=== PATIENT | female | born 1945 | race Caucasian/White ===

== ENCOUNTER 2020-01-05 20:38 | Inpatient (IN) | payer MEDICARE ==
[2020-01-05] MEDS ORDERED: NALOXONE 0.4 MG/ML 1 ML VIAL IV PRN (21:34)
--- NOTE | 2020-01-05 21:34 | ED ---
General Adult HPI - General Chief complaint: Shortness of Breath Stated complaint: SOB Time Seen by Provider: 01/05/20 20:51 Source: patient, RN notes reviewed, old records reviewed (Reviewed report from [facility]) Mode of arrival: ambulatory Limitations: no limitations - History of Present Illness Initial comments: Patient is a pleasant 74-year-old female presenting to the emergency Department as a transfer from [facility] for shortness of breath. Patient was diagnosed with [place]. Patient reportedly had a normal chest x-ray and hypoxia. Patient is a poor historian and provides very little information. Patient states she is breathing fine at this time and denies complaints. - Related Data Allergies Allergy/AdvReac Type Severity Reaction Status Date / Time No Known Allergies Allergy Verified 01/05/20 20:46 Review of Systems ROS Statement: Those systems with pertinent positive or pertinent negative responses have been documented in the HPI. ROS Other: All systems not noted in ROS Statement are negative. Constitutional: Denies: fever Eyes: Denies: eye pain ENT: Denies: ear pain Respiratory: Reports: as per HPI Cardiovascular: Denies: chest pain Endocrine: Reports: fatigue Gastrointestinal: Denies: abdominal pain Genitourinary: Denies: dysuria Musculoskeletal: Denies: back pain Skin: Denies: rash Neurological: Denies: weakness Past Medical History Past Medical History: Hyperlipidemia, Hypertension History of Any Multi-Drug Resistant Organisms: None Reported Past Surgical History: No Surgical Hx Reported Past Psychological History: No Psychological Hx Reported Smoking Status: Never smoker Past Alcohol Use History: None Reported Past Drug Use History: None Reported General Exam Limitations: no limitations General appearance: alert, in no apparent distress Head exam: Present: normocephalic Eye exam: Present: normal appearance Neck exam: Present: normal inspection Respiratory exam: Present: normal lung sounds bilaterally Cardiovascular Exam: Present: regular rate, normal rhythm GI/Abdominal exam: Present: soft. Absent: tenderness Extremities exam: Present: normal inspection. Absent: pedal edema, calf tenderness Neurological exam: Present: alert Expanded Patient oriented to: Present: person. Absent: place Psychiatric exam: Present: flat affect Skin exam: Present: normal color Course Vital Signs 01/05/20 01/05/20 20:46 20:53 Temperature 98 F Pulse Rate 68 Respiratory 16 18 Rate Blood Pressure 149/71 O2 Sat by Pulse 98 Oximetry Medical Decision Making - Medical Decision Making Patient updated. Practitioner Cally was notified for admission, who will admit covering for Dr. Paez, covering for hospital call. Disposition Clinical Impression: COVID-19 Disposition: ADMITTED IP TO THIS HOSP Condition: Serious Is patient prescribed a controlled substance at d/c from ED?: No Referrals: None,Stated [Primary Care Provider] - 1-2 days Decision Time: 21:34
[2020-01-05] MEDS ORDERED: ASPIRIN 81 MG PO STA (21:42)
[2020-01-05] MEDS: ASCORBIC ACID 500 MG TAB PO SCH (22:15)
[2020-01-05] MEDS: CHOLECALCIFEROL 1,000 UNIT TAB PO SCH (22:15)
[2020-01-05] MEDS: ZINC SULFATE 220 MG CAP PO SCH (22:15)
[2020-01-05] MEDS: SODIUM CHLORIDE 0.9% 1,000 ML IV SCH (22:15)
--- NOTE | 2020-01-05 22:30 | XR ---
EXAMINATION TYPE: XR chest 1V portable DATE OF EXAM: 01/05/2020 COMPARISON: 01/05/2020 HISTORY: Pneumonia TECHNIQUE: FINDINGS: There is some patchy peripheral bilateral pulmonary interstitial infiltrates. Heart is top normal in size. There is no definite heart failure. There are chest leads. There is significant arthr itic change in the shoulder joints. Thoracic aorta is atheromatous. IMPRESSION: Peripheral patchy interstitial and airspace pulmonary infiltrates unchanged or slightly w orse than exam earlier today.
[2020-01-05 23:08] LABS: C Reactive Protein 301.3 mg/L (<10.0)
[2020-01-06] MEDS ORDERED: ALBUTEROL HFA INHALER INHALATION SCH (02:00)
[2020-01-06] MEDS: NITROGLYCERIN OINT 1 INCH/GM PACKET TOPICAL SCH ×2 (02:10→09:14)
[2020-01-06] MEDS ORDERED: ENOXAPARIN 30 MG/0.3 ML SYRINGE SQ SCH (09:00)
[2020-01-06] MEDS ORDERED: ASPIRIN 325 MG TAB PO SCH (09:00)
[2020-01-06] MEDS: ASCORBIC ACID 500 MG TAB PO SCH ×2 (09:14→20:47)
[2020-01-06] MEDS: CHOLECALCIFEROL 1,000 UNIT TAB PO SCH (09:14)
[2020-01-06] MEDS: dexAMETHasone 2 MG TAB PO SCH (09:15)
[2020-01-06] MEDS: ZINC SULFATE 220 MG CAP PO SCH (09:15)
[2020-01-06 09:24] LABS: Calcium 8.7 mg/dL (8.4-10.2); Potassium 4.4 mmol/L (3.5-5.1); Total Protein 5.5 g/dL (6.3-8.2)
[2020-01-06 09:44] LABS: Appearance,Urine Cloudy (Clear); Bacteria,Urine Few /hpf; Bilirubin,Urine Negative (Negative); Blood,Urine Negative (Negative); Color,Urine Yellow; Glucose,Urine (UA) Negative (Negative); Ketones,Urine Negative (Negative); Leukocyte Esterase,Urine Moderate (Negative); Mucus,Urine Rare /hpf; Nitrite,Urine Negative (Negative); PH, Urine 5.5 (5.0-8.0); Protein,Urine 2+ (Negative); RBC,Urine 7 /hpf (0-5); Specific Gravity,Urine 1.019 (1.001-1.035); Squamous Epithelial Cell,Urine <1 /hpf (0-4); Urobilinogen,Urine <2.0 mg/dL (<2.0); WBC,Urine 21 /hpf (0-5)
[2020-01-06 10:02] LABS: HCT 34.5 % (34.0-46.0); HGB 11.4 gm/dL (11.4-16.0); MCH 30.9 pg (25.0-35.0); MCHC 32.9 g/dL (31.0-37.0); Mean Platelet Volume 8.2; Platelet Count 192 k/uL (150-450); RBC 3.67 m/uL (3.80-5.40); RDW 13.5 % (11.5-15.5); WBC 10.6 k/uL (3.8-10.6)
[2020-01-06 10:26] LABS: Band Neutrophils % 3 %; Lymphocytes # (M) 0.53 k/uL (1.0-4.8); Monocytes # (M) 0.42 k/uL (0-1.0); Neutrophils % (M) 88 %; Nucleated Red Blood Cells 0 /100 WBC (0-0); Total Cells Counted 100
[2020-01-06] MEDS ORDERED: cloNIDine HCL 0.2 MG TAB PO SCH (11:00)
--- NOTE | 2020-01-06 11:26 | P.CRDCN ---
History of Present Illness Consult date: 01/06/20 History of present illness: CHIEF COMPLAINT: elevated troponins HISTORY OF PRESENT ILLNESS: This is a 74-year old female with a past medical history significant for hypertension and hyperlipidemia. Patient lives in [place], [place]. She states she does not follow with a md physician dermatologist outpatient. We have been asked to see the patient in consultation for abnormal troponins. Patient examined this morning at the bedside. Patient appears very confused this morning and is unable to provide much history. She is having a difficult time answer any questions when asked at the examination. apparently the patient went to [facility] in [facility] with a chief complaint of chest pain. Patient was tested for Covid and found to be positive. She was also found to have an abnormal troponin of 0.223. She was transferred to [facility] for further evaluation. Patient currently denies chest pain or pressure. She denies shortness of breath. Patient is coughing frequently during examination. DIAGNOSTICS: EKG reveals sinus rhythm with signs of acute ischemia. Chest xray peripheral patchy interstitial and airspace pulmonary infiltrates unchanged or slightly worse from exam earlier today. Laboratory data: W BC 10.6. Hemoglobin 11.4. Platelet count 192. Sodium 136. Potassium 4.4. BUN 77. Creatinine 2.18. AST 115. ALT 51. Current home cardiac medications include Zocor 20 mg daily and Catapres 0.2 mg every 8 hours REVIEW OF SYSTEMS: At the time of my exam: CONSTITUTIONAL: Denies fever or chills. HEENT: Denies blurred vision, vision changes, or eye pain. Denies hemoptysis CARDIOVASCULAR: Denies chest pain, orthopnea, PND or palpitations RESPIRATORY: No shortness of breath. GASTROINTESTINAL: Denies abdominal pain. Denies nausea or vomiting. HEMATOLOGIC: Denies bleeding disorders. GENITOURINARY: Denies any blood in urine. SKIN: Denies pruitis. Denies rash. PHYSICAL EXAM: VITAL SIGNS: Reviewed. GENERAL: Well-developed in no acute distress. HEENT: Head is normocephalic. Pupils are equal, round. Sclerae anicteric. Mucous membranes of the mouth are moist. Neck supple. No JVD or thyromegaly LUNGS: Respirations even and unlabored. Lungs diminished. Frequent coughing noted during examination. HEART: Regular rate and rhythm. S1 and S2 heard. ABDOMEN: Soft. Nondistended. Nontender. EXTREMITIES: Normal range of motion. No clubbing or cyanosis. Peripheral pulses intact. No lower extremity edema NEUROLOGIC: Awake and alert. Oriented x 2. Patient having a very hard time completing sentences and answering questions during examination. ASSESSMENT: Acute Covid 19 pneumonia Abnormal troponins, suspect secondary to infectious process due to Covid, doubt acute coronary event Acute kidney injury, baseline creatinine unknown Elevated LFTs Hypertension Hyperlipidemia PLAN: Hold statin secondary to LFTs Obtain 2D echo to assess cardiac structure and function Decrease aspirin to 81 mg daily Discontinue Nitropaste Decrease Catapres to 0.1 mg every 8 hours Add Norvasc 5 mg daily Further recommendations pending patient course Nurse practitioner note has been reviewed by physician. Signing provider agrees with the documented findings, assessment, and plan of care. Past Medical History Past Medical History: Hyperlipidemia, Hypertension History of Any Multi-Drug Resistant Organisms: None Reported Past Surgical History: No Surgical Hx Reported Past Psychological History: No Psychological Hx Reported Smoking Status: Never smoker Past Alcohol Use History: None Reported Past Drug Use History: None Reported Medications and Allergies Home Medications Medication Instructions Recorded Confirmed Type Albuterol Sulfate [Proventil Hfa] 1 puff INHALATION Q4-6H PRN 01/05/20 01/05/20 History Simvastatin [Zocor] 20 mg PO HS 01/05/20 01/05/20 History allopurinoL [Zyloprim] 100 mg PO DAILY 01/05/20 01/05/20 History cloNIDine HCL [Catapres] 0.2 mg PO Q8H 01/05/20 01/05/20 History traMADol HCL 50 mg PO BID PRN 01/05/20 01/05/20 History Allergies Allergy/AdvReac Type Severity Reaction Status Date / Time No Known Allergies Allergy Verified 01/05/20 23:47 Physical Exam Vitals: Vital Signs Temp Pulse Resp BP Pulse Ox 01/06/20 04:18 69 16 148/65 93 L 01/06/20 00:40 70 20 154/86 94 L 01/06/20 00:02 57 L 20 127/62 94 L 01/05/20 23:27 92 L 01/05/20 23:10 61 18 127/67 87 L 01/05/20 22:10 88 20 123/72 91 L 01/05/20 20:53 18 01/05/20 20:46 98 F 68 16 149/71 98 Intake and Output 01/05/20 01/06/20 01/06/20 22:59 06:59 14:59 Other: Weight 95.254 kg Results 01/06/20 07:45 01/06/20 08:55 Cardiac Enzymes 01/05/20 01/05/20 01/05/20 Range/Units 22:00 22:00 22:53 AST (14-36) U/L Lactate Dehydrogenase 1213 H (313-618) U/L Troponin I 0.208 H* 0.192 H* (0.000-0.034) ng/mL 01/06/20 01/06/20 Range/Units 01:52 08:55 AST 115 H (14-36) U/L Lactate Dehydrogenase (313-618) U/L Troponin I 0.173 H* (0.000-0.034) ng/mL Lipids 01/06/20 Range/Units 08:55 Triglycerides 129 (<150) mg/dL Cholesterol 101 (<200) mg/dL HDL Cholesterol 28 L (40-60) mg/dL CBC 01/06/20 Range/Units 07:45 WBC 10.6 (3.8-10.6) k/uL RBC 3.67 L (3.80-5.40) m/uL Hgb 11.4 (11.4-16.0) gm/dL Hct 34.5 (34.0-46.0) % Plt Count 192 (150-450) k/uL Comprehensive Metabolic Panel 01/06/20 Range/Units 08:55 Sodium 136 L (137-145) mmol/L Potassium 4.4 (3.5-5.1) mmol/L Chloride 105 (98-107) mmol/L Carbon Dioxide 17 L (22-30) mmol/L BUN 77 H (7-17) mg/dL Creatinine 2.18 H (0.52-1.04) mg/dL Glucose 138 H (74-99) mg/dL Calcium 8.7 (8.4-10.2) mg/dL AST 115 H (14-36) U/L ALT 51 H (4-34) U/L Alkaline Phosphatase 68 (38-126) U/L Total Protein 5.5 L (6.3-8.2) g/dL Albumin 3.0 L (3.5-5.0) g/dL Current Medications Generic Name Dose Route Start Last Admin Trade Name Freq PRN Reason Stop Dose Admin Acetaminophen 650 mg 01/05/20 21:34 Acetaminophen Tab 325 Mg Tab PO Q6HR PRN Mild Pain or Fever > 100.5 Albuterol Sulfate 2 puff 01/05/20 21:35 Albuterol Hfa Inhaler INHALATION RT-Q6H PRN Shortness Of Breath Or Wheezing Ascorbic Acid 500 mg 01/05/20 21:45 01/06/20 09:14 Ascorbic Acid 500 Mg Tab PO 500 mg BID ANDREA Administration Aspirin 325 mg 01/06/20 09:00 01/06/20 09:14 Aspirin 325 Mg Tab PO 325 mg DAILY ANDREA Administration Cholecalciferol 5,000 unit 01/05/20 21:45 01/06/20 09:14 Cholecalciferol 1,000 Unit Tab PO 5,000 unit DAILY ANDREA Administration Dexamethasone 6 mg 01/06/20 09:00 01/06/20 09:15 Dexamethasone 2 Mg Tab PO 01/16/20 09:01 6 mg DAILY ANDREA Administration Enoxaparin Sodium 30 mg 01/06/20 09:00 01/06/20 09:14 Enoxaparin 30 Mg/0.3 Ml Syringe SQ 30 mg Q24HR ANDREA Administration Sodium Chloride 1,000 mls @ 125 mls/hr 01/05/20 21:45 01/05/20 22:15 Saline 0.9% IV 125 mls/hr .Q8H ANDREA Administration Naloxone HCl 0.2 mg 01/05/20 21:34 Naloxone 0.4 Mg/Ml 1 Ml Vial IV Q2M PRN Opioid Reversal Nitroglycerin 1 inch 01/06/20 00:00 01/06/20 09:14 Nitroglycerin Oint 1 Inch/Gm Packet TOPICAL 1 inch Q6HR ANDREA Administration Zinc Sulfate 220 mg 01/05/20 21:45 01/06/20 09:15 Zinc Sulfate 220 Mg Cap PO 220 mg DAILY ANDREA Administration Intake and Output 01/05/20 01/06/20 01/06/20 22:59 06:59 14:59 Other: Weight 95.254 kg 01/06/20 07:45 01/06/20 08:55
--- NOTE | 2020-01-06 11:41 | ECHOF ---
Referral Reason:LV function, elevated troponins MEASUREMENTS -------- HEIGHT: 170.2 cm WEIGHT: 95.3 kg BP: IVSd: 1.2 cm (0.6 - 1.1) LVIDd: 3.9 cm (3.9 - 5.3) LVPWd: 1.3 cm (0.6 - 1.1) IVSs: 1.5 cm LVIDs: 1.8 cm LVPWs: 1.4 cm LAESV Index (A-L): 17.26 ml/m Ao Diam: 3.0 cm (2.0 - 3.7) AV Cusp: 1.7 cm (1.5 - 2.6) LA Diam: 2.8 cm (2.7 - 3.8) MV E Galo: 0.77 m/s MV DecT: 326 ms MV A Galo: 1.03 m/s MV E/A Ratio: 0.75 AV maxP.65 mmHg AV meanP.27 mmHg AR PHT: 370 ms RAP: 5.00 mmHg RVSP: 14.18 mmHg FINDINGS -------- This was a technically difficult study with suboptimal views. The left ventricular size is normal. There is mild concentric left ventricular hypertrophy. Overa ll left ventricular systolic function is normal with, an EF between 55 - 60 %. Normal LAP Grade 1 D iastolic Dysfunction. The right ventricle is normal in size. The left atrial size is normal. Normal LA size by volume 22+/-6 ml/m2. The right atrial size is normal. Aortic valve is trileaflet and is mildly thickened. There is mild aortic valve sclerosis. Trace a mount of aortic regurgitation. Peak/mean gradient across the Aortic Valve is 14.65mmHg / 9.27mmHg. The mitral valve is normal. The mitral valve leaflets are mildly thickened. There is trace mitral regurgitation. The tricuspid valve appears structurally normal. Trace tricuspid regurgitation present. Right janneth tricular systolic pressure is normal at < 35 mmHg. There is no pulmonic regurgitation present. The aortic root size is normal. IVC Not well visulized. There is no pericardial effusion. CONCLUSIONS -------- 1. The left ventricular size is normal. 2. There is mild concentric left ventricular hypertrophy. 3. Overall left ventricular systolic function is normal with, an EF between 55 - 60 %. 4. Normal LAP Grade 1 Diastolic Dysfunction. 5. Aortic valve is trileaflet and is mildly thickened. 6. There is mild aortic valve sclerosis. 7. Trace amount of aortic regurgitation. 8. Peak/mean gradient across the Aortic Valve is 14.65mmHg / 9.27mmHg. 9. The mitral valve leaflets are mildly thickened. 10. There is trace mitral regurgitation. 11. Trace tricuspid regurgitation present. 12. There is no pericardial effusion. BATTERY PLATE REMOVER: Gabriella Rico RDCS
[2020-01-06] MEDS ORDERED: REMDESIVIR 200 MG in SODIUM CHLORIDE 0.9% 250 ML IVPB ONE (12:00)
[2020-01-06] MEDS ORDERED: VANCOMYCIN IV PER PHARMACY 1 EACH MISC MISCELLANE PRN (12:32)
--- NOTE | 2020-01-06 13:14 | P.HPIM ---
History of Present Illness 74-year-old female is admitted for hypoxia elevated troponins found to have positive Covid. Patient was transferred from outside hospital. Patient at baseline apparently is awake and alert. Patient is oriented 1 at this time. P atient did have fever and shortness of breath because of which patient was sent in here. Patient has elevated urine creatinine of 2.5 baseline is not available but patient apparently has chronic kidney disease. Does follow with a director weights and measures as an outpatient. Patient is found to have mildly elevated troponins of 0.2-3. Patient denied any chest pain although patient is extremely poor historian because of her confusion and hearing problems. His blood cultures from the other hospital came back positive for gram-positive cocci unsure whether it's clusters sore repairs. Patient will be started on vancomycin infectious disease will be consulted may need tube be switched to daptomycin, considering her kidney function Review of Systems Unable to obtain Past Medical History Past Medical History: Hyperlipidemia, Hypertension History of Any Multi-Drug Resistant Organisms: None Reported Past Surgical History: No Surgical Hx Reported Past Psychological History: No Psychological Hx Reported Smoking Status: Never smoker Past Alcohol Use History: None Reported Past Drug Use History: None Reported Medications and Allergies Home Medications Medication Instructions Recorded Confirmed Type Albuterol Sulfate [Proventil Hfa] 1 puff INHALATION Q4-6H PRN 01/05/20 01/05/20 History Simvastatin [Zocor] 20 mg PO HS 01/05/20 01/05/20 History allopurinoL [Zyloprim] 100 mg PO DAILY 01/05/20 01/05/20 History cloNIDine HCL [Catapres] 0.2 mg PO Q8H 01/05/20 01/05/20 History traMADol HCL 50 mg PO BID PRN 01/05/20 01/05/20 History Allergies Allergy/AdvReac Type Severity Reaction Status Date / Time No Known Allergies Allergy Verified 01/05/20 23:47 Physical Exam Vitals: Vital Signs Temp Pulse Resp BP Pulse Ox 01/06/20 04:18 69 16 148/65 93 L 01/06/20 00:40 70 20 154/86 94 L 01/06/20 00:02 57 L 20 127/62 94 L 01/05/20 23:27 92 L 01/05/20 23:10 61 18 127/67 87 L 01/05/20 22:10 88 20 123/72 91 L 01/05/20 20:53 18 01/05/20 20:46 98 F 68 16 149/71 98 Intake and Output 01/05/20 01/06/20 01/06/20 22:59 06:59 14:59 Output Total 300 Balance -300 Output: Urine 300 Other: # Voids 0 # Bowel Movements 0 Weight 95.254 kg PHYSICAL EXAMINATION: GENERAL: The patient is alert and oriented x1, not in any acute distress. Well developed, well nourished. HEENT: Pupils are round and equally reacting to light. EOMI. No scleral icterus. No conjunctival pallor. Normocephalic, atraumatic. No pharyngeal erythema. No thyromegaly. CARDIOVASCULAR: S1 and S2 present. No murmurs, rubs, or gallops. PULMONARY: Chest is clear to auscultation, no wheezing or crackles. ABDOMEN: Soft, nontender, nondistended, normoactive bowel sounds. No palpable organomegaly. MUSCULOSKELETAL: No joint swelling or deformity. EXTREMITIES: No cyanosis, clubbing, or pedal edema. NEUROLOGICAL: Gross neurological examination did not reveal any focal deficits. SKIN: No rashes. Note: Because of [place] [id number] isolation, some of the history and physical exam findings are indirect and obtained from nursing staff, and other physician examinations to avoid unnecessary contact with the patient. Results CBC & Chem 7: 01/06/20 07:45 01/06/20 08:55 Labs: Abnormal Lab Results - Last 24 Hours (Table) 01/05/20 01/05/20 01/05/20 Range/Units 22:00 22:00 22:53 RBC (3.80-5.40) m/uL Neutrophils # (Manual) (1.3-7.7) k/uL Lymphocytes # (Manual) (1.0-4.8) k/uL Sodium (137-145) mmol/L Carbon Dioxide (22-30) mmol/L BUN (7-17) mg/dL Creatinine (0.52-1.04) mg/dL Glucose (74-99) mg/dL AST (14-36) U/L ALT (4-34) U/L Lactate Dehydrogenase 1213 H (313-618) U/L Troponin I 0.208 H* 0.192 H* (0.000-0.034) ng/mL C-Reactive Protein 301.3 H (<10.0) mg/L Total Protein (6.3-8.2) g/dL Albumin (3.5-5.0) g/dL HDL Cholesterol (40-60) mg/dL Urine Appearance (Clear) Urine Protein (Negative) Ur Leukocyte Esterase (Negative) Urine RBC (0-5) /hpf Urine WBC (0-5) /hpf Urine Bacteria (None) /hpf Urine Mucus (None) /hpf 01/06/20 01/06/20 01/06/20 Range/Units 01:52 07:45 08:00 RBC 3.67 L (3.80-5.40) m/uL Neutrophils # (Manual) 9.60 H (1.3-7.7) k/uL Lymphocytes # (Manual) 0.53 L (1.0-4.8) k/uL Sodium (137-145) mmol/L Carbon Dioxide (22-30) mmol/L BUN (7-17) mg/dL Creatinine (0.52-1.04) mg/dL Glucose (74-99) mg/dL AST (14-36) U/L ALT (4-34) U/L Lactate Dehydrogenase (313-618) U/L Troponin I 0.173 H* (0.000-0.034) ng/mL C-Reactive Protein (<10.0) mg/L Total Protein (6.3-8.2) g/dL Albumin (3.5-5.0) g/dL HDL Cholesterol (40-60) mg/dL Urine Appearance Cloudy H (Clear) Urine Protein 2+ H (Negative) Ur Leukocyte Esterase Moderate H (Negative) Urine RBC 7 H (0-5) /hpf Urine WBC 21 H (0-5) /hpf Urine Bacteria Few H (None) /hpf Urine Mucus Rare H (None) /hpf 01/06/20 Range/Units 08:55 RBC (3.80-5.40) m/uL Neutrophils # (Manual) (1.3-7.7) k/uL Lymphocytes # (Manual) (1.0-4.8) k/uL Sodium 136 L (137-145) mmol/L Carbon Dioxide 17 L (22-30) mmol/L BUN 77 H (7-17) mg/dL Creatinine 2.18 H (0.52-1.04) mg/dL Glucose 138 H (74-99) mg/dL AST 115 H (14-36) U/L ALT 51 H (4-34) U/L Lactate Dehydrogenase (313-618) U/L Troponin I (0.000-0.034) ng/mL C-Reactive Protein (<10.0) mg/L Total Protein 5.5 L (6.3-8.2) g/dL Albumin 3.0 L (3.5-5.0) g/dL HDL Cholesterol 28 L (40-60) mg/dL Urine Appearance (Clear) Urine Protein (Negative) Ur Leukocyte Esterase (Negative) Urine RBC (0-5) /hpf Urine WBC (0-5) /hpf Urine Bacteria (None) /hpf Urine Mucus (None) /hpf Assessment and Plan Plan: -Shortness of breath: Probably secondary to covid 19 pneumonia. Patient was started on Decadron and Remdesivir -Sepsis and bacteremia: Patient has gram-positive bacteremia patient will be started on vancomycin infectious disease will be consulted. Cultures today and tomorrow. Patient may have seconded bacterial pneumonia from a Covid 19 -Toxic encephalopathy, altered mental status: Secondary to infection -Elevated troponin secondary to infection and renal failure -Possible difficulty renal failure patient does have chronic kidney disease unable to stage chronic kidney disease is at baseline is not known. Patient will continued on IV fluids -Up attention -Hyperlipidemia -DVT prophylaxis with heparin as patient has renal failure Lovenox is probably not appropriate
[2020-01-06] MEDS ORDERED: VANCOMYCIN 1,500 MG in SODIUM CHLORIDE 0.9% 250 ML IVPB ONE (14:00)
[2020-01-06] MEDS: SODIUM CHLORIDE 0.9% 1,000 ML IV SCH ×3 (15:03→22:46)
[2020-01-06] MEDS: amLODIPine 5 MG TAB PO SCH (15:08)
[2020-01-06] MEDS: cloNIDine HCL 0.1 MG TAB PO SCH ×3 (15:08→22:41)
[2020-01-06 20:18] LABS: Glucose,Whole Blood 211 mg/dL (75-99)
[2020-01-06] MEDS: HEPARIN SODIUM,PORCINE 5,000 UNIT/ML 1 ML VIAL SQ SCH (20:47)
[2020-01-06] MEDS: INSULIN ASPART (NovoLOG) 100 UNIT/ML VIAL SQ SCH (20:47)
[2020-01-06] MEDS: ACETAMINOPHEN TAB 325 MG TAB PO PRN (20:54)
--- NOTE | 2020-01-07 02:21 | CONS ---
CONSULTATION DATE OF SERVICE: 01/06/2020 REASON FOR CONSULTATION: Bacteremia. HISTORY OF PRESENT ILLNESS: The patient is a 74-year-old female who presented to [facility] apparently for fever and increasing shortness of breath. The patient did have a rapid COVID test which was positive at that facility. The patient apparently had a chest x-ray with multifocal infiltrate with concern for COVID-19 pneumonia. The patient was transferred to [facility] last evening. On arrival to this facility, the patient was afebrile. The patient was hypoxic with O2 saturation down to 87% on room air. The patient did have supplemental oxygen placed. Patient did have a normal white count with lymphopenia. She also had elevated creatinine 2.18. Elevated liver exams. Procalcitonin elevated 1.54 and CRP of 301.3. The patient did have a chest x- ray which did show peripheral patchy interstitial airspace pulmonary infiltrate. The patient has been started on remdesivir, dexamethasone, zinc. The patient's blood cultures were drawn at the outside facility, came back positive with gram-positive cocci. The patient was started on vancomycin. Because of her kidney function, Infectious Disease was consulted for further management of her antibiotic therapy. The patient has been Unable to provide history, most information has been obtained from review of chart and talking to the nursing staff. However, the patient currently denies having any chest pain. She did have some cough, but not bringing any sputum. Patient denies any nausea, no vomiting. No abdominal pain or diarrhea. The patient is currently not having skin rashes or any joint swelling. REVIEW OF SYSTEMS: Positive points have been mentioned in HPI. Rest of systems negative, PAST MEDICAL HISTORY: Hypertension, hyperlipidemia. PAST SURGICAL HISTORY: No surgeries. SOCIAL HISTORY: No history of smoking, drinking or drug use. FAMILY HISTORY: No pertinent findings noticed. ALLERGIES: No known drug allergies. MEDICATIONS: Medications include the patient is currently on Tylenol, Ventolin, Norvasc, Catapres, dexamethasone, heparin subcu, NovoLog, vancomycin pharmacy to dose, remdesivir, zinc sulfate. PHYSICAL EXAMINATION: Blood pressure 155/92 with a pulse of 90, temperature 98. She is 91% on 8 L high-flow nasal oxygen. General description is an elderly female lying in bed in no distress. No tachypnea or accessory muscle of respiration use. HEENT: Examination shows slight pallor. No scleral icterus. Oral mucous membranes dry. No pharyngeal erythema or thrush. NECK: Trachea central. No thyromegaly. LUNGS: Unlabored breathing, decreased breath sounds at the bases. No wheeze. HEART: S1, S2. Regular rate and rhythm. ABDOMEN: Soft, no tenderness. No guarding or rigidity. EXTREMITIES: No edema of feet. SKIN EXAMINATION: No rash or mass palpable. NEUROLOGICAL: The patient is awake, alert, oriented x3. Mood and affect normal. LABS: Hemoglobin 11.4, white count 10.6, BUN of 77, creatinine 2.18. Liver enzymes are elevated. Procalcitonin was also elevated. Urine is positive. Culture pending. Outside culture positive for gram-positive cocci. DIAGNOSTIC IMPRESSION: 1. Patient with a positive blood culture with gram-positive in this patient admitted to the hospital with increasing shortness of breath with evidence of pneumonia likely related to COVID-19. However, the patient did have elevated procalcitonin underlying component secondary bacterial pneumonia and possibly related to aspiration not entirely excluded. 2. Patient with borderline kidney function high risk of nephrotoxicity from vancomycin. PLAN: 1. Blood cultures will be repeated to document clearance of bacteremia. 2. We will try to obtain final on the blood cultures from the outside facility in the morning. 3. With daptomycin no effect on the pneumonia, we will keep the patient on vancomycin, however, monitor her kidney function very closely. 4. Continue with the remdesivir, dexamethasone, heparin and zinc sulfate for underlying COVID-19 pneumonia. 5. We will follow on clinical condition to further adjust medication if needed. Thank you for this consultation. Will follow this patient along with you. MMODL / IJN: [id number] / BIN
[2020-01-07 06:32] LABS: Glucose,Whole Blood 177 mg/dL (75-99)
[2020-01-07] MEDS: INSULIN ASPART (NovoLOG) 100 UNIT/ML VIAL SQ SCH ×4 (06:51→20:45)
--- NOTE | 2020-01-07 07:19 | XR ---
EXAMINATION TYPE: XR chest 1V portable DATE OF EXAM: 01/07/2020 HISTORY: Shortness of breath. COMPARISON: 01/05/2020 TECHNIQUE: Single view of the chest is submitted. FINDINGS: Demonstrated are scattered senescent parenchymal change. Interstitial pneumonia is noted within the left perihilar left upper lobe regions as well as the henry phery of the right lung essentially unchanged from prior study. The heart is stable. Hilar and mediastinal structures are within normal limits. Degenerative changes are seen of the dorsal spine. IMPRESSION: 1. Interstitial pneumonia is noted within the left perihilar left upper lobe regions as well as the periphery of the right lung essentially unchanged from prior study.
[2020-01-07] MEDS: SODIUM CHLORIDE 0.9% 1,000 ML IV SCH ×2 (08:30→11:19)
[2020-01-07] MEDS: CHOLECALCIFEROL 1,000 UNIT TAB PO SCH (08:31)
[2020-01-07] MEDS: amLODIPine 5 MG TAB PO SCH (08:31)
[2020-01-07] MEDS: cloNIDine HCL 0.1 MG TAB PO SCH ×2 (08:31→20:45)
[2020-01-07] MEDS: ASPIRIN 81 MG PO SCH (08:31)
[2020-01-07] MEDS: HEPARIN SODIUM,PORCINE 5,000 UNIT/ML 1 ML VIAL SQ SCH ×2 (08:31→20:45)
[2020-01-07] MEDS: dexAMETHasone 2 MG TAB PO SCH (08:31)
[2020-01-07] MEDS: ASCORBIC ACID 500 MG TAB PO SCH ×2 (08:31→20:45)
[2020-01-07] MEDS: ZINC SULFATE 220 MG CAP PO SCH (08:32)
[2020-01-07 08:48] LABS: Albumin 3.3 g/dL (3.5-5.0); Calcium 8.8 mg/dL (8.4-10.2); Potassium 4.2 mmol/L (3.5-5.1); Total Bilirubin 0.9 mg/dL (0.2-1.3)
[2020-01-07 08:59] LABS: HCT 37.8 % (34.0-46.0); HGB 12.2 gm/dL (11.4-16.0); MCH 29.9 pg (25.0-35.0); MCHC 32.2 g/dL (31.0-37.0); MCV 92.9 fL (80.0-100.0); Mean Platelet Volume 8.2; Platelet Count 375 k/uL (150-450); RBC 4.07 m/uL (3.80-5.40); RDW 13.7 % (11.5-15.5); WBC 27.1 k/uL (3.8-10.6)
[2020-01-07] MEDS ORDERED: VANCOMYCIN 1,500 MG in SODIUM CHLORIDE 0.9% 250 ML IVPB ONE (09:00)
[2020-01-07 10:23] LABS: C Reactive Protein 192.3 mg/L (<10.0)
[2020-01-07 11:14] LABS: Glucose,Whole Blood 182 mg/dL (75-99)
[2020-01-07 12:02] LABS: Band Neutrophils % 1 %; Lymphocytes # (M) 0.81 k/uL (1.0-4.8); Monocytes # (M) 1.36 k/uL (0-1.0); Myelocytes # (M) 0.54 k/uL (0); Myelocytes % 2 %; Neutrophils % (M) 91 %; Nucleated Red Blood Cells 0 /100 WBC (0-0); Total Cells Counted 200
[2020-01-07 12:04] LABS: Anisocytosis (M) Present; Poikilocytosis (M) Present; Toxic Granulation Present
[2020-01-07] MEDS: REMDESIVIR 100 MG in SODIUM CHLORIDE 0.9% 250 ML IVPB SCH (12:14)
--- NOTE | 2020-01-07 13:36 | P.PN ---
Subjective Progress Note Date: 01/07/20 CHIEF COMPLAINT: elevated troponins HISTORY OF PRESENT ILLNESS: Patient examined this morning. She is sitting up in the chair. She remains confused. She denies chest pain or pressure. She reports mild shortness of breath. Echocardiogram completed reveals EF 55-60%, and trace tricuspid regurgitation. Chest x-ray this morning revealed interstitial pneumonia within the left perihilar left upper lobe regions as well as the periphery of the right lung essentially unchanged from prior study. Patients blood pressure 139/67. Heart rate in the 80s. PHYSICAL EXAM: VITAL SIGNS: Reviewed. GENERAL: Well-developed in no acute distress. HEENT: Head is normocephalic. Pupils are equal, round. Sclerae anicteric. Mucous membranes of the mouth are moist. Neck supple. No JVD or thyromegaly LUNGS: Respirations even and unlabored. Lungs diminished. Frequent coughing noted during examination. HEART: Regular rate and rhythm. S1 and S2 heard. ABDOMEN: Soft. Nondistended. Nontender. EXTREMITIES: Normal range of motion. No clubbing or cyanosis. Peripheral pulses intact. No lower extremity edema NEUROLOGIC: Awake and alert. Oriented x 2. Patient having a very hard time completing sentences and answering questions during examination. ASSESSMENT: Acute Covid 19 pneumonia Abnormal troponins, suspect secondary to infectious process due to Covid, doubt acute coronary event Acute kidney injury, baseline creatinine unknown Elevated LFTs Hypertension Hyperlipidemia Positive blood cultures PLAN: Hold statin secondary to LFTs Decrease Catapres 0.1 mg to BID Continue Norvasc Further recommendations pending patient course Nurse practitioner note has been reviewed by physician. Signing provider agrees with the documented findings, assessment, and plan of care. Objective - Vital Signs Vital signs: Vital Signs Temp 98.3 F 01/07/20 11:49 Pulse 82 01/07/20 11:49 Resp 19 01/07/20 11:49 BP 139/67 01/07/20 11:49 Pulse Ox 93 L 01/07/20 11:49 Intake & Output 01/06/20 01/07/20 01/07/20 18:59 06:59 18:59 Intake Total 120 625 Output Total 700 Balance -580 625 Weight 78.5 kg Intake: Intake, IV Titration 625 Amount Sodium Chloride 0.9% 1, 375 000 ml @ 125 mls/hr IV . Q8H [facility] Rx#:[id number] Vancomycin 1,500 mg In 250 Sodium Chloride 0.9% 250 ml @ 125 mls/hr IVPB ONCE ONE Rx#:[id number] Oral 120 Output: Urine 700 Other: Voiding Method Toilet Bedside Commode Bedside Commode Bedside Commode Diaper Diaper Incontinent Incontinent Incontinent # Voids 0 1 # Bowel Movements 0 0 - Labs CBC & Chem 7: 01/07/20 07:30 01/07/20 07:30 Labs: Abnormal Lab Results - Last 24 Hours (Table) 01/05/20 01/06/20 01/07/20 Range/Units 22:00 20:16 06:30 WBC (3.8-10.6) k/uL Neutrophils # (Manual) (1.3-7.7) k/uL Lymphocytes # (Manual) (1.0-4.8) k/uL Monocytes # (Manual) (0-1.0) k/uL Myelocytes # (Manual) (0) k/uL Chloride (98-107) mmol/L Carbon Dioxide (22-30) mmol/L BUN (7-17) mg/dL Creatinine (0.52-1.04) mg/dL Glucose (74-99) mg/dL POC Glucose (mg/dL) 211 H 177 H (75-99) mg/dL AST (14-36) U/L ALT (4-34) U/L Troponin I (0.000-0.034) ng/mL C-Reactive Protein (<10.0) mg/L Total Protein (6.3-8.2) g/dL Albumin (3.5-5.0) g/dL Procalcitonin 1.54 H (0.02-0.09) ng/mL 01/07/20 01/07/20 01/07/20 Range/Units 07:30 07:30 07:30 WBC 27.1 H (3.8-10.6) k/uL Neutrophils # (Manual) 24.90 H (1.3-7.7) k/uL Lymphocytes # (Manual) 0.81 L (1.0-4.8) k/uL Monocytes # (Manual) 1.36 H (0-1.0) k/uL Myelocytes # (Manual) 0.54 H (0) k/uL Chloride 108 H (98-107) mmol/L Carbon Dioxide 14 L (22-30) mmol/L BUN 87 H (7-17) mg/dL Creatinine 2.06 H (0.52-1.04) mg/dL Glucose 157 H (74-99) mg/dL POC Glucose (mg/dL) (75-99) mg/dL AST 102 H (14-36) U/L ALT 47 H (4-34) U/L Troponin I 0.266 H* (0.000-0.034) ng/mL C-Reactive Protein 192.3 H (<10.0) mg/L Total Protein 6.0 L (6.3-8.2) g/dL Albumin 3.3 L (3.5-5.0) g/dL Procalcitonin (0.02-0.09) ng/mL 01/07/20 Range/Units 10:59 WBC (3.8-10.6) k/uL Neutrophils # (Manual) (1.3-7.7) k/uL Lymphocytes # (Manual) (1.0-4.8) k/uL Monocytes # (Manual) (0-1.0) k/uL Myelocytes # (Manual) (0) k/uL Chloride (98-107) mmol/L Carbon Dioxide (22-30) mmol/L BUN (7-17) mg/dL Creatinine (0.52-1.04) mg/dL Glucose (74-99) mg/dL POC Glucose (mg/dL) 182 H (75-99) mg/dL AST (14-36) U/L ALT (4-34) U/L Troponin I (0.000-0.034) ng/mL C-Reactive Protein (<10.0) mg/L Total Protein (6.3-8.2) g/dL Albumin (3.5-5.0) g/dL Procalcitonin (0.02-0.09) ng/mL Microbiology - Last 24 Hours (Table) 01/06/20 08:00 Urine Culture - Preliminary Urine,Voided
[2020-01-07] MEDS: ALBUTEROL HFA INHALER INHALATION PRN ×2 (16:09→19:40)
[2020-01-07 16:47] LABS: Glucose,Whole Blood 201 mg/dL (75-99)
[2020-01-07] MEDS ORDERED: SODIUM BICARB 8.4% 50 ML SYR (1 MEQ/ML) IV STA (17:08)
--- NOTE | 2020-01-07 17:10 | P.CNPUL ---
History of Present Illness Consult date: 01/07/20 Reason for consult: pneumonia History of present illness: A 74-year-old female patient, very poor historian with what seems to be advanced dementia in addition to history of hypertension and hyperlipidemia was coming in for shortness of breath and hypoxemia and this has been confirmed to be related to COVID 19 infection/pneumonia. The patient was transferred from an outside hospital. The patient is unable to give any further history. Review of her chest x-ray shows that the patient is a peripheral patchy pulmonary interstitial airspace disease infiltrates bilaterally and the patient is currently on 8 L of oxygen by nasal cannula to maintain a saturation above 90%. Her current pulse ox is around 93%. The white cell count is at 10.6. The patient also has a renal failure and the chronicity of the renal failure is not established. Her previous creatinine is unknown to me at this point in time. She also has a mild component of anion gap metabolic acidosis with a anion gap of 14 and a serum bicarb level of 17. LDH is 1213 and the patient is a CRP of 301. Also, the patient had a troponin leak with troponin levels being at 0.1 0.1 and 0.2 respectively. Pro calcitonin level was elevated at 1.54. She is afebrile. The blood cultures from the outside hospital showing gram-positive cocci and is not sure if it was in clusters overnight. The patient was started on vancomycin as an empiric antibiotic coverage. In terms of Covid 19 infection, the patient was started on a combination of Decadron and Remdesivir Review of Systems poor historian ROS unobtainable: due to mental status Constitutional: Reports fatigue, Reports lethargy, Reports weakness Eyes: denies as per HPI, denies blurred vision, denies bulging eye, denies decreased vision, denies diplopia, denies discharge, denies dry eye, denies irritation, denies itching, denies pain, denies photophobia, denies loss of peripheral vision, denies loss of vision, denies tunnel vision/blind spots Ears: deny: decreased hearing, ear discharge, earache, tinnitus Ears, nose, mouth and throat: Reports as per HPI Breasts: absent: as per HPI, change in shape, gynecomastia, masses, nipple di scharge, pain, skin changes, swelling Cardiovascular: Reports as per HPI Respiratory: Reports cough, Reports dyspnea Gastrointestinal: Reports as per HPI Genitourinary: Reports as per HPI Menstruation: Reports as per HPI Musculoskeletal: Reports as per HPI Musculoskeletal: absent: ankle pain, ankle stiffness, ankle swelling Integumentary: Reports as per HPI Neurological: Reports as per HPI, Reports memory loss, Reports weakness Psychiatric: Reports as per HPI Endocrine: Reports as per HPI Hematologic/Lymphatic: Reports as per HPI Allergic/Immunologic: Reports as per HPI Past Medical History Past Medical History: Hyperlipidemia, Hypertension History of Any Multi-Drug Resistant Organisms: None Reported Past Surgical History: No Surgical Hx Reported Past Psychological History: No Psychological Hx Reported Smoking Status: Never smoker Past Alcohol Use History: None Reported Past Drug Use History: None Reported - Past Family History Father Family Medical History: Pulmonary Embolus Additional Family Medical History / Comment(s): Mother History Unknown: Yes Additional Family Medical History / Comment(s): " from old age" age 93 Daughter(s) Family Medical History: Hypertension Medications and Allergies Home Medications Medication Instructions Recorded Confirmed Type Albuterol Sulfate [Proventil Hfa] 1 puff INHALATION Q4-6H PRN 01/05/20 01/05/20 History Simvastatin [Zocor] 20 mg PO HS 01/05/20 01/05/20 History allopurinoL [Zyloprim] 100 mg PO DAILY 01/05/20 01/05/20 History cloNIDine HCL [Catapres] 0.2 mg PO Q8H 01/05/20 01/05/20 History traMADol HCL 50 mg PO BID PRN 01/05/20 01/05/20 History Allergies Allergy/AdvReac Type Severity Reaction Status Date / Time No Known Allergies Allergy Verified 01/05/20 23:47 Physical Exam Vitals: Vital Signs Temp Pulse Resp BP Pulse Ox 01/06/20 04:18 69 16 148/65 93 L 01/06/20 00:40 70 20 154/86 94 L 01/06/20 00:02 57 L 20 127/62 94 L 01/05/20 23:27 92 L 01/05/20 23:10 61 18 127/67 87 L 01/05/20 22:10 88 20 123/72 91 L 01/05/20 20:53 18 01/05/20 20:46 98 F 68 16 149/71 98 Intake and Output 01/05/20 01/06/20 01/06/20 22:59 06:59 14:59 Other: Weight 95.254 kg Results - Laboratory Findings CBC and BMP: 01/07/20 07:30 01/07/20 07:30 Abnormal lab findings: Abnormal Labs 01/05/20 01/05/20 01/05/20 22:00 22:00 22:53 RBC Neutrophils # (Manual) Lymphocytes # (Manual) Sodium Carbon Dioxide BUN Creatinine Glucose AST ALT Lactate Dehydrogenase 1213 H Troponin I 0.208 H* 0.192 H* C-Reactive Protein 301.3 H Total Protein Albumin HDL Cholesterol Urine Appearance Urine Protein Ur Leukocyte Esterase Urine RBC Urine WBC Urine Bacteria Urine Mucus 01/06/20 01/06/20 01/06/20 01:52 07:45 08:00 RBC 3.67 L Neutrophils # (Manual) 9.60 H Lymphocytes # (Manual) 0.53 L Sodium Carbon Dioxide BUN Creatinine Glucose AST ALT Lactate Dehydrogenase Troponin I 0.173 H* C-Reactive Protein Total Protein Albumin HDL Cholesterol Urine Appearance Cloudy H Urine Protein 2+ H Ur Leukocyte Esterase Moderate H Urine RBC 7 H Urine WBC 21 H Urine Bacteria Few H Urine Mucus Rare H 01/06/20 08:55 RBC Neutrophils # (Manual) Lymphocytes # (Manual) Sodium 136 L Carbon Dioxide 17 L BUN 77 H Creatinine 2.18 H Glucose 138 H AST 115 H ALT 51 H Lactate Dehydrogenase Troponin I C-Reactive Protein Total Protein 5.5 L Albumin 3.0 L HDL Cholesterol 28 L Urine Appearance Urine Protein Ur Leukocyte Esterase Urine RBC Urine WBC Urine Bacteria Urine Mucus - Diagnostic Findings Chest x-ray: image reviewed Assessment and Plan Plan: 1 Acute bilateral COVID 19 pneumonia 2 Acute hypoxic respiratory failure, currently on a daily Zaroxolyn nasal cannula 3 SELENE versus chronic kidney failure 4 Non anion gap meabolic acidosis, with anion gap of 14 and his serum bicarbonate was 17 5 altered mental status acute versus chronic as she may have an underlying cognitive impairment dementia 6 hypertension 7 troponin leak 8, hyperlipidemia 9 elevated folic acid level. Consider possibility of a superinfection with marcos teria. The patient had a positive blood culture gram-positive cocci and the patient was given a dose of vancomycin Plan Keep the patient adequately oxygenated with oxygen 8 L per minute nasal cannula Continue the combination of Decadron and Remdesivir regarding the Covid 19 related pneumonia Repeat blood cultures Cardiology consultation regarding the abnormal troponins Monitor renal function We'll continue to follow. Prognosis poor baseline above-mentioned comorbidities. Monitor respiratory status very closely. Consult ID. consult cardiology regarding troponin leak. Echocardiogram is in progress.
--- NOTE | 2020-01-07 17:28 | P.PN ---
Subjective Progress Note Date: 01/07/20 Principal diagnosis: Acute bilateral CoVID 19 pneumonia A 74-year-old female patient, very poor historian with what seems to be advanced dementia in addition to history of hypertension and hyperlipidemia was coming in for shortness of breath and hypoxemia and this has been confirmed to be related to COVID 19 infection/pneumonia. The patient was transferred from an outside hospital. The patient is unable to give any further history. Review of her chest x-ray shows that the patient is a peripheral patchy pulmonary interstitial airspace disease infiltrates bilaterally and the patient is currently on 8 L of oxygen by nasal cannula to maintain a saturation above 90%. Her current pulse ox is around 93%. The white cell count is at 10.6. The patient also has a renal failure and the chronicity of the renal failure is not established. Her previous creatinine is unknown to me at this point in time. She also has a mild component of anion gap metabolic acidosis with a anion gap of 14 and a serum bicarb level of 17. LDH is 1213 and the patient is a CRP of 301. Also, the patient had a troponin leak with troponin levels being at 0.1 0.1 and 0.2 respectively. Pro calcitonin level was elevated at 1.54. She is afebrile. The blood cultures from the outside hospital showing gram-positive cocci and is not sure if it was in clusters overnight. The patient was started on vancomycin as an empiric antibiotic coverage. In terms of Covid 19 infection, the patient was started on a combination of Decadron and Remdesivir The patient is seen today 01/07/2020 in follow-up on selective care unit. She does have advanced dementia and is a poor historian. She is currently resting fairly comfortably in bed. She is on 8 L high flow nasal cannula to maintain O2 saturations in the 90s. She's afebrile. Hemodynamically stable. White count 27.1. Hemoglobin 12.2. Lymphocytes 0.81. Sodium 139. Potassium 4.2. Bicarb 14. Creatinine 2.06. AST 102. ALT 47. Troponin 0.266. C-reactive protein 192. Pro calcitonin 1.45. She remains on Decadron, vitamin C, vitamin D, zinc. She is receiving day #2 of Remdesivir. Objective - Vital Signs Vital signs: Vital Signs Temp 98.3 F 11/18/20 11:49 Pulse 82 01/07/20 11:49 Resp 19 01/07/20 16:00 BP 139/67 01/07/20 11:49 Pulse Ox 93 L 01/07/20 11:49 Intake & Output 01/06/20 01/07/20 01/07/20 18:59 06:59 18:59 Intake Total 120 625 Output Total 700 Balance -580 625 Weight 78.5 kg Intake: Intake, IV Titration 625 Amount Sodium Chloride 0.9% 1, 375 000 ml @ 125 mls/hr IV . Q8H [facility] Rx#:[id number] Vancomycin 1,500 mg In 250 Sodium Chloride 0.9% 250 ml @ 125 mls/hr IVPB ONCE ONE Rx#:[id number] Oral 120 Output: Urine 700 Other: Voiding Method Toilet Bedside Commode Bedside Commode Bedside Commode Diaper Diaper Incontinent Incontinent Incontinent # Voids 0 1 1 # Bowel Movements 0 0 - Exam GENERAL: This is a 74-year-old female patient is alert and oriented x1, not in any acute distress. Well developed, well nourished. Currently on 8 L high flow nasal cannula. HEENT: Pupils are round and equally reacting to light. EOMI. No scleral icterus. No conjunctival pallor. Normocephalic, atraumatic. No pharyngeal erythema. No thyromegaly. CARDIOVASCULAR: S1 and S2 present. No murmurs, rubs, or gallops. PULMONARY: Lungs with bilateral scattered rhonchi ABDOMEN: Soft, nontender, nondistended, normoactive bowel sounds. No palpable organomegaly. MUSCULOSKELETAL: No joint swelling or deformity. EXTREMITIES: No cyanosis, clubbing, or pedal edema. NEUROLOGICAL: Gross neurological examination did not reveal any focal deficits. SKIN: No rashes. - Labs CBC & Chem 7: 01/07/20 07:30 01/07/20 07:30 Labs: Abnormal Lab Results - Last 24 Hours (Table) 01/06/20 01/07/20 01/07/20 Range/Units 20:16 06:30 07:30 WBC (3.8-10.6) k/uL Neutrophils # (Manual) (1.3-7.7) k/uL Lymphocytes # (Manual) (1.0-4.8) k/uL Monocytes # (Manual) (0-1.0) k/uL Myelocytes # (Manual) (0) k/uL Chloride (98-107) mmol/L Carbon Dioxide (22-30) mmol/L BUN (7-17) mg/dL Creatinine (0.52-1.04) mg/dL Glucose (74-99) mg/dL POC Glucose (mg/dL) 211 H 177 H (75-99) mg/dL AST (14-36) U/L ALT (4-34) U/L Troponin I 0.266 H* (0.000-0.034) ng/mL C-Reactive Protein (<10.0) mg/L Total Protein (6.3-8.2) g/dL Albumin (3.5-5.0) g/dL Procalcitonin (0.02-0.09) ng/mL 01/07/20 01/07/20 01/07/20 Range/Units 07:30 07:30 07:30 WBC 27.1 H (3.8-10.6) k/uL Neutrophils # (Manual) 24.90 H (1.3-7.7) k/uL Lymphocytes # (Manual) 0.81 L (1.0-4.8) k/uL Monocytes # (Manual) 1.36 H (0-1.0) k/uL Myelocytes # (Manual) 0.54 H (0) k/uL Chloride 108 H (98-107) mmol/L Carbon Dioxide 14 L (22-30) mmol/L BUN 87 H (7-17) mg/dL Creatinine 2.06 H (0.52-1.04) mg/dL Glucose 157 H (74-99) mg/dL POC Glucose (mg/dL) (75-99) mg/dL AST 102 H (14-36) U/L ALT 47 H (4-34) U/L Troponin I (0.000-0.034) ng/mL C-Reactive Protein 192.3 H (<10.0) mg/L Total Protein 6.0 L (6.3-8.2) g/dL Albumin 3.3 L (3.5-5.0) g/dL Procalcitonin 1.45 H (0.02-0.09) ng/mL 01/07/20 01/07/20 Range/Units 10:59 16:25 WBC (3.8-10.6) k/uL Neutrophils # (Manual) (1.3-7.7) k/uL Lymphocytes # (Manual) (1.0-4.8) k/uL Monocytes # (Manual) (0-1.0) k/uL Myelocytes # (Manual) (0) k/uL Chloride (98-107) mmol/L Carbon Dioxide (22-30) mmol/L BUN (7-17) mg/dL Creatinine (0.52-1.04) mg/dL Glucose (74-99) mg/dL POC Glucose (mg/dL) 182 H 201 H (75-99) mg/dL AST (14-36) U/L ALT (4-34) U/L Troponin I (0.000-0.034) ng/mL C-Reactive Protein (<10.0) mg/L Total Protein (6.3-8.2) g/dL Albumin (3.5-5.0) g/dL Procalcitonin (0.02-0.09) ng/mL Microbiology - Last 24 Hours (Table) 01/06/20 08:00 Urine Culture - Final Urine,Voided Assessment and Plan Assessment: 1 Acute bilateral COVID 19 pneumonia 2 Acute hypoxic respiratory failure, currently on a daily Zaroxolyn nasal cannula 3 SELENE versus chronic kidney failure 4 Non anion gap meabolic acidosis, with anion gap of 17 and his serum bicarbonate was 14 5 Altered mental status acute versus chronic as she may have an underlying cognitive impairment dementia 6 Hypertension 7 Troponin leak 8 Hyperlipidemia 9 Elevated folic acid level. Consider possibility of a superinfection with bacteria. The patient had a positive blood culture gram-positive cocci and the patient was given a dose of vancomycin Plan The patient was seen and evaluated by Dr. Chavis Chest x-ray and labs reviewed Vancomycin given today We will give her 2 A of bicarb and initiate a bicarb drip Patient is still on 8 L high flow nasal cannula Titrate down as tolerated Continue the current treatment plan including Remdesivir and Decadron Poor prognosis based on the above-mentioned multiple comorbidities We'll continue to follow and make further recommendations based on her clinical status. I, the cosigning physician, performed a history & physical examination of the patient. Lungs sounds with bilateral scattered rhonchi. Maintaining good O2 saturations in the 90s on 8 L/m per nasal cannula. I discussed the assessment and plan of care with my nurse practitioner, Candi Horton. I attest to the above note as dictated by her.
--- NOTE | 2020-01-07 17:33 | P.PN ---
Subjective 74-year-old female is admitted for hypoxia elevated troponins found to have positive Covid. Patient was transferred from outside hospital. Patient at baseline apparently is awake and alert. Patient is oriented 1 at this time. Patient did have fever and shortness of breath because of which patient was sent in here. Patient has elevated urine creatinine of 2.5 baseline is not available but patient apparently has chronic kidney disease. Does follow with a jig grinder as an outpatient. Patient is found to have mildly elevated troponins of 0.2-3. Patient denied any chest pain although patient is extremely poor historian because of her confusion and hearing problems. His blood cultures from the other hospital came back positive for gram-positive cocci unsure whether it's clusters sore repairs. Patient will be started on vancomyci n infectious disease will be consulted may need tube be switched to daptomycin, considering her kidney function. 01/07/2020 Patient is presently on the eighth liters of oxygen although patient is not in respiratory distress whenever she doesn't wear this oxygen his sister AND saturation dropped down to 80%. Patient blood cultures are positive for coag is negative staph which is a contamination and medics will be discontinued. Repeat cultures are pending Review of systems: Unable to obtain due to her clinical condition All inpatient medications were reviewed and appropriate changes in these medications as dictated in the interval history and assessment and plan. Objective - Vital Signs Vital signs: Vital Signs Temp 98.3 F 01/07/20 11:49 Pulse 82 01/07/20 11:49 Resp 19 01/07/20 16:00 BP 139/67 01/07/20 11:49 Pulse Ox 93 L 01/07/20 11:49 Intake & Output 01/06/20 01/07/20 01/07/20 18:59 06:59 18:59 Intake Total 120 625 Output Total 700 Balance -580 625 Weight 78.5 kg Intake: Intake, IV Titration 625 Amount Sodium Chloride 0.9% 1, 375 000 ml @ 125 mls/hr IV . Q8H [facility] Rx#:[id number] Vancomycin 1,500 mg In 250 Sodium Chloride 0.9% 250 ml @ 125 mls/hr IVPB ONCE ONE Rx#:[id number] Oral 120 Output: Urine 700 Other: Voiding Method Toilet Bedside Commode Bedside Commode Bedside Commode Diaper Diaper Incontinent Incontinent Incontinent # Voids 0 1 1 # Bowel Movements 0 0 - Exam PHYSICAL EXAMINATION: GENERAL: The patient is alert and oriented x1, not in any acute distress. Well developed, well nourished. HEENT: Pupils are round and equally reacting to light. EOMI. No scleral icterus. No conjunctival pallor. Normocephalic, atraumatic. No pharyngeal erythema. No thyromegaly. CARDIOVASCULAR: S1 and S2 present. No murmurs, rubs, or gallops. PULMONARY: Chest is clear to auscultation, no wheezing or crackles. ABDOMEN: Soft, nontender, nondistended, normoactive bowel sounds. No palpable organomegaly. MUSCULOSKELETAL: No joint swelling or deformity. EXTREMITIES: No cyanosis, clubbing, or pedal edema. NEUROLOGICAL: Gross neurological examination did not reveal any focal deficits. SKIN: No rashes. Note: Because of [place] [id number] isolation, some of the history and physical exam findings are indirect and obtained from nursing staff, and other physician examinations to avoid unnecessary contact with the patient. - Labs CBC & Chem 7: 01/07/20 07:30 01/07/20 07:30 Labs: Abnormal Lab Results - Last 24 Hours (Table) 01/06/20 01/07/20 01/07/20 Range/Units 20:16 06:30 07:30 WBC (3.8-10.6) k/uL Neutrophils # (Manual) (1.3-7.7) k/uL Lymphocytes # (Manual) (1.0-4.8) k/uL Monocytes # (Manual) (0-1.0) k/uL Myelocytes # (Manual) (0) k/uL Chloride (98-107) mmol/L Carbon Dioxide (22-30) mmol/L BUN (7-17) mg/dL Creatinine (0.52-1.04) mg/dL Glucose (74-99) mg/dL POC Glucose (mg/dL) 211 H 177 H (75-99) mg/dL AST (14-36) U/L ALT (4-34) U/L Troponin I 0.266 H* (0.000-0.034) ng/mL C-Reactive Protein (<10.0) mg/L Total Protein (6.3-8.2) g/dL Albumin (3.5-5.0) g/dL Procalcitonin (0.02-0.09) ng/mL 01/07/20 01/07/20 01/07/20 Range/Units 07:30 07:30 07:30 WBC 27.1 H (3.8-10.6) k/uL Neutrophils # (Manual) 24.90 H (1.3-7.7) k/uL Lymphocytes # (Manual) 0.81 L (1.0-4.8) k/uL Monocytes # (Manual) 1.36 H (0-1.0) k/uL Myelocytes # (Manual) 0.54 H (0) k/uL Chloride 108 H (98-107) mmol/L Carbon Dioxide 14 L (22-30) mmol/L BUN 87 H (7-17) mg/dL Creatinine 2.06 H (0.52-1.04) mg/dL Glucose 157 H (74-99) mg/dL POC Glucose (mg/dL) (75-99) mg/dL AST 102 H (14-36) U/L ALT 47 H (4-34) U/L Troponin I (0.000-0.034) ng/mL C-Reactive Protein 192.3 H (<10.0) mg/L Total Protein 6.0 L (6.3-8.2) g/dL Albumin 3.3 L (3.5-5.0) g/dL Procalcitonin 1.45 H (0.02-0.09) ng/mL 01/07/20 01/07/20 Range/Units 10:59 16:25 WBC (3.8-10.6) k/uL Neutrophils # (Manual) (1.3-7.7) k/uL Lymphocytes # (Manual) (1.0-4.8) k/uL Monocytes # (Manual) (0-1.0) k/uL Myelocytes # (Manual) (0) k/uL Chloride (98-107) mmol/L Carbon Dioxide (22-30) mmol/L BUN (7-17) mg/dL Creatinine (0.52-1.04) mg/dL Glucose (74-99) mg/dL POC Glucose (mg/dL) 182 H 201 H (75-99) mg/dL AST (14-36) U/L ALT (4-34) U/L Troponin I (0.000-0.034) ng/mL C-Reactive Protein (<10.0) mg/L Total Protein (6.3-8.2) g/dL Albumin (3.5-5.0) g/dL Procalcitonin (0.02-0.09) ng/mL Microbiology - Last 24 Hours (Table) 01/06/20 08:00 Urine Culture - Final Urine,Voided Assessment and Plan Plan: -Acute hypoxic respiratory failure: Probably secondary to covid 19 pneumonia. Patient was started on Decadron and Remdesivir patient is presently on a daily dose of oxygen - bacteremia: Patient has coagulase-negative staph which is a contamination IV antibiotics that is vancomycin will be discontinued -Toxic encephalopathy, altered mental status: Secondary to infection -Elevated troponin secondary to infection and renal failure -Possible difficulty renal failure patient does have chronic kidney disease unable to stage chronic kidney disease is at baseline is not known. Patient will continued on IV fluids -Hypertension -Hyperlipidemia -DVT prophylaxis with heparin
[2020-01-07] MEDS ORDERED: METOPROLOL TARTRATE 50 MG TAB PO STA (19:17)
[2020-01-07 20:29] LABS: Glucose,Whole Blood 129 mg/dL (75-99)
[2020-01-07] MEDS: SENNOSIDES 8.6 MG TAB PO SCH (20:45)
[2020-01-07] MEDS: DEXTROSE 5% IN WATER 1,000 ML with SODIUM BICARB (1 MEQ/ML) 150 ML IV SCH (20:46)
[2020-01-07] MEDS ORDERED: METOPROLOL TARTRATE 25 MG TAB PO SCH (21:00)
[2020-01-07] MEDS ORDERED: AZITHROMYCIN 500 MG TAB PO STA (21:02)
--- NOTE | 2020-01-07 21:49 | XR ---
EXAMINATION TYPE: XR chest 1V portable DATE OF EXAM: 01/07/2020 COMPARISON: Earlier same day. HISTORY: Respiratory distress. TECHNIQUE: Single frontal view of the chest is obtained. FINDINGS: There is persistent moderate peripheral based patchy opacity in the left mid to lower lung and mild of the right lung. No significant pleural effusion or pneumothorax. The cardiac silhouette size is within normal limits. The osseous structures are intact. IMPRESSION: Ongoing bilateral airspace opacities.
[2020-01-07 22:03] LABS: Allen Test Performed? Yes
[2020-01-07 22:04] LABS: ABG Base Excess -8.5 mmol/L; ABG HCO3 15 mmol/L (21-25); ABG PCO2 21 mmHg (35-45); ABG PH 7.46 (7.35-7.45); ABG PO2 57 mmHg (83-108); ABG TCO2 16 mmol/L (19-24)
[2020-01-07] MEDS ORDERED: LORazepam 2 MG/ML INJ ONE (22:32)
[2020-01-07] MEDS: LORazepam 2 MG/ML INJ IV PRN (22:37)
[2020-01-07] MEDS: ACETAMINOPHEN TAB 325 MG TAB PO PRN (22:43)
--- NOTE | 2020-01-07 22:59 | PN ---
PROGRESS NOTE DATE OF SERVICE: 01/07/2020 REASON FOR FOLLOWUP: 1. Positive blood culture. 2. Covid-19 infection. INTERVAL HISTORY: Patient is currently afebrile, complaining of shortness of breath. Apparently has not been applying her oxygen as instructed. Denies having any chest pain, cough. Not bringing up any sputum. No abdominal pain. No diarrhea or vomiting has been reported. PHYSICAL EXAMINATION: Blood pressure 145/74 with a pulse of 89, temperature 98.6. She is 90% on 10 L high- flow oxygen. General description is an elderly female up in the chair in no distress. Respiratory system: Unlabored breathing, decrease in the breath sounds. No wheeze. Heart S1, S2. Regular rate and rhythm. Abdomen soft, no tenderness. LABS: Hemoglobin is 12.1, white count 27.1. BUN of 57, creatinine 2.06, liver enzymes mildly elevated, procalcitonin also elevated. DIAGNOSTIC IMPRESSION AND PLAN: 1. Patient with a positive blood culture has been identified as coagulase negative Staph. Possible skin contaminant. Blood culture repeat is so far negative. Vancomycin discontinued. 2. Patient with acute respiratory failure and pneumonia concerning for Covid-19. However, the patient did have elevated procalcitonin with concern for possible component of bacterial pneumonia. 3. We will add Rocephin and Zithromax to the antibiotic regime. Try to obtain a sputum and monitor clinical course closely. MMODL / IJN: [id number] /
[2020-01-08 00:10] LABS: ABG Base Excess -7.1 mmol/L; ABG HCO3 16 mmol/L (21-25); ABG PCO2 22 mmHg (35-45); ABG PH 7.48 (7.35-7.45); ABG PO2 149 mmHg (83-108); ABG TCO2 17 mmol/L (19-24); Allen Test Performed? Yes
[2020-01-08] MEDS ORDERED: AZITHROMYCIN 500 MG in SODIUM CHLORIDE 0.9% 250 ML IVPB STA (00:33)
[2020-01-08] MEDS ORDERED: HALOPERIDOL LACTATE 5 MG/ML 1 ML VIAL IM ONE (00:36)
[2020-01-08 04:45] LABS: Glucose,Whole Blood 240 mg/dL (75-99)
[2020-01-08] MEDS: LORazepam 2 MG/ML INJ IV PRN (05:27)
[2020-01-08 05:42] LABS: Calcium 8.4 mg/dL (8.4-10.2)
[2020-01-08 05:47] LABS: Vancomycin,Random 19.9 ug/mL
[2020-01-08] MEDS: LIDOCAINE 5% PATCH TOPICAL SCH ×2 (08:34→09:49)
[2020-01-08] MEDS: ASCORBIC ACID 500 MG TAB PO SCH ×2 (08:34→20:04)
[2020-01-08] MEDS: amLODIPine 5 MG TAB PO SCH (08:34)
[2020-01-08] MEDS: ASPIRIN 81 MG PO SCH (08:34)
[2020-01-08] MEDS: SENNOSIDES 8.6 MG TAB PO SCH ×2 (08:35→20:04)
[2020-01-08] MEDS: METOPROLOL TARTRATE 25 MG TAB PO SCH ×2 (08:35→20:04)
[2020-01-08] MEDS: cloNIDine HCL 0.1 MG TAB PO SCH (08:35)
[2020-01-08] MEDS: CHOLECALCIFEROL 1,000 UNIT TAB PO SCH (08:35)
[2020-01-08] MEDS: ZINC SULFATE 220 MG CAP PO SCH (08:35)
[2020-01-08] MEDS: dexAMETHasone 2 MG TAB PO SCH (08:35)
[2020-01-08] MEDS ORDERED: AZITHROMYCIN 250 MG TAB PO SCH (09:00)
--- NOTE | 2020-01-08 09:24 | PN ---
PROGRESS NOTE Mrs. Fuller is a 74-year-old female who presented with evidence of progressive dyspnea and was found to have evidence of COVID-19 pneumonia. She was transferred to the ICU yesterday because of progressive dyspnea. She has some tachycardia. She is back in sinus mechanism. She has a history of hypertension and hyperlipidemia. Her chest x-ray performed today revealed bilateral infiltrates consistent with her diagnosis. Her blood pressure has been stable. She continues to be on Norvasc 5 mg daily, aspirin once a day, clonidine 0.1 mg twice a day and metoprolol tartrate 25 mg twice a day. PHYSICAL EXAMINATION: Blood pressure running 143/80 with a heart rate in the 70s. LAB DATA: Revealed BUN and creatinine 91 and 1.93, which is slightly better than yesterday. Potassium 4.0. Her pH 7.48 with a pCO2 of 22 and PO2 of 149. Her troponin is 0.237. IMPRESSION: 1. COVID-19 pneumonia. 2. Troponin elevation related to COVID-19 infection. 3. History of hypertension. 4. Hyperlipidemia. 5. Renal failure. RECOMMENDATION: From the cardiac standpoint, will continue present therapy. If her pressure remains stable, I will cut down the dose of her clonidine and increase the dose of her beta romie. The troponin elevation did not reflect an acute ischemic event. Depending on her progress, further recommendation will be made. MMODL / IJN: [id number] /
--- NOTE | 2020-01-08 09:49 | XR ---
EXAMINATION TYPE: XR chest 1V portable DATE OF EXAM: 01/08/2020 COMPARISON: Prior chest x-ray 01/07/2020 HISTORY: Respiratory distress TECHNIQUE: Single frontal view of the chest is obtained. FINDINGS: Bilateral airspace disease is again noted. Cardiac mediastinal silhouette is stable. Aorta is dense. No evident pneumothorax or pleural effusion. Marked arthropathy noted shoulders. IMPRESSION: Correlate for bilateral pneumonia.
[2020-01-08] MEDS: HEPARIN SODIUM,PORCINE 5,000 UNIT/ML 1 ML VIAL SQ SCH ×2 (09:50→20:26)
[2020-01-08] MEDS: DEXTROSE 5% IN WATER 1,000 ML with SODIUM BICARB (1 MEQ/ML) 150 ML IV SCH ×3 (09:50→21:03)
[2020-01-08] MEDS: hydrALAZINE HCL 20 MG/ML 1 ML VIAL IVP PRN ×2 (09:56→15:44)
[2020-01-08] MEDS: HALOPERIDOL LACTATE 5 MG/ML 1 ML VIAL IVP PRN ×3 (10:47→19:56)
--- NOTE | 2020-01-08 11:11 | XR ---
EXAMINATION TYPE: XR chest 1V confirm [facility] DATE OF EXAM: 01/08/2020 COMPARISON: Prior chest x-ray 01/08/2020 and earlier time HISTORY: Status post subclavian line placement TECHNIQUE: Single frontal view of the chest is obtained. FINDINGS: Left subclavian central venous catheter is been placed in the interval, distal tip is over lying superior vena cava. No evident pneumothorax or pleural effusion. Aorta is dense. There has been progression in patient's airspace disease on the left. IMPRESSION: No evident complication status post central venous catheter placement.
[2020-01-08 11:21] LABS: Glucose,Whole Blood 212 mg/dL (75-99)
[2020-01-08] MEDS: INSULIN ASPART (NovoLOG) 100 UNIT/ML VIAL SQ SCH ×2 (11:21→17:44)
[2020-01-08] MEDS ORDERED: QUEtiapine 25 MG TAB PO PRN (12:30)
[2020-01-08] MEDS: REMDESIVIR 100 MG in SODIUM CHLORIDE 0.9% 250 ML IVPB SCH (12:54)
[2020-01-08] MEDS: DEXAMETHASONE SOD PHOSPHATE 10 MG/ML 1 ML VIAL IV SCH (13:28)
[2020-01-08] MEDS ORDERED: cloNIDine 0.2 MG/24HR PATCH TRANSDERM SCH (14:00)
--- NOTE | 2020-01-08 15:39 | P.PN ---
Subjective Progress Note Date: 01/08/20 A 74-year-old female patient, very poor historian with what seems to be advanced dementia in addition to history of hypertension and hyperlipidemia was coming in for shortness of breath and hypoxemia and this has been confirmed to be related to COVID 19 infection/pneumonia. The patient was transferred from an outside hospital. The patient is unable to give any further history. Review of her chest x-ray shows that the patient is a peripheral patchy pulmonary interstitial airspace disease infiltrates bilaterally and the patient is currently on 8 L of oxygen by nasal cannula to maintain a saturation above 90%. Her current pulse ox is around 93%. The white cell count is at 10.6. The patient also has a renal failure and the chronicity of the renal failure is not established. Her previous creatinine is unknown to me at this point in time. She also has a mild component of anion gap metabolic acidosis with a anion gap of 14 and a serum bicarb level of 17. LDH is 1213 and the patient is a CRP of 301. Also, the patient had a troponin leak with troponin levels being at 0.1 0.1 and 0.2 resp ectively. Pro calcitonin level was elevated at 1.54. She is afebrile. The blood cultures from the outside hospital showing gram-positive cocci and is not sure if it was in clusters overnight. The patient was started on vancomycin as an empiric antibiotic coverage. In terms of Covid 19 infection, the patient was started on a combination of Decadron and Remdesivir The patient is seen today 01/07/2020 in follow-up on selective care unit. She does have advanced dementia and is a poor historian. She is currently resting fairly comfortably in bed. She is on 8 L high flow nasal cannula to maintain O2 saturations in the 90s. She's afebrile. Hemodynamically stable. White count 27.1. Hemoglobin 12.2. Lymphocytes 0.81. Sodium 139. Potassium 4.2. Bicarb 14. Creatinine 2.06. AST 102. ALT 47. Troponin 0.266. C-reactive protein 192. Pro calcitonin 1.45. She remains on Decadron, vitamin C, vitamin D, zinc. She is receiving day #2 of Remdesivir. On 01/08/2020, the patient has been transferred to the intensive care unit. The patient developed progressive dyspnea tachypnea and hypoxemia overnight and the patient had to be transferred to the intensive care unit. At this point in time, the patient is confused, lethargic, at times agitated, unable to follow any commands and unable to hold a conversation. She gets quite restless when stimulated. She is sensing critical condition on 4 extremities. No neck stiffness. She is moving all 4 extremities and the patient has no focal neurological deficits. No neck stiffness. The patient was noted to have a possible culture an outside hospital and the patient was given vancomycin in addition to Zithromax and Rocephin per IDs recommendation. Nevertheless, based on our cultures, the results are still negative for now and there is no clear evidence of any bacterial infection at this point in time. Noted the Pro calci tonin level was elevated. At the same time, the patient has acute Covid 19 related to pneumonia bilateral. The patient is on high flow oxygen at 15 L with an FiO2 of 73% to maintain a saturation above 90%. A triple lumen catheter was established in the left subclavian. The chest x-ray post line insertion showed no evidence of any pneumothorax. Nevertheless, there was dense bilateral pulmonary infiltrates consistent with coronavirus Covid 19 related pneumonia. The patient is obviously tachypneic. She is having respiratory distress even on high flow oxygen. No use of accessory muscles of breathing. The blood work from today shows a troponin of 0.23. Vancomycin level is at 19.9. The patient a component of non-anion gap metabolic acidosis from yesterday. The patient is a bicarb drip which is running at 100 mL an hour. Serum bicarb is up to 18. Creatinine is down to 1.9, somewhat improved compared to yesterday. At the same time, the patient is being treated with a combination of Decadron, vitamin C, vitamin D, zinc. She is receiving day #3 of Remdesivir. Objective - Vital Signs Vital signs: Vital Signs Temp 98.9 F 01/08/20 08:00 Pulse 91 01/08/20 13:00 Resp 34 H 01/08/20 13:30 BP 157/116 01/08/20 13:30 Pulse Ox 91 L 01/08/20 13:30 Intake & Output 01/07/20 01/08/20 01/08/20 18:59 06:59 18:59 Intake Total 200 950 Output Total 130 475 Balance 70 475 Weight 85 kg Intake: IV 200 950 Dextrose 5% in Water 1, 200 700 000 ml @ 100 mls/hr IV . [id number] [facility] with Sodium Bicarb (1 Meq/ml) 150 ml Rx#:[id number] Remdesivir (Eua) 100 mg 250 In Sodium Chloride 0.9% 250 ml @ 250 mls/hr IVPB DAILY@1200 [facility] Rx#: [id number] Output: Urine 130 475 Other: Voiding Method Bedside Commode Bedside Commode Diaper Diaper Incontinent Incontinent # Voids 1 0 - Exam GENERAL: This is a 74-year-old female patient is alert and oriented x1, not in any acute distress. Well developed, well nourished. Currently on high flow oxygen at 15 L with an FiO2 of 73%. The patient's mental status is further deteriorated. At this point in time she is OA0-1. HEENT: Pupils are round and equally reacting to light. EOMI. No scleral icterus. No conjunctival pallor. Normocephalic, atraumatic. No pharyngeal erythema. No thyromegaly. The patient subclavian triple lumen catheter inserted in left subclavian vein. CARDIOVASCULAR: S1 and S2 present. No murmurs, rubs, or gallops. PULMONARY: Lungs with bilateral scattered rhonchi , the patient has crackles in the mid and lower lung kaiser bilaterally. ABDOMEN: Soft, nontender, nondistended, normoactive bowel sounds. No palpable organomegaly. MUSCULOSKELETAL: No joint swelling or deformity. EXTREMITIES: No cyanosis, clubbing, or pedal edema. NEUROLOGICAL: Gross neurological examination did not reveal any focal deficits. SHE IS CONFUSED. SHE IS AT TIMES AGITATED. UNABLE TO maintain a conversation. Unable to answer any questions. Pupils are round 3 mm in size and they're reactive to light. No nystagmus. No neck stiffness. No clonus. Reflexes are symmetrical. No muscle rigidity. SKIN: No rashes. - Labs CBC & Chem 7: 01/07/20 07:30 01/08/20 05:03 Labs: Abnormal Lab Results - Last 24 Hours (Table) 01/07/20 01/07/20 01/07/20 Range/Units 07:30 16:25 20:26 ABG pH (7.35-7.45) ABG pCO2 (35-45) mmHg ABG pO2 (83-108) mmHg ABG HCO3 (21-25) mmol/L ABG Total CO2 (19-24) mmol/L ABG O2 Saturation (94-97) % Chloride (98-107) mmol/L Carbon Dioxide (22-30) mmol/L BUN (7-17) mg/dL Creatinine (0.52-1.04) mg/dL Glucose (74-99) mg/dL POC Glucose (mg/dL) 201 H 129 H (75-99) mg/dL Troponin I (0.000-0.034) ng/mL Procalcitonin 1.45 H (0.02-0.09) ng/mL 01/07/20 01/07/20 01/08/20 Range/Units 21:27 23:46 04:43 ABG pH 7.46 H 7.48 H (7.35-7.45) ABG pCO2 21 L 22 L (35-45) mmHg ABG pO2 57 L* 149 H (83-108) mmHg ABG HCO3 15 L 16 L (21-25) mmol/L ABG Total CO2 16 L 17 L (19-24) mmol/L ABG O2 Saturation 91.0 L 99.0 H (94-97) % Chloride (98-107) mmol/L Carbon Dioxide (22-30) mmol/L BUN (7-17) mg/dL Creatinine (0.52-1.04) mg/dL Glucose (74-99) mg/dL POC Glucose (mg/dL) 240 H (75-99) mg/dL Troponin I (0.000-0.034) ng/mL Procalcitonin (0.02-0.09) ng/mL 01/08/20 01/08/20 01/08/20 Range/Units 05:03 05:03 11:10 ABG pH (7.35-7.45) ABG pCO2 (35-45) mmHg ABG pO2 (83-108) mmHg ABG HCO3 (21-25) mmol/L ABG Total CO2 (19-24) mmol/L ABG O2 Saturation (94-97) % Chloride 109 H (98-107) mmol/L Carbon Dioxide 18 L (22-30) mmol/L BUN 91 H (7-17) mg/dL Creatinine 1.93 H (0.52-1.04) mg/dL Glucose 208 H (74-99) mg/dL POC Glucose (mg/dL) 212 H (75-99) mg/dL Troponin I 0.237 H* (0.000-0.034) ng/mL Procalcitonin (0.02-0.09) ng/mL Microbiology - Last 24 Hours (Table) 01/07/20 07:30 Blood Culture - Preliminary Blood No Growth after 24 hours 01/06/20 15:18 Blood Culture - Preliminary Blood No Growth after 24 hours 01/06/20 08:00 Urine Culture - Final Urine,Voided Assessment and Plan Plan: 1 Acute bilateral COVID 19 pneumonia, with secondary respiratory failure. The patient is currently on high flow oxygen at 15 L and the patient's chest x-ray showing dense but the pulmonary infiltrates. There has been interval decompensation in the patient's pulmonary status with worsening oxygenation and worsening in shortness of breath and for that reason the patient got transferred to the ICU for further care. She is currently being treated for Covid 19 infection/pneumonia. 2 Acute hypoxic respiratory failure, currently on high flow oxygen by nasal cannula. 3 SELENE versus chronic kidney failure, creatinine stable at 1.9 and the patient has a component of non-anion gap metabolic acidosis 4 Non anion gap meabolic acidosis, improving and the patient is currently on a bicarb infusion 5 altered mental status acute versus chronic as she may have an underlying cognitive impairment dementia, also considered the possibility of encephalitis or metabolic encephalopathy induced bilateral pneumonia. 6 hypertension 7 troponin leak 8, hyperlipidemia 9 elevated pro-CALCITONIN level. Consider possibility of a superinfection with bacteria. The patient had a positive blood culture gram-positive cocci and the patient was given a dose of vancomycin, currently the patient's blood culture is negative and the patient remains on broad-spectrum antibiotics. The pro- calcitonin level is improving is currently down to 1.45. Plan Keep the patient adequately oxygenated with high flow oxygen at 15 L per minute nasal cannula Continue the combination of Decadron and Remdesivir regarding the Covid 19 related pneumonia Repeat blood cultures are negative thus far and the patient remains on examination of Rocephin and Zithromax and vancomycin Continue the bicarbonate infusion Obtain a neurology consultation Establish triple-lumen catheter Monitor renal function Order a unit of convalescent plasma We'll continue to follow. Prognosis poor baseline above-mentioned comorbidities. Monitor respiratory status very closely.
--- NOTE | 2020-01-08 15:41 | P.PCN ---
Date of Procedure: 01/08/20 Preoperative Diagnosis: acute hypoxic respiratory failure/pneumonia Postoperative Diagnosis: Same Procedure(s) Performed: Insertion of a central line Anesthesia: local Surgeon: Domenica Chavis Pathology: none sent Condition: critical Disposition: ICU Operative Findings: Indication: Hemodynamic monitoring/Intravenous access. A time-out was completed verifying correct patient, procedure, site, positioning, and implant(s) or special equipment if applicable. The patient was placed in a dependent position appropriate for central line placement based on the vein to be cannulated. The patients left subclavian area was prepped and draped in sterile fashion. 1% Lidocaine was used to anesthetize the surrounding skin area. A triple lumen 9F Cordis catheter was introduced into the left subclavian vein using Seldinger technique. The catheter was threaded smoothly over the guide wire and appropriate blood return was obtained. Each lumen of the catheter was evacuated of air and flushed with sterile saline. The catheter was then sutured in place to the skin and a sterile dressing applied. Perfusion to the extremity distal to the point of catheter insertion was checked and found to be adequate. The patient tolerated the procedure well and there were no complications.
--- NOTE | 2020-01-08 15:57 | P.PN ---
Subjective 74-year-old female is admitted for hypoxia elevated troponins found to have positive Covid. Patient was transferred from outside hospital. Patient at baseline apparently is awake and alert. Patient is oriented 1 at this time. Patient did have fever and shortness of breath because of which patient was sent in here. Patient has elevated urine creatinine of 2.5 baseline is not available but patient apparently has chronic kidney disease. Does follow with a beauty parlor cleaner as an outpatient. Patient is found to have mildly elevated troponins of 0.2-3. Patient denied any chest pain although patient is extremely poor historian because of her confusion and hearing problems. His blood cultures from the other hospital came back positive for gram-positive cocci unsure whether it's clusters sore repairs. Patient will be started on vancomyci n infectious disease will be consulted may need tube be switched to daptomycin, considering her kidney function. 01/07/2020 Patient is presently on the eighth liters of oxygen although patient is not in respiratory distress whenever she doesn't wear this oxygen his sister AND saturation dropped down to 80%. Patient blood cultures are positive for coag is negative staph which is a contamination and medics will be discontinued. Repeat cultures are pending 01/08/2020 Patient progressively became dyspneic was transferred to intensive care unit patient was started on Rocephin and azithromycin for secondary bacterial pneumonia, IV recommended vancomycin as well. Patient had a central line don fariba.. Creatinine improved to 1.9. Patient is presently on Remdesivir date 3 along with Decadron, vitamin C, vitamin D and zinc Review of systems: Unable to obtain due to her clinical condition All inpatient medications were reviewed and appropriate changes in these medications as dictated in the interval history and assessment and plan. Objective - Vital Signs Vital signs: Vital Signs Temp 98.9 F 01/08/20 08:00 Pulse 91 01/08/20 13:00 Resp 34 H 01/08/20 13:30 BP 157/116 01/08/20 13:30 Pulse Ox 91 L 01/08/20 13:30 Intake & Output 01/07/20 01/08/20 01/08/20 18:59 06:59 18:59 Intake Total 200 950 Output Total 130 475 Balance 70 475 Weight 85 kg Intake: IV 200 950 Dextrose 5% in Water 1, 200 700 000 ml @ 100 mls/hr IV . [id number] ANDREA with Sodium Bicarb (1 Meq/ml) 150 ml Rx#:[id number] Remdesivir (Eua) 100 mg 250 In Sodium Chloride 0.9% 250 ml @ 250 mls/hr IVPB DAILY@1200 ANDREA Rx#: [id number] Output: Urine 130 475 Other: Voiding Method Bedside Commode Bedside Commode Diaper Diaper Incontinent Incontinent # Voids 1 0 - Exam PHYSICAL EXAMINATION: GENERAL: The patient is alert and oriented x1, not in any acute distress. Well developed, well nourished. Patient has nonessential tremor, possibility of myoclonus HEENT: Pupils are round and equally reacting to light. EOMI. No scleral icterus. No conjunctival pallor. Normocephalic, atraumatic. No pharyngeal erythema. No thyromegaly. CARDIOVASCULAR: S1 and S2 present. No murmurs, rubs, or gallops. PULMONARY: Bilateral crackles and rhonchi diffusely ABDOMEN: Soft, nontender, nondistended, normoactive bowel sounds. No palpable organomegaly. MUSCULOSKELETAL: No joint swelling or deformity. EXTREMITIES: No cyanosis, clubbing, or pedal edema. NEUROLOGICAL: Gross neurological examination did not reveal any focal deficits. SKIN: No rashes. Note: Because of COVID 19 isolation, some of the history and physical exam findings are indirect and obtained from nursing staff, and other physician examinations to avoid unnecessary contact with the patient. - Labs CBC & Chem 7: 01/07/20 07:30 01/08/20 05:03 Labs: Abnormal Lab Results - Last 24 Hours (Table) 01/07/20 01/07/20 01/07/20 Range/Units 07:30 16:25 20:26 ABG pH (7.35-7.45) ABG pCO2 (35-45) mmHg ABG pO2 (83-108) mmHg ABG HCO3 (21-25) mmol/L ABG Total CO2 (19-24) mmol/L ABG O2 Saturation (94-97) % Chloride (98-107) mmol/L Carbon Dioxide (22-30) mmol/L BUN (7-17) mg/dL Creatinine (0.52-1.04) mg/dL Glucose (74-99) mg/dL POC Glucose (mg/dL) 201 H 129 H (75-99) mg/dL Troponin I (0.000-0.034) ng/mL Procalcitonin 1.45 H (0.02-0.09) ng/mL 01/07/20 01/07/20 01/08/20 Range/Units 21:27 23:46 04:43 ABG pH 7.46 H 7.48 H (7.35-7.45) ABG pCO2 21 L 22 L (35-45) mmHg ABG pO2 57 L* 149 H (83-108) mmHg ABG HCO3 15 L 16 L (21-25) mmol/L ABG Total CO2 16 L 17 L (19-24) mmol/L ABG O2 Saturation 91.0 L 99.0 H (94-97) % Chloride (98-107) mmol/L Carbon Dioxide (22-30) mmol/L BUN (7-17) mg/dL Creatinine (0.52-1.04) mg/dL Glucose (74-99) mg/dL POC Glucose (mg/dL) 240 H (75-99) mg/dL Troponin I (0.000-0.034) ng/mL Procalcitonin (0.02-0.09) ng/mL 01/08/20 01/08/20 01/08/20 Range/Units 05:03 05:03 11:10 ABG pH (7.35-7.45) ABG pCO2 (35-45) mmHg ABG pO2 (83-108) mmHg ABG HCO3 (21-25) mmol/L ABG Total CO2 (19-24) mmol/L ABG O2 Saturation (94-97) % Chloride 109 H (98-107) mmol/L Carbon Dioxide 18 L (22-30) mmol/L BUN 91 H (7-17) mg/dL Creatinine 1.93 H (0.52-1.04) mg/dL Glucose 208 H (74-99) mg/dL POC Glucose (mg/dL) 212 H (75-99) mg/dL Troponin I 0.237 H* (0.000-0.034) ng/mL Procalcitonin (0.02-0.09) ng/mL Microbiology - Last 24 Hours (Table) 01/07/20 07:30 Blood Culture - Preliminary Blood No Growth after 24 hours 01/06/20 15:18 Blood Culture - Preliminary Blood No Growth after 24 hours 01/06/20 08:00 Urine Culture - Final Urine,Voided Assessment and Plan Plan: -Acute hypoxic respiratory failure: Probably secondary to covid 19 pneumonia. Patient was started on Decadron and Remdesivir patient is presently on a 15 L high flow nasal cannula oxygen -Possibly of secondary bacterial pneumonia and patient is an above-mentioned antibiotics - bacteremia: Patient has coagulase-negative staph which is a contamination IV antibiotics that is vancomycin will be discontinued -Toxic encephalopathy, altered mental status: Secondary to infection -Elevated troponin secondary to infection and renal failure -Possible difficulty renal failure patient does have chronic kidney disease unable to stage chronic kidney disease is at baseline is not known. Patient will continued on IV fluids -Hypertension -Hyperlipidemia Possible myoclonus: Secondary to encephalopathy, neurology was consulted -DVT prophylaxis with heparin
--- NOTE | 2020-01-08 16:20 | P.CNNES ---
History of Present Illness Consult date: 01/08/20 Requesting physician: Domenica Chavis Reason for Consult: Altered mental status, COVID History of Present Illness: Patient is a 74-year-old female came to the hospital on 01/05/2020 by ambulance came to the hospital for shortness of breath and hypoxemia, and has been confirmed to be related to COVID-19 related pneumonia. It is also reported that patient has advanced dementia in the chart, but patient's daughter completely declines it. She also has hypertension and hyperlipidemia. Patient has been started on Decadron and Remdesvir. Neurology has been consulted for altered mental status. According to the nurse report, patient has been lethargic, and also having episodes of extreme tremors, agitation, unable to follow any commands and unable to hold a conversation. Other times she is more calm. Patient is restless and stability. Patient had undergone 2-D echo from 01/06/2020 showed normal left-ventricular size, mild concentric LVH, EF is 55-60%. Aortic valve is trileaflet. Mild aortic valve sclerosis. Trace AR. Chest x-ray from today showed bilateral pneumonia. Patient's blood test shows W BC 27.1, hemoglobin 12.2 and platelets are 375. Sodium and potassium normal, BUN 91, creatinine 1.93. Apparently patient's BUN is getting worse although creatinine is improving. AST is 102, ALT 47 both elevated. Troponin is elevated 0.237 CRP elevated 192. Total cholesterol is 101, LDL 47, HDL 28 and triglycerides 129. Patient is currently on dexamethasone 6 mg daily. Also on Rocephin, azithromycin aspirin I spoke to patient's daughter on the phone. She states that patient is cognitively fairly intact. Sometimes she would search for words, and has some moments that she has to think what she wanted to say. Otherwise she is very well oriented, lives by herself, and has a cat. Patient is fully oriented at baseline. Her daughter checks on her periodically. Patient's daughter also me ntions that she spoke to her mom last night on the phone and she was conversing fairly normally. She knew that her birthday was coming on and expressed to her daughter that she loves her. Review of Systems ROS unobtainable: due to mental status Past Medical History Past Medical History: Hyperlipidemia, Hypertension History of Any Multi-Drug Resistant Organisms: None Reported Past Surgical History: No Surgical Hx Reported Past Psychological History: No Psychological Hx Reported Smoking Status: Never smoker Past Alcohol Use History: None Reported Past Drug Use History: None Reported - Past Family History Father Family Medical History: Pulmonary Embolus Additional Family Medical History / Comment(s): Mother History Unknown: Yes Additional Family Medical History / Comment(s): " from old age" age 93 Daughter(s) Family Medical History: Hypertension Medications and Allergies Home Medications Medication Instructions Recorded Confirmed Type Albuterol Sulfate [Proventil Hfa] 1 puff INHALATION Q4-6H PRN 01/05/20 01/05/20 History Simvastatin [Zocor] 20 mg PO HS 01/05/20 01/05/20 History allopurinoL [Zyloprim] 100 mg PO DAILY 01/05/20 01/05/20 History cloNIDine HCL [Catapres] 0.2 mg PO Q8H 01/05/20 01/05/20 History traMADol HCL 50 mg PO BID PRN 01/05/20 01/05/20 History Allergies Allergy/AdvReac Type Severity Reaction Status Date / Time No Known Allergies Allergy Verified 01/05/20 23:47 Physical Examination - Vital Signs Vital Signs: Vital Signs Temp Pulse Pulse Resp BP BP Pulse Ox 01/08/20 08:24 90 L 01/08/20 06:40 71 100 H 143/86 96 01/08/20 06:20 66 25 H 152/82 97 01/08/20 06:00 62 24 166/89 95 01/08/20 05:40 66 25 H 170/119 96 01/08/20 05:20 82 31 H 208/106 96 01/08/20 05:00 78 30 H 151/103 91 L 01/08/20 04:42 98.5 F 74 21 194/94 95 01/08/20 00:35 100 01/08/20 00:00 98.1 F 77 24 168/76 97 01/07/20 20:00 97.6 F 103 H 24 131/87 87 L 01/07/20 16:00 98.6 F 89 22 145/74 90 L 01/07/20 11:49 98.3 F 82 19 139/67 93 L 01/07/20 11:10 24 Intake and Output 01/07/20 01/08/20 01/08/20 22:59 06:59 14:59 Intake Total 200 Output Total 130 Balance 70 Intake: IV 200 Dextrose 5% in Water 1, 200 000 ml @ 100 mls/hr IV . [id number] ANDREA with Sodium Bicarb (1 Meq/ml) 150 ml Rx#:[id number] Output: Urine 130 Other: Voiding Method Bedside Commode Bedside Commode Diaper Diaper Incontinent Incontinent # Voids 0 Weight 85 kg On examination patient is an elderly female, laying in the bed, appears obviously encephalopathic. Patient is coughing, appears to be in respiratory distress, using high flow oxygen through [employer]. Patient did not answer to questions, mumbles. Patient keeps her eyes closed. Her face appears symmetric. Tone is equal, mild to moderately increased bilaterally. Some tremulousness/cogwheeling was noted. Bulk of muscles appears normal reflexes symmetric, diminished and plantars are equivocal. Results - Laboratory Findings CBC and BMP: 01/07/20 07:30 01/08/20 05:03 Abnormal Lab Findings: Abnormal Labs 01/05/20 01/05/20 01/05/20 22:00 22:00 22:00 WBC RBC Neutrophils # (Manual) Lymphocytes # (Manual) Monocytes # (Manual) Myelocytes # (Manual) ABG pH ABG pCO2 ABG pO2 ABG HCO3 ABG Total CO2 ABG O2 Saturation Sodium Chloride Carbon Dioxide BUN Creatinine Glucose POC Glucose (mg/dL) AST ALT Lactate Dehydrogenase 1213 H Troponin I 0.208 H* C-Reactive Protein 301.3 H Total Protein Albumin HDL Cholesterol Procalcitonin 1.54 H Urine Appearance Urine Protein Ur Leukocyte Esterase Urine RBC Urine WBC Urine Bacteria Urine Mucus 01/05/20 01/06/20 01/06/20 22:53 01:52 07:45 WBC RBC 3.67 L Neutrophils # (Manual) 9.60 H Lymphocytes # (Manual) 0.53 L Monocytes # (Manual) Myelocytes # (Manual) ABG pH ABG pCO2 ABG pO2 ABG HCO3 ABG Total CO2 ABG O2 Saturation Sodium Chloride Carbon Dioxide BUN Creatinine Glucose POC Glucose (mg/dL) AST ALT Lactate Dehydrogenase Troponin I 0.192 H* 0.173 H* C-Reactive Protein Total Protein Albumin HDL Cholesterol Procalcitonin Urine Appearance Urine Protein Ur Leukocyte Esterase Urine RBC Urine WBC Urine Bacteria Urine Mucus 01/06/20 01/06/20 01/06/20 08:00 08:55 20:16 WBC RBC Neutrophils # (Manual) Lymphocytes # (Manual) Monocytes # (Manual) Myelocytes # (Manual) ABG pH ABG pCO2 ABG pO2 ABG HCO3 ABG Total CO2 ABG O2 Saturation Sodium 136 L Chloride Carbon Dioxide 17 L BUN 77 H Creatinine 2.18 H Glucose 138 H POC Glucose (mg/dL) 211 H AST 115 H ALT 51 H Lactate Dehydrogenase Troponin I C-Reactive Protein Total Protein 5.5 L Albumin 3.0 L HDL Cholesterol 28 L Procalcitonin Urine Appearance Cloudy H Urine Protein 2+ H Ur Leukocyte Esterase Moderate H Urine RBC 7 H Urine WBC 21 H Urine Bacteria Few H Urine Mucus Rare H 01/07/20 01/07/20 01/07/20 06:30 07:30 07:30 WBC RBC Neutrophils # (Manual) Lymphocytes # (Manual) Monocytes # (Manual) Myelocytes # (Manual) ABG pH ABG pCO2 ABG pO2 ABG HCO3 ABG Total CO2 ABG O2 Saturation Sodium Chloride 108 H Carbon Dioxide 14 L BUN 87 H Creatinine 2.06 H Glucose 157 H POC Glucose (mg/dL) 177 H AST 102 H ALT 47 H Lactate Dehydrogenase Troponin I 0.266 H* C-Reactive Protein 192.3 H Total Protein 6.0 L Albumin 3.3 L HDL Cholesterol Procalcitonin Urine Appearance Urine Protein Ur Leukocyte Esterase Urine RBC Urine WBC Urine Bacteria Urine Mucus 01/07/20 01/07/20 01/07/20 07:30 07:30 10:59 WBC 27.1 H RBC Neutrophils # (Manual) 24.90 H Lymphocytes # (Manual) 0.81 L Monocytes # (Manual) 1.36 H Myelocytes # (Manual) 0.54 H ABG pH ABG pCO2 ABG pO2 ABG HCO3 ABG Total CO2 ABG O2 Saturation Sodium Chloride Carbon Dioxide BUN Creatinine Glucose POC Glucose (mg/dL) 182 H AST ALT Lactate Dehydrogenase Troponin I C-Reactive Protein Total Protein Albumin HDL Cholesterol Procalcitonin 1.45 H Urine Appearance Urine Protein Ur Leukocyte Esterase Urine RBC Urine WBC Urine Bacteria Urine Mucus 01/07/20 01/07/20 01/07/20 16:25 20:26 21:27 WBC RBC Neutrophils # (Manual) Lymphocytes # (Manual) Monocytes # (Manual) Myelocytes # (Manual) ABG pH 7.46 H ABG pCO2 21 L ABG pO2 57 L* ABG HCO3 15 L ABG Total CO2 16 L ABG O2 Saturation 91.0 L Sodium Chloride Carbon Dioxide BUN Creatinine Glucose POC Glucose (mg/dL) 201 H 129 H AST ALT Lactate Dehydrogenase Troponin I C-Reactive Protein Total Protein Albumin HDL Cholesterol Procalcitonin Urine Appearance Urine Protein Ur Leukocyte Esterase Urine RBC Urine WBC Urine Bacteria Urine Mucus 01/07/20 01/08/20 01/08/20 23:46 04:43 05:03 WBC RBC Neutrophils # (Manual) Lymphocytes # (Manual) Monocytes # (Manual) Myelocytes # (Manual) ABG pH 7.48 H ABG pCO2 22 L ABG pO2 149 H ABG HCO3 16 L ABG Total CO2 17 L ABG O2 Saturation 99.0 H Sodium Chloride Carbon Dioxide BUN Creatinine Glucose POC Glucose (mg/dL) 240 H AST ALT Lactate Dehydrogenase Troponin I 0.237 H* C-Reactive Protein Total Protein Albumin HDL Cholesterol Procalcitonin Urine Appearance Urine Protein Ur Leukocyte Esterase Urine RBC Urine WBC Urine Bacteria Urine Mucus 01/08/20 05:03 WBC RBC Neutrophils # (Manual) Lymphocytes # (Manual) Monocytes # (Manual) Myelocytes # (Manual) ABG pH ABG pCO2 ABG pO2 ABG HCO3 ABG Total CO2 ABG O2 Saturation Sodium Chloride 109 H Carbon Dioxide 18 L BUN 91 H Creatinine 1.93 H Glucose 208 H POC Glucose (mg/dL) AST ALT Lactate Dehydrogenase Troponin I C-Reactive Protein Total Protein Albumin HDL Cholesterol Procalcitonin Urine Appearance Urine Protein Ur Leukocyte Esterase Urine RBC Urine WBC Urine Bacteria Urine Mucus Assessment and Plan Assessment: * Altered mental status, likely due to toxic metabolic encephalopathy. Patient has acute renal insufficiency, abnormal liver functions on top of severe bilateral pneumonia with oxygen/carbon dioxide mismatch resulting in TME. * Acute bilateral Covid pneumonia. * Acute renal insufficiency Plan: * Appears patient has toxic metabolic encephalopathy. * Her tremors is likely related to above. * Treatment of various metabolic conditions/medical conditions as per IM and critical care. * As patient was conversing fairly normally yesterday with her daughter, doubt any central nervous system infection. * Supportive care. * We will follow.
[2020-01-08 17:20] LABS: Glucose,Whole Blood 143 mg/dL (75-99)
[2020-01-08] MEDS: DEXMEDETOMIDINE/0.9% NACL(PMX) 400 MCG in EMPTY BAG 1 BAG IV SCH (20:31)
--- NOTE | 2020-01-08 22:26 | PN ---
PROGRESS NOTE DATE OF SERVICE: 01/08/2020 REASON FOR FOLLOWUP: 1. Acute COVID-19 pneumonia. 2. Concern for possible bacterial pneumonia. 3. Positive blood culture. INTERVAL HISTORY: The patient has been transferred down to ICU because of hypoxemia and some mental status changes. The patient remains pleasantly confused, unable to provide any history. Patient is hemodynamically stable, not requiring pressor support. No vomiting or any diarrhea has been reported. PHYSICAL EXAMINATION: Blood pressure 156/100 with a pulse of 90, temperature 98.2. She is 97% on 60% FiO2. General description is a middle-aged female lying in bed in no distress. RESPIRATORY SYSTEM: Unlabored breathing with decreased breath sounds at the base. No wheeze. HEART: S1, S2. Regular rate and rhythm. ABDOMEN: Soft. No tenderness. LABS: BUN of 91, creatinine 1.93. Vancomycin level was 19.9. Blood culture drawn here on 01/06 did show one positive with a Gram-positive. DIAGNOSTIC IMPRESSION AND PLAN: 1. Patient with a blood culture on admission to facility that was positive for coagulase-negative Staph. The patient's vancomycin was discontinued; however, level is still therapeutic. With the blood culture coming back positive here, we will wait for the ID of this pathogen before providing any further antibiotic therapy. Blood culture has been repeated. 2. Patient with COVID-19 pneumonia. This patient is currently covered with remdesivir, dexamethasone and zinc; to continue. 3. Patient with elevated procalcitonin, possible component of bacterial pneumonia, covered with Rocephin and Zithromax. Try to obtain a sputum sample and monitor her clinical course closely. MMODL / IJN: [id number] /
[2020-01-08] MEDS ORDERED: AZITHROMYCIN 250 MG in SODIUM CHLORIDE 0.9% 250 ML IVPB SCH (23:00)
[2020-01-09 00:32] LABS: Glucose,Whole Blood 242 mg/dL (75-99)
[2020-01-09] MEDS: INSULIN ASPART (NovoLOG) 100 UNIT/ML VIAL SQ SCH ×4 (00:32→17:01)
[2020-01-09] MEDS: DEXMEDETOMIDINE/0.9% NACL(PMX) 400 MCG in EMPTY BAG 1 BAG IV SCH ×3 (01:48→21:42)
[2020-01-09 03:28] LABS: HCT 25.2 % (34.0-46.0); MCH 30.5 pg (25.0-35.0); MCHC 33.8 g/dL (31.0-37.0); MCV 90.1 fL (80.0-100.0); RDW 13.8 % (11.5-15.5); WBC 9.3 k/uL (3.8-10.6)
[2020-01-09 03:44] LABS: HGB 8.5 gm/dL (11.4-16.0)
[2020-01-09 03:45] LABS: Platelet Count 185 k/uL (150-450)
[2020-01-09 03:50] LABS: Albumin 2.3 g/dL (3.5-5.0); Calcium 7.8 mg/dL (8.4-10.2); Potassium 3.1 mmol/L (3.5-5.1); Total Bilirubin 0.5 mg/dL (0.2-1.3); Total Protein 4.5 g/dL (6.3-8.2)
[2020-01-09] MEDS: HALOPERIDOL LACTATE 5 MG/ML 1 ML VIAL IVP PRN (03:58)
[2020-01-09 04:02] LABS: C Reactive Protein 122.4 mg/L (<10.0)
[2020-01-09] MEDS ORDERED: Potassium Replacement Protocol 1 EACH MISC MISCELLANE PRN (04:04)
[2020-01-09] MEDS: POTASSIUM CHLORIDE 20 MEQ in WATER FOR INJECTION 1 100ML.BAG IVPB SCH ×2 (04:22→05:38)
[2020-01-09 04:26] LABS: Band Neutrophils % 1 %; Lymphocytes # (M) 0.47 k/uL (1.0-4.8); Monocytes # (M) 0.28 k/uL (0-1.0); Neutrophils % (M) 91 %; Nucleated Red Blood Cells 0 /100 WBC (0-0); Total Cells Counted 100
[2020-01-09 06:05] LABS: Glucose,Whole Blood 189 mg/dL (75-99)
--- NOTE | 2020-01-09 07:28 | XR ---
EXAMINATION TYPE: XR chest 1V portable DATE OF EXAM: 01/09/2020 COMPARISON: 01/08/2020 INDICATION: Pneumonia TECHNIQUE: Single frontal view of the chest is obtained. FINDINGS: The heart size is normal. The pulmonary vasculature is normal. There are peripheral infiltrates to the right and left lung. This is larger on the right midlung. Thi s is somewhat improved over the interval. Left central venous catheter is present with the tip in the superior vena cava region. IMPRESSION: 1. Improving bilateral lung infiltrates.
[2020-01-09] MEDS: DEXTROSE 5% IN WATER 1,000 ML with SODIUM BICARB (1 MEQ/ML) 150 ML IV SCH (07:46)
--- NOTE | 2020-01-09 07:46 | PN ---
PROGRESS NOTE Mrs. Fuller is a 74-year-old female who presented with COVID-19 pneumonia was transferred to the ICU because of progressive dyspnea. She had had episode of anxiety during the night requiring treatment. She continued to be in sinus mechanism. She had some episodes of sinus bradycardia, but no atrial fibrillation. Hemodynamically, her blood pressure has been relatively stable. There is no evidence of ventricular tachyarrhythmia. She continues to be at this time on amlodipine 5 mg daily, aspirin once a day, clonidine patch 0.2 mg daily, metoprolol tartrate 25 mg twice a day. PHYSICAL EXAMINATION: Blood pressure 132/60 with the heart rate in the 60s. LAB DATA: Lab data revealed BUN and creatinine of 80 and 1.73. Her hemoglobin is 8.5. Her LDH is 1147, was slightly better than yesterday. The chest x-ray shows evidence of bilateral infiltrate, more noted on the left side. IMPRESSION: 1. COVID-19 pneumonia with associated dyspnea requiring high-flow oxygen. 2. Acute renal injury stabilizing. 3. Change in mental status. 4. Troponin related to the infectious process. 5. Hyperlipidemia. 6. Hypertension. RECOMMENDATION: From the cardiac standpoint, will continue present therapy. I see no evidence of active cardiac issue at this time. We will see her on an as-needed basis. Please feel free to call us for any question. MMODL / IJN: [id number] /
[2020-01-09] MEDS: ASCORBIC ACID 500 MG TAB PO SCH ×2 (08:10→19:38)
[2020-01-09] MEDS: amLODIPine 5 MG TAB PO SCH (08:10)
[2020-01-09] MEDS: ASPIRIN 81 MG PO SCH (08:10)
[2020-01-09] MEDS: METOPROLOL TARTRATE 25 MG TAB PO SCH ×2 (08:11→19:38)
[2020-01-09] MEDS: LIDOCAINE 5% PATCH TOPICAL SCH (08:11)
[2020-01-09] MEDS: SENNOSIDES 8.6 MG TAB PO SCH ×2 (08:11→19:38)
[2020-01-09] MEDS: CHOLECALCIFEROL 1,000 UNIT TAB PO SCH (08:11)
[2020-01-09] MEDS: ZINC SULFATE 220 MG CAP PO SCH (08:12)
[2020-01-09] MEDS ORDERED: ENOXAPARIN 40 MG/0.4 ML SYRINGE SQ SCH (09:00)
[2020-01-09] MEDS: DEXAMETHASONE SOD PHOSPHATE 10 MG/ML 1 ML VIAL IV SCH (09:21)
[2020-01-09 10:28] LABS: Ferritin 3188.9 ng/mL (10.0-291.0)
[2020-01-09] MEDS: hydrALAZINE HCL 20 MG/ML 1 ML VIAL IVP PRN ×2 (12:02→21:29)
[2020-01-09] MEDS: REMDESIVIR 100 MG in SODIUM CHLORIDE 0.9% 250 ML IVPB SCH (12:02)
[2020-01-09 12:16] LABS: Glucose,Whole Blood 160 mg/dL (75-99)
--- NOTE | 2020-01-09 13:10 | P.PN ---
Subjective Progress Note Date: 01/09/20 Patient was seen for a follow-up. Patient continues to be very encephalopathic, keeps her eyes closed. Appears to be in significant respiratory distress. Coughing very significantly. Patient has oxygen going through [employer]. Patient appears tremulous, mild to moderate rigidity. No seizures. Patient was very restless yesterday. However she has been started on Precedex, now running at 0.35 mg/kg/m. Her chest x-ray showed improving bilateral lung infiltrates. Objective - Vital Signs Vital signs: Vital Signs Temp 97.9 F 01/09/20 08:00 Pulse 85 01/09/20 11:00 Resp 20 01/09/20 11:00 BP 167/124 01/09/20 11:00 Pulse Ox 93 L 01/09/20 11:00 Intake & Output 01/08/20 01/09/20 01/09/20 18:59 06:59 18:59 Intake Total 1450 1441.364 516.504 Output Total 655 615 390 Balance 795 826.364 126.504 Weight 85.2 kg Intake: IV 1450 1200 500 Dextrose 5% in Water 1, 1200 1200 500 000 ml @ 100 mls/hr IV . [id number] ANDREA with Sodium Bicarb (1 Meq/ml) 150 ml Rx#:[id number] Remdesivir (Eua) 100 mg 250 In Sodium Chloride 0.9% 250 ml @ 250 mls/hr IVPB DAILY@1200 ANDREA Rx#: [id number] Intake, IV Titration 35.364 16.504 Amount Dexmedetomidine/0.9% NaCl 35.364 16.504 (Pmx) 400 mcg In Empty Bag 1 bag @ Titrate IV . [facility] Rx#:[id number] Blood Product 206 Ffp Pher Conval Covid19 206 Acda 2 Unit [id number] Output: Urine 655 615 390 Other: Voiding Method Indwelling Catheter Indwelling Catheter Indwelling Catheter # Bowel Movements 0 0 - Exam As above. Her pupils are round and reacting. Gaze is midline. Oculocephalics are present. Patient does mumble. Patient did not answer to any questions, appears to be in significant respiratory distress. Tremulous. Mildly increased tone. Patient is a 2 point restraint. - Labs CBC & Chem 7: 01/09/20 03:15 01/09/20 03:15 Labs: Abnormal Lab Results - Last 24 Hours (Table) 01/08/20 01/09/20 01/09/20 Range/Units 17:19 00:30 03:15 RBC 2.80 L (3.80-5.40) m/uL Hgb 8.5 L D (11.4-16.0) gm/dL Hct 25.2 L (34.0-46.0) % Neutrophils # (Manual) 8.50 H (1.3-7.7) k/uL Lymphocytes # (Manual) 0.47 L (1.0-4.8) k/uL D-Dimer (<0.60) mg/L FEU Potassium (3.5-5.1) mmol/L Chloride (98-107) mmol/L BUN (7-17) mg/dL Creatinine (0.52-1.04) mg/dL Glucose (74-99) mg/dL POC Glucose (mg/dL) 143 H 242 H (75-99) mg/dL Calcium (8.4-10.2) mg/dL Ferritin (10.0-291.0) ng/mL AST (14-36) U/L Lactate Dehydrogenase (313-618) U/L CK-MB (CK-2) (0.0-2.4) ng/mL C-Reactive Protein (<10.0) mg/L Total Protein (6.3-8.2) g/dL Albumin (3.5-5.0) g/dL 01/09/20 01/09/20 01/09/20 Range/Units 03:15 03:15 03:15 RBC (3.80-5.40) m/uL Hgb (11.4-16.0) gm/dL Hct (34.0-46.0) % Neutrophils # (Manual) (1.3-7.7) k/uL Lymphocytes # (Manual) (1.0-4.8) k/uL D-Dimer 2.26 H (<0.60) mg/L FEU Potassium 3.1 L (3.5-5.1) mmol/L Chloride 108 H (98-107) mmol/L BUN 80 H (7-17) mg/dL Creatinine 1.73 H (0.52-1.04) mg/dL Glucose 229 H (74-99) mg/dL POC Glucose (mg/dL) (75-99) mg/dL Calcium 7.8 L (8.4-10.2) mg/dL Ferritin 3188.9 H (10.0-291.0) ng/mL AST 54 H (14-36) U/L Lactate Dehydrogenase 1147 H (313-618) U/L CK-MB (CK-2) 9.0 H (0.0-2.4) ng/mL C-Reactive Protein 122.4 H (<10.0) mg/L Total Protein 4.5 L (6.3-8.2) g/dL Albumin 2.3 L (3.5-5.0) g/dL 01/09/20 01/09/20 Range/Units 06:04 12:15 RBC (3.80-5.40) m/uL Hgb (11.4-16.0) gm/dL Hct (34.0-46.0) % Neutrophils # (Manual) (1.3-7.7) k/uL Lymphocytes # (Manual) (1.0-4.8) k/uL D-Dimer (<0.60) mg/L FEU Potassium (3.5-5.1) mmol/L Chloride (98-107) mmol/L BUN (7-17) mg/dL Creatinine (0.52-1.04) mg/dL Glucose (74-99) mg/dL POC Glucose (mg/dL) 189 H 160 H (75-99) mg/dL Calcium (8.4-10.2) mg/dL Ferritin (10.0-291.0) ng/mL AST (14-36) U/L Lactate Dehydrogenase (313-618) U/L CK-MB (CK-2) (0.0-2.4) ng/mL C-Reactive Protein (<10.0) mg/L Total Protein (6.3-8.2) g/dL Albumin (3.5-5.0) g/dL Microbiology - Last 24 Hours (Table) 01/08/20 20:12 Gram Stain - Preliminary Sputum Sputum Culture - Preliminary 01/07/20 07:30 Blood Culture Gram Stain - Preliminary Blood Blood Culture - Preliminary Haemophilus influenzae 01/07/20 07:30 Blood Culture - Final Blood 11/17/20 15:18 Blood Culture - Preliminary Blood No Growth after 48 hours Assessment and Plan Assessment: * Altered mental status, likely due to toxic metabolic encephalopathy. Patient has acute renal insufficiency, abnormal liver functions on top of severe bilateral pneumonia with oxygen/carbon dioxide mismatch resulting in TME. * Acute bilateral Covid pneumonia. Chest x-ray showed improving bilateral infiltrates. Patient has received Remdesvir on Decadron, vitamin C, vitamin D and zinc. * Bacteremia with Haemophilus influenza, on Rocephin 1 g 24 hours. * Acute renal insufficiency, improving * Anemia, worsening Plan: * Appears patient has toxic metabolic encephalopathy. Patient continues to be very tremulous due to multiple metabolic dysfunction. * Treatment of various metabolic conditions/medical conditions as per IM and critical care. * Infectious disease on the case. Patient has enough medical conditions to produce toxic metabolic encephalopathy. Lumbar puncture, only if recommended by ID. Discussed with Dr. Zavala. * May consider EEG if mentation continues to be off despite improvement in underlying medical conditions. * Neurology coverage not available on the weekend. Dr. Leon will resume neurology coverage on Sunday.
--- NOTE | 2020-01-09 13:48 | P.PN ---
Subjective 74-year-old female is admitted for hypoxia elevated troponins found to have positive Covid. Patient was transferred from outside hospital. Patient at baseline apparently is awake and alert. Patient is oriented 1 at this time. Patient did have fever and shortness of breath because of which patient was sent in here. Patient has elevated urine creatinine of 2.5 baseline is not available but patient apparently has chronic kidney disease. Does follow with a [facility] man as an outpatient. Patient is found to have mildly elevated troponins of 0.2-3. Patient denied any chest pain although patient is extremely poor historian because of her confusion and hearing problems. His blood cultures from the other hospital came back positive for gram-positive cocci unsure whether it's clusters sore repairs. Patient will be started on vancomyci n infectious disease will be consulted may need tube be switched to daptomycin, considering her kidney function. 01/07/2020 Patient is presently on the eighth liters of oxygen although patient is not in respiratory distress whenever she doesn't wear this oxygen his sister AND saturation dropped down to 80%. Patient blood cultures are positive for coag is negative staph which is a contamination and medics will be discontinued. Repeat cultures are pending 01/08/2020 Patient progressively became dyspneic was transferred to intensive care unit patient was started on Rocephin and azithromycin for secondary bacterial pneumonia, IV recommended vancomycin as well. Patient had a central line don fariba.. Creatinine improved to 1.9. Patient is presently on Remdesivir date 3 along with Decadron, vitamin C, vitamin D and zinc 01/09/2020 Patient is bacteremic with Haemophilus influenza repeat blood cultures will be obtained and patient is on Rocephin patient is presently on 55 L of oxygen. Tawana roman has severe toxic encephalopathy with tremors. Neurology evaluated the patient. Review of systems: Unable to obtain due to her clinical condition All inpatient medications were reviewed and appropriate changes in these medications as dictated in the interval history and assessment and plan. Objective - Vital Signs Vital signs: Vital Signs Temp 98.1 F 01/09/20 12:00 Pulse 109 H 01/09/20 13:00 Resp 24 01/09/20 13:00 BP 107/79 01/09/20 13:00 Pulse Ox 92 L 01/09/20 13:00 Intake & Output 01/08/20 01/09/20 01/09/20 18:59 06:59 18:59 Intake Total 1450 1441.364 537.520 Output Total 655 615 390 Balance 795 826.364 147.520 Weight 85.2 kg Intake: IV 1450 1200 500 Dextrose 5% in Water 1, 1200 1200 500 000 ml @ 100 mls/hr IV . [id number] [facility] with Sodium Bicarb (1 Meq/ml) 150 ml Rx#:[id number] Remdesivir (Eua) 100 mg 250 In Sodium Chloride 0.9% 250 ml @ 250 mls/hr IVPB DAILY@1200 [facility] Rx#: [id number] Intake, IV Titration 35.364 37.520 Amount Dexmedetomidine/0.9% NaCl 35.364 37.520 (Pmx) 400 mcg In Empty Bag 1 bag @ Titrate IV . Q0M [facility] Rx#:[id number] Blood Product 206 Ffp Pher Conval Covid19 206 Acda 2 Unit [id number] Output: Urine 655 615 390 Other: Voiding Method Indwelling Catheter Indwelling Catheter Indwelling Catheter # Bowel Movements 0 0 - Exam PHYSICAL EXAMINATION: GENERAL: The patient is alert and oriented x1, not in any acute distress. Well developed, well nourished. Patient has nonessential tremor, possibility of myoclonus HEENT: Pupils are round and equally reacting to light. EOMI. No scleral icterus. No conjunctival pallor. Normocephalic, atraumatic. No pharyngeal erythema. No thyromegaly. CARDIOVASCULAR: S1 and S2 present. No murmurs, rubs, or gallops. PULMONARY: Bilateral crackles and rhonchi diffusely ABDOMEN: Soft, nontender, nondistended, normoactive bowel sounds. No palpable organomegaly. MUSCULOSKELETAL: No joint swelling or deformity. EXTREMITIES: No cyanosis, clubbing, or pedal edema. NEUROLOGICAL: Gross neurological examination did not reveal any focal deficits. SKIN: No rashes. Note: Because of COVID 19 isolation, some of the history and physical exam findings are indirect and obtained from nursing staff, and other physician examinations to avoid unnecessary contact with the patient. - Labs CBC & Chem 7: 01/09/20 03:15 01/09/20 03:15 Labs: Abnormal Lab Results - Last 24 Hours (Table) 01/08/20 01/09/20 01/09/20 Range/Units 17:19 00:30 03:15 RBC 2.80 L (3.80-5.40) m/uL Hgb 8.5 L D (11.4-16.0) gm/dL Hct 25.2 L (34.0-46.0) % Neutrophils # (Manual) 8.50 H (1.3-7.7) k/uL Lymphocytes # (Manual) 0.47 L (1.0-4.8) k/uL D-Dimer (<0.60) mg/L FEU Potassium (3.5-5.1) mmol/L Chloride (98-107) mmol/L BUN (7-17) mg/dL Creatinine (0.52-1.04) mg/dL Glucose (74-99) mg/dL POC Glucose (mg/dL) 143 H 242 H (75-99) mg/dL Calcium (8.4-10.2) mg/dL Ferritin (10.0-291.0) ng/mL AST (14-36) U/L Lactate Dehydrogenase (313-618) U/L CK-MB (CK-2) (0.0-2.4) ng/mL C-Reactive Protein (<10.0) mg/L Total Protein (6.3-8.2) g/dL Albumin (3.5-5.0) g/dL 01/09/20 01/09/20 01/09/20 Range/Units 03:15 03:15 03:15 RBC (3.80-5.40) m/uL Hgb (11.4-16.0) gm/dL Hct (34.0-46.0) % Neutrophils # (Manual) (1.3-7.7) k/uL Lymphocytes # (Manual) (1.0-4.8) k/uL D-Dimer 2.26 H (<0.60) mg/L FEU Potassium 3.1 L (3.5-5.1) mmol/L Chloride 108 H (98-107) mmol/L BUN 80 H (7-17) mg/dL Creatinine 1.73 H (0.52-1.04) mg/dL Glucose 229 H (74-99) mg/dL POC Glucose (mg/dL) (75-99) mg/dL Calcium 7.8 L (8.4-10.2) mg/dL Ferritin 3188.9 H (10.0-291.0) ng/mL AST 54 H (14-36) U/L Lactate Dehydrogenase 1147 H (313-618) U/L CK-MB (CK-2) 9.0 H (0.0-2.4) ng/mL C-Reactive Protein 122.4 H (<10.0) mg/L Total Protein 4.5 L (6.3-8.2) g/dL Albumin 2.3 L (3.5-5.0) g/dL 01/09/20 01/09/20 Range/Units 06:04 12:15 RBC (3.80-5.40) m/uL Hgb (11.4-16.0) gm/dL Hct (34.0-46.0) % Neutrophils # (Manual) (1.3-7.7) k/uL Lymphocytes # (Manual) (1.0-4.8) k/uL D-Dimer (<0.60) mg/L FEU Potassium (3.5-5.1) mmol/L Chloride (98-107) mmol/L BUN (7-17) mg/dL Creatinine (0.52-1.04) mg/dL Glucose (74-99) mg/dL POC Glucose (mg/dL) 189 H 160 H (75-99) mg/dL Calcium (8.4-10.2) mg/dL Ferritin (10.0-291.0) ng/mL AST (14-36) U/L Lactate Dehydrogenase (313-618) U/L CK-MB (CK-2) (0.0-2.4) ng/mL C-Reactive Protein (<10.0) mg/L Total Protein (6.3-8.2) g/dL Albumin (3.5-5.0) g/dL Microbiology - Last 24 Hours (Table) 01/07/20 07:30 Blood Culture Gram Stain - Preliminary Blood Blood Culture - Final Haemophilus influenzae 01/08/20 20:12 Gram Stain - Preliminary Sputum Sputum Culture - Preliminary 01/07/20 07:30 Blood Culture - Final Blood 01/06/20 15:18 Blood Culture - Preliminary Blood No Growth after 48 hours Assessment and Plan Plan: -Acute hypoxic respiratory failure: Probably secondary to covid 19 pneumonia. Patient was started on Decadron and Remdesivir patient is presently on a 55 L of oxygen - secondary bacterial pneumonia , patient has bacteremia with Haemophilus influenza, patient is on Rocephin presently. - bacteremia: -Toxic encephalopathy, altered mental status: Secondary to infection -Elevated troponin secondary to infection and renal failure -Possible difficulty renal failure patient does have chronic kidney disease unable to stage chronic kidney disease is at baseline is not known. Patient will continued on IV fluids -Hypertension -Hyperlipidemia Possible myoclonus: Secondary to encephalopathy, neurology evaluated the patient. -DVT prophylaxis with heparin
--- NOTE | 2020-01-09 15:53 | P.PN ---
Subjective Progress Note Date: 01/09/20 A 74-year-old female patient, very poor historian with what seems to be advanced dementia in addition to history of hypertension and hyperlipidemia was coming in for shortness of breath and hypoxemia and this has been confirmed to be related to COVID 19 infection/pneumonia. The patient was transferred from an outside hospital. The patient is unable to give any further history. Review of her chest x-ray shows that the patient is a peripheral patchy pulmonary interstitial airspace disease infiltrates bilaterally and the patient is currently on 8 L of oxygen by nasal cannula to maintain a saturation above 90%. Her current pulse ox is around 93%. The white cell count is at 10.6. The patient also has a renal failure and the chronicity of the renal failure is not established. Her previous creatinine is unknown to me at this point in time. She also has a mild component of anion gap metabolic acidosis with a anion gap of 14 and a serum bicarb level of 17. LDH is 1213 and the patient is a CRP of 301. Also, the patient had a troponin leak with troponin levels being at 0.1 0.1 and 0.2 resp ectively. Pro calcitonin level was elevated at 1.54. She is afebrile. The blood cultures from the outside hospital showing gram-positive cocci and is not sure if it was in clusters overnight. The patient was started on vancomycin as an empiric antibiotic coverage. In terms of Covid 19 infection, the patient was started on a combination of Decadron and Remdesivir The patient is seen today 01/07/2020 in follow-up on selective care unit. She does have advanced dementia and is a poor historian. She is currently resting fairly comfortably in bed. She is on 8 L high flow nasal cannula to maintain O2 saturations in the 90s. She's afebrile. Hemodynamically stable. White count 27.1. Hemoglobin 12.2. Lymphocytes 0.81. Sodium 139. Potassium 4.2. Bicarb 14. Creatinine 2.06. AST 102. ALT 47. Troponin 0.266. C-reactive protein 192. Pro calcitonin 1.45. She remains on Decadron, vitamin C, vitamin D, zinc. She is receiving day #2 of Remdesivir. On 01/08/2020, the patient has been transferred to the intensive care unit. The patient developed progressive dyspnea tachypnea and hypoxemia overnight and the patient had to be transferred to the intensive care unit. At this point in time, the patient is confused, lethargic, at times agitated, unable to follow any commands and unable to hold a conversation. She gets quite restless when stimulated. She is sensing critical condition on 4 extremities. No neck stiffness. She is moving all 4 extremities and the patient has no focal neurological deficits. No neck stiffness. The patient was noted to have a possible culture an outside hospital and the patient was given vancomycin in addition to Zithromax and Rocephin per IDs recommendation. Nevertheless, based on our cultures, the results are still negative for now and there is no clear evidence of any bacterial infection at this point in time. Noted the Pro calci tonin level was elevated. At the same time, the patient has acute Covid 19 related to pneumonia bilateral. The patient is on high flow oxygen at 15 L with an FiO2 of 73% to maintain a saturation above 90%. A triple lumen catheter was established in the left subclavian. The chest x-ray post line insertion showed no evidence of any pneumothorax. Nevertheless, there was dense bilateral pulmonary infiltrates consistent with coronavirus Covid 19 related pneumonia. The patient is obviously tachypneic. She is having respiratory distress even on high flow oxygen. No use of accessory muscles of breathing. The blood work from today shows a troponin of 0.23. Vancomycin level is at 19.9. The patient a component of non-anion gap metabolic acidosis from yesterday. The patient is a bicarb drip which is running at 100 mL an hour. Serum bicarb is up to 18. Creatinine is down to 1.9, somewhat improved compared to yesterday. At the same time, the patient is being treated with a combination of Decadron, vitamin C, vitamin D, zinc. She is receiving day #3 of Remdesivir. On 01/09/2020, the patient seems to be less agitated as the patient was started on Precedex which is currently running at 0.25 mg per KG per minute. The patient seems to much more comfortable at this point in time. She remains on high flow oxygen 55 L with an FiO2 of 85% with a pulse ox of 96%. The patient's chest x-ray still showing diffuse breath and pulmonary infiltrates. Note that the patient was infected with Covid 19 and she had a Covid 19 related pneumonia in addition to septic shock secondary to Haemophilus influenza bacteremia. Noted the patient's blood culture came back positive for Haemophilus influenza. The patient is currently on IV Rocephin 2 g every 24 hours in regards to this septicemia. The patient is also being treated for coronavirus Covid 19 pneumonia with a combination of Decadron and Remdesivir and the patient also received a unit of, convalescent plasma. The patient has a ferritin level of 3188. The patient has a LDH of 1147 and the CRP is down to 122. The patient is afebrile. Renal function and for the creatinine is down to 1.7. Serum bicarbs of 28 and the patient was being given D5 with 3 A of bicarb at the rate of 100 mL an hour. She is afebrile. She is still moans and at times becomes restless and tremulous. Nevertheless, there is no seizure activity noted and the patient is not able to follow single commands. Which are diffuse. There is peripheral infiltrate in the right and the left. There is somewhat improvement in pulmonary infiltration. Is a left sided subclavian triple-lumen catheter in place. The Pro calcitonin level is down to 1.45. Objective - Vital Signs Vital signs: Vital Signs Temp 98.1 F 01/09/20 12:00 Pulse 105 H 01/09/20 14:00 Resp 31 H 01/09/20 14:00 BP 142/110 01/09/20 14:00 Pulse Ox 94 L 01/09/20 14:00 Intake & Output 01/08/20 01/09/20 01/09/20 18:59 06:59 18:59 Intake Total 1450 1441.364 837.520 Output Total 655 615 540 Balance 795 826.364 297.520 Weight 85.2 kg Intake: IV 1450 1200 800 Dextrose 5% in Water 1, 1200 1200 800 000 ml @ 100 mls/hr IV . [id number] [facility] with Sodium Bicarb (1 Meq/ml) 150 ml Rx#:[id number] Remdesivir (Eua) 100 mg 250 In Sodium Chloride 0.9% 250 ml @ 250 mls/hr IVPB DAILY@1200 ANDREA Rx#: [id number] Intake, IV Titration 35.364 37.520 Amount Dexmedetomidine/0.9% NaCl 35.364 37.520 (Pmx) 400 mcg In Empty Bag 1 bag @ Titrate IV . Q0M [facility] Rx#:[id number] Blood Product 206 Ffp Pher Conval Covid19 206 Acda 2 Unit [id number] Output: Urine 655 615 540 Other: Voiding Method Indwelling Catheter Indwelling Catheter Indwelling Catheter # Bowel Movements 0 0 - Exam GENERAL: This is a 74-year-old female patient is arousable. Sedated and agitation is well controlled while being on Precedex drip. The dose being titrated to control the agitation. No seizure activity. No neck stiffness. Unable to hold a combination of this point in time. She is resting and sleeping comfortably. Head exam was generally normal. There was no scleral icterus or corneal arcus. Mucous membranes were moist. HEENT: Pupils are round and equally reacting to light. EOMI. No scleral icterus. No conjunctival pallor. Normocephalic, atraumatic. No pharyngeal erythema. No thyromegaly. The patient subclavian triple lumen catheter inserted in left subclavian vein. CARDIOVASCULAR: S1 and S2 present. No murmurs, rubs, or gallops. PULMONARY: Lungs with bilateral scattered rhonchi , the patient has crackles in the mid and lower lung kaiser bilaterally. ABDOMEN: Soft, nontender, nondistended, normoactive bowel sounds. No palpable organomegaly. MUSCULOSKELETAL: No joint swelling or deformity. EXTREMITIES: No cyanosis, clubbing, or pedal edema. NEUROLOGICAL: Gross neurological examination did not reveal any focal deficits. SHE IS CONFUSED. SHE IS AT TIMES AGITATED. UNABLE TO maintain a conversation. Unable to answer any questions. Pupils are round 3 mm in size and they're reactive to light. No nystagmus. No neck stiffness. No clonus. Reflexes are symmetrical. No muscle rigidity. SKIN: No rashes. - Labs CBC & Chem 7: 01/09/20 03:15 01/09/20 03:15 Labs: Abnormal Lab Results - Last 24 Hours (Table) 01/08/20 01/09/20 01/09/20 Range/Units 17:19 00:30 03:15 RBC 2.80 L (3.80-5.40) m/uL Hgb 8.5 L D (11.4-16.0) gm/dL Hct 25.2 L (34.0-46.0) % Neutrophils # (Manual) 8.50 H (1.3-7.7) k/uL Lymphocytes # (Manual) 0.47 L (1.0-4.8) k/uL D-Dimer (<0.60) mg/L FEU Potassium (3.5-5.1) mmol/L Chloride (98-107) mmol/L BUN (7-17) mg/dL Creatinine (0.52-1.04) mg/dL Glucose (74-99) mg/dL POC Glucose (mg/dL) 143 H 242 H (75-99) mg/dL Calcium (8.4-10.2) mg/dL Ferritin (10.0-291.0) ng/mL AST (14-36) U/L Lactate Dehydrogenase (313-618) U/L CK-MB (CK-2) (0.0-2.4) ng/mL C-Reactive Protein (<10.0) mg/L Total Protein (6.3-8.2) g/dL Albumin (3.5-5.0) g/dL 01/09/20 01/09/20 01/09/20 Range/Units 03:15 03:15 03:15 RBC (3.80-5.40) m/uL Hgb (11.4-16.0) gm/dL Hct (34.0-46.0) % Neutrophils # (Manual) (1.3-7.7) k/uL Lymphocytes # (Manual) (1.0-4.8) k/uL D-Dimer 2.26 H (<0.60) mg/L FEU Potassium 3.1 L (3.5-5.1) mmol/L Chloride 108 H (98-107) mmol/L BUN 80 H (7-17) mg/dL Creatinine 1.73 H (0.52-1.04) mg/dL Glucose 229 H (74-99) mg/dL POC Glucose (mg/dL) (75-99) mg/dL Calcium 7.8 L (8.4-10.2) mg/dL Ferritin 3188.9 H (10.0-291.0) ng/mL AST 54 H (14-36) U/L Lactate Dehydrogenase 1147 H (313-618) U/L CK-MB (CK-2) 9.0 H (0.0-2.4) ng/mL C-Reactive Protein 122.4 H (<10.0) mg/L Total Protein 4.5 L (6.3-8.2) g/dL Albumin 2.3 L (3.5-5.0) g/dL 01/09/20 01/09/20 Range/Units 06:04 12:15 RBC (3.80-5.40) m/uL Hgb (11.4-16.0) gm/dL Hct (34.0-46.0) % Neutrophils # (Manual) (1.3-7.7) k/uL Lymphocytes # (Manual) (1.0-4.8) k/uL D-Dimer (<0.60) mg/L FEU Potassium (3.5-5.1) mmol/L Chloride (98-107) mmol/L BUN (7-17) mg/dL Creatinine (0.52-1.04) mg/dL Glucose (74-99) mg/dL POC Glucose (mg/dL) 189 H 160 H (75-99) mg/dL Calcium (8.4-10.2) mg/dL Ferritin (10.0-291.0) ng/mL AST (14-36) U/L Lactate Dehydrogenase (313-618) U/L CK-MB (CK-2) (0.0-2.4) ng/mL C-Reactive Protein (<10.0) mg/L Total Protein (6.3-8.2) g/dL Albumin (3.5-5.0) g/dL Microbiology - Last 24 Hours (Table) 01/07/20 07:30 Blood Culture Gram Stain - Preliminary Blood Blood Culture - Final Haemophilus influenzae 01/08/20 20:12 Gram Stain - Preliminary Sputum Sputum Culture - Preliminary 01/07/20 07:30 Blood Culture - Final Blood 01/06/20 15:18 Blood Culture - Preliminary Blood No Growth after 48 hours Assessment and Plan Plan: 1 Acute bilateral COVID 19 pneumonia, with secondary respiratory failure. The patient is currently on high flow oxygen at . She is currently being treated for Covid 19 infection/pneumonia. 2 Acute hypoxic respiratory failure, currently on high flow oxygen by nasal cannula. 3 bacteremia sepsis secondary to Haemophilus influenza, likely of a pulmonary source and the patient is currently on Rocephin 2 g every 24 hours 4 SELENE versus chronic kidney failure, creatinine continues to improve and the pat ient shows improvement with the metabolic acidosis with a bicarb infusion 5 Non anion gap meabolic acidosis, recovered 5 altered mental status /encephalopathy, likely metabolic in nature as the butch ent has Covid 19 related pneumonia in addition to septicemia secondary to Haemophilus influenza and the patient is currently on Precedex to control the agitation. No significant respiratory suppression while being on Precedex and the patient is able to tolerate the infusion without any major difficulties. Nevertheless, she remains on high flow oxygen as the patient is profoundly hypoxic secondary to underlying pneumonia. 6 hypertension 7 hyperlipidemia 8 troponin leak with a preserved LV function. Plan Keep the patient adequately oxygenated with high flow oxygen at 55 L with an FiO2 of 85% Continue the combination of Decadron and Remdesivir regarding the Covid 19 related pneumonia and the patient also received a unit of convalescent plasma Continue IV Rocephin regarding Haemophilus influenza sepsis Stop the the bicarbonate infusion and replace it with a normal state rate of 75 mL an hour Monitor renal function Anticoagulation with Lovenox 40 mg subcu every 24 hours, d-dimer is at 2.26 We'll continue to follow. Prognosis poor baseline above-mentioned comorbidities. Monitor respiratory status very closely. condition is critical. High likely that the patient may require intubation mechanical ventilation. Contacted the daughter and updated on the condition. There is a critically care evaluation that was done and more than 30 minutes. Time with Patient: Greater than 30
[2020-01-09 16:50] LABS: Glucose,Whole Blood 192 mg/dL (75-99)
[2020-01-09] MEDS: SODIUM CHLORIDE 0.9% 1,000 ML IV SCH (17:01)
[2020-01-09] MEDS: ALBUTEROL HFA INHALER INHALATION PRN ×2 (17:06→21:06)
--- NOTE | 2020-01-09 23:02 | PN ---
PROGRESS NOTE DATE OF SERVICE: 01/09/2020 REASON FOR FOLLOWUP: Haemophilus influenzae bacteremia; source pneumonia. INTERVAL HISTORY: The patient is currently afebrile. The patient is hemodynamically stable, not on any pressor support. The patient remains pleasantly confused, unable to provide any history. No vomiting or any diarrhea has been reported by the nursing staff. The patient was unable to provide any history. PHYSICAL EXAMINATION: Blood pressure 110/60 with a pulse of 98, temperature 99.4. She is 96% on high- flow oxygen. General description is an elderly female lying in bed in no distress. RESPIRATORY SYSTEM: Unlabored breathing with decreased breath sounds at the base. No wheeze. HEART: S1, S2. Regular rate and rhythm. ABDOMEN: Soft. No tenderness. EXTREMITIES: No edema of the feet. NEUROLOGICAL: The patient remains pleasantly confused. No neck rigidity. LABS: Hemoglobin 8.5, white count 9.3, creatinine 1.73. Inflammatory markers remain elevated. Procalcitonin is 0.72. Blood culture with Haemophilus influenzae. Sputum culture pending. DIAGNOSTIC IMPRESSION AND PLAN: Patient with Haemophilus influenzae bacteremia. Source is likely pneumonia. Clinically not behaving as meningitis as she does not have any neck rigidity. Antibiotic has been adjusted to Rocephin 2 grams daily; to continue while monitoring her clinical course closely. Continue with supportive care. MMODL / IJN: [id number] / MTDD
[2020-01-09 23:48] LABS: Glucose,Whole Blood 142 mg/dL (75-99)
[2020-01-10] MEDS: INSULIN ASPART (NovoLOG) 100 UNIT/ML VIAL SQ SCH ×4 (00:11→17:14)
[2020-01-10 03:51] LABS: HCT 29.6 % (34.0-46.0); HGB 9.9 gm/dL (11.4-16.0); MCH 30.3 pg (25.0-35.0); MCHC 33.4 g/dL (31.0-37.0); MCV 90.6 fL (80.0-100.0); Mean Platelet Volume 7.8; Platelet Count 250 k/uL (150-450); RBC 3.27 m/uL (3.80-5.40); RDW 13.8 % (11.5-15.5); WBC 16.7 k/uL (3.8-10.6)
[2020-01-10 04:04] LABS: Albumin 2.5 g/dL (3.5-5.0); C Reactive Protein 73.2 mg/L (<10.0); Calcium 8.1 mg/dL (8.4-10.2); Potassium 3.8 mmol/L (3.5-5.1); Total Bilirubin 0.8 mg/dL (0.2-1.3); Total Protein 5.1 g/dL (6.3-8.2)
[2020-01-10] MEDS: hydrALAZINE HCL 20 MG/ML 1 ML VIAL IVP PRN ×2 (04:04→14:12)
[2020-01-10 04:35] LABS: Band Neutrophils % 2 %; Metamyelocytes # (M) 0.17 k/uL (0); Metamyelocytes % 1 %; Monocytes # (M) 0.33 k/uL (0-1.0); Neutrophils % (M) 95 %; Nucleated Red Blood Cells 0 /100 WBC (0-0); Total Cells Counted 200
[2020-01-10] MEDS ORDERED: POTASSIUM CHLORIDE 20 MEQ in WATER FOR INJECTION 1 100ML.BAG IVPB STA (04:41)
[2020-01-10 05:35] LABS: Glucose,Whole Blood 129 mg/dL (75-99)
[2020-01-10] MEDS: SODIUM CHLORIDE 0.9% 1,000 ML IV SCH (05:48)
--- NOTE | 2020-01-10 07:32 | XR ---
EXAMINATION TYPE: XR chest 1V portable DATE OF EXAM: 01/10/2020 HISTORY: Shortness of breath. COMPARISON: 01/09/2020 TECHNIQUE: Single view of the chest is submitted. FINDINGS: Demonstrated are scattered senescent parenchymal change. Persistent airspace infiltrates throughout the left lung remain essentially unchanged. Scattered infi ltrates within the periphery of the right lung may have improved slightly. The heart is stable. Hilar and mediastinal structures are within normal limits. Degenerative changes are seen of the dorsal spine. IMPRESSION: 1. Persistent airspace infiltrates throughout the left lung remain essentially unchanged. Scattered infiltrates within the periphery of the right lung may have improved slightly.
[2020-01-10] MEDS: ALBUTEROL HFA INHALER INHALATION PRN (08:27)
[2020-01-10] MEDS: ASCORBIC ACID 500 MG TAB PO SCH ×2 (10:43→19:48)
[2020-01-10] MEDS: ASPIRIN 81 MG PO SCH (10:43)
[2020-01-10] MEDS: CHOLECALCIFEROL 1,000 UNIT TAB PO SCH (10:43)
[2020-01-10] MEDS: LIDOCAINE 5% PATCH TOPICAL SCH (10:44)
[2020-01-10] MEDS: ZINC SULFATE 220 MG CAP PO SCH (10:44)
[2020-01-10] MEDS: SENNOSIDES 8.6 MG TAB PO SCH ×2 (10:44→19:49)
[2020-01-10] MEDS: METOPROLOL TARTRATE 25 MG TAB PO SCH ×2 (10:44→19:49)
[2020-01-10 12:22] LABS: Glucose,Whole Blood 155 mg/dL (75-99)
--- NOTE | 2020-01-10 12:25 | P.PN ---
Subjective 74-year-old female is admitted for hypoxia elevated troponins found to have positive Covid. Patient was transferred from outside hospital. Patient at baseline apparently is awake and alert. Patient is oriented 1 at this time. Patient did have fever and shortness of breath because of which patient was sent in here. Patient has elevated urine creatinine of 2.5 baseline is not available but patient apparently has chronic kidney disease. Does follow with a gis analyst as an outpatient. Patient is found to have mildly elevated troponins of 0.2-3. Patient denied any chest pain although patient is extremely poor historian because of her confusion and hearing problems. His blood cultures from the other hospital came back positive for gram-positive cocci unsure whether it's clusters sore repairs. Patient will be started on vancomyci n infectious disease will be consulted may need tube be switched to daptomycin, considering her kidney function. 01/07/2020 Patient is presently on the eighth liters of oxygen although patient is not in respiratory distress whenever she doesn't wear this oxygen his sister AND saturation dropped down to 80%. Patient blood cultures are positive for coag is negative staph which is a contamination and medics will be discontinued. Repeat cultures are pending 01/08/2020 Patient progressively became dyspneic was transferred to intensive care unit patient was started on Rocephin and azithromycin for secondary bacterial pneumonia, IV recommended vancomycin as well. Patient had a central line don fariba.. Creatinine improved to 1.9. Patient is presently on Remdesivir date 3 along with Decadron, vitamin C, vitamin D and zinc 01/09/2020 Patient is bacteremic with Haemophilus influenza repeat blood cultures will be obtained and patient is on Rocephin patient is presently on 55 L of oxygen. Tawana roman has severe toxic encephalopathy with tremors. Neurology evaluated the patient. 01/10/2020 Patient's tremors and shaking he is better patient continues to be on Pracedex. Bicarbonate drip was discontinued patient has hyperchloremia and hyper next anemia because of which patient will be switched to half-normal saline. Review of systems: Unable to obtain due to her clinical condition All inpatient medications were reviewed and appropriate changes in these medications as dictated in the interval history and assessment and plan. Objective - Vital Signs Vital signs: Vital Signs Temp 100.1 F H 01/10/20 04:00 Pulse 106 H 01/10/20 07:00 Resp 19 01/10/20 07:00 BP 160/87 01/10/20 07:00 Pulse Ox 96 01/10/20 07:24 Intake & Output 01/09/20 01/10/20 01/10/20 18:59 06:59 18:59 Intake Total 1388.232 918.762 75 Output Total 865 1020 120 Balance 523.232 -101.238 -45 Weight 82.9 kg Intake: IV 1300 900 75 Dextrose 5% in Water 1, 900 000 ml @ 100 mls/hr IV . [id number] ANDREA with Sodium Bicarb (1 Meq/ml) 150 ml Rx#:[id number] Sodium Chloride 0.9% 1, 300 900 75 000 ml @ 75 mls/hr IV . [id number] [facility]REA Rx#:[id number] cefTRIAXone 2 gm In 100 Sodium Chloride 0.9% 50 ml @ 100 mls/hr IVPB Q24H [facility]A Rx#:[id number] Intake, IV Titration 88.232 18.762 Amount Dexmedetomidine/0.9% NaCl 88.232 18.762 (Pmx) 400 mcg In Empty Bag 1 bag @ Titrate IV . Q0M ANDREA Rx#:[id number] Output: Urine 865 1020 120 Other: Voiding Method Indwelling Catheter Indwelling Catheter # Bowel Movements 0 - Exam PHYSICAL EXAMINATION: GENERAL: The patient is alert and oriented x1, not in any acute distress. Well developed, well nourished. Patient has nonessential tremor, possibility of myoclonus HEENT: Pupils are round and equally reacting to light. EOMI. No scleral icterus. No conjunctival pallor. Normocephalic, atraumatic. No pharyngeal erythema. No thyromegaly. CARDIOVASCULAR: S1 and S2 present. No murmurs, rubs, or gallops. PULMONARY: Bilateral crackles and rhonchi diffusely ABDOMEN: Soft, nontender, nondistended, normoactive bowel sounds. No palpable organomegaly. MUSCULOSKELETAL: No joint swelling or deformity. EXTREMITIES: No cyanosis, clubbing, or pedal edema. NEUROLOGICAL: Gross neurological examination did not reveal any focal deficits. SKIN: No rashes. Note: Because of COVID 19 isolation, some of the history and physical exam findings are indirect and obtained from nursing staff, and other physician examinations to avoid unnecessary contact with the patient. - Labs CBC & Chem 7: 01/10/20 03:30 01/10/20 03:30 Labs: Abnormal Lab Results - Last 24 Hours (Table) 01/09/20 01/09/20 01/09/20 Range/Units 03:15 16:48 23:47 WBC (3.8-10.6) k/uL RBC (3.80-5.40) m/uL Hgb (11.4-16.0) gm/dL Hct (34.0-46.0) % Neutrophils # (Manual) (1.3-7.7) k/uL Metamyelocytes # (Man) (0) k/uL D-Dimer (<0.60) mg/L FEU Sodium (137-145) mmol/L Chloride (98-107) mmol/L Carbon Dioxide (22-30) mmol/L BUN (7-17) mg/dL Creatinine (0.52-1.04) mg/dL Glucose (74-99) mg/dL POC Glucose (mg/dL) 192 H 142 H (75-99) mg/dL Calcium (8.4-10.2) mg/dL AST (14-36) U/L Lactate Dehydrogenase (313-618) U/L C-Reactive Protein (<10.0) mg/L Total Protein (6.3-8.2) g/dL Albumin (3.5-5.0) g/dL Procalcitonin 0.72 H (0.02-0.09) ng/mL 01/10/20 01/10/20 01/10/20 Range/Units 03:30 03:30 03:30 WBC 16.7 H (3.8-10.6) k/uL RBC 3.27 L (3.80-5.40) m/uL Hgb 9.9 L (11.4-16.0) gm/dL Hct 29.6 L (34.0-46.0) % Neutrophils # (Manual) 16.10 H (1.3-7.7) k/uL Metamyelocytes # (Man) 0.17 H (0) k/uL D-Dimer 3.79 H (<0.60) mg/L FEU Sodium (137-145) mmol/L Chloride (98-107) mmol/L Carbon Dioxide (22-30) mmol/L BUN (7-17) mg/dL Creatinine (0.52-1.04) mg/dL Glucose (74-99) mg/dL POC Glucose (mg/dL) (75-99) mg/dL Calcium (8.4-10.2) mg/dL AST (14-36) U/L Lactate Dehydrogenase (313-618) U/L C-Reactive Protein (<10.0) mg/L Total Protein (6.3-8.2) g/dL Albumin (3.5-5.0) g/dL Procalcitonin 0.42 H (0.02-0.09) ng/mL 01/10/20 01/10/20 Range/Units 03:30 05:34 WBC (3.8-10.6) k/uL RBC (3.80-5.40) m/uL Hgb (11.4-16.0) gm/dL Hct (34.0-46.0) % Neutrophils # (Manual) (1.3-7.7) k/uL Metamyelocytes # (Man) (0) k/uL D-Dimer (<0.60) mg/L FEU Sodium 147 H (137-145) mmol/L Chloride 110 H (98-107) mmol/L Carbon Dioxide 33 H (22-30) mmol/L BUN 65 H (7-17) mg/dL Creatinine 1.52 H (0.52-1.04) mg/dL Glucose 116 H (74-99) mg/dL POC Glucose (mg/dL) 129 H (75-99) mg/dL Calcium 8.1 L (8.4-10.2) mg/dL AST 62 H (14-36) U/L Lactate Dehydrogenase 1789 H (313-618) U/L C-Reactive Protein 73.2 H (<10.0) mg/L Total Protein 5.1 L (6.3-8.2) g/dL Albumin 2.5 L (3.5-5.0) g/dL Procalcitonin (0.02-0.09) ng/mL Microbiology - Last 24 Hours (Table) 01/08/20 20:46 Blood Culture - Preliminary Blood No Growth after 24 hours 01/06/20 15:18 Blood Culture - Preliminary Blood No Growth after 72 hours 01/07/20 07:30 Blood Culture Gram Stain - Preliminary Blood Blood Culture - Final Haemophilus influenzae 01/08/20 20:12 Gram Stain - Preliminary Sputum Sputum Culture - Preliminary Assessment and Plan Plan: -Acute hypoxic respiratory failure: Probably secondary to covid 19 pneumonia. Patient was started on Decadron and Remdesivir patient is presently on a 55 L of oxygen - secondary bacterial pneumonia , patient has bacteremia with Haemophilus influenza, patient is on Rocephin presently. - bacteremia: -Toxic encephalopathy, altered mental status: Secondary to infection -Elevated troponin secondary to infection and renal failure -Possible difficulty renal failure patient does have chronic kidney disease unable to stage chronic kidney disease is at baseline is not known. Patient will continued on IV fluids -Hypertension -Hyperlipidemia Possible myoclonus: Secondary to encephalopathy, neurology evaluated the patient. -DVT prophylaxis with heparin
[2020-01-10] MEDS: ENOXAPARIN 40 MG/0.4 ML SYRINGE SQ SCH ×2 (12:32→19:52)
[2020-01-10] MEDS: DEXAMETHASONE SOD PHOSPHATE 10 MG/ML 1 ML VIAL IV SCH (12:36)
[2020-01-10] MEDS: SODIUM CHLORIDE 0.45% 1,000 ML IV SCH (12:36)
[2020-01-10] MEDS: REMDESIVIR 100 MG in SODIUM CHLORIDE 0.9% 250 ML IVPB SCH (12:36)
[2020-01-10] MEDS: cloNIDine 0.3 MG/24HR PATCH TRANSDERM SCH (12:40)
[2020-01-10 13:50] LABS: Hemoglobin A1C 6.9 % (4.0-6.0)
[2020-01-10] MEDS: DEXMEDETOMIDINE/0.9% NACL(PMX) 400 MCG in EMPTY BAG 1 BAG IV SCH (14:11)
--- NOTE | 2020-01-10 16:31 | P.PN ---
Subjective Progress Note Date: 01/10/20 A 74-year-old female patient, very poor historian with what seems to be advanced dementia in addition to history of hypertension and hyperlipidemia was coming in for shortness of breath and hypoxemia and this has been confirmed to be related to COVID 19 infection/pneumonia. The patient was transferred from an outside hospital. The patient is unable to give any further history. Review of her chest x-ray shows that the patient is a peripheral patchy pulmonary interstitial airspace disease infiltrates bilaterally and the patient is currently on 8 L of oxygen by nasal cannula to maintain a saturation above 90%. Her current pulse ox is around 93%. The white cell count is at 10.6. The patient also has a renal failure and the chronicity of the renal failure is not established. Her previous creatinine is unknown to me at this point in time. She also has a mild component of anion gap metabolic acidosis with a anion gap of 14 and a serum bicarb level of 17. LDH is 1213 and the patient is a CRP of 301. Also, the patient had a troponin leak with troponin levels being at 0.1 0.1 and 0.2 resp ectively. Pro calcitonin level was elevated at 1.54. She is afebrile. The blood cultures from the outside hospital showing gram-positive cocci and is not sure if it was in clusters overnight. The patient was started on vancomycin as an empiric antibiotic coverage. In terms of Covid 19 infection, the patient was started on a combination of Decadron and Remdesivir The patient is seen today 01/07/2020 in follow-up on selective care unit. She does have advanced dementia and is a poor historian. She is currently resting fairly comfortably in bed. She is on 8 L high flow nasal cannula to maintain O2 saturations in the 90s. She's afebrile. Hemodynamically stable. White count 27.1. Hemoglobin 12.2. Lymphocytes 0.81. Sodium 139. Potassium 4.2. Bicarb 14. Creatinine 2.06. AST 102. ALT 47. Troponin 0.266. C-reactive protein 192. Pro calcitonin 1.45. She remains on Decadron, vitamin C, vitamin D, zinc. She is receiving day #2 of Remdesivir. On 01/08/2020, the patient has been transferred to the intensive care unit. The patient developed progressive dyspnea tachypnea and hypoxemia overnight and the patient had to be transferred to the intensive care unit. At this point in time, the patient is confused, lethargic, at times agitated, unable to follow any commands and unable to hold a conversation. She gets quite restless when stimulated. She is sensing critical condition on 4 extremities. No neck stiffness. She is moving all 4 extremities and the patient has no focal neurological deficits. No neck stiffness. The patient was noted to have a possible culture an outside hospital and the patient was given vancomycin in addition to Zithromax and Rocephin per IDs recommendation. Nevertheless, based on our cultures, the results are still negative for now and there is no clear evidence of any bacterial infection at this point in time. Noted the Pro calci tonin level was elevated. At the same time, the patient has acute Covid 19 related to pneumonia bilateral. The patient is on high flow oxygen at 15 L with an FiO2 of 73% to maintain a saturation above 90%. A triple lumen catheter was established in the left subclavian. The chest x-ray post line insertion showed no evidence of any pneumothorax. Nevertheless, there was dense bilateral pulmonary infiltrates consistent with coronavirus Covid 19 related pneumonia. The patient is obviously tachypneic. She is having respiratory distress even on high flow oxygen. No use of accessory muscles of breathing. The blood work from today shows a troponin of 0.23. Vancomycin level is at 19.9. The patient a component of non-anion gap metabolic acidosis from yesterday. The patient is a bicarb drip which is running at 100 mL an hour. Serum bicarb is up to 18. Creatinine is down to 1.9, somewhat improved compared to yesterday. At the same time, the patient is being treated with a combination of Decadron, vitamin C, vitamin D, zinc. She is receiving day #3 of Remdesivir. On 01/09/2020, the patient seems to be less agitated as the patient was started on Precedex which is currently running at 0.25 mg per KG per minute. The patient seems to much more comfortable at this point in time. She remains on high flow oxygen 55 L with an FiO2 of 85% with a pulse ox of 96%. The patient's chest x-ray still showing diffuse breath and pulmonary infiltrates. Note that the patient was infected with Covid 19 and she had a Covid 19 related pneumonia in addition to septic shock secondary to Haemophilus influenza bacteremia. Noted the patient's blood culture came back positive for Haemophilus influenza. The patient is currently on IV Rocephin 2 g every 24 hours in regards to this septicemia. The patient is also being treated for coronavirus Covid 19 pneumonia with a combination of Decadron and Remdesivir and the patient also received a unit of, convalescent plasma. The patient has a ferritin level of 3188. The patient has a LDH of 1147 and the CRP is down to 122. The patient is afebrile. Renal function and for the creatinine is down to 1.7. Serum bicarbs of 28 and the patient was being given D5 with 3 A of bicarb at the rate of 100 mL an hour. She is afebrile. She is still moans and at times becomes restless and tremulous. Nevertheless, there is no seizure activity noted and the patient is not able to follow single commands. Which are diffuse. There is peripheral infiltrate in the right and the left. There is somewhat improvement in pulmonary infiltration. Is a left sided subclavian triple-lumen catheter in place. The Pro calcitonin level is down to 1.45. 01/10/2020, the patient remains on Precedex and seems to be quite comfortable at a dose of 0.35 mcg per KG per hour. The patient is also on high flow oxygen at 55 L with an FiO2 of 80%. She is able to maintain a saturation above 90%. The chest x-ray is showing persistent airspace disease throughout the left lung which remains unchanged compared to yesterday. There is also scattered infiltration within the periphery of the right lung which probably have improved on today's evaluation. Note that the patient also had a positive blood culture with Haemophilus influenza. Accordingly, the patient was treated with IV Rocephin 2 g every 24 hours. The Pro calcitonin level is on the decline is c urrently down to 0.42. Hemodynamically stable and the patient is not requiring any pressors and she is receiving normal saline today to 75 mL an hour. The patient blood work showed a sodium of 147, BUN of 65 with a creatinine of 1.5, and the patient has an LDH of 1789, CRP of 73, and a d-dimer today's at 3.79. Objective - Vital Signs Vital signs: Vital Signs Temp 98.4 F 01/10/20 12:00 Pulse 93 01/10/20 14:00 Resp 36 H 01/10/20 14:00 BP 173/94 01/10/20 14:00 Pulse Ox 94 L 01/10/20 14:00 Intake & Output 01/09/20 01/10/20 01/10/20 18:59 06:59 18:59 Intake Total 1388.232 065.307 9289 Output Total 865 1020 620 Balance 523.232 -101.238 430 Weight 82.9 kg Intake: IV 1300 900 950 Dextrose 5% in Water 1, 900 000 ml @ 100 mls/hr IV . [id number] ANDREA with Sodium Bicarb (1 Meq/ml) 150 ml Rx#:[id number] Remdesivir (Eua) 100 mg 250 In Sodium Chloride 0.9% 250 ml @ 250 mls/hr IVPB DAILY@1200 [facility] Rx#: [id number] Sodium Chloride 0.9% 1, 300 900 600 000 ml @ 75 mls/hr IV . [id number] [facility] Rx#:[id number] cefTRIAXone 2 gm In 100 100 Sodium Chloride 0.9% 50 ml @ 100 mls/hr IVPB Q24H [facility] Rx#:[id number] Intake, IV Titration 88.232 18.762 100 Amount Dexmedetomidine/0.9% NaCl 88.232 18.762 (Pmx) 400 mcg In Empty Bag 1 bag @ Titrate IV . Q0M [facility] Rx#:[id number] Dexmedetomidine/0.9% NaCl 100 (Pmx) 400 mcg In Empty Bag 1 bag @ Titrate IV . Q0M [facility] Rx#:[id number] Output: Urine 865 1020 620 Other: Voiding Method Indwelling Catheter Indwelling Catheter # Bowel Movements 0 - Exam GENERAL: This is a 74-year-old female patient is arousable. Sedated and agitation is well controlled while being on Precedex drip. The dose being titrated to control the agitation. No seizure activity. No neck stiffness. Unable to hold a combination of this point in time. She is resting and sleeping comfortably. Head exam was generally normal. There was no scleral icterus or corneal arcus. Mucous membranes were moist. HEENT: Pupils are round and equally reacting to light. EOMI. No scleral icterus. No conjunctival pallor. Normocephalic, atraumatic. No pharyngeal erythema. No thyromegaly. The patient subclavian triple lumen catheter inserted in left subclavian vein. CARDIOVASCULAR: S1 and S2 present. No murmurs, rubs, or gallops. PULMONARY: Lungs with bilateral scattered rhonchi , the patient has crackles in the mid and lower lung kaiser bilaterally. ABDOMEN: Soft, nontender, nondistended, normoactive bowel sounds. No palpable organomegaly. MUSCULOSKELETAL: No joint swelling or deformity. EXTREMITIES: No cyanosis, clubbing, or pedal edema. NEUROLOGICAL: Gross neurological examination did not reveal any focal deficits. SHE IS CONFUSED. SHE IS AT TIMES AGITATED. UNABLE TO maintain a conversation. Unable to answer any questions. Pupils are round 3 mm in size and they're reactive to light. No nystagmus. No neck stiffness. No clonus. Reflexes are symmetrical. No muscle rigidity. SKIN: No rashes. - Labs CBC & Chem 7: 01/10/20 03:30 01/10/20 03:30 Labs: Abnormal Lab Results - Last 24 Hours (Table) 01/09/20 01/09/20 01/09/20 Range/Units 03:15 16:48 23:47 WBC (3.8-10.6) k/uL RBC (3.80-5.40) m/uL Hgb (11.4-16.0) gm/dL Hct (34.0-46.0) % Neutrophils # (Manual) (1.3-7.7) k/uL Metamyelocytes # (Man) (0) k/uL D-Dimer (<0.60) mg/L FEU Sodium (137-145) mmol/L Chloride (98-107) mmol/L Carbon Dioxide (22-30) mmol/L BUN (7-17) mg/dL Creatinine (0.52-1.04) mg/dL Glucose (74-99) mg/dL POC Glucose (mg/dL) 192 H 142 H (75-99) mg/dL Hemoglobin A1c (4.0-6.0) % Calcium (8.4-10.2) mg/dL AST (14-36) U/L Lactate Dehydrogenase (313-618) U/L C-Reactive Protein (<10.0) mg/L Total Protein (6.3-8.2) g/dL Albumin (3.5-5.0) g/dL Procalcitonin 0.72 H (0.02-0.09) ng/mL 01/10/20 01/10/20 01/10/20 Range/Units 03:30 03:30 03:30 WBC 16.7 H (3.8-10.6) k/uL RBC 3.27 L (3.80-5.40) m/uL Hgb 9.9 L (11.4-16.0) gm/dL Hct 29.6 L (34.0-46.0) % Neutrophils # (Manual) 16.10 H (1.3-7.7) k/uL Metamyelocytes # (Man) 0.17 H (0) k/uL D-Dimer 3.79 H (<0.60) mg/L FEU Sodium (137-145) mmol/L Chloride (98-107) mmol/L Carbon Dioxide (22-30) mmol/L BUN (7-17) mg/dL Creatinine (0.52-1.04) mg/dL Glucose (74-99) mg/dL POC Glucose (mg/dL) (75-99) mg/dL Hemoglobin A1c (4.0-6.0) % Calcium (8.4-10.2) mg/dL AST (14-36) U/L Lactate Dehydrogenase (313-618) U/L C-Reactive Protein (<10.0) mg/L Total Protein (6.3-8.2) g/dL Albumin (3.5-5.0) g/dL Procalcitonin 0.42 H (0.02-0.09) ng/mL 01/10/20 01/10/20 01/10/20 Range/Units 03:30 03:30 05:34 WBC (3.8-10.6) k/uL RBC (3.80-5.40) m/uL Hgb (11.4-16.0) gm/dL Hct (34.0-46.0) % Neutrophils # (Manual) (1.3-7.7) k/uL Metamyelocytes # (Man) (0) k/uL D-Dimer (<0.60) mg/L FEU Sodium 147 H (137-145) mmol/L Chloride 110 H (98-107) mmol/L Carbon Dioxide 33 H (22-30) mmol/L BUN 65 H (7-17) mg/dL Creatinine 1.52 H (0.52-1.04) mg/dL Glucose 116 H (74-99) mg/dL POC Glucose (mg/dL) 129 H (75-99) mg/dL Hemoglobin A1c 6.9 H (4.0-6.0) % Calcium 8.1 L (8.4-10.2) mg/dL AST 62 H (14-36) U/L Lactate Dehydrogenase 1789 H (313-618) U/L C-Reactive Protein 73.2 H (<10.0) mg/L Total Protein 5.1 L (6.3-8.2) g/dL Albumin 2.5 L (3.5-5.0) g/dL Procalcitonin (0.02-0.09) ng/mL 01/10/20 Range/Units 12:21 WBC (3.8-10.6) k/uL RBC (3.80-5.40) m/uL Hgb (11.4-16.0) gm/dL Hct (34.0-46.0) % Neutrophils # (Manual) (1.3-7.7) k/uL Metamyelocytes # (Man) (0) k/uL D-Dimer (<0.60) mg/L FEU Sodium (137-145) mmol/L Chloride (98-107) mmol/L Carbon Dioxide (22-30) mmol/L BUN (7-17) mg/dL Creatinine (0.52-1.04) mg/dL Glucose (74-99) mg/dL POC Glucose (mg/dL) 155 H (75-99) mg/dL Hemoglobin A1c (4.0-6.0) % Calcium (8.4-10.2) mg/dL AST (14-36) U/L Lactate Dehydrogenase (313-618) U/L C-Reactive Protein (<10.0) mg/L Total Protein (6.3-8.2) g/dL Albumin (3.5-5.0) g/dL Procalcitonin (0.02-0.09) ng/mL Microbiology - Last 24 Hours (Table) 01/08/20 20:46 Blood Culture - Preliminary Blood No Growth after 24 hours 01/06/20 15:18 Blood Culture - Preliminary Blood No Growth after 72 hours 01/07/20 07:30 Blood Culture Gram Stain - Preliminary Blood Blood Culture - Final Haemophilus influenzae Assessment and Plan Plan: 1 Acute bilateral COVID 19 pneumonia, with secondary respiratory failure. The patient is currently on high flow oxygen at 55 L and the patient is maintaining saturation above 90%. Chest x-ray showing stable bilateral pulmonary infiltrates with probably some improvement on the right. Nevertheless, the patient's overall pulmonary status and mental status is essentially the same probably unchanged compared to yesterday. 2 Acute hypoxic respiratory failure, currently on high flow oxygen by nasal cannula. 3 bacteremia sepsis secondary to Haemophilus influenza, likely of a pulmonary source and the patient is currently on Rocephin 2 g every 24 hours. The patient is hemodynamically stable. The patient's pro-calcitonin level is improving. 4 SELENE improving and the renal function is improving and the creatinine is down to 1.52 5 Non anion gap meabolic acidosis, recovered 5 altered mental status /encephalopathy, likely metabolic in nature as the patient has Covid 19 related pneumonia in addition to septicemia secondary to Haemophilus influenza and the patient is currently on Precedex to control the agitation. No significant respiratory suppression while being on Precedex and the patient is able to tolerate the infusion without any major difficulties. Nevertheless, she remains on high flow oxygen as the patient is profoundly hypoxic secondary to underlying pneumonia. 6 hypertension 7 hyperlipidemia 8 troponin leak with a preserved LV function. Plan Keep the patient adequately oxygenated with high flow oxygen at 55 L with an FiO2 of 85% Continue the combination of Decadron and Remdesivir and the patient completed the course regarding the Covid 19 related pneumonia and the patient also received a unit of convalescent plasma Continue IV Rocephin regarding Haemophilus influenza sepsis, and the patient's pro-calcitonin level is on the decline normal state rate of 75 mL an hour Monitor renal function, creatinine continues to improve Anticoagulation with Lovenox 40 mg subcu every 24 hours, d-dimer is at 3.79 We'll continue to follow. Prognosis poor baseline above-mentioned comorbidities. Monitor respiratory status very closely. condition is critical. High likely that the patient may require intubation mechanical ventilation. Contacted the daughter and updated on the condition. There is a critically care evaluation that was done and more than 30 minutes. Time with Patient: Greater than 30
[2020-01-10 17:14] LABS: Glucose,Whole Blood 141 mg/dL (75-99)
[2020-01-10] MEDS ORDERED: DEXMEDETOMIDINE/0.9% NACL(PMX) 400 MCG in EMPTY BAG 1 BAG IV SCH (22:00)
--- NOTE | 2020-01-10 23:12 | PN ---
PROGRESS NOTE DATE OF SERVICE: 01/10/2020 REASON FOR FOLLOW UP: Haemophilus influenzae bacteremia and pneumonia. INTERVAL HISTORY: Patient is currently afebrile. The patient is hemodynamically stable, not on pressor support. The patient remains to be lethargic and pleasantly confused, unable to provide any history. No vomiting or diarrhea has been reported. PHYSICAL EXAMINATION: Blood pressure 154/84 with a pulse of 83, temperature 98.2. She is 98% on high-flow oxygen. General description is an elderly female lying in bed in no distress. Respiratory system: Unlabored breathing, decreased intensity of breath sounds. No wheeze. Heart S1, S2. Regular rate and rhythm. Abdomen soft, no tenderness. LABS: Hemoglobin 9.8, white count 16.7, BUN of 65, creatinine 1.52, and EHA is 1789. Procalcitonin 0.42. IMPRESSION/PLAN: Patient with Haemophilus influenzae bacteremia, source is likely pneumonia. The patient also a concern for Covid 19. Chest x-ray, mild improvement. Patient to continue with Rocephin 2 grams daily along with dexamethasone, Lovenox and zinc and monitor clinical course closely. MMODL / IJN: [id number] /
[2020-01-10 23:34] LABS: Glucose,Whole Blood 159 mg/dL (75-99)
[2020-01-11] MEDS: INSULIN ASPART (NovoLOG) 100 UNIT/ML VIAL SQ SCH ×4 (00:22→19:20)
[2020-01-11] MEDS: SODIUM CHLORIDE 0.45% 1,000 ML IV SCH ×2 (00:24→12:06)
[2020-01-11 03:58] LABS: HCT 28.4 % (34.0-46.0); HGB 9.3 gm/dL (11.4-16.0); MCH 30.5 pg (25.0-35.0); MCHC 32.8 g/dL (31.0-37.0); Mean Platelet Volume 8.4; Platelet Count 187 k/uL (150-450); RBC 3.05 m/uL (3.80-5.40); RDW 13.9 % (11.5-15.5); WBC 12.5 k/uL (3.8-10.6)
[2020-01-11 04:15] LABS: Albumin 2.4 g/dL (3.5-5.0); C Reactive Protein 60.7 mg/L (<10.0); Potassium 3.8 mmol/L (3.5-5.1); Total Bilirubin 0.7 mg/dL (0.2-1.3); Total Protein 4.8 g/dL (6.3-8.2)
[2020-01-11] MEDS: ALBUTEROL HFA INHALER INHALATION PRN ×2 (04:18→15:50)
[2020-01-11] MEDS ORDERED: POTASSIUM CHLORIDE 20 MEQ in WATER FOR INJECTION 1 100ML.BAG IVPB STA (04:42)
[2020-01-11 05:04] LABS: Band Neutrophils % 2 %; Lymphocytes # (M) 0.13 k/uL (1.0-4.8); Monocytes # (M) 0.38 k/uL (0-1.0); Neutrophils % (M) 94 %; Nucleated Red Blood Cells 0 /100 WBC (0-0); Total Cells Counted 100
[2020-01-11 05:06] LABS: Ovalocytes Present
[2020-01-11 05:27] LABS: Glucose,Whole Blood 128 mg/dL (75-99)
--- NOTE | 2020-01-11 07:32 | XR ---
EXAMINATION TYPE: XR chest 1V portable DATE OF EXAM: 01/11/2020 COMPARISON: 01/10/2020 HISTORY: Shortness of breath TECHNIQUE: Single frontal view of the chest is obtained. FINDINGS: Bilateral patchy infiltrate and small effusion. Patient rotated. Limits exam. Atherosclero tic change aorta and central line stable. Soft tissue fullness seen overlying the right apex with no definite sizable pneumothorax. IMPRESSION: Bilateral patchy infiltrates are stable. Small bilateral pleural effusions correlate for known multifocal pneumonia. Otherwise consider CHF.
[2020-01-11] MEDS: ENOXAPARIN 40 MG/0.4 ML SYRINGE SQ SCH ×2 (08:02→19:36)
[2020-01-11] MEDS: LIDOCAINE 5% PATCH TOPICAL SCH (08:19)
[2020-01-11] MEDS: DEXAMETHASONE SOD PHOSPHATE 10 MG/ML 1 ML VIAL IV SCH (08:19)
[2020-01-11] MEDS: ASCORBIC ACID 500 MG TAB PO SCH ×2 (08:22→19:34)
[2020-01-11] MEDS: ASPIRIN 81 MG PO SCH (08:22)
[2020-01-11] MEDS: CHOLECALCIFEROL 1,000 UNIT TAB PO SCH (08:23)
[2020-01-11] MEDS: ZINC SULFATE 220 MG CAP PO SCH (08:23)
[2020-01-11] MEDS: SENNOSIDES 8.6 MG TAB PO SCH ×2 (08:23→19:34)
[2020-01-11] MEDS: METOPROLOL TARTRATE 5 MG/5 ML VIAL IVP SCH ×2 (11:04→17:54)
[2020-01-11 11:15] LABS: Glucose,Whole Blood 161 mg/dL (75-99)
--- NOTE | 2020-01-11 14:00 | P.PN ---
Subjective 74-year-old female is admitted for hypoxia elevated troponins found to have positive Covid. Patient was transferred from outside hospital. Patient at baseline apparently is awake and alert. Patient is oriented 1 at this time. Patient did have fever and shortness of breath because of which patient was sent in here. Patient has elevated urine creatinine of 2.5 baseline is not available but patient apparently has chronic kidney disease. Does follow with a snow maker as an outpatient. Patient is found to have mildly elevated troponins of 0.2-3. Patient denied any chest pain although patient is extremely poor historian because of her confusion and hearing problems. His blood cultures from the other hospital came back positive for gram-positive cocci unsure whether it's clusters sore repairs. Patient will be started on vancomyci n infectious disease will be consulted may need tube be switched to daptomycin, considering her kidney function. 01/07/2020 Patient is presently on the eighth liters of oxygen although patient is not in respiratory distress whenever she doesn't wear this oxygen his sister AND saturation dropped down to 80%. Patient blood cultures are positive for coag is negative staph which is a contamination and medics will be discontinued. Repeat cultures are pending 01/08/2020 Patient progressively became dyspneic was transferred to intensive care unit patient was started on Rocephin and azithromycin for secondary bacterial pneumonia, IV recommended vancomycin as well. Patient had a central line don fariba.. Creatinine improved to 1.9. Patient is presently on Remdesivir date 3 along with Decadron, vitamin C, vitamin D and zinc 01/09/2020 Patient is bacteremic with Haemophilus influenza repeat blood cultures will be obtained and patient is on Rocephin patient is presently on 55 L of oxygen. Tawana roman has severe toxic encephalopathy with tremors. Neurology evaluated the patient. 01/10/2020 Patient's tremors and shaking he is better patient continues to be on Pracedex. Bicarbonate drip was discontinued patient has hyperchloremia and hyper next anemia because of which patient will be switched to half-normal saline. 01/11/2020 Patient is also receiving metoprolol apart from a clonidine because of her tachycardia and hypertension patient presently doesn't have an NG tube patient is presently nothing by mouth. Patient is presently on 60 L of oxygen via able. Review of systems: Unable to obtain due to her clinical condition All inpatient medications were reviewed and appropriate changes in these medications as dictated in the interval history and assessment and plan. Objective - Vital Signs Vital signs: Vital Signs Temp 98.1 F 01/11/20 12:00 Pulse 82 01/11/20 12:00 Resp 35 H 01/11/20 12:00 BP 165/97 01/11/20 12:00 Pulse Ox 93 L 01/11/20 12:00 Intake & Output 01/10/20 01/11/20 01/11/20 18:59 06:59 18:59 Intake Total 1425 867.369 425 Output Total 905 980 415 Balance 520 -112.631 10 Weight 85.5 kg Intake: IV 1325 825 425 Remdesivir (Eua) 100 mg 250 In Sodium Chloride 0.9% 250 ml @ 250 mls/hr IVPB DAILY@1200 [facility] Rx#: [id number] Sodium Chloride 0.45% 1, 300 000 ml @ 75 mls/hr IV . [id number] [facility] Rx#:[id number] Sodium Chloride 0.9% 1, 975 825 75 000 ml @ 75 mls/hr IV . [id number] [facility] Rx#:[id number] cefTRIAXone 2 gm In 100 50 Sodium Chloride 0.9% 50 ml @ 100 mls/hr IVPB Q24H [facility] Rx#:[id number] Intake, IV Titration 100 42.369 Amount Dexmedetomidine/0.9% NaCl 100 42.369 (Pmx) 400 mcg In Empty Bag 1 bag @ Titrate IV . Q0M [facility] Rx#:[id number] Output: Urine 905 980 415 Other: Voiding Method Indwelling Catheter Indwelling Catheter - Exam PHYSICAL EXAMINATION: GENERAL: The patient is an sleeping, not in any acute distress. Well developed, well nourished. Patient has nonessential tremor, possibility of myoclonus HEENT: Pupils are round and equally reacting to light. EOMI. No scleral icterus. No conjunctival pallor. Normocephalic, atraumatic. No pharyngeal erythema. No thyromegaly. CARDIOVASCULAR: S1 and S2 present. No murmurs, rubs, or gallops. PULMONARY: Bilateral crackles and rhonchi diffusely ABDOMEN: Soft, nontender, nondistended, normoactive bowel sounds. No palpable organomegaly. MUSCULOSKELETAL: No joint swelling or deformity. EXTREMITIES: No cyanosis, clubbing, or pedal edema. NEUROLOGICAL: Gross neurological examination did not reveal any focal deficits. SKIN: No rashes. Note: Because of COVID 19 isolation, some of the history and physical exam findings are indirect and obtained from nursing staff, and other physician examinations to avoid unnecessary contact with the patient. - Labs CBC & Chem 7: 01/11/20 03:50 01/11/20 03:50 Labs: Abnormal Lab Results - Last 24 Hours (Table) 01/10/20 01/10/20 01/11/20 Range/Units 17:11 23:32 03:50 WBC (3.8-10.6) k/uL RBC (3.80-5.40) m/uL Hgb (11.4-16.0) gm/dL Hct (34.0-46.0) % Neutrophils # (Manual) (1.3-7.7) k/uL Lymphocytes # (Manual) (1.0-4.8) k/uL D-Dimer (<0.60) mg/L FEU Sodium (137-145) mmol/L Chloride (98-107) mmol/L BUN (7-17) mg/dL Creatinine (0.52-1.04) mg/dL Glucose (74-99) mg/dL POC Glucose (mg/dL) 141 H 159 H (75-99) mg/dL Calcium (8.4-10.2) mg/dL AST (14-36) U/L Lactate Dehydrogenase (313-618) U/L C-Reactive Protein (<10.0) mg/L Total Protein (6.3-8.2) g/dL Albumin (3.5-5.0) g/dL Procalcitonin 0.28 H (0.02-0.09) ng/mL 01/11/20 01/11/20 01/11/20 Range/Units 03:50 03:50 03:50 WBC 12.5 H (3.8-10.6) k/uL RBC 3.05 L (3.80-5.40) m/uL Hgb 9.3 L (11.4-16.0) gm/dL Hct 28.4 L (34.0-46.0) % Neutrophils # (Manual) 12.00 H (1.3-7.7) k/uL Lymphocytes # (Manual) 0.13 L (1.0-4.8) k/uL D-Dimer 3.95 H (<0.60) mg/L FEU Sodium 147 H (137-145) mmol/L Chloride 113 H (98-107) mmol/L BUN 61 H (7-17) mg/dL Creatinine 1.45 H (0.52-1.04) mg/dL Glucose 128 H (74-99) mg/dL POC Glucose (mg/dL) (75-99) mg/dL Calcium 8.0 L (8.4-10.2) mg/dL AST 48 H (14-36) U/L Lactate Dehydrogenase 1614 H (313-618) U/L C-Reactive Protein 60.7 H (<10.0) mg/L Total Protein 4.8 L (6.3-8.2) g/dL Albumin 2.4 L (3.5-5.0) g/dL Procalcitonin (0.02-0.09) ng/mL 01/11/20 01/11/20 Range/Units 05:26 11:13 WBC (3.8-10.6) k/uL RBC (3.80-5.40) m/uL Hgb (11.4-16.0) gm/dL Hct (34.0-46.0) % Neutrophils # (Manual) (1.3-7.7) k/uL Lymphocytes # (Manual) (1.0-4.8) k/uL D-Dimer (<0.60) mg/L FEU Sodium (137-145) mmol/L Chloride (98-107) mmol/L BUN (7-17) mg/dL Creatinine (0.52-1.04) mg/dL Glucose (74-99) mg/dL POC Glucose (mg/dL) 128 H 161 H (75-99) mg/dL Calcium (8.4-10.2) mg/dL AST (14-36) U/L Lactate Dehydrogenase (313-618) U/L C-Reactive Protein (<10.0) mg/L Total Protein (6.3-8.2) g/dL Albumin (3.5-5.0) g/dL Procalcitonin (0.02-0.09) ng/mL Microbiology - Last 24 Hours (Table) 01/07/20 07:30 Blood Culture Gram Stain - Final Blood Blood Culture - Final Haemophilus influenzae 01/08/20 20:12 Gram Stain - Final Sputum Sputum Culture - Final 01/08/20 20:46 Blood Culture - Preliminary Blood No Growth after 48 hours 01/06/20 15:18 Blood Culture - Preliminary Blood No Growth after 96 hours Assessment and Plan Plan: -Acute hypoxic respiratory failure: secondary to covid 19 pneumonia. Patient was started on Decadron and completed Remdesivir patient is presently on a 60L of oxygen and is presently nothing by mouth doesn't have an NG tube. - secondary bacterial pneumonia , patient has bacteremia with Haemophilus influenza, patient is on Rocephin presently. - bacteremia: -Toxic encephalopathy, altered mental status: Secondary to infection -Elevated troponin secondary to infection and renal failure -Possible difficulty renal failure patient does have chronic kidney disease unable to stage chronic kidney disease is at baseline is not known. Patient will continued on IV fluids -Hypertension: Patient is presently on clonidine patch. -Hyperlipidemia Possible myoclonus: Secondary to encephalopathy, neurology evaluated the patient. -DVT prophylaxis with heparin
[2020-01-11] MEDS: hydrALAZINE HCL 20 MG/ML 1 ML VIAL IVP PRN (14:32)
--- NOTE | 2020-01-11 15:17 | P.PN ---
Subjective Progress Note Date: 01/11/20 A 74-year-old female patient, very poor historian with what seems to be advanced dementia in addition to history of hypertension and hyperlipidemia was coming in for shortness of breath and hypoxemia and this has been confirmed to be related to COVID 19 infection/pneumonia. The patient was transferred from an outside hospital. The patient is unable to give any further history. Review of her chest x-ray shows that the patient is a peripheral patchy pulmonary interstitial airspace disease infiltrates bilaterally and the patient is currently on 8 L of oxygen by nasal cannula to maintain a saturation above 90%. Her current pulse ox is around 93%. The white cell count is at 10.6. The patient also has a renal failure and the chronicity of the renal failure is not established. Her previous creatinine is unknown to me at this point in time. She also has a mild component of anion gap metabolic acidosis with a anion gap of 14 and a serum bicarb level of 17. LDH is 1213 and the patient is a CRP of 301. Also, the patient had a troponin leak with troponin levels being at 0.1 0.1 and 0.2 resp ectively. Pro calcitonin level was elevated at 1.54. She is afebrile. The blood cultures from the outside hospital showing gram-positive cocci and is not sure if it was in clusters overnight. The patient was started on vancomycin as an empiric antibiotic coverage. In terms of Covid 19 infection, the patient was started on a combination of Decadron and Remdesivir The patient is seen today 01/07/2020 in follow-up on selective care unit. She does have advanced dementia and is a poor historian. She is currently resting fairly comfortably in bed. She is on 8 L high flow nasal cannula to maintain O2 saturations in the 90s. She's afebrile. Hemodynamically stable. White count 27.1. Hemoglobin 12.2. Lymphocytes 0.81. Sodium 139. Potassium 4.2. Bicarb 14. Creatinine 2.06. AST 102. ALT 47. Troponin 0.266. C-reactive protein 192. Pro calcitonin 1.45. She remains on Decadron, vitamin C, vitamin D, zinc. She is receiving day #2 of Remdesivir. On 01/08/2020, the patient has been transferred to the intensive care unit. The patient developed progressive dyspnea tachypnea and hypoxemia overnight and the patient had to be transferred to the intensive care unit. At this point in time, the patient is confused, lethargic, at times agitated, unable to follow any commands and unable to hold a conversation. She gets quite restless when stimulated. She is sensing critical condition on 4 extremities. No neck stiffness. She is moving all 4 extremities and the patient has no focal neurological deficits. No neck stiffness. The patient was noted to have a possible culture an outside hospital and the patient was given vancomycin in addition to Zithromax and Rocephin per IDs recommendation. Nevertheless, based on our cultures, the results are still negative for now and there is no clear evidence of any bacterial infection at this point in time. Noted the Pro calci tonin level was elevated. At the same time, the patient has acute Covid 19 related to pneumonia bilateral. The patient is on high flow oxygen at 15 L with an FiO2 of 73% to maintain a saturation above 90%. A triple lumen catheter was established in the left subclavian. The chest x-ray post line insertion showed no evidence of any pneumothorax. Nevertheless, there was dense bilateral pulmonary infiltrates consistent with coronavirus Covid 19 related pneumonia. The patient is obviously tachypneic. She is having respiratory distress even on high flow oxygen. No use of accessory muscles of breathing. The blood work from today shows a troponin of 0.23. Vancomycin level is at 19.9. The patient a component of non-anion gap metabolic acidosis from yesterday. The patient is a bicarb drip which is running at 100 mL an hour. Serum bicarb is up to 18. Creatinine is down to 1.9, somewhat improved compared to yesterday. At the same time, the patient is being treated with a combination of Decadron, vitamin C, vitamin D, zinc. She is receiving day #3 of Remdesivir. On 01/09/2020, the patient seems to be less agitated as the patient was started on Precedex which is currently running at 0.25 mg per KG per minute. The patient seems to much more comfortable at this point in time. She remains on high flow oxygen 55 L with an FiO2 of 85% with a pulse ox of 96%. The patient's chest x-ray still showing diffuse breath and pulmonary infiltrates. Note that the patient was infected with Covid 19 and she had a Covid 19 related pneumonia in addition to septic shock secondary to Haemophilus influenza bacteremia. Noted the patient's blood culture came back positive for Haemophilus influenza. The patient is currently on IV Rocephin 2 g every 24 hours in regards to this septicemia. The patient is also being treated for coronavirus Covid 19 pneumonia with a combination of Decadron and Remdesivir and the patient also received a unit of, convalescent plasma. The patient has a ferritin level of 3188. The patient has a LDH of 1147 and the CRP is down to 122. The patient is afebrile. Renal function and for the creatinine is down to 1.7. Serum bicarbs of 28 and the patient was being given D5 with 3 A of bicarb at the rate of 100 mL an hour. She is afebrile. She is still moans and at times becomes restless and tremulous. Nevertheless, there is no seizure activity noted and the patient is not able to follow single commands. Which are diffuse. There is peripheral infiltrate in the right and the left. There is somewhat improvement in pulmonary infiltration. Is a left sided subclavian triple-lumen catheter in place. The Pro calcitonin level is down to 1.45. 01/10/2020, the patient remains on Precedex and seems to be quite comfortable at a dose of 0.35 mcg per KG per hour. The patient is also on high flow oxygen at 55 L with an FiO2 of 80%. She is able to maintain a saturation above 90%. The chest x-ray is showing persistent airspace disease throughout the left lung which remains unchanged compared to yesterday. There is also scattered infiltration within the periphery of the right lung which probably have improved on today's evaluation. Note that the patient also had a positive blood culture with Haemophilus influenza. Accordingly, the patient was treated with IV Rocephin 2 g every 24 hours. The Pro calcitonin level is on the decline is c urrently down to 0.42. Hemodynamically stable and the patient is not requiring any pressors and she is receiving normal saline today to 75 mL an hour. The patient blood work showed a sodium of 147, BUN of 65 with a creatinine of 1.5, and the patient has an LDH of 1789, CRP of 73, and a d-dimer today's at 3.79. 01/11/2020, I'm seeing the patient for a follow-up. Her condition essentially unchanged compared to yesterday. The patient is still requiring Precedex to control her agitation and restlessness pH she remains on Precedex at a dose of 0.4 g per KG per minute. This is able to control her condition quite well. Meanwhile, the patient continues to remain hypoxic respiratory failure. She has required high flow oxygen at 55 L and FiO2 of 60%. The patient is on half- normal saline at the rate of 75 mL an hour. Urine output in the order of 70 mL an hour. Input output balance is positive for 21 mL over the past 24 hours. The patient's renal function with a creatinine of 1.47 which is improved compared to yesterday. Sodium level remains unchanged at 147. Chest x-ray findings are essentially stable with diffuse breath and pulmonary infiltrates consistent with Covid 19 related pneumonia. The patient remains on IV Decadron. The patient remains on IV Rocephin regarding her Haemophilus influenza septicemia. Hemodynamically stable. Maintaining her on blood pressure. She remains on Lovenox 40 mg subcu every 12 hours. Objective - Vital Signs Vital signs: Vital Signs Temp 98.1 F 01/11/20 12:00 Pulse 84 01/11/20 15:00 Resp 30 H 01/11/20 15:00 BP 161/90 01/11/20 15:00 Pulse Ox 91 L 01/11/20 15:00 Intake & Output 01/10/20 01/11/20 01/11/20 18:59 06:59 18:59 Intake Total 1425 867.369 650 Output Total 905 980 625 Balance 520 -112.631 25 Weight 85.5 kg Intake: IV 1325 825 650 Remdesivir (Eua) 100 mg 250 In Sodium Chloride 0.9% 250 ml @ 250 mls/hr IVPB DAILY@1200 [facility] Rx#: [id number] Sodium Chloride 0.45% 1, 525 000 ml @ 75 mls/hr IV . [id number] [facility] Rx#:[id number] Sodium Chloride 0.9% 1, 975 825 75 000 ml @ 75 mls/hr IV . [id number] [facility] Rx#:[id number] cefTRIAXone 2 gm In 100 50 Sodium Chloride 0.9% 50 ml @ 100 mls/hr IVPB Q24H [facility] Rx#:[id number] Intake, IV Titration 100 42.369 Amount Dexmedetomidine/0.9% NaCl 100 42.369 (Pmx) 400 mcg In Empty Bag 1 bag @ Titrate IV . Q0M [facility] Rx#:[id number] Output: Urine 905 980 625 Other: Voiding Method Indwelling Catheter Indwelling Catheter Indwelling Catheter - Exam GENERAL: This is a 74-year-old female patient is arousable. Sedated and agitation is well controlled while being on Precedex drip. The dose being titrated to control the agitation. No seizure activity. No neck stiffness. Unable to hold a combination of this point in time. She is resting and sleeping comfortably. Head exam was generally normal. There was no scleral icterus or corneal arcus. Mucous membranes were moist. HEENT: Pupils are round and equally reacting to light. EOMI. No scleral icterus. No conjunctival pallor. Normocephalic, atraumatic. No pharyngeal erythema. No thyromegaly. The patient subclavian triple lumen catheter inserted in left subclavian vein. CARDIOVASCULAR: S1 and S2 present. No murmurs, rubs, or gallops. PULMONARY: Lungs with bilateral scattered rhonchi , the patient has crackles in the mid and lower lung kaiser bilaterally. ABDOMEN: Soft, nontender, nondistended, normoactive bowel sounds. No palpable organomegaly. MUSCULOSKELETAL: No joint swelling or deformity. EXTREMITIES: No cyanosis, clubbing, or pedal edema. NEUROLOGICAL: Gross neurological examination did not reveal any focal deficits. SHE IS CONFUSED. SHE IS AT TIMES AGITATED. UNABLE TO maintain a conversation. Unable to answer any questions. Pupils are round 3 mm in size and they're reactive to light. No nystagmus. No neck stiffness. No clonus. Reflexes are symmetrical. No muscle rigidity. SKIN: No rashes. - Labs CBC & Chem 7: 01/11/20 03:50 01/11/20 03:50 Labs: Abnormal Lab Results - Last 24 Hours (Table) 01/10/20 01/10/20 01/11/20 Range/Units 17:11 23:32 03:50 WBC (3.8-10.6) k/uL RBC (3.80-5.40) m/uL Hgb (11.4-16.0) gm/dL Hct (34.0-46.0) % Neutrophils # (Manual) (1.3-7.7) k/uL Lymphocytes # (Manual) (1.0-4.8) k/uL D-Dimer (<0.60) mg/L FEU Sodium (137-145) mmol/L Chloride (98-107) mmol/L BUN (7-17) mg/dL Creatinine (0.52-1.04) mg/dL Glucose (74-99) mg/dL POC Glucose (mg/dL) 141 H 159 H (75-99) mg/dL Calcium (8.4-10.2) mg/dL AST (14-36) U/L Lactate Dehydrogenase (313-618) U/L C-Reactive Protein (<10.0) mg/L Total Protein (6.3-8.2) g/dL Albumin (3.5-5.0) g/dL Procalcitonin 0.28 H (0.02-0.09) ng/mL 01/11/20 01/11/20 01/11/20 Range/Units 03:50 03:50 03:50 WBC 12.5 H (3.8-10.6) k/uL RBC 3.05 L (3.80-5.40) m/uL Hgb 9.3 L (11.4-16.0) gm/dL Hct 28.4 L (34.0-46.0) % Neutrophils # (Manual) 12.00 H (1.3-7.7) k/uL Lymphocytes # (Manual) 0.13 L (1.0-4.8) k/uL D-Dimer 3.95 H (<0.60) mg/L FEU Sodium 147 H (137-145) mmol/L Chloride 113 H (98-107) mmol/L BUN 61 H (7-17) mg/dL Creatinine 1.45 H (0.52-1.04) mg/dL Glucose 128 H (74-99) mg/dL POC Glucose (mg/dL) (75-99) mg/dL Calcium 8.0 L (8.4-10.2) mg/dL AST 48 H (14-36) U/L Lactate Dehydrogenase 1614 H (313-618) U/L C-Reactive Protein 60.7 H (<10.0) mg/L Total Protein 4.8 L (6.3-8.2) g/dL Albumin 2.4 L (3.5-5.0) g/dL Procalcitonin (0.02-0.09) ng/mL 01/11/20 01/11/20 Range/Units 05:26 11:13 WBC (3.8-10.6) k/uL RBC (3.80-5.40) m/uL Hgb (11.4-16.0) gm/dL Hct (34.0-46.0) % Neutrophils # (Manual) (1.3-7.7) k/uL Lymphocytes # (Manual) (1.0-4.8) k/uL D-Dimer (<0.60) mg/L FEU Sodium (137-145) mmol/L Chloride (98-107) mmol/L BUN (7-17) mg/dL Creatinine (0.52-1.04) mg/dL Glucose (74-99) mg/dL POC Glucose (mg/dL) 128 H 161 H (75-99) mg/dL Calcium (8.4-10.2) mg/dL AST (14-36) U/L Lactate Dehydrogenase (313-618) U/L C-Reactive Protein (<10.0) mg/L Total Protein (6.3-8.2) g/dL Albumin (3.5-5.0) g/dL Procalcitonin (0.02-0.09) ng/mL Microbiology - Last 24 Hours (Table) 01/07/20 07:30 Blood Culture Gram Stain - Final Blood Blood Culture - Final Haemophilus influenzae 01/08/20 20:12 Gram Stain - Final Sputum Sputum Culture - Final 01/08/20 20:46 Blood Culture - Preliminary Blood No Growth after 48 hours 01/06/20 15:18 Blood Culture - Preliminary Blood No Growth after 96 hours Assessment and Plan Plan: 1 Acute bilateral COVID 19 pneumonia, with secondary respiratory failure. The patient is currently on high flow oxygen at 55 L and the patient is maintaining saturation above 90%. Chest x-ray showing stable bilateral pulmonary infiltrates which are essentially diffuse and stable.. Pulmonary status in general is unchanged compared to yesterday. Nevertheless, the patient continues to be in poor clinical condition. Mentation continues to be altered and the patient is still encephalopathic requiring Precedex to control her restlessness and agitation. The patient is unable to take any form of oral intake based on her condition. She is still requiring high flow oxygen. She on a combination of Decadron patient completed the course of Remdesivir a 2 Acute hypoxic respiratory failure, currently on high flow oxygen at 55 L an FiO2 of 60% 3 bacteremia sepsis secondary to Haemophilus influenza, likely of a pulmonary source and the patient is currently on Rocephin 2 g every 24 hours. The patient is hemodynamically stable. The patient's pro-calcitonin level is improving. 4 SELENE improving and the renal function is improving and the creatinine is down to 1. 45 5 Non anion gap meabolic acidosis, recovered 5 altered mental status /encephalopathy, likely metabolic in nature as the patient has Covid 19 related pneumonia in addition to septicemia secondary to Haemophilus influenza and the patient is currently on Precedex to control the agitation. No significant respiratory suppression while being on Precedex and the patient is able to tolerate the infusion without any major difficulties. Nevertheless, she remains on high flow oxygen as the patient is profoundly hypoxic secondary to underlying pneumonia. No change in mentation. The patient's history bit more comfortable compared to yesterday. We'll make an attempt to wean off the Precedex if possible. 6 hypertension 7 hyperlipidemia 8 troponin leak with a preserved LV function. 9 hyperlipidemia with a sodium level of 147 Plan Keep the patient adequately oxygenated with high flow oxygen at 55 L with an FiO2 of 85% Monitor inflammatory markers Repeat chest x-ray in the morning Continue the combination of Decadron and Remdesivir and the patient completed the course regarding the Covid 19 related pneumonia and the patient also received a unit of convalescent plasma Continue IV Rocephin regarding Haemophilus influenza sepsis, and the patient's p ro-calcitonin level is on the decline Continue the half-normal saline at rate of 75 mL an hour Monitor renal function, creatinine continues to improve Anticoagulation with Lovenox 40 mg subcu every 24 hours, d-dimer is at 3.79 We'll continue to follow. Prognosis poor baseline above-mentioned com orbidities. Monitor respiratory status very closely. condition is critical. High likely that the patient may require intubation mechanical ventilation. C . There is a critically care evaluation that was done and more than 30 minutes.
[2020-01-11 19:18] LABS: Glucose,Whole Blood 195 mg/dL (75-99)
[2020-01-11 23:41] LABS: Glucose,Whole Blood 140 mg/dL (75-99)
--- NOTE | 2020-01-12 00:14 | PN ---
PROGRESS NOTE DATE OF SERVICE: 01/11/2020 REASON FOR FOLLOWUP: Haemophilus influenzae bacteremia source pneumonia. INTERVAL HISTORY: The patient remains to be afebrile. The patient is hemodynamically stable. Mentation remains to be an issue. No nausea, respiratory distress, vomiting or diarrhea or any other changes reported by nursing staff. Patient herself was unable to provide any history. PHYSICAL EXAMINATION: Blood pressure 173/84 with the pulse of 84, temperature 99.2. She is 93% on 60% FiO2. General description is an elderly female lying in bed in no distress. RESPIRATORY SYSTEM: Unlabored breathing, decreased breath sounds at the bases. No wheeze. HEART: S1, S2. Regular rate and rhythm. ABDOMEN: Soft, no tenderness. LABS: Hemoglobin 9.3, white count 12.5, BUN of 61, creatinine 1.45. DIAGNOSTIC IMPRESSION AND PLAN: Patient with Haemophilus influenzae bacteremia source likely pneumonia in this patient currently covered with Rocephin 2 grams daily to continue along with respiratory support and monitor clinical course closely. MMODL / IJN: [id number] /
[2020-01-12] MEDS: METOPROLOL TARTRATE 5 MG/5 ML VIAL IVP SCH ×4 (00:21→18:40)
[2020-01-12] MEDS: INSULIN ASPART (NovoLOG) 100 UNIT/ML VIAL SQ SCH ×4 (00:21→18:42)
[2020-01-12] MEDS: SODIUM CHLORIDE 0.45% 1,000 ML IV SCH ×2 (03:08→18:40)
[2020-01-12] MEDS: hydrALAZINE HCL 20 MG/ML 1 ML VIAL IVP PRN ×2 (03:58→21:15)
[2020-01-12 04:17] LABS: HCT 30.6 % (34.0-46.0); HGB 10.1 gm/dL (11.4-16.0); MCH 30.8 pg (25.0-35.0); MCHC 33.1 g/dL (31.0-37.0); MCV 93.3 fL (80.0-100.0); Mean Platelet Volume 8.5; Platelet Count 196 k/uL (150-450); RBC 3.28 m/uL (3.80-5.40); RDW 13.9 % (11.5-15.5); WBC 17.9 k/uL (3.8-10.6)
[2020-01-12 04:30] LABS: Albumin 2.4 g/dL (3.5-5.0); C Reactive Protein 44.9 mg/L (<10.0); Calcium 8.1 mg/dL (8.4-10.2); Potassium 3.9 mmol/L (3.5-5.1); Total Bilirubin 0.7 mg/dL (0.2-1.3); Total Protein 4.9 g/dL (6.3-8.2)
[2020-01-12] MEDS ORDERED: POTASSIUM CHLORIDE 20 MEQ in WATER FOR INJECTION 1 100ML.BAG IVPB STA (04:43)
[2020-01-12 04:53] LABS: Band Neutrophils % 3 %; Lymphocytes # (M) 1.25 k/uL (1.0-4.8); Neutrophils % (M) 90 %; Nucleated Red Blood Cells 0 /100 WBC (0-0); Total Cells Counted 100
[2020-01-12 06:10] LABS: Glucose,Whole Blood 132 mg/dL (75-99)
--- NOTE | 2020-01-12 08:31 | XR ---
EXAMINATION TYPE: XR chest 1V portable DATE OF EXAM: 01/12/2020 COMPARISON: 01/11/2020 INDICATION: Covid TECHNIQUE: Single frontal view of the chest is obtained. FINDINGS: The heart size is probably prominent. The pulmonary vasculature is prominent. Mild patchy infiltrates in the right midlung. A more moderate patchy infiltrates in the left peripher al lung. Small left pleural effusion is present. IMPRESSION: 1. Patchy bilateral lung infiltrates. Correlate for atypical pneumonia. 2. Small left pleural effusion. 3. Prominence of pulmonary vascular markings. Some pulmonary edema and congestive heart failure could be considered within the differential.
[2020-01-12] MEDS: ENOXAPARIN 40 MG/0.4 ML SYRINGE SQ SCH ×2 (09:28→21:14)
[2020-01-12] MEDS: DEXAMETHASONE SOD PHOSPHATE 10 MG/ML 1 ML VIAL IV SCH (09:29)
[2020-01-12] MEDS: LIDOCAINE 5% PATCH TOPICAL SCH (09:29)
[2020-01-12] MEDS: CHOLECALCIFEROL 1,000 UNIT TAB PO SCH (10:02)
[2020-01-12] MEDS: ASCORBIC ACID 500 MG TAB PO SCH ×2 (10:02→21:14)
[2020-01-12] MEDS: ASPIRIN 81 MG PO SCH (10:02)
[2020-01-12] MEDS: ZINC SULFATE 220 MG CAP PO SCH (10:02)
[2020-01-12] MEDS: SENNOSIDES 8.6 MG TAB PO SCH ×2 (10:02→21:14)
[2020-01-12 11:49] LABS: Glucose,Whole Blood 129 mg/dL (75-99)
--- NOTE | 2020-01-12 11:58 | P.PN ---
Subjective Progress Note Date: 01/12/20 Patient was seen at beside and per nurse she feel minimal improvement, as in opening eyes and saying "No" and "Who". Otherwise not responsive or following commands. She to have increased tone of all extremities. Upon seeing the patient she was not following commands or verbalizing. Patient's white blood cells are trending up. The most current white blood cell which is today is 17.9 and a prior was 12.5. Patient white blood cell last is 99.8F on 01/12/2020 around 8:00 in the morning. Over the weekend the Tmax was as high as 100.1 on 01/10/20. Ideas on board and a feeling the patient has Haemophilus influenza bacteremia and is on the Rocephin. Creatinine is trending down on presentation was 2.18 and the last current one which today is 1.42. CT head is ordered by ICU team. Objective - Vital Signs Vital signs: Vital Signs Temp 99.8 F H 01/12/20 08:00 Pulse 84 01/12/20 10:00 Resp 28 H 01/12/20 10:00 BP 175/91 01/12/20 10:00 Pulse Ox 95 01/12/20 10:00 Intake & Output 01/11/20 01/12/20 01/12/20 18:59 06:59 18:59 Intake Total 875 900 250 Output Total 885 900 125 Balance -10 0 125 Weight 85.5 kg 84.3 kg Intake: IV 875 900 250 Potassium Chloride 20 meq 100 In Water For Injection 1 100ml.bag @ 50 mls/hr IVPB ONCE [facility] Rx#: [id number] Sodium Chloride 0.45% 1, 750 900 150 000 ml @ 75 mls/hr IV . [id number] [facility] Rx#:[id number] Sodium Chloride 0.9% 1, 75 000 ml @ 75 mls/hr IV . [id number] [facility] Rx#:[id number] cefTRIAXone 2 gm In 50 Sodium Chloride 0.9% 50 ml @ 100 mls/hr IVPB Q24H [facility] Rx#:[id number] Output: Urine 885 900 125 Other: Voiding Method Indwelling Catheter Indwelling Catheter Indwelling Catheter - Exam Appears to be in significant respiratory distress. She is coughing and lungs seems congested. Patient is awake, alert. She was attempting is mumbling and did not understand what she was saying. She is not following commands. She seem she is Tremulous. Pupils are 3-4 mm bilaterally and reactive to light. She is tracking me throughout the room. No facial weakness noted bilaterally. Motor: Could not assess because of condition. She was able to lift left upper extremity and was scrathing her nose. She is has increased tone of all extremities. Sensation: Grimaces faces with painful stimuli. - Labs CBC & Chem 7: 01/12/20 04:00 01/12/20 04:05 Labs: Abnormal Lab Results - Last 24 Hours (Table) 01/11/20 01/11/20 01/11/20 Range/Units 03:50 11:13 19:17 WBC (3.8-10.6) k/uL RBC (3.80-5.40) m/uL Hgb (11.4-16.0) gm/dL Hct (34.0-46.0) % Neutrophils # (Manual) (1.3-7.7) k/uL D-Dimer (<0.60) mg/L FEU Chloride (98-107) mmol/L BUN (7-17) mg/dL Creatinine (0.52-1.04) mg/dL Glucose (74-99) mg/dL POC Glucose (mg/dL) 161 H 195 H (75-99) mg/dL Calcium (8.4-10.2) mg/dL AST (14-36) U/L Lactate Dehydrogenase (313-618) U/L C-Reactive Protein (<10.0) mg/L Total Protein (6.3-8.2) g/dL Albumin (3.5-5.0) g/dL Procalcitonin 0.28 H (0.02-0.09) ng/mL 01/11/20 01/12/20 01/12/20 Range/Units 23:39 04:00 04:00 WBC 17.9 H (3.8-10.6) k/uL RBC 3.28 L (3.80-5.40) m/uL Hgb 10.1 L (11.4-16.0) gm/dL Hct 30.6 L (34.0-46.0) % Neutrophils # (Manual) 16.60 H (1.3-7.7) k/uL D-Dimer 2.89 H (<0.60) mg/L FEU Chloride (98-107) mmol/L BUN (7-17) mg/dL Creatinine (0.52-1.04) mg/dL Glucose (74-99) mg/dL POC Glucose (mg/dL) 140 H (75-99) mg/dL Calcium (8.4-10.2) mg/dL AST (14-36) U/L Lactate Dehydrogenase (313-618) U/L C-Reactive Protein (<10.0) mg/L Total Protein (6.3-8.2) g/dL Albumin (3.5-5.0) g/dL Procalcitonin (0.02-0.09) ng/mL 01/12/20 01/12/20 Range/Units 04:05 06:09 WBC (3.8-10.6) k/uL RBC (3.80-5.40) m/uL Hgb (11.4-16.0) gm/dL Hct (34.0-46.0) % Neutrophils # (Manual) (1.3-7.7) k/uL D-Dimer (<0.60) mg/L FEU Chloride 112 H (98-107) mmol/L BUN 64 H (7-17) mg/dL Creatinine 1.42 H (0.52-1.04) mg/dL Glucose 131 H (74-99) mg/dL POC Glucose (mg/dL) 132 H (75-99) mg/dL Calcium 8.1 L (8.4-10.2) mg/dL AST 37 H (14-36) U/L Lactate Dehydrogenase 1587 H (313-618) U/L C-Reactive Protein 44.9 H (<10.0) mg/L Total Protein 4.9 L (6.3-8.2) g/dL Albumin 2.4 L (3.5-5.0) g/dL Procalcitonin (0.02-0.09) ng/mL Microbiology - Last 24 Hours (Table) 01/08/20 20:46 Blood Culture - Preliminary Blood No Growth after 72 hours 01/06/20 15:18 Blood Culture - Preliminary Blood No Growth after 120 hours 01/07/20 07:30 Blood Culture Gram Stain - Final Blood Blood Culture - Final Haemophilus influenzae 01/08/20 20:12 Gram Stain - Final Sputum Sputum Culture - Final Assessment and Plan Assessment: * Altered mental status, likely due to toxic metabolic encephalopathy (TME). Patient has acute renal insufficiency, abnormal liver functions on top of severe bilateral pneumonia with oxygen/carbon dioxide mismatch resulting in TME. * Acute bilateral Covid pneumonia. Chest x-ray showed improving bilateral infiltrates. Patient has received Remdesvir on Decadron, vitamin C, vitamin D and zinc. * Bacteremia with Haemophilus influenza, on Ceftriaxone. * Acute renal insufficiency, improving--improving * Anemia--improving Plan: * Appears patient has toxic metabolic encephalopathy. Patient continues to be very tremulous due to multiple metabolic dysfunction. * Treatment of various metabolic conditions/medical conditions as per IM and critical care. * Infectious disease on the case. Patient has enough medical conditions to produce toxic metabolic encephalopathy. Lumbar puncture, only if recommended by ID. * CT head is ordered by ICU and is pending. * Will order CPK. * I might consider EEG tomorrow if mentation continues to be altered. * The plan was discussed with Primary team and ICU team. Will continue to follow. Alfred Leon MD Neuro-hospitalist Time with Patient: Less than 30
--- NOTE | 2020-01-12 15:03 | P.PN ---
Subjective 74-year-old female is admitted for hypoxia elevated troponins found to have positive Covid. Patient was transferred from outside hospital. Patient at baseline apparently is awake and alert. Patient is oriented 1 at this time. Patient did have fever and shortness of breath because of which patient was sent in here. Patient has elevated urine creatinine of 2.5 baseline is not available but patient apparently has chronic kidney disease. Does follow with a sr. media manager as an outpatient. Patient is found to have mildly elevated troponins of 0.2-3. Patient denied any chest pain although patient is extremely poor historian because of her confusion and hearing problems. His blood cultures from the other hospital came back positive for gram-positive cocci unsure whether it's clusters sore repairs. Patient will be started on vancomyci n infectious disease will be consulted may need tube be switched to daptomycin, considering her kidney function. 01/07/2020 Patient is presently on the eighth liters of oxygen although patient is not in respiratory distress whenever she doesn't wear this oxygen his sister AND saturation dropped down to 80%. Patient blood cultures are positive for coag is negative staph which is a contamination and medics will be discontinued. Repeat cultures are pending 01/08/2020 Patient progressively became dyspneic was transferred to intensive care unit patient was started on Rocephin and azithromycin for secondary bacterial pneumonia, IV recommended vancomycin as well. Patient had a central line don fariba.. Creatinine improved to 1.9. Patient is presently on Remdesivir date 3 along with Decadron, vitamin C, vitamin D and zinc 01/09/2020 Patient is bacteremic with Haemophilus influenza repeat blood cultures will be obtained and patient is on Rocephin patient is presently on 55 L of oxygen. Tawana roman has severe toxic encephalopathy with tremors. Neurology evaluated the patient. 01/10/2020 Patient's tremors and shaking he is better patient continues to be on Pracedex. Bicarbonate drip was discontinued patient has hyperchloremia and hyper next anemia because of which patient will be switched to half-normal saline. 01/11/2020 Patient is also receiving metoprolol apart from a clonidine because of her tachycardia and hypertension patient presently doesn't have an NG tube patient is presently nothing by mouth. Patient is presently on 60 L of oxygen via able. 01/12/2020 Patient still remains on high oxygen about the 55 L. Patient repeat cultures for last 3 days with negative had Haemophilus influenza. Remains on Decadron. Patient has toxic metabolic encephalopathy. Review of systems: Unable to obtain due to her clinical condition All inpatient medications were reviewed and appropriate changes in these medications as dictated in the interval history and assessment and plan. Objective - Vital Signs Vital signs: Vital Signs Temp 99.8 F H 01/12/20 08:00 Pulse 84 01/12/20 10:00 Resp 28 H 01/12/20 10:00 BP 175/91 01/12/20 10:00 Pulse Ox 95 01/12/20 10:00 Intake & Output 01/11/20 01/12/20 01/12/20 18:59 06:59 18:59 Intake Total 875 900 750 Output Total 885 900 710 Balance -10 0 40 Weight 85.5 kg 84.3 kg 84.3 kg Intake: IV 875 900 750 Potassium Chloride 20 meq 100 In Water For Injection 1 100ml.bag @ 50 mls/hr IVPB ONCE [email or web address] Rx#: [id number] Sodium Chloride 0.45% 1, 750 900 600 000 ml @ 75 mls/hr IV . [id number] [facility] Rx#:[id number] Sodium Chloride 0.9% 1, 75 000 ml @ 75 mls/hr IV . [id number] [facility] Rx#:[id number] cefTRIAXone 2 gm In 50 50 Sodium Chloride 0.9% 50 ml @ 100 mls/hr IVPB Q24H [facility] Rx#:[id number] Output: Urine 885 900 710 Other: Voiding Method Indwelling Catheter Indwelling Catheter Indwelling Catheter - Exam PHYSICAL EXAMINATION: GENERAL: Drowsy arousable, not in any acute distress. Well developed, well nourished. Patient has nonessential tremor, possibility of myoclonus, much better. HEENT: Pupils are round and equally reacting to light. EOMI. No scleral icterus. No conjunctival pallor. Normocephalic, atraumatic. No pharyngeal erythema. No thyromegaly. CARDIOVASCULAR: S1 and S2 present. No murmurs, rubs, or gallops. PULMONARY: Bilateral crackles and rhonchi diffusely ABDOMEN: Soft, nontender, nondistended, normoactive bowel sounds. No palpable organomegaly. MUSCULOSKELETAL: No joint swelling or deformity. EXTREMITIES: No cyanosis, clubbing, or pedal edema. NEUROLOGICAL: Gross neurological examination did not reveal any focal deficits. SKIN: No rashes. Note: Because of COVID 19 isolation, some of the history and physical exam findings are indirect and obtained from nursing staff, and other physician examinations to avoid unnecessary contact with the patient. - Labs CBC & Chem 7: 01/12/20 04:00 01/12/20 04:05 Labs: Abnormal Lab Results - Last 24 Hours (Table) 01/11/20 01/11/20 01/12/20 Range/Units 19:17 23:39 04:00 WBC 17.9 H (3.8-10.6) k/uL RBC 3.28 L (3.80-5.40) m/uL Hgb 10.1 L (11.4-16.0) gm/dL Hct 30.6 L (34.0-46.0) % Neutrophils # (Manual) 16.60 H (1.3-7.7) k/uL D-Dimer (<0.60) mg/L FEU Chloride (98-107) mmol/L BUN (7-17) mg/dL Creatinine (0.52-1.04) mg/dL Glucose (74-99) mg/dL POC Glucose (mg/dL) 195 H 140 H (75-99) mg/dL Calcium (8.4-10.2) mg/dL AST (14-36) U/L Lactate Dehydrogenase (313-618) U/L C-Reactive Protein (<10.0) mg/L Total Protein (6.3-8.2) g/dL Albumin (3.5-5.0) g/dL 01/12/20 01/12/20 01/12/20 Range/Units 04:00 04:05 06:09 WBC (3.8-10.6) k/uL RBC (3.80-5.40) m/uL Hgb (11.4-16.0) gm/dL Hct (34.0-46.0) % Neutrophils # (Manual) (1.3-7.7) k/uL D-Dimer 2.89 H (<0.60) mg/L FEU Chloride 112 H (98-107) mmol/L BUN 64 H (7-17) mg/dL Creatinine 1.42 H (0.52-1.04) mg/dL Glucose 131 H (74-99) mg/dL POC Glucose (mg/dL) 132 H (75-99) mg/dL Calcium 8.1 L (8.4-10.2) mg/dL AST 37 H (14-36) U/L Lactate Dehydrogenase 1587 H (313-618) U/L C-Reactive Protein 44.9 H (<10.0) mg/L Total Protein 4.9 L (6.3-8.2) g/dL Albumin 2.4 L (3.5-5.0) g/dL 01/12/20 Range/Units 11:47 WBC (3.8-10.6) k/uL RBC (3.80-5.40) m/uL Hgb (11.4-16.0) gm/dL Hct (34.0-46.0) % Neutrophils # (Manual) (1.3-7.7) k/uL D-Dimer (<0.60) mg/L FEU Chloride (98-107) mmol/L BUN (7-17) mg/dL Creatinine (0.52-1.04) mg/dL Glucose (74-99) mg/dL POC Glucose (mg/dL) 129 H (75-99) mg/dL Calcium (8.4-10.2) mg/dL AST (14-36) U/L Lactate Dehydrogenase (313-618) U/L C-Reactive Protein (<10.0) mg/L Total Protein (6.3-8.2) g/dL Albumin (3.5-5.0) g/dL Microbiology - Last 24 Hours (Table) 01/08/20 20:46 Blood Culture - Preliminary Blood No Growth after 72 hours 01/06/20 15:18 Blood Culture - Preliminary Blood No Growth after 120 hours 01/07/20 07:30 Blood Culture Gram Stain - Final Blood Blood Culture - Final Haemophilus influenzae Assessment and Plan Plan: -Acute hypoxic respiratory failure: secondary to covid 19 pneumonia. Patient was started on Decadron and completed Remdesivir patient is presently on a 55L of oxygen and patient will have an NG tube today. - secondary bacterial pneumonia , patient has bacteremia with Haemophilus influenza, patient is on Rocephin presently. Repeat blood cultures are negative - bacteremia: -Toxic encephalopathy, altered mental status: Secondary to infection -Elevated troponin secondary to infection and renal failure -Possible difficulty renal failure patient does have chronic kidney disease unable to stage chronic kidney disease is at baseline is not known. Patient wi ll continued on IV fluids once serum creatinine can you to improve -Hypertension: Patient is presently on clonidine patch. -Hyperlipidemia Possible myoclonus: Secondary to encephalopathy, neurology evaluated the patient. -DVT prophylaxis with heparin
--- NOTE | 2020-01-12 16:25 | CT ---
EXAMINATION TYPE: CT brain wo con DATE OF EXAM: 01/12/2020 COMPARISON: None HISTORY: 75 year-old female confusion, altered mental status TECHNIQUE: Examination was done in axial plane without intravenous contrast. Coronal and sagittal r econstructions performed. CT DLP: 2176.4 mGycm Automated exposure control for dose reduction was used. FINDINGS: There is no evidence of acute intracranial hemorrhage, acute ischemic changes, mass, mass-effect, or extra-axial fluid collection. There is no effacement of cerebral sulci or basal subarachnoid cister ns. There is no hydrocephalus. There is no midline shift. Griffin-white matter distinction is preserv ed. Mild generalized supratentorial volume loss. Air-fluid level right sphenoid sinus. Mastoid air cells are well pneumatized. Visualized orbits and g lobes are intact. IMPRESSION: 1. Mild generalized atrophy. No acute intracranial abnormality seen. 2. Air fluid level right sphenoid sinus. Correlate for acute sinusitis.
--- NOTE | 2020-01-12 16:28 | XR ---
EXAMINATION TYPE: XR chest 1V portable DATE OF EXAM: 01/12/2020 Comparison: 01/12/2020 Clinical History: 75-year-old female confirm NG tube placement Findings: NG tube courses below the diaphragm. Left subclavian CVC tip at the lower SVC. Heart upper limits of normal in size. Patchy and confluent peripheral and mid lung opacities are similar. Impression: Satisfactory NG tube. Otherwise, stable peripheral and mid lung bilateral infiltrates.
--- NOTE | 2020-01-12 16:32 | P.PN ---
Subjective Progress Note Date: 01/12/20 Principal diagnosis: Acute hypoxic respiratory failure secondary to covid 19 pneumonitis. A 74-year-old female patient, very poor historian with what seems to be advanced dementia in addition to history of hypertension and hyperlipidemia was coming in for shortness of breath and hypoxemia and this has been confirmed to be related to COVID 19 infection/pneumonia. The patient was transferred from an outside hospital. The patient is unable to give any further history. Review of her chest x-ray shows that the patient is a peripheral patchy pulmonary interstitial airspace disease infiltrates bilaterally and the patient is currently on 8 L of oxygen by nasal cannula to maintain a saturation above 90%. Her current pulse ox is around 93%. The white cell count is at 10.6. The patient also has a renal failure and the chronicity of the renal failure is not established. Her previous creatinine is unknown to me at this point in time. She also has a mild component of anion gap metabolic acidosis with a anion gap of 14 and a serum bicarb level of 17. LDH is 1213 and the patient is a CRP of 301. Also, the patient had a troponin leak with troponin levels being at 0.1 0.1 and 0.2 respectively. Pro calcitonin level was elevated at 1.54. She is afebrile. The blood cultures from the outside hospital showing gram-positive cocci and is not sure if it was in clusters overnight. The patient was started on vancomycin as an empiric antibiotic coverage. In terms of Covid 19 infection, the patient was started on a combination of Decadron and Remdesivir The patient is seen today 01/07/2020 in follow-up on selective care unit. She does have advanced dementia and is a poor historian. She is currently resting fairly comfortably in bed. She is on 8 L high flow nasal cannula to maintain O2 saturations in the 90s. She's afebrile. Hemodynamically stable. White count 27.1. Hemoglobin 12.2. Lymphocytes 0.81. Sodium 139. Potassium 4.2. Bicarb 14. Creatinine 2.06. AST 102. ALT 47. Troponin 0.266. C-reactive protein 192. Pro calcitonin 1.45. She remains on Decadron, vitamin C, vitamin D, zinc. She is receiving day #2 of Remdesivir. On 01/08/2020, the patient has been transferred to the intensive care unit. The patient developed progressive dyspnea tachypnea and hypoxemia overnight and the patient had to be transferred to the intensive care unit. At this point in time, the patient is confused, lethargic, at times agitated, unable to follow any commands and unable to hold a conversation. She gets quite restless when stimulated. She is sensing critical condition on 4 extremities. No neck stiffness. She is moving all 4 extremities and the patient has no focal neurological deficits. No neck stiffness. The patient was noted to have a possible culture an outside hospital and the patient was given vancomycin in addition to Zithromax and Rocephin per IDs recommendation. Nevertheless, based on our cultures, the results are still negative for now and there is no clear evidence of any bacterial infection at this point in time. Noted the Pro calcitonin level was elevated. At the same time, the patient has acute Covid 19 related to pneumonia bilateral. The patient is on high flow oxygen at 15 L with an FiO2 of 73% to maintain a saturation above 90%. A triple lumen catheter was established in the left subclavian. The chest x-ray post line insertion showed no evidence of any pneumothorax. Nevertheless, there was dense bilateral pulmonary infiltrates consistent with coronavirus Covid 19 related pneumonia. The patient is obviously tachypneic. She is having respiratory distress even on high flow oxygen. No use of accessory muscles of breathing. The blood work from today shows a troponin of 0.23. Vancomycin level is at 19.9. The patient a component of non-anion gap metabolic acidosis from yesterday. The patient is a bicarb drip which is running at 100 mL an hour. Serum bicarb is up to 18. Creatinine is down to 1.9, somewhat improved compared to yesterday. At the same time, the patient is being treated with a combination of Decadron, vitamin C, vitamin D, zinc. She is receiving day #3 of Remdesivir. On 01/09/2020, the patient seems to be less agitated as the patient was started on Precedex which is currently running at 0.25 mg per KG per minute. The patient seems to much more comfortable at this point in time. She remains on high flow oxygen 55 L with an FiO2 of 85% with a pulse ox of 96%. The patient's chest x-ray still showing diffuse breath and pulmonary infiltrates. Note that the patient was infected with Covid 19 and she had a Covid 19 related pneumonia in addition to septic shock secondary to Haemophilus influenza bacteremia. Noted the patient's blood culture came back positive for Haemophilus influenza. The patient is currently on IV Rocephin 2 g every 24 hours in regards to this septicemia. The patient is also being treated for coronavirus Covid 19 pneumonia with a combination of Decadron and Remdesivir and the patient also received a unit of, convalescent plasma. The patient has a ferritin level of 3188. The patient has a LDH of 1147 and the CRP is down to 122. The patient is afebrile. Renal function and for the creatinine is down to 1.7. Serum bicarbs of 28 and the patient was being given D5 with 3 A of bicarb at the rate of 100 mL an hour. She is afebrile. She is still moans and at times becomes restless and tremulous. Nevertheless, there is no seizure activity noted and the patient is not able to follow single commands. Which are diffuse. There is peripheral infiltrate in the right and the left. There is somewhat improvement in pulmonary infiltration. Is a left sided subclavian triple-lumen catheter in place. The Pro calcitonin level is down to 1.45. 01/10/2020, the patient remains on Precedex and seems to be quite comfortable at a dose of 0.35 mcg per KG per hour. The patient is also on high flow oxygen at 55 L with an FiO2 of 80%. She is able to maintain a saturation above 90%. The chest x-ray is showing persistent airspace disease throughout the left lung which remains unchanged compared to yesterday. There is also scattered infiltration within the periphery of the right lung which probably have improved on today's evaluation. Note that the patient also had a positive blood culture with Haemophilus influenza. Accordingly, the patient was treated with IV Rocephin 2 g every 24 hours. The Pro calcitonin level is on the decline is currently down to 0.42. Hemodynamically stable and the patient is not requiring any pressors and she is receiving normal saline today to 75 mL an hour. The patient blood work showed a sodium of 147, BUN of 65 with a creatinine of 1.5, and the patient has an LDH of 1789, CRP of 73, and a d-dimer today's at 3.79. 01/11/2020, I'm seeing the patient for a follow-up. Her condition essentially unchanged compared to yesterday. The patient is still requiring Precedex to control her agitation and restlessness pH she remains on Precedex at a dose of 0.4 g per KG per minute. This is able to control her condition quite well. Meanwhile, the patient continues to remain hypoxic respiratory failure. She has required high flow oxygen at 55 L and FiO2 of 60%. The patient is on half- normal saline at the rate of 75 mL an hour. Urine output in the order of 70 mL an hour. Input output balance is positive for 21 mL over the past 24 hours. The patient's renal function with a creatinine of 1.47 which is improved compared to yesterday. Sodium level remains unchanged at 147. Chest x-ray findings are essentially stable with diffuse breath and pulmonary infiltrates consistent with Covid 19 related pneumonia. The patient remains on IV Decadron. The patient remains on IV Rocephin regarding her Haemophilus influenza septicemia. Hemodynamically stable. Maintaining her on blood pressure. She remains on Lovenox 40 mg subcu every 12 hours. Reevaluated today on 01/12/20, remains in the ICU, remains on airvo at 60 L/m flow, and 58% FiO2. O2 sats is 96%. Patient was admitted on 01/04, transferred to the ICU on 01/06. Receiving small dose of Precedex because of extreme a gitation on presentation, patient is on Lovenox Q at 40 mg subcu twice a day, patient is also being treated with Rocephin for presumptive Haemophilus influenza pneumonia. Patient has not been eating, hence I will recommend a nasogastric tube placement and enteral feeding. She will be seen by neurology on consultation as the patient seems to be quite confused. And extremely stiff and rigid. Her CT of the brain showed mild generalized atrophy and air fluid levels in the right sphenoid sinus. Likely secondary to acute sinusitis. Chest x-ray shows bilateral peripheral extensive infiltrates consistent with Covid 19 pneumonitis. Objective - Vital Signs Vital signs: Vital Signs Temp 98.1 F 01/12/20 12:00 Pulse 84 01/12/20 14:00 Resp 27 H 01/12/20 14:00 BP 181/100 01/12/20 14:00 Pulse Ox 97 01/12/20 15:32 Intake & Output 01/11/20 01/12/20 01/12/20 18:59 06:59 18:59 Intake Total 875 900 750 Output Total 885 900 710 Balance -10 0 40 Weight 85.5 kg 84.3 kg 84.3 kg Intake: IV 875 900 750 Potassium Chloride 20 meq 100 In Water For Injection 1 100ml.bag @ 50 mls/hr IVPB ONCE [facility] Rx#: [id number] Sodium Chloride 0.45% 1, 750 900 600 000 ml @ 75 mls/hr IV . [id number] [facility] Rx#:[id number] Sodium Chloride 0.9% 1, 75 000 ml @ 75 mls/hr IV . [id number] [facility] Rx#:[id number] cefTRIAXone 2 gm In 50 50 Sodium Chloride 0.9% 50 ml @ 100 mls/hr IVPB Q24H [facility] Rx#:[id number] Output: Urine 885 900 710 Other: Voiding Method Indwelling Catheter Indwelling Catheter Indwelling Catheter - Exam GENERAL: This is a 74-year-old female patient on high flow oxygen, confused, does not follow any instructions, nonverbal, and seems to be stiff and rigid. Head exam was generally normal. There was no scleral icterus or corneal arcus. Mucous membranes were moist. HEENT: Pupils are round and equally reacting to light. EOMI. No scleral icterus. No conjunctival pallor. Normocephalic, atraumatic. No pharyngeal erythema. No thyromegaly. The patient subclavian triple lumen catheter inserted in left subclavian vein. CARDIOVASCULAR: S1 and S2 present. No murmurs, rubs, or gallops. PULMONARY: Symmetrical chest expansion, rhonchi noted bilaterally. ABDOMEN: Soft, nontender, nondistended, normoactive bowel sounds. No palpable organomegaly. MUSCULOSKELETAL: No joint swelling or deformity. EXTREMITIES: No cyanosis, clubbing, or pedal edema. NEUROLOGICAL: Confused, stiff and rigid, does not follow any instructions. But awake. SKIN: No rashes. - Labs CBC & Chem 7: 01/12/20 04:00 01/12/20 04:05 Labs: Abnormal Lab Results - Last 24 Hours (Table) 01/11/20 01/11/20 01/12/20 Range/Units 19:17 23:39 04:00 WBC 17.9 H (3.8-10.6) k/uL RBC 3.28 L (3.80-5.40) m/uL Hgb 10.1 L (11.4-16.0) gm/dL Hct 30.6 L (34.0-46.0) % Neutrophils # (Manual) 16.60 H (1.3-7.7) k/uL D-Dimer (<0.60) mg/L FEU Chloride (98-107) mmol/L BUN (7-17) mg/dL Creatinine (0.52-1.04) mg/dL Glucose (74-99) mg/dL POC Glucose (mg/dL) 195 H 140 H (75-99) mg/dL Calcium (8.4-10.2) mg/dL AST (14-36) U/L Lactate Dehydrogenase (313-618) U/L C-Reactive Protein (<10.0) mg/L Total Protein (6.3-8.2) g/dL Albumin (3.5-5.0) g/dL 01/12/20 01/12/20 01/12/20 Range/Units 04:00 04:05 06:09 WBC (3.8-10.6) k/uL RBC (3.80-5.40) m/uL Hgb (11.4-16.0) gm/dL Hct (34.0-46.0) % Neutrophils # (Manual) (1.3-7.7) k/uL D-Dimer 2.89 H (<0.60) mg/L FEU Chloride 112 H (98-107) mmol/L BUN 64 H (7-17) mg/dL Creatinine 1.42 H (0.52-1.04) mg/dL Glucose 131 H (74-99) mg/dL POC Glucose (mg/dL) 132 H (75-99) mg/dL Calcium 8.1 L (8.4-10.2) mg/dL AST 37 H (14-36) U/L Lactate Dehydrogenase 1587 H (313-618) U/L C-Reactive Protein 44.9 H (<10.0) mg/L Total Protein 4.9 L (6.3-8.2) g/dL Albumin 2.4 L (3.5-5.0) g/dL 01/12/20 Range/Units 11:47 WBC (3.8-10.6) k/uL RBC (3.80-5.40) m/uL Hgb (11.4-16.0) gm/dL Hct (34.0-46.0) % Neutrophils # (Manual) (1.3-7.7) k/uL D-Dimer (<0.60) mg/L FEU Chloride (98-107) mmol/L BUN (7-17) mg/dL Creatinine (0.52-1.04) mg/dL Glucose (74-99) mg/dL POC Glucose (mg/dL) 129 H (75-99) mg/dL Calcium (8.4-10.2) mg/dL AST (14-36) U/L Lactate Dehydrogenase (313-618) U/L C-Reactive Protein (<10.0) mg/L Total Protein (6.3-8.2) g/dL Albumin (3.5-5.0) g/dL Microbiology - Last 24 Hours (Table) 01/08/20 20:46 Blood Culture - Preliminary Blood No Growth after 72 hours 01/06/20 15:18 Blood Culture - Preliminary Blood No Growth after 120 hours Assessment and Plan Assessment: Impression: Acute hypoxic respiratory failure Acute covid 19 pneumonitis Acute bacteremia secondary to Haemophilus influenza Underlying Haemophilus influenza pneumonia is not entirely ruled out. Acute kidney injury Acute toxic metabolic encephalopathy secondary to above. Hypertension. Dyslipidemia. Altered mental status/encephalopathy as noted above felt to be toxic metabolic encephalopathy however I did recommend a neurological evaluation. Recommendation: Continue high flow oxygen and high FiO2. Titrate accordingly. Continue to monitor inflammatory markers. Continue Decadron. Continue remdesivir Continue antibiotics presently on Rocephin for Haemophilus influenza sepsis and elevated pro calcitonin. Continue Lovenox 40 mg twice a day. Continue GI and DVT prophylaxis. Neurological consultation to assess altered mental status. Prognosis remains guarded, patient may require intubation mechanical ventilation if her condition gets any worse. We'll continue to follow. Time with Patient: Less than 30
[2020-01-12 18:02] LABS: Glucose,Whole Blood 208 mg/dL (75-99)
--- NOTE | 2020-01-12 23:02 | PN ---
PROGRESS NOTE DATE OF SERVICE: 01/12/2020 REASON FOR FOLLOWUP: Haemophilus influenzae pneumonia. INTERVAL HISTORY: The patient is currently afebrile. The patient is slightly more awake and alert, still requiring high-flow nasal oxygen, but hemodynamically stable, not requiring any pressor support. No vomiting or any diarrhea has been reported. PHYSICAL EXAMINATION: Blood pressure 177/100 with a pulse of 73, temperature 98.2. She is 94% on high-flow oxygen. General description is an elderly female lying in bed in no distress. RESPIRATORY SYSTEM: Unlabored breathing with decreased breath sounds at the base. No wheeze. HEART: S1, S2. Regular rate and rhythm. ABDOMEN: Soft. No tenderness. LABS: Hemoglobin is 10.8, white count 17.9, BUN of 64, creatinine 1.42. DIAGNOSTIC IMPRESSION AND PLAN: Patient with Haemophilus influenzae bacteremia; source is likely pneumonia in this patient covered with Rocephin 2 grams daily; to continue while monitoring clinical course closely. Continue with supportive care. MMODL / IJN: [id number] /
[2020-01-13 01:05] LABS: Glucose,Whole Blood 180 mg/dL (75-99)
[2020-01-13] MEDS: INSULIN ASPART (NovoLOG) 100 UNIT/ML VIAL SQ SCH ×4 (01:18→18:09)
[2020-01-13] MEDS: METOPROLOL TARTRATE 5 MG/5 ML VIAL IVP SCH ×5 (01:18→23:56)
[2020-01-13 04:35] LABS: HCT 34.4 % (34.0-46.0); HGB 11.1 gm/dL (11.4-16.0); MCH 30.4 pg (25.0-35.0); MCHC 32.4 g/dL (31.0-37.0); MCV 93.7 fL (80.0-100.0); Mean Platelet Volume 8.4; Platelet Count 251 k/uL (150-450); RBC 3.67 m/uL (3.80-5.40); RDW 13.8 % (11.5-15.5); WBC 26.2 k/uL (3.8-10.6)
[2020-01-13 04:47] LABS: C Reactive Protein 32.4 mg/L (<10.0); Calcium 8.3 mg/dL (8.4-10.2); Potassium 4.1 mmol/L (3.5-5.1)
[2020-01-13 05:15] LABS: Lymphocytes # (M) 1.05 k/uL (1.0-4.8); Monocytes # (M) 1.05 k/uL (0-1.0); Neutrophils % (M) 92 %; Nucleated Red Blood Cells 0 /100 WBC (0-0); Total Cells Counted 100
[2020-01-13 05:57] LABS: Glucose,Whole Blood 143 mg/dL (75-99)
[2020-01-13 06:49] LABS: Glucose,Whole Blood 140 mg/dL (75-99)
[2020-01-13] MEDS ORDERED: ACETAMINOPHEN IV (For NPO) 1,000 MG in EMPTY BAG 1 BAG IVPB STA (07:16)
--- NOTE | 2020-01-13 08:52 | XR ---
EXAMINATION TYPE: XR chest 1V portable DATE OF EXAM: 01/13/2020 Comparison: 01/12/2020 Clinical History: 75 year-old female shortness of breath Findings: Patient is rotated toward the left and oblique towards the left. Patient's chin also obscures the lef t apex. NG tube courses below the diaphragm but though the distal aspect is out of the field of view. Focal retrocardiac left basilar opacity. Additional patchy and confluent opacities in the periphery of the lungs persists. Left subclavian CVC tip at the lower SVC level. Advanced degenerative change a t both shoulders. Impression: 1. Exam limited by patient positioning. Patchy and confluent peripheral infiltrates persist. 2. Worsening airspace disease at the left base.
[2020-01-13] MEDS: CHOLECALCIFEROL 1,000 UNIT TAB PO SCH (09:25)
[2020-01-13] MEDS: SENNOSIDES 8.6 MG TAB PO SCH ×2 (09:25→21:07)
[2020-01-13] MEDS: ASCORBIC ACID 500 MG TAB PO SCH ×2 (09:25→21:07)
[2020-01-13] MEDS: ASPIRIN 81 MG PO SCH (09:25)
[2020-01-13] MEDS: ZINC SULFATE 220 MG CAP PO SCH (09:25)
[2020-01-13] MEDS: ENOXAPARIN 40 MG/0.4 ML SYRINGE SQ SCH ×2 (09:25→21:07)
[2020-01-13] MEDS: DEXAMETHASONE SOD PHOSPHATE 10 MG/ML 1 ML VIAL IV SCH (09:26)
[2020-01-13] MEDS: LIDOCAINE 5% PATCH TOPICAL SCH (09:28)
--- NOTE | 2020-01-13 09:29 | CDI ---
Documentation Clarification Form Date: 01/13/2020 09:08:26 AM From: Stefanie Brito RN, CCDS Admit Date: 01/05/2020 09:34:00 PM Patient Name: Meeta Fuller Visit Number: [id number] ATTENTION: The Clinical Documentation Specialists (CDI) and [facility] Coding Staff appreciate your assistance in clarifying documentation. Please respond to the clarification below the line at the bottom and electronically sign. The CDI & [facility] Coding staff will review the response and follow-up if needed. Please note: Queries are made part of the Legal Health Record. If you have any questions, please contact the author of this message via ITS. Dr. Sharita Abreu Anemia is documented in the progress notes with declining Hgb and Hct in a critically ill patient and requires further specificity. History/Risk Factors: Covid 19 pneumonia with acute hypoxic respiratory failure, CKD, Sepsis Clinical indicators: 01/08 & 01/11 Neurology progress Note: " Acute renal insufficiency, improving * Anemia, worsening 01/09-01/11 Attending Progress Note: "Bicarbonate drip was discontinued patient has hypochloremia and hyper next anemia because of which patient will be switched to half-normal saline." 01/05-01/12 Hemoglobin: 11.4/12.2/8.5/9.9/9.3/10.1/11.1 01/05-01/12 Hematocrit: 34.5/37.8/25.2/29.6/28.4/30.6/34.4 Treatment: Lab monitoring AM daily In order to capture the severity of condition, please clarify the type of anemia and etiology if known: Acute blood loss anemia Acute on chronic blood loss anemia Chronic blood loss anemia Iron deficiency anemia Drug induced anemia Nutritional anemia Anemia of chronic kidney disease Unable to determine Other, please specify (Last Form Revision: April 2019) Anemia was not dictated in my note perhaps should as a physician who dictated that assessment MTDD
[2020-01-13] MEDS: hydrALAZINE HCL 20 MG/ML 1 ML VIAL IVP PRN ×2 (10:28→17:10)
[2020-01-13 11:00] LABS: Ferritin 3122.3 ng/mL (10.0-291.0)
[2020-01-13] MEDS: ALBUTEROL HFA INHALER INHALATION PRN (11:20)
[2020-01-13 12:03] LABS: Glucose,Whole Blood 185 mg/dL (75-99)
--- NOTE | 2020-01-13 12:14 | P.PN ---
Subjective Progress Note Date: 01/13/20 Principal diagnosis: COVID 19 pneumonia A 74-year-old female patient, very poor historian with what seems to be advanced dementia in addition to history of hypertension and hyperlipidemia was coming in for shortness of breath and hypoxemia and this has been confirmed to be related to COVID 19 infection/pneumonia. The patient was transferred from an outside hospital. The patient is unable to give any further history. Review of her chest x-ray shows that the patient is a peripheral patchy pulmonary interstitial airspace disease infiltrates bilaterally and the patient is currently on 8 L of oxygen by nasal cannula to maintain a saturation above 90%. Her current pulse ox is around 93%. The white cell count is at 10.6. The patient also has a renal failure and the chronicity of the renal failure is not established. Her previous creatinine is unknown to me at this point in time. She also has a mild component of anion gap metabolic acidosis with a anion gap of 14 and a serum bicarb level of 17. LDH is 1213 and the patient is a CRP of 301. Also, the patient had a troponin leak with troponin levels being at 0.1 0.1 and 0.2 respectively. Pro calcitonin level was elevated at 1.54. She is afebrile. The blood cultures from the outside hospital showing gram-positive cocci and is not sure if it was in clusters overnight. The patient was started on vancomycin as an empiric antibiotic coverage. In terms of Covid 19 infection, the patient was started on a combination of Decadron and Remdesivir The patient is seen today 01/07/2020 in follow-up on selective care unit. She does have advanced dementia and is a poor historian. She is currently resting fairly comfortably in bed. She is on 8 L high flow nasal cannula to maintain O2 saturations in the 90s. She's afebrile. Hemodynamically stable. White count 27.1. Hemoglobin 12.2. Lymphocytes 0.81. Sodium 139. Potassium 4.2. Bicarb 14. Creatinine 2.06. AST 102. ALT 47. Troponin 0.266. C-reactive protein 192. Pro calcitonin 1.45. She remains on Decadron, vitamin C, vitamin D, zinc. She is receiving day #2 of Remdesivir. On 01/08/2020, the patient has been transferred to the intensive care unit. The patient developed progressive dyspnea tachypnea and hypoxemia overnight and the patient had to be transferred to the intensive care unit. At this point in time, the patient is confused, lethargic, at times agitated, unable to follow any commands and unable to hold a conversation. She gets quite restless when stimulated. She is sensing critical condition on 4 extremities. No neck stiffness. She is moving all 4 extremities and the patient has no focal neurological deficits. No neck stiffness. The patient was noted to have a possible culture an outside hospital and the patient was given vancomycin in addition to Zithromax and Rocephin per IDs recommendation. Nevertheless, based on our cultures, the results are still negative for now and there is no clear evidence of any bacterial infection at this point in time. Noted the Pro calcitonin level was elevated. At the same time, the patient has acute Covid 19 related to pneumonia bilateral. The patient is on high flow oxygen at 15 L with an FiO2 of 73% to maintain a saturation above 90%. A triple lumen catheter was established in the left subclavian. The chest x-ray post line insertion showed no evidence of any pneumothorax. Nevertheless, there was dense bilateral pulmonary infiltrates consistent with coronavirus Covid 19 related pneumonia. The patient is obviously tachypneic. She is having respiratory distress even on high flow oxygen. No use of accessory muscles of breathing. The blood work from today shows a troponin of 0.23. Vancomycin level is at 19.9. The patient a component of non-anion gap metabolic acidosis from yesterday. The patient is a bicarb drip which is running at 100 mL an hour. Serum bicarb is up to 18. Creatinine is down to 1.9, somewhat improved compared to yesterday. At the same time, the patient is being treated with a combination of Decadron, vitamin C, vitamin D, zinc. She is receiving day #3 of Remdesivir. On 01/09/2020, the patient seems to be less agitated as the patient was started on Precedex which is currently running at 0.25 mg per KG per minute. The patient seems to much more comfortable at this point in time. She remains on high flow oxygen 55 L with an FiO2 of 85% with a pulse ox of 96%. The patient's chest x-ray still showing diffuse breath and pulmonary infiltrates. Note that the patient was infected with Covid 19 and she had a Covid 19 related pneumonia in addition to septic shock secondary to Haemophilus influenza bacteremia. No elbert the patient's blood culture came back positive for Haemophilus influenza. The patient is currently on IV Rocephin 2 g every 24 hours in regards to this septicemia. The patient is also being treated for coronavirus Covid 19 pneumonia with a combination of Decadron and Remdesivir and the patient also received a unit of, convalescent plasma. The patient has a ferritin level of 3188. The patient has a LDH of 1147 and the CRP is down to 122. The patient is afebrile. Renal function and for the creatinine is down to 1.7. Serum bicarbs of 28 and the patient was being given D5 with 3 A of bicarb at the rate of 100 mL an hour. She is afebrile. She is still moans and at times becomes restless and tremulous. Nevertheless, there is no seizure activity noted and the patient is not able to follow single commands. Which are diffuse. There is peripheral infiltrate in the right and the left. There is somewhat improvement in pulmonary infiltration. Is a left sided subclavian triple-lumen catheter in place. The Pro calcitonin level is down to 1.45. 01/10/2020, the patient remains on Precedex and seems to be quite comfortable at a dose of 0.35 mcg per KG per hour. The patient is also on high flow oxygen at 55 L with an FiO2 of 80%. She is able to maintain a saturation above 90%. The chest x-ray is showing persistent airspace disease throughout the left lung which remains unchanged compared to yesterday. There is also scattered infiltration within the periphery of the right lung which probably have improved on today's evaluation. Note that the patient also had a positive blood culture with Haemophilus influenza. Accordingly, the patient was treated with IV Rocephin 2 g every 24 hours. The Pro calcitonin level is on the decline is currently down to 0.42. Hemodynamically stable and the patient is not requiring any pressors and she is receiving normal saline today to 75 mL an hour. The patient blood work showed a sodium of 147, BUN of 65 with a creatinine of 1.5, and the patient has an LDH of 1789, CRP of 73, and a d-dimer today's at 3.79. 01/11/2020, I'm seeing the patient for a follow-up. Her condition essentially unchanged compared to yesterday. The patient is still requiring Precedex to control her agitation and restlessness pH she remains on Precedex at a dose of 0.4 g per KG per minute. This is able to control her condition quite well. Meanwhile, the patient continues to remain hypoxic respiratory failure. She has required high flow oxygen at 55 L and FiO2 of 60%. The patient is on half- normal saline at the rate of 75 mL an hour. Urine output in the order of 70 mL an hour. Input output balance is positive for 21 mL over the past 24 hours. The patient's renal function with a creatinine of 1.47 which is improved compared to yesterday. Sodium level remains unchanged at 147. Chest x-ray findings are essentially stable with diffuse breath and pulmonary infiltrates consistent with Covid 19 related pneumonia. The patient remains on IV Decadron. The patient remains on IV Rocephin regarding her Haemophilus influenza septicemia. Hemodynamically stable. Maintaining her on blood pressure. She remains on Lovenox 40 mg subcu every 12 hours. Reevaluated today on 01/12/20, remains in the ICU, remains on airvo at 60 L/m flow, and 58% FiO2. O2 sats is 96%. Patient was admitted on 01/04, transferred to the ICU on 01/06. Receiving small dose of Precedex because of extreme agitation on presentation, patient is on Lovenox Q at 40 mg subcu twice a day, patient is also being treated with Rocephin for presumptive Haemophilus influenza pneumonia. Patient has not been eating, hence I will recommend a nasogastric tube placement and enteral feeding. She will be seen by neurology on consultation as the patient seems to be quite confused. And extremely stiff and rigid. Her CT of the brain showed mild generalized atrophy and air fluid levels in the right sphenoid sinus. Likely secondary to acute sinusitis. Chest x-ray shows bilateral peripheral extensive infiltrates consistent with Covid 19 pneumonitis. On 01/13/2020 patient seen in follow-up in the intensive care unit, she is resting quietly in bed, appears to be in no acute distress, remains on high flow oxygen per Airvo at 45 L/m, with FiO2 of 45%. Her pulse ox currently is 96-98%. Breathing appears to be comfortable, no respiratory distress, she did have a fever spike this morning with a temp of 101.1F, dynamically stable, she receiving 0.45 at 75 ML per hour, NG tube was inserted yesterday for nutritional support and she has Glucerna tube feedings infusing at 20 ML per hour, with a goal of 40. Did water flushes, patient remains confused, however she is not agitated. Denies any significant distress, today's chest x-ray has been reviewed showing patchy and confluent peripheral infiltrates. And worsening airspace disease at the left base. Patient completed her Remdesivir course on 01/10/2020. She received 1 unit of convalescent plasma, is receiving IV Decadron, 6 mg daily, she is on Lovenox at 40 mg twice daily, and her last d- dimer on 01/12/2020 was downtrending and down to 2.89. Her labs have been reviewed today, her white blood cell count is 26.2, hemoglobin is 11.1, sodium is 143, potassium is 4.1, chloride is 112, CO2 is 25, BUN is 67, creatinine is 1.35, renal profile is actually improving, ferritin is 3122, LDH has trended some, and is up to 1778, however her CRP is trending down, and is down to 32.4. Her last Pro calcitonin was downtrending, and was at 0.282 days ago. She is on any medical coverage in the form of Rocephin, ID service is following Objective - Vital Signs Vital signs: Vital Signs Temp 98.7 F 01/13/20 08:00 Pulse 89 01/13/20 11:00 Resp 24 01/13/20 11:00 BP 186/99 01/13/20 11:00 Pulse Ox 96 01/13/20 11:00 Intake & Output 01/12/20 01/13/20 01/13/20 18:59 06:59 18:59 Intake Total 1050 1140 985 Output Total 950 645 200 Balance 100 495 785 Weight 84.3 kg 83.4 kg Intake: IV 1050 900 375 Potassium Chloride 20 meq 100 In Water For Injection 1 100ml.bag @ 50 mls/hr IVPB ONCE STA Rx#: [id number] Sodium Chloride 0.45% 1, 900 900 375 000 ml @ 75 mls/hr IV . [id number] [facility] Rx#:[id number] cefTRIAXone 2 gm In 50 Sodium Chloride 0.9% 50 ml @ 100 mls/hr IVPB Q24H [facility] Rx#:[id number] Intake, IV Titration 450 Amount ACETAMINOPHEN IV (For NPO 400 ) 1,000 mg In Empty Bag 1 bag @ 400 mls/hr IVPB ONCE STA Rx#:[id number] cefTRIAXone 2 gm In 50 Sodium Chloride 0.9% 50 ml @ 100 mls/hr IVPB Q24HR [facility] Rx#:[id number] Tube Feeding 150 100 Other 90 60 Output: Urine 950 645 200 Other: Voiding Method Indwelling Catheter Indwelling Catheter - Exam GENERAL EXAM: Alert, confused, but not agitated, 75-year-old white female, on high flow oxygen per Airvo group at 45 L/m, and FiO2 of 45% with a pulse ox of 96% comfortable in no apparent distress. HEAD: Normocephalic/atraumatic. EYES: Normal reaction of pupils, equal size. Conjunctiva pink, sclera white. NOSE: Clear with pink turbinates. THROAT: No erythema or exudates. NECK: No masses, no JVD, no thyroid enlargement, no adenopathy. CHEST: No chest wall deformity. Symmetrical expansion. LUNGS: Equal air entry with no crackles, wheeze, rhonchi or dullness. CVS: Regular rate and rhythm, normal S1 and S2, no gallops, no murmurs, no rubs ABDOMEN: Soft, nontender. No hepatosplenomegaly, normal bowel sounds, no guar ding or rigidity. EXTREMITIES: No clubbing, no edema, no cyanosis, 2+ pulses and upper and lower extremities. MUSCULOSKELETAL: Muscle strength and tone normal. SPINE: No scoliosis or deformity SKIN: No rashes CENTRAL NERVOUS SYSTEM: Confused, but not agitated No focal deficits, tone is normal in all 4 extremities. - Labs CBC & Chem 7: 01/13/20 04:15 01/13/20 04:15 Labs: Abnormal Lab Results - Last 24 Hours (Table) 01/12/20 01/13/20 01/13/20 Range/Units 18:01 01:04 04:15 WBC 26.2 H (3.8-10.6) k/uL RBC 3.67 L (3.80-5.40) m/uL Hgb 11.1 L (11.4-16.0) gm/dL Neutrophils # (Manual) 24.10 H (1.3-7.7) k/uL Monocytes # (Manual) 1.05 H (0-1.0) k/uL Chloride (98-107) mmol/L BUN (7-17) mg/dL Creatinine (0.52-1.04) mg/dL Glucose (74-99) mg/dL POC Glucose (mg/dL) 208 H 180 H (75-99) mg/dL Calcium (8.4-10.2) mg/dL Ferritin (10.0-291.0) ng/mL Lactate Dehydrogenase (313-618) U/L C-Reactive Protein (<10.0) mg/L 01/13/20 01/13/20 01/13/20 Range/Units 04:15 05:55 06:48 WBC (3.8-10.6) k/uL RBC (3.80-5.40) m/uL Hgb (11.4-16.0) gm/dL Neutrophils # (Manual) (1.3-7.7) k/uL Monocytes # (Manual) (0-1.0) k/uL Chloride 112 H (98-107) mmol/L BUN 67 H (7-17) mg/dL Creatinine 1.35 H (0.52-1.04) mg/dL Glucose 162 H (74-99) mg/dL POC Glucose (mg/dL) 143 H 140 H (75-99) mg/dL Calcium 8.3 L (8.4-10.2) mg/dL Ferritin 3122.3 H (10.0-291.0) ng/mL Lactate Dehydrogenase 1778 H (313-618) U/L C-Reactive Protein 32.4 H (<10.0) mg/L 01/13/20 Range/Units 12:02 WBC (3.8-10.6) k/uL RBC (3.80-5.40) m/uL Hgb (11.4-16.0) gm/dL Neutrophils # (Manual) (1.3-7.7) k/uL Monocytes # (Manual) (0-1.0) k/uL Chloride (98-107) mmol/L BUN (7-17) mg/dL Creatinine (0.52-1.04) mg/dL Glucose (74-99) mg/dL POC Glucose (mg/dL) 185 H (75-99) mg/dL Calcium (8.4-10.2) mg/dL Ferritin (10.0-291.0) ng/mL Lactate Dehydrogenase (313-618) U/L C-Reactive Protein (<10.0) mg/L Microbiology - Last 24 Hours (Table) 01/08/20 20:46 Blood Culture - Preliminary Blood No Growth after 96 hours 01/06/20 15:18 Blood Culture - Final Blood No Growth after 144 hours Assessment and Plan Plan: Assessment: Acute hypoxic respiratory failure Acute covid 19 pneumonitis Acute bacteremia secondary to Haemophilus influenza Underlying Haemophilus influenza pneumonia is not entirely ruled out. Acute kidney injury, improving Acute toxic metabolic encephalopathy secondary to above. Hypertension. Dyslipidemia. Altered mental status/encephalopathy as noted above felt to be toxic metabolic encephalopathy however I did recommend a neurological evaluation. Plan: Continue weaning FiO2, oxygenation seems to be improving, and we were able to wean down the FiO2, days at sister has been reviewed, we'll continue with IV dexamethasone, continue Rocephin for evidence of Haemophilus influenza bacteremia, although blood cultures have shown no growth, sputum culture has shown no growth, hemodynamically she remains stable, renal profile is improving, we'll obtain follow-up pro-calcitonin, we'll obtain follow-up inflammatory markers, follow-up chest x-ray in the morning, she is tolerating tube feedings, continue with nutritional support. Continue with therapeutic doses of Lovenox. Patient will remain in the intensive care unit I performed a history & physical examination of the patient and discussed their management with my nurse practitioner, Anna Brown. I reviewed the nurse practitioner's note and agree with the documented findings and plan of care. Lung sounds are positive for diminished breath sounds The findings and the impression was discussed with the patient. I attest to the documentation by the nurse practitioner. Time with Patient: Greater than 30
[2020-01-13] MEDS: SODIUM CHLORIDE 0.45% 1,000 ML IV SCH ×2 (12:15→21:09)
--- NOTE | 2020-01-13 15:08 | P.PN ---
Subjective 74-year-old female is admitted for hypoxia elevated troponins found to have positive Covid. Patient was transferred from outside hospital. Patient at baseline apparently is awake and alert. Patient is oriented 1 at this time. Patient did have fever and shortness of breath because of which patient was sent in here. Patient has elevated urine creatinine of 2.5 baseline is not available but patient apparently has chronic kidney disease. Does follow with a edge trimmer as an outpatient. Patient is found to have mildly elevated troponins of 0.2-3. Patient denied any chest pain although patient is extremely poor historian because of her confusion and hearing problems. His blood cultures from the other hospital came back positive for gram-positive cocci unsure whether it's clusters sore repairs. Patient will be started on vancomyci n infectious disease will be consulted may need tube be switched to daptomycin, considering her kidney function. 01/07/2020 Patient is presently on the eighth liters of oxygen although patient is not in respiratory distress whenever she doesn't wear this oxygen his sister AND saturation dropped down to 80%. Patient blood cultures are positive for coag is negative staph which is a contamination and medics will be discontinued. Repeat cultures are pending 01/08/2020 Patient progressively became dyspneic was transferred to intensive care unit patient was started on Rocephin and azithromycin for secondary bacterial pneumonia, IV recommended vancomycin as well. Patient had a central line don fariba.. Creatinine improved to 1.9. Patient is presently on Remdesivir date 3 along with Decadron, vitamin C, vitamin D and zinc 01/09/2020 Patient is bacteremic with Haemophilus influenza repeat blood cultures will be obtained and patient is on Rocephin patient is presently on 55 L of oxygen. Tawana roman has severe toxic encephalopathy with tremors. Neurology evaluated the patient. 01/10/2020 Patient's tremors and shaking he is better patient continues to be on Pracedex. Bicarbonate drip was discontinued patient has hyperchloremia and hyper next anemia because of which patient will be switched to half-normal saline. 01/11/2020 Patient is also receiving metoprolol apart from a clonidine because of her tachycardia and hypertension patient presently doesn't have an NG tube patient is presently nothing by mouth. Patient is presently on 60 L of oxygen via able. 01/12/2020 Patient still remains on high oxygen about the 55 L. Patient repeat cultures for last 3 days with negative had Haemophilus influenza. Remains on Decadron. Patient has toxic metabolic encephalopathy. #20 06/09/2019 Patient remains on 45 L of oxygen still having fever highly elevated the inflammatory markers. Patient had an NG tube now and is receiving Glucerna. Chest x-ray from today showing peripheral infiltrates there is a downward trend and d-dimer. Review of systems: Unable to obtain due to her clinical condition All inpatient medications were reviewed and appropriate changes in these medications as dictated in the interval history and assessment and plan. Objective - Vital Signs Vital signs: Vital Signs Temp 98.6 F 01/13/20 12:00 Pulse 86 01/13/20 13:00 Resp 26 H 01/13/20 13:00 BP 182/109 01/13/20 13:00 Pulse Ox 96 01/13/20 13:00 Intake & Output 01/12/20 01/13/20 01/13/20 18:59 06:59 18:59 Intake Total 1050 1140 1225 Output Total 950 645 290 Balance 100 495 935 Weight 84.3 kg 83.4 kg Intake: IV 1050 900 525 Potassium Chloride 20 meq 100 In Water For Injection 1 100ml.bag @ 50 mls/hr IVPB ONCE STA Rx#: [id number] Sodium Chloride 0.45% 1, 900 900 525 000 ml @ 75 mls/hr IV . [id number] [facility] Rx#:[id number] cefTRIAXone 2 gm In 50 Sodium Chloride 0.9% 50 ml @ 100 mls/hr IVPB Q24H [facility] Rx#:[id number] Intake, IV Titration 450 Amount ACETAMINOPHEN IV (For NPO 400 ) 1,000 mg In Empty Bag 1 bag @ 400 mls/hr IVPB ONCE STA Rx#:[id number] cefTRIAXone 2 gm In 50 Sodium Chloride 0.9% 50 ml @ 100 mls/hr IVPB Q24HR [facility] Rx#:[id number] Tube Feeding 150 160 Other 90 90 Output: Urine 950 645 290 Other: Voiding Method Indwelling Catheter Indwelling Catheter Indwelling Catheter - Exam PHYSICAL EXAMINATION: GENERAL: Drowsy arousable, not in any acute distress. Well developed, well nourished. Patient has nonessential tremor, possibility of myoclonus, much better. HEENT: Pupils are round and equally reacting to light. EOMI. No scleral icterus. No conjunctival pallor. Normocephalic, atraumatic. No pharyngeal erythema. No thyromegaly. CARDIOVASCULAR: S1 and S2 present. No murmurs, rubs, or gallops. PULMONARY: Bilateral crackles and rhonchi diffusely ABDOMEN: Soft, nontender, nondistended, normoactive bowel sounds. No palpable organomegaly. MUSCULOSKELETAL: No joint swelling or deformity. EXTREMITIES: No cyanosis, clubbing, or pedal edema. NEUROLOGICAL: Gross neurological examination did not reveal any focal deficits. SKIN: No rashes. Note: Because of [place] 19 isolation, some of the history and physical exam findings are indirect and obtained from nursing staff, and other physician examinations to avoid unnecessary contact with the patient. - Labs CBC & Chem 7: 01/13/20 04:15 01/13/20 04:15 Labs: Abnormal Lab Results - Last 24 Hours (Table) 01/12/20 01/13/20 01/13/20 Range/Units 18:01 01:04 04:15 WBC 26.2 H (3.8-10.6) k/uL RBC 3.67 L (3.80-5.40) m/uL Hgb 11.1 L (11.4-16.0) gm/dL Neutrophils # (Manual) 24.10 H (1.3-7.7) k/uL Monocytes # (Manual) 1.05 H (0-1.0) k/uL Chloride (98-107) mmol/L BUN (7-17) mg/dL Creatinine (0.52-1.04) mg/dL Glucose (74-99) mg/dL POC Glucose (mg/dL) 208 H 180 H (75-99) mg/dL Calcium (8.4-10.2) mg/dL Ferritin (10.0-291.0) ng/mL Lactate Dehydrogenase (313-618) U/L C-Reactive Protein (<10.0) mg/L Procalcitonin (0.02-0.09) ng/mL 01/13/20 01/13/20 01/13/20 Range/Units 04:15 04:15 05:55 WBC (3.8-10.6) k/uL RBC (3.80-5.40) m/uL Hgb (11.4-16.0) gm/dL Neutrophils # (Manual) (1.3-7.7) k/uL Monocytes # (Manual) (0-1.0) k/uL Chloride 112 H (98-107) mmol/L BUN 67 H (7-17) mg/dL Creatinine 1.35 H (0.52-1.04) mg/dL Glucose 162 H (74-99) mg/dL POC Glucose (mg/dL) 143 H (75-99) mg/dL Calcium 8.3 L (8.4-10.2) mg/dL Ferritin 3122.3 H (10.0-291.0) ng/mL Lactate Dehydrogenase 1778 H (313-618) U/L C-Reactive Protein 32.4 H (<10.0) mg/L Procalcitonin 0.17 H (0.02-0.09) ng/mL 01/13/20 01/13/20 Range/Units 06:48 12:02 WBC (3.8-10.6) k/uL RBC (3.80-5.40) m/uL Hgb (11.4-16.0) gm/dL Neutrophils # (Manual) (1.3-7.7) k/uL Monocytes # (Manual) (0-1.0) k/uL Chloride (98-107) mmol/L BUN (7-17) mg/dL Creatinine (0.52-1.04) mg/dL Glucose (74-99) mg/dL POC Glucose (mg/dL) 140 H 185 H (75-99) mg/dL Calcium (8.4-10.2) mg/dL Ferritin (10.0-291.0) ng/mL Lactate Dehydrogenase (313-618) U/L C-Reactive Protein (<10.0) mg/L Procalcitonin (0.02-0.09) ng/mL Microbiology - Last 24 Hours (Table) 01/08/20 20:46 Blood Culture - Preliminary Blood No Growth after 96 hours 01/06/20 15:18 Blood Culture - Final Blood No Growth after 144 hours Assessment and Plan Plan: -Acute hypoxic respiratory failure: secondary to covid 19 pneumonia. Patient was started on Decadron and completed Remdesivir patient is presently on a 55L of oxygen and, continue with NG tube feedings with Glucerna - secondary bacterial pneumonia , patient has bacteremia with Haemophilus influenza, patient is on Rocephin presently. Repeat blood cultures are negative - bacteremia: -Toxic encephalopathy, altered mental status: Secondary to infection, patient is undergoing EEG today -Elevated troponin secondary to infection and renal failure -Possible difficulty renal failure patient does have chronic kidney disease unable to stage chronic kidney disease is at baseline is not known. Patient will continued on IV fluids once serum creatinine can you to improve -Hypertension: Patient is presently on clonidine patch. -Hyperlipidemia Possible myoclonus: Secondary to encephalopathy, neurology evaluated the patient. -DVT prophylaxis with heparin
--- NOTE | 2020-01-13 16:44 | EEG ---
ELECTROENCEPHALOGRAM REPORT DATE OF SERVICE: 01/13/2020. CLINICAL HISTORY: This is a 75-year-old woman with a history of positive COVID-19 who has altered mental status. The video EEG was obtained to evaluate for seizure and epileptiform activity. RELEVANT MEDICATION: The patient is not on any antiepileptic drug. EEG TYPE: A modified 10-20 EEG per ACNS guidelines for positive COVID-19 patients was performed. DESCRIPTION: Wakefulness is only obtained. During wakefulness, the background consists of moderate voltage non-rhythmic 3 to 4 hertz delta activity over bilateral hemispheres intermixed with theta activity. There was no physiological stage II sleep seen. INTERICTAL AND ICTAL: None. ACTIVATION PROCEDURE: Photic stimulation and hyperventilation were not performed because of the patient's condition. CLINICAL INTERPRETATION: This is an abnormal routine EEG. The background slowing is suggestive of moderate to severe encephalopathy of unspecified etiology. There was no focal slowing, epileptiform discharges or seizures seen during this study. Clinical correlation is recommended. MICHELE / JACKSONN: [id number] / MTDD
--- NOTE | 2020-01-13 17:08 | P.PN ---
Subjective Progress Note Date: 01/13/20 Patient was seen at bedside and the per the patient nurse since the Precedex has been off patient has been having no tremors that she noticed. Otherwise she is intermittently awake. Objective - Vital Signs Vital signs: Vital Signs Temp 98.3 F 01/13/20 16:00 Pulse 84 01/13/20 17:00 Resp 24 01/13/20 17:00 BP 165/93 01/13/20 17:00 Pulse Ox 94 L 01/13/20 17:00 Intake & Output 01/12/20 01/13/20 01/13/20 18:59 06:59 18:59 Intake Total 1050 1140 1675 Output Total 950 645 450 Balance 686 623 7912 Weight 84.3 kg 83.4 kg Intake: IV 1050 900 825 Potassium Chloride 20 meq 100 In Water For Injection 1 100ml.bag @ 50 mls/hr IVPB ONCE [facility] Rx#: [id number] Sodium Chloride 0.45% 1, 900 900 825 000 ml @ 75 mls/hr IV . [id number] [facility] Rx#:[id number] cefTRIAXone 2 gm In 50 Sodium Chloride 0.9% 50 ml @ 100 mls/hr IVPB Q24H [facility] Rx#:[id number] Intake, IV Titration 450 Amount ACETAMINOPHEN IV (For NPO 400 ) 1,000 mg In Empty Bag 1 bag @ 400 mls/hr IVPB ONCE [facility] Rx#:[id number] cefTRIAXone 2 gm In 50 Sodium Chloride 0.9% 50 ml @ 100 mls/hr IVPB Q24HR [facility] Rx#:[id number] Tube Feeding 150 280 Other 90 120 Output: Urine 950 645 450 Other: Voiding Method Indwelling Catheter Indwelling Catheter Indwelling Catheter - Exam Appears to be in significant respiratory distress. She is coughing and lungs seems congested. Patient is awake, alert. She was attempting is mumbling and did not understand what she was saying. She is not following commands. Pupils are 3-4 mm bilaterally and reactive to light. She is tracking me throughout the room. No facial weakness noted bilaterally. Motor: Could not assess because of condition. She was able to lift left upper extremities She is has moderate increased tone of all extremities. No spontaneous movement or tremors seen which is improved compared to yesterday. Sensation: Grimaces faces with painful stimuli. - Labs CBC & Chem 7: 01/13/20 04:15 01/13/20 04:15 Labs: Abnormal Lab Results - Last 24 Hours (Table) 01/12/20 01/13/20 01/13/20 Range/Units 18:01 01:04 04:15 WBC 26.2 H (3.8-10.6) k/uL RBC 3.67 L (3.80-5.40) m/uL Hgb 11.1 L (11.4-16.0) gm/dL Neutrophils # (Manual) 24.10 H (1.3-7.7) k/uL Monocytes # (Manual) 1.05 H (0-1.0) k/uL Chloride (98-107) mmol/L BUN (7-17) mg/dL Creatinine (0.52-1.04) mg/dL Glucose (74-99) mg/dL POC Glucose (mg/dL) 208 H 180 H (75-99) mg/dL Calcium (8.4-10.2) mg/dL Ferritin (10.0-291.0) ng/mL Lactate Dehydrogenase (313-618) U/L C-Reactive Protein (<10.0) mg/L Procalcitonin (0.02-0.09) ng/mL 01/13/20 01/13/20 01/13/20 Range/Units 04:15 04:15 05:55 WBC (3.8-10.6) k/uL RBC (3.80-5.40) m/uL Hgb (11.4-16.0) gm/dL Neutrophils # (Manual) (1.3-7.7) k/uL Monocytes # (Manual) (0-1.0) k/uL Chloride 112 H (98-107) mmol/L BUN 67 H (7-17) mg/dL Creatinine 1.35 H (0.52-1.04) mg/dL Glucose 162 H (74-99) mg/dL POC Glucose (mg/dL) 143 H (75-99) mg/dL Calcium 8.3 L (8.4-10.2) mg/dL Ferritin 3122.3 H (10.0-291.0) ng/mL Lactate Dehydrogenase 1778 H (313-618) U/L C-Reactive Protein 32.4 H (<10.0) mg/L Procalcitonin 0.17 H (0.02-0.09) ng/mL 01/13/20 01/13/20 Range/Units 06:48 12:02 WBC (3.8-10.6) k/uL RBC (3.80-5.40) m/uL Hgb (11.4-16.0) gm/dL Neutrophils # (Manual) (1.3-7.7) k/uL Monocytes # (Manual) (0-1.0) k/uL Chloride (98-107) mmol/L BUN (7-17) mg/dL Creatinine (0.52-1.04) mg/dL Glucose (74-99) mg/dL POC Glucose (mg/dL) 140 H 185 H (75-99) mg/dL Calcium (8.4-10.2) mg/dL Ferritin (10.0-291.0) ng/mL Lactate Dehydrogenase (313-618) U/L C-Reactive Protein (<10.0) mg/L Procalcitonin (0.02-0.09) ng/mL Microbiology - Last 24 Hours (Table) 01/08/20 20:46 Blood Culture - Preliminary Blood No Growth after 96 hours 01/06/20 15:18 Blood Culture - Final Blood No Growth after 144 hours Assessment and Plan Assessment: * Altered mental status, likely due to toxic metabolic encephalopathy (TME). Patient has acute renal insufficiency, abnormal liver functions on top of severe bilateral pneumonia with oxygen/carbon dioxide mismatch resulting in TME. * Acute bilateral Covid pneumonia. Chest x-ray showed improving bilateral infiltrates. Patient has received Remdesvir on Decadron, vitamin C, vitamin D and zinc. * Bacteremia with Haemophilus influenza, on Ceftriaxone. * Acute renal insufficiency, improving--improving * Anemia--improving Plan: * Appears patient has toxic metabolic encephalopathy. Patient continues to be very tremulous due to multiple metabolic dysfunction. * Treatment of various metabolic conditions/medical conditions as per IM and critical care. * Infectious disease on the case. Patient has enough medical conditions to produce toxic metabolic encephalopathy. Lumbar puncture, only if recommended by ID. * CT head: Was reported as mild generalized atrophy. No acute intracranial abnormality seen. And fluid levels right sphenoid sinus at. Correlate for acute sinusitis. * Repeat CPK: 35 which is within normal limits. CRP is 32.4. * I ordered the EEG because of her altered mental status. I will not start the patient on antiepileptic drug unless there is at the form discharges or seizure seen during the EEG. * The plan was discussed with Primary team and ICU team. Will continue to follow. Alfred Leon MD Neuro-hospitalist Time with Patient: Less than 30
[2020-01-13 17:59] LABS: Glucose,Whole Blood 243 mg/dL (75-99)
[2020-01-13] MEDS ORDERED: ANIDULAFUNGIN 200 MG in SODIUM CHLORIDE 0.9% 200 ML IVPB ONE (21:30)
--- NOTE | 2020-01-13 22:30 | PN ---
PROGRESS NOTE DATE OF SERVICE: 01/13/2020 REASON FOR FOLLOWUP: Haemophilus influenzae bacteremia pneumonia. INTERVAL HISTORY: The patient is currently afebrile. The patient is hemodynamically stable, slightly more awake and alert. However, she was unable to provide any history. No vomiting or any diarrhea has been reported by the nursing staff. PHYSICAL EXAMINATION: Blood pressure is 146/94, pulse of 96, temperature of 98.3. She is 93% on 45% FiO2. General description is an elderly female intubated on the vent. RESPIRATORY SYSTEM: Unlabored breathing with decreased breath sounds at the base. No wheeze. HEART: S1, S2. Regular rate and rhythm. ABDOMEN: Soft. No tenderness. LABS: Hemoglobin is 11.9, white count of 26.2, BUN of 67, creatinine 1.37. DIAGNOSTIC IMPRESSION AND PLAN: Patient with Haemophilus influenzae pneumonia bacteremia. Source is likely pneumonia. The patient is covered with Rocephin 2 grams daily, noticed to have slight worsening of white count; could be steroid effect. Continue to monitor closely and watch for oropharyngeal candidiasis and see response. Continue with supportive care. MMODL / IJN: [id number] / BIN
[2020-01-14 00:08] LABS: Glucose,Whole Blood 220 mg/dL (75-99)
[2020-01-14] MEDS: INSULIN ASPART (NovoLOG) 100 UNIT/ML VIAL SQ SCH ×5 (00:22→23:54)
[2020-01-14 05:14] LABS: Albumin 2.5 g/dL (3.5-5.0); C Reactive Protein 25.5 mg/L (<10.0); Calcium 8.3 mg/dL (8.4-10.2); Potassium 4.1 mmol/L (3.5-5.1); Total Bilirubin 0.6 mg/dL (0.2-1.3)
[2020-01-14 05:17] LABS: D-Dimer 1.79 mg/L FEU (<0.60); HCT 36.2 % (34.0-46.0); HGB 11.3 gm/dL (11.4-16.0); MCH 29.6 pg (25.0-35.0); MCHC 31.3 g/dL (31.0-37.0); MCV 94.6 fL (80.0-100.0); Platelet Count 237 k/uL (150-450); RBC 3.83 m/uL (3.80-5.40); RDW 14.3 % (11.5-15.5); WBC 26.5 k/uL (3.8-10.6)
[2020-01-14 06:00] LABS: Glucose,Whole Blood 200 mg/dL (75-99)
[2020-01-14] MEDS: METOPROLOL TARTRATE 5 MG/5 ML VIAL IVP SCH ×4 (06:14→23:40)
[2020-01-14 06:41] LABS: Band Neutrophils % 1 %; Neutrophils % (M) 93 %; Nucleated Red Blood Cells 0 /100 WBC (0-0); Total Cells Counted 100
--- NOTE | 2020-01-14 07:05 | XR ---
EXAMINATION TYPE: XR chest 1V portable DATE OF EXAM: 01/14/2020 COMPARISON: 01/13/2020 HISTORY: SOB, Follow Up FINDINGS: Indwelling tubes and catheters are unchanged. Scattered airspace infiltrates remain unchanged. Stable appearance of the cardio-mediastinal structures at this time. Pleural effusion unchanged. IMPRESSION: 1. Stable portable chest. Clinical correlation and follow up until resolution is recommended.
[2020-01-14] MEDS: ALBUTEROL HFA INHALER INHALATION PRN ×4 (07:20→19:04)
[2020-01-14] MEDS: LIDOCAINE 5% PATCH TOPICAL SCH (08:14)
[2020-01-14] MEDS: CHOLECALCIFEROL 1,000 UNIT TAB PO SCH (08:32)
[2020-01-14] MEDS: ASPIRIN 81 MG PO SCH (08:32)
[2020-01-14] MEDS: ZINC SULFATE 220 MG CAP PO SCH (08:32)
[2020-01-14] MEDS: SENNOSIDES 8.6 MG TAB PO SCH ×2 (08:32→20:45)
[2020-01-14] MEDS: ENOXAPARIN 40 MG/0.4 ML SYRINGE SQ SCH ×2 (08:32→20:45)
[2020-01-14] MEDS: ASCORBIC ACID 500 MG TAB PO SCH ×2 (08:32→20:45)
[2020-01-14] MEDS: DEXAMETHASONE SOD PHOSPHATE 10 MG/ML 1 ML VIAL IV SCH (08:33)
[2020-01-14] MEDS: hydrALAZINE HCL 20 MG/ML 1 ML VIAL IVP PRN (09:58)
[2020-01-14] MEDS: SODIUM CHLORIDE 0.45% 1,000 ML IV SCH ×2 (10:15→11:46)
[2020-01-14 11:29] LABS: Glucose,Whole Blood 164 mg/dL (75-99)
[2020-01-14 11:32] LABS: Ferritin 2926.4 ng/mL (10.0-291.0)
--- NOTE | 2020-01-14 11:58 | P.PN ---
Subjective 74-year-old female is admitted for hypoxia elevated troponins found to have positive Covid. Patient was transferred from outside hospital. Patient at baseline apparently is awake and alert. Patient is oriented 1 at this time. Patient did have fever and shortness of breath because of which patient was sent in here. Patient has elevated urine creatinine of 2.5 baseline is not available but patient apparently has chronic kidney disease. Does follow with a wood polisher as an outpatient. Patient is found to have mildly elevated troponins of 0.2-3. Patient denied any chest pain although patient is extremely poor historian because of her confusion and hearing problems. His blood cultures from the other hospital came back positive for gram-positive cocci unsure whether it's clusters sore repairs. Patient will be started on vancomyci n infectious disease will be consulted may need tube be switched to daptomycin, considering her kidney function. 01/07/2020 Patient is presently on the eighth liters of oxygen although patient is not in respiratory distress whenever she doesn't wear this oxygen his sister AND saturation dropped down to 80%. Patient blood cultures are positive for coag is negative staph which is a contamination and medics will be discontinued. Repeat cultures are pending 01/08/2020 Patient progressively became dyspneic was transferred to intensive care unit patient was started on Rocephin and azithromycin for secondary bacterial pneumonia, IV recommended vancomycin as well. Patient had a central line don fariba.. Creatinine improved to 1.9. Patient is presently on Remdesivir date 3 along with Decadron, vitamin C, vitamin D and zinc 01/09/2020 Patient is bacteremic with Haemophilus influenza repeat blood cultures will be obtained and patient is on Rocephin patient is presently on 55 L of oxygen. Tawana roman has severe toxic encephalopathy with tremors. Neurology evaluated the patient. 01/10/2020 Patient's tremors and shaking he is better patient continues to be on Pracedex. Bicarbonate drip was discontinued patient has hyperchloremia and hyper next anemia because of which patient will be switched to half-normal saline. 01/11/2020 Patient is also receiving metoprolol apart from a clonidine because of her tachycardia and hypertension patient presently doesn't have an NG tube patient is presently nothing by mouth. Patient is presently on 60 L of oxygen via able. 01/12/2020 Patient still remains on high oxygen about the 55 L. Patient repeat cultures for last 3 days with negative had Haemophilus influenza. Remains on Decadron. Patient has toxic metabolic encephalopathy. 01/13/2020 Patient remains on 45 L of oxygen still having fever highly elevated the inflammatory markers. Patient had an NG tube now and is receiving Glucerna. Chest x-ray from today showing peripheral infiltrates there is a downward trend and d-dimer. 01/14/2020 No significant change in her respiratory status. Patient is afebrile since yesterday morning. Inflammatory markers trended down. Patient remains on 45 L of oxygen Review of systems: Unable to obtain due to her clinical condition All inpatient medications were reviewed and appropriate changes in these medications as dictated in the interval history and assessment and plan. Objective - Vital Signs Vital signs: Vital Signs Temp 98.2 F 01/14/20 08:00 Pulse 88 01/14/20 11:00 Resp 16 01/14/20 11:00 BP 161/128 01/14/20 11:00 Pulse Ox 94 L 01/14/20 11:00 Intake & Output 01/13/20 01/14/20 01/14/20 18:59 06:59 18:59 Intake Total 1780 1680 735 Output Total 520 530 160 Balance 1260 1150 575 Weight 84.1 kg Intake: IV 900 1100 375 Anidulafungin 200 mg In 200 Sodium Chloride 0.9% 200 ml @ 84 mls/hr IVPB ONCE ONE Rx#:[id number] Sodium Chloride 0.45% 1, 900 900 375 000 ml @ 75 mls/hr IV . [id number] [facility] Rx#:[id number] Intake, IV Titration 450 100 Amount ACETAMINOPHEN IV (For NPO 400 ) 1,000 mg In Empty Bag 1 bag @ 400 mls/hr IVPB ONCE STA Rx#:[id number] cefTRIAXone 2 gm In 50 100 Sodium Chloride 0.9% 50 ml @ 100 mls/hr IVPB Q24HR [facility] Rx#:[id number] Tube Feeding 310 460 200 Other 120 120 60 Output: Urine 520 530 160 Other: Voiding Method Indwelling Catheter Indwelling Catheter Indwelling Catheter # Bowel Movements 0 - Exam PHYSICAL EXAMINATION: GENERAL: Drowsy arousable, not in any acute distress. Well developed, well nourished. Patient has nonessential tremor, possibility of myoclonus, much better. HEENT: Pupils are round and equally reacting to light. EOMI. No scleral icterus. No conjunctival pallor. Normocephalic, atraumatic. No pharyngeal erythema. No thyromegaly. CARDIOVASCULAR: S1 and S2 present. No murmurs, rubs, or gallops. PULMONARY: Bilateral crackles and rhonchi diffusely ABDOMEN: Soft, nontender, nondistended, normoactive bowel sounds. No palpable organomegaly. MUSCULOSKELETAL: No joint swelling or deformity. EXTREMITIES: No cyanosis, clubbing, or pedal edema. NEUROLOGICAL: Gross neurological examination did not reveal any focal deficits. SKIN: No rashes. Note: Because of [facility] [place], some of the history and physical exam findings are indirect and obtained from nursing staff, and other physician examinations to avoid unnecessary contact with the patient. - Labs CBC & Chem 7: 01/14/20 04:06 01/14/20 04:06 Labs: Abnormal Lab Results - Last 24 Hours (Table) 01/13/20 01/13/20 01/13/20 Range/Units 04:15 12:02 17:58 WBC (3.8-10.6) k/uL Hgb (11.4-16.0) gm/dL Neutrophils # (Manual) (1.3-7.7) k/uL Lymphocytes # (Manual) (1.0-4.8) k/uL D-Dimer (<0.60) mg/L FEU Chloride (98-107) mmol/L BUN (7-17) mg/dL Creatinine (0.52-1.04) mg/dL Glucose (74-99) mg/dL POC Glucose (mg/dL) 185 H 243 H (75-99) mg/dL Calcium (8.4-10.2) mg/dL Ferritin (10.0-291.0) ng/mL Lactate Dehydrogenase (313-618) U/L C-Reactive Protein (<10.0) mg/L Total Protein (6.3-8.2) g/dL Albumin (3.5-5.0) g/dL Procalcitonin 0.17 H (0.02-0.09) ng/mL 01/14/20 01/14/20 01/14/20 Range/Units 00:06 04:06 04:06 WBC 26.5 H (3.8-10.6) k/uL Hgb 11.3 L (11.4-16.0) gm/dL Neutrophils # (Manual) 24.90 H (1.3-7.7) k/uL Lymphocytes # (Manual) 0.80 L (1.0-4.8) k/uL D-Dimer 1.79 H (<0.60) mg/L FEU Chloride (98-107) mmol/L BUN (7-17) mg/dL Creatinine (0.52-1.04) mg/dL Glucose (74-99) mg/dL POC Glucose (mg/dL) 220 H (75-99) mg/dL Calcium (8.4-10.2) mg/dL Ferritin (10.0-291.0) ng/mL Lactate Dehydrogenase (313-618) U/L C-Reactive Protein (<10.0) mg/L Total Protein (6.3-8.2) g/dL Albumin (3.5-5.0) g/dL Procalcitonin (0.02-0.09) ng/mL 01/14/20 01/14/20 01/14/20 Range/Units 04:06 05:59 11:28 WBC (3.8-10.6) k/uL Hgb (11.4-16.0) gm/dL Neutrophils # (Manual) (1.3-7.7) k/uL Lymphocytes # (Manual) (1.0-4.8) k/uL D-Dimer (<0.60) mg/L FEU Chloride 110 H (98-107) mmol/L BUN 68 H (7-17) mg/dL Creatinine 1.41 H (0.52-1.04) mg/dL Glucose 173 H (74-99) mg/dL POC Glucose (mg/dL) 200 H 164 H (75-99) mg/dL Calcium 8.3 L (8.4-10.2) mg/dL Ferritin 2926.4 H (10.0-291.0) ng/mL Lactate Dehydrogenase 1533 H (313-618) U/L C-Reactive Protein 25.5 H (<10.0) mg/L Total Protein 5.0 L (6.3-8.2) g/dL Albumin 2.5 L (3.5-5.0) g/dL Procalcitonin (0.02-0.09) ng/mL Microbiology - Last 24 Hours (Table) 01/08/20 20:46 Blood Culture - Preliminary Blood No Growth after 120 hours Assessment and Plan Plan: -Acute hypoxic respiratory failure: secondary to covid 19 pneumonia. Patient was started on Decadron and completed Remdesivir patient is presently on a 55L of oxygen and, continue with NG tube feedings with Glucerna. Patient was started on antifungals cussing that she has fever on antibiotics. Patient has worsening leukocytosis as well and patient is being followed by infectious disease - secondary bacterial pneumonia , patient has bacteremia with Haemophilus influenza, patient is on Rocephin presently. Repeat blood cultures are negative - bacteremia: -Toxic encephalopathy, altered mental status: Secondary to infection, EKG did not show any seizure activity patient still has some tremors -Elevated troponin secondary to infection and renal failure -Possible difficulty renal failure patient does have chronic kidney disease unable to stage chronic kidney disease is at baseline is not known. Patient will continued on IV fluids once serum creatinine can you to improve -Hypertension: Patient is presently on clonidine patch. -Hyperlipidemia Possible myoclonus: Secondary to encephalopathy, neurology evaluated the patient. -DVT prophylaxis with heparin
--- NOTE | 2020-01-14 15:08 | P.PN ---
Subjective Progress Note Date: 01/14/20 Patient was seen and she was sitting on on the chair. Per the patient nurse and she stated the patient's condition is improving. She is a bit more responsive today compared to yesterday. Patient the upon seeing her she was interactive tell me her name. Objective - Vital Signs Vital signs: Vital Signs Temp 98.8 F 01/14/20 12:00 Pulse 99 01/14/20 14:00 Resp 29 H 01/14/20 14:00 BP 156/93 01/14/20 14:00 Pulse Ox 93 L 01/14/20 14:00 Intake & Output 01/13/20 01/14/20 01/14/20 18:59 06:59 18:59 Intake Total 1780 1680 1110 Output Total 520 530 260 Balance 1260 1150 850 Weight 84.1 kg 84.1 kg Intake: IV 900 1100 600 Anidulafungin 200 mg In 200 Sodium Chloride 0.9% 200 ml @ 84 mls/hr IVPB ONCE ONE Rx#:[id number] Sodium Chloride 0.45% 1, 900 900 600 000 ml @ 75 mls/hr IV . [id number] [facility] Rx#:[id number] Intake, IV Titration 450 100 Amount ACETAMINOPHEN IV (For NPO 400 ) 1,000 mg In Empty Bag 1 bag @ 400 mls/hr IVPB ONCE [facility] Rx#:[id number] cefTRIAXone 2 gm In 50 100 Sodium Chloride 0.9% 50 ml @ 100 mls/hr IVPB Q24HR [facility] Rx#:[id number] Tube Feeding 310 460 320 Other 120 120 90 Output: Urine 520 530 260 Other: Voiding Method Indwelling Catheter Indwelling Catheter Indwelling Catheter # Bowel Movements 0 - Exam Appears to be in significant respiratory distress. She is coughing and lungs seems congested. Patient is awake, alert, oriented to self. She was able to follow few simple commands such as showing a thumbs up on both hands. She was able to left bilateral upper extremity above gravity briefly on command. Pupils are 3-4 mm bilaterally and reactive to light. She is tracking me throu ghout the room. No facial weakness noted bilaterally. Motor: Could not assess because of condition. She was able to lift left upper extremities above gravity. She is has mild increased tone of all extremities. No spontaneous movement or tremors seen. Sensation: Grimaces faces with painful stimuli. Reflexes are 1 throughout. Edema of all extremities predominately uppers - Labs CBC & Chem 7: 01/14/20 04:06 01/14/20 04:06 Labs: Abnormal Lab Results - Last 24 Hours (Table) 01/13/20 01/14/20 01/14/20 Range/Units 17:58 00:06 04:06 WBC 26.5 H (3.8-10.6) k/uL Hgb 11.3 L (11.4-16.0) gm/dL Neutrophils # (Manual) 24.90 H (1.3-7.7) k/uL Lymphocytes # (Manual) 0.80 L (1.0-4.8) k/uL D-Dimer (<0.60) mg/L FEU Chloride (98-107) mmol/L BUN (7-17) mg/dL Creatinine (0.52-1.04) mg/dL Glucose (74-99) mg/dL POC Glucose (mg/dL) 243 H 220 H (75-99) mg/dL Calcium (8.4-10.2) mg/dL Ferritin (10.0-291.0) ng/mL Lactate Dehydrogenase (313-618) U/L C-Reactive Protein (<10.0) mg/L Total Protein (6.3-8.2) g/dL Albumin (3.5-5.0) g/dL 01/14/20 01/14/20 01/14/20 Range/Units 04:06 04:06 05:59 WBC (3.8-10.6) k/uL Hgb (11.4-16.0) gm/dL Neutrophils # (Manual) (1.3-7.7) k/uL Lymphocytes # (Manual) (1.0-4.8) k/uL D-Dimer 1.79 H (<0.60) mg/L FEU Chloride 110 H (98-107) mmol/L BUN 68 H (7-17) mg/dL Creatinine 1.41 H (0.52-1.04) mg/dL Glucose 173 H (74-99) mg/dL POC Glucose (mg/dL) 200 H (75-99) mg/dL Calcium 8.3 L (8.4-10.2) mg/dL Ferritin 2926.4 H (10.0-291.0) ng/mL Lactate Dehydrogenase 1533 H (313-618) U/L C-Reactive Protein 25.5 H (<10.0) mg/L Total Protein 5.0 L (6.3-8.2) g/dL Albumin 2.5 L (3.5-5.0) g/dL 01/14/20 Range/Units 11:28 WBC (3.8-10.6) k/uL Hgb (11.4-16.0) gm/dL Neutrophils # (Manual) (1.3-7.7) k/uL Lymphocytes # (Manual) (1.0-4.8) k/uL D-Dimer (<0.60) mg/L FEU Chloride (98-107) mmol/L BUN (7-17) mg/dL Creatinine (0.52-1.04) mg/dL Glucose (74-99) mg/dL POC Glucose (mg/dL) 164 H (75-99) mg/dL Calcium (8.4-10.2) mg/dL Ferritin (10.0-291.0) ng/mL Lactate Dehydrogenase (313-618) U/L C-Reactive Protein (<10.0) mg/L Total Protein (6.3-8.2) g/dL Albumin (3.5-5.0) g/dL Microbiology - Last 24 Hours (Table) 01/08/20 20:46 Blood Culture - Preliminary Blood No Growth after 120 hours Assessment and Plan Assessment: * Altered mental status, likely due to toxic metabolic encephalopathy (TME). Patient has acute renal insufficiency, abnormal liver functions on top of severe bilateral pneumonia with oxygen/carbon dioxide mismatch resulting in TME--improving. * Acute bilateral Covid pneumonia. Chest x-ray showed improving bilateral infiltrates. Patient has received Remdesvir on Decadron, vitamin C, vitamin D and zinc. * Bacteremia with Haemophilus influenza, on Ceftriaxone. * Acute renal insufficiency, improving--improving * Anemia--improving Plan: * EEG on 01/13/2020 (modified according ACNS guideline for COVID-19 postive): Moderate to severe encephalopathy of nonspecific etiology. The there is no focal slowing, apical pump discharges or seizure during the study. * Appears patient has toxic metabolic encephalopathy. * Treatment of various metabolic conditions/medical conditions as per IM and critical care. * Infectious disease on the case. Patient has enough medical conditions to produce toxic metabolic encephalopathy. Lumbar puncture, only if recommended by ID. * CT head: Was reported as mild generalized atrophy. No acute intracranial abnormality seen. And fluid levels right sphenoid sinus at. Correlate for acute sinusitis. * Repeat CPK: 35 which is within normal limits. CRP is 32.4. * The plan was discussed with Primary team and ICU team. Will continue to follow. Alfred Leon MD Neuro-hospitalist Time with Patient: Less than 30
--- NOTE | 2020-01-14 15:59 | P.PN ---
Subjective Progress Note Date: 01/14/20 Principal diagnosis: Acute hypoxic respiratory failure secondary to covid 19 pneumonitis. A 74-year-old female patient, very poor historian with what seems to be advanced dementia in addition to history of hypertension and hyperlipidemia was coming in for shortness of breath and hypoxemia and this has been confirmed to be related to COVID 19 infection/pneumonia. The patient was transferred from an outside hospital. The patient is unable to give any further history. Review of her chest x-ray shows that the patient is a peripheral patchy pulmonary interstitial airspace disease infiltrates bilaterally and the patient is currently on 8 L of oxygen by nasal cannula to maintain a saturation above 90%. Her current pulse ox is around 93%. The white cell count is at 10.6. The patient also has a renal failure and the chronicity of the renal failure is not established. Her previous creatinine is unknown to me at this point in time. She also has a mild component of anion gap metabolic acidosis with a anion gap of 14 and a serum bicarb level of 17. LDH is 1213 and the patient is a CRP of 301. Also, the patient had a troponin leak with troponin levels being at 0.1 0.1 and 0.2 respectively. Pro calcitonin level was elevated at 1.54. She is afebrile. The blood cultures from the outside hospital showing gram-positive cocci and is not sure if it was in clusters overnight. The patient was started on vancomycin as an empiric antibiotic coverage. In terms of Covid 19 infection, the patient was started on a combination of Decadron and Remdesivir The patient is seen today 01/07/2020 in follow-up on selective care unit. She does have advanced dementia and is a poor historian. She is currently resting fairly comfortably in bed. She is on 8 L high flow nasal cannula to maintain O2 saturations in the 90s. She's afebrile. Hemodynamically stable. White count 27.1. Hemoglobin 12.2. Lymphocytes 0.81. Sodium 139. Potassium 4.2. Bicarb 14. Creatinine 2.06. AST 102. ALT 47. Troponin 0.266. C-reactive protein 192. Pro calcitonin 1.45. She remains on Decadron, vitamin C, vitamin D, zinc. She is receiving day #2 of Remdesivir. On 01/08/2020, the patient has been transferred to the intensive care unit. The patient developed progressive dyspnea tachypnea and hypoxemia overnight and the patient had to be transferred to the intensive care unit. At this point in time, the patient is confused, lethargic, at times agitated, unable to follow any commands and unable to hold a conversation. She gets quite restless when stimulated. She is sensing critical condition on 4 extremities. No neck stiffness. She is moving all 4 extremities and the patient has no focal neurological deficits. No neck stiffness. The patient was noted to have a possible culture an outside hospital and the patient was given vancomycin in addition to Zithromax and Rocephin per IDs recommendation. Nevertheless, based on our cultures, the results are still negative for now and there is no clear evidence of any bacterial infection at this point in time. Noted the Pro calcitonin level was elevated. At the same time, the patient has acute Covid 19 related to pneumonia bilateral. The patient is on high flow oxygen at 15 L with an FiO2 of 73% to maintain a saturation above 90%. A triple lumen catheter was established in the left subclavian. The chest x-ray post line insertion showed no evidence of any pneumothorax. Nevertheless, there was dense bilateral pulmonary infiltrates consistent with coronavirus Covid 19 related pneumonia. The patient is obviously tachypneic. She is having respiratory distress even on high flow oxygen. No use of accessory muscles of breathing. The blood work from today shows a troponin of 0.23. Vancomycin level is at 19.9. The patient a component of non-anion gap metabolic acidosis from yesterday. The patient is a bicarb drip which is running at 100 mL an hour. Serum bicarb is up to 18. Creatinine is down to 1.9, somewhat improved compared to yesterday. At the same time, the patient is being treated with a combination of Decadron, vitamin C, vitamin D, zinc. She is receiving day #3 of Remdesivir. On 01/09/2020, the patient seems to be less agitated as the patient was started on Precedex which is currently running at 0.25 mg per KG per minute. The patient seems to much more comfortable at this point in time. She remains on high flow oxygen 55 L with an FiO2 of 85% with a pulse ox of 96%. The patient's chest x-ray still showing diffuse breath and pulmonary infiltrates. Note that the patient was infected with Covid 19 and she had a Covid 19 related pneumonia in addition to septic shock secondary to Haemophilus influenza bacteremia. Noted the patient's blood culture came back positive for Haemophilus influenza. The patient is currently on IV Rocephin 2 g every 24 hours in regards to this septicemia. The patient is also being treated for coronavirus Covid 19 pneumonia with a combination of Decadron and Remdesivir and the patient also received a unit of, convalescent plasma. The patient has a ferritin level of 3188. The patient has a LDH of 1147 and the CRP is down to 122. The patient is afebrile. Renal function and for the creatinine is down to 1.7. Serum bicarbs of 28 and the patient was being given D5 with 3 A of bicarb at the rate of 100 mL an hour. She is afebrile. She is still moans and at times becomes restless and tremulous. Nevertheless, there is no seizure activity noted and the patient is not able to follow single commands. Which are diffuse. There is peripheral infiltrate in the right and the left. There is somewhat improvement in pulmonary infiltration. Is a left sided subclavian triple-lumen catheter in place. The Pro calcitonin level is down to 1.45. 01/10/2020, the patient remains on Precedex and seems to be quite comfortable at a dose of 0.35 mcg per KG per hour. The patient is also on high flow oxygen at 55 L with an FiO2 of 80%. She is able to maintain a saturation above 90%. The chest x-ray is showing persistent airspace disease throughout the left lung which remains unchanged compared to yesterday. There is also scattered infiltration within the periphery of the right lung which probably have improved on today's evaluation. Note that the patient also had a positive blood culture with Haemophilus influenza. Accordingly, the patient was treated with IV Rocephin 2 g every 24 hours. The Pro calcitonin level is on the decline is currently down to 0.42. Hemodynamically stable and the patient is not requiring any pressors and she is receiving normal saline today to 75 mL an hour. The patient blood work showed a sodium of 147, BUN of 65 with a creatinine of 1.5, and the patient has an LDH of 1789, CRP of 73, and a d-dimer today's at 3.79. 01/11/2020, I'm seeing the patient for a follow-up. Her condition essentially unchanged compared to yesterday. The patient is still requiring Precedex to control her agitation and restlessness pH she remains on Precedex at a dose of 0.4 g per KG per minute. This is able to control her condition quite well. Meanwhile, the patient continues to remain hypoxic respiratory failure. She has required high flow oxygen at 55 L and FiO2 of 60%. The patient is on half- normal saline at the rate of 75 mL an hour. Urine output in the order of 70 mL an hour. Input output balance is positive for 21 mL over the past 24 hours. The patient's renal function with a creatinine of 1.47 which is improved compared to yesterday. Sodium level remains unchanged at 147. Chest x-ray findings are essentially stable with diffuse breath and pulmonary infiltrates consistent with Covid 19 related pneumonia. The patient remains on IV Decadron. The patient remains on IV Rocephin regarding her Haemophilus influenza septicemia. Hemodynamically stable. Maintaining her on blood pressure. She remains on Lovenox 40 mg subcu every 12 hours. Reevaluated today on 01/12/20, remains in the ICU, remains on airvo at 60 L/m flow, and 58% FiO2. O2 sats is 96%. Patient was admitted on 01/04, transferred to the ICU on 01/06. Receiving small dose of Precedex because of extreme a gitation on presentation, patient is on Lovenox Q at 40 mg subcu twice a day, patient is also being treated with Rocephin for presumptive Haemophilus influenza pneumonia. Patient has not been eating, hence I will recommend a nasogastric tube placement and enteral feeding. She will be seen by neurology on consultation as the patient seems to be quite confused. And extremely stiff and rigid. Her CT of the brain showed mild generalized atrophy and air fluid levels in the right sphenoid sinus. Likely secondary to acute sinusitis. Chest x-ray shows bilateral peripheral extensive infiltrates consistent with Covid 19 pneumonitis. On 01/13/2020 patient seen in follow-up in the intensive care unit, she is resting quietly in bed, appears to be in no acute distress, remains on high flow oxygen per Airvo at 45 L/m, with FiO2 of 45%. Her pulse ox currently is 96-98%. Breathing appears to be comfortable, no respiratory distress, she did have a fever spike this morning with a temp of 101.1F, dynamically stable, she receiving 0.45 at 75 ML per hour, NG tube was inserted yesterday for nutritional support and she has Glucerna tube feedings infusing at 20 ML per hour, with a goal of 40. Did water flushes, patient remains confused, however she is not agitated. Denies any significant distress, today's chest x-ray has been reviewed showing patchy and confluent peripheral infiltrates. And worsening airspace disease at the left base. Patient completed her Remdesivir course on 01/10/2020. She received 1 unit of convalescent plasma, is receiving IV Decadron, 6 mg daily, she is on Lovenox at 40 mg twice daily, and her last d- dimer on 01/12/2020 was downtrending and down to 2.89. Her labs have been reviewed today, her white blood cell count is 26.2, hemoglobin is 11.1, sodium is 143, potassium is 4.1, chloride is 112, CO2 is 25, BUN is 67, creatinine is 1.35, renal profile is actually improving, ferritin is 3122, LDH has trended some, and is up to 1778, however her CRP is trending down, and is down to 32.4. Her last Pro calcitonin was downtrending, and was at 0.282 days ago. She is on any medical coverage in the form of Rocephin, ID service is following Patient was reevaluated today on 01/14/20, remains in the intensive care unit, patient is on airvo, requiring FiO2 of 45%, and 40 L flow. Patient feels weak and congested, she has some cough, however unable to clear any secretions. Patient finished her course of remdisivir, she received 1 unit of convalescent plasma, she is presently on Rocephin and Eraxis. Chest x-ray continues to show bilateral infiltrates. White count today is 26.5 hemoglobin is 11.3, d-dimer is 1.79. Renal profile showed a BUN of 68 creatinine 1.41, relatively unchanged over the last few days Objective - Vital Signs Vital signs: Vital Signs Temp 98.8 F 01/14/20 12:00 Pulse 99 01/14/20 14:00 Resp 29 H 01/14/20 14:00 BP 156/93 01/14/20 14:00 Pulse Ox 94 L 01/14/20 15:36 Intake & Output 01/13/20 01/14/20 01/14/20 18:59 06:59 18:59 Intake Total 1780 1680 1110 Output Total 520 530 260 Balance 1260 1150 850 Weight 84.1 kg 84.1 kg Intake: IV 900 1100 600 Anidulafungin 200 mg In 200 Sodium Chloride 0.9% 200 ml @ 84 mls/hr IVPB ONCE ONE Rx#:[id number] Sodium Chloride 0.45% 1, 900 900 600 000 ml @ 75 mls/hr IV . [id number] [facility] Rx#:[id number] Intake, IV Titration 450 100 Amount ACETAMINOPHEN IV (For NPO 400 ) 1,000 mg In Empty Bag 1 bag @ 400 mls/hr IVPB ONCE STA Rx#:[id number] cefTRIAXone 2 gm In 50 100 Sodium Chloride 0.9% 50 ml @ 100 mls/hr IVPB Q24HR [facility] Rx#:[id number] Tube Feeding 310 460 320 Other 120 120 90 Output: Urine 520 530 260 Other: Voiding Method Indwelling Catheter Indwelling Catheter Indwelling Catheter # Bowel Movements 0 - Exam GENERAL: This is a 74-year-old female patient on high flow oxygen, confused, does not follow any instructions, nonverbal. Head exam was generally normal. There was no scleral icterus or corneal arcus. Mucous membranes were moist. HEENT: Pupils are round and equally reacting to light. EOMI. No scleral icterus. No conjunctival pallor. Normocephalic, atraumatic. No pharyngeal erythema. No thyromegaly. The patient subclavian triple lumen catheter inserted in left subclavian vein. CARDIOVASCULAR: S1 and S2 present. No murmurs, rubs, or gallops. PULMONARY: Symmetrical chest expansion, rhonchi noted bilaterally. ABDOMEN: Soft, nontender, nondistended, normoactive bowel sounds. No palpable organomegaly. MUSCULOSKELETAL: No joint swelling or deformity. EXTREMITIES: No cyanosis, clubbing, or pedal edema. NEUROLOGICAL: Confused, does not follow any instructions. But awake. SKIN: No rashes. - Labs CBC & Chem 7: 01/14/20 04:06 01/14/20 04:06 Labs: Abnormal Lab Results - Last 24 Hours (Table) 01/13/20 01/14/20 01/14/20 Range/Units 17:58 00:06 04:06 WBC 26.5 H (3.8-10.6) k/uL Hgb 11.3 L (11.4-16.0) gm/dL Neutrophils # (Manual) 24.90 H (1.3-7.7) k/uL Lymphocytes # (Manual) 0.80 L (1.0-4.8) k/uL D-Dimer (<0.60) mg/L FEU Chloride (98-107) mmol/L BUN (7-17) mg/dL Creatinine (0.52-1.04) mg/dL Glucose (74-99) mg/dL POC Glucose (mg/dL) 243 H 220 H (75-99) mg/dL Calcium (8.4-10.2) mg/dL Ferritin (10.0-291.0) ng/mL Lactate Dehydrogenase (313-618) U/L C-Reactive Protein (<10.0) mg/L Total Protein (6.3-8.2) g/dL Albumin (3.5-5.0) g/dL 01/14/20 01/14/20 01/14/20 Range/Units 04:06 04:06 05:59 WBC (3.8-10.6) k/uL Hgb (11.4-16.0) gm/dL Neutrophils # (Manual) (1.3-7.7) k/uL Lymphocytes # (Manual) (1.0-4.8) k/uL D-Dimer 1.79 H (<0.60) mg/L FEU Chloride 110 H (98-107) mmol/L BUN 68 H (7-17) mg/dL Creatinine 1.41 H (0.52-1.04) mg/dL Glucose 173 H (74-99) mg/dL POC Glucose (mg/dL) 200 H (75-99) mg/dL Calcium 8.3 L (8.4-10.2) mg/dL Ferritin 2926.4 H (10.0-291.0) ng/mL Lactate Dehydrogenase 1533 H (313-618) U/L C-Reactive Protein 25.5 H (<10.0) mg/L Total Protein 5.0 L (6.3-8.2) g/dL Albumin 2.5 L (3.5-5.0) g/dL 01/14/20 Range/Units 11:28 WBC (3.8-10.6) k/uL Hgb (11.4-16.0) gm/dL Neutrophils # (Manual) (1.3-7.7) k/uL Lymphocytes # (Manual) (1.0-4.8) k/uL D-Dimer (<0.60) mg/L FEU Chloride (98-107) mmol/L BUN (7-17) mg/dL Creatinine (0.52-1.04) mg/dL Glucose (74-99) mg/dL POC Glucose (mg/dL) 164 H (75-99) mg/dL Calcium (8.4-10.2) mg/dL Ferritin (10.0-291.0) ng/mL Lactate Dehydrogenase (313-618) U/L C-Reactive Protein (<10.0) mg/L Total Protein (6.3-8.2) g/dL Albumin (3.5-5.0) g/dL Microbiology - Last 24 Hours (Table) 01/08/20 20:46 Blood Culture - Preliminary Blood No Growth after 120 hours Assessment and Plan Assessment: Impression: Acute hypoxic respiratory failure Acute covid 19 pneumonitis Acute bacteremia secondary to Haemophilus influenza Underlying Haemophilus influenza pneumonia is not entirely ruled out. Acute kidney injury Acute toxic metabolic encephalopathy secondary to above. Hypertension. Dyslipidemia. Altered mental status/encephalopathy as noted above felt to be toxic metabolic encephalopathy however I did recommend a neurological evaluation. Recommendation: Continue high flow oxygen and high FiO2. Titrate accordingly. Continue Decadron. Continue remdesivir Continue antibiotics presently on Rocephin for Haemophilus influenza sepsis and elevated pro calcitonin. Continue Lovenox 40 mg twice a day. Continue GI and DVT prophylaxis. Neurological consultation to assess altered mental status. Prognosis remains guarded, Patient will be transferred today out of the ICU to a medical floor, however these to be closely monitored. If condition deteriorates, will bring back to ICU. Time with Patient: Less than 30
[2020-01-14 17:41] LABS: Glucose,Whole Blood 232 mg/dL (75-99)
[2020-01-14] MEDS: ANIDULAFUNGIN 100 MG in SODIUM CHLORIDE 0.9% 100 ML IVPB SCH (21:54)
[2020-01-14 23:56] LABS: Glucose,Whole Blood 184 mg/dL (75-99)
--- NOTE | 2020-01-14 23:57 | PN ---
PROGRESS NOTE DATE OF SERVICE: 01/14/2020 REASON FOR FOLLOWUP: Haemophilus influenzae bacteremia pneumonia. INTERVAL HISTORY: Patient is currently afebrile. The patient is hemodynamically stable. The patient remains to be lethargic. . The patient has been tolerating her tube feeds and no diarrhea or any change reported by nursing staff. The patient herself is not able to provide any history. PHYSICAL EXAMINATION: Blood pressure is 149/100 with a pulse of 90, temperature 98.2. She is 93% on 40% FiO2. General description is an elderly female lying in bed in no distress. Respiratory system: Unlabored breathing with decreased breath sounds at bases. Heart S1, S2. Regular rate and rhythm. Extremities: No edema of the feet. LABS: Hemoglobin 11.8, white count 6.5. BUN of 68 creatinine 1.41. DIAGNOSTIC IMPRESSION AND PLAN: 1. Patient with Haemophilus influenzae bacteremia source likely pneumonia. Repeat blood culture has been negative. Patient is covered with Rocephin to continue. 2. Patient with elevated white count. Concern of possible oropharyngeal candidiasis. Patient is covered with Eraxis to continue and we will monitor clinical course closely. MMODL / IJN: [id number] / BIN
[2020-01-15] MEDS: SODIUM CHLORIDE 0.45% 1,000 ML IV SCH (02:58)
[2020-01-15 04:57] LABS: HCT 33.7 % (34.0-46.0); HGB 10.8 gm/dL (11.4-16.0); MCHC 31.9 g/dL (31.0-37.0); Mean Platelet Volume 9.5; Platelet Count 157 k/uL (150-450); RBC 3.59 m/uL (3.80-5.40); RDW 14.3 % (11.5-15.5); WBC 22.1 k/uL (3.8-10.6)
[2020-01-15 05:07] LABS: D-Dimer 1.6 mg/L FEU (<0.60)
[2020-01-15 05:41] LABS: Albumin 2.4 g/dL (3.5-5.0); C Reactive Protein 17.8 mg/L (<10.0); Potassium 4.3 mmol/L (3.5-5.1); Total Bilirubin 0.5 mg/dL (0.2-1.3); Total Protein 4.8 g/dL (6.3-8.2)
[2020-01-15] MEDS: METOPROLOL TARTRATE 5 MG/5 ML VIAL IVP SCH ×3 (05:44→18:08)
[2020-01-15 05:53] LABS: Glucose,Whole Blood 145 mg/dL (75-99)
[2020-01-15 06:02] LABS: Band Neutrophils % 1 %; Hypersegmented Neutrophils Present; Lymphocytes # (M) 0.66 k/uL (1.0-4.8); Monocytes # (M) 0.88 k/uL (0-1.0); Neutrophils % (M) 92 %; Nucleated Red Blood Cells 0 /100 WBC (0-0); Total Cells Counted 100
[2020-01-15] MEDS: INSULIN ASPART (NovoLOG) 100 UNIT/ML VIAL SQ SCH ×3 (06:08→18:08)
--- NOTE | 2020-01-15 07:17 | XR ---
EXAMINATION TYPE: XR chest 1V portable DATE OF EXAM: 01/15/2020 HISTORY: Shortness of breath. COMPARISON: 01/14/2020 TECHNIQUE: Single view of the chest is submitted. FINDINGS: NG tube and central venous line are unchanged in position. Persistent perihilar and upper lobe infiltrates essentially unchanged from prior study. Small left-si ded pleural effusion noted. The heart is stable. Hilar and mediastinal structures are within normal limits. Degenerative changes are seen of the dorsal spine. IMPRESSION: 1. Stable chest with bilateral infiltrates and small left-sided pleural effusion.
[2020-01-15] MEDS: ALBUTEROL HFA INHALER INHALATION PRN ×2 (08:29→15:46)
[2020-01-15] MEDS: ASCORBIC ACID 500 MG TAB PO SCH ×2 (08:49→19:59)
[2020-01-15] MEDS: ENOXAPARIN 40 MG/0.4 ML SYRINGE SQ SCH ×2 (08:49→19:59)
[2020-01-15] MEDS: DEXAMETHASONE SOD PHOSPHATE 10 MG/ML 1 ML VIAL IV SCH (08:50)
[2020-01-15] MEDS: CHOLECALCIFEROL 1,000 UNIT TAB PO SCH (08:50)
[2020-01-15] MEDS: ASPIRIN 81 MG PO SCH (08:50)
[2020-01-15] MEDS: LIDOCAINE 5% PATCH TOPICAL SCH (08:51)
[2020-01-15] MEDS: SENNOSIDES 8.6 MG TAB PO SCH ×2 (08:51→19:59)
[2020-01-15] MEDS: ZINC SULFATE 220 MG CAP PO SCH (08:51)
[2020-01-15 10:17] LABS: Ferritin 3230.1 ng/mL (10.0-291.0)
[2020-01-15] MEDS: hydrALAZINE HCL 20 MG/ML 1 ML VIAL IVP PRN (10:33)
[2020-01-15 12:12] LABS: Glucose,Whole Blood 182 mg/dL (75-99)
--- NOTE | 2020-01-15 15:44 | P.PN ---
Subjective Progress Note Date: 01/15/20 Principal diagnosis: Acute hypoxic respiratory failure secondary to covid 19 pneumonitis. A 74-year-old female patient, very poor historian with what seems to be advanced dementia in addition to history of hypertension and hyperlipidemia was coming in for shortness of breath and hypoxemia and this has been confirmed to be related to COVID 19 infection/pneumonia. The patient was transferred from an outside hospital. The patient is unable to give any further history. Review of her chest x-ray shows that the patient is a peripheral patchy pulmonary interstitial airspace disease infiltrates bilaterally and the patient is currently on 8 L of oxygen by nasal cannula to maintain a saturation above 90%. Her current pulse ox is around 93%. The white cell count is at 10.6. The patient also has a renal failure and the chronicity of the renal failure is not established. Her previous creatinine is unknown to me at this point in time. She also has a mild component of anion gap metabolic acidosis with a anion gap of 14 and a serum bicarb level of 17. LDH is 1213 and the patient is a CRP of 301. Also, the patient had a troponin leak with troponin levels being at 0.1 0.1 and 0.2 respectively. Pro calcitonin level was elevated at 1.54. She is afebrile. The blood cultures from the outside hospital showing gram-positive cocci and is not sure if it was in clusters overnight. The patient was started on vancomycin as an empiric antibiotic coverage. In terms of Covid 19 infection, the patient was started on a combination of Decadron and Remdesivir The patient is seen today 01/07/2020 in follow-up on selective care unit. She does have advanced dementia and is a poor historian. She is currently resting fairly comfortably in bed. She is on 8 L high flow nasal cannula to maintain O2 saturations in the 90s. She's afebrile. Hemodynamically stable. White count 27.1. Hemoglobin 12.2. Lymphocytes 0.81. Sodium 139. Potassium 4.2. Bicarb 14. Creatinine 2.06. AST 102. ALT 47. Troponin 0.266. C-reactive protein 192. Pro calcitonin 1.45. She remains on Decadron, vitamin C, vitamin D, zinc. She is receiving day #2 of Remdesivir. On 01/08/2020, the patient has been transferred to the intensive care unit. The patient developed progressive dyspnea tachypnea and hypoxemia overnight and the patient had to be transferred to the intensive care unit. At this point in time, the patient is confused, lethargic, at times agitated, unable to follow any commands and unable to hold a conversation. She gets quite restless when stimulated. She is sensing critical condition on 4 extremities. No neck stiffness. She is moving all 4 extremities and the patient has no focal neurological deficits. No neck stiffness. The patient was noted to have a possible culture an outside hospital and the patient was given vancomycin in addition to Zithromax and Rocephin per IDs recommendation. Nevertheless, based on our cultures, the results are still negative for now and there is no clear evidence of any bacterial infection at this point in time. Noted the Pro calcitonin level was elevated. At the same time, the patient has acute Covid 19 related to pneumonia bilateral. The patient is on high flow oxygen at 15 L with an FiO2 of 73% to maintain a saturation above 90%. A triple lumen catheter was established in the left subclavian. The chest x-ray post line insertion showed no evidence of any pneumothorax. Nevertheless, there was dense bilateral pulmonary infiltrates consistent with coronavirus Covid 19 related pneumonia. The patient is obviously tachypneic. She is having respiratory distress even on high flow oxygen. No use of accessory muscles of breathing. The blood work from today shows a troponin of 0.23. Vancomycin level is at 19.9. The patient a component of non-anion gap metabolic acidosis from yesterday. The patient is a bicarb drip which is running at 100 mL an hour. Serum bicarb is up to 18. Creatinine is down to 1.9, somewhat improved compared to yesterday. At the same time, the patient is being treated with a combination of Decadron, vitamin C, vitamin D, zinc. She is receiving day #3 of Remdesivir. On 01/09/2020, the patient seems to be less agitated as the patient was started on Precedex which is currently running at 0.25 mg per KG per minute. The patient seems to much more comfortable at this point in time. She remains on high flow oxygen 55 L with an FiO2 of 85% with a pulse ox of 96%. The patient's chest x-ray still showing diffuse breath and pulmonary infiltrates. Note that the patient was infected with Covid 19 and she had a Covid 19 related pneumonia in addition to septic shock secondary to Haemophilus influenza bacteremia. Noted the patient's blood culture came back positive for Haemophilus influenza. The patient is currently on IV Rocephin 2 g every 24 hours in regards to this septicemia. The patient is also being treated for coronavirus Covid 19 pneumonia with a combination of Decadron and Remdesivir and the patient also received a unit of, convalescent plasma. The patient has a ferritin level of 3188. The patient has a LDH of 1147 and the CRP is down to 122. The patient is afebrile. Renal function and for the creatinine is down to 1.7. Serum bicarbs of 28 and the patient was being given D5 with 3 A of bicarb at the rate of 100 mL an hour. She is afebrile. She is still moans and at times becomes restless and tremulous. Nevertheless, there is no seizure activity noted and the patient is not able to follow single commands. Which are diffuse. There is peripheral infiltrate in the right and the left. There is somewhat improvement in pulmonary infiltration. Is a left sided subclavian triple-lumen catheter in place. The Pro calcitonin level is down to 1.45. 01/10/2020, the patient remains on Precedex and seems to be quite comfortable at a dose of 0.35 mcg per KG per hour. The patient is also on high flow oxygen at 55 L with an FiO2 of 80%. She is able to maintain a saturation above 90%. The chest x-ray is showing persistent airspace disease throughout the left lung which remains unchanged compared to yesterday. There is also scattered infiltration within the periphery of the right lung which probably have improved on today's evaluation. Note that the patient also had a positive blood culture with Haemophilus influenza. Accordingly, the patient was treated with IV Rocephin 2 g every 24 hours. The Pro calcitonin level is on the decline is currently down to 0.42. Hemodynamically stable and the patient is not requiring any pressors and she is receiving normal saline today to 75 mL an hour. The patient blood work showed a sodium of 147, BUN of 65 with a creatinine of 1.5, and the patient has an LDH of 1789, CRP of 73, and a d-dimer today's at 3.79. 01/11/2020, I'm seeing the patient for a follow-up. Her condition essentially unchanged compared to yesterday. The patient is still requiring Precedex to control her agitation and restlessness pH she remains on Precedex at a dose of 0.4 g per KG per minute. This is able to control her condition quite well. Meanwhile, the patient continues to remain hypoxic respiratory failure. She has required high flow oxygen at 55 L and FiO2 of 60%. The patient is on half- normal saline at the rate of 75 mL an hour. Urine output in the order of 70 mL an hour. Input output balance is positive for 21 mL over the past 24 hours. The patient's renal function with a creatinine of 1.47 which is improved compared to yesterday. Sodium level remains unchanged at 147. Chest x-ray findings are essentially stable with diffuse breath and pulmonary infiltrates consistent with Covid 19 related pneumonia. The patient remains on IV Decadron. The patient remains on IV Rocephin regarding her Haemophilus influenza septicemia. Hemodynamically stable. Maintaining her on blood pressure. She remains on Lovenox 40 mg subcu every 12 hours. Reevaluated today on 01/12/20, remains in the ICU, remains on airvo at 60 L/m flow, and 58% FiO2. O2 sats is 96%. Patient was admitted on 01/04, transferred to the ICU on 01/06. Receiving small dose of Precedex because of extreme a gitation on presentation, patient is on Lovenox Q at 40 mg subcu twice a day, patient is also being treated with Rocephin for presumptive Haemophilus influenza pneumonia. Patient has not been eating, hence I will recommend a nasogastric tube placement and enteral feeding. She will be seen by neurology on consultation as the patient seems to be quite confused. And extremely stiff and rigid. Her CT of the brain showed mild generalized atrophy and air fluid levels in the right sphenoid sinus. Likely secondary to acute sinusitis. Chest x-ray shows bilateral peripheral extensive infiltrates consistent with Covid 19 pneumonitis. On 01/13/2020 patient seen in follow-up in the intensive care unit, she is resting quietly in bed, appears to be in no acute distress, remains on high flow oxygen per Airvo at 45 L/m, with FiO2 of 45%. Her pulse ox currently is 96-98%. Breathing appears to be comfortable, no respiratory distress, she did have a fever spike this morning with a temp of 101.1F, dynamically stable, she receiving 0.45 at 75 ML per hour, NG tube was inserted yesterday for nutritional support and she has Glucerna tube feedings infusing at 20 ML per hour, with a goal of 40. Did water flushes, patient remains confused, however she is not agitated. Denies any significant distress, today's chest x-ray has been reviewed showing patchy and confluent peripheral infiltrates. And worsening airspace disease at the left base. Patient completed her Remdesivir course on 01/10/2020. She received 1 unit of convalescent plasma, is receiving IV Decadron, 6 mg daily, she is on Lovenox at 40 mg twice daily, and her last d- dimer on 01/12/2020 was downtrending and down to 2.89. Her labs have been reviewed today, her white blood cell count is 26.2, hemoglobin is 11.1, sodium is 143, potassium is 4.1, chloride is 112, CO2 is 25, BUN is 67, creatinine is 1.35, renal profile is actually improving, ferritin is 3122, LDH has trended some, and is up to 1778, however her CRP is trending down, and is down to 32.4. Her last Pro calcitonin was downtrending, and was at 0.282 days ago. She is on any medical coverage in the form of Rocephin, ID service is following Patient was reevaluated today on 01/14/20, remains in the intensive care unit, patient is on airvo, requiring FiO2 of 45%, and 40 L flow. Patient feels weak and congested, she has some cough, however unable to clear any secretions. Patient finished her course of remdisivir, she received 1 unit of convalescent plasma, she is presently on Rocephin and Eraxis. Chest x-ray continues to show bilateral infiltrates. White count today is 26.5 hemoglobin is 11.3, d-dimer is 1.79. Renal profile showed a BUN of 68 creatinine 1.41, relatively unchanged over the last few days Reevaluated today on 01/15/20, patient remains in the intensive care unit, she is still on high flow oxygen, basically she is on airvo flow is 40 L/m, and FiO2 is 53%, O2 saturation is only 93%. Patient continues to feel weak, short of lorna ath, she has intermittent cough, but unable to clear secretions. Continues to have leukocytosis with WBC count of 22.1 hemoglobin is 10.8. D-dimer is 1.60. Electrodes are normal BUN is 72 creatinine is 1.45. LDH is 1718 C-reactive protein is 17.8. Ferritin remains elevated at 3230. Chest x-ray continues to show bilateral infiltrates and small left-sided pleural effusion. Not much of a change is noted on her chest x-ray. Patient remains on the Covid 19 cocktail, she is also on Rocephin and on Eraxis. Objective - Vital Signs Vital signs: Vital Signs Temp 99.1 F 01/15/20 08:00 Pulse 79 01/15/20 08:00 Resp 24 01/15/20 08:00 BP 148/84 01/15/20 08:00 Pulse Ox 93 L 01/15/20 11:39 Intake & Output 01/14/20 01/15/20 01/15/20 18:59 06:59 18:59 Intake Total 1480 1630 Output Total 385 380 Balance 1095 1250 Weight 84.1 kg Intake: IV 900 1000 Anidulafungin 100 mg In 100 Sodium Chloride 0.9% 100 ml @ 84 mls/hr IVPB HS ANDREA Rx#:[id number] Sodium Chloride 0.45% 1, 900 900 000 ml @ 75 mls/hr IV . [id number] ANDREA Rx#:[id number] Intake, IV Titration 100 Amount cefTRIAXone 2 gm In 100 Sodium Chloride 0.9% 50 ml @ 100 mls/hr IVPB Q24HR ANDREA Rx#:[id number] Tube Feeding 360 480 Other 120 150 Output: Urine 385 380 Other: Voiding Method Indwelling Catheter Indwelling Catheter Indwelling Catheter # Bowel Movements 0 0 - Exam GENERAL: This is a 74-year-old female patient on high flow oxygen, confused, does not follow any instructions, nonverbal. Head exam was generally normal. There was no scleral icterus or corneal arcus. Mucous membranes were moist. HEENT: Pupils are round and equally reacting to light. EOMI. No scleral icterus. No conjunctival pallor. Normocephalic, atraumatic. No pharyngeal erythema. No th yromegaly. The patient subclavian triple lumen catheter inserted in left subclavian vein. CARDIOVASCULAR: S1 and S2 present. No murmurs, rubs, or gallops. PULMONARY: Symmetrical chest expansion, rhonchi noted bilaterally. ABDOMEN: Soft, nontender, nondistended, normoactive bowel sounds. No palpable organomegaly. MUSCULOSKELETAL: No joint swelling or deformity. EXTREMITIES: No cyanosis, clubbing, or pedal edema. NEUROLOGICAL: Confused, does not follow any instructions. But awake. SKIN: No rashes. - Labs CBC & Chem 7: 01/15/20 03:57 01/15/20 03:57 Labs: Abnormal Lab Results - Last 24 Hours (Table) 01/14/20 01/14/20 01/15/20 Range/Units 17:40 23:44 03:57 WBC 22.1 H (3.8-10.6) k/uL RBC 3.59 L (3.80-5.40) m/uL Hgb 10.8 L (11.4-16.0) gm/dL Hct 33.7 L (34.0-46.0) % Neutrophils # (Manual) 20.50 H (1.3-7.7) k/uL Lymphocytes # (Manual) 0.66 L (1.0-4.8) k/uL D-Dimer (<0.60) mg/L FEU Chloride (98-107) mmol/L BUN (7-17) mg/dL Creatinine (0.52-1.04) mg/dL Glucose (74-99) mg/dL POC Glucose (mg/dL) 232 H 184 H (75-99) mg/dL Calcium (8.4-10.2) mg/dL Ferritin (10.0-291.0) ng/mL AST (14-36) U/L Lactate Dehydrogenase (313-618) U/L C-Reactive Protein (<10.0) mg/L Total Protein (6.3-8.2) g/dL Albumin (3.5-5.0) g/dL 01/15/20 01/15/20 01/15/20 Range/Units 03:57 03:57 05:52 WBC (3.8-10.6) k/uL RBC (3.80-5.40) m/uL Hgb (11.4-16.0) gm/dL Hct (34.0-46.0) % Neutrophils # (Manual) (1.3-7.7) k/uL Lymphocytes # (Manual) (1.0-4.8) k/uL D-Dimer 1.60 H (<0.60) mg/L FEU Chloride 110 H (98-107) mmol/L BUN 72 H (7-17) mg/dL Creatinine 1.45 H (0.52-1.04) mg/dL Glucose 123 H (74-99) mg/dL POC Glucose (mg/dL) 145 H (75-99) mg/dL Calcium 8.0 L (8.4-10.2) mg/dL Ferritin 3230.1 H (10.0-291.0) ng/mL AST 42 H (14-36) U/L Lactate Dehydrogenase 1718 H (313-618) U/L C-Reactive Protein 17.8 H (<10.0) mg/L Total Protein 4.8 L (6.3-8.2) g/dL Albumin 2.4 L (3.5-5.0) g/dL 01/15/20 Range/Units 12:10 WBC (3.8-10.6) k/uL RBC (3.80-5.40) m/uL Hgb (11.4-16.0) gm/dL Hct (34.0-46.0) % Neutrophils # (Manual) (1.3-7.7) k/uL Lymphocytes # (Manual) (1.0-4.8) k/uL D-Dimer (<0.60) mg/L FEU Chloride (98-107) mmol/L BUN (7-17) mg/dL Creatinine (0.52-1.04) mg/dL Glucose (74-99) mg/dL POC Glucose (mg/dL) 182 H (75-99) mg/dL Calcium (8.4-10.2) mg/dL Ferritin (10.0-291.0) ng/mL AST (14-36) U/L Lactate Dehydrogenase (313-618) U/L C-Reactive Protein (<10.0) mg/L Total Protein (6.3-8.2) g/dL Albumin (3.5-5.0) g/dL Microbiology - Last 24 Hours (Table) 01/08/20 20:46 Blood Culture - Final Blood No Growth after 144 hours Assessment and Plan Assessment: Impression: Acute hypoxic respiratory failure Acute covid 19 pneumonitis Acute bacteremia secondary to Haemophilus influenza Underlying Haemophilus influenza pneumonia is not entirely ruled out. Acute kidney injury Acute toxic metabolic encephalopathy secondary to above. Hypertension. Dyslipidemia. Altered mental status/encephalopathy as noted above felt to be toxic metabolic encephalopathy however I did recommend a neurological evaluation. Recommendation: Continue high flow oxygen and high FiO2. Titrate accordingly maintain O2 saturation above 90%. Continue Decadron. Finished her course of remdesivir Continue antibiotics presently on Rocephin for Haemophilus influenza sepsis and elevated pro calcitonin. Continue Lovenox 40 mg twice a day. Continue GI and DVT prophylaxis. Prognosis remains guarded, We'll continue to follow in the ICU, if condition worsens, may have to be intubated and placed on mechanical ventilation. Time with Patient: Less than 30
[2020-01-15 17:40] LABS: Glucose,Whole Blood 224 mg/dL (75-99)
[2020-01-15] MEDS: INSULIN DETEMIR (LEVEMIR) 100 UNIT/ML SYR SQ SCH (19:59)
[2020-01-15] MEDS: ANIDULAFUNGIN 100 MG in SODIUM CHLORIDE 0.9% 100 ML IVPB SCH (19:59)
--- NOTE | 2020-01-15 23:04 | P.PN ---
Subjective Progress Note Date: 01/15/20 Principal diagnosis: Acute hypoxic respiratory failure: secondary to covid 19 pneumonia 74-year-old female is admitted for hypoxia elevated troponins found to have positive Covid. Patient was transferred from outside hospital. Patient at baseline apparently is awake and alert. Patient is oriented 1 at this time. Patient did have fever and shortness of breath because of which patient was sent in here. Patient has elevated urine creatinine of 2.5 baseline is not available but patient apparently has chronic kidney disease. Does follow with a deputy bailiff as an outpatient. Patient is found to have mildly elevated troponins of 0.2-3. Patient denied any chest pain although patient is extremely poor historian because of her confusion and hearing problems. His blood cultures from the other hospital came back positive for gram-positive cocci unsure whether it's clusters sore repairs. Patient will be started on vancomycin infectious disease will be consulted may need tube be switched to daptomycin, considering her kidney function. 01/07/2020 Patient is presently on the eighth liters of oxygen although patient is not in respiratory distress whenever she doesn't wear this oxygen his sister AND saturation dropped down to 80%. Patient blood cultures are positive for coag is negative staph which is a contamination and medics will be discontinued. Repeat cultures are pending 01/08/2020 Patient progressively became dyspneic was transferred to intensive care unit patient was started on Rocephin and azithromycin for secondary bacterial pneumonia, IV recommended vancomycin as well. Patient had a central line placed.. Creatinine improved to 1.9. Patient is presently on Remdesivir date 3 along with Decadron, vitamin C, vitamin D and zinc 01/09/2020 Patient is bacteremic with Haemophilus influenza repeat blood cultures will be obtained and patient is on Rocephin patient is presently on 55 L of oxygen. Patient has severe toxic encephalopathy with tremors. Neurology evaluated the patient. 01/10/2020 Patient's tremors and shaking he is better patient continues to be on Pracedex. Bicarbonate drip was discontinued patient has hyperchloremia and hyper next anemia because of which patient will be switched to half-normal saline. 01/11/2020 Patient is also receiving metoprolol apart from a clonidine because of her tachycardia and hypertension patient presently doesn't have an NG tube patient is presently nothing by mouth. Patient is presently on 60 L of oxygen via able. 01/12/2020 Patient still remains on high oxygen about the 55 L. Patient repeat cultures for last 3 days with negative had Haemophilus influenza. Remains on Decadron. Patient has toxic metabolic encephalopathy. 01/13/2020 Patient remains on 45 L of oxygen still having fever highly elevated the inflammatory markers. Patient had an NG tube now and is receiving Glucerna. Chest x-ray from today showing peripheral infiltrates there is a downward trend and d-dimer. 01/14/2020 No significant change in her respiratory status. Patient is afebrile since yesterday morning. Inflammatory markers trended down. Patient remains on 45 L of oxygen 01/15/2020 Patient is awake alert. Currently on high flow oxygen on airvo. Complaints of generalized weakness and shortness of breath and cough. Chest x-ray showed stable chest with bilateral infiltrates and small left-sided pleural effusion. Patient is being continued on antibiotics in the form of ceftriaxone and ant ifungal Eraxis. Blood cultures grew haemophilus influenza and repeat cultures have been negative so far. Laboratory data showed WBC 22.1, hemoglobin 10.8 and platelets 157 absolute lymphocyte count 0.66 BUN 72 and creatinine 1.45 Elevated inflammatory markers. Review of systems: Unable to obtain due to her clinical condition All inpatient medications were reviewed and appropriate changes in these medications as dictated in the interval history and assessment and plan. Objective - Vital Signs Vital signs: Vital Signs Temp 99.1 F 01/15/20 08:00 Pulse 79 01/15/20 08:00 Resp 24 01/15/20 08:00 BP 148/84 01/15/20 08:00 Pulse Ox 93 L 01/15/20 11:39 Intake & Output 01/14/20 01/15/20 01/15/20 18:59 06:59 18:59 Intake Total 1480 1630 Output Total 385 380 Balance 1095 1250 Weight 84.1 kg Intake: IV 900 1000 Anidulafungin 100 mg In 100 Sodium Chloride 0.9% 100 ml @ 84 mls/hr IVPB HS [facility] Rx#:[id number] Sodium Chloride 0.45% 1, 900 900 000 ml @ 75 mls/hr IV . [id number] [facility] Rx#:[id number] Intake, IV Titration 100 Amount cefTRIAXone 2 gm In 100 Sodium Chloride 0.9% 50 ml @ 100 mls/hr IVPB Q24HR [facility] Rx#:[id number] Tube Feeding 360 480 Other 120 150 Output: Urine 385 380 Other: Voiding Method Indwelling Catheter Indwelling Catheter Indwelling Catheter # Bowel Movements 0 0 - Exam PHYSICAL EXAMINATION: GENERAL: Drowsy arousable, not in any acute distress. Well developed, well nourished. Patient has nonessential tremor, possibility of myoclonus, much better. HEENT: Pupils are round and equally reacting to light. EOMI. No scleral icterus. No conjunctival pallor. Normocephalic, atraumatic. No pharyngeal erythema. No thyromegaly. CARDIOVASCULAR: S1 and S2 present. No murmurs, rubs, or gallops. PULMONARY: Bilateral crackles and rhonchi diffusely ABDOMEN: Soft, nontender, nondistended, normoactive bowel sounds. No palpable organomegaly. MUSCULOSKELETAL: No joint swelling or deformity. EXTREMITIES: No cyanosis, clubbing, or pedal edema. NEUROLOGICAL: Gross neurological examination did not reveal any focal deficits. SKIN: No rashes. Note: Because of [place] [id number] isolation, some of the history and physical exam findings are indirect and obtained from nursing staff, and other physician examinations to avoid unnecessary contact with the patient. - Labs CBC & Chem 7: 01/15/20 03:57 01/15/20 03:57 Labs: Abnormal Lab Results - Last 24 Hours (Table) 01/14/20 01/14/20 01/15/20 Range/Units 17:40 23:44 03:57 WBC 22.1 H (3.8-10.6) k/uL RBC 3.59 L (3.80-5.40) m/uL Hgb 10.8 L (11.4-16.0) gm/dL Hct 33.7 L (34.0-46.0) % Neutrophils # (Manual) 20.50 H (1.3-7.7) k/uL Lymphocytes # (Manual) 0.66 L (1.0-4.8) k/uL D-Dimer (<0.60) mg/L FEU Chloride (98-107) mmol/L BUN (7-17) mg/dL Creatinine (0.52-1.04) mg/dL Glucose (74-99) mg/dL POC Glucose (mg/dL) 232 H 184 H (75-99) mg/dL Calcium (8.4-10.2) mg/dL Ferritin (10.0-291.0) ng/mL AST (14-36) U/L Lactate Dehydrogenase (313-618) U/L C-Reactive Protein (<10.0) mg/L Total Protein (6.3-8.2) g/dL Albumin (3.5-5.0) g/dL 01/15/20 01/15/20 01/15/20 Range/Units 03:57 03:57 05:52 WBC (3.8-10.6) k/uL RBC (3.80-5.40) m/uL Hgb (11.4-16.0) gm/dL Hct (34.0-46.0) % Neutrophils # (Manual) (1.3-7.7) k/uL Lymphocytes # (Manual) (1.0-4.8) k/uL D-Dimer 1.60 H (<0.60) mg/L FEU Chloride 110 H (98-107) mmol/L BUN 72 H (7-17) mg/dL Creatinine 1.45 H (0.52-1.04) mg/dL Glucose 123 H (74-99) mg/dL POC Glucose (mg/dL) 145 H (75-99) mg/dL Calcium 8.0 L (8.4-10.2) mg/dL Ferritin 3230.1 H (10.0-291.0) ng/mL AST 42 H (14-36) U/L Lactate Dehydrogenase 1718 H (313-618) U/L C-Reactive Protein 17.8 H (<10.0) mg/L Total Protein 4.8 L (6.3-8.2) g/dL Albumin 2.4 L (3.5-5.0) g/dL 01/15/20 Range/Units 12:10 WBC (3.8-10.6) k/uL RBC (3.80-5.40) m/uL Hgb (11.4-16.0) gm/dL Hct (34.0-46.0) % Neutrophils # (Manual) (1.3-7.7) k/uL Lymphocytes # (Manual) (1.0-4.8) k/uL D-Dimer (<0.60) mg/L FEU Chloride (98-107) mmol/L BUN (7-17) mg/dL Creatinine (0.52-1.04) mg/dL Glucose (74-99) mg/dL POC Glucose (mg/dL) 182 H (75-99) mg/dL Calcium (8.4-10.2) mg/dL Ferritin (10.0-291.0) ng/mL AST (14-36) U/L Lactate Dehydrogenase (313-618) U/L C-Reactive Protein (<10.0) mg/L Total Protein (6.3-8.2) g/dL Albumin (3.5-5.0) g/dL Microbiology - Last 24 Hours (Table) 01/08/20 20:46 Blood Culture - Final Blood No Growth after 144 hours Assessment and Plan Assessment: -Acute hypoxic respiratory failure: secondary to covid 19 pneumonia. Patient was started on Decadron and completed Remdesivir patient is presently on a 45L of oxygen via Airvo. continue with NG tube feedings with Glucerna. Patient was started on antifungals cussing that she has fever on antibiotics. Patient has worsening leukocytosis as well and patient is being followed by infectious disease - secondary bacterial pneumonia , patient has bacteremia with Haemophilus influenza, patient is on Rocephin presently. Repeat blood cultures are negative - bacteremia: -Toxic encephalopathy, altered mental status: Secondary to infection, EKG did not show any seizure activity patient still has some tremors -Elevated troponin secondary to infection and renal failure -Possible Acute renal failure patient does have chronic kidney disease unable to stage chronic kidney disease is at baseline is not known. Patient will continued on IV fluids once serum creatinine can you to improve -Hypertension: Patient is presently on clonidine patch. -Hyperlipidemia Possible myoclonus: Secondary to encephalopathy, neurology evaluated the patient. -DVT prophylaxis with heparin Time with Patient: Greater than 30
[2020-01-15 23:56] LABS: Glucose,Whole Blood 149 mg/dL (75-99)
[2020-01-16] MEDS: METOPROLOL TARTRATE 5 MG/5 ML VIAL IVP SCH ×6 (00:17→23:38)
[2020-01-16] MEDS: INSULIN ASPART (NovoLOG) 100 UNIT/ML VIAL SQ SCH ×5 (00:17→23:41)
[2020-01-16] MEDS: SODIUM CHLORIDE 0.45% 1,000 ML IV SCH ×2 (02:25→15:26)
--- NOTE | 2020-01-16 05:42 | PN ---
PROGRESS NOTE DATE OF SERVICE: 01/15/2020 REASON FOR FOLLOWUP: Haemophilus influenzae bacteremia and pneumonia. INTERVAL HISTORY: The patient is currently afebrile. The patient has been breathing comfortably. She is hemodynamically stable. Mentation remains to be an issue. No vomiting or any diarrhea reported by the nursing staff. The patient was unable to provide any history. PHYSICAL EXAMINATION: Blood pressure 156/79 with a pulse of 78, temperature 98.2. She is 95% on 40% FiO2. General description is an elderly female lying in bed in no distress. RESPIRATORY SYSTEM: Unlabored breathing, decreased breath sounds in the bases. No wheeze. HEART: S1, S2. Regular rate and rhythm. ABDOMEN: Soft. No tenderness. LABS: Hemoglobin is 10.8, white count 22.1, BUN of 72, creatinine is 1.45. DIAGNOSTIC IMPRESSION AND PLAN: Patient with Haemophilus influenzae bacteremia source likely pneumonia. Currently covered with Rocephin to continue. With the patient with elevated white count, possible oropharyngeal candidiasis responding to the Eraxis as white count showing a downward trend. To continue to monitor clinical course closely. MMODL / IJN: [id number] /
[2020-01-16 06:12] LABS: Glucose,Whole Blood 121 mg/dL (75-99)
[2020-01-16 07:04] LABS: Albumin 2.1 g/dL (3.5-5.0); C Reactive Protein 10.4 mg/L (<10.0); Calcium 7.7 mg/dL (8.4-10.2); Potassium 4.5 mmol/L (3.5-5.1); Total Bilirubin 0.4 mg/dL (0.2-1.3); Total Protein 4.4 g/dL (6.3-8.2)
[2020-01-16 07:08] LABS: D-Dimer 1.67 mg/L FEU (<0.60)
[2020-01-16 08:03] LABS: HCT 29.7 % (34.0-46.0); MCHC 31.2 g/dL (31.0-37.0); MCV 96.1 fL (80.0-100.0); Mean Platelet Volume 10.5; Platelet Count 107 k/uL (150-450); RBC 3.09 m/uL (3.80-5.40); RDW 14.4 % (11.5-15.5); WBC 16.8 k/uL (3.8-10.6)
[2020-01-16 08:04] LABS: HGB 9.3 gm/dL (11.4-16.0)
[2020-01-16] MEDS: LIDOCAINE 5% PATCH TOPICAL SCH (08:43)
--- NOTE | 2020-01-16 08:49 | XR ---
EXAMINATION TYPE: XR chest 1V portable DATE OF EXAM: 01/16/2020 COMPARISON: 01/15/2020 INDICATION: ICU management, previous abnormal chest TECHNIQUE: Single frontal view of the chest is obtained. FINDINGS: The heart size is normal. The pulmonary vasculature is normal. Infiltrate is scattered through the left midlung. Findings appear stable. Nasogastric tube transverses the thorax. Left central venous catheter tip is in the superior vena cav a region. There may be some improvement of a right lung infiltrate. IMPRESSION: 1. Scattered bilateral lung infiltrates greater on the left. Findings appear stable over the interval . 2. Lines and catheters discussed above.
[2020-01-16] MEDS: SENNOSIDES 8.6 MG TAB PO SCH ×2 (09:20→20:48)
[2020-01-16] MEDS: ASPIRIN 81 MG PO SCH (09:21)
[2020-01-16] MEDS: ENOXAPARIN 40 MG/0.4 ML SYRINGE SQ SCH ×2 (09:21→20:45)
[2020-01-16] MEDS: methylPREDNISolone SOD SUCCI 125 MG/2 ML VIAL IV SCH ×4 (09:21→23:38)
[2020-01-16] MEDS: ASCORBIC ACID 500 MG TAB PO SCH ×2 (09:21→20:45)
[2020-01-16] MEDS: ZINC SULFATE 220 MG CAP PO SCH (09:21)
[2020-01-16] MEDS: CHOLECALCIFEROL 1,000 UNIT TAB PO SCH (09:21)
[2020-01-16 09:24] LABS: Lymphocytes # (M) 0.84 k/uL (1.0-4.8); Metamyelocytes # (M) 0.17 k/uL (0); Metamyelocytes % 1 %; Monocytes # (M) 0.84 k/uL (0-1.0); Neutrophils # (M) 14.95 k/uL (1.3-7.7); Neutrophils % (M) 89 %; Nucleated Red Blood Cells 0 /100 WBC (0-0); Total Cells Counted 100
[2020-01-16 09:25] LABS: Poikilocytosis (M) Present
--- NOTE | 2020-01-16 09:47 | P.PN ---
Subjective Progress Note Date: 01/16/20 Patient was seen at side of bed and she continues to be edematous and continues to cough. Upon seeing her, she continues to be awake and responsive. No seizure-like activity overnight. Objective - Vital Signs Vital signs: Vital Signs Temp 98.2 F 01/16/20 04:00 Pulse 57 L 01/16/20 04:00 Resp 24 01/16/20 04:00 BP 155/77 01/16/20 04:00 Pulse Ox 97 01/16/20 06:23 Intake & Output 01/15/20 01/16/20 01/16/20 18:59 06:59 18:59 Intake Total 1120 1990 Output Total 750 710 Balance 370 1280 Weight 86.1 kg Intake: IV 600 1200 Sodium Chloride 0.45% 1, 600 1200 000 ml @ 75 mls/hr IV . [id number] [facility] Rx#:[id number] Intake, IV Titration 100 Amount cefTRIAXone 2 gm In 100 Sodium Chloride 0.9% 50 ml @ 100 mls/hr IVPB Q24HR [facility] Rx#:[id number] Tube Feeding 320 640 Other 100 150 Output: Urine 750 710 Other: Voiding Method Indwelling Catheter Indwelling Catheter # Bowel Movements 0 - Exam General: Appers to be in mild distress. Lung: She sounds congested throughout. She is having frequent episodes of coughing. Not in labored breathing Neurological: Patient is awake, alert, oriented to self. She was able to follow few simple commands such as showing a thumbs up on both hands and closing and opening eyes to voice. Pupils are 3-4 mm bilaterally and reactive to light. She is tracking me throughout the room and no nystagmus noted throughout. No facial weakness noted bilaterally. Motor: Could not assess because of condition. She was able to lift bilateral upper extremities above gravity. She was able to plantarflex and extend her ankles antigravity bilaterally. She is has mild increased tone of all extremities. No spontaneous movement or tremors seen. Sensation: Grimaces faces with painful stimuli. Reflexes are 1 throughout. Edema of all extremities. - Labs CBC & Chem 7: 01/16/20 06:35 01/16/20 06:35 Labs: Abnormal Lab Results - Last 24 Hours (Table) 01/15/20 01/15/20 01/15/20 Range/Units 03:57 12:10 17:39 D-Dimer (<0.60) mg/L FEU Chloride (98-107) mmol/L BUN (7-17) mg/dL Creatinine (0.52-1.04) mg/dL Glucose (74-99) mg/dL POC Glucose (mg/dL) 182 H 224 H (75-99) mg/dL Calcium (8.4-10.2) mg/dL Ferritin 3230.1 H (10.0-291.0) ng/mL AST (14-36) U/L Lactate Dehydrogenase (313-618) U/L C-Reactive Protein (<10.0) mg/L Total Protein (6.3-8.2) g/dL Albumin (3.5-5.0) g/dL 01/15/20 01/16/20 01/16/20 Range/Units 23:54 06:10 06:35 D-Dimer 1.67 H (<0.60) mg/L FEU Chloride (98-107) mmol/L BUN (7-17) mg/dL Creatinine (0.52-1.04) mg/dL Glucose (74-99) mg/dL POC Glucose (mg/dL) 149 H 121 H (75-99) mg/dL Calcium (8.4-10.2) mg/dL Ferritin (10.0-291.0) ng/mL AST (14-36) U/L Lactate Dehydrogenase (313-618) U/L C-Reactive Protein (<10.0) mg/L Total Protein (6.3-8.2) g/dL Albumin (3.5-5.0) g/dL 01/16/20 Range/Units 06:35 D-Dimer (<0.60) mg/L FEU Chloride 110 H (98-107) mmol/L BUN 76 H (7-17) mg/dL Creatinine 1.33 H (0.52-1.04) mg/dL Glucose 107 H (74-99) mg/dL POC Glucose (mg/dL) (75-99) mg/dL Calcium 7.7 L (8.4-10.2) mg/dL Ferritin (10.0-291.0) ng/mL AST 53 H (14-36) U/L Lactate Dehydrogenase 1211 H (313-618) U/L C-Reactive Protein 10.4 H (<10.0) mg/L Total Protein 4.4 L (6.3-8.2) g/dL Albumin 2.1 L (3.5-5.0) g/dL Assessment and Plan Assessment: * Altered mental status, likely due to toxic metabolic encephalopathy (TME). Patient has acute renal insufficiency, abnormal liver functions on top of severe bilateral pneumonia with oxygen/carbon dioxide mismatch resulting in TME--improving. * Acute bilateral Covid-19 pneumonia. Chest x-ray showed improving bilateral infiltrates. Patient has received Remdesvir on Decadron, vitamin C, vitamin D and zinc. * Bacteremia with Haemophilus influenza, on Ceftriaxone. * Acute renal insufficiency, improving--improving * Anemia--improving Plan: * EEG on 01/13/2020 (modified according ACNS guideline for COVID-19 postive): Moderate to severe encephalopathy of nonspecific etiology. The there is no focal slowing, apical pump discharges or seizure during the study. * Appears patient has toxic metabolic encephalopathy and she is improving. * Treatment of various metabolic conditions/medical conditions as per IM and critical care. * Infectious disease on the case. Patient has enough medical conditions to produce toxic metabolic encephalopathy. Lumbar puncture, only if recommended by ID. * CT head 01/12/20: Was reported as mild generalized atrophy. No acute intrac ranial abnormality seen. And fluid levels right sphenoid sinus at. Correlate for acute sinusitis. * Repeat CPK: 35 which is within normal limits. CRP is 32.4. * The plan was discussed with Primary team and ICU team. The plan was discussed with the patient's ICU team. There is no neurology service over the weekend. Please Perfect serve me if needed. Alfred Leon MD Neuro-hospitalist Time with Patient: Less than 30
[2020-01-16 11:43] LABS: Ferritin 2561.3 ng/mL (10.0-291.0)
[2020-01-16 12:02] LABS: Glucose,Whole Blood 139 mg/dL (75-99)
[2020-01-16] MEDS: hydrALAZINE HCL 20 MG/ML 1 ML VIAL IVP PRN (12:53)
--- NOTE | 2020-01-16 16:35 | P.PN ---
Subjective Progress Note Date: 01/16/20 Principal diagnosis: Acute bilateral CoVID 19 pneumonia A 74-year-old female patient, very poor historian with what seems to be advanced dementia in addition to history of hypertension and hyperlipidemia was coming in for shortness of breath and hypoxemia and this has been confirmed to be related to COVID 19 infection/pneumonia. The patient was transferred from an outside hospital. The patient is unable to give any further history. Review of her chest x-ray shows that the patient is a peripheral patchy pulmonary interstitial airspace disease infiltrates bilaterally and the patient is currently on 8 L of oxygen by nasal cannula to maintain a saturation above 90%. Her current pulse ox is around 93%. The white cell count is at 10.6. The patient also has a renal failure and the chronicity of the renal failure is not established. Her previous creatinine is unknown to me at this point in time. She also has a mild component of anion gap metabolic acidosis with a anion gap of 14 and a serum bicarb level of 17. LDH is 1213 and the patient is a CRP of 301. Also, the patient had a troponin leak with troponin levels being at 0.1 0.1 and 0.2 respectively. Pro calcitonin level was elevated at 1.54. She is afebrile. The blood cultures from the outside hospital showing gram-positive cocci and is not sure if it was in clusters overnight. The patient was started on vancomycin as an empiric antibiotic coverage. In terms of Covid 19 infection, the patient was started on a combination of Decadron and Remdesivir The patient is seen today 01/07/2020 in follow-up on selective care unit. She does have advanced dementia and is a poor historian. She is currently resting fairly comfortably in bed. She is on 8 L high flow nasal cannula to maintain O2 saturations in the 90s. She's afebrile. Hemodynamically stable. White count 27.1. Hemoglobin 12.2. Lymphocytes 0.81. Sodium 139. Potassium 4.2. Bicarb 14. Creatinine 2.06. AST 102. ALT 47. Troponin 0.266. C-reactive protein 192. Pro calcitonin 1.45. She remains on Decadron, vitamin C, vitamin D, zinc. She is receiving day #2 of Remdesivir. On 01/08/2020, the patient has been transferred to the intensive care unit. The patient developed progressive dyspnea tachypnea and hypoxemia overnight and the patient had to be transferred to the intensive care unit. At this point in time, the patient is confused, lethargic, at times agitated, unable to follow any commands and unable to hold a conversation. She gets quite restless when stimulated. She is sensing critical condition on 4 extremities. No neck stiffness. She is moving all 4 extremities and the patient has no focal neurological deficits. No neck stiffness. The patient was noted to have a possible culture an outside hospital and the patient was given vancomycin in addition to Zithromax and Rocephin per IDs recommendation. Nevertheless, based on our cultures, the results are still negative for now and there is no clear evidence of any bacterial infection at this point in time. Noted the Pro calcitonin level was elevated. At the same time, the patient has acute Covid 19 related to pneumonia bilateral. The patient is on high flow oxygen at 15 L with an FiO2 of 73% to maintain a saturation above 90%. A triple lumen catheter was established in the left subclavian. The chest x-ray post line insertion showed no evidence of any pneumothorax. Nevertheless, there was dense bilateral pulmonary infiltrates consistent with coronavirus Covid 19 related pneumonia. The patient is obviously tachypneic. She is having respiratory distress even on high flow oxygen. No use of accessory muscles of breathing. The blood work from today shows a troponin of 0.23. Vancomycin level is at 19.9. The patient a component of non-anion gap metabolic acidosis from yesterday. The patient is a bicarb drip which is running at 100 mL an hour. Serum bicarb is up to 18. Creatinine is down to 1.9, somewhat improved compared to yesterday. At the same time, the patient is being treated with a combination of Decadron, vitamin C, vitamin D, zinc. She is receiving day #3 of Remdesivir. On 01/09/2020, the patient seems to be less agitated as the patient was started on Precedex which is currently running at 0.25 mg per KG per minute. The patient seems to much more comfortable at this point in time. She remains on high flow oxygen 55 L with an FiO2 of 85% with a pulse ox of 96%. The patient's chest x-ray still showing diffuse breath and pulmonary infiltrates. Note that the patient was infected with Covid 19 and she had a Covid 19 related pneumonia in addition to septic shock secondary to Haemophilus influenza bacteremia. Noted the patient's blood culture came back positive for Haemophilus influenza. The patient is currently on IV Rocephin 2 g every 24 hours in regards to this septicemia. The patient is also being treated for coronavirus Covid 19 pneumonia with a combination of Decadron and Remdesivir and the patient also received a unit of, convalescent plasma. The patient has a ferritin level of 31 88. The patient has a LDH of 1147 and the CRP is down to 122. The patient is afebrile. Renal function and for the creatinine is down to 1.7. Serum bicarbs of 28 and the patient was being given D5 with 3 A of bicarb at the rate of 100 mL an hour. She is afebrile. She is still moans and at times becomes restless and tremulous. Nevertheless, there is no seizure activity noted and the patient is not able to follow single commands. Which are diffuse. There is peripheral infiltrate in the right and the left. There is somewhat improvement in pulmonary infiltration. Is a left sided subclavian triple-lumen catheter in place. The Pro calcitonin level is down to 1.45. 01/10/2020, the patient remains on Precedex and seems to be quite comfortable at a dose of 0.35 mcg per KG per hour. The patient is also on high flow oxygen at 55 L with an FiO2 of 80%. She is able to maintain a saturation above 90%. The chest x-ray is showing persistent airspace disease throughout the left lung whic h remains unchanged compared to yesterday. There is also scattered infiltration within the periphery of the right lung which probably have improved on today's evaluation. Note that the patient also had a positive blood culture with Haemophilus influenza. Accordingly, the patient was treated with IV Rocephin 2 g every 24 hours. The Pro calcitonin level is on the decline is currently down to 0.42. Hemodynamically stable and the patient is not requiring any pressors and she is receiving normal saline today to 75 mL an hour. The patient blood work showed a sodium of 147, BUN of 65 with a creatinine of 1.5, and the patient has an LDH of 1789, CRP of 73, and a d-dimer today's at 3.79. 01/11/2020, I'm seeing the patient for a follow-up. Her condition essentially unchanged compared to yesterday. The patient is still requiring Precedex to control her agitation and restlessness pH she remains on Precedex at a dose of 0.4 g per KG per minute. This is able to control her condition quite well. Meanwhile, the patient continues to remain hypoxic respiratory failure. She has required high flow oxygen at 55 L and FiO2 of 60%. The patient is on half- normal saline at the rate of 75 mL an hour. Urine output in the order of 70 mL an hour. Input output balance is positive for 21 mL over the past 24 hours. The patient's renal function with a creatinine of 1.47 which is improved comp ared to yesterday. Sodium level remains unchanged at 147. Chest x-ray findings are essentially stable with diffuse breath and pulmonary infiltrates consistent with Covid 19 related pneumonia. The patient remains on IV Decadron. The patient remains on IV Rocephin regarding her Haemophilus influenza septicemia. Hemodynamically stable. Maintaining her on blood pressure. She remains on Lovenox 40 mg subcu every 12 hours. Reevaluated today on 01/12/20, remains in the ICU, remains on airvo at 60 L/m flow, and 58% FiO2. O2 sats is 96%. Patient was admitted on 01/04, transferred to the ICU on 01/06. Receiving small dose of Precedex because of extreme agitation on presentation, patient is on Lovenox Q at 40 mg subcu twice a day, patient is also being treated with Rocephin for presumptive Haemophilus influenza pneumonia. Patient has not been eating, hence I will recommend a nasogastric tube placement and enteral feeding. She will be seen by neurology on consultation as the patient seems to be quite confused. And extremely stiff and rigid. Her CT of the brain showed mild generalized atrophy and air fluid levels in the right sphenoid sinus. Likely secondary to acute sinusitis. Chest x-ray shows bilateral peripheral extensive infiltrates consistent with Covid 19 pneumonitis. On 01/13/2020 patient seen in follow-up in the intensive care unit, she is resting quietly in bed, appears to be in no acute distress, remains on high flow oxygen per Airvo at 45 L/m, with FiO2 of 45%. Her pulse ox currently is 96-98%. Breathing appears to be comfortable, no respiratory distress, she did have a fever spike this morning with a temp of 101.1F, dynamically stable, she receiving 0.45 at 75 ML per hour, NG tube was inserted yesterday for nutritional support and she has Glucerna tube feedings infusing at 20 ML per hour, with a goal of 40. Did water flushes, patient remains confused, however she is not agitated. Denies any significant distress, today's chest x-ray has been reviewed showing patchy and confluent peripheral infiltrates. And worsening airspace disease at the left base. Patient completed her Remdesivir course on 01/10/2020. She received 1 unit of convalescent plasma, is receiving IV Decadron, 6 mg daily, she is on Lovenox at 40 mg twice daily, and her last d- dimer on 01/12/2020 was downtrending and down to 2.89. Her labs have been reviewed today, her white blood cell count is 26.2, hemoglobin is 11.1, sodium is 143, potassium is 4.1, chloride is 112, CO2 is 25, BUN is 67, creatinine is 1.35, renal profile is actually improving, ferritin is 3122, LDH has trended some, and is up to 1778, however her CRP is trending down, and is down to 32.4. Her last Pro calcitonin was downtrending, and was at 0.282 days ago. She is on any medical coverage in the form of Rocephin, ID service is following Patient was reevaluated today on 01/14/20, remains in the intensive care unit, patient is on airvo, requiring FiO2 of 45%, and 40 L flow. Patient feels weak and congested, she has some cough, however unable to clear any secretions. Patient finished her course of remdisivir, she received 1 unit of convalescent plasma, she is presently on Rocephin and Eraxis. Chest x-ray continues to show bilateral infiltrates. White count today is 26.5 hemoglobin is 11.3, d-dimer is 1.79. Renal profile showed a BUN of 68 creatinine 1.41, relatively unchanged over the last few days Reevaluated today on 01/15/20, patient remains in the intensive care unit, she is still on high flow oxygen, basically she is on airvo flow is 40 L/m, and FiO2 is 53%, O2 saturation is only 93%. Patient continues to feel weak, short of breath, she has intermittent cough, but unable to clear secretions. Continues to have leukocytosis with WBC count of 22.1 hemoglobin is 10.8. D-dimer is 1.60. Electrodes are normal BUN is 72 creatinine is 1.45. LDH is 1718 C- reactive protein is 17.8. Ferritin remains elevated at 3230. Chest x-ray continues to show bilateral infiltrates and small left-sided pleural effusion. Not much of a change is noted on her chest x-ray. Patient remains on the Covid 19 cocktail, she is also on Rocephin and on Eraxis. The patient is seen today 01/16/2020 in follow-up in the intensive care unit. She remains on the AirVo high flow oxygen device currently at 40 L and 35% FiO2. Chest x-ray continues as shows scattered bilateral infiltrates left greater than right. Stable compared to previous. She is arousable. Awake and alert. She continues with a loose nonproductive cough. She has a weak cough. She has been slow to progress. Previous blood cultures positive for Haemophilus influenza. Repeat blood cultures are revealing no growth. Sputum culture reveals no growth. White count 16.8. Hemoglobin 9.3. Platelets 107. D-dimer 1.67. Sodium 139. Potassium 4.5. Creatinine 1.33. Ferritin 2561. LDH 1211. C-reactive protein 10.4. She remains on Eraxis, ceftriaxone and IV Solu-Medrol. Lovenox for DVT prophylaxis. Objective - Vital Signs Vital signs: Vital Signs Temp 98.2 F 01/16/20 04:00 Pulse 80 01/16/20 12:00 Resp 17 01/16/20 12:00 BP 172/83 01/16/20 12:00 Pulse Ox 96 01/16/20 16:00 Intake & Output 01/15/20 01/16/20 01/16/20 18:59 06:59 18:59 Intake Total 1120 1990 980 Output Total 750 710 400 Balance 370 1280 580 Weight 86.1 kg Intake: IV 600 1200 600 Sodium Chloride 0.45% 1, 600 1200 600 000 ml @ 75 mls/hr IV . [id number] ANDREA Rx#:[id number] Intake, IV Titration 100 Amount cefTRIAXone 2 gm In 100 Sodium Chloride 0.9% 50 ml @ 100 mls/hr IVPB Q24HR ANDREA Rx#:[id number] Tube Feeding 320 640 320 Other 100 150 60 Output: Urine 750 710 400 Other: Voiding Method Indwelling Catheter Indwelling Catheter Indwelling Catheter # Bowel Movements 0 - Exam GENERAL: This is a 74-year-old female patient arousable, oriented x1. Well developed, well nourished. Currently on the AirVo high flow oxygen at 40 L and 55% FiO2. HEENT: Pupils are round and equally reacting to light. EOMI. No scleral icterus. No conjunctival pallor. Normocephalic, atraumatic. No pharyngeal erythema. No thyromegaly. CARDIOVASCULAR: S1 and S2 present. No murmurs, rubs, or gallops. PULMONARY: Lungs with bilateral scattered rhonchi ABDOMEN: Soft, nontender, nondistended, normoactive bowel sounds. No palpable organomegaly. MUSCULOSKELETAL: No joint swelling or deformity. EXTREMITIES: No cyanosis, clubbing, or pedal edema. NEUROLOGICAL: Gross neurological examination did not reveal any focal deficits. SKIN: No rashes. - Labs CBC & Chem 7: 01/16/20 06:35 01/16/20 06:35 Labs: Abnormal Lab Results - Last 24 Hours (Table) 01/15/20 01/15/20 01/16/20 Range/Units 17:39 23:54 06:10 WBC (3.8-10.6) k/uL RBC (3.80-5.40) m/uL Hgb (11.4-16.0) gm/dL Hct (34.0-46.0) % Plt Count (150-450) k/uL Neutrophils # (Manual) (1.3-7.7) k/uL Lymphocytes # (Manual) (1.0-4.8) k/uL Metamyelocytes # (Man) (0) k/uL D-Dimer (<0.60) mg/L FEU Chloride (98-107) mmol/L BUN (7-17) mg/dL Creatinine (0.52-1.04) mg/dL Glucose (74-99) mg/dL POC Glucose (mg/dL) 224 H 149 H 121 H (75-99) mg/dL Calcium (8.4-10.2) mg/dL Ferritin (10.0-291.0) ng/mL AST (14-36) U/L Lactate Dehydrogenase (313-618) U/L C-Reactive Protein (<10.0) mg/L Total Protein (6.3-8.2) g/dL Albumin (3.5-5.0) g/dL 01/16/20 01/16/20 01/16/20 Range/Units 06:35 06:35 06:35 WBC 16.8 H (3.8-10.6) k/uL RBC 3.09 L (3.80-5.40) m/uL Hgb 9.3 L D (11.4-16.0) gm/dL Hct 29.7 L (34.0-46.0) % Plt Count 107 L (150-450) k/uL Neutrophils # (Manual) 14.95 H (1.3-7.7) k/uL Lymphocytes # (Manual) 0.84 L (1.0-4.8) k/uL Metamyelocytes # (Man) 0.17 H (0) k/uL D-Dimer 1.67 H (<0.60) mg/L FEU Chloride 110 H (98-107) mmol/L BUN 76 H (7-17) mg/dL Creatinine 1.33 H (0.52-1.04) mg/dL Glucose 107 H (74-99) mg/dL POC Glucose (mg/dL) (75-99) mg/dL Calcium 7.7 L (8.4-10.2) mg/dL Ferritin 2561.3 H (10.0-291.0) ng/mL AST 53 H (14-36) U/L Lactate Dehydrogenase 1211 H (313-618) U/L C-Reactive Protein 10.4 H (<10.0) mg/L Total Protein 4.4 L (6.3-8.2) g/dL Albumin 2.1 L (3.5-5.0) g/dL 01/16/20 Range/Units 12:01 WBC (3.8-10.6) k/uL RBC (3.80-5.40) m/uL Hgb (11.4-16.0) gm/dL Hct (34.0-46.0) % Plt Count (150-450) k/uL Neutrophils # (Manual) (1.3-7.7) k/uL Lymphocytes # (Manual) (1.0-4.8) k/uL Metamyelocytes # (Man) (0) k/uL D-Dimer (<0.60) mg/L FEU Chloride (98-107) mmol/L BUN (7-17) mg/dL Creatinine (0.52-1.04) mg/dL Glucose (74-99) mg/dL POC Glucose (mg/dL) 139 H (75-99) mg/dL Calcium (8.4-10.2) mg/dL Ferritin (10.0-291.0) ng/mL AST (14-36) U/L Lactate Dehydrogenase (313-618) U/L C-Reactive Protein (<10.0) mg/L Total Protein (6.3-8.2) g/dL Albumin (3.5-5.0) g/dL Assessment and Plan Assessment: 1 Acute bilateral COVID 19 pneumonia, she's been quite slow to progress 2 Acute hypoxic respiratory failure, currently on AirVo high flow oxygen at 40 L and 55% FiO2 3 SELENE versus chronic kidney failure 4 Non anion gap meabolic acidosis, with anion gap of 17 and his serum bicarbonate was 14 5 Altered mental status acute versus chronic as she may have an underlying cognitive impairment dementia 6 Hypertension 7 Troponin leak 8 Hyperlipidemia Plan The patient was seen and evaluated by Dr. Arguelles Chest x-ray and labs reviewed Patient is still on AirVo high flow at 40 L and 55% FiO2 Titrate down as tolerated Continue the current treatment plan She has been slow to progress Poor prognosis based on the above-mentioned multiple comorbidities We'll continue to follow and make further recommendations based on her clinical status. I, the cosigning physician, performed a history & physical examination of the patient. Lungs sounds with bilateral scattered rhonchi. Maintaining good O2 saturations in the 90s on 55% Fio2 via the AirVo high flow oxygen device.. I discussed the assessment and plan of care with my nurse practitioner, Candi Horton. I attest to the above note as dictated by her.
[2020-01-16 17:49] LABS: Glucose,Whole Blood 241 mg/dL (75-99)
[2020-01-16] MEDS: ANIDULAFUNGIN 100 MG in SODIUM CHLORIDE 0.9% 100 ML IVPB SCH (20:44)
[2020-01-16] MEDS: INSULIN DETEMIR (LEVEMIR) 100 UNIT/ML SYR SQ SCH (20:45)
--- NOTE | 2020-01-16 21:58 | PN ---
PROGRESS NOTE DATE OF SERVICE: 01/16/2020 REASON FOR FOLLOW UP: 1. Haemophilus influenzae pneumonia and bacteremia. 2. Elevated white count and concern for oropharyngeal candidiasis. INTERVAL HISTORY: The patient is currently afebrile. She was slightly more awake and alert today. Did answer some simple questions by nodding her head. No vomiting. No diarrhea or any changes reported by the nursing staff. PHYSICAL EXAMINATION: Blood pressure 124/84 with a pulse of 98, temperature 98.2. She is 97% on 40% FiO2. General description is an elderly female lying in bed in no distress. Respiratory system: Unlabored breathing, decreased breath sounds in the bases. No wheezes. Heart S1, S2. Regular rate and rhythm. ABDOMEN: Soft, no tenderness. LABS: Hemoglobin 9.8, white count 16.8. BUN of 76 and 1.33. DIAGNOSTIC IMPRESSION AND PLAN: 1. Patient with Haemophilus influenzae bacteremia source is likely pneumonia. The patient is currently covered with Rocephin 2 grams daily. Chest x-ray with no worsening. 2. Patient with elevated white count more likely oropharyngeal candidiasis and responded to Eraxis with white count showing a downward trend. MMODL / IJN: [id number] /
[2020-01-16 23:39] LABS: Glucose,Whole Blood 206 mg/dL (75-99)
[2020-01-17] MEDS: hydrALAZINE HCL 20 MG/ML 1 ML VIAL IVP PRN ×3 (01:22→20:40)
[2020-01-17] MEDS: SODIUM CHLORIDE 0.45% 1,000 ML IV SCH ×2 (02:05→12:18)
[2020-01-17 06:04] LABS: Glucose,Whole Blood 185 mg/dL (75-99)
[2020-01-17] MEDS: METOPROLOL TARTRATE 5 MG/5 ML VIAL IVP SCH ×3 (06:13→18:18)
[2020-01-17] MEDS: methylPREDNISolone SOD SUCCI 125 MG/2 ML VIAL IV SCH ×3 (06:13→18:18)
[2020-01-17] MEDS: INSULIN ASPART (NovoLOG) 100 UNIT/ML VIAL SQ SCH ×3 (06:14→18:42)
[2020-01-17 06:48] LABS: HCT 31.9 % (34.0-46.0); HGB 10.5 gm/dL (11.4-16.0); MCH 30.8 pg (25.0-35.0); MCHC 32.9 g/dL (31.0-37.0); MCV 93.5 fL (80.0-100.0); Mean Platelet Volume 10.6; RBC 3.41 m/uL (3.80-5.40); RDW 13.8 % (11.5-15.5)
[2020-01-17 07:01] LABS: Albumin 2.4 g/dL (3.5-5.0); C Reactive Protein 13.3 mg/L (<10.0); Calcium 8.1 mg/dL (8.4-10.2); D-Dimer 1.42 mg/L FEU (<0.60); Potassium 4.6 mmol/L (3.5-5.1); Total Bilirubin 0.4 mg/dL (0.2-1.3); Total Protein 4.8 g/dL (6.3-8.2)
--- NOTE | 2020-01-17 07:09 | XR ---
EXAMINATION TYPE: XR chest 1V portable DATE OF EXAM: 01/17/2020 CLINICAL HISTORY: Difficulty breathing progress study. TECHNIQUE: Single AP portable semiupright view of the chest is obtained. COMPARISON: Chest x-ray from one day earlier and older studies. FINDINGS: Cardiac silhouette size is stable and mildly enlarged with atherosclerotic aorta. Backgrou nd chronic parenchymal change with diffuse left lung opacity silhouetting left hemidiaphragm. There i s less prominent peripheral right lung opacities. Osseous structures are intact. IMPRESSION: Chronic parenchymal changes and cardiomegaly with multifocal more prominent peripheral le ft greater than right acute infiltrates. No significant change from most recent x-ray.
[2020-01-17] MEDS: ALBUTEROL HFA INHALER INHALATION PRN ×2 (08:41→15:42)
[2020-01-17] MEDS: LIDOCAINE 5% PATCH TOPICAL SCH (09:16)
[2020-01-17] MEDS: ENOXAPARIN 40 MG/0.4 ML SYRINGE SQ SCH ×2 (09:25→20:40)
[2020-01-17] MEDS: ZINC SULFATE 220 MG CAP PO SCH (09:26)
[2020-01-17] MEDS: ASCORBIC ACID 500 MG TAB PO SCH ×2 (09:26→20:40)
[2020-01-17] MEDS: ASPIRIN 81 MG PO SCH (09:26)
[2020-01-17] MEDS: SENNOSIDES 8.6 MG TAB PO SCH ×2 (09:26→20:43)
[2020-01-17] MEDS: CHOLECALCIFEROL 1,000 UNIT TAB PO SCH (09:26)
[2020-01-17 11:34] LABS: Glucose,Whole Blood 188 mg/dL (75-99)
[2020-01-17] MEDS: cloNIDine 0.3 MG/24HR PATCH TRANSDERM SCH (12:06)
[2020-01-17 12:52] LABS: Lymphocytes # (M) 0.17 k/uL (1.0-4.8); Monocytes # (M) 0.34 k/uL (0-1.0); Neutrophils # (M) 16.49 k/uL (1.3-7.7); Neutrophils % (M) 97 %; Nucleated Red Blood Cells 0 /100 WBC (0-0); Total Cells Counted 100
[2020-01-17 12:54] LABS: Platelet Count 90 k/uL (150-450)
[2020-01-17 14:28] LABS: Ferritin 2728.7 ng/mL (10.0-291.0)
--- NOTE | 2020-01-17 16:24 | P.PN ---
Subjective Progress Note Date: 01/17/20 Principal diagnosis: Acute hypoxic respiratory failure secondary to covid 19 pneumonitis. A 74-year-old female patient, very poor historian with what seems to be advanced dementia in addition to history of hypertension and hyperlipidemia was coming in for shortness of breath and hypoxemia and this has been confirmed to be related to COVID 19 infection/pneumonia. The patient was transferred from an outside hospital. The patient is unable to give any further history. Review of her chest x-ray shows that the patient is a peripheral patchy pulmonary interstitial airspace disease infiltrates bilaterally and the patient is currently on 8 L of oxygen by nasal cannula to maintain a saturation above 90%. Her current pulse ox is around 93%. The white cell count is at 10.6. The patient also has a renal failure and the chronicity of the renal failure is not established. Her previous creatinine is unknown to me at this point in time. She also has a mild component of anion gap metabolic acidosis with a anion gap of 14 and a serum bicarb level of 17. LDH is 1213 and the patient is a CRP of 301. Also, the patient had a troponin leak with troponin levels being at 0.1 0.1 and 0.2 respectively. Pro calcitonin level was elevated at 1.54. She is afebrile. The blood cultures from the outside hospital showing gram-positive cocci and is not sure if it was in clusters overnight. The patient was started on vancomycin as an empiric antibiotic coverage. In terms of Covid 19 infection, the patient was started on a combination of Decadron and Remdesivir The patient is seen today 01/07/2020 in follow-up on selective care unit. She does have advanced dementia and is a poor historian. She is currently resting fairly comfortably in bed. She is on 8 L high flow nasal cannula to maintain O2 saturations in the 90s. She's afebrile. Hemodynamically stable. White count 27.1. Hemoglobin 12.2. Lymphocytes 0.81. Sodium 139. Potassium 4.2. Bicarb 14. Creatinine 2.06. AST 102. ALT 47. Troponin 0.266. C-reactive protein 192. Pro calcitonin 1.45. She remains on Decadron, vitamin C, vitamin D, zinc. She is receiving day #2 of Remdesivir. On 01/08/2020, the patient has been transferred to the intensive care unit. The patient developed progressive dyspnea tachypnea and hypoxemia overnight and the patient had to be transferred to the intensive care unit. At this point in time, the patient is confused, lethargic, at times agitated, unable to follow any commands and unable to hold a conversation. She gets quite restless when stimulated. She is sensing critical condition on 4 extremities. No neck stiffness. She is moving all 4 extremities and the patient has no focal neurological deficits. No neck stiffness. The patient was noted to have a possible culture an outside hospital and the patient was given vancomycin in addition to Zithromax and Rocephin per IDs recommendation. Nevertheless, based on our cultures, the results are still negative for now and there is no clear evidence of any bacterial infection at this point in time. Noted the Pro calcitonin level was elevated. At the same time, the patient has acute Covid 19 related to pneumonia bilateral. The patient is on high flow oxygen at 15 L with an FiO2 of 73% to maintain a saturation above 90%. A triple lumen catheter was established in the left subclavian. The chest x-ray post line insertion showed no evidence of any pneumothorax. Nevertheless, there was dense bilateral pulmonary infiltrates consistent with coronavirus Covid 19 related pneumonia. The patient is obviously tachypneic. She is having respiratory distress even on high flow oxygen. No use of accessory muscles of breathing. The blood work from today shows a troponin of 0.23. Vancomycin level is at 19.9. The patient a component of non-anion gap metabolic acidosis from yesterday. The patient is a bicarb drip which is running at 100 mL an hour. Serum bicarb is up to 18. Creatinine is down to 1.9, somewhat improved compared to yesterday. At the same time, the patient is being treated with a combination of Decadron, vitamin C, vitamin D, zinc. She is receiving day #3 of Remdesivir. On 01/09/2020, the patient seems to be less agitated as the patient was started on Precedex which is currently running at 0.25 mg per KG per minute. The patient seems to much more comfortable at this point in time. She remains on high flow oxygen 55 L with an FiO2 of 85% with a pulse ox of 96%. The patient's chest x-ray still showing diffuse breath and pulmonary infiltrates. Note that the patient was infected with Covid 19 and she had a Covid 19 related pneumonia in addition to septic shock secondary to Haemophilus influenza bacteremia. Noted the patient's blood culture came back positive for Haemophilus influenza. The patient is currently on IV Rocephin 2 g every 24 hours in regards to this septicemia. The patient is also being treated for coronavirus Covid 19 pneumonia with a combination of Decadron and Remdesivir and the patient also received a unit of, convalescent plasma. The patient has a ferritin level of 3188. The patient has a LDH of 1147 and the CRP is down to 122. The patient is afebrile. Renal function and for the creatinine is down to 1.7. Serum bicarbs of 28 and the patient was being given D5 with 3 A of bicarb at the rate of 100 mL an hour. She is afebrile. She is still moans and at times becomes restless and tremulous. Nevertheless, there is no seizure activity noted and the patient is not able to follow single commands. Which are diffuse. There is peripheral infiltrate in the right and the left. There is somewhat improvement in pulmonary infiltration. Is a left sided subclavian triple-lumen catheter in place. The Pro calcitonin level is down to 1.45. 01/10/2020, the patient remains on Precedex and seems to be quite comfortable at a dose of 0.35 mcg per KG per hour. The patient is also on high flow oxygen at 55 L with an FiO2 of 80%. She is able to maintain a saturation above 90%. The chest x-ray is showing persistent airspace disease throughout the left lung which remains unchanged compared to yesterday. There is also scattered infiltration within the periphery of the right lung which probably have improved on today's evaluation. Note that the patient also had a positive blood culture with Haemophilus influenza. Accordingly, the patient was treated with IV Rocephin 2 g every 24 hours. The Pro calcitonin level is on the decline is currently down to 0.42. Hemodynamically stable and the patient is not requiring any pressors and she is receiving normal saline today to 75 mL an hour. The patient blood work showed a sodium of 147, BUN of 65 with a creatinine of 1.5, and the patient has an LDH of 1789, CRP of 73, and a d-dimer today's at 3.79. 01/11/2020, I'm seeing the patient for a follow-up. Her condition essentially unchanged compared to yesterday. The patient is still requiring Precedex to control her agitation and restlessness pH she remains on Precedex at a dose of 0.4 g per KG per minute. This is able to control her condition quite well. Meanwhile, the patient continues to remain hypoxic respiratory failure. She has required high flow oxygen at 55 L and FiO2 of 60%. The patient is on half- normal saline at the rate of 75 mL an hour. Urine output in the order of 70 mL an hour. Input output balance is positive for 21 mL over the past 24 hours. The patient's renal function with a creatinine of 1.47 which is improved compared to yesterday. Sodium level remains unchanged at 147. Chest x-ray findings are essentially stable with diffuse breath and pulmonary infiltrates consistent with Covid 19 related pneumonia. The patient remains on IV Decadron. The patient remains on IV Rocephin regarding her Haemophilus influenza septicemia. Hemodynamically stable. Maintaining her on blood pressure. She remains on Lovenox 40 mg subcu every 12 hours. Reevaluated today on 01/12/20, remains in the ICU, remains on airvo at 60 L/m flow, and 58% FiO2. O2 sats is 96%. Patient was admitted on 01/04, transferred to the ICU on 01/06. Receiving small dose of Precedex because of extreme a gitation on presentation, patient is on Lovenox Q at 40 mg subcu twice a day, patient is also being treated with Rocephin for presumptive Haemophilus influenza pneumonia. Patient has not been eating, hence I will recommend a nasogastric tube placement and enteral feeding. She will be seen by neurology on consultation as the patient seems to be quite confused. And extremely stiff and rigid. Her CT of the brain showed mild generalized atrophy and air fluid levels in the right sphenoid sinus. Likely secondary to acute sinusitis. Chest x-ray shows bilateral peripheral extensive infiltrates consistent with Covid 19 pneumonitis. On 01/13/2020 patient seen in follow-up in the intensive care unit, she is resting quietly in bed, appears to be in no acute distress, remains on high flow oxygen per Airvo at 45 L/m, with FiO2 of 45%. Her pulse ox currently is 96-98%. Breathing appears to be comfortable, no respiratory distress, she did have a fever spike this morning with a temp of 101.1F, dynamically stable, she receiving 0.45 at 75 ML per hour, NG tube was inserted yesterday for nutritional support and she has Glucerna tube feedings infusing at 20 ML per hour, with a goal of 40. Did water flushes, patient remains confused, however she is not agitated. Denies any significant distress, today's chest x-ray has been reviewed showing patchy and confluent peripheral infiltrates. And worsening airspace disease at the left base. Patient completed her Remdesivir course on 01/10/2020. She received 1 unit of convalescent plasma, is receiving IV Decadron, 6 mg daily, she is on Lovenox at 40 mg twice daily, and her last d- dimer on 01/12/2020 was downtrending and down to 2.89. Her labs have been reviewed today, her white blood cell count is 26.2, hemoglobin is 11.1, sodium is 143, potassium is 4.1, chloride is 112, CO2 is 25, BUN is 67, creatinine is 1.35, renal profile is actually improving, ferritin is 3122, LDH has trended some, and is up to 1778, however her CRP is trending down, and is down to 32.4. Her last Pro calcitonin was downtrending, and was at 0.282 days ago. She is on any medical coverage in the form of Rocephin, ID service is following Patient was reevaluated today on 01/14/20, remains in the intensive care unit, patient is on airvo, requiring FiO2 of 45%, and 40 L flow. Patient feels weak and congested, she has some cough, however unable to clear any secretions. Patient finished her course of remdisivir, she received 1 unit of convalescent plasma, she is presently on Rocephin and Eraxis. Chest x-ray continues to show bilateral infiltrates. White count today is 26.5 hemoglobin is 11.3, d-dimer is 1.79. Renal profile showed a BUN of 68 creatinine 1.41, relatively unchanged over the last few days Reevaluated today on 01/15/20, patient remains in the intensive care unit, she is still on high flow oxygen, basically she is on airvo flow is 40 L/m, and FiO2 is 53%, O2 saturation is only 93%. Patient continues to feel weak, short of lorna ath, she has intermittent cough, but unable to clear secretions. Continues to have leukocytosis with WBC count of 22.1 hemoglobin is 10.8. D-dimer is 1.60. Electrodes are normal BUN is 72 creatinine is 1.45. LDH is 1718 C-reactive protein is 17.8. Ferritin remains elevated at 3230. Chest x-ray continues to show bilateral infiltrates and small left-sided pleural effusion. Not much of a change is noted on her chest x-ray. Patient remains on the Covid 19 cocktail, she is also on Rocephin and on Eraxis. Patient was evaluated today on 01/17/20, remains in the ICU, overall pulmonary status is marginal, continues to have worsening infiltrates in the left lung, remains on 40% FiO2 and 40 L flow via airvo. Patient is also receiving enteral feeding via a nasogastric tube. Surprisingly the patient is holding, she is not getting any better and she is not getting any worse. Chest x-ray again shows significant infiltrate involving the left lung. WBC count today is 17 hemoglobin is 10.5, d-dimer is 1.42. Electrodes are normal renal profile showed a BUN of 72 creatinine of 1.30. Improving over the last few days. Neurologically, the patient is about the same Objective - Vital Signs Vital signs: Vital Signs Temp 97.8 F 01/17/20 12:00 Pulse 77 01/17/20 12:00 Resp 22 01/17/20 12:00 BP 170/87 01/17/20 12:00 Pulse Ox 99 01/17/20 15:42 Intake & Output 01/16/20 01/17/20 01/17/20 18:59 06:59 18:59 Intake Total 980 1990 420 Output Total 400 805 150 Balance 580 1185 270 Weight 87.4 kg Intake: IV 600 1200 300 Sodium Chloride 0.45% 1, 600 1200 300 000 ml @ 75 mls/hr IV . [id number] [facility] Rx#:[id number] Tube Feeding 320 640 120 Other 60 150 Output: Urine 400 805 150 Other: Voiding Method Indwelling Catheter Indwelling Catheter Indwelling Catheter # Bowel Movements 0 - Exam GENERAL: This is a 74-year-old female patient on high flow oxygen, in no distress. Head exam was generally normal. There was no scleral icterus or corneal arcus. Mucous membranes were moist. HEENT: Pupils are round and equally reacting to light. EOMI. No scleral icterus. No conjunctival pallor. Normocephalic, atraumatic. No pharyngeal erythema. No thyromegaly. The patient subclavian triple lumen catheter inserted in left subclavian vein. CARDIOVASCULAR: S1 and S2 present. No murmurs, rubs, or gallops. PULMONARY: Symmetrical chest expansion, rhonchi noted bilaterally. ABDOMEN: Soft, nontender, nondistended, normoactive bowel sounds. No palpable organomegaly. MUSCULOSKELETAL: No joint swelling or deformity. EXTREMITIES: No cyanosis, clubbing, 1+ bipedal edema. NEUROLOGICAL: Opens eyes, follows simple instructions, seems to be generally weak and frail. SKIN: No rashes. - Labs CBC & Chem 7: 01/17/20 06:10 01/17/20 06:10 Labs: Abnormal Lab Results - Last 24 Hours (Table) 01/16/20 01/16/20 01/17/20 Range/Units 17:48 23:37 06:02 WBC (3.8-10.6) k/uL RBC (3.80-5.40) m/uL Hgb (11.4-16.0) gm/dL Hct (34.0-46.0) % Plt Count (150-450) k/uL Neutrophils # (Manual) (1.3-7.7) k/uL Lymphocytes # (Manual) (1.0-4.8) k/uL D-Dimer (<0.60) mg/L FEU Chloride (98-107) mmol/L BUN (7-17) mg/dL Creatinine (0.52-1.04) mg/dL Glucose (74-99) mg/dL POC Glucose (mg/dL) 241 H 206 H 185 H (75-99) mg/dL Calcium (8.4-10.2) mg/dL Ferritin (10.0-291.0) ng/mL AST (14-36) U/L ALT (4-34) U/L Lactate Dehydrogenase (313-618) U/L C-Reactive Protein (<10.0) mg/L Total Protein (6.3-8.2) g/dL Albumin (3.5-5.0) g/dL 01/17/20 01/17/20 01/17/20 Range/Units 06:10 06:10 06:10 WBC 17.0 H (3.8-10.6) k/uL RBC 3.41 L (3.80-5.40) m/uL Hgb 10.5 L (11.4-16.0) gm/dL Hct 31.9 L (34.0-46.0) % Plt Count 90 L (150-450) k/uL Neutrophils # (Manual) 16.49 H (1.3-7.7) k/uL Lymphocytes # (Manual) 0.17 L (1.0-4.8) k/uL D-Dimer 1.42 H (<0.60) mg/L FEU Chloride 109 H (98-107) mmol/L BUN 72 H (7-17) mg/dL Creatinine 1.30 H (0.52-1.04) mg/dL Glucose 181 H (74-99) mg/dL POC Glucose (mg/dL) (75-99) mg/dL Calcium 8.1 L (8.4-10.2) mg/dL Ferritin 2728.7 H (10.0-291.0) ng/mL AST 48 H (14-36) U/L ALT 40 H (4-34) U/L Lactate Dehydrogenase 1407 H (313-618) U/L C-Reactive Protein 13.3 H (<10.0) mg/L Total Protein 4.8 L (6.3-8.2) g/dL Albumin 2.4 L (3.5-5.0) g/dL 01/17/20 Range/Units 11:33 WBC (3.8-10.6) k/uL RBC (3.80-5.40) m/uL Hgb (11.4-16.0) gm/dL Hct (34.0-46.0) % Plt Count (150-450) k/uL Neutrophils # (Manual) (1.3-7.7) k/uL Lymphocytes # (Manual) (1.0-4.8) k/uL D-Dimer (<0.60) mg/L FEU Chloride (98-107) mmol/L BUN (7-17) mg/dL Creatinine (0.52-1.04) mg/dL Glucose (74-99) mg/dL POC Glucose (mg/dL) 188 H (75-99) mg/dL Calcium (8.4-10.2) mg/dL Ferritin (10.0-291.0) ng/mL AST (14-36) U/L ALT (4-34) U/L Lactate Dehydrogenase (313-618) U/L C-Reactive Protein (<10.0) mg/L Total Protein (6.3-8.2) g/dL Albumin (3.5-5.0) g/dL Assessment and Plan Assessment: Impression: Acute hypoxic respiratory failure Acute covid 19 pneumonitis Acute bacteremia secondary to Haemophilus influenza Underlying Haemophilus influenza pneumonia is not entirely ruled out. Acute kidney injury Acute toxic metabolic encephalopathy secondary to above. Hypertension. Dyslipidemia. Altered mental status/encephalopathy as noted above felt to be toxic metabolic encephalopathy secondary to Covid 19 pneumonitis Recommendation: Continue high flow oxygen and high FiO2. Titrate accordingly maintain O2 saturation above 90%. Continue Decadron. Continue antibiotics presently on Rocephin for Haemophilus influenza sepsis and elevated pro calcitonin. Continue Lovenox 40 mg twice a day. Continue GI and DVT prophylaxis. We'll continue to monitor in the ICU for the next 24 hours Time with Patient: Less than 30
[2020-01-17 18:28] LABS: Glucose,Whole Blood 195 mg/dL (75-99)
--- NOTE | 2020-01-17 19:16 | P.PN ---
Subjective Progress Note Date: 01/16/20 Principal diagnosis: Acute hypoxic respiratory failure: secondary to covid 19 pneumonia Secondary bacterial pneumonia Bacteremia with Haemophilus influenza Acute renal failure/chronic kidney disease Elevated troponin secondary to infection and renal failure 74-year-old female is admitted for hypoxia elevated troponins found to have positive Covid. Patient was transferred from outside hospital. Patient at baseline apparently is awake and alert. Patient is oriented 1 at this time. Patient did have fever and shortness of breath because of which patient was sent in here. Patient has elevated urine creatinine of 2.5 baseline is not available but patient apparently has chronic kidney disease. Does follow with a shoe shiner as an outpatient. Patient is found to have mildly elevated troponins of 0.2-3. Patient denied any chest pain although patient is extremely poor historian because of her confusion and hearing problems. His blood cult ures from the other hospital came back positive for gram-positive cocci unsure whether it's clusters sore repairs. Patient will be started on vancomycin infectious disease will be consulted may need tube be switched to daptomycin, considering her kidney function. Objective - Vital Signs Vital signs: Vital Signs Temp 98.4 F 01/16/20 00:00 Pulse 80 01/16/20 00:00 Resp 27 H 01/16/20 00:00 BP 148/87 01/16/20 00:00 Pulse Ox 98 01/16/20 01:46 Intake & Output 01/15/20 01/15/20 01/16/20 06:59 18:59 06:59 Intake Total 1630 1120 1010 Output Total 380 750 225 Balance 1250 370 785 Intake: IV 1000 600 600 Anidulafungin 100 mg In 100 Sodium Chloride 0.9% 100 ml @ 84 mls/hr IVPB HS [facility] Rx#:[id number] Sodium Chloride 0.45% 1, 900 600 600 000 ml @ 75 mls/hr IV . [id number] [facility] Rx#:[id number] Intake, IV Titration 100 Amount cefTRIAXone 2 gm In 100 Sodium Chloride 0.9% 50 ml @ 100 mls/hr IVPB Q24HR [facility] Rx#:[id number] Tube Feeding 480 320 320 Other 150 100 90 Output: Urine 380 750 225 Other: Voiding Method Indwelling Catheter Indwelling Catheter Indwelling Catheter # Bowel Movements 0 - Exam GENERAL: Drowsy arousable, not in any acute distress. Well developed, well nourished. Patient has nonessential tremor, possibility of myoclonus, much better. HEENT: Pupils are round and equally reacting to light. EOMI. No scleral icterus. No conjunctival pallor. Normocephalic, atraumatic. No pharyngeal erythema. No thyromegaly. CARDIOVASCULAR: S1 and S2 present. No murmurs, rubs, or gallops. PULMONARY: Bilateral crackles and rhonchi diffusely ABDOMEN: Soft, nontender, nondistended, normoactive bowel sounds. No palpable organomegaly. MUSCULOSKELETAL: No joint swelling or deformity. EXTREMITIES: No cyanosis, clubbing, or pedal edema. NEUROLOGICAL: Gross neurological examination did not reveal any focal deficits. - Labs CBC & Chem 7: 01/16/20 06:35 01/16/20 06:35 Labs: Abnormal Lab Results - Last 24 Hours (Table) 01/15/20 01/15/20 01/15/20 Range/Units 03:57 03:57 03:57 WBC 22.1 H (3.8-10.6) k/uL RBC 3.59 L (3.80-5.40) m/uL Hgb 10.8 L (11.4-16.0) gm/dL Hct 33.7 L (34.0-46.0) % Neutrophils # (Manual) 20.50 H (1.3-7.7) k/uL Lymphocytes # (Manual) 0.66 L (1.0-4.8) k/uL D-Dimer 1.60 H (<0.60) mg/L FEU Chloride 110 H (98-107) mmol/L BUN 72 H (7-17) mg/dL Creatinine 1.45 H (0.52-1.04) mg/dL Glucose 123 H (74-99) mg/dL POC Glucose (mg/dL) (75-99) mg/dL Calcium 8.0 L (8.4-10.2) mg/dL Ferritin 3230.1 H (10.0-291.0) ng/mL AST 42 H (14-36) U/L Lactate Dehydrogenase 1718 H (313-618) U/L C-Reactive Protein 17.8 H (<10.0) mg/L Total Protein 4.8 L (6.3-8.2) g/dL Albumin 2.4 L (3.5-5.0) g/dL 01/15/20 01/15/20 01/15/20 Range/Units 05:52 12:10 17:39 WBC (3.8-10.6) k/uL RBC (3.80-5.40) m/uL Hgb (11.4-16.0) gm/dL Hct (34.0-46.0) % Neutrophils # (Manual) (1.3-7.7) k/uL Lymphocytes # (Manual) (1.0-4.8) k/uL D-Dimer (<0.60) mg/L FEU Chloride (98-107) mmol/L BUN (7-17) mg/dL Creatinine (0.52-1.04) mg/dL Glucose (74-99) mg/dL POC Glucose (mg/dL) 145 H 182 H 224 H (75-99) mg/dL Calcium (8.4-10.2) mg/dL Ferritin (10.0-291.0) ng/mL AST (14-36) U/L Lactate Dehydrogenase (313-618) U/L C-Reactive Protein (<10.0) mg/L Total Protein (6.3-8.2) g/dL Albumin (3.5-5.0) g/dL 01/15/20 Range/Units 23:54 WBC (3.8-10.6) k/uL RBC (3.80-5.40) m/uL Hgb (11.4-16.0) gm/dL Hct (34.0-46.0) % Neutrophils # (Manual) (1.3-7.7) k/uL Lymphocytes # (Manual) (1.0-4.8) k/uL D-Dimer (<0.60) mg/L FEU Chloride (98-107) mmol/L BUN (7-17) mg/dL Creatinine (0.52-1.04) mg/dL Glucose (74-99) mg/dL POC Glucose (mg/dL) 149 H (75-99) mg/dL Calcium (8.4-10.2) mg/dL Ferritin (10.0-291.0) ng/mL AST (14-36) U/L Lactate Dehydrogenase (313-618) U/L C-Reactive Protein (<10.0) mg/L Total Protein (6.3-8.2) g/dL Albumin (3.5-5.0) g/dL Microbiology - Last 24 Hours (Table) 01/08/20 20:46 Blood Culture - Final Blood No Growth after 144 hours Assessment and Plan Assessment: -Acute hypoxic respiratory failure: secondary to covid 19 pneumonia. Patient was started on Decadron and completed Remdesivir patient is presently on a 45L of oxygen via Airvo. continue with NG tube feedings with Glucerna. Patient was started on antifungals cussing that she has fever on antibiotics. Patient has worsening leukocytosis as well and patient is being followed by infectious disease - secondary bacterial pneumonia , patient has bacteremia with Haemophilus influenza, patient is on Rocephin presently. Repeat blood cultures are negative - bacteremia: -Toxic encephalopathy, altered mental status: Secondary to infection, EKG did not show any seizure activity patient still has some tremors -Elevated troponin secondary to infection and renal failure -Possible Acute renal failure patient does have chronic kidney disease unable to stage chronic kidney disease is at baseline is not known. Patient will continued on IV fluids once serum creatinine can you to improve -Hypertension: Patient is presently on clonidine patch. -Hyperlipidemia Possible myoclonus: Secondary to encephalopathy, neurology evaluated the patient. -DVT prophylaxis with heparin
--- NOTE | 2020-01-17 19:33 | P.PN ---
Subjective Progress Note Date: 01/17/20 Principal diagnosis: Acute hypoxic respiratory failure: secondary to covid 19 pneumonia Secondary bacterial pneumonia Bacteremia with Haemophilus influenza Acute renal failure/chronic kidney disease Elevated troponin secondary to infection and renal failure 74-year-old female is admitted for hypoxia elevated troponins found to have positive Covid. Patient was transferred from outside hospital. Patient at baseline apparently is awake and alert. Patient is oriented 1 at this time. Patient did have fever and shortness of breath because of which patient was sent in here. Patient has elevated urine creatinine of 2.5 baseline is not available but patient apparently has chronic kidney disease. 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 Patient is found to have mildly elevated troponins of 0.2-3. Patient denied any chest pain although patient is extremely poor historian because of her confusion and hearing problems. His blood cult ures from the other hospital came back positive for gram-positive cocci unsure whether it's clusters sore repairs. Patient will be started on vancomycin infectious disease will be consulted may need tube be switched to daptomycin, considering her kidney function. 01/17/2020, Patient remains in the ICU, overall pulmonary status is marginal, continues to have worsening infiltrates in the left lung, remains on 40% FiO2 and 40 L flow via airvo. Patient is also receiving enteral feeding via a nasogastric tube. Surprisingly the patient is holding, she is not getting any better and she is not getting any worse. Chest x-ray again shows significant infiltrate involving the left lung. WBC count today is 17 hemoglobin is 10.5, d-dimer is 1.42. Electrodes are normal renal profile showed a BUN of 72 creatinine of 1.30. Improving over the last few days. Neurologically, the patient is about the same Objective - Vital Signs Vital signs: Vital Signs Temp 98.1 F 01/17/20 16:00 Pulse 82 01/17/20 16:00 Resp 16 01/17/20 16:00 BP 178/81 01/17/20 16:00 Pulse Ox 99 01/17/20 16:00 Intake & Output 01/17/20 01/17/20 01/18/20 06:59 18:59 06:59 Intake Total 1990 1220 Output Total 805 520 Balance 1185 700 Weight 87.4 kg Intake: IV 1200 1100 Sodium Chloride 0.45% 1, 1200 1100 000 ml @ 75 mls/hr IV . [id number] [facility] Rx#:[id number] Tube Feeding 640 120 Other 150 Output: Urine 805 520 Other: Voiding Method Indwelling Catheter Indwelling Catheter # Bowel Movements 0 - Exam GENERAL: Drowsy arousable, not in any acute distress. Well developed, well nourished. Patient has nonessential tremor, possibility of myoclonus, much better. HEENT: Pupils are round and equally reacting to light. EOMI. No scleral icterus. No conjunctival pallor. Normocephalic, atraumatic. No pharyngeal erythema. No thyromegaly. CARDIOVASCULAR: S1 and S2 present. No murmurs, rubs, or gallops. PULMONARY: Bilateral crackles and rhonchi diffusely ABDOMEN: Soft, nontender, nondistended, normoactive bowel sounds. No palpable organomegaly. MUSCULOSKELETAL: No joint swelling or deformity. EXTREMITIES: No cyanosis, clubbing, or pedal edema. NEUROLOGICAL: Gross neurological examination did not reveal any focal deficits. - Labs CBC & Chem 7: 01/17/20 06:10 01/17/20 06:10 Labs: Abnormal Lab Results - Last 24 Hours (Table) 01/16/20 01/17/20 01/17/20 Range/Units 23:37 06:02 06:10 WBC 17.0 H (3.8-10.6) k/uL RBC 3.41 L (3.80-5.40) m/uL Hgb 10.5 L (11.4-16.0) gm/dL Hct 31.9 L (34.0-46.0) % Plt Count 90 L (150-450) k/uL Neutrophils # (Manual) 16.49 H (1.3-7.7) k/uL Lymphocytes # (Manual) 0.17 L (1.0-4.8) k/uL D-Dimer (<0.60) mg/L FEU Chloride (98-107) mmol/L BUN (7-17) mg/dL Creatinine (0.52-1.04) mg/dL Glucose (74-99) mg/dL POC Glucose (mg/dL) 206 H 185 H (75-99) mg/dL Calcium (8.4-10.2) mg/dL Ferritin (10.0-291.0) ng/mL AST (14-36) U/L ALT (4-34) U/L Lactate Dehydrogenase (313-618) U/L C-Reactive Protein (<10.0) mg/L Total Protein (6.3-8.2) g/dL Albumin (3.5-5.0) g/dL 01/17/20 01/17/20 01/17/20 Range/Units 06:10 06:10 11:33 WBC (3.8-10.6) k/uL RBC (3.80-5.40) m/uL Hgb (11.4-16.0) gm/dL Hct (34.0-46.0) % Plt Count (150-450) k/uL Neutrophils # (Manual) (1.3-7.7) k/uL Lymphocytes # (Manual) (1.0-4.8) k/uL D-Dimer 1.42 H (<0.60) mg/L FEU Chloride 109 H (98-107) mmol/L BUN 72 H (7-17) mg/dL Creatinine 1.30 H (0.52-1.04) mg/dL Glucose 181 H (74-99) mg/dL POC Glucose (mg/dL) 188 H (75-99) mg/dL Calcium 8.1 L (8.4-10.2) mg/dL Ferritin 2728.7 H (10.0-291.0) ng/mL AST 48 H (14-36) U/L ALT 40 H (4-34) U/L Lactate Dehydrogenase 1407 H (313-618) U/L C-Reactive Protein 13.3 H (<10.0) mg/L Total Protein 4.8 L (6.3-8.2) g/dL Albumin 2.4 L (3.5-5.0) g/dL 01/17/20 Range/Units 18:26 WBC (3.8-10.6) k/uL RBC (3.80-5.40) m/uL Hgb (11.4-16.0) gm/dL Hct (34.0-46.0) % Plt Count (150-450) k/uL Neutrophils # (Manual) (1.3-7.7) k/uL Lymphocytes # (Manual) (1.0-4.8) k/uL D-Dimer (<0.60) mg/L FEU Chloride (98-107) mmol/L BUN (7-17) mg/dL Creatinine (0.52-1.04) mg/dL Glucose (74-99) mg/dL POC Glucose (mg/dL) 195 H (75-99) mg/dL Calcium (8.4-10.2) mg/dL Ferritin (10.0-291.0) ng/mL AST (14-36) U/L ALT (4-34) U/L Lactate Dehydrogenase (313-618) U/L C-Reactive Protein (<10.0) mg/L Total Protein (6.3-8.2) g/dL Albumin (3.5-5.0) g/dL Assessment and Plan Assessment: -Acute hypoxic respiratory failure: secondary to covid 19 pneumonia. Patient w as started on Decadron and completed Remdesivir patient is presently on a 45L of oxygen via Airvo. continue with NG tube feedings with Glucerna. Patient was started on antifungals cussing that she has fever on antibiotics. Patient has worsening leukocytosis as well and patient is being followed by infectious disease - secondary bacterial pneumonia , patient has bacteremia with Haemophilus influe nza, patient is on Rocephin presently. Repeat blood cultures are negative - bacteremia: -Toxic encephalopathy, altered mental status: Secondary to infection, EKG did not show any seizure activity patient still has some tremors -Elevated troponin secondary to infection and renal failure -Possible Acute renal failure patient does have chronic kidney disease unable to stage chronic kidney disease is at baseline is not known. Patient will continued on IV fluids once serum creatinine can you to improve -Hypertension: Patient is presently on clonidine patch. -Hyperlipidemia Possible myoclonus: Secondary to encephalopathy, neurology evaluated the patient. -DVT prophylaxis with heparin
[2020-01-17 20:28] LABS: Glucose,Whole Blood 186 mg/dL (75-99)
[2020-01-17] MEDS: INSULIN DETEMIR (LEVEMIR) 100 UNIT/ML SYR SQ SCH (20:40)
[2020-01-17] MEDS: ANIDULAFUNGIN 100 MG in SODIUM CHLORIDE 0.9% 100 ML IVPB SCH (20:43)
--- NOTE | 2020-01-17 23:34 | PN ---
PROGRESS NOTE DATE OF SERVICE: 01/17/2020 REASON FOR FOLLOW UP: Haemophilus influenzae bacteremia pneumonia. INTERVAL HISTORY: The patient is currently afebrile. Patient was more awake, alert and did answer some simple questions. Still requiring high-flow oxygen. No vomiting or diarrhea has been reported by the nursing staff. PHYSICAL EXAMINATION: Blood pressure 180/90 with a pulse of 82, temperature 98.5. She is 94% on high-flow oxygen. General description is a middle-aged female lying in bed in no distress. Respiratory system: Unlabored breathing, decreased breath sounds in the base, with no wheeze. Heart S1, S2. Regular rate and rhythm. Abdomen soft, no tenderness. LABS: BUN of 72, creatinine 1.2. Hemoglobin is 10.5, white count 17. DIAGNOSTIC IMPRESSION AND PLAN: 1. Patient with Haemophilus influenzae bacteremia, source likely pneumonia. This patient is currently covered with Rocephin to continue. 2. Oropharyngeal candidiasis with elevated white count could be related to steroids. The patient is currently on Eraxis to continue and monitor clinical course closely. MMODL / IJN: [id number] /
[2020-01-18 00:06] LABS: Glucose,Whole Blood 196 mg/dL (75-99)
[2020-01-18] MEDS: methylPREDNISolone SOD SUCCI 125 MG/2 ML VIAL IV SCH ×4 (00:14→17:24)
[2020-01-18] MEDS: METOPROLOL TARTRATE 5 MG/5 ML VIAL IVP SCH ×4 (00:14→17:24)
[2020-01-18] MEDS: INSULIN ASPART (NovoLOG) 100 UNIT/ML VIAL SQ SCH ×5 (00:15→21:14)
[2020-01-18] MEDS: SODIUM CHLORIDE 0.45% 1,000 ML IV SCH ×2 (00:16→09:16)
[2020-01-18 04:22] LABS: Calcium 8.2 mg/dL (8.4-10.2); Potassium 4.6 mmol/L (3.5-5.1)
[2020-01-18 04:28] LABS: HCT 33.5 % (34.0-46.0); HGB 10.6 gm/dL (11.4-16.0); MCH 29.7 pg (25.0-35.0); MCHC 31.5 g/dL (31.0-37.0); MCV 94.3 fL (80.0-100.0); Mean Platelet Volume 10.6; RBC 3.56 m/uL (3.80-5.40); RDW 14.4 % (11.5-15.5); WBC 28.6 k/uL (3.8-10.6)
[2020-01-18 04:29] LABS: Platelet Count 143 k/uL (150-450)
[2020-01-18 05:00] LABS: Glucose,Whole Blood 184 mg/dL (75-99)
[2020-01-18] MEDS: hydrALAZINE HCL 20 MG/ML 1 ML VIAL IVP PRN ×2 (05:09→12:24)
--- NOTE | 2020-01-18 06:55 | XR ---
EXAMINATION TYPE: XR chest 1V portable DATE OF EXAM: 01/18/2020 CLINICAL HISTORY: Difficulty breathing progress study. TECHNIQUE: Single AP portable semiupright view of the chest is obtained. COMPARISON: Chest x-ray from one day earlier and older studies. FINDINGS: Left subclavian central venous catheter redemonstrated. Stable nasogastric tube. Cardiac silhouette size is stable and mildly enlarged with atherosclerotic aorta. Background chronic parenchymal change with diffuse left lung opacity silhouetting left hemidiaphragm. There is less prom inent peripheral right lung opacities redemonstrated. Advanced degenerative change bilateral glenohum eral joints. IMPRESSION: Chronic parenchymal changes and cardiomegaly with multifocal more prominent peripheral le ft greater than right acute infiltrates and probable small left pleural effusion. No significant [place] from most recent x-ray.
[2020-01-18] MEDS: ALBUTEROL HFA INHALER INHALATION PRN ×2 (07:38→11:23)
[2020-01-18] MEDS: ENOXAPARIN 40 MG/0.4 ML SYRINGE SQ SCH ×2 (08:38→21:01)
[2020-01-18 09:09] LABS: Lymphocytes # (M) 0.57 k/uL (1.0-4.8); Neutrophils # (M) 28.03 k/uL (1.3-7.7); Neutrophils % (M) 98 %; Nucleated Red Blood Cells 0 /100 WBC (0-0); Total Cells Counted 100
[2020-01-18] MEDS: ZINC SULFATE 220 MG CAP PO SCH (09:10)
[2020-01-18] MEDS: CHOLECALCIFEROL 1,000 UNIT TAB PO SCH (09:10)
[2020-01-18] MEDS: LIDOCAINE 5% PATCH TOPICAL SCH (09:10)
[2020-01-18] MEDS: ASCORBIC ACID 500 MG TAB PO SCH ×2 (09:10→21:01)
[2020-01-18] MEDS: ASPIRIN 81 MG PO SCH (09:10)
[2020-01-18] MEDS: SENNOSIDES 8.6 MG TAB PO SCH ×2 (09:15→21:02)
[2020-01-18 12:14] LABS: Glucose,Whole Blood 155 mg/dL (75-99)
--- NOTE | 2020-01-18 15:05 | P.PN ---
Subjective Progress Note Date: 01/18/20 Principal diagnosis: Acute hypoxic respiratory failure secondary to covid 19 pneumonitis. A 74-year-old female patient, very poor historian with what seems to be advanced dementia in addition to history of hypertension and hyperlipidemia was coming in for shortness of breath and hypoxemia and this has been confirmed to be related to COVID 19 infection/pneumonia. The patient was transferred from an outside hospital. The patient is unable to give any further history. Review of her chest x-ray shows that the patient is a peripheral patchy pulmonary interstitial airspace disease infiltrates bilaterally and the patient is currently on 8 L of oxygen by nasal cannula to maintain a saturation above 90%. Her current pulse ox is around 93%. The white cell count is at 10.6. The patient also has a renal failure and the chronicity of the renal failure is not established. Her previous creatinine is unknown to me at this point in time. She also has a mild component of anion gap metabolic acidosis with a anion gap of 14 and a serum bicarb level of 17. LDH is 1213 and the patient is a CRP of 301. Also, the patient had a troponin leak with troponin levels being at 0.1 0.1 and 0.2 respectively. Pro calcitonin level was elevated at 1.54. She is afebrile. The blood cultures from the outside hospital showing gram-positive cocci and is not sure if it was in clusters overnight. The patient was started on vancomycin as an empiric antibiotic coverage. In terms of Covid 19 infection, the patient was started on a combination of Decadron and Remdesivir The patient is seen today 01/07/2020 in follow-up on selective care unit. She does have advanced dementia and is a poor historian. She is currently resting fairly comfortably in bed. She is on 8 L high flow nasal cannula to maintain O2 saturations in the 90s. She's afebrile. Hemodynamically stable. White count 27.1. Hemoglobin 12.2. Lymphocytes 0.81. Sodium 139. Potassium 4.2. Bicarb 14. Creatinine 2.06. AST 102. ALT 47. Troponin 0.266. C-reactive protein 192. Pro calcitonin 1.45. She remains on Decadron, vitamin C, vitamin D, zinc. She is receiving day #2 of Remdesivir. On 01/08/2020, the patient has been transferred to the intensive care unit. The patient developed progressive dyspnea tachypnea and hypoxemia overnight and the patient had to be transferred to the intensive care unit. At this point in time, the patient is confused, lethargic, at times agitated, unable to follow any commands and unable to hold a conversation. She gets quite restless when stimulated. She is sensing critical condition on 4 extremities. No neck stiffness. She is moving all 4 extremities and the patient has no focal neurological deficits. No neck stiffness. The patient was noted to have a possible culture an outside hospital and the patient was given vancomycin in addition to Zithromax and Rocephin per IDs recommendation. Nevertheless, based on our cultures, the results are still negative for now and there is no clear evidence of any bacterial infection at this point in time. Noted the Pro calcitonin level was elevated. At the same time, the patient has acute Covid 19 related to pneumonia bilateral. The patient is on high flow oxygen at 15 L with an FiO2 of 73% to maintain a saturation above 90%. A triple lumen catheter was established in the left subclavian. The chest x-ray post line insertion showed no evidence of any pneumothorax. Nevertheless, there was dense bilateral pulmonary infiltrates consistent with coronavirus Covid 19 related pneumonia. The patient is obviously tachypneic. She is having respiratory distress even on high flow oxygen. No use of accessory muscles of breathing. The blood work from today shows a troponin of 0.23. Vancomycin level is at 19.9. The patient a component of non-anion gap metabolic acidosis from yesterday. The patient is a bicarb drip which is running at 100 mL an hour. Serum bicarb is up to 18. Creatinine is down to 1.9, somewhat improved compared to yesterday. At the same time, the patient is being treated with a combination of Decadron, vitamin C, vitamin D, zinc. She is receiving day #3 of Remdesivir. On 01/09/2020, the patient seems to be less agitated as the patient was started on Precedex which is currently running at 0.25 mg per KG per minute. The patient seems to much more comfortable at this point in time. She remains on high flow oxygen 55 L with an FiO2 of 85% with a pulse ox of 96%. The patient's chest x-ray still showing diffuse breath and pulmonary infiltrates. Note that the patient was infected with Covid 19 and she had a Covid 19 related pneumonia in addition to septic shock secondary to Haemophilus influenza bacteremia. Noted the patient's blood culture came back positive for Haemophilus influenza. The patient is currently on IV Rocephin 2 g every 24 hours in regards to this septicemia. The patient is also being treated for coronavirus Covid 19 pneumonia with a combination of Decadron and Remdesivir and the patient also received a unit of, convalescent plasma. The patient has a ferritin level of 3188. The patient has a LDH of 1147 and the CRP is down to 122. The patient is afebrile. Renal function and for the creatinine is down to 1.7. Serum bicarbs of 28 and the patient was being given D5 with 3 A of bicarb at the rate of 100 mL an hour. She is afebrile. She is still moans and at times becomes restless and tremulous. Nevertheless, there is no seizure activity noted and the patient is not able to follow single commands. Which are diffuse. There is peripheral infiltrate in the right and the left. There is somewhat improvement in pulmonary infiltration. Is a left sided subclavian triple-lumen catheter in place. The Pro calcitonin level is down to 1.45. 01/10/2020, the patient remains on Precedex and seems to be quite comfortable at a dose of 0.35 mcg per KG per hour. The patient is also on high flow oxygen at 55 L with an FiO2 of 80%. She is able to maintain a saturation above 90%. The chest x-ray is showing persistent airspace disease throughout the left lung which remains unchanged compared to yesterday. There is also scattered infiltration within the periphery of the right lung which probably have improved on today's evaluation. Note that the patient also had a positive blood culture with Haemophilus influenza. Accordingly, the patient was treated with IV Rocephin 2 g every 24 hours. The Pro calcitonin level is on the decline is currently down to 0.42. Hemodynamically stable and the patient is not requiring any pressors and she is receiving normal saline today to 75 mL an hour. The patient blood work showed a sodium of 147, BUN of 65 with a creatinine of 1.5, and the patient has an LDH of 1789, CRP of 73, and a d-dimer today's at 3.79. 01/11/2020, I'm seeing the patient for a follow-up. Her condition essentially unchanged compared to yesterday. The patient is still requiring Precedex to control her agitation and restlessness pH she remains on Precedex at a dose of 0.4 g per KG per minute. This is able to control her condition quite well. Meanwhile, the patient continues to remain hypoxic respiratory failure. She has required high flow oxygen at 55 L and FiO2 of 60%. The patient is on half- normal saline at the rate of 75 mL an hour. Urine output in the order of 70 mL an hour. Input output balance is positive for 21 mL over the past 24 hours. The patient's renal function with a creatinine of 1.47 which is improved compared to yesterday. Sodium level remains unchanged at 147. Chest x-ray findings are essentially stable with diffuse breath and pulmonary infiltrates consistent with Covid 19 related pneumonia. The patient remains on IV Decadron. The patient remains on IV Rocephin regarding her Haemophilus influenza septicemia. Hemodynamically stable. Maintaining her on blood pressure. She remains on Lovenox 40 mg subcu every 12 hours. Reevaluated today on 01/12/20, remains in the ICU, remains on airvo at 60 L/m flow, and 58% FiO2. O2 sats is 96%. Patient was admitted on 01/04, transferred to the ICU on 01/06. Receiving small dose of Precedex because of extreme a gitation on presentation, patient is on Lovenox Q at 40 mg subcu twice a day, patient is also being treated with Rocephin for presumptive Haemophilus influenza pneumonia. Patient has not been eating, hence I will recommend a nasogastric tube placement and enteral feeding. She will be seen by neurology on consultation as the patient seems to be quite confused. And extremely stiff and rigid. Her CT of the brain showed mild generalized atrophy and air fluid levels in the right sphenoid sinus. Likely secondary to acute sinusitis. Chest x-ray shows bilateral peripheral extensive infiltrates consistent with Covid 19 pneumonitis. On 01/13/2020 patient seen in follow-up in the intensive care unit, she is resting quietly in bed, appears to be in no acute distress, remains on high flow oxygen per Airvo at 45 L/m, with FiO2 of 45%. Her pulse ox currently is 96-98%. Breathing appears to be comfortable, no respiratory distress, she did have a fever spike this morning with a temp of 101.1F, dynamically stable, she receiving 0.45 at 75 ML per hour, NG tube was inserted yesterday for nutritional support and she has Glucerna tube feedings infusing at 20 ML per hour, with a goal of 40. Did water flushes, patient remains confused, however she is not agitated. Denies any significant distress, today's chest x-ray has been reviewed showing patchy and confluent peripheral infiltrates. And worsening airspace disease at the left base. Patient completed her Remdesivir course on 01/10/2020. She received 1 unit of convalescent plasma, is receiving IV Decadron, 6 mg daily, she is on Lovenox at 40 mg twice daily, and her last d- dimer on 01/12/2020 was downtrending and down to 2.89. Her labs have been reviewed today, her white blood cell count is 26.2, hemoglobin is 11.1, sodium is 143, potassium is 4.1, chloride is 112, CO2 is 25, BUN is 67, creatinine is 1.35, renal profile is actually improving, ferritin is 3122, LDH has trended some, and is up to 1778, however her CRP is trending down, and is down to 32.4. Her last Pro calcitonin was downtrending, and was at 0.282 days ago. She is on any medical coverage in the form of Rocephin, ID service is following Patient was reevaluated today on 01/14/20, remains in the intensive care unit, patient is on airvo, requiring FiO2 of 45%, and 40 L flow. Patient feels weak and congested, she has some cough, however unable to clear any secretions. Patient finished her course of remdisivir, she received 1 unit of convalescent plasma, she is presently on Rocephin and Eraxis. Chest x-ray continues to show bilateral infiltrates. White count today is 26.5 hemoglobin is 11.3, d-dimer is 1.79. Renal profile showed a BUN of 68 creatinine 1.41, relatively unchanged over the last few days Reevaluated today on 01/15/20, patient remains in the intensive care unit, she is still on high flow oxygen, basically she is on airvo flow is 40 L/m, and FiO2 is 53%, O2 saturation is only 93%. Patient continues to feel weak, short of lorna ath, she has intermittent cough, but unable to clear secretions. Continues to have leukocytosis with WBC count of 22.1 hemoglobin is 10.8. D-dimer is 1.60. Electrodes are normal BUN is 72 creatinine is 1.45. LDH is 1718 C-reactive protein is 17.8. Ferritin remains elevated at 3230. Chest x-ray continues to show bilateral infiltrates and small left-sided pleural effusion. Not much of a change is noted on her chest x-ray. Patient remains on the Covid 19 cocktail, she is also on Rocephin and on Eraxis. Patient was evaluated today on 01/17/20, remains in the ICU, overall pulmonary status is marginal, continues to have worsening infiltrates in the left lung, remains on 40% FiO2 and 40 L flow via airvo. Patient is also receiving enteral feeding via a nasogastric tube. Surprisingly the patient is holding, she is not getting any better and she is not getting any worse. Chest x-ray again shows significant infiltrate involving the left lung. WBC count today is 17 hemoglobin is 10.5, d-dimer is 1.42. Electrodes are normal renal profile showed a BUN of 72 creatinine of 1.30. Improving over the last few days. Neurologically, the patient is about the same Patient was reevaluated today on 01/17 0, remains in the ICU, remains on high flow airvo FiO2 of 40% and 35 L/m flow. She is saturating at 97%, seems to be a bit more awake today, however she seems to be generally weak and frail, she has extreme difficulty coughing and clearing her secretions. Remains on antibiotics/Rocephin. In addition to her Covid 19 pneumonitis, patient had blood cultures positive for Haemophilus influenzae. Overall the patient is improving, but her improvement seems to be relatively slow. She is generally weak. And I'm a bit concerned about sending the patient out of the ICU yet. Although she has been relatively stable over the last couple of days and her oxygen requirement is getting less nonetheless she still requiring relatively high flow. Basic metabolic profile is normal BUN is 77 creatinine is 1.27, steady improvement considering her creatinine 10 days ago was 2.18 and has been steadily getting better today is the best. Continues to have leukocytosis with WBC count of 28.6 hemoglobin is 10.6. Chest x-ray continues to show significant infiltrate in the left lung, however it is improved compared to previous x-rays. It is steadily showing improvement Objective - Vital Signs Vital signs: Vital Signs Temp 97.3 F L 01/18/20 12:00 Pulse 82 01/18/20 13:11 Resp 26 H 01/18/20 13:11 BP 185/114 01/18/20 13:11 Pulse Ox 98 01/18/20 13:11 Intake & Output 01/17/20 01/18/20 01/18/20 18:59 06:59 18:59 Intake Total 1220 1355 695 Output Total 520 810 334 Balance 700 545 361 Weight 90.2 kg Intake: IV 1100 825 525 Sodium Chloride 0.45% 1, 1100 825 525 000 ml @ 75 mls/hr IV . [id number] ANDREA Rx#:[id number] Intake, IV Titration 50 Amount cefTRIAXone 2 gm In 50 Sodium Chloride 0.9% 50 ml @ 100 mls/hr IVPB Q24HR ANDREA Rx#:[id number] Tube Feeding 120 440 120 Other 90 Output: Urine 520 810 334 Other: Voiding Method Indwelling Catheter Indwelling Catheter Indwelling Catheter - Exam GENERAL: This is a 74-year-old female patient on high flow oxygen, in no distress. Head exam was generally normal. There was no scleral icterus or corneal arcus. Mucous membranes were moist. HEENT: Pupils are round and equally reacting to light. EOMI. No scleral icterus. No conjunctival pallor. Normocephalic, atraumatic. No pharyngeal erythema. No thyromegaly. The patient subclavian triple lumen catheter inserted in left subclavian vein. CARDIOVASCULAR: S1 and S2 present. No murmurs, rubs, or gallops. PULMONARY: Symmetrical chest expansion, rhonchi noted bilaterally. Patient seems to have a very weak cough ABDOMEN: Soft, nontender, nondistended, normoactive bowel sounds. No palpable organomegaly. MUSCULOSKELETAL: No joint swelling or deformity. EXTREMITIES: No cyanosis, clubbing, 1+ bipedal edema. NEUROLOGICAL: Opens eyes, follows simple instructions, seems to be generally weak and frail. SKIN: No rashes. - Labs CBC & Chem 7: 01/18/20 03:55 01/18/20 03:55 Labs: Abnormal Lab Results - Last 24 Hours (Table) 11/01/17/20 01/18/20 Range/Units 18:26 20:26 00:05 WBC (3.8-10.6) k/uL RBC (3.80-5.40) m/uL Hgb (11.4-16.0) gm/dL Hct (34.0-46.0) % Plt Count (150-450) k/uL Neutrophils # (Manual) (1.3-7.7) k/uL Lymphocytes # (Manual) (1.0-4.8) k/uL Sodium (137-145) mmol/L Chloride (98-107) mmol/L BUN (7-17) mg/dL Creatinine (0.52-1.04) mg/dL Glucose (74-99) mg/dL POC Glucose (mg/dL) 195 H 186 H 196 H (75-99) mg/dL Calcium (8.4-10.2) mg/dL 01/18/20 01/18/20 01/18/20 Range/Units 03:55 03:55 04:58 WBC 28.6 H (3.8-10.6) k/uL RBC 3.56 L (3.80-5.40) m/uL Hgb 10.6 L (11.4-16.0) gm/dL Hct 33.5 L (34.0-46.0) % Plt Count 143 L D (150-450) k/uL Neutrophils # (Manual) 28.03 H (1.3-7.7) k/uL Lymphocytes # (Manual) 0.57 L (1.0-4.8) k/uL Sodium 136 L (137-145) mmol/L Chloride 108 H (98-107) mmol/L BUN 77 H (7-17) mg/dL Creatinine 1.27 H (0.52-1.04) mg/dL Glucose 167 H (74-99) mg/dL POC Glucose (mg/dL) 184 H (75-99) mg/dL Calcium 8.2 L (8.4-10.2) mg/dL 01/18/20 Range/Units 12:12 WBC (3.8-10.6) k/uL RBC (3.80-5.40) m/uL Hgb (11.4-16.0) gm/dL Hct (34.0-46.0) % Plt Count (150-450) k/uL Neutrophils # (Manual) (1.3-7.7) k/uL Lymphocytes # (Manual) (1.0-4.8) k/uL Sodium (137-145) mmol/L Chloride (98-107) mmol/L BUN (7-17) mg/dL Creatinine (0.52-1.04) mg/dL Glucose (74-99) mg/dL POC Glucose (mg/dL) 155 H (75-99) mg/dL Calcium (8.4-10.2) mg/dL Assessment and Plan Assessment: Impression: Acute hypoxic respiratory failure Acute covid 19 pneumonitis Acute bacteremia secondary to Haemophilus influenza Underlying Haemophilus influenza pneumonia is not entirely ruled out. Acute kidney injury Acute toxic metabolic encephalopathy secondary to above. Hypertension. Dyslipidemia. Altered mental status/encephalopathy as noted above felt to be toxic metabolic encephalopathy secondary to Covid 19 pneumonitis, improving over the last few days Recommendation: Continue high flow oxygen and high FiO2. Titrate accordingly maintain O2 sat uration above 90%. Continue Decadron. Continue antibiotics presently on Rocephin for Haemophilus influenza sepsis and elevated pro calcitonin. Continue Lovenox 40 mg twice a day. Continue GI and DVT prophylaxis. We'll continue to monitor in the ICU possible transfer to a regular medical floor tomorrow. Time with Patient: Less than 30
--- NOTE | 2020-01-18 17:12 | P.PN ---
Subjective Progress Note Date: 01/18/20 Principal diagnosis: Acute hypoxic respiratory failure: secondary to covid 19 pneumonia Secondary bacterial pneumonia Bacteremia with Haemophilus influenza Acute renal failure/chronic kidney disease Elevated troponin secondary to infection and renal failure 74-year-old female is admitted for hypoxia elevated troponins found to have positive Covid. Patient was transferred from outside hospital. Patient at baseline apparently is awake and alert. Patient is oriented 1 at this time. Patient did have fever and shortness of breath because of which patient was sent in here. Patient has elevated urine creatinine of 2.5 baseline is not available but patient apparently has chronic kidney disease. Does follow with a associate financial representative as an outpatient. Patient is found to have mildly elevated troponins of 0.2-3. Patient denied any chest pain although patient is extremely poor historian because of her confusion and hearing problems. His blood cult ures from the other hospital came back positive for gram-positive cocci unsure whether it's clusters sore repairs. Patient will be started on vancomycin infectious disease will be consulted may need tube be switched to daptomycin, considering her kidney function. 01/17/2020, Patient remains in the ICU, overall pulmonary status is marginal, continues to have worsening infiltrates in the left lung, remains on 40% FiO2 and 40 L flow via airvo. Patient is also receiving enteral feeding via a nasogastric tube. Surprisingly the patient is holding, she is not getting any better and she is not getting any worse. Chest x-ray again shows significant infiltrate involving the left lung. WBC count today is 17 hemoglobin is 10.5, d-dimer is 1.42. Electrodes are normal renal profile showed a BUN of 72 creatinine of 1.30. Improving over the last few days. Neurologically, the patient is about the same 01/18/2020, Patient remains in the ICU, on high flow airvo FiO2 of 40% and 35 L/m flow, saturating at 97%, seems to be a bit more awake today, however she seems to be generally weak. Remains on antibiotics/Rocephin. In addition to her Covid 19 pneumonitis, patient had blood cultures positive for Haemophilus influenzae. Overall the pa tient is improving, but her improvement seems to be relatively slow. Basic metabolic profile is normal BUN is 77 creatinine is 1.27, steady improvement. Continues to have leukocytosis with WBC count of 28.6 hemoglobin is 10.6. Chest x-ray continues to show significant infiltrate in the left lung, however it is improved compared to previous x-rays. Objective - Vital Signs Vital signs: Vital Signs Temp 97.3 F L 01/18/20 16:00 Pulse 85 01/18/20 16:00 Resp 24 01/18/20 16:00 BP 164/81 01/18/20 16:00 Pulse Ox 97 01/18/20 16:00 Intake & Output 01/17/20 01/18/20 01/18/20 18:59 06:59 18:59 Intake Total 1220 1355 960 Output Total 520 810 472 Balance 700 545 488 Weight 90.2 kg Intake: IV 1100 825 750 Sodium Chloride 0.45% 1, 1100 825 750 000 ml @ 75 mls/hr IV . [id number] ANDREA Rx#:[id number] Intake, IV Titration 50 Amount cefTRIAXone 2 gm In 50 Sodium Chloride 0.9% 50 ml @ 100 mls/hr IVPB Q24HR ANDREA Rx#:[id number] Tube Feeding 120 440 160 Other 90 Output: Urine 520 810 472 Other: Voiding Method Indwelling Catheter Indwelling Catheter Indwelling Catheter - Exam GENERAL: Drowsy arousable, not in any acute distress. Well developed, well nourished. Patient has nonessential tremor, possibility of myoclonus, much better. HEENT: Pupils are round and equally reacting to light. EOMI. No scleral icterus. No conjunctival pallor. Normocephalic, atraumatic. No pharyngeal erythema. No thyromegaly. CARDIOVASCULAR: S1 and S2 present. No murmurs, rubs, or gallops. PULMONARY: Bilateral crackles and rhonchi diffusely ABDOMEN: Soft, nontender, nondistended, normoactive bowel sounds. No palpable organomegaly. MUSCULOSKELETAL: No joint swelling or deformity. EXTREMITIES: No cyanosis, clubbing, or pedal edema. NEUROLOGICAL: Gross neurological examination did not reveal any focal deficits. - Labs CBC & Chem 7: 01/18/20 03:55 01/18/20 03:55 Labs: Abnormal Lab Results - Last 24 Hours (Table) 01/17/20 01/17/20 01/18/20 Range/Units 18:26 20:26 00:05 WBC (3.8-10.6) k/uL RBC (3.80-5.40) m/uL Hgb (11.4-16.0) gm/dL Hct (34.0-46.0) % Plt Count (150-450) k/uL Neutrophils # (Manual) (1.3-7.7) k/uL Lymphocytes # (Manual) (1.0-4.8) k/uL Sodium (137-145) mmol/L Chloride (98-107) mmol/L BUN (7-17) mg/dL Creatinine (0.52-1.04) mg/dL Glucose (74-99) mg/dL POC Glucose (mg/dL) 195 H 186 H 196 H (75-99) mg/dL Calcium (8.4-10.2) mg/dL 01/18/20 01/18/20 01/18/20 Range/Units 03:55 03:55 04:58 WBC 28.6 H (3.8-10.6) k/uL RBC 3.56 L (3.80-5.40) m/uL Hgb 10.6 L (11.4-16.0) gm/dL Hct 33.5 L (34.0-46.0) % Plt Count 143 L D (150-450) k/uL Neutrophils # (Manual) 28.03 H (1.3-7.7) k/uL Lymphocytes # (Manual) 0.57 L (1.0-4.8) k/uL Sodium 136 L (137-145) mmol/L Chloride 108 H (98-107) mmol/L BUN 77 H (7-17) mg/dL Creatinine 1.27 H (0.52-1.04) mg/dL Glucose 167 H (74-99) mg/dL POC Glucose (mg/dL) 184 H (75-99) mg/dL Calcium 8.2 L (8.4-10.2) mg/dL 01/18/20 Range/Units 12:12 WBC (3.8-10.6) k/uL RBC (3.80-5.40) m/uL Hgb (11.4-16.0) gm/dL Hct (34.0-46.0) % Plt Count (150-450) k/uL Neutrophils # (Manual) (1.3-7.7) k/uL Lymphocytes # (Manual) (1.0-4.8) k/uL Sodium (137-145) mmol/L Chloride (98-107) mmol/L BUN (7-17) mg/dL Creatinine (0.52-1.04) mg/dL Glucose (74-99) mg/dL POC Glucose (mg/dL) 155 H (75-99) mg/dL Calcium (8.4-10.2) mg/dL Assessment and Plan Assessment: -Acute hypoxic respiratory failure: secondary to covid 19 pneumonia. Patient was started on Decadron and completed Remdesivir patient is presently on a 45L of oxygen via Airvo. continue with NG tube feedings with Glucerna. Patient was started on antifungals cussing that she has fever on antibiotics. Patient has worsening leukocytosis as well and patient is being followed by infectious disease - secondary bacterial pneumonia , patient has bacteremia with Haemophilus influenza, patient is on Rocephin presently. Repeat blood cultures are negative - bacteremia: -Toxic encephalopathy, altered mental status: Secondary to infection, EKG did not show any seizure activity patient still has some tremors -Elevated troponin secondary to infection and renal failure -Possible Acute renal failure patient does have chronic kidney disease unable to stage chronic kidney disease is at baseline is not known. Patient will continued on IV fluids once serum creatinine can you to improve -Hypertension: Patient is presently on clonidine patch. -Hyperlipidemia Possible myoclonus: Secondary to encephalopathy, neurology evaluated the patient. -DVT prophylaxis with heparin
[2020-01-18 17:19] LABS: Glucose,Whole Blood 153 mg/dL (75-99)
[2020-01-18] MEDS: ANIDULAFUNGIN 100 MG in SODIUM CHLORIDE 0.9% 100 ML IVPB SCH (21:01)
[2020-01-18 21:08] LABS: Glucose,Whole Blood 189 mg/dL (75-99)
[2020-01-18] MEDS: INSULIN DETEMIR (LEVEMIR) 100 UNIT/ML SYR SQ SCH (21:10)
[2020-01-19 00:29] LABS: Glucose,Whole Blood 167 mg/dL (75-99)
[2020-01-19 01:46] LABS: Glucose,Whole Blood 152 mg/dL (75-99)
[2020-01-19] MEDS: methylPREDNISolone SOD SUCCI 125 MG/2 ML VIAL IV SCH ×3 (01:52→20:21)
[2020-01-19] MEDS: METOPROLOL TARTRATE 5 MG/5 ML VIAL IVP SCH ×4 (01:53→18:28)
[2020-01-19] MEDS: INSULIN ASPART (NovoLOG) 100 UNIT/ML VIAL SQ SCH ×4 (01:54→18:28)
--- NOTE | 2020-01-19 04:28 | PN ---
PROGRESS NOTE DATE OF SERVICE: 01/18/2020 REASON FOR FOLLOW UP: 1. Haemophilus bacteremia pneumonia. 2. Oropharyngeal candidiasis. INTERVAL HISTORY: The patient is currently afebrile. The patient is hemodynamically stable. She is slightly more awake, alert, breathing comfortably. Has been tolerating her tube feeds and no diarrhea reported. The patient is unable to provide any history. PHYSICAL EXAMINATION: Blood pressure 137/54 with a pulse of 80, temperature 97.4. She is 96% on 40% FiO2. General description is an elderly female lying in bed in no distress. Respiratory system: Unlabored breathing, decreased breath sounds in the bases, no wheeze. Heart S1, S2. Regular rate and rhythm. Abdomen soft, no tenderness. LABS: Hemoglobin is 10.2, hematocrit 28.6 with a BUN of 7, creatinine 1.07. Blood culture repeat has been negative so far. Chest x-ray focal peripheral infiltrate . DIAGNOSTIC IMPRESSION AND PLAN: 1. Patient with acute respiratory failure which is multifactorial. This patient did have a component of Haemophilus bacteremia, likely pneumonia. Repeat blood culture has been negative. Patient is currently on Rocephin for two week course of therapy. 2. Elevated white count, multifactorial, possible steroid effect and a question of oropharyngeal candidiasis , covered with Eraxis and will monitor closely. MMODL / IJN: [id number] / BIN
[2020-01-19 04:53] LABS: HCT 31.2 % (34.0-46.0); MCH 29.9 pg (25.0-35.0); MCHC 32.1 g/dL (31.0-37.0); MCV 93.3 fL (80.0-100.0); Mean Platelet Volume 10.7; Platelet Count 113 k/uL (150-450); RBC 3.34 m/uL (3.80-5.40); RDW 14.6 % (11.5-15.5); WBC 24.1 k/uL (3.8-10.6)
[2020-01-19 05:08] LABS: Band Neutrophils % 1 %; Lymphocytes # (M) 0.24 k/uL (1.0-4.8); Neutrophils % (M) 98 %; Nucleated Red Blood Cells 0 /100 WBC (0-0); Total Cells Counted 100
[2020-01-19 05:09] LABS: Hypersegmented Neutrophils Present
[2020-01-19 05:36] LABS: Glucose,Whole Blood 146 mg/dL (75-99)
[2020-01-19 05:41] LABS: Calcium 7.9 mg/dL (8.4-10.2); Potassium 4.4 mmol/L (3.5-5.1)
[2020-01-19] MEDS: hydrALAZINE HCL 20 MG/ML 1 ML VIAL IVP PRN (05:54)
--- NOTE | 2020-01-19 07:33 | XR ---
EXAMINATION TYPE: XR chest 1V portable DATE OF EXAM: 01/19/2020 Comparison: 01/18/2020 Clinical History: 75-year-old female shortness of breath Findings: NG tube is present. Left subclavian CVC tip at the lower SVC. Heart borderline in size. Patchy inters titial infiltrates left mid lung and at the periphery of the right lung. Small left pleural effusion persists. Impression: Overall stable left greater than right peripheral interstitial infiltrates and small left effusion.
[2020-01-19 08:06] LABS: D-Dimer 1.23 mg/L FEU (<0.60)
[2020-01-19 08:08] LABS: Creatine Kinase 37 U/L (30-135); LDH 1241 U/L (313-618)
[2020-01-19] MEDS: ASCORBIC ACID 500 MG TAB PO SCH ×2 (08:49→20:21)
[2020-01-19] MEDS: ENOXAPARIN 40 MG/0.4 ML SYRINGE SQ SCH ×2 (08:49→20:21)
[2020-01-19] MEDS: CHOLECALCIFEROL 1,000 UNIT TAB PO SCH (08:49)
[2020-01-19] MEDS: ASPIRIN 81 MG PO SCH (08:49)
[2020-01-19] MEDS: LIDOCAINE 5% PATCH TOPICAL SCH (08:50)
[2020-01-19] MEDS: ZINC SULFATE 220 MG CAP PO SCH (08:50)
[2020-01-19] MEDS: SENNOSIDES 8.6 MG TAB PO SCH ×2 (08:50→20:21)
[2020-01-19 09:02] LABS: C Reactive Protein <5.0 mg/L (<10.0)
[2020-01-19] MEDS ORDERED: FUROSEMIDE 10 MG/ML 4 ML VIAL IV STA (11:34)
[2020-01-19] MEDS ORDERED: HALOPERIDOL LACTATE 5 MG/ML 1 ML VIAL IVP PRN (11:35)
[2020-01-19 12:10] LABS: Glucose,Whole Blood 185 mg/dL (75-99)
[2020-01-19] MEDS: SODIUM CHLORIDE 0.45% 1,000 ML IV SCH (12:13)
--- NOTE | 2020-01-19 15:22 | P.PN ---
Subjective Progress Note Date: 01/19/20 Principal diagnosis: COVID 19 pneumonia A 74-year-old female patient, very poor historian with what seems to be advanced dementia in addition to history of hypertension and hyperlipidemia was coming in for shortness of breath and hypoxemia and this has been confirmed to be related to COVID 19 infection/pneumonia. The patient was transferred from an outside hospital. The patient is unable to give any further history. Review of her chest x-ray shows that the patient is a peripheral patchy pulmonary interstitial airspace disease infiltrates bilaterally and the patient is currently on 8 L of oxygen by nasal cannula to maintain a saturation above 90%. Her current pulse ox is around 93%. The white cell count is at 10.6. The patient also has a renal failure and the chronicity of the renal failure is not established. Her previous creatinine is unknown to me at this point in time. She also has a mild component of anion gap metabolic acidosis with a anion gap of 14 and a serum bicarb level of 17. LDH is 1213 and the patient is a CRP of 301. Also, the patient had a troponin leak with troponin levels being at 0.1 0.1 and 0.2 respectively. Pro calcitonin level was elevated at 1.54. She is afebrile. The blood cultures from the outside hospital showing gram-positive cocci and is not sure if it was in clusters overnight. The patient was started on vancomycin as an empiric antibiotic coverage. In terms of Covid 19 infection, the patient was started on a combination of Decadron and Remdesivir The patient is seen today 01/07/2020 in follow-up on selective care unit. She does have advanced dementia and is a poor historian. She is currently resting fairly comfortably in bed. She is on 8 L high flow nasal cannula to maintain O2 saturations in the 90s. She's afebrile. Hemodynamically stable. White count 27.1. Hemoglobin 12.2. Lymphocytes 0.81. Sodium 139. Potassium 4.2. Bicarb 14. Creatinine 2.06. AST 102. ALT 47. Troponin 0.266. C-reactive protein 192. Pro calcitonin 1.45. She remains on Decadron, vitamin C, vitamin D, zinc. She is receiving day #2 of Remdesivir. On 01/08/2020, the patient has been transferred to the intensive care unit. The patient developed progressive dyspnea tachypnea and hypoxemia overnight and the patient had to be transferred to the intensive care unit. At this point in time, the patient is confused, lethargic, at times agitated, unable to follow any commands and unable to hold a conversation. She gets quite restless when stimulated. She is sensing critical condition on 4 extremities. No neck stiffness. She is moving all 4 extremities and the patient has no focal neurological deficits. No neck stiffness. The patient was noted to have a possible culture an outside hospital and the patient was given vancomycin in addition to Zithromax and Rocephin per IDs recommendation. Nevertheless, based on our cultures, the results are still negative for now and there is no clear evidence of any bacterial infection at this point in time. Noted the Pro calcitonin level was elevated. At the same time, the patient has acute Covid 19 related to pneumonia bilateral. The patient is on high flow oxygen at 15 L with an FiO2 of 73% to maintain a saturation above 90%. A triple lumen catheter was established in the left subclavian. The chest x-ray post line insertion showed no evidence of any pneumothorax. Nevertheless, there was dense bilateral pulmonary infiltrates consistent with coronavirus Covid 19 related pneumonia. The patient is obviously tachypneic. She is having respiratory distress even on high flow oxygen. No use of accessory muscles of breathing. The blood work from today shows a troponin of 0.23. Vancomycin level is at 19.9. The patient a component of non-anion gap metabolic acidosis from yesterday. The patient is a bicarb drip which is running at 100 mL an hour. Serum bicarb is up to 18. Creatinine is down to 1.9, somewhat improved compared to yesterday. At the same time, the patient is being treated with a combination of Decadron, vitamin C, vitamin D, zinc. She is receiving day #3 of Remdesivir. On 01/09/2020, the patient seems to be less agitated as the patient was started on Precedex which is currently running at 0.25 mg per KG per minute. The patient seems to much more comfortable at this point in time. She remains on high flow oxygen 55 L with an FiO2 of 85% with a pulse ox of 96%. The patient's chest x-ray still showing diffuse breath and pulmonary infiltrates. Note that the patient was infected with Covid 19 and she had a Covid 19 related pneumonia in addition to septic shock secondary to Haemophilus influenza bacteremia. No elbert the patient's blood culture came back positive for Haemophilus influenza. The patient is currently on IV Rocephin 2 g every 24 hours in regards to this septicemia. The patient is also being treated for coronavirus Covid 19 pneumonia with a combination of Decadron and Remdesivir and the patient also received a unit of, convalescent plasma. The patient has a ferritin level of 3188. The patient has a LDH of 1147 and the CRP is down to 122. The patient is afebrile. Renal function and for the creatinine is down to 1.7. Serum bicarbs of 28 and the patient was being given D5 with 3 A of bicarb at the rate of 100 mL an hour. She is afebrile. She is still moans and at times becomes restless and tremulous. Nevertheless, there is no seizure activity noted and the patient is not able to follow single commands. Which are diffuse. There is peripheral infiltrate in the right and the left. There is somewhat improvement in pulmonary infiltration. Is a left sided subclavian triple-lumen catheter in place. The Pro calcitonin level is down to 1.45. 01/10/2020, the patient remains on Precedex and seems to be quite comfortable at a dose of 0.35 mcg per KG per hour. The patient is also on high flow oxygen at 55 L with an FiO2 of 80%. She is able to maintain a saturation above 90%. The chest x-ray is showing persistent airspace disease throughout the left lung which remains unchanged compared to yesterday. There is also scattered infiltration within the periphery of the right lung which probably have improved on today's evaluation. Note that the patient also had a positive blood culture with Haemophilus influenza. Accordingly, the patient was treated with IV Rocephin 2 g every 24 hours. The Pro calcitonin level is on the decline is currently down to 0.42. Hemodynamically stable and the patient is not requiring any pressors and she is receiving normal saline today to 75 mL an hour. The patient blood work showed a sodium of 147, BUN of 65 with a creatinine of 1.5, and the patient has an LDH of 1789, CRP of 73, and a d-dimer today's at 3.79. 01/11/2020, I'm seeing the patient for a follow-up. Her condition essentially unchanged compared to yesterday. The patient is still requiring Precedex to control her agitation and restlessness pH she remains on Precedex at a dose of 0.4 g per KG per minute. This is able to control her condition quite well. Meanwhile, the patient continues to remain hypoxic respiratory failure. She has required high flow oxygen at 55 L and FiO2 of 60%. The patient is on half- normal saline at the rate of 75 mL an hour. Urine output in the order of 70 mL an hour. Input output balance is positive for 21 mL over the past 24 hours. The patient's renal function with a creatinine of 1.47 which is improved compared to yesterday. Sodium level remains unchanged at 147. Chest x-ray findings are essentially stable with diffuse breath and pulmonary infiltrates consistent with Covid 19 related pneumonia. The patient remains on IV Decadron. The patient remains on IV Rocephin regarding her Haemophilus influenza septicemia. Hemodynamically stable. Maintaining her on blood pressure. She remains on Lovenox 40 mg subcu every 12 hours. Reevaluated today on 01/12/20, remains in the ICU, remains on airvo at 60 L/m flow, and 58% FiO2. O2 sats is 96%. Patient was admitted on 01/04, transferred to the ICU on 01/06. Receiving small dose of Precedex because of extreme agitation on presentation, patient is on Lovenox Q at 40 mg subcu twice a day, patient is also being treated with Rocephin for presumptive Haemophilus influenza pneumonia. Patient has not been eating, hence I will recommend a nasogastric tube placement and enteral feeding. She will be seen by neurology on consultation as the patient seems to be quite confused. And extremely stiff and rigid. Her CT of the brain showed mild generalized atrophy and air fluid levels in the right sphenoid sinus. Likely secondary to acute sinusitis. Chest x-ray shows bilateral peripheral extensive infiltrates consistent with Covid 19 pneumonitis. On 01/13/2020 patient seen in follow-up in the intensive care unit, she is resting quietly in bed, appears to be in no acute distress, remains on high flow oxygen per Airvo at 45 L/m, with FiO2 of 45%. Her pulse ox currently is 96-98%. Breathing appears to be comfortable, no respiratory distress, she did have a fever spike this morning with a temp of 101.1F, dynamically stable, she receiving 0.45 at 75 ML per hour, NG tube was inserted yesterday for nutritional support and she has Glucerna tube feedings infusing at 20 ML per hour, with a goal of 40. Did water flushes, patient remains confused, however she is not agitated. Denies any significant distress, today's chest x-ray has been reviewed showing patchy and confluent peripheral infiltrates. And worsening airspace disease at the left base. Patient completed her Remdesivir course on 01/10/2020. She received 1 unit of convalescent plasma, is receiving IV Decadron, 6 mg daily, she is on Lovenox at 40 mg twice daily, and her last d- dimer on 01/12/2020 was downtrending and down to 2.89. Her labs have been reviewed today, her white blood cell count is 26.2, hemoglobin is 11.1, sodium is 143, potassium is 4.1, chloride is 112, CO2 is 25, BUN is 67, creatinine is 1.35, renal profile is actually improving, ferritin is 3122, LDH has trended some, and is up to 1778, however her CRP is trending down, and is down to 32.4. Her last Pro calcitonin was downtrending, and was at 0.282 days ago. She is on any medical coverage in the form of Rocephin, ID service is following On 01/19/2020 patient seen in follow-up in the intensive care unit, she remains on high flow oxygen per Airvo at 35 L/m, and FiO2 of 50% with a pulse ox of 94%, she is afebrile, hemodynamically she stable, she is on 0.45 normal seen at a rate of 75 ML per hour, she receiving nutritional support via NG tube with the Glucerna 1.2 at a rate of 40 mL an hour, tolerating tube feedings well. She remains confused, and lethargic most of the time, neurology is following, and patient is no sweats toxic metabolic encephalopathy. Today's chest x-ray has been reviewed showing stable left greater than the right peripheral interstitial infiltrates and small left pleural effusion. She is status post Remdesivir, 1 unit of fresh frozen convalescent plasma, remains on high-dose IV steroids at 60 mg every 6 hours. Pneumatics no form of Rocephin and he relaxes, ID service is following. Blood culture from 01/07/2020 was found to be positive for Haemophilus influenza, follow blood culture has been negative, urine culture came back negative. His labs have been reviewed, showing white blood cell count of 24.1, hemoglobin of 10, sodium 135, demonstrate electrolytes were within normal limits, BUN of 83 and creatinine of 1.31. Profile is relatively stable. Objective - Vital Signs Vital signs: Vital Signs Temp 98.2 F 01/19/20 12:00 Pulse 79 01/19/20 14:00 Resp 23 01/19/20 14:00 BP 162/88 01/19/20 14:00 Pulse Ox 94 L 01/19/20 15:05 Intake & Output 01/18/20 01/19/20 01/19/20 18:59 06:59 18:59 Intake Total 1185 1325 670 Output Total 572 410 280 Balance 613 915 390 Weight 90.5 kg 90.5 kg Intake: IV 975 825 340 Sodium Chloride 0.45% 1, 975 825 340 000 ml @ 20 mls/hr IV . Q24H ANDREA Rx#:[id number] Intake, IV Titration 50 Amount cefTRIAXone 2 gm In 50 Sodium Chloride 0.9% 50 ml @ 100 mls/hr IVPB Q24HR ANDREA Rx#:[id number] Tube Feeding 160 440 240 Other 60 90 Output: Urine 572 410 280 Other: Voiding Method Indwelling Catheter Indwelling Catheter Indwelling Catheter - Exam GENERAL EXAM: Alert, confused, but not agitated, 75-year-old white female, on high flow oxygen per Airvo group at 35 L/m, and FiO2 of 50% with a pulse ox of 94% comfortable in no apparent distress. HEAD: Normocephalic/atraumatic. EYES: Normal reaction of pupils, equal size. Conjunctiva pink, sclera white. NOSE: Clear with pink turbinates. THROAT: No erythema or exudates. NECK: No masses, no JVD, no thyroid enlargement, no adenopathy. CHEST: No chest wall deformity. Symmetrical expansion. LUNGS: Equal air entry with no crackles, wheeze, rhonchi or dullness. CVS: Regular rate and rhythm, normal S1 and S2, no gallops, no murmurs, no rubs ABDOMEN: Soft, nontender. No hepatosplenomegaly, normal bowel sounds, no guarding or rigidity. EXTREMITIES: No clubbing, no edema, no cyanosis, 2+ pulses and upper and lower extremities. MUSCULOSKELETAL: Muscle strength and tone normal. SPINE: No scoliosis or deformity SKIN: No rashes CENTRAL NERVOUS SYSTEM: Confused, but not agitated No focal deficits, tone is normal in all 4 extremities. - Labs CBC & Chem 7: 01/19/20 04:30 01/19/20 04:30 Labs: Abnormal Lab Results - Last 24 Hours (Table) 01/18/20 01/18/20 01/19/20 Range/Units 17:17 21:06 00:27 WBC (3.8-10.6) k/uL RBC (3.80-5.40) m/uL Hgb (11.4-16.0) gm/dL Hct (34.0-46.0) % Plt Count (150-450) k/uL Neutrophils # (Manual) (1.3-7.7) k/uL Lymphocytes # (Manual) (1.0-4.8) k/uL D-Dimer (<0.60) mg/L FEU Sodium (137-145) mmol/L BUN (7-17) mg/dL Creatinine (0.52-1.04) mg/dL Glucose (74-99) mg/dL POC Glucose (mg/dL) 153 H 189 H 167 H (75-99) mg/dL Calcium (8.4-10.2) mg/dL Lactate Dehydrogenase (313-618) U/L 01/19/20 01/19/20 01/19/20 Range/Units 01:44 04:30 04:30 WBC 24.1 H (3.8-10.6) k/uL RBC 3.34 L (3.80-5.40) m/uL Hgb 10.0 L (11.4-16.0) gm/dL Hct 31.2 L (34.0-46.0) % Plt Count 113 L (150-450) k/uL Neutrophils # (Manual) 23.80 H (1.3-7.7) k/uL Lymphocytes # (Manual) 0.24 L (1.0-4.8) k/uL D-Dimer (<0.60) mg/L FEU Sodium 135 L (137-145) mmol/L BUN 83 H (7-17) mg/dL Creatinine 1.31 H (0.52-1.04) mg/dL Glucose 134 H (74-99) mg/dL POC Glucose (mg/dL) 152 H (75-99) mg/dL Calcium 7.9 L (8.4-10.2) mg/dL Lactate Dehydrogenase (313-618) U/L 01/19/20 01/19/20 01/19/20 Range/Units 05:34 07:35 07:35 WBC (3.8-10.6) k/uL RBC (3.80-5.40) m/uL Hgb (11.4-16.0) gm/dL Hct (34.0-46.0) % Plt Count (150-450) k/uL Neutrophils # (Manual) (1.3-7.7) k/uL Lymphocytes # (Manual) (1.0-4.8) k/uL D-Dimer 1.23 H (<0.60) mg/L FEU Sodium (137-145) mmol/L BUN (7-17) mg/dL Creatinine (0.52-1.04) mg/dL Glucose (74-99) mg/dL POC Glucose (mg/dL) 146 H (75-99) mg/dL Calcium (8.4-10.2) mg/dL Lactate Dehydrogenase 1241 H (313-618) U/L 01/19/20 Range/Units 12:09 WBC (3.8-10.6) k/uL RBC (3.80-5.40) m/uL Hgb (11.4-16.0) gm/dL Hct (34.0-46.0) % Plt Count (150-450) k/uL Neutrophils # (Manual) (1.3-7.7) k/uL Lymphocytes # (Manual) (1.0-4.8) k/uL D-Dimer (<0.60) mg/L FEU Sodium (137-145) mmol/L BUN (7-17) mg/dL Creatinine (0.52-1.04) mg/dL Glucose (74-99) mg/dL POC Glucose (mg/dL) 185 H (75-99) mg/dL Calcium (8.4-10.2) mg/dL Lactate Dehydrogenase (313-618) U/L Assessment and Plan Plan: Assessment: #1. Acute hypoxemic respiratory failure related to acute COVID 19 pneumonia, has completed a course of Remdesivir, and received 1 unit of convalescent plasma in addition to IV steroids #2. Haemophilus influenza bacteremia likely related to pneumonia, community- acquired, patient is on Rocephin for antibiotic coverage. A low blood culture and sputum culture have shown no growth #3. Acute kidney injury, improved since admission #4. Acute toxic metabolic encephalopathy secondary to the above #5. Hypertension #6. Dyslipidemia #7. Altered mental status/encephalopathy related to toxic metabolic encephalopathy #8. Elevated troponin secondary to infection and acute kidney injury Plan: Continue current medical treatment, continue antibiotics per ID service recommendations, patient has completed a course of Remdesivir, received 1 unit of convalescent plasma, and has been on IV steroids. Signs have been stable, she's been afebrile, hemodynamically stable, seems to be fluid overloaded, we'll discontinue the IV fluids, will give the patient 1 dose of IV Lasix, continue with current dose of subcutaneous Lovenox, will cut back the IV steroids to 60 mg every 12 hours, weaning FiO2, however her mentation has not much improved, although she is able to respond, for the most part she remains lethargic and confused. Renal profile has improved since admission. We'll continue to follow electrolytes and renal profile and daily labs. Continue nutritional support, maintain aspiration precautions. Patient has not made significant improvement overall, still requiring high flow oxygen, and still having altered mental status, her overall prognosis is poor, her CODE STATUS needs to be addressed with her family, and our recommendation is for the patient to be DO NOT RESUSCITATE, with the understanding we will continue with the supportive care. I performed a history & physical examination of the patient and discussed their management with my nurse practitioner, Anna Brown. I reviewed the nurse practitioner's note and agree with the documented findings and plan of care. Lung sounds are positive for diminished breath sounds The findings and the impression was discussed with the patient. I attest to the documentation by the nurse practitioner. Time with Patient: Greater than 30
[2020-01-19 16:21] LABS: Ferritin 2583.3 ng/mL (10.0-291.0)
--- NOTE | 2020-01-19 18:07 | P.PN ---
Subjective Progress Note Date: 01/19/20 The patient was seen at bedside and the neurology she remained stable. There is no events over the weekend. He continues to cough. Objective - Vital Signs Vital signs: Vital Signs Temp 98 F 01/19/20 16:00 Pulse 81 01/19/20 16:00 Resp 11 L 01/19/20 16:00 BP 148/86 01/19/20 16:00 Pulse Ox 92 L 01/19/20 16:00 Intake & Output 01/18/20 01/19/20 01/19/20 18:59 06:59 18:59 Intake Total 1185 1325 1000 Output Total 572 410 830 Balance 613 915 170 Weight 90.5 kg 90.5 kg Intake: IV 975 825 440 Sodium Chloride 0.45% 1, 975 825 440 000 ml @ 20 mls/hr IV . Q24H ANDREA Rx#:[id number] Intake, IV Titration 50 Amount cefTRIAXone 2 gm In 50 Sodium Chloride 0.9% 50 ml @ 100 mls/hr IVPB Q24HR ANDREA Rx#:[id number] Tube Feeding 160 440 440 Other 60 120 Output: Urine 572 410 830 Other: Voiding Method Indwelling Catheter Indwelling Catheter Indwelling Catheter - Exam General: Appers to be in mild distress. Lung: She sounds congested throughout. She is having frequent episodes of coughing. Not in labored breathing Neurological: Patient is awake, alert, oriented to self. She was able to follow few simple commands such as showing a thumbs up on both hands and closing and opening eyes to voice. Pupils are 3-4 mm bilaterally and reactive to light. She is tracking me thro ughout the room and no nystagmus noted throughout. No facial weakness noted bilaterally. Motor: Could not assess because of condition. She was able to lift bilateral upper extremities above gravity. She was able to plantarflex and extend her ankles antigravity bilaterally. She is has mild increased tone of all extremities. No spontaneous movement or tremors seen. Sensation: Grimaces faces with painful stimuli. Reflexes are 1 throughout. Genderalized Edema. - Labs CBC & Chem 7: 01/19/20 04:30 01/19/20 04:30 Labs: Abnormal Lab Results - Last 24 Hours (Table) 01/18/20 01/19/20 01/19/20 Range/Units 21:06 00:27 01:44 WBC (3.8-10.6) k/uL RBC (3.80-5.40) m/uL Hgb (11.4-16.0) gm/dL Hct (34.0-46.0) % Plt Count (150-450) k/uL Neutrophils # (Manual) (1.3-7.7) k/uL Lymphocytes # (Manual) (1.0-4.8) k/uL D-Dimer (<0.60) mg/L FEU Sodium (137-145) mmol/L BUN (7-17) mg/dL Creatinine (0.52-1.04) mg/dL Glucose (74-99) mg/dL POC Glucose (mg/dL) 189 H 167 H 152 H (75-99) mg/dL Calcium (8.4-10.2) mg/dL Ferritin (10.0-291.0) ng/mL Lactate Dehydrogenase (313-618) U/L 01/19/20 01/19/20 01/19/20 Range/Units 04:30 04:30 05:34 WBC 24.1 H (3.8-10.6) k/uL RBC 3.34 L (3.80-5.40) m/uL Hgb 10.0 L (11.4-16.0) gm/dL Hct 31.2 L (34.0-46.0) % Plt Count 113 L (150-450) k/uL Neutrophils # (Manual) 23.80 H (1.3-7.7) k/uL Lymphocytes # (Manual) 0.24 L (1.0-4.8) k/uL D-Dimer (<0.60) mg/L FEU Sodium 135 L (137-145) mmol/L BUN 83 H (7-17) mg/dL Creatinine 1.31 H (0.52-1.04) mg/dL Glucose 134 H (74-99) mg/dL POC Glucose (mg/dL) 146 H (75-99) mg/dL Calcium 7.9 L (8.4-10.2) mg/dL Ferritin (10.0-291.0) ng/mL Lactate Dehydrogenase (313-618) U/L 11/30/20 11/30/20 11/30/20 Range/Units 07:35 07:35 12:09 WBC (3.8-10.6) k/uL RBC (3.80-5.40) m/uL Hgb (11.4-16.0) gm/dL Hct (34.0-46.0) % Plt Count (150-450) k/uL Neutrophils # (Manual) (1.3-7.7) k/uL Lymphocytes # (Manual) (1.0-4.8) k/uL D-Dimer 1.23 H (<0.60) mg/L FEU Sodium (137-145) mmol/L BUN (7-17) mg/dL Creatinine (0.52-1.04) mg/dL Glucose (74-99) mg/dL POC Glucose (mg/dL) 185 H (75-99) mg/dL Calcium (8.4-10.2) mg/dL Ferritin 2583.3 H (10.0-291.0) ng/mL Lactate Dehydrogenase 1241 H (313-618) U/L Assessment and Plan Assessment: * Altered mental status, likely due to toxic metabolic encephalopathy (TME). Patient has acute renal insufficiency, abnormal liver functions on top of severe bilateral pneumonia with oxygen/carbon dioxide mismatch resulting in TME--stable neurological exam * Acute bilateral Covid-19 pneumonia. Chest x-ray showed improving bilateral infiltrates. Patient has received Remdesvir on Decadron, vitamin C, vitamin D and zinc. * Bacteremia with Haemophilus influenza, on Ceftriaxone. * Acute renal insufficiency, improving--improving * Anemia--improving Plan: * EEG on 01/13/2020 (modified according ACNS guideline for COVID-19 postive): Moderate to severe encephalopathy of nonspecific etiology. The there is no focal slowing, apical pump discharges or seizure during the study. * Appears patient has toxic metabolic encephalopathy and she is improving. * Treatment of various metabolic conditions/medical conditions as per IM and critical care. * Infectious disease on the case. Patient has enough medical conditions to produce toxic metabolic encephalopathy. Lumbar puncture, only if recommended by ID. * CT head 01/12/20: Was reported as mild generalized atrophy. No acute intracranial abnormality seen. And fluid levels right sphenoid sinus at. Correlate for acute sinusitis. * Repeat CPK: 35 which is within normal limits. CRP is 32.4. * The plan was discussed with Primary team and ICU team. The plan was discussed with the patient's ICU team. We'll follow up with the patient sporadically. Alfred Leon MD Neuro-hospitalist Time with Patient: Less than 30
[2020-01-19 18:24] LABS: Glucose,Whole Blood 167 mg/dL (75-99)
[2020-01-19] MEDS: ANIDULAFUNGIN 100 MG in SODIUM CHLORIDE 0.9% 100 ML IVPB SCH (20:21)
[2020-01-19] MEDS: INSULIN DETEMIR (LEVEMIR) 100 UNIT/ML SYR SQ SCH (20:24)
--- NOTE | 2020-01-19 23:03 | PN ---
PROGRESS NOTE DATE OF SERVICE: 01/19/2020 REASON FOR FOLLOWUP: Haemophilus Strep bacteremia pneumonia. INTERVAL HISTORY: The patient is currently afebrile. The patient is hemodynamically stable. The patient continues to have an NG tube for feeding which she has been tolerating and no diarrhea has been reported. Patient awake but unable to provide any history. PHYSICAL EXAMINATION: Blood pressure 146/77, pulse of 72, temperature 98. She is 93% on 35 percent FiO2. General description is an elderly female lying in bed in no distress. Respiratory system: Unlabored breathing. Decreased breath sounds in the bases, no wheeze. Heart S1, S2. Regular rate and rhythm. ABDOMEN: Soft, no tenderness. LABS: Hemoglobin 10.1, white count 24.1. BUN of 33, creatinine 1.31. CRP less than 5. DIAGNOSTIC IMPRESSION/PLAN: 1. Patient with Haemophilus influenzae bacteremia source likely pneumonia. Blood culture repeat has been negative. Patient is currently on Rocephin to finish a two week course of therapy. 2. Patient with elevated white count, multifactorial, possible oropharyngeal candidiasis covered with white count showing a downward trend. Continue supportive care. MMODL / IJN: [id number] /
--- NOTE | 2020-01-19 23:07 | P.PN ---
Subjective Progress Note Date: 01/19/20 74-year-old female is admitted for hypoxia elevated troponins found to have positive Covid. Patient was transferred from outside hospital. Patient at baseline apparently is awake and alert. Patient is oriented 1 at this time. Patient did have fever and shortness of breath because of which patient was sent in here. Patient has elevated urine creatinine of 2.5 baseline is not available but patient apparently has chronic kidney disease. 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 Patient is found to have mildly elevated troponins of 0.2-3. Patient denied any chest pain although patient is extremely poor historian because of her confusion and hearing problems. His blood cultures from the other hospital came back positive for gram-positive cocci unsure whether it's clusters sore repairs. Patient will be started on vancomycin infectious disease will be consulted may need to be switched to daptomycin, considering her kidney function. 01/17/2020, Patient remains in the ICU, overall pulmonary status is marginal, continues to have worsening infiltrates in the left lung, remains on 40% FiO2 and 40 L flow via airvo. Patient is also receiving enteral feeding via a nasogastric tube. Surprisingly the patient is holding, she is not getting any better and she is not getting any worse. Chest x-ray again shows significant infiltrate involving the left lung. WBC count today is 17 hemoglobin is 10.5, d-dimer is 1.42. Electrodes are normal renal profile showed a BUN of 72 creatinine of 1.30. Improving over the last few days. Neurologically, the patient is about the same 01/18/2020, Patient remains in the ICU, on high flow airvo FiO2 of 40% and 35 L/m flow, saturating at 97%, seems to be a bit more awake today, however she seems to be generally weak. Remains on antibiotics/Rocephin. In addition to her Covid 19 pneumonitis, patient had blood cultures positive for Haemophilus influenzae. Overall the patient is improving, but her improvement seems to be relatively slow. Basic metabolic profile is normal BUN is 77 creatinine is 1.27, steady improvement. Continues to have leukocytosis with WBC count of 28.6 hemoglobin is 10.6. Chest x-ray continues to show significant infiltrate in the left lung, however it is improved compared to previous x-rays. 01/19/2020 Patient is seen and evaluated and currently remains in the ICU being closely monitored. Patient remains on Airvo presently with oxygen saturations of 91-92% with an FI02 of 50% and 35 L/m flow. Multiple medical consultations following including infectious disease, neurology, and pulmonary. Patient is continued on IV antibiotics in the form of Rocephin. Repeat blood cultures have remained negative. WBC continues to be elevated although slowly trending down. Todays chest xray shows overall stable left greater than right infiltrate with small left pleural effusion. PT/OT to evaluate the patient as she continues to be quite weak. No reports of chest pain or palpitations. Tolerating tube feedings via NG tube. Afebrile. Review of systems: Unable to obtain as patient continues to be lethargic and confused. All medications have been reviewed Active Medications Acetaminophen (Acetaminophen Tab 325 Mg Tab) 650 mg PO Q6HR PRN PRN Reason: Mild Pain or Fever > 100.5 Last Admin: 01/07/20 22:43 Dose: 650 mg Documented by: Albuterol Sulfate (Albuterol Hfa Inhaler) 2 puff INHALATION RT-Q6H PRN PRN Reason: Shortness Of Breath Or Wheezing Last Admin: 01/18/20 11:23 Dose: 2 puff Documented by: Ascorbic Acid (Ascorbic Acid 500 Mg Tab) 500 mg PO BID [facility] Last Admin: 01/19/20 08:49 Dose: 500 mg Documented by: Aspirin (Aspirin 81 Mg) 81 mg PO DAILY [facility] Last Admin: 01/19/20 08:49 Dose: 81 mg Documented by: Cholecalciferol (Cholecalciferol 1,000 Unit Tab) 5,000 unit PO DAILY [facility] Last Admin: 01/19/20 08:49 Dose: 5,000 unit Documented by: Clonidine HCl (Clonidine 0.3 Mg/24hr Patch) 1 patch TRANSDERM Q7D [facility] Last Admin: 01/17/20 12:06 Dose: 1 patch Documented by: Enoxaparin Sodium (Enoxaparin 40 Mg/0.4 Ml Syringe) 40 mg SQ Q12HR [facility] Last Admin: 01/19/20 08:49 Dose: 40 mg Documented by: Haloperidol Lactate (Haloperidol Lactate 5 Mg/Ml 1 Ml Vial) 1 mg IVP Q6HR PRN PRN Reason: Agitation or Acute Psychosis Hydralazine HCl (Hydralazine Hcl 20 Mg/Ml 1 Ml Vial) 10 mg IVP Q6HR PRN PRN Reason: Blood Pressure - High Last Admin: 01/19/20 05:54 Dose: 10 mg Documented by: Ceftriaxone Sodium 2 gm/ (Sodium Chloride) 50 mls @ 100 mls/hr IVPB Q24HR [facility] Last Admin: 01/19/20 08:50 Dose: 100 mls/hr Documented by: Sodium Chloride (Saline 0.45%) 1,000 mls @ 20 mls/hr IV .Q24H [facility] Last Admin: 01/19/20 12:13 Dose: 20 mls/hr Documented by: Anidulafungin 100 mg/ Sodium (Chloride) 100 mls @ 84 mls/hr IVPB [facility] Last Admin: 01/18/20 21:01 Dose: 84 mls/hr Documented by: Insulin Aspart (Insulin Aspart (Novolog) 100 Unit/Ml Vial) 0 unit SQ Q6HR [facility]; Protocol Last Admin: 01/19/20 12:12 Dose: 4 unit Documented by: Insulin Detemir (Insulin Detemir (Levemir) 100 Unit/Ml Syr) [address] [facility] Last Admin: 01/18/20 21:10 Dose: 10 unit Documented by: Lidocaine (Lidocaine 5% Patch) 1 patch TOPICAL DAILY [facility] Last Admin: 01/19/20 08:50 Dose: 1 patch Documented by: Methylprednisolone Sodium Succinate (Methylprednisolone Sod Succi 125 Mg/2 Ml Vial) 60 mg IV Q12HR [facility] Metoprolol Tartrate (Metoprolol Tartrate 5 Mg/5 Ml Vial) 5 mg IVP Q6HR [facility] Last Admin: 01/19/20 12:11 Dose: 5 mg Documented by: Miscellaneous Information (Potassium Replacement Protocol 1 Each Misc) 1 each MISCELLANE DAILY PRN; Protocol PRN Reason: Per Protocol Naloxone HCl (Naloxone 0.4 Mg/Ml 1 Ml Vial) 0.2 mg IV Q2M PRN PRN Reason: Opioid Reversal Quetiapine Fumarate (Quetiapine 25 Mg Tab) 25 mg PO HS PRN PRN Reason: Agitation Senna (Sennosides 8.6 Mg Tab) 8.6 mg PO BID [facility] Last Admin: 01/19/20 08:50 Dose: 8.6 mg Documented by: Zinc Sulfate (Zinc Sulfate 220 Mg Cap) 220 mg PO DAILY [facility] Last Admin: 01/19/20 08:50 Dose: 220 mg Documented by: Objective - Vital Signs Vital signs: Vital Signs Temp 98.2 F 01/19/20 12:00 Pulse 79 01/19/20 14:00 Resp 23 01/19/20 14:00 BP 162/88 01/19/20 14:00 Pulse Ox 94 L 01/19/20 15:05 Intake & Output 01/18/20 01/19/20 01/19/20 18:59 06:59 18:59 Intake Total 1185 1325 670 Output Total 572 410 280 Balance 613 915 390 Weight 90.5 kg 90.5 kg Intake: IV 975 825 340 Sodium Chloride 0.45% 1, 975 825 340 000 ml @ 20 mls/hr IV . Q24H [facility] Rx#:[id number] Intake, IV Titration 50 Amount cefTRIAXone 2 gm In 50 Sodium Chloride 0.9% 50 ml @ 100 mls/hr IVPB Q24HR [facility] Rx#:[id number] Tube Feeding 160 440 240 Other 60 90 Output: Urine 572 410 280 Other: Voiding Method Indwelling Catheter Indwelling Catheter Indwelling Catheter - Exam GENERAL: lethargic although arousable, not in any acute distress. Well developed, well nourished. Patient has nonessential tremor, possibility of myoclonus, much better. Temp is 98.2F, pulse is 75, respirations are 22, blood pressure is 162/83, oxygen saturation is 92% on high flow airvo of a flow rate of 35 with an FiO2 of 50 % HEENT: Pupils are round and equally reacting to light. EOMI. No scleral icterus. No conjunctival pallor. Normocephalic, atraumatic. No pharyngeal erythema. No thyromegaly. CARDIOVASCULAR: S1 and S2 present. No murmurs, rubs, or gallops. PULMONARY: diminished breath sounds bilaterally with some scattered rhonchi noted ABDOMEN: Soft, nontender, nondistended, normoactive bowel sounds. No palpable organomegaly. MUSCULOSKELETAL: No joint swelling or deformity. EXTREMITIES: No cyanosis, clubbing, or pedal edema. NEUROLOGICAL: Gross neurological examination did not reveal any focal deficits. - Labs CBC & Chem 7: 01/19/20 04:30 01/19/20 04:30 Labs: Abnormal Lab Results - Last 24 Hours (Table) 01/18/20 01/18/20 01/19/20 Range/Units 17:17 21:06 00:27 WBC (3.8-10.6) k/uL RBC (3.80-5.40) m/uL Hgb (11.4-16.0) gm/dL Hct (34.0-46.0) % Plt Count (150-450) k/uL Neutrophils # (Manual) (1.3-7.7) k/uL Lymphocytes # (Manual) (1.0-4.8) k/uL D-Dimer (<0.60) mg/L FEU Sodium (137-145) mmol/L BUN (7-17) mg/dL Creatinine (0.52-1.04) mg/dL Glucose (74-99) mg/dL POC Glucose (mg/dL) 153 H 189 H 167 H (75-99) mg/dL Calcium (8.4-10.2) mg/dL Lactate Dehydrogenase (313-618) U/L 01/19/20 01/19/20 01/19/20 Range/Units 01:44 04:30 04:30 WBC 24.1 H (3.8-10.6) k/uL RBC 3.34 L (3.80-5.40) m/uL Hgb 10.0 L (11.4-16.0) gm/dL Hct 31.2 L (34.0-46.0) % Plt Count 113 L (150-450) k/uL Neutrophils # (Manual) 23.80 H (1.3-7.7) k/uL Lymphocytes # (Manual) 0.24 L (1.0-4.8) k/uL D-Dimer (<0.60) mg/L FEU Sodium 135 L (137-145) mmol/L BUN 83 H (7-17) mg/dL Creatinine 1.31 H (0.52-1.04) mg/dL Glucose 134 H (74-99) mg/dL POC Glucose (mg/dL) 152 H (75-99) mg/dL Calcium 7.9 L (8.4-10.2) mg/dL Lactate Dehydrogenase (313-618) U/L 01/19/20 01/19/20 01/19/20 Range/Units 05:34 07:35 07:35 WBC (3.8-10.6) k/uL RBC (3.80-5.40) m/uL Hgb (11.4-16.0) gm/dL Hct (34.0-46.0) % Plt Count (150-450) k/uL Neutrophils # (Manual) (1.3-7.7) k/uL Lymphocytes # (Manual) (1.0-4.8) k/uL D-Dimer 1.23 H (<0.60) mg/L FEU Sodium (137-145) mmol/L BUN (7-17) mg/dL Creatinine (0.52-1.04) mg/dL Glucose (74-99) mg/dL POC Glucose (mg/dL) 146 H (75-99) mg/dL Calcium (8.4-10.2) mg/dL Lactate Dehydrogenase 1241 H (313-618) U/L 01/19/20 Range/Units 12:09 WBC (3.8-10.6) k/uL RBC (3.80-5.40) m/uL Hgb (11.4-16.0) gm/dL Hct (34.0-46.0) % Plt Count (150-450) k/uL Neutrophils # (Manual) (1.3-7.7) k/uL Lymphocytes # (Manual) (1.0-4.8) k/uL D-Dimer (<0.60) mg/L FEU Sodium (137-145) mmol/L BUN (7-17) mg/dL Creatinine (0.52-1.04) mg/dL Glucose (74-99) mg/dL POC Glucose (mg/dL) 185 H (75-99) mg/dL Calcium (8.4-10.2) mg/dL Lactate Dehydrogenase (313-618) U/L Assessment and Plan Assessment: -Acute hypoxic respiratory failure: secondary to covid 19 pneumonia. -secondary bacterial pneumonia, with Haemophilus influenza -bacteremia -Toxic encephalopathy, altered mental status: Secondary to infection -Elevated troponin secondary to infection and renal failure -Possible Acute renal failure patient does have chronic kidney disease unable to stage chronic kidney disease as baseline is not known. -Hypertension -Hyperlipidemia -Possible myoclonus: Secondary to encephalopathy -DVT prophylaxis with heparin Recommendations and discussion: Recommend to continue with close monitoring in the ICU. Continue current medications, management, and symptomatic treatment. Continue with IV antibiotics along with IV steroids and breathing inhalational treatments. Multiple medical consultations following including pulmonary, neurology, and infectious disease. PT/OT to evaluate the patient. Continue with tube feeding at this time. Continue to wean FI02 as tolerated. Will repeat am labs and monitor vitals closely. Prognosis remains guarded. Further recommendations to follow.
[2020-01-20] MEDS: SODIUM CHLORIDE 0.45% 1,000 ML IV SCH ×2 (00:21→21:11)
[2020-01-20 00:25] LABS: Glucose,Whole Blood 175 mg/dL (75-99)
[2020-01-20] MEDS: METOPROLOL TARTRATE 5 MG/5 ML VIAL IVP SCH ×3 (00:29→12:38)
[2020-01-20] MEDS: INSULIN ASPART (NovoLOG) 100 UNIT/ML VIAL SQ SCH ×4 (00:29→17:57)
[2020-01-20 05:53] LABS: ALT 47 U/L (4-34); AST 42 U/L (14-36); African American GFR (CKD) 43 (>60 ml/min/1.73 sqM); Albumin 2.4 g/dL (3.5-5.0); Alkaline Phosphatase 55 U/L (38-126); Anion Gap 2 mmol/L; Blood Urea Nitrogen 100 mg/dL (7-17); C Reactive Protein <5.0 mg/L (<10.0); Calcium 7.8 mg/dL (8.4-10.2); Carbon Dioxide 26 mmol/L (22-30); Chloride 107 mmol/L (98-107); Creatine Kinase 33 U/L (30-135); Glucose 127 mg/dL (74-99); LDH 1177 U/L (313-618); Non-African American GFR(CKD) 38 (>60 ml/min/1.73 sqM); Potassium 4.6 mmol/L (3.5-5.1); Sodium 135 mmol/L (137-145); Total Bilirubin 0.5 mg/dL (0.2-1.3); Total Protein 4.6 g/dL (6.3-8.2)
[2020-01-20 06:15] LABS: Basophils % (A) 0 %; Eosinophils % (A) 0 %; HCT 31.3 % (34.0-46.0); HGB 9.8 gm/dL (11.4-16.0); Lymphocytes # (A) 0.3 k/uL (1.0-4.8); Lymphocytes % (A) 2 %; MCH 29.5 pg (25.0-35.0); MCHC 31.5 g/dL (31.0-37.0); MCV 93.8 fL (80.0-100.0); Mean Platelet Volume 11.8; Monocytes # (A) 2.6 k/uL (0-1.0); Monocytes % (A) 13 %; Neutrophils # (A) 13.9 k/uL (1.3-7.7); Neutrophils % (A) 70 %; RBC 3.33 m/uL (3.80-5.40); RDW 14.9 % (11.5-15.5); WBC 19.9 k/uL (3.8-10.6)
[2020-01-20 06:53] LABS: Anisocytosis (M) Present; Large Platelets Present
[2020-01-20 06:54] LABS: Platelet Count 95 k/uL (150-450); Toxic Vacuolation Present
--- NOTE | 2020-01-20 07:31 | XR ---
EXAMINATION TYPE: XR chest 1V portable DATE OF EXAM: 01/20/2020 COMPARISON: 01/19/2020 HISTORY: Shortness of breath TECHNIQUE: Single frontal view of the chest is obtained. FINDINGS: Left-sided central line seen. NG tube noted. There is patchy bilateral areas of infiltrate with more confluent density seen in the lower lobes small effusions. Heart size prominent but stable . Atherosclerotic change aorta. IMPRESSION: Bilateral areas of infiltrate are stable with small bilateral effusions.
[2020-01-20] MEDS: CHOLECALCIFEROL 1,000 UNIT TAB PO SCH (08:54)
[2020-01-20] MEDS: ASPIRIN 81 MG PO SCH (08:54)
[2020-01-20] MEDS: SENNOSIDES 8.6 MG TAB PO SCH ×2 (08:54→21:10)
[2020-01-20] MEDS: methylPREDNISolone SOD SUCCI 125 MG/2 ML VIAL IV SCH ×2 (08:54→21:10)
[2020-01-20] MEDS: ASCORBIC ACID 500 MG TAB PO SCH ×2 (08:54→21:10)
[2020-01-20] MEDS: ENOXAPARIN 40 MG/0.4 ML SYRINGE SQ SCH ×2 (08:55→21:10)
[2020-01-20] MEDS: ZINC SULFATE 220 MG CAP PO SCH (08:55)
[2020-01-20] MEDS: LIDOCAINE 5% PATCH TOPICAL SCH (08:55)
--- NOTE | 2020-01-20 10:30 | P.PN ---
Subjective Progress Note Date: 01/20/20 Principal diagnosis: COVID 19 pneumonia A 74-year-old female patient, very poor historian with what seems to be advanced dementia in addition to history of hypertension and hyperlipidemia was coming in for shortness of breath and hypoxemia and this has been confirmed to be related to COVID 19 infection/pneumonia. The patient was transferred from an outside hospital. The patient is unable to give any further history. Review of her chest x-ray shows that the patient is a peripheral patchy pulmonary interstitial airspace disease infiltrates bilaterally and the patient is currently on 8 L of oxygen by nasal cannula to maintain a saturation above 90%. Her current pulse ox is around 93%. The white cell count is at 10.6. The patient also has a renal failure and the chronicity of the renal failure is not established. Her previous creatinine is unknown to me at this point in time. She also has a mild component of anion gap metabolic acidosis with a anion gap of 14 and a serum bicarb level of 17. LDH is 1213 and the patient is a CRP of 301. Also, the patient had a troponin leak with troponin levels being at 0.1 0.1 and 0.2 respectively. Pro calcitonin level was elevated at 1.54. She is afebrile. The blood cultures from the outside hospital showing gram-positive cocci and is not sure if it was in clusters overnight. The patient was started on vancomycin as an empiric antibiotic coverage. In terms of Covid 19 infection, the patient was started on a combination of Decadron and Remdesivir The patient is seen today 01/07/2020 in follow-up on selective care unit. She does have advanced dementia and is a poor historian. She is currently resting fairly comfortably in bed. She is on 8 L high flow nasal cannula to maintain O2 saturations in the 90s. She's afebrile. Hemodynamically stable. White count 27.1. Hemoglobin 12.2. Lymphocytes 0.81. Sodium 139. Potassium 4.2. Bicarb 14. Creatinine 2.06. AST 102. ALT 47. Troponin 0.266. C-reactive protein 192. Pro calcitonin 1.45. She remains on Decadron, vitamin C, vitamin D, zinc. She is receiving day #2 of Remdesivir. On 01/08/2020, the patient has been transferred to the intensive care unit. The patient developed progressive dyspnea tachypnea and hypoxemia overnight and the patient had to be transferred to the intensive care unit. At this point in time, the patient is confused, lethargic, at times agitated, unable to follow any commands and unable to hold a conversation. She gets quite restless when stimulated. She is sensing critical condition on 4 extremities. No neck stiffness. She is moving all 4 extremities and the patient has no focal neurological deficits. No neck stiffness. The patient was noted to have a possible culture an outside hospital and the patient was given vancomycin in addition to Zithromax and Rocephin per IDs recommendation. Nevertheless, based on our cultures, the results are still negative for now and there is no clear evidence of any bacterial infection at this point in time. Noted the Pro calcitonin level was elevated. At the same time, the patient has acute Covid 19 related to pneumonia bilateral. The patient is on high flow oxygen at 15 L with an FiO2 of 73% to maintain a saturation above 90%. A triple lumen catheter was established in the left subclavian. The chest x-ray post line insertion showed no evidence of any pneumothorax. Nevertheless, there was dense bilateral pulmonary infiltrates consistent with coronavirus Covid 19 related pneumonia. The patient is obviously tachypneic. She is having respiratory distress even on high flow oxygen. No use of accessory muscles of breathing. The blood work from today shows a troponin of 0.23. Vancomycin level is at 19.9. The patient a component of non-anion gap metabolic acidosis from yesterday. The patient is a bicarb drip which is running at 100 mL an hour. Serum bicarb is up to 18. Creatinine is down to 1.9, somewhat improved compared to yesterday. At the same time, the patient is being treated with a combination of Decadron, vitamin C, vitamin D, zinc. She is receiving day #3 of Remdesivir. On 01/09/2020, the patient seems to be less agitated as the patient was started on Precedex which is currently running at 0.25 mg per KG per minute. The patient seems to much more comfortable at this point in time. She remains on high flow oxygen 55 L with an FiO2 of 85% with a pulse ox of 96%. The patient's chest x-ray still showing diffuse breath and pulmonary infiltrates. Note that the patient was infected with Covid 19 and she had a Covid 19 related pneumonia in addition to septic shock secondary to Haemophilus influenza bacteremia. No elbert the patient's blood culture came back positive for Haemophilus influenza. The patient is currently on IV Rocephin 2 g every 24 hours in regards to this septicemia. The patient is also being treated for coronavirus Covid 19 pneumonia with a combination of Decadron and Remdesivir and the patient also received a unit of, convalescent plasma. The patient has a ferritin level of 3188. The patient has a LDH of 1147 and the CRP is down to 122. The patient is afebrile. Renal function and for the creatinine is down to 1.7. Serum bicarbs of 28 and the patient was being given D5 with 3 A of bicarb at the rate of 100 mL an hour. She is afebrile. She is still moans and at times becomes restless and tremulous. Nevertheless, there is no seizure activity noted and the patient is not able to follow single commands. Which are diffuse. There is peripheral infiltrate in the right and the left. There is somewhat improvement in pulmonary infiltration. Is a left sided subclavian triple-lumen catheter in place. The Pro calcitonin level is down to 1.45. 01/10/2020, the patient remains on Precedex and seems to be quite comfortable at a dose of 0.35 mcg per KG per hour. The patient is also on high flow oxygen at 55 L with an FiO2 of 80%. She is able to maintain a saturation above 90%. The chest x-ray is showing persistent airspace disease throughout the left lung which remains unchanged compared to yesterday. There is also scattered infiltration within the periphery of the right lung which probably have improved on today's evaluation. Note that the patient also had a positive blood culture with Haemophilus influenza. Accordingly, the patient was treated with IV Rocephin 2 g every 24 hours. The Pro calcitonin level is on the decline is currently down to 0.42. Hemodynamically stable and the patient is not requiring any pressors and she is receiving normal saline today to 75 mL an hour. The patient blood work showed a sodium of 147, BUN of 65 with a creatinine of 1.5, and the patient has an LDH of 1789, CRP of 73, and a d-dimer today's at 3.79. 01/11/2020, I'm seeing the patient for a follow-up. Her condition essentially unchanged compared to yesterday. The patient is still requiring Precedex to control her agitation and restlessness pH she remains on Precedex at a dose of 0.4 g per KG per minute. This is able to control her condition quite well. Meanwhile, the patient continues to remain hypoxic respiratory failure. She has required high flow oxygen at 55 L and FiO2 of 60%. The patient is on half- normal saline at the rate of 75 mL an hour. Urine output in the order of 70 mL an hour. Input output balance is positive for 21 mL over the past 24 hours. The patient's renal function with a creatinine of 1.47 which is improved compared to yesterday. Sodium level remains unchanged at 147. Chest x-ray findings are essentially stable with diffuse breath and pulmonary infiltrates consistent with Covid 19 related pneumonia. The patient remains on IV Decadron. The patient remains on IV Rocephin regarding her Haemophilus influenza septicemia. Hemodynamically stable. Maintaining her on blood pressure. She remains on Lovenox 40 mg subcu every 12 hours. Reevaluated today on 01/12/20, remains in the ICU, remains on airvo at 60 L/m flow, and 58% FiO2. O2 sats is 96%. Patient was admitted on 01/04, transferred to the ICU on 01/06. Receiving small dose of Precedex because of extreme agitation on presentation, patient is on Lovenox Q at 40 mg subcu twice a day, patient is also being treated with Rocephin for presumptive Haemophilus influenza pneumonia. Patient has not been eating, hence I will recommend a nasogastric tube placement and enteral feeding. She will be seen by neurology on consultation as the patient seems to be quite confused. And extremely stiff and rigid. Her CT of the brain showed mild generalized atrophy and air fluid levels in the right sphenoid sinus. Likely secondary to acute sinusitis. Chest x-ray shows bilateral peripheral extensive infiltrates consistent with Covid 19 pneumonitis. On 01/13/2020 patient seen in follow-up in the intensive care unit, she is resting quietly in bed, appears to be in no acute distress, remains on high flow oxygen per Airvo at 45 L/m, with FiO2 of 45%. Her pulse ox currently is 96-98%. Breathing appears to be comfortable, no respiratory distress, she did have a fever spike this morning with a temp of 101.1F, dynamically stable, she receiving 0.45 at 75 ML per hour, NG tube was inserted yesterday for nutritional support and she has Glucerna tube feedings infusing at 20 ML per hour, with a goal of 40. Did water flushes, patient remains confused, however she is not agitated. Denies any significant distress, today's chest x-ray has been reviewed showing patchy and confluent peripheral infiltrates. And worsening airspace disease at the left base. Patient completed her Remdesivir course on 01/10/2020. She received 1 unit of convalescent plasma, is receiving IV Decadron, 6 mg daily, she is on Lovenox at 40 mg twice daily, and her last d- dimer on 01/12/2020 was downtrending and down to 2.89. Her labs have been reviewed today, her white blood cell count is 26.2, hemoglobin is 11.1, sodium is 143, potassium is 4.1, chloride is 112, CO2 is 25, BUN is 67, creatinine is 1.35, renal profile is actually improving, ferritin is 3122, LDH has trended some, and is up to 1778, however her CRP is trending down, and is down to 32.4. Her last Pro calcitonin was downtrending, and was at 0.282 days ago. She is on any medical coverage in the form of Rocephin, ID service is following On 01/19/2020 patient seen in follow-up in the intensive care unit, she remains on high flow oxygen per Airvo at 35 L/m, and FiO2 of 50% with a pulse ox of 94%, she is afebrile, hemodynamically she stable, she is on 0.45 normal seen at a rate of 75 ML per hour, she receiving nutritional support via NG tube with the Glucerna 1.2 at a rate of 40 mL an hour, tolerating tube feedings well. She remains confused, and lethargic most of the time, neurology is following, and patient is no sweats toxic metabolic encephalopathy. Today's chest x-ray has been reviewed showing stable left greater than the right peripheral interstitial infiltrates and small left pleural effusion. She is status post Remdesivir, 1 unit of fresh frozen convalescent plasma, remains on high-dose IV steroids at 60 mg every 6 hours. Pneumatics no form of Rocephin and he relaxes, ID service is following. Blood culture from 01/07/2020 was found to be positive for Haemophilus influenza, follow blood culture has been negative, urine culture came back negative. His labs have been reviewed, showing white blood cell count of 24.1, hemoglobin of 10, sodium 135, demonstrate electrolytes were within normal limits, BUN of 83 and creatinine of 1.31. Profile is relatively stable. On 01/20/2020 patient seen in follow-up in the intensive care unit, if she remains on high flow oxygen per Airvo at 35 L/m, and FiO2 of 45%, currently O2 sat at 98%. Breathing comfortably, she is drowsy, but arousable to verbal stimuli, she's been afebrile, hemodynamically she stable, she is on 0.45 normal saline at a rate of 20 ML per hour, no other drips, NG tube is in place for tube feedings and she is receiving Glucerna at a rate of 40 ML per hour with a goal of 40. Today's chest x-ray has been reviewed showing bilateral areas of infiltrates that are stable with small bilateral pleural effusions. Remains on empiric antibiotics in the form of ceftriaxone and Eraxis, ID service is following, follow blood cultures have been negative, sputum culture has been negative. She has had no acute events overnight. His labs have been reviewed, white blood cell count is trending down and come down to 19.9, hemoglobin is 9.8, sodium is 135, the rest of the electrolytes are within normal limits, B1 is 100, and creatinine is 1.36. Objective - Vital Signs Vital signs: Vital Signs Temp 96.9 F L 01/20/20 08:00 Pulse 73 01/20/20 10:00 Resp 18 01/20/20 10:00 BP 164/88 01/20/20 10:00 Pulse Ox 99 01/20/20 10:00 Intake & Output 01/19/20 01/20/20 01/20/20 18:59 06:59 18:59 Intake Total 1060 720 300 Output Total 910 880 395 Balance 150 -160 -95 Weight 90.5 kg 91 kg Intake: IV 460 240 80 Sodium Chloride 0.45% 1, 460 240 80 000 ml @ 20 mls/hr IV . Q24H [facility] Rx#:[id number] Tube Feeding 480 480 160 Other 120 60 Output: Urine 910 880 395 Other: Voiding Method Indwelling Catheter Indwelling Catheter - Exam GENERAL EXAM: Alert, confused, but not agitated, 75-year-old white female, on high flow oxygen per Airvo group at 35 L/m, and FiO2 of 45% with a pulse ox of 94% comfortable in no apparent distress. HEAD: Normocephalic/atraumatic. EYES: Normal reaction of pupils, equal size. Conjunctiva pink, sclera white. NOSE: Clear with pink turbinates. THROAT: No erythema or exudates. NECK: No masses, no JVD, no thyroid enlargement, no adenopathy. CHEST: No chest wall deformity. Symmetrical expansion. LUNGS: Equal air entry with no crackles, wheeze, rhonchi or dullness. CVS: Regular rate and rhythm, normal S1 and S2, no gallops, no murmurs, no rubs ABDOMEN: Soft, nontender. No hepatosplenomegaly, normal bowel sounds, no guarding or rigidity. EXTREMITIES: No clubbing, no edema, no cyanosis, 2+ pulses and upper and lower extremities. MUSCULOSKELETAL: Muscle strength and tone normal. SPINE: No scoliosis or deformity SKIN: No rashes CENTRAL NERVOUS SYSTEM: Confused, but not agitated No focal deficits, tone is normal in all 4 extremities. - Labs CBC & Chem 7: 01/20/20 05:20 01/20/20 05:20 Labs: Abnormal Lab Results - Last 24 Hours (Table) 01/19/20 01/19/20 01/19/20 Range/Units 07:35 12:09 18:23 WBC (3.8-10.6) k/uL RBC (3.80-5.40) m/uL Hgb (11.4-16.0) gm/dL Hct (34.0-46.0) % Plt Count (150-450) k/uL Neutrophils # (1.3-7.7) k/uL Lymphocytes # (1.0-4.8) k/uL Monocytes # (0-1.0) k/uL D-Dimer (<0.60) mg/L FEU Sodium (137-145) mmol/L BUN (7-17) mg/dL Creatinine (0.52-1.04) mg/dL Glucose (74-99) mg/dL POC Glucose (mg/dL) 185 H 167 H (75-99) mg/dL Calcium (8.4-10.2) mg/dL Ferritin 2583.3 H (10.0-291.0) ng/mL AST (14-36) U/L ALT (4-34) U/L Lactate Dehydrogenase (313-618) U/L Total Protein (6.3-8.2) g/dL Albumin (3.5-5.0) g/dL 01/20/20 01/20/20 01/20/20 Range/Units 00:23 05:20 05:20 WBC 19.9 H (3.8-10.6) k/uL RBC 3.33 L (3.80-5.40) m/uL Hgb 9.8 L (11.4-16.0) gm/dL Hct 31.3 L (34.0-46.0) % Plt Count 95 L (150-450) k/uL Neutrophils # 13.9 H (1.3-7.7) k/uL Lymphocytes # 0.3 L (1.0-4.8) k/uL Monocytes # 2.6 H (0-1.0) k/uL D-Dimer 1.21 H (<0.60) mg/L FEU Sodium (137-145) mmol/L BUN (7-17) mg/dL Creatinine (0.52-1.04) mg/dL Glucose (74-99) mg/dL POC Glucose (mg/dL) 175 H (75-99) mg/dL Calcium (8.4-10.2) mg/dL Ferritin (10.0-291.0) ng/mL AST (14-36) U/L ALT (4-34) U/L Lactate Dehydrogenase (313-618) U/L Total Protein (6.3-8.2) g/dL Albumin (3.5-5.0) g/dL 01/20/20 Range/Units 05:20 WBC (3.8-10.6) k/uL RBC (3.80-5.40) m/uL Hgb (11.4-16.0) gm/dL Hct (34.0-46.0) % Plt Count (150-450) k/uL Neutrophils # (1.3-7.7) k/uL Lymphocytes # (1.0-4.8) k/uL Monocytes # (0-1.0) k/uL D-Dimer (<0.60) mg/L FEU Sodium 135 L (137-145) mmol/L BUN 100 H (7-17) mg/dL Creatinine 1.36 H (0.52-1.04) mg/dL Glucose 127 H (74-99) mg/dL POC Glucose (mg/dL) (75-99) mg/dL Calcium 7.8 L (8.4-10.2) mg/dL Ferritin (10.0-291.0) ng/mL AST 42 H (14-36) U/L ALT 47 H (4-34) U/L Lactate Dehydrogenase 1177 H (313-618) U/L Total Protein 4.6 L (6.3-8.2) g/dL Albumin 2.4 L (3.5-5.0) g/dL Assessment and Plan Plan: Assessment: #1. Acute hypoxemic respiratory failure related to acute COVID 19 pneumonia, has completed a course of Remdesivir, and received 1 unit of convalescent plasma in addition to IV steroids #2. Haemophilus influenza bacteremia likely related to pneumonia, community- acquired, patient is on Rocephin for antibiotic coverage. Follow up blood culture and sputum culture have shown no growth #3. Acute kidney injury, improved since admission #4. Acute toxic metabolic encephalopathy secondary to the above #5. Hypertension #6. Dyslipidemia #7. Altered mental status/encephalopathy related to toxic metabolic encephalopathy #8. Elevated troponin secondary to infection and acute kidney injury #9. Generalized edema and third spacing, small bilateral pleural effusions, related to fluid volume overload Plan: Continue current medical treatment, we'll switch Airvo too high flow oxygen starting at 15 L, and a wean down to keep pulse ox of 90%. Antibiotics per ID service recommendations, we will give the patient another dose of IV Lasix, and tinea with nutrition, maintain aspiration precautions, today's chest x-ray has been reviewed showing bilateral areas of infiltrate with small bilateral pleural effusions, patient has completed a course of Remdesivir she received 1 unit, less than plasma, she continues on IV steroids which were cut back yesterday, she is receiving anticoagulation, follow blood cultures have shown no growth, sputum culture has been negative, she's had no fever, hemodynamically she stable, she can be transferred out of intensive care unit today to general medical floor I performed a history & physical examination of the patient and discussed their management with my nurse practitioner, Anna Brown. I reviewed the nurse practitioner's note and agree with the documented findings and plan of care. Lung sounds are positive for diminished breath sounds The findings and the impression was discussed with the patient. I attest to the documentation by the nurse practitioner. Time with Patient: Greater than 30
[2020-01-20 12:30] LABS: Glucose,Whole Blood 186 mg/dL (75-99)
--- NOTE | 2020-01-20 14:41 | P.PN ---
Subjective Progress Note Date: 01/20/20 74-year-old female is admitted for hypoxia elevated troponins found to have positive Covid. Patient was transferred from outside hospital. Patient at baseline apparently is awake and alert. Patient is oriented 1 at this time. Patient did have fever and shortness of breath because of which patient was sent in here. Patient has elevated urine creatinine of 2.5 baseline is not available but patient apparently has chronic kidney disease. Does follow with a date night caregiver as an outpatient. Patient is found to have mildly elevated troponins of 0.2-3. Patient denied any chest pain although patient is extremely poor historian because of her confusion and hearing problems. His blood cultures from the other hospital came back positive for gram-positive cocci unsure whether it's clusters sore repairs. Patient will be started on vancomycin infectious disease will be consulted may need to be switched to daptomycin, considering her kidney function. 01/17/2020, Patient remains in the ICU, overall pulmonary status is marginal, continues to have worsening infiltrates in the left lung, remains on 40% FiO2 and 40 L flow via airvo. Patient is also receiving enteral feeding via a nasogastric tube. Surprisingly the patient is holding, she is not getting any better and she is not getting any worse. Chest x-ray again shows significant infiltrate involving the left lung. WBC count today is 17 hemoglobin is 10.5, d-dimer is 1.42. Electrodes are normal renal profile showed a BUN of 72 creatinine of 1.30. Improving over the last few days. Neurologically, the patient is about the same 01/18/2020, Patient remains in the ICU, on high flow airvo FiO2 of 40% and 35 L/m flow, saturating at 97%, seems to be a bit more awake today, however she seems to be generally weak. Remains on antibiotics/Rocephin. In addition to her Covid 19 pneumonitis, patient had blood cultures positive for Haemophilus influenzae. Overall the patient is improving, but her improvement seems to be relatively slow. Basic metabolic profile is normal BUN is 77 creatinine is 1.27, steady improvement. Continues to have leukocytosis with WBC count of 28.6 hemoglobin is 10.6. Chest x-ray continues to show significant infiltrate in the left lung, however it is improved compared to previous x-rays. 01/19/2020 Patient is seen and evaluated and currently remains in the ICU being closely monitored. Patient remains on Airvo presently with oxygen saturations of 91-92% with an FI02 of 50% and 35 L/m flow. Multiple medical consultations following including infectious disease, neurology, and pulmonary. Patient is continued on IV antibiotics in the form of Rocephin. Repeat blood cultures have remained negative. WBC continues to be elevated although slowly trending down. Todays chest xray shows overall stable left greater than right infiltrate with small left pleural effusion. PT/OT to evaluate the patient as she continues to be quite weak. No reports of chest pain or palpitations. Tolerating tube feedings via NG tube. Afebrile. 01/20/2020 Patient is seen in follow-up and currently awaiting a [facility] bed and is being transferred out of the ICU. She continues to be closely monitored. All total medical consultations following. Patient was on Airvo and has been switched to nasal cannula and currently tolerating 8 L high flow at 99%. Patient is more awake and responsive today. Patient currently receiving tube feeding via an NG tube speech was consulted for swallow eval and currently pending. Current sodium is 135, potassium is 4.6, blood sugars being closely monitored and covered by sliding scale and long-acting, and creatinine slightly elevated at 1.36. She is currently afebrile with no reports of chest pain, or worsening shortness of breath noted. Patient is maintained on isolation precautions for Covid 19. Review of systems: Unable to obtain as patient continues to be lethargic and confused although more awake today All medications have been reviewed Active Medications Acetaminophen (Acetaminophen Tab 325 Mg Tab) 650 mg PO Q6HR PRN PRN Reason: Mild Pain or Fever > 100.5 Last Admin: 01/07/20 22:43 Dose: 650 mg Documented by: Albuterol Sulfate (Albuterol Hfa Inhaler) 2 puff INHALATION RT-Q6H PRN PRN Reason: Shortness Of Breath Or Wheezing Last Admin: 01/18/20 11:23 Dose: 2 puff Documented by: Ascorbic Acid (Ascorbic Acid 500 Mg Tab) 500 mg PO BID [facility] Last Admin: 01/20/20 08:54 Dose: 500 mg Documented by: Aspirin (Aspirin 81 Mg) 81 mg PO DAILY [facility] Last Admin: 01/20/20 08:54 Dose: 81 mg Documented by: Cholecalciferol (Cholecalciferol 1,000 Unit Tab) 5,000 unit PO DAILY [facility] Last Admin: 01/20/20 08:54 Dose: 5,000 unit Documented by: Clonidine HCl (Clonidine 0.3 Mg/24hr Patch) 1 patch TRANSDERM Q7D [facility] Last Admin: 01/17/20 12:06 Dose: 1 patch Documented by: Enoxaparin Sodium (Enoxaparin 40 Mg/0.4 Ml Syringe) 40 mg SQ Q12HR [facility] Last Admin: 01/20/20 08:55 Dose: 40 mg Documented by: Haloperidol Lactate (Haloperidol Lactate 5 Mg/Ml 1 Ml Vial) 1 mg IVP Q6HR PRN PRN Reason: Agitation or Acute Psychosis Hydralazine HCl (Hydralazine Hcl 20 Mg/Ml 1 Ml Vial) 10 mg IVP Q6HR PRN PRN Reason: Blood Pressure - High Last Admin: 01/19/20 05:54 Dose: 10 mg Documented by: Ceftriaxone Sodium 2 gm/ (Sodium Chloride) 50 mls @ 100 mls/hr IVPB Q24HR [facility] Last Admin: 01/20/20 08:55 Dose: 100 mls/hr Documented by: Sodium Chloride (Saline 0.45%) 1,000 mls @ 20 mls/hr IV .Q24H [facility] Last Admin: 01/20/20 00:21 Dose: 20 mls/hr Documented by: Anidulafungin 100 mg/ Sodium (Chloride) 100 mls @ 84 mls/hr IVPB [facility] Last Admin: 01/19/20 20:21 Dose: 84 mls/hr Documented by: Insulin Aspart (Insulin Aspart (Novolog) 100 Unit/Ml Vial) 0 unit SQ Q6HR [facility]; Protocol Last Admin: 01/20/20 12:39 Dose: 5 unit Documented by: Insulin Detemir (Insulin Detemir (Levemir) 100 Unit/Ml Syr) 10 unit SQ [facility] Last Admin: 01/19/20 20:24 Dose: 10 unit Documented by: Lidocaine (Lidocaine 5% Patch) 1 patch TOPICAL DAILY [facility] Last Admin: 01/20/20 08:55 Dose: 1 patch Documented by: Methylprednisolone Sodium Succinate (Methylprednisolone Sod Succi 125 Mg/2 Ml Vial) 60 mg IV Q12HR [facility] Last Admin: 01/20/20 08:54 Dose: 60 mg Documented by: Metoprolol Tartrate (Metoprolol Tartrate 50 Mg Tab) 50 mg PO BID [facility] Miscellaneous Information (Potassium Replacement Protocol 1 Each Misc) 1 each MISCELLANE DAILY PRN; Protocol PRN Reason: Per Protocol Naloxone HCl (Naloxone 0.4 Mg/Ml 1 Ml Vial) 0.2 mg IV Q2M PRN PRN Reason: Opioid Reversal Quetiapine Fumarate (Quetiapine 25 Mg Tab) 25 mg PO HS PRN PRN Reason: Agitation Senna (Sennosides 8.6 Mg Tab) 8.6 mg PO BID [facility] Last Admin: 01/20/20 08:54 Dose: 8.6 mg Documented by: Zinc Sulfate (Zinc Sulfate 220 Mg Cap) 220 mg PO DAILY [facility] Last Admin: 01/20/20 08:55 Dose: 220 mg Documented by: Objective - Vital Signs Vital signs: Vital Signs Temp 98.1 F 01/20/20 12:00 Pulse 61 01/20/20 12:00 Resp 14 01/20/20 12:00 BP 168/78 01/20/20 12:00 Pulse Ox 99 01/20/20 12:00 Intake & Output 01/19/20 01/20/20 01/20/20 18:59 06:59 18:59 Intake Total 1060 720 450 Output Total 910 880 595 Balance 150 -160 -145 Weight 90.5 kg 91 kg Intake: IV 460 240 120 Sodium Chloride 0.45% 1, 460 240 120 000 ml @ 20 mls/hr IV . Q24H [facility] Rx#:[id number] Tube Feeding 480 480 240 Other 120 90 Output: Urine 910 880 595 Other: Voiding Method Indwelling Catheter Indwelling Catheter Indwelling Catheter - Exam GENERAL: lethargic although arousable, not in any acute distress. Well developed, well nourished. Patient has nonessential tremor, possibility of myoclonus, much better. Temp is 97.4F, pulse is 73, respirations are 18, blood pressure is 148/98, oxygen saturation is 100% on high flow 8 L via nasal cannula HEENT: Pupils are round and equally reacting to light. EOMI. No scleral icterus. No conjunctival pallor. Normocephalic, atraumatic. No pharyngeal erythema. No thyromegaly. CARDIOVASCULAR: S1 and S2 present. No murmurs, rubs, or gallops. PULMONARY: diminished breath sounds bilaterally with some scattered rhonchi noted ABDOMEN: Soft, nontender, nondistended, normoactive bowel sounds. No palpable organomegaly. MUSCULOSKELETAL: No joint swelling or deformity. EXTREMITIES: No cyanosis, clubbing, or pedal edema. NEUROLOGICAL: Lethargic although more alert today. Gross neurological examin ation did not reveal any focal deficits. Diffusely weak - Labs CBC & Chem 7: 01/20/20 05:20 01/20/20 05:20 Labs: Abnormal Lab Results - Last 24 Hours (Table) 01/19/20 01/19/20 01/20/20 Range/Units 07:35 18:23 00:23 WBC (3.8-10.6) k/uL RBC (3.80-5.40) m/uL Hgb (11.4-16.0) gm/dL Hct (34.0-46.0) % Plt Count (150-450) k/uL Neutrophils # (1.3-7.7) k/uL Lymphocytes # (1.0-4.8) k/uL Monocytes # (0-1.0) k/uL D-Dimer (<0.60) mg/L FEU Sodium (137-145) mmol/L BUN (7-17) mg/dL Creatinine (0.52-1.04) mg/dL Glucose (74-99) mg/dL POC Glucose (mg/dL) 167 H 175 H (75-99) mg/dL Calcium (8.4-10.2) mg/dL Ferritin 2583.3 H (10.0-291.0) ng/mL AST (14-36) U/L ALT (4-34) U/L Lactate Dehydrogenase (313-618) U/L Total Protein (6.3-8.2) g/dL Albumin (3.5-5.0) g/dL 01/20/20 01/20/20 01/20/20 Range/Units 05:20 05:20 05:20 WBC 19.9 H (3.8-10.6) k/uL RBC 3.33 L (3.80-5.40) m/uL Hgb 9.8 L (11.4-16.0) gm/dL Hct 31.3 L (34.0-46.0) % Plt Count 95 L (150-450) k/uL Neutrophils # 13.9 H (1.3-7.7) k/uL Lymphocytes # 0.3 L (1.0-4.8) k/uL Monocytes # 2.6 H (0-1.0) k/uL D-Dimer 1.21 H (<0.60) mg/L FEU Sodium 135 L (137-145) mmol/L BUN 100 H (7-17) mg/dL Creatinine 1.36 H (0.52-1.04) mg/dL Glucose 127 H (74-99) mg/dL POC Glucose (mg/dL) (75-99) mg/dL Calcium 7.8 L (8.4-10.2) mg/dL Ferritin (10.0-291.0) ng/mL AST 42 H (14-36) U/L ALT 47 H (4-34) U/L Lactate Dehydrogenase 1177 H (313-618) U/L Total Protein 4.6 L (6.3-8.2) g/dL Albumin 2.4 L (3.5-5.0) g/dL 01/20/20 Range/Units 12:29 WBC (3.8-10.6) k/uL RBC (3.80-5.40) m/uL Hgb (11.4-16.0) gm/dL Hct (34.0-46.0) % Plt Count (150-450) k/uL Neutrophils # (1.3-7.7) k/uL Lymphocytes # (1.0-4.8) k/uL Monocytes # (0-1.0) k/uL D-Dimer (<0.60) mg/L FEU Sodium (137-145) mmol/L BUN (7-17) mg/dL Creatinine (0.52-1.04) mg/dL Glucose (74-99) mg/dL POC Glucose (mg/dL) 186 H (75-99) mg/dL Calcium (8.4-10.2) mg/dL Ferritin (10.0-291.0) ng/mL AST (14-36) U/L ALT (4-34) U/L Lactate Dehydrogenase (313-618) U/L Total Protein (6.3-8.2) g/dL Albumin (3.5-5.0) g/dL Assessment and Plan Assessment: -Acute hypoxic respiratory failure: secondary to covid 19 pneumonia. -secondary bacterial pneumonia, with Haemophilus influenza -bacteremia -Toxic encephalopathy, altered mental status: Secondary to infection -Elevated troponin secondary to infection and renal failure -Possible Acute renal failure patient does have chronic kidney disease unable to stage chronic kidney disease as baseline is not known. -Hypertension -Hyperlipidemia -Possible myoclonus: Secondary to encephalopathy -DVT prophylaxis with heparin Recommendations and discussion: Recommend to continue with current medications, management, and symptomatic treatment. Patient was transferred out of the ICU to a MedSur unit. Continue with IV antibiotics along with IV steroids and breathing inhalational treatments. Multiple medical consultations following including pulmonary, neurology, and infectious disease. PT/OT to evaluate the patient. Continue with tube feeding at this time while awaiting for speech eval as patient is more awake and alert today. Continue to wean FI02 as tolerated. Currently off of the Airvo and on high flow 8 L via nasal cannula at 100%. Will repeat am labs and monitor vitals closely. Prognosis remains guarded. Further recommendations to follow.
[2020-01-20 15:50] LABS: Ferritin 3054.5 ng/mL (10.0-291.0)
[2020-01-20 18:02] LABS: Glucose,Whole Blood 182 mg/dL (75-99)
[2020-01-20] MEDS: ALBUTEROL HFA INHALER INHALATION PRN (20:46)
[2020-01-20] MEDS: METOPROLOL TARTRATE 50 MG TAB PO SCH (21:10)
[2020-01-20] MEDS: INSULIN DETEMIR (LEVEMIR) 100 UNIT/ML SYR SQ SCH (21:11)
[2020-01-20] MEDS: ANIDULAFUNGIN 100 MG in SODIUM CHLORIDE 0.9% 100 ML IVPB SCH (22:29)
[2020-01-21 00:38] LABS: Glucose,Whole Blood 188 mg/dL (75-99)
[2020-01-21] MEDS: INSULIN ASPART (NovoLOG) 100 UNIT/ML VIAL SQ SCH ×5 (00:44→20:40)
--- NOTE | 2020-01-21 02:09 | PN ---
PROGRESS NOTE DATE OF SERVICE: 01/20/2020 REASON FOR FOLLOWUP: Haemophilus influenzae bacteremia, pneumonia. INTERVAL HISTORY: The patient is currently afebrile. She has been brought out of the ICU. The patient is currently on 6 L nasal cannula. She is hemodynamically stable not on pressor support. She is unable to provide any history. Tolerating her tube feeds and no diarrhea has been reported. PHYSICAL EXAMINATION: Blood pressure 148/98 with a pulse of 73, temperature is 97.4. She is 96% on 6 L nasal cannula. General description is an elderly female lying in bed in no distress. RESPIRATORY SYSTEM: Unlabored breathing, decreased breath sounds at the bases. No wheeze. HEART: S1, S2. Regular rate and rhythm. ABDOMEN: Soft, no tenderness. LABS: White count 19.9, BUN of 100, creatinine 1.36. DIAGNOSTIC IMPRESSION AND PLAN: 1. Patient with Haemophilus influenzae bacteremia source likely pneumonia. Patient currently covered with Rocephin to continue with the course of therapy. 2. Elevated white count, possible steroid effect versus oropharyngeal candidiasis and is covered with Eraxis, white count showing a downward trend. MMODL / IJN: [id number] /
[2020-01-21 06:23] LABS: Glucose,Whole Blood 200 mg/dL (75-99)
[2020-01-21] MEDS: ALBUTEROL HFA INHALER INHALATION PRN ×2 (07:48→11:10)
[2020-01-21] MEDS: SENNOSIDES 8.6 MG TAB PO SCH ×2 (09:09→20:41)
[2020-01-21] MEDS: METOPROLOL TARTRATE 50 MG TAB PO SCH ×2 (09:10→21:10)
[2020-01-21] MEDS: ASPIRIN 81 MG PO SCH (09:10)
[2020-01-21] MEDS: ZINC SULFATE 220 MG CAP PO SCH (09:10)
[2020-01-21] MEDS: methylPREDNISolone SOD SUCCI 125 MG/2 ML VIAL IV SCH (09:11)
[2020-01-21] MEDS: ENOXAPARIN 40 MG/0.4 ML SYRINGE SQ SCH ×2 (09:11→21:15)
[2020-01-21] MEDS: LIDOCAINE 5% PATCH TOPICAL SCH (09:11)
[2020-01-21] MEDS: ASCORBIC ACID 500 MG TAB PO SCH ×2 (09:11→20:41)
[2020-01-21] MEDS: CHOLECALCIFEROL 1,000 UNIT TAB PO SCH (09:11)
[2020-01-21] MEDS: METOPROLOL TARTRATE 25 MG TAB PO SCH (10:56)
[2020-01-21 11:08] LABS: HCT 27.2 % (34.0-46.0); HGB 9.1 gm/dL (11.4-16.0); MCH 31.3 pg (25.0-35.0); MCHC 33.5 g/dL (31.0-37.0); MCV 93.2 fL (80.0-100.0); Mean Platelet Volume 11.3; RBC 2.92 m/uL (3.80-5.40); RDW 14.3 % (11.5-15.5); WBC 16.5 k/uL (3.8-10.6)
[2020-01-21 11:18] LABS: African American GFR (CKD) 42 (>60 ml/min/1.73 sqM); Anion Gap 5 mmol/L; Calcium 7.8 mg/dL (8.4-10.2); Carbon Dioxide 23 mmol/L (22-30); Chloride 109 mmol/L (98-107); Glucose 165 mg/dL (74-99); Non-African American GFR(CKD) 37 (>60 ml/min/1.73 sqM); Potassium 4.8 mmol/L (3.5-5.1); Sodium 137 mmol/L (137-145)
[2020-01-21 11:24] LABS: Blood Urea Nitrogen 107 mg/dL (7-17)
[2020-01-21 11:48] LABS: Glucose,Whole Blood 190 mg/dL (75-99)
--- NOTE | 2020-01-21 12:39 | P.GSCN ---
History of Present Illness Consult date: 01/21/20 History of present illness: Reason for consult: Possible PEG tube placement HISTORY OF PRESENT ILLNESS: This is a 74-year-old female who presented to the hospital with hypoxia, elevated troponins and was found to have positive COVID pneumonia. Patient did require ICU care and had been on Airvo and now transitioned to nasal cannula. She is currently on a regular medical floor. She has been very lethargic. She also has been receiving tube feedings via NG tube. She is being evaluated by speech therapy for swallow evaluation. They are recommending MBS study. We are awaiting final recommendations per speech therapy. Patient has no abdominal pain. No residuals from the tube feeding. Surgical consult has been placed for possible PEG tube placement. PAST MEDICAL HISTORY: See list. PAST SURGICAL HISTORY: See list. MEDICATIONS: See list. ALLERGIES: See list. SOCIAL HISTORY: No illicit drug use. REVIEW OF SYSTEMS: CONSTITUTIONAL: Denies fever or chills. HEENT: Denies blurred vision, vision changes, or eye pain. Denies hemoptysis CARDIOVASCULAR: Denies chest pain or pressure. RESPIRATORY: No shortness of breath. GASTROINTESTINAL: See HPI for pertinent findings HEMATOLOGIC: Denies bleeding disorders. GENITOURINARY: Denies any blood in urine or increased urinary frequency. SKIN: Denies pruitis. Denies rash. PHYSICAL EXAM: VITAL SIGNS: Reviewed GENERAL: Well-developed in no acute distress. HEENT: No sclera icterus. Extraocular movements grossly intact. Moist buccal mucosa. Head is atraumatic, normocephalic. No nasal drainage. ABDOMEN: Soft. Nondistended. Nontender NEUROLOGIC: Alert and oriented x1 her name only LABORATORY DATA: WBC 16.5 hemoglobin 9.1 Creatinine 1.39 BUN 107 IMAGING: ASSESSMENT: 1. Moderate protein calorie malnutrition and poor oral intake 2. Acute hypoxemic respiratory failure secondary to Covid 19 pneumonia 3. Haemophilus influenza bacteremia likely related to pneumonia 4. Acute kidney injury 5. 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 Signing provider agrees with the documented findings, assessment, and plan of care. Past Medical History Past Medical History: Hyperlipidemia, Hypertension History of Any Multi-Drug Resistant Organisms: None Reported Past Surgical History: No Surgical Hx Reported Past Psychological History: No Psychological Hx Reported Smoking Status: Never smoker Past Alcohol Use History: None Reported Past Drug Use History: None Reported - Past Family History Father Family Medical History: Pulmonary Embolus Additional Family Medical History / Comment(s): Mother History Unknown: Yes Additional Family Medical History / Comment(s): " from old age" age 93 Daughter(s) Family Medical History: Hypertension Medications and Allergies Home Medications Medication Instructions Recorded Confirmed Type Albuterol Sulfate [Proventil Hfa] 1 puff INHALATION Q4-6H PRN 01/05/20 01/05/20 History Simvastatin [Zocor] 20 mg PO HS 01/05/20 01/05/20 History allopurinoL [Zyloprim] 100 mg PO DAILY 01/05/20 01/05/20 History cloNIDine HCL [Catapres] 0.2 mg PO Q8H 01/05/20 01/05/20 History traMADol HCL 50 mg PO BID PRN 01/05/20 01/05/20 History Allergies Allergy/AdvReac Type Severity Reaction Status Date / Time No Known Allergies Allergy Verified 01/05/20 23:47 Surgical - Exam Vital Signs Temp Pulse Resp BP Pulse Ox 98 F 68 16 149/71 98 01/05/20 20:46 01/05/20 20:46 01/05/20 20:46 01/05/20 20:46 01/05/20 20:46 Results - Labs 01/21/20 10:27 01/21/20 10:27 Abnormal Lab Results - Last 24 Hours (Table) 01/20/20 01/20/20 01/20/20 Range/Units 05:20 12:29 17:54 WBC (3.8-10.6) k/uL RBC (3.80-5.40) m/uL Hgb (11.4-16.0) gm/dL Hct (34.0-46.0) % Chloride (98-107) mmol/L BUN (7-17) mg/dL Creatinine (0.52-1.04) mg/dL Glucose (74-99) mg/dL POC Glucose (mg/dL) 186 H 182 H (75-99) mg/dL Calcium (8.4-10.2) mg/dL Ferritin 3054.5 H (10.0-291.0) ng/mL 01/21/20 01/21/20 01/21/20 Range/Units 00:35 06:21 10:27 WBC 16.5 H (3.8-10.6) k/uL RBC 2.92 L (3.80-5.40) m/uL Hgb 9.1 L (11.4-16.0) gm/dL Hct 27.2 L (34.0-46.0) % Chloride (98-107) mmol/L BUN (7-17) mg/dL Creatinine (0.52-1.04) mg/dL Glucose (74-99) mg/dL POC Glucose (mg/dL) 188 H 200 H (75-99) mg/dL Calcium (8.4-10.2) mg/dL Ferritin (10.0-291.0) ng/mL 01/21/20 01/21/20 Range/Units 10:27 11:46 WBC (3.8-10.6) k/uL RBC (3.80-5.40) m/uL Hgb (11.4-16.0) gm/dL Hct (34.0-46.0) % Chloride 109 H (98-107) mmol/L BUN 107 H* (7-17) mg/dL Creatinine 1.39 H (0.52-1.04) mg/dL Glucose 165 H (74-99) mg/dL POC Glucose (mg/dL) 190 H (75-99) mg/dL Calcium 7.8 L (8.4-10.2) mg/dL Ferritin (10.0-291.0) ng/mL Diabetes panel 01/21/20 Range/Units 10:27 Sodium 137 (137-145) mmol/L Potassium 4.8 (3.5-5.1) mmol/L Chloride 109 H (98-107) mmol/L Carbon Dioxide 23 (22-30) mmol/L BUN 107 H* (7-17) mg/dL Creatinine 1.39 H (0.52-1.04) mg/dL Glucose 165 H (74-99) mg/dL Calcium 7.8 L (8.4-10.2) mg/dL Calcium panel 01/21/20 Range/Units 10:27 Calcium 7.8 L (8.4-10.2) mg/dL Pituitary panel 01/21/20 Range/Units 10:27 Sodium 137 (137-145) mmol/L Potassium 4.8 (3.5-5.1) mmol/L Chloride 109 H (98-107) mmol/L Carbon Dioxide 23 (22-30) mmol/L BUN 107 H* (7-17) mg/dL Creatinine 1.39 H (0.52-1.04) mg/dL Glucose 165 H (74-99) mg/dL Calcium 7.8 L (8.4-10.2) mg/dL Adrenal panel 01/21/20 Range/Units 10:27 Sodium 137 (137-145) mmol/L Potassium 4.8 (3.5-5.1) mmol/L Chloride 109 H (98-107) mmol/L Carbon Dioxide 23 (22-30) mmol/L BUN 107 H* (7-17) mg/dL Creatinine 1.39 H (0.52-1.04) mg/dL Glucose 165 H (74-99) mg/dL Calcium 7.8 L (8.4-10.2) mg/dL
[2020-01-21 12:45] LABS: Lymphocytes # (M) 0.17 k/uL (1.0-4.8); Monocytes # (M) 0.66 k/uL (0-1.0); Neutrophils # (M) 15.68 k/uL (1.3-7.7); Neutrophils % (M) 95 %; Nucleated Red Blood Cells 0 /100 WBC (0-0); Total Cells Counted 100
[2020-01-21 12:46] LABS: Anisocytosis (M) Present; Poikilocytosis (M) Present
[2020-01-21 12:47] LABS: Platelet Count 75 k/uL (150-450); Toxic Vacuolation Present
--- NOTE | 2020-01-21 15:48 | P.PN ---
Subjective Progress Note Date: 01/21/20 Principal diagnosis: COVID 19 pneumonia A 74-year-old female patient, very poor historian with what seems to be advanced dementia in addition to history of hypertension and hyperlipidemia was coming in for shortness of breath and hypoxemia and this has been confirmed to be related to COVID 19 infection/pneumonia. The patient was transferred from an outside hospital. The patient is unable to give any further history. Review of her chest x-ray shows that the patient is a peripheral patchy pulmonary interstitial airspace disease infiltrates bilaterally and the patient is currently on 8 L of oxygen by nasal cannula to maintain a saturation above 90%. Her current pulse ox is around 93%. The white cell count is at 10.6. The patient also has a renal failure and the chronicity of the renal failure is not established. Her previous creatinine is unknown to me at this point in time. She also has a mild component of anion gap metabolic acidosis with a anion gap of 14 and a serum bicarb level of 17. LDH is 1213 and the patient is a CRP of 301. Also, the patient had a troponin leak with troponin levels being at 0.1 0.1 and 0.2 respectively. Pro calcitonin level was elevated at 1.54. She is afebrile. The blood cultures from the outside hospital showing gram-positive cocci and is not sure if it was in clusters overnight. The patient was started on vancomycin as an empiric antibiotic coverage. In terms of Covid 19 infection, the patient was started on a combination of Decadron and Remdesivir The patient is seen today 01/07/2020 in follow-up on selective care unit. She does have advanced dementia and is a poor historian. She is currently resting fairly comfortably in bed. She is on 8 L high flow nasal cannula to maintain O2 saturations in the 90s. She's afebrile. Hemodynamically stable. White count 27.1. Hemoglobin 12.2. Lymphocytes 0.81. Sodium 139. Potassium 4.2. Bicarb 14. Creatinine 2.06. AST 102. ALT 47. Troponin 0.266. C-reactive protein 192. Pro calcitonin 1.45. She remains on Decadron, vitamin C, vitamin D, zinc. She is receiving day #2 of Remdesivir. On 01/08/2020, the patient has been transferred to the intensive care unit. The patient developed progressive dyspnea tachypnea and hypoxemia overnight and the patient had to be transferred to the intensive care unit. At this point in time, the patient is confused, lethargic, at times agitated, unable to follow any commands and unable to hold a conversation. She gets quite restless when stimulated. She is sensing critical condition on 4 extremities. No neck stiffness. She is moving all 4 extremities and the patient has no focal neurological deficits. No neck stiffness. The patient was noted to have a possible culture an outside hospital and the patient was given vancomycin in addition to Zithromax and Rocephin per IDs recommendation. Nevertheless, based on our cultures, the results are still negative for now and there is no clear evidence of any bacterial infection at this point in time. Noted the Pro calcitonin level was elevated. At the same time, the patient has acute Covid 19 related to pneumonia bilateral. The patient is on high flow oxygen at 15 L with an FiO2 of 73% to maintain a saturation above 90%. A triple lumen catheter was established in the left subclavian. The chest x-ray post line insertion showed no evidence of any pneumothorax. Nevertheless, there was dense bilateral pulmonary infiltrates consistent with coronavirus Covid 19 related pneumonia. The patient is obviously tachypneic. She is having respiratory distress even on high flow oxygen. No use of accessory muscles of breathing. The blood work from today shows a troponin of 0.23. Vancomycin level is at 19.9. The patient a component of non-anion gap metabolic acidosis from yesterday. The patient is a bicarb drip which is running at 100 mL an hour. Serum bicarb is up to 18. Creatinine is down to 1.9, somewhat improved compared to yesterday. At the same time, the patient is being treated with a combination of Decadron, vitamin C, vitamin D, zinc. She is receiving day #3 of Remdesivir. On 01/09/2020, the patient seems to be less agitated as the patient was started on Precedex which is currently running at 0.25 mg per KG per minute. The patient seems to much more comfortable at this point in time. She remains on high flow oxygen 55 L with an FiO2 of 85% with a pulse ox of 96%. The patient's chest x-ray still showing diffuse breath and pulmonary infiltrates. Note that the patient was infected with Covid 19 and she had a Covid 19 related pneumonia in addition to septic shock secondary to Haemophilus influenza bacteremia. No elbert the patient's blood culture came back positive for Haemophilus influenza. The patient is currently on IV Rocephin 2 g every 24 hours in regards to this septicemia. The patient is also being treated for coronavirus Covid 19 pneumonia with a combination of Decadron and Remdesivir and the patient also received a unit of, convalescent plasma. The patient has a ferritin level of 3188. The patient has a LDH of 1147 and the CRP is down to 122. The patient is afebrile. Renal function and for the creatinine is down to 1.7. Serum bicarbs of 28 and the patient was being given D5 with 3 A of bicarb at the rate of 100 mL an hour. She is afebrile. She is still moans and at times becomes restless and tremulous. Nevertheless, there is no seizure activity noted and the patient is not able to follow single commands. Which are diffuse. There is peripheral infiltrate in the right and the left. There is somewhat improvement in pulmonary infiltration. Is a left sided subclavian triple-lumen catheter in place. The Pro calcitonin level is down to 1.45. 01/10/2020, the patient remains on Precedex and seems to be quite comfortable at a dose of 0.35 mcg per KG per hour. The patient is also on high flow oxygen at 55 L with an FiO2 of 80%. She is able to maintain a saturation above 90%. The chest x-ray is showing persistent airspace disease throughout the left lung which remains unchanged compared to yesterday. There is also scattered infiltration within the periphery of the right lung which probably have improved on today's evaluation. Note that the patient also had a positive blood culture with Haemophilus influenza. Accordingly, the patient was treated with IV Rocephin 2 g every 24 hours. The Pro calcitonin level is on the decline is currently down to 0.42. Hemodynamically stable and the patient is not requiring any pressors and she is receiving normal saline today to 75 mL an hour. The patient blood work showed a sodium of 147, BUN of 65 with a creatinine of 1.5, and the patient has an LDH of 1789, CRP of 73, and a d-dimer today's at 3.79. 01/11/2020, I'm seeing the patient for a follow-up. Her condition essentially unchanged compared to yesterday. The patient is still requiring Precedex to control her agitation and restlessness pH she remains on Precedex at a dose of 0.4 g per KG per minute. This is able to control her condition quite well. Meanwhile, the patient continues to remain hypoxic respiratory failure. She has required high flow oxygen at 55 L and FiO2 of 60%. The patient is on half- normal saline at the rate of 75 mL an hour. Urine output in the order of 70 mL an hour. Input output balance is positive for 21 mL over the past 24 hours. The patient's renal function with a creatinine of 1.47 which is improved compared to yesterday. Sodium level remains unchanged at 147. Chest x-ray findings are essentially stable with diffuse breath and pulmonary infiltrates consistent with Covid 19 related pneumonia. The patient remains on IV Decadron. The patient remains on IV Rocephin regarding her Haemophilus influenza septicemia. Hemodynamically stable. Maintaining her on blood pressure. She remains on Lovenox 40 mg subcu every 12 hours. Reevaluated today on 01/12/20, remains in the ICU, remains on airvo at 60 L/m flow, and 58% FiO2. O2 sats is 96%. Patient was admitted on 01/04, transferred to the ICU on 01/06. Receiving small dose of Precedex because of extreme agitation on presentation, patient is on Lovenox Q at 40 mg subcu twice a day, patient is also being treated with Rocephin for presumptive Haemophilus influenza pneumonia. Patient has not been eating, hence I will recommend a nasogastric tube placement and enteral feeding. She will be seen by neurology on consultation as the patient seems to be quite confused. And extremely stiff and rigid. Her CT of the brain showed mild generalized atrophy and air fluid levels in the right sphenoid sinus. Likely secondary to acute sinusitis. Chest x-ray shows bilateral peripheral extensive infiltrates consistent with Covid 19 pneumonitis. On 01/13/2020 patient seen in follow-up in the intensive care unit, she is resting quietly in bed, appears to be in no acute distress, remains on high flow oxygen per Airvo at 45 L/m, with FiO2 of 45%. Her pulse ox currently is 96-98%. Breathing appears to be comfortable, no respiratory distress, she did have a fever spike this morning with a temp of 101.1F, dynamically stable, she receiving 0.45 at 75 ML per hour, NG tube was inserted yesterday for nutritional support and she has Glucerna tube feedings infusing at 20 ML per hour, with a goal of 40. Did water flushes, patient remains confused, however she is not agitated. Denies any significant distress, today's chest x-ray has been reviewed showing patchy and confluent peripheral infiltrates. And worsening airspace disease at the left base. Patient completed her Remdesivir course on 01/10/2020. She received 1 unit of convalescent plasma, is receiving IV Decadron, 6 mg daily, she is on Lovenox at 40 mg twice daily, and her last d- dimer on 01/12/2020 was downtrending and down to 2.89. Her labs have been reviewed today, her white blood cell count is 26.2, hemoglobin is 11.1, sodium is 143, potassium is 4.1, chloride is 112, CO2 is 25, BUN is 67, creatinine is 1.35, renal profile is actually improving, ferritin is 3122, LDH has trended some, and is up to 1778, however her CRP is trending down, and is down to 32.4. Her last Pro calcitonin was downtrending, and was at 0.282 days ago. She is on any medical coverage in the form of Rocephin, ID service is following On 01/19/2020 patient seen in follow-up in the intensive care unit, she remains on high flow oxygen per Airvo at 35 L/m, and FiO2 of 50% with a pulse ox of 94%, she is afebrile, hemodynamically she stable, she is on 0.45 normal seen at a rate of 75 ML per hour, she receiving nutritional support via NG tube with the Glucerna 1.2 at a rate of 40 mL an hour, tolerating tube feedings well. She remains confused, and lethargic most of the time, neurology is following, and patient is no sweats toxic metabolic encephalopathy. Today's chest x-ray has been reviewed showing stable left greater than the right peripheral interstitial infiltrates and small left pleural effusion. She is status post Remdesivir, 1 unit of fresh frozen convalescent plasma, remains on high-dose IV steroids at 60 mg every 6 hours. Pneumatics no form of Rocephin and he relaxes, ID service is following. Blood culture from 01/07/2020 was found to be positive for Haemophilus influenza, follow blood culture has been negative, urine culture came back negative. His labs have been reviewed, showing white blood cell count of 24.1, hemoglobin of 10, sodium 135, demonstrate electrolytes were within normal limits, BUN of 83 and creatinine of 1.31. Profile is relatively stable. On 01/20/2020 patient seen in follow-up in the intensive care unit, if she remains on high flow oxygen per Airvo at 35 L/m, and FiO2 of 45%, currently O2 sat at 98%. Breathing comfortably, she is drowsy, but arousable to verbal stimuli, she's been afebrile, hemodynamically she stable, she is on 0.45 normal saline at a rate of 20 ML per hour, no other drips, NG tube is in place for tube feedings and she is receiving Glucerna at a rate of 40 ML per hour with a goal of 40. Today's chest x-ray has been reviewed showing bilateral areas of infiltrates that are stable with small bilateral pleural effusions. Remains on empiric antibiotics in the form of ceftriaxone and Eraxis, ID service is following, follow blood cultures have been negative, sputum culture has been negative. She has had no acute events overnight. His labs have been reviewed, white blood cell count is trending down and come down to 19.9, hemoglobin is 9.8, sodium is 135, the rest of the electrolytes are within normal limits, B1 is 100, and creatinine is 1.36. On 01/21/2020 patient seen in follow-up on general medical surgical floor, she was transferred out of intensive care unit yesterday, FiO2 is being weaned down, she is currently on 4 L per high flow oxygen, her pulse ox is 98%, oxygenation has significantly improved, she's been afebrile, hemodynamically stable, she still remains somewhat encephalopathic, sleepy, NG tube remains in place with tube feedings infusing, she is awaiting speech evaluation, her mental status permitting. She's had no acute events overnight, she remains on Rocephin, Eraxis, her follow-up blood cultures and sputum cultures have shown no growth. She completed a course of Remdesivir, she received 1 unit of convalescent plasma, she's been treated with steroids, and anticoagulation, clinically she is doing better although her mentation is still impaired, patient is confused, and she is drowsy every time we see her in rounds Objective - Vital Signs Vital signs: Vital Signs Temp 97.4 F L 01/21/20 14:00 Pulse 65 01/21/20 14:00 Resp 19 01/21/20 14:00 BP 168/93 01/21/20 14:00 Pulse Ox 98 01/21/20 14:00 Intake & Output 01/20/20 01/21/20 01/21/20 18:59 06:59 18:59 Intake Total 450 370 Output Total 595 700 Balance -145 -700 370 Weight 88.5 kg Intake: IV 120 Sodium Chloride 0.45% 1, 120 000 ml @ 20 mls/hr IV . Q24H ANDREA Rx#:[id number] Intake, IV Titration 50 Amount cefTRIAXone 2 gm In 50 Sodium Chloride 0.9% 50 ml @ 100 mls/hr IVPB Q24HR ANDREA Rx#:[id number] Tube Feeding 240 320 Other 90 Output: Urine 595 700 Other: Voiding Method Indwelling Catheter Indwelling Catheter Indwelling Catheter - Exam GENERAL EXAM: Alert, confused, but not agitated, 75-year-old white female, on 4 l/min with a pulse ox of 98% comfortable in no apparent distress. HEAD: Normocephalic/atraumatic. EYES: Normal reaction of pupils, equal size. Conjunctiva pink, sclera white. NOSE: Clear with pink turbinates. THROAT: No erythema or exudates. NECK: No masses, no JVD, no thyroid enlargement, no adenopathy. CHEST: No chest wall deformity. Symmetrical expansion. LUNGS: Equal air entry with no crackles, wheeze, rhonchi or dullness. CVS: Regular rate and rhythm, normal S1 and S2, no gallops, no murmurs, no rubs ABDOMEN: Soft, nontender. No hepatosplenomegaly, normal bowel sounds, no guarding or rigidity. EXTREMITIES: No clubbing, no edema, no cyanosis, 2+ pulses and upper and lower extremities. MUSCULOSKELETAL: Muscle strength and tone normal. SPINE: No scoliosis or deformity SKIN: No rashes CENTRAL NERVOUS SYSTEM: Confused, but not agitated No focal deficits, tone is normal in all 4 extremities. - Labs CBC & Chem 7: 01/21/20 10:27 01/21/20 10:27 Labs: Abnormal Lab Results - Last 24 Hours (Table) 01/20/20 01/20/20 01/21/20 Range/Units 05:20 17:54 00:35 WBC (3.8-10.6) k/uL RBC (3.80-5.40) m/uL Hgb (11.4-16.0) gm/dL Hct (34.0-46.0) % Plt Count (150-450) k/uL Neutrophils # (Manual) (1.3-7.7) k/uL Lymphocytes # (Manual) (1.0-4.8) k/uL Chloride (98-107) mmol/L BUN (7-17) mg/dL Creatinine (0.52-1.04) mg/dL Glucose (74-99) mg/dL POC Glucose (mg/dL) 182 H 188 H (75-99) mg/dL Calcium (8.4-10.2) mg/dL Ferritin 3054.5 H (10.0-291.0) ng/mL 01/21/20 01/21/20 01/21/20 Range/Units 06:21 10:27 10:27 WBC 16.5 H (3.8-10.6) k/uL RBC 2.92 L (3.80-5.40) m/uL Hgb 9.1 L (11.4-16.0) gm/dL Hct 27.2 L (34.0-46.0) % Plt Count 75 L (150-450) k/uL Neutrophils # (Manual) 15.68 H (1.3-7.7) k/uL Lymphocytes # (Manual) 0.17 L (1.0-4.8) k/uL Chloride 109 H (98-107) mmol/L BUN 107 H* (7-17) mg/dL Creatinine 1.39 H (0.52-1.04) mg/dL Glucose 165 H (74-99) mg/dL POC Glucose (mg/dL) 200 H (75-99) mg/dL Calcium 7.8 L (8.4-10.2) mg/dL Ferritin (10.0-291.0) ng/mL 01/21/20 Range/Units 11:46 WBC (3.8-10.6) k/uL RBC (3.80-5.40) m/uL Hgb (11.4-16.0) gm/dL Hct (34.0-46.0) % Plt Count (150-450) k/uL Neutrophils # (Manual) (1.3-7.7) k/uL Lymphocytes # (Manual) (1.0-4.8) k/uL Chloride (98-107) mmol/L BUN (7-17) mg/dL Creatinine (0.52-1.04) mg/dL Glucose (74-99) mg/dL POC Glucose (mg/dL) 190 H (75-99) mg/dL Calcium (8.4-10.2) mg/dL Ferritin (10.0-291.0) ng/mL Assessment and Plan Plan: Assessment: #1. Acute hypoxemic respiratory failure related to acute COVID 19 pneumonia, has completed a course of Remdesivir, and received 1 unit of convalescent plasma in addition to IV steroids, since oxygenation has significantly improved since admission, currently down to 4 L of oxygen with pulse ox of 98% #2. Haemophilus influenza bacteremia likely related to pneumonia, community- acquired, patient is on Rocephin for antibiotic coverage. Follow up blood culture and sputum culture have shown no growth #3. Acute kidney injury, improved since admission #4. Acute toxic metabolic encephalopathy secondary to the above #5. Hypertension #6. Dyslipidemia #7. Altered mental status/encephalopathy related to toxic metabolic encephalopathy #8. Elevated troponin secondary to infection and acute kidney injury #9. Generalized edema and third spacing, small bilateral pleural effusions, related to fluid volume overload Plan: Continue current medical treatment, continue weaning FiO2, maintain aspiration precautions, will contact steroids to 40 mg every 12 hours, is awaiting swallow evaluation, appears to be still a bit drowsy to be safely fed by mouth, defer to speech specialist. Antibiotic as per ID service recommendations. Nutritional support, current dose Lovenox I performed a history & physical examination of the patient and discussed their management with my nurse practitioner, Anna Brown. I reviewed the nurse practitioner's note and agree with the documented findings and plan of care. Lung sounds are positive for diminished breath sounds The findings and the impression was discussed with the patient. I attest to the documentation by the nurse practitioner. Time with Patient: Less than 30
[2020-01-21 17:04] LABS: Glucose,Whole Blood 183 mg/dL (75-99)
[2020-01-21] MEDS: SODIUM CHLORIDE 0.45% 1,000 ML IV SCH (20:41)
[2020-01-21 20:42] LABS: Glucose,Whole Blood 121 mg/dL (75-99)
[2020-01-21] MEDS: INSULIN DETEMIR (LEVEMIR) 100 UNIT/ML SYR SQ SCH (21:15)
[2020-01-21] MEDS: methylPREDNISolone SOD SUCCI 40 MG/ML 1 ML VIAL IV SCH (21:15)
[2020-01-21] MEDS: ANIDULAFUNGIN 100 MG in SODIUM CHLORIDE 0.9% 100 ML IVPB SCH (21:15)
--- NOTE | 2020-01-21 23:33 | P.PN ---
Subjective Progress Note Date: 01/21/20 74-year-old female is admitted for hypoxia elevated troponins found to have positive Covid. Patient was transferred from outside hospital. Patient at baseline apparently is awake and alert. Patient is oriented 1 at this time. Patient did have fever and shortness of breath because of which patient was sent in here. Patient has elevated urine creatinine of 2.5 baseline is not available but patient apparently has chronic kidney disease. Does follow with a haircutter as an outpatient. Patient is found to have mildly elevated troponins of 0.2-3. Patient denied any chest pain although patient is extremely poor historian because of her confusion and hearing problems. His blood cultures from the other hospital came back positive for gram-positive cocci unsure whether it's clusters sore repairs. Patient will be started on vancomycin infectious disease will be consulted may need to be switched to daptomycin, considering her kidney function. 01/17/2020, Patient remains in the ICU, overall pulmonary status is marginal, continues to have worsening infiltrates in the left lung, remains on 40% FiO2 and 40 L flow via airvo. Patient is also receiving enteral feeding via a nasogastric tube. Surprisingly the patient is holding, she is not getting any better and she is not getting any worse. Chest x-ray again shows significant infiltrate involving the left lung. WBC count today is 17 hemoglobin is 10.5, d-dimer is 1.42. Electrodes are normal renal profile showed a BUN of 72 creatinine of 1.30. Improving over the last few days. Neurologically, the patient is about the same 01/18/2020, Patient remains in the ICU, on high flow airvo FiO2 of 40% and 35 L/m flow, saturating at 97%, seems to be a bit more awake today, however she seems to be generally weak. Remains on antibiotics/Rocephin. In addition to her Covid 19 pneumonitis, patient had blood cultures positive for Haemophilus influenzae. Overall the patient is improving, but her improvement seems to be relatively slow. Basic metabolic profile is normal BUN is 77 creatinine is 1.27, steady improvement. Continues to have leukocytosis with WBC count of 28.6 hemoglobin is 10.6. Chest x-ray continues to show significant infiltrate in the left lung, however it is improved compared to previous x-rays. 01/19/2020 Patient is seen and evaluated and currently remains in the ICU being closely monitored. Patient remains on Airvo presently with oxygen saturations of 91-92% with an FI02 of 50% and 35 L/m flow. Multiple medical consultations following including infectious disease, neurology, and pulmonary. Patient is continued on IV antibiotics in the form of Rocephin. Repeat blood cultures have remained negative. WBC continues to be elevated although slowly trending down. Todays chest xray shows overall stable left greater than right infiltrate with small left pleural effusion. PT/OT to evaluate the patient as she continues to be quite weak. No reports of chest pain or palpitations. Tolerating tube feedings via NG tube. Afebrile. 01/20/2020 Patient is seen in follow-up and currently awaiting a [facility] bed and is being transferred out of the ICU. She continues to be closely monitored. Multiple medical consultations following. Patient was on Airvo and has been switched to nasal cannula and currently tolerating 8 L high flow at 99%. Patient is more awake and responsive today. Patient currently receiving tube feeding via an NG tube speech was consulted for swallow eval and currently pending. Current sodium is 135, potassium is 4.6, blood sugars being closely monitored and covered by sliding scale and long-acting, and creatinine slightly elevated at 1.36. She is currently afebrile with no reports of chest pain, or worsening shortness of breath noted. Patient is maintained on isolation precautions for Covid 19. 01/21/2020 Patient is seen and evaluated in follow up and continues to be closely monitored. Patient is currently on 4L via NC and is 97%. NG tube in place. Patient was seen by speech pathology and recommending honey thickened liquids and puree diet although continues to be lethargic with minimal response. Modified barium swallow ordered and pending. Surgery also consulted for possible peg tube placement and daughter Char was contacted to discuss this. Patient BUN is 106 and creatinine slightly improved. Nephrology consulted and currently pending. Will repeat am labs and continue to monitor vital signs and labs closely. Patient continues to remain quite edematous in bilateral upper and lower extremities. Will repeat am chest xray. Prognosis is guarded. Review of systems: Unable to obtain as patient continues to be lethargic and confused All medications have been reviewed Active Medications Acetaminophen (Acetaminophen Tab 325 Mg Tab) 650 mg PO Q6HR PRN PRN Reason: Mild Pain or Fever > 100.5 Last Admin: 01/07/20 22:43 Dose: 650 mg Documented by: Albuterol Sulfate (Albuterol Hfa Inhaler) 2 puff INHALATION RT-Q6H PRN PRN Reason: Shortness Of Breath Or Wheezing Last Admin: 01/21/20 11:10 Dose: 2 puff Documented by: Ascorbic Acid (Ascorbic Acid 500 Mg Tab) 500 mg PO BID [facility] Last Admin: 01/21/20 09:11 Dose: 500 mg Documented by: Aspirin (Aspirin 81 Mg) 81 mg PO DAILY [facility] Last Admin: 01/21/20 09:10 Dose: 81 mg Documented by: Cholecalciferol (Cholecalciferol 1,000 Unit Tab) 5,000 unit PO DAILY [facility] Last Admin: 01/21/20 09:11 Dose: 5,000 unit Documented by: Clonidine HCl (Clonidine 0.3 Mg/24hr Patch) 1 patch TRANSDERM Q7D [facility] Last Admin: 01/17/20 12:06 Dose: 1 patch Documented by: Enoxaparin Sodium (Enoxaparin 40 Mg/0.4 Ml Syringe) 40 mg SQ Q12HR [facility] Last Admin: 01/21/20 09:11 Dose: 40 mg Documented by: Haloperidol Lactate (Haloperidol Lactate 5 Mg/Ml 1 Ml Vial) 1 mg IVP Q6HR PRN PRN Reason: Agitation or Acute Psychosis Hydralazine HCl (Hydralazine Hcl 20 Mg/Ml 1 Ml Vial) 10 mg IVP Q6HR PRN PRN Reason: Blood Pressure - High Last Admin: 01/19/20 05:54 Dose: 10 mg Documented by: Ceftriaxone Sodium 2 gm/ (Sodium Chloride) 50 mls @ 100 mls/hr IVPB Q24HR [facility] Last Admin: 01/21/20 09:13 Dose: 100 mls/hr Documented by: Sodium Chloride (Saline 0.45%) 1,000 mls @ 20 mls/hr IV .Q24H [facility] Last Admin: 01/20/20 21:11 Dose: 20 mls/hr Documented by: Anidulafungin 100 mg/ Sodium (Chloride) 100 mls @ 84 mls/hr IVPB HS [facility] Last Admin: 01/20/20 22:29 Dose: 84 mls/hr Documented by: Insulin Aspart (Insulin Aspart (Novolog) 100 Unit/Ml Vial) 0 unit SQ Q6HR [facility]; Protocol Last Admin: 01/21/20 13:09 Dose: 5 unit Documented by: Insulin Detemir (Insulin Detemir (Levemir) 100 Unit/Ml Syr) 10 unit SQ HS [facility] Last Admin: 01/20/20 21:11 Dose: 10 unit Documented by: Lidocaine (Lidocaine 5% Patch) 1 patch TOPICAL DAILY [facility] Last Admin: 01/21/20 09:11 Dose: 1 patch Documented by: Methylprednisolone Sodium Succinate (Methylprednisolone Sod Succi 125 Mg/2 Ml Vial) 60 mg IV Q12HR [facility] Last Admin: 01/21/20 09:11 Dose: 60 mg Documented by: Metoprolol Tartrate (Metoprolol Tartrate 50 Mg Tab) 50 mg PO BID [facility] Last Admin: 01/21/20 09:10 Dose: 50 mg Documented by: Miscellaneous Information (Potassium Replacement Protocol 1 Each Misc) 1 each MISCELLANE DAILY PRN; Protocol PRN Reason: Per Protocol Naloxone HCl (Naloxone 0.4 Mg/Ml 1 Ml Vial) 0.2 mg IV Q2M PRN PRN Reason: Opioid Reversal Quetiapine Fumarate (Quetiapine 25 Mg Tab) 25 mg PO HS PRN PRN Reason: Agitation Senna (Sennosides 8.6 Mg Tab) 8.6 mg PO BID [facility] Last Admin: 01/21/20 09:09 Dose: Not Given Documented by: Zinc Sulfate (Zinc Sulfate 220 Mg Cap) 220 mg PO DAILY [facility] Last Admin: 01/21/20 09:10 Dose: 220 mg Documented by: Objective - Vital Signs Vital signs: Vital Signs Temp 97.4 F L 01/21/20 14:00 Pulse 65 01/21/20 14:00 Resp 19 01/21/20 14:00 BP 168/93 01/21/20 14:00 Pulse Ox 98 01/21/20 14:00 Intake & Output 01/20/20 01/21/20 01/21/20 18:59 06:59 18:59 Intake Total 450 370 Output Total 595 700 Balance -145 -700 370 Weight 88.5 kg Intake: IV 120 Sodium Chloride 0.45% 1, 120 000 ml @ 20 mls/hr IV . Q24H [facility] Rx#:[id number] Intake, IV Titration 50 Amount cefTRIAXone 2 gm In 50 Sodium Chloride 0.9% 50 ml @ 100 mls/hr IVPB Q24HR [facility] Rx#:[id number] Tube Feeding 240 320 Other 90 Output: Urine 595 700 Other: Voiding Method Indwelling Catheter Indwelling Catheter Indwelling Catheter - Exam GENERAL: lethargic although arousable. Well developed, well nourished. Temp is 96.3F, pulse is 76, respirations are 18, blood pressure is 162/89, oxygen saturation is 95 % on 4 L via nasal cannula HEENT: Pupils are round and equally reacting to light. EOMI. No scleral icterus. No conjunctival pallor. Normocephalic, atraumatic. No pharyngeal erythema. No thyromegaly. Oral mucosa is dry CARDIOVASCULAR: S1 and S2 muffled. No murmurs, rubs, or gallops. PULMONARY: diminished breath sounds bilaterally with some scattered rhonchi noted ABDOMEN: Soft, nontender, nondistended, normoactive bowel sounds. No palpable organomegaly. MUSCULOSKELETAL: No joint swelling or deformity. EXTREMITIES: No cyanosis, clubbing, or pedal edema. Bilateral upper and lower extremity pitting edema noted, 3+ NEUROLOGICAL: Lethargic although somewhat arousable to name today. Gross neurological examination did not reveal any focal deficits. Diffusely weak - Labs CBC & Chem 7: 01/21/20 10:27 01/21/20 10:27 Labs: Abnormal Lab Results - Last 24 Hours (Table) 01/20/20 01/20/20 01/21/20 Range/Units 05:20 17:54 00:35 WBC (3.8-10.6) k/uL RBC (3.80-5.40) m/uL Hgb (11.4-16.0) gm/dL Hct (34.0-46.0) % Plt Count (150-450) k/uL Neutrophils # (Manual) (1.3-7.7) k/uL Lymphocytes # (Manual) (1.0-4.8) k/uL Chloride (98-107) mmol/L BUN (7-17) mg/dL Creatinine (0.52-1.04) mg/dL Glucose (74-99) mg/dL POC Glucose (mg/dL) 182 H 188 H (75-99) mg/dL Calcium (8.4-10.2) mg/dL Ferritin 3054.5 H (10.0-291.0) ng/mL 01/21/20 01/21/20 01/21/20 Range/Units 06:21 10:27 10:27 WBC 16.5 H (3.8-10.6) k/uL RBC 2.92 L (3.80-5.40) m/uL Hgb 9.1 L (11.4-16.0) gm/dL Hct 27.2 L (34.0-46.0) % Plt Count 75 L (150-450) k/uL Neutrophils # (Manual) 15.68 H (1.3-7.7) k/uL Lymphocytes # (Manual) 0.17 L (1.0-4.8) k/uL Chloride 109 H (98-107) mmol/L BUN 107 H* (7-17) mg/dL Creatinine 1.39 H (0.52-1.04) mg/dL Glucose 165 H (74-99) mg/dL POC Glucose (mg/dL) 200 H (75-99) mg/dL Calcium 7.8 L (8.4-10.2) mg/dL Ferritin (10.0-291.0) ng/mL 01/21/20 Range/Units 11:46 WBC (3.8-10.6) k/uL RBC (3.80-5.40) m/uL Hgb (11.4-16.0) gm/dL Hct (34.0-46.0) % Plt Count (150-450) k/uL Neutrophils # (Manual) (1.3-7.7) k/uL Lymphocytes # (Manual) (1.0-4.8) k/uL Chloride (98-107) mmol/L BUN (7-17) mg/dL Creatinine (0.52-1.04) mg/dL Glucose (74-99) mg/dL POC Glucose (mg/dL) 190 H (75-99) mg/dL Calcium (8.4-10.2) mg/dL Ferritin (10.0-291.0) ng/mL Assessment and Plan Assessment: -Acute hypoxic respiratory failure: secondary to covid 19 pneumonia. -secondary bacterial pneumonia, with Haemophilus influenza -bacteremia -Toxic encephalopathy, altered mental status: Secondary to infection -Elevated troponin secondary to infection and renal failure -Possible Acute renal failure patient does have chronic kidney disease unable to stage chronic kidney disease as baseline is not known. -Hypertension -Hyperlipidemia -Possible myoclonus: Secondary to encephalopathy -DVT prophylaxis with heparin Recommendations and discussion: Recommend to continue with current medications, management, and symptomatic rony atment. Surgery was consulted for the possibility of a PEG tube as patient continues to be lethargic and is receiving nutrition via NG tube. This was discussed in detail with the daughter Char over the phone. Continue with IV antibiotics along with IV steroids and breathing inhalational treatments. Multiple medical consultations following including pulmonary, neurology, and infectious disease. Nephrology consulted and pending at this time. Current BUN is 106. PT/OT to evaluate the patient. Patient will require ECF for continued rehab once discharged. Speech therapy evaluated the patient at bedside and recommending puree diet with honey thickened liquids. NG tube removed. awaiting for modified barium swallow tomorrow as patient continues to be quite lethargic and drowsy. Maintain strict aspiration precautions and continue with the head of the bed elevated 30-45 degrees. Continue to wean FI02 as tolerated. Currently on 4 L via nasal cannula at 98%. Will repeat am labs and monitor vitals closely. Prognosis remains guarded. Further recommendations to follow.
[2020-01-21] MEDS: hydrALAZINE HCL 20 MG/ML 1 ML VIAL IVP PRN (23:59)
[2020-01-22 00:05] LABS: Glucose,Whole Blood 87 mg/dL (75-99)
[2020-01-22 00:11] LABS: ABG Base Excess -0.3 mmol/L; ABG HCO3 24 mmol/L (21-25); ABG Oxygen Saturation 92.9 % (94-97); ABG PCO2 34 mmHg (35-45); ABG PH 7.45 (7.35-7.45); ABG TCO2 25 mmol/L (19-24); Allen Test Performed? Yes
[2020-01-22 00:13] LABS: ABG PO2 59 mmHg (83-108)
--- NOTE | 2020-01-22 00:22 | PN ---
PROGRESS NOTE DATE OF SERVICE: 01/21/2020 REASON FOR FOLLOWUP: Haemophilus influenzae bacteremia, pneumonia. INTERVAL HISTORY: The patient is currently afebrile. The patient is breathing comfortably. The patient remains to be less responsive, unable to provide any history. She has been tolerating her tube feeds and no diarrhea was reported by nursing staff. PHYSICAL EXAMINATION: Blood pressure 161/95 with a pulse of 66, temperature 97.8. She is 95% on 4 L nasal cannula. General description is an elderly female lying in bed in no distress. RESPIRATORY SYSTEM: Unlabored breathing, decreased breath sounds at the base, no wheeze. HEART: S1, S2. Regular rate and rhythm. ABDOMEN: Soft, no tenderness. LABS: White count down to 16.5. BUN 107, creatinine 1.39. DIAGNOSTIC IMPRESSION AND PLAN: 1. Patient with Haemophilus influenzae bacteremia source likely pneumonia. Patient is covered with Rocephin 2 grams daily and has completed a 2-week course of therapy. I will recommend discontinue antibiotic. 2. Elevated white count more likely steroid effect plus minus oropharyngeal candidiasis which is covered with Eraxis to continue and monitor clinical course closely. MMODL / IJN: [id number] /
--- NOTE | 2020-01-22 00:51 | XR ---
EXAM: XR Chest, 1 View CLINICAL HISTORY: ITS.REASON XR Reason: shortness of breath TECHNIQUE: Frontal view of the chest. COMPARISON: 01/20/2020 FINDINGS: Lungs: Patchy airspace disease in the left mid to lower lung and minimal airspace disease in the peripheral right mid to lower lung. Findings similar to the prior study. Pleural space: Likely small pleural effusions greater on the left side. No pneumothorax. Heart: Unremarkable. No cardiomegaly. Mediastinum: Stable cardiomediastinal silhouette. Bones/joints: Unremarkable. Vasculature: Aortic calcifications. Tubes, lines and devices: Stable left-sided central venous catheter with the tip in the SVC. IMPRESSION: No significant interval change.
[2020-01-22 06:02] LABS: HCT 26.3 % (34.0-46.0); HGB 8.7 gm/dL (11.4-16.0); MCH 30.5 pg (25.0-35.0); MCV 92.5 fL (80.0-100.0); Mean Platelet Volume 11.6; Platelet Count 75 k/uL (150-450); RBC 2.84 m/uL (3.80-5.40); RDW 14.3 % (11.5-15.5); WBC 16.3 k/uL (3.8-10.6)
[2020-01-22 06:46] LABS: Band Neutrophils % 1 %; Lymphocytes # (M) 0.16 k/uL (1.0-4.8); Monocytes # (M) 0.82 k/uL (0-1.0); Neutrophils % (M) 93 %; Nucleated Red Blood Cells 0 /100 WBC (0-0); Total Cells Counted 100
[2020-01-22 07:11] LABS: Glucose,Whole Blood 94 mg/dL (75-99)
[2020-01-22] MEDS: INSULIN ASPART (NovoLOG) 100 UNIT/ML VIAL SQ SCH ×4 (07:24→23:33)
[2020-01-22] MEDS: ALBUTEROL HFA INHALER INHALATION PRN ×2 (08:18→11:45)
[2020-01-22] MEDS: ASCORBIC ACID 500 MG TAB PO SCH ×2 (08:49→23:32)
[2020-01-22] MEDS: LIDOCAINE 5% PATCH TOPICAL SCH (08:49)
[2020-01-22] MEDS: ASPIRIN 81 MG PO SCH (08:49)
[2020-01-22] MEDS: ZINC SULFATE 220 MG CAP PO SCH (08:49)
[2020-01-22] MEDS: ENOXAPARIN 40 MG/0.4 ML SYRINGE SQ SCH ×2 (08:49→23:32)
[2020-01-22] MEDS: methylPREDNISolone SOD SUCCI 40 MG/ML 1 ML VIAL IV SCH (08:49)
[2020-01-22] MEDS: METOPROLOL TARTRATE 50 MG TAB PO SCH ×2 (08:49→23:32)
[2020-01-22] MEDS: CHOLECALCIFEROL 1,000 UNIT TAB PO SCH (08:50)
[2020-01-22] MEDS: SENNOSIDES 8.6 MG TAB PO SCH ×2 (08:50→23:32)
--- NOTE | 2020-01-22 09:25 | FL ---
Modified barium swallow HISTORY: Aspiration 1 minute 51 seconds fluoroscopy time, no images obtained Real-time fluoroscopy was performed in lateral projection during ingestion of barium mixed with vario us liquids. There is some delay in initiation of swallow on imaging. NG tube is in place. Randy aspiration was id entified during nectar thick swallowing. See dictated report speech pathology.
[2020-01-22 09:57] LABS: African American GFR (CKD) 38.5 (60.0-200.0); Albumin 2.8 g/dL (3.80-4.90); BUN/Creat Ratio 77.33 Ratio (12.00-20.00); Calcium 8.1 mg/dL (8.7-10.3); Globulin 1.4 g/dL (1.6-3.3); Magnesium 2.4 mg/dL (1.5-2.4); Non-African American GFR(CKD) 33.3 (60.0-200.0); Potassium 4.5 mmol/L (3.5-5.5); Total Bilirubin 0.5 mg/dL (0.3-1.2); Total Protein 4.2 g/dL (6.2-8.2)
[2020-01-22 11:26] LABS: Glucose,Whole Blood 106 mg/dL (75-99)
[2020-01-22] MEDS ORDERED: FUROSEMIDE 10 MG/ML 4 ML VIAL IV STA (12:24)
--- NOTE | 2020-01-22 12:25 | P.NPCON ---
History of Present Illness - Reason for Consult acute renal failure, chronic renal failure - History of Present Illness Reason for consultation: Acute kidney injury on chronic kidney disease History of present illness: Patient is a 75-year-old female seen in consultation for acute kidney injury on chronic kidney disease. Creatinine was 2.18 on admission on 01/06/2020 and creatinine improved down to 1.27 as of January 17. It has been fairly stable and was 1.5 this morning. According to the daughter she does have history of chronic kidney disease and follows with a vice chairman outpatient. Patient presented to the hospital or shortness of breath. She tested positive for covid 19. Patient completed course of steroids as well as remdesivir. Patient was also in the ICU for several days for hypoxic respiratory failure and was requiring high amounts of oxygen. She is currently on 8 L high flow nasal cannula. Patient is not a reliable historian. She is currently sleeping. She appears quite edematous. Blood pressure stable. She was receiving feeding from the NG tube which is now been removed. She is now on a pured diet. She also had positive blood cultures with Haemophilus influenza and is completed IV antibiotics. She was followed by infectious disease. Vital signs are stable. General: The patient appeared well nourished and normally developed. HEENT: Head exam is unremarkable. LUNGS: Breath sounds decreased. HEART: Rate and Rhythm are regular. ABDOMEN: Soft, nontender. EXTREMITITES: 1+ edema. Past Medical History Past Medical History: Hyperlipidemia, Hypertension History of Any Multi-Drug Resistant Organisms: None Reported Past Surgical History: No Surgical Hx Reported Past Psychological History: No Psychological Hx Reported Smoking Status: Never smoker Past Alcohol Use History: None Reported Past Drug Use History: None Reported - Past Family History Father Family Medical History: Pulmonary Embolus Additional Family Medical History / Comment(s): Mother History Unknown: Yes Additional Family Medical History / Comment(s): " from old age" age 93 Daughter(s) Family Medical History: Hypertension Medications and Allergies Home Medications Medication Instructions Recorded Confirmed Type Albuterol Sulfate [Proventil Hfa] 1 puff INHALATION Q4-6H PRN 01/05/20 01/05/20 History Simvastatin [Zocor] 20 mg PO HS 01/05/20 01/05/20 History allopurinoL [Zyloprim] 100 mg PO DAILY 01/05/20 01/05/20 History cloNIDine HCL [Catapres] 0.2 mg PO Q8H 01/05/20 01/05/20 History traMADol HCL 50 mg PO BID PRN 01/05/20 01/05/20 History Allergies Allergy/AdvReac Type Severity Reaction Status Date / Time No Known Allergies Allergy Verified 01/05/20 23:47 Physical Exam Vitals: Vital Signs Temp Pulse Resp BP BP Pulse Ox 01/22/20 10:00 97.6 F 62 22 164/94 100 01/22/20 05:00 97.3 F L 71 22 149/79 99 01/22/20 01:26 173/86 01/21/20 23:45 175/110 01/21/20 21:15 22 01/21/20 21:02 97.8 F 66 22 161/95 95 01/21/20 18:00 97.8 F 134 H 19 174/112 100 01/21/20 14:00 97.4 F L 65 19 168/93 98 Intake and Output 01/21/20 01/22/20 01/22/20 22:59 06:59 14:59 Other: Voiding Method Indwelling Catheter Weight 88.5 kg 88.5 kg Results - Lab Results Most recent lab results ABG pH 7.45 (7.35-7.45) 01/22/20 00:07 ABG pCO2 34 mmHg (35-45) L 01/22/20 00:07 ABG pO2 59 mmHg (83-108) L* 01/22/20 00:07 ABG HCO3 24 mmol/L (21-25) 01/22/20 00:07 ABG O2 Saturation 92.9 % (94-97) L 01/22/20 00:07 Calcium 8.1 mg/dL (8.7-10.3) L 01/22/20 05:50 Magnesium 2.4 mg/dL (1.5-2.4) 01/22/20 05:50 01/22/20 05:50 01/22/20 05:50 Assessment and Plan Plan: Assessment: 1. Acute kidney injury mostly prerenal secondary to infection. Creatinine was 2.18 on admission and now stable in the range of 1.3-1.5. Disproportionally elevated BUN partially due to steroids. No evidence of GI bleed. 2. Acute hypoxia respiratory failure. 3. Covid19 pneumonia. Maintained on steroids and zinc. Status post remdesivir. 4. Rule out chronic kidney disease. Patient does follow with a vice chairman outpatient. Unknown baseline renal function. 5. Haemophilus influenza bacteremia status post antibiotics. 6. Anemia of chronic kidney disease. Rule out iron deficiency. 7. Volume overload. 8. Acute on chronic diastolic CHF. Plan: Encouraged oral intake. Lasix 40 mg IV once today. Check iron studies. Add Aranesp. Check renal ultrasound. Avoid nephrotoxins. Continue to monitor renal function and urine output. Thank you for the consultation. I will continue to follow the patient with you during her hospital stay.
--- NOTE | 2020-01-22 13:20 | P.PN ---
Subjective Progress Note Date: 01/22/20 CHIEF COMPLAINT: Covid HISTORY OF PRESENT ILLNESS: This is a 74-year-old female who presented to the hospital with hypoxia, elevated troponins and was found to have positive COVID pneumonia. Patient did require ICU care and had been on Airvo and now transitioned to nasal cannula. She is currently on a regular medical floor. She has been very lethargic. She also has been receiving tube feedings via NG tube. She is being evaluated by speech therapy for swallow evaluation. She had modified barium study completed which was positive for aspiration. Patient is undergoing a calorie count to assess if PEG tube placement is needed. Afebrile. WBC 16.3 PHYSICAL EXAM: VITAL SIGNS: Reviewed. GENERAL: Well-developed in no acute distress. HEENT: No sclera icterus. Extraocular movements grossly intact. Moist buccal mucosa. Head is atraumatic, normocephalic. ABDOMEN: Soft. Nondistended. Nontender. ASSESSMENT: 1. Moderate protein calorie malnutrition and poor oral intake 2. Acute hypoxemic respiratory failure secondary to Covid 19 pneumonia 3. Haemophilus influenza bacteremia likely related to pneumonia 4. Acute kidney injury 5. Acute toxic metabolic encephalopathy PLAN: -Patient undergoing 3 day calorie count -If patient fails calorie count she may require PEG tube placement for nutrition support Physician Duco Polisher note has been reviewed by physician. Signing provider agrees with the documented findings, assessment, and plan of care. Objective - Vital Signs Vital signs: Vital Signs Temp 97.6 F 01/22/20 10:00 Pulse 62 01/22/20 10:00 Resp 22 01/22/20 10:00 BP 164/94 01/22/20 10:00 Pulse Ox 100 01/22/20 10:00 Intake & Output 01/21/20 01/22/20 01/22/20 18:59 06:59 18:59 Intake Total 370 Balance 370 Weight 88.5 kg 88.5 kg Intake: Intake, IV Titration 50 Amount cefTRIAXone 2 gm In 50 Sodium Chloride 0.9% 50 ml @ 100 mls/hr IVPB Q24HR [facility] Rx#:[id number] Tube Feeding 320 Other: Voiding Method Indwelling Catheter Indwelling Catheter Indwelling Catheter - Labs CBC & Chem 7: 01/22/20 05:50 01/22/20 05:50 Labs: Abnormal Lab Results - Last 24 Hours (Table) 12/04/1001/21/20 01/22/20 Range/Units 17:02 20:39 00:07 WBC (3.8-10.6) k/uL RBC (3.80-5.40) m/uL Hgb (11.4-16.0) gm/dL Hct (34.0-46.0) % Plt Count (150-450) k/uL Neutrophils # (Manual) (1.3-7.7) k/uL Lymphocytes # (Manual) (1.0-4.8) k/uL ABG pCO2 34 L (35-45) mmHg ABG pO2 59 L* (83-108) mmHg ABG Total CO2 25 H (19-24) mmol/L ABG O2 Saturation 92.9 L (94-97) % Chloride (96-109) mmol/L BUN (9.0-27.0) mg/dL Est GFR (CKD-EPI)AfAm (60.0-200.0) Est GFR (CKD-EPI)NonAf (60.0-200.0) BUN/Creatinine Ratio (12.00-20.00) Ratio POC Glucose (mg/dL) 183 H 121 H (75-99) mg/dL Calcium (8.7-10.3) mg/dL ALT (8-44) U/L Total Protein (6.2-8.2) g/dL Albumin (3.80-4.90) g/dL Globulin (1.6-3.3) g/dL 01/22/20 01/22/20 01/22/20 Range/Units 05:50 05:50 11:24 WBC 16.3 H (3.8-10.6) k/uL RBC 2.84 L (3.80-5.40) m/uL Hgb 8.7 L (11.4-16.0) gm/dL Hct 26.3 L (34.0-46.0) % Plt Count 75 L (150-450) k/uL Neutrophils # (Manual) 15.30 H (1.3-7.7) k/uL Lymphocytes # (Manual) 0.16 L (1.0-4.8) k/uL ABG pCO2 (35-45) mmHg ABG pO2 (83-108) mmHg ABG Total CO2 (19-24) mmol/L ABG O2 Saturation (94-97) % Chloride 112 H (96-109) mmol/L BUN 116.0 H* (9.0-27.0) mg/dL Est GFR (CKD-EPI)AfAm 38.5 L (60.0-200.0) Est GFR (CKD-EPI)NonAf 33.3 L (60.0-200.0) BUN/Creatinine Ratio 77.33 H (12.00-20.00) Ratio POC Glucose (mg/dL) 106 H (75-99) mg/dL Calcium 8.1 L (8.7-10.3) mg/dL ALT 48 H (8-44) U/L Total Protein 4.2 L (6.2-8.2) g/dL Albumin 2.80 L (3.80-4.90) g/dL Globulin 1.4 L (1.6-3.3) g/dL
[2020-01-22] MEDS: DARBEPOETIN ALFA 40 MCG/0.4 ML SYRINGE SQ SCH (13:58)
--- NOTE | 2020-01-22 14:04 | P.PN ---
Subjective Progress Note Date: 01/22/20 This is a 75-year-old female who was admitted for hypoxia, elevated troponins and was found to have Covid 19 and is being closely monitored. Patient was recently in the intensive care unit and transferred as respiratory status continued to improve. She was on airvo 2 days ago and has been transitioned to 8 L high flow. Patient is currently on 4 L via nasal cannula and oxygen saturations are being maintained in the 90s. Patient continues to be confused and quite lethargic although is more awake today. Patient is following some simple commands and able to state her name although has a very weak voice and is soft spoken. Patient recently underwent swallow eval although is a high risk for aspiration due to her increased level of lethargy. Patient does have a diet order pured with honey thickened liquids and is currently undergoing a calorie count with the possibility of PEG tube placement. Surgery is following. Nephrology consulted as patient does have chronic kidney disease although b aseline creatinine is unknown and patient follows with a materials research engineer in the outpatient setting per daughter. BUN continues to be elevated and is currently 116 today, creatinine is improved at 1.5. An A team was called last night for elevated blood pressure and increased fatigue with attempts to replace the NG tube while nurses met resistance and patient became more alert and resisting NG tube placement. Patient continues to be quite edematous in bilateral upper and lower extremities and generalized and will receive a dose of Lasix today. Multiple medical consultations following as prognosis remains guarded. No reports of chest pain or shortness of breath. Patient is afebrile. Patient continues to have poor oral intake with strict aspiration precautions and one-to-one supervision. No vomiting noted per staff. Review of systems: Unable to obtain given patient's confusional state and increased fatigue Active Medications Acetaminophen (Acetaminophen Tab 325 Mg Tab) 650 mg PO Q6HR PRN PRN Reason: Mild Pain or Fever > 100.5 Last Admin: 01/07/20 22:43 Dose: 650 mg Documented by: Albuterol Sulfate (Albuterol Hfa Inhaler) 2 puff INHALATION RT-Q6H PRN PRN Reason: Shortness Of Breath Or Wheezing Last Admin: 01/22/20 11:45 Dose: 2 puff Documented by: Ascorbic Acid (Ascorbic Acid 500 Mg Tab) 500 mg PO BID ANDREA Last Admin: 01/22/20 08:49 Dose: 500 mg Documented by: Aspirin (Aspirin 81 Mg) 81 mg PO DAILY [facility] Last Admin: 01/22/20 08:49 Dose: 81 mg Documented by: Cholecalciferol (Cholecalciferol 1,000 Unit Tab) 5,000 unit PO DAILY [facility] Last Admin: 01/22/20 08:50 Dose: 5,000 unit Documented by: Clonidine HCl (Clonidine 0.3 Mg/24hr Patch) 1 patch TRANSDERM Q7D [facility] Last Admin: 01/17/20 12:06 Dose: 1 patch Documented by: Darbepoetin Dean (Darbepoetin Dean 40 Mcg/0.4 Ml Syringe) 40 mcg SQ Q7D [facility] Enoxaparin Sodium (Enoxaparin 40 Mg/0.4 Ml Syringe) 40 mg SQ Q12HR [facility] Last Admin: 01/22/20 08:49 Dose: 40 mg Documented by: Haloperidol Lactate (Haloperidol Lactate 5 Mg/Ml 1 Ml Vial) 1 mg IVP Q6HR PRN PRN Reason: Agitation or Acute Psychosis Hydralazine HCl (Hydralazine Hcl 20 Mg/Ml 1 Ml Vial) 10 mg IVP Q6HR PRN PRN Reason: Blood Pressure - High Last Admin: 01/21/20 23:59 Dose: 10 mg Documented by: Sodium Chloride (Saline 0.45%) 1,000 mls @ 20 mls/hr IV .Q24H [facility] Last Admin: 01/21/20 20:41 Dose: Not Given Documented by: Anidulafungin 100 mg/ Sodium (Chloride) 100 mls @ 84 mls/hr IVPB [facility] Last Admin: 01/21/20 21:15 Dose: 84 mls/hr Documented by: Insulin Aspart (Insulin Aspart (Novolog) 100 Unit/Ml Vial) 0 unit SQ [facility]; Protocol Last Admin: 01/22/20 11:33 Dose: Not Given Documented by: Insulin Detemir (Insulin Detemir (Levemir) 100 Unit/Ml Syr) 10 unit SQ [facility] Last Admin: 01/21/20 21:15 Dose: 10 unit Documented by: Lidocaine (Lidocaine 5% Patch) 1 patch TOPICAL DAILY [facility] Last Admin: 01/22/20 08:49 Dose: 1 patch Documented by: Methylprednisolone Sodium Succinate (Methylprednisolone Sod Succi 40 Mg/Ml 1 Ml Vial) 40 mg IV Q12HR [facility] Last Admin: 01/22/20 08:49 Dose: 40 mg Documented by: Metoprolol Tartrate (Metoprolol Tartrate 50 Mg Tab) 50 mg PO BID [facility] Last Admin: 01/22/20 08:49 Dose: 50 mg Documented by: Miscellaneous Information (Potassium Replacement Protocol 1 Each Misc) 1 each MISCELLANE DAILY PRN; Protocol PRN Reason: Per Protocol Naloxone HCl (Naloxone 0.4 Mg/Ml 1 Ml Vial) 0.2 mg IV Q2M PRN PRN Reason: Opioid Reversal Quetiapine Fumarate (Quetiapine 25 Mg Tab) 25 mg PO HS PRN PRN Reason: Agitation Senna (Sennosides 8.6 Mg Tab) 8.6 mg PO BID [facility] Last Admin: 01/22/20 08:50 Dose: Not Given Documented by: Zinc Sulfate (Zinc Sulfate 220 Mg Cap) 220 mg PO DAILY [facility] Last Admin: 01/22/20 08:49 Dose: 220 mg Documented by: Objective - Vital Signs Vital signs: Vital Signs Temp 97.3 F L 01/22/20 05:00 Pulse 71 01/22/20 05:00 Resp 22 01/22/20 05:00 BP 149/79 01/22/20 05:00 Pulse Ox 99 01/22/20 05:00 Intake & Output 01/21/20 01/22/20 01/22/20 18:59 06:59 18:59 Intake Total 370 Balance 370 Weight 88.5 kg Intake: Intake, IV Titration 50 Amount cefTRIAXone 2 gm In 50 Sodium Chloride 0.9% 50 ml @ 100 mls/hr IVPB Q24HR [facility] Rx#:[id number] Tube Feeding 320 Other: Voiding Method Indwelling Catheter Indwelling Catheter - Exam GENERAL: lethargic although arousable. More awake today. Well developed, well nourished. Temp is 97.6F, pulse is 62, respirations are 22, blood pressure is 164/94, oxygen saturation is 100 % on 8 L via nasal cannula HF, weaning FiO2 HEENT: Pupils are round and equally reacting to light. EOMI. No scleral icterus. No conjunctival pallor. Normocephalic, atraumatic. No pharyngeal erythema. No thyromegaly. Oral mucosa is dry CARDIOVASCULAR: S1 and S2 muffled. No murmurs, rubs, or gallops. PULMONARY: diminished breath sounds bilaterally with some scattered rhonchi noted ABDOMEN: Soft, nontender, nondistended, normoactive bowel sounds. No palpable organomegaly. MUSCULOSKELETAL: No joint swelling or deformity. EXTREMITIES: No cyanosis, clubbing, or pedal edema. Bilateral upper and lower extremity pitting edema noted, 3+ NEUROLOGICAL: Lethargic although more easily arousable to name today. Gross neurological examination did not reveal any focal deficits. Diffusely weak - Labs CBC & Chem 7: 01/22/20 05:50 01/22/20 05:50 Labs: Abnormal Lab Results - Last 24 Hours (Table) 01/21/20 01/21/20 01/21/20 Range/Units 10:27 10:27 11:46 WBC 16.5 H (3.8-10.6) k/uL RBC 2.92 L (3.80-5.40) m/uL Hgb 9.1 L (11.4-16.0) gm/dL Hct 27.2 L (34.0-46.0) % Plt Count 75 L (150-450) k/uL Neutrophils # (Manual) 15.68 H (1.3-7.7) k/uL Lymphocytes # (Manual) 0.17 L (1.0-4.8) k/uL ABG pCO2 (35-45) mmHg ABG pO2 (83-108) mmHg ABG Total CO2 (19-24) mmol/L ABG O2 Saturation (94-97) % Chloride 109 H (98-107) mmol/L BUN 107 H* (7-17) mg/dL Creatinine 1.39 H (0.52-1.04) mg/dL Glucose 165 H (74-99) mg/dL POC Glucose (mg/dL) 190 H (75-99) mg/dL Calcium 7.8 L (8.4-10.2) mg/dL 01/21/20 01/21/20 01/22/20 Range/Units 17:02 20:39 00:07 WBC (3.8-10.6) k/uL RBC (3.80-5.40) m/uL Hgb (11.4-16.0) gm/dL Hct (34.0-46.0) % Plt Count (150-450) k/uL Neutrophils # (Manual) (1.3-7.7) k/uL Lymphocytes # (Manual) (1.0-4.8) k/uL ABG pCO2 34 L (35-45) mmHg ABG pO2 59 L* (83-108) mmHg ABG Total CO2 25 H (19-24) mmol/L ABG O2 Saturation 92.9 L (94-97) % Chloride (98-107) mmol/L BUN (7-17) mg/dL Creatinine (0.52-1.04) mg/dL Glucose (74-99) mg/dL POC Glucose (mg/dL) 183 H 121 H (75-99) mg/dL Calcium (8.4-10.2) mg/dL 01/22/20 Range/Units 05:50 WBC 16.3 H (3.8-10.6) k/uL RBC 2.84 L (3.80-5.40) m/uL Hgb 8.7 L (11.4-16.0) gm/dL Hct 26.3 L (34.0-46.0) % Plt Count 75 L (150-450) k/uL Neutrophils # (Manual) 15.30 H (1.3-7.7) k/uL Lymphocytes # (Manual) 0.16 L (1.0-4.8) k/uL ABG pCO2 (35-45) mmHg ABG pO2 (83-108) mmHg ABG Total CO2 (19-24) mmol/L ABG O2 Saturation (94-97) % Chloride (98-107) mmol/L BUN (7-17) mg/dL Creatinine (0.52-1.04) mg/dL Glucose (74-99) mg/dL POC Glucose (mg/dL) (75-99) mg/dL Calcium (8.4-10.2) mg/dL Assessment and Plan Assessment: -Acute hypoxic respiratory failure: secondary to covid 19 pneumonia. -secondary bacterial pneumonia, with Haemophilus influenza -bacteremia -Toxic encephalopathy, altered mental status: Secondary to infection -Elevated troponin secondary to infection and renal failure -Acute kidney injury secondary to infection patient does have chronic kidney disease unable to stage chronic kidney disease as baseline is not known. -Hypertension -Hyperlipidemia -Possible myoclonus: Secondary to encephalopathy -DVT prophylaxis with heparin Recommendations and discussion: Recommend to continue with current medications, management, and symptomatic treatment. Surgery following for the possibility of a PEG tube as patient continues to be lethargic and continued poor oral intake. Patient currently undergoing three-day calorie count. Continue with IV antibiotics along with IV steroids and breathing inhalational treatments. Multiple medical consultations following including pulmonary, neurology, and infectious disease. Nephrology following. Current BUN is 116 creatinine trending down at 1.5. PT/OT to evaluate the patient. Patient will require ECF for continued rehab once discharged. Speech therapy evaluated the patient at bedside and recommending puree diet with honey thickened liquids. NG tube removed. Maintain strict aspiration precautions and continue with the head of the bed elevated 30-45 degrees with one-to-one supervision. Continue to wean FI02 as tolerated. Patient had increased fatigue and confusion at night and was placed on 8 L high flow status post ABG. Currently on 4 L via nasal cannula at 98%. Will repeat am labs and monitor vitals closely. Prognosis remains guarded. Further recommendations to follow. Time with Patient: Greater than 30
--- NOTE | 2020-01-22 14:39 | P.PN ---
Subjective Progress Note Date: 01/22/20 Principal diagnosis: COVID 19 pneumonia A 74-year-old female patient, very poor historian with what seems to be advanced dementia in addition to history of hypertension and hyperlipidemia was coming in for shortness of breath and hypoxemia and this has been confirmed to be related to COVID 19 infection/pneumonia. The patient was transferred from an outside hospital. The patient is unable to give any further history. Review of her chest x-ray shows that the patient is a peripheral patchy pulmonary interstitial airspace disease infiltrates bilaterally and the patient is currently on 8 L of oxygen by nasal cannula to maintain a saturation above 90%. Her current pulse ox is around 93%. The white cell count is at 10.6. The patient also has a renal failure and the chronicity of the renal failure is not established. Her previous creatinine is unknown to me at this point in time. She also has a mild component of anion gap metabolic acidosis with a anion gap of 14 and a serum bicarb level of 17. LDH is 1213 and the patient is a CRP of 301. Also, the patient had a troponin leak with troponin levels being at 0.1 0.1 and 0.2 respectively. Pro calcitonin level was elevated at 1.54. She is afebrile. The blood cultures from the outside hospital showing gram-positive cocci and is not sure if it was in clusters overnight. The patient was started on vancomycin as an empiric antibiotic coverage. In terms of Covid 19 infection, the patient was started on a combination of Decadron and Remdesivir The patient is seen today 01/07/2020 in follow-up on selective care unit. She does have advanced dementia and is a poor historian. She is currently resting fairly comfortably in bed. She is on 8 L high flow nasal cannula to maintain O2 saturations in the 90s. She's afebrile. Hemodynamically stable. White count 27.1. Hemoglobin 12.2. Lymphocytes 0.81. Sodium 139. Potassium 4.2. Bicarb 14. Creatinine 2.06. AST 102. ALT 47. Troponin 0.266. C-reactive protein 192. Pro calcitonin 1.45. She remains on Decadron, vitamin C, vitamin D, zinc. She is receiving day #2 of Remdesivir. On 01/08/2020, the patient has been transferred to the intensive care unit. The patient developed progressive dyspnea tachypnea and hypoxemia overnight and the patient had to be transferred to the intensive care unit. At this point in time, the patient is confused, lethargic, at times agitated, unable to follow any commands and unable to hold a conversation. She gets quite restless when stimulated. She is sensing critical condition on 4 extremities. No neck stiffness. She is moving all 4 extremities and the patient has no focal neurological deficits. No neck stiffness. The patient was noted to have a possible culture an outside hospital and the patient was given vancomycin in addition to Zithromax and Rocephin per IDs recommendation. Nevertheless, based on our cultures, the results are still negative for now and there is no clear evidence of any bacterial infection at this point in time. Noted the Pro calcitonin level was elevated. At the same time, the patient has acute Covid 19 related to pneumonia bilateral. The patient is on high flow oxygen at 15 L with an FiO2 of 73% to maintain a saturation above 90%. A triple lumen catheter was established in the left subclavian. The chest x-ray post line insertion showed no evidence of any pneumothorax. Nevertheless, there was dense bilateral pulmonary infiltrates consistent with coronavirus Covid 19 related pneumonia. The patient is obviously tachypneic. She is having respiratory distress even on high flow oxygen. No use of accessory muscles of breathing. The blood work from today shows a troponin of 0.23. Vancomycin level is at 19.9. The patient a component of non-anion gap metabolic acidosis from yesterday. The patient is a bicarb drip which is running at 100 mL an hour. Serum bicarb is up to 18. Creatinine is down to 1.9, somewhat improved compared to yesterday. At the same time, the patient is being treated with a combination of Decadron, vitamin C, vitamin D, zinc. She is receiving day #3 of Remdesivir. On 01/09/2020, the patient seems to be less agitated as the patient was started on Precedex which is currently running at 0.25 mg per KG per minute. The patient seems to much more comfortable at this point in time. She remains on high flow oxygen 55 L with an FiO2 of 85% with a pulse ox of 96%. The patient's chest x-ray still showing diffuse breath and pulmonary infiltrates. Note that the patient was infected with Covid 19 and she had a Covid 19 related pneumonia in addition to septic shock secondary to Haemophilus influenza bacteremia. No elbert the patient's blood culture came back positive for Haemophilus influenza. The patient is currently on IV Rocephin 2 g every 24 hours in regards to this septicemia. The patient is also being treated for coronavirus Covid 19 pneumonia with a combination of Decadron and Remdesivir and the patient also received a unit of, convalescent plasma. The patient has a ferritin level of 3188. The patient has a LDH of 1147 and the CRP is down to 122. The patient is afebrile. Renal function and for the creatinine is down to 1.7. Serum bicarbs of 28 and the patient was being given D5 with 3 A of bicarb at the rate of 100 mL an hour. She is afebrile. She is still moans and at times becomes restless and tremulous. Nevertheless, there is no seizure activity noted and the patient is not able to follow single commands. Which are diffuse. There is peripheral infiltrate in the right and the left. There is somewhat improvement in pulmonary infiltration. Is a left sided subclavian triple-lumen catheter in place. The Pro calcitonin level is down to 1.45. 01/10/2020, the patient remains on Precedex and seems to be quite comfortable at a dose of 0.35 mcg per KG per hour. The patient is also on high flow oxygen at 55 L with an FiO2 of 80%. She is able to maintain a saturation above 90%. The chest x-ray is showing persistent airspace disease throughout the left lung which remains unchanged compared to yesterday. There is also scattered infiltration within the periphery of the right lung which probably have improved on today's evaluation. Note that the patient also had a positive blood culture with Haemophilus influenza. Accordingly, the patient was treated with IV Rocephin 2 g every 24 hours. The Pro calcitonin level is on the decline is currently down to 0.42. Hemodynamically stable and the patient is not requiring any pressors and she is receiving normal saline today to 75 mL an hour. The patient blood work showed a sodium of 147, BUN of 65 with a creatinine of 1.5, and the patient has an LDH of 1789, CRP of 73, and a d-dimer today's at 3.79. 01/11/2020, I'm seeing the patient for a follow-up. Her condition essentially unchanged compared to yesterday. The patient is still requiring Precedex to control her agitation and restlessness pH she remains on Precedex at a dose of 0.4 g per KG per minute. This is able to control her condition quite well. Meanwhile, the patient continues to remain hypoxic respiratory failure. She has required high flow oxygen at 55 L and FiO2 of 60%. The patient is on half- normal saline at the rate of 75 mL an hour. Urine output in the order of 70 mL an hour. Input output balance is positive for 21 mL over the past 24 hours. The patient's renal function with a creatinine of 1.47 which is improved compared to yesterday. Sodium level remains unchanged at 147. Chest x-ray findings are essentially stable with diffuse breath and pulmonary infiltrates consistent with Covid 19 related pneumonia. The patient remains on IV Decadron. The patient remains on IV Rocephin regarding her Haemophilus influenza septicemia. Hemodynamically stable. Maintaining her on blood pressure. She remains on Lovenox 40 mg subcu every 12 hours. Reevaluated today on 01/12/20, remains in the ICU, remains on airvo at 60 L/m flow, and 58% FiO2. O2 sats is 96%. Patient was admitted on 01/04, transferred to the ICU on 01/06. Receiving small dose of Precedex because of extreme agitation on presentation, patient is on Lovenox Q at 40 mg subcu twice a day, patient is also being treated with Rocephin for presumptive Haemophilus influenza pneumonia. Patient has not been eating, hence I will recommend a nasogastric tube placement and enteral feeding. She will be seen by neurology on consultation as the patient seems to be quite confused. And extremely stiff and rigid. Her CT of the brain showed mild generalized atrophy and air fluid levels in the right sphenoid sinus. Likely secondary to acute sinusitis. Chest x-ray shows bilateral peripheral extensive infiltrates consistent with Covid 19 pneumonitis. On 01/13/2020 patient seen in follow-up in the intensive care unit, she is resting quietly in bed, appears to be in no acute distress, remains on high flow oxygen per Airvo at 45 L/m, with FiO2 of 45%. Her pulse ox currently is 96-98%. Breathing appears to be comfortable, no respiratory distress, she did have a fever spike this morning with a temp of 101.1F, dynamically stable, she receiving 0.45 at 75 ML per hour, NG tube was inserted yesterday for nutritional support and she has Glucerna tube feedings infusing at 20 ML per hour, with a goal of 40. Did water flushes, patient remains confused, however she is not agitated. Denies any significant distress, today's chest x-ray has been reviewed showing patchy and confluent peripheral infiltrates. And worsening airspace disease at the left base. Patient completed her Remdesivir course on 01/10/2020. She received 1 unit of convalescent plasma, is receiving IV Decadron, 6 mg daily, she is on Lovenox at 40 mg twice daily, and her last d- dimer on 01/12/2020 was downtrending and down to 2.89. Her labs have been reviewed today, her white blood cell count is 26.2, hemoglobin is 11.1, sodium is 143, potassium is 4.1, chloride is 112, CO2 is 25, BUN is 67, creatinine is 1.35, renal profile is actually improving, ferritin is 3122, LDH has trended some, and is up to 1778, however her CRP is trending down, and is down to 32.4. Her last Pro calcitonin was downtrending, and was at 0.282 days ago. She is on any medical coverage in the form of Rocephin, ID service is following On 01/19/2020 patient seen in follow-up in the intensive care unit, she remains on high flow oxygen per Airvo at 35 L/m, and FiO2 of 50% with a pulse ox of 94%, she is afebrile, hemodynamically she stable, she is on 0.45 normal seen at a rate of 75 ML per hour, she receiving nutritional support via NG tube with the Glucerna 1.2 at a rate of 40 mL an hour, tolerating tube feedings well. She remains confused, and lethargic most of the time, neurology is following, and patient is no sweats toxic metabolic encephalopathy. Today's chest x-ray has been reviewed showing stable left greater than the right peripheral interstitial infiltrates and small left pleural effusion. She is status post Remdesivir, 1 unit of fresh frozen convalescent plasma, remains on high-dose IV steroids at 60 mg every 6 hours. Pneumatics no form of Rocephin and he relaxes, ID service is following. Blood culture from 01/07/2020 was found to be positive for Haemophilus influenza, follow blood culture has been negative, urine culture came back negative. His labs have been reviewed, showing white blood cell count of 24.1, hemoglobin of 10, sodium 135, demonstrate electrolytes were within normal limits, BUN of 83 and creatinine of 1.31. Profile is relatively stable. On 01/20/2020 patient seen in follow-up in the intensive care unit, if she remains on high flow oxygen per Airvo at 35 L/m, and FiO2 of 45%, currently O2 sat at 98%. Breathing comfortably, she is drowsy, but arousable to verbal stimuli, she's been afebrile, hemodynamically she stable, she is on 0.45 normal saline at a rate of 20 ML per hour, no other drips, NG tube is in place for tube feedings and she is receiving Glucerna at a rate of 40 ML per hour with a goal of 40. Today's chest x-ray has been reviewed showing bilateral areas of infiltrates that are stable with small bilateral pleural effusions. Remains on empiric antibiotics in the form of ceftriaxone and Eraxis, ID service is following, follow blood cultures have been negative, sputum culture has been negative. She has had no acute events overnight. His labs have been reviewed, white blood cell count is trending down and come down to 19.9, hemoglobin is 9.8, sodium is 135, the rest of the electrolytes are within normal limits, B1 is 100, and creatinine is 1.36. On 01/21/2020 patient seen in follow-up on general medical surgical floor, she was transferred out of intensive care unit yesterday, FiO2 is being weaned down, she is currently on 4 L per high flow oxygen, her pulse ox is 98%, oxygenation has significantly improved, she's been afebrile, hemodynamically stable, she still remains somewhat encephalopathic, sleepy, NG tube remains in place with tube feedings infusing, she is awaiting speech evaluation, her mental status permitting. She's had no acute events overnight, she remains on Rocephin, Eraxis, her follow-up blood cultures and sputum cultures have shown no growth. 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 With the upright position and direct supervision. Otherwise she appears to be in no acute distress, breathing comfortably, no cough, she's had no fever or chills. Today's labs have been reviewed, showing white blood cell count of 16.3, hemoglobin of 8.7, sodium is 145, potassium is 4.5, chloride is 112, BUN is 116, creatinine is 1.5. Objective - Vital Signs Vital signs: Vital Signs Temp 97.6 F 01/22/20 10:00 Pulse 62 01/22/20 10:00 Resp 22 01/22/20 10:00 BP 164/94 01/22/20 10:00 Pulse Ox 100 01/22/20 10:00 Intake & Output 01/21/20 01/22/20 01/22/20 18:59 06:59 18:59 Intake Total 370 Balance 370 Weight 88.5 kg 88.5 kg Intake: Intake, IV Titration 50 Amount cefTRIAXone 2 gm In 50 Sodium Chloride 0.9% 50 ml @ 100 mls/hr IVPB Q24HR [facility] Rx#:[id number] Tube Feeding 320 Other: Voiding Method Indwelling Catheter Indwelling Catheter Indwelling Catheter - Exam GENERAL EXAM: Alert, confused, but not agitated, 75-year-old white female, on 8 l/min with a pulse ox of 98% comfortable in no apparent distress. HEAD: Normocephalic/atraumatic. EYES: Normal reaction of pupils, equal size. Conjunctiva pink, sclera white. NOSE: Clear with pink turbinates. NG-tube has been removed THROAT: No erythema or exudates. NECK: No masses, no JVD, no thyroid enlargement, no adenopathy. CHEST: No chest wall deformity. Symmetrical expansion. LUNGS: Equal air entry with no crackles, wheeze, rhonchi or dullness. CVS: Regular rate and rhythm, normal S1 and S2, no gallops, no murmurs, no rubs ABDOMEN: Soft, nontender. No hepatosplenomegaly, normal bowel sounds, no guarding or rigidity. EXTREMITIES: No clubbing, no edema, no cyanosis, 2+ pulses and upper and lower extremities. MUSCULOSKELETAL: Muscle strength and tone normal. SPINE: No scoliosis or deformity SKIN: No rashes CENTRAL NERVOUS SYSTEM: Confused, but not agitated No focal deficits, tone is normal in all 4 extremities. - Labs CBC & Chem 7: 01/22/20 05:50 01/22/20 05:50 Labs: Abnormal Lab Results - Last 24 Hours (Table) 01/21/20 01/21/20 01/22/20 Range/Units 17:02 20:39 00:07 WBC (3.8-10.6) k/uL RBC (3.80-5.40) m/uL Hgb (11.4-16.0) gm/dL Hct (34.0-46.0) % Plt Count (150-450) k/uL Neutrophils # (Manual) (1.3-7.7) k/uL Lymphocytes # (Manual) (1.0-4.8) k/uL ABG pCO2 34 L (35-45) mmHg ABG pO2 59 L* (83-108) mmHg ABG Total CO2 25 H (19-24) mmol/L ABG O2 Saturation 92.9 L (94-97) % Chloride (96-109) mmol/L BUN (9.0-27.0) mg/dL Est GFR (CKD-EPI)AfAm (60.0-200.0) Est GFR (CKD-EPI)NonAf (60.0-200.0) BUN/Creatinine Ratio (12.00-20.00) Ratio POC Glucose (mg/dL) 183 H 121 H (75-99) mg/dL Calcium (8.7-10.3) mg/dL ALT (8-44) U/L Total Protein (6.2-8.2) g/dL Albumin (3.80-4.90) g/dL Globulin (1.6-3.3) g/dL 01/22/20 01/22/20 01/22/20 Range/Units 05:50 05:50 11:24 WBC 16.3 H (3.8-10.6) k/uL RBC 2.84 L (3.80-5.40) m/uL Hgb 8.7 L (11.4-16.0) gm/dL Hct 26.3 L (34.0-46.0) % Plt Count 75 L (150-450) k/uL Neutrophils # (Manual) 15.30 H (1.3-7.7) k/uL Lymphocytes # (Manual) 0.16 L (1.0-4.8) k/uL ABG pCO2 (35-45) mmHg ABG pO2 (83-108) mmHg ABG Total CO2 (19-24) mmol/L ABG O2 Saturation (94-97) % Chloride 112 H (96-109) mmol/L BUN 116.0 H* (9.0-27.0) mg/dL Est GFR (CKD-EPI)AfAm 38.5 L (60.0-200.0) Est GFR (CKD-EPI)NonAf 33.3 L (60.0-200.0) BUN/Creatinine Ratio 77.33 H (12.00-20.00) Ratio POC Glucose (mg/dL) 106 H (75-99) mg/dL Calcium 8.1 L (8.7-10.3) mg/dL ALT 48 H (8-44) U/L Total Protein 4.2 L (6.2-8.2) g/dL Albumin 2.80 L (3.80-4.90) g/dL Globulin 1.4 L (1.6-3.3) g/dL Assessment and Plan Plan: Assessment: #1. Acute hypoxemic respiratory failure related to acute COVID 19 pneumonia, has completed a course of Remdesivir, and received 1 unit of convalescent plasma in addition to IV steroids, since oxygenation has significantly improved since admission, currently down to 4 L of oxygen with pulse ox of 98% #2. Haemophilus influenza bacteremia likely related to pneumonia, community- acquired, patient is on Rocephin for antibiotic coverage. Follow up blood culture and sputum culture have shown no growth #3. Acute kidney injury, improved since admission #4. Acute toxic metabolic encephalopathy secondary to the above #5. Hypertension #6. Dyslipidemia #7. Altered mental status/encephalopathy related to toxic metabolic encephalopathy #8. Elevated troponin secondary to infection and acute kidney injury #9. Generalized edema and third spacing, small bilateral pleural effusions, related to fluid volume overload Plan: We'll cut back the Solu-Medrol to 40 mg daily, continue weaning FiO2, maintain aspiration precautions, continue with anticoagulation, physical therapy, we will continue to follow I performed a history & physical examination of the patient and discussed their management with my nurse practitioner, Anna Brown. I reviewed the nurse pra ctitioner's note and agree with the documented findings and plan of care. Lung sounds are positive for diminished breath sounds The findings and the impression was discussed with the patient. I attest to the documentation by the nurse practitioner. Time with Patient: Less than 30
--- NOTE | 2020-01-22 15:53 | US ---
EXAMINATION TYPE: US kidneys/renal and bladder DATE OF EXAM: 01/22/2020 COMPARISON: NONE CLINICAL HISTORY: 75 year-old female acute kidney injury TECHNIQUE: Multiple sonographic images of the kidneys and bladder are obtained. FINDINGS: Sonography notes: Exam extremely limited due to excessive exterior light coming into the patient's ro om. Patient also of large body habitus and unable to roll. EXAM MEASUREMENTS: Right Kidney: 7.8 x 4.0 x 3.3 cm Left Kidney: Unable to visualize due to patient unable to appropriately position and due to glare on the screen. Right Kidney: Limited, cystic area seen lower pole measures 2.6cm. No evident hydronephrosis. Left Kidney: Unable to adequately visualize. Bladder: Limited assessment. Pablo catheter in place. IMPRESSION: 1. Suboptimal conditions within the patient's room for portable scanning. The left kidney could not b e evaluated at all. Limited right kidney but without obvious hydronephrosis. 2. A 2.6 cm cyst within the right kidney. 3. Pablo catheter in place.
--- NOTE | 2020-01-22 16:03 | US ---
EXAMINATION TYPE: US venous doppler duplex UE DATE OF EXAM: 01/22/2020 COMPARISON: NONE CLINICAL HISTORY: 75-year-old female edema. Bilateral arm swelling SIDE PERFORMED: Bilateral TECHNIQUE: Grayscale, color doppler, spectral doppler imaging performed of the deep veins of the upp er extremities. FINDINGS: Hospice Care Consultant notes:Extremely limited exam, pt morbidly obese, immobile Right Arm: No evidence of DVT within subclavian, axillary, brachial, ulnar, and radial veins Right IJV, cephalic, and basilic vein not visualized due to large pt body habitus, immobility, and swelling Right anterior upper arm complex mass= 7.8 x 3.1 x 4.3 cm Left Arm: No evidence of DVT within subclavian, axillary, brachial, and radial veins Left IJV, cephalic, basilic, and ulnar veins not visualized due to large pt body habitus, immobilit y, and swelling IMPRESSION: 1. Very limited exam due to patient's immobility and large body habitus. Unable to assess the bilater al internal jugular veins, cephalic, and basilic veins. The left ulnar veins could also not evaluated . 2. The bilateral subclavian, axillary, and brachial veins are patent. 3. Complex solid cystic mass within the anterior right arm measuring 7.8 x 4.3 x 2.1 cm. Correlate as to possible etiologies such as hematoma or neoplasm. CT or MRI versus ultrasound follow-up as indica elbert.
[2020-01-22 17:05] LABS: Glucose,Whole Blood 95 mg/dL (75-99)
[2020-01-22 20:17] LABS: Glucose,Whole Blood 101 mg/dL (75-99)
[2020-01-22 21:46] LABS: % Iron Saturation 50.68 (12.00-45.00)
[2020-01-22 23:00] LABS: Ferritin 2927.1 ng/mL (10.0-291.0)
--- NOTE | 2020-01-22 23:11 | PN ---
PROGRESS NOTE DATE OF SERVICE: 01/22/2020 REASON FOR FOLLOWUP: 1. Haemophilus influenzae bacteremia pneumonia. 2. Oropharyngeal candidiasis. INTERVAL HISTORY: The patient is afebrile. The patient remains sleepy and lethargic, unable to provide any history. The patient did have NG for feeding. No vomiting, diarrhea or other changes reported by the nursing staff. PHYSICAL EXAMINATION: Blood pressure 152/83, pulse of 64, temperature 97.4. She is 93% on 4 L nasal cannula. General description is an elderly female lying in bed in no distress. RESPIRATORY SYSTEM: Unlabored breathing with decreased breath sounds at the base. No wheeze. HEART: S1, S2. Regular rate and rhythm. ABDOMEN: Soft. No tenderness. LABS: Hemoglobin 8.7, white count 16.3. BUN of 115, creatinine is 1.5. DIAGNOSTIC IMPRESSION AND PLAN: 1. Patient with Haemophilus influenzae bacteremia. Source is likely pneumonia that has been adequately treated. Follow-up blood culture has been negative. The patient is currently off Rocephin. 2. Elevated white count, multifactorial, possibly steroid effect plus/minus oropharyngeal candidiasis. Steroid has been cut back. Continue with Eraxis and monitor clinical course closely. MMODL / IJN: [id number] /
[2020-01-22 23:31] LABS: Glucose,Whole Blood 121 mg/dL (75-99)
[2020-01-22] MEDS: INSULIN DETEMIR (LEVEMIR) 100 UNIT/ML SYR SQ SCH (23:33)
[2020-01-23] MEDS: ANIDULAFUNGIN 100 MG in SODIUM CHLORIDE 0.9% 100 ML IVPB SCH ×2 (00:33→20:32)
[2020-01-23] MEDS: hydrALAZINE HCL 20 MG/ML 1 ML VIAL IVP PRN (02:34)
[2020-01-23] MEDS: SODIUM CHLORIDE 0.45% 1,000 ML IV SCH ×2 (05:20→22:44)
[2020-01-23 07:18] LABS: Glucose,Whole Blood 106 mg/dL (75-99)
[2020-01-23] MEDS: INSULIN ASPART (NovoLOG) 100 UNIT/ML VIAL SQ SCH ×4 (08:24→20:34)
[2020-01-23] MEDS: ASPIRIN 81 MG PO SCH (08:32)
[2020-01-23] MEDS: SENNOSIDES 8.6 MG TAB PO SCH ×3 (08:32→20:34)
[2020-01-23] MEDS: CHOLECALCIFEROL 1,000 UNIT TAB PO SCH (08:33)
[2020-01-23] MEDS: ZINC SULFATE 220 MG CAP PO SCH (08:33)
[2020-01-23] MEDS: METOPROLOL TARTRATE 50 MG TAB PO SCH ×2 (08:33→20:34)
[2020-01-23] MEDS: ENOXAPARIN 40 MG/0.4 ML SYRINGE SQ SCH ×2 (08:33→20:32)
[2020-01-23] MEDS: ASCORBIC ACID 500 MG TAB PO SCH ×2 (08:33→20:34)
[2020-01-23] MEDS: LIDOCAINE 5% PATCH TOPICAL SCH (08:33)
[2020-01-23] MEDS ORDERED: methylPREDNISolone SOD SUCCI 40 MG/ML 1 ML VIAL IV SCH (09:00)
[2020-01-23 09:56] LABS: African American GFR (CKD) 33.1 (60.0-200.0); Anion Gap 10.8 mmol/L (4.00-12.00); BUN/Creat Ratio 72.35 Ratio (12.00-20.00); Calcium 8.1 mg/dL (8.7-10.3); Carbon Dioxide 25.2 mmol/L (21.6-31.8); Magnesium 2.6 mg/dL (1.5-2.4); Non-African American GFR(CKD) 28.6 (60.0-200.0); Potassium 4.1 mmol/L (3.5-5.5)
--- NOTE | 2020-01-23 10:38 | P.PN ---
Subjective Progress Note Date: 01/23/20 CHIEF COMPLAINT: Covid HISTORY OF PRESENT ILLNESS: This is a 74-year-old female who presented to the hospital with hypoxia, elevated troponins and was found to have positive COVID pneumonia. Patient did require ICU care and had been on Airvo and now transitioned to nasal cannula. She is currently on a regular medical floor. She has been very lethargic. She also has been receiving tube feedings via NG tube. She is being evaluated by speech therapy for swallow evaluation. She had modified barium study completed which was positive for aspiration. Patient is undergoing a calorie count to assess if PEG tube placement is needed. Afebrile. PHYSICAL EXAM: VITAL SIGNS: Reviewed. GENERAL: Well-developed in no acute distress. HEENT: No sclera icterus. Extraocular movements grossly intact. Moist buccal mucosa. Head is atraumatic, normocephalic. ABDOMEN: Soft. Nondistended. Nontender. ASSESSMENT: 1. Moderate protein calorie malnutrition and poor oral intake 2. Acute hypoxemic respiratory failure secondary to Covid 19 pneumonia 3. Haemophilus influenza bacteremia likely related to pneumonia 4. Acute kidney injury followed by nephrology 5. Acute toxic metabolic encephalopathy PLAN: -Patient undergoing 3 day calorie count -If patient fails calorie count she may require PEG tube placement for nutrition support Physician Fiscal Officer note has been reviewed by physician. Signing provider agrees with the documented findings, assessment, and plan of care. Objective - Vital Signs Vital signs: Vital Signs Temp 98.4 F 01/23/20 09:00 Pulse 59 L 01/23/20 09:00 Resp 22 01/23/20 09:00 BP 131/80 01/23/20 09:00 Pulse Ox 99 01/23/20 09:00 Intake & Output 01/22/20 01/23/20 01/23/20 18:59 06:59 18:59 Output Total 1000 Balance -1000 Weight 88.5 kg 88.6 kg Output: Urine 1000 Uretheral (Pablo) 1000 Other: Voiding Method Indwelling Catheter Indwelling Catheter Indwelling Catheter - Labs CBC & Chem 7: 01/22/20 05:50 01/23/20 05:51 Labs: Abnormal Lab Results - Last 24 Hours (Table) 01/22/20 01/22/20 01/22/20 Range/Units 05:50 05:50 11:24 BUN 116.0 H* (9.0-27.0) mg/dL Creatinine (0.6-1.5) mg/dL Est GFR (CKD-EPI)AfAm (60.0-200.0) Est GFR (CKD-EPI)NonAf (60.0-200.0) BUN/Creatinine Ratio (12.00-20.00) Ratio POC Glucose (mg/dL) 106 H (75-99) mg/dL Calcium (8.7-10.3) mg/dL Magnesium (1.5-2.4) mg/dL TIBC 219 L (228-460) ug/dL % Saturation 50.68 H (12.00-45.00) Ferritin 2927.1 H (10.0-291.0) ng/mL 01/22/20 01/22/20 01/23/20 Range/Units 20:16 23:30 05:51 BUN 123.0 H* (9.0-27.0) mg/dL Creatinine 1.7 H (0.6-1.5) mg/dL Est GFR (CKD-EPI)AfAm 33.1 L (60.0-200.0) Est GFR (CKD-EPI)NonAf 28.6 L (60.0-200.0) BUN/Creatinine Ratio 72.35 H (12.00-20.00) Ratio POC Glucose (mg/dL) 101 H 121 H (75-99) mg/dL Calcium 8.1 L (8.7-10.3) mg/dL Magnesium 2.6 H (1.5-2.4) mg/dL TIBC (228-460) ug/dL % Saturation (12.00-45.00) Ferritin (10.0-291.0) ng/mL 01/23/20 Range/Units 07:06 BUN (9.0-27.0) mg/dL Creatinine (0.6-1.5) mg/dL Est GFR (CKD-EPI)AfAm (60.0-200.0) Est GFR (CKD-EPI)NonAf (60.0-200.0) BUN/Creatinine Ratio (12.00-20.00) Ratio POC Glucose (mg/dL) 106 H (75-99) mg/dL Calcium (8.7-10.3) mg/dL Magnesium (1.5-2.4) mg/dL TIBC (228-460) ug/dL % Saturation (12.00-45.00) Ferritin (10.0-291.0) ng/mL
[2020-01-23 11:10] LABS: Glucose,Whole Blood 191 mg/dL (75-99)
[2020-01-23] MEDS ORDERED: FUROSEMIDE 10 MG/ML 4 ML VIAL IV STA (11:35)
--- NOTE | 2020-01-23 11:56 | P.PN ---
Subjective Patient is seen in follow-up for acute kidney injury on chronic kidney disease. Oral intake a little better. She did receive a dose of IV Lasix yesterday. Creatinine 1.7 today. Currently sleeping. Not a reliable historian. Blood pressure stable. Vital signs are stable. General: The patient appeared well nourished and normally developed. HEENT: Head exam is unremarkable. Neck is without jugular venous distension. LUNGS: Breath sounds decreased. HEART: Rate and Rhythm are regular. ABDOMEN: Soft, obese. EXTREMITITES: 1+ edema. Objective - Vital Signs Vital signs: Vital Signs Temp 98.4 F 01/23/20 09:00 Pulse 59 L 01/23/20 09:00 Resp 22 01/23/20 09:00 BP 131/80 01/23/20 09:00 Pulse Ox 99 01/23/20 09:00 Intake & Output 01/22/20 01/23/20 01/23/20 18:59 06:59 18:59 Output Total 1000 Balance -1000 Weight 88.5 kg 88.6 kg Output: Urine 1000 Uretheral (Pablo) 1000 Other: Voiding Method Indwelling Catheter Indwelling Catheter Indwelling Catheter - Labs CBC & Chem 7: 01/22/20 05:50 01/23/20 05:51 Labs: Abnormal Lab Results - Last 24 Hours (Table) 01/22/20 01/22/20 01/22/20 Range/Units 05:50 20:16 23:30 BUN (9.0-27.0) mg/dL Creatinine (0.6-1.5) mg/dL Est GFR (CKD-EPI)AfAm (60.0-200.0) Est GFR (CKD-EPI)NonAf (60.0-200.0) BUN/Creatinine Ratio (12.00-20.00) Ratio POC Glucose (mg/dL) 101 H 121 H (75-99) mg/dL Calcium (8.7-10.3) mg/dL Magnesium (1.5-2.4) mg/dL TIBC 219 L (228-460) ug/dL % Saturation 50.68 H (12.00-45.00) Ferritin 2927.1 H (10.0-291.0) ng/mL 01/23/20 01/23/20 01/23/20 Range/Units 05:51 07:06 11:08 BUN 123.0 H* (9.0-27.0) mg/dL Creatinine 1.7 H (0.6-1.5) mg/dL Est GFR (CKD-EPI)AfAm 33.1 L (60.0-200.0) Est GFR (CKD-EPI)NonAf 28.6 L (60.0-200.0) BUN/Creatinine Ratio 72.35 H (12.00-20.00) Ratio POC Glucose (mg/dL) 106 H 191 H (75-99) mg/dL Calcium 8.1 L (8.7-10.3) mg/dL Magnesium 2.6 H (1.5-2.4) mg/dL TIBC (228-460) ug/dL % Saturation (12.00-45.00) Ferritin (10.0-291.0) ng/mL Assessment and Plan Plan: Assessment: 1. Acute kidney injury mostly prerenal secondary to infection. Creatinine was 2.18 on admission and then stable in the range of 1.3-1.5. Disproportionally elevated BUN partially due to steroids. No evidence of GI bleed. Renal function little worse today due to diuresis. Renal ultrasound revealed 7.8 cm right kidney without any hydronephrosis. Left kidney could not be visualized. 2. Acute hypoxia respiratory failure. 3. Covid19 pneumonia. Maintained on steroids and zinc. Status post remdesivir. 4. Rule out chronic kidney disease. Patient does follow with a mechanical intern outpatient. Unknown baseline renal function. 5. Haemophilus influenza bacteremia status post antibiotics. 6. Anemia of chronic kidney disease. Iron replete. Maintained on Aranesp. 7. Volume overload. 8. Acute on chronic diastolic CHF. Plan: Encouraged oral intake. Repeat Lasix 40 mg IV once today. Avoid nephrotoxins. Continue to monitor renal function and urine output.
--- NOTE | 2020-01-23 15:23 | P.PN ---
Subjective Progress Note Date: 01/23/20 Principal diagnosis: COVID 19 pneumonia A 74-year-old female patient, very poor historian with what seems to be advanced dementia in addition to history of hypertension and hyperlipidemia was coming in for shortness of breath and hypoxemia and this has been confirmed to be related to COVID 19 infection/pneumonia. The patient was transferred from an outside hospital. The patient is unable to give any further history. Review of her chest x-ray shows that the patient is a peripheral patchy pulmonary interstitial airspace disease infiltrates bilaterally and the patient is currently on 8 L of oxygen by nasal cannula to maintain a saturation above 90%. Her current pulse ox is around 93%. The white cell count is at 10.6. The patient also has a renal failure and the chronicity of the renal failure is not established. Her previous creatinine is unknown to me at this point in time. She also has a mild component of anion gap metabolic acidosis with a anion gap of 14 and a serum bicarb level of 17. LDH is 1213 and the patient is a CRP of 301. Also, the patient had a troponin leak with troponin levels being at 0.1 0.1 and 0.2 respectively. Pro calcitonin level was elevated at 1.54. She is afebrile. The blood cultures from the outside hospital showing gram-positive cocci and is not sure if it was in clusters overnight. The patient was started on vancomycin as an empiric antibiotic coverage. In terms of Covid 19 infection, the patient was started on a combination of Decadron and Remdesivir The patient is seen today 01/07/2020 in follow-up on selective care unit. She does have advanced dementia and is a poor historian. She is currently resting fairly comfortably in bed. She is on 8 L high flow nasal cannula to maintain O2 saturations in the 90s. She's afebrile. Hemodynamically stable. White count 27.1. Hemoglobin 12.2. Lymphocytes 0.81. Sodium 139. Potassium 4.2. Bicarb 14. Creatinine 2.06. AST 102. ALT 47. Troponin 0.266. C-reactive protein 192. Pro calcitonin 1.45. She remains on Decadron, vitamin C, vitamin D, zinc. She is receiving day #2 of Remdesivir. On 01/08/2020, the patient has been transferred to the intensive care unit. The patient developed progressive dyspnea tachypnea and hypoxemia overnight and the patient had to be transferred to the intensive care unit. At this point in time, the patient is confused, lethargic, at times agitated, unable to follow any commands and unable to hold a conversation. She gets quite restless when stimulated. She is sensing critical condition on 4 extremities. No neck stiffness. She is moving all 4 extremities and the patient has no focal neurological deficits. No neck stiffness. The patient was noted to have a possible culture an outside hospital and the patient was given vancomycin in addition to Zithromax and Rocephin per IDs recommendation. Nevertheless, based on our cultures, the results are still negative for now and there is no clear evidence of any bacterial infection at this point in time. Noted the Pro calcitonin level was elevated. At the same time, the patient has acute Covid 19 related to pneumonia bilateral. The patient is on high flow oxygen at 15 L with an FiO2 of 73% to maintain a saturation above 90%. A triple lumen catheter was established in the left subclavian. The chest x-ray post line insertion showed no evidence of any pneumothorax. Nevertheless, there was dense bilateral pulmonary infiltrates consistent with coronavirus Covid 19 related pneumonia. The patient is obviously tachypneic. She is having respiratory distress even on high flow oxygen. No use of accessory muscles of breathing. The blood work from today shows a troponin of 0.23. Vancomycin level is at 19.9. The patient a component of non-anion gap metabolic acidosis from yesterday. The patient is a bicarb drip which is running at 100 mL an hour. Serum bicarb is up to 18. Creatinine is down to 1.9, somewhat improved compared to yesterday. At the same time, the patient is being treated with a combination of Decadron, vitamin C, vitamin D, zinc. She is receiving day #3 of Remdesivir. On 01/09/2020, the patient seems to be less agitated as the patient was started on Precedex which is currently running at 0.25 mg per KG per minute. The patient seems to much more comfortable at this point in time. She remains on high flow oxygen 55 L with an FiO2 of 85% with a pulse ox of 96%. The patient's chest x-ray still showing diffuse breath and pulmonary infiltrates. Note that the patient was infected with Covid 19 and she had a Covid 19 related pneumonia in addition to septic shock secondary to Haemophilus influenza bacteremia. No elbert the patient's blood culture came back positive for Haemophilus influenza. The patient is currently on IV Rocephin 2 g every 24 hours in regards to this septicemia. The patient is also being treated for coronavirus Covid 19 pneumonia with a combination of Decadron and Remdesivir and the patient also received a unit of, convalescent plasma. The patient has a ferritin level of 3188. The patient has a LDH of 1147 and the CRP is down to 122. The patient is afebrile. Renal function and for the creatinine is down to 1.7. Serum bicarbs of 28 and the patient was being given D5 with 3 A of bicarb at the rate of 100 mL an hour. She is afebrile. She is still moans and at times becomes restless and tremulous. Nevertheless, there is no seizure activity noted and the patient is not able to follow single commands. Which are diffuse. There is peripheral infiltrate in the right and the left. There is somewhat improvement in pulmonary infiltration. Is a left sided subclavian triple-lumen catheter in place. The Pro calcitonin level is down to 1.45. 01/10/2020, the patient remains on Precedex and seems to be quite comfortable at a dose of 0.35 mcg per KG per hour. The patient is also on high flow oxygen at 55 L with an FiO2 of 80%. She is able to maintain a saturation above 90%. The chest x-ray is showing persistent airspace disease throughout the left lung which remains unchanged compared to yesterday. There is also scattered infiltration within the periphery of the right lung which probably have improved on today's evaluation. Note that the patient also had a positive blood culture with Haemophilus influenza. Accordingly, the patient was treated with IV Rocephin 2 g every 24 hours. The Pro calcitonin level is on the decline is currently down to 0.42. Hemodynamically stable and the patient is not requiring any pressors and she is receiving normal saline today to 75 mL an hour. The patient blood work showed a sodium of 147, BUN of 65 with a creatinine of 1.5, and the patient has an LDH of 1789, CRP of 73, and a d-dimer today's at 3.79. 01/11/2020, I'm seeing the patient for a follow-up. Her condition essentially unchanged compared to yesterday. The patient is still requiring Precedex to control her agitation and restlessness pH she remains on Precedex at a dose of 0.4 g per KG per minute. This is able to control her condition quite well. Meanwhile, the patient continues to remain hypoxic respiratory failure. She has required high flow oxygen at 55 L and FiO2 of 60%. The patient is on half- normal saline at the rate of 75 mL an hour. Urine output in the order of 70 mL an hour. Input output balance is positive for 21 mL over the past 24 hours. The patient's renal function with a creatinine of 1.47 which is improved compared to yesterday. Sodium level remains unchanged at 147. Chest x-ray findings are essentially stable with diffuse breath and pulmonary infiltrates consistent with Covid 19 related pneumonia. The patient remains on IV Decadron. The patient remains on IV Rocephin regarding her Haemophilus influenza septicemia. Hemodynamically stable. Maintaining her on blood pressure. She remains on Lovenox 40 mg subcu every 12 hours. Reevaluated today on 01/12/20, remains in the ICU, remains on airvo at 60 L/m flow, and 58% FiO2. O2 sats is 96%. Patient was admitted on 01/04, transferred to the ICU on 01/06. Receiving small dose of Precedex because of extreme agitation on presentation, patient is on Lovenox Q at 40 mg subcu twice a day, patient is also being treated with Rocephin for presumptive Haemophilus influenza pneumonia. Patient has not been eating, hence I will recommend a nasogastric tube placement and enteral feeding. She will be seen by neurology on consultation as the patient seems to be quite confused. And extremely stiff and rigid. Her CT of the brain showed mild generalized atrophy and air fluid levels in the right sphenoid sinus. Likely secondary to acute sinusitis. Chest x-ray shows bilateral peripheral extensive infiltrates consistent with Covid 19 pneumonitis. On 01/13/2020 patient seen in follow-up in the intensive care unit, she is resting quietly in bed, appears to be in no acute distress, remains on high flow oxygen per Airvo at 45 L/m, with FiO2 of 45%. Her pulse ox currently is 96-98%. Breathing appears to be comfortable, no respiratory distress, she did have a fever spike this morning with a temp of 101.1F, dynamically stable, she receiving 0.45 at 75 ML per hour, NG tube was inserted yesterday for nutritional support and she has Glucerna tube feedings infusing at 20 ML per hour, with a goal of 40. Did water flushes, patient remains confused, however she is not agitated. Denies any significant distress, today's chest x-ray has been reviewed showing patchy and confluent peripheral infiltrates. And worsening airspace disease at the left base. Patient completed her Remdesivir course on 01/10/2020. She received 1 unit of convalescent plasma, is receiving IV Decadron, 6 mg daily, she is on Lovenox at 40 mg twice daily, and her last d- dimer on 01/12/2020 was downtrending and down to 2.89. Her labs have been reviewed today, her white blood cell count is 26.2, hemoglobin is 11.1, sodium is 143, potassium is 4.1, chloride is 112, CO2 is 25, BUN is 67, creatinine is 1.35, renal profile is actually improving, ferritin is 3122, LDH has trended some, and is up to 1778, however her CRP is trending down, and is down to 32.4. Her last Pro calcitonin was downtrending, and was at 0.282 days ago. She is on any medical coverage in the form of Rocephin, ID service is following On 01/19/2020 patient seen in follow-up in the intensive care unit, she remains on high flow oxygen per Airvo at 35 L/m, and FiO2 of 50% with a pulse ox of 94%, she is afebrile, hemodynamically she stable, she is on 0.45 normal seen at a rate of 75 ML per hour, she receiving nutritional support via NG tube with the Glucerna 1.2 at a rate of 40 mL an hour, tolerating tube feedings well. She remains confused, and lethargic most of the time, neurology is following, and patient is no sweats toxic metabolic encephalopathy. Today's chest x-ray has been reviewed showing stable left greater than the right peripheral interstitial infiltrates and small left pleural effusion. She is status post Remdesivir, 1 unit of fresh frozen convalescent plasma, remains on high-dose IV steroids at 60 mg every 6 hours. Pneumatics no form of Rocephin and he relaxes, ID service is following. Blood culture from 01/07/2020 was found to be positive for Haemophilus influenza, follow blood culture has been negative, urine culture came back negative. His labs have been reviewed, showing white blood cell count of 24.1, hemoglobin of 10, sodium 135, demonstrate electrolytes were within normal limits, BUN of 83 and creatinine of 1.31. Profile is relatively stable. On 01/20/2020 patient seen in follow-up in the intensive care unit, if she remains on high flow oxygen per Airvo at 35 L/m, and FiO2 of 45%, currently O2 sat at 98%. Breathing comfortably, she is drowsy, but arousable to verbal stimuli, she's been afebrile, hemodynamically she stable, she is on 0.45 normal saline at a rate of 20 ML per hour, no other drips, NG tube is in place for tube feedings and she is receiving Glucerna at a rate of 40 ML per hour with a goal of 40. Today's chest x-ray has been reviewed showing bilateral areas of infiltrates that are stable with small bilateral pleural effusions. Remains on empiric antibiotics in the form of ceftriaxone and Eraxis, ID service is following, follow blood cultures have been negative, sputum culture has been negative. She has had no acute events overnight. His labs have been reviewed, white blood cell count is trending down and come down to 19.9, hemoglobin is 9.8, sodium is 135, the rest of the electrolytes are within normal limits, B1 is 100, and creatinine is 1.36. On 01/21/2020 patient seen in follow-up on general medical surgical floor, she was transferred out of intensive care unit yesterday, FiO2 is being weaned down, she is currently on 4 L per high flow oxygen, her pulse ox is 98%, oxygenation has significantly improved, she's been afebrile, hemodynamically stable, she still remains somewhat encephalopathic, sleepy, NG tube remains in place with tube feedings infusing, she is awaiting speech evaluation, her mental status permitting. She's had no acute events overnight, she remains on Rocephin, Eraxis, her follow-up blood cultures and sputum cultures have shown no growth. 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 With the upright position and direct supervision. Otherwise she appears to be in no acute distress, breathing comfortably, no cough, she's had no fever or chills. Today's labs have been reviewed, showing white blood cell count of 16.3, hemoglobin of 8.7, sodium is 145, potassium is 4.5, chloride is 112, BUN is 116, creatinine is 1.5. On 01/23/2020 patient seen in follow-up on medical surgical floor, doing well, nursing staff reports patient participating with physical therapy, patient is down to 4 L and the pulse ox of 100%, hemodynamically she is stable, breathing is nonlabored, she appears to be very drowsy, but nursing reports patient actually being responsive at times, remains on IV steroids, yesterday woke up at the dose to 40 mg daily, patient continues on dysphagia diet. Today patient re ceived a dose of Lasix, his labs show a worsening of her renal function, with BUN of 123, and creatinine of 1.7. Electrolytes were within normal limits. Objective - Vital Signs Vital signs: Vital Signs Temp 97.5 F L 01/23/20 13:00 Pulse 63 01/23/20 13:00 Resp 22 01/23/20 13:00 BP 142/83 01/23/20 13:00 Pulse Ox 100 01/23/20 13:00 Intake & Output 01/22/20 01/23/20 01/23/20 18:59 06:59 18:59 Output Total 1000 Balance -1000 Weight 88.5 kg 88.6 kg 88.6 kg Output: Urine 1000 Uretheral (Pablo) 1000 Other: Voiding Method Indwelling Catheter Indwelling Catheter Indwelling Catheter - Exam GENERAL EXAM: Alert, confused, but not agitated, 75-year-old white female, on 4 l/min with a pulse ox of 100% comfortable in no apparent distress. HEAD: Normocephalic/atraumatic. EYES: Normal reaction of pupils, equal size. Conjunctiva pink, sclera white. NOSE: Clear with pink turbinates. NG-tube has been removed THROAT: No erythema or exudates. NECK: No masses, no JVD, no thyroid enlargement, no adenopathy. CHEST: No chest wall deformity. Symmetrical expansion. LUNGS: Equal air entry with no crackles, wheeze, rhonchi or dullness. CVS: Regular rate and rhythm, normal S1 and S2, no gallops, no murmurs, no rubs ABDOMEN: Soft, nontender. No hepatosplenomegaly, normal bowel sounds, no guarding or rigidity. EXTREMITIES: No clubbing, no edema, no cyanosis, 2+ pulses and upper and lower extremities. MUSCULOSKELETAL: Muscle strength and tone normal. SPINE: No scoliosis or deformity SKIN: No rashes CENTRAL NERVOUS SYSTEM: Confused, but not agitated No focal deficits, tone is normal in all 4 extremities. - Labs CBC & Chem 7: 01/22/20 05:50 01/23/20 05:51 Labs: Abnormal Lab Results - Last 24 Hours (Table) 01/22/20 01/22/20 01/22/20 Range/Units 05:50 20:16 23:30 BUN (9.0-27.0) mg/dL Creatinine (0.6-1.5) mg/dL Est GFR (CKD-EPI)AfAm (60.0-200.0) Est GFR (CKD-EPI)NonAf (60.0-200.0) BUN/Creatinine Ratio (12.00-20.00) Ratio POC Glucose (mg/dL) 101 H 121 H (75-99) mg/dL Calcium (8.7-10.3) mg/dL Magnesium (1.5-2.4) mg/dL TIBC 219 L (228-460) ug/dL % Saturation 50.68 H (12.00-45.00) Ferritin 2927.1 H (10.0-291.0) ng/mL 01/23/20 01/23/20 01/23/20 Range/Units 05:51 07:06 11:08 BUN 123.0 H* (9.0-27.0) mg/dL Creatinine 1.7 H (0.6-1.5) mg/dL Est GFR (CKD-EPI)AfAm 33.1 L (60.0-200.0) Est GFR (CKD-EPI)NonAf 28.6 L (60.0-200.0) BUN/Creatinine Ratio 72.35 H (12.00-20.00) Ratio POC Glucose (mg/dL) 106 H 191 H (75-99) mg/dL Calcium 8.1 L (8.7-10.3) mg/dL Magnesium 2.6 H (1.5-2.4) mg/dL TIBC (228-460) ug/dL % Saturation (12.00-45.00) Ferritin (10.0-291.0) ng/mL Assessment and Plan Plan: Assessment: #1. Acute hypoxemic respiratory failure related to acute COVID 19 pneumonia, has completed a course of Remdesivir, and received 1 unit of convalescent plasma in addition to IV steroids, since oxygenation has significantly improved since admission, currently down to 4 L of oxygen with pulse ox of 98% #2. Haemophilus influenza bacteremia likely related to pneumonia, community- acquired, patient is on Rocephin for antibiotic coverage. Follow up blood culture and sputum culture have shown no growth #3. Acute kidney injury, improved since admission #4. Acute toxic metabolic encephalopathy secondary to the above #5. Hypertension #6. Dyslipidemia #7. Altered mental status/encephalopathy related to toxic metabolic ence phalopathy #8. Elevated troponin secondary to infection and acute kidney injury #9. Generalized edema and third spacing, small bilateral pleural effusions, related to fluid volume overload Plan: Continue current medical treatment, we'll stop the IV steroids altogether, we'll stop the Seroquel, patient is too sedated most of the time, excision patient has significantly improved since admission, currently down to 4 L, continue to wean, maintain aspiration precautions, continue physical therapy. I performed a history & physical examination of the patient and discussed their management with my nurse practitioner, Anna Brown. I reviewed the nurse practitioner's note and agree with the documented findings and plan of care. Lung sounds are positive for diminished breath sounds The findings and the impression was discussed with the patient. I attest to the documentation by the nurse practitioner. Time with Patient: Less than 30
--- NOTE | 2020-01-23 15:58 | P.PN ---
Subjective Progress Note Date: 01/23/20 This is a 75-year-old female who was admitted for hypoxia, elevated troponins and was found to have Covid 19 and is being closely monitored. Patient was recently in the intensive care unit and transferred as respiratory status continued to improve. She was on airvo 2 days ago and has been transitioned to 8 L high flow. Patient is currently on 4 L via nasal cannula and oxygen saturations are being maintained in the 90s. Patient continues to be confused and quite lethargic although is more awake today. Patient is following some simple commands and able to state her name although has a very weak voice and is soft spoken. Patient recently underwent swallow eval although is a high risk for aspiration due to her increased level of lethargy. Patient does have a diet order pured with honey thickened liquids and is currently undergoing a calorie count with the possibility of PEG tube placement. Surgery is following. Nephrology consulted as patient does have chronic kidney disease although b aseline creatinine is unknown and patient follows with a social work lecturer in the outpatient setting per daughter. BUN continues to be elevated and is currently 116 today, creatinine is improved at 1.5. An A team was called last night for elevated blood pressure and increased fatigue with attempts to replace the NG tube while nurses met resistance and patient became more alert and resisting NG tube placement. Patient continues to be quite edematous in bilateral upper and lower extremities and generalized and will receive a dose of Lasix today. Multiple medical consultations following as prognosis remains guarded. No reports of chest pain or shortness of breath. Patient is afebrile. Patient continues to have poor oral intake with strict aspiration precautions and one-to-one supervision. No vomiting noted per staff. 01/23/2020 Patient is seen and evaluated in follow-up much more awake although fatigues easily. Patient is eating more per nursing staff and tolerating honey thickened diet at this time. Patient is maintaining oxygen saturations on 4 L via nasal cannula in the high 90s. Patient is a mouth breather as well oral mucosa is dry. Patient is taking medications per nursing staff. BUN continues to be elevated and nephrology is following. Creatinine is 1.7. Magnesium elevated at 2.6, potassium is 4.1. Surgery following with the possibility of PEG tube placement and patient currently undergoing calorie counting. Multiple medical consultations following. PT/OT therapy attempted to work with the patient and patient continues to be a max assist and barely moving out of the bed. Case management and social work also following as patient will require an ECF for rehab stabilized and discharged. Review of systems: Unable to obtain given patient's confusional state and increased fatigue Active Medications Acetaminophen (Acetaminophen Tab 325 Mg Tab) 650 mg PO Q6HR PRN PRN Reason: Mild Pain or Fever > 100.5 Last Admin: 01/07/20 22:43 Dose: 650 mg Documented by: Albuterol Sulfate (Albuterol Hfa Inhaler) 2 puff INHALATION RT-Q6H PRN PRN Reason: Shortness Of Breath Or Wheezing Last Admin: 01/22/20 11:45 Dose: 2 puff Documented by: Ascorbic Acid (Ascorbic Acid 500 Mg Tab) 500 mg PO BID [facility] Last Admin: 01/23/20 08:33 Dose: 500 mg Documented by: Aspirin (Aspirin 81 Mg) 81 mg PO DAILY [facility] Last Admin: 01/23/20 08:32 Dose: 81 mg Documented by: Cholecalciferol (Cholecalciferol 1,000 Unit Tab) 5,000 unit PO DAILY [facility] Last Admin: 01/23/20 08:33 Dose: 5,000 unit Documented by: Clonidine HCl (Clonidine 0.3 Mg/24hr Patch) 1 patch TRANSDERM Q7D [facility] Last Admin: 01/17/20 12:06 Dose: 1 patch Documented by: Darbepoetin Dean (Darbepoetin Dean 40 Mcg/0.4 Ml Syringe) 40 mcg SQ Q7D [facility] Last Admin: 01/22/20 13:58 Dose: 40 mcg Documented by: Enoxaparin Sodium (Enoxaparin 40 Mg/0.4 Ml Syringe) 40 mg SQ Q12HR [facility] Last Admin: 01/23/20 08:33 Dose: 40 mg Documented by: Haloperidol Lactate (Haloperidol Lactate 5 Mg/Ml 1 Ml Vial) 1 mg IVP Q6HR PRN PRN Reason: Agitation or Acute Psychosis Hydralazine HCl (Hydralazine Hcl 20 Mg/Ml 1 Ml Vial) 10 mg IVP Q6HR PRN PRN Reason: Blood Pressure - High Last Admin: 01/23/20 02:34 Dose: 10 mg Documented by: Sodium Chloride (Saline 0.45%) 1,000 mls @ 20 mls/hr IV .Q24H [facility] Last Admin: 01/23/20 05:20 Dose: Not Given Documented by: Anidulafungin 100 mg/ Sodium (Chloride) 100 mls @ 84 mls/hr IVPB [facility] Last Admin: 01/23/20 00:33 Dose: 84 mls/hr Documented by: Insulin Aspart (Insulin Aspart (Novolog) 100 Unit/Ml Vial) 0 unit SQ ACHS [facility]; Protocol Last Admin: 01/23/20 12:43 Dose: 5 unit Documented by: Insulin Detemir (Insulin Detemir (Levemir) 100 Unit/Ml Syr) 10 unit SQ [facility] Last Admin: 01/22/20 23:33 Dose: 10 unit Documented by: Lidocaine (Lidocaine 5% Patch) 1 patch TOPICAL DAILY [facility] Last Admin: 01/23/20 08:33 Dose: 1 patch Documented by: Metoprolol Tartrate (Metoprolol Tartrate 50 Mg Tab) 50 mg PO BID [facility] Last Admin: 01/23/20 08:33 Dose: 50 mg Documented by: Miscellaneous Information (Potassium Replacement Protocol 1 Each Misc) 1 each MISCELLANE DAILY PRN; Protocol PRN Reason: Per Protocol Naloxone HCl (Naloxone 0.4 Mg/Ml 1 Ml Vial) 0.2 mg IV Q2M PRN PRN Reason: Opioid Reversal Senna (Sennosides 8.6 Mg Tab) 8.6 mg PO BID [facility] Last Admin: 01/23/20 08:42 Dose: Not Given Documented by: Zinc Sulfate (Zinc Sulfate 220 Mg Cap) 220 mg PO DAILY [facility] Last Admin: 01/23/20 08:33 Dose: 220 mg Documented by: Objective - Vital Signs Vital signs: Vital Signs Temp 97.5 F L 01/23/20 05:52 Pulse 58 L 01/23/20 05:52 Resp 18 01/23/20 05:52 BP 127/82 01/23/20 04:44 Pulse Ox 99 01/23/20 05:52 Intake & Output 01/22/20 01/23/20 01/23/20 18:59 06:59 18:59 Output Total 1000 Balance -1000 Weight 88.5 kg 88.6 kg Output: Urine 1000 Uretheral (Pablo) 1000 Other: Voiding Method Indwelling Catheter Indwelling Catheter Indwelling Catheter - Exam GENERAL: lethargic although arousable. More awake today. Well developed, well nourished. Temp is 98.4F, pulse is 59, respirations are 22, blood pressure is 131/80, oxygen saturation is 100 % on 4 L via nasal cannula HEENT: Pupils are round and equally reacting to light. EOMI. No scleral icterus. No conjunctival pallor. Normocephalic, atraumatic. No pharyngeal erythema. No thyromegaly. Oral mucosa is dry CARDIOVASCULAR: S1 and S2 muffled. No murmurs, rubs, or gallops. PULMONARY: diminished breath sounds bilaterally with some scattered rhonchi noted ABDOMEN: Soft, nontender, nondistended, normoactive bowel sounds. No palpable organomegaly. MUSCULOSKELETAL: No joint swelling or deformity. EXTREMITIES: No cyanosis, clubbing, or pedal edema. Bilateral upper and lower extremity pitting edema noted, 3+ NEUROLOGICAL: Lethargic although more easily arousable to name today. Patient shrugs her shoulders and nontender head when asked questions. Patient attempts to speak and is mouthing words although nothing is coming out. Gross neurological examination did not reveal any focal deficits. Diffusely weak - Labs CBC & Chem 7: 01/22/20 05:50 01/23/20 05:51 Labs: Abnormal Lab Results - Last 24 Hours (Table) 01/22/20 01/22/20 01/22/20 Range/Units 05:50 05:50 11:24 Chloride 112 H (96-109) mmol/L BUN 116.0 H* (9.0-27.0) mg/dL Est GFR (CKD-EPI)AfAm 38.5 L (60.0-200.0) Est GFR (CKD-EPI)NonAf 33.3 L (60.0-200.0) BUN/Creatinine Ratio 77.33 H (12.00-20.00) Ratio POC Glucose (mg/dL) 106 H (75-99) mg/dL Calcium 8.1 L (8.7-10.3) mg/dL TIBC 219 L (228-460) ug/dL % Saturation 50.68 H (12.00-45.00) Ferritin 2927.1 H (10.0-291.0) ng/mL ALT 48 H (8-44) U/L Total Protein 4.2 L (6.2-8.2) g/dL Albumin 2.80 L (3.80-4.90) g/dL Globulin 1.4 L (1.6-3.3) g/dL 01/22/20 01/22/20 01/23/20 Range/Units 20:16 23:30 07:06 Chloride (96-109) mmol/L BUN (9.0-27.0) mg/dL Est GFR (CKD-EPI)AfAm (60.0-200.0) Est GFR (CKD-EPI)NonAf (60.0-200.0) BUN/Creatinine Ratio (12.00-20.00) Ratio POC Glucose (mg/dL) 101 H 121 H 106 H (75-99) mg/dL Calcium (8.7-10.3) mg/dL TIBC (228-460) ug/dL % Saturation (12.00-45.00) Ferritin (10.0-291.0) ng/mL ALT (8-44) U/L Total Protein (6.2-8.2) g/dL Albumin (3.80-4.90) g/dL Globulin (1.6-3.3) g/dL Assessment and Plan Assessment: -Acute hypoxic respiratory failure: secondary to covid 19 pneumonia. -secondary bacterial pneumonia, with Haemophilus influenza -bacteremia -Toxic encephalopathy, altered mental status: Secondary to infection -Elevated troponin secondary to infection and renal failure -Acute kidney injury secondary to infection patient does have chronic kidney disease unable to stage chronic kidney disease as baseline is not known. -Hypertension -Hyperlipidemia -Possible myoclonus: Secondary to encephalopathy -DVT prophylaxis with heparin Recommendations and discussion: Recommend to continue with current medications, management, and symptomatic treatment. Surgery following for the possibility of a PEG tube as patient continues to be lethargic and continued poor oral intake. Patient currently undergoing three-day calorie count. Oral intake slightly improved per nursing staff today. Will continue to monitor and encourage increased oral intake as tolerated. Continue with IV antibiotics along with IV steroids and breathing inhalational treatments. Multiple medical consultations following including pulmonary, neurology, and infectious disease. Nephrology following. Current BUN is 122 creatinine 1.7. PT/OT following an patient is a max assist. Patient will require ECF for continued rehab once discharged. Maintain strict aspiration precautions and continue with the head of the bed elevated 30-45 degrees with one-to-one supervision. Continue to wean FI02 as tolerated. Yadi ent is currently on 4 L via nasal cannula. Will repeat am labs and monitor vitals closely. Prognosis remains guarded. Further recommendations to follow.
[2020-01-23 17:09] LABS: Glucose,Whole Blood 129 mg/dL (75-99)
[2020-01-23] MEDS: ALBUTEROL HFA INHALER INHALATION PRN (19:57)
[2020-01-23 20:24] LABS: Glucose,Whole Blood 138 mg/dL (75-99)
[2020-01-23] MEDS: INSULIN DETEMIR (LEVEMIR) 100 UNIT/ML SYR SQ SCH (20:33)
--- NOTE | 2020-01-23 23:21 | PN ---
PROGRESS NOTE DATE OF SERVICE: 01/23/2020 REASON FOR FOLLOWUP: Oropharyngeal candidiasis and bacteremia. INTERVAL HISTORY: The patient is currently afebrile. The patient is breathing comfortably, currently on 3 L nasal cannula. NG has been discontinued. No nausea, vomiting or diarrhea has been reported by the nursing staff. Patient herself was unable to provide reliable history. PHYSICAL EXAMINATION: Blood pressure 147/83, pulse of 65, temperature 97.6. She is 98% on 3 L nasal cannula. General description is an elderly female lying in bed in no distress. RESPIRATORY SYSTEM: Unlabored breathing with decreased breath sounds at the base. No wheeze. HEART: S1, S2. Regular rate and rhythm. ABDOMEN: Soft. No tenderness. LABS: BUN of 123, creatinine 1.7. DIAGNOSTIC IMPRESSION AND PLAN: 1. Patient with Haemophilus influenzae bacteremia that has been adequately treated; completed her antibiotic therapy. 2. Patient with oropharyngeal candidiasis, covered with Eraxis; to continue and monitor her clinical course closely. MMODL / IJN: [id number] /
[2020-01-24 07:03] LABS: Glucose,Whole Blood 129 mg/dL (75-99)
[2020-01-24] MEDS: INSULIN ASPART (NovoLOG) 100 UNIT/ML VIAL SQ SCH ×4 (09:41→21:32)
[2020-01-24] MEDS: METOPROLOL TARTRATE 50 MG TAB PO SCH ×2 (09:53→21:33)
[2020-01-24] MEDS: ASCORBIC ACID 500 MG TAB PO SCH ×2 (09:53→21:32)
[2020-01-24] MEDS: ZINC SULFATE 220 MG CAP PO SCH (09:53)
[2020-01-24] MEDS: CHOLECALCIFEROL 1,000 UNIT TAB PO SCH (09:53)
[2020-01-24] MEDS: ASPIRIN 81 MG PO SCH (09:53)
[2020-01-24] MEDS: ENOXAPARIN 40 MG/0.4 ML SYRINGE SQ SCH ×2 (09:53→21:32)
[2020-01-24] MEDS: SENNOSIDES 8.6 MG TAB PO SCH ×2 (09:53→21:33)
[2020-01-24] MEDS: cloNIDine 0.3 MG/24HR PATCH TRANSDERM SCH (09:54)
[2020-01-24] MEDS: LIDOCAINE 5% PATCH TOPICAL SCH (09:54)
[2020-01-24 10:11] LABS: Anion Gap 11.8 mmol/L (4.00-12.00); BUN/Creat Ratio 69.47 Ratio (12.00-20.00); Calcium 7.9 mg/dL (8.7-10.3); Carbon Dioxide 25.2 mmol/L (21.6-31.8); Potassium 4.1 mmol/L (3.5-5.5)
[2020-01-24 10:12] LABS: Magnesium 2.4 mg/dL (1.5-2.4)
--- NOTE | 2020-01-24 11:11 | P.PN ---
Progress Note - Text Progress Note Date: 01/24/20 Patient is continuing her calorie count. Per the nursing staff she's not had much oral intake. She has had some trouble swallowing. On exam vitals are stable. Protein catamount. Patient will have PEG tube placement if needed.
[2020-01-24 11:12] LABS: Glucose,Whole Blood 133 mg/dL (75-99)
[2020-01-24 12:01] LABS: HCT 24.7 % (34.0-46.0); HGB 7.9 gm/dL (11.4-16.0); MCH 30.5 pg (25.0-35.0); MCHC 32.1 g/dL (31.0-37.0); Mean Platelet Volume 12.4; RDW 15.1 % (11.5-15.5); WBC 16.1 k/uL (3.8-10.6)
[2020-01-24 12:02] LABS: Platelet Count 89 k/uL (150-450)
--- NOTE | 2020-01-24 12:16 | P.PN ---
Subjective Patient is seen in follow-up for acute kidney injury on chronic kidney disease. Oral intake is fair. She did receive a dose of IV Lasix yesterday as well. Creatinine 1.9 today. Nonoliguric. Not a reliable historian. Blood pressure stable. Vital signs are stable. General: The patient appeared well nourished and normally developed. HEENT: Head exam is unremarkable. Neck is without jugular venous distension. LUNGS: Breath sounds decreased. HEART: Rate and Rhythm are regular. ABDOMEN: Soft, obese. EXTREMITITES: 1+ edema. Objective - Vital Signs Vital signs: Vital Signs Temp 98.6 F 01/24/20 10:00 Pulse 79 01/24/20 10:00 Resp 16 01/24/20 10:00 BP 103/79 01/24/20 10:00 Pulse Ox 100 01/24/20 10:00 Intake & Output 01/23/20 01/24/20 01/24/20 18:59 06:59 18:59 Output Total 1000 600 Balance -1000 -600 Weight 88.6 kg 88 kg Output: Urine 1000 600 Other: Voiding Method Indwelling Catheter Indwelling Catheter Indwelling Catheter # Bowel Movements 0 - Labs CBC & Chem 7: 01/24/20 05:50 01/24/20 05:50 Labs: Abnormal Lab Results - Last 24 Hours (Table) 01/23/20 01/23/20 01/24/20 Range/Units 16:44 20:22 05:50 WBC (3.8-10.6) k/uL RBC (3.80-5.40) m/uL Hgb (11.4-16.0) gm/dL Hct (34.0-46.0) % Plt Count (150-450) k/uL Sodium 148 H (135-145) mmol/L Chloride 111 H (96-109) mmol/L BUN 132.0 H* (9.0-27.0) mg/dL Creatinine 1.9 H (0.6-1.5) mg/dL Est GFR (CKD-EPI)AfAm 29.0 L (60.0-200.0) Est GFR (CKD-EPI)NonAf 25.0 L (60.0-200.0) BUN/Creatinine Ratio 69.47 H (12.00-20.00) Ratio Glucose 112 H (70-110) mg/dL POC Glucose (mg/dL) 129 H 138 H (75-99) mg/dL Calcium 7.9 L (8.7-10.3) mg/dL 01/24/20 01/24/20 01/24/20 Range/Units 05:50 07:02 11:10 WBC 16.1 H (3.8-10.6) k/uL RBC 2.60 L (3.80-5.40) m/uL Hgb 7.9 L (11.4-16.0) gm/dL Hct 24.7 L (34.0-46.0) % Plt Count 89 L (150-450) k/uL Sodium (135-145) mmol/L Chloride (96-109) mmol/L BUN (9.0-27.0) mg/dL Creatinine (0.6-1.5) mg/dL Est GFR (CKD-EPI)AfAm (60.0-200.0) Est GFR (CKD-EPI)NonAf (60.0-200.0) BUN/Creatinine Ratio (12.00-20.00) Ratio Glucose (70-110) mg/dL POC Glucose (mg/dL) 129 H 133 H (75-99) mg/dL Calcium (8.7-10.3) mg/dL Assessment and Plan Plan: Assessment: 1. Acute kidney injury mostly prerenal secondary to infection. Creatinine was 2.18 on admission and then stable in the range of 1.3-1.5. Disproportionally elevated BUN partially due to steroids. No evidence of GI bleed. Renal func tion little worse today due to diuresis. Renal ultrasound revealed 7.8 cm right kidney without any hydronephrosis. Left kidney could not be visualized. 2. Acute hypoxic respiratory failure. 3. Covid19 pneumonia. Status post steroids and remdesivir. 4. Rule out chronic kidney disease. Patient does follow with a seamstress fitter outpatient. Unknown baseline renal function. 5. Haemophilus influenza bacteremia status post antibiotics. 6. Anemia of chronic kidney disease. Iron replete. Maintained on Aranesp. 7. Volume overload. 8. Acute on chronic diastolic CHF. 9. Hypernatremia secondary to shock for oral water intake and free water diuresis. Plan: Encouraged oral intake. Hold diuretics today. Start D5W at 75 mL an hour. Repeat sodium level this evening. Check stool for occult blood. Avoid nephrotoxins. Continue to monitor renal function and urine output.
[2020-01-24] MEDS: DEXTROSE 5% IN WATER 1,000 ML IV SCH (12:49)
--- NOTE | 2020-01-24 15:35 | PN ---
PROGRESS NOTE PULMONARY/CRITICAL CARE PROGRESS NOTE: DATE OF SERVICE: 01/24/2020 HISTORY OF PRESENT ILLNESS: This is a 75-year-old female who was admitted way back on January 04. She was admitted with a diagnosis of acute hypoxemic respiratory failure secondary to COVID-19 pneumonia. She did complete 5 days Remdesivir and also received 1 unit of convalescent plasma. Currently, she is on 2 L nasal cannula. She also was discovered to have Haemophilus influenzae bacteremia, likely related to underlying pneumonia. She received Rocephin for that. Clinically she is doing reasonably well. She was able to give me a thumbs up sign today. She is a bit more awake and alert. Her O2 may be able to be completely weaned off. PHYSICAL EXAMINATION: VITAL SIGNS: Current vital signs are reviewed. Temperature 97.7, heart rate 67, respiratory rate 18, blood pressure 128/83, mean 98, 2 L saturations 100%. Appears in no acute distress. HEENT: Examination is grossly unremarkable. NECK: Supple. Full range of motion. No adenopathy. Neck veins are flat. CARDIOVASCULAR: Examination reveals regular rhythm and rate. LUNGS: Reveal mostly clear breath sounds. No wheezes, rhonchi, or crackles. Breath sounds equal. ABDOMEN: Soft. EXTREMITIES: Intact. There is diffuse edema and anasarca. SKIN: Without rash. There are multiple areas of ecchymoses. NEUROLOGIC: Examination is difficult to assess but appears to be relatively normal. LABS: Reviewed. White count 16.1, hemoglobin 7.9, hematocrit 24.7, platelet count 89,000. Sodium 148, potassium 4.1, chloride 111, CO2 25, anion gap is 12. BUN and creatinine were 132 and 1.9. The rest of the labs look okay. Microbiology showing Haemophilus influenzae in the blood from January 06. No recent chest x-ray. CURRENT MEDICATIONS: Reviewed. She is on Tylenol, albuterol inhaler, Eraxis, vitamin C, aspirin, vitamin D3, clonidine, Aranesp, Lovenox, Lasix, Haldol, Apresoline, insulin, lidocaine patch, metoprolol, Narcan, potassium replacement, Senokot, and zinc. ASSESSMENT: 1. Acute hypoxemic respiratory failure, secondary to acute COVID-19 pneumonia/pneumonitis, currently doing much better. The patient did receive 5 days of Remdesivir and 1 unit of convalescent plasma. 2. Haemophilus influenzae bacteremia, treated. 3. Acute kidney injury, improved. 4. Toxic/metabolic encephalopathy, somewhat improved. 5. Hypertension. 6. Hyperlipidemia. 7. Acute kidney injury. 8. Generalized edema and anasarca. PLAN: Currently, the patient is doing much better from the respiratory standpoint. Her saturations are 100% on 2 L. She may be able to be weaned down to room air. She is currently on appropriate medications. We will continue to follow. She did receive Remdesivir and 1 unit of convalescent plasma. No additional recommendations are made. Apparently discharge planning is underway. MICHELE / JACKSONN: [id number] /
[2020-01-24 16:36] LABS: Glucose,Whole Blood 191 mg/dL (75-99)
[2020-01-24 20:25] LABS: Glucose,Whole Blood 230 mg/dL (75-99)
[2020-01-24] MEDS: ANIDULAFUNGIN 100 MG in SODIUM CHLORIDE 0.9% 100 ML IVPB SCH (21:30)
[2020-01-24] MEDS: INSULIN DETEMIR (LEVEMIR) 100 UNIT/ML SYR SQ SCH (21:33)
--- NOTE | 2020-01-25 03:53 | PN ---
PROGRESS NOTE DATE OF SERVICE: 01/24/2020 REASON FOR FOLLOWUP: 1. Haemophilus influenza bacteremia pneumonia. 2. Oropharyngeal candidiasis. INTERVAL HISTORY: The patient is currently afebrile. The patient is slightly more awake and alert. The patient is breathing comfortably on room air. No chest pain or cough. No abdominal pain or diarrhea. PHYSICAL EXAMINATION: Blood pressure 122/63, pulse of 72, temperature 98.6. She is 97% on room air. General description is an elderly female lying in bed in no distress. Respiratory system: Unlabored breathing, decreased breath sounds at bases. No wheeze. Heart S1, S2. Regular rate and rhythm. Abdomen soft, no tenderness. LAB: Hemoglobin 7.1, white count 16.1. BUN 132, creatinine is 1.9. DIAGNOSTIC IMPRESSION AND PLAN: 1. Patient Haemophilus influenzae bacteremia source is likely pneumonia that has been adequately treated currently off antibiotic. 2. Elevated white count, multifactorial, possible component of steroid effect and oropharyngeal candidiasis covered with Eraxis to continue and monitor clinical course closely. MMODL / IJN: [id number] /
[2020-01-25 07:02] LABS: Glucose,Whole Blood 72 mg/dL (75-99)
[2020-01-25] MEDS: DEXTROSE 5% IN WATER 1,000 ML IV SCH ×2 (09:45→17:48)
[2020-01-25] MEDS: INSULIN ASPART (NovoLOG) 100 UNIT/ML VIAL SQ SCH ×4 (09:46→21:07)
[2020-01-25] MEDS: ENOXAPARIN 40 MG/0.4 ML SYRINGE SQ SCH ×2 (09:53→21:08)
[2020-01-25] MEDS: CHOLECALCIFEROL 1,000 UNIT TAB PO SCH (09:53)
[2020-01-25] MEDS: ZINC SULFATE 220 MG CAP PO SCH (09:53)
[2020-01-25] MEDS: LIDOCAINE 5% PATCH TOPICAL SCH (09:53)
[2020-01-25] MEDS: ASPIRIN 81 MG PO SCH (09:53)
[2020-01-25] MEDS: SENNOSIDES 8.6 MG TAB PO SCH ×2 (09:53→21:09)
[2020-01-25] MEDS: METOPROLOL TARTRATE 50 MG TAB PO SCH ×2 (09:53→21:09)
[2020-01-25] MEDS: ASCORBIC ACID 500 MG TAB PO SCH ×2 (09:53→21:08)
--- NOTE | 2020-01-25 11:10 | P.PN ---
Subjective Patient is seen in follow-up for acute kidney injury on chronic kidney disease. Oral intake is fair. Creatinine 1.9 as of yesterday. Diuretics were held yesterday. Nonoliguric. Not a reliable historian. Blood pressure stable. She did receive D5W for a few hours yesterday. Sodium level 141 as of last night. Vital signs are stable. General: The patient appeared well nourished and normally developed. HEENT: Head exam is unremarkable. Neck is without jugular venous distension. LUNGS: Breath sounds decreased. HEART: Rate and Rhythm are regular. ABDOMEN: Soft, obese. EXTREMITITES: 1+ edema. Objective - Vital Signs Vital signs: Vital Signs Temp 97.4 F L 01/25/20 10:00 Pulse 79 01/25/20 10:00 Resp 24 01/25/20 10:00 BP 140/85 01/25/20 10:00 Pulse Ox 99 01/25/20 10:00 Intake & Output 01/24/20 01/25/20 01/25/20 18:59 06:59 18:59 Output Total 450 450 Balance -450 -450 Weight 88 kg 87 kg Output: Urine 450 450 Other: Voiding Method Indwelling Catheter Indwelling Catheter Indwelling Catheter - Labs CBC & Chem 7: 01/24/20 05:50 01/24/20 18:30 Labs: Abnormal Lab Results - Last 24 Hours (Table) 01/24/20 01/24/20 01/24/20 Range/Units 05:50 11:10 16:35 WBC 16.1 H (3.8-10.6) k/uL RBC 2.60 L (3.80-5.40) m/uL Hgb 7.9 L (11.4-16.0) gm/dL Hct 24.7 L (34.0-46.0) % Plt Count 89 L (150-450) k/uL POC Glucose (mg/dL) 133 H 191 H (75-99) mg/dL 01/24/20 01/25/20 Range/Units 20:23 07:00 WBC (3.8-10.6) k/uL RBC (3.80-5.40) m/uL Hgb (11.4-16.0) gm/dL Hct (34.0-46.0) % Plt Count (150-450) k/uL POC Glucose (mg/dL) 230 H 72 L (75-99) mg/dL Assessment and Plan Plan: Assessment: 1. Acute kidney injury mostly prerenal secondary to infection. Creatinine was 2.18 on admission and then stable in the range of 1.3-1.5. Disproportionally elevated BUN partially due to steroids. No evidence of GI bleed. Renal function little worse today due to diuresis. Renal ultrasound revealed 7.8 cm right kidney without any hydronephrosis. Left kidney could not be visualized. 2. Acute hypoxic respiratory failure. 3. Covid19 pneumonia. Status post steroids and remdesivir. 4. Rule out chronic kidney disease. Patient does follow with a cyber security consultant outpatient. Unknown baseline renal function. 5. Haemophilus influenza bacteremia status post antibiotics. 6. Anemia of chronic kidney disease. Iron replete. Maintained on Aranesp. 7. Volume overload. Better. 8. Acute on chronic diastolic CHF. 9. Hypernatremia secondary to shock for oral water intake and free water diuresis. Status post D5W. Better. Plan: Encourage oral intake. Continue to hold diuretics. Follow-up stool for occult blood. Avoid nephrotoxins. Continue to monitor renal function and urine output. Morning labs pending.
--- NOTE | 2020-01-25 11:13 | P.PN ---
Progress Note - Text Progress Note Date: 01/25/20 Patient's calorie count was noted. She appears to have poor intake. She'll most likely need a PEG tube placed
[2020-01-25 11:28] LABS: Glucose,Whole Blood 167 mg/dL (75-99)
[2020-01-25 12:19] LABS: MCH 31.3 pg (25.0-35.0); MCHC 33.2 g/dL (31.0-37.0); MCV 94.3 fL (80.0-100.0); Mean Platelet Volume 10.5; RDW 15.2 % (11.5-15.5); WBC 14.3 k/uL (3.8-10.6)
[2020-01-25 12:26] LABS: Platelet Count 77 k/uL (150-450)
[2020-01-25 12:28] LABS: HCT 19.8 % (34.0-46.0); HGB 6.6 gm/dL (11.4-16.0)
[2020-01-25 16:36] LABS: Glucose,Whole Blood 209 mg/dL (75-99)
[2020-01-25 17:25] LABS: African American GFR (CKD) 25.7 (60.0-200.0); Anion Gap 11.9 mmol/L (4.00-12.00); BUN/Creat Ratio 65.24 Ratio (12.00-20.00); Calcium 7.7 mg/dL (8.7-10.3); Carbon Dioxide 23.1 mmol/L (21.6-31.8); Magnesium 2.4 mg/dL (1.5-2.4); Non-African American GFR(CKD) 22.1 (60.0-200.0); Potassium 3.8 mmol/L (3.5-5.5)
--- NOTE | 2020-01-25 18:09 | PN ---
PROGRESS NOTE PULMONARY/CRITICAL CARE PROGRESS NOTE: DATE OF SERVICE: January 25, 2020 This is a 75-year-old female who was admitted back on January 04. She was admitted with a diagnosis of acute hypoxemic respiratory failure secondary to COVID-19 pneumonia. She did get five days of Remdesivir and also received 1 unit of convalescent plasma. Currently, the patient has been weaned to room air. She does have a history of Haemophilus influenzae bacteremia. For that, she is receiving Rocephin. Currently doing reasonably well. She is still quite lethargic and somnolent. She apparently was attempting to speak to her daughter on the phone earlier today. PHYSICAL EXAMINATION: VITAL SIGNS: Current vital signs are reviewed. Temperature is 98.2, heart rate 68, respiratory rate 20, blood pressure 130/92, mean 104, room air saturation 99%. She appears in no acute distress. HEENT: Examination is grossly unremarkable. NECK: Supple, full range of motion. No adenopathy. Neck veins are flat. CARDIOVASCULAR: Examination reveals regular rhythm and rate. Heart rate 68 beats per minute. S1, S2 normal. LUNGS: Reveal mild coarse rhonchi. Breath sounds equal. She does not take real deep breaths. ABDOMEN: Soft, bowel sounds are heard. EXTREMITIES are intact. No cyanosis or clubbing. There is diffuse edema. There is diffuse anasarca. SKIN: Without rash. There are multiple areas of ecchymoses. NEUROLOGIC: Examination is difficult to assess but she does appear to be stable from that standpoint. She is profoundly weak throughout. White count 14.3, hemoglobin 6.6, hematocrit 19.8, platelet count 77,000. Microbiology showing evidence of Haemophilus influenzae in some blood cultures on January 06. That was treated. No recent chest x-ray to report. MEDICATIONS: Reviewed. Currently, the patient is on Tylenol, albuterol inhaler, Eraxis, ascorbic acid, aspirin, vitamin D3, clonidine patch, Aranesp, Lovenox, Haldol, hydralazine, insulin, Lidoderm patch, metoprolol, Narcan, potassium replacement, Senokot, and zinc. In addition, the patient did receive 1 unit of PRBCs today. ASSESSMENT: 1. Acute hypoxemic respiratory failure secondary to acute COVID-19 pneumonia/pneumonitis, currently doing better. The patient did receive five days of Remdesivir, 1 unit of convalescent plasma, and has been weaned off supplemental oxygen. 2. Haemophilus influenzae bacteremia, treated. 3. Acute kidney injury, improved. 4. Anemia, currently receiving 1 unit of PRBCs. 5. Toxic/metabolic encephalopathy, minimally improved. 6. Essential hypertension. 7. Hyperlipidemia. 8. Acute kidney injury. 9. Generalized edema and anasarca. PLAN: The patient is going to receive 1 unit of blood. She has been weaned off of supplemental oxygen. Additional recommendations and suggestions are forthcoming. Prognosis is guarded. We will continue to follow. Mental status is still poor. MMODL / IJN: [id number] /
[2020-01-25 20:20] LABS: Glucose,Whole Blood 216 mg/dL (75-99)
[2020-01-25] MEDS: INSULIN DETEMIR (LEVEMIR) 100 UNIT/ML SYR SQ SCH (21:07)
[2020-01-25] MEDS: ANIDULAFUNGIN 100 MG in SODIUM CHLORIDE 0.9% 100 ML IVPB SCH (21:08)
--- NOTE | 2020-01-25 22:43 | PN ---
PROGRESS NOTE DATE OF SERVICE: 01/25/2020. REASON FOR FOLLOW UP: Oropharyngeal candidiasis, elevated white count. INTERVAL HISTORY: Patient is currently afebrile. The patient is breathing comfortably on room air. She is slightly more sleepy and did not answer any questions. No vomiting or diarrhea has been reported. PHYSICAL EXAMINATION: Her blood pressure is 137/76, pulse of 95, temperature 98.3. She is 98% on room air. General description: The patient is an elderly female lying in bed in no distress. Respiratory system: Unlabored breathing, decreased breath sounds at bases. No wheeze. Heart S1, S2. Regular rate and rhythm. ABDOMEN: Soft, no tenderness. LABS: Hemoglobin 6.1, white count 14.3, BUN of 137, creatinine is 2.1. DIAGNOSTIC IMPRESSION AND PLAN: 1. Patient with Haemophilus influenzae bacteremia source likely pneumonia that has been adequately treated. 2. Patient with oropharyngeal candidiasis, elevated white count showing a downward trend with Eraxis to continue and monitor clinical course closely. MMODL / IJN: [id number] /
--- NOTE | 2020-01-26 00:27 | P.PN ---
Subjective Progress Note Date: 01/24/20 Principal diagnosis: Acute hypoxic respiratory failure: secondary to covid 19 pneumonia 74-year-old female is admitted for hypoxia elevated troponins found to have positive Covid. Patient was transferred from outside hospital. Patient at baseline apparently is awake and alert. Patient is oriented 1 at this time. Patient did have fever and shortness of breath because of which patient was sent in here. Patient has elevated urine creatinine of 2.5 baseline is not available but patient apparently has chronic kidney disease. Does follow with a sales closer as an outpatient. Patient is found to have mildly elevated troponins of 0.2-3. Patient denied any chest pain although patient is extremely poor historian because of her confusion and hearing problems. His blood cultures from the other hospital came back positive for gram-positive cocci unsure whether it's clusters sore repairs. Patient will be started on vancomycin infectious disease will be consulted may need tube be switched to daptomycin, considering her kidney function. 01/07/2020 Patient is presently on the eighth liters of oxygen although patient is not in respiratory distress whenever she doesn't wear this oxygen his sister AND saturation dropped down to 80%. Patient blood cultures are positive for coag is negative staph which is a contamination and medics will be discontinued. Repeat cultures are pending 01/08/2020 Patient progressively became dyspneic was transferred to intensive care unit patient was started on Rocephin and azithromycin for secondary bacterial pneumonia, IV recommended vancomycin as well. Patient had a central line placed.. Creatinine improved to 1.9. Patient is presently on Remdesivir date 3 along with Decadron, vitamin C, vitamin D and zinc 01/09/2020 Patient is bacteremic with Haemophilus influenza repeat blood cultures will be obtained and patient is on Rocephin patient is presently on 55 L of oxygen. Patient has severe toxic encephalopathy with tremors. Neurology evaluated the patient. 01/10/2020 Patient's tremors and shaking he is better patient continues to be on Pracedex. Bicarbonate drip was discontinued patient has hyperchloremia and hyper next anemia because of which patient will be switched to half-normal saline. 01/11/2020 Patient is also receiving metoprolol apart from a clonidine because of her tachycardia and hypertension patient presently doesn't have an NG tube patient is presently nothing by mouth. Patient is presently on 60 L of oxygen via able. 01/12/2020 Patient still remains on high oxygen about the 55 L. Patient repeat cultures for last 3 days with negative had Haemophilus influenza. Remains on Decadron. Patient has toxic metabolic encephalopathy. 01/13/2020 Patient remains on 45 L of oxygen still having fever highly elevated the inflammatory markers. Patient had an NG tube now and is receiving Glucerna. Chest x-ray from today showing peripheral infiltrates there is a downward trend and d-dimer. 01/14/2020 No significant change in her respiratory status. Patient is afebrile since yesterday morning. Inflammatory markers trended down. Patient remains on 45 L of oxygen 01/15/2020 Patient is awake alert. Currently on high flow oxygen on airvo. Complaints of generalized weakness and shortness of breath and cough. Chest x-ray showed stable chest with bilateral infiltrates and small left-sided pleural effusion. Patient is being continued on antibiotics in the form of ceftriaxone and ant ifungal Eraxis. Blood cultures grew haemophilus influenza and repeat cultures have been negative so far. Laboratory data showed WBC 22.1, hemoglobin 10.8 and platelets 157 absolute lymphocyte count 0.66 BUN 72 and creatinine 1.45 Elevated inflammatory markers. 01/23/2020 Patient is seen and evaluated in follow-up much more awake although fatigues easily. Patient is eating more per nursing staff and tolerating honey thickened diet at this time. Patient is maintaining oxygen saturations on 4 L via nasal cannula in the high 90s. Patient is a mouth breather as well oral mucosa is dry. Patient is taking medications per nursing staff. BUN continues to be elevated and nephrology is following. Creatinine is 1.7. Magnesium elevated at 2.6, potassium is 4.1. Surgery following with the possibility of PEG tube placement and patient currently undergoing calorie counting. Multiple medical consultations following. PT/OT therapy attempted to work with the patient and patient continues to be a max assist and barely moving out of the bed. Case management and social work also following as patient will require an ECF for rehab stabilized and discharged. 01/24/2020 Patient is currently lying in the bed comfortable and unable to provide any history. patient does have poor oral intake. Patient has trouble swallowing. General surgery was consulted for possible PEG tube placement. Otherwise laboratory test showed renal function with creatinine of 1.9 and BUN 132 likely due to steroids. Pulmonary nephrology is following. Current medications reviewed. Review of systems: Unable to obtain given patient's confusional state and increased fatigue All inpatient medications were reviewed and appropriate changes in these medications as dictated in the interval history and assessment and plan. Objective - Vital Signs Vital signs: Vital Signs Temp 97.7 F 01/24/20 14:39 Pulse 66 01/24/20 15:34 Resp 18 01/24/20 14:39 BP 128/83 01/24/20 14:39 Pulse Ox 96 01/24/20 15:34 Intake & Output 01/23/20 01/24/20 01/24/20 18:59 06:59 18:59 Output Total 1000 600 Balance -1000 -600 Weight 88.6 kg 88 kg 88 kg Output: Urine 1000 600 Other: Voiding Method Indwelling Catheter Indwelling Catheter Indwelling Catheter # Bowel Movements 0 - Exam - Exam GENERAL: lethargic although arousable. More awake today. Well developed, well nourished. Temp is 98.4F, pulse is 59, respirations are 22, blood pressure is 131/80, oxygen saturation is 100 % on 4 L via nasal cannula HEENT: Pupils are round and equally reacting to light. EOMI. No scleral icterus. No conjunctival pallor. Normocephalic, atraumatic. No pharyngeal erythema. No thyromegaly. Oral mucosa is dry CARDIOVASCULAR: S1 and S2 muffled. No murmurs, rubs, or gallops. PULMONARY: diminished breath sounds bilaterally with some scattered rhonchi noted ABDOMEN: Soft, nontender, nondistended, normoactive bowel sounds. No palpable organomegaly. MUSCULOSKELETAL: No joint swelling or deformity. EXTREMITIES: No cyanosis, clubbing, or pedal edema. Bilateral upper and lower extremity pitting edema noted, 3+ NEUROLOGICAL: Lethargic although more easily arousable to name today. Patient shrugs her shoulders and nontender head when asked questions. Patient attempts to speak and is mouthing words although nothing is coming out. Gross neurological examination did not reveal any focal deficits. Diffusely weak - Labs CBC & Chem 7: 01/25/20 12:05 01/25/20 12:05 Labs: Abnormal Lab Results - Last 24 Hours (Table) 01/23/20 01/24/20 01/24/20 Range/Units 20:22 05:50 05:50 WBC 16.1 H (3.8-10.6) k/uL RBC 2.60 L (3.80-5.40) m/uL Hgb 7.9 L (11.4-16.0) gm/dL Hct 24.7 L (34.0-46.0) % Plt Count 89 L (150-450) k/uL Sodium 148 H (135-145) mmol/L Chloride 111 H (96-109) mmol/L BUN 132.0 H* (9.0-27.0) mg/dL Creatinine 1.9 H (0.6-1.5) mg/dL Est GFR (CKD-EPI)AfAm 29.0 L (60.0-200.0) Est GFR (CKD-EPI)NonAf 25.0 L (60.0-200.0) BUN/Creatinine Ratio 69.47 H (12.00-20.00) Ratio Glucose 112 H (70-110) mg/dL POC Glucose (mg/dL) 138 H (75-99) mg/dL Calcium 7.9 L (8.7-10.3) mg/dL 01/24/20 01/24/20 01/24/20 Range/Units 07:02 11:10 16:35 WBC (3.8-10.6) k/uL RBC (3.80-5.40) m/uL Hgb (11.4-16.0) gm/dL Hct (34.0-46.0) % Plt Count (150-450) k/uL Sodium (135-145) mmol/L Chloride (96-109) mmol/L BUN (9.0-27.0) mg/dL Creatinine (0.6-1.5) mg/dL Est GFR (CKD-EPI)AfAm (60.0-200.0) Est GFR (CKD-EPI)NonAf (60.0-200.0) BUN/Creatinine Ratio (12.00-20.00) Ratio Glucose (70-110) mg/dL POC Glucose (mg/dL) 129 H 133 H 191 H (75-99) mg/dL Calcium (8.7-10.3) mg/dL Assessment and Plan Assessment: -Acute hypoxic respiratory failure: secondary to covid 19 pneumonia. -secondary bacterial pneumonia, with Haemophilus influenza -bacteremia -Toxic encephalopathy, altered mental status: Secondary to infection -Elevated troponin secondary to infection and renal failure -Acute kidney injury secondary to infection patient does have chronic kidney disease unable to stage chronic kidney disease as baseline is not known. -Hypertension -Hyperlipidemia -Possible myoclonus: Secondary to encephalopathy -DVT prophylaxis with heparin Recommendations and discussion: Recommend to continue with current medications, management, and symptomatic treatment. Surgery following for the possibility of a PEG tube as patient continues to be lethargic and continued poor oral intake. Patient currently undergoing three-day calorie count. Oral intake slightly improved per nursing staff today. Will continue to monitor and encourage increased oral intake as tolerated. Continue with IV antibiotics along with IV steroids and breathing inhalational treatments. Multiple medical consultations following including pulmonary, neurology, and infectious disease. Nephrology following. PT/OT following an patient is a max assist. Patient will require ECF for continued rehab once discharged. Maintain strict aspiration precautions and continue with the head of the bed elevated 30-45 degrees with one-to-one supervision. Will repeat am labs and monitor vitals closely. Prognosis remains guarded. Further recommendations to follow. Time with Patient: Greater than 30
--- NOTE | 2020-01-26 00:35 | P.PN ---
Subjective Progress Note Date: 01/25/20 Principal diagnosis: Acute hypoxic respiratory failure: secondary to covid 19 pneumonia 74-year-old female is admitted for hypoxia elevated troponins found to have positive Covid. Patient was transferred from outside hospital. Patient at baseline apparently is awake and alert. Patient is oriented 1 at this time. Patient did have fever and shortness of breath because of which patient was sent in here. Patient has elevated urine creatinine of 2.5 baseline is not available but patient apparently has chronic kidney disease. Does follow with a windshield installer as an outpatient. Patient is found to have mildly elevated troponins of 0.2-3. Patient denied any chest pain although patient is extremely poor historian because of her confusion and hearing problems. His blood cultures from the other hospital came back positive for gram-positive cocci unsure whether it's clusters sore repairs. Patient will be started on vancomycin infectious disease will be consulted may need tube be switched to daptomycin, considering her kidney function. 01/07/2020 Patient is presently on the eighth liters of oxygen although patient is not in respiratory distress whenever she doesn't wear this oxygen his sister AND saturation dropped down to 80%. Patient blood cultures are positive for coag is negative staph which is a contamination and medics will be discontinued. Repeat cultures are pending 01/08/2020 Patient progressively became dyspneic was transferred to intensive care unit patient was started on Rocephin and azithromycin for secondary bacterial pneumonia, IV recommended vancomycin as well. Patient had a central line placed.. Creatinine improved to 1.9. Patient is presently on Remdesivir date 3 along with Decadron, vitamin C, vitamin D and zinc 01/09/2020 Patient is bacteremic with Haemophilus influenza repeat blood cultures will be obtained and patient is on Rocephin patient is presently on 55 L of oxygen. Patient has severe toxic encephalopathy with tremors. Neurology evaluated the patient. 01/10/2020 Patient's tremors and shaking he is better patient continues to be on Pracedex. Bicarbonate drip was discontinued patient has hyperchloremia and hyper next anemia because of which patient will be switched to half-normal saline. 01/11/2020 Patient is also receiving metoprolol apart from a clonidine because of her tachycardia and hypertension patient presently doesn't have an NG tube patient is presently nothing by mouth. Patient is presently on 60 L of oxygen via able. 01/12/2020 Patient still remains on high oxygen about the 55 L. Patient repeat cultures for last 3 days with negative had Haemophilus influenza. Remains on Decadron. Patient has toxic metabolic encephalopathy. 01/13/2020 Patient remains on 45 L of oxygen still having fever highly elevated the inflammatory markers. Patient had an NG tube now and is receiving Glucerna. Chest x-ray from today showing peripheral infiltrates there is a downward trend and d-dimer. 01/14/2020 No significant change in her respiratory status. Patient is afebrile since yesterday morning. Inflammatory markers trended down. Patient remains on 45 L of oxygen 01/15/2020 Patient is awake alert. Currently on high flow oxygen on airvo. Complaints of generalized weakness and shortness of breath and cough. Chest x-ray showed stable chest with bilateral infiltrates and small left-sided pleural effusion. Patient is being continued on antibiotics in the form of ceftriaxone and ant ifungal Eraxis. Blood cultures grew haemophilus influenza and repeat cultures have been negative so far. Laboratory data showed WBC 22.1, hemoglobin 10.8 and platelets 157 absolute lymphocyte count 0.66 BUN 72 and creatinine 1.45 Elevated inflammatory markers. 01/23/2020 Patient is seen and evaluated in follow-up much more awake although fatigues easily. Patient is eating more per nursing staff and tolerating honey thickened diet at this time. Patient is maintaining oxygen saturations on 4 L via nasal cannula in the high 90s. Patient is a mouth breather as well oral mucosa is dry. Patient is taking medications per nursing staff. BUN continues to be elevated and nephrology is following. Creatinine is 1.7. Magnesium elevated at 2.6, potassium is 4.1. Surgery following with the possibility of PEG tube placement and patient currently undergoing calorie counting. Multiple medical consultations following. PT/OT therapy attempted to work with the patient and patient continues to be a max assist and barely moving out of the bed. Case management and social work also following as patient will require an ECF for rehab stabilized and discharged. 01/24/2020 Patient is currently lying in the bed comfortable and unable to provide any history. patient does have poor oral intake. Patient has trouble swallowing. General surgery was consulted for possible PEG tube placement. Otherwise laboratory test showed renal function with creatinine of 1.9 and BUN 132 likely due to steroids. Pulmonary nephrology is following. 01/25/2020 Patient does have very poor oral intake. General surgery was consulted for PEG tube placement. Calorie count and increased oral intake was recommended. Otherwise patient hemoglobin level is 6.6 today. Will be transfused with 1 unit of PRBC and monitor H&H. Laboratory data showed sodium 149, potassium 3.8, BUN 137 creatinine 2.1 Patient is being treated D5 water. Nephrology is following. Arrest patient is on antifungals. ID is on board. Current medications reviewed. Review of systems: Unable to obtain given patient's confusional state and increased fatigue All inpatient medications were reviewed and appropriate changes in these med ications as dictated in the interval history and assessment and plan. Objective - Vital Signs Vital signs: Vital Signs Temp 98.2 F 01/25/20 14:00 Pulse 68 01/25/20 14:00 Resp 20 01/25/20 14:00 BP 130/92 01/25/20 14:00 Pulse Ox 96 01/25/20 14:00 Intake & Output 01/24/20 01/25/20 01/25/20 18:59 06:59 18:59 Output Total 450 450 Balance -450 -450 Weight 88 kg 87 kg 87 kg Output: Urine 450 450 Other: Voiding Method Indwelling Catheter Indwelling Catheter Indwelling Catheter - Exam - Exam GENERAL: lethargic although arousable. More awake today. Well developed, well nourished. Temp is 98.4F, pulse is 59, respirations are 22, blood pressure is 131/80, oxygen saturation is 100 % on 4 L via nasal cannula HEENT: Pupils are round and equally reacting to light. EOMI. No scleral icterus. No conjunctival pallor. Normocephalic, atraumatic. No pharyngeal erythema. No thyromegaly. Oral mucosa is dry CARDIOVASCULAR: S1 and S2 muffled. No murmurs, rubs, or gallops. PULMONARY: diminished breath sounds bilaterally with some scattered rhonchi noted ABDOMEN: Soft, nontender, nondistended, normoactive bowel sounds. No palpable organomegaly. MUSCULOSKELETAL: No joint swelling or deformity. EXTREMITIES: No cyanosis, clubbing, or pedal edema. Bilateral upper and lower extremity pitting edema noted, 3+ NEUROLOGICAL: Lethargic although more easily arousable to name today. Patient shrugs her shoulders and nontender head when asked questions. Patient attempts to speak and is mouthing words although nothing is coming out. Gross mariluz rological examination did not reveal any focal deficits. Diffusely weak - Labs CBC & Chem 7: 01/25/20 12:05 01/25/20 12:05 Labs: Abnormal Lab Results - Last 24 Hours (Table) 01/24/20 01/25/20 01/25/20 Range/Units 20:23 07:00 11:27 WBC (3.8-10.6) k/uL RBC (3.80-5.40) m/uL Hgb (11.4-16.0) gm/dL Hct (34.0-46.0) % Plt Count (150-450) k/uL Sodium (135-145) mmol/L Chloride (96-109) mmol/L BUN (9.0-27.0) mg/dL Creatinine (0.6-1.5) mg/dL Est GFR (CKD-EPI)AfAm (60.0-200.0) Est GFR (CKD-EPI)NonAf (60.0-200.0) BUN/Creatinine Ratio (12.00-20.00) Ratio Glucose (70-110) mg/dL POC Glucose (mg/dL) 230 H 72 L 167 H (75-99) mg/dL Calcium (8.7-10.3) mg/dL 01/25/20 01/25/20 01/25/20 Range/Units 12:05 12:05 16:36 WBC 14.3 H (3.8-10.6) k/uL RBC 2.10 L (3.80-5.40) m/uL Hgb 6.6 L* (11.4-16.0) gm/dL Hct 19.8 L* (34.0-46.0) % Plt Count 77 L (150-450) k/uL Sodium 149 H (135-145) mmol/L Chloride 114 H (96-109) mmol/L BUN 137.0 H* (9.0-27.0) mg/dL Creatinine 2.1 H (0.6-1.5) mg/dL Est GFR (CKD-EPI)AfAm 25.7 L (60.0-200.0) Est GFR (CKD-EPI)NonAf 22.1 L (60.0-200.0) BUN/Creatinine Ratio 65.24 H (12.00-20.00) Ratio Glucose 158 H (70-110) mg/dL POC Glucose (mg/dL) 209 H (75-99) mg/dL Calcium 7.7 L (8.7-10.3) mg/dL Assessment and Plan Assessment: -Acute hypoxic respiratory failure: secondary to covid 19 pneumonia. -secondary bacterial pneumonia, with Haemophilus influenza -bacteremia -Toxic encephalopathy, altered mental status: Secondary to infection -Elevated troponin secondary to infection and renal failure -Acute kidney injury secondary to infection patient does have chronic kidney disease unable to stage chronic kidney disease as baseline is not known. -Hypernatremia due to dehydration volume depletion. -Hypertension -Hyperlipidemia -Possible myoclonus: Secondary to encephalopathy -DVT prophylaxis with heparin Recommendations and discussion: Recommend to continue with current medications, management, and symptomatic treatment. Surgery following for the possibility of a PEG tube as patient continues to be lethargic and continued poor oral intake. Patient currently undergoing three-day calorie count. Oral intake slightly improved per nursing staff today. Will continue to monitor and encourage increased oral intake as tolerated. Continue with IV antibiotics along with IV steroids and breathing inhalational treatments. Multiple medical consultations following including pulmonary, neurology, and infectious disease. Nephrology following. PT/OT following an patient is a max assist. Patient will require ECF for continued rehab once discharged. Maintain strict aspiration precautions and continue with the head of the bed elevated 30-45 degrees with one-to-one supervision. Will repeat am labs and monitor vitals closely. Prognosis remains guarded. Further recommendations to follow. Time with Patient: Greater than 30
[2020-01-26 06:14] LABS: HCT 27.1 % (34.0-46.0); MCH 32.5 pg (25.0-35.0); MCHC 34.6 g/dL (31.0-37.0); MCV 94.1 fL (80.0-100.0); Mean Platelet Volume 11.9; RBC 2.88 m/uL (3.80-5.40); RDW 15.6 % (11.5-15.5); WBC 19.6 k/uL (3.8-10.6)
[2020-01-26 06:31] LABS: HGB 9.4 gm/dL (11.4-16.0)
[2020-01-26 06:34] LABS: Platelet Count 86 k/uL (150-450)
[2020-01-26 07:01] LABS: Lymphocytes # (M) 1.18 k/uL (1.0-4.8); Monocytes # (M) 0.39 k/uL (0-1.0); Neutrophils # (M) 18.03 k/uL (1.3-7.7); Neutrophils % (M) 92 %; Nucleated Red Blood Cells 0 /100 WBC (0-0); Total Cells Counted 100
[2020-01-26 07:08] LABS: Glucose,Whole Blood 66 mg/dL (75-99)
[2020-01-26] MEDS: INSULIN ASPART (NovoLOG) 100 UNIT/ML VIAL SQ SCH ×4 (07:17→23:43)
[2020-01-26] MEDS: LACTATED RINGERS 1,000 ML IV SCH (07:17)
[2020-01-26 07:22] LABS: Glucose,Whole Blood 203 mg/dL (75-99)
[2020-01-26 07:30] LABS: Glucose,Whole Blood 66 mg/dL (75-99)
[2020-01-26 07:30] LABS: Glucose,Whole Blood 163 mg/dL (75-99)
[2020-01-26 07:34] LABS: Glucose,Whole Blood 140 mg/dL (75-99); Glucose,Whole Blood 74 mg/dL (75-99)
[2020-01-26] MEDS: METOPROLOL TARTRATE 50 MG TAB PO SCH (09:41)
[2020-01-26] MEDS: ASCORBIC ACID 500 MG TAB PO SCH (09:41)
[2020-01-26] MEDS: ASPIRIN 81 MG PO SCH (09:41)
[2020-01-26] MEDS: ZINC SULFATE 220 MG CAP PO SCH (09:41)
[2020-01-26] MEDS: SENNOSIDES 8.6 MG TAB PO SCH (09:41)
[2020-01-26] MEDS: CHOLECALCIFEROL 1,000 UNIT TAB PO SCH (09:41)
[2020-01-26] MEDS: ENOXAPARIN 40 MG/0.4 ML SYRINGE SQ SCH (09:42)
[2020-01-26 09:45] LABS: Glucose,Whole Blood 139 mg/dL (75-99); Glucose,Whole Blood 156 mg/dL (75-99)
[2020-01-26] MEDS: DEXTROSE 5% IN WATER 1,000 ML IV SCH (09:51)
[2020-01-26] MEDS: LIDOCAINE 5% PATCH TOPICAL SCH (09:52)
[2020-01-26 09:58] LABS: Anion Gap 11.5 mmol/L (4.00-12.00); BUN/Creat Ratio 71.58 Ratio (12.00-20.00); Calcium 7.7 mg/dL (8.7-10.3); Carbon Dioxide 26.5 mmol/L (21.6-31.8); Magnesium 2.5 mg/dL (1.5-2.4); Potassium 3.5 mmol/L (3.5-5.5)
--- NOTE | 2020-01-26 10:27 | P.PN ---
Subjective Progress Note Date: 01/26/20 The patient is being seen in follow-up. The patient was treated for a colitis overnight related pneumonia and septic shock secondary to Haemophilus influenza. Currently is on the medical floor. She is on oxygen at room air. Her chest x- ray is gradually cleared up. She has oropharyngeal candidiasis and the patient is currently on Eraxis. The patient is going to undergo a PEG tube insertion for enteral feeding and nutritional support. She is sleepy. She is still lethargic. No agitation. Does have some hypochloremic hyponatremia and the sodium level is up. Her blood sugar was lower earlier this morning and this was completed. She continues to have some edema in all 4 extremities and she continues to have a triple-lumen cath in her left subclavian. She is on room air oxygen for now. She has Objective - Vital Signs Vital signs: Vital Signs Temp 96.2 F L 01/26/20 10:00 Pulse 72 01/26/20 10:00 Resp 16 01/26/20 10:00 BP 138/80 01/26/20 10:00 Pulse Ox 100 01/26/20 10:00 Intake & Output 01/25/20 01/26/20 01/26/20 18:59 06:59 18:59 Intake Total 310 Output Total 350 Balance -40 Weight 87 kg 84.5 kg Intake: Blood Product 310 Rc As-1 Unit 310 [id number] Output: Urine 350 Other: Voiding Method Indwelling Catheter Indwelling Catheter - Exam GENERAL EXAM: Alert, confused, but not agitated, 75-year-old white female, on room air oxygen comfortable in no apparent distress. HEAD: Normocephalic/atraumatic. EYES: Normal reaction of pupils, equal size. Conjunctiva pink, sclera white. NOSE: Clear with pink turbinates. NG-tube has been removed THROAT: No erythema or exudates. NECK: No masses, no JVD, no thyroid enlargement, no adenopathy. CHEST: No chest wall deformity. Symmetrical expansion. LUNGS: Equal air entry with no crackles, wheeze, rhonchi or dullness. CVS: Regular rate and rhythm, normal S1 and S2, no gallops, no murmurs, no rubs ABDOMEN: Soft, nontender. No hepatosplenomegaly, normal bowel sounds, no guarding or rigidity. EXTREMITIES: No clubbing,and there is increased edema, no cyanosis, 2+ pulses and upper and lower extremities. MUSCULOSKELETAL: Muscle strength and tone normal. SPINE: No scoliosis or deformity SKIN: No rashes CENTRAL NERVOUS SYSTEM: Confused, but not agitated No focal - Labs CBC & Chem 7: 01/26/20 06:00 01/26/20 06:00 Labs: Abnormal Lab Results - Last 24 Hours (Table) 01/23/20 01/24/20 01/25/20 Range/Units 05:51 05:50 11:27 WBC (3.8-10.6) k/uL RBC (3.80-5.40) m/uL Hgb (11.4-16.0) gm/dL Hct (34.0-46.0) % RDW (11.5-15.5) % Plt Count (150-450) k/uL Neutrophils # (Manual) (1.3-7.7) k/uL Sodium (135-145) mmol/L Chloride (96-109) mmol/L BUN 123.0 H* 132.0 H* (9.0-27.0) mg/dL Creatinine (0.6-1.5) mg/dL Est GFR (CKD-EPI)AfAm (60.0-200.0) Est GFR (CKD-EPI)NonAf 25.0 L (60.0-200.0) BUN/Creatinine Ratio (12.00-20.00) Ratio Glucose (70-110) mg/dL POC Glucose (mg/dL) 167 H (75-99) mg/dL Calcium (8.7-10.3) mg/dL Magnesium (1.5-2.4) mg/dL Crossmatch 01/25/20 01/25/20 01/25/20 Range/Units 12:05 12:05 14:15 WBC 14.3 H (3.8-10.6) k/uL RBC 2.10 L (3.80-5.40) m/uL Hgb 6.6 L* (11.4-16.0) gm/dL Hct 19.8 L* (34.0-46.0) % RDW (11.5-15.5) % Plt Count 77 L (150-450) k/uL Neutrophils # (Manual) (1.3-7.7) k/uL Sodium 149 H (135-145) mmol/L Chloride 114 H (96-109) mmol/L BUN 137.0 H* (9.0-27.0) mg/dL Creatinine 2.1 H (0.6-1.5) mg/dL Est GFR (CKD-EPI)AfAm 25.7 L (60.0-200.0) Est GFR (CKD-EPI)NonAf 22.1 L (60.0-200.0) BUN/Creatinine Ratio 65.24 H (12.00-20.00) Ratio Glucose 158 H (70-110) mg/dL POC Glucose (mg/dL) (75-99) mg/dL Calcium 7.7 L (8.7-10.3) mg/dL Magnesium (1.5-2.4) mg/dL Crossmatch See Detail 01/25/20 01/25/20 01/26/20 Range/Units 16:36 20:18 06:00 WBC (3.8-10.6) k/uL RBC (3.80-5.40) m/uL Hgb (11.4-16.0) gm/dL Hct (34.0-46.0) % RDW (11.5-15.5) % Plt Count (150-450) k/uL Neutrophils # (Manual) (1.3-7.7) k/uL Sodium 153 H (135-145) mmol/L Chloride 115 H (96-109) mmol/L BUN 136.0 H* (9.0-27.0) mg/dL Creatinine 1.9 H (0.6-1.5) mg/dL Est GFR (CKD-EPI)AfAm 29.0 L (60.0-200.0) Est GFR (CKD-EPI)NonAf 25.0 L (60.0-200.0) BUN/Creatinine Ratio 71.58 H (12.00-20.00) Ratio Glucose 46 L* (70-110) mg/dL POC Glucose (mg/dL) 209 H 216 H (75-99) mg/dL Calcium 7.7 L (8.7-10.3) mg/dL Magnesium 2.5 H (1.5-2.4) mg/dL Crossmatch 01/26/20 01/26/20 01/26/20 Range/Units 06:00 07:05 07:21 WBC 19.6 H (3.8-10.6) k/uL RBC 2.88 L (3.80-5.40) m/uL Hgb 9.4 L D (11.4-16.0) gm/dL Hct 27.1 L (34.0-46.0) % RDW 15.6 H (11.5-15.5) % Plt Count 86 L (150-450) k/uL Neutrophils # (Manual) 18.03 H (1.3-7.7) k/uL Sodium (135-145) mmol/L Chloride (96-109) mmol/L BUN (9.0-27.0) mg/dL Creatinine (0.6-1.5) mg/dL Est GFR (CKD-EPI)AfAm (60.0-200.0) Est GFR (CKD-EPI)NonAf (60.0-200.0) BUN/Creatinine Ratio (12.00-20.00) Ratio Glucose (70-110) mg/dL POC Glucose (mg/dL) 66 L 203 H (75-99) mg/dL Calcium (8.7-10.3) mg/dL Magnesium (1.5-2.4) mg/dL Crossmatch 01/26/20 01/26/20 01/26/20 Range/Units 07:26 07:28 07:32 WBC (3.8-10.6) k/uL RBC (3.80-5.40) m/uL Hgb (11.4-16.0) gm/dL Hct (34.0-46.0) % RDW (11.5-15.5) % Plt Count (150-450) k/uL Neutrophils # (Manual) (1.3-7.7) k/uL Sodium (135-145) mmol/L Chloride (96-109) mmol/L BUN (9.0-27.0) mg/dL Creatinine (0.6-1.5) mg/dL Est GFR (CKD-EPI)AfAm (60.0-200.0) Est GFR (CKD-EPI)NonAf (60.0-200.0) BUN/Creatinine Ratio (12.00-20.00) Ratio Glucose (70-110) mg/dL POC Glucose (mg/dL) 163 H 66 L 140 H (75-99) mg/dL Calcium (8.7-10.3) mg/dL Magnesium (1.5-2.4) mg/dL Crossmatch 01/26/20 01/26/20 01/26/20 Range/Units 07:32 09:43 09:43 WBC (3.8-10.6) k/uL RBC (3.80-5.40) m/uL Hgb (11.4-16.0) gm/dL Hct (34.0-46.0) % RDW (11.5-15.5) % Plt Count (150-450) k/uL Neutrophils # (Manual) (1.3-7.7) k/uL Sodium (135-145) mmol/L Chloride (96-109) mmol/L BUN (9.0-27.0) mg/dL Creatinine (0.6-1.5) mg/dL Est GFR (CKD-EPI)AfAm (60.0-200.0) Est GFR (CKD-EPI)NonAf (60.0-200.0) BUN/Creatinine Ratio (12.00-20.00) Ratio Glucose (70-110) mg/dL POC Glucose (mg/dL) 74 L 139 H 156 H (75-99) mg/dL Calcium (8.7-10.3) mg/dL Magnesium (1.5-2.4) mg/dL Crossmatch Assessment and Plan Plan: 1 Acute bilateral COVID 19 pneumonia, with secondary respiratory failure. The patient is currently on room air oxygen.She was on a combination of Decadron patient completed the course of Remdesivir and she also took convalescent p lasma. The patient currently is on IV Solu-Medrol.the patient has recovered from the pneumonia. 2 Acute hypoxic respiratory failure,recovered 3 bacteremia sepsis secondary to Haemophilus influenza, likely of a pulmonary source and the patient is currently on Rocephin 2 g every 24 hours. The patient is hemodynamically stable. this was treated. 4 SELENE improving on top of the chronic kidney disease 5 Non anion gap meabolic acidosis, recovered 5 altered mental status /encephalopathy, likely metabolic in nature as the patient has Covid 19 related pneumonia in addition to septicemia , improving slowly 6 hypertension 7 hyperlipidemia 8 troponin leak with a preserved LV function. 9 pedal edema in all 4 extremities 10 dysphagia and the patient has oropharyngeal candidiasis and the patient is going to undergo effectively session today. 11 hyperchloremic hypernatremia Plan keep the patient D5 water at the rate of 100 mL an hour Monitor renal function, creatinine continues to improve, and monitor the sodium level and the rest of the electrolytes Anticoagulation with Lovenox 40 mg subcu every 24 hours currently the patient is on room air oxygen continue EraxisFor oropharyngeal candidiasis Thank you insertion today Physical therapy Aspiration precautions Levemir insulin We'll continue to follow.
[2020-01-26 11:41] LABS: Glucose,Whole Blood 95 mg/dL (75-99)
[2020-01-26 11:41] LABS: Glucose,Whole Blood 84 mg/dL (75-99)
[2020-01-26] MEDS ORDERED: fentaNYL (PF) 50 MCG/ML 2 ML AMP ONE (12:53)
[2020-01-26] MEDS ORDERED: PROPOFOL 10 MG/ML 20 ML VIAL IV ONE (12:53)
[2020-01-26] MEDS ORDERED: MIDAZOLAM 2 MG/2 ML VIAL ONE (12:53)
[2020-01-26 13:11] LABS: HGB 8.6 gm/dL (11.4-16.0)
[2020-01-26 13:48] LABS: Glucose,Whole Blood 174 mg/dL (75-99)
[2020-01-26 14:18] LABS: Glucose,Whole Blood 113 mg/dL (75-99)
[2020-01-26 14:19] LABS: Anisocytosis Slight; HCT 25.4 % (34.0-46.0); HGB 8.6 gm/dL (11.4-16.0); MCH 31.4 pg (25.0-35.0); MCHC 33.8 g/dL (31.0-37.0); MCV 92.7 fL (80.0-100.0); Mean Platelet Volume 10.3; RBC 2.74 m/uL (3.80-5.40); WBC 18.9 k/uL (3.8-10.6)
[2020-01-26 14:20] LABS: Platelet Count 79 k/uL (150-450)
[2020-01-26 14:33] LABS: ABG Base Excess -2.3 mmol/L; ABG HCO3 21 mmol/L (21-25); ABG Oxygen Saturation 99.6 % (94-97); ABG PCO2 28 mmHg (35-45); ABG PH 7.49 (7.35-7.45); ABG PO2 134 mmHg (83-108); Allen Test Performed? Yes
[2020-01-26 14:57] LABS: African American GFR (CKD) 28 (>60 ml/min/1.73 sqM); Anion Gap 2 mmol/L; Calcium 7.4 mg/dL (8.4-10.2); Carbon Dioxide 23 mmol/L (22-30); Chloride 116 mmol/L (98-107); Glucose 126 mg/dL (74-99); Non-African American GFR(CKD) 24 (>60 ml/min/1.73 sqM); Potassium 4.5 mmol/L (3.5-5.1); Sodium 141 mmol/L (137-145)
--- NOTE | 2020-01-26 15:56 | PN ---
PROGRESS NOTE The patient is seen for followup for acute kidney injury associated with underlying COVID-19 infection. She is currently comfortable. Patient denies any significant complaints. Oral intake has improved. PHYSICAL EXAMINATION: On examination today, blood pressure was 138/80, heart rate 79 per minute. Patient is afebrile. Examination shows trace edema, bilateral lower extremities. Abdomen is soft, nontender. FLIGHT CONTROL SPECIALIST exam grossly intact. LABS: Labs show sodium 141, potassium 4.5, chloride 116, serum creatinine 1.95, hemoglobin 8.6 g/dL. ASSESSMENT: 1. Acute kidney injury, acute tubular necrosis, nonoliguric, associated with underlying COVID-19 infection and also prerenal; renal function fairly stable last 2 days. 2. Disproportionately elevated BUN secondary to steroids. 3. Nonvisualization of left kidney in a patient with no prior history of nephrectomy. 4. COVID-19 pneumonia, maintained on steroids and remdesivir. 5. Chronic kidney disease with unknown baseline renal function. 6. Haemophilus influenzae bacteremia, status post antibiotics. 7. Volume overload, now improved. 8. Acute on top of chronic diastolic congestive heart failure. 9. Hypernatremia, currently improved, with sodium down to 141. PLAN: Continue to encourage increased fluids. Patient is maintained on D5W, which I will continue for now, and repeat labs in a.m. Continue to avoid nephrotoxic agents. MMODL / IJN: [id number] /
[2020-01-26] MEDS ORDERED: HEPARIN SODIUM,PORCINE 5,000 UNIT/ML 1 ML VIAL SQ SCH (16:00)
[2020-01-26 16:50] LABS: Glucose,Whole Blood 195 mg/dL (75-99)
--- NOTE | 2020-01-26 18:03 | P.PN ---
Subjective Acute hypoxic respiratory failure: secondary to covid 19 pneumonia 74-year-old female is admitted for hypoxia elevated troponins found to have positive Covid. Patient was transferred from outside hospital. Patient at baseline apparently is awake and alert. Patient is oriented 1 at this time. Patient did have fever and shortness of breath because of which patient was sent in here. Patient has elevated urine creatinine of 2.5 baseline is not available but patient apparently has chronic kidney disease. Does follow with a flower pot press operator as an outpatient. Patient is found to have mildly elevated troponins of 0.2-3. Patient denied any chest pain although patient is extremely poor historian because of her confusion and hearing problems. His blood cultures from the other hospital came back positive for gram-positive cocci unsure whether it's clusters sore repairs. Patient will be started on vancomycin infectious disease will be consulted may need tube be switched to daptomycin, considering her kidney function. 01/07/2020 Patient is presently on the eighth liters of oxygen although patient is not in respiratory distress whenever she doesn't wear this oxygen his sister AND saturation dropped down to 80%. Patient blood cultures are positive for coag is negative staph which is a contamination and medics will be discontinued. Repeat cultures are pending 01/08/2020 Patient progressively became dyspneic was transferred to intensive care unit patient was started on Rocephin and azithromycin for secondary bacterial pneumonia, IV recommended vancomycin as well. Patient had a central line placed.. Creatinine improved to 1.9. Patient is presently on Remdesivir date 3 along with Decadron, vitamin C, vitamin D and zinc 01/09/2020 Patient is bacteremic with Haemophilus influenza repeat blood cultures will be obtained and patient is on Rocephin patient is presently on 55 L of oxygen. Patient has severe toxic encephalopathy with tremors. Neurology evaluated the patient. 01/10/2020 Patient's tremors and shaking he is better patient continues to be on Pracedex. Bicarbonate drip was discontinued patient has hyperchloremia and hyper next anemia because of which patient will be switched to half-normal saline. 01/11/2020 Patient is also receiving metoprolol apart from a clonidine because of her tachycardia and hypertension patient presently doesn't have an NG tube patient is presently nothing by mouth. Patient is presently on 60 L of oxygen via able. 01/12/2020 Patient still remains on high oxygen about the 55 L. Patient repeat cultures for last 3 days with negative had Haemophilus influenza. Remains on Decadron. Patient has toxic metabolic encephalopathy. 01/13/2020 Patient remains on 45 L of oxygen still having fever highly elevated the inflammatory markers. Patient had an NG tube now and is receiving Glucerna. Chest x-ray from today showing peripheral infiltrates there is a downward trend and d-dimer. 01/14/2020 No significant change in her respiratory status. Patient is afebrile since yest erday morning. Inflammatory markers trended down. Patient remains on 45 L of oxygen 01/15/2020 Patient is awake alert. Currently on high flow oxygen on airvo. Complaints of generalized weakness and shortness of breath and cough. Chest x-ray showed stable chest with bilateral infiltrates and small left-sided pleural effusion. Patient is being continued on antibiotics in the form of ceftriaxone and antifungal Eraxis. Blood cultures grew haemophilus influenza and repeat cultures have been negative so far. Laboratory data showed WBC 22.1, hemoglobin 10.8 and platelets 157 absolute lymphocyte count 0.66 BUN 72 and creatinine 1.45 Elevated inflammatory markers. 01/23/2020 Patient is seen and evaluated in follow-up much more awake although fatigues easily. Patient is eating more per nursing staff and tolerating honey thickened diet at this time. Patient is maintaining oxygen saturations on 4 L via nasal cannula in the high 90s. Patient is a mouth breather as well oral mucosa is d ry. Patient is taking medications per nursing staff. BUN continues to be elevated and nephrology is following. Creatinine is 1.7. Magnesium elevated at 2.6, potassium is 4.1. Surgery following with the possibility of PEG tube placement and patient currently undergoing calorie counting. Multiple medical consultations following. PT/OT therapy attempted to work with the patient and patient continues to be a max assist and barely moving out of the bed. Case management and social work also following as patient will require an ECF for rehab stabilized and discharged. 01/24/2020 Patient is currently lying in the bed comfortable and unable to provide any history. patient does have poor oral intake. Patient has trouble swallowing. General surgery was consulted for possible PEG tube placement. Otherwise laboratory test showed renal function with creatinine of 1.9 and BUN 132 likely due to steroids. Pulmonary nephrology is following. 01/25/2020 Patient does have very poor oral intake. General surgery was consulted for PEG tube placement. Calorie count and increased oral intake was recommended. Otherwise patient hemoglobin level is 6.6 today. Will be transfused with 1 unit of PRBC and monitor H&H. Laboratory data showed sodium 149, potassium 3.8, BUN 137 creatinine 2.1 Patient is being treated D5 water. Nephrology is following. Arrest patient is on antifungals. ID is on board. 01/26/2020 Patient was having bleeding around the PEG tube site area. This is probably sec ondary to worsening kidney function and being on Lovenox with the worsening kidney function Lovenox E to excess bleeding or axillary this can urine patient was started on subcutaneous heparin as long as she doesn't bleed any more. Chest x-ray showing right-sided pleural effusion patient appears to have right upper lobe pneumonia patient appears to have acute on chronic hypercapnic respiratory failure. Review of systems: Unable to obtain due to her clinical condition All inpatient medications were reviewed and appropriate changes in these medications as dictated in the interval history and assessment and plan. Objective - Vital Signs Vital signs: Vital Signs Temp 97.6 F 01/26/20 17:41 Pulse 82 01/26/20 17:41 Resp 20 01/26/20 17:41 BP 96/76 01/26/20 17:41 Pulse Ox 100 01/26/20 17:41 Intake & Output 01/25/20 01/26/20 01/26/20 18:59 06:59 18:59 Intake Total 310 Output Total 350 Balance -40 Weight 87 kg 84.5 kg Intake: Blood Product 310 Rc As-1 Unit 310 [id number] Output: Urine 350 Other: Voiding Method Indwelling Catheter Indwelling Catheter Indwelling Catheter # Bowel Movements 1 - Exam PHYSICAL EXAMINATION: GENERAL: The patient is drowsy unable to assess his orientation not agitated confused, not in any acute distress. Well developed, well nourished. HEENT: Pupils are round and equally reacting to light. EOMI. No scleral icterus. No conjunctival pallor. Normocephalic, atraumatic. No pharyngeal erythema. No thyromegaly. CARDIOVASCULAR: S1 and S2 present. No murmurs, rubs, or gallops. PULMONARY: Chest is clear to auscultation, no wheezing or crackles. ABDOMEN: Soft, nontender, nondistended, normoactive bowel sounds. No palpable organomegaly. MUSCULOSKELETAL: No joint swelling or deformity. EXTREMITIES: No cyanosis, clubbing, or pedal edema. NEUROLOGICAL: Able to assess SKIN: No rashes. - Labs CBC & Chem 7: 01/26/20 13:19 01/26/20 13:19 Labs: Abnormal Lab Results - Last 24 Hours (Table) 01/23/20 01/24/20 01/25/20 Range/Units 05:51 05:50 12:05 WBC (3.8-10.6) k/uL RBC (3.80-5.40) m/uL Hgb (11.4-16.0) gm/dL Hct (34.0-46.0) % RDW (11.5-15.5) % Plt Count (150-450) k/uL Neutrophils # (Manual) (1.3-7.7) k/uL ABG pH (7.35-7.45) ABG pCO2 (35-45) mmHg ABG pO2 (83-108) mmHg ABG O2 Saturation (94-97) % Sodium (135-145) mmol/L Chloride (96-109) mmol/L BUN 123.0 H* 132.0 H* 137.0 H* (9.0-27.0) mg/dL Creatinine (0.6-1.5) mg/dL Est GFR (CKD-EPI)AfAm (60.0-200.0) Est GFR (CKD-EPI)NonAf 25.0 L (60.0-200.0) BUN/Creatinine Ratio (12.00-20.00) Ratio Glucose (70-110) mg/dL POC Glucose (mg/dL) (75-99) mg/dL Calcium (8.7-10.3) mg/dL Magnesium (1.5-2.4) mg/dL Crossmatch 01/25/20 01/25/20 01/26/20 Range/Units 14:15 20:18 06:00 WBC (3.8-10.6) k/uL RBC (3.80-5.40) m/uL Hgb (11.4-16.0) gm/dL Hct (34.0-46.0) % RDW (11.5-15.5) % Plt Count (150-450) k/uL Neutrophils # (Manual) (1.3-7.7) k/uL ABG pH (7.35-7.45) ABG pCO2 (35-45) mmHg ABG pO2 (83-108) mmHg ABG O2 Saturation (94-97) % Sodium 153 H (135-145) mmol/L Chloride 115 H (96-109) mmol/L BUN 136.0 H* (9.0-27.0) mg/dL Creatinine 1.9 H (0.6-1.5) mg/dL Est GFR (CKD-EPI)AfAm 29.0 L (60.0-200.0) Est GFR (CKD-EPI)NonAf 25.0 L (60.0-200.0) BUN/Creatinine Ratio 71.58 H (12.00-20.00) Ratio Glucose 46 L* (70-110) mg/dL POC Glucose (mg/dL) 216 H (75-99) mg/dL Calcium 7.7 L (8.7-10.3) mg/dL Magnesium 2.5 H (1.5-2.4) mg/dL Crossmatch See Detail 01/26/20 01/26/20 01/26/20 Range/Units 06:00 07:05 07:21 WBC 19.6 H (3.8-10.6) k/uL RBC 2.88 L (3.80-5.40) m/uL Hgb 9.4 L D (11.4-16.0) gm/dL Hct 27.1 L (34.0-46.0) % RDW 15.6 H (11.5-15.5) % Plt Count 86 L (150-450) k/uL Neutrophils # (Manual) 18.03 H (1.3-7.7) k/uL ABG pH (7.35-7.45) ABG pCO2 (35-45) mmHg ABG pO2 (83-108) mmHg ABG O2 Saturation (94-97) % Sodium (135-145) mmol/L Chloride (96-109) mmol/L BUN (9.0-27.0) mg/dL Creatinine (0.6-1.5) mg/dL Est GFR (CKD-EPI)AfAm (60.0-200.0) Est GFR (CKD-EPI)NonAf (60.0-200.0) BUN/Creatinine Ratio (12.00-20.00) Ratio Glucose (70-110) mg/dL POC Glucose (mg/dL) 66 L 203 H (75-99) mg/dL Calcium (8.7-10.3) mg/dL Magnesium (1.5-2.4) mg/dL Crossmatch 01/26/20 01/26/20 01/26/20 Range/Units 07:26 07:28 07:32 WBC (3.8-10.6) k/uL RBC (3.80-5.40) m/uL Hgb (11.4-16.0) gm/dL Hct (34.0-46.0) % RDW (11.5-15.5) % Plt Count (150-450) k/uL Neutrophils # (Manual) (1.3-7.7) k/uL ABG pH (7.35-7.45) ABG pCO2 (35-45) mmHg ABG pO2 (83-108) mmHg ABG O2 Saturation (94-97) % Sodium (135-145) mmol/L Chloride (96-109) mmol/L BUN (9.0-27.0) mg/dL Creatinine (0.6-1.5) mg/dL Est GFR (CKD-EPI)AfAm (60.0-200.0) Est GFR (CKD-EPI)NonAf (60.0-200.0) BUN/Creatinine Ratio (12.00-20.00) Ratio Glucose (70-110) mg/dL POC Glucose (mg/dL) 163 H 66 L 140 H (75-99) mg/dL Calcium (8.7-10.3) mg/dL Magnesium (1.5-2.4) mg/dL Crossmatch 01/26/20 01/26/20 01/26/20 Range/Units 07:32 09:43 09:43 WBC (3.8-10.6) k/uL RBC (3.80-5.40) m/uL Hgb (11.4-16.0) gm/dL Hct (34.0-46.0) % RDW (11.5-15.5) % Plt Count (150-450) k/uL Neutrophils # (Manual) (1.3-7.7) k/uL ABG pH (7.35-7.45) ABG pCO2 (35-45) mmHg ABG pO2 (83-108) mmHg ABG O2 Saturation (94-97) % Sodium (135-145) mmol/L Chloride (96-109) mmol/L BUN (9.0-27.0) mg/dL Creatinine (0.6-1.5) mg/dL Est GFR (CKD-EPI)AfAm (60.0-200.0) Est GFR (CKD-EPI)NonAf (60.0-200.0) BUN/Creatinine Ratio (12.00-20.00) Ratio Glucose (70-110) mg/dL POC Glucose (mg/dL) 74 L 139 H 156 H (75-99) mg/dL Calcium (8.7-10.3) mg/dL Magnesium (1.5-2.4) mg/dL Crossmatch 01/26/20 01/26/20 01/26/20 Range/Units 12:30 13:19 13:19 WBC 18.9 H (3.8-10.6) k/uL RBC 2.74 L (3.80-5.40) m/uL Hgb 8.6 L 8.6 L (11.4-16.0) gm/dL Hct 25.4 L (34.0-46.0) % RDW 16.0 H (11.5-15.5) % Plt Count 79 L (150-450) k/uL Neutrophils # (Manual) (1.3-7.7) k/uL ABG pH (7.35-7.45) ABG pCO2 (35-45) mmHg ABG pO2 (83-108) mmHg ABG O2 Saturation (94-97) % Sodium (135-145) mmol/L Chloride 116 H (96-109) mmol/L BUN (9.0-27.0) mg/dL Creatinine 1.95 H (0.6-1.5) mg/dL Est GFR (CKD-EPI)AfAm (60.0-200.0) Est GFR (CKD-EPI)NonAf (60.0-200.0) BUN/Creatinine Ratio (12.00-20.00) Ratio Glucose 126 H (70-110) mg/dL POC Glucose (mg/dL) (75-99) mg/dL Calcium 7.4 L (8.7-10.3) mg/dL Magnesium (1.5-2.4) mg/dL Crossmatch 01/26/20 01/26/20 01/26/20 Range/Units 13:46 14:03 14:28 WBC (3.8-10.6) k/uL RBC (3.80-5.40) m/uL Hgb (11.4-16.0) gm/dL Hct (34.0-46.0) % RDW (11.5-15.5) % Plt Count (150-450) k/uL Neutrophils # (Manual) (1.3-7.7) k/uL ABG pH 7.49 H (7.35-7.45) ABG pCO2 28 L (35-45) mmHg ABG pO2 134 H (83-108) mmHg ABG O2 Saturation 99.6 H (94-97) % Sodium (135-145) mmol/L Chloride (96-109) mmol/L BUN (9.0-27.0) mg/dL Creatinine (0.6-1.5) mg/dL Est GFR (CKD-EPI)AfAm (60.0-200.0) Est GFR (CKD-EPI)NonAf (60.0-200.0) BUN/Creatinine Ratio (12.00-20.00) Ratio Glucose (70-110) mg/dL POC Glucose (mg/dL) 174 H 113 H (75-99) mg/dL Calcium (8.7-10.3) mg/dL Magnesium (1.5-2.4) mg/dL Crossmatch 01/26/20 Range/Units 16:49 WBC (3.8-10.6) k/uL RBC (3.80-5.40) m/uL Hgb (11.4-16.0) gm/dL Hct (34.0-46.0) % RDW (11.5-15.5) % Plt Count (150-450) k/uL Neutrophils # (Manual) (1.3-7.7) k/uL ABG pH (7.35-7.45) ABG pCO2 (35-45) mmHg ABG pO2 (83-108) mmHg ABG O2 Saturation (94-97) % Sodium (135-145) mmol/L Chloride (96-109) mmol/L BUN (9.0-27.0) mg/dL Creatinine (0.6-1.5) mg/dL Est GFR (CKD-EPI)AfAm (60.0-200.0) Est GFR (CKD-EPI)NonAf (60.0-200.0) BUN/Creatinine Ratio (12.00-20.00) Ratio Glucose (70-110) mg/dL POC Glucose (mg/dL) 195 H (75-99) mg/dL Calcium (8.7-10.3) mg/dL Magnesium (1.5-2.4) mg/dL Crossmatch Assessment and Plan Plan: -Acute hypoxic respiratory failure: secondary to covid 19 pneumonia. -secondary bacterial pneumonia, with Haemophilus influenza -bacteremia with Haemophilus influenza -An episode of GI bleed along with the PEG tube site bleeding: Secondary to Lovenox and renal failure Lovenox will be discontinued and patient will be started on heparin subcutaneous if she starts bleeding. -Toxic encephalopathy, altered mental status: Secondary to infection -Elevated troponin secondary to infection and renal failure -Acute kidney injury secondary to infection patient does have chronic kidney disease unable to stage chronic kidney disease as baseline is not known. -Hypernatremia due to dehydration volume depletion. -Hypertension -Hyperlipidemia -Possible myoclonus: Secondary to encephalopathy -DVT prophylaxis with heparin Patient's prognosis is extremely poor clinical condition is guarded
[2020-01-26 20:48] LABS: Glucose,Whole Blood 141 mg/dL (75-99)
--- NOTE | 2020-01-26 23:24 | PN ---
PROGRESS NOTE DATE OF SERVICE: 01/26/2020 REASON FOR FOLLOWUP: Oropharyngeal candidiasis. INTERVAL HISTORY: The patient is currently afebrile. The patient is currently 100% on 2 L nasal cannula. The patient was lethargic, sleepy and unable to provide any history. No vomiting or diarrhea reported by the nursing staff. PHYSICAL EXAMINATION: Blood pressure is 96/76, pulse of 82, temperature 97.6. She is 100% on 2 L nasal cannula. General description is an elderly female lying in bed in no distress. RESPIRATORY SYSTEM: Unlabored breathing with decreased intensity of breath sounds. No wheeze. HEART: S1, S2. Regular rate and rhythm. ABDOMEN: Soft. No tenderness. LABS: Hemoglobin 8.6, white count 18.9, creatinine 1.95. DIAGNOSTIC IMPRESSION AND PLAN: 1. Patient with Haemophilus influenzae bacteremia. Source is pneumonia, adequately treated. 2. Patient with elevated white count possible of oropharyngeal candidiasis, covered with Eraxis. Continue and monitor her clinical course closely. MMODL / IJN: [id number] / MTDD
[2020-01-26 23:32] LABS: Glucose,Whole Blood 171 mg/dL (75-99)
[2020-01-26] MEDS: INSULIN DETEMIR (LEVEMIR) 100 UNIT/ML SYR SQ SCH (23:43)
[2020-01-27] MEDS: ASCORBIC ACID 500 MG TAB PO SCH ×3 (01:15→22:42)
[2020-01-27] MEDS: METOPROLOL TARTRATE 50 MG TAB PO SCH ×3 (01:16→22:43)
[2020-01-27] MEDS: SENNOSIDES 8.6 MG TAB PO SCH ×3 (01:17→22:46)
[2020-01-27] MEDS: DEXTROSE 5% IN WATER 1,000 ML IV SCH ×2 (03:36→09:54)
[2020-01-27] MEDS: ANIDULAFUNGIN 100 MG in SODIUM CHLORIDE 0.9% 100 ML IVPB SCH ×2 (03:36→22:44)
[2020-01-27 06:19] LABS: Anisocytosis Slight; HCT 23.8 % (34.0-46.0); HGB 8.3 gm/dL (11.4-16.0); MCH 33.3 pg (25.0-35.0); MCHC 34.8 g/dL (31.0-37.0); MCV 95.7 fL (80.0-100.0); Mean Platelet Volume 10.2; RBC 2.49 m/uL (3.80-5.40); RDW 16.2 % (11.5-15.5); WBC 15.8 k/uL (3.8-10.6)
[2020-01-27 06:21] LABS: Platelet Count 76 k/uL (150-450)
[2020-01-27 07:09] LABS: Glucose,Whole Blood 106 mg/dL (75-99)
[2020-01-27] MEDS: ZINC SULFATE 220 MG CAP PO SCH (08:14)
[2020-01-27] MEDS: ASPIRIN 81 MG PO SCH (08:14)
[2020-01-27] MEDS: CHOLECALCIFEROL 1,000 UNIT TAB PO SCH (08:15)
[2020-01-27] MEDS: LIDOCAINE 5% PATCH TOPICAL SCH (08:15)
[2020-01-27] MEDS: LACTATED RINGERS 1,000 ML IV SCH (08:45)
[2020-01-27] MEDS: INSULIN ASPART (NovoLOG) 100 UNIT/ML VIAL SQ SCH ×4 (08:45→22:43)
[2020-01-27 09:44] LABS: African American GFR (CKD) 27.2 (60.0-200.0); Anion Gap 10.9 mmol/L (4.00-12.00); Calcium 7.4 mg/dL (8.7-10.3); Carbon Dioxide 23.1 mmol/L (21.6-31.8); Non-African American GFR(CKD) 23.5 (60.0-200.0); Potassium 3.5 mmol/L (3.5-5.5)
--- NOTE | 2020-01-27 10:52 | P.PN ---
Subjective Progress Note Date: 01/27/20 The patient is being seen in follow-up. Currently is on the medical floor. She is on oxygen at room air. Her chest x-ray is gradually cleared up. She has oropharyngeal candidiasis and the patient is currently on Eraxis. The patient is going to undergo a PEG tube insertion for enteral feeding and nutritional support. She is sleepy. She is still lethargic. No agitation. Does have some hypochloremic hyponatremia and the sodium level is up. Her blood sugar was lower earlier this morning and this was completed. She continues to have some edema in all 4 extremities and she continues to have a triple-lumen cath in her left subclavian. She is on room air oxygen for now. on today's evaluation of 01/27/2020, the patient is on 2 L of oxygen by nasal cannula. She is calm and comfortable. He is around 9900%. She remains weak and lethargic. She is still receiving Eraxis for esophageal candidiasis. The patient was having dysphagia. Patient underwent a PEG tube insertion yesterday and the procedure was successful.her sodium level is up to 149. The patient is currently on D5 water running at 100 mL an hour. She continues to have edema in lower extremity. Pablo catheter in place. The catheter is also in place. Enterofeeding may be started today.The patient was treated for a covid related pneumonia and septic shock secondary to Haemophilus influenza. Objective - Vital Signs Vital signs: Vital Signs Temp 97.7 F 01/27/20 10:00 Pulse 61 01/27/20 10:00 Resp 17 01/27/20 10:00 BP 118/79 01/27/20 10:00 Pulse Ox 99 01/27/20 10:00 Intake & Output 01/26/20 01/27/20 01/27/20 18:59 06:59 18:59 Intake Total 310 Output Total 500 Balance -190 Weight 89.5 kg Intake: Blood Product 310 Rc As-1 Unit 310 [id number] Output: Urine 500 Other: Voiding Method Indwelling Catheter Indwelling Catheter Indwelling Catheter # Bowel Movements 1 - Exam GENERAL EXAM: Alert, confused, but not agitated, 75-year-old white female, on room air oxygen comfortable in no apparent distress.the patient doesn't talk much. She will occasionally states few words. HEAD: Normocephalic/atraumatic. EYES: Normal reaction of pupils, equal size. Conjunctiva pink, sclera white. NOSE: Clear with pink turbinates. NG-tube has been removed THROAT: No erythema or exudates. NECK: No masses, no JVD, no thyroid enlargement, no adenopathy. CHEST: No chest wall deformity. Symmetrical expansion. LUNGS: Equal air entry with no crackles, wheeze, rhonchi or dullness. CVS: Regular rate and rhythm, normal S1 and S2, no gallops, no murmurs, no rubs ABDOMEN: Soft, nontender. No hepatosplenomegaly, normal bowel sounds, no guarding or rigidity. EXTREMITIES: No clubbing,and there is increased edema, no cyanosis, 2+ pulses and upper and lower extremities. MUSCULOSKELETAL: Muscle strength and tone normal. SPINE: No scoliosis or deformity SKIN: No rashes CENTRAL NERVOUS SYSTEM: Confused, but not agitated No focal - Labs CBC & Chem 7: 01/27/20 05:55 01/27/20 05:55 Labs: Abnormal Lab Results - Last 24 Hours (Table) 01/25/20 01/25/20 01/26/20 Range/Units 12:05 14:15 06:00 WBC (3.8-10.6) k/uL RBC (3.80-5.40) m/uL Hgb (11.4-16.0) gm/dL Hct (34.0-46.0) % RDW (11.5-15.5) % Plt Count (150-450) k/uL ABG pH (7.35-7.45) ABG pCO2 (35-45) mmHg ABG pO2 (83-108) mmHg ABG O2 Saturation (94-97) % Sodium (135-145) mmol/L Chloride (98-107) mmol/L BUN 137.0 H* 136.0 H* (9.0-27.0) mg/dL Creatinine (0.52-1.04) mg/dL Est GFR (CKD-EPI)AfAm (60.0-200.0) Est GFR (CKD-EPI)NonAf (60.0-200.0) BUN/Creatinine Ratio (12.00-20.00) Ratio Glucose 46 L* (70-110) mg/dL POC Glucose (mg/dL) (75-99) mg/dL Calcium (8.4-10.2) mg/dL Crossmatch See Detail 01/26/20 01/26/20 01/26/20 Range/Units 12:30 13:19 13:19 WBC 18.9 H (3.8-10.6) k/uL RBC 2.74 L (3.80-5.40) m/uL Hgb 8.6 L 8.6 L (11.4-16.0) gm/dL Hct 25.4 L (34.0-46.0) % RDW 16.0 H (11.5-15.5) % Plt Count 79 L (150-450) k/uL ABG pH (7.35-7.45) ABG pCO2 (35-45) mmHg ABG pO2 (83-108) mmHg ABG O2 Saturation (94-97) % Sodium (135-145) mmol/L Chloride 116 H (98-107) mmol/L BUN (9.0-27.0) mg/dL Creatinine 1.95 H (0.52-1.04) mg/dL Est GFR (CKD-EPI)AfAm (60.0-200.0) Est GFR (CKD-EPI)NonAf (60.0-200.0) BUN/Creatinine Ratio (12.00-20.00) Ratio Glucose 126 H (70-110) mg/dL POC Glucose (mg/dL) (75-99) mg/dL Calcium 7.4 L (8.4-10.2) mg/dL Crossmatch 01/26/20 01/26/20 01/26/20 Range/Units 13:46 14:03 14:28 WBC (3.8-10.6) k/uL RBC (3.80-5.40) m/uL Hgb (11.4-16.0) gm/dL Hct (34.0-46.0) % RDW (11.5-15.5) % Plt Count (150-450) k/uL ABG pH 7.49 H (7.35-7.45) ABG pCO2 28 L (35-45) mmHg ABG pO2 134 H (83-108) mmHg ABG O2 Saturation 99.6 H (94-97) % Sodium (135-145) mmol/L Chloride (98-107) mmol/L BUN (9.0-27.0) mg/dL Creatinine (0.52-1.04) mg/dL Est GFR (CKD-EPI)AfAm (60.0-200.0) Est GFR (CKD-EPI)NonAf (60.0-200.0) BUN/Creatinine Ratio (12.00-20.00) Ratio Glucose (70-110) mg/dL POC Glucose (mg/dL) 174 H 113 H (75-99) mg/dL Calcium (8.4-10.2) mg/dL Crossmatch 01/26/20 01/26/20 01/26/20 Range/Units 16:49 20:46 23:30 WBC (3.8-10.6) k/uL RBC (3.80-5.40) m/uL Hgb (11.4-16.0) gm/dL Hct (34.0-46.0) % RDW (11.5-15.5) % Plt Count (150-450) k/uL ABG pH (7.35-7.45) ABG pCO2 (35-45) mmHg ABG pO2 (83-108) mmHg ABG O2 Saturation (94-97) % Sodium (135-145) mmol/L Chloride (98-107) mmol/L BUN (9.0-27.0) mg/dL Creatinine (0.52-1.04) mg/dL Est GFR (CKD-EPI)AfAm (60.0-200.0) Est GFR (CKD-EPI)NonAf (60.0-200.0) BUN/Creatinine Ratio (12.00-20.00) Ratio Glucose (70-110) mg/dL POC Glucose (mg/dL) 195 H 141 H 171 H (75-99) mg/dL Calcium (8.4-10.2) mg/dL Crossmatch 01/27/20 01/27/20 01/27/20 Range/Units 05:55 05:55 07:08 WBC 15.8 H (3.8-10.6) k/uL RBC 2.49 L (3.80-5.40) m/uL Hgb 8.3 L (11.4-16.0) gm/dL Hct 23.8 L (34.0-46.0) % RDW 16.2 H (11.5-15.5) % Plt Count 76 L (150-450) k/uL ABG pH (7.35-7.45) ABG pCO2 (35-45) mmHg ABG pO2 (83-108) mmHg ABG O2 Saturation (94-97) % Sodium 148 H (135-145) mmol/L Chloride 114 H (98-107) mmol/L BUN 126.0 H* (9.0-27.0) mg/dL Creatinine 2.0 H (0.52-1.04) mg/dL Est GFR (CKD-EPI)AfAm 27.2 L (60.0-200.0) Est GFR (CKD-EPI)NonAf 23.5 L (60.0-200.0) BUN/Creatinine Ratio 63.00 H (12.00-20.00) Ratio Glucose (70-110) mg/dL POC Glucose (mg/dL) 106 H (75-99) mg/dL Calcium 7.4 L (8.4-10.2) mg/dL Crossmatch Assessment and Plan Plan: 1 Acute bilateral COVID 19 pneumonia, with secondary respiratory failure. The patient is currently on room air oxygen.She was on a combination of Decadron patient completed the course of Remdesivir and she also took convalescent plasma. The patient currently is on IV Solu-Medrol.the patient has recovered from the pneumonia. 2 Acute hypoxic respiratory failure,recovered 3 bacteremia sepsis secondary to Haemophilus influenza, likely of a pulmonary source and the patient is currently on Rocephin 2 g every 24 hours. The patient is hemodynamically stable. this was treated. 4 SELENE improving on top of the chronic kidney disease 5 Non anion gap meabolic acidosis, recovered 5 altered mental status /encephalopathy, likely metabolic in nature as the patient has Covid 19 related pneumonia in addition to septicemia , improving slowly 6 hypertension 7 hyperlipidemia 8 troponin leak with a preserved LV function. 9 pedal edema in all 4 extremities 10 dysphagia and the patient has oropharyngeal candidiasis and the patient is going to undergo effectively session today. 11 hyperchloremic hypernatremia Plan stop the IV Solu-Medrol and put the patient on prednisone burst taper starting with 30 mg a day to the Buck by 10 mg every 5 days keep the patient D5 water at the rate of 100 mL an hour , and atrophy water supplements through the NG was 200 mL every 6 hours Monitor renal function, creatinine continues to improve, and monitor the sodium level and the rest of the electrolytes, sodium level is still elevated Anticoagulation with Lovenox 40 mg subcu every 24 hours currently the patient is on room air oxygen continue Eraxis for oropharyngeal candidiasis PEG insertion was not successful and the patient will be started on enteral feeding for nutritional support. Physical therapy Aspiration precautions Levemir insulin Aggressive physical therapy We'll continue to follow.
--- NOTE | 2020-01-27 11:12 | P.PN ---
Subjective Progress Note Date: 01/27/20 CHIEF COMPLAINT: Covid HISTORY OF PRESENT ILLNESS: This is a 74-year-old female who presented to the hospital with hypoxia, elevated troponins and was found to have positive COVID pneumonia. Patient did require ICU care and had been on Airvo and now transitioned to nasal cannula. Patient is status post PEG tube placement. Yesterday patient did have bleeding around the PEG tube site. The bleeding has now resolved. Patient will be starting PEG tube feedings today. She is sitting up in bed. Afebrile. WBC 15.8 hemoglobin 8.3 sodium 148 BUN 126 creatinine 2.0 PHYSICAL EXAM: VITAL SIGNS: Reviewed. GENERAL: Well-developed in no acute distress. HEENT: No sclera icterus. Extraocular movements grossly intact. Moist buccal mucosa. Head is atraumatic, normocephalic. ABDOMEN: Soft. Nondistended. Nontender. PEG tube in place ASSESSMENT: 1. Moderate protein calorie malnutrition status post PEG tube placement 2. Acute hypoxemic respiratory failure secondary to Covid 19 pneumonia 3. Haemophilus influenza bacteremia likely related to pneumonia 4. Acute kidney injury followed by nephrology 5. Acute metabolic encephalopathy PLAN: -tube feedings to be started today per dietitian recommendations -Continue supportive care Physician Subassembly Assembler note has been reviewed by physician. Signing provider agrees with the documented findings, assessment, and plan of care. Objective - Vital Signs Vital signs: Vital Signs Temp 97.7 F 01/27/20 10:00 Pulse 61 01/27/20 10:00 Resp 17 01/27/20 10:00 BP 118/79 01/27/20 10:00 Pulse Ox 99 01/27/20 10:00 Intake & Output 01/26/20 01/27/20 01/27/20 18:59 06:59 18:59 Intake Total 310 Output Total 500 Balance -190 Weight 89.5 kg Intake: Blood Product 310 Rc As-1 Unit 310 [id number] Output: Urine 500 Other: Voiding Method Indwelling Catheter Indwelling Catheter Indwelling Catheter # Bowel Movements 1 - Labs CBC & Chem 7: 01/27/20 05:55 01/27/20 05:55 Labs: Abnormal Lab Results - Last 24 Hours (Table) 01/25/20 01/25/20 01/26/20 Range/Units 12:05 14:15 06:00 WBC (3.8-10.6) k/uL RBC (3.80-5.40) m/uL Hgb (11.4-16.0) gm/dL Hct (34.0-46.0) % RDW (11.5-15.5) % Plt Count (150-450) k/uL ABG pH (7.35-7.45) ABG pCO2 (35-45) mmHg ABG pO2 (83-108) mmHg ABG O2 Saturation (94-97) % Sodium (135-145) mmol/L Chloride (98-107) mmol/L BUN 137.0 H* 136.0 H* (9.0-27.0) mg/dL Creatinine (0.52-1.04) mg/dL Est GFR (CKD-EPI)AfAm (60.0-200.0) Est GFR (CKD-EPI)NonAf (60.0-200.0) BUN/Creatinine Ratio (12.00-20.00) Ratio Glucose 46 L* (70-110) mg/dL POC Glucose (mg/dL) (75-99) mg/dL Calcium (8.4-10.2) mg/dL Crossmatch See Detail 01/26/20 01/26/20 01/26/20 Range/Units 12:30 13:19 13:19 WBC 18.9 H (3.8-10.6) k/uL RBC 2.74 L (3.80-5.40) m/uL Hgb 8.6 L 8.6 L (11.4-16.0) gm/dL Hct 25.4 L (34.0-46.0) % RDW 16.0 H (11.5-15.5) % Plt Count 79 L (150-450) k/uL ABG pH (7.35-7.45) ABG pCO2 (35-45) mmHg ABG pO2 (83-108) mmHg ABG O2 Saturation (94-97) % Sodium (135-145) mmol/L Chloride 116 H (98-107) mmol/L BUN (9.0-27.0) mg/dL Creatinine 1.95 H (0.52-1.04) mg/dL Est GFR (CKD-EPI)AfAm (60.0-200.0) Est GFR (CKD-EPI)NonAf (60.0-200.0) BUN/Creatinine Ratio (12.00-20.00) Ratio Glucose 126 H (70-110) mg/dL POC Glucose (mg/dL) (75-99) mg/dL Calcium 7.4 L (8.4-10.2) mg/dL Crossmatch 01/26/20 01/26/20 01/26/20 Range/Units 13:46 14:03 14:28 WBC (3.8-10.6) k/uL RBC (3.80-5.40) m/uL Hgb (11.4-16.0) gm/dL Hct (34.0-46.0) % RDW (11.5-15.5) % Plt Count (150-450) k/uL ABG pH 7.49 H (7.35-7.45) ABG pCO2 28 L (35-45) mmHg ABG pO2 134 H (83-108) mmHg ABG O2 Saturation 99.6 H (94-97) % Sodium (135-145) mmol/L Chloride (98-107) mmol/L BUN (9.0-27.0) mg/dL Creatinine (0.52-1.04) mg/dL Est GFR (CKD-EPI)AfAm (60.0-200.0) Est GFR (CKD-EPI)NonAf (60.0-200.0) BUN/Creatinine Ratio (12.00-20.00) Ratio Glucose (70-110) mg/dL POC Glucose (mg/dL) 174 H 113 H (75-99) mg/dL Calcium (8.4-10.2) mg/dL Crossmatch 01/26/20 01/26/20 01/26/20 Range/Units 16:49 20:46 23:30 WBC (3.8-10.6) k/uL RBC (3.80-5.40) m/uL Hgb (11.4-16.0) gm/dL Hct (34.0-46.0) % RDW (11.5-15.5) % Plt Count (150-450) k/uL ABG pH (7.35-7.45) ABG pCO2 (35-45) mmHg ABG pO2 (83-108) mmHg ABG O2 Saturation (94-97) % Sodium (135-145) mmol/L Chloride (98-107) mmol/L BUN (9.0-27.0) mg/dL Creatinine (0.52-1.04) mg/dL Est GFR (CKD-EPI)AfAm (60.0-200.0) Est GFR (CKD-EPI)NonAf (60.0-200.0) BUN/Creatinine Ratio (12.00-20.00) Ratio Glucose (70-110) mg/dL POC Glucose (mg/dL) 195 H 141 H 171 H (75-99) mg/dL Calcium (8.4-10.2) mg/dL Crossmatch 01/27/20 01/27/20 01/27/20 Range/Units 05:55 05:55 07:08 WBC 15.8 H (3.8-10.6) k/uL RBC 2.49 L (3.80-5.40) m/uL Hgb 8.3 L (11.4-16.0) gm/dL Hct 23.8 L (34.0-46.0) % RDW 16.2 H (11.5-15.5) % Plt Count 76 L (150-450) k/uL ABG pH (7.35-7.45) ABG pCO2 (35-45) mmHg ABG pO2 (83-108) mmHg ABG O2 Saturation (94-97) % Sodium 148 H (135-145) mmol/L Chloride 114 H (98-107) mmol/L BUN 126.0 H* (9.0-27.0) mg/dL Creatinine 2.0 H (0.52-1.04) mg/dL Est GFR (CKD-EPI)AfAm 27.2 L (60.0-200.0) Est GFR (CKD-EPI)NonAf 23.5 L (60.0-200.0) BUN/Creatinine Ratio 63.00 H (12.00-20.00) Ratio Glucose (70-110) mg/dL POC Glucose (mg/dL) 106 H (75-99) mg/dL Calcium 7.4 L (8.4-10.2) mg/dL Crossmatch
[2020-01-27 11:43] LABS: Glucose,Whole Blood 109 mg/dL (75-99)
--- NOTE | 2020-01-27 12:52 | P.PN ---
Subjective Acute hypoxic respiratory failure: secondary to covid 19 pneumonia 74-year-old female is admitted for hypoxia elevated troponins found to have positive Covid. Patient was transferred from outside hospital. Patient at baseline apparently is awake and alert. Patient is oriented 1 at this time. Patient did have fever and shortness of breath because of which patient was sent in here. Patient has elevated urine creatinine of 2.5 baseline is not available but patient apparently has chronic kidney disease. Does follow with a property consultant as an outpatient. Patient is found to have mildly elevated troponins of 0.2-3. Patient denied any chest pain although patient is extremely poor historian because of her confusion and hearing problems. His blood cultures from the other hospital came back positive for gram-positive cocci unsure whether it's clusters sore repairs. Patient will be started on vancomycin infectious disease will be consulted may need tube be switched to daptomycin, considering her kidney function. 01/07/2020 Patient is presently on the eighth liters of oxygen although patient is not in respiratory distress whenever she doesn't wear this oxygen his sister AND saturation dropped down to 80%. Patient blood cultures are positive for coag is negative staph which is a contamination and medics will be discontinued. Repeat cultures are pending 01/08/2020 Patient progressively became dyspneic was transferred to intensive care unit patient was started on Rocephin and azithromycin for secondary bacterial pneumonia, IV recommended vancomycin as well. Patient had a central line placed.. Creatinine improved to 1.9. Patient is presently on Remdesivir date 3 along with Decadron, vitamin C, vitamin D and zinc 01/09/2020 Patient is bacteremic with Haemophilus influenza repeat blood cultures will be obtained and patient is on Rocephin patient is presently on 55 L of oxygen. Patient has severe toxic encephalopathy with tremors. Neurology evaluated the patient. 01/10/2020 Patient's tremors and shaking he is better patient continues to be on Pracedex. Bicarbonate drip was discontinued patient has hyperchloremia and hyper next anemia because of which patient will be switched to half-normal saline. 01/11/2020 Patient is also receiving metoprolol apart from a clonidine because of her tachycardia and hypertension patient presently doesn't have an NG tube patient is presently nothing by mouth. Patient is presently on 60 L of oxygen via able. 01/12/2020 Patient still remains on high oxygen about the 55 L. Patient repeat cultures for last 3 days with negative had Haemophilus influenza. Remains on Decadron. Patient has toxic metabolic encephalopathy. 01/13/2020 Patient remains on 45 L of oxygen still having fever highly elevated the inflammatory markers. Patient had an NG tube now and is receiving Glucerna. Chest x-ray from today showing peripheral infiltrates there is a downward trend and d-dimer. 01/14/2020 No significant change in her respiratory status. Patient is afebrile since yest erday morning. Inflammatory markers trended down. Patient remains on 45 L of oxygen 01/15/2020 Patient is awake alert. Currently on high flow oxygen on airvo. Complaints of generalized weakness and shortness of breath and cough. Chest x-ray showed stable chest with bilateral infiltrates and small left-sided pleural effusion. Patient is being continued on antibiotics in the form of ceftriaxone and antifungal Eraxis. Blood cultures grew haemophilus influenza and repeat cultures have been negative so far. Laboratory data showed WBC 22.1, hemoglobin 10.8 and platelets 157 absolute lymphocyte count 0.66 BUN 72 and creatinine 1.45 Elevated inflammatory markers. 01/23/2020 Patient is seen and evaluated in follow-up much more awake although fatigues easily. Patient is eating more per nursing staff and tolerating honey thickened diet at this time. Patient is maintaining oxygen saturations on 4 L via nasal cannula in the high 90s. Patient is a mouth breather as well oral mucosa is d ry. Patient is taking medications per nursing staff. BUN continues to be elevated and nephrology is following. Creatinine is 1.7. Magnesium elevated at 2.6, potassium is 4.1. Surgery following with the possibility of PEG tube placement and patient currently undergoing calorie counting. Multiple medical consultations following. PT/OT therapy attempted to work with the patient and patient continues to be a max assist and barely moving out of the bed. Case management and social work also following as patient will require an ECF for rehab stabilized and discharged. 01/24/2020 Patient is currently lying in the bed comfortable and unable to provide any history. patient does have poor oral intake. Patient has trouble swallowing. General surgery was consulted for possible PEG tube placement. Otherwise laboratory test showed renal function with creatinine of 1.9 and BUN 132 likely due to steroids. Pulmonary nephrology is following. 01/25/2020 Patient does have very poor oral intake. General surgery was consulted for PEG tube placement. Calorie count and increased oral intake was recommended. Otherwise patient hemoglobin level is 6.6 today. Will be transfused with 1 unit of PRBC and monitor H&H. Laboratory data showed sodium 149, potassium 3.8, BUN 137 creatinine 2.1 Patient is being treated D5 water. Nephrology is following. Arrest patient is on antifungals. ID is on board. 01/26/2020 Patient was having bleeding around the PEG tube site area. This is probably sec ondary to worsening kidney function and being on Lovenox with the worsening kidney function Lovenox E to excess bleeding or axillary this can urine patient was started on subcutaneous heparin as long as she doesn't bleed any more. Chest x-ray showing right-sided pleural effusion patient appears to have right upper lobe pneumonia patient appears to have acute on chronic hypercapnic respiratory failure. 01/27/2020 Patient bleeding from the PEG tube site resolved, patient doesn't have any more GI bleed patient the has a mild improvement makes up for Trotter commands doesn't verbalize. Patient is severely dehydrated patient is presently on D5 water patient is hyperchloremic and hyponatremic secondary to that. Nephrology evaluated the patient and patient will be continued on D5 water along with the Review of systems: Unable to obtain due to her clinical condition All inpatient medications were reviewed and appropriate changes in these medications as dictated in the interval history and assessment and plan. Objective - Vital Signs Vital signs: Vital Signs Temp 97.7 F 01/27/20 10:00 Pulse 61 01/27/20 10:00 Resp 17 01/27/20 10:00 BP 118/79 01/27/20 10:00 Pulse Ox 99 01/27/20 10:00 Intake & Output 01/26/20 01/27/20 01/27/20 18:59 06:59 18:59 Intake Total 310 Output Total 500 Balance -190 Weight 89.5 kg 89.5 kg Intake: Blood Product 310 Rc As-1 Unit 310 [id number] Output: Urine 500 Other: Voiding Method Indwelling Catheter Indwelling Catheter Indwelling Catheter # Bowel Movements 1 - Exam PHYSICAL EXAMINATION: GENERAL: The patient is drowsy unable to assess his orientation not agitated confused, not in any acute distress. Well developed, well nourished. HEENT: Pupils are round and equally reacting to light. EOMI. No scleral icterus. No conjunctival pallor. Normocephalic, atraumatic. No pharyngeal erythema. No thyromegaly. CARDIOVASCULAR: S1 and S2 present. No murmurs, rubs, or gallops. PULMONARY: Chest is clear to auscultation, no wheezing or crackles. ABDOMEN: Soft, nontender, nondistended, normoactive bowel sounds. No palpable organomegaly. MUSCULOSKELETAL: No joint swelling or deformity. EXTREMITIES: No cyanosis, clubbing, or pedal edema. NEUROLOGICAL: Able to assess SKIN: No rashes. - Labs CBC & Chem 7: 01/27/20 05:55 01/27/20 05:55 Labs: Abnormal Lab Results - Last 24 Hours (Table) 01/25/20 01/26/20 01/26/20 Range/Units 14:15 12:30 13:19 WBC 18.9 H (3.8-10.6) k/uL RBC 2.74 L (3.80-5.40) m/uL Hgb 8.6 L 8.6 L (11.4-16.0) gm/dL Hct 25.4 L (34.0-46.0) % RDW 16.0 H (11.5-15.5) % Plt Count 79 L (150-450) k/uL ABG pH (7.35-7.45) ABG pCO2 (35-45) mmHg ABG pO2 (83-108) mmHg ABG O2 Saturation (94-97) % Sodium (135-145) mmol/L Chloride (98-107) mmol/L BUN (9.0-27.0) mg/dL Creatinine (0.52-1.04) mg/dL Est GFR (CKD-EPI)AfAm (60.0-200.0) Est GFR (CKD-EPI)NonAf (60.0-200.0) BUN/Creatinine Ratio (12.00-20.00) Ratio Glucose (74-99) mg/dL POC Glucose (mg/dL) (75-99) mg/dL Calcium (8.4-10.2) mg/dL Crossmatch See Detail 01/26/20 01/26/20 01/26/20 Range/Units 13:19 13:46 14:03 WBC (3.8-10.6) k/uL RBC (3.80-5.40) m/uL Hgb (11.4-16.0) gm/dL Hct (34.0-46.0) % RDW (11.5-15.5) % Plt Count (150-450) k/uL ABG pH (7.35-7.45) ABG pCO2 (35-45) mmHg ABG pO2 (83-108) mmHg ABG O2 Saturation (94-97) % Sodium (135-145) mmol/L Chloride 116 H (98-107) mmol/L BUN (9.0-27.0) mg/dL Creatinine 1.95 H (0.52-1.04) mg/dL Est GFR (CKD-EPI)AfAm (60.0-200.0) Est GFR (CKD-EPI)NonAf (60.0-200.0) BUN/Creatinine Ratio (12.00-20.00) Ratio Glucose 126 H (74-99) mg/dL POC Glucose (mg/dL) 174 H 113 H (75-99) mg/dL Calcium 7.4 L (8.4-10.2) mg/dL Crossmatch 01/26/20 01/26/20 01/26/20 Range/Units 14:28 16:49 20:46 WBC (3.8-10.6) k/uL RBC (3.80-5.40) m/uL Hgb (11.4-16.0) gm/dL Hct (34.0-46.0) % RDW (11.5-15.5) % Plt Count (150-450) k/uL ABG pH 7.49 H (7.35-7.45) ABG pCO2 28 L (35-45) mmHg ABG pO2 134 H (83-108) mmHg ABG O2 Saturation 99.6 H (94-97) % Sodium (135-145) mmol/L Chloride (98-107) mmol/L BUN (9.0-27.0) mg/dL Creatinine (0.52-1.04) mg/dL Est GFR (CKD-EPI)AfAm (60.0-200.0) Est GFR (CKD-EPI)NonAf (60.0-200.0) BUN/Creatinine Ratio (12.00-20.00) Ratio Glucose (74-99) mg/dL POC Glucose (mg/dL) 195 H 141 H (75-99) mg/dL Calcium (8.4-10.2) mg/dL Crossmatch 01/26/20 01/27/20 01/27/20 Range/Units 23:30 05:55 05:55 WBC 15.8 H (3.8-10.6) k/uL RBC 2.49 L (3.80-5.40) m/uL Hgb 8.3 L (11.4-16.0) gm/dL Hct 23.8 L (34.0-46.0) % RDW 16.2 H (11.5-15.5) % Plt Count 76 L (150-450) k/uL ABG pH (7.35-7.45) ABG pCO2 (35-45) mmHg ABG pO2 (83-108) mmHg ABG O2 Saturation (94-97) % Sodium 148 H (135-145) mmol/L Chloride 114 H (98-107) mmol/L BUN 126.0 H* (9.0-27.0) mg/dL Creatinine 2.0 H (0.52-1.04) mg/dL Est GFR (CKD-EPI)AfAm 27.2 L (60.0-200.0) Est GFR (CKD-EPI)NonAf 23.5 L (60.0-200.0) BUN/Creatinine Ratio 63.00 H (12.00-20.00) Ratio Glucose (74-99) mg/dL POC Glucose (mg/dL) 171 H (75-99) mg/dL Calcium 7.4 L (8.4-10.2) mg/dL Crossmatch 01/27/20 01/27/20 Range/Units 07:08 11:41 WBC (3.8-10.6) k/uL RBC (3.80-5.40) m/uL Hgb (11.4-16.0) gm/dL Hct (34.0-46.0) % RDW (11.5-15.5) % Plt Count (150-450) k/uL ABG pH (7.35-7.45) ABG pCO2 (35-45) mmHg ABG pO2 (83-108) mmHg ABG O2 Saturation (94-97) % Sodium (135-145) mmol/L Chloride (98-107) mmol/L BUN (9.0-27.0) mg/dL Creatinine (0.52-1.04) mg/dL Est GFR (CKD-EPI)AfAm (60.0-200.0) Est GFR (CKD-EPI)NonAf (60.0-200.0) BUN/Creatinine Ratio (12.00-20.00) Ratio Glucose (74-99) mg/dL POC Glucose (mg/dL) 106 H 109 H (75-99) mg/dL Calcium (8.4-10.2) mg/dL Crossmatch Assessment and Plan Plan: -Acute hypoxic respiratory failure: secondary to covid 19 pneumonia. -secondary bacterial pneumonia, with Haemophilus influenza -bacteremia with Haemophilus influenza -An episode of GI bleed along with the PEG tube site bleeding: Secondary to Lovenox and renal failure Lovenox was discontinued and improved -Toxic encephalopathy, altered mental status: Secondary to infection, patient also has met [place] encephalopathy from mild acute abnormalities -Elevated troponin secondary to infection and renal failure -Acute kidney injury secondary to infection patient does have chronic kidney disease unable to stage chronic kidney disease as baseline is not known. -Hypernatremia due to dehydration volume depletion. D5 water and patient will also be resumed on free water flushes via PEG tube -Hypertension -Hyperlipidemia -Possible myoclonus: Secondary to encephalopathy -DVT prophylaxis with heparin Patient's prognosis is extremely poor clinical condition is guarded
[2020-01-27 16:47] LABS: Glucose,Whole Blood 160 mg/dL (75-99)
--- NOTE | 2020-01-27 17:13 | PN ---
PROGRESS NOTE Patient is seen for followup for acute kidney injury. Renal function has been stable with serum creatinine staying at about 1.9-2 mg/dL. Patient's serum sodium had decreased to 141 yesterday; however, it is up to 148 today. She does have underlying COVID-19 infection. Patient had a PEG tube placed and will be starting tube feedings. She does not communicate much. PHYSICAL EXAMINATION: Today blood pressure was 118/79, heart rate 61 per minute, she is afebrile. Examination of lower extremities shows edema 1+ bilaterally. Chronic skin changes noted. Abdomen is soft, nontender. Some edema is noted in the upper extremities as well bilaterally about 1+. 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 Patient is not moving her extremities much and she does not carry on a conversation. LABS: Show sodium 148, potassium 3.5, chloride 114, CO2 is 23, BUN 126, creatinine 2.0. ASSESSMENT: 1. Hypernatremia associated with free water deficit maintained on D5W which I will continue and we will add free water down the feeding tube. 2. Acute kidney injury ATN, currently stable. Serum creatinine staying at 1.9-2 mg/dL. Etiology underlying COVID-19 infection and a component of prerenal azotemia as well. 3. COVID-9 pneumonia, maintained on steroids and Remdesivir. 4. Haemophilus influenzae bacteremia, status post antibiotics. 5. Volume overload, seems to have improved currently. 6. Chronic kidney disease with unknown baseline creatinine. Serum creatinine has been fluctuating between 2 and 1.4 mg/dL this admission. 7. Disproportionately elevated BUN associated with use of steroids. This is currently improving as well. PLAN: Continue with D5W, add free water down the feeding tube to 100 mL q.6 hours. MMODL / IJN: [id number] /
--- NOTE | 2020-01-27 19:29 | P.PN ---
Subjective Progress Note Date: 01/27/20 Patient was seen for a follow-up. Patient is now on the regular floor in room #454. Patient is much more responsive, opens her eyes, makes eye contact, tries to follow some commands. Still moderately encephalopathic, although much better. Patient had a swallow study completed, in which there is some delay in initiation of swallow on imaging. NG tube in place. Randy aspiration was identified during nectar thick swallowing. Her chest x-ray showed improving bilateral lung infiltrates. Objective - Vital Signs Vital signs: Vital Signs Temp 98.2 F 01/27/20 18:00 Pulse 66 01/27/20 18:00 Resp 18 01/27/20 18:00 BP 112/74 01/27/20 18:00 Pulse Ox 99 01/27/20 18:00 Intake & Output 01/27/20 01/27/20 01/28/20 06:59 18:59 06:59 Intake Total 310 Output Total 500 Balance -190 Weight 89.5 kg 89.5 kg Intake: Blood Product 310 Rc As-1 Unit 310 [id number] Output: Urine 500 Other: Voiding Method Indwelling Catheter Indwelling Catheter - Exam Patient is much more calm and comfortable. Patient smiles almost constantly, speaks with hardly air comes out and difficult to understand. Mild to moderately encephalopathic. She stays quiet. May speak 1 or 2 words. Patient had undergone PEG placement yesterday On cranial examination pupils are equal, round and reacting, extraocular muscles are intact. Visual kaiser could not be tested. 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 She has bilateral flail foot. She has moderate to significant peripheral edema. Tone is decreased in the feet. - Labs CBC & Chem 7: 01/28/20 10:30 01/28/20 06:17 Labs: Abnormal Lab Results - Last 24 Hours (Table) 01/25/20 01/26/20 01/26/20 Range/Units 14:15 20:46 23:30 WBC (3.8-10.6) k/uL RBC (3.80-5.40) m/uL Hgb (11.4-16.0) gm/dL Hct (34.0-46.0) % RDW (11.5-15.5) % Plt Count (150-450) k/uL Sodium (135-145) mmol/L Chloride (96-109) mmol/L BUN (9.0-27.0) mg/dL Creatinine (0.6-1.5) mg/dL Est GFR (CKD-EPI)AfAm (60.0-200.0) Est GFR (CKD-EPI)NonAf (60.0-200.0) BUN/Creatinine Ratio (12.00-20.00) Ratio POC Glucose (mg/dL) 141 H 171 H (75-99) mg/dL Calcium (8.7-10.3) mg/dL Crossmatch See Detail 01/27/20 01/27/20 01/27/20 Range/Units 05:55 05:55 07:08 WBC 15.8 H (3.8-10.6) k/uL RBC 2.49 L (3.80-5.40) m/uL Hgb 8.3 L (11.4-16.0) gm/dL Hct 23.8 L (34.0-46.0) % RDW 16.2 H (11.5-15.5) % Plt Count 76 L (150-450) k/uL Sodium 148 H (135-145) mmol/L Chloride 114 H (96-109) mmol/L BUN 126.0 H* (9.0-27.0) mg/dL Creatinine 2.0 H (0.6-1.5) mg/dL Est GFR (CKD-EPI)AfAm 27.2 L (60.0-200.0) Est GFR (CKD-EPI)NonAf 23.5 L (60.0-200.0) BUN/Creatinine Ratio 63.00 H (12.00-20.00) Ratio POC Glucose (mg/dL) 106 H (75-99) mg/dL Calcium 7.4 L (8.7-10.3) mg/dL Crossmatch 01/27/20 01/27/20 Range/Units 11:41 16:45 WBC (3.8-10.6) k/uL RBC (3.80-5.40) m/uL Hgb (11.4-16.0) gm/dL Hct (34.0-46.0) % RDW (11.5-15.5) % Plt Count (150-450) k/uL Sodium (135-145) mmol/L Chloride (96-109) mmol/L BUN (9.0-27.0) mg/dL Creatinine (0.6-1.5) mg/dL Est GFR (CKD-EPI)AfAm (60.0-200.0) Est GFR (CKD-EPI)NonAf (60.0-200.0) BUN/Creatinine Ratio (12.00-20.00) Ratio POC Glucose (mg/dL) 109 H 160 H (75-99) mg/dL Calcium (8.7-10.3) mg/dL Crossmatch Assessment and Plan Assessment: * Altered mental status, likely due to toxic metabolic encephalopathy. Patient has acute renal insufficiency, status post abnormal liver functions on top of severe bilateral pneumonia. Her encephalopathy has improved. * Acute bilateral COVID-19 pneumonia. Patient has received Remdesvir on Decadron, vitamin C, vitamin D and zinc. * Status post Bacteremia with Haemophilus influenza, treated with antibiotics. * Acute renal injury to ATN, stable. 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 * Anemia Plan: * Patient's toxic metabolic encephalopathy has improved. Her underlying respiratory and other metabolic and infectious conditions have improved. Patient still has renal insufficiency, nephrology following. * Treatment of various metabolic conditions/medical conditions as per IM and critical care. * EEG was performed on 01/13/2020, which revealed background slowing of moderate to severe degree. No epileptiform activity was seen. * Your medical management. 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 Patient will need very prolonged rehabilitation. * Neurology will sign off. Please reconsult neurology if any other concerns.
[2020-01-27 20:04] LABS: Glucose,Whole Blood 241 mg/dL (75-99)
[2020-01-27] MEDS: INSULIN DETEMIR (LEVEMIR) 100 UNIT/ML SYR SQ SCH (22:43)
--- NOTE | 2020-01-28 00:20 | PN ---
PROGRESS NOTE DATE OF SERVICE: 01/27/2020 REASON FOR FOLLOWUP: Elevated white count and possible oropharyngeal candidiasis. The patient remains to be afebrile. The patient is hemodynamically stable, not on pressor support. Currently on room sating 97%. She remains to be lethargic and unable to provide any history. No vomiting or diarrhea reported. PHYSICAL EXAMINATION: Blood pressure 122/70 with a pulse of 81, temperature of 97.5. She is 97% on room air. General description: The patient is an elderly female lying in bed in no distress. Respiratory system: Unlabored breathing, decreased breath sounds in the bases, with no wheeze. Heart S1, S2. Regular rate and rhythm. Abdomen soft, no tenderness. LABS: Hemoglobin 8.3, white count 15.8, BUN 126, creatinine 2.0. DIAGNOSTIC IMPRESSION AND PLAN: 1. Patient with Haemophilus influenzae bacteremia secondary to pneumonia has been adequately treated. 2. Patient now with elevated white count, possibly oropharyngeal candidiasis, however the patient did have a left subclavian central line that needs to be monitored clavipectorally to rule out underlying sepsis. 3. Continue with Eraxis and monitor clinical course closely. MMODL / IJN: [id number] /
[2020-01-28] MEDS: DEXTROSE 5% IN WATER 1,000 ML IV SCH ×2 (00:43→18:50)
[2020-01-28 07:01] LABS: Glucose,Whole Blood 176 mg/dL (75-99)
[2020-01-28] MEDS: ASCORBIC ACID 500 MG TAB PO SCH ×2 (08:25→20:50)
[2020-01-28] MEDS: SENNOSIDES 8.6 MG TAB PO SCH ×2 (08:25→20:50)
[2020-01-28] MEDS: METOPROLOL TARTRATE 50 MG TAB PO SCH ×2 (08:25→20:50)
[2020-01-28] MEDS: ASPIRIN 81 MG PO SCH (08:25)
[2020-01-28] MEDS: ZINC SULFATE 220 MG CAP PO SCH (08:26)
[2020-01-28] MEDS: INSULIN ASPART (NovoLOG) 100 UNIT/ML VIAL SQ SCH ×4 (08:26→20:51)
[2020-01-28] MEDS: CHOLECALCIFEROL 1,000 UNIT TAB PO SCH (08:26)
[2020-01-28] MEDS: LACTATED RINGERS 1,000 ML IV SCH ×2 (08:33→23:42)
--- NOTE | 2020-01-28 09:47 | P.PN ---
Subjective Progress Note Date: 01/28/20 The patient is being seen in follow-up. Currently is on the medical floor. She is on oxygen at room air. Her chest x-ray is gradually cleared up. She has oropharyngeal candidiasis and the patient is currently on Eraxis. The patient is going to undergo a PEG tube insertion for enteral feeding and nutritional support. She is sleepy. She is still lethargic. No agitation. Does have some hypochloremic hyponatremia and the sodium level is up. Her blood sugar was lower earlier this morning and this was completed. She continues to have some edema in all 4 extremities and she continues to have a triple-lumen cath in her left subclavian. She is on room air oxygen for now. on today's evaluation of 01/27/2020, the patient is on 2 L of oxygen by nasal cannula. She is calm and comfortable. He is around 9900%. She remains weak and lethargic. She is still receiving Eraxis for esophageal candidiasis. The patient was having dysphagia. Patient underwent a PEG tube insertion yesterday and the procedure was successful.her sodium level is up to 149. The patient is currently on D5 water running at 100 mL an hour. She continues to have edema in lower extremity. Pablo catheter in place. The catheter is also in place. Enterofeeding may be started today.The patient was treated for a covid related pneumonia and septic shock secondary to Haemophilus influenza. On 01/28/2020, I'm seeing the patient for a follow-up. The patient is currently on room air oxygen. She is extremely weak. She is able to communicate. She is still in answering questions. She is becoming gradually more appropriate. She is on room air oxygen. No signs of any respiratory distress. PEG tube feeding was out of yesterday. She is also getting free water through the PEG tube. She is able to tolerate the feeding without any major difficulties. No nausea. No vomiting. No emesis. She is still on Eraxis for esophageal candidiasis. She is on D5 water which is running at 100 mL an hour. Follow-up electrodes are still pending from today. Objective - Vital Signs Vital signs: Vital Signs Temp 98.0 F 01/28/20 05:40 Pulse 71 01/28/20 05:40 Resp 17 01/28/20 08:00 BP 110/77 01/28/20 05:40 Pulse Ox 100 12/09/20 05:40 Intake & Output 01/27/20 01/28/20 01/28/20 18:59 06:59 18:59 Output Total 275 Balance -275 Weight 89.5 kg 90 kg Output: Urine 275 Uretheral (Pablo) 275 Other: Voiding Method Indwelling Catheter Indwelling Catheter Indwelling Catheter - Exam GENERAL EXAM: Alert, confused, but not agitated, 75-year-old white female, on room air oxygen comfortable in no apparent distress.the patient doesn't talk much. She will occasionally states few words. Furthermore, on today's evaluation the patient was found to be more communicative and she is following simple commands and she is raising her arms above her body. HEAD: Normocephalic/atraumatic. EYES: Normal reaction of pupils, equal size. Conjunctiva pink, sclera white. NOSE: Clear with pink turbinates. NG-tube has been removed THROAT: No erythema or exudates. NECK: No masses, no JVD, no thyroid enlargement, no adenopathy. CHEST: No chest wall deformity. Symmetrical expansion. LUNGS: Equal air entry with no crackles, wheeze, rhonchi or dullness. CVS: Regular rate and rhythm, normal S1 and S2, no gallops, no murmurs, no rubs ABDOMEN: Soft, nontender. No hepatosplenomegaly, normal bowel sounds, no guarding or rigidity. EXTREMITIES: No clubbing,and there is increased edema, no cyanosis, 2+ pulses and upper and lower extremities. MUSCULOSKELETAL: Global weakness in all 4 extremities and the extremities are quite edematous at this point in time. SPINE: No scoliosis or deformity SKIN: No rashes CENTRAL NERVOUS SYSTEM: No confusion on today's evaluation. The patient is able to communicate. She was aware of the year. - Labs CBC & Chem 7: 01/27/20 05:55 01/27/20 05:55 Labs: Abnormal Lab Results - Last 24 Hours (Table) 01/27/20 01/27/20 01/27/20 Range/Units 05:55 11:41 16:45 Sodium 148 H (135-145) mmol/L Chloride 114 H (96-109) mmol/L BUN 126.0 H* (9.0-27.0) mg/dL Creatinine 2.0 H (0.6-1.5) mg/dL Est GFR (CKD-EPI)AfAm 27.2 L (60.0-200.0) Est GFR (CKD-EPI)NonAf 23.5 L (60.0-200.0) BUN/Creatinine Ratio 63.00 H (12.00-20.00) Ratio POC Glucose (mg/dL) 109 H 160 H (75-99) mg/dL Calcium 7.4 L (8.7-10.3) mg/dL 01/27/20 01/28/20 Range/Units 20:03 07:00 Sodium (135-145) mmol/L Chloride (96-109) mmol/L BUN (9.0-27.0) mg/dL Creatinine (0.6-1.5) mg/dL Est GFR (CKD-EPI)AfAm (60.0-200.0) Est GFR (CKD-EPI)NonAf (60.0-200.0) BUN/Creatinine Ratio (12.00-20.00) Ratio POC Glucose (mg/dL) 241 H 176 H (75-99) mg/dL Calcium (8.7-10.3) mg/dL Assessment and Plan Plan: 1 Acute bilateral COVID 19 pneumonia, with secondary respiratory failure. The patient is currently on room air oxygen.She was on a combination of Decadron patient completed the course of Remdesivir and she also took convalescent plasma. The patient currently is on IV Solu-Medrol.the patient has recovered from the pneumonia. Currently she is on room air oxygen. We found that the patient was pulse oxing 86% and will put her back on 2 L of oxygen by nasal cannula. 2 Acute hypoxic respiratory failure,recovered 3 bacteremia sepsis secondary to Haemophilus influenza, likely of a pulmonary source and the patient is currently on Rocephin 2 g every 24 hours. The patient is hemodynamically stable. this was treated. 4 SELENE improving on top of the chronic kidney disease 5 Non anion gap meabolic acidosis, recovered 5 altered mental status /encephalopathy, likely metabolic in nature as the pat ient has Covid 19 related pneumonia in addition to septicemia , improving slowly 6 hypertension 7 hyperlipidemia 8 troponin leak with a preserved LV function. 9 pedal edema in all 4 extremities 10 dysphagia and the patient has oropharyngeal candidiasis and the patient is going to undergo effectively session today. 11 hyperchloremic hypernatremia, currently on free water. Plan Continue prednisone burst taper starting with 30 mg a day to the Buck by 10 mg every 5 days keep the patient D5 water at the rate of 100 mL an hour , and atrophy water supplements through the NG was 200 mL every 6 hours Awaiting follow-up electrolytes Porsha liters per minute nasal cannula Anticoagulation with Lovenox 40 mg subcu every 24 hours 7 spirometer continue Eraxis for oropharyngeal candidiasis PEG insertion was successful and the patient on enteral feeding for nutritional support. Physical therapy Aspiration precautions Levemir insulin Aggressive physical therapy We'll continue to follow.
[2020-01-28] MEDS: LIDOCAINE 5% PATCH TOPICAL SCH (10:22)
[2020-01-28 11:29] LABS: Anion Gap 6.9 mmol/L (4.00-12.00); BUN/Creat Ratio 62.11 Ratio (12.00-20.00); Carbon Dioxide 24.1 mmol/L (21.6-31.8); Potassium 3.5 mmol/L (3.5-5.5)
[2020-01-28 11:32] LABS: Glucose,Whole Blood 165 mg/dL (75-99)
--- NOTE | 2020-01-28 11:58 | P.PN ---
Subjective Acute hypoxic respiratory failure: secondary to covid 19 pneumonia 74-year-old female is admitted for hypoxia elevated troponins found to have positive Covid. Patient was transferred from outside hospital. Patient at baseline apparently is awake and alert. Patient is oriented 1 at this time. Patient did have fever and shortness of breath because of which patient was sent in here. Patient has elevated urine creatinine of 2.5 baseline is not available but patient apparently has chronic kidney disease. Does follow with a food packer as an outpatient. Patient is found to have mildly elevated troponins of 0.2-3. Patient denied any chest pain although patient is extremely poor historian because of her confusion and hearing problems. His blood cultures from the other hospital came back positive for gram-positive cocci unsure whether it's clusters sore repairs. Patient will be started on vancomycin infectious disease will be consulted may need tube be switched to daptomycin, considering her kidney function. 01/07/2020 Patient is presently on the eighth liters of oxygen although patient is not in respiratory distress whenever she doesn't wear this oxygen his sister AND saturation dropped down to 80%. Patient blood cultures are positive for coag is negative staph which is a contamination and medics will be discontinued. Repeat cultures are pending 01/08/2020 Patient progressively became dyspneic was transferred to intensive care unit patient was started on Rocephin and azithromycin for secondary bacterial pneumonia, IV recommended vancomycin as well. Patient had a central line placed.. Creatinine improved to 1.9. Patient is presently on Remdesivir date 3 along with Decadron, vitamin C, vitamin D and zinc 01/09/2020 Patient is bacteremic with Haemophilus influenza repeat blood cultures will be obtained and patient is on Rocephin patient is presently on 55 L of oxygen. Patient has severe toxic encephalopathy with tremors. Neurology evaluated the patient. 01/10/2020 Patient's tremors and shaking he is better patient continues to be on Pracedex. Bicarbonate drip was discontinued patient has hyperchloremia and hyper next anemia because of which patient will be switched to half-normal saline. 01/11/2020 Patient is also receiving metoprolol apart from a clonidine because of her tachycardia and hypertension patient presently doesn't have an NG tube patient is presently nothing by mouth. Patient is presently on 60 L of oxygen via able. 01/12/2020 Patient still remains on high oxygen about the 55 L. Patient repeat cultures for last 3 days with negative had Haemophilus influenza. Remains on Decadron. Patient has toxic metabolic encephalopathy. 01/13/2020 Patient remains on 45 L of oxygen still having fever highly elevated the inflammatory markers. Patient had an NG tube now and is receiving Glucerna. Chest x-ray from today showing peripheral infiltrates there is a downward trend and d-dimer. 01/14/2020 No significant change in her respiratory status. Patient is afebrile since yest erday morning. Inflammatory markers trended down. Patient remains on 45 L of oxygen 01/15/2020 Patient is awake alert. Currently on high flow oxygen on airvo. Complaints of generalized weakness and shortness of breath and cough. Chest x-ray showed stable chest with bilateral infiltrates and small left-sided pleural effusion. Patient is being continued on antibiotics in the form of ceftriaxone and antifungal Eraxis. Blood cultures grew haemophilus influenza and repeat cultures have been negative so far. Laboratory data showed WBC 22.1, hemoglobin 10.8 and platelets 157 absolute lymphocyte count 0.66 BUN 72 and creatinine 1.45 Elevated inflammatory markers. 01/23/2020 Patient is seen and evaluated in follow-up much more awake although fatigues easily. Patient is eating more per nursing staff and tolerating honey thickened diet at this time. Patient is maintaining oxygen saturations on 4 L via nasal cannula in the high 90s. Patient is a mouth breather as well oral mucosa is d ry. Patient is taking medications per nursing staff. BUN continues to be elevated and nephrology is following. Creatinine is 1.7. Magnesium elevated at 2.6, potassium is 4.1. Surgery following with the possibility of PEG tube placement and patient currently undergoing calorie counting. Multiple medical consultations following. PT/OT therapy attempted to work with the patient and patient continues to be a max assist and barely moving out of the bed. Case management and social work also following as patient will require an ECF for rehab stabilized and discharged. 01/24/2020 Patient is currently lying in the bed comfortable and unable to provide any history. patient does have poor oral intake. Patient has trouble swallowing. General surgery was consulted for possible PEG tube placement. Otherwise laboratory test showed renal function with creatinine of 1.9 and BUN 132 likely due to steroids. Pulmonary nephrology is following. 01/25/2020 Patient does have very poor oral intake. General surgery was consulted for PEG tube placement. Calorie count and increased oral intake was recommended. Otherwise patient hemoglobin level is 6.6 today. Will be transfused with 1 unit of PRBC and monitor H&H. Laboratory data showed sodium 149, potassium 3.8, BUN 137 creatinine 2.1 Patient is being treated D5 water. Nephrology is following. Arrest patient is on antifungals. ID is on board. 01/26/2020 Patient was having bleeding around the PEG tube site area. This is probably sec ondary to worsening kidney function and being on Lovenox with the worsening kidney function Lovenox E to excess bleeding or axillary this can urine patient was started on subcutaneous heparin as long as she doesn't bleed any more. Chest x-ray showing right-sided pleural effusion patient appears to have right upper lobe pneumonia patient appears to have acute on chronic hypercapnic respiratory failure. 01/27/2020 Patient bleeding from the PEG tube site resolved, patient doesn't have any more GI bleed patient the has a mild improvement makes up for Trotter commands doesn't verbalize. Patient is severely dehydrated patient is presently on D5 water patient is hyperchloremic and hyponatremic secondary to that. Nephrology evaluated the patient and patient will be continued on D5 water along with the 01/28/2020 Patient is tolerating PEG tube feedings. Patient is more awake looks much ceasar r was apparently talking to family members but did not verbalize anything to me.Physical therapy and occupational therapy will be consulted. Patient remains on D5 water with significant improvement in sodium chloride and acidosis. Ulcerative discharged to subacute rehabitation a day to patient has a low-grade temperature of 99.7 concern is central line infection blood cultures will be obtained since this is only line and she has central and is not being discontinued will obtain 1 peripheral blood culture and one culture from the central line. White blood cell count is coming down will repeat CBC and a BMP for tomorrow Review of systems: Unable to obtain due to her clinical condition All inpatient medications were reviewed and appropriate changes in these medications as dictated in the interval history and assessment and plan. Objective - Vital Signs Vital signs: Vital Signs Temp 99.7 F H 01/28/20 10:20 Pulse 62 01/28/20 10:20 Resp 24 01/28/20 10:20 BP 118/63 01/28/20 10:20 Pulse Ox 100 01/28/20 10:20 Intake & Output 01/27/20 01/28/2020 18:59 06:59 18:59 Output Total 275 Balance -275 Weight 89.5 kg 90 kg Output: Urine 275 Uretheral (Pablo) 275 Other: Voiding Method Indwelling Catheter Indwelling Catheter Indwelling Catheter - Exam PHYSICAL EXAMINATION: GENERAL: The patient is alert and still nonverbal, not in any acute distress. Well developed, well nourished. HEENT: Pupils are round and equally reacting to light. EOMI. No scleral icterus. No conjunctival pallor. Normocephalic, atraumatic. No pharyngeal erythema. No thyromegaly. CARDIOVASCULAR: S1 and S2 present. No murmurs, rubs, or gallops. PULMONARY: Chest is clear to auscultation, no wheezing or crackles. ABDOMEN: Soft, nontender, nondistended, normoactive bowel sounds. No palpable organomegaly. MUSCULOSKELETAL: No joint swelling or deformity. EXTREMITIES: No cyanosis, clubbing, or pedal edema. NEUROLOGICAL: Doesn't appear to have any focal deficits SKIN: No rashes. - Labs CBC & Chem 7: 01/27/20 05:55 01/28/20 06:17 Labs: Abnormal Lab Results - Last 24 Hours (Table) 01/27/20 01/27/20 01/28/20 Range/Units 16:45 20:03 06:17 BUN 118.0 H* (9.0-27.0) mg/dL Creatinine 1.9 H (0.6-1.5) mg/dL Est GFR (CKD-EPI)AfAm 29.0 L (60.0-200.0) Est GFR (CKD-EPI)NonAf 25.0 L (60.0-200.0) BUN/Creatinine Ratio 62.11 H (12.00-20.00) Ratio Glucose 157 H (70-110) mg/dL POC Glucose (mg/dL) 160 H 241 H (75-99) mg/dL Calcium 7.0 L (8.7-10.3) mg/dL 01/28/20 01/28/20 Range/Units 07:00 11:31 BUN (9.0-27.0) mg/dL Creatinine (0.6-1.5) mg/dL Est GFR (CKD-EPI)AfAm (60.0-200.0) Est GFR (CKD-EPI)NonAf (60.0-200.0) BUN/Creatinine Ratio (12.00-20.00) Ratio Glucose (70-110) mg/dL POC Glucose (mg/dL) 176 H 165 H (75-99) mg/dL Calcium (8.7-10.3) mg/dL Assessment and Plan Plan: -Acute hypoxic respiratory failure: secondary to covid 19 pneumonia. Improved patient is saturating well at this time -secondary bacterial pneumonia, with Haemophilus influenza -bacteremia with Haemophilus influenza completed antibiotic therapy. Patient is also on antifungal. Patient is being followed by infectious disease. -Fever: Low-grade concern for central line infection blood cultures will be obtained as mentioned above -An episode of GI bleed along with the PEG tube site bleeding: Secondary to Lovenox and renal failure Lovenox patient will be started on subcutaneous heparin -Toxic encephalopathy, altered mental status: Secondary to infection, patient also has met [place] encephalopathy from mild acute abnormalities -Elevated troponin secondary to infection and renal failure -Acute kidney injury secondary to infection patient does have chronic kidney disease unable to stage chronic kidney disease as baseline is not known. -Hypernatremia due to dehydration volume depletion. D5 water and patient will also be resumed on free water flushes via PEG tube -Hypertension -Hyperlipidemia -Possible myoclonus: Secondary to encephalopathy, resolved at this time. -DVT prophylaxis with heparin Patient's prognosis is extremely poor clinical condition is guarded
[2020-01-28 12:19] LABS: Anisocytosis Slight; HCT 21.6 % (34.0-46.0); HGB 7.1 gm/dL (11.4-16.0); MCH 32.2 pg (25.0-35.0); MCV 97.6 fL (80.0-100.0); Macrocytosis Slight; Mean Platelet Volume 10.8; RBC 2.21 m/uL (3.80-5.40); RDW 18.2 % (11.5-15.5); WBC 10.7 k/uL (3.8-10.6)
[2020-01-28 12:24] LABS: Platelet Count 81 k/uL (150-450)
--- NOTE | 2020-01-28 13:48 | P.PN ---
Subjective Progress Note Date: 01/28/20 CHIEF COMPLAINT: Covid HISTORY OF PRESENT ILLNESS: This is a 74-year-old female who presented to the hospital with hypoxia, elevated troponins and was found to have positive COVID pneumonia. Patient did require ICU care and had been on Airvo and now transitioned to nasal cannula. Patient is status post PEG tube placement. Patient is tolerating tube feedings. She's had no further bleeding from PEG tube site. Afebrile. WBC is 10.7 hemoglobin is 7.1 platelets 81 PHYSICAL EXAM: VITAL SIGNS: Reviewed. GENERAL: Well-developed in no acute distress. Pale in color HEENT: No sclera icterus. Extraocular movements grossly intact. Moist buccal mucosa. Head is atraumatic, normocephalic. ABDOMEN: Soft. Nondistended. Nontender. PEG tube in place ASSESSMENT: 1. Moderate protein calorie malnutrition status post PEG tube placement 2. Acute hypoxemic respiratory failure secondary to Covid 19 pneumonia 3. Haemophilus influenza bacteremia likely related to pneumonia 4. Acute kidney injury followed by nephrology 5. Acute metabolic encephalopathy 6. Bleeding from PEG tube site resolved 7. Normocytic Anemia. No active bleeding. Anemia likely multifactorial due to acute illness, malnutrition, bleeding from PEG tube site and underlying chronic kidney disease PLAN: -Continue tube feedings -Continue supportive care -Repeat CBC in a.m. Physician Motorcycle Maker note has been reviewed by physician. Signing provider agrees with the documented findings, assessment, and plan of care. Objective - Vital Signs Vital signs: Vital Signs Temp 99.7 F H 01/28/20 10:20 Pulse 62 01/28/20 10:20 Resp 24 01/28/20 10:20 BP 118/63 01/28/20 10:20 Pulse Ox 100 01/28/20 10:20 Intake & Output 01/27/20 01/28/20 01/28/20 18:59 06:59 18:59 Output Total 275 Balance -275 Weight 89.5 kg 90 kg Output: Urine 275 Uretheral (Pablo) 275 Other: Voiding Method Indwelling Catheter Indwelling Catheter Indwelling Catheter - Labs CBC & Chem 7: 01/28/20 10:30 01/28/20 06:17 Labs: Abnormal Lab Results - Last 24 Hours (Table) 01/27/20 01/27/20 01/28/20 Range/Units 16:45 20:03 06:17 WBC (3.8-10.6) k/uL RBC (3.80-5.40) m/uL Hgb (11.4-16.0) gm/dL Hct (34.0-46.0) % RDW (11.5-15.5) % Plt Count (150-450) k/uL BUN 118.0 H* (9.0-27.0) mg/dL Creatinine 1.9 H (0.6-1.5) mg/dL Est GFR (CKD-EPI)AfAm 29.0 L (60.0-200.0) Est GFR (CKD-EPI)NonAf 25.0 L (60.0-200.0) BUN/Creatinine Ratio 62.11 H (12.00-20.00) Ratio Glucose 157 H (70-110) mg/dL POC Glucose (mg/dL) 160 H 241 H (75-99) mg/dL Calcium 7.0 L (8.7-10.3) mg/dL 01/28/20 01/28/20 01/28/20 Range/Units 07:00 10:30 11:31 WBC 10.7 H (3.8-10.6) k/uL RBC 2.21 L (3.80-5.40) m/uL Hgb 7.1 L (11.4-16.0) gm/dL Hct 21.6 L (34.0-46.0) % RDW 18.2 H (11.5-15.5) % Plt Count 81 L (150-450) k/uL BUN (9.0-27.0) mg/dL Creatinine (0.6-1.5) mg/dL Est GFR (CKD-EPI)AfAm (60.0-200.0) Est GFR (CKD-EPI)NonAf (60.0-200.0) BUN/Creatinine Ratio (12.00-20.00) Ratio Glucose (70-110) mg/dL POC Glucose (mg/dL) 176 H 165 H (75-99) mg/dL Calcium (8.7-10.3) mg/dL
--- NOTE | 2020-01-28 16:36 | PN ---
PROGRESS NOTE Patient is seen for followup for acute kidney injury. Renal function is fairly stable. No significant complaints. Her BUN continues to improve on a daily basis. The patient has not been eating much. She is status post PEG tube placement and is currently tolerating tube feeds fairly well. The patient is also maintained on free water down the feeding tube for the hypernatremia. PHYSICAL EXAMINATION: On examination today, blood pressure was 118/63, heart rate 62 per minute. She is afebrile. Edema noted bilaterally. Patient does not communicate much. Abdomen is soft. LABS: Labs show sodium 139, potassium 3.5, chloride 108. CO2 is 24, BUN 118, serum creatinine 1.9. ASSESSMENT: 1. Acute kidney injury with significantly elevated BUN, currently improved, mostly associated with some degree of volume depletion and steroids; possible gastrointestinal bleed as well, as hemoglobin is on the lower side, and it did drop down to 6.6. 2. Hypernatremia, improved with free water down the feeding tube. We can discontinue the D5 water. 3. COVID-19 pneumonia. 4. Anemia of chronic disease, maintained on Aranesp. 5. Haemophilus influenzae bacteremia, maintained on antibiotics. PLAN: Discontinue D5W, continue with tube feedings. Continue current dose of free water replacement with the tube feedings. Repeat labs in a.m. Monitor electrolytes. MMODL / IJN: [id number] /
[2020-01-28 16:56] LABS: Glucose,Whole Blood 162 mg/dL (75-99)
[2020-01-28 20:14] LABS: Glucose,Whole Blood 151 mg/dL (75-99)
[2020-01-28] MEDS: ANIDULAFUNGIN 100 MG in SODIUM CHLORIDE 0.9% 100 ML IVPB SCH (20:50)
[2020-01-28] MEDS: HEPARIN SODIUM,PORCINE 5,000 UNIT/ML 1 ML VIAL SQ SCH (20:50)
[2020-01-28] MEDS: INSULIN DETEMIR (LEVEMIR) 100 UNIT/ML SYR SQ SCH (20:51)
--- NOTE | 2020-01-28 23:53 | PN ---
PROGRESS NOTE DATE OF SERVICE: 01/28/2020 REASON FOR FOLLOWUP: Leukocytosis and oropharyngeal candidiasis. INTERVAL HISTORY: Patient is currently afebrile. She is breathing comfortably on room air. She is slightly more awake and alert. No vomiting or diarrhea or any change reported by nursing staff. PHYSICAL EXAMINATION: Blood pressure 109/73, pulse of 78, temperature 97.9. She is 95% on room air. General description: The patient is an elderly female lying in bed in no distress. Respiratory system: Unlabored breathing with decreased intensity of the breath sounds. No wheeze. Heart S1, S2. Regular rate and rhythm. ABDOMEN: Soft, no tenderness. LABS: Hemoglobin 7.1, white count 10.7. DIAGNOSTIC IMPRESSION AND PLAN: 1. Patient with Haemophilus influenzae bacteremia. Source is pneumonia, adequately treated. 2. Patient with elevated white count. Multifactorial with a component of oropharyngeal candidiasis. The patient is on Eraxis. White count normalized. Continue supportive care. MMODL / IJN: [id number] /
[2020-01-29 06:01] LABS: Anisocytosis Slight; HGB 7.5 gm/dL (11.4-16.0); MCH 32.8 pg (25.0-35.0); MCV 96.5 fL (80.0-100.0); Macrocytosis Slight; Mean Platelet Volume 11.3; RBC 2.28 m/uL (3.80-5.40); RDW 18.8 % (11.5-15.5); WBC 11.4 k/uL (3.8-10.6)
[2020-01-29 06:07] LABS: Platelet Count 88 k/uL (150-450)
[2020-01-29 06:19] LABS: Glucose,Whole Blood 106 mg/dL (75-99)
[2020-01-29 06:55] LABS: Glucose,Whole Blood 126 mg/dL (75-99)
[2020-01-29] MEDS: INSULIN ASPART (NovoLOG) 100 UNIT/ML VIAL SQ SCH ×4 (08:22→21:01)
[2020-01-29] MEDS: HEPARIN SODIUM,PORCINE 5,000 UNIT/ML 1 ML VIAL SQ SCH ×2 (09:21→21:01)
[2020-01-29] MEDS: SENNOSIDES 8.6 MG TAB PO SCH ×2 (09:22→21:01)
[2020-01-29] MEDS: ASCORBIC ACID 500 MG TAB PO SCH ×2 (09:22→21:01)
[2020-01-29] MEDS: LIDOCAINE 5% PATCH TOPICAL SCH (09:22)
[2020-01-29] MEDS: CHOLECALCIFEROL 1,000 UNIT TAB PO SCH (09:22)
[2020-01-29] MEDS: ZINC SULFATE 220 MG CAP PO SCH (09:22)
[2020-01-29] MEDS: ASPIRIN 81 MG PO SCH (09:22)
[2020-01-29] MEDS: METOPROLOL TARTRATE 50 MG TAB PO SCH ×2 (09:22→21:00)
[2020-01-29 10:20] LABS: Anion Gap 9.7 mmol/L (4.00-12.00); BUN/Creat Ratio 64.74 Ratio (12.00-20.00); Calcium 7.4 mg/dL (8.7-10.3); Carbon Dioxide 21.3 mmol/L (21.6-31.8); Potassium 3.9 mmol/L (3.5-5.5)
--- NOTE | 2020-01-29 10:46 | P.PN ---
Subjective Progress Note Date: 01/29/20 The patient is being seen in follow-up. Currently is on the medical floor. She is on oxygen at room air. Her chest x-ray is gradually cleared up. She has oropharyngeal candidiasis and the patient is currently on Eraxis. The patient is going to undergo a PEG tube insertion for enteral feeding and nutritional support. She is sleepy. She is still lethargic. No agitation. Does have some hypochloremic hyponatremia and the sodium level is up. Her blood sugar was lower earlier this morning and this was completed. She continues to have some edema in all 4 extremities and she continues to have a triple-lumen cath in her left subclavian. She is on room air oxygen for now. on today's evaluation of 01/27/2020, the patient is on 2 L of oxygen by nasal cannula. She is calm and comfortable. He is around 9900%. She remains weak and lethargic. She is still receiving Eraxis for esophageal candidiasis. The patient was having dysphagia. Patient underwent a PEG tube insertion yesterday and the procedure was successful.her sodium level is up to 149. The patient is currently on D5 water running at 100 mL an hour. She continues to have edema in lower extremity. Pablo catheter in place. The catheter is also in place. Enterofeeding may be started today.The patient was treated for a covid related pneumonia and septic shock secondary to Haemophilus influenza. On 01/28/2020, I'm seeing the patient for a follow-up. The patient is currently on room air oxygen. She is extremely weak. She is able to communicate. She is still in answering questions. She is becoming gradually more appropriate. She is on room air oxygen. No signs of any respiratory distress. PEG tube feeding was out of yesterday. She is also getting free water through the PEG tube. She is able to tolerate the feeding without any major difficulties. No nausea. No vomiting. No emesis. She is still on Eraxis for esophageal candidiasis. She is on D5 water which is running at 100 mL an hour. Follow-up electrodes are still pending from today. on 01/29/2020, the patient is being seen for a follow-up. The patient is still recovering from her Covid 19 pneumonia. She was on room air yesterday she was placed on 2 L of oxygen by nasal cannula when she is back on the mid oxygen for now and her saturations above 90%.. Shewas on D5 water running at 100 mL an hour and she is also receiving free water through an OG every. As far as her electrolytes today, the patient has aSodium 140 and his sodium has improved significantly. She has no fever. No chills. She remains profoundly weak. Her hyponatremia has recovered and the D5 water was discontinued. The acute kidney injury is also recovered and this was related to intravascular volume depletion. The main issue for now remains is had debility and profound weakness. She had esophageal candidiasis and the patient was started on Eraxis. She is on Aranesp 40 g every week. She remains on heparin subcu for DVT prophylaxis. Objective - Vital Signs Vital signs: Vital Signs Temp 98.2 F 01/29/20 10:00 Pulse 78 01/29/20 10:00 Resp 28 H 01/29/20 10:00 BP 98/68 01/29/20 10:00 Pulse Ox 98 01/29/20 10:00 Intake & Output 01/28/20 01/29/20 01/29/20 18:59 06:59 18:59 Intake Total 320 Balance 320 Weight 90.1 kg Intake: Tube Feeding 320 Other: Voiding Method Indwelling Catheter Indwelling Catheter Indwelling Catheter - Exam GENERAL EXAM: Alert, confused, but not agitated, 75-year-old white female, on room air oxygen comfortable in no apparent distress.the patient is extremely weak, communicating, doesn't say a whole lot and she is calm and comfortable, no agitation. She is able to raise her arms and wiggle her toes upon demand. HEAD: Normocephalic/atraumatic. EYES: Normal reaction of pupils, equal size. Conjunctiva pink, sclera white. NOSE: Clear with pink turbinates. NG-tube has been removed THROAT: No erythema or exudates. NECK: No masses, no JVD, no thyroid enlargement, no adenopathy. CHEST: No chest wall deformity. Symmetrical expansion. LUNGS: Equal air entry with no crackles, wheeze, rhonchi or dullness. CVS: Regular rate and rhythm, normal S1 and S2, no gallops, no murmurs, no rubs ABDOMEN: Soft, nontender. No hepatosplenomegaly, normal bowel sounds, no guarding or rigidity. EXTREMITIES: No clubbing,and there is increased edema, no cyanosis, 2+ pulses and upper and lower extremities. MUSCULOSKELETAL: Global weakness in all 4 extremities and the extremities are quite edematous at this point in time. SPINE: No scoliosis or deformity SKIN: No rashes CENTRAL NERVOUS SYSTEM: No confusion on today's evaluation. The patient is able to communicate. She was aware of the year. - Labs CBC & Chem 7: 01/29/20 05:50 01/29/20 05:50 Labs: Abnormal Lab Results - Last 24 Hours (Table) 01/28/20 01/28/20 01/28/20 Range/Units 06:17 10:30 11:31 WBC 10.7 H (3.8-10.6) k/uL RBC 2.21 L (3.80-5.40) m/uL Hgb 7.1 L (11.4-16.0) gm/dL Hct 21.6 L (34.0-46.0) % RDW 18.2 H (11.5-15.5) % Plt Count 81 L (150-450) k/uL Carbon Dioxide (21.6-31.8) mmol/L BUN 118.0 H* (9.0-27.0) mg/dL Creatinine 1.9 H (0.6-1.5) mg/dL Est GFR (CKD-EPI)AfAm 29.0 L (60.0-200.0) Est GFR (CKD-EPI)NonAf 25.0 L (60.0-200.0) BUN/Creatinine Ratio 62.11 H (12.00-20.00) Ratio Glucose 157 H (70-110) mg/dL POC Glucose (mg/dL) 165 H (75-99) mg/dL Calcium 7.0 L (8.7-10.3) mg/dL 01/28/20 01/28/20 01/29/20 Range/Units 16:52 20:12 05:50 WBC (3.8-10.6) k/uL RBC (3.80-5.40) m/uL Hgb (11.4-16.0) gm/dL Hct (34.0-46.0) % RDW (11.5-15.5) % Plt Count (150-450) k/uL Carbon Dioxide 21.3 L (21.6-31.8) mmol/L BUN 123.0 H* (9.0-27.0) mg/dL Creatinine 1.9 H (0.6-1.5) mg/dL Est GFR (CKD-EPI)AfAm 29.0 L (60.0-200.0) Est GFR (CKD-EPI)NonAf 25.0 L (60.0-200.0) BUN/Creatinine Ratio 64.74 H (12.00-20.00) Ratio Glucose (70-110) mg/dL POC Glucose (mg/dL) 162 H 151 H (75-99) mg/dL Calcium 7.4 L (8.7-10.3) mg/dL 01/29/20 01/29/20 01/29/20 Range/Units 05:50 06:17 06:54 WBC 11.4 H (3.8-10.6) k/uL RBC 2.28 L (3.80-5.40) m/uL Hgb 7.5 L (11.4-16.0) gm/dL Hct 22.0 L (34.0-46.0) % RDW 18.8 H (11.5-15.5) % Plt Count 88 L (150-450) k/uL Carbon Dioxide (21.6-31.8) mmol/L BUN (9.0-27.0) mg/dL Creatinine (0.6-1.5) mg/dL Est GFR (CKD-EPI)AfAm (60.0-200.0) Est GFR (CKD-EPI)NonAf (60.0-200.0) BUN/Creatinine Ratio (12.00-20.00) Ratio Glucose (70-110) mg/dL POC Glucose (mg/dL) 106 H 126 H (75-99) mg/dL Calcium (8.7-10.3) mg/dL Assessment and Plan Plan: 1 Acute bilateral COVID 19 pneumonia, with secondary respiratory failure. The patient is currently on room air oxygen. She was on a combination of Decadron patient completed the course of Remdesivir and she also took convalescent plasma. she is on room air oxygen for now. 2 Acute hypoxic respiratory failure,recovered 3 bacteremia sepsis secondary to Haemophilus influenza, likely of a pulmonary source and the patient is currently on Rocephin 2 g every 24 hours. The patient is hemodynamically stable. this was treated. 4 SELENE improving on top of the chronic kidney disease, Recovered 5 Non anion gap meabolic acidosis, recovered 5 altered mental status /encephalopathy, likely metabolic in nature as the patient has Covid 19 related pneumonia in addition to septicemia , improving slowlyand the patient is more appropriate. She is profoundly weak and she has generalized motor weakness 6 hypertension 7 hyperlipidemia 8 troponin leak with a preserved LV function. 9 pedal edema in all 4 extremities 10 dysphagia and the patient has oropharyngeal candidiasis and the patient is going to undergo effectively session today. 11 hyperchloremic hypernatremia, treated with D5 water andshe is normalized her sodium level Plan Anticoagulation with Lovenox 40 mg subcu every 24 hours incentive spirometer continue Eraxis for oropharyngeal candidiasis PEG insertion was successful and the patient on enteral feeding for nutritional support. Physical therapy Aspiration precautions Levemir insulin Aggressive physical therapy we'll see this patient on an as-needed basis. Aggressive physical therapy and discharge planning should be considered.
[2020-01-29 11:43] LABS: Glucose,Whole Blood 131 mg/dL (75-99)
--- NOTE | 2020-01-29 11:48 | XR ---
EXAMINATION TYPE: XR chest 1V portable DATE OF EXAM: 01/29/2020 COMPARISON: 01/22/2020 INDICATION: Covid pneumonia TECHNIQUE: Single frontal view of the chest is obtained. FINDINGS: The heart size is normal. The pulmonary vasculature is normal. Mild diffuse infiltrate is present in the periphery of the lung kaiser greater on the left. There may be slight improvement over the interval. Left central venous catheter is present with tip in superio r vena cava region. 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 Stable or mildly improving peripheral lung infiltrates can be compatible with atypical pneumonia.
[2020-01-29] MEDS: DARBEPOETIN ALFA 40 MCG/0.4 ML SYRINGE SQ SCH (12:35)
--- NOTE | 2020-01-29 13:53 | P.PN ---
Subjective Progress Note Date: 01/29/20 Acute hypoxic respiratory failure: secondary to covid 19 pneumonia 74-year-old female is admitted for hypoxia elevated troponins found to have positive Covid. Patient was transferred from outside hospital. Patient at baseline apparently is awake and alert. Patient is oriented 1 at this time. Patient did have fever and shortness of breath because of which patient was sent in here. Patient has elevated urine creatinine of 2.5 baseline is not available but patient apparently has chronic kidney disease. 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 Patient is found to have mildly elevated t roponins of 0.2-3. Patient denied any chest pain although patient is extremely poor historian because of her confusion and hearing problems. His blood cultures from the other hospital came back positive for gram-positive cocci unsure whether it's clusters sore repairs. Patient will be started on vancomycin infectious disease will be consulted may need tube be switched to daptomycin, considering her kidney function. 01/07/2020 Patient is presently on the eighth liters of oxygen although patient is not in respiratory distress whenever she doesn't wear this oxygen his sister AND saturation dropped down to 80%. Patient blood cultures are positive for coag is negative staph which is a contamination and medics will be discontinued. Repeat cultures are pending 01/08/2020 Patient progressively became dyspneic was transferred to intensive care unit patient was started on Rocephin and azithromycin for secondary bacterial pneumonia, IV recommended vancomycin as well. Patient had a central line placed.. Creatinine improved to 1.9. Patient is presently on Remdesivir date 3 along with Decadron, vitamin C, vitamin D and zinc 01/09/2020 Patient is bacteremic with Haemophilus influenza repeat blood cultures will be obtained and patient is on Rocephin patient is presently on 55 L of oxygen. Patient has severe toxic encephalopathy with tremors. Neurology evaluated the patient. 01/10/2020 Patient's tremors and shaking he is better patient continues to be on Pracedex. Bicarbonate drip was discontinued patient has hyperchloremia and hyper next anemia because of which patient will be switched to half-normal saline. 01/11/2020 Patient is also receiving metoprolol apart from a clonidine because of her tachycardia and hypertension patient presently doesn't have an NG tube patient is presently nothing by mouth. Patient is presently on 60 L of oxygen via able. 01/12/2020 Patient still remains on high oxygen about the 55 L. Patient repeat cultures for last 3 days with negative had Haemophilus influenza. Remains on Decadron. Patient has toxic metabolic encephalopathy. 01/13/2020 Patient remains on 45 L of oxygen still having fever highly elevated the inflammatory markers. Patient had an NG tube now and is receiving Glucerna. Chest x-ray from today showing peripheral infiltrates there is a downward trend and d-dimer. 01/14/2020 No significant change in her respiratory status. Patient is afebrile since yesterday morning. Inflammatory markers trended down. Patient remains on 45 L of oxygen 01/15/2020 Patient is awake alert. Currently on high flow oxygen on airvo. Complaints of generalized weakness and shortness of breath and cough. Chest x-ray showed sta ble chest with bilateral infiltrates and small left-sided pleural effusion. Patient is being continued on antibiotics in the form of ceftriaxone and antifungal Eraxis. Blood cultures grew haemophilus influenza and repeat cultures have been negative so far. Laboratory data showed WBC 22.1, hemoglobin 10.8 and platelets 157 absolute lymphocyte count 0.66 BUN 72 and creatinine 1.45 Elevated inflammatory markers. 01/23/2020 Patient is seen and evaluated in follow-up much more awake although fatigues easily. Patient is eating more per nursing staff and tolerating honey thickened diet at this time. Patient is maintaining oxygen saturations on 4 L via nasal cannula in the high 90s. Patient is a mouth breather as well oral mucosa is dry. Patient is taking medications per nursing staff. BUN continues to be elevated and nephrology is following. Creatinine is 1.7. Magnesium elevated at 2.6, potassium is 4.1. Surgery following with the possibility of PEG tube placement and patient currently undergoing calorie counting. Multiple medical consultations following. PT/OT therapy attempted to work with the patient and patient continues to be a max assist and barely moving out of the bed. Case management and social work also following as patient will require an ECF for rehab stabilized and discharged. 01/24/2020 Patient is currently lying in the bed comfortable and unable to provide any history. patient does have poor oral intake. Patient has trouble swallowing. General surgery was consulted for possible PEG tube placement. Otherwise laboratory test showed renal function with creatinine of 1.9 and BUN 132 likely due to steroids. Pulmonary nephrology is following. 01/25/2020 Patient does have very poor oral intake. General surgery was consulted for PEG tube placement. Calorie count and increased oral intake was recommended. Otherwise patient hemoglobin level is 6.6 today. Will be transfused with 1 unit of PRBC and monitor H&H. Laboratory data showed sodium 149, potassium 3.8, BUN 137 creatinine 2.1 Patient is being treated D5 water. Nephrology is following. Arrest patient is on antifungals. ID is on board. 01/26/2020 Patient was having bleeding around the PEG tube site area. This is probably secondary to worsening kidney function and being on Lovenox with the worsening kidney function Lovenox E to excess bleeding or axillary this can urine patient was started on subcutaneous heparin as long as she doesn't bleed any more. Chest x-ray showing right-sided pleural effusion patient appears to have right upper lobe pneumonia patient appears to have acute on chronic hypercapnic respiratory failure. 01/27/2020 Patient bleeding from the PEG tube site resolved, patient doesn't have any more GI bleed patient the has a mild improvement makes up for Trotter commands doesn't verbalize. Patient is severely dehydrated patient is presently on D5 water pa tient is hyperchloremic and hyponatremic secondary to that. Nephrology evaluated the patient and patient will be continued on D5 water along with the 01/28/2020 Patient is tolerating PEG tube feedings. Patient is more awake looks much better was apparently talking to family members but did not verbalize anything to me.Physical therapy and occupational therapy will be consulted. Patient remains on D5 water with significant improvement in sodium chloride and acidosis. Ulcerative discharged to subacute rehabitation a day to patient has a low-grade temperature of 99.7 concern is central line infection blood cultures will be obtained since this is only line and she has central and is not being discontinued will obtain 1 peripheral blood culture and one culture from the central line. White blood cell count is coming down will repeat CBC and a BMP for tomorrow Review of systems: Unable to obtain due to her clinical condition All inpatient medications were reviewed and appropriate changes in these medications as dictated in the interval history and assessment and plan. 01/29/2020 Patient is seen in follow-up currently receiving bolus tube feedings as staff had mentioned they did not have any tubing at the time although tubing has been obtained and will start tube feedings and discontinue boluses were today. Patient is currently tolerating at a goal of 40 mL per hour with continued 30 mL freewater flushes 4 times daily. Patient is afebrile today and much more awake and alert although still unable to speak but does nod her head appropriately to questions and commands. Social work following working on placement at an ECF in [facility] an authorization is being is submitted and currently pending at this time. Repeat Covid testing is negative at this time. Multiple medical consultations continue to follow and will continue to monitor closely. No reports of chest pain or shortness of breath. Patient is afebrile. Hemoglobin today is 7.5 with no active bleeding noted from the rectum. Patient does have some wounds on the buttock area that are excoriated and have minimal bleeding noted on them. Objective - Vital Signs Vital signs: Vital Signs Temp 98.2 F 01/29/20 10:00 Pulse 78 01/29/20 10:00 Resp 28 H 01/29/20 10:00 BP 98/68 01/29/20 10:00 Pulse Ox 98 01/29/20 10:00 Intake & Output 01/28/20 01/29/20 01/29/20 18:59 06:59 18:59 Intake Total 320 Balance 320 Weight 90.1 kg Intake: Tube Feeding 320 Other: Voiding Method Indwelling Catheter Indwelling Catheter Indwelling Catheter - Exam GENERAL: The patient is awake and alert and still nonverbal, not in any acute distress. Well developed, well nourished. HEENT: Pupils are round and equally reacting to light. EOMI. No scleral icterus. No conjunctival pallor. Normocephalic, atraumatic. No pharyngeal erythema. No thyromegaly. CARDIOVASCULAR: S1 and S2 present. No murmurs, rubs, or gallops. PULMONARY: Chest is clear to auscultation, no wheezing or crackles. ABDOMEN: Soft, nontender, nondistended, normoactive bowel sounds. No palpable or ganomegaly. PEG tube noted with no surrounding redness or swelling, no bleeding noted MUSCULOSKELETAL: No joint swelling or deformity. EXTREMITIES: No cyanosis, clubbing, or pedal edema. NEUROLOGICAL: Doesn't appear to have any focal deficits SKIN: No rashes. - Labs CBC & Chem 7: 01/29/20 05:50 01/29/20 05:50 Labs: Abnormal Lab Results - Last 24 Hours (Table) 01/28/20 01/28/20 01/28/20 Range/Units 06:17 10:30 16:52 WBC 10.7 H (3.8-10.6) k/uL RBC 2.21 L (3.80-5.40) m/uL Hgb 7.1 L (11.4-16.0) gm/dL Hct 21.6 L (34.0-46.0) % RDW 18.2 H (11.5-15.5) % Plt Count 81 L (150-450) k/uL Carbon Dioxide (21.6-31.8) mmol/L BUN 118.0 H* (9.0-27.0) mg/dL Creatinine (0.6-1.5) mg/dL Est GFR (CKD-EPI)AfAm (60.0-200.0) Est GFR (CKD-EPI)NonAf (60.0-200.0) BUN/Creatinine Ratio (12.00-20.00) Ratio POC Glucose (mg/dL) 162 H (75-99) mg/dL Calcium (8.7-10.3) mg/dL 01/28/20 01/29/20 01/29/20 Range/Units 20:12 05:50 05:50 WBC 11.4 H (3.8-10.6) k/uL RBC 2.28 L (3.80-5.40) m/uL Hgb 7.5 L (11.4-16.0) gm/dL Hct 22.0 L (34.0-46.0) % RDW 18.8 H (11.5-15.5) % Plt Count 88 L (150-450) k/uL Carbon Dioxide 21.3 L (21.6-31.8) mmol/L BUN 123.0 H* (9.0-27.0) mg/dL Creatinine 1.9 H (0.6-1.5) mg/dL Est GFR (CKD-EPI)AfAm 29.0 L (60.0-200.0) Est GFR (CKD-EPI)NonAf 25.0 L (60.0-200.0) BUN/Creatinine Ratio 64.74 H (12.00-20.00) Ratio POC Glucose (mg/dL) 151 H (75-99) mg/dL Calcium 7.4 L (8.7-10.3) mg/dL 01/29/20 01/29/20 01/29/20 Range/Units 06:17 06:54 11:41 WBC (3.8-10.6) k/uL RBC (3.80-5.40) m/uL Hgb (11.4-16.0) gm/dL Hct (34.0-46.0) % RDW (11.5-15.5) % Plt Count (150-450) k/uL Carbon Dioxide (21.6-31.8) mmol/L BUN (9.0-27.0) mg/dL Creatinine (0.6-1.5) mg/dL Est GFR (CKD-EPI)AfAm (60.0-200.0) Est GFR (CKD-EPI)NonAf (60.0-200.0) BUN/Creatinine Ratio (12.00-20.00) Ratio POC Glucose (mg/dL) 106 H 126 H 131 H (75-99) mg/dL Calcium (8.7-10.3) mg/dL Assessment and Plan Assessment: -Acute hypoxic respiratory failure: secondary to covid 19 pneumonia. Improved patient is saturating well at this time on room air -secondary bacterial pneumonia, with Haemophilus influenza -bacteremia with Haemophilus influenza completed antibiotic therapy. Patient is also on antifungal. Patient is being followed by infectious disease. Antifungal will be discontinued upon discharge -Fever: Low-grade concern for central line infection blood cultures will be obtained as mentioned above, cultures thus far are negative -An episode of GI bleed along with the PEG tube site bleeding: Secondary to Lovenox and renal failure. Patient remains on subcutaneous heparin. current hemoglobin is 7.5 with no active bleeding noted -Toxic encephalopathy, altered mental status: Secondary to infection, patient also has met [place] encephalopathy from mild acute abnormalities -Elevated troponin secondary to infection and renal failure -Acute kidney injury secondary to infection patient does have chronic kidney disease unable to stage chronic kidney disease as baseline is not known. -Hypernatremia due to dehydration volume depletion. Improved. D5 water discontinued and will continue free water flushes via PEG tube -Hypertension -Hyperlipidemia -Possible myoclonus: Secondary to encephalopathy, resolved at this time. -DVT prophylaxis with heparin Plan: Continue current medications. Social work following and has submitted authorization and awaiting acceptance at an [facility] for continued rehab.She is maintained on room air and tolerating well. Blood cultures remain negative. Patient is afebrile. Will continue with tube feedings and currently at 40 mL per hour along with 30 mL 4 times a free water flushes. IV fluids discontinued. PT/OT following the patient has been working with them getting to the side of the bed. Further recommendations to follow. Full discharge in 24 hours.
--- NOTE | 2020-01-29 14:54 | P.PN ---
Subjective Progress Note Date: 01/29/20 CHIEF COMPLAINT: Covid HISTORY OF PRESENT ILLNESS: This is a 74-year-old female who presented to the hospital with hypoxia, elevated troponins and was found to have positive COVID pneumonia. Patient did require ICU care and had been on Airvo and now transitioned to nasal cannula. Patient is status post PEG tube placement. Patient is tolerating bolus tube feedings. She's had no further bleeding from PEG tube site. Nursing staff reported that patient did have some blood around one of her bowel movement yesterday. Her bowel movement today was formed and brown no evidence of bleeding. Afebrile. WBC is 11.4 hemoglobin is 7.5 PHYSICAL EXAM: VITAL SIGNS: Reviewed. GENERAL: Well-developed in no acute distress. Pale in color HEENT: No sclera icterus. Extraocular movements grossly intact. Moist buccal mucosa. Head is atraumatic, normocephalic. ABDOMEN: Soft. Nondistended. Nontender. PEG tube in place ASSESSMENT: 1. Moderate protein calorie malnutrition status post PEG tube placement 2. Acute hypoxemic respiratory failure secondary to Covid 19 pneumonia 3. Haemophilus influenza bacteremia likely related to pneumonia 4. Acute kidney injury followed by nephrology 5. Acute metabolic encephalopathy 6. Bleeding from PEG tube site resolved 7. GI bleeding with blood per rectum 8. Anemia likely multifactorial due to acute blood loss anemia with GI bleed, acute illness, malnutrition, bleeding from PEG tube site and underlying chronic kidney disease PLAN: -Continue tube feedings -Continue supportive care -Repeat CBC in a.m. -Recommend colonoscopy next week when patient is more stable Physician Debate Director note has been reviewed by physician. Signing provider agrees with the documented findings, assessment, and plan of care. Objective - Vital Signs Vital signs: Vital Signs Temp 98.4 F 01/29/20 14:00 Pulse 67 01/29/20 14:00 Resp 19 01/29/20 14:00 BP 135/78 01/29/20 14:00 Pulse Ox 98 01/29/20 14:00 Intake & Output 01/28/20 01/29/20 01/29/20 18:59 06:59 18:59 Intake Total 800 Balance 800 Weight 90.1 kg Intake: Tube Feeding 800 Other: Voiding Method Indwelling Catheter Indwelling Catheter Indwelling Catheter - Labs CBC & Chem 7: 01/29/20 05:50 01/29/20 05:50 Labs: Abnormal Lab Results - Last 24 Hours (Table) 01/28/20 01/28/20 01/28/20 Range/Units 06:17 16:52 20:12 WBC (3.8-10.6) k/uL RBC (3.80-5.40) m/uL Hgb (11.4-16.0) gm/dL Hct (34.0-46.0) % RDW (11.5-15.5) % Plt Count (150-450) k/uL Carbon Dioxide (21.6-31.8) mmol/L BUN 118.0 H* (9.0-27.0) mg/dL Creatinine (0.6-1.5) mg/dL Est GFR (CKD-EPI)AfAm (60.0-200.0) Est GFR (CKD-EPI)NonAf (60.0-200.0) BUN/Creatinine Ratio (12.00-20.00) Ratio POC Glucose (mg/dL) 162 H 151 H (75-99) mg/dL Calcium (8.7-10.3) mg/dL 01/29/20 01/29/20 01/29/20 Range/Units 05:50 05:50 06:17 WBC 11.4 H (3.8-10.6) k/uL RBC 2.28 L (3.80-5.40) m/uL Hgb 7.5 L (11.4-16.0) gm/dL Hct 22.0 L (34.0-46.0) % RDW 18.8 H (11.5-15.5) % Plt Count 88 L (150-450) k/uL Carbon Dioxide 21.3 L (21.6-31.8) mmol/L BUN 123.0 H* (9.0-27.0) mg/dL Creatinine 1.9 H (0.6-1.5) mg/dL Est GFR (CKD-EPI)AfAm 29.0 L (60.0-200.0) Est GFR (CKD-EPI)NonAf 25.0 L (60.0-200.0) BUN/Creatinine Ratio 64.74 H (12.00-20.00) Ratio POC Glucose (mg/dL) 106 H (75-99) mg/dL Calcium 7.4 L (8.7-10.3) mg/dL 01/29/20 01/29/20 Range/Units 06:54 11:41 WBC (3.8-10.6) k/uL RBC (3.80-5.40) m/uL Hgb (11.4-16.0) gm/dL Hct (34.0-46.0) % RDW (11.5-15.5) % Plt Count (150-450) k/uL Carbon Dioxide (21.6-31.8) mmol/L BUN (9.0-27.0) mg/dL Creatinine (0.6-1.5) mg/dL Est GFR (CKD-EPI)AfAm (60.0-200.0) Est GFR (CKD-EPI)NonAf (60.0-200.0) BUN/Creatinine Ratio (12.00-20.00) Ratio POC Glucose (mg/dL) 126 H 131 H (75-99) mg/dL Calcium (8.7-10.3) mg/dL Microbiology - Last 24 Hours (Table) 01/28/20 11:27 Blood Culture - Preliminary Blood No Growth after 24 hours 01/28/20 11:19 Blood Culture - Preliminary Blood No Growth after 24 hours
--- NOTE | 2020-01-29 15:44 | PN ---
Please see next note. MMODL / IJN: [id number] / BIN
--- NOTE | 2020-01-29 15:50 | PN ---
PROGRESS NOTE Patient is seen for followup for acute kidney injury. Case is discussed with nursing staff. The patient is not examined. Overall general condition is about the same. Patient is maintained on tube feedings. She is tolerating her feedings well. She is getting free water down the feeding tube. Her sodium levels have improved. PHYSICAL EXAMINATION: Today, vital signs are reviewed. Blood pressure is 98/68, heart rate of 78 per minute, patient is afebrile. She remains with trace edema in the legs. Mentation is not changed much over the last day or so. The patient is tolerating tube feedings. Heart and lung exam is not performed. LABS: Show sodium 140, potassium 3.9, chloride 109, BUN 123, serum creatinine 1.9. ASSESSMENT: 1. Acute kidney injury ATN currently nonoliguric and stable with disproportionately elevated BUN associated with steroids as well as possible underlying GI bleed. 2. Hyponatremia, improved with free water flushes, IV D5W is now discontinued. 3. COVID-19 pneumonia. 4. Haemophilus influenzae bacteremia, maintained on antibiotics. 5. Anemia of chronic disease, currently on Aranesp. PLAN: Continue with free water down the feeding tube. Monitor electrolytes. Continue with Aranesp and repeat labs in a.m. MMODL / IJN: [id number] /
[2020-01-29 16:49] LABS: Glucose,Whole Blood 144 mg/dL (75-99)
[2020-01-29 20:44] LABS: Glucose,Whole Blood 172 mg/dL (75-99)
[2020-01-29] MEDS: ANIDULAFUNGIN 100 MG in SODIUM CHLORIDE 0.9% 100 ML IVPB SCH (21:00)
[2020-01-29] MEDS: INSULIN DETEMIR (LEVEMIR) 100 UNIT/ML SYR SQ SCH (21:01)
[2020-01-29] MEDS: LACTATED RINGERS 1,000 ML IV SCH (21:01)
--- NOTE | 2020-01-29 22:38 | PN ---
PROGRESS NOTE DATE OF SERVICE: 01/29/2020 REASON FOR FOLLOWUP: Leukocytosis, oropharyngeal candidiasis. INTERVAL HISTORY: The patient is currently afebrile. The patient is more awake and alert. She is breathing comfortably. Did not notice vomiting or diarrhea or any other changes reported by the nursing staff. PHYSICAL EXAMINATION: Blood pressure 126/70 with a pulse of 78, temperature 98.7. She is 100% on room air. General description is an elderly female lying in bed in no distress. RESPIRATORY SYSTEM: Unlabored breathing with decreased intensity of breath sounds. No wheeze. HEART: S1, S2. Regular rate and rhythm. ABDOMEN: Soft. No tenderness. LABS: Hemoglobin 7.4, white count 11.4. BUN 123, creatinine 1.9. DIAGNOSTIC IMPRESSION AND PLAN: 1. Patient with Haemophilus influenzae bacteremia secondary to pneumonia that has been adequately treated 2. Patient with elevated white count, multifactorial, with concern for possible oropharyngeal candidiasis. The patient has completed a course of Eraxis; to be discontinued on discharge. This was discussed with the nurse practitioner working on discharge. MMODL / JACKSONN: [id number] / MTDD
[2020-01-30 07:13] LABS: Glucose,Whole Blood 146 mg/dL (75-99)
[2020-01-30] MEDS: ALBUTEROL HFA INHALER INHALATION PRN ×2 (07:45→15:20)
[2020-01-30] MEDS: ASCORBIC ACID 500 MG TAB PO SCH ×2 (07:45→21:35)
[2020-01-30] MEDS: ZINC SULFATE 220 MG CAP PO SCH (07:45)
[2020-01-30] MEDS: LIDOCAINE 5% PATCH TOPICAL SCH (07:45)
[2020-01-30] MEDS: METOPROLOL TARTRATE 50 MG TAB PO SCH ×2 (07:45→21:35)
[2020-01-30] MEDS: CHOLECALCIFEROL 1,000 UNIT TAB PO SCH (07:45)
[2020-01-30] MEDS: SENNOSIDES 8.6 MG TAB PO SCH ×2 (07:45→21:35)
[2020-01-30] MEDS: ASPIRIN 81 MG PO SCH (07:45)
[2020-01-30] MEDS: INSULIN ASPART (NovoLOG) 100 UNIT/ML VIAL SQ SCH ×4 (07:46→21:36)
[2020-01-30] MEDS: HEPARIN SODIUM,PORCINE 5,000 UNIT/ML 1 ML VIAL SQ SCH ×2 (07:46→21:36)
[2020-01-30 09:31] LABS: Anisocytosis Slight; HCT 20.7 % (34.0-46.0); Hypochromasia Slight; MCH 32.6 pg (25.0-35.0); MCHC 33.1 g/dL (31.0-37.0); MCV 98.4 fL (80.0-100.0); Macrocytosis Slight; Mean Platelet Volume 10.5; Platelet Count 101 k/uL (150-450); Poikilocytosis Slight; RBC 2.11 m/uL (3.80-5.40); RDW 19.5 % (11.5-15.5)
[2020-01-30 09:47] LABS: HGB 6.9 gm/dL (11.4-16.0)
[2020-01-30 10:06] LABS: African American GFR (CKD) 30 (>60 ml/min/1.73 sqM); Anion Gap 3 mmol/L; Calcium 7.3 mg/dL (8.4-10.2); Carbon Dioxide 25 mmol/L (22-30); Chloride 109 mmol/L (98-107); Glucose 126 mg/dL (74-99); Non-African American GFR(CKD) 26 (>60 ml/min/1.73 sqM); Potassium 3.7 mmol/L (3.5-5.1); Sodium 137 mmol/L (137-145)
[2020-01-30 10:32] LABS: Blood Urea Nitrogen 114 mg/dL (7-17)
[2020-01-30 10:49] LABS: Band Neutrophils % 1 %; Eosinophils # (M) 0.25 k/uL (0-0.7); Lymphocytes # (M) 0.25 k/uL (1.0-4.8); Metamyelocytes # (M) 0.08 k/uL (0); Metamyelocytes % 1 %; Monocytes # (M) 0.08 k/uL (0-1.0); Neutrophils % (M) 93 %; Nucleated Red Blood Cells 1 /100 WBC (0-0); Total Cells Counted 200; WBC 8.3 k/uL (3.8-10.6)
[2020-01-30 10:50] LABS: Polychromasia Present
--- NOTE | 2020-01-30 11:25 | P.PN ---
Subjective Progress Note Date: 01/30/20 CHIEF COMPLAINT: Covid HISTORY OF PRESENT ILLNESS: This is a 74-year-old female who presented to the hospital with hypoxia, elevated troponins and was found to have positive COVID pneumonia. Patient did require ICU care and had been on Airvo and now transitioned to nasal cannula. Patient is status post PEG tube placement. Patient is tolerating tube feedings. 2 feedings are currently at 40 mL per hour. Patient did have one loose bowel movement with blood present. Covid test was negative yesterday patient's hemoglobin 6.9. She is receiving a unit of blood PHYSICAL EXAM: VITAL SIGNS: Reviewed. GENERAL: Well-developed in no acute distress. Pale in color HEENT: No sclera icterus. Extraocular movements grossly intact. Moist buccal mucosa. Head is atraumatic, normocephalic. ABDOMEN: Soft. Nondistended. Nontender. PEG tube in place ASSESSMENT: 1. Moderate protein calorie malnutrition status post PEG tube placement 2. Acute blood loss anemia with blood present per rectum 3. Acute hypoxemic respiratory failure secondary to Covid 19 pneumonia 4. Haemophilus influenza bacteremia likely related to pneumonia 5. Acute kidney injury followed by nephrology 6. Acute metabolic encephalopathy 7. Bleeding from PEG tube site resolved PLAN: -Plan for colonoscopy on 02/02/[address] Singer -Continue tube feedings -Continue supportive care -Continue to monitor hemoglobin Physician Stacker Tender note has been reviewed by physician. Signing provider agrees with the documented findings, assessment, and plan of care. Objective - Vital Signs Vital signs: Vital Signs Temp 97.6 F 01/30/20 09:24 Pulse 71 01/30/20 09:24 Resp 19 01/30/20 09:24 BP 130/69 01/30/20 09:24 Pulse Ox 98 01/30/20 09:24 Intake & Output 01/29/20 01/30/20 01/30/20 18:59 06:59 18:59 Intake Total 800 Output Total 800 800 650 Balance 0 -800 -650 Intake: Tube Feeding 800 Output: Urine 800 800 650 Uretheral (Pablo) 800 800 Other: Voiding Method Indwelling Catheter Indwelling Catheter Indwelling Catheter # Bowel Movements 2 - Labs CBC & Chem 7: 01/30/20 08:45 01/30/20 08:45 Labs: Abnormal Lab Results - Last 24 Hours (Table) 01/29/20 01/29/20 01/29/20 Range/Units 11:41 16:47 20:43 RBC (3.80-5.40) m/uL Hct (34.0-46.0) % RDW (11.5-15.5) % Plt Count (150-450) k/uL Neutrophils # (Manual) (1.3-7.7) k/uL Lymphocytes # (Manual) (1.0-4.8) k/uL Metamyelocytes # (Man) (0) k/uL Nucleated RBCs (0-0) /100 WBC Chloride (98-107) mmol/L BUN (7-17) mg/dL Creatinine (0.52-1.04) mg/dL Glucose (74-99) mg/dL POC Glucose (mg/dL) 131 H 144 H 172 H (75-99) mg/dL Calcium (8.4-10.2) mg/dL 01/30/20 01/30/20 01/30/20 Range/Units 07:12 08:45 08:45 RBC 2.11 L (3.80-5.40) m/uL Hct 20.7 L (34.0-46.0) % RDW 19.5 H (11.5-15.5) % Plt Count 101 L (150-450) k/uL Neutrophils # (Manual) 7.80 H (1.3-7.7) k/uL Lymphocytes # (Manual) 0.25 L (1.0-4.8) k/uL Metamyelocytes # (Man) 0.08 H (0) k/uL Nucleated RBCs 1 H (0-0) /100 WBC Chloride 109 H (98-107) mmol/L BUN 114 H* (7-17) mg/dL Creatinine 1.84 H (0.52-1.04) mg/dL Glucose 126 H (74-99) mg/dL POC Glucose (mg/dL) 146 H (75-99) mg/dL Calcium 7.3 L (8.4-10.2) mg/dL Microbiology - Last 24 Hours (Table) 01/28/20 11:27 Blood Culture - Preliminary Blood No Growth after 24 hours 01/28/20 11:19 Blood Culture - Preliminary Blood No Growth after 24 hours
[2020-01-30 11:35] LABS: Glucose,Whole Blood 224 mg/dL (75-99)
[2020-01-30 13:34] VITALS: BMI 31.1
--- NOTE | 2020-01-30 14:43 | P.PN ---
Subjective Progress Note Date: 01/30/20 Acute hypoxic respiratory failure: secondary to covid 19 pneumonia 74-year-old female is admitted for hypoxia elevated troponins found to have positive Covid. Patient was transferred from outside hospital. Patient at baseline apparently is awake and alert. Patient is oriented 1 at this time. Patient did have fever and shortness of breath because of which patient was sent in here. Patient has elevated urine creatinine of 2.5 baseline is not available but patient apparently has chronic kidney disease. Does follow with a fur operator as an outpatient. Patient is found to have mildly elevated t roponins of 0.2-3. Patient denied any chest pain although patient is extremely poor historian because of her confusion and hearing problems. His blood cultures from the other hospital came back positive for gram-positive cocci unsure whether it's clusters sore repairs. Patient will be started on vancomycin infectious disease will be consulted may need tube be switched to daptomycin, considering her kidney function. 01/07/2020 Patient is presently on the eighth liters of oxygen although patient is not in respiratory distress whenever she doesn't wear this oxygen his sister AND saturation dropped down to 80%. Patient blood cultures are positive for coag is negative staph which is a contamination and medics will be discontinued. Repeat cultures are pending 01/08/2020 Patient progressively became dyspneic was transferred to intensive care unit patient was started on Rocephin and azithromycin for secondary bacterial pneumonia, IV recommended vancomycin as well. Patient had a central line placed.. Creatinine improved to 1.9. Patient is presently on Remdesivir date 3 along with Decadron, vitamin C, vitamin D and zinc 01/09/2020 Patient is bacteremic with Haemophilus influenza repeat blood cultures will be obtained and patient is on Rocephin patient is presently on 55 L of oxygen. Patient has severe toxic encephalopathy with tremors. Neurology evaluated the patient. 01/10/2020 Patient's tremors and shaking he is better patient continues to be on Pracedex. Bicarbonate drip was discontinued patient has hyperchloremia and hyper next anemia because of which patient will be switched to half-normal saline. 01/11/2020 Patient is also receiving metoprolol apart from a clonidine because of her tachycardia and hypertension patient presently doesn't have an NG tube patient is presently nothing by mouth. Patient is presently on 60 L of oxygen via able. 01/12/2020 Patient still remains on high oxygen about the 55 L. Patient repeat cultures for last 3 days with negative had Haemophilus influenza. Remains on Decadron. Patient has toxic metabolic encephalopathy. 01/13/2020 Patient remains on 45 L of oxygen still having fever highly elevated the inflammatory markers. Patient had an NG tube now and is receiving Glucerna. Chest x-ray from today showing peripheral infiltrates there is a downward trend and d-dimer. 01/14/2020 No significant change in her respiratory status. Patient is afebrile since yesterday morning. Inflammatory markers trended down. Patient remains on 45 L of oxygen 01/15/2020 Patient is awake alert. Currently on high flow oxygen on airvo. Complaints of generalized weakness and shortness of breath and cough. Chest x-ray showed sta ble chest with bilateral infiltrates and small left-sided pleural effusion. Patient is being continued on antibiotics in the form of ceftriaxone and antifungal Eraxis. Blood cultures grew haemophilus influenza and repeat cultures have been negative so far. Laboratory data showed WBC 22.1, hemoglobin 10.8 and platelets 157 absolute lymphocyte count 0.66 BUN 72 and creatinine 1.45 Elevated inflammatory markers. 01/23/2020 Patient is seen and evaluated in follow-up much more awake although fatigues easily. Patient is eating more per nursing staff and tolerating honey thickened diet at this time. Patient is maintaining oxygen saturations on 4 L via nasal cannula in the high 90s. Patient is a mouth breather as well oral mucosa is dry. Patient is taking medications per nursing staff. BUN continues to be elevated and nephrology is following. Creatinine is 1.7. Magnesium elevated at 2.6, potassium is 4.1. Surgery following with the possibility of PEG tube placement and patient currently undergoing calorie counting. Multiple medical consultations following. PT/OT therapy attempted to work with the patient and patient continues to be a max assist and barely moving out of the bed. Case management and social work also following as patient will require an ECF for rehab stabilized and discharged. 01/24/2020 Patient is currently lying in the bed comfortable and unable to provide any history. patient does have poor oral intake. Patient has trouble swallowing. General surgery was consulted for possible PEG tube placement. Otherwise laboratory test showed renal function with creatinine of 1.9 and BUN 132 likely due to steroids. Pulmonary nephrology is following. 01/25/2020 Patient does have very poor oral intake. General surgery was consulted for PEG tube placement. Calorie count and increased oral intake was recommended. Otherwise patient hemoglobin level is 6.6 today. Will be transfused with 1 unit of PRBC and monitor H&H. Laboratory data showed sodium 149, potassium 3.8, BUN 137 creatinine 2.1 Patient is being treated D5 water. Nephrology is following. Arrest patient is on antifungals. ID is on board. 01/26/2020 Patient was having bleeding around the PEG tube site area. This is probably secondary to worsening kidney function and being on Lovenox with the worsening kidney function Lovenox E to excess bleeding or axillary this can urine patient was started on subcutaneous heparin as long as she doesn't bleed any more. Chest x-ray showing right-sided pleural effusion patient appears to have right upper lobe pneumonia patient appears to have acute on chronic hypercapnic respiratory failure. 01/27/2020 Patient bleeding from the PEG tube site resolved, patient doesn't have any more GI bleed patient the has a mild improvement makes up for Trotter commands doesn't verbalize. Patient is severely dehydrated patient is presently on D5 water pa tient is hyperchloremic and hyponatremic secondary to that. Nephrology evaluated the patient and patient will be continued on D5 water along with the 01/28/2020 Patient is tolerating PEG tube feedings. Patient is more awake looks much better was apparently talking to family members but did not verbalize anything to me.Physical therapy and occupational therapy will be consulted. Patient remains on D5 water with significant improvement in sodium chloride and acidosis. Ulcerative discharged to subacute rehabitation a day to patient has a low-grade temperature of 99.7 concern is central line infection blood cultures will be obtained since this is only line and she has central and is not being discontinued will obtain 1 peripheral blood culture and one culture from the central line. White blood cell count is coming down will repeat CBC and a BMP for tomorrow Review of systems: Unable to obtain due to her clinical condition All inpatient medications were reviewed and appropriate changes in these medications as dictated in the interval history and assessment and plan. 01/29/2020 Patient is seen in follow-up currently receiving bolus tube feedings as staff had mentioned they did not have any tubing at the time although tubing has been obtained and will start tube feedings and discontinue boluses were today. Patient is currently tolerating at a goal of 40 mL per hour with continued 30 mL freewater flushes 4 times daily. Patient is afebrile today and much more awake and alert although still unable to speak but does nod her head appropriately to questions and commands. Social work following working on placement at an ECF in [facility] an authorization is being is submitted and currently pending at this time. Repeat Covid testing is negative at this time. Multiple medical consultations continue to follow and will continue to monitor closely. No reports of chest pain or shortness of breath. Patient is afebrile. Hemoglobin today is 7.5 with no active bleeding noted from the rectum. Patient does have some wounds on the buttock area that are excoriated and have minimal bleeding noted on them. 01/30/2020 Patient is seen and evaluated in follow-up much more awake and alert and actually talking and responding appropriately. Patient states she has been sitting on her butt for far too long and would like to go to rehab to build up her strength. Patient was approved for ECF and authorization was obtained although patient's hemoglobin was found to be 6.9 this morning and requiring 1 unit of PRBCs. Surgery following and planning to do a colonoscopy to monitor for any bleeding per rectum. Per nursing staff small amounts of blood noted around the stool. Surgery along with nephrology following and patient is maintained on tube feedings with free water flushes and will continue at this time. Sodium is improved at 137, potassium is 3.7, BUN slowly trending down and current creatinine is 1.84. Patient continues to be maintained on room air and is currently 98%. Patient denies any chest pain, shortness of breath, or palpitations. Patient is afebrile. No reports of nausea or vomiting and patient is tolerating small amounts of pure diet with assistance and will continue tube feedings at this time. Objective - Vital Signs Vital signs: Vital Signs Temp 97.6 F 01/30/20 09:24 Pulse 71 01/30/20 09:24 Resp 19 01/30/20 09:24 BP 130/69 01/30/20 09:24 Pulse Ox 98 01/30/20 09:24 Intake & Output 01/29/20 01/30/20 01/30/20 18:59 06:59 18:59 Intake Total 800 Output Total 800 800 650 Balance 0 -800 -650 Weight 90.1 kg Intake: Tube Feeding 800 Output: Urine 800 800 650 Uretheral (Pablo) 800 800 Other: Voiding Method Indwelling Catheter Indwelling Catheter Indwelling Catheter # Bowel Movements 2 - Exam GENERAL: The patient is awake and alert and is talking, not in any acute distress. Well developed, well nourished. HEENT: Pupils are round and equally reacting to light. EOMI. No scleral icterus. No conjunctival pallor. Normocephalic, atraumatic. No pharyngeal erythema. No thyromegaly. CARDIOVASCULAR: S1 and S2 present. No murmurs, rubs, or gallops. PULMONARY: Chest is clear to auscultation, no wheezing or crackles. ABDOMEN: Soft, nontender, nondistended, normoactive bowel sounds. No palpable organomegaly. PEG tube noted with no surrounding redness or swelling, no bleeding noted MUSCULOSKELETAL: No joint swelling or deformity. EXTREMITIES: No cyanosis, clubbing, or pedal edema. NEUROLOGICAL: Doesn't appear to have any focal deficits, diffusely weak SKIN: No rashes. - Labs CBC & Chem 7: 01/30/20 08:45 01/30/20 08:45 Labs: Abnormal Lab Results - Last 24 Hours (Table) 01/29/20 01/29/20 01/30/20 Range/Units 16:47 20:43 07:12 RBC (3.80-5.40) m/uL Hgb (11.4-16.0) gm/dL Hct (34.0-46.0) % RDW (11.5-15.5) % Plt Count (150-450) k/uL Neutrophils # (Manual) (1.3-7.7) k/uL Lymphocytes # (Manual) (1.0-4.8) k/uL Metamyelocytes # (Man) (0) k/uL Nucleated RBCs (0-0) /100 WBC Chloride (98-107) mmol/L BUN (7-17) mg/dL Creatinine (0.52-1.04) mg/dL Glucose (74-99) mg/dL POC Glucose (mg/dL) 144 H 172 H 146 H (75-99) mg/dL Calcium (8.4-10.2) mg/dL 01/30/20 01/30/20 01/30/20 Range/Units 08:45 08:45 11:33 RBC 2.11 L (3.80-5.40) m/uL Hgb 6.9 L* (11.4-16.0) gm/dL Hct 20.7 L (34.0-46.0) % RDW 19.5 H (11.5-15.5) % Plt Count 101 L (150-450) k/uL Neutrophils # (Manual) 7.80 H (1.3-7.7) k/uL Lymphocytes # (Manual) 0.25 L (1.0-4.8) k/uL Metamyelocytes # (Man) 0.08 H (0) k/uL Nucleated RBCs 1 H (0-0) /100 WBC Chloride 109 H (98-107) mmol/L BUN 114 H* (7-17) mg/dL Creatinine 1.84 H (0.52-1.04) mg/dL Glucose 126 H (74-99) mg/dL POC Glucose (mg/dL) 224 H (75-99) mg/dL Calcium 7.3 L (8.4-10.2) mg/dL Microbiology - Last 24 Hours (Table) 01/28/20 11:27 Blood Culture - Preliminary Blood No Growth after 48 hours 01/28/20 11:19 Blood Culture - Preliminary Blood No Growth after 48 hours Assessment and Plan Assessment: -Acute hypoxic respiratory failure: secondary to covid 19 pneumonia. Improved patient is saturating well at this time on room air -secondary bacterial pneumonia, with Haemophilus influenza -bacteremia with Haemophilus influenza completed antibiotic therapy. Patient is also on antifungal. Patient is being followed by infectious disease. Antifungal will be discontinued upon discharge -Fever: Low-grade concern for central line infection blood cultures will be obtained as mentioned above, cultures thus far are negative -An episode of GI bleed along with the PEG tube site bleeding: Secondary to Lovenox and renal failure. Patient remains on subcutaneous heparin. current hemoglobin is 6.9 with questionable bleeding noted per rectum. Surgery fo llowing and planning to undergo colonoscopy on Sunday patient is receiving a unit of PRBCs and will monitor labs closely. -Toxic encephalopathy, altered mental status: Secondary to infection, patient also has met [place] encephalopathy from mild acute abnormalities -Elevated troponin secondary to infection and renal failure -Acute kidney injury secondary to infection patient does have chronic kidney disease unable to stage chronic kidney disease as baseline is not known. -Hypernatremia due to dehydration volume depletion. Improved. D5 water discontinued and will continue free water flushes via PEG tube -Hypertension -Hyperlipidemia -Possible myoclonus: Secondary to encephalopathy, resolved at this time. -DVT prophylaxis with heparin Plan: Continue current medications. Social work following and has submitted authorization and accepted at an [facility] for continued rehab. Patient's hemoglobin was found to be 6.9 and awaiting to receive a unit of PRBCs today. Surgery is following and planning colonoscopy on Sunday once more stabilized to assess for GI bleeding. Will repeat labs and monitor closely. Patient to continue with tube feedings at this time and may also continue with one-to-one assistance with head of the bed elevated 30-45 at all times and pure honey thickened liquids as tolerated. She is maintained on room air and tolerating well. Blood cultures remain negative. Patient is afebrile. Will continue with tube feedings and currently at 40 mL per hour along with 30 mL 4 times a free water flushes. IV fluids discontinued. PT/OT following the patient has been working with them getting to the side of the bed. Further recommendations to follow. Possible discharge early next week.
--- NOTE | 2020-01-30 16:36 | PN ---
PROGRESS NOTE Patient is seen for followup for hypernatremia. Her sodium is currently at 137. She is maintained on free water down the feeding tube. Serum creatinine has improved slightly. BUN is also decreasing. PHYSICAL EXAMINATION: On examination today, blood pressure was 130/69, heart rate 78 per minute. She is afebrile. On examination, there is no edema noted in her lower extremities. Mentation is about the same. Patient does respond to simple questions at this time. Abdomen is soft, nontender. LABS: Labs show hemoglobin 6.9 today. Sodium 137, potassium 3.7, BUN 114, serum creatinine 1.84. ASSESSMENT: 1. Hypernatremia associated with free water deficit, currently improving with free water down the feeding tube. Sodium is 137 today. I will decrease the free water down the feeding tube to 100 mL q.8 hours from 200 q.6. 2. Acute kidney injury with disproportionately elevated BUN associated with underlying COVID infection. No nephrotoxic agents on board. Renal function is slightly improved. There is also a prerenal component which is improving. 3. COVID-19 pneumonia. 4. Hemophilus influenzae bacteremia, maintained on antibiotics. 5. Anemia of chronic disease, currently on Aranesp. PLAN: Decrease free water down the feeding tube to 100 mL q.8 hours from 200 q.6. Monitor electrolytes as outpatient. MMODL / IJN: [id number] /
[2020-01-30 17:00] LABS: Glucose,Whole Blood 107 mg/dL (75-99)
--- NOTE | 2020-01-30 18:12 | P.PN ---
Subjective Progress Note Date: 01/30/20 The patient is being seen in follow-up. Currently is on the medical floor. She is on oxygen at room air. Her chest x-ray is gradually cleared up. She has oropharyngeal candidiasis and the patient is currently on Eraxis. The patient is going to undergo a PEG tube insertion for enteral feeding and nutritional support. She is sleepy. She is still lethargic. No agitation. Does have some hypochloremic hyponatremia and the sodium level is up. Her blood sugar was lower earlier this morning and this was completed. She continues to have some edema in all 4 extremities and she continues to have a triple-lumen cath in her left subclavian. She is on room air oxygen for now. on today's evaluation of 01/27/2020, the patient is on 2 L of oxygen by nasal cannula. She is calm and comfortable. He is around 9900%. She remains weak and lethargic. She is still receiving Eraxis for esophageal candidiasis. The patient was having dysphagia. Patient underwent a PEG tube insertion yesterday and the procedure was successful.her sodium level is up to 149. The patient is currently on D5 water running at 100 mL an hour. She continues to have edema in lower extremity. Pablo catheter in place. The catheter is also in place. Enterofeeding may be started today.The patient was treated for a covid related pneumonia and septic shock secondary to Haemophilus influenza. On 01/28/2020, I'm seeing the patient for a follow-up. The patient is currently on room air oxygen. She is extremely weak. She is able to communicate. She is still in answering questions. She is becoming gradually more appropriate. She is on room air oxygen. No signs of any respiratory distress. PEG tube feeding was out of yesterday. She is also getting free water through the PEG tube. She is able to tolerate the feeding without any major difficulties. No nausea. No vomiting. No emesis. She is still on Eraxis for esophageal candidiasis. She is on D5 water which is running at 100 mL an hour. Follow-up electrodes are still pending from today. on 01/29/2020, the patient is being seen for a follow-up. The patient is still recovering from her Covid 19 pneumonia. She was on room air yesterday she was placed on 2 L of oxygen by nasal cannula when she is back on the mid oxygen for now and her saturations above 90%.. Shewas on D5 water running at 100 mL an hour and she is also receiving free water through an OG every. As far as her electrolytes today, the patient has aSodium 140 and his sodium has improved significantly. She has no fever. No chills. She remains profoundly weak. Her hyponatremia has recovered and the D5 water was discontinued. The acute kidney injury is also recovered and this was related to intravascular volume depletion. The main issue for now remains is had debility and profound weakness. She had esophageal candidiasis and the patient was started on Eraxis. She is on Aranesp 40 g every week. She remains on heparin subcu for DVT prophylaxis. On 01/30/2020, the patient is doing well. She is conversing. She is more interactive. She is on room air oxygen. She denies having any specific complaints. She still on free water through her PEG tube. and her BUN is at 114 with a creatinine of 1.84. The patient is slowly recovering. On today's evaluation she seems to be more active. She is able to speak longer sentences. She is more alert pH was able to answer questions appropriately to me. Her sodium level is at 137. She is also receiving enteral feeding for nutritional support. She is tolerating her diet. No nausea. No vomiting. No diarrhea. No abdominal pain. No aspiration. The plan is to send her to rehabilitation. The patient is afebrile. Her pulse ox is 98% on room air oxygen. She is able to tolerate small amounts of pured diet in conjunction with her PEG tube feeding for nutritional support. On today's evaluation hemoglobin is at 6.9 and the patient will be requiring a unit of packed RBC. Objective - Vital Signs Vital signs: Vital Signs Temp 97.9 F 01/30/20 17:35 Pulse 65 01/30/20 17:35 Resp 16 01/30/20 17:35 BP 127/77 01/30/20 17:35 Pulse Ox 99 01/30/20 17:35 Intake & Output 01/29/20 01/30/20 01/30/20 18:59 06:59 18:59 Intake Total 800 Output Total 800 800 650 Balance 0 -800 -650 Weight 90.1 kg Intake: Tube Feeding 800 Output: Urine 800 800 650 Uretheral (Pablo) 800 800 Other: Voiding Method Indwelling Catheter Indwelling Catheter Indwelling Catheter # Bowel Movements 2 - Exam GENERAL EXAM: Alert, confused, but not agitated, 75-year-old white female, on room air oxygen comfortable in no apparent distress. The patient is communicating. HEAD: Normocephalic/atraumatic. EYES: Normal reaction of pupils, equal size. Conjunctiva pink, sclera white. NOSE: Clear with pink turbinates. NG-tube has been removed THROAT: No erythema or exudates. NECK: No masses, no JVD, no thyroid enlargement, no adenopathy. CHEST: No chest wall deformity. Symmetrical expansion. LUNGS: Equal air entry with no crackles, wheeze, rhonchi or dullness. CVS: Regular rate and rhythm, normal S1 and S2, no gallops, no murmurs, no rubs ABDOMEN: Soft, nontender. No hepatosplenomegaly, normal bowel sounds, no guarding or rigidity. EXTREMITIES: No clubbing,and there is increased edema, no cyanosis, 2+ pulses and upper and lower extremities. MUSCULOSKELETAL: Global weakness in all 4 extremities and the extremities are quite edematous at this point in time. SPINE: No scoliosis or deformity SKIN: No rashes CENTRAL NERVOUS SYSTEM: No confusion on today's evaluation. The patient is able to communicate. She was aware of the year. She is able to communicate with me and speak up some longer sentences. - Labs CBC & Chem 7: 01/30/20 08:45 01/30/20 08:45 Labs: Abnormal Lab Results - Last 24 Hours (Table) 01/29/20 01/30/20 01/30/20 Range/Units 20:43 07:12 08:45 RBC 2.11 L (3.80-5.40) m/uL Hgb 6.9 L* (11.4-16.0) gm/dL Hct 20.7 L (34.0-46.0) % RDW 19.5 H (11.5-15.5) % Plt Count 101 L (150-450) k/uL Neutrophils # (Manual) 7.80 H (1.3-7.7) k/uL Lymphocytes # (Manual) 0.25 L (1.0-4.8) k/uL Metamyelocytes # (Man) 0.08 H (0) k/uL Nucleated RBCs 1 H (0-0) /100 WBC Chloride (98-107) mmol/L BUN (7-17) mg/dL Creatinine (0.52-1.04) mg/dL Glucose (74-99) mg/dL POC Glucose (mg/dL) 172 H 146 H (75-99) mg/dL Calcium (8.4-10.2) mg/dL Crossmatch 01/30/20 01/30/20 01/30/20 Range/Units 08:45 10:55 11:33 RBC (3.80-5.40) m/uL Hgb (11.4-16.0) gm/dL Hct (34.0-46.0) % RDW (11.5-15.5) % Plt Count (150-450) k/uL Neutrophils # (Manual) (1.3-7.7) k/uL Lymphocytes # (Manual) (1.0-4.8) k/uL Metamyelocytes # (Man) (0) k/uL Nucleated RBCs (0-0) /100 WBC Chloride 109 H (98-107) mmol/L BUN 114 H* (7-17) mg/dL Creatinine 1.84 H (0.52-1.04) mg/dL Glucose 126 H (74-99) mg/dL POC Glucose (mg/dL) 224 H (75-99) mg/dL Calcium 7.3 L (8.4-10.2) mg/dL Crossmatch See Detail 01/30/20 Range/Units 16:58 RBC (3.80-5.40) m/uL Hgb (11.4-16.0) gm/dL Hct (34.0-46.0) % RDW (11.5-15.5) % Plt Count (150-450) k/uL Neutrophils # (Manual) (1.3-7.7) k/uL Lymphocytes # (Manual) (1.0-4.8) k/uL Metamyelocytes # (Man) (0) k/uL Nucleated RBCs (0-0) /100 WBC Chloride (98-107) mmol/L BUN (7-17) mg/dL Creatinine (0.52-1.04) mg/dL Glucose (74-99) mg/dL POC Glucose (mg/dL) 107 H (75-99) mg/dL Calcium (8.4-10.2) mg/dL Crossmatch Microbiology - Last 24 Hours (Table) 01/28/20 11:27 Blood Culture - Preliminary Blood No Growth after 48 hours 01/28/20 11:19 Blood Culture - Preliminary Blood No Growth after 48 hours Assessment and Plan Plan: 1 Acute bilateral COVID 19 pneumonia, with secondary respiratory failure. The patient is currently on room air oxygen. She was on a combination of Decadron patient completed the course of Remdesivir and she also took convalescent plasma. she is on room air oxygen for now. She has become quite debilitated as the patient had a prolonged hospitalization. She is profoundly weak and she will need aggressive physical therapy and rehabilitation. 2 Acute hypoxic respiratory failure,recovered 3 bacteremia sepsis secondary to Haemophilus influenza, likely of a pulmonary source and the patient is currently on Rocephin 2 g every 24 hours. The patient is hemodynamically stable. this was treated. 4 SELENE improving on top of the chronic kidney disease, creatinine remains elevated 5 Non anion gap meabolic acidosis, recovered 5 altered mental status /encephalopathy, likely metabolic in nature as the patient has Covid 19 related pneumonia in addition to septicemia , improving slowlyand the patient is more appropriate. She is profoundly weak and she has generalized motor weakness 6 hypertension 7 hyperlipidemia 8 troponin leak with a preserved LV function. 9 pedal edema in all 4 extremities 10 dysphagia and the patient has oropharyngeal candidiasis and the patient is going to undergo effectively session today. 11 anemia with a drop in hemoglobin down to 6.9 and the patient will receive a unit of packed RBC. Plan Transudative packed RBC Monitor hemoglobin Aggressive physical therapy Heparin subcu for DVT prophylaxis incentive spirometer continue Eraxis for oropharyngeal candidiasis PEG insertion was successful and the patient on enteral feeding for nutritional support. Physical therapy Aspiration precautions Levemir insulin Aggressive physical therapy Discharge planning is in progress. Monitor renal function.
[2020-01-30 20:40] LABS: Glucose,Whole Blood 140 mg/dL (75-99)
[2020-01-30] MEDS: ANIDULAFUNGIN 100 MG in SODIUM CHLORIDE 0.9% 100 ML IVPB SCH (21:35)
[2020-01-30] MEDS: INSULIN DETEMIR (LEVEMIR) 100 UNIT/ML SYR SQ SCH (21:36)
--- NOTE | 2020-01-30 23:30 | PN ---
PROGRESS NOTE DATE OF SERVICE: 01/30/2020 REASON FOR FOLLOWUP: 1. Haemophilus bacteremia pneumonia. 2. Oropharyngeal candidiasis. INTERVAL HISTORY: The patient is currently afebrile. The patient is more awake and alert. She is breathing comfortably on room air. Denies having any chest pain or cough. No vomiting or diarrhea. PHYSICAL EXAMINATION: Blood pressure 133/84 with pulse of 72, temperature 98.6. She is 99% on room air. General description is an elderly female lying in bed in no distress. RESPIRATORY SYSTEM: Unlabored breathing with decreased breath sounds at the base. No wheeze. HEART: S1, S2. Regular rate and rhythm. ABDOMEN: Soft. No tenderness. LABS: Hemoglobin 6.9, white count 8.3, BUN of 114, creatinine 1.84. DIAGNOSTIC IMPRESSION AND PLAN: 1. Patient with Haemophilus influenzae bacteremia secondary to pneumonia that has been adequately treated. 2. Patient with elevated white count oropharyngeal candidiasis. She has completed her Eraxis therapy. We will monitor the patient closely off her antibiotics and antifungal. Continue with supportive care. MMODL / JACKSONN: [id number] / MTDD
[2020-01-31 07:15] LABS: Glucose,Whole Blood 140 mg/dL (75-99)
[2020-01-31] MEDS: LIDOCAINE 5% PATCH TOPICAL SCH (07:45)
[2020-01-31] MEDS: ZINC SULFATE 220 MG CAP PO SCH (07:46)
[2020-01-31] MEDS: SENNOSIDES 8.6 MG TAB PO SCH ×2 (07:46→21:19)
[2020-01-31] MEDS: ASPIRIN 81 MG PO SCH (07:46)
[2020-01-31] MEDS: CHOLECALCIFEROL 1,000 UNIT TAB PO SCH (07:47)
[2020-01-31] MEDS: METOPROLOL TARTRATE 50 MG TAB PO SCH ×2 (07:47→21:19)
[2020-01-31] MEDS: INSULIN ASPART (NovoLOG) 100 UNIT/ML VIAL SQ SCH ×4 (07:47→21:19)
[2020-01-31] MEDS: ASCORBIC ACID 500 MG TAB PO SCH ×2 (07:47→21:19)
[2020-01-31] MEDS: LACTATED RINGERS 1,000 ML IV SCH (07:47)
[2020-01-31] MEDS: HEPARIN SODIUM,PORCINE 5,000 UNIT/ML 1 ML VIAL SQ SCH ×2 (07:48→21:20)
[2020-01-31 07:52] LABS: Anisocytosis Slight; HCT 26.6 % (34.0-46.0); Hypochromasia Slight; MCHC 31.9 g/dL (31.0-37.0); MCV 100.4 fL (80.0-100.0); Macrocytosis Moderate; Platelet Count 118 k/uL (150-450); Poikilocytosis Slight; RBC 2.65 m/uL (3.80-5.40); RDW 18.6 % (11.5-15.5); WBC 6.5 k/uL (3.8-10.6)
[2020-01-31] MEDS: ALBUTEROL HFA INHALER INHALATION PRN (07:57)
[2020-01-31 08:02] LABS: HGB 8.5 gm/dL (11.4-16.0)
--- NOTE | 2020-01-31 11:35 | P.PN ---
Subjective Progress Note Date: 01/31/20 The patient is being seen in follow-up. Currently is on the medical floor. She is on oxygen at room air. Her chest x-ray is gradually cleared up. She has oropharyngeal candidiasis and the patient is currently on Eraxis. The patient is going to undergo a PEG tube insertion for enteral feeding and nutritional support. She is sleepy. She is still lethargic. No agitation. Does have some hypochloremic hyponatremia and the sodium level is up. Her blood sugar was lower earlier this morning and this was completed. She continues to have some edema in all 4 extremities and she continues to have a triple-lumen cath in her left subclavian. She is on room air oxygen for now. on today's evaluation of 01/27/2020, the patient is on 2 L of oxygen by nasal cannula. She is calm and comfortable. He is around 9900%. She remains weak and lethargic. She is still receiving Eraxis for esophageal candidiasis. The patient was having dysphagia. Patient underwent a PEG tube insertion yesterday and the procedure was successful.her sodium level is up to 149. The patient is currently on D5 water running at 100 mL an hour. She continues to have edema in lower extremity. Pablo catheter in place. The catheter is also in place. Enterofeeding may be started today.The patient was treated for a covid related pneumonia and septic shock secondary to Haemophilus influenza. On 01/28/2020, I'm seeing the patient for a follow-up. The patient is currently on room air oxygen. She is extremely weak. She is able to communicate. She is still in answering questions. She is becoming gradually more appropriate. She is on room air oxygen. No signs of any respiratory distress. PEG tube feeding was out of yesterday. She is also getting free water through the PEG tube. She is able to tolerate the feeding without any major difficulties. No nausea. No vomiting. No emesis. She is still on Eraxis for esophageal candidiasis. She is on D5 water which is running at 100 mL an hour. Follow-up electrodes are still pending from today. on 01/29/2020, the patient is being seen for a follow-up. The patient is still recovering from her Covid 19 pneumonia. She was on room air yesterday she was placed on 2 L of oxygen by nasal cannula when she is back on the mid oxygen for now and her saturations above 90%.. Shewas on D5 water running at 100 mL an hour and she is also receiving free water through an OG every. As far as her electrolytes today, the patient has aSodium 140 and his sodium has improved significantly. She has no fever. No chills. She remains profoundly weak. Her hyponatremia has recovered and the D5 water was discontinued. The acute kidney injury is also recovered and this was related to intravascular volume depletion. The main issue for now remains is had debility and profound weakness. She had esophageal candidiasis and the patient was started on Eraxis. She is on Aranesp 40 g every week. She remains on heparin subcu for DVT prophylaxis. On 01/30/2020, the patient is doing well. She is conversing. She is more interactive. She is on room air oxygen. She denies having any specific complaints. She still on free water through her PEG tube. and her BUN is at 114 with a creatinine of 1.84. The patient is slowly recovering. On today's evaluation she seems to be more active. She is able to speak longer sentences. She is more alert pH was able to answer questions appropriately to me. Her sodium level is at 137. She is also receiving enteral feeding for nutritional support. She is tolerating her diet. No nausea. No vomiting. No diarrhea. No abdominal pain. No aspiration. The plan is to send her to rehabilitation. The patient is afebrile. Her pulse ox is 98% on room air oxygen. She is able to tolerate small amounts of pured diet in conjunction with her PEG tube feeding for nutritional support. On today's evaluation hemoglobin is at 6.9 and the patient will be requiring a unit of packed RBC. 2019, the patient is much more alert. She is able to communicate. She knows her birthday that she is aware of her surroundings her condition. As mentioned earlier, she received 2 units of packed RBC and the patient had some lower GI bleed. General surgeries on the case and they're considering colonoscopy on this patient. No nausea. No vomiting. Diarrhea. Physical therapy is working with the patient and there were mostly able to sit up at the edge of the bed. Her low blood work and electrodes are still pending for now. He is receiving free water per PEG tube with 100 mL every 8 hours. No fever. No chills. She is also receiving enteral feeding at 40 mL an hour. She is also trying some honey thickened liquids. Objective - Vital Signs Vital signs: Vital Signs Temp 98.7 F 01/31/20 09:14 Pulse 69 01/31/20 09:14 Resp 17 01/31/20 09:14 BP 137/83 01/31/20 09:14 Pulse Ox 99 01/31/20 09:14 Intake & Output 01/30/20 01/31/20 01/31/20 18:59 06:59 18:59 Intake Total 310 Output Total 650 Balance -650 310 Weight 90.1 kg 93 kg Intake: Blood Product 310 Rc As-1 Unit 310 [id number] Output: Urine 650 Other: Voiding Method Indwelling Catheter Indwelling Catheter Indwelling Catheter # Bowel Movements 2 - Exam GENERAL EXAM: Alert, confused, but not agitated, 75-year-old white female, on room air oxygen comfortable in no apparent distress. The patient is communicating. HEAD: Normocephalic/atraumatic. EYES: Normal reaction of pupils, equal size. Conjunctiva pink, sclera white. NOSE: Clear with pink turbinates. NG-tube has been removed THROAT: No erythema or exudates. NECK: No masses, no JVD, no thyroid enlargement, no adenopathy. CHEST: No chest wall deformity. Symmetrical expansion. LUNGS: Equal air entry with no crackles, wheeze, rhonchi or dullness. CVS: Regular rate and rhythm, normal S1 and S2, no gallops, no murmurs, no rubs ABDOMEN: Soft, nontender. No hepatosplenomegaly, normal bowel sounds, no guarding or rigidity. EXTREMITIES: No clubbing,and there is increased edema, no cyanosis, 2+ pulses and upper and lower extremities. MUSCULOSKELETAL: Global weakness in all 4 extremities and the extremities are quite edematous at this point in time. SPINE: No scoliosis or deformity SKIN: No rashes CENTRAL NERVOUS SYSTEM: No confusion on today's evaluation. The patient is able to communicate. She was aware of the year. She is able to communicate with me and speak up some longer sentences. - Labs CBC & Chem 7: 01/31/20 06:59 01/30/20 08:45 Labs: Abnormal Lab Results - Last 24 Hours (Table) 01/30/20 01/30/20 01/30/20 Range/Units 10:55 11:33 16:58 RBC (3.80-5.40) m/uL Hgb (11.4-16.0) gm/dL Hct (34.0-46.0) % MCV (80.0-100.0) fL RDW (11.5-15.5) % Plt Count (150-450) k/uL POC Glucose (mg/dL) 224 H 107 H (75-99) mg/dL Crossmatch See Detail 01/30/20 01/31/20 01/31/20 Range/Units 20:38 06:59 07:13 RBC 2.65 L (3.80-5.40) m/uL Hgb 8.5 L D (11.4-16.0) gm/dL Hct 26.6 L (34.0-46.0) % MCV 100.4 H (80.0-100.0) fL RDW 18.6 H (11.5-15.5) % Plt Count 118 L (150-450) k/uL POC Glucose (mg/dL) 140 H 140 H (75-99) mg/dL Crossmatch Microbiology - Last 24 Hours (Table) 01/28/20 11:27 Blood Culture - Preliminary Blood No Growth after 48 hours 01/28/20 11:19 Blood Culture - Preliminary Blood No Growth after 48 hours Assessment and Plan Plan: 1 Acute bilateral COVID 19 pneumonia, with secondary respiratory failure. The patient is currently on room air oxygen. She was on a combination of Decadron patient completed the course of Remdesivir and she also took convalescent pl asma. she is on room air oxygen for now. She has become quite debilitated as the patient had a prolonged hospitalization. She is profoundly weak and she will need aggressive physical therapy and rehabilitation. She is progressively getting more strong. Mentally and neurologically, she has recovered and she is alert and oriented. She is profoundly weak and she needs aggressive physical therapy. 2 Acute hypoxic respiratory failure,recovered 3 bacteremia sepsis secondary to Haemophilus influenza, likely of a pulmonary source and the patient is currently on Rocephin 2 g every 24 hours. The patient is hemodynamically stable. this was treated. 4 SELENE improving on top of the chronic kidney disease, creatinine remains elevated, and the patient is receiving free water 5 Non anion gap meabolic acidosis, recovered 5 altered mental status /encephalopathy, likely metabolic in nature as the patient has Covid 19 related pneumonia in addition to septicemia , improving slowlyand the patient is more appropriate. She is profoundly weak and she has generalized motor weakness 6 hypertension 7 hyperlipidemia 8 troponin leak with a preserved LV function. 9 pedal edema in all 4 extremities 10 dysphagia and the patient has oropharyngeal candidiasis and the patient is going to undergo effectively session today. 11 anemia with a drop in hemoglobin down to 6.9 and the patient will receive a unit of packed RBC. The follow-up hemoglobin is at 8.5. Plan Monitor hemoglobin and watch for any rectal bleeding, this is most likely hemorrhoidal. Aggressive physical therapy Heparin subcu for DVT prophylaxis incentive spirometer continue Eraxis for oropharyngeal candidiasis PEG enteral feeding for nutritional support. Free water through the PEG tube Awaiting repeat electrolytes from today Physical therapy Aspiration precautions Levemir insulin Aggressive physical therapy Discharge planning is in progress.
[2020-01-31 11:45] LABS: Glucose,Whole Blood 135 mg/dL (75-99)
--- NOTE | 2020-01-31 12:31 | P.PN ---
Progress Note - Text Progress Note Date: 01/31/20 Patient remained stable. She still has evidence of GI bleed. She will undergo last Sunday.
[2020-01-31 13:28] LABS: Band Neutrophils % 10 %; Eosinophils # (M) 0.07 k/uL (0-0.7); Monocytes # (M) 0.07 k/uL (0-1.0); Neutrophils % (M) 87 %; Nucleated Red Blood Cells 0 /100 WBC (0-0); Polychromasia Present; Total Cells Counted 200
--- NOTE | 2020-01-31 14:49 | P.PN ---
Subjective Progress Note Date: 01/31/20 Follow-up for acute kidney injury. Objective - Vital Signs Vital signs: Vital Signs Temp 98.8 F 01/31/20 14:17 Pulse 70 01/31/20 14:17 Resp 18 01/31/20 14:17 BP 136/83 01/31/20 14:17 Pulse Ox 100 01/31/20 14:17 Intake & Output 01/30/20 01/31/20 01/31/20 18:59 06:59 18:59 Intake Total 310 Output Total 650 Balance -650 310 Weight 90.1 kg 93 kg Intake: Blood Product 310 Rc As-1 Unit 310 [id number] Output: Urine 650 Other: Voiding Method Indwelling Catheter Indwelling Catheter Indwelling Catheter # Bowel Movements 2 - Exam Limited secondary to isolation from COVID 19 - Labs CBC & Chem 7: 01/31/20 06:59 01/30/20 08:45 Labs: Abnormal Lab Results - Last 24 Hours (Table) 01/30/20 01/30/20 01/30/20 Range/Units 10:55 16:58 20:38 RBC (3.80-5.40) m/uL Hgb (11.4-16.0) gm/dL Hct (34.0-46.0) % MCV (80.0-100.0) fL RDW (11.5-15.5) % Plt Count (150-450) k/uL Lymphocytes # (Manual) (1.0-4.8) k/uL POC Glucose (mg/dL) 107 H 140 H (75-99) mg/dL Crossmatch See Detail 01/31/20 01/31/20 01/31/20 Range/Units 06:59 07:13 11:42 RBC 2.65 L (3.80-5.40) m/uL Hgb 8.5 L D (11.4-16.0) gm/dL Hct 26.6 L (34.0-46.0) % MCV 100.4 H (80.0-100.0) fL RDW 18.6 H (11.5-15.5) % Plt Count 118 L (150-450) k/uL Lymphocytes # (Manual) 0.20 L (1.0-4.8) k/uL POC Glucose (mg/dL) 140 H 135 H (75-99) mg/dL Crossmatch Microbiology - Last 24 Hours (Table) 01/28/20 11:27 Blood Culture - Preliminary Blood No Growth after 72 hours 01/28/20 11:19 Blood Culture - Preliminary Blood No Growth after 72 hours Assessment and Plan Assessment: #1 acute kidney injury secondary to prerenal physiology. Disproportionate rise in BUNs compared to creatinine. #2 hyponatremia resolved. #3 COVID-19 pneumonia #4 diabetes uncontrolled Plan: #1 no new labs today. Repeat labs tomorrow. Renal function stable.
[2020-01-31 16:28] LABS: Glucose,Whole Blood 143 mg/dL (75-99)
[2020-01-31 20:52] LABS: Glucose,Whole Blood 135 mg/dL (75-99)
[2020-01-31] MEDS: INSULIN DETEMIR (LEVEMIR) 100 UNIT/ML SYR SQ SCH (21:19)
--- NOTE | 2020-01-31 23:18 | PN ---
PROGRESS NOTE DATE OF SERVICE: 01/31/2020 REASON FOR FOLLOWUP: Leukocytosis. INTERVAL HISTORY: The patient is currently afebrile. The patient is breathing comfortably. She seems to be more awake, alert. Denies having any chest pain or cough. Has been tolerating her tube feeds. No vomiting or diarrhea has been reported by nursing staff. PHYSICAL EXAMINATION: Her blood pressure is 117/63 with a pulse of 88, temperature 98.8. She is 100% on room air. General description is an elderly female lying in bed in no distress. Respiratory system: Unlabored breathing, clear to auscultation anteriorly. Heart S1, S2. Regular rate and rhythm. ABDOMEN: Soft, no tenderness. LABS: Hemoglobin 8.3, white count 6.5. BUN of 14, creatinine is 1.4. DIAGNOSTIC IMPRESSION AND PLAN: 1. Patient with Haemophilus influenzae bacteremia secondary to pneumonia adequately treated completed antibiotic therapy. 2. Patient with oropharyngeal candidiasis. Continue Eraxis therapy. White count is currently normal. Continue to monitor the patient closely off antibiotics and antifungal and continue supportive care. MMODL / IJN: [id number] /
--- NOTE | 2020-01-31 23:21 | P.PN ---
Subjective Progress Note Date: 01/31/20 Principal diagnosis: Acute hypoxic respiratory failure: secondary to covid 19 pneumonia Secondary bacterial pneumonia Bacteremia with Haemophilus influenza Acute renal failure/chronic kidney disease Elevated troponin secondary to infection and renal failure 74-year-old female is admitted for hypoxia elevated troponins found to have positive Covid. Patient was transferred from outside hospital. Patient at baseline apparently is awake and alert. Patient is oriented 1 at this time. Patient did have fever and shortness of breath because of which patient was sent in here. Patient has elevated urine creatinine of 2.5 baseline is not available but patient apparently has chronic kidney disease. Does follow with a gyn physician as an outpatient. Patient is found to have mildly elevated troponins of 0.2-3. Patient denied any chest pain although patient is extremely poor historian because of her confusion and hearing problems. His blood cult ures from the other hospital came back positive for gram-positive cocci unsure whether it's clusters sore repairs. Patient will be started on vancomycin infectious disease will be consulted may need tube be switched to daptomycin, considering her kidney function. 01/17/2020, Patient remains in the ICU, overall pulmonary status is marginal, continues to have worsening infiltrates in the left lung, remains on 40% FiO2 and 40 L flow via airvo. Patient is also receiving enteral feeding via a nasogastric tube. Surprisingly the patient is holding, she is not getting any better and she is not getting any worse. Chest x-ray again shows significant infiltrate involving the left lung. WBC count today is 17 hemoglobin is 10.5, d-dimer is 1.42. Electrodes are normal renal profile showed a BUN of 72 creatinine of 1.30. Improving over the last few days. Neurologically, the patient is about the same 01/18/2020, Patient remains in the ICU, on high flow airvo FiO2 of 40% and 35 L/m flow, saturating at 97%, seems to be a bit more awake today, however she seems to be generally weak. Remains on antibiotics/Rocephin. In addition to her Covid 19 pneumonitis, patient had blood cultures positive for Haemophilus influenzae. Overall the pa tient is improving, but her improvement seems to be relatively slow. Basic metabolic profile is normal BUN is 77 creatinine is 1.27, steady improvement. Continues to have leukocytosis with WBC count of 28.6 hemoglobin is 10.6. Chest x-ray continues to show significant infiltrate in the left lung, however it is improved compared to previous x-rays. 01/31/2020 the patient is seen and evaluated in room at bedside; much more alert. She is able to communicate. Patient received 2 units of packed RBC and the patient had some lower GI bleed. General surgeries on the case and they're considering colonoscopy on this patient. No nausea. No vomiting. Diarrhea. Physical therapy is working with the patient and there were mostly able to sit up at the edge of the bed. Her low blood work and electrodes are still pending for now. He is receiving free water per PEG tube with 100 mL every 8 hours. No fever. No chills. She is also receiving enteral feeding at 40 mL an hour. She is also trying some honey thickened liquids. Objective - Vital Signs Vital signs: Vital Signs Temp 98.8 F 01/31/20 14:17 Pulse 70 01/31/20 14:17 Resp 18 01/31/20 14:17 BP 136/83 01/31/20 14:17 Pulse Ox 100 01/31/20 14:17 Intake & Output 01/30/20 01/31/20 01/31/20 18:59 06:59 18:59 Intake Total 310 Output Total 650 Balance -650 310 Weight 90.1 kg 93 kg Intake: Blood Product 310 Rc As-1 Unit 310 [id number] Output: Urine 650 Other: Voiding Method Indwelling Catheter Indwelling Catheter Indwelling Catheter # Bowel Movements 2 - Exam GENERAL: Drowsy arousable, not in any acute distress. Well developed, well nourished. Patient has nonessential tremor, possibility of myoclonus, much better. HEENT: Pupils are round and equally reacting to light. EOMI. No scleral icterus. No conjunctival pallor. Normocephalic, atraumatic. No pharyngeal erythema. No thyromegaly. CARDIOVASCULAR: S1 and S2 present. No murmurs, rubs, or gallops. PULMONARY: Bilateral crackles and rhonchi diffusely ABDOMEN: Soft, nontender, nondistended, normoactive bowel sounds. No palpable organomegaly. MUSCULOSKELETAL: No joint swelling or deformity. EXTREMITIES: No cyanosis, clubbing, or pedal edema. NEUROLOGICAL: Gross neurological examination did not reveal any focal deficits. - Labs CBC & Chem 7: 01/31/20 06:59 01/30/20 08:45 Labs: Abnormal Lab Results - Last 24 Hours (Table) 01/30/20 01/30/20 01/30/20 Range/Units 10:55 16:58 20:38 RBC (3.80-5.40) m/uL Hgb (11.4-16.0) gm/dL Hct (34.0-46.0) % MCV (80.0-100.0) fL RDW (11.5-15.5) % Plt Count (150-450) k/uL Lymphocytes # (Manual) (1.0-4.8) k/uL POC Glucose (mg/dL) 107 H 140 H (75-99) mg/dL Crossmatch See Detail 01/31/20 01/31/20 01/31/20 Range/Units 06:59 07:13 11:42 RBC 2.65 L (3.80-5.40) m/uL Hgb 8.5 L D (11.4-16.0) gm/dL Hct 26.6 L (34.0-46.0) % MCV 100.4 H (80.0-100.0) fL RDW 18.6 H (11.5-15.5) % Plt Count 118 L (150-450) k/uL Lymphocytes # (Manual) 0.20 L (1.0-4.8) k/uL POC Glucose (mg/dL) 140 H 135 H (75-99) mg/dL Crossmatch Microbiology - Last 24 Hours (Table) 01/28/20 11:27 Blood Culture - Preliminary Blood No Growth after 72 hours 01/28/20 11:19 Blood Culture - Preliminary Blood No Growth after 72 hours Assessment and Plan Assessment: -Acute hypoxic respiratory failure: secondary to covid 19 pneumonia. Patient was started on Decadron and completed Remdesivir patient is presently on a 45L of oxygen via Airvo. continue with NG tube feedings with Glucerna. Patient was started on antifungals cussing that she has fever on antibiotics. Patient has worsening leukocytosis as well and patient is being followed by infectious disease - secondary bacterial pneumonia , patient has bacteremia with Haemophilus influenza, patient is on Rocephin presently. Repeat blood cultures are negative - bacteremia: -Toxic encephalopathy, altered mental status: Secondary to infection, EKG did not show any seizure activity patient still has some tremors -Elevated troponin secondary to infection and renal failure -Possible Acute renal failure patient does have chronic kidney disease unable to stage chronic kidney disease is at baseline is not known. Patient will continued on IV fluids once serum creatinine can you to improve -Hypertension: Patient is presently on clonidine patch. -Hyperlipidemia Possible myoclonus: Secondary to encephalopathy, neurology evaluated the patient. -DVT prophylaxis with heparin
[2020-02-01 06:22] LABS: Anisocytosis Slight; HCT 23.7 % (34.0-46.0); HGB 7.8 gm/dL (11.4-16.0); Hypochromasia Slight; MCH 32.9 pg (25.0-35.0); MCHC 32.9 g/dL (31.0-37.0); Macrocytosis Moderate; Mean Platelet Volume 9.7; Platelet Count 105 k/uL (150-450); Poikilocytosis Slight; RBC 2.37 m/uL (3.80-5.40); RDW 18.3 % (11.5-15.5)
[2020-02-01 06:48] LABS: Band Neutrophils % 23 %; Eosinophils # (M) 0.12 k/uL (0-0.7); Lymphocytes # (M) 0.24 k/uL (1.0-4.8); Metamyelocytes # (M) 0.06 k/uL (0); Metamyelocytes % 1 %; Monocytes # (M) 0.18 k/uL (0-1.0); Neutrophils % (M) 67 %; Nucleated Red Blood Cells 0 /100 WBC (0-0); Total Cells Counted 200
[2020-02-01 06:49] LABS: Anisocytosis (M) Present; Poikilocytosis (M) Present; Polychromasia Present
[2020-02-01 06:56] LABS: Glucose,Whole Blood 189 mg/dL (75-99)
[2020-02-01] MEDS: CHOLECALCIFEROL 1,000 UNIT TAB PO SCH (08:15)
[2020-02-01] MEDS: INSULIN ASPART (NovoLOG) 100 UNIT/ML VIAL SQ SCH ×4 (08:15→22:20)
[2020-02-01] MEDS: METOPROLOL TARTRATE 50 MG TAB PO SCH ×2 (08:15→22:22)
[2020-02-01] MEDS: ZINC SULFATE 220 MG CAP PO SCH (08:15)
[2020-02-01] MEDS: HEPARIN SODIUM,PORCINE 5,000 UNIT/ML 1 ML VIAL SQ SCH ×2 (08:16→22:20)
[2020-02-01] MEDS: ASPIRIN 81 MG PO SCH (08:16)
[2020-02-01] MEDS: SENNOSIDES 8.6 MG TAB PO SCH ×2 (08:16→22:20)
[2020-02-01] MEDS: ALBUTEROL HFA INHALER INHALATION PRN (08:19)
[2020-02-01] MEDS: ASCORBIC ACID 500 MG TAB PO SCH ×2 (09:05→22:20)
[2020-02-01] MEDS: LIDOCAINE 5% PATCH TOPICAL SCH (09:05)
[2020-02-01] MEDS: LACTATED RINGERS 1,000 ML IV SCH (09:06)
[2020-02-01] MEDS ORDERED: PEG 3350-NA SULF,BICARB,CL/KCL 4,000 ML BOTTLE PEG/G-TUBE ONE (10:00)
[2020-02-01 10:28] LABS: African American GFR (CKD) 33.1 (60.0-200.0); Anion Gap 6.9 mmol/L (4.00-12.00); BUN/Creat Ratio 68.24 Ratio (12.00-20.00); Calcium 7.5 mg/dL (8.7-10.3); Carbon Dioxide 25.1 mmol/L (21.6-31.8); Non-African American GFR(CKD) 28.6 (60.0-200.0); Potassium 4.3 mmol/L (3.5-5.5)
--- NOTE | 2020-02-01 11:24 | P.PN ---
Subjective Progress Note Date: 02/01/20 The patient is being seen in follow-up. Currently is on the medical floor. She is on oxygen at room air. Her chest x-ray is gradually cleared up. She has oropharyngeal candidiasis and the patient is currently on Eraxis. The patient is going to undergo a PEG tube insertion for enteral feeding and nutritional support. She is sleepy. She is still lethargic. No agitation. Does have some hypochloremic hyponatremia and the sodium level is up. Her blood sugar was lower earlier this morning and this was completed. She continues to have some edema in all 4 extremities and she continues to have a triple-lumen cath in her left subclavian. She is on room air oxygen for now. on today's evaluation of 01/27/2020, the patient is on 2 L of oxygen by nasal cannula. She is calm and comfortable. He is around 9900%. She remains weak and lethargic. She is still receiving Eraxis for esophageal candidiasis. The patient was having dysphagia. Patient underwent a PEG tube insertion yesterday and the procedure was successful.her sodium level is up to 149. The patient is currently on D5 water running at 100 mL an hour. She continues to have edema in lower extremity. Pablo catheter in place. The catheter is also in place. Enterofeeding may be started today.The patient was treated for a covid related pneumonia and septic shock secondary to Haemophilus influenza. On 01/28/2020, I'm seeing the patient for a follow-up. The patient is currently on room air oxygen. She is extremely weak. She is able to communicate. She is still in answering questions. She is becoming gradually more appropriate. She is on room air oxygen. No signs of any respiratory distress. PEG tube feeding was out of yesterday. She is also getting free water through the PEG tube. She is able to tolerate the feeding without any major difficulties. No nausea. No vomiting. No emesis. She is still on Eraxis for esophageal candidiasis. She is on D5 water which is running at 100 mL an hour. Follow-up electrodes are still pending from today. on 01/29/2020, the patient is being seen for a follow-up. The patient is still recovering from her Covid 19 pneumonia. She was on room air yesterday she was placed on 2 L of oxygen by nasal cannula when she is back on the mid oxygen for now and her saturations above 90%.. Shewas on D5 water running at 100 mL an hour and she is also receiving free water through an OG every. As far as her electrolytes today, the patient has aSodium 140 and his sodium has improved significantly. She has no fever. No chills. She remains profoundly weak. Her hyponatremia has recovered and the D5 water was discontinued. The acute kidney injury is also recovered and this was related to intravascular volume depletion. The main issue for now remains is had debility and profound weakness. She had esophageal candidiasis and the patient was started on Eraxis. She is on Aranesp 40 g every week. She remains on heparin subcu for DVT prophylaxis. On 01/30/2020, the patient is doing well. She is conversing. She is more interactive. She is on room air oxygen. She denies having any specific complaints. She still on free water through her PEG tube. and her BUN is at 114 with a creatinine of 1.84. The patient is slowly recovering. On today's evaluation she seems to be more active. She is able to speak longer sentences. She is more alert pH was able to answer questions appropriately to me. Her sodium level is at 137. She is also receiving enteral feeding for nutritional support. She is tolerating her diet. No nausea. No vomiting. No diarrhea. No abdominal pain. No aspiration. The plan is to send her to rehabilitation. The patient is afebrile. Her pulse ox is 98% on room air oxygen. She is able to tolerate small amounts of pured diet in conjunction with her PEG tube feeding for nutritional support. On today's evaluation hemoglobin is at 6.9 and the patient will be requiring a unit of packed RBC. 2019, the patient is much more alert. She is able to communicate. She knows her birthday that she is aware of her surroundings her condition. As mentioned earlier, she received 2 units of packed RBC and the patient had some lower GI bleed. General surgeries on the case and they're considering colonoscopy on this patient. No nausea. No vomiting. Diarrhea. Physical therapy is working with the patient and there were mostly able to sit up at the edge of the bed. Her low blood work and electrodes are still pending for now. He is receiving free water per PEG tube with 100 mL every 8 hours. No fever. No chills. She is also receiving enteral feeding at 40 mL an hour. She is also trying some honey thickened liquids. On 02/01/2020, the patient remains essentially the same. No signs of any GI bleed. She received a total of 2 units of fresh RBC. Her current hemoglobin is at 7.8. She is extensively undergoing a colonoscopy tomorrow. She remains on free water supplements. Affect 200 every 8 hours. Her BUN is still elevated at 116. Creatinine slightly low down to 1.7. Sodium level is elevated at 146. The patient is still receiving enteral feeding for a PEG tube for nutritional support. As mentioned earlier, she is more interactive and alert and awake and she's communicating freely. No mental status. There is global weakness and debility as a result of her prolonged hospitalization and respiratory failure secondary to Covid 19 related pneumonia. However, she recovered and she is currently on room air oxygen. Objective - Vital Signs Vital signs: Vital Signs Temp 97.5 F L 02/01/20 09:27 Pulse 64 02/01/20 09:27 Resp 17 02/01/20 09:27 BP 99/58 02/01/20 09:27 Pulse Ox 100 02/01/20 09:27 Intake & Output 01/31/20 02/01/20 02/01/20 18:59 06:59 18:59 Output Total 1400 Balance -1400 Weight 91 kg Output: Urine 1400 Other: Voiding Method Indwelling Catheter Indwelling Catheter Indwelling Catheter # Bowel Movements 1 - Exam GENERAL EXAM: Alert, confused, but not agitated, 75-year-old white female, on room air oxygen comfortable in no apparent distress. The patient is communicating. HEAD: Normocephalic/atraumatic. EYES: Normal reaction of pupils, equal size. Conjunctiva pink, sclera white. NOSE: Clear with pink turbinates. NG-tube has been removed THROAT: No erythema or exudates. NECK: No masses, no JVD, no thyroid enlargement, no adenopathy. CHEST: No chest wall deformity. Symmetrical expansion. LUNGS: Equal air entry with no crackles, wheeze, rhonchi or dullness. CVS: Regular rate and rhythm, normal S1 and S2, no gallops, no murmurs, no rubs ABDOMEN: Soft, nontender. No hepatosplenomegaly, normal bowel sounds, no guarding or rigidity. EXTREMITIES: No clubbing,and there is increased edema, no cyanosis, 2+ pulses and upper and lower extremities. MUSCULOSKELETAL: Global weakness in all 4 extremities and the extremities are quite edematous at this point in time. SPINE: No scoliosis or deformity SKIN: No rashes CENTRAL NERVOUS SYSTEM: No confusion on today's evaluation. The patient is able to communicate. She was aware of the year. She is able to communicate with me and speak up some longer sentences. - Labs CBC & Chem 7: 02/01/20 06:18 02/01/20 06:18 Labs: Abnormal Lab Results - Last 24 Hours (Table) 01/31/20 01/31/20 01/31/20 Range/Units 06:59 11:42 16:26 RBC (3.80-5.40) m/uL Hgb (11.4-16.0) gm/dL Hct (34.0-46.0) % RDW (11.5-15.5) % Plt Count (150-450) k/uL Lymphocytes # (Manual) 0.20 L (1.0-4.8) k/uL Metamyelocytes # (Man) (0) k/uL Sodium (135-145) mmol/L Chloride (96-109) mmol/L BUN (9.0-27.0) mg/dL Creatinine (0.6-1.5) mg/dL Est GFR (CKD-EPI)AfAm (60.0-200.0) Est GFR (CKD-EPI)NonAf (60.0-200.0) BUN/Creatinine Ratio (12.00-20.00) Ratio Glucose (70-110) mg/dL POC Glucose (mg/dL) 135 H 143 H (75-99) mg/dL Calcium (8.7-10.3) mg/dL 01/31/20 02/01/20 02/01/20 Range/Units 20:51 06:18 06:18 RBC 2.37 L (3.80-5.40) m/uL Hgb 7.8 L (11.4-16.0) gm/dL Hct 23.7 L (34.0-46.0) % RDW 18.3 H (11.5-15.5) % Plt Count 105 L (150-450) k/uL Lymphocytes # (Manual) 0.24 L (1.0-4.8) k/uL Metamyelocytes # (Man) 0.06 H (0) k/uL Sodium 146 H (135-145) mmol/L Chloride 114 H (96-109) mmol/L BUN 116.0 H* (9.0-27.0) mg/dL Creatinine 1.7 H (0.6-1.5) mg/dL Est GFR (CKD-EPI)AfAm 33.1 L (60.0-200.0) Est GFR (CKD-EPI)NonAf 28.6 L (60.0-200.0) BUN/Creatinine Ratio 68.24 H (12.00-20.00) Ratio Glucose 140 H (70-110) mg/dL POC Glucose (mg/dL) 135 H (75-99) mg/dL Calcium 7.5 L (8.7-10.3) mg/dL 02/01/20 Range/Units 06:53 RBC (3.80-5.40) m/uL Hgb (11.4-16.0) gm/dL Hct (34.0-46.0) % RDW (11.5-15.5) % Plt Count (150-450) k/uL Lymphocytes # (Manual) (1.0-4.8) k/uL Metamyelocytes # (Man) (0) k/uL Sodium (135-145) mmol/L Chloride (96-109) mmol/L BUN (9.0-27.0) mg/dL Creatinine (0.6-1.5) mg/dL Est GFR (CKD-EPI)AfAm (60.0-200.0) Est GFR (CKD-EPI)NonAf (60.0-200.0) BUN/Creatinine Ratio (12.00-20.00) Ratio Glucose (70-110) mg/dL POC Glucose (mg/dL) 189 H (75-99) mg/dL Calcium (8.7-10.3) mg/dL Microbiology - Last 24 Hours (Table) 01/28/20 11:27 Blood Culture - Preliminary Blood No Growth after 72 hours 01/28/20 11:19 Blood Culture - Preliminary Blood No Growth after 72 hours Assessment and Plan Plan: 1 Acute bilateral COVID 19 pneumonia, with secondary respiratory failure. The patient is currently on room air oxygen. She was on a combination of Decadron patient completed the course of Remdesivir and she also took convalescent plasma. she is on room air oxygen for now. She has become quite debilitated as the patient had a prolonged hospitalization. She is profoundly weak and she will need aggressive physical therapy and rehabilitation. She is progressively getting more strong. Mentally and neurologically, she has recovered and she is alert and oriented. She is profoundly weak and she needs aggressive physical therapy. 2 Acute hypoxic respiratory failure,recovered, currently on room air oxygen 3 bacteremia sepsis secondary to Haemophilus influenza, likely of a pulmonary source and the patient is currently on Rocephin 2 g every 24 hours. The patient is hemodynamically stable. this was treated. 4 SELENE improving on top of the chronic kidney disease, creatinine remains elevated, and the patient is receiving free water, BUN is still elevated and the creatinine is slightly improved 5 Non anion gap meabolic acidosis, recovered 5 altered mental status /encephalopathy, likely metabolic in nature as the patient has Covid 19 related pneumonia in addition to septicemia , improving slowlyand the patient is more appropriate. She is profoundly weak and she has generalized motor weakness. She has a normal mental status for now. 6 hypertension 7 hyperlipidemia 8 troponin leak with a preserved LV function. 9 pedal edema in all 4 extremities 10 dysphagia and the patient has oropharyngeal candidiasis and the patient is going to undergo effectively session today. 11 anemia with a drop in hemoglobin down to 6.9 and the patient will receive a unit of packed RBC. The follow-up hemoglobin is at 7.8. Plan Monitor hemoglobin and watch for any rectal bleeding, this is most likely hemorrhoidal. Patient is being considered for a colonoscopy tomorrow. I do not see the immediate need for this intervention. Hemoglobin stable and the patient received a unit of packed RBC yesterday. Hemoglobin today is at 7.8. Aggressive physical therapy is needed in this patient to recover some of her strength. Her mental status within normal limits. Heparin subcu for DVT prophylaxis incentive spirometer continue Eraxis for oropharyngeal candidiasis PEG enteral feeding for nutritional support. Free water through the PEG tube Awaiting repeat electrolytes from today Physical therapy Aspiration precautions Levemir insulin Aggressive physical therapy. Monitor renal function and electrolytes. Discharge planning is in progress.
--- NOTE | 2020-02-01 11:40 | P.PN ---
Progress Note - Text Progress Note Date: 02/01/20 Patient remained stable. Her PEG tube site is clean. Patient's will be scheduled for colonoscopy tomorrow.
[2020-02-01 11:47] LABS: Glucose,Whole Blood 140 mg/dL (75-99)
--- NOTE | 2020-02-01 13:27 | P.PN ---
Subjective Progress Note Date: 02/01/20 Follow-up for acute kidney injury. Objective - Vital Signs Vital signs: Vital Signs Temp 97.5 F L 02/01/20 09:27 Pulse 64 02/01/20 09:27 Resp 17 02/01/20 09:27 BP 99/58 02/01/20 09:27 Pulse Ox 100 02/01/20 09:27 Intake & Output 01/31/20 02/01/20 02/01/20 18:59 06:59 18:59 Output Total 1400 Balance -1400 Weight 91 kg 89.5 kg Output: Urine 1400 Other: Voiding Method Indwelling Catheter Indwelling Catheter Indwelling Catheter # Bowel Movements 1 - Exam Limited secondary to isolation from COVID 19 - Labs CBC & Chem 7: 02/01/20 06:18 02/01/20 06:18 Labs: Abnormal Lab Results - Last 24 Hours (Table) 01/31/20 01/31/20 01/31/20 Range/Units 06:59 16:26 20:51 RBC (3.80-5.40) m/uL Hgb (11.4-16.0) gm/dL Hct (34.0-46.0) % RDW (11.5-15.5) % Plt Count (150-450) k/uL Lymphocytes # (Manual) 0.20 L (1.0-4.8) k/uL Metamyelocytes # (Man) (0) k/uL Sodium (135-145) mmol/L Chloride (96-109) mmol/L BUN (9.0-27.0) mg/dL Creatinine (0.6-1.5) mg/dL Est GFR (CKD-EPI)AfAm (60.0-200.0) Est GFR (CKD-EPI)NonAf (60.0-200.0) BUN/Creatinine Ratio (12.00-20.00) Ratio Glucose (70-110) mg/dL POC Glucose (mg/dL) 143 H 135 H (75-99) mg/dL Calcium (8.7-10.3) mg/dL 02/01/20 02/01/20 02/01/20 Range/Units 06:18 06:18 06:53 RBC 2.37 L (3.80-5.40) m/uL Hgb 7.8 L (11.4-16.0) gm/dL Hct 23.7 L (34.0-46.0) % RDW 18.3 H (11.5-15.5) % Plt Count 105 L (150-450) k/uL Lymphocytes # (Manual) 0.24 L (1.0-4.8) k/uL Metamyelocytes # (Man) 0.06 H (0) k/uL Sodium 146 H (135-145) mmol/L Chloride 114 H (96-109) mmol/L BUN 116.0 H* (9.0-27.0) mg/dL Creatinine 1.7 H (0.6-1.5) mg/dL Est GFR (CKD-EPI)AfAm 33.1 L (60.0-200.0) Est GFR (CKD-EPI)NonAf 28.6 L (60.0-200.0) BUN/Creatinine Ratio 68.24 H (12.00-20.00) Ratio Glucose 140 H (70-110) mg/dL POC Glucose (mg/dL) 189 H (75-99) mg/dL Calcium 7.5 L (8.7-10.3) mg/dL 02/01/20 Range/Units 11:45 RBC (3.80-5.40) m/uL Hgb (11.4-16.0) gm/dL Hct (34.0-46.0) % RDW (11.5-15.5) % Plt Count (150-450) k/uL Lymphocytes # (Manual) (1.0-4.8) k/uL Metamyelocytes # (Man) (0) k/uL Sodium (135-145) mmol/L Chloride (96-109) mmol/L BUN (9.0-27.0) mg/dL Creatinine (0.6-1.5) mg/dL Est GFR (CKD-EPI)AfAm (60.0-200.0) Est GFR (CKD-EPI)NonAf (60.0-200.0) BUN/Creatinine Ratio (12.00-20.00) Ratio Glucose (70-110) mg/dL POC Glucose (mg/dL) 140 H (75-99) mg/dL Calcium (8.7-10.3) mg/dL Microbiology - Last 24 Hours (Table) 12/09/20 11:27 Blood Culture - Preliminary Blood No Growth after 72 hours 01/28/20 11:19 Blood Culture - Preliminary Blood No Growth after 72 hours Assessment and Plan Assessment: #1 acute kidney injury secondary to prerenal physiology. Disproportionate rise in BUNs compared to creatinine. #2 hyponatremia resolved. #3 COVID-19 pneumonia #4 diabetes uncontrolled Plan: #1 add free water 30 ML's an hour via PEG tube. #2 repeat labs in the morning #3 avoid nephrotoxic agents
[2020-02-01 16:50] LABS: Glucose,Whole Blood 68 mg/dL (75-99)
[2020-02-01] MEDS ORDERED: DEXTROSE 50% SYRINGE 50 ML IVP STA (16:52)
[2020-02-01] MEDS: DEXTROSE 5%-0.9% NACL 1,000 ML IV SCH (16:58)
[2020-02-01 17:04] LABS: Glucose,Whole Blood 125 mg/dL (75-99)
[2020-02-01 21:09] LABS: Glucose,Whole Blood 110 mg/dL (75-99)
[2020-02-01 21:09] LABS: Glucose,Whole Blood 106 mg/dL (75-99)
[2020-02-01] MEDS: INSULIN DETEMIR (LEVEMIR) 100 UNIT/ML SYR SQ SCH (22:20)
--- NOTE | 2020-02-01 22:33 | P.PN ---
Subjective Progress Note Date: 02/01/20 Principal diagnosis: Acute hypoxic respiratory failure: secondary to covid 19 pneumonia Secondary bacterial pneumonia Bacteremia with Haemophilus influenza Acute renal failure/chronic kidney disease Elevated troponin secondary to infection and renal failure 74-year-old female is admitted for hypoxia elevated troponins found to have positive Covid. Patient was transferred from outside hospital. Patient at baseline apparently is awake and alert. Patient is oriented 1 at this time. Patient did have fever and shortness of breath because of which patient was sent in here. Patient has elevated urine creatinine of 2.5 baseline is not available but patient apparently has chronic kidney disease. 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 Patient is found to have mildly elevated troponins of 0.2-3. Patient denied any chest pain although patient is extremely poor historian because of her confusion and hearing problems. His blood cult ures from the other hospital came back positive for gram-positive cocci unsure whether it's clusters sore repairs. Patient will be started on vancomycin infectious disease will be consulted may need tube be switched to daptomycin, considering her kidney function. 01/17/2020, Patient remains in the ICU, overall pulmonary status is marginal, continues to have worsening infiltrates in the left lung, remains on 40% FiO2 and 40 L flow via airvo. Patient is also receiving enteral feeding via a nasogastric tube. Surprisingly the patient is holding, she is not getting any better and she is not getting any worse. Chest x-ray again shows significant infiltrate involving the left lung. WBC count today is 17 hemoglobin is 10.5, d-dimer is 1.42. Electrodes are normal renal profile showed a BUN of 72 creatinine of 1.30. Improving over the last few days. Neurologically, the patient is about the same 01/18/2020, Patient remains in the ICU, on high flow airvo FiO2 of 40% and 35 L/m flow, saturating at 97%, seems to be a bit more awake today, however she seems to be generally weak. Remains on antibiotics/Rocephin. In addition to her Covid 19 pneumonitis, patient had blood cultures positive for Haemophilus influenzae. Overall the pa tient is improving, but her improvement seems to be relatively slow. Basic metabolic profile is normal BUN is 77 creatinine is 1.27, steady improvement. Continues to have leukocytosis with WBC count of 28.6 hemoglobin is 10.6. Chest x-ray continues to show significant infiltrate in the left lung, however it is improved compared to previous x-rays. 01/31/2020 the patient is seen and evaluated in room at bedside; much more alert. She is able to communicate. Patient received 2 units of packed RBC and the patient had some lower GI bleed. General surgeries on the case and they're considering colonoscopy on this patient. No nausea. No vomiting. Diarrhea. Physical therapy is working with the patient and there were mostly able to sit up at the edge of the bed. Her low blood work and electrodes are still pending for now. He is receiving free water per PEG tube with 100 mL every 8 hours. No fever. No chills. She is also receiving enteral feeding at 40 mL an hour. She is also trying some honey thickened liquids. 02/01/2020 patient remains in isolation; Gen surgery is following for GIB; Her PEG tube site is clean. Patient's will be scheduled for colonoscopy tomorrow. Nephrology on board for acute kidney injury secondary to prerenal physiology. Disproportionate rise in BUNs compared to creatinine poss secondary to GIB. Patient remains on free water 30 ML's an hour via PEG tube; hyponatremia resolved. COVID-19 pneumonia; supportive care Objective - Vital Signs Vital signs: Vital Signs Temp 99.2 F 02/01/20 14:42 Pulse 71 02/01/20 14:42 Resp 17 02/01/20 14:42 BP 155/88 02/01/20 14:42 Pulse Ox 100 02/01/20 14:42 Intake & Output 01/31/20 02/01/20 02/01/20 18:59 06:59 18:59 Output Total 1400 Balance -1400 Weight 91 kg 89.5 kg Output: Urine 1400 Other: Voiding Method Indwelling Catheter Indwelling Catheter Indwelling Catheter # Bowel Movements 1 - Exam GENERAL: Drowsy arousable, not in any acute distress. Well developed, well nourished. Patient has nonessential tremor, possibility of myoclonus, much better. HEENT: Pupils are round and equally reacting to light. EOMI. No scleral icterus. No conjunctival pallor. Normocephalic, atraumatic. No pharyngeal erythema. No thyromegaly. CARDIOVASCULAR: S1 and S2 present. No murmurs, rubs, or gallops. PULMONARY: Bilateral crackles and rhonchi diffusely ABDOMEN: Soft, nontender, nondistended, normoactive bowel sounds. No palpable organomegaly. MUSCULOSKELETAL: No joint swelling or deformity. EXTREMITIES: No cyanosis, clubbing, or pedal edema. NEUROLOGICAL: Gross neurological examination did not reveal any focal deficits. - Labs CBC & Chem 7: 02/01/20 06:18 02/01/20 06:18 Labs: Abnormal Lab Results - Last 24 Hours (Table) 01/31/20 01/31/20 02/01/20 Range/Units 16:26 20:51 06:18 RBC 2.37 L (3.80-5.40) m/uL Hgb 7.8 L (11.4-16.0) gm/dL Hct 23.7 L (34.0-46.0) % RDW 18.3 H (11.5-15.5) % Plt Count 105 L (150-450) k/uL Lymphocytes # (Manual) 0.24 L (1.0-4.8) k/uL Metamyelocytes # (Man) 0.06 H (0) k/uL Sodium (135-145) mmol/L Chloride (96-109) mmol/L BUN (9.0-27.0) mg/dL Creatinine (0.6-1.5) mg/dL Est GFR (CKD-EPI)AfAm (60.0-200.0) Est GFR (CKD-EPI)NonAf (60.0-200.0) BUN/Creatinine Ratio (12.00-20.00) Ratio Glucose (70-110) mg/dL POC Glucose (mg/dL) 143 H 135 H (75-99) mg/dL Calcium (8.7-10.3) mg/dL 02/01/20 02/01/20 02/01/20 Range/Units 06:18 06:53 11:45 RBC (3.80-5.40) m/uL Hgb (11.4-16.0) gm/dL Hct (34.0-46.0) % RDW (11.5-15.5) % Plt Count (150-450) k/uL Lymphocytes # (Manual) (1.0-4.8) k/uL Metamyelocytes # (Man) (0) k/uL Sodium 146 H (135-145) mmol/L Chloride 114 H (96-109) mmol/L BUN 116.0 H* (9.0-27.0) mg/dL Creatinine 1.7 H (0.6-1.5) mg/dL Est GFR (CKD-EPI)AfAm 33.1 L (60.0-200.0) Est GFR (CKD-EPI)NonAf 28.6 L (60.0-200.0) BUN/Creatinine Ratio 68.24 H (12.00-20.00) Ratio Glucose 140 H (70-110) mg/dL POC Glucose (mg/dL) 189 H 140 H (75-99) mg/dL Calcium 7.5 L (8.7-10.3) mg/dL Microbiology - Last 24 Hours (Table) 01/28/20 11:27 Blood Culture - Preliminary Blood No Growth after 96 hours 01/28/20 11:19 Blood Culture - Preliminary Blood No Growth after 96 hours Assessment and Plan Assessment: -Acute hypoxic respiratory failure: secondary to covid 19 pneumonia. Patient was started on Decadron and completed Remdesivir patient is presently on a 45L of oxygen via Airvo. continue with NG tube feedings with Glucerna. Patient was started on antifungals cussing that she has fever on antibiotics. Patient has worsening leukocytosis as well and patient is being followed by infectious disease - secondary bacterial pneumonia , patient has bacteremia with Haemophilus influenza, patient is on Rocephin presently. Repeat blood cultures are negative - bacteremia: -Toxic encephalopathy, altered mental status: Secondary to infection, EKG did not show any seizure activity patient still has some tremors -Elevated troponin secondary to infection and renal failure -Possible Acute renal failure patient does have chronic kidney disease unable to stage chronic kidney disease is at baseline is not known. Patient will continued on IV fluids once serum creatinine can you to improve -Hypertension: Patient is presently on clonidine patch. -Hyperlipidemia Possible myoclonus: Secondary to encephalopathy, neurology evaluated the patient. -DVT prophylaxis with heparin
--- NOTE | 2020-02-02 03:25 | PN ---
PROGRESS NOTE DATE OF SERVICE: 02/01/2020. REASON FOR FOLLOWUP: Pneumonia and oropharyngeal candidiasis. INTERVAL HISTORY: The patient is currently afebrile. Patient is breathing comfortably. Slightly more awake, alert and tolerating her tube feeds. No vomiting or diarrhea has been reported by nursing staff. PHYSICAL EXAMINATION: Her blood pressure is a 139/65 with a pulse of 84, temperature 99.4. She is 99% on room air. General description is an elderly female lying in bed in no distress. RESPIRATORY SYSTEM: Unlabored breathing with decreased intensity of breath sounds. No wheeze. HEART: S1, S2. Regular rate and rhythm. ABDOMEN: Soft, no tenderness. LABS: Hemoglobin is 7.8, white count 6.0, BUN of 116, creatinine 1.7. DIAGNOSTIC IMPRESSION AND PLAN: 1. Patient with Haemophilus influenzae bacteremia secondary to pneumonia adequately treated. 2. Oropharyngeal candidiasis adequately treated. White count normalized. Continue to monitor the patient closely off antibiotic and antifungal. MMODL / IJN: [id number] /
[2020-02-02 07:00] LABS: Glucose,Whole Blood 184 mg/dL (75-99)
[2020-02-02 08:48] LABS: African American GFR (CKD) 36 (>60 ml/min/1.73 sqM); Anion Gap 2 mmol/L; Blood Urea Nitrogen 100 mg/dL (7-17); Calcium 7.1 mg/dL (8.4-10.2); Carbon Dioxide 28 mmol/L (22-30); Chloride 113 mmol/L (98-107); Glucose 148 mg/dL (74-99); Non-African American GFR(CKD) 32 (>60 ml/min/1.73 sqM); Potassium 3.4 mmol/L (3.5-5.1); Sodium 143 mmol/L (137-145)
[2020-02-02 09:05] LABS: Anisocytosis Slight; HCT 20.7 % (34.0-46.0); Hypochromasia Moderate; MCH 31.3 pg (25.0-35.0); MCHC 30.7 g/dL (31.0-37.0); MCV 102.1 fL (80.0-100.0); Macrocytosis Moderate; Mean Platelet Volume 9.8; Platelet Count 100 k/uL (150-450); Poikilocytosis Slight; RBC 2.02 m/uL (3.80-5.40); RDW 18.4 % (11.5-15.5)
[2020-02-02 09:11] LABS: HGB 6.3 gm/dL (11.4-16.0)
[2020-02-02] MEDS: LACTATED RINGERS 1,000 ML IV SCH (09:16)
[2020-02-02] MEDS: INSULIN ASPART (NovoLOG) 100 UNIT/ML VIAL SQ SCH ×4 (09:19→20:42)
[2020-02-02 09:37] LABS: Band Neutrophils % 1 %; Lymphocytes # (M) 0.08 k/uL (1.0-4.8); Monocytes # (M) 0.16 k/uL (0-1.0); Neutrophils % (M) 93 %; Nucleated Red Blood Cells 0 /100 WBC (0-0); Total Cells Counted 100
[2020-02-02 09:38] LABS: Mixed Population RBC Present; Polychromasia Present
[2020-02-02] MEDS: ALBUTEROL HFA INHALER INHALATION PRN ×2 (10:42→19:48)
[2020-02-02] MEDS ORDERED: FUROSEMIDE 10 MG/ML 2 ML VIAL IV ONE (11:00)
[2020-02-02] MEDS ORDERED: POTASSIUM CHLORIDE ER 20 MEQ TAB.ER PO STA (12:02)
--- NOTE | 2020-02-02 12:08 | P.PN ---
Subjective Patient is seen in follow-up for acute kidney injury. Renal function improved. Receiving a unit of blood today. Scheduled for colonoscopy today. Tube feeding is held. Vital signs are stable. General: The patient appeared well nourished and normally developed. HEENT: Head exam is unremarkable. Neck is without jugular venous distension. LUNGS: Breath sounds decreased. HEART: Rate and Rhythm are regular. ABDOMEN: Soft, obese. EXTREMITITES: 1+ edema. Objective - Vital Signs Vital signs: Vital Signs Temp 96.7 F L 02/02/20 11:21 Pulse 65 02/02/20 11:21 Resp 18 02/02/20 11:21 BP 112/64 02/02/20 11:21 Pulse Ox 100 02/02/20 11:21 Intake & Output 02/01/20 02/02/20 02/02/20 18:59 06:59 18:59 Intake Total 2640 0 Output Total 500 300 Balance 2140 -300 0 Weight 89.5 kg 90 kg Intake: Oral 2180 Tube Feeding 160 Blood Product 0 Rc As-1 Unit 0 [id number] Other 300 Output: Urine 500 300 Other: Voiding Method Indwelling Catheter Indwelling Catheter Indwelling Catheter # Bowel Movements 1 1 - Labs CBC & Chem 7: 02/02/20 08:29 02/02/20 08:29 Labs: Abnormal Lab Results - Last 24 Hours (Table) 01/30/20 02/01/20 02/01/20 Range/Units 10:55 06:18 16:46 RBC (3.80-5.40) m/uL Hgb (11.4-16.0) gm/dL Hct (34.0-46.0) % MCV (80.0-100.0) fL MCHC (31.0-37.0) g/dL RDW (11.5-15.5) % Plt Count (150-450) k/uL Lymphocytes # (Manual) (1.0-4.8) k/uL Potassium (3.5-5.1) mmol/L Chloride (98-107) mmol/L BUN 116.0 H* (9.0-27.0) mg/dL Creatinine (0.52-1.04) mg/dL Glucose (74-99) mg/dL POC Glucose (mg/dL) 68 L (75-99) mg/dL Calcium (8.4-10.2) mg/dL Crossmatch See Detail 02/01/20 02/01/20 02/01/20 Range/Units 17:02 21:01 21:05 RBC (3.80-5.40) m/uL Hgb (11.4-16.0) gm/dL Hct (34.0-46.0) % MCV (80.0-100.0) fL MCHC (31.0-37.0) g/dL RDW (11.5-15.5) % Plt Count (150-450) k/uL Lymphocytes # (Manual) (1.0-4.8) k/uL Potassium (3.5-5.1) mmol/L Chloride (98-107) mmol/L BUN (9.0-27.0) mg/dL Creatinine (0.52-1.04) mg/dL Glucose (74-99) mg/dL POC Glucose (mg/dL) 125 H 110 H 106 H (75-99) mg/dL Calcium (8.4-10.2) mg/dL Crossmatch 02/02/20 02/02/20 02/02/20 Range/Units 06:59 08:29 08:29 RBC 2.02 L (3.80-5.40) m/uL Hgb 6.3 L* D (11.4-16.0) gm/dL Hct 20.7 L (34.0-46.0) % MCV 102.1 H (80.0-100.0) fL MCHC 30.7 L (31.0-37.0) g/dL RDW 18.4 H (11.5-15.5) % Plt Count 100 L (150-450) k/uL Lymphocytes # (Manual) 0.08 L (1.0-4.8) k/uL Potassium 3.4 L (3.5-5.1) mmol/L Chloride 113 H (98-107) mmol/L BUN 100 H (9.0-27.0) mg/dL Creatinine 1.57 H (0.52-1.04) mg/dL Glucose 148 H (74-99) mg/dL POC Glucose (mg/dL) 184 H (75-99) mg/dL Calcium 7.1 L (8.4-10.2) mg/dL Crossmatch Microbiology - Last 24 Hours (Table) 01/28/20 11:27 Blood Culture - Preliminary Blood No Growth after 96 hours 01/28/20 11:19 Blood Culture - Preliminary Blood No Growth after 96 hours Assessment and Plan Plan: Assessment: 1. Acute kidney injury mostly prerenal secondary to infection and diuresis. Renal function improving. Creatinine 1.57 today. Renal ultrasound revealed 7.8 cm right kidney without any hydronephrosis. Left kidney could not be visualized. 2. Acute hypoxic respiratory failure. 3. Covid19 pneumonia. Status post steroids and remdesivir. 4. Rule out chronic kidney disease. 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 Unknown baseline renal function. 5. Haemophilus influenza bacteremia status post antibiotics. 6. Anemia of chronic kidney disease. Iron replete. Maintained on Aranesp. Receiving a unit of blood today. 7. Volume overload. Better. 8. Acute on chronic diastolic CHF. 9. Hypernatremia secondary to lack of oral water intake. Better. 10. Hypokalemia from poor intake. Plan: Replace potassium. Check magnesium level. Colonoscopy today. Add free water flushes 200 mL every 6 hours with tube feeding. 20 mg IV Lasix after blood transfusion complete. Continue to monitor renal function and urine output.
[2020-02-02 12:09] LABS: Glucose,Whole Blood 142 mg/dL (75-99)
[2020-02-02] MEDS ORDERED: PROPOFOL 10 MG/ML 20 ML VIAL IV ONE (14:34)
[2020-02-02] MEDS ORDERED: LACTATED RINGERS 1,000 ML IV ONE (14:35)
[2020-02-02] MEDS: METOPROLOL TARTRATE 50 MG TAB PO SCH ×2 (15:50→20:42)
[2020-02-02] MEDS: CHOLECALCIFEROL 1,000 UNIT TAB PO SCH (15:50)
[2020-02-02] MEDS: ASCORBIC ACID 500 MG TAB PO SCH ×2 (15:50→20:42)
[2020-02-02] MEDS: ZINC SULFATE 220 MG CAP PO SCH (15:50)
[2020-02-02] MEDS: ASPIRIN 81 MG PO SCH (15:51)
[2020-02-02] MEDS: HEPARIN SODIUM,PORCINE 5,000 UNIT/ML 1 ML VIAL SQ SCH ×2 (15:51→20:42)
[2020-02-02] MEDS: SENNOSIDES 8.6 MG TAB PO SCH ×2 (15:51→20:42)
[2020-02-02] MEDS: LIDOCAINE 5% PATCH TOPICAL SCH (15:51)
[2020-02-02] MEDS: DEXTROSE 5%-0.9% NACL 1,000 ML IV SCH (16:02)
--- NOTE | 2020-02-02 16:04 | P.OP ---
Date of Procedure: 02/02/20 Preoperative Diagnosis: GI bleed Postoperative Diagnosis: Diverticulosis Procedure(s) Performed: Colonoscopy Anesthesia: MAC Surgeon: Aroldo Singer Pathology: none sent Condition: stable Disposition: PACU Description of Procedure: The patient's placed on the endoscopy table in the lateral position. She received IV sedation. Digital rectal is performed which revealed no abnormalities. The possible colonoscope was then placed patient anus passed throughout the entire colon. The ileocecal valve visualized. Cecum, ascending transverse colon appeared normal. In the descending; there is mild diverticular changes. The scope was then brought back the rectum and this appeared normal. There is no evidence of any GI bleed. The scope was withdrawn for patient.
[2020-02-02 17:25] LABS: Glucose,Whole Blood 171 mg/dL (75-99)
--- NOTE | 2020-02-02 17:42 | P.PN ---
Subjective Progress Note Date: 02/02/20 Principal diagnosis: Acute hypoxic respiratory failure secondary to covid 19 pneumonitis. A 74-year-old female patient, very poor historian with what seems to be advanced dementia in addition to history of hypertension and hyperlipidemia was coming in for shortness of breath and hypoxemia and this has been confirmed to be related to COVID 19 infection/pneumonia. The patient was transferred from an outside hospital. The patient is unable to give any further history. Review of her chest x-ray shows that the patient is a peripheral patchy pulmonary interstitial airspace disease infiltrates bilaterally and the patient is currently on 8 L of oxygen by nasal cannula to maintain a saturation above 90%. Her current pulse ox is around 93%. The white cell count is at 10.6. The patient also has a renal failure and the chronicity of the renal failure is not established. Her previous creatinine is unknown to me at this point in time. She also has a mild component of anion gap metabolic acidosis with a anion gap of 14 and a serum bicarb level of 17. LDH is 1213 and the patient is a CRP of 301. Also, the patient had a troponin leak with troponin levels being at 0.1 0.1 and 0.2 respectively. Pro calcitonin level was elevated at 1.54. She is afebrile. The blood cultures from the outside hospital showing gram-positive cocci and is not sure if it was in clusters overnight. The patient was started on vancomycin as an empiric antibiotic coverage. In terms of Covid 19 infection, the patient was started on a combination of Decadron and Remdesivir The patient is seen today 01/07/2020 in follow-up on selective care unit. She does have advanced dementia and is a poor historian. She is currently resting fairly comfortably in bed. She is on 8 L high flow nasal cannula to maintain O2 saturations in the 90s. She's afebrile. Hemodynamically stable. White count 27.1. Hemoglobin 12.2. Lymphocytes 0.81. Sodium 139. Potassium 4.2. Bicarb 14. Creatinine 2.06. AST 102. ALT 47. Troponin 0.266. C-reactive protein 192. Pro calcitonin 1.45. She remains on Decadron, vitamin C, vitamin D, zinc. She is receiving day #2 of Remdesivir. On 01/08/2020, the patient has been transferred to the intensive care unit. The patient developed progressive dyspnea tachypnea and hypoxemia overnight and the patient had to be transferred to the intensive care unit. At this point in time, the patient is confused, lethargic, at times agitated, unable to follow any commands and unable to hold a conversation. She gets quite restless when stimulated. She is sensing critical condition on 4 extremities. No neck stiffness. She is moving all 4 extremities and the patient has no focal neurological deficits. No neck stiffness. The patient was noted to have a possible culture an outside hospital and the patient was given vancomycin in addition to Zithromax and Rocephin per IDs recommendation. Nevertheless, based on our cultures, the results are still negative for now and there is no clear evidence of any bacterial infection at this point in time. Noted the Pro calcitonin level was elevated. At the same time, the patient has acute Covid 19 related to pneumonia bilateral. The patient is on high flow oxygen at 15 L with an FiO2 of 73% to maintain a saturation above 90%. A triple lumen catheter was established in the left subclavian. The chest x-ray post line insertion showed no evidence of any pneumothorax. Nevertheless, there was dense bilateral pulmonary infiltrates consistent with coronavirus Covid 19 related pneumonia. The patient is obviously tachypneic. She is having respiratory distress even on high flow oxygen. No use of accessory muscles of breathing. The blood work from today shows a troponin of 0.23. Vancomycin level is at 19.9. The patient a component of non-anion gap metabolic acidosis from yesterday. The patient is a bicarb drip which is running at 100 mL an hour. Serum bicarb is up to 18. Creatinine is down to 1.9, somewhat improved compared to yesterday. At the same time, the patient is being treated with a combination of Decadron, vitamin C, vitamin D, zinc. She is receiving day #3 of Remdesivir. On 01/09/2020, the patient seems to be less agitated as the patient was started on Precedex which is currently running at 0.25 mg per KG per minute. The patient seems to much more comfortable at this point in time. She remains on high flow oxygen 55 L with an FiO2 of 85% with a pulse ox of 96%. The patient's chest x-ray still showing diffuse breath and pulmonary infiltrates. Note that the patient was infected with Covid 19 and she had a Covid 19 related pneumonia in addition to septic shock secondary to Haemophilus influenza bacteremia. Noted the patient's blood culture came back positive for Haemophilus influenza. The patient is currently on IV Rocephin 2 g every 24 hours in regards to this septicemia. The patient is also being treated for coronavirus Covid 19 pneumonia with a combination of Decadron and Remdesivir and the patient also received a unit of, convalescent plasma. The patient has a ferritin level of 3188. The patient has a LDH of 1147 and the CRP is down to 122. The patient is afebrile. Renal function and for the creatinine is down to 1.7. Serum bicarbs of 28 and the patient was being given D5 with 3 A of bicarb at the rate of 100 mL an hour. She is afebrile. She is still moans and at times becomes restless and tremulous. Nevertheless, there is no seizure activity noted and the patient is not able to follow single commands. Which are diffuse. There is peripheral infiltrate in the right and the left. There is somewhat improvement in pulmonary infiltration. Is a left sided subclavian triple-lumen catheter in place. The Pro calcitonin level is down to 1.45. 01/10/2020, the patient remains on Precedex and seems to be quite comfortable at a dose of 0.35 mcg per KG per hour. The patient is also on high flow oxygen at 55 L with an FiO2 of 80%. She is able to maintain a saturation above 90%. The chest x-ray is showing persistent airspace disease throughout the left lung which remains unchanged compared to yesterday. There is also scattered infiltration within the periphery of the right lung which probably have improved on today's evaluation. Note that the patient also had a positive blood culture with Haemophilus influenza. Accordingly, the patient was treated with IV Rocephin 2 g every 24 hours. The Pro calcitonin level is on the decline is currently down to 0.42. Hemodynamically stable and the patient is not requiring any pressors and she is receiving normal saline today to 75 mL an hour. The patient blood work showed a sodium of 147, BUN of 65 with a creatinine of 1.5, and the patient has an LDH of 1789, CRP of 73, and a d-dimer today's at 3.79. 01/11/2020, I'm seeing the patient for a follow-up. Her condition essentially unchanged compared to yesterday. The patient is still requiring Precedex to control her agitation and restlessness pH she remains on Precedex at a dose of 0.4 g per KG per minute. This is able to control her condition quite well. Meanwhile, the patient continues to remain hypoxic respiratory failure. She has required high flow oxygen at 55 L and FiO2 of 60%. The patient is on half- normal saline at the rate of 75 mL an hour. Urine output in the order of 70 mL an hour. Input output balance is positive for 21 mL over the past 24 hours. The patient's renal function with a creatinine of 1.47 which is improved compared to yesterday. Sodium level remains unchanged at 147. Chest x-ray findings are essentially stable with diffuse breath and pulmonary infiltrates consistent with Covid 19 related pneumonia. The patient remains on IV Decadron. The patient remains on IV Rocephin regarding her Haemophilus influenza septicemia. Hemodynamically stable. Maintaining her on blood pressure. She remains on Lovenox 40 mg subcu every 12 hours. Reevaluated today on 01/12/20, remains in the ICU, remains on airvo at 60 L/m flow, and 58% FiO2. O2 sats is 96%. Patient was admitted on 01/04, transferred to the ICU on 01/06. Receiving small dose of Precedex because of extreme a gitation on presentation, patient is on Lovenox Q at 40 mg subcu twice a day, patient is also being treated with Rocephin for presumptive Haemophilus influenza pneumonia. Patient has not been eating, hence I will recommend a nasogastric tube placement and enteral feeding. She will be seen by neurology on consultation as the patient seems to be quite confused. And extremely stiff and rigid. Her CT of the brain showed mild generalized atrophy and air fluid levels in the right sphenoid sinus. Likely secondary to acute sinusitis. Chest x-ray shows bilateral peripheral extensive infiltrates consistent with Covid 19 pneumonitis. On 01/13/2020 patient seen in follow-up in the intensive care unit, she is resting quietly in bed, appears to be in no acute distress, remains on high flow oxygen per Airvo at 45 L/m, with FiO2 of 45%. Her pulse ox currently is 96-98%. Breathing appears to be comfortable, no respiratory distress, she did have a fever spike this morning with a temp of 101.1F, dynamically stable, she receiving 0.45 at 75 ML per hour, NG tube was inserted yesterday for nutritional support and she has Glucerna tube feedings infusing at 20 ML per hour, with a goal of 40. Did water flushes, patient remains confused, however she is not agitated. Denies any significant distress, today's chest x-ray has been reviewed showing patchy and confluent peripheral infiltrates. And worsening airspace disease at the left base. Patient completed her Remdesivir course on 01/10/2020. She received 1 unit of convalescent plasma, is receiving IV Decadron, 6 mg daily, she is on Lovenox at 40 mg twice daily, and her last d- dimer on 01/12/2020 was downtrending and down to 2.89. Her labs have been reviewed today, her white blood cell count is 26.2, hemoglobin is 11.1, sodium is 143, potassium is 4.1, chloride is 112, CO2 is 25, BUN is 67, creatinine is 1.35, renal profile is actually improving, ferritin is 3122, LDH has trended some, and is up to 1778, however her CRP is trending down, and is down to 32.4. Her last Pro calcitonin was downtrending, and was at 0.282 days ago. She is on any medical coverage in the form of Rocephin, ID service is following Patient was reevaluated today on 01/14/20, remains in the intensive care unit, patient is on airvo, requiring FiO2 of 45%, and 40 L flow. Patient feels weak and congested, she has some cough, however unable to clear any secretions. Patient finished her course of remdisivir, she received 1 unit of convalescent plasma, she is presently on Rocephin and Eraxis. Chest x-ray continues to show bilateral infiltrates. White count today is 26.5 hemoglobin is 11.3, d-dimer is 1.79. Renal profile showed a BUN of 68 creatinine 1.41, relatively unchanged over the last few days Reevaluated today on 01/15/20, patient remains in the intensive care unit, she is still on high flow oxygen, basically she is on airvo flow is 40 L/m, and FiO2 is 53%, O2 saturation is only 93%. Patient continues to feel weak, short of lorna ath, she has intermittent cough, but unable to clear secretions. Continues to have leukocytosis with WBC count of 22.1 hemoglobin is 10.8. D-dimer is 1.60. Electrodes are normal BUN is 72 creatinine is 1.45. LDH is 1718 C-reactive protein is 17.8. Ferritin remains elevated at 3230. Chest x-ray continues to show bilateral infiltrates and small left-sided pleural effusion. Not much of a change is noted on her chest x-ray. Patient remains on the Covid 19 cocktail, she is also on Rocephin and on Eraxis. Patient was evaluated today on 01/17/20, remains in the ICU, overall pulmonary status is marginal, continues to have worsening infiltrates in the left lung, remains on 40% FiO2 and 40 L flow via airvo. Patient is also receiving enteral feeding via a nasogastric tube. Surprisingly the patient is holding, she is not getting any better and she is not getting any worse. Chest x-ray again shows significant infiltrate involving the left lung. WBC count today is 17 hemoglobin is 10.5, d-dimer is 1.42. Electrodes are normal renal profile showed a BUN of 72 creatinine of 1.30. Improving over the last few days. Neurologically, the patient is about the same Patient was reevaluated today on 01/17 0, remains in the ICU, remains on high flow airvo FiO2 of 40% and 35 L/m flow. She is saturating at 97%, seems to be a bit more awake today, however she seems to be generally weak and frail, she has extreme difficulty coughing and clearing her secretions. Remains on antibiotics/Rocephin. In addition to her Covid 19 pneumonitis, patient had blood cultures positive for Haemophilus influenzae. Overall the patient is improving, but her improvement seems to be relatively slow. She is generally weak. And I'm a bit concerned about sending the patient out of the ICU yet. Although she has been relatively stable over the last couple of days and her oxygen requirement is getting less nonetheless she still requiring relatively high flow. Basic metabolic profile is normal BUN is 77 creatinine is 1.27, steady improvement considering her creatinine 10 days ago was 2.18 and has been steadily getting better today is the best. Continues to have leukocytosis with WBC count of 28.6 hemoglobin is 10.6. Chest x-ray continues to show significant infiltrate in the left lung, however it is improved compared to previous x-rays. It is steadily showing improvement On 02/01/2020, the patient remains essentially the same. No signs of any GI bleed. She received a total of 2 units of fresh RBC. Her current hemoglobin is at 7.8. She is extensively undergoing a colonoscopy tomorrow. She remains on free water supplements. Affect 200 every 8 hours. Her BUN is still elevated at 116. Creatinine slightly low down to 1.7. Sodium level is elevated at 146. The patient is still receiving enteral feeding for a PEG tube for nutritional support. As mentioned earlier, she is more interactive and alert and awake and she's communicating freely. No mental status. There is global weakness and debility as a result of her prolonged hospitalization and respiratory failure secondary to Covid 19 related pneumonia. However, she recovered and she is currently on room air oxygen. Reevaluated today on 02/02/20, patient remains on the regular medical floor, she is doing fine, she is actually on room air, continues to have GI blood losses, and I believe the patient is scheduled for colonoscopy tomorrow. Hemoglobin today was 6.3, patient has received a total of 4 units of packed RBCs since admission, and she was receiving 1 unit while I was evaluating the patient. Continues to have a left subclavian central line which I plan to discontinue and will likely arrange for peripheral IV access Objective - Vital Signs Vital signs: Vital Signs Temp 96.8 F L 02/02/20 15:25 Pulse 68 02/02/20 15:25 Resp 18 02/02/20 15:25 BP 136/76 02/02/20 15:25 Pulse Ox 97 02/02/20 15:25 Intake & Output 02/01/20 02/02/20 02/02/20 18:59 06:59 18:59 Intake Total 2640 360 Output Total 500 300 Balance 2140 -300 360 Weight 89.5 kg 90 kg 90 kg Intake: IV 50 Oral 2180 Tube Feeding 160 Blood Product 310 Rc As-1 Unit 310 [id number] Other 300 Output: Urine 500 300 Other: Voiding Method Indwelling Catheter Indwelling Catheter Indwelling Catheter # Bowel Movements 1 1 - Exam GENERAL: This is a 74-year-old female patient on high flow oxygen, in no distress. Head exam was generally normal. There was no scleral icterus or corneal arcus. Mucous membranes were moist. HEENT: Pupils are round and equally reacting to light. EOMI. No scleral icterus. No conjunctival pallor. Normocephalic, atraumatic. No pharyngeal erythema. No thyromegaly. The patient subclavian triple lumen catheter inserted in left subclavian vein. CARDIOVASCULAR: S1 and S2 present. No murmurs, rubs, or gallops. PULMONARY: Symmetrical chest expansion, rhonchi noted bilaterally. Patient seems to have a very weak cough ABDOMEN: Soft, nontender, nondistended, normoactive bowel sounds. No palpable organomegaly. MUSCULOSKELETAL: No joint swelling or deformity. EXTREMITIES: No cyanosis, clubbing, 1+ bipedal edema. NEUROLOGICAL: Awake, but confused, and otherwise there is no gross focal deficit SKIN: No rashes. - Labs CBC & Chem 7: 02/02/20 08:29 02/02/20 08:29 Labs: Abnormal Lab Results - Last 24 Hours (Table) 01/30/20 02/01/20 02/01/20 Range/Units 10:55 06:18 21:01 RBC (3.80-5.40) m/uL Hgb (11.4-16.0) gm/dL Hct (34.0-46.0) % MCV (80.0-100.0) fL MCHC (31.0-37.0) g/dL RDW (11.5-15.5) % Plt Count (150-450) k/uL Lymphocytes # (Manual) (1.0-4.8) k/uL Potassium (3.5-5.1) mmol/L Chloride (98-107) mmol/L BUN 116.0 H* (9.0-27.0) mg/dL Creatinine (0.52-1.04) mg/dL Glucose (74-99) mg/dL POC Glucose (mg/dL) 110 H (75-99) mg/dL Calcium (8.4-10.2) mg/dL Crossmatch See Detail 02/01/20 02/02/20 02/02/20 Range/Units 21:05 06:59 08:29 RBC 2.02 L (3.80-5.40) m/uL Hgb 6.3 L* D (11.4-16.0) gm/dL Hct 20.7 L (34.0-46.0) % MCV 102.1 H (80.0-100.0) fL MCHC 30.7 L (31.0-37.0) g/dL RDW 18.4 H (11.5-15.5) % Plt Count 100 L (150-450) k/uL Lymphocytes # (Manual) 0.08 L (1.0-4.8) k/uL Potassium (3.5-5.1) mmol/L Chloride (98-107) mmol/L BUN (9.0-27.0) mg/dL Creatinine (0.52-1.04) mg/dL Glucose (74-99) mg/dL POC Glucose (mg/dL) 106 H 184 H (75-99) mg/dL Calcium (8.4-10.2) mg/dL Crossmatch 02/02/20 02/02/20 02/02/20 Range/Units 08:29 12:08 17:23 RBC (3.80-5.40) m/uL Hgb (11.4-16.0) gm/dL Hct (34.0-46.0) % MCV (80.0-100.0) fL MCHC (31.0-37.0) g/dL RDW (11.5-15.5) % Plt Count (150-450) k/uL Lymphocytes # (Manual) (1.0-4.8) k/uL Potassium 3.4 L (3.5-5.1) mmol/L Chloride 113 H (98-107) mmol/L BUN 100 H (9.0-27.0) mg/dL Creatinine 1.57 H (0.52-1.04) mg/dL Glucose 148 H (74-99) mg/dL POC Glucose (mg/dL) 142 H 171 H (75-99) mg/dL Calcium 7.1 L (8.4-10.2) mg/dL Crossmatch Microbiology - Last 24 Hours (Table) 01/28/20 11:27 Blood Culture - Preliminary Blood No Growth after 120 hours 01/28/20 11:19 Blood Culture - Preliminary Blood No Growth after 120 hours Assessment and Plan Assessment: Impression: Acute hypoxic respiratory failure Acute covid 19 pneumonitis Acute bacteremia secondary to Haemophilus influenza Underlying Haemophilus influenza pneumonia is not entirely ruled out. Acute kidney injury Acute toxic metabolic encephalopathy secondary to above. Hypertension. Dyslipidemia. Anemia secondary to GI blood losses, patient is scheduled to undergo colonoscopy by Dr. Singer tomorrow. Recommendation: Transfuse for low hemoglobin and maintain hemoglobin above 7. 10 physical therapy incentive spirometer PEG enteral feeding for nutritional support. Free water through the PEG tube Aspiration precautions Levemir insulin Consider patient for discharge/placement in a custodial. when she is cleared by surgery and by gastroenterology regarding GI bleeding. Will follow as needed. Advised the nurse to remove the central line was peripheral IV access is established Time with Patient: Less than 30
[2020-02-02 20:29] LABS: Glucose,Whole Blood 176 mg/dL (75-99)
[2020-02-02] MEDS: INSULIN DETEMIR (LEVEMIR) 100 UNIT/ML SYR SQ SCH (20:42)
--- NOTE | 2020-02-02 23:58 | P.PN ---
Subjective Progress Note Date: 02/02/20 Principal diagnosis: Acute hypoxic respiratory failure: secondary to covid 19 pneumonia 74-year-old female is admitted for hypoxia elevated troponins found to have positive Covid. Patient was transferred from outside hospital. Patient at baseline apparently is awake and alert. Patient is oriented 1 at this time. Patient did have fever and shortness of breath because of which patient was sent in here. Patient has elevated urine creatinine of 2.5 baseline is not available but patient apparently has chronic kidney disease. Does follow with a boarding house cook as an outpatient. Patient is found to have mildly elevated troponins of 0.2-3. Patient denied any chest pain although patient is extremely poor historian because of her confusion and hearing problems. His blood cultures from the other hospital came back positive for gram-positive cocci unsure whether it's clusters sore repairs. Patient will be started on vancomycin infectious disease will be consulted may need tube be switched to daptomycin, considering her kidney function. 01/07/2020 Patient is presently on the eighth liters of oxygen although patient is not in respiratory distress whenever she doesn't wear this oxygen his sister AND saturation dropped down to 80%. Patient blood cultures are positive for coag is negative staph which is a contamination and medics will be discontinued. Repeat cultures are pending 01/08/2020 Patient progressively became dyspneic was transferred to intensive care unit patient was started on Rocephin and azithromycin for secondary bacterial pneumonia, IV recommended vancomycin as well. Patient had a central line placed.. Creatinine improved to 1.9. Patient is presently on Remdesivir date 3 along with Decadron, vitamin C, vitamin D and zinc 01/09/2020 Patient is bacteremic with Haemophilus influenza repeat blood cultures will be obtained and patient is on Rocephin patient is presently on 55 L of oxygen. Patient has severe toxic encephalopathy with tremors. Neurology evaluated the patient. 01/10/2020 Patient's tremors and shaking he is better patient continues to be on Pracedex. Bicarbonate drip was discontinued patient has hyperchloremia and hyper next anemia because of which patient will be switched to half-normal saline. 01/11/2020 Patient is also receiving metoprolol apart from a clonidine because of her tachycardia and hypertension patient presently doesn't have an NG tube patient is presently nothing by mouth. Patient is presently on 60 L of oxygen via able. 01/12/2020 Patient still remains on high oxygen about the 55 L. Patient repeat cultures for last 3 days with negative had Haemophilus influenza. Remains on Decadron. Patient has toxic metabolic encephalopathy. 01/13/2020 Patient remains on 45 L of oxygen still having fever highly elevated the inflammatory markers. Patient had an NG tube now and is receiving Glucerna. Chest x-ray from today showing peripheral infiltrates there is a downward trend and d-dimer. 01/14/2020 No significant change in her respiratory status. Patient is afebrile since yesterday morning. Inflammatory markers trended down. Patient remains on 45 L of oxygen 01/15/2020 Patient is awake alert. Currently on high flow oxygen on airvo. Complaints of generalized weakness and shortness of breath and cough. Chest x-ray showed stable chest with bilateral infiltrates and small left-sided pleural effusion. Patient is being continued on antibiotics in the form of ceftriaxone and ant ifungal Eraxis. Blood cultures grew haemophilus influenza and repeat cultures have been negative so far. Laboratory data showed WBC 22.1, hemoglobin 10.8 and platelets 157 absolute lymphocyte count 0.66 BUN 72 and creatinine 1.45 Elevated inflammatory markers. 01/23/2020 Patient is seen and evaluated in follow-up much more awake although fatigues easily. Patient is eating more per nursing staff and tolerating honey thickened diet at this time. Patient is maintaining oxygen saturations on 4 L via nasal cannula in the high 90s. Patient is a mouth breather as well oral mucosa is dry. Patient is taking medications per nursing staff. BUN continues to be elevated and nephrology is following. Creatinine is 1.7. Magnesium elevated at 2.6, potassium is 4.1. Surgery following with the possibility of PEG tube placement and patient currently undergoing calorie counting. Multiple medical consultations following. PT/OT therapy attempted to work with the patient and patient continues to be a max assist and barely moving out of the bed. Case management and social work also following as patient will require an ECF for rehab stabilized and discharged. 01/24/2020 Patient is currently lying in the bed comfortable and unable to provide any history. patient does have poor oral intake. Patient has trouble swallowing. General surgery was consulted for possible PEG tube placement. Otherwise laboratory test showed renal function with creatinine of 1.9 and BUN 132 likely due to steroids. Pulmonary nephrology is following. 01/25/2020 Patient does have very poor oral intake. General surgery was consulted for PEG tube placement. Calorie count and increased oral intake was recommended. Otherwise patient hemoglobin level is 6.6 today. Will be transfused with 1 unit of PRBC and monitor H&H. Laboratory data showed sodium 149, potassium 3.8, BUN 137 creatinine 2.1 Patient is being treated D5 water. Nephrology is following. Arrest patient is on antifungals. ID is on board. 02/02/2020 Patient is currently resting in the bed comfortably. Saturating at 97% on room air. Hemoglobin level is6.3 and patient is being transfused with 1 unit of PRBC. Patient underwent colonoscopy today. Showed diverticulosis. No active bleeding noted. Patient is tolerating PEG tube feeding. Continue with Levemir and insulin sliding scale. Patient is being continued darbepoetin. Nephrology and pulmonary is on board. Current medications reviewed. Review of systems: Unable to obtain given patient's confusional state and increased fatigue All inpatient medications were reviewed and appropriate changes in these medications as dictated in the interval history and assessment and plan. Objective - Vital Signs Vital signs: Vital Signs Temp 96.9 F L 02/02/20 18:29 Pulse 65 02/02/20 18:29 Resp 18 02/02/20 18:29 BP 104/65 02/02/20 18:29 Pulse Ox 100 02/02/20 18:29 Intake & Output 02/02/20 02/02/20 02/03/20 06:59 18:59 06:59 Intake Total 950 Output Total 300 500 Balance -300 450 Weight 90 kg 90 kg Intake: IV 50 Tube Feeding 80 Blood Product 620 Rc As-1 Unit 310 [id number] Other 200 Output: Urine 300 500 Other: Voiding Method Indwelling Catheter Indwelling Catheter Indwelling Catheter # Bowel Movements 1 - Exam - Exam GENERAL: lethargic although arousable. More awake today. Well developed, well nourished. HEENT: Pupils are round and equally reacting to light. EOMI. No scleral icterus. No conjunctival pallor. Normocephalic, atraumatic. No pharyngeal erythema. No thyromegaly. Oral mucosa is dry CARDIOVASCULAR: S1 and S2 muffled. No murmurs, rubs, or gallops. PULMONARY: diminished breath sounds bilaterally with some scattered rhonchi noted ABDOMEN: Soft, nontender, nondistended, normoactive bowel sounds. No palpable organomegaly. MUSCULOSKELETAL: No joint swelling or deformity. EXTREMITIES: No cyanosis, clubbing, or pedal edema. Bilateral upper and lower extremity pitting edema noted, 3+ NEUROLOGICAL: Lethargic although more easily arousable to name today. Patient shrugs her shoulders and nontender head when asked questions. Gross neurological examination did not reveal any focal deficits. Diffusely weak - Labs CBC & Chem 7: 02/02/20 08:29 02/02/20 08:29 Labs: Abnormal Lab Results - Last 24 Hours (Table) 01/30/20 02/01/20 02/01/20 Range/Units 10:55 06:18 21:01 RBC (3.80-5.40) m/uL Hgb (11.4-16.0) gm/dL Hct (34.0-46.0) % MCV (80.0-100.0) fL MCHC (31.0-37.0) g/dL RDW (11.5-15.5) % Plt Count (150-450) k/uL Lymphocytes # (Manual) (1.0-4.8) k/uL Potassium (3.5-5.1) mmol/L Chloride (98-107) mmol/L BUN 116.0 H* (9.0-27.0) mg/dL Creatinine (0.52-1.04) mg/dL Glucose (74-99) mg/dL POC Glucose (mg/dL) 110 H (75-99) mg/dL Calcium (8.4-10.2) mg/dL Crossmatch See Detail 02/01/20 02/02/20 02/02/20 Range/Units 21:05 06:59 08:29 RBC 2.02 L (3.80-5.40) m/uL Hgb 6.3 L* D (11.4-16.0) gm/dL Hct 20.7 L (34.0-46.0) % MCV 102.1 H (80.0-100.0) fL MCHC 30.7 L (31.0-37.0) g/dL RDW 18.4 H (11.5-15.5) % Plt Count 100 L (150-450) k/uL Lymphocytes # (Manual) 0.08 L (1.0-4.8) k/uL Potassium (3.5-5.1) mmol/L Chloride (98-107) mmol/L BUN (9.0-27.0) mg/dL Creatinine (0.52-1.04) mg/dL Glucose (74-99) mg/dL POC Glucose (mg/dL) 106 H 184 H (75-99) mg/dL Calcium (8.4-10.2) mg/dL Crossmatch 02/02/20 02/02/20 02/02/20 Range/Units 08:29 12:08 17:23 RBC (3.80-5.40) m/uL Hgb (11.4-16.0) gm/dL Hct (34.0-46.0) % MCV (80.0-100.0) fL MCHC (31.0-37.0) g/dL RDW (11.5-15.5) % Plt Count (150-450) k/uL Lymphocytes # (Manual) (1.0-4.8) k/uL Potassium 3.4 L (3.5-5.1) mmol/L Chloride 113 H (98-107) mmol/L BUN 100 H (9.0-27.0) mg/dL Creatinine 1.57 H (0.52-1.04) mg/dL Glucose 148 H (74-99) mg/dL POC Glucose (mg/dL) 142 H 171 H (75-99) mg/dL Calcium 7.1 L (8.4-10.2) mg/dL Crossmatch 02/02/20 Range/Units 20:27 RBC (3.80-5.40) m/uL Hgb (11.4-16.0) gm/dL Hct (34.0-46.0) % MCV (80.0-100.0) fL MCHC (31.0-37.0) g/dL RDW (11.5-15.5) % Plt Count (150-450) k/uL Lymphocytes # (Manual) (1.0-4.8) k/uL Potassium (3.5-5.1) mmol/L Chloride (98-107) mmol/L BUN (9.0-27.0) mg/dL Creatinine (0.52-1.04) mg/dL Glucose (74-99) mg/dL POC Glucose (mg/dL) 176 H (75-99) mg/dL Calcium (8.4-10.2) mg/dL Crossmatch Microbiology - Last 24 Hours (Table) 01/28/20 11:27 Blood Culture - Preliminary Blood No Growth after 120 hours 01/28/20 11:19 Blood Culture - Preliminary Blood No Growth after 120 hours Assessment and Plan Assessment: -Acute blood loss anemia secondary to possible GI bleed. Status post colonoscopy today showed diverticulosis. -Acute hypoxic respiratory failure: secondary to covid 19 pneumonia. improved now -secondary bacterial pneumonia, with Haemophilus influenza -bacteremia -Toxic encephalopathy, altered mental status: Secondary to infection -Elevated troponin secondary to infection and renal failure -Acute kidney injury secondary to infection patient does have chronic kidney disease unable to stage chronic kidney disease as baseline is not known. -Hypernatremia due to dehydration volume depletion. -Hypertension -Hyperlipidemia -Possible myoclonus: Secondary to encephalopathy -DVT prophylaxis with heparin Recommendations and discussion: Recommend to continue with current medications, management, and symptomatic treatment. Surgery following for the possibility of a PEG tube as patient continues to be lethargic and continued poor oral intake. Patient currently undergoing three-day calorie count. Oral intake slightly improved per nursing staff today. Will continue to monitor and encourage increased oral intake as tolerated. Continue with IV antibiotics along with IV steroids and breathing inhalational treatments. Multiple medical consultations following including pulmonary, neurology, and infectious disease. Nephrology following. PT/OT following an patient is a max assist. Patient will require ECF for cont inued rehab once discharged. Maintain strict aspiration precautions and continue with the head of the bed elevated 30-45 degrees with one-to-one supervision. Will repeat am labs and monitor vitals closely. Prognosis remains guarded. Further recommendations to follow. Time with Patient: Greater than 30
--- NOTE | 2020-02-03 00:50 | PN ---
PROGRESS NOTE DATE OF SERVICE: 02/02/2020 REASON FOR FOLLOWUP: Leukocytosis and pneumonia. INTERVAL HISTORY: The patient is currently afebrile. The patient is breathing comfortably. Tolerating her tube feeds. No vomiting or diarrhea has been reported. She noticed to have drop in hemoglobin and was getting blood transfusion. PHYSICAL EXAMINATION: Her blood pressure is 104/65, pulse of 65, temperature 96.9. She is 100% on room air. General description is an elderly female lying in bed in no distress. RESPIRATORY SYSTEM: Unlabored breathing with decreased intensity of breath sounds, no wheeze. HEART: S1, S2. Regular rate and rhythm. ABDOMEN: Soft, no tenderness. LABS: Hemoglobin 6.2, white count 4.0, BUN 100, creatinine 1.57. DIAGNOSTIC IMPRESSION AND PLAN: 1. Patient with haemophilus influenzae bacteremia secondary to pneumonia, adequately treated. Currently off antibiotic. 2. Oropharyngeal candidiasis that has been adequately admitted. Currently off antifungals. Will follow patient closely off antibiotics. Continue with supportive care. MMODL / IJN: [id number] /
[2020-02-03 06:38] LABS: Anisocytosis Slight; Hypochromasia Slight; MCH 30.6 pg (25.0-35.0); Macrocytosis Slight; Platelet Count 127 k/uL (150-450); Poikilocytosis Moderate; RBC 2.92 m/uL (3.80-5.40); RDW 19.4 % (11.5-15.5); WBC 5.2 k/uL (3.8-10.6)
[2020-02-03 06:39] LABS: HGB 8.9 gm/dL (11.4-16.0); MCV 95.9 fL (80.0-100.0)
[2020-02-03 06:53] LABS: Band Neutrophils % 5 %; Lymphocytes # (M) 0.31 k/uL (1.0-4.8); Metamyelocytes # (M) 0.05 k/uL (0); Metamyelocytes % 1 %; Monocytes # (M) 0.16 k/uL (0-1.0); Myelocytes # (M) 0.05 k/uL (0); Myelocytes % 1 %; Neutrophils % (M) 84 %; Nucleated Red Blood Cells 0 /100 WBC (0-0); Total Cells Counted 200
[2020-02-03 06:55] LABS: Crenated RBC Present
[2020-02-03 06:57] LABS: Glucose,Whole Blood 100 mg/dL (75-99)
[2020-02-03] MEDS: INSULIN ASPART (NovoLOG) 100 UNIT/ML VIAL SQ SCH ×2 (06:58→12:37)
[2020-02-03] MEDS: LIDOCAINE 5% PATCH TOPICAL SCH (09:43)
[2020-02-03] MEDS: METOPROLOL TARTRATE 50 MG TAB PO SCH (09:44)
[2020-02-03] MEDS: CHOLECALCIFEROL 1,000 UNIT TAB PO SCH (09:44)
[2020-02-03] MEDS: ASPIRIN 81 MG PO SCH (09:44)
[2020-02-03] MEDS: ZINC SULFATE 220 MG CAP PO SCH (09:44)
[2020-02-03] MEDS: SENNOSIDES 8.6 MG TAB PO SCH (09:44)
[2020-02-03] MEDS: ASCORBIC ACID 500 MG TAB PO SCH (09:44)
[2020-02-03] MEDS: HEPARIN SODIUM,PORCINE 5,000 UNIT/ML 1 ML VIAL SQ SCH (09:44)
--- NOTE | 2020-02-03 10:07 | P.PN ---
Subjective Progress Note Date: 02/03/20 CHIEF COMPLAINT: Covid HISTORY OF PRESENT ILLNESS: This is a 74-year-old female who presented to the hospital with hypoxia, elevated troponins and was found to have positive COVID pneumonia. Patient did require ICU care and had been on Airvo and now transitioned to nasal cannula. Patient is status post PEG tube placement. Patient is tolerating tube feedings. Tube feedings are currently at 40 mL per hour. Patient is status post colonoscopy which did show evidence of diverticulosis and no active bleeding. Her hemoglobin has gone from 6.3-8.9 after blood transfusion. Patient has had no further signs or symptoms of blood in the stools. No bleeding at PEG tube site. She is afebrile. PHYSICAL EXAM: VITAL SIGNS: Reviewed. GENERAL: Well-developed in no acute distress. Pale in color HEENT: No sclera icterus. Extraocular movements grossly intact. Moist buccal mucosa. Head is atraumatic, normocephalic. ABDOMEN: Soft. Nondistended. Nontender. PEG tube in place ASSESSMENT: 1. Moderate protein calorie malnutrition status post PEG tube placement 2. Acute blood loss anemia with blood present per rectum likely due to diverticular bleed. Patient status post colonoscopy with evidence of diverticulosis 3. Acute hypoxemic respiratory failure secondary to Covid 19 pneumonia 4. Haemophilus influenza bacteremia likely related to pneumonia 5. Acute kidney injury followed by nephrology 6. Acute metabolic encephalopathy 7. Bleeding from PEG tube site resolved PLAN: -Continue tube feedings per dietitian recommendations -Continue supportive care -Patient can be discharged from surgical standpoint Physician Pediatric Urologist note has been reviewed by physician. Signing provider agrees with the documented findings, assessment, and plan of care. Objective - Vital Signs Vital signs: Vital Signs Temp 97.7 F 02/03/20 05:50 Pulse 68 02/03/20 05:50 Resp 19 02/03/20 05:50 BP 107/60 02/03/20 05:50 Pulse Ox 96 02/03/20 05:50 Intake & Output 02/02/20 02/03/20 02/03/20 18:59 06:59 18:59 Intake Total 950 Output Total 500 450 Balance 450 -450 Weight 90 kg 91.5 kg Intake: IV 50 Tube Feeding 80 Blood Product 620 Rc As-1 Unit 310 [id number] Other 200 Output: Urine 500 450 Other: Voiding Method Indwelling Catheter Indwelling Catheter - Labs CBC & Chem 7: 02/03/20 06:10 02/02/20 08:29 Labs: Abnormal Lab Results - Last 24 Hours (Table) 01/30/20 02/01/20 02/02/20 Range/Units 10:55 06:18 12:08 RBC (3.80-5.40) m/uL Hgb (11.4-16.0) gm/dL Hct (34.0-46.0) % RDW (11.5-15.5) % Plt Count (150-450) k/uL Lymphocytes # (Manual) (1.0-4.8) k/uL Metamyelocytes # (Man) (0) k/uL Myelocytes # (Manual) (0) k/uL BUN 116.0 H* (9.0-27.0) mg/dL POC Glucose (mg/dL) 142 H (75-99) mg/dL Crossmatch See Detail 02/02/20 02/02/20 02/03/20 Range/Units 17:23 20:27 06:10 RBC 2.92 L (3.80-5.40) m/uL Hgb 8.9 L D (11.4-16.0) gm/dL Hct 28.0 L (34.0-46.0) % RDW 19.4 H (11.5-15.5) % Plt Count 127 L (150-450) k/uL Lymphocytes # (Manual) 0.31 L (1.0-4.8) k/uL Metamyelocytes # (Man) 0.05 H (0) k/uL Myelocytes # (Manual) 0.05 H (0) k/uL BUN (9.0-27.0) mg/dL POC Glucose (mg/dL) 171 H 176 H (75-99) mg/dL Crossmatch 02/03/20 Range/Units 06:56 RBC (3.80-5.40) m/uL Hgb (11.4-16.0) gm/dL Hct (34.0-46.0) % RDW (11.5-15.5) % Plt Count (150-450) k/uL Lymphocytes # (Manual) (1.0-4.8) k/uL Metamyelocytes # (Man) (0) k/uL Myelocytes # (Manual) (0) k/uL BUN (9.0-27.0) mg/dL POC Glucose (mg/dL) 100 H (75-99) mg/dL Crossmatch Microbiology - Last 24 Hours (Table) 01/28/20 11:27 Blood Culture - Preliminary Blood No Growth after 120 hours 01/28/20 11:19 Blood Culture - Preliminary Blood No Growth after 120 hours
--- NOTE | 2020-02-03 10:21 | P.PN ---
Subjective Patient is seen in follow-up for acute kidney injury. Renal function improved. Receiving a unit of blood yesterday. Hemoglobin 8.9 this morning. Maintained on tube feeds. More awake today. Denies chest pain or shortness of breath. Vital signs are stable. General: The patient appeared well nourished and normally developed. HEENT: Head exam is unremarkable. Neck is without jugular venous distension. LUNGS: Breath sounds decreased. HEART: Rate and Rhythm are regular. ABDOMEN: Soft, obese. EXTREMITITES: 1+ edema. Objective - Vital Signs Vital signs: Vital Signs Temp 97.7 F 02/03/20 05:50 Pulse 68 02/03/20 05:50 Resp 19 02/03/20 05:50 BP 107/60 02/03/20 05:50 Pulse Ox 96 02/03/20 05:50 Intake & Output 02/02/20 02/03/20 02/03/20 18:59 06:59 18:59 Intake Total 950 Output Total 500 450 Balance 450 -450 Weight 90 kg 91.5 kg Intake: IV 50 Tube Feeding 80 Blood Product 620 Rc As-1 Unit 310 [id number] Other 200 Output: Urine 500 450 Other: Voiding Method Indwelling Catheter Indwelling Catheter - Labs CBC & Chem 7: 02/03/20 06:10 02/02/20 08:29 Labs: Abnormal Lab Results - Last 24 Hours (Table) 01/30/20 02/01/20 02/02/20 Range/Units 10:55 06:18 12:08 RBC (3.80-5.40) m/uL Hgb (11.4-16.0) gm/dL Hct (34.0-46.0) % RDW (11.5-15.5) % Plt Count (150-450) k/uL Lymphocytes # (Manual) (1.0-4.8) k/uL Metamyelocytes # (Man) (0) k/uL Myelocytes # (Manual) (0) k/uL BUN 116.0 H* (9.0-27.0) mg/dL POC Glucose (mg/dL) 142 H (75-99) mg/dL Crossmatch See Detail 02/02/20 02/02/20 02/03/20 Range/Units 17:23 20:27 06:10 RBC 2.92 L (3.80-5.40) m/uL Hgb 8.9 L D (11.4-16.0) gm/dL Hct 28.0 L (34.0-46.0) % RDW 19.4 H (11.5-15.5) % Plt Count 127 L (150-450) k/uL Lymphocytes # (Manual) 0.31 L (1.0-4.8) k/uL Metamyelocytes # (Man) 0.05 H (0) k/uL Myelocytes # (Manual) 0.05 H (0) k/uL BUN (9.0-27.0) mg/dL POC Glucose (mg/dL) 171 H 176 H (75-99) mg/dL Crossmatch 02/03/20 Range/Units 06:56 RBC (3.80-5.40) m/uL Hgb (11.4-16.0) gm/dL Hct (34.0-46.0) % RDW (11.5-15.5) % Plt Count (150-450) k/uL Lymphocytes # (Manual) (1.0-4.8) k/uL Metamyelocytes # (Man) (0) k/uL Myelocytes # (Manual) (0) k/uL BUN (9.0-27.0) mg/dL POC Glucose (mg/dL) 100 H (75-99) mg/dL Crossmatch Microbiology - Last 24 Hours (Table) 01/28/20 11:27 Blood Culture - Preliminary Blood No Growth after 120 hours 01/28/20 11:19 Blood Culture - Preliminary Blood No Growth after 120 hours Assessment and Plan Plan: Assessment: 1. Acute kidney injury mostly prerenal secondary to infection and diuresis. Renal function improving. Creatinine 1.57 as of yesterday. Renal ultrasound revealed 7.8 cm right kidney without any hydronephrosis. Left kidney could not be visualized. 2. Acute hypoxic respiratory failure. 3. Covid19 pneumonia. Status post steroids and remdesivir. 4. Rule out chronic kidney disease. 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 Unknown baseline renal function. 5. Haemophilus influenza bacteremia status post antibiotics. 6. Anemia of chronic kidney disease. Iron replete. Maintained on Aranesp. Status post blood transfusion this admission. Colonoscopy done February 01 revealed diverticulosis. 7. Volume overload. Better. 8. Acute on chronic diastolic CHF. 9. Hypernatremia secondary to lack of oral water intake. Better. 10. Hypokalemia from poor intake. Status post placement. Plan: Maintain tube feeding and free water flushes with the feeds. Avoid nephrotoxins. Morning labs pending.
[2020-02-03 10:28] VITALS: TEMP 97.6
[2020-02-03 12:03] LABS: Glucose,Whole Blood 146 mg/dL (75-99)
--- NOTE | 2020-02-03 12:05 | P.DS ---
Providers Date of admission: 01/05/20 21:34 Expected date of discharge: 02/03/20 Attending physician: Lani Paez Consults: 01/05/20 21:34 Consult Physician Urgent Consulting Provider: Domenica Chavis Consult Reason/Comments: covid Do you want consulting provider notified?: Yes 01/05/20 21:37 Consult Physician Urgent Consulting Provider: Sameer Shaw Consult Reason/Comments: covid, elevated trop Do you want consulting provider notified?: Yes 01/06/20 13:09 Consult Physician Routine Consulting Provider: Filiberto Zavala Consult Reason/Comments: Gram-positive bacteremia Do you want consulting provider notified?: Yes 01/08/20 08:57 Consult Physician Routine Consulting Provider: Lisa Valera Consult Reason/Comments: altered mental status, COVId Do you want consulting provider notified?: Yes 01/21/20 09:31 Consult Physician Urgent Consulting Provider: Aroldo Singer Consult Reason/Comments: possible peg tube placement Do you want consulting provider notified?: Yes 01/21/20 23:10 Consult Physician Urgent Consulting Provider: Lior Nunez Consult Reason/Comments: ARF/ covid Do you want consulting provider notified?: Yes Primary care physician: Stated None Hospital Course: Final diagnosis -Acute blood loss anemia secondary to possible GI bleed. Ruled out. Status post colonoscopy today showed diverticulosis. -Anemia of chronic kidney disease -Acute hypoxic respiratory failure: secondary to covid 19 pneumonia. improved now -secondary bacterial pneumonia, with Haemophilus influenza -bacteremia, resolved -Toxic encephalopathy, altered mental status: Secondary to infection -Elevated troponin secondary to infection and renal failure -Acute kidney injury secondary to infection patient does have chronic kidney disease unable to stage chronic kidney disease as baseline is not known. -Hypernatremia due to dehydration volume depletion, improved. -Hypertension -Hyperlipidemia -Possible myoclonus: Secondary to encephalopathy -DVT prophylaxis with heparin Discharge disposition Patient is being discharged in a stable condition with guarded prognosis to [facility] for continued PT/OT therapy. Patient will follow-up with primary care provider in the outpatient setting upon discharge. Patient also instructed to follow-up with surgery in one week. Total time taken is greater than 35 minutes. History of present illness This is a 75-year-old female who was recently admitted with acute hypoxic respiratory failure secondary to Covid 19 pneumonia and was being closely monitored. She was briefly monitored closely in the ICU as her respiratory status was slow to improve. Patient's oral intake continue to be poor and not meeting dietary requirements and patient ultimately received a feeding tube via PEG tube and is maintained on tube feedings along with free water flushes every 6 hours. Patient to continue with this regimen. Patient mentation and alertness improved and is currently tolerating puree dysphagia level I diet with honey thickened liquids and one-to-one supervision and strict aspiration precautions with head of the bed elevated 30-45 at all times. Patient is also tolerating oral medications this route. Blood sugars continue to be monitored before meals at bedtime and treated with sliding scale and will continue at this time. Patient continued to be quite weak requiring maximum assistance with physical therapy and will be going to [facility] for continued PT/OT for strength and mobility. Patient was also seen and evaluated by nephrology for acute kidney injury and will continue with free water flushes and repeat labs in a few days. Patient was also seen and evaluated by surgery for possible lower GI bleed and PEG tube placement. Patient underwent colonoscopy yesterday showing no active bleeding with diverticulosis noted. Hemoglobin today is stable at 8.9. Due to patient's immobility and long hospitalization buttocks area is excoriated and needs continued wound care with OptiFoam and aggressive PT/OT therapy. Currently no reports of chest pain, shortness of breath, or palpitations. Patient is afebrile. No reports of nausea or vomiting and patient is tolerating diet. Patient will be going to [facility] today. Repeat Covid testing 2 have been negative. On exam vital signs are stable. Temp is 97.6F, pulse is 87, respirations are 17, blood pressure is 105/69, oxygen saturation is 100% on room air. Cardio S1, S2 are muffled. Respiratory system shows diminished breath sounds at the bases with no wheezing or rhonchi noted. Abdomen is soft and obese, and nontender. Nervous system shows diffuse weakness. Please refer to medication reconciliation sheet for a list of medications. Patient Condition at Discharge: Stable Plan - Discharge Summary Discharge Rx Participant: Yes New Discharge Prescriptions: New Darbepoetin Dean [Aranesp] 40 mcg SQ Q7D syringe Aspirin 81 mg PO DAILY chew Heparin Sodium,Porcine [Heparin Sodium] 5,000 unit SQ Q12HR vial Insulin Detemir (Levemir) [Levemir] 10 unit SQ HS syr Lidocaine 5% Patch [Lidoderm 5% Patch] 1 patch TOPICAL DAILY patch Metoprolol Tartrate [Lopressor] 50 mg PO BID tab INSULIN ASPART (NovoLOG) [NovoLOG (formulary)] 0 unit SQ ACHS vial Zinc Sulfate [Orazinc] 220 mg PO DAILY cap Sennosides [Senokot] 8.6 mg PO BID tab Acetaminophen Tab [Tylenol] 650 mg PO Q6HR PRN tab PRN Reason: Mild Pain Or Fever > 100.5 Ascorbic Acid [Vitamin C] 500 mg PO BID tab Cholecalciferol [Vitamin D3 (25 Mcg = 1000 Iu)] 5,000 unit PO DAILY tab Continue Albuterol Sulfate [Proventil Hfa] 1 puff INHALATION Q4-6H PRN PRN Reason: Wheezing Discontinued traMADol HCL 50 mg PO BID PRN PRN Reason: Pain cloNIDine HCL [Catapres] 0.2 mg PO Q8H allopurinoL [Zyloprim] 100 mg PO DAILY Simvastatin [Zocor] 20 mg PO HS Discharge Medication List Albuterol Sulfate [Proventil Hfa] 1 puff INHALATION Q4-6H PRN 01/05/20 [History] Acetaminophen Tab [Tylenol] 650 mg PO Q6HR PRN tab 01/29/20 [Rx] Ascorbic Acid [Vitamin C] 500 mg PO BID tab 01/29/20 [Rx] Aspirin 81 mg PO DAILY chew 01/29/20 [Rx] Cholecalciferol [Vitamin D3 (25 Mcg = 1000 Iu)] 5,000 unit PO DAILY tab 01/29/20 [Rx] Darbepoetin Dean [Aranesp] 40 mcg SQ Q7D syringe 01/29/20 [Rx] Heparin Sodium,Porcine [Heparin Sodium] 5,000 unit SQ Q12HR vial 01/29/20 [Rx] INSULIN ASPART (NovoLOG) [NovoLOG (formulary)] 0 unit SQ ACHS vial 01/29/20 [Rx] Insulin Detemir (Levemir) [Levemir] 10 unit SQ HS syr 01/29/20 [Rx] Lidocaine 5% Patch [Lidoderm 5% Patch] 1 patch TOPICAL DAILY patch 01/29/20 [Rx] Metoprolol Tartrate [Lopressor] 50 mg PO BID tab 01/29/20 [Rx] Sennosides [Senokot] 8.6 mg PO BID tab 01/29/20 [Rx] Zinc Sulfate [Orazinc] 220 mg PO DAILY cap 01/29/20 [Rx] Follow up Appointment(s)/Referral(s): None,Stated [Primary Care Provider] - 1-2 days Aroldo Singer MD [STAFF PHYSICIAN] - 1 Week Ambulatory/Diagnostic Orders: Basic Metabolic Panel [LAB.AMB] Time Frame: 3 Days, Location: None Selected Complete Blood Count w/diff [LAB.AMB] Time Frame: 3 Days, Location: None Selected Activity/Diet/Wound Care/Special Instructions: Patient will be going to [facility] upon discharge Activity as tolerated Continue current diet with tube feedings with Glucerna 1.2 via the PEG tube with 40 mL/hr feedings along with 200 mL freewater flushes 6 hours daily as well Patient may continue with dysphasia 1 pured diet with honey thick liquids with one-to-one supervision and aspiration precautions of head of the bed elevated 30-45 at all times Monitor for residual Continue local wound care to the sacral area and continue with Optifoam gentle Continue to monitor blood sugar before meals at bedtime and treat accordingly w ith sliding scale along with long-acting Continue with Aggressive PT/OT therapy Repeat CBC in 3 days to monitor hemoglobin Discharge Disposition: TRANSFER TO SNF/ECF
[2020-02-03 13:36] LABS: African American GFR (CKD) 35.7 (60.0-200.0); Albumin 2.3 g/dL (3.80-4.90); Albumin/Globulin Ratio 1.92 (1.60-3.17); Anion Gap 9.9 mmol/L (4.00-12.00); BUN/Creat Ratio 63.13 Ratio (12.00-20.00); Calcium 7.7 mg/dL (8.7-10.3); Carbon Dioxide 26.1 mmol/L (21.6-31.8); Globulin 1.2 g/dL (1.6-3.3); Magnesium 2.2 mg/dL (1.5-2.4); Non-African American GFR(CKD) 30.8 (60.0-200.0); Potassium 3.4 mmol/L (3.5-5.5); Total Protein 3.5 g/dL (6.2-8.2)
[2020-02-03] MEDS ORDERED: POTASSIUM CHLORIDE ER 20 MEQ TAB.ER PO STA (14:41)
[2020-02-03 15:16] VITALS: BP 133/87; PULSE 88; RESP 19
--- NOTE | 2020-02-03 15:23 | PN ---
PROGRESS NOTE DATE OF SERVICE: 02/03/2020. REASON FOR FOLLOWUP: Pneumonia and oropharyngeal candidiasis. INTERVAL COURSE: The patient is currently afebrile. Patient is breathing comfortably. Sating 100%. Slightly more awake and alert. Denies having any chest pain, cough, abdominal pain. No diarrhea reported. PHYSICAL EXAMINATION: Blood pressure 105/59, pulse 87, temperature 98.6. Pulse ox 100 percent on room air. General description is an elderly female lying in bed in no distress. Respiratory system: Unlabored breathing. Clear to auscultation anteriorly. Heart S1, S2. Regular rate and rhythm. Abdomen soft, no tenderness. LABORATORY DATA: Hemoglobin 8.1, white count 5.2. Creatinine 1.3. DIAGNOSTIC IMPRESSION AND PLAN: 1. Patient with haemophilus influenzae bacteremia secondary to pneumonia adequately treated. 2. Patient with oropharyngeal candidiasis adequately treated . MMODL / IJN: [id number] / MTDD
--- NOTE | 2020-02-04 08:54 | CDI ---
Documentation Clarification Form Date: 02/04/2020 08:53:00 AM From: Becky Roberts Phone: Admit Date: 01/05/2020 09:34:00 PM Patient Name: Meeta Fuller Visit Number: [id number] Discharge Date: 02/03/2020 05:14:00 PM ATTENTION: The Clinical Documentation Specialists (CDI) and [facility] Coding Staff appreciate your assistance in clarifying documentation. Please respond to the clarification below the line at the bottom and electronically sign. The CDI & [facility] Coding staff will review the response and follow-up if needed. Please note: Queries are made part of the Legal Health Record. If you have any questions, please contact the author of this message via ITS. Dr. Lani Paez, The patient has uncontrolled Type II diabetes, as indicated on progress notes 01/30 & 01/31. Glucose: 138, 157, 208, 229, 116, 128, 131, 162, 173, 123, 107, 181, 167, 134, 127, 165, 97, 97, 112, 158, 46, 126, 88, 157, 91, 126, 140, 148,78 POC Glucose: 211, 177, 182, 201, 129, 240, 212, 143, 242, 189, 160, 192, 142, 129, 155, 141, 159, 128, 161, 195, 140, 132, 129, 208, 180, 143, 140, 185, 243, 220, 200, 164, 232, 184, 145, 182, 224, 149, 121, 139, 241, 206, 185, 188, 195, 186, 196, 184, 155, 153, 189, 167, 152, 146, 185, 167, 175, 186, 182, 188, 200, 190, 183, 121, 87, 94, 106,95, 101, 121, 106, 191, 129, 138, 129, 133, 191, 230, 72, 167, 209, 216, 66, 203, 163, 66, 140, 74, 139, 156, 84, 95, 174, 113, 195, 141, 171, 106, 109, 160, 241, 176, 165, 162, 151, 106, 126, 131, 144, 172, 146, 224, 107, 140, 140, 135, 143, 135, 189, 140, 68, 125, 110, 106, 184, 184, 142, 171, 176, 100, 146 A1c: 6.9 Treatment: blood glucose monitoring ACHS, NovoLOG per protocol UNIT SQ ACHS Per [facility] 2016 - query the provider for clarification whether the patient has hyperglycemia or hypoglycemia so that the appropriate code may be reported - uncontrolled diabetes indicates that the patient's blood sugar is not at an acceptable level, because it is either too high or too low. In order to capture the severity of Illness and necessary documentation specificity, please clarify if Type 2 uncontrolled diabetes is: Hyperglycemia Hypoglycemia Other, please specify Unable to Determine mild hyperglycemia due to infection and hospital stay. no hx of DM MTDD
--- NOTE | 2020-02-27 13:11 | P.OP ---
Date of Procedure: 01/26/20 Preoperative Diagnosis: Malnutrition Postoperative Diagnosis: Malnutrition Procedure(s) Performed: EGD with PEG Anesthesia: MAC Surgeon: Aroldo Singer Pathology: none sent Condition: stable Disposition: PACU Description of Procedure: The patient's placed on the endoscopy table lateral position. She received IV sedation. The gastric scope was placed patient oropharynx and passed in the esophagus and stomach. The stomach was insufflated with air. A suitable gastric reflux was seen. The skin was anesthetized 1% local Xylocaine. An incision was made on the skin and the needle needle was placed into the stomach under direct visualization. The needle was then snared and the wire specimen needle the wire was snared and brought out through the oropharynx. The PEG tube placed overtop the wire and brought down and stomach. The PEG tube was secured at the 3 cm valdemar. The one-piece bolster was used to secure the PEG tube. Patient top she will was sent to recovery room in stable condition.
== END 2020-02-03 17:14 | DRG 871 ==
LOC: EC 20:38 → 3SCARD 21:34 → 2SICU 01-08 04:45 → 4SSUR 01-20 13:27
PROVIDERS: ADMIT Internal Medicine; ATTEND Internal Medicine
PROC: 5A0955A Assistance with Respiratory Ventilation, Greater than 96 Consecutive Hours, High Flow/Velocity Cannula (ICD-10-PCS; 2020-01-05)
PROC: XW033E5 Introduction of Remdesivir Anti-infective into Peripheral Vein, Percutaneous Approach, New Technology Group 5 (ICD-10-PCS; principal; 2020-01-06)
PROC: XW13325 Transfusion of Convalescent Plasma (Nonautologous) into Peripheral Vein, Percutaneous Approach, New Technology Group 5 (ICD-10-PCS; 2020-01-08)
PROC: 02HV33Z Insertion of Infusion Device into Superior Vena Cava, Percutaneous Approach (ICD-10-PCS; 2020-01-08)
PROC: 0DH67UZ Insertion of Feeding Device into Stomach, Via Natural or Artificial Opening (ICD-10-PCS; 2020-01-12)
PROC: 3E0G76Z Introduction of Nutritional Substance into Upper GI, Via Natural or Artificial Opening (ICD-10-PCS; 2020-01-12)
PROC: 30233N1 Transfusion of Nonautologous Red Blood Cells into Peripheral Vein, Percutaneous Approach (ICD-10-PCS; 2020-01-25)
PROC: 0DH63UZ Insertion of Feeding Device into Stomach, Percutaneous Approach (ICD-10-PCS; 2020-01-26)
PROC: 0DJD8ZZ Inspection of Lower Intestinal Tract, Via Natural or Artificial Opening Endoscopic (ICD-10-PCS; 2020-02-02)
DX: A41.3 Sepsis due to Hemophilus influenzae (principal); U07.1 COVID-19; N17.0 Acute kidney failure with tubular necrosis; J96.21 Acute and chronic respiratory failure with hypoxia; J96.22 Acute and chronic respiratory failure with hypercapnia; R65.21 Severe sepsis with septic shock; I50.33 Acute on chronic diastolic (congestive) heart failure; J14 Pneumonia due to Hemophilus influenzae; G92 Toxic encephalopathy; J12.89 Other viral pneumonia; G62.81 Critical illness polyneuropathy; D62 Acute posthemorrhagic anemia; I13.0 Hypertensive heart and chronic kidney disease with heart failure and stage 1 through stage 4 chronic kidney disease, or unspecified chronic kidney disease; E87.2 Acidosis; E44.0 Moderate protein-calorie malnutrition; E87.0 Hyperosmolality and hypernatremia; B37.0 Candidal stomatitis; B37.81 Candidal esophagitis; D68.32 Hemorrhagic disorder due to extrinsic circulating anticoagulants; F03.90 Unspecified dementia, unspecified severity, without behavioral disturbance, psychotic disturbance, mood disturbance, and anxiety; E11.22 Type 2 diabetes mellitus with diabetic chronic kidney disease; E11.65 Type 2 diabetes mellitus with hyperglycemia; G25.3 Myoclonus; D63.1 Anemia in chronic kidney disease; E87.8 Other disorders of electrolyte and fluid balance, not elsewhere classified; N18.9 Chronic kidney disease, unspecified; I35.8 Other nonrheumatic aortic valve disorders; E78.5 Hyperlipidemia, unspecified; D72.810 Lymphocytopenia; E86.0 Dehydration; J01.90 Acute sinusitis, unspecified; K52.9 Noninfective gastroenteritis and colitis, unspecified; T38.0X5A Adverse effect of glucocorticoids and synthetic analogues, initial encounter; T45.515A Adverse effect of anticoagulants, initial encounter; T50.2X5A Adverse effect of carbonic-anhydrase inhibitors, benzothiadiazides and other diuretics, initial encounter; K57.30 Diverticulosis of large intestine without perforation or abscess without bleeding; F41.9 Anxiety disorder, unspecified; E87.6 Hypokalemia; M25.272 Flail joint, left ankle and foot; M25.271 Flail joint, right ankle and foot; E66.9 Obesity, unspecified; Z68.29 Body mass index [BMI] 29.0-29.9, adult; R32 Unspecified urinary incontinence; R77.8 Other specified abnormalities of plasma proteins; Z79.899 Other long term (current) drug therapy; Z82.49 Family history of ischemic heart disease and other diseases of the circulatory system; Z83.2 Family history of diseases of the blood and blood-forming organs and certain disorders involving the immune mechanism
CPT/HCPCS: 36600; 43246; 45378; 70450; 71045; 74230; 76770; 80048; 80053; 80061; 80202; 81001; 82550; 82553; 82728; 82805; 83036; 83540; 83550; 83615; 83735; 83880; 84145; 84295; 84484; 85025; 85027; 85379; 85384; 86140; 86850; 86870; 86880; 86900; 86901; 86902; 86920; 87040; 87070; 87086; 87205; 87635; 93005; 93306; 93970; 94640; 95816; 96360; 96361; 99285

== ENCOUNTER 2020-02-06 17:19 | Inpatient (IN) | payer MEDICARE ==
--- NOTE | 2020-02-06 18:12 | ED ---
General Adult HPI - General Chief complaint: Recheck/Abnormal Lab/Rx Stated complaint: UTI, Kidney Issues Time Seen by Provider: 02/06/20 17:22 Source: EMS Mode of arrival: EMS - History of Present Illness Initial comments: Dictation was produced using [employer] dictation software. please excuse any grammatical, word or spelling errors. This patient was cared for during a federal and state declared state of emergency secondary to Covid 19 Chief Complaint: 75-year-old female transferred from [facility] for urinary tract infection, hypernatremia, UTI and decubitus ulcers History of Present Illness: 75-year-old female she is a poor historian. Mental status is baseline for her. She transferred here from [facility] in [facility] for higher level of care. Patient initially presented to the ER for abnormal labs. Patient was evaluated there is found have hypernatremic, UTI, decubitus ulcers, anemia and GI bleed. She is Hemoccult positive. Hemoglobin 8.7, sodium 151, elevated BNP of 16,000. She was given Rocephin and Protonix and transferred to our hospital. Patient was recently admitted to our hospital for Covid 19. She spent several days here in our hospital. Patient is alert and oriented 2. She has no complaints at this time. PHYSICAL EXAM: General Impression: Alert and oriented x3, not in acute distress HEENT: Normocephalic atraumatic, extra-ocular movements intact, pupils equal and reactive to light bilaterally, mucous membranes moist. Cardiovascular: Heart regular rate and rhythm Chest: Able to complete full sentences, no retractions, no tachypnea Abdomen: abdomen soft, non-tender, non-distended, no organomegaly Musculoskeletal: Pulses present and equal in all extremities, diffuse extremity pitting edema, hyperpigmentation to the bilateral upper extremities Motor: no focal deficits noted Neurological: CN II-XII grossly intact, no focal motor or sensory deficits noted Skin: Stage I decubitus ulcer Psych: Normal affect and mood ED course: 75-year-old female presents today with hypernatremia, he was ulcers, anemia and GI bleed and UTI. Vital signs upon arrival shows blood pressure 95/61 vital signs within acceptable limits. Laboratory evaluation obtained. Hemoglobin appears stable A.9. This was around her baseline. Rest of CBC is unremarkable. Coag panel is negative. Metabolic panel shows creatinine of 1.26. This is better than her baseline. Troponin is 0.2. These labs all appear to be around her baseline. Case is discussed with Dr. Paez who is willing to accept patients care. Patient admitted to observation with consultation to GI. EKG interpretation: Ventricular rate 82, normal sinus rhythm, GA interval 98, QRS 102, QTc 455. No GA prolongation, no QTC prolongation, no ST or T-wave changes noted. EKG compared to jan 31 2020 showing no changes. Overall, this EKG is unremarkable - Related Data Home Medications Medication Instructions Recorded Confirmed Albuterol Sulfate [Proventil Hfa] 1 puff INHALATION RT-Q6H PRN 01/05/20 02/06/20 Acetaminophen Tab [Tylenol] 650 mg PO Q6HR PRN 02/06/20 02/06/20 Glucerna 1.2 Oren 240 ml PO QID@03,09,15,21 02/06/20 02/06/20 Heparin Sodium,Porcine [Heparin 5,000 unit SQ BID@0800,2000 02/06/20 02/06/20 Sodium] INSULIN ASPART (NovoLOG) [NovoLOG See Protocol SQ ACHS 02/06/20 02/06/20 (formulary)] Loperamide [Imodium] 2 - 4 mg PO Q3H PRN 02/06/20 02/06/20 Metoprolol Tartrate [Lopressor] 50 mg PO BID@0800,1600 02/06/20 02/06/20 Previous Rx's Medication Instructions Recorded Ascorbic Acid [Vitamin C] 500 mg PO BID tab 01/29/20 Aspirin 81 mg PO DAILY chew 01/29/20 Cholecalciferol [Vitamin D3 (25 5,000 unit PO DAILY tab 01/29/20 Mcg = 1000 Iu)] Insulin Detemir (Levemir) [Levemir] 10 unit SQ HS syr 01/29/20 Zinc Sulfate [Orazinc] 220 mg PO DAILY cap 01/29/20 Allergies Allergy/AdvReac Type Severity Reaction Status Date / Time No Known Allergies Allergy Verified 02/06/20 18:17 Review of Systems ROS Statement: Those systems with pertinent positive or pertinent negative responses have been documented in the HPI. ROS Other: All systems not noted in ROS Statement are negative. Past Medical History Past Medical History: Hyperlipidemia, Hypertension, Renal Disease Additional Past Medical History / Comment(s): Covid, Anemia History of Any Multi-Drug Resistant Organisms: None Reported Past Surgical History: Orthopedic Surgery Additional Past Surgical History / Comment(s): Peg tube Past Psychological History: No Psychological Hx Reported Smoking Status: Never smoker Past Alcohol Use History: None Reported Past Drug Use History: None Reported - Past Family History Father Family Medical History: Pulmonary Embolus Additional Family Medical History / Comment(s): Mother History Unknown: Yes Additional Family Medical History / Comment(s): " from old age" age 93 Daughter(s) Family Medical History: Hypertension Course Vital Signs 02/06/20 02/06/20 17:32 18:35 Temperature 98.2 F Pulse Rate 80 83 Respiratory 18 18 Rate Blood Pressure 95/69 113/81 O2 Sat by Pulse 100 96 Oximetry Medical Decision Making - Lab Data Result diagrams: 02/06/20 18:04 02/06/20 18:03 Lab Results 02/06/20 02/06/20 02/06/20 Range/Units 18:03 18:03 18:03 WBC (3.8-10.6) k/uL RBC (3.80-5.40) m/uL Hgb (11.4-16.0) gm/dL Hct (34.0-46.0) % MCV (80.0-100.0) fL MCH (25.0-35.0) pg MCHC (31.0-37.0) g/dL RDW (11.5-15.5) % Plt Count (150-450) k/uL MPV Neutrophils % (Manual) % Lymphocytes % (Manual) % Monocytes % (Manual) % Eosinophils % (Manual) % Neutrophils # (Manual) (1.3-7.7) k/uL Lymphocytes # (Manual) (1.0-4.8) k/uL Monocytes # (Manual) (0-1.0) k/uL Eosinophils # (Manual) (0-0.7) k/uL Nucleated RBCs (0-0) /100 WBC Polychromasia Hypochromasia Poikilocytosis Anisocytosis Macrocytosis PT (9.0-12.0) sec INR (<1.2) APTT (22.0-30.0) sec Sodium 143 (137-145) mmol/L Potassium 4.0 (3.5-5.1) mmol/L Chloride 114 H (98-107) mmol/L Carbon Dioxide 29 (22-30) mmol/L Anion Gap 0 mmol/L BUN 97 H (7-17) mg/dL Creatinine 1.26 H (0.52-1.04) mg/dL Est GFR (CKD-EPI)AfAm 47 (>60 ml/min/1.73 sqM) Est GFR (CKD-EPI)NonAf 41 (>60 ml/min/1.73 sqM) Glucose 124 H (74-99) mg/dL Plasma Lactic Acid Nico 1.1 (0.7-2.0) mmol/L Calcium 7.4 L (8.4-10.2) mg/dL Magnesium 2.1 (1.6-2.3) mg/dL Total Bilirubin 1.2 (0.2-1.3) mg/dL AST 28 (14-36) U/L ALT 23 (4-34) U/L Alkaline Phosphatase 59 (38-126) U/L Troponin I 0.200 H* (0.000-0.034) ng/mL Total Protein 3.9 L (6.3-8.2) g/dL Albumin 2.0 L (3.5-5.0) g/dL 02/06/20 02/06/20 Range/Units 18:04 18:04 WBC 5.4 (3.8-10.6) k/uL RBC 2.96 L (3.80-5.40) m/uL Hgb 8.9 L (11.4-16.0) gm/dL Hct 28.7 L (34.0-46.0) % MCV 96.9 (80.0-100.0) fL MCH 30.0 (25.0-35.0) pg MCHC 30.9 L (31.0-37.0) g/dL RDW 18.4 H (11.5-15.5) % Plt Count 160 (150-450) k/uL MPV 8.9 Neutrophils % (Manual) 82 % Lymphocytes % (Manual) 11 % Monocytes % (Manual) 6 % Eosinophils % (Manual) 1 % Neutrophils # (Manual) 4.43 (1.3-7.7) k/uL Lymphocytes # (Manual) 0.59 L (1.0-4.8) k/uL Monocytes # (Manual) 0.32 (0-1.0) k/uL Eosinophils # (Manual) 0.05 (0-0.7) k/uL Nucleated RBCs 0 (0-0) /100 WBC Polychromasia Present Hypochromasia Slight Poikilocytosis Slight Anisocytosis Slight Macrocytosis Slight PT 9.8 (9.0-12.0) sec INR 0.9 (<1.2) APTT 24.1 (22.0-30.0) sec Sodium (137-145) mmol/L Potassium (3.5-5.1) mmol/L Chloride (98-107) mmol/L Carbon Dioxide (22-30) mmol/L Anion Gap mmol/L BUN (7-17) mg/dL Creatinine (0.52-1.04) mg/dL Est GFR (CKD-EPI)AfAm (>60 ml/min/1.73 sqM) Est GFR (CKD-EPI)NonAf (>60 ml/min/1.73 sqM) Glucose (74-99) mg/dL Plasma Lactic Acid Nico (0.7-2.0) mmol/L Calcium (8.4-10.2) mg/dL Magnesium (1.6-2.3) mg/dL Total Bilirubin (0.2-1.3) mg/dL AST (14-36) U/L ALT (4-34) U/L Alkaline Phosphatase (38-126) U/L Troponin I (0.000-0.034) ng/mL Total Protein (6.3-8.2) g/dL Albumin (3.5-5.0) g/dL Disposition Clinical Impression: GI bleed Disposition: ADMITTED IP TO THIS [facility] Condition: Fair Referrals: Nonstaff,Physician [Primary Care Provider] - 1-2 days Decision Time: 19:23
[2020-02-06 18:22] LABS: Calcium 7.4 mg/dL (8.4-10.2); Magnesium 2.1 mg/dL (1.6-2.3); Total Bilirubin 1.2 mg/dL (0.2-1.3); Total Protein 3.9 g/dL (6.3-8.2)
[2020-02-06 18:27] LABS: Anisocytosis Slight; HCT 28.7 % (34.0-46.0); HGB 8.9 gm/dL (11.4-16.0); Hypochromasia Slight; MCHC 30.9 g/dL (31.0-37.0); MCV 96.9 fL (80.0-100.0); Macrocytosis Slight; Mean Platelet Volume 8.9; Platelet Count 160 k/uL (150-450); Poikilocytosis Slight; RBC 2.96 m/uL (3.80-5.40); RDW 18.4 % (11.5-15.5); WBC 5.4 k/uL (3.8-10.6)
[2020-02-06 18:35] LABS: INR 0.9 (<1.2); Partial Thromboplastin Time 24.1 sec (22.0-30.0); Prothrombin Time 9.8 sec (9.0-12.0)
[2020-02-06 18:51] LABS: Eosinophils # (M) 0.05 k/uL (0-0.7); Lymphocytes # (M) 0.59 k/uL (1.0-4.8); Monocytes # (M) 0.32 k/uL (0-1.0); Neutrophils # (M) 4.43 k/uL (1.3-7.7); Neutrophils % (M) 82 %; Nucleated Red Blood Cells 0 /100 WBC (0-0); Total Cells Counted 100
[2020-02-06 18:52] LABS: Polychromasia Present
--- NOTE | 2020-02-06 19:03 | XR ---
EXAMINATION TYPE: XR chest 1V portable DATE OF EXAM: 02/06/2020 COMPARISON: 01/29/2020 HISTORY: Chest pain short of breath swelling TECHNIQUE: FINDINGS: There is some coarse peripheral interstitial infiltrates in the lungs. This is more on the left side. There is poor inspiration. There is no heart failure. Heart size is fairly normal. There i s significant arthritic disease in the shoulder joints. IMPRESSION: There are chronic peripheral pulmonary infiltrates probably due to pulmonary fibrosis sim ilar to old exam. No heart failure seen. Poor inspiration also consistent with pulmonary fibrosis.
[2020-02-06] MEDS ORDERED: NALOXONE 0.4 MG/ML 1 ML VIAL IV PRN (19:21)
[2020-02-06 20:13] LABS: Appearance,Urine Clear (Clear); Bilirubin,Urine Negative (Negative); Blood,Urine Negative (Negative); Color,Urine Colorless; Glucose,Urine (UA) Negative (Negative); Ketones,Urine Negative (Negative); Leukocyte Esterase,Urine Negative (Negative); Nitrite,Urine Negative (Negative); Protein,Urine Negative (Negative); Urobilinogen,Urine <2.0 mg/dL (<2.0)
[2020-02-06 21:37] LABS: Glucose,Whole Blood 212 mg/dL (75-99)
[2020-02-06] MEDS: SODIUM CHLORIDE 0.9% 1,000 ML IV SCH (22:16)
[2020-02-07 06:01] LABS: Glucose,Whole Blood 143 mg/dL (75-99)
[2020-02-07 07:04] LABS: Anisocytosis Slight; HCT 25.7 % (34.0-46.0); HGB 8.5 gm/dL (11.4-16.0); Hypochromasia Moderate; MCH 32.3 pg (25.0-35.0); MCHC 33.3 g/dL (31.0-37.0); MCV 96.9 fL (80.0-100.0); Macrocytosis Slight; Mean Platelet Volume 8.6; Platelet Count 143 k/uL (150-450); Poikilocytosis Slight; RBC 2.65 m/uL (3.80-5.40); RDW 17.7 % (11.5-15.5); WBC 5.3 k/uL (3.8-10.6)
[2020-02-07 07:19] LABS: Calcium 7.3 mg/dL (8.4-10.2); Potassium 4.1 mmol/L (3.5-5.1)
[2020-02-07] MEDS: SODIUM CHLORIDE 0.9% 1,000 ML IV SCH ×2 (07:45→16:41)
--- NOTE | 2020-02-07 11:21 | P.CONS ---
History of Present Illness - Reason for Consult Consult date: 02/07/20 GI bleed Requesting physician: Lani Paez - Chief Complaint Abnormal labs - History of Present Illness 75-year-old female with medical history significant for hyperlipidemia, hypertension, chronic kidney disease and recent hospitalization for treatment of infection with Covid 19 pneumonia. At that time the patient had PEG tube placement with the surgical service as well as colonoscopy with the surgical service due to concerns over possible GI bleeding with diverticulosis and no source of bleeding noted at that time. Hemoglobin was found to be depressed was stable at 8.9 on discharge. The patient was transferred back to the hospital as a transfer due to abnormal labs and due to concerns over hypernatremia, UTI, decubitus ulcer and anemia. Hemoglobin currently stable at 8.5 with no signs or symptoms of GI bleeding reported. No abdominal pain reported. PEG tube site is intact. Review of Systems REVIEW OF SYSTEMS: CONSTITUTIONAL: Denies any fevers, chills, weight change or fatigue. CARDIOVASCULAR: Denies any chest pain, palpitations high or low blood pressures RESPIRATORY: Denies any shortness of breath, hemoptysis or cough. GENITOURINARY: No dysuria or hematuria, concern for urinary tract infection on antibiotics therapy. MUSCULOSKELETAL: No weakness reported. SKIN: Denies any new rashes or lesions, jaundice or pallor. PSYCHIATRIC: Denies any depression or anxiety. NEUROLOGY: Denies headache, denies any new focal deficits. EARS/NOSE/THROAT: No recent hearing change, congestion, nasal discharge or sore throat. EYES: No pain in eyes, discharge or change in vision. GASTROINTESTINAL: As per HPI. Past Medical History Past Medical History: Hyperlipidemia, Hypertension, Renal Disease Additional Past Medical History / Comment(s): Covid, Anemia ; Chronic kidney disease; ARDS History of Any Multi-Drug Resistant Organisms: None Reported Past Surgical History: Orthopedic Surgery Additional Past Surgical History / Comment(s): Peg tube Past Psychological History: No Psychological Hx Reported Smoking Status: Never smoker Past Alcohol Use History: None Reported Past Drug Use History: None Reported - Past Family History Father Family Medical History: Pulmonary Embolus Additional Family Medical History / Comment(s): Mother History Unknown: Yes Additional Family Medical History / Comment(s): " from old age" age 93 Daughter(s) Family Medical History: Hypertension Medications and Allergies Home Medications Medication Instructions Recorded Confirmed Type Albuterol Sulfate [Proventil Hfa] 1 puff INHALATION RT-Q6H PRN 01/05/20 02/06/20 History Ascorbic Acid [Vitamin C] 500 mg PO BID tab 01/29/20 02/06/20 Rx Aspirin 81 mg PO DAILY chew 01/29/20 02/06/20 Rx Cholecalciferol [Vitamin D3 (25 5,000 unit PO DAILY tab 01/29/20 02/06/20 Rx Mcg = 1000 Iu)] Insulin Detemir (Levemir) [Levemir] 10 unit SQ HS syr 01/29/20 02/06/20 Rx Zinc Sulfate [Orazinc] 220 mg PO DAILY cap 01/29/20 02/06/20 Rx Acetaminophen Tab [Tylenol] 650 mg PO Q6HR PRN 02/06/20 02/06/20 History Glucerna 1.2 Oren 240 ml PO QID@03,09,15,21 02/06/20 02/06/20 History Heparin Sodium,Porcine [Heparin 5,000 unit SQ BID@0800,2000 02/06/20 02/06/20 History Sodium] INSULIN ASPART (NovoLOG) [NovoLOG See Protocol SQ ACHS 02/06/20 02/06/20 History (formulary)] Loperamide [Imodium] 2 - 4 mg PO Q3H PRN 02/06/20 02/06/20 History Metoprolol Tartrate [Lopressor] 50 mg PO BID@0800,1600 02/06/20 02/06/20 History Allergies Allergy/AdvReac Type Severity Reaction Status Date / Time No Known Allergies Allergy Verified 02/06/20 18:17 Physical Exam Vitals: Vital Signs Temp Pulse Pulse Resp BP BP BP 02/07/20 03:16 98.5 F 86 16 121/76 02/06/20 23:20 97.5 F L 95 16 111/87 02/06/20 20:30 99.2 F 102 H 16 137/87 02/06/20 18:35 83 18 113/81 02/06/20 17:32 98.2 F 80 18 95/69 Pulse Ox 02/07/20 03:16 97 02/06/20 23:20 96 02/06/20 20:30 97 02/06/20 18:35 96 02/06/20 17:32 100 Intake and Output 02/06/20 02/07/20 02/07/20 22:59 06:59 14:59 Output Total 175 Balance -175 Output: Urine 175 Other: Voiding Method Indwelling Catheter Indwelling Catheter Weight 95.2 kg 88.5 kg On physical examination, patient appears comfortable in no apparent distress. HEAD: Normocephalic, atraumatic. EYES: No scleral icterus. No conjunctival injection. MOUTH: No lesions, tongue midline. NECK: Trachea midline, no gross abnormalities. CHEST: Decreased air entry in all lung [facility]. HEART: S1-S2 appreciated. ABDOMEN: Soft, obese, nontender to palpation with PEG tube site clean/Drive/i ntact. Bowel sounds are positive. No organomegaly. No guarding or rigidity. EXTREMITIES: No pedal edema. SKIN: No rashes, no jaundice. NEUROLOGIC: Alert and oriented x3. No focal deficits. Results CBC & Chem 7: 02/07/20 06:50 02/07/20 06:50 Labs: Abnormal Lab Results - Last 24 Hours (Table) 02/06/20 02/06/20 02/06/20 Range/Units 18:03 18:03 18:04 RBC 2.96 L (3.80-5.40) m/uL Hgb 8.9 L (11.4-16.0) gm/dL Hct 28.7 L (34.0-46.0) % MCHC 30.9 L (31.0-37.0) g/dL RDW 18.4 H (11.5-15.5) % Plt Count (150-450) k/uL Lymphocytes # (Manual) 0.59 L (1.0-4.8) k/uL Chloride 114 H (98-107) mmol/L BUN 97 H (7-17) mg/dL Creatinine 1.26 H (0.52-1.04) mg/dL Glucose 124 H (74-99) mg/dL POC Glucose (mg/dL) (75-99) mg/dL Calcium 7.4 L (8.4-10.2) mg/dL Troponin I 0.200 H* (0.000-0.034) ng/mL Total Protein 3.9 L (6.3-8.2) g/dL Albumin 2.0 L (3.5-5.0) g/dL Ur Specific [place] (1.001-1.035) 02/06/20 02/06/20 02/07/20 Range/Units 19:15 21:35 05:59 RBC (3.80-5.40) m/uL Hgb (11.4-16.0) gm/dL Hct (34.0-46.0) % MCHC (31.0-37.0) g/dL RDW (11.5-15.5) % Plt Count (150-450) k/uL Lymphocytes # (Manual) (1.0-4.8) k/uL Chloride (98-107) mmol/L BUN (7-17) mg/dL Creatinine (0.52-1.04) mg/dL Glucose (74-99) mg/dL POC Glucose (mg/dL) 212 H 143 H (75-99) mg/dL Calcium (8.4-10.2) mg/dL Troponin I (0.000-0.034) ng/mL Total Protein (6.3-8.2) g/dL Albumin (3.5-5.0) g/dL Ur Specific [place] 1.000 L (1.001-1.035) 02/07/20 02/07/20 Range/Units 06:50 06:50 RBC 2.65 L (3.80-5.40) m/uL Hgb 8.5 L (11.4-16.0) gm/dL Hct 25.7 L (34.0-46.0) % MCHC (31.0-37.0) g/dL RDW 17.7 H (11.5-15.5) % Plt Count 143 L (150-450) k/uL Lymphocytes # (Manual) (1.0-4.8) k/uL Chloride 116 H (98-107) mmol/L BUN 96 H (7-17) mg/dL Creatinine 1.30 H (0.52-1.04) mg/dL Glucose 122 H (74-99) mg/dL POC Glucose (mg/dL) (75-99) mg/dL Calcium 7.3 L (8.4-10.2) mg/dL Troponin I (0.000-0.034) ng/mL Total Protein (6.3-8.2) g/dL Albumin (3.5-5.0) g/dL Ur Specific [place] (1.001-1.035) Chest x-ray: report reviewed Assessment and Plan (1) Normocytic normochromic anemia Narrative/Plan: 75-year-old female with multiple medical comorbidities and recent hospitalization for treatment of infection with covid 19. Patient was seen at outside facility and sent for evaluation of hypernatremia, UTI, decubitus ulcer and anemia. On prior hospitalization patient was discharged with a hemoglobin of 8.9 and current hemoglobin is 8.5 and stable. No signs or symptoms of GI bleeding. The patient underwent both EGD with PEG tube placement and colonoscopy significant for diverticulosis with no active bleeding on last hospitalization with Dr. Singer of the surgical service. Current Visit: Yes Status: Acute Code(s): D64.9 - ANEMIA, UNSPECIFIED SNOMED Code(s): 45827740 Plan: Supportive care Okay for diet as tolerated Continue monitor for signs or symptoms of bleeding Continue to monitor hemoglobin and hematocrit and transfuse as needed Surgical service consult dated, patient underwent EGD with PEG tube placement and colonoscopy with her service on prior hospitalization No plans for endoscopy at this time Continue treatment of other medical comorbidities Thank you for allowing us to participate in the care of the patient we will continue to follow
[2020-02-07 12:01] LABS: Glucose,Whole Blood 132 mg/dL (75-99)
[2020-02-07] MEDS ORDERED: GLUCERNA CAL PO SCH (15:00)
--- NOTE | 2020-02-07 15:14 | P.GSCN ---
History of Present Illness Consult date: 02/07/20 History of present illness: CHIEF COMPLAINT: Hematochezia HISTORY OF PRESENT ILLNESS: The patient is a 75 year old female re-admitted secondary to blood in stools. She denies that her event is worse than her last admission. "I want to go home." She is on tube feeds. No reports of abdominal pain. Her hemoglobin is improved from her last admission. She was brought to the ER for abnormal labs for UTI, hypernatremia, anemia, congestive heart failure exacerbation and hemoccult positive stools. She has history of dementia. Her history is also obtained from her medical records. PAST MEDICAL HISTORY: See list and reviewed PAST SURGICAL HISTORY: See list and reviewed MEDICATIONS: See list and reviewed ALLERGIES: See list and reviewed SOCIAL HISTORY: See list and reviewed FAMILY HISTORY: See list and reviewed REVIEW OF ORGAN SYSTEMS: CONSTITUTIONAL: No fevers or chills. No recent weight loss. EYES: Denies any trouble with vision. No glasses. HEENT: No difficulties with hearing. No nosebleeds. RESPIRATORY: Has troubles with breathing or dyspnea on exertion. CARDIOVASCULAR: Denies any chest pain, palpitations, or recent heart attacks. Has congestive heart failure. GASTROINTESTINAL: Denies fatty food intolerance. Denies change in bowel habits and gas bloat. Has hemoccult positive stools. GENITOURINARY: Has UTI NEUROLOGICAL: Denies any numbness or tingling along the distal extremities. No seizure disorders or headaches. MUSCULOSKELETAL: Denies any back pain, stiffness or joint arthritis. SKIN: No current skin cancer. No rash. Has pressure ulcer. PSYCHIATRIC: Denies current depression or suicidal thoughts. ENDOCRINE: Denies current thyroid disorders. Has blood sugar glucose intolerance. HEME/LYMPHATIC: Denies any lumps and bumps around the neck. No recent deep venous thrombosis. ALLERGY/IMMUNOLOGY: No immunoglobulin therapy. No immune deficiencies. PHYSICAL EXAM: VITALS: Reviewed CONSTITUTIONAL: Well developed and in no acute distress. EYES: Conjuctivae without sclera icterus. Pupils are equally round and reactive to light. Extraocular movements grossly intact. HEAD, EARS, NOSE, THROAT: Moist buccal mucosa. Head is atraumatic, normocephalic. Hears conversational speech. No nasal drainage. NECK: Supple. No JV distention. No thyroidomegaly. RESPIRATORY: Non-labored respirations and equal bilateral excursions. No gross wheezes. CARDIOVASCULAR: Regular rate and rhythm. Extremities without moderate edema. Palpable 2+ radial pulses. ABDOMEN: Soft. Non-tender. Nondistended. No peritonitis LYMPH: No neck lymphadenopathy. MUSCULOSKELETAL: Nail and fingers with good capillary refill. SKIN: Warm and well perfused with good skin turgor. NEUROLOGIC: Cranial nerves II through XII grossly intact. Sensation upper and extremities intact. No focal or lateralizing signs. PSYCH: Appropriate affect. Alert and oriented to person, place and time. Displays appropriate insight. CLINCAL LABS: Reviewed. WBC 5.3. Hgb 8.5. Platelets 143, low. IMAGING: Independently reviewed chest xray without active consolidation. MEDICAL REPORT: Colonoscopy 02/02/20 with diverticulosis without active bleeding. RECORDS: previous old records reviewed with hospitalization for 1 month 01/04 to 02/02 for COVID ASSESSMENT: 1. GI bleed PLAN: 1. She has no acute surgical intervention. 2. Diet as tolerated. 3. May likely be discharge upon repeat hemoglobin being stable Past Medical History Past Medical History: Hyperlipidemia, Hypertension, Renal Disease Additional Past Medical History / Comment(s): Covid, Anemia ; Chronic kidney disease; ARDS History of Any Multi-Drug Resistant Organisms: None Reported Past Surgical History: Orthopedic Surgery Additional Past Surgical History / Comment(s): Peg tube Past Psychological History: No Psychological Hx Reported Smoking Status: Never smoker Past Alcohol Use History: None Reported Past Drug Use History: None Reported - Past Family History Father Family Medical History: Pulmonary Embolus Additional Family Medical History / Comment(s): Mother History Unknown: Yes Additional Family Medical History / Comment(s): " from old age" age 93 Daughter(s) Family Medical History: Hypertension Medications and Allergies Home Medications Medication Instructions Recorded Confirmed Type Albuterol Sulfate [Proventil Hfa] 1 puff INHALATION RT-Q6H PRN 01/05/20 02/06/20 History Ascorbic Acid [Vitamin C] 500 mg PO BID tab 01/29/20 02/06/20 Rx Aspirin 81 mg PO DAILY chew 01/29/20 02/06/20 Rx Cholecalciferol [Vitamin D3 (25 5,000 unit PO DAILY tab 01/29/20 02/06/20 Rx Mcg = 1000 Iu)] Insulin Detemir (Levemir) [Levemir] 10 unit SQ HS syr 01/29/20 02/06/20 Rx Zinc Sulfate [Orazinc] 220 mg PO DAILY cap 01/29/20 02/06/20 Rx Acetaminophen Tab [Tylenol] 650 mg PO Q6HR PRN 02/06/20 02/06/20 History Glucerna 1.2 Oren 240 ml PO QID@03,09,15,21 02/06/20 02/06/20 History Heparin Sodium,Porcine [Heparin 5,000 unit SQ BID@0800,2000 02/06/20 02/06/20 History Sodium] INSULIN ASPART (NovoLOG) [NovoLOG See Protocol SQ ACHS 02/06/20 02/06/20 History (formulary)] Loperamide [Imodium] 2 - 4 mg PO Q3H PRN 02/06/20 02/06/20 History Metoprolol Tartrate [Lopressor] 50 mg PO BID@0800,1600 02/06/20 02/06/20 History Allergies Allergy/AdvReac Type Severity Reaction Status Date / Time No Known Allergies Allergy Verified 02/06/20 18:17 Surgical - Exam Vital Signs Temp Pulse Resp BP Pulse Ox 98.2 F 80 18 95/69 100 02/06/20 17:32 02/06/20 17:32 02/06/20 17:32 02/06/20 17:32 02/06/20 17:32 Results - Labs 02/07/20 06:50 02/07/20 06:50 Abnormal Lab Results - Last 24 Hours (Table) 02/06/20 02/06/20 02/06/20 Range/Units 18:03 18:03 18:04 RBC 2.96 L (3.80-5.40) m/uL Hgb 8.9 L (11.4-16.0) gm/dL Hct 28.7 L (34.0-46.0) % MCHC 30.9 L (31.0-37.0) g/dL RDW 18.4 H (11.5-15.5) % Plt Count (150-450) k/uL Lymphocytes # (Manual) 0.59 L (1.0-4.8) k/uL Chloride 114 H (98-107) mmol/L BUN 97 H (7-17) mg/dL Creatinine 1.26 H (0.52-1.04) mg/dL Glucose 124 H (74-99) mg/dL POC Glucose (mg/dL) (75-99) mg/dL Calcium 7.4 L (8.4-10.2) mg/dL Troponin I 0.200 H* (0.000-0.034) ng/mL Total Protein 3.9 L (6.3-8.2) g/dL Albumin 2.0 L (3.5-5.0) g/dL Ur Specific [place] (1.001-1.035) 02/06/20 02/06/20 02/07/20 Range/Units 19:15 21:35 05:59 RBC (3.80-5.40) m/uL Hgb (11.4-16.0) gm/dL Hct (34.0-46.0) % MCHC (31.0-37.0) g/dL RDW (11.5-15.5) % Plt Count (150-450) k/uL Lymphocytes # (Manual) (1.0-4.8) k/uL Chloride (98-107) mmol/L BUN (7-17) mg/dL Creatinine (0.52-1.04) mg/dL Glucose (74-99) mg/dL POC Glucose (mg/dL) 212 H 143 H (75-99) mg/dL Calcium (8.4-10.2) mg/dL Troponin I (0.000-0.034) ng/mL Total Protein (6.3-8.2) g/dL Albumin (3.5-5.0) g/dL Ur Specific [place] 1.000 L (1.001-1.035) 02/07/20 02/07/20 02/07/20 Range/Units 06:50 06:50 12:00 RBC 2.65 L (3.80-5.40) m/uL Hgb 8.5 L (11.4-16.0) gm/dL Hct 25.7 L (34.0-46.0) % MCHC (31.0-37.0) g/dL RDW 17.7 H (11.5-15.5) % Plt Count 143 L (150-450) k/uL Lymphocytes # (Manual) (1.0-4.8) k/uL Chloride 116 H (98-107) mmol/L BUN 96 H (7-17) mg/dL Creatinine 1.30 H (0.52-1.04) mg/dL Glucose 122 H (74-99) mg/dL POC Glucose (mg/dL) 132 H (75-99) mg/dL Calcium 7.3 L (8.4-10.2) mg/dL Troponin I (0.000-0.034) ng/mL Total Protein (6.3-8.2) g/dL Albumin (3.5-5.0) g/dL Ur Specific [place] (1.001-1.035) Diabetes panel 02/06/20 02/07/20 Range/Units 18:03 06:50 Sodium 143 145 (137-145) mmol/L Potassium 4.0 4.1 (3.5-5.1) mmol/L Chloride 114 H 116 H (98-107) mmol/L Carbon Dioxide 29 29 (22-30) mmol/L BUN 97 H 96 H (7-17) mg/dL Creatinine 1.26 H 1.30 H (0.52-1.04) mg/dL Glucose 124 H 122 H (74-99) mg/dL Calcium 7.4 L 7.3 L (8.4-10.2) mg/dL AST 28 (14-36) U/L ALT 23 (4-34) U/L Alkaline Phosphatase 59 (38-126) U/L Total Protein 3.9 L (6.3-8.2) g/dL Albumin 2.0 L (3.5-5.0) g/dL Calcium panel 02/06/20 02/07/20 Range/Units 18:03 06:50 Calcium 7.4 L 7.3 L (8.4-10.2) mg/dL Albumin 2.0 L (3.5-5.0) g/dL Pituitary panel 02/06/20 02/07/20 Range/Units 18:03 06:50 Sodium 143 145 (137-145) mmol/L Potassium 4.0 4.1 (3.5-5.1) mmol/L Chloride 114 H 116 H (98-107) mmol/L Carbon Dioxide 29 29 (22-30) mmol/L BUN 97 H 96 H (7-17) mg/dL Creatinine 1.26 H 1.30 H (0.52-1.04) mg/dL Glucose 124 H 122 H (74-99) mg/dL Calcium 7.4 L 7.3 L (8.4-10.2) mg/dL Adrenal panel 02/06/20 02/07/20 Range/Units 18:03 06:50 Sodium 143 145 (137-145) mmol/L Potassium 4.0 4.1 (3.5-5.1) mmol/L Chloride 114 H 116 H (98-107) mmol/L Carbon Dioxide 29 29 (22-30) mmol/L BUN 97 H 96 H (7-17) mg/dL Creatinine 1.26 H 1.30 H (0.52-1.04) mg/dL Glucose 124 H 122 H (74-99) mg/dL Calcium 7.4 L 7.3 L (8.4-10.2) mg/dL Total Bilirubin 1.2 (0.2-1.3) mg/dL AST 28 (14-36) U/L ALT 23 (4-34) U/L Alkaline Phosphatase 59 (38-126) U/L Total Protein 3.9 L (6.3-8.2) g/dL Albumin 2.0 L (3.5-5.0) g/dL Assessment and Plan (1) GI bleed Current Visit: Yes Status: Acute Code(s): K92.2 - GASTROINTESTINAL HEMORRHAGE, UNSPECIFIED SNOMED Code(s): 59736406 (2) Normocytic normochromic anemia Current Visit: Yes Status: Acute Code(s): D64.9 - ANEMIA, UNSPECIFIED SNOMED Code(s): 24779426 (3) COVID-19 Current Visit: No Status: Acute Code(s): U07.1 - COVID-19 SNOMED Code(s): 242369471
[2020-02-07] MEDS: PANTOPRAZOLE 40 MG TABLET PO SCH (16:08)
[2020-02-07 16:26] LABS: Glucose,Whole Blood 183 mg/dL (75-99)
[2020-02-07] MEDS: METOPROLOL TARTRATE 50 MG TAB PO SCH (16:41)
[2020-02-07] MEDS: ALBUTEROL NEBULIZED 2.5 MG/3 ML INHALATION PRN ×2 (16:48→21:35)
[2020-02-07] MEDS: ACETAMINOPHEN TAB 325 MG TAB PO PRN (20:11)
[2020-02-07] MEDS: ASCORBIC ACID 500 MG TAB PO SCH (20:12)
[2020-02-07 21:08] LABS: Hemoglobin A1C 5.4 % (4.0-6.0)
[2020-02-07 21:26] LABS: Glucose,Whole Blood 191 mg/dL (75-99)
[2020-02-07] MEDS: INSULIN DETEMIR (LEVEMIR) 100 UNIT/ML SYR SQ SCH (21:28)
--- NOTE | 2020-02-07 21:34 | P.HPIM ---
History of Present Illness H&P Date: 02/07/20 Patient is a 75-year-old female with a known history of hypertension, hyperlipidemia and recent admission with COVID-19 pneumonia with prolonged hospital stay due to hypoxic respiratory failure and was discharged from the hospital on 02/03/2020 was transferred from [facility] and [facility] due to abnormal labs. Apparently patient was found to be hyponatremic with sodium level 151, hemoglobin 8.7 and BNP 16,000. Patient was given Protonix and also dose of Rocephin for possible UTI and was transferred to [facility] for higher level of care. Patient is awake alert and oriented x1-2 at baseline. Denied any complaints of chest pain or shortness of breath. Otherwise patient is a poor historian and most of the history was taken from the outside hospital records and ER note. During recent hospital stay patient was found to be anemic with hemoglobin level dropped down below 7 and transfused with PRBC. Hemoglobin was 8.9 on the day of discharge. Patient underwent colonoscopy which showed diverticulosis without active bleeding. Patient is otherwise tolerating oral diet. No fever no chills. Currently saturating well on room air. No diarrhea. Laboratory data showed WBC 5.3, hemoglobin 8.5, platelets 143, sodium 145, potassium 4.1, BUN 96 and creatinine 1.26 Chest x-ray showed there are chronic peripheral pulmonary infiltrates probably due to pulmonary fibrosis similar to old exam. No heart failure is seen. Review of Systems Complete review of systems could not be obtained from the patient Past Medical History Past Medical History: Hyperlipidemia, Hypertension, Renal Disease Additional Past Medical History / Comment(s): Covid, Anemia ; Chronic kidney disease; ARDS History of Any Multi-Drug Resistant Organisms: None Reported Past Surgical History: Orthopedic Surgery Additional Past Surgical History / Comment(s): Peg tube Past Psychological History: No Psychological Hx Reported Smoking Status: Never smoker Past Alcohol Use History: None Reported Past Drug Use History: None Reported - Past Family History Father Family Medical History: Pulmonary Embolus Additional Family Medical History / Comment(s): Mother History Unknown: Yes Additional Family Medical History / Comment(s): " from old age" age 93 Daughter(s) Family Medical History: Hypertension Medications and Allergies Home Medications Medication Instructions Recorded Confirmed Type Albuterol Sulfate [Proventil Hfa] 1 puff INHALATION RT-Q6H PRN 01/05/20 02/06/20 History Ascorbic Acid [Vitamin C] 500 mg PO BID tab 01/29/20 02/06/20 Rx Aspirin 81 mg PO DAILY chew 01/29/20 02/06/20 Rx Cholecalciferol [Vitamin D3 (25 5,000 unit PO DAILY tab 01/29/20 02/06/20 Rx Mcg = 1000 Iu)] Insulin Detemir (Levemir) [Levemir] 10 unit SQ HS syr 01/29/20 02/06/20 Rx Zinc Sulfate [Orazinc] 220 mg PO DAILY cap 01/29/20 02/06/20 Rx Acetaminophen Tab [Tylenol] 650 mg PO Q6HR PRN 02/06/20 02/06/20 History Glucerna 1.2 Oren 240 ml PO QID@03,09,15,21 02/06/20 02/06/20 History Heparin Sodium,Porcine [Heparin 5,000 unit SQ BID@0800,2000 02/06/20 02/06/20 History Sodium] INSULIN ASPART (NovoLOG) [NovoLOG See Protocol SQ ACHS 02/06/20 02/06/20 History (formulary)] Loperamide [Imodium] 2 - 4 mg PO Q3H PRN 02/06/20 02/06/20 History Metoprolol Tartrate [Lopressor] 50 mg PO BID@0800,1600 02/06/20 02/06/20 History Allergies Allergy/AdvReac Type Severity Reaction Status Date / Time No Known Allergies Allergy Verified 02/06/20 18:17 Physical Exam Vitals: Vital Signs Temp Pulse Pulse Resp BP BP BP 02/07/20 08:00 98.2 F 92 20 125/74 02/07/20 03:16 98.5 F 86 16 121/76 02/06/20 23:20 97.5 F L 95 16 111/87 02/06/20 20:30 99.2 F 102 H 16 137/87 02/06/20 18:35 83 18 113/81 02/06/20 17:32 98.2 F 80 18 95/69 Pulse Ox 02/07/20 08:00 98 02/07/20 03:16 97 02/06/20 23:20 96 02/06/20 20:30 97 02/06/20 18:35 96 02/06/20 17:32 100 Intake and Output 02/06/20 02/07/20 02/07/20 22:59 06:59 14:59 Output Total 175 Balance -175 Output: Urine 175 Other: Voiding Method Indwelling Catheter Indwelling Catheter Indwelling Catheter Weight 95.2 kg 88.5 kg 88.5 kg PHYSICAL EXAMINATION: Patient is lying in the bed comfortably, no acute distress, awake alert and oriented x1.. HEENT: Normocephalic. Neck is supple. Pupils reactive. Nostrils clear. Oral cavity is moist. Ears reveal no drainage. Neck reveals no JVD, carotid bruits, or thyromegaly. CHEST EXAMINATION: Trachea is central. Symmetrical expansion. Lung kaiser clear to auscultation and percussion. CARDIAC: Normal S1, S2 with no gallops. No murmurs ABDOMEN: Soft. Bowel sounds normal. No organomegaly. No abdominal bruits. Extremities: reveal no edema. No clubbing or cyanosis Neurologically awake, alert, oriented x1 with well-coordinated movements. dementia, No focal deficits noted Skin: No rash or skin lesions. Psychiatric: Coperative. Could not be assessed completely. Musculoskeletal: No joint swelling or deformity. Results CBC & Chem 7: 02/07/20 06:50 02/07/20 06:50 Labs: Abnormal Lab Results - Last 24 Hours (Table) 02/06/20 02/06/20 02/06/20 Range/Units 18:03 18:03 18:04 RBC 2.96 L (3.80-5.40) m/uL Hgb 8.9 L (11.4-16.0) gm/dL Hct 28.7 L (34.0-46.0) % MCHC 30.9 L (31.0-37.0) g/dL RDW 18.4 H (11.5-15.5) % Plt Count (150-450) k/uL Lymphocytes # (Manual) 0.59 L (1.0-4.8) k/uL Chloride 114 H (98-107) mmol/L BUN 97 H (7-17) mg/dL Creatinine 1.26 H (0.52-1.04) mg/dL Glucose 124 H (74-99) mg/dL POC Glucose (mg/dL) (75-99) mg/dL Calcium 7.4 L (8.4-10.2) mg/dL Troponin I 0.200 H* (0.000-0.034) ng/mL Total Protein 3.9 L (6.3-8.2) g/dL Albumin 2.0 L (3.5-5.0) g/dL Ur Specific [place] (1.001-1.035) 02/06/20 02/06/20 02/07/20 Range/Units 19:15 21:35 05:59 RBC (3.80-5.40) m/uL Hgb (11.4-16.0) gm/dL Hct (34.0-46.0) % MCHC (31.0-37.0) g/dL RDW (11.5-15.5) % Plt Count (150-450) k/uL Lymphocytes # (Manual) (1.0-4.8) k/uL Chloride (98-107) mmol/L BUN (7-17) mg/dL Creatinine (0.52-1.04) mg/dL Glucose (74-99) mg/dL POC Glucose (mg/dL) 212 H 143 H (75-99) mg/dL Calcium (8.4-10.2) mg/dL Troponin I (0.000-0.034) ng/mL Total Protein (6.3-8.2) g/dL Albumin (3.5-5.0) g/dL Ur Specific [place] 1.000 L (1.001-1.035) 02/07/20 02/07/20 02/07/20 Range/Units 06:50 06:50 12:00 RBC 2.65 L (3.80-5.40) m/uL Hgb 8.5 L (11.4-16.0) gm/dL Hct 25.7 L (34.0-46.0) % MCHC (31.0-37.0) g/dL RDW 17.7 H (11.5-15.5) % Plt Count 143 L (150-450) k/uL Lymphocytes # (Manual) (1.0-4.8) k/uL Chloride 116 H (98-107) mmol/L BUN 96 H (7-17) mg/dL Creatinine 1.30 H (0.52-1.04) mg/dL Glucose 122 H (74-99) mg/dL POC Glucose (mg/dL) 132 H (75-99) mg/dL Calcium 7.3 L (8.4-10.2) mg/dL Troponin I (0.000-0.034) ng/mL Total Protein (6.3-8.2) g/dL Albumin (3.5-5.0) g/dL Ur Specific [place] (1.001-1.035) Thrombosis Risk Factor Assmnt - DVT/VTE Prophylaxis DVT/VTE Prophylaxis: Mechanical Prophylaxis ordered - Choose All That Apply Any of the Below Risk Factors Present?: Yes Each Factor Represents 1 point: Medical pt on bed rest, Obesity (BMI >25), Swollen legs (current) Other Risk Factors: Yes Each Risk Factor Represents 3 Points: Age 75 years or older Other congenital or acquired thrombophilia - If yes, enter type in comment: No Thrombosis Risk Factor Assessment Total Risk Factor Score: 6 Thrombosis Risk Factor Assessment Level: High Risk Assessment and Plan Assessment: Normocytic normochromic anemia without any active GI bleed. Hemoglobin is stable compared to last admission. Possible urinary tract infection. UA negative on admission here Recent COVID-19 infection with hypoxic respiratory failure. On room air currently. Elevated troponin level likely due to recent COVID-19 and was seen by cardiology recently. Elevated BNP level without evidence of acute CHF. Acute kidney injury secondary infection. Improving Hypernatremia due to dehydration and volume depletion improved now Hypertension Hyperlipidemia Metabolic and toxic encephalopathy due to infection GI prophylaxis with PPI and DVT prophylaxis with SCDs Plan: Patient will be continued gentle IV hydration and monitor H&H. Hemoglobin is fairly stable compared to recent admission. GI and general surgery has seen the patient and recommended no intervention at this time. Continue with oral intake and multivitamins and follow-up closely. Anticipate discharge back to rehab in the next 24 to 48 hours if the hemoglobin remains stable. Prognosis guarded with multiple medical problems and comorbid conditions. Time with Patient: Greater than 30
[2020-02-08] MEDS: PANTOPRAZOLE 40 MG TABLET PO SCH (05:45)
[2020-02-08] MEDS: SODIUM CHLORIDE 0.9% 1,000 ML IV SCH ×2 (05:46→15:08)
[2020-02-08 06:34] LABS: Glucose,Whole Blood 106 mg/dL (75-99)
[2020-02-08] MEDS: ZINC SULFATE 220 MG CAP PO SCH (08:40)
[2020-02-08] MEDS: METOPROLOL TARTRATE 50 MG TAB PO SCH ×2 (08:40→17:12)
[2020-02-08] MEDS: ASCORBIC ACID 500 MG TAB PO SCH ×2 (08:40→20:43)
[2020-02-08] MEDS: CHOLECALCIFEROL 1,000 UNIT TAB PO SCH (08:40)
[2020-02-08 11:30] LABS: Calcium 7.6 mg/dL (8.4-10.2); Potassium 4.1 mmol/L (3.5-5.1)
[2020-02-08 11:33] LABS: Anisocytosis Slight; HCT 27.9 % (34.0-46.0); HGB 8.9 gm/dL (11.4-16.0); Hypochromasia Moderate; MCH 31.1 pg (25.0-35.0); MCHC 32.1 g/dL (31.0-37.0); MCV 97.1 fL (80.0-100.0); Macrocytosis Slight; Poikilocytosis Slight; RBC 2.87 m/uL (3.80-5.40); RDW 18.1 % (11.5-15.5); WBC 5.5 k/uL (3.8-10.6)
[2020-02-08 11:41] LABS: Band Neutrophils % 1 %; Eosinophils # (M) 0.11 k/uL (0-0.7); Lymphocytes # (M) 0.39 k/uL (1.0-4.8); Monocytes # (M) 0.17 k/uL (0-1.0); Neutrophils % (M) 87 %; Nucleated Red Blood Cells 0 /100 WBC (0-0); Total Cells Counted 100
[2020-02-08 12:18] LABS: Glucose,Whole Blood 197 mg/dL (75-99)
[2020-02-08 12:53] LABS: Prothrombin Time 9.9 sec (9.0-12.0)
--- NOTE | 2020-02-08 13:12 | P.PN ---
Subjective Progress Note Date: 02/08/20 Principal diagnosis: GI bleed, diverticulosis, anemia Patient is seen lying in bed with no acute complaints. No reports of GI bleeding, however this afternoon the nurse taking care of the patient did contact our service to report that a clot was passed per rectum. Otherwise justin wayne has remained stable. Objective - Vital Signs Vital signs: Vital Signs Temp 97.8 F 02/08/20 01:54 Pulse 86 02/08/20 01:54 Resp 16 02/08/20 01:54 BP 132/80 02/08/20 01:54 Pulse Ox 98 02/08/20 01:54 Intake & Output 02/07/20 02/08/20 02/08/20 18:59 06:59 18:59 Output Total 600 400 Balance -600 -400 Weight 84.5 kg 85.5 kg Output: Urine 600 400 Other: Voiding Method Indwelling Catheter Indwelling Catheter - Exam On physical examination, patient appears comfortable in no apparent distress. HEAD: Normocephalic, atraumatic. EYES: No scleral icterus. No conjunctival injection. MOUTH: No lesions, tongue midline. NECK: Trachea midline, no gross abnormalities. ABDOMEN: Soft, obese, PEG tube site is clean dry and intact. Bowel sounds are positive. No organomegaly. No guarding or rigidity. EXTREMITIES: No pedal edema. SKIN: No rashes, no jaundice. NEUROLOGIC: Alert and oriented to person. - Labs CBC & Chem 7: 02/08/20 10:30 02/08/20 10:30 Labs: Abnormal Lab Results - Last 24 Hours (Table) 02/06/20 02/07/20 02/07/20 Range/Units 18:03 12:00 16:25 POC Glucose (mg/dL) 132 H 183 H (75-99) mg/dL Troponin I 0.200 H* (0.000-0.034) ng/mL 02/07/20 02/08/20 Range/Units 21:24 06:21 POC Glucose (mg/dL) 191 H 106 H (75-99) mg/dL Troponin I (0.000-0.034) ng/mL Microbiology - Last 24 Hours (Table) 02/07/20 06:50 Blood Culture - Preliminary Blood No Growth after 24 hours Assessment and Plan (1) Normocytic normochromic anemia Narrative/Plan: 75-year-old female with multiple medical comorbidities and recent hospitalization for treatment of infection with covid 19. Patient was seen at outside facility and sent for evaluation of hypernatremia, UTI, decubitus ulcer and anemia. On prior hospitalization patient was discharged with a hemoglobin of 8.9 and current hemoglobin is 8.5 and stable. No signs or symptoms of GI bleeding. The patient underwent both EGD with PEG tube placement and colonoscopy significant for diverticulosis with no active bleeding on last hospitalization with Dr. Singer of the surgical service. Patient did pass a blood clot today however hemoglobin has remained stable at 8.5, likely related to diverticular disease. Current Visit: Yes Status: Acute Code(s): D64.9 - ANEMIA, UNSPECIFIED SNOMED Code(s): 51571475 (2) Diverticulosis Current Visit: Yes Status: Acute Code(s): K57.90 - DVRTCLOS OF INTEST, PART UNSP, W/O PERF OR ABSCESS W/O BLEED SNOMED Code(s): 342152944 Plan: Supportive care Okay for diet as tolerated Continue monitor for signs or symptoms of bleeding Continue to monitor hemoglobin and hematocrit and transfuse as needed Surgical service consulted, patient underwent EGD with PEG tube placement and colonoscopy with her service on prior hospitalization No plans for endoscopy at this time, suspicion is for diverticular bleeding, patient continues to have symptoms or further fall in hemoglobin can consider vi roxana capsule endoscopy otherwise we'll continue medical management Thank you for allowing us to participate in the care of the patient we will continue to follow
--- NOTE | 2020-02-08 16:32 | P.PN ---
Subjective Progress Note Date: 02/08/20 CHIEF COMPLAINT: Hematochezia HISTORY OF PRESENT ILLNESS: The patient is a 75 year old female re-admitted secondary to blood in stools. She has history of dementia. Per discussion with nursing, patient had a large clot the size of the palm. GI was consulted. Patient denies any current complaints. Patient has baseline dementia. No moderate abdominal pain. REVIEW OF ORGAN SYSTEMS: No fevers or chills. Has dementia. PHYSICAL EXAM: VITALS: Reviewed CONSTITUTIONAL: Well developed and in no acute distress. EYES: Conjuctivae without sclera icterus. Extraocular movements grossly intact. HEAD, EARS, NOSE, THROAT: Moist buccal mucosa. Head is atraumatic, normocephalic. Hears conversational speech. No nasal drainage. RESPIRATORY: Non-labored respirations and equal bilateral excursions. No gross wheezes. CARDIOVASCULAR: Palpable 2+ radial pulses. ABDOMEN: Soft. Non-tender. Nondistended. No peritonitis MUSCULOSKELETAL: Nail and fingers with good capillary refill. SKIN: Warm and well perfused with good skin turgor. NEUROLOGIC: Cranial nerves II through XII grossly intact. No focal or lateralizing signs. PSYCH: Alert and oriented to person. CLINCAL LABS: Reviewed. WBC 5.3. Hgb 8.5 up to 8.9. ASSESSMENT: 1. GI bleed 2. Thrombocytopenia PLAN: 1. May need repeat colonoscopy as she her rectal bleeding continues. 2. Monitor hemoglobin including platelets Objective - Vital Signs Vital signs: Vital Signs Temp 97.4 F L 02/08/20 08:00 Pulse 92 02/08/20 08:00 Resp 20 02/08/20 08:00 BP 136/67 02/08/20 08:00 Pulse Ox 97 02/08/20 08:00 Intake & Output 02/07/20 02/08/20 02/08/20 18:59 06:59 18:59 Output Total 600 400 100 Balance -600 -400 -100 Weight 84.5 kg 85.5 kg Output: Urine 600 400 100 Other: Voiding Method Indwelling Catheter Indwelling Catheter Indwelling Catheter - Labs CBC & Chem 7: 02/08/20 10:30 02/08/20 10:30 Labs: Abnormal Lab Results - Last 24 Hours (Table) 02/07/20 02/08/20 02/08/20 Range/Units 21:24 06:21 10:30 RBC 2.87 L (3.80-5.40) m/uL Hgb 8.9 L (11.4-16.0) gm/dL Hct 27.9 L (34.0-46.0) % RDW 18.1 H (11.5-15.5) % Lymphocytes # (Manual) 0.39 L (1.0-4.8) k/uL Chloride (98-107) mmol/L BUN (7-17) mg/dL Creatinine (0.52-1.04) mg/dL Glucose (74-99) mg/dL POC Glucose (mg/dL) 191 H 106 H (75-99) mg/dL Calcium (8.4-10.2) mg/dL Stool Occult Blood (Negative) Crossmatch 02/08/20 02/08/20 02/08/20 Range/Units 10:30 11:30 12:03 RBC (3.80-5.40) m/uL Hgb (11.4-16.0) gm/dL Hct (34.0-46.0) % RDW (11.5-15.5) % Lymphocytes # (Manual) (1.0-4.8) k/uL Chloride 117 H (98-107) mmol/L BUN 94 H (7-17) mg/dL Creatinine 1.37 H (0.52-1.04) mg/dL Glucose 157 H (74-99) mg/dL POC Glucose (mg/dL) (75-99) mg/dL Calcium 7.6 L (8.4-10.2) mg/dL Stool Occult Blood Positive H (Negative) Crossmatch See Detail 02/08/20 Range/Units 12:17 RBC (3.80-5.40) m/uL Hgb (11.4-16.0) gm/dL Hct (34.0-46.0) % RDW (11.5-15.5) % Lymphocytes # (Manual) (1.0-4.8) k/uL Chloride (98-107) mmol/L BUN (7-17) mg/dL Creatinine (0.52-1.04) mg/dL Glucose (74-99) mg/dL POC Glucose (mg/dL) 197 H (75-99) mg/dL Calcium (8.4-10.2) mg/dL Stool Occult Blood (Negative) Crossmatch Microbiology - Last 24 Hours (Table) 02/07/20 06:50 Blood Culture - Preliminary Blood No Growth after 24 hours Assessment and Plan (1) GI bleed Current Visit: Yes Status: Acute Code(s): K92.2 - GASTROINTESTINAL HEMORRHAGE, UNSPECIFIED SNOMED Code(s): 57110260 (2) Normocytic normochromic anemia Current Visit: Yes Status: Acute Code(s): D64.9 - ANEMIA, UNSPECIFIED SNOMED Code(s): 42958813 (3) COVID-19 Current Visit: No Status: Acute Code(s): U07.1 - COVID-19 SNOMED Code(s): 817857575 (4) Thrombocytopenia Current Visit: Yes Status: Acute Code(s): D69.6 - THROMBOCYTOPENIA, UNSPECIFIED SNOMED Code(s): 085575914
[2020-02-08 17:06] LABS: Glucose,Whole Blood 154 mg/dL (75-99)
[2020-02-08] MEDS: INSULIN DETEMIR (LEVEMIR) 100 UNIT/ML SYR SQ SCH (21:07)
[2020-02-08 21:08] LABS: Glucose,Whole Blood 153 mg/dL (75-99)
--- NOTE | 2020-02-08 23:59 | P.PN ---
Subjective Progress Note Date: 02/08/20 Principal diagnosis: Normocytic normochromic anemia without any active GI bleed. Patient is a 75-year-old female with a known history of hypertension, hyperlipidemia and recent admission with COVID-19 pneumonia with prolonged hospital stay due to hypoxic respiratory failure and was discharged from the hospital on 02/03/2020 was transferred from [facility] and [facility] due to abnormal labs. Apparently patient was found to be hyponatremic with sodium level 151, hemoglobin 8.7 and BNP 16,000. Patient was given Protonix and also dose of Rocephin for possible UTI and was transferred to [facility] for higher level of care. Patient is awake alert and oriented x1-2 at baseline. Denied any complaints of chest pain or shortness of breath. Otherwise patient is a poor historian and most of the history was taken from the outside hospital records and ER note. During recent hospital stay patient was found to be anemic with hemoglobin level dropped down below 7 and transfused with PRBC. Hemoglobin was 8.9 on the day of discharge. Patient underwent colonoscopy which showed diverticulosis without active bleeding. Patient is otherwise tolerating oral diet. No fever no chills. Currently saturating well on room air. No diarrhea. Laboratory data showed WBC 5.3, hemoglobin 8.5, platelets 143, sodium 145, potassium 4.1, BUN 96 and creatinine 1.26 Chest x-ray showed there are chronic peripheral pulmonary infiltrates probably due to pulmonary fibrosis similar to old exam. No heart failure is seen. 02/08/2020 Patient is currently resting on the bed comfortably. No complaints of chest pain or shortness of breath. Patient did have a blood clot per rectum today afternoon. Hemoglobin otherwise stable. Patient is tolerating oral diet. Monitor H&H. No plans for colonoscopy at this time. General surgery is on board as well. Current medications reviewed. Objective - Vital Signs Vital signs: Vital Signs Temp 97.4 F L 02/08/20 08:00 Pulse 92 02/08/20 08:00 Resp 20 02/08/20 08:00 BP 136/67 02/08/20 08:00 Pulse Ox 97 02/08/20 08:00 Intake & Output 02/07/20 02/08/20 02/08/20 18:59 06:59 18:59 Output Total 600 400 100 Balance -600 -400 -100 Weight 84.5 kg 85.5 kg Output: Urine 600 400 100 Other: Voiding Method Indwelling Catheter Indwelling Catheter Indwelling Catheter - Exam PHYSICAL EXAMINATION: Patient is lying in the bed comfortably, no acute distress, awake alert and orie nted x1.. HEENT: Normocephalic. Neck is supple. Pupils reactive. Nostrils clear. Oral cavity is moist. Ears reveal no drainage. Neck reveals no JVD, carotid bruits, or thyromegaly. CHEST EXAMINATION: Trachea is central. Symmetrical expansion. Lung kaiser clear to auscultation and percussion. CARDIAC: Normal S1, S2 with no gallops. No murmurs ABDOMEN: Soft. Bowel sounds normal. No organomegaly. No abdominal bruits. Extremities: reveal no edema. No clubbing or cyanosis Neurologically awake, alert, oriented x1 with well-coordinated movements. dementia, No focal deficits noted Skin: No rash or skin lesions. Psychiatric: Coperative. Could not be assessed completely. Musculoskeletal: No joint swelling or deformity. - Labs CBC & Chem 7: 02/08/20 10:30 02/08/20 10:30 Labs: Abnormal Lab Results - Last 24 Hours (Table) 02/07/20 02/07/20 02/08/20 Range/Units 16:25 21:24 06:21 RBC (3.80-5.40) m/uL Hgb (11.4-16.0) gm/dL Hct (34.0-46.0) % RDW (11.5-15.5) % Lymphocytes # (Manual) (1.0-4.8) k/uL Chloride (98-107) mmol/L BUN (7-17) mg/dL Creatinine (0.52-1.04) mg/dL Glucose (74-99) mg/dL POC Glucose (mg/dL) 183 H 191 H 106 H (75-99) mg/dL Calcium (8.4-10.2) mg/dL Stool Occult Blood (Negative) Crossmatch 02/08/20 02/08/20 02/08/20 Range/Units 10:30 10:30 11:30 RBC 2.87 L (3.80-5.40) m/uL Hgb 8.9 L (11.4-16.0) gm/dL Hct 27.9 L (34.0-46.0) % RDW 18.1 H (11.5-15.5) % Lymphocytes # (Manual) 0.39 L (1.0-4.8) k/uL Chloride 117 H (98-107) mmol/L BUN 94 H (7-17) mg/dL Creatinine 1.37 H (0.52-1.04) mg/dL Glucose 157 H (74-99) mg/dL POC Glucose (mg/dL) (75-99) mg/dL Calcium 7.6 L (8.4-10.2) mg/dL Stool Occult Blood Positive H (Negative) Crossmatch 02/08/20 02/08/20 Range/Units 12:03 12:17 RBC (3.80-5.40) m/uL Hgb (11.4-16.0) gm/dL Hct (34.0-46.0) % RDW (11.5-15.5) % Lymphocytes # (Manual) (1.0-4.8) k/uL Chloride (98-107) mmol/L BUN (7-17) mg/dL Creatinine (0.52-1.04) mg/dL Glucose (74-99) mg/dL POC Glucose (mg/dL) 197 H (75-99) mg/dL Calcium (8.4-10.2) mg/dL Stool Occult Blood (Negative) Crossmatch See Detail Microbiology - Last 24 Hours (Table) 02/07/20 06:50 Blood Culture - Preliminary Blood No Growth after 24 hours Assessment and Plan Assessment: Normocytic normochromic anemia without any active GI bleed. Possible diverticular bleed. Hemoglobin is stable compared to last admission. Possible urinary tract infection. UA negative on admission here Recent COVID-19 infection with hypoxic respiratory failure. On room air current ly. Elevated troponin level likely due to recent COVID-19 and was seen by cardiology recently. Elevated BNP level without evidence of acute CHF. Acute kidney injury secondary infection. Improving Hypernatremia due to dehydration and volume depletion improved now Hypertension Hyperlipidemia Metabolic and toxic encephalopathy due to infection GI prophylaxis with PPI and DVT prophylaxis with SCDs Plan: Patient will be continued gentle IV hydration and monitor H&H. Hemoglobin is fairly stable compared to recent admission. GI and general surgery has seen the patient and recommended no intervention at this time. Continue with oral intake and multivitamins and follow-up closely. Anticipate discharge back to rehab in the next 24 to 48 hours if the hemoglobin remains stable. Prognosis guarded with multiple medical problems and comorbid conditions. Time with Patient: Greater than 30
[2020-02-09] MEDS: SODIUM CHLORIDE 0.9% 1,000 ML IV SCH ×2 (01:43→04:26)
[2020-02-09] MEDS: PANTOPRAZOLE 40 MG TABLET PO SCH (05:42)
[2020-02-09 06:32] LABS: Glucose,Whole Blood 90 mg/dL (75-99)
[2020-02-09] MEDS: CHOLECALCIFEROL 1,000 UNIT TAB PO SCH (10:07)
[2020-02-09] MEDS: ASCORBIC ACID 500 MG TAB PO SCH ×2 (10:07→21:11)
[2020-02-09] MEDS: ZINC SULFATE 220 MG CAP PO SCH (10:07)
[2020-02-09 10:08] LABS: Calcium 7.7 mg/dL (8.4-10.2); Potassium 4.5 mmol/L (3.5-5.1)
[2020-02-09] MEDS: METOPROLOL TARTRATE 50 MG TAB PO SCH ×2 (10:08→17:30)
[2020-02-09 10:48] LABS: Anisocytosis Slight; HGB 9.5 gm/dL (11.4-16.0); Hypochromasia Moderate; MCHC 31.6 g/dL (31.0-37.0); MCV 98.1 fL (80.0-100.0); Macrocytosis Slight; Mean Platelet Volume 10.2; Platelet Count 165 k/uL (150-450); Poikilocytosis Slight; RBC 3.06 m/uL (3.80-5.40); RDW 17.6 % (11.5-15.5); WBC 6.4 k/uL (3.8-10.6)
[2020-02-09 11:29] LABS: Band Neutrophils % 1 %; Eosinophils # (M) 0.13 k/uL (0-0.7); Lymphocytes # (M) 0.45 k/uL (1.0-4.8); Metamyelocytes # (M) 0.19 k/uL (0); Metamyelocytes % 3 %; Monocytes # (M) 0.38 k/uL (0-1.0); Myelocytes # (M) 0.13 k/uL (0); Myelocytes % 2 %; Neutrophils % (M) 81 %; Nucleated Red Blood Cells 0 /100 WBC (0-0); Polychromasia Present; Total Cells Counted 200
[2020-02-09 11:35] LABS: Glucose,Whole Blood 76 mg/dL (75-99)
[2020-02-09] MEDS ORDERED: DEXTROSE 5% IN WATER 1,000 ML IV ONE (12:01)
--- NOTE | 2020-02-09 12:03 | P.PN ---
Subjective Progress Note Date: 02/09/20 CHIEF COMPLAINT: Hematochezia HISTORY OF PRESENT ILLNESS: Patient presents to the hospital secondary to blood in the stools. She has a known history of dementia. Nursing staff reports yesterday patient did have a large blood clot about the size of her palm. Last night patient had a bowel movement with no blood present. Patient has had no active bleeding this morning. She had a colonoscopy on 02/02/2020 which had revealed diverticulosis. She is tolerating diet. Denies any abdominal pain. Afebrile. WBC 6.4 hemoglobin is up to 9.5 PHYSICAL EXAM: VITAL SIGNS: Reviewed. GENERAL: Well-developed in no acute distress. HEENT: No sclera icterus. Extraocular movements grossly intact. Moist buccal mucosa. Head is atraumatic, normocephalic. ABDOMEN: Soft. Nondistended. Nontender. NEUROLOGIC: pleasantly confused Cranial nerves II through XII grossly intact. ASSESSMENT: 1. Possible diverticular bleed 2. Acute GI bleed 3. Acute on chronic blood loss Anemia PLAN: -No surgical intervention planned -Patient had recent colonoscopy on 02/02/2020 revealing diverticulosis -Patient can be discharged from surgical standpoint Physician Surfacer note has been reviewed by physician. Signing provider agrees with the documented findings, assessment, and plan of care. Objective - Vital Signs Vital signs: Vital Signs Temp 97.4 F L 02/09/20 02:00 Pulse 77 02/09/20 08:00 Resp 20 02/09/20 08:00 BP 129/94 02/09/20 08:00 Pulse Ox 98 02/09/20 08:00 Intake & Output 02/08/20 02/09/20 02/09/20 18:59 06:59 18:59 Output Total 100 1695 Balance -100 -1695 Weight 86.5 kg Output: Urine 100 1695 Other: Voiding Method Indwelling Catheter Indwelling Catheter Indwelling Catheter # Voids 0 # Bowel Movements 1 - Labs CBC & Chem 7: 02/09/20 08:46 02/09/20 08:46 Labs: Abnormal Lab Results - Last 24 Hours (Table) 02/08/20 02/08/20 02/08/20 Range/Units 11:30 12:03 12:17 RBC (3.80-5.40) m/uL Hgb (11.4-16.0) gm/dL Hct (34.0-46.0) % RDW (11.5-15.5) % Lymphocytes # (Manual) (1.0-4.8) k/uL Metamyelocytes # (Man) (0) k/uL Myelocytes # (Manual) (0) k/uL Sodium (137-145) mmol/L Chloride (98-107) mmol/L BUN (7-17) mg/dL Creatinine (0.52-1.04) mg/dL Glucose (74-99) mg/dL POC Glucose (mg/dL) 197 H (75-99) mg/dL Calcium (8.4-10.2) mg/dL Stool Occult Blood Positive H (Negative) Crossmatch See Detail 02/08/20 02/08/20 02/09/20 Range/Units 17:04 21:05 08:46 RBC 3.06 L (3.80-5.40) m/uL Hgb 9.5 L (11.4-16.0) gm/dL Hct 30.0 L (34.0-46.0) % RDW 17.6 H (11.5-15.5) % Lymphocytes # (Manual) 0.45 L (1.0-4.8) k/uL Metamyelocytes # (Man) 0.19 H (0) k/uL Myelocytes # (Manual) 0.13 H (0) k/uL Sodium (137-145) mmol/L Chloride (98-107) mmol/L BUN (7-17) mg/dL Creatinine (0.52-1.04) mg/dL Glucose (74-99) mg/dL POC Glucose (mg/dL) 154 H 153 H (75-99) mg/dL Calcium (8.4-10.2) mg/dL Stool Occult Blood (Negative) Crossmatch 02/09/20 Range/Units 08:46 RBC (3.80-5.40) m/uL Hgb (11.4-16.0) gm/dL Hct (34.0-46.0) % RDW (11.5-15.5) % Lymphocytes # (Manual) (1.0-4.8) k/uL Metamyelocytes # (Man) (0) k/uL Myelocytes # (Manual) (0) k/uL Sodium 149 H (137-145) mmol/L Chloride 119 H (98-107) mmol/L BUN 89 H (7-17) mg/dL Creatinine 1.32 H (0.52-1.04) mg/dL Glucose 70 L (74-99) mg/dL POC Glucose (mg/dL) (75-99) mg/dL Calcium 7.7 L (8.4-10.2) mg/dL Stool Occult Blood (Negative) Crossmatch Microbiology - Last 24 Hours (Table) 02/07/20 06:50 Blood Culture - Preliminary Blood No Growth after 48 hours
--- NOTE | 2020-02-09 12:52 | P.CONS ---
History of Present Illness - Reason for Consult Consult date: 02/09/20 wound care - History of Present Illness This is a 75-year-old patient being seen by the wound care center for nonhealing ulcerations to the sacrum. Patient is a resident of [facility]. Is unsure if she's had any wound care previous to the admission. Her daughter states that she routinely gets sacral ulcers. Patient is a poor historian. She states that she does not have any pain or discomfort to the site. Review of Systems Review Of Systems: Constitutional: No fever, no chills, no night sweats. No weight change. No weakness, fatigue or lethargy. No daytime sleepiness. Integumentary:reports wounds, no lesions. No rash or pruritus. No unusual bruising. No change in hair or nails. Past Medical History Past Medical History: Hyperlipidemia, Hypertension, Renal Disease Additional Past Medical History / Comment(s): Covid, Anemia ; Chronic kidney disease; ARDS History of Any Multi-Drug Resistant Organisms: None Reported Past Surgical History: Orthopedic Surgery Additional Past Surgical History / Comment(s): Peg tube Past Psychological History: No Psychological Hx Reported Smoking Status: Never smoker Past Alcohol Use History: None Reported Past Drug Use History: None Reported - Past Family History Father Family Medical History: Pulmonary Embolus Additional Family Medical History / Comment(s): Mother History Unknown: Yes Additional Family Medical History / Comment(s): " from old age" age 93 Daughter(s) Family Medical History: Hypertension Medications and Allergies Home Medications Medication Instructions Recorded Confirmed Type Albuterol Sulfate [Proventil Hfa] 1 puff INHALATION RT-Q6H PRN 01/05/20 02/06/20 History Ascorbic Acid [Vitamin C] 500 mg PO BID tab 01/29/20 02/06/20 Rx Aspirin 81 mg PO DAILY chew 01/29/20 02/06/20 Rx Cholecalciferol [Vitamin D3 (25 5,000 unit PO DAILY tab 01/29/20 02/06/20 Rx Mcg = 1000 Iu)] Insulin Detemir (Levemir) [Levemir] 10 unit SQ HS syr 01/29/20 02/06/20 Rx Zinc Sulfate [Orazinc] 220 mg PO DAILY cap 01/29/20 02/06/20 Rx Acetaminophen Tab [Tylenol] 650 mg PO Q6HR PRN 02/06/20 02/06/20 History Glucerna 1.2 Oren 240 ml PO QID@03,09,15,02/06/20 02/06/20 History Heparin Sodium,Porcine [Heparin 5,000 unit SQ BID@0800,2000 02/06/20 02/06/20 History Sodium] INSULIN ASPART (NovoLOG) [NovoLOG See Protocol SQ ACHS 02/06/20 02/06/20 History (formulary)] Loperamide [Imodium] 2 - 4 mg PO Q3H PRN 02/06/20 02/06/20 History Metoprolol Tartrate [Lopressor] 50 mg PO BID@0800,1600 02/06/20 02/06/20 History Pantoprazole [Protonix] 40 mg PO AC-BRKFST #30 tablet. 02/09/20 Rx Allergies Allergy/AdvReac Type Severity Reaction Status Date / Time No Known Allergies Allergy Verified 02/06/20 18:17 Physical Exam Vitals: Vital Signs Temp Pulse Resp BP BP Pulse Ox 02/09/20 08:00 77 20 129/94 98 02/09/20 02:00 97.4 F L 76 16 159/83 98 02/08/20 20:00 97.4 F L 70 17 133/62 98 02/08/20 14:00 98.8 F 77 20 140/87 98 Intake and Output 02/08/20 02/09/20 02/09/20 22:59 06:59 14:59 Output Total 350 1345 Balance -350 -1345 Output: Urine 350 1345 Other: Voiding Method Indwelling Catheter Indwelling Catheter # Voids 0 # Bowel Movements 1 Weight 86.5 kg Physical exam: General Appearance: Alert, cooperative, no distress, appears stated age. Skin: full thickness ulceration to the right gluteus cluster of 2: Superior ulceration is a stage II pressure ulcer with fatty layer exposure, distal ulceration is an unstageable pressure ulcer with eschar noted within the wound bed, left gluteus ulceration superior is a stage II ulceration fat layer exposure, inferior ulceration is stage II pressure ulcer fat layer exposure. Minimal granulation seen throughout all wound beds with significant amount of slough and eschar.all other Skin color, texture, tugor normal, no rashes or lesions. Neurologic: Alert oriented x3 Results CBC & Chem 7: 02/09/20 08:46 02/09/20 08:46 Labs: Abnormal Lab Results - Last 24 Hours (Table) 02/08/20 02/08/20 02/08/20 Range/Units 12:03 17:04 21:05 RBC (3.80-5.40) m/uL Hgb (11.4-16.0) gm/dL Hct (34.0-46.0) % RDW (11.5-15.5) % Lymphocytes # (Manual) (1.0-4.8) k/uL Metamyelocytes # (Man) (0) k/uL Myelocytes # (Manual) (0) k/uL Sodium (137-145) mmol/L Chloride (98-107) mmol/L BUN (7-17) mg/dL Creatinine (0.52-1.04) mg/dL Glucose (74-99) mg/dL POC Glucose (mg/dL) 154 H 153 H (75-99) mg/dL Calcium (8.4-10.2) mg/dL Crossmatch See Detail 02/09/20 02/09/20 Range/Units 08:46 08:46 RBC 3.06 L (3.80-5.40) m/uL Hgb 9.5 L (11.4-16.0) gm/dL Hct 30.0 L (34.0-46.0) % RDW 17.6 H (11.5-15.5) % Lymphocytes # (Manual) 0.45 L (1.0-4.8) k/uL Metamyelocytes # (Man) 0.19 H (0) k/uL Myelocytes # (Manual) 0.13 H (0) k/uL Sodium 149 H (137-145) mmol/L Chloride 119 H (98-107) mmol/L BUN 89 H (7-17) mg/dL Creatinine 1.32 H (0.52-1.04) mg/dL Glucose 70 L (74-99) mg/dL POC Glucose (mg/dL) (75-99) mg/dL Calcium 7.7 L (8.4-10.2) mg/dL Crossmatch Microbiology - Last 24 Hours (Table) 02/07/20 06:50 Blood Culture - Preliminary Blood No Growth after 48 hours Assessment and Plan (1) Pressure ulcer of sacral region, stage 2 Current Visit: Yes Status: Acute Code(s): L89.152 - PRESSURE ULCER OF SACRAL REGION, STAGE 2 SNOMED Code(s): 784216966 (2) Pressure ulcer of sacral region, unstageable Current Visit: Yes Status: Acute Code(s): L89.150 - PRESSURE ULCER OF SACRAL REGION, UNSTAGEABLE SNOMED Code(s): 109447591 Plan: Apply honey alginate, saline moistened gauze, border foam. Change Sunday. Turn patient every 2 hours. thank you for the consultation any questions was contact the wound care center DNP note has been reviewed and discussed with Dr. Desai and the impression and plan of care has been directed as dictated.
--- NOTE | 2020-02-09 15:13 | P.PN ---
Subjective Progress Note Date: 02/09/20 Principal diagnosis: GI Bleed, diverticulosis, anemia This is a 75-year-old white female who was admitted to the hospital for anemia, she had a recent hospitalization for Covid 19 infection. While in the hospital she had an EGD with PEG tube placement in early January. She also had a colonoscopy due to a lower GI bleed by Dr. Singer on 02/01/2022 revealed diverticulosis. She is currently tolerating a diet, denying any abdominal pain, nausea or vomiting. She's been afebrile. Her hemoglobin is up to 9.5 today. She did pass a large blood clot from the rectum yesterday, she has had no further rectal bleeding reported today. Objective - Vital Signs Vital signs: Vital Signs Temp 97.4 F L 02/09/20 02:00 Pulse 77 02/09/20 08:00 Resp 20 02/09/20 08:00 BP 129/94 02/09/20 08:00 Pulse Ox 98 02/09/20 08:00 Intake & Output 02/08/20 02/09/20 02/09/20 18:59 06:59 18:59 Output Total 100 1695 Balance -100 -1695 Weight 86.5 kg Output: Urine 100 1695 Other: Voiding Method Indwelling Catheter Indwelling Catheter Indwelling Catheter # Voids 0 # Bowel Movements 1 - Exam General appearance: The patient is alert, pleasantly confused, in no acute distress.. HET: Head is normocephalic and atraumatic. Conjunctiva pink. Sclera anicteric. Neck: Supple without lymphadenopathy. Abdomen: Soft, nontender, nondistended with bowel sounds. PEG tube in place and intact. No guarding or rigidity. Extremities: Normal skin color and turgor. No pedal edema Neurological: No focal deficits. Alert but confused. - Labs CBC & Chem 7: 02/09/20 08:46 02/09/20 08:46 Labs: Abnormal Lab Results - Last 24 Hours (Table) 02/08/20 02/08/20 02/08/20 Range/Units 10:30 10:30 11:30 RBC 2.87 L (3.80-5.40) m/uL Hgb 8.9 L (11.4-16.0) gm/dL Hct 27.9 L (34.0-46.0) % RDW 18.1 H (11.5-15.5) % Lymphocytes # (Manual) 0.39 L (1.0-4.8) k/uL Chloride 117 H (98-107) mmol/L BUN 94 H (7-17) mg/dL Creatinine 1.37 H (0.52-1.04) mg/dL Glucose 157 H (74-99) mg/dL POC Glucose (mg/dL) (75-99) mg/dL Calcium 7.6 L (8.4-10.2) mg/dL Stool Occult Blood Positive H (Negative) Crossmatch 02/08/20 02/08/20 02/08/20 Range/Units 12:03 12:17 17:04 RBC (3.80-5.40) m/uL Hgb (11.4-16.0) gm/dL Hct (34.0-46.0) % RDW (11.5-15.5) % Lymphocytes # (Manual) (1.0-4.8) k/uL Chloride (98-107) mmol/L BUN (7-17) mg/dL Creatinine (0.52-1.04) mg/dL Glucose (74-99) mg/dL POC Glucose (mg/dL) 197 H 154 H (75-99) mg/dL Calcium (8.4-10.2) mg/dL Stool Occult Blood (Negative) Crossmatch See Detail 02/08/20 Range/Units 21:05 RBC (3.80-5.40) m/uL Hgb (11.4-16.0) gm/dL Hct (34.0-46.0) % RDW (11.5-15.5) % Lymphocytes # (Manual) (1.0-4.8) k/uL Chloride (98-107) mmol/L BUN (7-17) mg/dL Creatinine (0.52-1.04) mg/dL Glucose (74-99) mg/dL POC Glucose (mg/dL) 153 H (75-99) mg/dL Calcium (8.4-10.2) mg/dL Stool Occult Blood (Negative) Crossmatch Microbiology - Last 24 Hours (Table) 02/07/20 06:50 Blood Culture - Preliminary Blood No Growth after 48 hours Assessment and Plan (1) Normocytic normochromic anemia Narrative/Plan: 75-year-old female with multiple medical comorbidities and recent hospitalization for treatment of infection with covid 19. Patient was seen at outside facility and sent for evaluation of hypernatremia, UTI, decubitus ulcer and anemia. On prior hospitalization patient was discharged with a hemoglobin of 8.9 and current hemoglobin is 8.5 and stable. No signs or symptoms of GI bleeding. The patient underwent both EGD with PEG tube placement and colonoscopy significant for diverticulosis with no active bleeding on last hospitalization with Dr. Singer of the surgical service. Patient did pass a blood clot yesterday, however hemoglobin has remained stable at 9.5 with no further episodes of bleeding. Current Visit: Yes Status: Acute Code(s): D64.9 - ANEMIA, UNSPECIFIED SNOMED Code(s): 61101694 (2) Diverticulosis Current Visit: Yes Status: Acute Code(s): K57.90 - DVRTCLOS OF INTEST, PART UNSP, W/O PERF OR ABSCESS W/O BLEED SNOMED Code(s): 219034551 Plan: Supportive care Okay for diet as tolerated Continue monitor for signs or symptoms of bleeding Continue to monitor hemoglobin and hematocrit and transfuse as needed Surgical service consulted, patient underwent EGD with PEG tube placement and colonoscopy with her service on prior hospitalization No plans for endoscopy at this time, suspicion is for diverticular bleeding, patient continues to have symptoms or further fall in hemoglobin can consider video capsule endoscopy otherwise we'll continue medical management Thank you for allowing us to participate in the care of the patient we will continue to follow Dr. Isra Shaw I agree with the dictator's note, documented as a scribe by Cheryl Wiggins.
[2020-02-09 17:05] LABS: Glucose,Whole Blood 214 mg/dL (75-99)
[2020-02-09 20:06] LABS: Glucose,Whole Blood 246 mg/dL (75-99)
[2020-02-09] MEDS: INSULIN DETEMIR (LEVEMIR) 100 UNIT/ML SYR SQ SCH (21:11)
--- NOTE | 2020-02-10 00:15 | P.PN ---
Subjective Progress Note Date: 02/09/20 Principal diagnosis: Normocytic normochromic anemia without any active GI bleed. Patient is a 75-year-old female with a known history of hypertension, hyperlipidemia and recent admission with COVID-19 pneumonia with prolonged hospital stay due to hypoxic respiratory failure and was discharged from the hospital on 02/03/2020 was transferred from [facility] and [facility] due to abnormal labs. Apparently patient was found to be hyponatremic with sodium level 151, hemoglobin 8.7 and BNP 16,000. Patient was given Protonix and also dose of Rocephin for possible UTI and was transferred to [facility] for higher level of care. Patient is awake alert and oriented x1-2 at baseline. Denied any complaints of chest pain or shortness of breath. Otherwise patient is a poor historian and most of the history was taken from the outside hospital records and ER note. During recent hospital stay patient was found to be anemic with hemoglobin level dropped down below 7 and transfused with PRBC. Hemoglobin was 8.9 on the day of discharge. Patient underwent colonoscopy which showed diverticulosis without active bleeding. Patient is otherwise tolerating oral diet. No fever no chills. Currently saturating well on room air. No diarrhea. Laboratory data showed WBC 5.3, hemoglobin 8.5, platelets 143, sodium 145, potassium 4.1, BUN 96 and creatinine 1.26 Chest x-ray showed there are chronic peripheral pulmonary infiltrates probably due to pulmonary fibrosis similar to old exam. No heart failure is seen. 02/08/2020 Patient is currently resting on the bed comfortably. No complaints of chest pain or shortness of breath. Patient did have a blood clot per rectum today afternoon. Hemoglobin otherwise stable. Patient is tolerating oral diet. Monitor H&H. No plans for colonoscopy at this time. General surgery is on board as well. 02/09/2020 Patient is currently resting in the bed comfortably. Denies any complaints of chest pain or shortness breath. Appears to be more awake and oriented. No episodes of blood in the stool blood clots per rectum. Hemoglobin actually improved to 9.5 today. Otherwise laboratory data showed sodium 149 and potassium 4.5 and chloride 119, BUN 89 creatinine 1.32 IV fluids will be changed to D5 water and follow-up electrolytes tomorrow. General surgery is following. No surgical intervention was recommended patient recently had colonoscopy due to GI bleed. Anticipate discharge back to rehab with improvement in electrolyte panel. Patient is able to tolerate oral diet. Current medications reviewed. Objective - Vital Signs Vital signs: Vital Signs Temp 97.4 F L 02/09/20 02:00 Pulse 76 02/09/20 14:00 Resp 20 02/09/20 14:00 BP 114/73 02/09/20 14:00 Pulse Ox 98 02/09/20 14:00 Intake & Output 02/09/20 02/09/20 02/10/20 06:59 18:59 06:59 Intake Total 90 Output Total 1695 400 Balance -1695 -310 Weight 86.5 kg 86.5 kg Intake: Oral 90 Output: Urine 1695 400 Other: Voiding Method Indwelling Catheter Indwelling Catheter # Voids 0 # Bowel Movements 1 - Exam PHYSICAL EXAMINATION: Patient is lying in the bed comfortably, no acute distress, awake alert and oriented x1.. HEENT: Normocephalic. Neck is supple. Pupils reactive. Nostrils clear. Oral cavity is moist. Ears reveal no drainage. Neck reveals no JVD, carotid bruits, or thyromegaly. CHEST EXAMINATION: Trachea is central. Symmetrical expansion. Lung kaiser clear to auscultation and percussion. CARDIAC: Normal S1, S2 with no gallops. No murmurs ABDOMEN: Soft. Bowel sounds normal. No organomegaly. No abdominal bruits. Extremities: reveal no edema. No clubbing or cyanosis Neurologically awake, alert, oriented x1 with well-coordinated movements. d ementia, No focal deficits noted Skin: No rash or skin lesions. Psychiatric: Coperative. Could not be assessed completely. Musculoskeletal: No joint swelling or deformity. - Labs CBC & Chem 7: 02/09/20 08:46 02/09/20 08:46 Labs: Abnormal Lab Results - Last 24 Hours (Table) 02/08/20 02/09/20 02/09/20 Range/Units 21:05 08:46 08:46 RBC 3.06 L (3.80-5.40) m/uL Hgb 9.5 L (11.4-16.0) gm/dL Hct 30.0 L (34.0-46.0) % RDW 17.6 H (11.5-15.5) % Lymphocytes # (Manual) 0.45 L (1.0-4.8) k/uL Metamyelocytes # (Man) 0.19 H (0) k/uL Myelocytes # (Manual) 0.13 H (0) k/uL Sodium 149 H (137-145) mmol/L Chloride 119 H (98-107) mmol/L BUN 89 H (7-17) mg/dL Creatinine 1.32 H (0.52-1.04) mg/dL Glucose 70 L (74-99) mg/dL POC Glucose (mg/dL) 153 H (75-99) mg/dL Calcium 7.7 L (8.4-10.2) mg/dL 02/09/20 02/09/20 Range/Units 16:54 20:04 RBC (3.80-5.40) m/uL Hgb (11.4-16.0) gm/dL Hct (34.0-46.0) % RDW (11.5-15.5) % Lymphocytes # (Manual) (1.0-4.8) k/uL Metamyelocytes # (Man) (0) k/uL Myelocytes # (Manual) (0) k/uL Sodium (137-145) mmol/L Chloride (98-107) mmol/L BUN (7-17) mg/dL Creatinine (0.52-1.04) mg/dL Glucose (74-99) mg/dL POC Glucose (mg/dL) 214 H 246 H (75-99) mg/dL Calcium (8.4-10.2) mg/dL Microbiology - Last 24 Hours (Table) 02/07/20 06:50 Blood Culture - Preliminary Blood No Growth after 48 hours Assessment and Plan Assessment: Normocytic normochromic anemia without any active GI bleed. Possible diverticular bleed. Hemoglobin is stable compared to last admission. Possible urinary tract infection. UA negative on admission here Hypernatremia due to dehydration and volume depletion Recent COVID-19 infection with hypoxic respiratory failure. On room air currently. Elevated troponin level likely due to recent COVID-19 and was seen by cardiology recently. Elevated BNP level without evidence of acute CHF. Acute kidney injury secondary infection. Improving Hypernatremia due to dehydration and volume depletion improved now Hypertension Hyperlipidemia Metabolic and toxic encephalopathy due to infection GI prophylaxis with PPI and DVT prophylaxis with SCDs Plan: Patient will be continued gentle IV hydration and monitor H&H. Hemoglobin is fairly stable compared to recent admission. GI and general surgery has seen the patient and recommended no intervention at this time. Continue with oral intake and multivitamins and follow-up closely. Anticipate discharge back to rehab in the next 24 to 48 hours if the hemoglobin remains stable. Prognosis guarded with multiple medical problems and comorbid conditions. Time with Patient: Greater than 30
[2020-02-10] MEDS: PANTOPRAZOLE 40 MG TABLET PO SCH (06:02)
[2020-02-10 06:08] LABS: Glucose,Whole Blood 138 mg/dL (75-99)
[2020-02-10] MEDS: CHOLECALCIFEROL 1,000 UNIT TAB PO SCH (09:36)
[2020-02-10] MEDS: METOPROLOL TARTRATE 50 MG TAB PO SCH (09:36)
[2020-02-10] MEDS: ASCORBIC ACID 500 MG TAB PO SCH ×2 (09:36→21:53)
[2020-02-10] MEDS: ZINC SULFATE 220 MG CAP PO SCH (09:36)
[2020-02-10 10:20] LABS: Anisocytosis Slight; Calcium 7.5 mg/dL (8.4-10.2); HGB 8.7 gm/dL (11.4-16.0); Hypochromasia Moderate; MCH 30.8 pg (25.0-35.0); MCHC 31.2 g/dL (31.0-37.0); MCV 98.7 fL (80.0-100.0); Macrocytosis Slight; Mean Platelet Volume 9.1; Platelet Count 227 k/uL (150-450); Poikilocytosis Slight; Potassium 4.5 mmol/L (3.5-5.1); RBC 2.83 m/uL (3.80-5.40); WBC 7.3 k/uL (3.8-10.6)
[2020-02-10 10:46] LABS: Band Neutrophils % 3 %; Eosinophils # (M) 0.07 k/uL (0-0.7); Lymphocytes # (M) 0.66 k/uL (1.0-4.8); Monocytes # (M) 0.44 k/uL (0-1.0); Neutrophils % (M) 81 %; Nucleated Red Blood Cells 0 /100 WBC (0-0); Poikilocytosis (M) Present; Total Cells Counted 100
--- NOTE | 2020-02-10 11:17 | P.PN ---
Subjective Progress Note Date: 02/10/20 CHIEF COMPLAINT: Hematochezia HISTORY OF PRESENT ILLNESS: Patient presents to the hospital secondary to blood in the stools. She has a known history of dementia. Per nursing staff when they went in to clean patient later this morning they found patient sitting in a poor blood. She had a colonoscopy on 02/02/2020 which had revealed diverticulosis. She has tube feedings through PEG tube. Denies any abdominal pain. Afebrile. WBC 7.3 hemoglobin is 8.7 Patient was seen by wound care service regarding her sacral wound PHYSICAL EXAM: VITAL SIGNS: Reviewed. GENERAL: Well-developed in no acute distress. HEENT: No sclera icterus. Extraocular movements grossly intact. Moist buccal mucosa. Head is atraumatic, normocephalic. ABDOMEN: Soft. Nondistended. Nontender. NEUROLOGIC: pleasantly confused Cranial nerves II through XII grossly intact. ASSESSMENT: 1. Possible diverticular bleed with active bleeding 2. Acute GI bleed 3. Acute on chronic blood loss Anemia PLAN: -Check stat CBC -Make patient nothing by mouth -Hold discharge for today Physician Data Processing Systems Consultant note has been reviewed by physician. Signing provider agrees with the documented findings, assessment, and plan of care. Objective - Vital Signs Vital signs: Vital Signs Temp 97 F L 02/10/20 01:19 Pulse 88 02/10/20 01:19 Resp 18 02/10/20 01:19 BP 119/71 02/10/20 01:19 Pulse Ox 98 02/10/20 01:19 Intake & Output 02/09/20 02/10/20 02/10/20 18:59 06:59 18:59 Intake Total 90 990 Output Total 400 380 Balance -310 610 Weight 86.5 kg 91 kg Intake: Intake, IV Titration 750 Amount Dextrose 5% in Water 1, 750 000 ml @ 75 mls/hr IV . [id number] ONE Rx#:[id number] Oral 90 240 Output: Urine 400 380 Other: Voiding Method Indwelling Catheter Indwelling Catheter # Voids 0 - Labs CBC & Chem 7: 02/10/20 08:47 02/10/20 08:47 Labs: Abnormal Lab Results - Last 24 Hours (Table) 02/09/20 02/09/20 02/09/20 Range/Units 08:46 16:54 20:04 RBC (3.80-5.40) m/uL Hgb (11.4-16.0) gm/dL Hct (34.0-46.0) % RDW (11.5-15.5) % Lymphocytes # (Manual) 0.45 L (1.0-4.8) k/uL Metamyelocytes # (Man) 0.19 H (0) k/uL Myelocytes # (Manual) 0.13 H (0) k/uL Chloride (98-107) mmol/L BUN (7-17) mg/dL Creatinine (0.52-1.04) mg/dL Glucose (74-99) mg/dL POC Glucose (mg/dL) 214 H 246 H (75-99) mg/dL Calcium (8.4-10.2) mg/dL 02/10/20 02/10/20 02/10/20 Range/Units 06:07 08:47 08:47 RBC 2.83 L (3.80-5.40) m/uL Hgb 8.7 L (11.4-16.0) gm/dL Hct 28.0 L (34.0-46.0) % RDW 18.0 H (11.5-15.5) % Lymphocytes # (Manual) 0.66 L (1.0-4.8) k/uL Metamyelocytes # (Man) (0) k/uL Myelocytes # (Manual) (0) k/uL Chloride 115 H (98-107) mmol/L BUN 79 H (7-17) mg/dL Creatinine 1.22 H (0.52-1.04) mg/dL Glucose 116 H (74-99) mg/dL POC Glucose (mg/dL) 138 H (75-99) mg/dL Calcium 7.5 L (8.4-10.2) mg/dL Microbiology - Last 24 Hours (Table) 02/07/20 06:50 Blood Culture - Preliminary Blood No Growth after 72 hours
[2020-02-10 11:44] LABS: Glucose,Whole Blood 181 mg/dL (75-99)
[2020-02-10 12:12] LABS: Anisocytosis Slight; HCT 21.5 % (34.0-46.0); Hypochromasia Marked; MCH 31.1 pg (25.0-35.0); MCV 100.3 fL (80.0-100.0); Macrocytosis Slight; Mean Platelet Volume 8.9; Platelet Count 294 k/uL (150-450); Poikilocytosis Slight; RBC 2.14 m/uL (3.80-5.40); RDW 17.9 % (11.5-15.5); WBC 9.6 k/uL (3.8-10.6)
[2020-02-10 12:15] LABS: HGB 6.7 gm/dL (11.4-16.0)
[2020-02-10] MEDS ORDERED: SODIUM CHLORIDE 0.9% 1,000 ML IV ONE (12:19)
--- NOTE | 2020-02-10 13:18 | P.PN ---
Subjective Progress Note Date: 02/10/20 Principal diagnosis: GI Bleed, diverticulosis, anemia This is a 75-year-old white female who was admitted to the hospital for anemia, she had a recent hospitalization for Covid 19 infection. While in the hospital she had an EGD with PEG tube placement in early January. She also had a colonoscopy due to a lower GI bleed by Dr. Singer on 02/01/2022 revealed diverticulosis. She is currently tolerating a diet, denying any abdominal pain, nausea or vomiting. She's been afebrile. Patient had reported no further episodes of bleeding from the rectum or blood in the stool. Her morning globin was 8.7. Follow-up with the patient this afternoon, the patient had large amount of bright red blood per rectum. Hemoglobin was repeated and dropped to 6.7. Patient is currently getting transfusion of 1 unit of PRBC, and awaiting surgical evaluation. Patient will be transferred to the ICU. Objective - Vital Signs Vital signs: Vital Signs Temp 97 F L 02/10/20 01:19 Pulse 88 02/10/20 01:19 Resp 18 02/10/20 01:19 BP 119/71 02/10/20 01:19 Pulse Ox 98 02/10/20 01:19 Intake & Output 02/09/20 02/10/20 02/10/20 18:59 06:59 18:59 Intake Total 90 990 Output Total 400 380 Balance -310 610 Weight 86.5 kg 91 kg Intake: Intake, IV Titration 750 Amount Dextrose 5% in Water 1, 750 000 ml @ 75 mls/hr IV . [id number] ONE Rx#:[id number] Oral 90 240 Output: Urine 400 380 Other: Voiding Method Indwelling Catheter Indwelling Catheter # Voids 0 - Exam General appearance: The patient is alert, pleasantly confused, in no acute distress.. HET: Head is normocephalic and atraumatic. Conjunctiva pink. Sclera anicteric. Neck: Supple without lymphadenopathy. Abdomen: Soft, nontender, nondistended with bowel sounds. PEG tube in place and intact. No guarding or rigidity. Extremities: Normal skin color and turgor. No pedal edema Neurological: No focal deficits. Alert but confused. - Labs CBC & Chem 7: 02/10/20 11:45 02/10/20 08:47 Labs: Abnormal Lab Results - Last 24 Hours (Table) 02/09/20 02/09/20 02/09/20 Range/Units 08:46 08:46 16:54 RBC 3.06 L (3.80-5.40) m/uL Hgb 9.5 L (11.4-16.0) gm/dL Hct 30.0 L (34.0-46.0) % RDW 17.6 H (11.5-15.5) % Lymphocytes # (Manual) 0.45 L (1.0-4.8) k/uL Metamyelocytes # (Man) 0.19 H (0) k/uL Myelocytes # (Manual) 0.13 H (0) k/uL Sodium 149 H (137-145) mmol/L Chloride 119 H (98-107) mmol/L BUN 89 H (7-17) mg/dL Creatinine 1.32 H (0.52-1.04) mg/dL Glucose 70 L (74-99) mg/dL POC Glucose (mg/dL) 214 H (75-99) mg/dL Calcium 7.7 L (8.4-10.2) mg/dL 02/09/20 02/10/20 Range/Units 20:04 06:07 RBC (3.80-5.40) m/uL Hgb (11.4-16.0) gm/dL Hct (34.0-46.0) % RDW (11.5-15.5) % Lymphocytes # (Manual) (1.0-4.8) k/uL Metamyelocytes # (Man) (0) k/uL Myelocytes # (Manual) (0) k/uL Sodium (137-145) mmol/L Chloride (98-107) mmol/L BUN (7-17) mg/dL Creatinine (0.52-1.04) mg/dL Glucose (74-99) mg/dL POC Glucose (mg/dL) 246 H 138 H (75-99) mg/dL Calcium (8.4-10.2) mg/dL Microbiology - Last 24 Hours (Table) 02/07/20 06:50 Blood Culture - Preliminary Blood No Growth after 72 hours Assessment and Plan (1) Normocytic normochromic anemia Narrative/Plan: 75-year-old female with multiple medical comorbidities and recent hospitalization for treatment of infection with covid 19. Patient was seen at outside facility and sent for evaluation of hypernatremia, UTI, decubitus ulcer and anemia. On prior hospitalization patient was discharged with a hemoglobin of 8.9 and current hemoglobin is 8.5 and stable. No signs or symptoms of GI bleeding. The patient underwent both EGD with PEG tube placement and colonoscopy significant for diverticulosis with no active bleeding on last hospitalization with Dr. Singer of the surgical service. Patient had stated no further bleeding, this morning his repeat hemoglobin was 8.7. Current Visit: Yes Status: Acute Code(s): D64.9 - ANEMIA, UNSPECIFIED SNOMED Code(s): 15385338 (2) Diverticulosis Current Visit: Yes Status: Acute Code(s): K57.90 - DVRTCLOS OF INTEST, PART UNSP, W/O PERF OR ABSCESS W/O BLEED SNOMED Code(s): 288401811 (3) GI bleed Narrative/Plan: This afternoon the patient started having an active lower GI bleed with bright red blood per rectum. Repeat hemoglobin 6.7, 1 unit of PRBC transfusion ordered and infusing. Await surgical evaluation and recommendations as the patient underwent colonoscopy, EGD and PEG tube on her last admission earlier this month with Dr. Singer. Current Visit: Yes Status: Acute Code(s): K92.2 - GASTROINTESTINAL HEMORRHAGE, UNSPECIFIED SNOMED Code(s): 80969086 Plan: Supportive care NPO Agree with PRBC transfusion Continue monitor for signs or symptoms of bleeding Continue to monitor hemoglobin and hematocrit and transfuse as needed Surgical service consulted, patient underwent EGD with PEG tube placement and colonoscopy with their service on prior recent hospitalization No plans for endoscopy at this time, will defer to surgical services as mentioned above Thank you for allowing us to participate in the care of the patient we will continue to follow Dr. Isra Shaw I agree with the dictator's note, documented as a scribe by Cheryl Wiggins.
[2020-02-10 16:05] LABS: Glucose,Whole Blood 170 mg/dL (75-99)
[2020-02-10 16:27] LABS: Anisocytosis Slight; HCT 27.1 % (34.0-46.0); Hypochromasia Moderate; MCH 31.1 pg (25.0-35.0); MCHC 32.3 g/dL (31.0-37.0); MCV 96.4 fL (80.0-100.0); Macrocytosis Slight; Mean Platelet Volume 9.4; Platelet Count 247 k/uL (150-450); Poikilocytosis Slight; RBC 2.81 m/uL (3.80-5.40); RDW 16.8 % (11.5-15.5)
[2020-02-10 16:32] LABS: HGB 8.8 gm/dL (11.4-16.0)
[2020-02-10 17:03] LABS: Band Neutrophils % 5 %; Eosinophils # (M) 0.12 k/uL (0-0.7); Lymphocytes # (M) 1.35 k/uL (1.0-4.8); Metamyelocytes # (M) 0.25 k/uL (0); Metamyelocytes % 2 %; Monocytes # (M) 0.86 k/uL (0-1.0); Myelocytes # (M) 0.12 k/uL (0); Myelocytes % 1 %; Neutrophils % (M) 75 %; Nucleated Red Blood Cells 3 /100 WBC (0-0); Total Cells Counted 200; WBC 12.3 k/uL (3.8-10.6)
--- NOTE | 2020-02-10 19:07 | CONS ---
CONSULTATION This is a 75-year-old female who was transferred here from the [facility] for higher level of care. She apparently presented to the ER with abnormal labs. She was found there to be hypernatremic, have a UTI, and also decubitus ulcers, with anemia. She apparently was Hemoccult-positive. Hemoglobin was 8.7. Sodium was 151. BNP was 16,000. We were called today to see her because an A-team was called because she was having bright red bleeding per rectum. Her blood pressure, which was previously close to 160 systolic, was down in the mid 80s. She had a hemoglobin that dropped down to 6.7 from 8.7 -- therefore a 2-gram drop. We decided after evaluating her we should transfer her back to the intensive care unit. The patient herself cannot give any much history. She denies any abdominal pain. She apparently was on aspirin and subcutaneous heparin at the facility that she was at. She states that she apparently has not had any previous history of GI bleed, although somewhere in the medical records it notes that she has a history of diverticular disease. Nonetheless, we decided to move her to the intensive care unit once a bed opened up. GI and Surgery are on consultation. HOME MEDICATIONS: Her home medications include albuterol, Tylenol, Glucerna, subcutaneous heparin, insulin, Imodium, metoprolol, vitamin C, aspirin, vitamin D3 and zinc. ALLERGIES: DENIED. MEDICAL HISTORY: Medical history includes hyperlipidemia, hypertension, chronic kidney disease, a recent long stay in the hospital for COVID pneumonitis, and anemia. SURGICAL HISTORY: Surgical history includes PEG tube placement for enteral nutrition. SOCIAL HISTORY: Negative for tobacco, alcohol or illicit drug use. FAMILY HISTORY: Positive for father with pulmonary embolism, who is , and mother who from old age at age 93, and a daughter with a history of hypertension. REVIEW OF SYSTEMS: CONSTITUTIONAL: Weakness. NEUROLOGIC: Negative. HEENT: Negative. CARDIOVASCULAR: Negative. PULMONARY: Negative. GI: GI bleed. : Negative. RHEUMATOLOGIC: Negative. IMMUNOLOGIC: Negative. ENDOCRINOLOGIC: Negative. DERMATOLOGIC: Negative. PHYSICAL EXAMINATION: VITAL SIGNS: Current vital signs are reviewed. Temperature 97.3, heart rate 79, respiratory rate 22, blood pressure down as low as 67/47 with a mean of 54, and saturations are 100% on room air. GENERAL APPEARANCE: Appears in no acute distress. Very pale. HEENT: Examination is grossly unremarkable. NECK: Supple. Full range of motion. No adenopathy. Neck veins are flat. CARDIOVASCULAR: Examination reveals regular rhythm and rate. Heart sounds are distant. Heart rate 80 beats per minute. S1, S2 normal. LUNGS: Lungs reveal mostly clear breath sounds. No wheezes, rhonchi or crackles. ABDOMEN: Soft and rounded. Bowel sounds are noted. No tenderness on palpation. EXTREMITIES: Intact. She has profound edema and anasarca, particularly in the lower extremities, but also in the upper extremities. SKIN: Skin reveals areas of ecchymoses. NEUROLOGIC: Neurologic examination is brief but nonfocal. LABS/IMAGING: Reviewed. White count 9.6, hemoglobin 6.7, hematocrit 21.5, platelet count 394,000. Sodium 145, potassium 4.5, chloride 115. CO2 27. Anion gap is 3. BUN and creatinine were 79 and 1.22. Microbiology is currently all negative. A chest x-ray was done on the day of admission, which was 02/05. It showed some chronic peripheral abnormalities, likely consistent from her previous recent episode of COVID- 19 pneumonitis. CURRENT MEDICATIONS: Reviewed. She is on Tylenol, albuterol updrafts, vitamin C, vitamin D3, insulin, Imodium, metoprolol, Narcan, Protonix, saline IV and zinc. ASSESSMENT: 1. Acute gastrointestinal bleed; patient having bright red bleeding per rectum. The patient will be transferred to the ICU for closer monitoring. The patient's hemoglobin dropped from 8.7 to 6.7. Two units of blood were ordered. In addition, blood pressures were down in the mid-60 range, although currently up in the mid-80 range. 2. Recent nearly one-month admission from January 04 to February 02 for COVID-19 pneumonitis/pneumonia with acute hypoxemic respiratory failure. 3. Status post PEG tube placement for nutrition. 4. History of hyperlipidemia. 5. History of hypertension. 6. History of chronic kidney disease. 7. History of anemia. 8. Status post PEG tube placement. PLAN: The patient will be moved to the intensive care unit. Will monitor her more closely there. She may benefit from IV fluids as well as vasopressor. Will wait until she gets two units of blood. Hemoglobin will be repeated on a regular basis. No additional recommendations are made. Surgery and GI already have been consulted. Prognosis is guarded, given her most recent long hospital stay here from January 04 to February 02 for COVID-19 pneumonitis and acute hypoxemic respiratory failure. MMODL / IJN: [id number] /
--- NOTE | 2020-02-10 20:27 | NM ---
EXAMINATION TYPE: NM GI bleeding DATE OF EXAM: 02/10/2020 HISTORY: COMPARISON: NONE Following administration of 3 ml PYP 26.1 mCi Tc 99m Sodium Pertechnete. Immediate images post inject ion. FINDINGS: Images were obtained up to 60 minutes which failed to show evidence of any active GI bleeding in the abdomen. IMPRESSION: Negative exam. No sign of active GI bleeding.
[2020-02-10 20:51] LABS: Glucose,Whole Blood 137 mg/dL (75-99)
[2020-02-10 21:57] LABS: Anisocytosis Slight; HCT 33.9 % (34.0-46.0); HGB 10.6 gm/dL (11.4-16.0); Hypochromasia Slight; MCH 29.3 pg (25.0-35.0); MCHC 31.2 g/dL (31.0-37.0); MCV 94.1 fL (80.0-100.0); Mean Platelet Volume 8.9; Platelet Count 251 k/uL (150-450); Poikilocytosis Slight; RDW 16.7 % (11.5-15.5); WBC 12.3 k/uL (3.8-10.6)
[2020-02-10] MEDS: INSULIN DETEMIR (LEVEMIR) 100 UNIT/ML SYR SQ SCH (22:25)
[2020-02-10 22:32] LABS: Band Neutrophils % 10 %; Basophils # (M) 0.12 k/uL (0-0.2); Metamyelocytes # (M) 0.49 k/uL (0); Metamyelocytes % 4 %; Monocytes # (M) 0.62 k/uL (0-1.0); Neutrophils % (M) 68 %; Nucleated Red Blood Cells 0 /100 WBC (0-0); Polychromasia Present; Total Cells Counted 200
[2020-02-11 04:04] LABS: Anisocytosis Slight; HCT 28.1 % (34.0-46.0); HGB 9.5 gm/dL (11.4-16.0); Hypochromasia Slight; MCH 31.5 pg (25.0-35.0); MCHC 33.9 g/dL (31.0-37.0); MCV 92.8 fL (80.0-100.0); Mean Platelet Volume 8.9; Platelet Count 182 k/uL (150-450); Poikilocytosis Slight; RBC 3.02 m/uL (3.80-5.40); RDW 16.9 % (11.5-15.5); WBC 10.2 k/uL (3.8-10.6)
[2020-02-11 04:23] LABS: Calcium 7.4 mg/dL (8.4-10.2)
[2020-02-11 05:56] LABS: Band Neutrophils % 17 %; Lymphocytes # (M) 0.61 k/uL (1.0-4.8); Metamyelocytes # (M) 0.31 k/uL (0); Metamyelocytes % 3 %; Neutrophils % (M) 74 %; Nucleated Red Blood Cells 0 /100 WBC (0-0); Total Cells Counted 200
[2020-02-11 05:57] LABS: Polychromasia Present
[2020-02-11 06:01] LABS: Toxic Vacuolation Present
[2020-02-11] MEDS: PANTOPRAZOLE 40 MG TABLET PO SCH (08:45)
[2020-02-11] MEDS: ASCORBIC ACID 500 MG TAB PO SCH ×2 (08:45→20:17)
[2020-02-11] MEDS: CHOLECALCIFEROL 1,000 UNIT TAB PO SCH (08:45)
[2020-02-11] MEDS: ZINC SULFATE 220 MG CAP PO SCH (08:45)
--- NOTE | 2020-02-11 09:54 | P.PN ---
Subjective Progress Note Date: 02/11/20 Principal diagnosis: Acute GI bleed 75-year-old white female patient with the recent history of prolonged hospitalization for COVID 19 pneumonitis, and following her hospitalization patient was discharged to [facility] for rehabilitation, 2 days after her discharge on 02/06/2020 patient was brought back to the emergency department in the [facility] area for a concern of urinary tract infection, hyponatremia, and decubitus ulcers. He was also found to be Hemoccult positive, her admission hemoglobin was 8.7, sodium was 151, and she also had a elevated proBNP of 16,000. Patient was started on antibiotics in form of Rocephin, he was given IV fluids. Yesterday A-team was called on 02/10/2020 for concerns of bright red bleeding per rectum. She also became hypotensive with a systolic in the 80s, she was given IV fluids, and she received 2 units of packed red blood cells. Packed RBC scan was negative, she's had no further bleeding overnight, her blood pressure stable, she is currently complaining was seen at a rate of 50 ML per hour, she is on room air, with a pulse ox of 95-96%, blood pressures 108/65, she is in sinus mechanism with a rate of 84 BPM, she's been afebrile, he is not on any anticoagulation, she is receiving oral Protonix. Today's labs have been reviewed, showing hemoglobin of 9.5, white blood cell count is 10.2, sodium is 144, potassium is 5.0, chloride is 120, CO2 23, BUN of 78, and creatinine is 1.3. Patient is nothing by mouth, and she is being followed by surgery Objective - Vital Signs Vital signs: Vital Signs Temp 98.7 F 02/11/20 08:00 Pulse 84 02/11/20 09:00 Resp 18 02/11/20 09:00 BP 108/65 02/11/20 09:00 Pulse Ox 95 02/11/20 09:00 Intake & Output 02/10/20 02/11/20 02/11/20 18:59 06:59 18:59 Intake Total 1845 600 150 Output Total 35 147 60 Balance 1810 453 90 Weight 92.4 kg Intake: IV 1150 600 50 Sodium Chloride 0.9% 1, 1100 000 ml @ 999 mls/hr IV . Q1H1M ONE Rx#:[id number] ns 50 600 50 Intake, IV Titration 75 100 Amount Dextrose 5% in Water 1, 75 000 ml @ 75 mls/hr IV . [id number] ONE Rx#:[id number] Sodium Chloride 0.9% 1, 100 000 ml @ 50 mls/hr IV . Q20H [facility] Rx#:[id number] Blood Product 620 Rc As-1 Unit 310 [id number] Rc As-1 Unit 310 [id number] Output: Urine 35 147 60 Other: Voiding Method Indwelling Catheter Indwelling Catheter # Voids 0 # Bowel Movements 1 - Exam GENERAL EXAM: Drowsy but easily arousable, oriented 2, 75-year-old white female, on room air, with a pulse ox of 95% comfortable in no apparent distress. HEAD: Normocephalic/atraumatic. EYES: Normal reaction of pupils, equal size. Conjunctiva pink, sclera white. NOSE: Clear with pink turbinates. THROAT: No erythema or exudates. NECK: No masses, no JVD, no thyroid enlargement, no adenopathy. CHEST: No chest wall deformity. Symmetrical expansion. LUNGS: Equal air entry with no crackles, wheeze, rhonchi or dullness. CVS: Regular rate and rhythm, normal S1 and S2, no gallops, no murmurs, no rubs ABDOMEN: Soft, nontender. No hepatosplenomegaly, normal bowel sounds, no guarding or rigidity. EXTREMITIES: No clubbing, no edema, no cyanosis, 2+ pulses and upper and lower extremities. MUSCULOSKELETAL: Muscle strength and tone normal. SPINE: No scoliosis or deformity SKIN: No rashes CENTRAL NERVOUS SYSTEM: Alert and oriented -3. No focal deficits, tone is normal in all 4 extremities. PSYCHIATRIC: Alert and oriented -3. Appropriate affect. Intact judgment and insight. - Labs CBC & Chem 7: 02/11/20 03:34 02/11/20 03:34 Labs: Abnormal Lab Results - Last 24 Hours (Table) 02/08/20 02/10/20 02/10/20 Range/Units 12:03 08:47 08:47 WBC (3.8-10.6) k/uL RBC 2.83 L (3.80-5.40) m/uL Hgb 8.7 L (11.4-16.0) gm/dL Hct 28.0 L (34.0-46.0) % MCV (80.0-100.0) fL RDW 18.0 H (11.5-15.5) % Neutrophils # (Manual) (1.3-7.7) k/uL Lymphocytes # (Manual) 0.66 L (1.0-4.8) k/uL Metamyelocytes # (Man) (0) k/uL Myelocytes # (Manual) (0) k/uL Nucleated RBCs (0-0) /100 WBC Chloride 115 H (98-107) mmol/L BUN 79 H (7-17) mg/dL Creatinine 1.22 H (0.52-1.04) mg/dL Glucose 116 H (74-99) mg/dL POC Glucose (mg/dL) (75-99) mg/dL Calcium 7.5 L (8.4-10.2) mg/dL Crossmatch See Detail 02/10/20 02/10/20 02/10/20 Range/Units 11:42 11:45 15:18 WBC 12.3 H (3.8-10.6) k/uL RBC 2.14 L 2.81 L (3.80-5.40) m/uL Hgb 6.7 L* D 8.8 L D (11.4-16.0) gm/dL Hct 21.5 L 27.1 L (34.0-46.0) % MCV 100.3 H (80.0-100.0) fL RDW 17.9 H 16.8 H (11.5-15.5) % Neutrophils # (Manual) 9.80 H (1.3-7.7) k/uL Lymphocytes # (Manual) (1.0-4.8) k/uL Metamyelocytes # (Man) 0.25 H (0) k/uL Myelocytes # (Manual) 0.12 H (0) k/uL Nucleated RBCs 3 H (0-0) /100 WBC Chloride (98-107) mmol/L BUN (7-17) mg/dL Creatinine (0.52-1.04) mg/dL Glucose (74-99) mg/dL POC Glucose (mg/dL) 181 H (75-99) mg/dL Calcium (8.4-10.2) mg/dL Crossmatch 02/10/20 02/10/20 02/10/20 Range/Units 16:03 20:50 21:21 WBC 12.3 H (3.8-10.6) k/uL RBC 3.60 L (3.80-5.40) m/uL Hgb 10.6 L (11.4-16.0) gm/dL Hct 33.9 L (34.0-46.0) % MCV (80.0-100.0) fL RDW 16.7 H (11.5-15.5) % Neutrophils # (Manual) 9.50 H (1.3-7.7) k/uL Lymphocytes # (Manual) (1.0-4.8) k/uL Metamyelocytes # (Man) 0.49 H (0) k/uL Myelocytes # (Manual) (0) k/uL Nucleated RBCs (0-0) /100 WBC Chloride (98-107) mmol/L BUN (7-17) mg/dL Creatinine (0.52-1.04) mg/dL Glucose (74-99) mg/dL POC Glucose (mg/dL) 170 H 137 H (75-99) mg/dL Calcium (8.4-10.2) mg/dL Crossmatch 02/11/20 02/11/20 Range/Units 03:34 03:34 WBC (3.8-10.6) k/uL RBC 3.02 L (3.80-5.40) m/uL Hgb 9.5 L (11.4-16.0) gm/dL Hct 28.1 L (34.0-46.0) % MCV (80.0-100.0) fL RDW 16.9 H (11.5-15.5) % Neutrophils # (Manual) 9.20 H (1.3-7.7) k/uL Lymphocytes # (Manual) 0.61 L (1.0-4.8) k/uL Metamyelocytes # (Man) 0.31 H (0) k/uL Myelocytes # (Manual) (0) k/uL Nucleated RBCs (0-0) /100 WBC Chloride 120 H (98-107) mmol/L BUN 78 H (7-17) mg/dL Creatinine 1.30 H (0.52-1.04) mg/dL Glucose 121 H (74-99) mg/dL POC Glucose (mg/dL) (75-99) mg/dL Calcium 7.4 L (8.4-10.2) mg/dL Crossmatch Microbiology - Last 24 Hours (Table) 02/07/20 06:50 Blood Culture - Preliminary Blood No Growth after 96 hours Assessment and Plan Plan: Assessment: #1. Acute gastrointestinal bleeding, patient was having bright red bleeding per rectum. Hemoglobin was down to 6.7 from 8.7, requiring 2 units of packed red blood cells #2. Hypovolemic hypotension related to acute GI bleeding, improved with IV fluids and blood transfusions #3. Recent nearly one month hospital admission from January 04 to February 02 for "19 pneumonitis/pneumonia with acute hypoxemic respiratory failure #4. Status post PEG tube placement for nutrition #5. History of hyperlipidemia #6. History of hypertension #7. History of chronic kidney disease #8. History of anemia #9. Hypernatremia related to volume depletion, improved with IV hydration #10. Possible urinary tract infection, urinalysis was rechecked on admission to this hospital in was negative #11. Acute kidney injury, improving #12. Acute metabolic and toxic encephalopathy Plan: Continue with PPI therapy, no bleeding overnight, vital signs are stable, patient is on room air, no worsening dyspnea, no complains of chest pain. Continue with the GI service recommendations, may consider transferring her out of the intensive care unit. Her hemoglobin remains stable and if there has been no recurrence of bleeding, we'll continue monitoring in the ICU for now I performed a history & physical examination of the patient and discussed their management with my nurse practitioner, Anna Brown. I reviewed the nurse practitioner's note and agree with the documented findings and plan of care. Lung sounds are positive for diminished breath sounds. The findings and the impression was discussed with the patient. I attest to the documentation by the nurse practitioner. Time with Patient: Less than 30
[2020-02-11] MEDS: SODIUM CHLORIDE 0.9% 1,000 ML IV SCH (10:15)
--- NOTE | 2020-02-11 11:04 | P.PN ---
Subjective Progress Note Date: 02/11/20 Principal diagnosis: GI Bleed, diverticulosis, anemia This is a 75-year-old white female who was admitted to the hospital for anemia, she had a recent hospitalization for Covid 19 infection. While in the hospital she had an EGD with PEG tube placement in early January. She also had a colonoscopy due to a lower GI bleed by Dr. Singer on 02/01/2022 revealed diverticulosis. Yesterday the patient had a reported large amount of rectal bleeding. Her hemoglobin had dropped to 6.8, she was transfused 2 units PRBC and transferred to the ICU for closer monitoring. A tagged RBC was ordered, which was negative for GI bleed. The patient is doing much better today, blood pressure is stable. She has had no further bleeding overnight. Today's Hemoglobin is 9.5. She denies any abdominal pain, nausea, or vomiting. PEG tube is intact without any signs of bleeding. Objective - Vital Signs Vital signs: Vital Signs Temp 98.7 F 02/11/20 08:00 Pulse 84 02/11/20 09:00 Resp 18 02/11/20 09:00 BP 108/65 02/11/20 09:00 Pulse Ox 95 02/11/20 09:00 Intake & Output 02/10/20 02/11/20 02/11/20 18:59 06:59 18:59 Intake Total 1845 600 150 Output Total 35 147 60 Balance 1810 453 90 Weight 92.4 kg Intake: IV 1150 600 50 Sodium Chloride 0.9% 1, 1100 000 ml @ 999 mls/hr IV . Q1H1M ONE Rx#:[id number] ns 50 600 50 Intake, IV Titration 75 100 Amount Dextrose 5% in Water 1, 75 000 ml @ 75 mls/hr IV . [id number] ONE Rx#:[id number] Sodium Chloride 0.9% 1, 100 000 ml @ 50 mls/hr IV . Q20H [facility] Rx#:[id number] Blood Product 620 Rc As-1 Unit 310 [id number] Rc As-1 Unit 310 [id number] Output: Urine 35 147 60 Other: Voiding Method Indwelling Catheter Indwelling Catheter # Voids 0 # Bowel Movements 1 - Exam General appearance: The patient is alert, pleasantly confused, appears in no acute distress.. HET: Head is normocephalic and atraumatic. Conjunctiva pink. Sclera anicteric. Neck: Supple without lymphadenopathy. Abdomen: Soft, nontender, nondistended with bowel sounds. PEG tube in place and intact. No guarding or rigidity. Extremities: Normal skin color and turgor. No pedal edema Neurological: No focal deficits. Alert but confused. - Labs CBC & Chem 7: 02/11/20 03:34 02/11/20 03:34 Labs: Abnormal Lab Results - Last 24 Hours (Table) 02/08/20 02/10/20 02/10/20 Range/Units 12:03 08:47 08:47 WBC (3.8-10.6) k/uL RBC 2.83 L (3.80-5.40) m/uL Hgb 8.7 L (11.4-16.0) gm/dL Hct 28.0 L (34.0-46.0) % MCV (80.0-100.0) fL RDW 18.0 H (11.5-15.5) % Neutrophils # (Manual) (1.3-7.7) k/uL Lymphocytes # (Manual) 0.66 L (1.0-4.8) k/uL Metamyelocytes # (Man) (0) k/uL Myelocytes # (Manual) (0) k/uL Nucleated RBCs (0-0) /100 WBC Chloride 115 H (98-107) mmol/L BUN 79 H (7-17) mg/dL Creatinine 1.22 H (0.52-1.04) mg/dL Glucose 116 H (74-99) mg/dL POC Glucose (mg/dL) (75-99) mg/dL Calcium 7.5 L (8.4-10.2) mg/dL Crossmatch See Detail 02/10/20 02/10/20 02/10/20 Range/Units 11:42 11:45 15:18 WBC 12.3 H (3.8-10.6) k/uL RBC 2.14 L 2.81 L (3.80-5.40) m/uL Hgb 6.7 L* D 8.8 L D (11.4-16.0) gm/dL Hct 21.5 L 27.1 L (34.0-46.0) % MCV 100.3 H (80.0-100.0) fL RDW 17.9 H 16.8 H (11.5-15.5) % Neutrophils # (Manual) 9.80 H (1.3-7.7) k/uL Lymphocytes # (Manual) (1.0-4.8) k/uL Metamyelocytes # (Man) 0.25 H (0) k/uL Myelocytes # (Manual) 0.12 H (0) k/uL Nucleated RBCs 3 H (0-0) /100 WBC Chloride (98-107) mmol/L BUN (7-17) mg/dL Creatinine (0.52-1.04) mg/dL Glucose (74-99) mg/dL POC Glucose (mg/dL) 181 H (75-99) mg/dL Calcium (8.4-10.2) mg/dL Crossmatch 02/10/20 02/10/20 02/10/20 Range/Units 16:03 20:50 21:21 WBC 12.3 H (3.8-10.6) k/uL RBC 3.60 L (3.80-5.40) m/uL Hgb 10.6 L (11.4-16.0) gm/dL Hct 33.9 L (34.0-46.0) % MCV (80.0-100.0) fL RDW 16.7 H (11.5-15.5) % Neutrophils # (Manual) 9.50 H (1.3-7.7) k/uL Lymphocytes # (Manual) (1.0-4.8) k/uL Metamyelocytes # (Man) 0.49 H (0) k/uL Myelocytes # (Manual) (0) k/uL Nucleated RBCs (0-0) /100 WBC Chloride (98-107) mmol/L BUN (7-17) mg/dL Creatinine (0.52-1.04) mg/dL Glucose (74-99) mg/dL POC Glucose (mg/dL) 170 H 137 H (75-99) mg/dL Calcium (8.4-10.2) mg/dL Crossmatch 02/11/20 02/11/20 Range/Units 03:34 03:34 WBC (3.8-10.6) k/uL RBC 3.02 L (3.80-5.40) m/uL Hgb 9.5 L (11.4-16.0) gm/dL Hct 28.1 L (34.0-46.0) % MCV (80.0-100.0) fL RDW 16.9 H (11.5-15.5) % Neutrophils # (Manual) 9.20 H (1.3-7.7) k/uL Lymphocytes # (Manual) 0.61 L (1.0-4.8) k/uL Metamyelocytes # (Man) 0.31 H (0) k/uL Myelocytes # (Manual) (0) k/uL Nucleated RBCs (0-0) /100 WBC Chloride 120 H (98-107) mmol/L BUN 78 H (7-17) mg/dL Creatinine 1.30 H (0.52-1.04) mg/dL Glucose 121 H (74-99) mg/dL POC Glucose (mg/dL) (75-99) mg/dL Calcium 7.4 L (8.4-10.2) mg/dL Crossmatch Microbiology - Last 24 Hours (Table) 02/07/20 06:50 Blood Culture - Preliminary Blood No Growth after 96 hours Assessment and Plan (1) Normocytic normochromic anemia Narrative/Plan: 75-year-old female with multiple medical comorbidities and recent hospitalization for treatment of infection with covid 19. Patient was seen at outside facility and sent for evaluation of hypernatremia, UTI, decubitus ulcer and anemia. On prior hospitalization patient was discharged with a hemoglobin of 8.9 and current hemoglobin is 8.5 and stable. No signs or symptoms of GI bleeding. The patient underwent both EGD with PEG tube placement and colonoscopy significant for diverticulosis with no active bleeding on last hospitalization with Dr. Singer of the surgical service. Current Visit: Yes Status: Acute Code(s): D64.9 - ANEMIA, UNSPECIFIED SNOMED Code(s): 14903917 (2) Diverticulosis Current Visit: Yes Status: Acute Code(s): K57.90 - DVRTCLOS OF INTEST, PART UNSP, W/O PERF OR ABSCESS W/O BLEED SNOMED Code(s): 700170031 (3) GI bleed Narrative/Plan: Yesterday afternoon the patient started having an active lower GI bleed with bright red blood per rectum. Repeat hemoglobin 6.7, 2 units of PRBC transfusion ordered and received. Repeat globin this morning 9.5. The patient had no further signs of GI bleed through the night. Tagged RBC was completed yesterday, results were negative with no signs of active GI bleeding. Current Visit: Yes Status: Acute Code(s): K92.2 - GASTROINTESTINAL HEMORRHAGE, UNSPECIFIED SNOMED Code(s): 40790622 Plan: Supportive care Diet per surgical recommendations Agree with PRBC transfusion Continue monitor for signs or symptoms of bleeding Continue to monitor hemoglobin and hematocrit and transfuse as needed Surgical service on consult, patient underwent EGD with PEG tube placement and colonoscopy with their service on prior recent hospitalization No plans for endoscopy at this time, will defer to surgical services as mentioned above Tagged RBC was ordered per surgical services, and reviewed Thank you for allowing us to participate in the care of the patient, we'll sign off at this time. Please do not hesitate to contact us if you have any further questions or concerns. Dr. Isra Shaw I agree with the dictator's note, documented as a scribe by Cheryl Wiggins.
--- NOTE | 2020-02-11 11:15 | P.PN ---
Subjective Progress Note Date: 02/11/20 CHIEF COMPLAINT: Hematochezia HISTORY OF PRESENT ILLNESS: Patient presents to the hospital secondary to blood in the stools. She has a known history of dementia. Patient was transferred to the ICU yesterday due to acute GI bleed with bright red blood per rectum and hypotension. She was given 2 units of blood and IV fluids. She has had no further bleeding overnight. Her tagged RBC scan is negative. Hemoglobin is currently 9.5. Afebrile. WBC 10.2 hemoglobin 9.5 patient's tube feedings and oral diet are currently on hold PHYSICAL EXAM: VITAL SIGNS: Reviewed. GENERAL: Well-developed in no acute distress. HEENT: No sclera icterus. Extraocular movements grossly intact. Moist buccal mucosa. Head is atraumatic, normocephalic. ABDOMEN: Soft. Nondistended. Nontender. NEUROLOGIC: pleasantly confused Cranial nerves II through XII grossly intact. ASSESSMENT: 1. Acute GI bleed with bright red blood per rectum. Patient required blood transfusion. 2. Possible diverticular bleed 3. Acute blood loss anemia 4. Hypovolemic hypotension secondary to GI bleed PLAN: -Okay to resume tube feedings through PEG tube and oral diet -If patient has recurring bleeding then we'll repeat tagged RBC scan -Continue supportive care -Continue to monitor hemoglobin -Continue to monitor for any signs of bleeding -Continue Protonix Physician Traveling Passenger Agent note has been reviewed by physician. Signing provider agrees with the documented findings, assessment, and plan of care. Objective - Vital Signs Vital signs: Vital Signs Temp 98.7 F 02/11/20 08:00 Pulse 84 02/11/20 10:00 Resp 25 H 02/11/20 10:00 BP 105/73 02/11/20 10:00 Pulse Ox 96 02/11/20 10:00 Intake & Output 02/10/20 02/11/20 02/11/20 18:59 06:59 18:59 Intake Total 1845 600 200 Output Total 35 147 90 Balance 1810 453 110 Weight 92.4 kg Intake: IV 1150 600 50 Sodium Chloride 0.9% 1, 1100 000 ml @ 999 mls/hr IV . Q1H1M [facility] Rx#:[id number] ns 50 600 50 Intake, IV Titration 75 150 Amount Dextrose 5% in Water 1, 75 000 ml @ 75 mls/hr IV . [id number] [facility] Rx#:[id number] Sodium Chloride 0.9% 1, 150 000 ml @ 50 mls/hr IV . Q20H [facility] Rx#:[id number] Blood Product 620 Rc As-1 Unit 310 [id number] Rc As-1 Unit 310 [id number] Output: Urine 35 147 90 Other: Voiding Method Indwelling Catheter Indwelling Catheter # Voids 0 # Bowel Movements 1 - Labs CBC & Chem 7: 02/11/20 03:34 02/11/20 03:34 Labs: Abnormal Lab Results - Last 24 Hours (Table) 02/08/20 02/10/20 02/10/20 Range/Units 12:03 11:42 11:45 WBC (3.8-10.6) k/uL RBC 2.14 L (3.80-5.40) m/uL Hgb 6.7 L* D (11.4-16.0) gm/dL Hct 21.5 L (34.0-46.0) % MCV 100.3 H (80.0-100.0) fL RDW 17.9 H (11.5-15.5) % Neutrophils # (Manual) (1.3-7.7) k/uL Lymphocytes # (Manual) (1.0-4.8) k/uL Metamyelocytes # (Man) (0) k/uL Myelocytes # (Manual) (0) k/uL Nucleated RBCs (0-0) /100 WBC Chloride (98-107) mmol/L BUN (7-17) mg/dL Creatinine (0.52-1.04) mg/dL Glucose (74-99) mg/dL POC Glucose (mg/dL) 181 H (75-99) mg/dL Calcium (8.4-10.2) mg/dL Crossmatch See Detail 02/10/20 02/10/20 02/10/20 Range/Units 15:18 16:03 20:50 WBC 12.3 H (3.8-10.6) k/uL RBC 2.81 L (3.80-5.40) m/uL Hgb 8.8 L D (11.4-16.0) gm/dL Hct 27.1 L (34.0-46.0) % MCV (80.0-100.0) fL RDW 16.8 H (11.5-15.5) % Neutrophils # (Manual) 9.80 H (1.3-7.7) k/uL Lymphocytes # (Manual) (1.0-4.8) k/uL Metamyelocytes # (Man) 0.25 H (0) k/uL Myelocytes # (Manual) 0.12 H (0) k/uL Nucleated RBCs 3 H (0-0) /100 WBC Chloride (98-107) mmol/L BUN (7-17) mg/dL Creatinine (0.52-1.04) mg/dL Glucose (74-99) mg/dL POC Glucose (mg/dL) 170 H 137 H (75-99) mg/dL Calcium (8.4-10.2) mg/dL Crossmatch 02/10/20 02/11/20 02/11/20 Range/Units 21:21 03:34 03:34 WBC 12.3 H (3.8-10.6) k/uL RBC 3.60 L 3.02 L (3.80-5.40) m/uL Hgb 10.6 L 9.5 L (11.4-16.0) gm/dL Hct 33.9 L 28.1 L (34.0-46.0) % MCV (80.0-100.0) fL RDW 16.7 H 16.9 H (11.5-15.5) % Neutrophils # (Manual) 9.50 H 9.20 H (1.3-7.7) k/uL Lymphocytes # (Manual) 0.61 L (1.0-4.8) k/uL Metamyelocytes # (Man) 0.49 H 0.31 H (0) k/uL Myelocytes # (Manual) (0) k/uL Nucleated RBCs (0-0) /100 WBC Chloride 120 H (98-107) mmol/L BUN 78 H (7-17) mg/dL Creatinine 1.30 H (0.52-1.04) mg/dL Glucose 121 H (74-99) mg/dL POC Glucose (mg/dL) (75-99) mg/dL Calcium 7.4 L (8.4-10.2) mg/dL Crossmatch Microbiology - Last 24 Hours (Table) 02/07/20 06:50 Blood Culture - Preliminary Blood No Growth after 96 hours
[2020-02-11 11:38] LABS: Glucose,Whole Blood 116 mg/dL (75-99)
--- NOTE | 2020-02-11 14:02 | P.PN ---
Subjective Progress Note Date: 02/10/20 Principal diagnosis: Acute GI bleed Acute blood loss anemia UTI acute renal injury 75-year-old female with a known history of hypertension, hyperlipidemia and recent admission with COVID-19 pneumonia with prolonged hospital stay due to hypoxic respiratory failure and was discharged from the hospital on 02/03/2020 was transferred from [facility] and [facility] due to abnormal labs. Apparently patient was found to be hyponatremic with sodium level 151, hemoglobin 8.7 and BNP 16,000. Patient was given Protonix and also dose of Rocephin for possible UTI and was transferred to [facility] for higher level of care. Patient is awake alert and oriented x1-2 at baseline. Denied any complaints of chest pain or shortness of breath. Otherwise patient is a poor historian and most of the history was taken from the outside hospital records and ER note. 02/10/2020 Patient is seen and evaluated in room at bedside; patient had episode of large amount of bright red blood per rectum; hemoglobin dropped down to 6.7; GI is following and recommending 1 unit of packed RBC transfusion and transfer patient to ICU; surgery is on board; patient is status post colonoscopy done on 02/02/2020 which revealed diverticulosis; we'll continue to monitor H&H closely and transfuse as needed; GI is following but deferring further evaluation to [facility]ie gical service since patient underwent EGD with PEG tube placement and colonoscopy with their service during prior recent hospitalization Objective - Vital Signs Vital signs: Vital Signs Temp 98.1 F 02/10/20 13:37 Pulse 80 02/10/20 13:37 Resp 24 02/10/20 13:37 BP 68/47 02/10/20 13:37 Pulse Ox 100 02/10/20 13:37 Intake & Output 02/09/20 02/10/20 02/10/20 18:59 06:59 18:59 Intake Total 90 990 1000 Output Total 400 380 10 Balance -310 610 990 Weight 86.5 kg 91 kg Intake: IV 1000 Sodium Chloride 0.9% 1, 1000 000 ml @ 999 mls/hr IV . Q1H1M [facility] Rx#:[id number] Intake, IV Titration 750 Amount Dextrose 5% in Water 1, 750 000 ml @ 75 mls/hr IV . [id number] [facility] Rx#:[id number] Oral 90 240 Blood Product 0 Rc As-1 Unit 0 [id number] Output: Urine 400 380 10 Other: Voiding Method Indwelling Catheter Indwelling Catheter Indwelling Catheter # Voids 0 0 # Bowel Movements 1 - Exam - Constitutional General appearance: Present: average body habitus, cooperative, no acute distress - EENT Eyes: Present: anicteric sclerae, EOMI, PERRLA, normal appearance ENT: Present: hearing grossly normal, normal oropharynx Ears: bilateral: normal - Neck Neck: Present: normal ROM. Absent: lymphadenopathy, rigidity, thyromegaly Carotids: negative: bruit present Thyroid: bilateral: normal size, negative: enlarged, nodule - Respiratory Respiratory: bilateral: CTA, negative: rales, rhonchi, wheezing - Cardiovascular Rhythm: regular Heart sounds: normal: S1, S2 Abnormal Heart Sounds: Absent: systolic murmur, diastolic murmur - Gastrointestinal General gastrointestinal: Present: normal bowel sounds, soft. Absent: distended, organomegaly, tenderness - Genitourinary Genitourinary Comment(s): deferred - Integumentary Integumentary: Present: normal turgor. Absent: jaundiced, rash, ulcer - Neurologic Neurologic: Present: CNII-XII intact. Absent: focal deficits - Musculoskeletal Musculoskeletal: Present: gait normal, strength equal bilaterally - Psychiatric Psychiatric: Present: A&O x's 3, appropriate affect, intact judgment & insight - Labs CBC & Chem 7: 02/11/20 03:34 02/11/20 03:34 Labs: Abnormal Lab Results - Last 24 Hours (Table) 02/08/20 02/09/20 02/09/20 Range/Units 12:03 16:54 20:04 RBC (3.80-5.40) m/uL Hgb (11.4-16.0) gm/dL Hct (34.0-46.0) % MCV (80.0-100.0) fL RDW (11.5-15.5) % Lymphocytes # (Manual) (1.0-4.8) k/uL Chloride (98-107) mmol/L BUN (7-17) mg/dL Creatinine (0.52-1.04) mg/dL Glucose (74-99) mg/dL POC Glucose (mg/dL) 214 H 246 H (75-99) mg/dL Calcium (8.4-10.2) mg/dL Crossmatch See Detail 02/10/20 02/10/20 02/10/20 Range/Units 06:07 08:47 08:47 RBC 2.83 L (3.80-5.40) m/uL Hgb 8.7 L (11.4-16.0) gm/dL Hct 28.0 L (34.0-46.0) % MCV (80.0-100.0) fL RDW 18.0 H (11.5-15.5) % Lymphocytes # (Manual) 0.66 L (1.0-4.8) k/uL Chloride 115 H (98-107) mmol/L BUN 79 H (7-17) mg/dL Creatinine 1.22 H (0.52-1.04) mg/dL Glucose 116 H (74-99) mg/dL POC Glucose (mg/dL) 138 H (75-99) mg/dL Calcium 7.5 L (8.4-10.2) mg/dL Crossmatch 02/10/20 02/10/20 Range/Units 11:42 11:45 RBC 2.14 L (3.80-5.40) m/uL Hgb 6.7 L* D (11.4-16.0) gm/dL Hct 21.5 L (34.0-46.0) % MCV 100.3 H (80.0-100.0) fL RDW 17.9 H (11.5-15.5) % Lymphocytes # (Manual) (1.0-4.8) k/uL Chloride (98-107) mmol/L BUN (7-17) mg/dL Creatinine (0.52-1.04) mg/dL Glucose (74-99) mg/dL POC Glucose (mg/dL) 181 H (75-99) mg/dL Calcium (8.4-10.2) mg/dL Crossmatch Microbiology - Last 24 Hours (Table) 02/07/20 06:50 Blood Culture - Preliminary Blood No Growth after 72 hours Assessment and Plan Assessment: Normocytic normochromic anemia without any active GI bleed. Possible diverticular bleed. Hemoglobin is stable compared to last admission. Possible urinary tract infection. UA negative on admission here Hypernatremia due to dehydration and volume depletion Recent COVID-19 infection with hypoxic respiratory failure. On room air currently. Elevated troponin level likely due to recent COVID-19 and was seen by cardiology recently. Elevated BNP level without evidence of acute CHF. Acute kidney injury secondary infection. Improving Hypernatremia due to dehydration and volume depletion improved now Hypertension Hyperlipidemia Metabolic and toxic encephalopathy due to infection GI prophylaxis with PPI and DVT prophylaxis with SCDs Plan: Patient will be continued gentle IV hydration and monitor H&H.
--- NOTE | 2020-02-11 14:10 | P.PN ---
Subjective Progress Note Date: 02/11/20 Principal diagnosis: Acute GI bleed Acute blood loss anemia UTI acute renal injury 75-year-old female with a known history of hypertension, hyperlipidemia and recent admission with COVID-19 pneumonia with prolonged hospital stay due to hypoxic respiratory failure and was discharged from the hospital on 02/03/2020 was transferred from [facility] and [facility] due to abnormal labs. Apparently patient was found to be hyponatremic with sodium level 151, hemoglobin 8.7 and BNP 16,000. Patient was given Protonix and also dose of Rocephin for possible UTI and was transferred to [facility] for higher level of care. Patient is awake alert and oriented x1-2 at baseline. Denied any complaints of chest pain or shortness of breath. Otherwise patient is a poor historian and most of the history was taken from the outside hospital records and ER note. 02/10/2020 Patient is seen and evaluated in room at bedside; patient had episode of large amount of bright red blood per rectum; hemoglobin dropped down to 6.7; GI is following and recommending 1 unit of packed RBC transfusion and transfer patient to ICU; surgery is on board; patient is status post colonoscopy done on 02/02/2020 which revealed diverticulosis; we'll continue to monitor H&H closely and transfuse as needed; GI is following but deferring further evaluation to stephanie gical service since patient underwent EGD with PEG tube placement and colonoscopy with their service during prior recent hospitalization 02/11/2020 Patient is seen and evaluated at bedside in ICU; patient was transferred to ICU yesterday after having bright red blood from rectum and hypotension; patient was resuscitated with IV fluids and was transfused with 2 units of packed RBCs; no further reports of rectal bleed; surgery is on board and ordered tagged RBC scan which was negative; hemoglobin is stable at 9.5; patient did have recent colonoscopy done which revealed diverticulosis; bright red blood per rectum is deemed possibly secondary to diverticular bleed; plan is to start patient on tube feeding via PEG tube with plans to repeat tagged RBC scan if bleeding r ecurs; patient remains on Protonix Objective - Vital Signs Vital signs: Vital Signs Temp 97.8 F 02/11/20 12:00 Pulse 87 02/11/20 13:00 Resp 20 02/11/20 13:00 BP 111/63 02/11/20 13:00 Pulse Ox 95 02/11/20 13:00 Intake & Output 02/10/20 02/11/20 02/11/20 18:59 06:59 18:59 Intake Total 1845 600 300 Output Total 35 147 135 Balance 1810 453 165 Weight 92.4 kg Intake: IV 1150 600 50 Sodium Chloride 0.9% 1, 1100 000 ml @ 999 mls/hr IV . Q1H1M [facility] Rx#:[id number] ns 50 600 50 Intake, IV Titration 75 250 Amount Dextrose 5% in Water 1, 75 000 ml @ 75 mls/hr IV . [id number] [facility] Rx#:[id number] Sodium Chloride 0.9% 1, 250 000 ml @ 50 mls/hr IV . Q20H [facility] Rx#:[id number] Blood Product 620 Rc As-1 Unit 310 [id number] Rc As-1 Unit 310 [id number] Output: Urine 35 147 135 Other: Voiding Method Indwelling Catheter Indwelling Catheter Indwelling Catheter # Voids 0 # Bowel Movements 1 - Exam - Constitutional General appearance: Present: average body habitus, cooperative, no acute distress - EENT Eyes: Present: anicteric sclerae, EOMI, PERRLA, normal appearance ENT: Present: hearing grossly normal, normal oropharynx Ears: bilateral: normal - Neck Neck: Present: normal ROM. Absent: lymphadenopathy, rigidity, thyromegaly Carotids: negative: bruit present Thyroid: bilateral: normal size, negative: enlarged, nodule - Respiratory Respiratory: bilateral: CTA, negative: rales, rhonchi, wheezing - Cardiovascular Rhythm: regular Heart sounds: normal: S1, S2 Abnormal Heart Sounds: Absent: systolic murmur, diastolic murmur - Gastrointestinal General gastrointestinal: Present: normal bowel sounds, soft. Absent: distended, organomegaly, tenderness - Genitourinary Genitourinary Comment(s): deferred - Integumentary Integumentary: Present: normal turgor. Absent: jaundiced, rash, ulcer - Neurologic Neurologic: Present: CNII-XII intact. Absent: focal deficits - Musculoskeletal Musculoskeletal: Present: gait normal, strength equal bilaterally - Psychiatric Psychiatric: Present: A&O x's 3, appropriate affect, intact judgment & insight - Labs CBC & Chem 7: 02/11/20 03:34 02/11/20 03:34 Labs: Abnormal Lab Results - Last 24 Hours (Table) 02/08/20 02/10/20 02/10/20 Range/Units 12:03 15:18 16:03 WBC 12.3 H (3.8-10.6) k/uL RBC 2.81 L (3.80-5.40) m/uL Hgb 8.8 L D (11.4-16.0) gm/dL Hct 27.1 L (34.0-46.0) % RDW 16.8 H (11.5-15.5) % Neutrophils # (Manual) 9.80 H (1.3-7.7) k/uL Lymphocytes # (Manual) (1.0-4.8) k/uL Metamyelocytes # (Man) 0.25 H (0) k/uL Myelocytes # (Manual) 0.12 H (0) k/uL Nucleated RBCs 3 H (0-0) /100 WBC Chloride (98-107) mmol/L BUN (7-17) mg/dL Creatinine (0.52-1.04) mg/dL Glucose (74-99) mg/dL POC Glucose (mg/dL) 170 H (75-99) mg/dL Calcium (8.4-10.2) mg/dL Crossmatch See Detail 02/10/20 02/10/20 02/11/20 Range/Units 20:50 21:21 03:34 WBC 12.3 H (3.8-10.6) k/uL RBC 3.60 L 3.02 L (3.80-5.40) m/uL Hgb 10.6 L 9.5 L (11.4-16.0) gm/dL Hct 33.9 L 28.1 L (34.0-46.0) % RDW 16.7 H 16.9 H (11.5-15.5) % Neutrophils # (Manual) 9.50 H 9.20 H (1.3-7.7) k/uL Lymphocytes # (Manual) 0.61 L (1.0-4.8) k/uL Metamyelocytes # (Man) 0.49 H 0.31 H (0) k/uL Myelocytes # (Manual) (0) k/uL Nucleated RBCs (0-0) /100 WBC Chloride (98-107) mmol/L BUN (7-17) mg/dL Creatinine (0.52-1.04) mg/dL Glucose (74-99) mg/dL POC Glucose (mg/dL) 137 H (75-99) mg/dL Calcium (8.4-10.2) mg/dL Crossmatch 02/11/20 02/11/20 Range/Units 03:34 11:36 WBC (3.8-10.6) k/uL RBC (3.80-5.40) m/uL Hgb (11.4-16.0) gm/dL Hct (34.0-46.0) % RDW (11.5-15.5) % Neutrophils # (Manual) (1.3-7.7) k/uL Lymphocytes # (Manual) (1.0-4.8) k/uL Metamyelocytes # (Man) (0) k/uL Myelocytes # (Manual) (0) k/uL Nucleated RBCs (0-0) /100 WBC Chloride 120 H (98-107) mmol/L BUN 78 H (7-17) mg/dL Creatinine 1.30 H (0.52-1.04) mg/dL Glucose 121 H (74-99) mg/dL POC Glucose (mg/dL) 116 H (75-99) mg/dL Calcium 7.4 L (8.4-10.2) mg/dL Crossmatch Microbiology - Last 24 Hours (Table) 02/07/20 06:50 Blood Culture - Preliminary Blood No Growth after 96 hours Assessment and Plan Assessment: Normocytic normochromic anemia without any active GI bleed. Possible diverticular bleed. Hemoglobin is stable compared to last admission. Possible urinary tract infection. UA negative on admission here Hypernatremia due to dehydration and volume depletion Recent COVID-19 infection with hypoxic respiratory failure. On room air currently. Elevated troponin level likely due to recent COVID-19 and was seen by cardiology recently. Elevated BNP level without evidence of acute CHF. Acute kidney injury secondary infection. Improving Hypernatremia due to dehydration and volume depletion improved now Hypertension Hyperlipidemia Metabolic and toxic encephalopathy due to infection GI prophylaxis with PPI and DVT prophylaxis with SCDs Plan: Patient will be continued gentle IV hydration and monitor H&H.
[2020-02-11 16:49] LABS: Glucose,Whole Blood 116 mg/dL (75-99)
[2020-02-11] MEDS: ACETAMINOPHEN TAB 325 MG TAB PO PRN (20:15)
[2020-02-11] MEDS: INSULIN DETEMIR (LEVEMIR) 100 UNIT/ML SYR SQ SCH (20:17)
[2020-02-11 20:50] LABS: Glucose,Whole Blood 134 mg/dL (75-99)
[2020-02-11 20:53] LABS: Glucose,Whole Blood 135 mg/dL (75-99)
[2020-02-12] MEDS: PANTOPRAZOLE 40 MG TABLET PO SCH (07:28)
[2020-02-12] MEDS: ASCORBIC ACID 500 MG TAB PO SCH ×2 (07:28→20:43)
[2020-02-12] MEDS: ZINC SULFATE 220 MG CAP PO SCH (07:28)
[2020-02-12] MEDS: CHOLECALCIFEROL 1,000 UNIT TAB PO SCH (07:28)
[2020-02-12] MEDS: SODIUM CHLORIDE 0.9% 1,000 ML IV SCH ×2 (07:30→20:43)
[2020-02-12] MEDS: ACETAMINOPHEN TAB 325 MG TAB PO PRN (09:12)
[2020-02-12 09:17] LABS: Anisocytosis Slight; HCT 25.7 % (34.0-46.0); HGB 8.1 gm/dL (11.4-16.0); Hypochromasia Moderate; MCH 30.2 pg (25.0-35.0); MCHC 31.4 g/dL (31.0-37.0); MCV 96.2 fL (80.0-100.0); Macrocytosis Slight; Mean Platelet Volume 8.6; Platelet Count 197 k/uL (150-450); Poikilocytosis Slight; RBC 2.67 m/uL (3.80-5.40); RDW 17.2 % (11.5-15.5); WBC 8.8 k/uL (3.8-10.6)
--- NOTE | 2020-02-12 12:20 | P.PN ---
Subjective Progress Note Date: 02/12/20 Principal diagnosis: Acute GI bleed 75-year-old white female patient with the recent history of prolonged hospitalization for COVID 19 pneumonitis, and following her hospitalization patient was discharged to [facility] for rehabilitation, 2 days after her discharge on 02/06/2020 patient was brought back to the emergency department in the [place] area for a concern of urinary tract infection, hyponatremia, and decubitus ulcers. He was also found to be Hemoccult positive, her admission hemoglobin was 8.7, sodium was 151, and she also had a elevated proBNP of 16,000. Patient was started on antibiotics in form of Rocephin, he was given IV fluids. Yesterday A-team was called on 02/10/2020 for concerns of bright red bleeding per rectum. She also became hypotensive with a systolic in the 80s, she was given IV fluids, and she received 2 units of packed red blood cells. Packed RBC scan was negative, she's had no further bleeding overnight, her blood pressure stable, she is currently complaining was seen at a rate of 50 ML per hour, she is on room air, with a pulse ox of 95-96%, blood pressures 108/65, she is in sinus mechanism with a rate of 84 BPM, she's been afebrile, he is not on any anticoagulation, she is receiving oral Protonix. Today's labs have been reviewed, showing hemoglobin of 9.5, white blood cell count is 10.2, sodium is 144, potassium is 5.0, chloride is 120, CO2 23, BUN of 78, and creatinine is 1.3. Patient is nothing by mouth, and she is being followed by surgery On 02/12/2020 patient seen in follow-up on a general medical surgical floor, she is resting comfortably in bed, she's had no bleeding overnight, she looks very comfortable, breathing comfortably, she is on room air, pulse ox is 98%, blood pressure stable, breathing is nonlabored, she's been afebrile, abdomen is nontender, she has PEG tube in place with tube feedings infusing, tolerating tube feedings well. His hemoglobin is 8.1. Remains on oral Protonix, she is on IV fluids at the 50 ML per hour, she remains on vitamin C, and zinc supplement for recent history of COVID 19 infection, blood cultures have shown no growth. Objective - Vital Signs Vital signs: Vital Signs Temp 98.0 F 02/12/20 08:12 Pulse 96 02/12/20 08:12 Resp 16 02/12/20 08:12 BP 148/81 02/12/20 08:12 Pulse Ox 98 02/12/20 08:12 Intake & Output 02/11/20 02/12/20 02/12/20 18:59 06:59 18:59 Intake Total 750 450 Output Total 295 70 Balance 455 380 Intake: IV 50 250 Sodium Chloride 0.9% 1, 250 000 ml @ 50 mls/hr IV . Q20H [facility] Rx#:[id number] ns 50 Intake, IV Titration 550 50 Amount Sodium Chloride 0.9% 1, 550 50 000 ml @ 50 mls/hr IV . Q20H [facility] Rx#:[id number] Oral 100 Tube Feeding 150 50 Output: Urine 295 70 Other: Voiding Method Indwelling Catheter Indwelling Catheter Indwelling Catheter - Exam GENERAL EXAM: Drowsy but easily arousable, oriented 2, 75-year-old white female, on room air, with a pulse ox of 95% comfortable in no apparent distress. HEAD: Normocephalic/atraumatic. EYES: Normal reaction of pupils, equal size. Conjunctiva pink, sclera white. NOSE: Clear with pink turbinates. THROAT: No erythema or exudates. NECK: No masses, no JVD, no thyroid enlargement, no adenopathy. CHEST: No chest wall deformity. Symmetrical expansion. LUNGS: Equal air entry with no crackles, wheeze, rhonchi or dullness. CVS: Regular rate and rhythm, normal S1 and S2, no gallops, no murmurs, no rubs ABDOMEN: Soft, nontender. No hepatosplenomegaly, normal bowel sounds, no guarding or rigidity. PEG tube in place with tube feedings infusing EXTREMITIES: No clubbing, no edema, no cyanosis, 2+ pulses and upper and lower extremities. MUSCULOSKELETAL: Muscle strength and tone normal. SPINE: No scoliosis or deformity SKIN: No rashes CENTRAL NERVOUS SYSTEM: Alert and oriented -3. No focal deficits, tone is normal in all 4 extremities. PSYCHIATRIC: Alert and oriented -3. Appropriate affect. Intact judgment and insight. - Labs CBC & Chem 7: 02/12/20 08:12 02/11/20 03:34 Labs: Abnormal Lab Results - Last 24 Hours (Table) 02/11/20 02/11/20 02/11/20 Range/Units 16:48 20:45 20:51 RBC (3.80-5.40) m/uL Hgb (11.4-16.0) gm/dL Hct (34.0-46.0) % RDW (11.5-15.5) % POC Glucose (mg/dL) 116 H 134 H 135 H (75-99) mg/dL 02/12/20 Range/Units 08:12 RBC 2.67 L (3.80-5.40) m/uL Hgb 8.1 L (11.4-16.0) gm/dL Hct 25.7 L (34.0-46.0) % RDW 17.2 H (11.5-15.5) % POC Glucose (mg/dL) (75-99) mg/dL Microbiology - Last 24 Hours (Table) 02/07/20 06:50 Blood Culture - Preliminary Blood No Growth after 120 hours Assessment and Plan Plan: Assessment: #1. Acute gastrointestinal bleeding, patient was having bright red bleeding per rectum. Hemoglobin was down to 6.7 from 8.7, requiring 2 units of packed red blood cells #2. Hypovolemic hypotension related to acute GI bleeding, improved with IV fluids and blood transfusions #3. Recent nearly one month hospital admission from January 04 to February 02 for "19 pneumonitis/pneumonia with acute hypoxemic respiratory failure #4. Status post PEG tube placement for nutrition #5. History of hyperlipidemia #6. History of hypertension #7. History of chronic kidney disease #8. History of anemia #9. Hypernatremia related to volume depletion, improved with IV hydration #10. Possible urinary tract infection, urinalysis was rechecked on admission to this hospital in was negative #11. Acute kidney injury, improving #12. Acute metabolic and toxic encephalopathy Plan: Patient is doing well, and she has had no bleeding overnight, vital signs have been stable, his hemoglobin is 8.1, she is tolerating tube feedings, no difficulty breathing, no acute pulmonary/critical care issues at this time, we will sign off and follow on as-needed basis. I performed a history & physical examination of the patient and discussed their management with my nurse practitioner, Anna Brown. I reviewed the nurse practitioner's note and agree with the documented findings and plan of care. Lung sounds are positive for diminished breath sounds. The findings and the impression was discussed with the patient. I attest to the documentation by the nurse practitioner. Time with Patient: Less than 30
--- NOTE | 2020-02-12 12:44 | P.PN ---
Progress Note - Text Progress Note Date: 02/12/20 Patient remains stable the floor. She's not had any significant GI bleed. Her hemoglobin was 8.1. On exam vital signs are stable. Abdomen soft. Probable diverticular bleed. Patient will continue receive supportive care.
--- NOTE | 2020-02-12 13:25 | CDI ---
Documentation Clarification Form Date: 02/12/2020 01:04:47 PM From: Anali Pritchett RN, CCDS Admit Date: 02/10/2020 09:22:00 AM Patient Name: Meeta Fuller Visit Number: [id number] Discharge Date: ATTENTION: The Clinical Documentation Specialists (CDI) and [facility] Coding Staff appreciate your assistance in clarifying documentation. Please respond to the clarification below the line at the bottom and electronically sign. The CDI & [facility] Coding staff will review the response and follow-up if needed. Please note: Queries are made part of the Legal Health Record. If you have any questions, please contact the author of this message via ITS. Dr. Keerthi Hernandez Hypovolemic hypotension is documented in progress notes on 02/10 from bright red bleeding per rectum: Please render your opinion on the Hypovolemic hypotension. Patient history/risk factors: GI Bleed, Diverticulosis Clinical Indicators: 75-year-old female to ED on 02/05 with admission hemoglobin of 8.7. On 02/10/20 A-team was called for concerns of bright bleeding per rectum. She became hypotensive with systolic blood pressure 12:00: 73/50: 12:10 70:50: at 13:00 82/49 pulse 91 respiratory rate of 26. Treatment: ICU Monitoring .9NS 1,000 mls @ 999 mil/hr IV Transfuse PRBC 02/09 @ 13:27 and 16:09 In your professional opinion, can you please specify if the hypovolemic hypertension is? Hypovolemic Shock from acute blood loss anemia Hypovolemic Hypotension without Hypovolemic Shock Other, please specify Unable to determine (Last Revision: November 2016) Hypovolemic Shock from acute blood loss anemia MTDD
[2020-02-12] MEDS: INSULIN DETEMIR (LEVEMIR) 100 UNIT/ML SYR SQ SCH (20:43)
[2020-02-13] MEDS: CHOLECALCIFEROL 1,000 UNIT TAB PO SCH (07:40)
[2020-02-13] MEDS: ASCORBIC ACID 500 MG TAB PO SCH ×2 (07:42→20:20)
[2020-02-13] MEDS: ZINC SULFATE 220 MG CAP PO SCH (07:42)
[2020-02-13] MEDS: PANTOPRAZOLE 40 MG TABLET PO SCH (07:42)
[2020-02-13 09:58] LABS: Anisocytosis Slight; HCT 27.3 % (34.0-46.0); HGB 8.4 gm/dL (11.4-16.0); Hypochromasia Marked; MCH 31.7 pg (25.0-35.0); MCHC 30.8 g/dL (31.0-37.0); MCV 103.1 fL (80.0-100.0); Macrocytosis Moderate; Mean Platelet Volume 8.6; Platelet Count 236 k/uL (150-450); RBC 2.65 m/uL (3.80-5.40); RDW 17.5 % (11.5-15.5)
[2020-02-13 10:22] LABS: Band Neutrophils % 3 %; Basophils # (M) 0.09 k/uL (0-0.2); Eosinophils # (M) 0.18 k/uL (0-0.7); Lymphocytes # (M) 0.53 k/uL (1.0-4.8); Metamyelocytes # (M) 0.26 k/uL (0); Metamyelocytes % 3 %; Monocytes # (M) 0.26 k/uL (0-1.0); Myelocytes # (M) 0.35 k/uL (0); Myelocytes % 4 %; Neutrophils % (M) 81 %; Nucleated Red Blood Cells 1 /100 WBC (0-0); Poikilocytosis (M) Present; Polychromasia Present; Total Cells Counted 200; WBC 8.8 k/uL (3.8-10.6)
--- NOTE | 2020-02-13 12:27 | P.PN ---
Subjective Progress Note Date: 02/13/20 Principal diagnosis: Acute GI bleed 75-year-old white female patient with the recent history of prolonged hospitalization for COVID 19 pneumonitis, and following her hospitalization patient was discharged to [facility] for rehabilitation, 2 days after her discharge on 02/06/2020 patient was brought back to the emergency department in the [place] area for a concern of urinary tract infection, hyponatremia, and decubitus ulcers. He was also found to be Hemoccult positive, her admission hemoglobin was 8.7, sodium was 151, and she also had a elevated proBNP of 16,000. Patient was started on antibiotics in form of Rocephin, he was given IV fluids. Yesterday A-team was called on 02/10/2020 for concerns of bright red bleeding per rectum. She also became hypotensive with a systolic in the 80s, she was given IV fluids, and she received 2 units of packed red blood cells. Packed RBC scan was negative, she's had no further bleeding overnight, her blood pressure stable, she is currently complaining was seen at a rate of 50 ML per hour, she is on room air, with a pulse ox of 95-96%, blood pressures 108/65, she is in sinus mechanism with a rate of 84 BPM, she's been afebrile, he is not on any anticoagulation, she is receiving oral Protonix. Today's labs have been reviewed, showing hemoglobin of 9.5, white blood cell count is 10.2, sodium is 144, potassium is 5.0, chloride is 120, CO2 23, BUN of 78, and creatinine is 1.3. Patient is nothing by mouth, and she is being followed by surgery On 02/12/2020 patient seen in follow-up on a general medical surgical floor, she is resting comfortably in bed, she's had no bleeding overnight, she looks very comfortable, breathing comfortably, she is on room air, pulse ox is 98%, blood pressure stable, breathing is nonlabored, she's been afebrile, abdomen is nontender, she has PEG tube in place with tube feedings infusing, tolerating tube feedings well. His hemoglobin is 8.1. Remains on oral Protonix, she is on IV fluids at the 50 ML per hour, she remains on vitamin C, and zinc supplement for recent history of COVID 19 infection, blood cultures have shown no growth. The patient is seen today 02/13/2020 in follow-up on the regular medical floor. She is awake and alert in no acute distress. Resting fairly comfortably in bed. Maintaining O2 saturations in the high 90s on room air. She's have a temperature of 100.0 earlier this a.m. but is currently afebrile. Hemodynamically stable. She is status post 2 units of packed red blood cells this admission. Current hemoglobin 8.4. White count 8.8. She remains on Protonix. 0.9 normal saline at 50 MLS per hour. Being nourished with tube feedings. Objective - Vital Signs Vital signs: Vital Signs Temp 97.5 F L 02/13/20 07:31 Pulse 97 02/13/20 07:31 Resp 19 02/13/20 07:31 BP 127/61 02/13/20 07:31 Pulse Ox 99 02/13/20 07:31 Intake & Output 02/12/20 02/13/20 02/13/20 18:59 06:59 18:59 Intake Total 200 200 Output Total 500 Balance -300 200 Weight 91.8 kg Intake: Oral 100 Tube Feeding 100 200 Output: Urine 500 Other: Voiding Method Indwelling Catheter # Bowel Movements 2 2 - Exam GENERAL EXAM: Awake, alert, oriented 2, 75-year-old female patient, on room air, with a pulse ox of 99% comfortable in no apparent distress. HEAD: Normocephalic/atraumatic. EYES: Normal reaction of pupils, equal size. Conjunctiva pink, sclera white. NOSE: Clear with pink turbinates. THROAT: No erythema or exudates. NECK: No masses, no JVD, no thyroid enlargement, no adenopathy. CHEST: No chest wall deformity. Symmetrical expansion. LUNGS: Equal air entry with no crackles, wheeze, rhonchi or dullness. CVS: Regular rate and rhythm, normal S1 and S2, no gallops, no murmurs, no rubs ABDOMEN: Soft, nontender. No hepatosplenomegaly, normal bowel sounds, no guarding or rigidity. PEG tube in place with tube feedings infusing EXTREMITIES: No clubbing, no edema, no cyanosis, 2+ pulses and upper and lower extremities. MUSCULOSKELETAL: Muscle strength and tone normal. SPINE: No scoliosis or deformity SKIN: No rashes CENTRAL NERVOUS SYSTEM: No focal deficits, tone is normal in all 4 extremities. PSYCHIATRIC: Alert and oriented -3. Appropriate affect. Intact judgment and insight. - Labs CBC & Chem 7: 02/13/20 09:39 02/11/20 03:34 Labs: Abnormal Lab Results - Last 24 Hours (Table) 02/13/20 Range/Units 09:39 RBC 2.65 L (3.80-5.40) m/uL Hgb 8.4 L (11.4-16.0) gm/dL Hct 27.3 L (34.0-46.0) % MCV 103.1 H D (80.0-100.0) fL MCHC 30.8 L (31.0-37.0) g/dL RDW 17.5 H (11.5-15.5) % Lymphocytes # (Manual) 0.53 L (1.0-4.8) k/uL Metamyelocytes # (Man) 0.26 H (0) k/uL Myelocytes # (Manual) 0.35 H (0) k/uL Nucleated RBCs 1 H (0-0) /100 WBC Microbiology - Last 24 Hours (Table) 02/07/20 06:50 Blood Culture - Final Blood No Growth after 144 hours Assessment and Plan Assessment: 1 Acute gastrointestinal bleeding, patient was having bright red bleeding per rectum. Hemoglobin was down to 6.7 from 8.7, requiring 2 units of packed red blood cells my current hemoglobin 8.4 2 Hypovolemic hypotension related to acute GI bleeding, improved with IV fluids and blood transfusions 3 Recent nearly one month hospital admission from January 04 to February 02 for "19 pneumonitis/pneumonia with acute hypoxemic respiratory failure 4 Status post PEG tube placement for nutrition 5 History of hyperlipidemia 6 History of hypertension 7 History of chronic kidney disease 8 History of anemia 9 Hypernatremia related to volume depletion, improved with IV hydration 10 Possible urinary tract infection, urinalysis was rechecked on admission to this hospital in was negative 11 Acute kidney injury, improving 12 Acute metabolic and toxic encephalopathy Plan: The patient was seen and evaluated by Dr. Leon She remains stable from the pulmonary standpoint, on room air Continue to monitor hemoglobin We will continue to follow I, the cosigning physician, performed a history & physical examination of the patient. Lungs sounds are clear. Maintaining good O2 saturations in the 90s on room air. I discussed the assessment and plan of care with my nurse practitioner, Candi Horton. I attest to the above note as dictated by her.
--- NOTE | 2020-02-13 14:40 | P.PN ---
Subjective Progress Note Date: 02/12/20 Principal diagnosis: Acute GI bleed Acute blood loss anemia UTI acute renal injury 75-year-old female with a known history of hypertension, hyperlipidemia and recent admission with COVID-19 pneumonia with prolonged hospital stay due to hypoxic respiratory failure and was discharged from the hospital on 02/03/2020 was transferred from [facility] and [facility] due to abnormal labs. Apparently patient was found to be hyponatremic with sodium level 151, hemoglobin 8.7 and BNP 16,000. Patient was given Protonix and also dose of Rocephin for possible UTI and was transferred to [facility] for higher level of care. Patient is awake alert and oriented x1-2 at baseline. Denied any complaints of chest pain or shortness of breath. Otherwise patient is a poor historian and most of the history was taken from the outside hospital records and ER note. 02/10/2020 Patient is seen and evaluated in room at bedside; patient had episode of large amount of bright red blood per rectum; hemoglobin dropped down to 6.7; GI is following and recommending 1 unit of packed RBC transfusion and transfer patient to ICU; surgery is on board; patient is status post colonoscopy done on 02/02/2020 which revealed diverticulosis; we'll continue to monitor H&H closely and transfuse as needed; GI is following but deferring further evaluation to stephanie gical service since patient underwent EGD with PEG tube placement and colonoscopy with their service during prior recent hospitalization 02/11/2020 Patient is seen and evaluated at bedside in ICU; patient was transferred to ICU yesterday after having bright red blood from rectum and hypotension; patient was resuscitated with IV fluids and was transfused with 2 units of packed RBCs; no further reports of rectal bleed; surgery is on board and ordered tagged RBC scan which was negative; hemoglobin is stable at 9.5; patient did have recent colonoscopy done which revealed diverticulosis; bright red blood per rectum is deemed possibly secondary to diverticular bleed; plan is to start patient on tube feeding via PEG tube with plans to repeat tagged RBC scan if bleeding r ecurs; patient remains on Protonix 02/12/2020 patient seen and evaluated in room at bedside, she is resting comfortably in bed, she's had no bleeding overnight, she looks very comfortable, breathing comfortably, she is on room air, pulse ox is 98%, blood pressure stable, b reathing is nonlabored, she's been afebrile, abdomen is nontender, she has PEG tube in place with tube feedings infusing, tolerating tube feedings well. His hemoglobin is 8.1. Remains on oral Protonix, she is on IV fluids at the 50 ML per hour, she remains on vitamin C, and zinc supplement for recent history of COVID 19 infection, blood cultures have shown no growth. Objective - Vital Signs Vital signs: Vital Signs Temp 96.9 F L 02/12/20 14:43 Pulse 95 02/12/20 14:43 Resp 16 02/12/20 14:43 BP 147/82 02/12/20 14:43 Pulse Ox 95 02/12/20 14:43 Intake & Output 02/11/20 02/12/20 02/12/20 18:59 06:59 18:59 Intake Total 750 450 Output Total 295 70 Balance 455 380 Intake: IV 50 250 Sodium Chloride 0.9% 1, 250 000 ml @ 50 mls/hr IV . Q20H ANDREA Rx#:[id number] ns 50 Intake, IV Titration 550 50 Amount Sodium Chloride 0.9% 1, 550 50 000 ml @ 50 mls/hr IV . Q20H ANDREA Rx#:[id number] Oral 100 Tube Feeding 150 50 Output: Urine 295 70 Other: Voiding Method Indwelling Catheter Indwelling Catheter Indwelling Catheter - Exam - Constitutional General appearance: Present: average body habitus, cooperative, no acute distress - EENT Eyes: Present: anicteric sclerae, EOMI, PERRLA, normal appearance ENT: Present: hearing grossly normal, normal oropharynx Ears: bilateral: normal - Neck Neck: Present: normal ROM. Absent: lymphadenopathy, rigidity, thyromegaly Carotids: negative: bruit present Thyroid: bilateral: normal size, negative: enlarged, nodule - Respiratory Respiratory: bilateral: CTA, negative: rales, rhonchi, wheezing - Cardiovascular Rhythm: regular Heart sounds: normal: S1, S2 Abnormal Heart Sounds: Absent: systolic murmur, diastolic murmur - Gastrointestinal General gastrointestinal: Present: normal bowel sounds, soft. Absent: distended, organomegaly, tenderness - Genitourinary Genitourinary Comment(s): deferred - Integumentary Integumentary: Present: normal turgor. Absent: jaundiced, rash, ulcer - Neurologic Neurologic: Present: CNII-XII intact. Absent: focal deficits - Musculoskeletal Musculoskeletal: Present: gait normal, strength equal bilaterally - Psychiatric Psychiatric: Present: A&O x's 3, appropriate affect, intact judgment & insight - Labs CBC & Chem 7: 02/13/20 09:39 02/11/20 03:34 Labs: Abnormal Lab Results - Last 24 Hours (Table) 02/11/20 02/11/20 02/11/20 Range/Units 16:48 20:45 20:51 RBC (3.80-5.40) m/uL Hgb (11.4-16.0) gm/dL Hct (34.0-46.0) % RDW (11.5-15.5) % POC Glucose (mg/dL) 116 H 134 H 135 H (75-99) mg/dL 02/12/20 Range/Units 08:12 RBC 2.67 L (3.80-5.40) m/uL Hgb 8.1 L (11.4-16.0) gm/dL Hct 25.7 L (34.0-46.0) % RDW 17.2 H (11.5-15.5) % POC Glucose (mg/dL) (75-99) mg/dL Microbiology - Last 24 Hours (Table) 02/07/20 06:50 Blood Culture - Preliminary Blood No Growth after 120 hours Assessment and Plan Assessment: Normocytic normochromic anemia without any active GI bleed. Possible diverticular bleed. Hemoglobin is stable compared to last admission. Possible urinary tract infection. UA negative on admission here Hypernatremia due to dehydration and volume depletion Recent COVID-19 infection with hypoxic respiratory failure. On room air cu rrently. Elevated troponin level likely due to recent COVID-19 and was seen by cardiology recently. Elevated BNP level without evidence of acute CHF. Acute kidney injury secondary infection. Improving Hypernatremia due to dehydration and volume depletion improved now Hypertension Hyperlipidemia Metabolic and toxic encephalopathy due to infection GI prophylaxis with PPI and DVT prophylaxis with SCDs Plan: Patient will be continued gentle IV hydration and monitor H&H.
--- NOTE | 2020-02-13 14:42 | P.PN ---
Subjective Progress Note Date: 02/13/20 Principal diagnosis: Acute GI bleed Acute blood loss anemia UTI acute renal injury 75-year-old female with a known history of hypertension, hyperlipidemia and recent admission with COVID-19 pneumonia with prolonged hospital stay due to hypoxic respiratory failure and was discharged from the hospital on 02/03/2020 was transferred from [facility] due to abnormal labs. Apparently patient was found to be hyponatremic with sodium level 151, hemoglobin 8.7 and BNP 16,000. Patient was given Protonix and also dose of Rocephin for possible UTI and was transferred to [facility] for higher level of care. Patient is awake alert and oriented x1-2 at baseline. Denied any complaints of chest pain or shortness of breath. Otherwise patient is a poor historian and most of the history was taken from the outside hospital records and ER note. 02/10/2020 Patient is seen and evaluated in room at bedside; patient had episode of large amount of bright red blood per rectum; hemoglobin dropped down to 6.7; GI is following and recommending 1 unit of packed RBC transfusion and transfer patient to ICU; surgery is on board; patient is status post colonoscopy done on 02/02/2020 which revealed diverticulosis; we'll continue to monitor H&H closely and transfuse as needed; GI is following but deferring further evaluation to stephanie gical service since patient underwent EGD with PEG tube placement and colonoscopy with their service during prior recent hospitalization 02/11/2020 Patient is seen and evaluated at bedside in ICU; patient was transferred to ICU yesterday after having bright red blood from rectum and hypotension; patient was resuscitated with IV fluids and was transfused with 2 units of packed RBCs; no further reports of rectal bleed; surgery is on board and ordered tagged RBC scan which was negative; hemoglobin is stable at 9.5; patient did have recent colonoscopy done which revealed diverticulosis; bright red blood per rectum is deemed possibly secondary to diverticular bleed; plan is to start patient on tube feeding via PEG tube with plans to repeat tagged RBC scan if bleeding r ecurs; patient remains on Protonix 02/12/2020 patient seen and evaluated in room at bedside, she is resting comfortably in bed, she's had no bleeding overnight, she looks very comfortable, breathing comfortably, she is on room air, pulse ox is 98%, blood pressure stable, b reathing is nonlabored, she's been afebrile, abdomen is nontender, she has PEG tube in place with tube feedings infusing, tolerating tube feedings well. His hemoglobin is 8.1. Remains on oral Protonix, she is on IV fluids at the 50 ML per hour, she remains on vitamin C, and zinc supplement for recent history of COVID 19 infection, blood cultures have shown no growth. 02/13/2020 Patient is seen in follow-up on the regular medical floor. She is awake and alert in no acute distress. Resting fairly comfortably in bed. Maintaining O2 saturations in the high 90s on room air. She's have a temperature of 100.0 earlier this a.m. but is currently afebrile. Hemodynamically stable. She is status post 2 units of packed red blood cells this admission. Current hemoglobi n 8.4. White count 8.8. She remains on Protonix. 0.9 normal saline at 50 MLS per hour. Being nourished with tube feedings. Patient is being followed by general surgery for GI bleed; possibly diver ticular; recommending to continue to monitor hemoglobin closely and continue with supportive care Objective - Vital Signs Vital signs: Vital Signs Temp 97.5 F L 02/13/20 07:31 Pulse 97 02/13/20 07:31 Resp 19 02/13/20 07:31 BP 127/61 02/13/20 07:31 Pulse Ox 99 02/13/20 07:31 Intake & Output 02/12/20 02/13/20 02/13/20 18:59 06:59 18:59 Intake Total 200 200 Output Total 500 Balance -300 200 Weight 91.8 kg Intake: Oral 100 Tube Feeding 100 200 Output: Urine 500 Other: Voiding Method Indwelling Catheter # Bowel Movements 2 2 - Exam - Constitutional General appearance: Present: average body habitus, cooperative, no acute distress - EENT Eyes: Present: anicteric sclerae, EOMI, PERRLA, normal appearance ENT: Present: hearing grossly normal, normal oropharynx Ears: bilateral: normal - Neck Neck: Present: normal ROM. Absent: lymphadenopathy, rigidity, thyromegaly Carotids: negative: bruit present Thyroid: bilateral: normal size, negative: enlarged, nodule - Respiratory Respiratory: bilateral: CTA, negative: rales, rhonchi, wheezing - Cardiovascular Rhythm: regular Heart sounds: normal: S1, S2 Abnormal Heart Sounds: Absent: systolic murmur, diastolic murmur - Gastrointestinal General gastrointestinal: Present: normal bowel sounds, soft. Absent: distended, organomegaly, tenderness - Genitourinary Genitourinary Comment(s): deferred - Integumentary Integumentary: Present: normal turgor. Absent: jaundiced, rash, ulcer - Neurologic Neurologic: Present: CNII-XII intact. Absent: focal deficits - Musculoskeletal Musculoskeletal: Present: gait normal, strength equal bilaterally - Psychiatric Psychiatric: Present: A&O x's 3, appropriate affect, intact judgment & insight - Labs CBC & Chem 7: 02/13/20 09:39 02/11/20 03:34 Labs: Abnormal Lab Results - Last 24 Hours (Table) 02/13/20 Range/Units 09:39 RBC 2.65 L (3.80-5.40) m/uL Hgb 8.4 L (11.4-16.0) gm/dL Hct 27.3 L (34.0-46.0) % MCV 103.1 H D (80.0-100.0) fL MCHC 30.8 L (31.0-37.0) g/dL RDW 17.5 H (11.5-15.5) % Lymphocytes # (Manual) 0.53 L (1.0-4.8) k/uL Metamyelocytes # (Man) 0.26 H (0) k/uL Myelocytes # (Manual) 0.35 H (0) k/uL Nucleated RBCs 1 H (0-0) /100 WBC Microbiology - Last 24 Hours (Table) 02/07/20 06:50 Blood Culture - Final Blood No Growth after 144 hours Assessment and Plan Assessment: Normocytic normochromic anemia without any active GI bleed. Possible diverticular bleed. Hemoglobin is stable compared to last admission. Possible urinary tract infection. UA negative on admission here Hypernatremia due to dehydration and volume depletion Recent COVID-19 infection with hypoxic respiratory failure. On room air currently. Elevated troponin level likely due to recent COVID-19 and was seen by cardiology recently. Elevated BNP level without evidence of acute CHF. Acute kidney injury secondary infection. Improving Hypernatremia due to dehydration and volume depletion improved now Hypertension Hyperlipidemia Metabolic and toxic encephalopathy due to infection GI prophylaxis with PPI and DVT prophylaxis with SCDs Plan: Patient will be continued gentle IV hydration and monitor H&H.
--- NOTE | 2020-02-13 15:02 | P.PN ---
Subjective Progress Note Date: 02/13/20 CHIEF COMPLAINT: Hematochezia HISTORY OF PRESENT ILLNESS: The patient is a 75 year old female re-admitted secondary to blood in stools. She denies abdominal pain. She denies any active bleeding. She does have baseline dementia. She is on tube feeds and tolerating. She has history of diverticulosis. REVIEW OF ORGAN SYSTEMS: No fevers or chills. Has dementia. PHYSICAL EXAM: VITALS: Reviewed CONSTITUTIONAL: Well developed and in no acute distress. EYES: Conjuctivae without sclera icterus. Extraocular movements grossly intact. HEAD, EARS, NOSE, THROAT: Moist buccal mucosa. Head is atraumatic, normocephalic. Hears conversational speech. No nasal drainage. RESPIRATORY: Non-labored respirations and equal bilateral excursions. No gross wheezes. CARDIOVASCULAR: Palpable 2+ radial pulses. ABDOMEN: Soft. Non-tender. Nondistended. No peritonitis MUSCULOSKELETAL: Nail and fingers with good capillary refill. SKIN: Warm and well perfused with good skin turgor. NEUROLOGIC: Cranial nerves II through XII grossly intact. No focal or lateralizing signs. PSYCH: Alert and oriented to person. CLINCAL LABS: Reviewed. Hgb 8.1 up to 8.4. ASSESSMENT: 1. Hematochezia 2. Thrombocytopenia PLAN: 1. Hemoglobin has been improving. 2. No surgical intervention. 3. Continue to monitor. Objective - Vital Signs Vital signs: Vital Signs Temp 99.3 F 02/13/20 14:48 Pulse 93 02/13/20 14:48 Resp 19 02/13/20 14:48 BP 137/78 02/13/20 14:48 Pulse Ox 95 02/13/20 14:48 Intake & Output 02/12/20 02/13/20 02/13/20 18:59 06:59 18:59 Intake Total 200 200 Output Total 500 Balance -300 200 Weight 91.8 kg Intake: Oral 100 Tube Feeding 100 200 Output: Urine 500 Other: Voiding Method Indwelling Catheter # Bowel Movements 2 2 - Labs CBC & Chem 7: 02/13/20 09:39 02/11/20 03:34 Labs: Abnormal Lab Results - Last 24 Hours (Table) 02/13/20 Range/Units 09:39 RBC 2.65 L (3.80-5.40) m/uL Hgb 8.4 L (11.4-16.0) gm/dL Hct 27.3 L (34.0-46.0) % MCV 103.1 H D (80.0-100.0) fL MCHC 30.8 L (31.0-37.0) g/dL RDW 17.5 H (11.5-15.5) % Lymphocytes # (Manual) 0.53 L (1.0-4.8) k/uL Metamyelocytes # (Man) 0.26 H (0) k/uL Myelocytes # (Manual) 0.35 H (0) k/uL Nucleated RBCs 1 H (0-0) /100 WBC Microbiology - Last 24 Hours (Table) 02/07/20 06:50 Blood Culture - Final Blood No Growth after 144 hours Assessment and Plan (1) GI bleed Current Visit: Yes Status: Acute Code(s): K92.2 - GASTROINTESTINAL HEMORRHAGE, UNSPECIFIED SNOMED Code(s): 30798876 (2) Normocytic normochromic anemia Current Visit: Yes Status: Acute Code(s): D64.9 - ANEMIA, UNSPECIFIED SNOMED Code(s): 24346008 (3) COVID-19 Current Visit: No Status: Acute Code(s): U07.1 - COVID-19 SNOMED Code(s): 586320774 (4) Thrombocytopenia Current Visit: Yes Status: Acute Code(s): D69.6 - THROMBOCYTOPENIA, UNSPECIFIED SNOMED Code(s): 562487669 (5) Diverticulosis Current Visit: Yes Status: Acute Code(s): K57.90 - DVRTCLOS OF INTEST, PART UNSP, W/O PERF OR ABSCESS W/O BLEED SNOMED Code(s): 321686222
[2020-02-13] MEDS: INSULIN DETEMIR (LEVEMIR) 100 UNIT/ML SYR SQ SCH (20:20)
[2020-02-13] MEDS: SODIUM CHLORIDE 0.9% 1,000 ML IV SCH (20:21)
[2020-02-13] MEDS: ACETAMINOPHEN TAB 325 MG TAB PO PRN (20:25)
[2020-02-14] MEDS: ASCORBIC ACID 500 MG TAB PO SCH ×2 (08:07→20:40)
[2020-02-14] MEDS: ZINC SULFATE 220 MG CAP PO SCH (08:07)
[2020-02-14] MEDS: PANTOPRAZOLE 40 MG TABLET PO SCH (08:07)
[2020-02-14] MEDS: ACETAMINOPHEN TAB 325 MG TAB PO PRN ×3 (08:07→23:05)
[2020-02-14] MEDS: CHOLECALCIFEROL 1,000 UNIT TAB PO SCH (08:07)
[2020-02-14 10:29] LABS: Anisocytosis Slight; HCT 27.3 % (34.0-46.0); HGB 8.9 gm/dL (11.4-16.0); Hypochromasia Moderate; MCH 31.3 pg (25.0-35.0); MCHC 32.4 g/dL (31.0-37.0); Macrocytosis Slight; Mean Platelet Volume 8.8; Platelet Count 225 k/uL (150-450); Poikilocytosis Slight; RBC 2.83 m/uL (3.80-5.40); RDW 17.2 % (11.5-15.5); WBC 9.4 k/uL (3.8-10.6)
[2020-02-14 10:34] LABS: MCV 96.5 fL (80.0-100.0)
[2020-02-14 10:55] LABS: Band Neutrophils % 3 %; Eosinophils # (M) 0.09 k/uL (0-0.7); Lymphocytes # (M) 0.28 k/uL (1.0-4.8); Metamyelocytes # (M) 0.19 k/uL (0); Metamyelocytes % 2 %; Monocytes # (M) 0.28 k/uL (0-1.0); Myelocytes # (M) 0.19 k/uL (0); Myelocytes % 2 %; Neutrophils % (M) 88 %; Nucleated Red Blood Cells 0 /100 WBC (0-0); Total Cells Counted 200
--- NOTE | 2020-02-14 13:17 | P.PN ---
Subjective Progress Note Date: 02/14/20 Principal diagnosis: Acute GI bleed 75-year-old white female patient with the recent history of prolonged hospitalization for COVID 19 pneumonitis, and following her hospitalization patient was discharged to [facility] for rehabilitation, 2 days after her discharge on 02/06/2020 patient was brought back to the emergency department in the thumb area for a concern of urinary tract infection, hyponatremia, and decubitus ulcers. He was also found to be Hemoccult positive, her admission hemoglobin was 8.7, sodium was 151, and she also had a elevated proBNP of 16,000. Patient was started on antibiotics in form of Rocephin, he was given IV fluids. Yesterday A-team was called on 02/10/2020 for concerns of bright red bleeding per rectum. She also became hypotensive with a systolic in the 80s, she was given IV fluids, and she received 2 units of packed red blood cells. Packed RBC scan was negative, she's had no further bleeding overnight, her blood pressure stable, she is currently complaining was seen at a rate of 50 ML per hour, she is on room air, with a pulse ox of 95-96%, blood pressures 108/65, she is in sinus mechanism with a rate of 84 BPM, she's been afebrile, he is not on any anticoagulation, she is receiving oral Protonix. Today's labs have been reviewed, showing hemoglobin of 9.5, white blood cell count is 10.2, sodium is 144, potassium is 5.0, chloride is 120, CO2 23, BUN of 78, and creatinine is 1.3. Patient is nothing by mouth, and she is being followed by surgery On 02/12/2020 patient seen in follow-up on a general medical surgical floor, she is resting comfortably in bed, she's had no bleeding overnight, she looks very comfortable, breathing comfortably, she is on room air, pulse ox is 98%, blood pressure stable, breathing is nonlabored, she's been afebrile, abdomen is nontender, she has PEG tube in place with tube feedings infusing, tolerating tube feedings well. His hemoglobin is 8.1. Remains on oral Protonix, she is on IV fluids at the 50 ML per hour, she remains on vitamin C, and zinc supplement for recent history of COVID 19 infection, blood cultures have shown no growth. The patient is seen today 02/13/2020 in follow-up on the regular medical floor. She is awake and alert in no acute distress. Resting fairly comfortably in bed. Maintaining O2 saturations in the high 90s on room air. She's have a temperature of 100.0 earlier this a.m. but is currently afebrile. Hemodynamically stable. She is status post 2 units of packed red blood cells this admission. Current hemoglobin 8.4. White count 8.8. She remains on Protonix. 0.9 normal saline at 50 MLS per hour. Being nourished with tube feedings. The patient is seen today 02/14/2020 in follow-up on the regular medical floor. She is currently resting comfortably in bed. Awake and alert in no acute distress. She continues to maintain good O2 saturations in the 90s on room air and she is afebrile. No further GI bleeding reported. She is status post 2 units of packed red blood cells this admission. Current hemoglobin 8.9. White count 9.4. Objective - Vital Signs Vital signs: Vital Signs Temp 98.6 F 02/14/20 07:16 Pulse 100 02/14/20 07:16 Resp 18 02/14/20 07:16 BP 135/81 02/14/20 07:16 Pulse Ox 97 02/14/20 07:16 Intake & Output 02/13/20 02/14/20 02/14/20 18:59 06:59 18:59 Intake Total 200 400 Output Total 1653 Balance 200 -1253 Weight 92 kg Intake: Oral 200 Tube Feeding 200 200 Output: Urine 1650 Stool 3 Other: Voiding Method Indwelling Catheter # Voids 0 # Bowel Movements 2 1 - Exam GENERAL EXAM: Awake, alert, 75-year-old female patient, on room air, comfortable in no apparent distress. HEAD: Normocephalic/atraumatic. EYES: Normal reaction of pupils, equal size. Conjunctiva pink, sclera white. NOSE: Clear with pink turbinates. THROAT: No erythema or exudates. NECK: No masses, no JVD, no thyroid enlargement, no adenopathy. CHEST: No chest wall deformity. Symmetrical expansion. LUNGS: Equal air entry with no crackles, wheeze, rhonchi or dullness. CVS: Regular rate and rhythm, normal S1 and S2, no gallops, no murmurs, no rubs ABDOMEN: Soft, nontender. No hepatosplenomegaly, normal bowel sounds, no guarding or rigidity. PEG tube in place with tube feedings infusing EXTREMITIES: No clubbing, no edema, no cyanosis, 2+ pulses and upper and lower extremities. MUSCULOSKELETAL: Muscle strength and tone normal. SPINE: No scoliosis or deformity SKIN: No rashes CENTRAL NERVOUS SYSTEM: No focal deficits, tone is normal in all 4 extremities. PSYCHIATRIC: Alert and oriented -3. Appropriate affect. Intact judgment and insight. - Labs CBC & Chem 7: 02/14/20 10:14 02/11/20 03:34 Labs: Abnormal Lab Results - Last 24 Hours (Table) 02/14/20 Range/Units 10:14 RBC 2.83 L (3.80-5.40) m/uL Hgb 8.9 L (11.4-16.0) gm/dL Hct 27.3 L (34.0-46.0) % RDW 17.2 H (11.5-15.5) % Neutrophils # (Manual) 8.50 H (1.3-7.7) k/uL Lymphocytes # (Manual) 0.28 L (1.0-4.8) k/uL Metamyelocytes # (Man) 0.19 H (0) k/uL Myelocytes # (Manual) 0.19 H (0) k/uL Microbiology - Last 24 Hours (Table) 02/07/20 06:50 Blood Culture - Final Blood No Growth after 144 hours Assessment and Plan Assessment: 1 Acute gastrointestinal bleeding, patient was having bright red bleeding per rectum. Hemoglobin was down to 6.7 from 8.7, requiring 2 units of packed red blood cells my current hemoglobin 8.9 2 Hypovolemic hypotension related to acute GI bleeding, improved with IV fluids and blood transfusions 3 Recent nearly one month hospital admission from January 04 to February 02 for CoVID 19 pneumonitis/pneumonia with acute hypoxemic respiratory failure 4 Status post PEG tube placement for nutrition 5 History of hyperlipidemia 6 History of hypertension 7 History of chronic kidney disease 8 History of anemia 9 Hypernatremia related to volume depletion, improved with IV hydration 10 Possible urinary tract infection, urinalysis was rechecked on admission to this hospital in was negative 11 Acute kidney injury, improving 12 Acute metabolic and toxic encephalopathy Plan: The patient was seen and evaluated by Dr. Leon She remains stable from the pulmonary standpoint, on room air We will see the patient as needed I, the cosigning physician, performed a history & physical examination of the patient. Lungs sounds are clear. Maintaining good O2 saturations in the 90s on room air. I discussed the assessment and plan of care with my nurse practitioner, Candi Hotron. I attest to the above note as dictated by her.
--- NOTE | 2020-02-14 13:56 | P.PN ---
Subjective Progress Note Date: 02/14/20 CHIEF COMPLAINT: Hematochezia HISTORY OF PRESENT ILLNESS: The patient is a 75 year old female re-admitted secondary to blood in stools. She has history of diverticulosis. Previous bright blood cell tag scan has been negative. She is tolerating regular diet. REVIEW OF ORGAN SYSTEMS: No fevers or chills. Has dementia. PHYSICAL EXAM: VITALS: Reviewed CONSTITUTIONAL: Well developed and in no acute distress. EYES: Conjuctivae without sclera icterus. Extraocular movements grossly intact. HEAD, EARS, NOSE, THROAT: Moist buccal mucosa. Head is atraumatic, normocephalic. Hears conversational speech. No nasal drainage. RESPIRATORY: Non-labored respirations and equal bilateral excursions. No gross wheezes. CARDIOVASCULAR: Palpable 2+ radial pulses. ABDOMEN: Nontender. MUSCULOSKELETAL: Nail and fingers with good capillary refill. SKIN: Warm and well perfused with good skin turgor. NEUROLOGIC: Cranial nerves II through XII grossly intact. No focal or lateralizing signs. PSYCH: Alert and oriented to person. CLINCAL LABS: Reviewed. Hgb 8.1 up to 8.4, now 8.9. ASSESSMENT: 1. Hematochezia 2. Thrombocytopenia PLAN: 1. Patient stable from a surgical standpoint for discharge once medically stable Objective - Vital Signs Vital signs: Vital Signs Temp 98.6 F 02/14/20 07:16 Pulse 100 02/14/20 07:16 Resp 18 02/14/20 07:16 BP 135/81 02/14/20 07:16 Pulse Ox 97 02/14/20 07:16 Intake & Output 02/13/20 02/14/20 02/14/20 18:59 06:59 18:59 Intake Total 200 400 Output Total 1653 Balance 200 -1253 Weight 92 kg Intake: Oral 200 Tube Feeding 200 200 Output: Urine 1650 Stool 3 Other: Voiding Method Indwelling Catheter # Voids 0 # Bowel Movements 2 1 - Labs CBC & Chem 7: 02/14/20 10:14 02/11/20 03:34 Labs: Abnormal Lab Results - Last 24 Hours (Table) 02/14/20 Range/Units 10:14 RBC 2.83 L (3.80-5.40) m/uL Hgb 8.9 L (11.4-16.0) gm/dL Hct 27.3 L (34.0-46.0) % RDW 17.2 H (11.5-15.5) % Neutrophils # (Manual) 8.50 H (1.3-7.7) k/uL Lymphocytes # (Manual) 0.28 L (1.0-4.8) k/uL Metamyelocytes # (Man) 0.19 H (0) k/uL Myelocytes # (Manual) 0.19 H (0) k/uL Microbiology - Last 24 Hours (Table) 02/07/20 06:50 Blood Culture - Final Blood No Growth after 144 hours Assessment and Plan (1) GI bleed Current Visit: Yes Status: Acute Code(s): K92.2 - GASTROINTESTINAL HEMORRHAGE, UNSPECIFIED SNOMED Code(s): 18012924 (2) Normocytic normochromic anemia Current Visit: Yes Status: Acute Code(s): D64.9 - ANEMIA, UNSPECIFIED SNOMED Code(s): 99298162 (3) COVID-19 Current Visit: No Status: Acute Code(s): U07.1 - COVID-19 SNOMED Code(s): 157635490 (4) Thrombocytopenia Current Visit: Yes Status: Acute Code(s): D69.6 - THROMBOCYTOPENIA, UNSPECIFIED SNOMED Code(s): 360207926 (5) Diverticulosis Current Visit: Yes Status: Acute Code(s): K57.90 - DVRTCLOS OF INTEST, PART UNSP, W/O PERF OR ABSCESS W/O BLEED SNOMED Code(s): 502428329
[2020-02-14] MEDS: LOPERAMIDE 2 MG CAP PO PRN (15:08)
[2020-02-14] MEDS: SODIUM CHLORIDE 0.9% 1,000 ML IV SCH (16:53)
[2020-02-14] MEDS: INSULIN DETEMIR (LEVEMIR) 100 UNIT/ML SYR SQ SCH (20:51)
[2020-02-15 09:26] LABS: Glucose,Whole Blood 155 mg/dL (75-99)
[2020-02-15 09:26] LABS: Glucose,Whole Blood 138 mg/dL (75-99)
[2020-02-15 09:26] LABS: Glucose,Whole Blood 103 mg/dL (75-99)
--- NOTE | 2020-02-15 09:26 | P.PN ---
Subjective Progress Note Date: 02/15/20 CHIEF COMPLAINT: Hematochezia HISTORY OF PRESENT ILLNESS: The patient is a 75 year old female re-admitted secondary to blood in stools. She had a bowel movement yesterday. No reports of fresh clots. She is on tube feeds at 50 mL/hr now off. REVIEW OF ORGAN SYSTEMS: No fevers or chills. Has dementia. PHYSICAL EXAM: VITALS: Reviewed CONSTITUTIONAL: Well developed and in no acute distress. EYES: Conjuctivae without sclera icterus. Extraocular movements grossly intact. HEAD, EARS, NOSE, THROAT: Moist buccal mucosa. Head is atraumatic, normocephalic. No nasal drainage. RESPIRATORY: Non-labored respirations and equal bilateral excursions. No gross wheezes. CARDIOVASCULAR: 2+ radial pulses. ABDOMEN: Nontender. Urine is clear yellow. MUSCULOSKELETAL: Nail and fingers with good capillary refill. SKIN: Warm and well perfused with good skin turgor. NEUROLOGIC: Cranial nerves II through XII grossly intact. No focal or lateralizing signs. PSYCH: Alert and oriented to person. CLINCAL LABS: No new labs ASSESSMENT: 1. Hematochezia 2. Thrombocytopenia PLAN: 1. No new reports of gastrointestinal bleed. 2. Repeat Hemoglobin Objective - Vital Signs Vital signs: Vital Signs Temp 98.3 F 02/15/20 08:50 Pulse 93 02/15/20 08:50 Resp 20 02/15/20 08:50 BP 133/110 02/15/20 08:50 Pulse Ox 100 02/15/20 08:50 Intake & Output 02/14/20 02/15/20 02/15/20 18:59 06:59 18:59 Intake Total 800 Output Total 354 300 Balance 446 -300 Weight 91 kg Intake: IV 600 Sodium Chloride 0.9% 1, 600 000 ml @ 50 mls/hr IV . Q20H [facility] Rx#:[id number] Tube Feeding 200 Output: Urine 350 300 Stool 4 Other: Voiding Method Indwelling Catheter Indwelling Catheter - Labs CBC & Chem 7: 02/14/20 10:14 02/11/20 03:34 Labs: Abnormal Lab Results - Last 24 Hours (Table) 02/14/20 Range/Units 10:14 RBC 2.83 L (3.80-5.40) m/uL Hgb 8.9 L (11.4-16.0) gm/dL Hct 27.3 L (34.0-46.0) % RDW 17.2 H (11.5-15.5) % Neutrophils # (Manual) 8.50 H (1.3-7.7) k/uL Lymphocytes # (Manual) 0.28 L (1.0-4.8) k/uL Metamyelocytes # (Man) 0.19 H (0) k/uL Myelocytes # (Manual) 0.19 H (0) k/uL Assessment and Plan (1) GI bleed Current Visit: Yes Status: Acute Code(s): K92.2 - GASTROINTESTINAL HEMORRHAGE, UNSPECIFIED SNOMED Code(s): 50823752 (2) Normocytic normochromic anemia Current Visit: Yes Status: Acute Code(s): D64.9 - ANEMIA, UNSPECIFIED SNOMED Code(s): 27481602 (3) COVID-19 Current Visit: No Status: Acute Code(s): U07.1 - COVID-19 SNOMED Code(s): 437459064 (4) Thrombocytopenia Current Visit: Yes Status: Acute Code(s): D69.6 - THROMBOCYTOPENIA, UNSPECIFIED SNOMED Code(s): 979866983 (5) Diverticulosis Current Visit: Yes Status: Acute Code(s): K57.90 - DVRTCLOS OF INTEST, PART UNSP, W/O PERF OR ABSCESS W/O BLEED SNOMED Code(s): 259941036
[2020-02-15] MEDS: CHOLECALCIFEROL 1,000 UNIT TAB PO SCH (09:27)
[2020-02-15 09:28] LABS: Glucose,Whole Blood 108 mg/dL (75-99)
[2020-02-15] MEDS: ACETAMINOPHEN TAB 325 MG TAB PO PRN (09:28)
[2020-02-15] MEDS: ZINC SULFATE 220 MG CAP PO SCH (09:28)
[2020-02-15] MEDS: LOPERAMIDE 2 MG CAP PO PRN (09:28)
[2020-02-15] MEDS: ASCORBIC ACID 500 MG TAB PO SCH ×2 (09:28→20:49)
[2020-02-15] MEDS: PANTOPRAZOLE 40 MG TABLET PO SCH (09:28)
[2020-02-15 09:29] LABS: Glucose,Whole Blood 130 mg/dL (75-99)
[2020-02-15 09:29] LABS: Glucose,Whole Blood 131 mg/dL (75-99)
[2020-02-15 09:29] LABS: Glucose,Whole Blood 176 mg/dL (75-99)
[2020-02-15 09:29] LABS: Glucose,Whole Blood 120 mg/dL (75-99)
[2020-02-15 09:37] LABS: Glucose,Whole Blood 106 mg/dL (75-99)
[2020-02-15 09:39] LABS: Glucose,Whole Blood 150 mg/dL (75-99)
[2020-02-15 09:43] LABS: Glucose,Whole Blood 227 mg/dL (75-99)
[2020-02-15 09:43] LABS: Glucose,Whole Blood 124 mg/dL (75-99)
[2020-02-15 11:34] LABS: Anisocytosis Slight; HCT 24.3 % (34.0-46.0); HGB 7.7 gm/dL (11.4-16.0); Hypochromasia Moderate; MCH 30.8 pg (25.0-35.0); MCHC 31.8 g/dL (31.0-37.0); MCV 96.8 fL (80.0-100.0); Macrocytosis Slight; Mean Platelet Volume 8.8; Platelet Count 204 k/uL (150-450); Poikilocytosis Slight; RBC 2.52 m/uL (3.80-5.40)
[2020-02-15 11:45] LABS: African American GFR (CKD) 41 (>60 ml/min/1.73 sqM); Anion Gap 3 mmol/L; Blood Urea Nitrogen 67 mg/dL (7-17); Calcium 7.2 mg/dL (8.4-10.2); Carbon Dioxide 23 mmol/L (22-30); Chloride 118 mmol/L (98-107); Glucose 82 mg/dL (74-99); Non-African American GFR(CKD) 36 (>60 ml/min/1.73 sqM); Potassium 4.5 mmol/L (3.5-5.1); Sodium 144 mmol/L (137-145)
[2020-02-15] MEDS ORDERED: FUROSEMIDE 10 MG/ML 4 ML VIAL IV STA (12:01)
[2020-02-15 12:20] LABS: Band Neutrophils % 4 %; Basophils # (M) 0.09 k/uL (0-0.2); Lymphocytes # (M) 0.45 k/uL (1.0-4.8); Metamyelocytes # (M) 0.27 k/uL (0); Metamyelocytes % 3 %; Monocytes # (M) 0.54 k/uL (0-1.0); Myelocytes # (M) 0.18 k/uL (0); Myelocytes % 2 %; Neutrophils % (M) 81 %; Nucleated Red Blood Cells 0 /100 WBC (0-0); Total Cells Counted 200
[2020-02-15] MEDS: ALBUMIN HUMAN 25% 50 ML in EMPTY BAG 1 BAG IVPB SCH ×2 (12:55→13:53)
[2020-02-15] MEDS: SODIUM CHLORIDE 0.9% 1,000 ML IV SCH (13:00)
[2020-02-15 14:31] LABS: ABG Base Excess -2.1 mmol/L; ABG HCO3 22 mmol/L (21-25); ABG Oxygen Saturation 97.1 % (94-97); ABG PCO2 32 mmHg (35-45); ABG PH 7.44 (7.35-7.45); ABG PO2 73 mmHg (83-108); ABG TCO2 23 mmol/L (19-24); Allen Test Performed? Yes
--- NOTE | 2020-02-15 14:43 | XR ---
EXAMINATION TYPE: XR chest 1V portable DATE OF EXAM: 02/15/2020 COMPARISON: 02/06/2020 HISTORY: Difficulty breathing TECHNIQUE: FINDINGS: There is poor inspiration. There is coarse interstitial infiltrate in the left lung with el evated left diaphragm. There is mild diffuse interstitial increased density right lung. There is no d efinite heart failure. Thoracic aorta is atheromatous. IMPRESSION: Bilateral pulmonary interstitial infiltrates with left basilar atelectasis not significan tly different than last exam. This is also not significantly different than older exam of 01/07/2020 and consistent with some chronic pulmonary interstitial fibrosis.
[2020-02-15 16:44] LABS: Glucose,Whole Blood 86 mg/dL (75-99)
[2020-02-15] MEDS: ALBUTEROL NEBULIZED 2.5 MG/3 ML INHALATION PRN (20:22)
[2020-02-15 20:49] LABS: Glucose,Whole Blood 116 mg/dL (75-99)
[2020-02-15] MEDS: INSULIN DETEMIR (LEVEMIR) 100 UNIT/ML SYR SQ SCH (20:50)
[2020-02-16 06:44] LABS: Glucose,Whole Blood 160 mg/dL (75-99)
[2020-02-16] MEDS: ASCORBIC ACID 500 MG TAB PO SCH ×2 (08:19→20:26)
[2020-02-16] MEDS: ZINC SULFATE 220 MG CAP PO SCH (08:19)
[2020-02-16] MEDS: CHOLECALCIFEROL 1,000 UNIT TAB PO SCH (08:20)
[2020-02-16] MEDS: PANTOPRAZOLE 40 MG TABLET PO SCH (08:20)
[2020-02-16] MEDS: SODIUM CHLORIDE 0.9% 1,000 ML IV SCH (08:22)
--- NOTE | 2020-02-16 08:33 | P.PN ---
Subjective Progress Note Date: 02/14/20 Principal diagnosis: Acute GI bleed Acute blood loss anemia UTI acute renal injury 75-year-old female with a known history of hypertension, hyperlipidemia and recent admission with COVID-19 pneumonia with prolonged hospital stay due to hypoxic respiratory failure and was discharged from the hospital on 02/03/2020 was transferred from [facility] and [facility] due to abnormal labs. Apparently patient was found to be hyponatremic with sodium level 151, hemoglobin 8.7 and BNP 16,000. Patient was given Protonix and also dose of Rocephin for possible UTI and was transferred to [facility] for higher level of care. Patient is awake alert and oriented x1-2 at baseline. Denied any complaints of chest pain or shortness of breath. Otherwise patient is a poor historian and most of the history was taken from the outside hospital records and ER note. 02/10/2020 Patient is seen and evaluated in room at bedside; patient had episode of large amount of bright red blood per rectum; hemoglobin dropped down to 6.7; GI is following and recommending 1 unit of packed RBC transfusion and transfer patient to ICU; surgery is on board; patient is status post colonoscopy done on 02/02/2020 which revealed diverticulosis; we'll continue to monitor H&H closely and transfuse as needed; GI is following but deferring further evaluation to stephanie gical service since patient underwent EGD with PEG tube placement and colonoscopy with their service during prior recent hospitalization 02/11/2020 Patient is seen and evaluated at bedside in ICU; patient was transferred to ICU yesterday after having bright red blood from rectum and hypotension; patient was resuscitated with IV fluids and was transfused with 2 units of packed RBCs; no further reports of rectal bleed; surgery is on board and ordered tagged RBC scan which was negative; hemoglobin is stable at 9.5; patient did have recent colonoscopy done which revealed diverticulosis; bright red blood per rectum is deemed possibly secondary to diverticular bleed; plan is to start patient on tube feeding via PEG tube with plans to repeat tagged RBC scan if bleeding r ecurs; patient remains on Protonix 02/12/2020 patient seen and evaluated in room at bedside, she is resting comfortably in bed, she's had no bleeding overnight, she looks very comfortable, breathing comfortably, she is on room air, pulse ox is 98%, blood pressure stable, b reathing is nonlabored, she's been afebrile, abdomen is nontender, she has PEG tube in place with tube feedings infusing, tolerating tube feedings well. His hemoglobin is 8.1. Remains on oral Protonix, she is on IV fluids at the 50 ML per hour, she remains on vitamin C, and zinc supplement for recent history of COVID 19 infection, blood cultures have shown no growth. 02/13/2020 Patient is seen in follow-up on the regular medical floor. She is awake and alert in no acute distress. Resting fairly comfortably in bed. Maintaining O2 saturations in the high 90s on room air. She's have a temperature of 100.0 earlier this a.m. but is currently afebrile. Hemodynamically stable. She is status post 2 units of packed red blood cells this admission. Current hemoglobi n 8.4. White count 8.8. She remains on Protonix. 0.9 normal saline at 50 MLS per hour. Being nourished with tube feedings. Patient is being followed by general surgery for GI bleed; possibly diver ticular; recommending to continue to monitor hemoglobin closely and continue with supportive care 02/14/2020 Patient is seen and evaluated in follow-up. She is currently resting comfortably in bed. Awake and alert in no acute distress. She continues to maintain good O2 saturations in the 90s on room air and she is afebrile. No further GI bleeding reported. She is status post 2 units of packed red blood cells this admission. Current hemoglobin 8.9. White count 9.4. Surgery is following patient and no interventions are recommended; Objective - Vital Signs Vital signs: Vital Signs Temp 98.6 F 02/14/20 07:16 Pulse 100 02/14/20 07:16 Resp 18 02/14/20 07:16 BP 135/81 02/14/20 07:16 Pulse Ox 97 02/14/20 07:16 Intake & Output 02/13/20 02/14/20 02/14/20 18:59 06:59 18:59 Intake Total 200 400 Output Total 1653 Balance 200 -1253 Weight 92 kg Intake: Oral 200 Tube Feeding 200 200 Output: Urine 1650 Stool 3 Other: Voiding Method Indwelling Catheter # Voids 0 # Bowel Movements 2 1 - Exam - Constitutional General appearance: Present: average body habitus, cooperative, no acute distress - EENT Eyes: Present: anicteric sclerae, EOMI, PERRLA, normal appearance ENT: Present: hearing grossly normal, normal oropharynx Ears: bilateral: normal - Neck Neck: Present: normal ROM. Absent: lymphadenopathy, rigidity, thyromegaly Carotids: negative: bruit present Thyroid: bilateral: normal size, negative: enlarged, nodule - Respiratory Respiratory: bilateral: CTA, negative: rales, rhonchi, wheezing - Cardiovascular Rhythm: regular Heart sounds: normal: S1, S2 Abnormal Heart Sounds: Absent: systolic murmur, diastolic murmur - Gastrointestinal General gastrointestinal: Present: normal bowel sounds, soft. Absent: distended, organomegaly, tenderness - Genitourinary Genitourinary Comment(s): deferred - Integumentary Integumentary: Present: normal turgor. Absent: jaundiced, rash, ulcer - Neurologic Neurologic: Present: CNII-XII intact. Absent: focal deficits - Musculoskeletal Musculoskeletal: Present: gait normal, strength equal bilaterally - Psychiatric Psychiatric: Present: A&O x's 3, appropriate affect, intact judgment & insight - Labs CBC & Chem 7: 02/15/20 11:17 02/15/20 11:17 Labs: Abnormal Lab Results - Last 24 Hours (Table) 02/14/20 Range/Units 10:14 RBC 2.83 L (3.80-5.40) m/uL Hgb 8.9 L (11.4-16.0) gm/dL Hct 27.3 L (34.0-46.0) % RDW 17.2 H (11.5-15.5) % Neutrophils # (Manual) 8.50 H (1.3-7.7) k/uL Lymphocytes # (Manual) 0.28 L (1.0-4.8) k/uL Metamyelocytes # (Man) 0.19 H (0) k/uL Myelocytes # (Manual) 0.19 H (0) k/uL Microbiology - Last 24 Hours (Table) 02/07/20 06:50 Blood Culture - Final Blood No Growth after 144 hours Assessment and Plan Assessment: Normocytic normochromic anemia without any active GI bleed. Possible diverticular bleed. Hemoglobin is stable compared to last admission. Possible urinary tract infection. UA negative on admission here Hypernatremia due to dehydration and volume depletion Recent COVID-19 infection with hypoxic respiratory failure. On room air currently. Elevated troponin level likely due to recent COVID-19 and was seen by cardiology recently. Elevated BNP level without evidence of acute CHF. Acute kidney injury secondary infection. Improving Hypernatremia due to dehydration and volume depletion improved now Hypertension Hyperlipidemia Metabolic and toxic encephalopathy due to infection GI prophylaxis with PPI and DVT prophylaxis with SCDs Plan: Patient will be continued gentle IV hydration and monitor H&H.
--- NOTE | 2020-02-16 08:44 | P.PN ---
Subjective Progress Note Date: 02/15/20 Principal diagnosis: Acute GI bleed Acute blood loss anemia UTI acute renal injury 75-year-old female with a known history of hypertension, hyperlipidemia and recent admission with COVID-19 pneumonia with prolonged hospital stay due to hypoxic respiratory failure and was discharged from the hospital on 02/03/2020 was transferred from [facility] due to abnormal labs. Apparently patient was found to be hyponatremic with sodium level 151, hemoglobin 8.7 and BNP 16,000. Patient was given Protonix and also dose of Rocephin for possible UTI and was transferred to [facility] for higher level of care. Patient is awake alert and oriented x1-2 at baseline. Denied any complaints of chest pain or shortness of breath. Otherwise patient is a poor historian and most of the history was taken from the outside hospital records and ER note. 02/10/2020 Patient is seen and evaluated in room at bedside; patient had episode of large amount of bright red blood per rectum; hemoglobin dropped down to 6.7; GI is following and recommending 1 unit of packed RBC transfusion and transfer patient to ICU; surgery is on board; patient is status post colonoscopy done on 02/02/2020 which revealed diverticulosis; we'll continue to monitor H&H closely and transfuse as needed; GI is following but deferring further evaluation to stephanie gical service since patient underwent EGD with PEG tube placement and colonoscopy with their service during prior recent hospitalization 02/11/2020 Patient is seen and evaluated at bedside in ICU; patient was transferred to ICU yesterday after having bright red blood from rectum and hypotension; patient was resuscitated with IV fluids and was transfused with 2 units of packed RBCs; no further reports of rectal bleed; surgery is on board and ordered tagged RBC scan which was negative; hemoglobin is stable at 9.5; patient did have recent colonoscopy done which revealed diverticulosis; bright red blood per rectum is deemed possibly secondary to diverticular bleed; plan is to start patient on tube feeding via PEG tube with plans to repeat tagged RBC scan if bleeding r ecurs; patient remains on Protonix 02/12/2020 patient seen and evaluated in room at bedside, she is resting comfortably in bed, she's had no bleeding overnight, she looks very comfortable, breathing comfortably, she is on room air, pulse ox is 98%, blood pressure stable, b reathing is nonlabored, she's been afebrile, abdomen is nontender, she has PEG tube in place with tube feedings infusing, tolerating tube feedings well. His hemoglobin is 8.1. Remains on oral Protonix, she is on IV fluids at the 50 ML per hour, she remains on vitamin C, and zinc supplement for recent history of COVID 19 infection, blood cultures have shown no growth. 02/13/2020 Patient is seen in follow-up on the regular medical floor. She is awake and alert in no acute distress. Resting fairly comfortably in bed. Maintaining O2 saturations in the high 90s on room air. She's have a temperature of 100.0 earlier this a.m. but is currently afebrile. Hemodynamically stable. She is status post 2 units of packed red blood cells this admission. Current hemoglobi n 8.4. White count 8.8. She remains on Protonix. 0.9 normal saline at 50 MLS per hour. Being nourished with tube feedings. Patient is being followed by general surgery for GI bleed; possibly diver ticular; recommending to continue to monitor hemoglobin closely and continue with supportive care 02/14/2020 Patient is seen and evaluated in follow-up. She is currently resting comfortably in bed. Awake and alert in no acute distress. She continues to maintain good O2 saturations in the 90s on room air and she is afebrile. No further GI bleeding reported. She is status post 2 units of packed red blood cells this admission. Current hemoglobin 8.9. White count 9.4. Surgery is following patient and no interventions are recommended 02/15/2020 Patient is seen and evaluated in room at bedside; currently resting comfortably; patient discussed with RN earlier today and was given Albumin infusion followed by IV lasix for generalized anasarca; Cxray was obtained which remains unchanged; ABGs reveal PCO2 of 32 and PO2 at 73 with SpO2 of 97.1%; Hgb is 7.7; BUN/Cr of 67/1.42, up from 78/1.3; we will monitor and consult nephro if remains elevated; Trop is elevated at 0.09; we will wait for next trop drawn; we will continue to monitor CBC and clinically with plans for dc if remains stable. Patient to be [facility] to [facility] when insurance authorization is obtained Objective - Vital Signs Vital signs: Vital Signs Temp 98.5 F 02/15/20 15:11 Pulse 85 02/15/20 15:11 Resp 17 02/15/20 15:11 BP 136/84 02/15/20 15:11 Pulse Ox 97 02/15/20 15:11 Intake & Output 02/14/20 02/15/20 02/15/20 18:59 06:59 18:59 Intake Total 800 200 Output Total 354 300 Balance 446 -300 200 Weight 91 kg Intake: IV 600 Sodium Chloride 0.9% 1, 600 000 ml @ 50 mls/hr IV . Q20H [facility] Rx#:[id number] Tube Feeding 200 200 Output: Urine 350 300 Stool 4 Other: Voiding Method Indwelling Catheter Indwelling Catheter Indwelling Catheter - Exam - Constitutional General appearance: Present: average body habitus, cooperative, no acute distre ss - EENT Eyes: Present: anicteric sclerae, EOMI, PERRLA, normal appearance ENT: Present: hearing grossly normal, normal oropharynx Ears: bilateral: normal - Neck Neck: Present: normal ROM. Absent: lymphadenopathy, rigidity, thyromegaly Carotids: negative: bruit present Thyroid: bilateral: normal size, negative: enlarged, nodule - Respiratory Respiratory: bilateral: CTA, negative: rales, rhonchi, wheezing - Cardiovascular Rhythm: regular Heart sounds: normal: S1, S2 Abnormal Heart Sounds: Absent: systolic murmur, diastolic murmur - Gastrointestinal General gastrointestinal: Present: normal bowel sounds, soft. Absent: distended, organomegaly, tenderness - Genitourinary Genitourinary Comment(s): deferred - Integumentary Integumentary: Present: normal turgor. Absent: jaundiced, rash, ulcer - Neurologic Neurologic: Present: CNII-XII intact. Absent: focal deficits - Musculoskeletal Musculoskeletal: Present: gait normal, strength equal bilaterally - Psychiatric Psychiatric: Present: A&O x's 3, appropriate affect, intact judgment & insight - Labs CBC & Chem 7: 02/15/20 11:17 02/15/20 11:17 Labs: Abnormal Lab Results - Last 24 Hours (Table) 02/12/20 02/12/20 02/12/20 Range/Units 08:56 11:14 20:30 RBC (3.80-5.40) m/uL Hgb (11.4-16.0) gm/dL Hct (34.0-46.0) % RDW (11.5-15.5) % Lymphocytes # (Manual) (1.0-4.8) k/uL Metamyelocytes # (Man) (0) k/uL Myelocytes # (Manual) (0) k/uL ABG pCO2 (35-45) mmHg ABG pO2 (83-108) mmHg ABG O2 Saturation (94-97) % Chloride (98-107) mmol/L BUN (7-17) mg/dL Creatinine (0.52-1.04) mg/dL POC Glucose (mg/dL) 106 H 108 H 150 H (75-99) mg/dL Calcium (8.4-10.2) mg/dL Troponin I (0.000-0.034) ng/mL 02/13/20 02/13/20 02/13/20 Range/Units 06:56 11:29 16:19 RBC (3.80-5.40) m/uL Hgb (11.4-16.0) gm/dL Hct (34.0-46.0) % RDW (11.5-15.5) % Lymphocytes # (Manual) (1.0-4.8) k/uL Metamyelocytes # (Man) (0) k/uL Myelocytes # (Manual) (0) k/uL ABG pCO2 (35-45) mmHg ABG pO2 (83-108) mmHg ABG O2 Saturation (94-97) % Chloride (98-107) mmol/L BUN (7-17) mg/dL Creatinine (0.52-1.04) mg/dL POC Glucose (mg/dL) 120 H 131 H 130 H (75-99) mg/dL Calcium (8.4-10.2) mg/dL Troponin I (0.000-0.034) ng/mL 02/13/20 02/14/20 02/14/20 Range/Units 20:13 07:05 11:47 RBC (3.80-5.40) m/uL Hgb (11.4-16.0) gm/dL Hct (34.0-46.0) % RDW (11.5-15.5) % Lymphocytes # (Manual) (1.0-4.8) k/uL Metamyelocytes # (Man) (0) k/uL Myelocytes # (Manual) (0) k/uL ABG pCO2 (35-45) mmHg ABG pO2 (83-108) mmHg ABG O2 Saturation (94-97) % Chloride (98-107) mmol/L BUN (7-17) mg/dL Creatinine (0.52-1.04) mg/dL POC Glucose (mg/dL) 176 H 103 H 138 H (75-99) mg/dL Calcium (8.4-10.2) mg/dL Troponin I (0.000-0.034) ng/mL 02/14/20 02/14/20 02/15/20 Range/Units 16:58 20:45 06:59 RBC (3.80-5.40) m/uL Hgb (11.4-16.0) gm/dL Hct (34.0-46.0) % RDW (11.5-15.5) % Lymphocytes # (Manual) (1.0-4.8) k/uL Metamyelocytes # (Man) (0) k/uL Myelocytes # (Manual) (0) k/uL ABG pCO2 (35-45) mmHg ABG pO2 (83-108) mmHg ABG O2 Saturation (94-97) % Chloride (98-107) mmol/L BUN (7-17) mg/dL Creatinine (0.52-1.04) mg/dL POC Glucose (mg/dL) 155 H 227 H 124 H (75-99) mg/dL Calcium (8.4-10.2) mg/dL Troponin I (0.000-0.034) ng/mL 02/15/20 02/15/20 02/15/20 Range/Units 11:13 11:17 11:17 RBC 2.52 L (3.80-5.40) m/uL Hgb 7.7 L (11.4-16.0) gm/dL Hct 24.3 L (34.0-46.0) % RDW 17.0 H (11.5-15.5) % Lymphocytes # (Manual) 0.45 L (1.0-4.8) k/uL Metamyelocytes # (Man) 0.27 H (0) k/uL Myelocytes # (Manual) 0.18 H (0) k/uL ABG pCO2 (35-45) mmHg ABG pO2 (83-108) mmHg ABG O2 Saturation (94-97) % Chloride 118 H (98-107) mmol/L BUN 67 H (7-17) mg/dL Creatinine 1.42 H (0.52-1.04) mg/dL POC Glucose (mg/dL) (75-99) mg/dL Calcium 7.2 L (8.4-10.2) mg/dL Troponin I 0.095 H* (0.000-0.034) ng/mL 02/15/20 Range/Units 14:27 RBC (3.80-5.40) m/uL Hgb (11.4-16.0) gm/dL Hct (34.0-46.0) % RDW (11.5-15.5) % Lymphocytes # (Manual) (1.0-4.8) k/uL Metamyelocytes # (Man) (0) k/uL Myelocytes # (Manual) (0) k/uL ABG pCO2 32 L (35-45) mmHg ABG pO2 73 L (83-108) mmHg ABG O2 Saturation 97.1 H (94-97) % Chloride (98-107) mmol/L BUN (7-17) mg/dL Creatinine (0.52-1.04) mg/dL POC Glucose (mg/dL) (75-99) mg/dL Calcium (8.4-10.2) mg/dL Troponin I (0.000-0.034) ng/mL Assessment and Plan Assessment: Normocytic normochromic anemia without any active GI bleed. Possible diverticular bleed. Hemoglobin is stable compared to last admission. Possible urinary tract infection. UA negative on admission here Hypernatremia due to dehydration and volume depletion Recent COVID-19 infection with hypoxic respiratory failure. On room air currently. Elevated troponin level likely due to recent COVID-19 and was seen by cardiology recently. Elevated BNP level without evidence of acute CHF. Acute kidney injury secondary infection. Improving Hypernatremia due to dehydration and volume depletion improved now Hypertension Hyperlipidemia Metabolic and toxic encephalopathy due to infection GI prophylaxis with PPI and DVT prophylaxis with SCDs Plan: Patient will be continued gentle IV hydration and monitor H&H.
[2020-02-16 09:24] LABS: African American GFR (CKD) 40 (>60 ml/min/1.73 sqM); Anion Gap 6 mmol/L; Blood Urea Nitrogen 68 mg/dL (7-17); Calcium 7.6 mg/dL (8.4-10.2); Carbon Dioxide 22 mmol/L (22-30); Chloride 113 mmol/L (98-107); Glucose 139 mg/dL (74-99); Non-African American GFR(CKD) 35 (>60 ml/min/1.73 sqM); Potassium 4.4 mmol/L (3.5-5.1); Sodium 141 mmol/L (137-145)
[2020-02-16 10:01] LABS: Anisocytosis Slight; HCT 24.2 % (34.0-46.0); HGB 7.7 gm/dL (11.4-16.0); Hypochromasia Moderate; MCH 30.6 pg (25.0-35.0); MCHC 31.7 g/dL (31.0-37.0); MCV 96.5 fL (80.0-100.0); Macrocytosis Slight; Mean Platelet Volume 8.6; Platelet Count 238 k/uL (150-450); RBC 2.51 m/uL (3.80-5.40); RDW 16.4 % (11.5-15.5); WBC 13.1 k/uL (3.8-10.6)
[2020-02-16 11:00] LABS: Band Neutrophils % 2 %; Lymphocytes # (M) 0.39 k/uL (1.0-4.8); Metamyelocytes # (M) 0.13 k/uL (0); Metamyelocytes % 1 %; Monocytes # (M) 0.52 k/uL (0-1.0); Myelocytes # (M) 0.13 k/uL (0); Myelocytes % 1 %; Neutrophils % (M) 90 %; Nucleated Red Blood Cells 0 /100 WBC (0-0); Total Cells Counted 200
[2020-02-16 11:31] LABS: Glucose,Whole Blood 140 mg/dL (75-99)
--- NOTE | 2020-02-16 14:03 | P.PN ---
Progress Note - Text Progress Note Date: 02/16/20 The patient appears stable. She's had no significant GI bleed. We will stable 7.7. On exam vital signs are stable. Abdomen soft. Probable diverticular bleed. Patient will be observed.
[2020-02-16 16:43] LABS: Glucose,Whole Blood 167 mg/dL (75-99)
[2020-02-16 20:14] LABS: Glucose,Whole Blood 132 mg/dL (75-99)
[2020-02-16] MEDS: INSULIN DETEMIR (LEVEMIR) 100 UNIT/ML SYR SQ SCH (20:26)
[2020-02-17] MEDS: SODIUM CHLORIDE 0.9% 1,000 ML IV SCH (06:22)
[2020-02-17 06:55] LABS: Anisocytosis Slight; HGB 8.5 gm/dL (11.4-16.0); Hypochromasia Marked; MCH 30.5 pg (25.0-35.0); MCHC 31.4 g/dL (31.0-37.0); MCV 97.3 fL (80.0-100.0); Macrocytosis Slight; Mean Platelet Volume 8.3; Platelet Count 268 k/uL (150-450); Poikilocytosis Slight; RBC 2.77 m/uL (3.80-5.40); RDW 16.4 % (11.5-15.5); WBC 12.8 k/uL (3.8-10.6)
[2020-02-17 07:07] LABS: Glucose,Whole Blood 103 mg/dL (75-99)
[2020-02-17] MEDS: PANTOPRAZOLE 40 MG TABLET PO SCH (07:59)
[2020-02-17] MEDS: ZINC SULFATE 220 MG CAP PO SCH (07:59)
[2020-02-17] MEDS: CHOLECALCIFEROL 1,000 UNIT TAB PO SCH (07:59)
[2020-02-17] MEDS: ASCORBIC ACID 500 MG TAB PO SCH ×2 (07:59→20:48)
[2020-02-17 11:24] LABS: Glucose,Whole Blood 93 mg/dL (75-99)
[2020-02-17 11:29] LABS: African American GFR (CKD) 38.5 (60.0-200.0); Anion Gap 8.2 mmol/L (4.00-12.00); BUN/Creat Ratio 46.67 Ratio (12.00-20.00); Calcium 7.5 mg/dL (8.7-10.3); Carbon Dioxide 22.8 mmol/L (21.6-31.8); Non-African American GFR(CKD) 33.3 (60.0-200.0); Potassium 4.2 mmol/L (3.5-5.5)
[2020-02-17 11:56] LABS: Band Neutrophils % 5 %; Eosinophils # (M) 0.26 k/uL (0-0.7); Lymphocytes # (M) 0.38 k/uL (1.0-4.8); Monocytes # (M) 0.38 k/uL (0-1.0); Neutrophils % (M) 87 %; Nucleated Red Blood Cells 0 /100 WBC (0-0); Total Cells Counted 100
[2020-02-17 11:57] LABS: Toxic Granulation Present
[2020-02-17] MEDS: FUROSEMIDE 10 MG/ML 4 ML VIAL IV SCH (12:10)
--- NOTE | 2020-02-17 12:59 | P.PN ---
Progress Note - Text Progress Note Date: 02/17/20 Patient range stable. She has no further evidence of GI bleed. Hernia was a 0.5. On exam her vital signs are stable. Abdomen was soft. Presumed diverticular bleed. Patient has had no further evidence of bleeding. She'll be observed.
--- NOTE | 2020-02-17 13:00 | P.PN ---
Progress Note - Text Progress Note Date: 02/17/20 Patient remains stable. She is being transferred to [facility] today. On exam her bowel wound appears to have some minimal purulent fluid. Patient will resume local wound care. She'll follow up with myself next week.
--- NOTE | 2020-02-17 13:02 | P.PN ---
Progress Note - Text Progress Note Date: 02/17/20 Patient remains stable. She is being transferred to [facility] today. On exam her bowel wound appears to have some minimal purulent fluid. Patient will resume local wound care. She'll follow up with myself next week.
--- NOTE | 2020-02-17 13:29 | XR ---
EXAMINATION TYPE: XR chest 1V portable DATE OF EXAM: 02/17/2020 COMPARISON: 02/15/2020 INDICATION: Short of breath TECHNIQUE: Single frontal view of the chest is obtained. FINDINGS: The heart size is upper limits of normal. The pulmonary vasculature is upper limits of normal. Mild diffuse increased lung markings slightly greater in the left. Findings are nonspecific. Correlat e for early congestive heart failure. Advanced degenerative changes are at the left shoulder and likely at the right shoulder. IMPRESSION: 1. Clinical correlation recommended for early congestive heart failure.
[2020-02-17 13:33] VITALS: BMI 35.9
[2020-02-17] MEDS: ALBUTEROL NEBULIZED 2.5 MG/3 ML INHALATION PRN ×2 (16:09→20:15)
--- NOTE | 2020-02-17 16:11 | PN ---
PROGRESS NOTE DATE OF SERVICE: 02/17/2020 This 75-year-old woman who was admitted with acute GI bleed with acute blood loss anemia. The patient has some shortness of breath. The patient has received some Lasix 2 days ago according to the staff. The most recent chest x-ray was ordered today and reviewed personally by me showed some evidence of CHF. The creatinine is normal to 1.5. However, the patient is getting IV fluids at 50 mL/hour. PAST MEDICAL HISTORY: Reviewed. REVIEW OF SYSTEMS: Review of system could not be taken the patient is slightly confused. CURRENT MEDICATIONS: Current medications are reviewed and include: Tylenol, Ventolin, vitamin C, vitamin D3, Lasix 40 mg IV started today, Levemir, Imodium, Narcan, Protonix. PHYSICAL EXAMINATION: Patient is alert and oriented x1. Pulse is 100, blood pressure 143/62, respiration 19, temperature 97.4, pulse ox 96% on room air. HEENT: Conjunctivae normal. NECK: No jugular venous distention. CARDIOVASCULAR: S1, S2 muffled. RESPIRATORY: Breath sounds diminished at the bases. Bilateral scattered rhonchi and crackles. ABDOMEN: Soft, obese, nontender. LEGS: No edema. NERVOUS SYSTEM: No focal deficits. LABS: WBC 12.8, hemoglobin is 8.5. Sodium 145, potassium 4.2. ASSESSMENT: 1. Acute gastrointestinal bleed with possible diverticular bleed with acute blood loss anemia. 2. Possible congestive heart failure acute exacerbation with acute on chronic diastolic dysfunction. 3. Change in mental status, metabolic encephalopathy, acute on chronic. 4. Recent COVID-19 infection, acute hypoxic respiratory failure. 5. Elevated troponin without any evidence of acute myocardial infarction seen by Cardiology recently. 6. History of hypertension. 7. Hyperlipidemia. 8. History of chronic kidney disease. 9. History of ARDS. 10.History of PEG tube. 11.Obesity with body mass of 35.9. 12.FULL CODE. RECOMMENDATIONS AND DISCUSSION: This 75-year-old woman was admitted with multiple complex medical issues. At this time, I recommend continue the current medications and symptomatic treatment. chest x- ray. Stop the IV fluids. Repeat labs. IV Lasix. PT, OT evaluation, possible ECF rehab. Guarded prognosis because of multiple complex medical issues. Further recommendations to follow. MMODL / IJN: [id number] / [facility]
[2020-02-17 16:35] LABS: Glucose,Whole Blood 141 mg/dL (75-99)
[2020-02-17] MEDS: ACETAMINOPHEN TAB 325 MG TAB PO PRN (17:14)
[2020-02-17] MEDS: LOPERAMIDE 2 MG CAP PO PRN (17:14)
--- NOTE | 2020-02-17 20:08 | CONS ---
CONSULTATION REASON FOR CONSULT: Renal failure and volume overload. HISTORY OF PRESENT ILLNESS: Patient is a 75-year-old female who has a previous history of COVID pneumonia. The patient was admitted to the hospital on 02/05 with complaints of weakness, fatigue. She initially presented hospital in the [facility] region and was transferred down to [facility]. The patient was found to be significantly hypernatremic on initial admission. Her sodium, however, has been stable at 141 to 145 mEq/L recently. She was also noted to have GI bleed and had been maintained on IV fluids. No active bleeding noted currently. The IV fluids were discontinued, as patient was found to have increasing edema in upper and lower extremities. Her serum creatinine has been at about 1.2 to 1.4 mg/dL. Today it is up to 1.5. Patient's blood pressure has been 130 to 120 mmHg systolic. Initial blood pressure was low, in the 70s in 80s range, on 02/10/2020 on initial admission. The patient is currently maintained on Lasix 40 mg IV daily, which was started today, and her fluids were discontinued. I do not see any IV contrast administration for a CT scan on this admission. We were following the patient previously on her admission mostly for hypernatremia. No active GI bleeding noted currently, and patient is not hypotensive. PAST MEDICAL HISTORY: Significant for recent COVID-19 pneumonia about 6 weeks ago, history of hyperlipidemia, hypertension, CKD, history of hypernatremia, CKD stage III, previous creatinine 1.2 to 1.4 mg/dL. SOCIAL HISTORY: Negative for smoking, drug abuse or alcohol abuse. MEDICATIONS: Medications prior to admission included albuterol, vitamin C, vitamin D3, aspirin, insulin, zinc, heparin, Lopressor. ALLERGIES: NONE. PHYSICAL EXAMINATION: Patient is comfortable, awake. She does not communicate much. Blood pressure was 143/62, heart rate 100 per minute. Patient is afebrile. Oxygen saturation is 96% on room air. EXAMINATION OF THE HEART: S1 and S2. EXAMINATION OF LUNGS: Decreased breath sounds at bases. ABDOMEN: Soft. Examination of lower extremities shows edema of 2 to 3+ bilaterally, upper and lower extremities. 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 LABS: Labs show hemoglobin 8.5 g/dL, white cell count 12.8, platelet count 268,000, sodium 145, potassium 4.2, chloride 114, BUN 70, serum creatinine 1.5, glucose of 74, calcium 7.5. ASSESSMENT: 1. Acute kidney injury, multifactorial, including possible acute tubular necrosis. However, patient is currently nonoliguric. She is not on any nephrotoxic medications. Renal function has been fluctuating with volume status. Currently patient is volume-overloaded. Agree with discontinuation of saline and will continue with the current dose of IV Lasix. There are no nephrotoxic agents on board and patient is not hypotensive. We will monitor the serum sodium level closely. 2. Hypernatremia, improved, with serum sodium currently staying at about 141 to 145. This may get worse with ongoing diuresis. 3. Gastrointestinal bleed. No active bleeding noted currently. Hemoglobin is stable. Patient is maintained on proton pump inhibitors. No plans for intervention at this point. 4. Chronic kidney disease, stage 3. Baseline creatinine 1.2 to 1.4 mg/dL secondary to nephrosclerosis. UA on 02/06/2020 was completely clear with no evidence of blood or protein. PLAN: Continue off of IV fluids. Continue with IV Lasix daily. Encourage increased oral intake, particularly protein. Monitor sodium closely. Avoid nephrotoxic agents. Check iron profile. Her last iron saturation was 50% on 01/22/2020. Therefore I doubt it is significantly worse at this point. I will add Aranesp to help with the anemia. Once her nutritional status improves and anemia has improved, the edema should improve as well. Thank you for this consultation. Will continue to follow the patient with you during her hospitalization. MMODL / IJN: [id number] /
[2020-02-17 20:41] LABS: Glucose,Whole Blood 167 mg/dL (75-99)
[2020-02-17] MEDS: INSULIN DETEMIR (LEVEMIR) 100 UNIT/ML SYR SQ SCH (20:48)
[2020-02-18 07:01] LABS: Glucose,Whole Blood 59 mg/dL (75-99)
[2020-02-18] MEDS ORDERED: DEXTROSE 50% SYRINGE 50 ML IVP ONE (07:08)
[2020-02-18 07:23] LABS: Glucose,Whole Blood 262 mg/dL (75-99)
[2020-02-18 07:23] LABS: Glucose,Whole Blood 186 mg/dL (75-99)
[2020-02-18] MEDS: ZINC SULFATE 220 MG CAP PO SCH (08:26)
[2020-02-18] MEDS: FUROSEMIDE 10 MG/ML 4 ML VIAL IV SCH ×2 (08:26→22:13)
[2020-02-18] MEDS: CHOLECALCIFEROL 1,000 UNIT TAB PO SCH (08:26)
[2020-02-18] MEDS: MULTIVITAMINS, THERA 1 EACH TAB PO SCH (08:26)
[2020-02-18] MEDS: FOLIC ACID 1 MG TAB PO SCH (08:26)
[2020-02-18] MEDS: ASCORBIC ACID 500 MG TAB PO SCH ×2 (08:26→22:14)
[2020-02-18] MEDS: PANTOPRAZOLE 40 MG TABLET PO SCH (08:26)
[2020-02-18] MEDS: THIAMINE 100 MG TAB PO SCH (08:27)
[2020-02-18 11:35] LABS: Glucose,Whole Blood 245 mg/dL (75-99)
--- NOTE | 2020-02-18 13:22 | P.CRDCN ---
History of Present Illness Consult date: 02/18/20 History of present illness: CHIEF COMPLAINT: Abnormal troponins HISTORY OF PRESENT ILLNESS: This is a 75 year old female with a past medical history significant for hypertension, hyperlipidemia, chronic kidney disease, and PEG tube placement. 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 We have been asked to see the patient in consultation for abnormal troponins. Patient is admitted to the hospital secondary to acute GI bleed, suspected diverticular bleed, and acute blood loss anemia. Patient had troponins drawn which were resulted at 0.20, 0.09, and 0.08. Patient denies any chest pain or pressure. She denies feeling short of breath, although she does appear to have tachypnea with shallow respirations. She denies dizziness or lightheadedness. DIAGNOSTICS: EKG reveals sinus rhythm with no signs of acute ischemia Chest xray clinical correlation recommended for early congestive heart failure Laboratory data: WBC 12.8. Hemoglobin 8.5. Platelet count 268. Sodium 145. Potassium 4.2. BUN 70. Creatinine 1.5. BNP 10,200. Current home cardiac medications include metoprolol 50 mg twice a day, aspirin 81 mg daily Echo cardiogram completed in December 2019 revealed ejection fraction 55-60%, trace aortic regurgitation, trace mitral regurgitation, and trace tricuspid regurgitation. REVIEW OF SYSTEMS: At the time of my exam: CONSTITUTIONAL: Denies fever or chills. HEENT: Denies blurred vision, vision changes, or eye pain. Denies hemoptysis CARDIOVASCULAR: Denies chest pain, orthopnea, PND or palpitations RESPIRATORY: No shortness of breath. GASTROINTESTINAL: Denies abdominal pain. Denies nausea or vomiting. HEMATOLOGIC: Denies bleeding disorders. GENITOURINARY: Denies any blood in urine. SKIN: Denies pruitis. Denies rash. PHYSICAL EXAM: VITAL SIGNS: Reviewed. GENERAL: Well-developed in no acute distress. HEENT: Head is normocephalic. Pupils are equal, round. Sclerae anicteric. Mucous membranes of the mouth are moist. Neck supple. No JVD or thyromegaly LUNGS: Respirations even but shallow. Tachypnea. Lungs diminished with scattered rhonchi. HEART: Regular rate and rhythm. S1 and S2 heard. ABDOMEN: Soft. Nondistended. Nontender. EXTREMITIES: Normal range of motion. No clubbing or cyanosis. Peripheral pulses intact. Patient with generalized anasarca. NEUROLOGIC: Lethargic. ASSESSMENT: Acute GI bleed, suspected diverticular in etiology Acute blood loss anemia Acute kidney injury Acute diastolic heart failure, EF 55-60% Hypoproteinemia Generalized anasarca Abnormal troponins, no evidence of acute coronary syndrome PLAN: An acute coronary event has been ruled out. No need to repeat echocardiogram as this was performed in December 2019 Resume home dose of metoprolol 50 mg twice a day Resume daily aspirin if okay with GI service and surgical team Generalized anasarca likely from hypoproteinemia Continue IV lasix Nephrology following We will follow on an as-needed basis. Please call with questions or concerns. Nurse practitioner note has been reviewed by physician. Signing provider agrees with the documented findings, assessment, and plan of care. Past Medical History Past Medical History: Hyperlipidemia, Hypertension, Renal Disease Additional Past Medical History / Comment(s): Covid, Anemia ; Chronic kidney disease; ARDS History of Any Multi-Drug Resistant Organisms: None Reported Past Surgical History: Orthopedic Surgery Additional Past Surgical History / Comment(s): Peg tube Past Psychological History: No Psychological Hx Reported Smoking Status: Never smoker Past Alcohol Use History: None Reported Past Drug Use History: None Reported - Past Family History Father Family Medical History: Pulmonary Embolus Additional Family Medical History / Comment(s): Mother History Unknown: Yes Additional Family Medical History / Comment(s): " from old age" age 93 Daughter(s) Family Medical History: Hypertension Medications and Allergies Home Medications Medication Instructions Recorded Confirmed Type Albuterol Sulfate [Proventil Hfa] 1 puff INHALATION RT-Q6H PRN 01/05/20 02/06/20 History Ascorbic Acid [Vitamin C] 500 mg PO BID tab 01/29/20 02/06/20 Rx Aspirin 81 mg PO DAILY chew 01/29/20 02/06/20 Rx Cholecalciferol [Vitamin D3 (25 5,000 unit PO DAILY tab 01/29/20 02/06/20 Rx Mcg = 1000 Iu)] Insulin Detemir (Levemir) [Levemir] 10 unit SQ HS syr 01/29/20 02/06/20 Rx Zinc Sulfate [Orazinc] 220 mg PO DAILY cap 01/29/20 02/06/20 Rx Acetaminophen Tab [Tylenol] 650 mg PO Q6HR PRN 02/06/20 02/06/20 History Glucerna 1.2 Oren 240 ml PO QID@03,09,15,21 02/06/20 02/06/20 History Heparin Sodium,Porcine [Heparin 5,000 unit SQ BID@0800,2000 02/06/20 02/06/20 History Sodium] INSULIN ASPART (NovoLOG) [NovoLOG See Protocol SQ ACHS 02/06/20 02/06/20 History (formulary)] Loperamide [Imodium] 2 - 4 mg PO Q3H PRN 02/06/20 02/06/20 History Metoprolol Tartrate [Lopressor] 50 mg PO BID@0800,1600 02/06/20 02/06/20 History Pantoprazole [Protonix] 40 mg PO AC-BRKFST #30 tablet. 02/09/20 Rx Allergies Allergy/AdvReac Type Severity Reaction Status Date / Time No Known Allergies Allergy Verified 02/06/20 18:17 Physical Exam Vitals: Vital Signs Temp Pulse Pulse Resp BP Pulse Ox 02/18/20 07:32 98.7 F 94 18 137/82 95 02/18/20 07:18 28 H 95 02/18/20 02:35 97.9 F 90 19 116/73 97 02/17/20 20:15 96 02/17/20 20:00 98.6 F 98 18 125/79 96 02/17/20 19:31 17 02/17/20 16:18 96 02/17/20 16:09 92 02/17/20 14:00 99.0 F 98 21 138/82 96 Intake and Output 02/17/20 02/18/20 02/18/20 22:59 06:59 14:59 Intake Total 230 Output Total 1100 1100 800 Balance -1100 -1100 -570 Intake: Tube Feeding 200 Other 30 Output: Urine 1100 1100 800 Other: Voiding Method Indwelling Catheter # Bowel Movements 1 Results 02/17/20 06:12 02/17/20 06:12 Current Medications Generic Name Dose Route Start Last Admin Trade Name Freq PRN Reason Stop Dose Admin Acetaminophen 650 mg 02/07/20 12:55 02/17/20 17:14 Acetaminophen Tab 325 Mg Tab PO 650 mg Q6HR PRN Administration Fever Albuterol Sulfate 2.5 mg 02/07/20 12:55 02/17/20 20:15 Albuterol Nebulized 2.5 Mg/3 Ml INHALATION 2.5 mg RT-Q6H PRN Administration Wheezing Ascorbic Acid 500 mg 02/07/20 21:00 02/18/20 08:26 Ascorbic Acid 500 Mg Tab PO 500 mg BID ANDREA Administration Cholecalciferol 5,000 unit 02/08/20 09:00 02/18/20 08:26 Cholecalciferol 1,000 Unit Tab PO 5,000 unit DAILY ANDREA Administration Folic Acid 1 mg 02/18/20 12:00 02/18/20 08:26 Folic Acid 1 Mg Tab PO 1 mg DAILY@1200 ANDREA Administration Furosemide 40 mg 02/17/20 12:00 02/18/20 08:26 Furosemide 10 Mg/Ml 4 Ml Vial IV 40 mg DAILY ANDREA Administration Insulin Detemir 10 unit 02/07/20 21:00 02/17/20 20:48 Insulin Detemir (Levemir) 100 Unit/Ml Syr SQ 10 unit HS ANDREA Administration Loperamide HCl 2 mg 02/07/20 12:55 02/17/20 17:14 Loperamide 2 Mg Cap PO 2 mg Q3H PRN Administration Diarrhea Multivitamins 1 each 02/18/20 12:00 02/18/20 08:26 Multivitamins, Thera 1 Each Tab PO 1 each DAILY@1200 ANDREA Administration Naloxone HCl 0.2 mg 02/06/20 19:21 Naloxone 0.4 Mg/Ml 1 Ml Vial IV Q2M PRN Opioid Reversal Pantoprazole Sodium 40 mg 02/07/20 13:00 02/18/20 08:26 Pantoprazole 40 Mg Tablet PO 40 mg AC-BRKFST ANDREA Administration Thiamine HCl 100 mg 02/18/20 12:00 02/18/20 08:27 Thiamine 100 Mg Tab PO 100 mg DAILY@1200 ANDREA Administration Zinc Sulfate 220 mg 02/08/20 09:00 02/18/20 08:26 Zinc Sulfate 220 Mg Cap PO 220 mg DAILY ANDREA Administration Intake and Output 02/17/20 02/18/20 02/18/20 22:59 06:59 14:59 Intake Total 230 Output Total 1100 1100 800 Balance -1100 -1100 -570 Intake: Tube Feeding 200 Other 30 Output: Urine 1100 1100 800 Other: Voiding Method Indwelling Catheter # Bowel Movements 1 02/17/20 06:12 02/17/20 06:12
--- NOTE | 2020-02-18 14:03 | PN ---
PROGRESS NOTE The patient is seen for followup for chronic kidney disease, volume overload, acute kidney injury. The patient has not been eating much. She is maintained on IV Lasix. Serum creatinine is at about 1.5 from 1.4 yesterday. The patient remains with significant edema. She was coughing a lot while being fed and therefore she is currently n.p.o. PHYSICAL EXAMINATION: On examination today, blood pressure was 137/82, heart rate 94 per minute. She is afebrile. EXAMINATION OF THE HEART: S1, S2. EXAMINATION OF LUNGS: Decreased breath sounds at bases. Abdomen is soft, nontender, obese. Examination of lower extremities shows edema 2 to 3+ bilaterally upper and lower extremities. CANE WEIGHER exam cannot be assessed in detail. Patient does not communicate much. LABS: Labs show from yesterday sodium 145, serum creatinine 1.5. No labs available from today. ASSESSMENT: 1. Acute kidney injury. Serum creatinine fluctuating between 1.5 to 1.4 mg/dL. The patient is volume overloaded. I will continue with the Lasix in fact we can increase the Lasix to twice a day given the significant third spacing and edema. 2. Hypernatremia, now improved. Monitor the serum sodium closely with ongoing diuresis. 3. Chronic kidney disease stage 3. Baseline creatinine 1.2-1.4 secondary to nephrosclerosis. UA was completely clear on 02/06/2020 with no evidence of blood or protein. 4. Gastrointestinal bleed. No active bleeding noted. Currently hemoglobin is stable. Patient is maintained on proton pump inhibitors. No plans for intervention. No evidence of iron deficiency. PLAN: Increase Lasix to b.i.d. Repeat labs today and then again in a.m. Consider tube feedings if patient remains FULL CODE. MMODL / IJN: [id number] /
--- NOTE | 2020-02-18 14:13 | CT ---
EXAMINATION TYPE: CT brain wo con DATE OF EXAM: 02/18/2020 COMPARISON: 01/12/2020 INDICATION: AMS DLP: 1076.4 mGycm, Automated exposure control for dose reduction was used. CONTRAST: None CT of the brain is performed utilizing 3 mm thick sections through the posterior fossa and 3 mm thick sections through the remaining calvarium. Study is performed within 24 hours of arrival to the hosp [facility]. No abnormal hyperdensity is present to suggest an acute intracranial hemorrhage. No mass lesion is evident. No acute infarcts are evident. Very minimal periventricular white matter hypodensity may be near the anterior horns of lateral ventricles suggesting some mild chronic white matter ischemic change. Ventricles and sulci are slightly prominent for the patient age. Paranasal sinuses and mastoid air cells within the [id number] are clear. IMPRESSIONS: 1. Mild age-related atrophy with minimal chronic appearing periventricular white matter ischemic ch anges.
[2020-02-18 16:32] LABS: Glucose,Whole Blood 127 mg/dL (75-99)
--- NOTE | 2020-02-18 18:50 | PN ---
PROGRESS NOTE DATE OF SERVICE: 02/18/2020 This 75-year-old woman who was admitted with acute GI bleed was thought to have diverticular bleed. The patient is being medically managed at this time. The troponins are indeterminate at 0.0095 and hemoglobin was 8.5. Today's hemoglobin is not available. The patient continues to be confused. The patient has shortness of breath but started on IV Lasix on a daily basis. Past medical history reviewed. REVIEW OF SYSTEMS: CARDIOVASCULAR SYSTEM: No angina, palpitations. RESPIRATORY SYSTEM: As mentioned earlier. GI: As mentioned earlier. : No dysuria or retention. NERVOUS SYSTEM: No numbness, weakness. CURRENT MEDICATIONS: Reviewed. They include Tylenol, Ventolin, vitamin C, Lasix, Imodium, Narcan. PHYSICAL EXAMINATION: Patient is mildly confused. Pulse is 94, blood pressure 133/58, respiration 22, temperature 97.6, pulse ox 97% on room air. HEENT: Conjunctivae normal. NECK: No jugular venous distention. CARDIOVASCULAR SYSTEM: S1, S2 muffled. RESPIRATORY SYSTEM: Breath sounds diminished at the bases. A few scattered rhonchi and crackles. ABDOMEN: Soft, non-tender. LEGS: No edema. No swelling. NERVOUS SYSTEM: No focal deficit. LABS: WBC 12.8, hemoglobin 8.5. Sodium 145, potassium 4.2. ASSESSMENT: 1. Acute gastrointestinal bleed with possible diverticular bleed and acute blood-loss anemia. 2. Congestive heart failure, acute exacerbation, acute on chronic diastolic dysfunction. 3. Change in mental status, acute metabolic encephalopathy, acute on chronic. 4. Recent COVID-19 infection with acute hypoxic respiratory failure. 5. Elevated troponin without any evidence of acute myocardial infarction. Seen by Cardiology. Possible indeterminate origin. 6. History of hypertension. 7. Hyperlipidemia. 8. History of chronic kidney disease. 9. History of acute respiratory distress syndrome. 10.History of PEG tube. 11.Obesity with body mass index of 35.9. 12.FULL CODE. RECOMMENDATIONS AND DISCUSSION: I recommend to continue current medications, continue with the monitoring, symptomatic treatment. Otherwise, we will monitor the creatinine very closely. Prognosis guarded because of multiple complex medical issues. Further recommendations to follow. MMODL / IJN: [id number] /
--- NOTE | 2020-02-18 18:58 | P.PN ---
Subjective Progress Note Date: 02/18/20 Principal diagnosis: GI bleed Patient doing well today. Appears quite fatigued. Had a bowel movement earlier today that was nonbloody. Tolerating diet. Objective - Vital Signs Vital signs: Vital Signs Temp 97.6 F 02/18/20 14:00 Pulse 94 02/18/20 14:00 Resp 22 02/18/20 14:00 BP 135/58 02/18/20 14:00 Pulse Ox 97 02/18/20 14:00 Intake & Output 02/17/20 02/18/20 02/18/20 18:59 06:59 18:59 Intake Total 690 Output Total 450 2200 1200 Balance -450 -2200 -510 Weight 92 kg Intake: Tube Feeding 600 Other 90 Output: Urine 450 2200 1200 Other: Voiding Method Indwelling Catheter Indwelling Catheter Indwelling Catheter # Bowel Movements 1 1 - Exam Abdomen: Soft, nontender, nondistended - Labs CBC & Chem 7: 02/17/20 06:12 02/17/20 06:12 Labs: Abnormal Lab Results - Last 24 Hours (Table) 02/17/20 02/18/20 02/18/20 Range/Units 20:40 06:59 07:18 POC Glucose (mg/dL) 167 H 59 L 262 H (75-99) mg/dL 02/18/20 02/18/20 02/18/20 Range/Units 07:21 11:27 16:30 POC Glucose (mg/dL) 186 H 245 H 127 H (75-99) mg/dL Assessment and Plan (1) GI bleed Narrative/Plan: 75-year-old female with GI bleed likely related to diverticulosis. Continue diet. Monitor hemoglobin. Monitor stools. Recheck CBC tomorrow. Current Visit: Yes Status: Acute Code(s): K92.2 - GASTROINTESTINAL HEMORRHAGE, UNSPECIFIED SNOMED Code(s): 41066480
[2020-02-18] MEDS: INSULIN DETEMIR (LEVEMIR) 100 UNIT/ML SYR SQ SCH (22:10)
[2020-02-18 22:11] LABS: Glucose,Whole Blood 140 mg/dL (75-99)
[2020-02-18] MEDS: METOPROLOL TARTRATE 50 MG TAB PO SCH (22:13)
[2020-02-19 02:27] LABS: Glucose,Whole Blood 190 mg/dL (75-99)
[2020-02-19 06:49] LABS: Anisocytosis Slight; HCT 26.9 % (34.0-46.0); HGB 8.4 gm/dL (11.4-16.0); Hypochromasia Moderate; MCH 29.8 pg (25.0-35.0); MCHC 31.1 g/dL (31.0-37.0); MCV 96.1 fL (80.0-100.0); Macrocytosis Slight; Mean Platelet Volume 8.5; Platelet Count 323 k/uL (150-450); Poikilocytosis Slight; RDW 16.6 % (11.5-15.5); WBC 13.5 k/uL (3.8-10.6)
[2020-02-19 06:55] LABS: Glucose,Whole Blood 181 mg/dL (75-99)
[2020-02-19 07:41] LABS: Basophils # (M) 0.14 k/uL (0-0.2); Metamyelocytes # (M) 0.14 k/uL (0); Metamyelocytes % 1 %; Myelocytes # (M) 0.41 k/uL (0); Myelocytes % 3 %; Neutrophils % (M) 86 %; Nucleated Red Blood Cells 0 /100 WBC (0-0)
[2020-02-19 07:42] LABS: Band Neutrophils % 4 %; Eosinophils # (M) 0.14 k/uL (0-0.7); Lymphocytes # (M) 0.41 k/uL (1.0-4.8); Monocytes # (M) 0.54 k/uL (0-1.0); Total Cells Counted 200
[2020-02-19 07:43] VITALS: PULSE 84
[2020-02-19 07:43] LABS: Toxic Granulation Present
[2020-02-19] MEDS: ACETAMINOPHEN TAB 325 MG TAB PO PRN (08:03)
[2020-02-19] MEDS: ASCORBIC ACID 500 MG TAB PO SCH (08:03)
[2020-02-19] MEDS: CHOLECALCIFEROL 1,000 UNIT TAB PO SCH (08:03)
[2020-02-19] MEDS: PANTOPRAZOLE 40 MG TABLET PO SCH (08:04)
[2020-02-19] MEDS: METOPROLOL TARTRATE 50 MG TAB PO SCH (08:04)
[2020-02-19] MEDS: FOLIC ACID 1 MG TAB PO SCH (08:04)
[2020-02-19] MEDS: MULTIVITAMINS, THERA 1 EACH TAB PO SCH (08:04)
[2020-02-19] MEDS: ZINC SULFATE 220 MG CAP PO SCH (08:04)
[2020-02-19] MEDS: FUROSEMIDE 10 MG/ML 4 ML VIAL IV SCH (08:04)
[2020-02-19] MEDS: THIAMINE 100 MG TAB PO SCH (08:04)
--- NOTE | 2020-02-19 10:47 | P.PN ---
Subjective Progress Note Date: 02/19/20 Principal diagnosis: GI bleed Patient doing well today. No bleeding. T-max 99.4. Patient's white blood cell count 13.5, hemoglobin 8.4. Patient denies pain. Objective - Vital Signs Vital signs: Vital Signs Temp 99.4 F 02/19/20 07:07 Pulse 84 02/19/20 07:07 Resp 17 02/19/20 07:07 BP 133/78 02/19/20 07:07 Pulse Ox 97 02/19/20 07:07 Intake & Output 02/18/20 02/19/20 02/19/20 18:59 06:59 18:59 Intake Total 690 230 Output Total 1200 2225 - Intake: Tube Feeding 600 200 Other 90 30 Output: Urine 1200 2225 Other: Voiding Method Indwelling Catheter Indwelling Catheter Indwelling Catheter - Exam Abdomen: Soft, nontender, nondistended - Labs CBC & Chem 7: 02/19/20 06:26 02/17/20 06:12 Labs: Abnormal Lab Results - Last 24 Hours (Table) 02/18/20 02/18/20 02/18/20 Range/Units 11:27 16:30 22:09 WBC (3.8-10.6) k/uL RBC (3.80-5.40) m/uL Hgb (11.4-16.0) gm/dL Hct (34.0-46.0) % RDW (11.5-15.5) % Neutrophils # (Manual) (1.3-7.7) k/uL Lymphocytes # (Manual) (1.0-4.8) k/uL Metamyelocytes # (Man) (0) k/uL Myelocytes # (Manual) (0) k/uL POC Glucose (mg/dL) 245 H 127 H 140 H (75-99) mg/dL 02/19/20 02/19/20 02/19/20 Range/Units 02:25 06:26 06:49 WBC 13.5 H (3.8-10.6) k/uL RBC 2.80 L (3.80-5.40) m/uL Hgb 8.4 L (11.4-16.0) gm/dL Hct 26.9 L (34.0-46.0) % RDW 16.6 H (11.5-15.5) % Neutrophils # (Manual) 12.10 H (1.3-7.7) k/uL Lymphocytes # (Manual) 0.41 L (1.0-4.8) k/uL Metamyelocytes # (Man) 0.14 H (0) k/uL Myelocytes # (Manual) 0.41 H (0) k/uL POC Glucose (mg/dL) 190 H 181 H (75-99) mg/dL Assessment and Plan (1) GI bleed Narrative/Plan: Patient doing well at this time. We'll sign off. Stable for discharge from our point of view. Please call if recurrent bleeding noted. Current Visit: Yes Status: Acute Code(s): K92.2 - GASTROINTESTINAL HEMORRHAGE, UNSPECIFIED SNOMED Code(s): 75552996
[2020-02-19 11:05] LABS: African American GFR (CKD) 35.7 (60.0-200.0); BUN/Creat Ratio 45.63 Ratio (12.00-20.00); Calcium 7.5 mg/dL (8.7-10.3); Non-African American GFR(CKD) 30.8 (60.0-200.0); Potassium 4.1 mmol/L (3.5-5.5)
[2020-02-19 11:29] LABS: Glucose,Whole Blood 201 mg/dL (75-99)
--- NOTE | 2020-02-19 13:43 | P.DS ---
Providers Date of admission: 02/10/20 09:22 Expected date of discharge: 02/19/20 Attending physician: Lani Paez Consults: 02/07/20 09:54 Consult Physician Routine Consulting Provider: Aroldo Singer Consult Reason/Comments: GI bleed, PEG and colonoscopy on last admission Do you want consulting provider notified?: Yes 02/10/20 12:14 Consult Physician Routine Consulting Provider: Carlos Leon Consult Reason/Comments: active bleed icu management Do you want consulting provider notified?: Yes 02/16/20 15:51 Consult Physician Routine Consulting Provider: Kenton Quevedo Consult Reason/Comments: elevated trop Do you want consulting provider notified?: Yes 02/16/20 15:52 Consult Physician Routine Consulting Provider: Lior Nunez Consult Reason/Comments: worsening renal injury; anasarca Do you want consulting provider notified?: Yes Primary care physician: Physician Nonstaff Hospital Course: Final diagnosis Acute gastrointestinal bleed with possible diverticular bleed and acute blood loss anemia Congestive heart failure, acute exacerbation, acute on chronic diastolic dysfunction Change in mental status, acute metabolic encephalopathy, acute on chronic Recent Covid 19 infection with acute hypoxic respiratory failure Elevated troponin without any evidence of acute myocardial infarction. Seen by cardiology possible indeterminate origin History of hypertension History of hyperlipidemia History of chronic kidney disease History of acute respiratory distress syndrome History of PEG tube Obesity with a BMI of 35.9 Full code Discharge disposition Patient is being transferred in a stable condition with guarded prognosis to [facility] for continued PT/OT therapy. Patient will continue with Lasix 40 mg twice daily. Prescriptions provided for repeat labs to monitor kidney functions. Patient instructed to follow-up with nephrology in the outpatient setting in 1-2 weeks. Total time taken is greater than 35 minutes. Hospital course This is a 75-year-old female who was recently admitted with acute GI bleed and was thought to have diverticular bleed and was being closely monitored. Patient was seen and evaluated by surgery along with nephrology. During hospitalization patient received 2 units of PRBCs. Tagged RBC scan was negative. No further bleeding noted and patient is having bowel movements that are brown with no blood noted. Patient is currently maintained on tube feedings and will continue at this time. Patient was also seen by nephrology and initiated on Lasix 40 mg twice daily and will continue with oral and repeat labs in 2-3 days to monitor kidney functions. Patient instructed to follow-up with nephrology in the outpatient setting. Currently no reports of chest pain, shortness of breath, or palpitations. Patient is afebrile. No reports of nausea or vomiting and patient is tolerating diet. Patient will be transferred to [facility] today. On exam vital signs are stable. Temp is 99.4F, pulse is 84, respirations are 17, blood pressure is 133/78, oxygen saturation is 97% on room air. Cardio S1, S2 are muffled. Respiratory system shows diminished breath sounds at the bases with no wheezing or rhonchi noted. Abdomen is soft, obese, and nontender. Nervous system shows diffuse weakness. Please refer to medication reconciliation sheet for a list of medications. Patient Condition at Discharge: Fair Plan - Discharge Summary Discharge Rx Participant: Yes New Discharge Prescriptions: New Pantoprazole [Protonix] 40 mg PO AC-BRKFST #30 tablet. Folic Acid 1 mg PO DAILY@1200 tab Furosemide [Lasix] 40 mg PO BID #60 tablet Multivitamins, Thera [Multivitamin (formulary)] 1 each PO DAILY@1200 tab Thiamine [Vitamin B-1] 100 mg PO DAILY@1200 tab Continue Albuterol Sulfate [Proventil Hfa] 1 puff INHALATION RT-Q6H PRN PRN Reason: Wheezing Insulin Detemir (Levemir) [Levemir] 10 unit SQ HS syr Zinc Sulfate [Orazinc] 220 mg PO DAILY cap Ascorbic Acid [Vitamin C] 500 mg PO BID tab Cholecalciferol [Vitamin D3 (25 Mcg = 1000 Iu)] 5,000 unit PO DAILY tab Acetaminophen Tab [Tylenol] 650 mg PO Q6HR PRN PRN Reason: Fever Glucerna 1.2 Oren 240 ml PO QID@03,09,15,21 Heparin Sodium,Porcine [Heparin Sodium] 5,000 unit SQ BID@0800,2000 INSULIN ASPART (NovoLOG) [NovoLOG (formulary)] See Protocol SQ ACHS Metoprolol Tartrate [Lopressor] 50 mg PO BID@0800,1600 Loperamide [Imodium] 2 - 4 mg PO Q3H PRN PRN Reason: Diarrhea Discontinued Aspirin 81 mg PO DAILY chew Discharge Medication List Albuterol Sulfate [Proventil Hfa] 1 puff INHALATION RT-Q6H PRN 01/05/20 [History] Ascorbic Acid [Vitamin C] 500 mg PO BID tab 01/29/20 [Rx] Cholecalciferol [Vitamin D3 (25 Mcg = 1000 Iu)] 5,000 unit PO DAILY tab 01/29/20 [Rx] Insulin Detemir (Levemir) [Levemir] 10 unit SQ HS syr 01/29/20 [Rx] Zinc Sulfate [Orazinc] 220 mg PO DAILY cap 01/29/20 [Rx] Acetaminophen Tab [Tylenol] 650 mg PO Q6HR PRN 02/06/20 [History] Glucerna 1.2 Oren 240 ml PO QID@03,09,15,21 02/06/20 [History] Heparin Sodium,Porcine [Heparin Sodium] 5,000 unit SQ BID@0800,2000 02/06/20 [History] INSULIN ASPART (NovoLOG) [NovoLOG (formulary)] See Protocol SQ ACHS 02/06/20 [History] Loperamide [Imodium] 2 - 4 mg PO Q3H PRN 02/06/20 [History] Metoprolol Tartrate [Lopressor] 50 mg PO BID@0800,1600 02/06/20 [History] Pantoprazole [Protonix] 40 mg PO AC-BRKFST #30 tablet.dr 02/09/20 [Rx] Folic Acid 1 mg PO DAILY@1200 tab 02/19/20 [Rx] Furosemide [Lasix] 40 mg PO BID #60 tablet 02/19/20 [Rx] Multivitamins, Thera [Multivitamin (formulary)] 1 each PO DAILY@1200 tab 02/18 [Rx] Thiamine [Vitamin B-1] 100 mg PO DAILY@1200 tab 02/19/20 [Rx] Follow up Appointment(s)/Referral(s): Jacque Fine MD [STAFF PHYSICIAN] - 1 Week Nonstaff,Physician [Primary Care Provider] - 1-2 days Ambulatory/Diagnostic Orders: Basic Metabolic Panel [LAB.AMB] Time Frame: 3 Days, Location: None Selected Complete Blood Count w/diff [LAB.AMB] Time Frame: 3 Days, Location: None Selected Activity/Diet/Wound Care/Special Instructions: Patient is going to [facility] Activity as tolerated Continue with dysphasia 3 chopped diet consistent carb and close monitoring with one-to-one supervision during meals, head of the bed elevated 30-45 at all times Continue tube feedings Repeat labs in 2-3 days to monitor kidney functions along with hemoglobin Follow-up with primary care provider upon discharge Follow-up with nephrology outpatient in one week Discharge Disposition: TRANSFER TO SNF/ECF
[2020-02-19 15:08] VITALS: BP 149/85; RESP 18; TEMP 98.8
--- NOTE | 2020-02-19 15:16 | PN ---
PROGRESS NOTE Patient is seen for followup for acute kidney injury and volume overload. Lasix was increased yesterday. Her serum creatinine is slightly elevated at 1.6, although volume status has improved quite a bit. The patient is much more awake today. Oral intake is encouraged. She denies any significant complaints. She is being considered for discharge. PHYSICAL EXAMINATION: Blood pressure was 133/78, heart rate 84 per minute. Patient is afebrile. EXAMINATION OF THE HEART: S1 and S2. EXAMINATION OF LUNGS: Decreased breath sounds at bases. ABDOMEN: Soft, non-tender. Examination of lower extremities shows edema bilaterally, upper and lower extremities, with chronic skin changes. There is improvement in the edema in the upper extremities. [employer] exam is grossly intact. LABS: Labs show hemoglobin 8.4, sodium 146, potassium 4.1, BUN 73, creatinine 1.6. ASSESSMENT: 1. Acute kidney injury associated with recent diuresis. Overall renal function fairly stable. May switch to oral Lasix. The patient will need close monitoring of her sodium and renal function as outpatient with adjustment of diuretics as needed. 2. Hypernatremia; currently sodium at borderline. Expect improvement with switching Lasix to p.o. 3. Chronic kidney disease, stage 3b. Baseline creatinine 1.2 to 1.4 secondary to nephrosclerosis. UA completely clear on 02/06/2020. 4. Gastrointestinal bleed, currently stable. No active bleeding noted. Maintained on proton pump inhibitors. No iron deficiency noted. PLAN: Can switch to p.o. Lasix. Okay for discharge. Encourage increased oral intake, particularly free water. Monitor sodium and renal function as outpatient closely with adjustment of diuretics as needed. MMODL / IJN: [id number] /
== END 2020-02-19 15:40 | DRG 377 ==
LOC: EC 17:19 → 3SCARD 19:21 → OBSVTOIN 02-10 09:22 → 2SICU 02-10 15:40 → 4SSUR 02-11 23:45
PROVIDERS: ADMIT Internal Medicine; ATTEND Internal Medicine
PROC: 30233N1 Transfusion of Nonautologous Red Blood Cells into Peripheral Vein, Percutaneous Approach (ICD-10-PCS; principal; 2020-02-10)
DX: K57.33 Diverticulitis of large intestine without perforation or abscess with bleeding (principal); G92 Toxic encephalopathy; I50.33 Acute on chronic diastolic (congestive) heart failure; R57.1 Hypovolemic shock; D62 Acute posthemorrhagic anemia; I13.0 Hypertensive heart and chronic kidney disease with heart failure and stage 1 through stage 4 chronic kidney disease, or unspecified chronic kidney disease; E87.1 Hypo-osmolality and hyponatremia; N17.9 Acute kidney failure, unspecified; E87.0 Hyperosmolality and hypernatremia; N39.0 Urinary tract infection, site not specified; N18.32 Chronic kidney disease, stage 3b; L89.152 Pressure ulcer of sacral region, stage 2; Z20.828 Contact with and (suspected) exposure to other viral communicable diseases; E78.5 Hyperlipidemia, unspecified; E66.9 Obesity, unspecified; E86.0 Dehydration; E86.1 Hypovolemia; J84.10 Pulmonary fibrosis, unspecified; E77.8 Other disorders of glycoprotein metabolism; D69.6 Thrombocytopenia, unspecified; F03.90 Unspecified dementia, unspecified severity, without behavioral disturbance, psychotic disturbance, mood disturbance, and anxiety; Z79.899 Other long term (current) drug therapy; Z79.82 Long term (current) use of aspirin; Z79.4 Long term (current) use of insulin; Z98.890 Other specified postprocedural states; Z82.49 Family history of ischemic heart disease and other diseases of the circulatory system; Z86.19 Personal history of other infectious and parasitic diseases; Z68.35 Body mass index [BMI] 35.0-35.9, adult; Z87.01 Personal history of pneumonia (recurrent); Z93.1 Gastrostomy status
CPT/HCPCS: 36410; 36415; 36600; 70450; 71045; 76937; 78278; 80048; 80053; 81003; 82272; 82805; 83036; 83605; 83735; 83880; 84484; 85025; 85027; 85610; 85730; 86850; 86870; 86880; 86900; 86901; 86902; 86920; 87040; 87324; 87635; 93005; 94640; 99284

== ENCOUNTER 2020-02-23 22:50 | Inpatient (IN) | payer MEDICARE ==
[2020-02-24] MEDS ORDERED: propofoL 100 ML IV ONE (01:05)
[2020-02-24 01:13] LABS: Glucose,Whole Blood 262 mg/dL (75-99)
[2020-02-24 01:51] LABS: ABG Base Excess 0.6 mmol/L; ABG HCO3 24 mmol/L (21-25); ABG PCO2 33 mmHg (35-45); ABG PH 7.47 (7.35-7.45); ABG PO2 130 mmHg (83-108); ABG TCO2 25 mmol/L (19-24); Allen Test Performed? Yes
[2020-02-24] MEDS ORDERED: NALOXONE 0.4 MG/ML 1 ML VIAL IV PRN (02:01)
[2020-02-24 03:01] LABS: Partial Thromboplastin Time 25.4 sec (22.0-30.0); Prothrombin Time 10.9 sec (9.0-12.0)
[2020-02-24 03:06] LABS: Albumin 1.9 g/dL (3.5-5.0); Calcium 7.5 mg/dL (8.4-10.2); Potassium 4.7 mmol/L (3.5-5.1); Total Bilirubin 0.5 mg/dL (0.2-1.3); Total Protein 3.7 g/dL (6.3-8.2)
[2020-02-24 03:07] LABS: Anisocytosis Slight; HCT 24.7 % (34.0-46.0); HGB 7.3 gm/dL (11.4-16.0); Hypochromasia Marked; MCHC 29.6 g/dL (31.0-37.0); Macrocytosis Slight; Mean Platelet Volume 7.6; Platelet Count 228 k/uL (150-450); RBC 2.44 m/uL (3.80-5.40); RDW 16.4 % (11.5-15.5); WBC 19.9 k/uL (3.8-10.6)
[2020-02-24 03:08] LABS: MCV 101.4 fL (80.0-100.0)
[2020-02-24 04:00] LABS: Band Neutrophils % 3 %; Neutrophils % (M) 97 %; Nucleated Red Blood Cells 0 /100 WBC (0-0); Polychromasia Present; Total Cells Counted 100
[2020-02-24 06:07] LABS: Glucose,Whole Blood 251 mg/dL (75-99)
[2020-02-24] MEDS: INSULIN ASPART (NovoLOG) 100 UNIT/ML VIAL SQ SCH ×6 (06:14→23:29)
[2020-02-24] MEDS ORDERED: INSULIN ASPART (NovoLOG) 100 UNIT/ML VIAL SQ SCH ×2 (06:15→12:30)
[2020-02-24 06:24] LABS: Magnesium 2.3 mg/dL (1.6-2.3); Phosphorus 4.8 mg/dL (2.5-4.5)
[2020-02-24 06:38] LABS: Appearance,Urine Cloudy (Clear); Bacteria,Urine Rare /hpf; Bilirubin,Urine Negative (Negative); Blood,Urine Moderate (Negative); Budding Yeast,Urine Moderate /hpf; Color,Urine Yellow; Glucose,Urine (UA) Negative (Negative); Ketones,Urine 1+ (Negative); Leukocyte Esterase,Urine Large (Negative); Mucus,Urine Rare /hpf; Nitrite,Urine Positive (Negative); PH, Urine 5.5 (5.0-8.0); Protein,Urine 1+ (Negative); RBC,Urine 59 /hpf (0-5); Specific Gravity,Urine 1.019 (1.001-1.035); Squamous Epithelial Cell,Urine 1 /hpf (0-4); Urobilinogen,Urine <2.0 mg/dL (<2.0); WBC,Urine >182 /hpf (0-5)
[2020-02-24] MEDS: FAMOTIDINE 20 MG/2 ML VIAL IV SCH ×2 (08:36→22:27)
[2020-02-24] MEDS: CHLORHEXIDINE GLUCONATE 15 ML CUP MUCOUS MEM SCH ×2 (08:36→22:26)
[2020-02-24] MEDS ORDERED: PANTOPRAZOLE 40 MG/10 ML VIAL IVP SCH (09:00)
[2020-02-24] MEDS ORDERED: SODIUM CHLORIDE 0.9% 2,000 ML IV ONE (09:07)
[2020-02-24] MEDS ORDERED: CEFEPIME 1 GM in SODIUM CHLORIDE 0.9% 50 ML IVPB ONE (09:15)
[2020-02-24] MEDS: ASCORBIC ACID 500 MG TAB PO SCH ×2 (09:24→22:27)
[2020-02-24] MEDS: CHOLECALCIFEROL 1,000 UNIT TAB PO SCH (09:24)
[2020-02-24] MEDS: MULTIVITAMINS, THERA 1 EACH TAB PO SCH (09:24)
[2020-02-24] MEDS: ZINC SULFATE 220 MG CAP PO SCH (09:24)
--- NOTE | 2020-02-24 09:35 | XR ---
EXAMINATION TYPE: XR chest 1V portable DATE OF EXAM: 02/24/2020 COMPARISON: 02/17/2020 INDICATION: Tube placement TECHNIQUE: Single frontal view of the chest is obtained. FINDINGS: The heart size is normal. The pulmonary vasculature is somewhat prominent. Mild diffuse increased perihilar lung markings are present. There is silhouetting the left diaphragm. There may be slight worsening from comparison. IMPRESSION: 1. Worsening bilateral lung infiltrates
[2020-02-24 11:01] LABS: Glucose,Whole Blood 168 mg/dL (75-99)
[2020-02-24] MEDS: THIAMINE 100 MG TAB PO SCH (11:03)
[2020-02-24] MEDS: FOLIC ACID 1 MG TAB PO SCH (11:03)
[2020-02-24] MEDS: SODIUM CHLORIDE 0.9% 1,000 ML IV SCH (11:15)
--- NOTE | 2020-02-24 11:18 | P.NPCON ---
History of Present Illness - Reason for Consult chronic renal failure - History of Present Illness Reason for consultation: Chronic kidney disease History of present illness: The patient is a 75-year-old female seen in renal consultation for chronic kidney disease. Patient has chronic kidney disease stage IIIb secondary to nephrosclerosis. Baseline creatinine near 1.5. Patient was recently discharged from this facility on 02/19/2020 and at that time had Covid 19 infection. She subsequently went to rehab but within a few hours he came short of breath and went to [facility] in [place]. She was subsequently intubated and then transferred here. She is currently on 45% FiO2. She is receiving 2 L of normal saline bolus and is also maintained on normal saline at 100 mL an hour. She will receiving the of blood today. She is quite edematous. Her recent Covid testing was negative. She is not on vasopressors. She is receiving antibiotics for presumed UTI. Cultures are pending. Vital signs are stable. General: Intubated. HEENT: Head exam is unremarkable. Neck is without jugular venous distension. LUNGS: Breath sounds decreased. HEART: Rate and Rhythm are regular. ABDOMEN: Soft, no gross distention noted. EXTREMITITES: 2+ edema. Past Medical History Past Medical History: Hyperlipidemia, Hypertension, Renal Disease Additional Past Medical History / Comment(s): Covid, Anemia ; Chronic kidney disease; ARDS History of Any Multi-Drug Resistant Organisms: None Reported Past Surgical History: Orthopedic Surgery Additional Past Surgical History / Comment(s): Peg tube Past Psychological History: No Psychological Hx Reported Smoking Status: Never smoker Past Alcohol Use History: None Reported Past Drug Use History: None Reported - Past Family History Father Family Medical History: Pulmonary Embolus Additional Family Medical History / Comment(s): Mother History Unknown: Yes Additional Family Medical History / Comment(s): " from old age" age 93 Daughter(s) Family Medical History: Hypertension Medications and Allergies Home Medications Medication Instructions Recorded Confirmed Type Albuterol Sulfate [Proventil Hfa] 1 puff INHALATION RT-Q6H PRN 01/05/20 02/24/20 History Ascorbic Acid [Vitamin C] 500 mg PO BID tab 01/29/20 02/24/20 Rx Cholecalciferol [Vitamin D3 (25 5,000 unit PO DAILY tab 01/29/20 02/24/20 Rx Mcg = 1000 Iu)] Insulin Detemir (Levemir) [Levemir] 10 unit SQ HS syr 01/29/20 02/24/20 Rx Zinc Sulfate [Orazinc] 220 mg PO DAILY cap 01/29/20 02/24/20 Rx Acetaminophen Tab [Tylenol] 650 mg PO Q6HR PRN 02/06/20 02/24/20 History Glucerna 1.2 Oren 240 ml PO QID@03,,,02/06/20 02/24/20 History Heparin Sodium,Porcine [Heparin 5,000 unit SQ BID@0800,2000 02/06/20 02/24/20 History Sodium] Loperamide [Imodium] 2 - 4 mg PO Q3H PRN 02/06/20 02/24/20 History Metoprolol Tartrate [Lopressor] 50 mg PO BID@0800,1600 02/06/20 02/24/20 History Folic Acid 1 mg PO DAILY@1200 tab 02/19/20 02/24/20 Rx Furosemide [Lasix] 40 mg PO BID #60 tablet 02/19/20 02/24/20 Rx Thiamine [Vitamin B-1] 100 mg PO DAILY@1200 tab 02/19/20 02/24/20 Rx INSULIN ASPART (NovoLOG) [NovoLOG 4 unit SQ ACHS 02/24/20 02/24/20 History (formulary)] Lansoprazole [Prevacid] 30 mg PO DAILY 02/24/20 02/24/20 History Multivitamins, Thera [Multivitamin 1 tab PO DAILY 02/24/20 02/24/20 History (formulary)] Ondansetron Odt [Zofran Odt] 4 mg PO Q4H PRN 02/24/20 02/24/20 History Allergies Allergy/AdvReac Type Severity Reaction Status Date / Time No Known Allergies Allergy Verified 02/24/20 08:25 Physical Exam Vitals: Vital Signs Temp Pulse Resp BP Pulse Ox 02/24/20 09:30 73 18 99/61 100 02/24/20 09:00 75 18 109/91 100 02/24/20 08:30 75 18 121/64 100 02/24/20 08:00 96 F L 72 15 116/66 100 02/24/20 07:30 75 17 86/54 100 02/24/20 07:00 76 15 87/55 98 02/24/20 06:30 76 15 96/59 96 02/24/20 06:00 74 16 96/51 94 L 02/24/20 05:30 80 13 112/81 98 02/24/20 05:00 79 16 107/58 97 02/24/20 04:30 81 13 102/60 97 02/24/20 04:00 98.3 F 79 15 86/57 97 02/24/20 03:30 80 18 100/81 95 02/24/20 03:00 84 15 75/36 98 02/24/20 02:30 80 17 73/35 97 02/24/20 02:00 82 19 78/34 97 02/24/20 01:30 87 19 88/28 96 02/24/20 01:11 90 29 H Intake and Output 02/23/20 02/24/20 02/24/20 22:59 06:59 14:59 Intake Total 600 2152.946 Output Total 190 70 Balance 410 2082.946 Intake: IV 600 0.45 600 Intake, IV Titration 2152.946 Amount Cefepime 1 gm In Sodium 50 Chloride 0.9% 50 ml @ 100 mls/hr IVPB ONCE ONE Rx# :[id number] Cefepime 1 gm In Sodium 50 Chloride 0.9% 50 ml @ 12. 5 mls/hr IVPB Q12HR [facility] Rx#:[id number] Sodium Chloride 0.9% 2, 2050 000 ml @ 999 mls/hr IV . Q2H1M ONE Rx#:[id number] propofoL 1,000 mg In 2.946 Empty Bag 1 bag @ Titrate IV .Q0M [facility] Rx#: [id number] Output: Urine 190 70 Other: Voiding Method Indwelling Catheter Weight 98.2 kg 98.2 kg Results - Lab Results Most recent lab results ABG pH 7.47 (7.35-7.45) H 02/24/20 01:50 ABG pCO2 33 mmHg (35-45) L 02/24/20 01:50 ABG pO2 130 mmHg (83-108) H 02/24/20 01:50 ABG HCO3 24 mmol/L (21-25) 02/24/20 01:50 ABG O2 Saturation 100.0 % (94-97) H 02/24/20 01:50 Calcium 7.5 mg/dL (8.4-10.2) L 02/24/20 02:43 Phosphorus 4.8 mg/dL (2.5-4.5) H 02/24/20 05:22 Magnesium 2.3 mg/dL (1.6-2.3) 02/24/20 05:22 02/24/20 02:43 02/24/20 02:43 Assessment and Plan Plan: Assessment: 1. Chronic kidney disease stage IIIB secondary to nephrosclerosis with baseline creatinine near 1.5. No hydronephrosis noted on kidney ultrasound done in January 2020. Left kidney wasn't visualized. Right kidney was small in size. 2. Severe sepsis maintained on antibiotics. Cultures pending. 3. Anemia of chronic kidney disease. No active bleeding noted. She does have history of GI bleed. Hemoglobin 7.3 today. Scheduled to receive a unit of blood today. 4. Generalized edema partially due to hypoalbuminemia causing third spacing. 5. Acute hypoxic history failure. Currently intubated. 6. Diabetes mellitus. Plan: Decrease rate of normal saline to 70 mL an hour. 25 g IV albumin 2 doses today. Lasix 60 mg IV once after blood transfusion completed. Avoid nephrotoxins. Follow-up cultures. Continue to monitor renal function and urine output. Add Aranesp. Ok place PICC line in the dominant arm. Thank you for the consultation. I will continue to follow this patient with you during her hospital stay.
[2020-02-24] MEDS: DARBEPOETIN ALFA 40 MCG/0.4 ML SYRINGE SQ SCH (11:25)
[2020-02-24] MEDS: ALBUMIN HUMAN 25% 50 ML in EMPTY BAG 1 BAG IVPB SCH ×4 (11:44→17:24)
--- NOTE | 2020-02-24 12:12 | P.HPIM ---
History of Present Illness 75-year-old female was transferred from a [facility] for GI bleed. Patient had a history of GI bleed in the past patient underwent extensive workup there is no evidence of active GI bleed at this time. Although patient apparently became appended later yesterday at the other hospital and patient has to be intubated. Patient started having fevers does have significantly abnormal looking urine patient does have a Pablo catheter which will be replaced and the patient has a pseudomonas in the urine patient was initially on Rocephin which is being changed to cefepime patient was recently diagnosed with colon with had a long the hospitalization stay here after which patient was subsequently discharged to a facility where she stayed only for few hours after that she ended up in the hospital for possible GI bleed. Her recent Covid was negative. Patient is presently intubated 7 and sedated. Review of Systems Unable to and due to her clinical condition Past Medical History Past Medical History: Hyperlipidemia, Hypertension, Renal Disease Additional Past Medical History / Comment(s): Covid, Anemia ; Chronic kidney disease; ARDS History of Any Multi-Drug Resistant Organisms: None Reported Past Surgical History: Orthopedic Surgery Additional Past Surgical History / Comment(s): Peg tube Past Psychological History: No Psychological Hx Reported Smoking Status: Never smoker Past Alcohol Use History: None Reported Past Drug Use History: None Reported - Past Family History Father Family Medical History: Pulmonary Embolus Additional Family Medical History / Comment(s): Mother History Unknown: Yes Additional Family Medical History / Comment(s): " from old age" age 93 Daughter(s) Family Medical History: Hypertension Medications and Allergies Home Medications Medication Instructions Recorded Confirmed Type Albuterol Sulfate [Proventil Hfa] 1 puff INHALATION RT-Q6H PRN 01/05/20 02/24/20 History Ascorbic Acid [Vitamin C] 500 mg PO BID tab 01/29/20 02/24/20 Rx Cholecalciferol [Vitamin D3 (25 5,000 unit PO DAILY tab 01/29/20 02/24/20 Rx Mcg = 1000 Iu)] Insulin Detemir (Levemir) [Levemir] 10 unit SQ HS syr 01/29/20 02/24/20 Rx Zinc Sulfate [Orazinc] 220 mg PO DAILY cap 01/29/20 02/24/20 Rx Acetaminophen Tab [Tylenol] 650 mg PO Q6HR PRN 02/06/20 02/24/20 History Glucerna 1.2 Oren 240 ml PO QID@03,,,02/06/20 02/24/20 History Heparin Sodium,Porcine [Heparin 5,000 unit SQ BID@0800,2000 02/06/20 02/24/20 History Sodium] Loperamide [Imodium] 2 - 4 mg PO Q3H PRN 02/06/20 02/24/20 History Metoprolol Tartrate [Lopressor] 50 mg PO BID@0800,1600 02/06/20 02/24/20 History Folic Acid 1 mg PO DAILY@1200 tab 02/19/20 02/24/20 Rx Furosemide [Lasix] 40 mg PO BID #60 tablet 02/19/20 02/24/20 Rx Thiamine [Vitamin B-1] 100 mg PO DAILY@1200 tab 02/19/20 02/24/20 Rx INSULIN ASPART (NovoLOG) [NovoLOG 4 unit SQ ACHS 02/24/20 02/24/20 History (formulary)] Lansoprazole [Prevacid] 30 mg PO DAILY 02/24/20 02/24/20 History Multivitamins, Thera [Multivitamin 1 tab PO DAILY 02/24/20 02/24/20 History (formulary)] Ondansetron Odt [Zofran Odt] 4 mg PO Q4H PRN 02/24/20 02/24/20 History Allergies Allergy/AdvReac Type Severity Reaction Status Date / Time No Known Allergies Allergy Verified 02/24/20 08:25 Physical Exam Vitals: Vital Signs Temp Pulse Resp BP Pulse Ox 02/24/20 09:30 73 18 99/61 100 02/24/20 09:00 75 18 109/91 100 02/24/20 08:30 75 18 121/64 100 02/24/20 08:00 96 F L 72 15 116/66 100 02/24/20 07:30 75 17 86/54 100 02/24/20 07:00 76 15 87/55 98 02/24/20 06:30 76 15 96/59 96 02/24/20 06:00 74 16 96/51 94 L 02/24/20 05:30 80 13 112/81 98 02/24/20 05:00 79 16 107/58 97 02/24/20 04:30 81 13 102/60 97 02/24/20 04:00 98.3 F 79 15 86/57 97 02/24/20 03:30 80 18 100/81 95 02/24/20 03:00 84 15 75/36 98 02/24/20 02:30 80 17 73/35 97 02/24/20 02:00 82 19 78/34 97 02/24/20 01:30 87 19 88/28 96 02/24/20 01:11 90 29 H Intake and Output 02/23/20 02/24/20 02/24/20 22:59 06:59 14:59 Intake Total 600 2152.946 Output Total 190 70 Balance 410 2082.946 Intake: IV 600 0.45 600 Intake, IV Titration 2152.946 Amount Cefepime 1 gm In Sodium 50 Chloride 0.9% 50 ml @ 100 mls/hr IVPB ONCE ONE Rx# :[id number] Cefepime 1 gm In Sodium 50 Chloride 0.9% 50 ml @ 12. 5 mls/hr IVPB Q12HR [facility] Rx#:[id number] Sodium Chloride 0.9% 2, 2050 000 ml @ 999 mls/hr IV . Q2H1M ONE Rx#:[id number] propofoL 1,000 mg In 2.946 Empty Bag 1 bag @ Titrate IV .Q0M [facility] Rx#: [id number] Output: Urine 190 70 Other: Voiding Method Indwelling Catheter Weight 98.2 kg 98.2 kg PHYSICAL EXAMINATION: GENERAL: Patient is intubated sedated HEENT: Pupils are round and equally reacting to light. EOMI. No scleral icterus. No conjunctival pallor. Normocephalic, atraumatic. No pharyngeal erythema. No thyromegaly. CARDIOVASCULAR: S1 and S2 present. No murmurs, rubs, or gallops. PULMONARY: Chest is clear to auscultation, no wheezing or crackles. ABDOMEN: Soft, nontender, nondistended, normoactive bowel sounds. No palpable organomegaly. Patient has a PEG tube in place MUSCULOSKELETAL: No joint swelling or deformity. EXTREMITIES: No cyanosis, clubbing, bilateral upper limb edema significant on the left upper arm. NEUROLOGICAL: Patient is sedated SKIN: No rashes. Results CBC & Chem 7: 02/24/20 02:43 02/24/20 02:43 Labs: Abnormal Lab Results - Last 24 Hours (Table) 02/24/20 02/24/20 02/24/20 Range/Units 01:11 01:50 02:43 WBC (3.8-10.6) k/uL RBC (3.80-5.40) m/uL Hgb (11.4-16.0) gm/dL Hct (34.0-46.0) % MCV (80.0-100.0) fL MCHC (31.0-37.0) g/dL RDW (11.5-15.5) % Neutrophils # (Manual) (1.3-7.7) k/uL ABG pH 7.47 H (7.35-7.45) ABG pCO2 33 L (35-45) mmHg ABG pO2 130 H (83-108) mmHg ABG Total CO2 25 H (19-24) mmol/L ABG O2 Saturation 100.0 H (94-97) % Chloride 110 H (98-107) mmol/L BUN 78 H (7-17) mg/dL Creatinine 1.47 H (0.52-1.04) mg/dL Glucose 221 H (74-99) mg/dL POC Glucose (mg/dL) 262 H (75-99) mg/dL Calcium 7.5 L (8.4-10.2) mg/dL Phosphorus (2.5-4.5) mg/dL Troponin I (0.000-0.034) ng/mL Total Protein 3.7 L (6.3-8.2) g/dL Albumin 1.9 L (3.5-5.0) g/dL Urine Appearance (Clear) Urine Protein (Negative) Urine Ketones (Negative) Urine Blood (Negative) Urine Nitrite (Negative) Ur Leukocyte Esterase (Negative) Urine RBC (0-5) /hpf Urine WBC (0-5) /hpf Urine WBC Clumps (None) /hpf Urine Bacteria (None) /hpf Urine Mucus (None) /hpf Urine Yeast (Budding) (None) /hpf 02/24/20 02/24/20 02/24/20 Range/Units 02:43 02:43 05:22 WBC 19.9 H (3.8-10.6) k/uL RBC 2.44 L (3.80-5.40) m/uL Hgb 7.3 L (11.4-16.0) gm/dL Hct 24.7 L (34.0-46.0) % MCV 101.4 H D (80.0-100.0) fL MCHC 29.6 L (31.0-37.0) g/dL RDW 16.4 H (11.5-15.5) % Neutrophils # (Manual) 19.90 H (1.3-7.7) k/uL ABG pH (7.35-7.45) ABG pCO2 (35-45) mmHg ABG pO2 (83-108) mmHg ABG Total CO2 (19-24) mmol/L ABG O2 Saturation (94-97) % Chloride (98-107) mmol/L BUN (7-17) mg/dL Creatinine (0.52-1.04) mg/dL Glucose (74-99) mg/dL POC Glucose (mg/dL) (75-99) mg/dL Calcium (8.4-10.2) mg/dL Phosphorus (2.5-4.5) mg/dL Troponin I 0.060 H* 0.067 H* (0.000-0.034) ng/mL Total Protein (6.3-8.2) g/dL Albumin (3.5-5.0) g/dL Urine Appearance (Clear) Urine Protein (Negative) Urine Ketones (Negative) Urine Blood (Negative) Urine Nitrite (Negative) Ur Leukocyte Esterase (Negative) Urine RBC (0-5) /hpf Urine WBC (0-5) /hpf Urine WBC Clumps (None) /hpf Urine Bacteria (None) /hpf Urine Mucus (None) /hpf Urine Yeast (Budding) (None) /hpf 02/24/20 02/24/20 02/24/20 Range/Units 05:22 06:06 06:24 WBC (3.8-10.6) k/uL RBC (3.80-5.40) m/uL Hgb (11.4-16.0) gm/dL Hct (34.0-46.0) % MCV (80.0-100.0) fL MCHC (31.0-37.0) g/dL RDW (11.5-15.5) % Neutrophils # (Manual) (1.3-7.7) k/uL ABG pH (7.35-7.45) ABG pCO2 (35-45) mmHg ABG pO2 (83-108) mmHg ABG Total CO2 (19-24) mmol/L ABG O2 Saturation (94-97) % Chloride (98-107) mmol/L BUN (7-17) mg/dL Creatinine (0.52-1.04) mg/dL Glucose (74-99) mg/dL POC Glucose (mg/dL) 251 H (75-99) mg/dL Calcium (8.4-10.2) mg/dL Phosphorus 4.8 H (2.5-4.5) mg/dL Troponin I (0.000-0.034) ng/mL Total Protein (6.3-8.2) g/dL Albumin (3.5-5.0) g/dL Urine Appearance Cloudy H (Clear) Urine Protein 1+ H (Negative) Urine Ketones 1+ H (Negative) Urine Blood Moderate H (Negative) Urine Nitrite Positive H (Negative) Ur Leukocyte Esterase Large H (Negative) Urine RBC 59 H (0-5) /hpf Urine WBC >182 H (0-5) /hpf Urine WBC Clumps Many H (None) /hpf Urine Bacteria Rare H (None) /hpf Urine Mucus Rare H (None) /hpf Urine Yeast (Budding) Moderate H (None) /hpf 02/24/20 Range/Units 11:00 WBC (3.8-10.6) k/uL RBC (3.80-5.40) m/uL Hgb (11.4-16.0) gm/dL Hct (34.0-46.0) % MCV (80.0-100.0) fL MCHC (31.0-37.0) g/dL RDW (11.5-15.5) % Neutrophils # (Manual) (1.3-7.7) k/uL ABG pH (7.35-7.45) ABG pCO2 (35-45) mmHg ABG pO2 (83-108) mmHg ABG Total CO2 (19-24) mmol/L ABG O2 Saturation (94-97) % Chloride (98-107) mmol/L BUN (7-17) mg/dL Creatinine (0.52-1.04) mg/dL Glucose (74-99) mg/dL POC Glucose (mg/dL) 168 H (75-99) mg/dL Calcium (8.4-10.2) mg/dL Phosphorus (2.5-4.5) mg/dL Troponin I (0.000-0.034) ng/mL Total Protein (6.3-8.2) g/dL Albumin (3.5-5.0) g/dL Urine Appearance (Clear) Urine Protein (Negative) Urine Ketones (Negative) Urine Blood (Negative) Urine Nitrite (Negative) Ur Leukocyte Esterase (Negative) Urine RBC (0-5) /hpf Urine WBC (0-5) /hpf Urine WBC Clumps (None) /hpf Urine Bacteria (None) /hpf Urine Mucus (None) /hpf Urine Yeast (Budding) (None) /hpf Microbiology - Last 24 Hours (Table) 02/24/20 06:24 Urine Culture - Preliminary Urine,Catheterized Assessment and Plan Plan: -Acute hypoxic respiratory failure: Patient is presently intubated apparently patient was intubated last night as she was up tended because of encephalopathy probably from infection most probably urinary tract infection patient is on FiO2 of 45% for rest of the vent settings please refer to drug safety specialist documentation. -Toxic encephalopathy: Secondary to sepsis most probably from urinary tract infection Pablo catheter will be changed patient has Pseudomonas in the urine patient is presently on cefepime -Pseudomonal UTI -Sepsis secondary to UTI -Chronic kidney disease: Nephrology is following the patient IV fluids as per nephrology. Patient blood pressure is low normal at this time. Patient is also receiving albumin aspirin nephrology -Type 2 diabetes mellitus. -Recent Covid 19 infection. -Hyperlipidemia -Dysphagia for which patient has a PEG tube -DVT prophylaxis: Subcutaneous heparin
--- NOTE | 2020-02-24 13:39 | P.CNPUL ---
History of Present Illness Consult date: 02/24/20 Requesting physician: Sharita Abreu Reason for consult: hypoxemia, pneumonia, other Chief complaint: Mental status change and shortness of breath. History of present illness: This is a 75-year-old female, familiar to my service, patient was recently at [facility], and she was initially admitted on 01/05/20. She was eventually discharged to a rehab facility on 02/19/20. Patient had many medical problems during her last admission included acute GI bleeding, acute on chronic diastolic congestive heart failure, acute covid 19 pneumonitis, H influenza pneumonia, and recurrent urinary tract infection. chronic kidney disease, hypertension, hypoxic respiratory failure secondary to pneumonia, obesity with BMI of 35.9, patient required PEG tube placement while she was in the hospital. She was seen by many consultants during her last hospital admission. Patient was eventually discharged to rehab facility on 02/19/20. However the patient was in the rehab facility for less than one day, apparently she developed worsening mental status, worsening shortness of breath. Hence the patient was transferred to [facility] in [facility], admitted for few days, and she continued to worsen, there was a concern about ongoing GI blood losses and hemoglobin. There is also a concern about her worsening pulmonary status, patient was transferred to [facility] and this consult was initiated. Apparently the day of her transferred to [facility], patient was intubated and required mechanical ventilation. Upon my evaluation the patient today in the ICU, patient is on assist control rate of 14, tidal volume is 480, FiO2 45% and PEEP of 5. ABG showed a pO2 of 130 pCO2 of 33 pH of 7.47. After reviewing the ABG, her ventilator settings were changed to tolerate volume is 450 assist-control rate 18 and kept her on 45% FiO2. Ch est x-ray showed minimal bilateral infiltrates. Urinalysis is consistent with pyuria and bacteriuria. Hemoglobin is noted to be 7.3. WBC count is 19.9. And BUN is 78 creatinine 1.47. Patient was empirically started on cefepime for presumptive urinary tract infection and pneumonia patient had previous pseudomonal urinary tract infection. Not much history could be obtained from the patient most of the information obtained so far is from the chart Review of Systems ROS unobtainable: due to endotracheal tube Past Medical History Past Medical History: Hyperlipidemia, Hypertension, Renal Disease Additional Past Medical History / Comment(s): Covid, Anemia ; Chronic kidney disease; ARDS History of Any Multi-Drug Resistant Organisms: None Reported Past Surgical History: Orthopedic Surgery Additional Past Surgical History / Comment(s): Peg tube Past Psychological History: No Psychological Hx Reported Smoking Status: Never smoker Past Alcohol Use History: None Reported Past Drug Use History: None Reported - Past Family History Father Family Medical History: Pulmonary Embolus Additional Family Medical History / Comment(s): Mother History Unknown: Yes Additional Family Medical History / Comment(s): " from old age" age 93 Daughter(s) Family Medical History: Hypertension Medications and Allergies Home Medications Medication Instructions Recorded Confirmed Type Albuterol Sulfate [Proventil Hfa] 1 puff INHALATION RT-Q6H PRN 01/05/20 02/24/20 History Ascorbic Acid [Vitamin C] 500 mg PO BID tab 01/29/20 02/24/20 Rx Cholecalciferol [Vitamin D3 (25 5,000 unit PO DAILY tab 01/29/20 02/24/20 Rx Mcg = 1000 Iu)] Insulin Detemir (Levemir) [Levemir] 10 unit SQ HS syr 01/29/20 02/24/20 Rx Zinc Sulfate [Orazinc] 220 mg PO DAILY cap 01/29/20 02/24/20 Rx Acetaminophen Tab [Tylenol] 650 mg PO Q6HR PRN 02/06/20 02/24/20 History Glucerna 1.2 Oren 240 ml PO QID@03,09,15,21 02/06/20 02/24/20 History Heparin Sodium,Porcine [Heparin 5,000 unit SQ BID@0800,2000 02/06/20 02/24/20 History Sodium] Loperamide [Imodium] 2 - 4 mg PO Q3H PRN 02/06/20 02/24/20 History Metoprolol Tartrate [Lopressor] 50 mg PO BID@0800,1600 02/06/20 02/24/20 History Folic Acid 1 mg PO DAILY@1200 tab 02/19/20 02/24/20 Rx Furosemide [Lasix] 40 mg PO BID #60 tablet 02/19/20 02/24/20 Rx Thiamine [Vitamin B-1] 100 mg PO DAILY@1200 tab 02/19/20 02/24/20 Rx INSULIN ASPART (NovoLOG) [NovoLOG 4 unit SQ ACHS 02/24/20 02/24/20 History (formulary)] Lansoprazole [Prevacid] 30 mg PO DAILY 02/24/20 02/24/20 History Multivitamins, Thera [Multivitamin 1 tab PO DAILY 02/24/20 02/24/20 History (formulary)] Ondansetron Odt [Zofran Odt] 4 mg PO Q4H PRN 02/24/20 02/24/20 History Allergies Allergy/AdvReac Type Severity Reaction Status Date / Time No Known Allergies Allergy Verified 02/24/20 08:25 Physical Exam Vitals: Vital Signs Temp Pulse Resp BP Pulse Ox 02/24/20 09:30 73 18 99/61 100 02/24/20 09:00 75 18 109/91 100 02/24/20 08:30 75 18 121/64 100 02/24/20 08:00 96 F L 72 15 116/66 100 02/24/20 07:30 75 17 86/54 100 02/24/20 07:00 76 15 87/55 98 02/24/20 06:30 76 15 96/59 96 02/24/20 06:00 74 16 96/51 94 L 02/24/20 05:30 80 13 112/81 98 02/24/20 05:00 79 16 107/58 97 02/24/20 04:30 81 13 102/60 97 02/24/20 04:00 98.3 F 79 15 86/57 97 02/24/20 03:30 80 18 100/81 95 02/24/20 03:00 84 15 75/36 98 02/24/20 02:30 80 17 73/35 97 02/24/20 02:00 82 19 78/34 97 02/24/20 01:30 87 19 88/28 96 02/24/20 01:11 90 29 H Intake and Output 02/23/20 02/24/20 02/24/20 22:59 06:59 14:59 Intake Total 600 2152.946 Output Total 190 70 Balance 410 2082.946 Intake: IV 600 0.45 600 Intake, IV Titration 2152.946 Amount Cefepime 1 gm In Sodium 50 Chloride 0.9% 50 ml @ 100 mls/hr IVPB ONCE ONE Rx# :[id number] Cefepime 1 gm In Sodium 50 Chloride 0.9% 50 ml @ 12. 5 mls/hr IVPB Q12HR [facility] Rx#:[id number] Sodium Chloride 0.9% 2, 0 000 ml @ 999 mls/hr IV . Q2H1M ONE Rx#:[id number] propofoL 1,000 mg In 2.946 Empty Bag 1 bag @ Titrate IV .Q0M [facility] Rx#: [id number] Output: Urine 190 70 Other: Voiding Method Indwelling Catheter Weight 98.2 kg 98.2 kg Physical Exam: Revealed a 75-year-old female, obese, on mechanical ventilation. Head: Atraumatic, normocephalic. Endotracheal tube is intact. HEENT:[Neck is supple.] [No neck masses.] [No thyromegaly.] [No JVD.] Chest: [Diminished breath sounds and crackles at the bases. Cardiac Exam: [Normal S1 and S2, no S3 gallop, no murmur.] Abdomen: [Soft, nontender, no megaly, no rebound, no guarding, normal bowel sounds.] PEG tube is noted and seems to be intact. Extremities: [No clubbing, 1+ bipedal edema, no cyanosis.] Neurological Exam: Not be assessed, patient is on propofol drip. Psychiatric: Could not assess. Skin: No rashes. Results - Laboratory Findings CBC and BMP: 02/24/20 02:43 02/24/20 02:43 ABG ABG pH 7.47 (7.35-7.45) H 02/24/20 01:50 ABG pCO2 33 mmHg (35-45) L 02/24/20 01:50 ABG pO2 130 mmHg (83-108) H 02/24/20 01:50 ABG O2 Saturation 100.0 % (94-97) H 02/24/20 01:50 PT/INR, D-dimer PT 10.9 sec (9.0-12.0) 02/24/20 02:43 INR 1.0 (<1.2) 02/24/20 02:43 Abnormal lab findings: Abnormal Labs 02/24/20 02/24/20 02/24/20 01:11 01:50 02:43 WBC RBC Hgb Hct MCV MCHC RDW Neutrophils # (Manual) ABG pH 7.47 H ABG pCO2 33 L ABG pO2 130 H ABG Total CO2 25 H ABG O2 Saturation 100.0 H Chloride 110 H BUN 78 H Creatinine 1.47 H Glucose 221 H POC Glucose (mg/dL) 262 H Calcium 7.5 L Phosphorus Troponin I Total Protein 3.7 L Albumin 1.9 L Urine Appearance Urine Protein Urine Ketones Urine Blood Urine Nitrite Ur Leukocyte Esterase Urine RBC Urine WBC Urine WBC Clumps Urine Bacteria Urine Mucus Urine Yeast (Budding) 02/24/20 02/24/20 02/24/20 02:43 02:43 05:22 WBC 19.9 H RBC 2.44 L Hgb 7.3 L Hct 24.7 L MCV 101.4 H D MCHC 29.6 L RDW 16.4 H Neutrophils # (Manual) 19.90 H ABG pH ABG pCO2 ABG pO2 ABG Total CO2 ABG O2 Saturation Chloride BUN Creatinine Glucose POC Glucose (mg/dL) Calcium Phosphorus Troponin I 0.060 H* 0.067 H* Total Protein Albumin Urine Appearance Urine Protein Urine Ketones Urine Blood Urine Nitrite Ur Leukocyte Esterase Urine RBC Urine WBC Urine WBC Clumps Urine Bacteria Urine Mucus Urine Yeast (Budding) 02/24/20 02/24/20 02/24/20 05:22 06:06 06:24 WBC RBC Hgb Hct MCV MCHC RDW Neutrophils # (Manual) ABG pH ABG pCO2 ABG pO2 ABG Total CO2 ABG O2 Saturation Chloride BUN Creatinine Glucose POC Glucose (mg/dL) 251 H Calcium Phosphorus 4.8 H Troponin I Total Protein Albumin Urine Appearance Cloudy H Urine Protein 1+ H Urine Ketones 1+ H Urine Blood Moderate H Urine Nitrite Positive H Ur Leukocyte Esterase Large H Urine RBC 59 H Urine WBC >182 H Urine WBC Clumps Many H Urine Bacteria Rare H Urine Mucus Rare H Urine Yeast (Budding) Moderate H 02/24/20 11:00 WBC RBC Hgb Hct MCV MCHC RDW Neutrophils # (Manual) ABG pH ABG pCO2 ABG pO2 ABG Total CO2 ABG O2 Saturation Chloride BUN Creatinine Glucose POC Glucose (mg/dL) 168 H Calcium Phosphorus Troponin I Total Protein Albumin Urine Appearance Urine Protein Urine Ketones Urine Blood Urine Nitrite Ur Leukocyte Esterase Urine RBC Urine WBC Urine WBC Clumps Urine Bacteria Urine Mucus Urine Yeast (Budding) - Diagnostic Findings Chest x-ray: image reviewed (As noted in HPI.) Assessment and Plan Assessment: Impression: Acute hypoxic respiratory failure, secondary to pneumonia as noted below. Acute healthcare acquired pneumonia Acute metabolic encephalopathy Acute urinary tract infection most likely secondary to pseudomonas Chronic kidney disease Type 2 diabetes. Recent history of cough related 19 infection and pneumonia Dyslipidemia History of dysphagia requiring PEG tube placement. Obesity with BMI of 35.9. History of chronic diastolic congestive heart failure History of chronic GI blood losses and positive Hemoccult stools, exact etiology is not clear. Yet to be investigated by gastroenterology. Chronic anemia secondary to chronic GI blood losses. And secondary to chronic renal failure. Generalized edema secondary to hypoalbuminemia. Severe sepsis, likely sources would be urine and lungs. Cultures are pending. Recommendation: Continue ventilatory support. Nutritional support via PEG tube. GI and DVT prophylaxis. GI see on consultation for chronic GI blood losses. Nephrology to see for chronic kidney disease of stage IIIB. Antibiotics for presumptive pseudomonal infection. Monitor sugars and addressed accordingly. Arrange for PICC line placement. Continue to monitor closely in the ICU. Prognosis is extremely poor and guarded. We'll continue to follow. Discussed her condition with the admitting physician Time with Patient: Greater than 30
[2020-02-24] MEDS ORDERED: LIDOCAINE 1% INJ 10MG/ML (20 ML MDV) SQ ONE (14:34)
--- NOTE | 2020-02-24 15:04 | XR ---
EXAMINATION TYPE: XR chest 1V portable DATE OF EXAM: 02/24/2020 COMPARISON: 02/24/2020 INDICATION: PICC line TECHNIQUE: Single frontal view of the chest is obtained. FINDINGS: The heart size is normal. The pulmonary vasculature is normal. Infiltrate is through the left lung. Endotracheal tube tip is above the donovan. A PICC line enters on the right has the tip within the exp ected region of the brachiocephalic vein. IMPRESSION: 1. PICC line tip likely within the left brachiocephalic vein. 2. Worsening infiltrate within the left midlung.
--- NOTE | 2020-02-24 15:04 | XR ---
EXAMINATION TYPE: XR chest 1V portable DATE OF EXAM: 02/24/2020 COMPARISON: 02/24/2020 INDICATION: Line adjustment TECHNIQUE: Single frontal view of the chest is obtained. FINDINGS: The heart size is normal. The pulmonary vasculature is normal. Left lung infiltrate appears improved. Endotracheal tube tip is stable in position PICC line is been adjusted and has tip located within the distal superior vena cava right atrial junc tion. IMPRESSION: 1. PICC line tip in distal superior vena cava right atrial junction region. 2. Slight improvement of infiltrates in the left lung
[2020-02-24] MEDS: METOPROLOL TARTRATE 50 MG TAB PO SCH (15:35)
--- NOTE | 2020-02-24 15:46 | IR ---
PICC LINE PLACEMENT: HISTORY: TPN PROCEDURE: Ultrasound guidance of PICC line placement. DOCTOR OF PODIATRY: Dr. Tesfaye. COMPLICATIONS: None ANESTHESIA: 1. 1% Lidocaine locally. FINDINGS/TECHNIQUE: The procedure was explained to the patient. The risks, complications, benefits and alternatives were discussed and any questions were answered. Informed consent was obtained. The patient was placed supine on the fluoroscopic table and prepped and draped in the usual sterile fash ion. Utilizing a 21 gauge needle and sonographic guidance, access in the right cephalic vein was ac hieved and there is placement of a 0.018 guidewire. The vein is patent. A 5-F. sheath was placed ov er the guidewire. The guidewire and dilator were removed and a 5-F. Double lumen PICC line was place d through the sheath with the chest x-ray confirming the tip at the level of the SVC. The sheath was removed, the catheter was flushed and sutured into position. The patient was stable throughout the procedure and remained stable upon discharge from the Department of Radiology. The vein puncture was patent under ultrasound. A paz scale image was obtained to document patency of the vein punctured. All elements of the maximal barrier technique were utilized. IMPRESSION: 1. Successful PICC line placement under ultrasound performed bedside within the ICU.
[2020-02-24 17:02] LABS: Glucose,Whole Blood 128 mg/dL (75-99)
[2020-02-24] MEDS ORDERED: FUROSEMIDE 10 MG/ML 10 ML VIAL IV STA (19:46)
[2020-02-24 22:14] LABS: Glucose,Whole Blood 145 mg/dL (75-99)
[2020-02-24] MEDS: INSULIN DETEMIR (LEVEMIR) 100 UNIT/ML SYR SQ SCH (22:25)
[2020-02-24] MEDS: HEPARIN SODIUM,PORCINE 5,000 UNIT/ML 1 ML VIAL SQ SCH (22:27)
[2020-02-24] MEDS: CEFEPIME 1 GM in SODIUM CHLORIDE 0.9% 50 ML IVPB SCH (22:28)
[2020-02-24 23:28] LABS: Glucose,Whole Blood 146 mg/dL (75-99)
[2020-02-25 03:57] LABS: Magnesium 2.1 mg/dL (1.6-2.3); Phosphorus 4.7 mg/dL (2.5-4.5); Potassium 4.4 mmol/L (3.5-5.1)
[2020-02-25 04:27] LABS: Anisocytosis Slight; HGB 7.2 gm/dL (11.4-16.0); Hypochromasia Marked; MCH 29.3 pg (25.0-35.0); MCHC 30.1 g/dL (31.0-37.0); MCV 97.4 fL (80.0-100.0); Macrocytosis Slight; Mean Platelet Volume 7.9; Platelet Count 214 k/uL (150-450); Poikilocytosis Moderate; RBC 2.46 m/uL (3.80-5.40); RDW 16.3 % (11.5-15.5); WBC 20.2 k/uL (3.8-10.6)
[2020-02-25 05:04] LABS: ABG Base Excess 0.8 mmol/L; ABG HCO3 24 mmol/L (21-25); ABG PCO2 32 mmHg (35-45); ABG PH 7.49 (7.35-7.45); ABG PO2 166 mmHg (83-108); ABG TCO2 25 mmol/L (19-24); Allen Test Performed? Yes
[2020-02-25 05:49] LABS: Band Neutrophils % 2 %; Neutrophils % (M) 94 %; Nucleated Red Blood Cells 0 /100 WBC (0-0); Polychromasia Present; Total Cells Counted 100
[2020-02-25] MEDS: INSULIN ASPART (NovoLOG) 100 UNIT/ML VIAL SQ SCH ×6 (05:58→17:23)
--- NOTE | 2020-02-25 06:48 | XR ---
EXAMINATION TYPE: XR chest 1V portable DATE OF EXAM: 02/25/2020 CLINICAL HISTORY: Difficulty breathing progress study. TECHNIQUE: Single AP portable upright view of the chest is obtained. COMPARISON: Chest x-ray from one day earlier and older studies FINDINGS: Stable right-sided PICC line and endotracheal tube. Cardiac silhouette size is stable and upper limits of normal with atherosclerotic aorta. Background c hronic parenchymal change with multifocal left lung opacities including basilar opacity silhouetting left hemidiaphragm. There is patchy right basilar atelectasis and/or infiltrate. Advanced degenerativ e change bilateral glenohumeral joints. IMPRESSION: Chronic parenchymal changes with multifocal left lung acute infiltrates redemonstrated. N o significant change from most recent x-ray.
[2020-02-25] MEDS: SODIUM CHLORIDE 0.9% 1,000 ML IV SCH ×2 (07:22→17:21)
[2020-02-25] MEDS: CHLORHEXIDINE GLUCONATE 15 ML CUP MUCOUS MEM SCH ×2 (08:50→21:29)
[2020-02-25] MEDS: METOPROLOL TARTRATE 50 MG TAB PO SCH ×2 (08:51→18:15)
[2020-02-25] MEDS: FAMOTIDINE 20 MG/2 ML VIAL IV SCH (08:51)
[2020-02-25] MEDS: ASCORBIC ACID 500 MG TAB PO SCH ×2 (08:51→21:40)
[2020-02-25] MEDS: CHOLECALCIFEROL 1,000 UNIT TAB PO SCH (08:51)
[2020-02-25] MEDS: ZINC SULFATE 220 MG CAP PO SCH (08:51)
[2020-02-25] MEDS: HEPARIN SODIUM,PORCINE 5,000 UNIT/ML 1 ML VIAL SQ SCH ×2 (08:51→21:40)
[2020-02-25] MEDS: MULTIVITAMINS, THERA 1 EACH TAB PO SCH (08:51)
[2020-02-25] MEDS: CEFEPIME 1 GM in SODIUM CHLORIDE 0.9% 50 ML IVPB SCH ×2 (09:48→21:49)
[2020-02-25] MEDS ORDERED: FUROSEMIDE 10 MG/ML 4 ML VIAL IV STA (10:27)
--- NOTE | 2020-02-25 11:01 | P.PN ---
Subjective Patient is seen in follow-up for chronic kidney disease. Patient has chronic kidney disease stage IIIB secondary to nephrosclerosis. Renal function stable. Hemoglobin stable at 7.2. Nonoliguric. Intubated. On 45% FiO2. Receiving tube feeds. Vital signs are stable. General: The patient appeared well nourished and normally developed. HEENT: Head exam is unremarkable. Neck is without jugular venous distension. LUNGS: Breath sounds decreased. HEART: Rate and Rhythm are regular. ABDOMEN: Soft. No gross distention noted. EXTREMITITES: 2+ edema. Objective - Vital Signs Vital signs: Vital Signs Temp 97.9 F 02/25/20 08:00 Pulse 57 L 02/25/20 10:00 Resp 18 02/25/20 10:00 BP 114/78 02/25/20 10:00 Pulse Ox 100 02/25/20 10:00 Intake & Output 02/24/20 02/25/20 02/25/20 18:59 06:59 18:59 Intake Total 3010.000 1645.81 374.444 Output Total 255 920 365 Balance 2755.000 725.81 9.444 Weight 98.2 kg 102.1 kg Intake: IV 760 770 265 Albumin Human 25% 50 ml 150 In Empty Bag 1 bag @ 50 mls/hr IVPB Q1H [facility] Rx#: [id number] Cefepime 1 gm In Sodium 50 Chloride 0.9% 50 ml @ 100 mls/hr IVPB ONCE ONE Rx# :[id number] Sodium Chloride 0.9% 1, 560 770 265 000 ml @ 70 mls/hr IV . [id number] [facility] Rx#:[id number] Intake, IV Titration 2250.000 175.81 69.444 Amount Cefepime 1 gm In Sodium 50 Chloride 0.9% 50 ml @ 100 mls/hr IVPB ONCE ONE Rx# :[id number] Cefepime 1 gm In Sodium 50 50 Chloride 0.9% 50 ml @ 12. 5 mls/hr IVPB Q12HR [facility] Rx#:[id number] Sodium Chloride 0.9% 2, 2050 000 ml @ 999 mls/hr IV . Q2H1M ONE Rx#:[id number] propofoL 1,000 mg In 100.000 175.81 19.444 Empty Bag 1 bag @ Titrate IV .Q0M [facility] Rx#: [id number] Tube Feeding 150 40 Blood Product 460 Rc As-1 Unit 310 [id number] Other 90 Output: Urine 255 920 365 Other: Voiding Method Indwelling Catheter Indwelling Catheter Indwelling Catheter - Labs CBC & Chem 7: 02/25/20 03:20 02/25/20 03:20 Labs: Abnormal Lab Results - Last 24 Hours (Table) 02/24/20 02/24/20 02/24/20 Range/Units 11:00 15:05 17:02 WBC (3.8-10.6) k/uL RBC (3.80-5.40) m/uL Hgb (11.4-16.0) gm/dL Hct (34.0-46.0) % MCHC (31.0-37.0) g/dL RDW (11.5-15.5) % Neutrophils # (Manual) (1.3-7.7) k/uL Lymphocytes # (Manual) (1.0-4.8) k/uL ABG pH (7.35-7.45) ABG pCO2 (35-45) mmHg ABG pO2 (83-108) mmHg ABG Total CO2 (19-24) mmol/L ABG O2 Saturation (94-97) % Chloride (98-107) mmol/L BUN (7-17) mg/dL Creatinine (0.52-1.04) mg/dL POC Glucose (mg/dL) 168 H 128 H (75-99) mg/dL Calcium (8.4-10.2) mg/dL Phosphorus (2.5-4.5) mg/dL Crossmatch See Detail 02/24/20 02/24/20 02/25/20 Range/Units 22:12 23:17 03:20 WBC 20.2 H (3.8-10.6) k/uL RBC 2.46 L (3.80-5.40) m/uL Hgb 7.2 L (11.4-16.0) gm/dL Hct 24.0 L (34.0-46.0) % MCHC 30.1 L (31.0-37.0) g/dL RDW 16.3 H (11.5-15.5) % Neutrophils # (Manual) 19.30 H (1.3-7.7) k/uL Lymphocytes # (Manual) 0.40 L (1.0-4.8) k/uL ABG pH (7.35-7.45) ABG pCO2 (35-45) mmHg ABG pO2 (83-108) mmHg ABG Total CO2 (19-24) mmol/L ABG O2 Saturation (94-97) % Chloride (98-107) mmol/L BUN (7-17) mg/dL Creatinine (0.52-1.04) mg/dL POC Glucose (mg/dL) 145 H 146 H (75-99) mg/dL Calcium (8.4-10.2) mg/dL Phosphorus (2.5-4.5) mg/dL Crossmatch 02/25/20 02/25/20 Range/Units 03:20 05:05 WBC (3.8-10.6) k/uL RBC (3.80-5.40) m/uL Hgb (11.4-16.0) gm/dL Hct (34.0-46.0) % MCHC (31.0-37.0) g/dL RDW (11.5-15.5) % Neutrophils # (Manual) (1.3-7.7) k/uL Lymphocytes # (Manual) (1.0-4.8) k/uL ABG pH 7.49 H (7.35-7.45) ABG pCO2 32 L (35-45) mmHg ABG pO2 166 H (83-108) mmHg ABG Total CO2 25 H (19-24) mmol/L ABG O2 Saturation 100.0 H (94-97) % Chloride 113 H (98-107) mmol/L BUN 79 H (7-17) mg/dL Creatinine 1.49 H (0.52-1.04) mg/dL POC Glucose (mg/dL) (75-99) mg/dL Calcium 8.0 L (8.4-10.2) mg/dL Phosphorus 4.7 H (2.5-4.5) mg/dL Crossmatch Microbiology - Last 24 Hours (Table) 02/24/20 06:24 Urine Culture - Preliminary Urine,Catheterized Gram Neg Bacilli Assessment and Plan Plan: Assessment: 1. Chronic kidney disease stage IIIB secondary to nephrosclerosis with baseline creatinine near 1.5. No hydronephrosis noted on kidney ultrasound done in January 2020. Left kidney wasn't visualized. Right kidney was small in size. 2. Severe sepsis maintained on antibiotics. Urine culture positive for gram- negative bacilli. 3. Anemia of chronic kidney disease. No active bleeding noted. She does have history of GI bleed. Status post blood transfusion this admission. On Aranesp. 4. Generalized edema partially due to hypoalbuminemia causing third spacing. 5. Acute hypoxic history failure. Currently intubated. 6. Diabetes mellitus. 7. UTI with culture positive for gram-negative bacilli. Plan: Hep-Lock IV fluids. Receiving tube feeds at goal. 25 g IV albumin 2 doses given 02/24/2020. Lasix 40 mg IV once today. Avoid nephrotoxins. Follow-up cultures. Continue to monitor renal function and urine output. Wean FiO2.
[2020-02-25 12:41] LABS: Glucose,Whole Blood 107 mg/dL (75-99)
--- NOTE | 2020-02-25 13:00 | P.PN ---
Subjective 75-year-old female was transferred from a [facility] for GI bleed. Patient had a history of GI bleed in the past patient underwent extensive workup there is no evidence of active GI bleed at this time. Although patient apparently became appended later yesterday at the other hospital and patient has to be intubated. Patient started having fevers does have significantly abnormal looking urine patient does have a Pablo catheter which will be replaced and the patient has a pseudomonas in the urine patient was initially on Rocephin which i s being changed to cefepime patient was recently diagnosed with colon with had a long the hospitalization stay here after which patient was subsequently discharged to a facility where she stayed only for few hours after that she ended up in the hospital for possible GI bleed. Her recent Covid was negative. Patient is presently intubated and sedated. 02/25/2020 Patient's hemoglobin remained stable patient creatinine is fairly stable at around 1.4 patient is off sedation patient will undergo weaning trial today and possible extubation after that. Patient still has leukocytosis patient urine cultures here are showing gram-negative bacilli patient does have some pneumonia and urinary tract infection for which patient is on cefepime which will be continued. Review of systems: Unable to obtain due to her clinical condition All inpatient medications were reviewed and appropriate changes in these medications as dictated in the interval history and assessment and plan. Objective - Vital Signs Vital signs: Vital Signs Temp 98.4 F 02/25/20 12:00 Pulse 58 L 02/25/20 12:00 Resp 18 02/25/20 12:00 BP 129/62 02/25/20 12:00 Pulse Ox 100 02/25/20 12:00 Intake & Output 02/24/20 02/25/20 02/25/20 18:59 06:59 18:59 Intake Total 3010.000 1645.81 394.354 Output Total 255 920 365 Balance 2755.000 725.81 29.354 Weight 98.2 kg 102.1 kg Intake: IV 760 770 265 Albumin Human 25% 50 ml 150 In Empty Bag 1 bag @ 50 mls/hr IVPB Q1H [facility]CLUDE 234 BEDS AT THE [facility] Rx#: [id number] Cefepime 1 gm In Sodium 50 Chloride 0.9% 50 ml @ 100 mls/hr IVPB ONCE ONE Rx# :[id number] Sodium Chloride 0.9% 1, 560 770 265 000 ml @ 70 mls/hr IV . [id number] [facility]S INCLUDE 234 BEDS AT THE [facility] Rx#:[id number] Intake, IV Titration 2250.000 175.81 89.354 Amount Cefepime 1 gm In Sodium 50 Chloride 0.9% 50 ml @ 100 mls/hr IVPB ONCE ONE Rx# :[id number] Cefepime 1 gm In Sodium 50 50 Chloride 0.9% 50 ml @ 12. 5 mls/hr IVPB Q12HR [facility]S INCLUDE 234 BEDS AT THE [facility] Rx#:[id number] Sodium Chloride 0.9% 2, 2050 000 ml @ 999 mls/hr IV . Q2H1M ONE Rx#:[id number] propofoL 1,000 mg In 100.000 175.81 39.354 Empty Bag 1 bag @ Titrate IV .Q0M [facility]S INCLUDE 234 BEDS AT THE [facility] Rx#: [id number] Tube Feeding 150 40 Blood Product 460 Rc As-1 Unit 310 [id number] Other 90 Output: Urine 255 920 365 Other: Voiding Method Indwelling Catheter Indwelling Catheter Indwelling Catheter - Exam PHYSICAL EXAMINATION: GENERAL: Patient is intubated , patient is off sedation awake following commands HEENT: Pupils are round and equally reacting to light. EOMI. No scleral icterus. No conjunctival pallor. Normocephalic, atraumatic. No pharyngeal erythema. No thyromegaly. CARDIOVASCULAR: S1 and S2 present. No murmurs, rubs, or gallops. PULMONARY: Chest is clear to auscultation, no wheezing or crackles. ABDOMEN: Soft, nontender, nondistended, normoactive bowel sounds. No palpable organomegaly. Patient has a PEG tube in place MUSCULOSKELETAL: No joint swelling or deformity. EXTREMITIES: No cyanosis, clubbing, bilateral upper limb edema significant on the left upper arm. NEUROLOGICAL: As mentioned in general SKIN: No rashes. - Labs CBC & Chem 7: 02/25/20 03:20 02/25/20 03:20 Labs: Abnormal Lab Results - Last 24 Hours (Table) 02/24/20 02/24/20 02/24/20 Range/Units 15:05 17:02 22:12 WBC (3.8-10.6) k/uL RBC (3.80-5.40) m/uL Hgb (11.4-16.0) gm/dL Hct (34.0-46.0) % MCHC (31.0-37.0) g/dL RDW (11.5-15.5) % Neutrophils # (Manual) (1.3-7.7) k/uL Lymphocytes # (Manual) (1.0-4.8) k/uL ABG pH (7.35-7.45) ABG pCO2 (35-45) mmHg ABG pO2 (83-108) mmHg ABG Total CO2 (19-24) mmol/L ABG O2 Saturation (94-97) % Chloride (98-107) mmol/L BUN (7-17) mg/dL Creatinine (0.52-1.04) mg/dL POC Glucose (mg/dL) 128 H 145 H (75-99) mg/dL Calcium (8.4-10.2) mg/dL Phosphorus (2.5-4.5) mg/dL Crossmatch See Detail 02/24/20 02/25/20 02/25/20 Range/Units 23:17 03:20 03:20 WBC 20.2 H (3.8-10.6) k/uL RBC 2.46 L (3.80-5.40) m/uL Hgb 7.2 L (11.4-16.0) gm/dL Hct 24.0 L (34.0-46.0) % MCHC 30.1 L (31.0-37.0) g/dL RDW 16.3 H (11.5-15.5) % Neutrophils # (Manual) 19.30 H (1.3-7.7) k/uL Lymphocytes # (Manual) 0.40 L (1.0-4.8) k/uL ABG pH (7.35-7.45) ABG pCO2 (35-45) mmHg ABG pO2 (83-108) mmHg ABG Total CO2 (19-24) mmol/L ABG O2 Saturation (94-97) % Chloride 113 H (98-107) mmol/L BUN 79 H (7-17) mg/dL Creatinine 1.49 H (0.52-1.04) mg/dL POC Glucose (mg/dL) 146 H (75-99) mg/dL Calcium 8.0 L (8.4-10.2) mg/dL Phosphorus 4.7 H (2.5-4.5) mg/dL Crossmatch 02/25/20 02/25/20 Range/Units 05:05 12:39 WBC (3.8-10.6) k/uL RBC (3.80-5.40) m/uL Hgb (11.4-16.0) gm/dL Hct (34.0-46.0) % MCHC (31.0-37.0) g/dL RDW (11.5-15.5) % Neutrophils # (Manual) (1.3-7.7) k/uL Lymphocytes # (Manual) (1.0-4.8) k/uL ABG pH 7.49 H (7.35-7.45) ABG pCO2 32 L (35-45) mmHg ABG pO2 166 H (83-108) mmHg ABG Total CO2 25 H (19-24) mmol/L ABG O2 Saturation 100.0 H (94-97) % Chloride (98-107) mmol/L BUN (7-17) mg/dL Creatinine (0.52-1.04) mg/dL POC Glucose (mg/dL) 107 H (75-99) mg/dL Calcium (8.4-10.2) mg/dL Phosphorus (2.5-4.5) mg/dL Crossmatch Microbiology - Last 24 Hours (Table) 02/24/20 06:24 Urine Culture - Preliminary Urine,Catheterized Gram Neg Bacilli Assessment and Plan Plan: -Acute hypoxic respiratory failure: Patient is presently intubated respiratory failure is secondary to sepsis and encephalopathy. -Toxic encephalopathy: Secondary to sepsis most probably from urinary tract infection Pablo catheter will be changed patient has Pseudomonas in the urine patient is presently on cefepime -Pseudomonal UTI -Sepsis secondary to UTI -Chronic kidney disease: Nephrology is following the patient IV fluids as per nephrology. Patient blood pressure is low normal at this time. Patient is also receiving albumin aspirin nephrology -Type 2 diabetes mellitus. -Recent Covid 19 infection. -Hyperlipidemia -Dysphagia for which patient has a PEG tube -DVT prophylaxis: Subcutaneous heparin
--- NOTE | 2020-02-25 13:22 | P.PN ---
Subjective Progress Note Date: 02/25/20 Principal diagnosis: Acute hypoxic respiratory failure and acute healthcare acquired pneumonia This is a 75-year-old female, familiar to my service, patient was recently at [facility], and she was initially admitted on 01/05/20. She was eventually discharged to a rehab facility on 02/19/20. Patient had many medical problems during her last admission included acute GI bleeding, acute on chronic diastolic congestive heart failure, acute covid 19 pneumonitis, H influenza pneumonia, and recurrent urinary tract infection. chronic kidney disease, hypertension, hypoxic respiratory failure secondary to pneumonia, obesity with BMI of 35.9, patient required PEG tube placement while she was in the hospital. She was seen by many consultants during her last hospital admission. Patient was eventually discharged to rehab facility on 02/19/20. However the patient was in the rehab facility for less than one day, apparently she developed worsening mental status, worsening shortness of breath. Hence the patient was transferred to [facility] in [facility], admitted for few days, and she continued to worsen, there was a concern about ongoing GI blood losses and hemoglobin. There is also a concern about her worsening pulmonary status, patient was transferred to [facility] and this consult was initiated. Apparently the day of her transferred to [facility], patient was intubated and required mechanical ventilation. Upon my evaluation the patient today in the ICU, patient is on assist control rate of 14, tidal volume is 480, FiO2 45% and PEEP of 5. ABG showed a pO2 of 130 pCO2 of 33 pH of 7.47. After reviewing the ABG, her ventilator settings were changed to tolerate volume is 450 assist-control rate 18 and kept her on 45% FiO2. Chest x-ray showed minimal bilateral infiltrates. Urinalysis is consistent with pyuria and bacteriuria. Hemoglobin is noted to be 7.3. WBC count is 19.9. And BUN is 78 creatinine 1.47. Patient was empirically started on cefepime for presumptive urinary tract infection and pneumonia patient had previous pseudomonal urinary tract infection. Not much history could be obtained from the patient most of the information obtained so far is from the chart Patient was reevaluated today on 02/25/2020, remains in the ICU, intubated and mechanically ventilated. She is on assist control rate of 18 tidal volume 455- 45% PEEP of 5. ABG showed a pO2 of 166 pCO2 of 32 pH of 7.49. On propofol at 30 mcg/kg/m, IV fluid 0.9 normal saline at 65 mL per hour. Remains on enteral feeding. She is also on cefepime empirically for presumptive pneumonia and urinary tract infection. We'll culture so far is showing gram-negative bacilli. Labs today were reviewed, WBC count is 20.2 hemoglobin is 7.2. Basic metabolic profile is unremarkable except for BUN of 79 creatinine of 1.49. Chest x-ray showed multifocal infiltrates bilaterally. Objective - Vital Signs Vital signs: Vital Signs Temp 98.4 F 02/25/20 12:00 Pulse 64 02/25/20 13:00 Resp 16 02/25/20 13:00 BP 129/64 02/25/20 13:00 Pulse Ox 100 02/25/20 13:00 Intake & Output 02/24/20 02/25/20 02/25/20 18:59 06:59 18:59 Intake Total 3010.000 1645.81 414.354 Output Total 255 920 365 Balance 2755.000 725.81 49.354 Weight 98.2 kg 102.1 kg Intake: IV 760 770 265 Albumin Human 25% 50 ml 150 In Empty Bag 1 bag @ 50 mls/hr IVPB Q1H [facility] Rx#: [id number] Cefepime 1 gm In Sodium 50 Chloride 0.9% 50 ml @ 100 mls/hr IVPB ONCE ONE Rx# :[id number] Sodium Chloride 0.9% 1, 560 770 265 000 ml @ 70 mls/hr IV . [id number] [facility] Rx#:[id number] Intake, IV Titration 2250.000 175.81 89.354 Amount Cefepime 1 gm In Sodium 50 Chloride 0.9% 50 ml @ 100 mls/hr IVPB ONCE ONE Rx# :[id number] Cefepime 1 gm In Sodium 50 50 Chloride 0.9% 50 ml @ 12. 5 mls/hr IVPB Q12HR [facility] Rx#:[id number] Sodium Chloride 0.9% 2, 2050 000 ml @ 999 mls/hr IV . Q2H1M ONE Rx#:[id number] propofoL 1,000 mg In 100.000 175.81 39.354 Empty Bag 1 bag @ Titrate IV .Q0M [facility] Rx#: [id number] Tube Feeding 150 60 Blood Product 460 Rc As-1 Unit 310 [id number] Other 90 Output: Urine 255 920 365 Other: Voiding Method Indwelling Catheter Indwelling Catheter Indwelling Catheter - Exam Physical Exam: Revealed a 75-year-old female, obese, on mechanical ventilation. Head: Atraumatic, normocephalic. Endotracheal tube is intact. HEENT:[Neck is supple.] [No neck masses.] [No thyromegaly.] [No JVD.] Chest: [Diminished breath sounds and crackles at the bases. Cardiac Exam: [Normal S1 and S2, no S3 gallop, no murmur.] Abdomen: [Soft, nontender, no megaly, no rebound, no guarding, normal bowel sounds.] PEG tube is noted and seems to be intact. Extremities: [No clubbing, 1+ bipedal edema, no cyanosis.] Neurological Exam: Not be assessed, patient is on propofol drip. Psychiatric: Could not assess. Skin: No rashes. - Labs CBC & Chem 7: 02/25/20 03:20 02/25/20 03:20 Labs: Abnormal Lab Results - Last 24 Hours (Table) 02/24/20 02/24/20 02/24/20 Range/Units 15:05 17:02 22:12 WBC (3.8-10.6) k/uL RBC (3.80-5.40) m/uL Hgb (11.4-16.0) gm/dL Hct (34.0-46.0) % MCHC (31.0-37.0) g/dL RDW (11.5-15.5) % Neutrophils # (Manual) (1.3-7.7) k/uL Lymphocytes # (Manual) (1.0-4.8) k/uL ABG pH (7.35-7.45) ABG pCO2 (35-45) mmHg ABG pO2 (83-108) mmHg ABG Total CO2 (19-24) mmol/L ABG O2 Saturation (94-97) % Chloride (98-107) mmol/L BUN (7-17) mg/dL Creatinine (0.52-1.04) mg/dL POC Glucose (mg/dL) 128 H 145 H (75-99) mg/dL Calcium (8.4-10.2) mg/dL Phosphorus (2.5-4.5) mg/dL Crossmatch See Detail 02/24/20 02/25/20 02/25/20 Range/Units 23:17 03:20 03:20 WBC 20.2 H (3.8-10.6) k/uL RBC 2.46 L (3.80-5.40) m/uL Hgb 7.2 L (11.4-16.0) gm/dL Hct 24.0 L (34.0-46.0) % MCHC 30.1 L (31.0-37.0) g/dL RDW 16.3 H (11.5-15.5) % Neutrophils # (Manual) 19.30 H (1.3-7.7) k/uL Lymphocytes # (Manual) 0.40 L (1.0-4.8) k/uL ABG pH (7.35-7.45) ABG pCO2 (35-45) mmHg ABG pO2 (83-108) mmHg ABG Total CO2 (19-24) mmol/L ABG O2 Saturation (94-97) % Chloride 113 H (98-107) mmol/L BUN 79 H (7-17) mg/dL Creatinine 1.49 H (0.52-1.04) mg/dL POC Glucose (mg/dL) 146 H (75-99) mg/dL Calcium 8.0 L (8.4-10.2) mg/dL Phosphorus 4.7 H (2.5-4.5) mg/dL Crossmatch 02/25/20 02/25/20 Range/Units 05:05 12:39 WBC (3.8-10.6) k/uL RBC (3.80-5.40) m/uL Hgb (11.4-16.0) gm/dL Hct (34.0-46.0) % MCHC (31.0-37.0) g/dL RDW (11.5-15.5) % Neutrophils # (Manual) (1.3-7.7) k/uL Lymphocytes # (Manual) (1.0-4.8) k/uL ABG pH 7.49 H (7.35-7.45) ABG pCO2 32 L (35-45) mmHg ABG pO2 166 H (83-108) mmHg ABG Total CO2 25 H (19-24) mmol/L ABG O2 Saturation 100.0 H (94-97) % Chloride (98-107) mmol/L BUN (7-17) mg/dL Creatinine (0.52-1.04) mg/dL POC Glucose (mg/dL) 107 H (75-99) mg/dL Calcium (8.4-10.2) mg/dL Phosphorus (2.5-4.5) mg/dL Crossmatch Microbiology - Last 24 Hours (Table) 02/24/20 06:24 Urine Culture - Preliminary Urine,Catheterized Gram Neg Bacilli Assessment and Plan Assessment: Impression: Acute hypoxic respiratory failure, secondary to pneumonia as noted below. Acute healthcare acquired pneumonia Acute metabolic encephalopathy Acute urinary tract infection most likely secondary to pseudomonas Chronic kidney disease Type 2 diabetes. Recent history of cough related 19 infection and pneumonia Dyslipidemia History of dysphagia requiring PEG tube placement. Obesity with BMI of 35.9. History of chronic diastolic congestive heart failure History of chronic GI blood losses and positive Hemoccult stools, exact etiology is not clear. Yet to be investigated by gastroenterology. Chronic anemia secondary to chronic GI blood losses. And secondary to chronic renal failure. Generalized edema secondary to hypoalbuminemia. Severe sepsis, likely sources would be urine and lungs. Cultures are pending. Recommendation: Continue ventilatory support. However the patient will be given a trial of pressure support and CPAP today, and if tolerated by accident the patient to BiPAP. Nutritional support via PEG tube. GI and DVT prophylaxis. Nephrology is following the patient for chronic kidney disease of stage IIIB. Antibiotics for presumptive pseudomonal infection. Monitor sugars and addressed accordingly. Continue to monitor closely in the ICU. Prognosis is extremely poor and guarded. We'll continue to follow. Critical care time is over 30 minutes Time with Patient: Greater than 30
[2020-02-25] MEDS: THIAMINE 100 MG TAB PO SCH (14:32)
[2020-02-25] MEDS: FOLIC ACID 1 MG TAB PO SCH (14:32)
[2020-02-25 17:26] LABS: Glucose,Whole Blood 110 mg/dL (75-99)
[2020-02-25] MEDS: INSULIN DETEMIR (LEVEMIR) 100 UNIT/ML SYR SQ SCH (21:40)
[2020-02-25 23:30] LABS: Glucose,Whole Blood 122 mg/dL (75-99)
[2020-02-26] MEDS: INSULIN ASPART (NovoLOG) 100 UNIT/ML VIAL SQ SCH ×9 (00:22→22:44)
[2020-02-26 04:45] LABS: Anisocytosis Slight; HCT 28.8 % (34.0-46.0); Hypochromasia Moderate; MCH 29.4 pg (25.0-35.0); MCV 94.8 fL (80.0-100.0); Mean Platelet Volume 7.9; Platelet Count 264 k/uL (150-450); Poikilocytosis Slight; RBC 3.04 m/uL (3.80-5.40); RDW 16.5 % (11.5-15.5); WBC 19.7 k/uL (3.8-10.6)
[2020-02-26 04:55] LABS: HGB 8.9 gm/dL (11.4-16.0)
[2020-02-26 05:04] LABS: Calcium 7.9 mg/dL (8.4-10.2); Potassium 3.9 mmol/L (3.5-5.1)
[2020-02-26 05:30] LABS: Band Neutrophils % 3 %; Eosinophils # (M) 0.39 k/uL (0-0.7); Lymphocytes # (M) 0.99 k/uL (1.0-4.8); Metamyelocytes # (M) 0.39 k/uL (0); Metamyelocytes % 2 %; Neutrophils % (M) 87 %; Nucleated Red Blood Cells 0 /100 WBC (0-0); Total Cells Counted 200
[2020-02-26] MEDS ORDERED: POTASSIUM BICARBONATE/CIT AC 20 MEQ TABLET.EFF PO ONE (05:41)
[2020-02-26 06:34] LABS: Glucose,Whole Blood 116 mg/dL (75-99)
--- NOTE | 2020-02-26 07:16 | XR ---
EXAMINATION TYPE: XR chest 1V portable DATE OF EXAM: 02/26/2020 COMPARISON: 02/25/2020 INDICATION: Tube placement TECHNIQUE: Single frontal view of the chest is obtained. FINDINGS: The heart size is upper limits of normal. The pulmonary vasculature is normal. Small left pleural fluid is present. Mild scattered infiltrates are present in the left lung and at t he right base. There may be slight improvement over the interval. PICC line enters on the right with the tip in the right atrium. IMPRESSION: 1. Small left pleural effusion is present. 2. Scattered bilateral lung infiltrates
[2020-02-26] MEDS ORDERED: FAMOTIDINE 20 MG/2 ML VIAL IV SCH (09:00)
[2020-02-26] MEDS: CEFEPIME 1 GM in SODIUM CHLORIDE 0.9% 50 ML IVPB SCH ×2 (09:44→23:47)
[2020-02-26] MEDS: HEPARIN SODIUM,PORCINE 5,000 UNIT/ML 1 ML VIAL SQ SCH ×2 (09:45→22:03)
[2020-02-26] MEDS: ZINC SULFATE 220 MG CAP PO SCH (09:45)
[2020-02-26] MEDS: METOPROLOL TARTRATE 50 MG TAB PO SCH ×2 (09:45→16:43)
[2020-02-26] MEDS: CHOLECALCIFEROL 1,000 UNIT TAB PO SCH (09:45)
[2020-02-26] MEDS: MULTIVITAMINS, THERA 1 EACH TAB PO SCH (09:46)
[2020-02-26] MEDS: ASCORBIC ACID 500 MG TAB PO SCH ×2 (09:46→22:03)
[2020-02-26] MEDS ORDERED: FUROSEMIDE 10 MG/ML 4 ML VIAL IV STA (10:27)
--- NOTE | 2020-02-26 10:28 | P.PN ---
Subjective Patient is seen in follow-up for chronic kidney disease. Patient has chronic kidney disease stage IIIB secondary to nephrosclerosis. Renal function slightly worse from diuresis. Nonoliguric. Currently on room air. Not a reliable historian due to history of dementia. Vital signs are stable. General: The patient appeared well nourished and normally developed. HEENT: Head exam is unremarkable. Neck is without jugular venous distension. LUNGS: Breath sounds decreased. HEART: Rate and Rhythm are regular. ABDOMEN: Soft. No gross distention noted. EXTREMITITES: 1+ edema. Objective - Vital Signs Vital signs: Vital Signs Temp 99.3 F 02/26/20 04:00 Pulse 90 02/26/20 07:00 Resp 17 02/26/20 07:00 BP 118/75 02/26/20 07:00 Pulse Ox 95 02/26/20 07:00 Intake & Output 02/25/20 02/26/20 02/26/20 18:59 06:59 18:59 Intake Total 624.354 620 60 Output Total 1461 1010 45 Balance -836.646 -390 15 Weight 99.3 kg Intake: IV 445 60 20 Sodium Chloride 0.9% 1, 445 60 20 000 ml @ 20 mls/hr IV . Q24H ANDREA Rx#:[id number] Intake, IV Titration 89.354 Amount Cefepime 1 gm In Sodium 50 Chloride 0.9% 50 ml @ 12. 5 mls/hr IVPB Q12HR ANDREA Rx#:[id number] propofoL 1,000 mg In 39.354 Empty Bag 1 bag @ Titrate IV .Q0M ANDREA Rx#: [id number] Tube Feeding 90 470 40 Other 90 Output: Urine 1461 1010 45 Other: Voiding Method Indwelling Catheter Indwelling Catheter # Bowel Movements 1 - Labs CBC & Chem 7: 02/26/20 03:43 02/26/20 03:43 Labs: Abnormal Lab Results - Last 24 Hours (Table) 02/25/20 02/25/20 02/25/20 Range/Units 12:39 17:22 23:29 WBC (3.8-10.6) k/uL RBC (3.80-5.40) m/uL Hgb (11.4-16.0) gm/dL Hct (34.0-46.0) % RDW (11.5-15.5) % Neutrophils # (Manual) (1.3-7.7) k/uL Lymphocytes # (Manual) (1.0-4.8) k/uL Metamyelocytes # (Man) (0) k/uL Chloride (98-107) mmol/L BUN (7-17) mg/dL Creatinine (0.52-1.04) mg/dL Glucose (74-99) mg/dL POC Glucose (mg/dL) 107 H 110 H 122 H (75-99) mg/dL Calcium (8.4-10.2) mg/dL 02/26/20 02/26/20 02/26/20 Range/Units 03:43 03:43 06:32 WBC 19.7 H (3.8-10.6) k/uL RBC 3.04 L (3.80-5.40) m/uL Hgb 8.9 L D (11.4-16.0) gm/dL Hct 28.8 L (34.0-46.0) % RDW 16.5 H (11.5-15.5) % Neutrophils # (Manual) 17.70 H (1.3-7.7) k/uL Lymphocytes # (Manual) 0.99 L (1.0-4.8) k/uL Metamyelocytes # (Man) 0.39 H (0) k/uL Chloride 111 H (98-107) mmol/L BUN 81 H (7-17) mg/dL Creatinine 1.61 H (0.52-1.04) mg/dL Glucose 102 H (74-99) mg/dL POC Glucose (mg/dL) 116 H (75-99) mg/dL Calcium 7.9 L (8.4-10.2) mg/dL Microbiology - Last 24 Hours (Table) 02/24/20 06:24 Urine Culture - Final Urine,Catheterized Pseudomonas aeruginosa Assessment and Plan Plan: Assessment: 1. Chronic kidney disease stage IIIB secondary to nephrosclerosis with baseline creatinine near 1.5. No hydronephrosis noted on kidney ultrasound done in January 2020. Left kidney wasn't visualized. Right kidney was small in size. 2. Severe sepsis maintained on antibiotics. Urine culture positive for Pseudomonas. 3. Anemia of chronic kidney disease. No active bleeding noted. She does have history of GI bleed. Status post blood transfusion this admission. On Aranesp. 4. Generalized edema partially due to hypoalbuminemia causing third spacing. I mproved with diuresis. 5. Acute hypoxic history failure. Now on room air. 6. Diabetes mellitus. Plan: Encourage oral intake. 25 g IV albumin 2 doses given 02/24/2020. Repeat Lasix 40 mg IV once today. Avoid nephrotoxins. Continue to monitor renal function and urine output. She will be transferred out of the ICU today. Repeat electrolytes in the morning.
[2020-02-26 11:22] LABS: Glucose,Whole Blood 144 mg/dL (75-99)
[2020-02-26] MEDS ORDERED: IPRATROPIUM-ALBUTEROL 3 ML NEB INHALATION PRN (11:32)
[2020-02-26] MEDS: FOLIC ACID 1 MG TAB PO SCH (11:57)
[2020-02-26] MEDS: THIAMINE 100 MG TAB PO SCH (11:57)
--- NOTE | 2020-02-26 11:59 | P.PN ---
Subjective 75-year-old female was transferred from a [facility] for GI bleed. Patient had a history of GI bleed in the past patient underwent extensive workup there is no evidence of active GI bleed at this time. Although patient apparently became appended later yesterday at the other hospital and patient has to be intubated. Patient started having fevers does have significantly abnormal looking urine patient does have a Pablo catheter which will be replaced and the patient has a pseudomonas in the urine patient was initially on Rocephin which i s being changed to cefepime patient was recently diagnosed with colon with had a long the hospitalization stay here after which patient was subsequently discharged to a facility where she stayed only for few hours after that she ended up in the hospital for possible GI bleed. Her recent Covid was negative. Patient is presently intubated and sedated. 02/25/2020 Patient's hemoglobin remained stable patient creatinine is fairly stable at around 1.4 patient is off sedation patient will undergo weaning trial today and possible extubation after that. Patient still has leukocytosis patient urine cultures here are showing gram-negative bacilli patient does have some pneumonia and urinary tract infection for which patient is on cefepime which will be continued. 02/26/2020 Patient is extubated alert oriented 3. Patient creatinine went up a bit received Lasix yesterday white blood cell count continues to be elevated. Patient has Pseudomonas in the urine intermediate susceptible to cefepime patient had a chronic Pablo catheter which was replaced. We'll repeat the urinalysis again if urine analysis is not significant abnormal patient may not need antibiotics and infectious disease was consulted. Patient has a PICC line in the right arm this probably to come out Constitutional: Denied any fatigue denied any fever. Cardio vascular: denied any chest pain, palpitations Gastrointestinal denied any nausea vomiting Pulmonary: Denied any shortness of breath cough Neurologic denied any new focal deficits All inpatient medications were reviewed and appropriate changes in these medica tions as dictated in the interval history and assessment and plan. Objective - Vital Signs Vital signs: Vital Signs Temp 98.4 F 02/26/20 08:00 Pulse 92 02/26/20 10:00 Resp 21 02/26/20 10:00 BP 120/78 02/26/20 10:00 Pulse Ox 96 02/26/20 10:00 Intake & Output 02/25/20 02/26/20 02/26/20 18:59 06:59 18:59 Intake Total 624.354 620 170 Output Total 1461 1010 190 Balance -836.646 -390 -20 Weight 99.3 kg Intake: IV 445 60 80 Sodium Chloride 0.9% 1, 445 60 80 000 ml @ 20 mls/hr IV . Q24H ANDREA Rx#:[id number] Intake, IV Titration 89.354 50 Amount Cefepime 1 gm In Sodium 50 50 Chloride 0.9% 50 ml @ 12. 5 mls/hr IVPB Q12HR ANDREA Rx#:[id number] propofoL 1,000 mg In 39.354 Empty Bag 1 bag @ Titrate IV .Q0M ANDREA Rx#: [id number] Tube Feeding 90 470 40 Other 90 Output: Urine 1461 1010 190 Other: Voiding Method Indwelling Catheter Indwelling Catheter Indwelling Catheter # Bowel Movements 1 - Exam PHYSICAL EXAMINATION: GENERAL: Awake and alert oriented 3 not in respiratory distress. HEENT: Pupils are round and equally reacting to light. EOMI. No scleral icterus. No conjunctival pallor. Normocephalic, atraumatic. No pharyngeal erythema. No thyromegaly. CARDIOVASCULAR: S1 and S2 present. No murmurs, rubs, or gallops. PULMONARY: Expiratory wheezing on exam ABDOMEN: Soft, nontender, nondistended, normoactive bowel sounds. No palpable organomegaly. Patient has a PEG tube in place MUSCULOSKELETAL: No joint swelling or deformity. EXTREMITIES: No cyanosis, clubbing, bilateral upper limb edema significant on the left upper arm. NEUROLOGICAL: No focal deficits PICC line in the right arm. SKIN: No rashes. - Labs CBC & Chem 7: 02/26/20 03:43 02/26/20 03:43 Labs: Abnormal Lab Results - Last 24 Hours (Table) 02/25/20 02/25/20 02/25/20 Range/Units 12:39 17:22 23:29 WBC (3.8-10.6) k/uL RBC (3.80-5.40) m/uL Hgb (11.4-16.0) gm/dL Hct (34.0-46.0) % RDW (11.5-15.5) % Neutrophils # (Manual) (1.3-7.7) k/uL Lymphocytes # (Manual) (1.0-4.8) k/uL Metamyelocytes # (Man) (0) k/uL Chloride (98-107) mmol/L BUN (7-17) mg/dL Creatinine (0.52-1.04) mg/dL Glucose (74-99) mg/dL POC Glucose (mg/dL) 107 H 110 H 122 H (75-99) mg/dL Calcium (8.4-10.2) mg/dL 02/26/20 02/26/20 02/26/20 Range/Units 03:43 03:43 06:32 WBC 19.7 H (3.8-10.6) k/uL RBC 3.04 L (3.80-5.40) m/uL Hgb 8.9 L D (11.4-16.0) gm/dL Hct 28.8 L (34.0-46.0) % RDW 16.5 H (11.5-15.5) % Neutrophils # (Manual) 17.70 H (1.3-7.7) k/uL Lymphocytes # (Manual) 0.99 L (1.0-4.8) k/uL Metamyelocytes # (Man) 0.39 H (0) k/uL Chloride 111 H (98-107) mmol/L BUN 81 H (7-17) mg/dL Creatinine 1.61 H (0.52-1.04) mg/dL Glucose 102 H (74-99) mg/dL POC Glucose (mg/dL) 116 H (75-99) mg/dL Calcium 7.9 L (8.4-10.2) mg/dL 02/26/20 Range/Units 11:21 WBC (3.8-10.6) k/uL RBC (3.80-5.40) m/uL Hgb (11.4-16.0) gm/dL Hct (34.0-46.0) % RDW (11.5-15.5) % Neutrophils # (Manual) (1.3-7.7) k/uL Lymphocytes # (Manual) (1.0-4.8) k/uL Metamyelocytes # (Man) (0) k/uL Chloride (98-107) mmol/L BUN (7-17) mg/dL Creatinine (0.52-1.04) mg/dL Glucose (74-99) mg/dL POC Glucose (mg/dL) 144 H (75-99) mg/dL Calcium (8.4-10.2) mg/dL Microbiology - Last 24 Hours (Table) 02/24/20 06:24 Urine Culture - Final Urine,Catheterized Pseudomonas aeruginosa Assessment and Plan Plan: -Acute hypoxic respiratory failure: Patient is presently intubated respiratory failure is secondary to sepsis and encephalopathy. Patient was extubated on 02/25/2020 -Toxic encephalopathy: Secondary to sepsis most probably from urinary tract infection Pablo catheter will be changed patient has Pseudomonas in the urine patient is presently on cefepime although patient hasn't remitted susceptibility to cefepime as well as Zosyn. We will repeat urine analysis since the Pablo catheter was replaced patient may or may not need antibiotics we'll make the decision depending on urinalysis results. Infectious disease was consulted. -Pseudomonal UTI -Sepsis secondary to UTI -Chronic kidney disease: Nephrology is following the patient IV fluids as per nephrology. Patient blood pressure is low normal at this time. Patient is also receiving albumin aspirin nephrology -Type 2 diabetes mellitus. -Recent Covid 19 infection. -Hyperlipidemia -Dysphagia for which patient has a PEG tube -DVT prophylaxis: Subcutaneous heparin
[2020-02-26] MEDS: IPRATROPIUM-ALBUTEROL 3 ML NEB INHALATION SCH ×3 (12:04→21:11)
[2020-02-26 12:34] LABS: Appearance,Urine Clear (Clear); Bacteria,Urine Rare /hpf; Bilirubin,Urine Negative (Negative); Blood,Urine Negative (Negative); Color,Urine Light Yellow; Glucose,Urine (UA) Negative (Negative); Ketones,Urine Negative (Negative); Leukocyte Esterase,Urine Moderate (Negative); Mucus,Urine Rare /hpf; Nitrite,Urine Negative (Negative); PH, Urine 5.5 (5.0-8.0); Protein,Urine 1+ (Negative); RBC,Urine 2 /hpf (0-5); Specific Gravity,Urine 1.008 (1.001-1.035); Urobilinogen,Urine <2.0 mg/dL (<2.0); WBC,Urine 26 /hpf (0-5)
--- NOTE | 2020-02-26 13:15 | P.PN ---
Subjective Progress Note Date: 02/26/20 Principal diagnosis: Acute hypoxic respiratory failure and acute healthcare acquired pneumonia This is a 75-year-old female, familiar to my service, patient was recently at [facility], and she was initially admitted on 01/05/20. She was eventually discharged to a rehab facility on 02/19/20. Patient had many medical problems during her last admission included acute GI bleeding, acute on chronic diastolic congestive heart failure, acute covid 19 pneumonitis, H influenza pneumonia, and recurrent urinary tract infection. chronic kidney disease, hypertension, hypoxic respiratory failure secondary to pneumonia, obesity with BMI of 35.9, patient required PEG tube placement while she was in the hospital. She was seen by many consultants during her last hospital admission. Patient was eventually discharged to rehab facility on 02/19/20. However the patient was in the rehab facility for less than one day, apparently she developed worsening mental status, worsening shortness of breath. Hence the patient was transferred to [facility] in [facility], admitted for few days, and she continued to worsen, there was a concern about ongoing GI blood losses and hemoglobin. There is also a concern about her worsening pulmonary status, patient was transferred to [facility] and this consult was initiated. Apparently the day of her transferred to [facility], patient was intubated and required mechanical ventilation. Upon my evaluation the patient today in the ICU, patient is on assist control rate of 14, tidal volume is 480, FiO2 45% and PEEP of 5. ABG showed a pO2 of 130 pCO2 of 33 pH of 7.47. After reviewing the ABG, her ventilator settings were changed to tolerate volume is 450 assist-control rate 18 and kept her on 45% FiO2. Chest x-ray showed minimal bilateral infiltrates. Urinalysis is consistent with pyuria and bacteriuria. Hemoglobin is noted to be 7.3. WBC count is 19.9. And BUN is 78 creatinine 1.47. Patient was empirically started on cefepime for presumptive urinary tract infection and pneumonia patient had previous pseudomonal urinary tract infection. Not much history could be obtained from the patient most of the information obtained so far is from the chart Patient was reevaluated today on 02/25/2020, remains in the ICU, intubated and mechanically ventilated. She is on assist control rate of 18 tidal volume 455- 45% PEEP of 5. ABG showed a pO2 of 166 pCO2 of 32 pH of 7.49. On propofol at 30 mcg/kg/m, IV fluid 0.9 normal saline at 65 mL per hour. Remains on enteral feeding. She is also on cefepime empirically for presumptive pneumonia and urinary tract infection. We'll culture so far is showing gram-negative bacilli. Labs today were reviewed, WBC count is 20.2 hemoglobin is 7.2. Basic metabolic profile is unremarkable except for BUN of 79 creatinine of 1.49. Chest x-ray showed multifocal infiltrates bilaterally. Reevaluated today on 02/26/2020, patient remains in the ICU, she was weaned and extubated yesterday. She is now on room air with O2 saturation 96%, IV fluid is at KVO, patient is in sinus rhythm, she is hemodynamically stable, urine culture s are positive for gram-negative bacilli, final identification is pending. Patient did receive 1 unit of blood since she was admitted to the hospital. No active bleeding is noted. Patient was extubated yesterday, and she seems to have tolerated the extubation quite well. My plan is to transfer the patient today to a regular medical floor. Continues to have leukocytosis with WBC count of 19.7. Renal functioning remains borderline, creatinine is 1.61. Objective - Vital Signs Vital signs: Vital Signs Temp 98.2 F 02/26/20 12:00 Pulse 78 02/26/20 12:09 Resp 14 02/26/20 12:00 BP 157/99 02/26/20 12:00 Pulse Ox 96 02/26/20 12:00 Intake & Output 02/25/20 02/26/20 02/26/20 18:59 06:59 18:59 Intake Total 624.354 620 170 Output Total 1461 1010 190 Balance -836.646 -390 -20 Weight 99.3 kg Intake: IV 445 60 80 Sodium Chloride 0.9% 1, 445 60 80 000 ml @ 20 mls/hr IV . Q24H ANDREA Rx#:[id number] Intake, IV Titration 89.354 50 Amount Cefepime 1 gm In Sodium 50 50 Chloride 0.9% 50 ml @ 12. 5 mls/hr IVPB Q12HR ANDREA Rx#:[id number] propofoL 1,000 mg In 39.354 Empty Bag 1 bag @ Titrate IV .Q0M ANDREA Rx#: [id number] Tube Feeding 90 470 40 Other 90 Output: Urine 1461 1010 190 Other: Voiding Method Indwelling Catheter Indwelling Catheter Indwelling Catheter # Bowel Movements 1 - Exam Physical Exam: Revealed a 75-year-old female, obese, on room air. In no distress. Head: Atraumatic, normocephalic. HEENT:[Neck is supple.] [No neck masses.] [No thyromegaly.] [No JVD.] Chest: [Diminished breath sounds and crackles at the bases. Cardiac Exam: [Normal S1 and S2, no S3 gallop, no murmur.] Abdomen: [Soft, nontender, no megaly, no rebound, no guarding, normal bowel sounds.] PEG tube is noted and seems to be intact. Extremities: [No clubbing, trace of bipedal edema, no cyanosis.] Neurological Exam: Alert and oriented 3, no gross focal neurologic deficits. Psychiatric: Normal mood affect and normal mental status examination Skin: No rashes. - Labs CBC & Chem 7: 02/26/20 03:43 02/26/20 03:43 Labs: Abnormal Lab Results - Last 24 Hours (Table) 02/25/20 02/25/20 02/26/20 Range/Units 17:22 23:29 03:43 WBC 19.7 H (3.8-10.6) k/uL RBC 3.04 L (3.80-5.40) m/uL Hgb 8.9 L D (11.4-16.0) gm/dL Hct 28.8 L (34.0-46.0) % RDW 16.5 H (11.5-15.5) % Neutrophils # (Manual) 17.70 H (1.3-7.7) k/uL Lymphocytes # (Manual) 0.99 L (1.0-4.8) k/uL Metamyelocytes # (Man) 0.39 H (0) k/uL Chloride (98-107) mmol/L BUN (7-17) mg/dL Creatinine (0.52-1.04) mg/dL Glucose (74-99) mg/dL POC Glucose (mg/dL) 110 H 122 H (75-99) mg/dL Calcium (8.4-10.2) mg/dL 02/26/20 02/26/20 02/26/20 Range/Units 03:43 06:32 11:21 WBC (3.8-10.6) k/uL RBC (3.80-5.40) m/uL Hgb (11.4-16.0) gm/dL Hct (34.0-46.0) % RDW (11.5-15.5) % Neutrophils # (Manual) (1.3-7.7) k/uL Lymphocytes # (Manual) (1.0-4.8) k/uL Metamyelocytes # (Man) (0) k/uL Chloride 111 H (98-107) mmol/L BUN 81 H (7-17) mg/dL Creatinine 1.61 H (0.52-1.04) mg/dL Glucose 102 H (74-99) mg/dL POC Glucose (mg/dL) 116 H 144 H (75-99) mg/dL Calcium 7.9 L (8.4-10.2) mg/dL Microbiology - Last 24 Hours (Table) 02/24/20 06:24 Urine Culture - Final Urine,Catheterized Pseudomonas aeruginosa Assessment and Plan Assessment: Impression: Acute hypoxic respiratory failure, secondary to pneumonia as noted below. Acute healthcare acquired pneumonia Acute metabolic encephalopathy Acute urinary tract infection most likely secondary to pseudomonas Chronic kidney disease Type 2 diabetes. Recent history of cough related 19 infection and pneumonia Dyslipidemia History of dysphagia requiring PEG tube placement. Obesity with BMI of 35.9. History of chronic diastolic congestive heart failure History of chronic GI blood losses and positive Hemoccult stools, exact etiology is not clear. Yet to be investigated by gastroenterology. Chronic anemia secondary to chronic GI blood losses. And secondary to chronic renal failure. Generalized edema secondary to hypoalbuminemia. Severe sepsis, likely sources would be urine and lungs. Cultures are pending. In the meantime the patient remains on cefepime. Empirically. Recommendation: Patient was extubated yesterday uneventfully. Continue Nutritional support via PEG tube. Continue GI and DVT prophylaxis. Nephrology is following the patient for chronic kidney disease of stage IIIB. Antibiotics for presumptive pseudomonal infection. Monitor sugars closely and treat accordingly. Transfer patient to a regular medical floor today. We'll continue to follow for now Time with Patient: Less than 30
[2020-02-26] MEDS: SODIUM CHLORIDE 0.9% 1,000 ML IV SCH ×2 (16:43→19:39)
[2020-02-26 17:05] LABS: Glucose,Whole Blood 132 mg/dL (75-99)
[2020-02-26] MEDS: BUDESONIDE 0.5 MG/2 ML NEBU INHALATION SCH (21:11)
[2020-02-26] MEDS: INSULIN DETEMIR (LEVEMIR) 100 UNIT/ML SYR SQ SCH (22:43)
[2020-02-26 22:52] LABS: Glucose,Whole Blood 204 mg/dL (75-99)
--- NOTE | 2020-02-26 23:02 | CONS ---
CONSULTATION DATE OF SERVICE: 02/26/2020. REASON FOR CONSULTATION: Pseudomonas urinary tract infection. HISTORY OF PRESENT ILLNESS: The patient is a 75-year-old female who was initially admitted at this facility from January 04 till February 03, 2020. The patient treated for COVID-19 pneumonia, did have evidence of Haemophilus influenzae bacteremia/pneumonia. Patient subsequently stabilized and discharged to [facility]. The patient was readmitted to the hospital within a week on February 09 still February 18 when the patient was treated for a GI bleed. Subsequently stabilized and discharged to [facility]. Apparently, the patient was in the [facility] for less than a day, the patient developed worsening mental status, shortness of breath and the patient was transferred to [facility] in [place]. The patient was there and was diagnosed and treated for possible GI bleed. Subsequent developing worsening respiratory status, the patient ended up getting intubated and the patient was transferred to the [facility] for further evaluation. This patient has been afebrile throughout her hospital stay. However, she did have elevated white count on admission of 98.9 with absolute 19.7, kidney function mildly elevated. The patient did have a positive UA. This has been obtained from the Pablo catheter. I was not sure for how many days was there and culture did show Pseudomonas aeruginosa with intermediate sensitivity to cefepime and resistant to Fortaz and Piperacillin to the Bactrim. Infectious Disease was consulted for further management of her antibiotic therapy. The patient is currently extubated and she is breathing comfortably on room air. The patient when asked denies having any chest pain or shortness of breath. She did have some congested cough. No nausea, vomiting, abdominal pain, no diarrhea. She is not a very good historian. Most of the information has been taken from the family and review of the chart. REVIEW OF SYSTEMS: Positive points have been mentioned in HPI. Rest of systems negative. PAST MEDICAL HISTORY: Hypertension, hyperlipidemia, chronic venous deficiency, Covid pneumonia, GI bleed, ARDS and Haemophilus bacteremia. PAST SURGICAL HISTORY: PEG tube placement. Orthopedic surgery. SOCIAL HISTORY: No history of smoking, drinking or drug use. FAMILY HISTORY: Father history of PE. ALLERGIES: No known drug allergies. MEDICATIONS: Include the patient is currently on DuoNeb, vitamin C, Pulmicort, vitamin D3; the patient is on iron sulfate, folic acid, heparin, NovoLog, Levemir, and Lopressor, Theragran, Narcan and zinc sulfate. PHYSICAL EXAMINATION: Blood pressure is 151/91 with a pulse of 85, temperature 98.3. She is 97% on room air. General description is an elderly female lying in bed in no distress. No tachypnea or accessory muscle of respiration use. HEENT: Examination shows slight pallor. No scleral icterus. Oral mucosal membranes dry. Neck: Trachea central. No thyromegaly. Lungs: Unlabored breathing, decreased breath sounds in the base, with no wheeze. Heart S1, S2. Regular rate and rhythm. Abdomen soft. No tenderness. No guarding and no rigidity. Extremities: No edema of the feet. Skin examination: No rash or mass palpable. Neurological: Patient is awake, alert, oriented x3. Mood and affect normal. LABS: Hemoglobin 8.8, white count 19.7, BUN of 81, creatinine is 1.61. Electrolytes have been normal. Liver enzymes are normal. Troponin was elevated. Urine is positive culture with Pseudomonas aeruginosa. Chest x-ray negative for any consolidation. DIAGNOSTIC IMPRESSION AND PLAN: Patient presented to the hospital with mental status changes and acute respiratory failure in this patient also with component of catheter associated urinary tract infection in this patient urine did shows multidrug resistant Pseudomonas aeruginosa and currently did not have any other obvious focus of infection. PLAN: 1. Discontinue cefepime. 2. Start the patient on Cipro 500 mg p.o. twice a day. 3. We will follow on clinical condition and adjust medication further if needed. Thank you for this consultation. Will follow this patient along with you. MMODL / IJN: [id number] / BIN
[2020-02-26] MEDS: CIPROFLOXACIN HCL 500 MG TAB PEJ/J-Tube SCH (23:36)
[2020-02-26] MEDS: CHLORHEXIDINE GLUCONATE 15 ML CUP MUCOUS MEM SCH (23:49)
[2020-02-27] MEDS: INSULIN ASPART (NovoLOG) 100 UNIT/ML VIAL SQ SCH ×7 (01:08→18:12)
[2020-02-27 05:22] LABS: Glucose,Whole Blood 198 mg/dL (75-99)
[2020-02-27 06:52] LABS: Anisocytosis Slight; HCT 28.6 % (34.0-46.0); HGB 9.3 gm/dL (11.4-16.0); Hypochromasia Moderate; MCH 30.6 pg (25.0-35.0); MCHC 32.6 g/dL (31.0-37.0); MCV 93.9 fL (80.0-100.0); Mean Platelet Volume 8.1; Platelet Count 228 k/uL (150-450); Poikilocytosis Slight; RBC 3.04 m/uL (3.80-5.40); RDW 16.1 % (11.5-15.5); WBC 21.8 k/uL (3.8-10.6)
[2020-02-27] MEDS: BUDESONIDE 0.5 MG/2 ML NEBU INHALATION SCH ×2 (08:37→19:40)
[2020-02-27] MEDS: IPRATROPIUM-ALBUTEROL 3 ML NEB INHALATION SCH ×4 (08:37→19:40)
[2020-02-27] MEDS: HEPARIN SODIUM,PORCINE 5,000 UNIT/ML 1 ML VIAL SQ SCH ×2 (09:16→20:55)
[2020-02-27] MEDS: METOPROLOL TARTRATE 50 MG TAB PO SCH ×3 (09:17→17:05)
[2020-02-27] MEDS: MULTIVITAMINS, THERA 1 EACH TAB PO SCH (09:17)
[2020-02-27] MEDS: ASCORBIC ACID 500 MG TAB PO SCH ×2 (09:17→21:04)
[2020-02-27] MEDS: CHOLECALCIFEROL 1,000 UNIT TAB PO SCH (09:17)
[2020-02-27] MEDS: CIPROFLOXACIN HCL 500 MG TAB PEJ/J-Tube SCH (09:18)
[2020-02-27 10:11] LABS: African American GFR (CKD) 27.2 (60.0-200.0); Albumin 2.8 g/dL (3.80-4.90); Albumin/Globulin Ratio 2.55 (1.60-3.17); Anion Gap 14.1 mmol/L (4.00-12.00); Calcium 7.8 mg/dL (8.7-10.3); Carbon Dioxide 23.9 mmol/L (21.6-31.8); Globulin 1.1 g/dL (1.6-3.3); Magnesium 1.8 mg/dL (1.5-2.4); Non-African American GFR(CKD) 23.5 (60.0-200.0); Potassium 3.7 mmol/L (3.5-5.5); Total Bilirubin 0.4 mg/dL (0.3-1.2); Total Protein 3.9 g/dL (6.2-8.2)
[2020-02-27] MEDS ORDERED: DEXTROSE 5% IN WATER 1,000 ML IV SCH (11:15)
--- NOTE | 2020-02-27 11:19 | XR ---
EXAMINATION TYPE: XR chest 1V portable DATE OF EXAM: 02/27/2020 CLINICAL HISTORY: Cough and shortness of breath and weakness progress study. TECHNIQUE: Single AP portable upright view of the chest is obtained. COMPARISON: Chest x-ray from one day earlier and older studies. FINDINGS: Stable right-sided PICC line. Cardiac silhouette size stable and within normal limits with atherosclerotic thoracic aorta. Worsening reticular opacities bilaterally with persistent small to t iny left greater than right pleural effusions. Advanced degenerative change bilateral shoulders redem onstrated. IMPRESSION: Worsening bilateral multifocal edema and/or infiltrates versus one day earlier.
--- NOTE | 2020-02-27 11:36 | P.PN ---
Subjective Patient is seen in follow-up for chronic kidney disease. Patient has chronic kidney disease stage IIIB secondary to nephrosclerosis. Renal function worsened from diuresis. Nonoliguric. Currently on room air. Not a reliable historian due to history of dementia. Vital signs are stable. General: The patient appeared well nourished and normally developed. HEENT: Head exam is unremarkable. Neck is without jugular venous distension. LUNGS: Breath sounds decreased. HEART: Rate and Rhythm are regular. ABDOMEN: Soft. No gross distention noted. EXTREMITITES: 1+ edema. Objective - Vital Signs Vital signs: Vital Signs Temp 97.4 F L 02/27/20 02:00 Pulse 76 02/27/20 08:50 Resp 26 H 02/27/20 08:00 BP 111/72 02/27/20 02:00 Pulse Ox 95 02/27/20 02:00 Intake & Output 02/26/20 02/27/20 02/27/20 18:59 06:59 18:59 Intake Total 360 385 Output Total 1190 1300 Balance -830 -915 Weight 99.3 kg 100 kg Intake: IV 80 Sodium Chloride 0.9% 1, 80 000 ml @ 20 mls/hr IV . Q24H ANDREA Rx#:[id number] Intake, IV Titration 50 Amount Cefepime 1 gm In Sodium 50 Chloride 0.9% 50 ml @ 12. 5 mls/hr IVPB Q12HR ANDREA Rx#:[id number] Tube Feeding 200 385 Other 30 Output: Urine 1190 1300 Other: Voiding Method Indwelling Catheter Indwelling Catheter # Bowel Movements 1 - Labs CBC & Chem 7: 02/27/20 06:25 02/27/20 06:25 Labs: Abnormal Lab Results - Last 24 Hours (Table) 02/26/20 02/26/20 02/26/20 Range/Units 12:00 17:03 22:40 WBC (3.8-10.6) k/uL RBC (3.80-5.40) m/uL Hgb (11.4-16.0) gm/dL Hct (34.0-46.0) % RDW (11.5-15.5) % Sodium (135-145) mmol/L Chloride (96-109) mmol/L Anion Gap (4.00-12.00) mmol/L BUN (9.0-27.0) mg/dL Creatinine (0.6-1.5) mg/dL Est GFR (CKD-EPI)AfAm (60.0-200.0) Est GFR (CKD-EPI)NonAf (60.0-200.0) BUN/Creatinine Ratio (12.00-20.00) Ratio Glucose (70-110) mg/dL POC Glucose (mg/dL) 132 H 204 H (75-99) mg/dL Calcium (8.7-10.3) mg/dL Total Protein (6.2-8.2) g/dL Albumin (3.80-4.90) g/dL Globulin (1.6-3.3) g/dL Urine Protein 1+ H (Negative) Ur Leukocyte Esterase Moderate H (Negative) Urine WBC 26 H (0-5) /hpf Urine Bacteria Rare H (None) /hpf Urine Mucus Rare H (None) /hpf 02/27/20 02/27/20 02/27/20 Range/Units 05:20 06:25 06:25 WBC 21.8 H (3.8-10.6) k/uL RBC 3.04 L (3.80-5.40) m/uL Hgb 9.3 L (11.4-16.0) gm/dL Hct 28.6 L (34.0-46.0) % RDW 16.1 H (11.5-15.5) % Sodium 150 H (135-145) mmol/L Chloride 112 H (96-109) mmol/L Anion Gap 14.10 H (4.00-12.00) mmol/L BUN 90.0 H (9.0-27.0) mg/dL Creatinine 2.0 H (0.6-1.5) mg/dL Est GFR (CKD-EPI)AfAm 27.2 L (60.0-200.0) Est GFR (CKD-EPI)NonAf 23.5 L (60.0-200.0) BUN/Creatinine Ratio 45.00 H (12.00-20.00) Ratio Glucose 151 H (70-110) mg/dL POC Glucose (mg/dL) 198 H (75-99) mg/dL Calcium 7.8 L (8.7-10.3) mg/dL Total Protein 3.9 L (6.2-8.2) g/dL Albumin 2.80 L (3.80-4.90) g/dL Globulin 1.1 L (1.6-3.3) g/dL Urine Protein (Negative) Ur Leukocyte Esterase (Negative) Urine WBC (0-5) /hpf Urine Bacteria (None) /hpf Urine Mucus (None) /hpf Microbiology - Last 24 Hours (Table) 02/26/20 12:00 Urine Culture - Preliminary Urine,Voided 02/24/20 06:24 Urine Culture - Final Urine,Catheterized Pseudomonas aeruginosa Assessment and Plan Plan: Assessment: 1. Chronic kidney disease stage IIIB secondary to nephrosclerosis with baseline creatinine near 1.5. No hydronephrosis noted on kidney ultrasound done in January 2020. Left kidney wasn't visualized. Right kidney was small in size. 2. Severe sepsis maintained on antibiotics. Urine culture positive for Pseudomonas. 3. Anemia of chronic kidney disease. No active bleeding noted. She does have history of GI bleed. Status post blood transfusion this admission. On Aranesp. 4. Generalized edema partially due to hypoalbuminemia causing third spacing. Improved with diuresis. 5. Acute hypoxic history failure. Now on room air. 6. Diabetes mellitus. Plan: Maintain tube feeding. Add free water flushes 300 mL every 4 hours with tube feeding. 25 g IV albumin 2 doses given 02/24/2020. Hold Lasix today. Avoid nephrotoxins. Continue to monitor renal function and urine output. Repeat electrolytes in the morning.
[2020-02-27 11:42] LABS: Glucose,Whole Blood 160 mg/dL (75-99)
[2020-02-27] MEDS: FOLIC ACID 1 MG TAB PO SCH (12:28)
[2020-02-27] MEDS: THIAMINE 100 MG TAB PO SCH (12:28)
[2020-02-27] MEDS: ZINC SULFATE 220 MG CAP PO SCH (12:41)
--- NOTE | 2020-02-27 13:09 | P.PN ---
Subjective Progress Note Date: 02/27/20 Principal diagnosis: Acute hypoxic respiratory failure and acute healthcare acquired pneumonia This is a 75-year-old female, familiar to my service, patient was recently at [facility], and she was initially admitted on 01/05/20. She was eventually discharged to a rehab facility on 02/19/20. Patient had many medical problems during her last admission included acute GI bleeding, acute on chronic diastolic congestive heart failure, acute covid 19 pneumonitis, H influenza pneumonia, and recurrent urinary tract infection. chronic kidney disease, hypertension, hypoxic respiratory failure secondary to pneumonia, obesity with BMI of 35.9, patient required PEG tube placement while she was in the hospital. She was seen by many consultants during her last hospital admission. Patient was eventually discharged to rehab facility on 02/19/20. However the patient was in the rehab facility for less than one day, apparently she developed worsening mental status, worsening shortness of breath. Hence the patient was transferred to [facility] in [facility], admitted for few days, and she continued to worsen, there was a concern about ongoing GI blood losses and hemoglobin. There is also a concern about her worsening pulmonary status, patient was transferred to [facility] and this consult was initiated. Apparently the day of her transferred to [facility], patient was intubated and required mechanical ventilation. Upon my evaluation the patient today in the ICU, patient is on assist control rate of 14, tidal volume is 480, FiO2 45% and PEEP of 5. ABG showed a pO2 of 130 pCO2 of 33 pH of 7.47. After reviewing the ABG, her ventilator settings were changed to tolerate volume is 450 assist-control rate 18 and kept her on 45% FiO2. Chest x-ray showed minimal bilateral infiltrates. Urinalysis is consistent with pyuria and bacteriuria. Hemoglobin is noted to be 7.3. WBC count is 19.9. And BUN is 78 creatinine 1.47. Patient was empirically started on cefepime for presumptive urinary tract infection and pneumonia patient had previous pseudomonal urinary tract infection. Not much history could be obtained from the patient most of the information obtained so far is from the chart Patient was reevaluated today on 02/25/2020, remains in the ICU, intubated and mechanically ventilated. She is on assist control rate of 18 tidal volume 455- 45% PEEP of 5. ABG showed a pO2 of 166 pCO2 of 32 pH of 7.49. On propofol at 30 mcg/kg/m, IV fluid 0.9 normal saline at 65 mL per hour. Remains on enteral feeding. She is also on cefepime empirically for presumptive pneumonia and urinary tract infection. We'll culture so far is showing gram-negative bacilli. Labs today were reviewed, WBC count is 20.2 hemoglobin is 7.2. Basic metabolic profile is unremarkable except for BUN of 79 creatinine of 1.49. Chest x-ray showed multifocal infiltrates bilaterally. Reevaluated today on 02/26/2020, patient remains in the ICU, she was weaned and extubated yesterday. She is now on room air with O2 saturation 96%, IV fluid is at KVO, patient is in sinus rhythm, she is hemodynamically stable, urine culture s are positive for gram-negative bacilli, final identification is pending. Patient did receive 1 unit of blood since she was admitted to the hospital. No active bleeding is noted. Patient was extubated yesterday, and she seems to have tolerated the extubation quite well. My plan is to transfer the patient today to a regular medical floor. Continues to have leukocytosis with WBC count of 19.7. Renal functioning remains borderline, creatinine is 1.61. On 02/27/2020 patient seen in follow-up on medical floor, patient was transferred out of intensive care unit yesterday, on today's exam she is quite encephalopathic, she opens eyes to vigorous stimulation however she is not verbally responding, her pulse ox was 95% on room air, however she is tachypneic, and breathing very shallowly, vital signs have been stable, she's been afebrile. Today's chest x-ray has been reviewed showing worsening bilateral multifocal edema and/or infiltrates. Today's labs showed an increasing white count up to 21.8, from previous 19.7 on yesterday's labs, hemoglobin is 9.3, sodium is 150, potassium is 3.7, chloride is 112, anion gap has increased To 14.1, B1 is 90 creatinine is 2.0, renal function has worsened, patient is being nourished via her PEG tube, and is currently receiving Nepro tube feedings at 35, however she is only receiving 30 mL of free water through the PEG tube every 4 hours. She has not been able to take anything by mouth in view of current dysphagia and aspiration. Patient will be placed on BiPAP support. She is already on antibiotics for pseudomonal urinary tract infection. Objective - Vital Signs Vital signs: Vital Signs Temp 97.4 F L 02/27/20 02:00 Pulse 79 02/27/20 11:43 Resp 26 H 02/27/20 08:00 BP 111/72 02/27/20 02:00 Pulse Ox 95 02/27/20 02:00 Intake & Output 02/26/20 02/27/20 02/27/20 18:59 06:59 18:59 Intake Total 360 385 Output Total 1190 1300 Balance -830 -915 Weight 99.3 kg 100 kg Intake: IV 80 Sodium Chloride 0.9% 1, 80 000 ml @ 20 mls/hr IV . Q24H ANDREA Rx#:[id number] Intake, IV Titration 50 Amount Cefepime 1 gm In Sodium 50 Chloride 0.9% 50 ml @ 12. 5 mls/hr IVPB Q12HR ANDREA Rx#:[id number] Tube Feeding 200 385 Other 30 Output: Urine 1190 1300 Other: Voiding Method Indwelling Catheter Indwelling Catheter # Bowel Movements 1 - Exam GENERAL EXAM: Quite drowsy, 75-year-old white female, on room air, breathing shallowly, and respirations are tachypneic, comfortable in no apparent distress. HEAD: Normocephalic/atraumatic. EYES: Normal reaction of pupils, equal size. Conjunctiva pink, sclera white. NOSE: Clear with pink turbinates. THROAT: No erythema or exudates. NECK: No masses, no JVD, no thyroid enlargement, no adenopathy. CHEST: No chest wall deformity. Symmetrical expansion. LUNGS: Equal air entry with diminished breath sounds, CVS: Regular rate and rhythm, normal S1 and S2, no gallops, no murmurs, no rubs ABDOMEN: Soft, nontender. No hepatosplenomegaly, normal bowel sounds, no guarding or rigidity. EXTREMITIES: No clubbing, no edema, no cyanosis, 2+ pulses and upper and lower extremities. MUSCULOSKELETAL: Muscle strength and tone normal. SPINE: No scoliosis or deformity SKIN: No rashes CENTRAL NERVOUS SYSTEM: Drowsy, opens eyes but does not verbally respond. No focal deficits, tone is normal in all 4 extremities. - Labs CBC & Chem 7: 02/27/20 06:25 02/27/20 06:25 Labs: Abnormal Lab Results - Last 24 Hours (Table) 02/26/20 02/26/20 02/26/20 Range/Units 12:00 17:03 22:40 WBC (3.8-10.6) k/uL RBC (3.80-5.40) m/uL Hgb (11.4-16.0) gm/dL Hct (34.0-46.0) % RDW (11.5-15.5) % Sodium (135-145) mmol/L Chloride (96-109) mmol/L Anion Gap (4.00-12.00) mmol/L BUN (9.0-27.0) mg/dL Creatinine (0.6-1.5) mg/dL Est GFR (CKD-EPI)AfAm (60.0-200.0) Est GFR (CKD-EPI)NonAf (60.0-200.0) BUN/Creatinine Ratio (12.00-20.00) Ratio Glucose (70-110) mg/dL POC Glucose (mg/dL) 132 H 204 H (75-99) mg/dL Calcium (8.7-10.3) mg/dL Total Protein (6.2-8.2) g/dL Albumin (3.80-4.90) g/dL Globulin (1.6-3.3) g/dL Urine Protein 1+ H (Negative) Ur Leukocyte Esterase Moderate H (Negative) Urine WBC 26 H (0-5) /hpf Urine Bacteria Rare H (None) /hpf Urine Mucus Rare H (None) /hpf 02/27/20 02/27/20 02/27/20 Range/Units 05:20 06:25 06:25 WBC 21.8 H (3.8-10.6) k/uL RBC 3.04 L (3.80-5.40) m/uL Hgb 9.3 L (11.4-16.0) gm/dL Hct 28.6 L (34.0-46.0) % RDW 16.1 H (11.5-15.5) % Sodium 150 H (135-145) mmol/L Chloride 112 H (96-109) mmol/L Anion Gap 14.10 H (4.00-12.00) mmol/L BUN 90.0 H (9.0-27.0) mg/dL Creatinine 2.0 H (0.6-1.5) mg/dL Est GFR (CKD-EPI)AfAm 27.2 L (60.0-200.0) Est GFR (CKD-EPI)NonAf 23.5 L (60.0-200.0) BUN/Creatinine Ratio 45.00 H (12.00-20.00) Ratio Glucose 151 H (70-110) mg/dL POC Glucose (mg/dL) 198 H (75-99) mg/dL Calcium 7.8 L (8.7-10.3) mg/dL Total Protein 3.9 L (6.2-8.2) g/dL Albumin 2.80 L (3.80-4.90) g/dL Globulin 1.1 L (1.6-3.3) g/dL Urine Protein (Negative) Ur Leukocyte Esterase (Negative) Urine WBC (0-5) /hpf Urine Bacteria (None) /hpf Urine Mucus (None) /hpf 02/27/20 Range/Units 11:40 WBC (3.8-10.6) k/uL RBC (3.80-5.40) m/uL Hgb (11.4-16.0) gm/dL Hct (34.0-46.0) % RDW (11.5-15.5) % Sodium (135-145) mmol/L Chloride (96-109) mmol/L Anion Gap (4.00-12.00) mmol/L BUN (9.0-27.0) mg/dL Creatinine (0.6-1.5) mg/dL Est GFR (CKD-EPI)AfAm (60.0-200.0) Est GFR (CKD-EPI)NonAf (60.0-200.0) BUN/Creatinine Ratio (12.00-20.00) Ratio Glucose (70-110) mg/dL POC Glucose (mg/dL) 160 H (75-99) mg/dL Calcium (8.7-10.3) mg/dL Total Protein (6.2-8.2) g/dL Albumin (3.80-4.90) g/dL Globulin (1.6-3.3) g/dL Urine Protein (Negative) Ur Leukocyte Esterase (Negative) Urine WBC (0-5) /hpf Urine Bacteria (None) /hpf Urine Mucus (None) /hpf Microbiology - Last 24 Hours (Table) 02/26/20 12:00 Urine Culture - Preliminary Urine,Voided 02/24/20 06:24 Urine Culture - Final Urine,Catheterized Pseudomonas aeruginosa Assessment and Plan Plan: Assessment: #1. Acute hypoxic respiratory failure secondary to debility of healthcare acquired pneumonia, recent required intubation and placement on mechanical ventilator, was successfully weaned and extubated on 02/25/2020, transfer out of intensive care unit yesterday on 02/26/2020. #2. Acute metabolic encephalopathy #3. Acute urinary tract infection with urine cultures positive for pseudomonas aeruginosa, currently on ciprofloxacin #4. Acute kidney injury #6. Hyperkalemia related to free water deficit #7. Type 2 diabetes mellitus #8. Recent history of hospitalization related to COVID 19 related pneumonia, and GI bleeding #9. History of dysphagia requiring PEG tube placement #10. Dyslipidemia #11. History of chronic diastolic congestive heart failure #12. History of chronic GI blood loss and positive Hemoccult stools, exact etiology is not clear, to be investigated by gastroenterology #13. Chronic anemia possibly related to chronic renal failure #14. Generalized edema secondary to hypoalbuminemia #15. 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 Plan: We'll initiate BiPAP support with pressures of 12 and 4 and FiO2 to keep O2 sat at or above 90%. We'll start the patient on D5W at 100 mL per hour, we'll start free water flushes 200 ml per PEG tube every 4 hours, maintain aspiration precautions, continue same antibiotics, continue bronchodilators. I performed a history & physical examination of the patient and discussed their management with my nurse practitioner, Anna Brown. I reviewed the nurse practitioner's note and agree with the documented findings and plan of care. Lung sounds are positive for diminished breath sounds. The findings and the impression was discussed with the patient. I attest to the documentation by the nurse practitioner. Time with Patient: Less than 30
[2020-02-27] MEDS ORDERED: ACETAMINOPHEN ORAL SUSP 160 MG/5 ML CUP PO PRN (15:05)
--- NOTE | 2020-02-27 16:07 | P.PN ---
Subjective Progress Note Date: 02/27/20 02/27/2020 patient is seen and evaluated in room with RN at bedside, patient was transferred out of intensive care unit yesterday; patient is quite encephalopathic and only opens eyes to vigorous stimulation however she is not verbally responding, her pulse ox was 95% on room air, however she is tachypneic, and breathing very shallowly, vital signs have been stable, she's been afebrile. chest x-ray has been reviewed showing worsening bilateral multifocal edema and/or infiltrates. Today's labs showed an increasing white count up to 21.8, from previous 19.7 on yesterday's labs, hemoglobin is 9.3, sodium is 150, potassium is 3.7, chloride is 112, anion gap has increased To 14.1, BUN is 90 creatinine is 2.0, renal function has worsened, patient is being nourished via her PEG tube, and is currently receiving Nepro tube feedings at 35, nephrology is following and have increased to 50 mL of free water through the PEG tube every 4 hours. She has not been able to take anything by mouth in view of current dysphagia and aspiration. Patient will be placed on BiPAP support. She is already on antibiotics for pseudomonal urinary tract infection. Called patient's daughter Char Morales at [phone] and give her a detailed account of patient's declining condition; daughter wants to continue with aggressive treatment that possible re-intubation if needed Objective - Vital Signs Vital signs: Vital Signs Temp 100.1 F H 02/27/20 14:00 Pulse 82 02/27/20 15:26 Resp 24 02/27/20 14:00 BP 114/66 02/27/20 14:00 Pulse Ox 100 02/27/20 14:00 Intake & Output 02/26/20 02/27/20 02/27/20 18:59 06:59 18:59 Intake Total 360 385 Output Total 1190 1300 Balance -830 -915 Weight 99.3 kg 100 kg Intake: IV 80 Sodium Chloride 0.9% 1, 80 000 ml @ 20 mls/hr IV . Q24H ANDREA Rx#:[id number] Intake, IV Titration 50 Amount Cefepime 1 gm In Sodium 50 Chloride 0.9% 50 ml @ 12. 5 mls/hr IVPB Q12HR ANDREA Rx#:[id number] Tube Feeding 200 385 Other 30 Output: Urine 1190 1300 Other: Voiding Method Indwelling Catheter Indwelling Catheter # Bowel Movements 1 - Exam GENERAL EXAM: Quite drowsy, 75-year-old white female, on room air, breathing shallowly, and respirations are tachypneic, daily responding to tactile stimulation HEAD: Normocephalic/atraumatic. EYES: Normal reaction of pupils, equal size. Conjunctiva pink, sclera white. NOSE: Clear with pink turbinates. THROAT: No erythema or exudates. NECK: No masses, no JVD, no thyroid enlargement, no adenopathy. CHEST: No chest wall deformity. Symmetrical expansion. LUNGS: Equal air entry with diminished breath sounds, CVS: Regular rate and rhythm, normal S1 and S2, no gallops, no murmurs, no rubs ABDOMEN: Soft, nontender. No hepatosplenomegaly, normal bowel sounds, no g uarding or rigidity. EXTREMITIES: No clubbing, no edema, no cyanosis, 2+ pulses and upper and lower extremities. - Labs CBC & Chem 7: 02/27/20 06:25 02/27/20 06:25 Labs: Abnormal Lab Results - Last 24 Hours (Table) 02/26/20 02/26/20 02/27/20 Range/Units 17:03 22:40 05:20 WBC (3.8-10.6) k/uL RBC (3.80-5.40) m/uL Hgb (11.4-16.0) gm/dL Hct (34.0-46.0) % RDW (11.5-15.5) % Sodium (135-145) mmol/L Chloride (96-109) mmol/L Anion Gap (4.00-12.00) mmol/L BUN (9.0-27.0) mg/dL Creatinine (0.6-1.5) mg/dL Est GFR (CKD-EPI)AfAm (60.0-200.0) Est GFR (CKD-EPI)NonAf (60.0-200.0) BUN/Creatinine Ratio (12.00-20.00) Ratio Glucose (70-110) mg/dL POC Glucose (mg/dL) 132 H 204 H 198 H (75-99) mg/dL Calcium (8.7-10.3) mg/dL Total Protein (6.2-8.2) g/dL Albumin (3.80-4.90) g/dL Globulin (1.6-3.3) g/dL 02/27/20 02/27/20 02/27/20 Range/Units 06:25 06:25 11:40 WBC 21.8 H (3.8-10.6) k/uL RBC 3.04 L (3.80-5.40) m/uL Hgb 9.3 L (11.4-16.0) gm/dL Hct 28.6 L (34.0-46.0) % RDW 16.1 H (11.5-15.5) % Sodium 150 H (135-145) mmol/L Chloride 112 H (96-109) mmol/L Anion Gap 14.10 H (4.00-12.00) mmol/L BUN 90.0 H (9.0-27.0) mg/dL Creatinine 2.0 H (0.6-1.5) mg/dL Est GFR (CKD-EPI)AfAm 27.2 L (60.0-200.0) Est GFR (CKD-EPI)NonAf 23.5 L (60.0-200.0) BUN/Creatinine Ratio 45.00 H (12.00-20.00) Ratio Glucose 151 H (70-110) mg/dL POC Glucose (mg/dL) 160 H (75-99) mg/dL Calcium 7.8 L (8.7-10.3) mg/dL Total Protein 3.9 L (6.2-8.2) g/dL Albumin 2.80 L (3.80-4.90) g/dL Globulin 1.1 L (1.6-3.3) g/dL Microbiology - Last 24 Hours (Table) 02/26/20 12:00 Urine Culture - Preliminary Urine,Voided Assessment and Plan Assessment: -Acute hypoxic respiratory failure/ secondary to sepsis and encephalopathy. Patient was extubated on 02/25/2020 -Toxic encephalopathy: Secondary to sepsis most probably from urinary tract infection Pablo catheter will be changed patient has Pseudomonas in the urine patient is presently on cefepime although patient hasn't remitted susceptibility to cefepime as well as Zosyn. We will repeat urine analysis since the Pablo catheter was replaced patient may or may not need antibiotics we'll make the decision depending on urinalysis results. Infectious disease was consulted. -Pseudomonal UTI -Sepsis secondary to UTI -Chronic kidney disease: Nephrology is following the patient IV fluids as per nephrology. Patient blood pressure is low normal at this time. Patient is also receiving albumin aspirin nephrology -Type 2 diabetes mellitus. -Recent Covid 19 infection. -Hyperlipidemia -Dysphagia for which patient has a PEG tube -DVT prophylaxis: Subcutaneous heparin
[2020-02-27] MEDS: MEROPENEM 1 GM in SODIUM CHLORIDE 0.9% 100 ML IVPB SCH (16:55)
[2020-02-27] MEDS: ACETAMINOPHEN ORAL SUSP (PEDS) 3,840 MG/120 ML BOTTLE PO PRN (17:26)
[2020-02-27 18:11] LABS: Glucose,Whole Blood 175 mg/dL (75-99)
--- NOTE | 2020-02-27 18:15 | PN ---
PROGRESS NOTE DATE OF SERVICE: 02/27/2020 REASON FOR FOLLOWUP: 1. Pseudomonas UTI. 2. New fever. INTERVAL HISTORY: The patient did spike a fever of 100.1 axillary this afternoon. The patient also had worsening respiratory status currently with BiPAP. She is hemodynamically stable, not on pressor support. No vomiting, diarrhea or any other change reported by nursing staff. PHYSICAL EXAMINATION: Blood pressure 114/66, pulse of 93, temperature 100.1. She is 100% on BiPAP. General description is an elderly female lying in bed in no distress. Respiratory system: Unlabored breathing. Coarse breath sounds in the bases bilaterally. Heart S1, S2. Regular rate. ABDOMEN: Soft, no tenderness. LABS: Hemoglobin 9.1, white count 21.8, creatinine is 2.0. DIAGNOSTIC IMPRESSION AND PLAN: Patient with acute respiratory failure, now with evidence of worsening bilateral multifocal edema and did have Pseudomonas pneumonia. Patient will be able take her oral Cipro. We will repeat blood cultures and switch antibiotic therapy to meropenem 1 g q.12 hours while watching kidney function and close outpatient followup. MMODL / IJN: [id number] /
[2020-02-27] MEDS: INSULIN DETEMIR (LEVEMIR) 100 UNIT/ML SYR SQ SCH (21:04)
[2020-02-27 21:15] LABS: Glucose,Whole Blood 151 mg/dL (75-99)
[2020-02-28 00:38] LABS: Glucose,Whole Blood 155 mg/dL (75-99)
[2020-02-28] MEDS: MEROPENEM 1 GM in SODIUM CHLORIDE 0.9% 100 ML IVPB SCH ×3 (00:55→20:49)
[2020-02-28] MEDS: INSULIN ASPART (NovoLOG) 100 UNIT/ML VIAL SQ SCH ×8 (01:17→18:00)
[2020-02-28] MEDS ORDERED: CIPROFLOXACIN HCL 500 MG TAB PEJ/J-Tube SCH (03:00)
[2020-02-28 06:08] LABS: Glucose,Whole Blood 123 mg/dL (75-99)
[2020-02-28] MEDS: BUDESONIDE 0.5 MG/2 ML NEBU INHALATION SCH ×2 (07:42→19:56)
[2020-02-28] MEDS: IPRATROPIUM-ALBUTEROL 3 ML NEB INHALATION SCH ×4 (07:42→19:56)
[2020-02-28] MEDS: HEPARIN SODIUM,PORCINE 5,000 UNIT/ML 1 ML VIAL SQ SCH ×2 (08:55→20:49)
[2020-02-28] MEDS: CHOLECALCIFEROL 1,000 UNIT TAB PO SCH (08:55)
[2020-02-28] MEDS: MULTIVITAMINS, THERA 1 EACH TAB PO SCH (08:55)
[2020-02-28] MEDS: METOPROLOL TARTRATE 50 MG TAB PO SCH ×2 (08:55→16:17)
[2020-02-28] MEDS: ZINC SULFATE 220 MG CAP PO SCH (08:55)
[2020-02-28] MEDS: ASCORBIC ACID 500 MG TAB PO SCH ×2 (08:55→20:50)
[2020-02-28 10:59] LABS: Glucose,Whole Blood 104 mg/dL (75-99)
[2020-02-28 11:53] LABS: ABG Base Excess 1.5 mmol/L; ABG HCO3 26 mmol/L (21-25); ABG PCO2 38 mmHg (35-45); ABG PH 7.44 (7.35-7.45); ABG PO2 111 mmHg (83-108); ABG TCO2 27 mmol/L (19-24); Allen Test Performed? Yes
[2020-02-28 12:02] LABS: Anisocytosis Slight; HCT 24.9 % (34.0-46.0); Hypochromasia Moderate; MCH 30.1 pg (25.0-35.0); MCV 94.1 fL (80.0-100.0); Platelet Count 166 k/uL (150-450); RBC 2.65 m/uL (3.80-5.40); WBC 15.2 k/uL (3.8-10.6)
[2020-02-28 12:03] LABS: ABG Oxygen Saturation 99.5 % (94-97)
[2020-02-28 12:05] LABS: ALT 12 U/L (4-34); AST 24 U/L (14-36); African American GFR (CKD) 27 (>60 ml/min/1.73 sqM); Albumin/Globulin Ratio 1.1; Alkaline Phosphatase 58 U/L (38-126); Anion Gap 7 mmol/L; Blood Urea Nitrogen 91 mg/dL (7-17); Calcium 8.2 mg/dL (8.4-10.2); Carbon Dioxide 25 mmol/L (22-30); Chloride 109 mmol/L (98-107); Globulin 1.9 g/dL; Glucose 100 mg/dL (74-99); Non-African American GFR(CKD) 23 (>60 ml/min/1.73 sqM); Sodium 141 mmol/L (137-145); Total Bilirubin 0.6 mg/dL (0.2-1.3); Total Protein 3.9 g/dL (6.3-8.2)
[2020-02-28] MEDS: THIAMINE 100 MG TAB PO SCH (12:17)
[2020-02-28] MEDS: FOLIC ACID 1 MG TAB PO SCH (12:17)
[2020-02-28] MEDS: SODIUM CHLORIDE 0.9% 1,000 ML IV SCH (12:17)
[2020-02-28 13:28] LABS: Band Neutrophils % 1 %; Eosinophils # (M) 0.61 k/uL (0-0.7); Monocytes # (M) 0.61 k/uL (0-1.0); Neutrophils % (M) 89 %; Nucleated Red Blood Cells 0 /100 WBC (0-0); Total Cells Counted 100
[2020-02-28 13:29] LABS: Poikilocytosis (M) Present
--- NOTE | 2020-02-28 14:27 | P.PN ---
Subjective Progress Note Date: 02/28/20 Principal diagnosis: Acute hypoxic respiratory failure secondary to acute healthcare acquired pneumonia This is a 75-year-old female, familiar to my service, patient was recently at [facility], and she was initially admitted on 01/05/20. She was eventually discharged to a rehab facility on 02/19/20. Patient had many medical problems during her last admission included acute GI bleeding, acute on chronic diastolic congestive heart failure, acute covid 19 pneumonitis, H influenza pneumonia, and recurrent urinary tract infection. chronic kidney disease, hypertension, hypoxic respiratory failure secondary to pneumonia, obesity with BMI of 35.9, patient required PEG tube placement while she was in the hospital. She was seen by many consultants during her last hospital admission. Patient was eventually discharged to rehab facility on 02/19/20. However the patient was in the rehab facility for less than one day, apparently she developed worsening mental status, worsening shortness of breath. Hence the patient was transferred to [facility] in [facility], admitted for few days, and she continued to worsen, there was a concern about ongoing GI blood losses and hemoglobin. There is also a concern about her worsening pulmonary status, patient was transferred to [facility] and this consult was initiated. Apparently the day of her transferred to [facility], patient was intubated and required mechanical ventilation. Upon my evaluation the patient today in the ICU, patient is on assist control rate of 14, tidal volume is 480, FiO2 45% and PEEP of 5. ABG showed a pO2 of 130 pCO2 of 33 pH of 7.47. After reviewing the ABG, her ventilator settings were changed to tolerate volume is 450 assist-control rate 18 and kept her on 45% FiO2. Chest x-ray showed minimal bilateral infiltrates. Urinalysis is consistent with pyuria and bacteriuria. Hemoglobin is noted to be 7.3. WBC count is 19.9. And BUN is 78 creatinine 1.47. Patient was empirically started on cefepime for presumptive urinary tract infection and pneumonia patient had previous pseudomonal urinary tract infection. Not much history could be obtained from the patient most of the information obtained so far is from the chart Patient was reevaluated today on 02/25/2020, remains in the ICU, intubated and mechanically ventilated. She is on assist control rate of 18 tidal volume 455- 45% PEEP of 5. ABG showed a pO2 of 166 pCO2 of 32 pH of 7.49. On propofol at 30 mcg/kg/m, IV fluid 0.9 normal saline at 65 mL per hour. Remains on enteral feeding. She is also on cefepime empirically for presumptive pneumonia and urinary tract infection. We'll culture so far is showing gram-negative bacilli. Labs today were reviewed, WBC count is 20.2 hemoglobin is 7.2. Basic metabolic profile is unremarkable except for BUN of 79 creatinine of 1.49. Chest x-ray showed multifocal infiltrates bilaterally. Reevaluated today on 02/26/2020, patient remains in the ICU, she was weaned and extubated yesterday. She is now on room air with O2 saturation 96%, IV fluid is at KVO, patient is in sinus rhythm, she is hemodynamically stable, urine cultures are positive for gram-negative bacilli, final identification is pending. Patient did receive 1 unit of blood since she was admitted to the hospital. No active bleeding is noted. Patient was extubated yesterday, and she seems to have tolerated the extubation quite well. My plan is to transfer the patient today to a regular medical floor. Continues to have leukocytosis with WBC count of 19.7. Renal functioning remains borderline, creatinine is 1.61. On 02/27/2020 patient seen in follow-up on medical floor, patient was transferred out of intensive care unit yesterday, on today's exam she is quite encephalopathic, she opens eyes to vigorous stimulation however she is not verba lly responding, her pulse ox was 95% on room air, however she is tachypneic, and breathing very shallowly, vital signs have been stable, she's been afebrile. Today's chest x-ray has been reviewed showing worsening bilateral multifocal edema and/or infiltrates. Today's labs showed an increasing white count up to 21.8, from previous 19.7 on yesterday's labs, hemoglobin is 9.3, sodium is 150, potassium is 3.7, chloride is 112, anion gap has increased To 14.1, B1 is 90 creatinine is 2.0, renal function has worsened, patient is being nourished via her PEG tube, and is currently receiving Nepro tube feedings at 35, however she is only receiving 30 mL of free water through the PEG tube every 4 hours. She has not been able to take anything by mouth in view of current dysphagia and aspiration. Patient will be placed on BiPAP support. She is already on antibiotics for pseudomonal urinary tract infection. The patient is seen today 07/28/2020 follow-up on the regular medical floor. She continues to have issues with waxing and waning mentation. She remains on BiPAP 12/428% FiO2. Blood gases were drawn and a pO2 of 111, CO2 38 and a pH of 7.43. No evidence of hypercapnia or hypoxemia and sodium is improved to 141. Creatinine 2.04. White count 15.2. Hemoglobin 8.0. She is status post 1 unit of packed red blood cells this admission. She remains on DuoNeb inhalations, Pulmicort inhalations, antibiotics in the form of meropenem. Urine culture was positive for pseudomonas aeruginosa. Objective - Vital Signs Vital signs: Vital Signs Temp 97.1 F L 02/28/20 07:46 Pulse 84 02/28/20 12:18 Resp 24 02/28/20 07:46 BP 102/67 02/28/20 07:46 Pulse Ox 100 02/28/20 07:46 Intake & Output 02/27/20 02/28/20 02/28/20 18:59 06:59 18:59 Intake Total 0 770 Output Total 600 150 100 Balance -600 -150 670 Weight 102.5 kg Intake: Oral 0 Tube Feeding 770 Output: Urine 600 150 100 Other: Voiding Method Indwelling Catheter Indwelling Catheter # Bowel Movements 1 - Exam GENERAL EXAM: Quite drowsy, 75-year-old female patient, on BiPAP 12 over 4 and 280% FiO2, breathing shallowly, comfortable in no apparent distress. HEAD: Normocephalic/atraumatic. EYES: Normal reaction of pupils, equal size. Conjunctiva pink, sclera white. NOSE: Clear with pink turbinates. THROAT: No erythema or exudates. NECK: No masses, no JVD, no thyroid enlargement, no adenopathy. CHEST: No chest wall deformity. Symmetrical expansion. LUNGS: Equal air entry with diminished breath sounds, CVS: Regular rate and rhythm, normal S1 and S2, no gallops, no murmurs, no rubs ABDOMEN: Soft, nontender. No hepatosplenomegaly, normal bowel sounds, no guarding or rigidity. EXTREMITIES: No clubbing, no edema, no cyanosis, 2+ pulses and upper and lower extremities. MUSCULOSKELETAL: Muscle strength and tone normal. SPINE: No scoliosis or deformity SKIN: No rashes CENTRAL NERVOUS SYSTEM: Drowsy, opens eyes but does not verbally respond. No focal deficits, tone is normal in all 4 extremities. - Labs CBC & Chem 7: 02/28/20 11:32 02/28/20 11:32 Labs: Abnormal Lab Results - Last 24 Hours (Table) 02/27/20 02/27/20 02/28/20 Range/Units 18:08 21:02 00:37 WBC (3.8-10.6) k/uL RBC (3.80-5.40) m/uL Hgb (11.4-16.0) gm/dL Hct (34.0-46.0) % RDW (11.5-15.5) % Neutrophils # (Manual) (1.3-7.7) k/uL Lymphocytes # (Manual) (1.0-4.8) k/uL ABG pO2 (83-108) mmHg ABG HCO3 (21-25) mmol/L ABG Total CO2 (19-24) mmol/L ABG O2 Saturation (94-97) % Chloride (98-107) mmol/L BUN (7-17) mg/dL Creatinine (0.52-1.04) mg/dL Glucose (74-99) mg/dL POC Glucose (mg/dL) 175 H 151 H 155 H (75-99) mg/dL Calcium (8.4-10.2) mg/dL Total Protein (6.3-8.2) g/dL Albumin (3.5-5.0) g/dL 02/28/20 02/28/20 02/28/20 Range/Units 06:01 10:58 11:32 WBC (3.8-10.6) k/uL RBC (3.80-5.40) m/uL Hgb (11.4-16.0) gm/dL Hct (34.0-46.0) % RDW (11.5-15.5) % Neutrophils # (Manual) (1.3-7.7) k/uL Lymphocytes # (Manual) (1.0-4.8) k/uL ABG pO2 (83-108) mmHg ABG HCO3 (21-25) mmol/L ABG Total CO2 (19-24) mmol/L ABG O2 Saturation (94-97) % Chloride 109 H (98-107) mmol/L BUN 91 H (7-17) mg/dL Creatinine 2.04 H (0.52-1.04) mg/dL Glucose 100 H (74-99) mg/dL POC Glucose (mg/dL) 123 H 104 H (75-99) mg/dL Calcium 8.2 L (8.4-10.2) mg/dL Total Protein 3.9 L (6.3-8.2) g/dL Albumin 2.0 L (3.5-5.0) g/dL 02/28/20 02/28/20 Range/Units 11:32 11:46 WBC 15.2 H (3.8-10.6) k/uL RBC 2.65 L (3.80-5.40) m/uL Hgb 8.0 L (11.4-16.0) gm/dL Hct 24.9 L (34.0-46.0) % RDW 16.0 H (11.5-15.5) % Neutrophils # (Manual) 13.60 H (1.3-7.7) k/uL Lymphocytes # (Manual) 0.30 L (1.0-4.8) k/uL ABG pO2 111 H (83-108) mmHg ABG HCO3 26 H (21-25) mmol/L ABG Total CO2 27 H (19-24) mmol/L ABG O2 Saturation 99.5 H (94-97) % Chloride (98-107) mmol/L BUN (7-17) mg/dL Creatinine (0.52-1.04) mg/dL Glucose (74-99) mg/dL POC Glucose (mg/dL) (75-99) mg/dL Calcium (8.4-10.2) mg/dL Total Protein (6.3-8.2) g/dL Albumin (3.5-5.0) g/dL Microbiology - Last 24 Hours (Table) 02/26/20 12:00 Urine Culture - Final Urine,Voided Assessment and Plan Assessment: 1 Acute hypoxic respiratory failure secondary to debility of healthcare acquired pneumonia, recent required intubation and placement on mechanical ventilator, was successfully weaned and extubated on 02/25/2020, transfer out of intensive care unit on 02/26/2020. Currently on BiPAP 12 over 4 and 28%. No evidence of hypercapnia with a CO2 of 38, pO2 111, pH 7.43 on today's gases. 2 Altered mental status of unclear etiology, undergoing 3 Acute urinary tract infection with urine cultures positive for pseudomonas aeruginosa, currently on meropenem 4 Acute kidney injury, current creatinine 2.0 6 Hyperkalemia related to free water deficit 7 Type 2 diabetes mellitus 8 Recent history of hospitalization related to COVID 19 related pneumonia, and GI bleeding 9 History of dysphagia requiring PEG tube placement 10 Dyslipidemia 11 History of chronic diastolic congestive heart failure 12 History of chronic GI blood loss and positive Hemoccult stools, exact etiology is not clear, to be investigated by gastroenterology 13 Chronic anemia possibly related to chronic renal failure 14 Generalized edema secondary to hypoalbuminemia 15 Severe sepsis, 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 Plan: The patient was seen and evaluated by Dr. Arguelles Her mentation continues to wax and wane ABGs reviewed no significant hypercapnia, pCO2 38 Sodium has improved to 141 today We'll go ahead and obtain a computed tomography scan of the head without contrast Neurology consult, and had seen her on a recent admission We will continue to follow and make further recommendations based on her clinical status I, the cosigning physician, performed a history & physical examination of the patient. Lungs sounds with faint crackles in the posterior bases. Maintaining good O2 saturations in the 90s on 28% FiO2 via BiPAP. I discussed the assessment and plan of care with my nurse practitioner, Candi Horton. I attest to the above note as dictated by her.
--- NOTE | 2020-02-28 15:35 | P.PN ---
Subjective Progress Note Date: 02/28/20 Follow-up for acute kidney injury. Objective - Vital Signs Vital signs: Vital Signs Temp 97.1 F L 02/28/20 07:46 Pulse 88 02/28/20 15:13 Resp 24 02/28/20 07:46 BP 102/67 02/28/20 07:46 Pulse Ox 100 02/28/20 07:46 Intake & Output 02/27/20 02/28/20 02/28/20 18:59 06:59 18:59 Intake Total 0 770 Output Total 600 150 100 Balance -600 -150 670 Weight 102.5 kg Intake: Oral 0 Tube Feeding 770 Output: Urine 600 150 100 Other: Voiding Method Indwelling Catheter Indwelling Catheter # Bowel Movements 1 - Exam No acute distress S1-S2 heard Decreased breath sounds No edema - Labs CBC & Chem 7: 02/28/20 11:32 02/28/20 11:32 Labs: Abnormal Lab Results - Last 24 Hours (Table) 02/27/20 02/27/20 02/28/20 Range/Units 18:08 21:02 00:37 WBC (3.8-10.6) k/uL RBC (3.80-5.40) m/uL Hgb (11.4-16.0) gm/dL Hct (34.0-46.0) % RDW (11.5-15.5) % Neutrophils # (Manual) (1.3-7.7) k/uL Lymphocytes # (Manual) (1.0-4.8) k/uL ABG pO2 (83-108) mmHg ABG HCO3 (21-25) mmol/L ABG Total CO2 (19-24) mmol/L ABG O2 Saturation (94-97) % Chloride (98-107) mmol/L BUN (7-17) mg/dL Creatinine (0.52-1.04) mg/dL Glucose (74-99) mg/dL POC Glucose (mg/dL) 175 H 151 H 155 H (75-99) mg/dL Calcium (8.4-10.2) mg/dL Total Protein (6.3-8.2) g/dL Albumin (3.5-5.0) g/dL 02/28/20 02/28/20 02/28/20 Range/Units 06:01 10:58 11:32 WBC (3.8-10.6) k/uL RBC (3.80-5.40) m/uL Hgb (11.4-16.0) gm/dL Hct (34.0-46.0) % RDW (11.5-15.5) % Neutrophils # (Manual) (1.3-7.7) k/uL Lymphocytes # (Manual) (1.0-4.8) k/uL ABG pO2 (83-108) mmHg ABG HCO3 (21-25) mmol/L ABG Total CO2 (19-24) mmol/L ABG O2 Saturation (94-97) % Chloride 109 H (98-107) mmol/L BUN 91 H (7-17) mg/dL Creatinine 2.04 H (0.52-1.04) mg/dL Glucose 100 H (74-99) mg/dL POC Glucose (mg/dL) 123 H 104 H (75-99) mg/dL Calcium 8.2 L (8.4-10.2) mg/dL Total Protein 3.9 L (6.3-8.2) g/dL Albumin 2.0 L (3.5-5.0) g/dL 02/28/20 02/28/20 Range/Units 11:32 11:46 WBC 15.2 H (3.8-10.6) k/uL RBC 2.65 L (3.80-5.40) m/uL Hgb 8.0 L (11.4-16.0) gm/dL Hct 24.9 L (34.0-46.0) % RDW 16.0 H (11.5-15.5) % Neutrophils # (Manual) 13.60 H (1.3-7.7) k/uL Lymphocytes # (Manual) 0.30 L (1.0-4.8) k/uL ABG pO2 111 H (83-108) mmHg ABG HCO3 26 H (21-25) mmol/L ABG Total CO2 27 H (19-24) mmol/L ABG O2 Saturation 99.5 H (94-97) % Chloride (98-107) mmol/L BUN (7-17) mg/dL Creatinine (0.52-1.04) mg/dL Glucose (74-99) mg/dL POC Glucose (mg/dL) (75-99) mg/dL Calcium (8.4-10.2) mg/dL Total Protein (6.3-8.2) g/dL Albumin (3.5-5.0) g/dL Microbiology - Last 24 Hours (Table) 02/26/20 12:00 Urine Culture - Final Urine,Voided Assessment and Plan Assessment: #1 acute kidney injury secondary to prerenal process. 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 Avoid nephrotoxic agents and hypotensive episodes.
--- NOTE | 2020-02-28 16:21 | CT ---
EXAMINATION TYPE: CT brain wo con DATE OF EXAM: 02/28/2020 COMPARISON: October 19, 2019 HISTORY: AMS CT DLP: 1036.2 mGycm Automated exposure control for dose reduction was used. Images of the brain were obtained without contrast. There is cerebral cortical atrophy. There is no mass effect nor midline shift. There is no sign of in tracranial hemorrhage. The calvarium is intact. There is mucosal thickening in the right maxillary si nus and right side sphenoid sinus. IMPRESSION: Cerebral atrophy and chronic small vessel ischemia. No acute intracranial abnormality. No change comp ared to old exam.
[2020-02-28 17:21] LABS: Glucose,Whole Blood 135 mg/dL (75-99)
--- NOTE | 2020-02-28 17:55 | PN ---
PROGRESS NOTE DATE OF SERVICE: 02/28/2020 REASON FOR FOLLOWUP: 1. Pseudomonas urinary tract infection. 2. Possible aspiration pneumonia. INTERVAL HISTORY: The patient is afebrile. The patient remains on BiPAP. The patient is hemodynamically stable. No vomiting, diarrhea or other changes reported by the nursing staff. Patient herself was unable to provide any history. PHYSICAL EXAMINATION: Blood pressure 109/66, pulse of 91, temperature 97.2. General description is an elderly female lying in bed in no distress. RESPIRATORY SYSTEM: Unlabored breathing with decreased breath sounds at the base. No wheeze. HEART: S1, S2. Regular rate and rhythm. ABDOMEN: Soft. No tenderness. LABS: Hemoglobin is 8, white count down to 15.8, BUN of 21, creatinine is 2.04. DIAGNOSTIC IMPRESSION AND PLAN: Patient with a drug-resistant Pseudomonas urinary tract infection possible aspiration pneumonia. The patient is currently covered with meropenem. White count is showing a downward trend. To continue and monitor clinical course closely. MMODL / IJN: [id number] / BIN
[2020-02-28] MEDS: INSULIN DETEMIR (LEVEMIR) 100 UNIT/ML SYR SQ SCH (20:54)
[2020-02-28 21:12] LABS: Glucose,Whole Blood 137 mg/dL (75-99)
[2020-02-29 00:21] LABS: Glucose,Whole Blood 153 mg/dL (75-99)
[2020-02-29] MEDS: INSULIN ASPART (NovoLOG) 100 UNIT/ML VIAL SQ SCH ×8 (00:25→17:22)
[2020-02-29 05:33] LABS: Glucose,Whole Blood 78 mg/dL (75-99)
[2020-02-29 07:05] LABS: Glucose,Whole Blood 98 mg/dL (75-99)
[2020-02-29] MEDS: CHOLECALCIFEROL 1,000 UNIT TAB PO SCH (08:14)
[2020-02-29] MEDS: HEPARIN SODIUM,PORCINE 5,000 UNIT/ML 1 ML VIAL SQ SCH ×2 (08:14→19:28)
[2020-02-29] MEDS: MULTIVITAMINS, THERA 1 EACH TAB PO SCH (08:15)
[2020-02-29] MEDS: ASCORBIC ACID 500 MG TAB PO SCH ×2 (08:15→19:28)
[2020-02-29] MEDS: METOPROLOL TARTRATE 50 MG TAB PO SCH ×2 (08:15→16:15)
[2020-02-29] MEDS: MEROPENEM 1 GM in SODIUM CHLORIDE 0.9% 100 ML IVPB SCH ×2 (08:16→19:29)
[2020-02-29] MEDS: ZINC SULFATE 220 MG CAP PO SCH (08:23)
[2020-02-29] MEDS: BUDESONIDE 0.5 MG/2 ML NEBU INHALATION SCH ×2 (08:34→21:02)
[2020-02-29] MEDS: IPRATROPIUM-ALBUTEROL 3 ML NEB INHALATION SCH ×4 (08:34→20:56)
[2020-02-29 11:24] LABS: Glucose,Whole Blood 118 mg/dL (75-99)
[2020-02-29] MEDS: FOLIC ACID 1 MG TAB PO SCH ×2 (11:25→11:30)
[2020-02-29] MEDS: SODIUM CHLORIDE 0.9% 1,000 ML IV SCH (11:30)
[2020-02-29] MEDS: THIAMINE 100 MG TAB PO SCH (11:30)
--- NOTE | 2020-02-29 13:02 | P.PN ---
Subjective Progress Note Date: 02/29/20 Principal diagnosis: Acute hypoxic respiratory failure secondary to acute healthcare acquired pneumonia This is a 75-year-old female, familiar to my service, patient was recently at [facility], and she was initially admitted on 01/05/20. She was eventually discharged to a rehab facility on 02/19/20. Patient had many medical problems during her last admission included acute GI bleeding, acute on chronic diastolic congestive heart failure, acute covid 19 pneumonitis, H influenza pneumonia, and recurrent urinary tract infection. chronic kidney disease, hypertension, hypoxic respiratory failure secondary to pneumonia, obesity with BMI of 35.9, patient required PEG tube placement while she was in the hospital. She was seen by many consultants during her last hospital admission. Patient was eventually discharged to rehab facility on 02/19/20. However the patient was in the rehab facility for less than one day, apparently she developed worsening mental status, worsening shortness of breath. Hence the patient was transferred to [facility] in [facility], admitted for few days, and she continued to worsen, there was a concern about ongoing GI blood losses and hemoglobin. There is also a concern about her worsening pulmonary status, patient was transferred to [facility] and this consult was initiated. Apparently the day of her transferred to [facility], patient was intubated and required mechanical ventilation. Upon my evaluation the patient today in the ICU, patient is on assist control rate of 14, tidal volume is 480, FiO2 45% and PEEP of 5. ABG showed a pO2 of 130 pCO2 of 33 pH of 7.47. After reviewing the ABG, her ventilator settings were changed to tolerate volume is 450 assist-control rate 18 and kept her on 45% FiO2. Chest x-ray showed minimal bilateral infiltrates. Urinalysis is consistent with pyuria and bacteriuria. Hemoglobin is noted to be 7.3. WBC count is 19.9. And BUN is 78 creatinine 1.47. Patient was empirically started on cefepime for presumptive urinary tract infection and pneumonia patient had previous pseudomonal urinary tract infection. Not much history could be obtained from the patient most of the information obtained so far is from the chart Patient was reevaluated today on 02/25/2020, remains in the ICU, intubated and mechanically ventilated. She is on assist control rate of 18 tidal volume 455- 45% PEEP of 5. ABG showed a pO2 of 166 pCO2 of 32 pH of 7.49. On propofol at 30 mcg/kg/m, IV fluid 0.9 normal saline at 65 mL per hour. Remains on enteral feeding. She is also on cefepime empirically for presumptive pneumonia and urinary tract infection. We'll culture so far is showing gram-negative bacilli. Labs today were reviewed, WBC count is 20.2 hemoglobin is 7.2. Basic metabolic profile is unremarkable except for BUN of 79 creatinine of 1.49. Chest x-ray showed multifocal infiltrates bilaterally. Reevaluated today on 02/26/2020, patient remains in the ICU, she was weaned and extubated yesterday. She is now on room air with O2 saturation 96%, IV fluid is at KVO, patient is in sinus rhythm, she is hemodynamically stable, urine cultures are positive for gram-negative bacilli, final identification is pending. Patient did receive 1 unit of blood since she was admitted to the hospital. No active bleeding is noted. Patient was extubated yesterday, and she seems to have tolerated the extubation quite well. My plan is to transfer the patient today to a regular medical floor. Continues to have leukocytosis with WBC count of 19.7. Renal functioning remains borderline, creatinine is 1.61. On 02/27/2020 patient seen in follow-up on medical floor, patient was transferred out of intensive care unit yesterday, on today's exam she is quite encephalopathic, she opens eyes to vigorous stimulation however she is not verba lly responding, her pulse ox was 95% on room air, however she is tachypneic, and breathing very shallowly, vital signs have been stable, she's been afebrile. Today's chest x-ray has been reviewed showing worsening bilateral multifocal edema and/or infiltrates. Today's labs showed an increasing white count up to 21.8, from previous 19.7 on yesterday's labs, hemoglobin is 9.3, sodium is 150, potassium is 3.7, chloride is 112, anion gap has increased To 14.1, B1 is 90 creatinine is 2.0, renal function has worsened, patient is being nourished via her PEG tube, and is currently receiving Nepro tube feedings at 35, however she is only receiving 30 mL of free water through the PEG tube every 4 hours. She has not been able to take anything by mouth in view of current dysphagia and aspiration. Patient will be placed on BiPAP support. She is already on antibiotics for pseudomonal urinary tract infection. The patient is seen today 07/28/2020 follow-up on the regular medical floor. She continues to have issues with waxing and waning mentation. She remains on BiPAP 12/428% FiO2. Blood gases were drawn and a pO2 of 111, CO2 38 and a pH of 7.43. No evidence of hypercapnia or hypoxemia and sodium is improved to 141. Creatinine 2.04. White count 15.2. Hemoglobin 8.0. She is status post 1 unit of packed red blood cells this admission. She remains on DuoNeb inhalations, Pulmicort inhalations, antibiotics in the form of meropenem. Urine culture was positive for pseudomonas aeruginosa. The patient is seen today 02/29/2020 in follow-up on the regular medical floor. She does open her eyes to verbal stimuli. She is following some simple commands today. Computed tomography scan of the brain revealed no acute intracranial abnormalities. She is remaining on BiPAP 12 over 4 and 28% FiO2. O2 saturations up to 100%. Blood glucose 118. Continued on bronchodilators and meropenem. Objective - Vital Signs Vital signs: Vital Signs Temp 98.0 F 02/29/20 07:39 Pulse 88 02/29/20 12:49 Resp 24 02/29/20 07:39 BP 105/62 02/29/20 07:39 Pulse Ox 100 02/29/20 02:00 Intake & Output 02/28/20 02/29/20 02/29/20 18:59 06:59 18:59 Intake Total 770 420 280 Output Total 175 580 290 Balance 595 -160 -10 Weight 103 kg Intake: Oral 0 0 Tube Feeding 770 420 280 Output: Urine 175 580 290 Uretheral (Pablo) 75 290 Other: Voiding Method Indwelling Catheter Indwelling Catheter Indwelling Catheter # Voids 1 1 # Bowel Movements 1 1 1 - Exam GENERAL EXAM: Quite drowsy, 75-year-old female patient, on BiPAP 12 over 4 and 28% FiO2, breathing shallowly, comfortable in no apparent distress. HEAD: Normocephalic/atraumatic. EYES: Normal reaction of pupils, equal size. Conjunctiva pink, sclera white. NOSE: Clear with pink turbinates. THROAT: No erythema or exudates. NECK: No masses, no JVD, no thyroid enlargement, no adenopathy. CHEST: No chest wall deformity. Symmetrical expansion. LUNGS: Equal air entry with diminished breath sounds, CVS: Regular rate and rhythm, normal S1 and S2, no gallops, no murmurs, no rubs ABDOMEN: Soft, nontender. No hepatosplenomegaly, normal bowel sounds, no guarding or rigidity. EXTREMITIES: No clubbing, no edema, no cyanosis, 2+ pulses and upper and lower extremities. MUSCULOSKELETAL: Muscle strength and tone normal. SPINE: No scoliosis or deformity SKIN: No rashes CENTRAL NERVOUS SYSTEM: Drowsy, opens eyes but does not verbally respond. No focal deficits, tone is normal in all 4 extremities. - Labs CBC & Chem 7: 02/28/20 11:32 02/28/20 11:32 Labs: Abnormal Lab Results - Last 24 Hours (Table) 02/28/20 02/28/20 02/28/20 Range/Units 11:32 17:20 20:52 Neutrophils # (Manual) 13.60 H (1.3-7.7) k/uL Lymphocytes # (Manual) 0.30 L (1.0-4.8) k/uL POC Glucose (mg/dL) 135 H 137 H (75-99) mg/dL 02/29/20 02/29/20 Range/Units 00:17 11:23 Neutrophils # (Manual) (1.3-7.7) k/uL Lymphocytes # (Manual) (1.0-4.8) k/uL POC Glucose (mg/dL) 153 H 118 H (75-99) mg/dL Microbiology - Last 24 Hours (Table) 02/27/20 15:51 Blood Culture - Preliminary Blood No Growth after 24 hours Assessment and Plan Assessment: 1 Acute hypoxic respiratory failure secondary to debility of healthcare acquired pneumonia, recent required intubation and placement on mechanical vent ilator, was successfully weaned and extubated on 02/25/2020, transfer out of intensive care unit on 02/26/2020. Currently on BiPAP 12 over 4 and 28%. No evidence of hypercapnia with a CO2 of 38, pO2 111, pH 7.43 on recent arterial blood gases. Computed tomography scan of the brain revealed no acute intracranial abnormalities. 2 Altered mental status of unclear etiology, undergoing 3 Acute urinary tract infection with urine cultures positive for pseudomonas aeruginosa, currently on meropenem 4 Acute kidney injury, current creatinine 2.0 6 Hyperkalemia related to free water deficit 7 Type 2 diabetes mellitus 8 Recent history of hospitalization related to COVID 19 related pneumonia, and GI bleeding 9 History of dysphagia requiring PEG tube placement 10 Dyslipidemia 11 History of chronic diastolic congestive heart failure 12 History of chronic GI blood loss and positive Hemoccult stools, exact etiology is not clear, to be investigated by gastroenterology 13 Chronic anemia possibly related to chronic renal failure 14 Generalized edema secondary to hypoalbuminemia 15 Severe sepsis, 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 Plan: The patient was seen and evaluated by Dr. Arguelles Her mentation continues to wax and wane Computed tomography scan of the brain revealed no acute intracranial abnormalities Neurology consult pending We will continue to follow and make further recommendations based on her clinical status I, the cosigning physician, performed a history & physical examination of the patient. Lungs sounds with faint crackles in the posterior bases. Maintaining good O2 saturations in the 90s on 28% FiO2 via BiPAP. I discussed the assessment and plan of care with my nurse practitioner, Candi Horton. I attest to the above note as dictated by her.
--- NOTE | 2020-02-29 14:07 | P.PN ---
Subjective Progress Note Date: 02/29/20 Follow-up for acute kidney injury. Objective - Vital Signs Vital signs: Vital Signs Temp 98.0 F 02/29/20 07:39 Pulse 88 02/29/20 12:49 Resp 24 02/29/20 07:39 BP 105/62 02/29/20 07:39 Pulse Ox 100 02/29/20 02:00 Intake & Output 02/28/20 02/29/20 02/29/20 18:59 06:59 18:59 Intake Total 770 420 280 Output Total 175 580 290 Balance 595 -160 -10 Weight 103 kg Intake: Oral 0 0 Tube Feeding 770 420 280 Output: Urine 175 580 290 Uretheral (Pablo) 75 290 Other: Voiding Method Indwelling Catheter Indwelling Catheter Indwelling Catheter # Voids 1 1 # Bowel Movements 1 1 1 - Exam No acute distress S1-S2 heard Decreased breath sounds No edema - Labs CBC & Chem 7: 02/28/20 11:32 02/28/20 11:32 Labs: Abnormal Lab Results - Last 24 Hours (Table) 02/28/20 02/28/20 02/29/20 Range/Units 17:20 20:52 00:17 POC Glucose (mg/dL) 135 H 137 H 153 H (75-99) mg/dL 02/29/20 Range/Units 11:23 POC Glucose (mg/dL) 118 H (75-99) mg/dL Microbiology - Last 24 Hours (Table) 02/27/20 15:51 Blood Culture - Preliminary Blood No Growth after 24 hours Assessment and Plan Assessment: #1 acute kidney injury secondary to prerenal process. 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 Avoid nephrotoxic agents and hypotensive episodes. #2 labs in the morning
--- NOTE | 2020-02-29 16:17 | P.PN ---
Subjective Progress Note Date: 02/28/20 02/27/2020 patient is seen and evaluated in room with RN at bedside, patient was transferred out of intensive care unit yesterday; patient is quite encephalopathic and only opens eyes to vigorous stimulation however she is not verbally responding, her pulse ox was 95% on room air, however she is tachypneic, and breathing very shallowly, vital signs have been stable, she's been afebrile. chest x-ray has been reviewed showing worsening bilateral multifocal edema and/or infiltrates. Today's labs showed an increasing white count up to 21.8, from previous 19.7 on yesterday's labs, hemoglobin is 9.3, sodium is 150, potassium is 3.7, chloride is 112, anion gap has increased To 14.1, BUN is 90 creatinine is 2.0, renal function has worsened, patient is being nourished via her PEG tube, and is currently receiving Nepro tube feedings at 35, nephrology is following and have increased to 50 mL of free water through the PEG tube every 4 hours. She has not been able to take anything by mouth in view of current dysphagia and aspiration. Patient will be placed on BiPAP support. She is already on antibiotics for pseudomonal urinary tract infection. Called patient's daughter Char Morales at [phone] and give her a detailed account of patient's declining condition; daughter wants to continue with aggressive treatment that possible re-intubation if needed 02/28/2020 Patient is seen and follow-up on the regular medical floor. She continues to have issues with waxing and waning mentation. She remains on BiPAP 12/428% FiO2. Blood gases were drawn and a pO2 of 111, CO2 38 and a pH of 7.43. No evidence of hypercapnia or hypoxemia and sodium is improved to 141. Creatinine 2.04. White count 15.2. Hemoglobin 8.0. She is status post 1 unit of packed red blood cells this admission. She remains on DuoNeb inhalations, Pulmicort i nhalations, antibiotics in the form of meropenem. Urine culture was positive for pseudomonas aeruginosa. Patient's oxygenation continues to wax and wane; ABGs done revealed pCO2 of 38; senior grant writer service recommending CT of the head without contrast with neurology consult Objective - Vital Signs Vital signs: Vital Signs Temp 97.1 F L 02/28/20 07:46 Pulse 88 02/28/20 15:13 Resp 24 02/28/20 07:46 BP 102/67 02/28/20 07:46 Pulse Ox 100 02/28/20 07:46 Intake & Output 02/27/20 02/28/20 02/28/20 18:59 06:59 18:59 Intake Total 0 770 Output Total 600 150 100 Balance -600 -150 670 Weight 102.5 kg Intake: Oral 0 Tube Feeding 770 Output: Urine 600 150 100 Other: Voiding Method Indwelling Catheter Indwelling Catheter # Bowel Movements 1 - Exam GENERAL EXAM: Quite drowsy, 75-year-old white female, on room air, breathing shallowly, and respirations are tachypneic, daily responding to tactile stimulation HEAD: Normocephalic/atraumatic. EYES: Normal reaction of pupils, equal size. Conjunctiva pink, sclera white. NOSE: Clear with pink turbinates. THROAT: No erythema or exudates. NECK: No masses, no JVD, no thyroid enlargement, no adenopathy. CHEST: No chest wall deformity. Symmetrical expansion. LUNGS: Equal air entry with diminished breath sounds, CVS: Regular rate and rhythm, normal S1 and S2, no gallops, no murmurs, no rubs ABDOMEN: Soft, nontender. No hepatosplenomegaly, normal bowel sounds, no guardi ng or rigidity. EXTREMITIES: No clubbing, no edema, no cyanosis, 2+ pulses and upper and lower extremities. - Labs CBC & Chem 7: 02/28/20 11:32 02/28/20 11:32 Labs: Abnormal Lab Results - Last 24 Hours (Table) 02/27/20 02/27/20 02/28/20 Range/Units 18:08 21:02 00:37 WBC (3.8-10.6) k/uL RBC (3.80-5.40) m/uL Hgb (11.4-16.0) gm/dL Hct (34.0-46.0) % RDW (11.5-15.5) % Neutrophils # (Manual) (1.3-7.7) k/uL Lymphocytes # (Manual) (1.0-4.8) k/uL ABG pO2 (83-108) mmHg ABG HCO3 (21-25) mmol/L ABG Total CO2 (19-24) mmol/L ABG O2 Saturation (94-97) % Chloride (98-107) mmol/L BUN (7-17) mg/dL Creatinine (0.52-1.04) mg/dL Glucose (74-99) mg/dL POC Glucose (mg/dL) 175 H 151 H 155 H (75-99) mg/dL Calcium (8.4-10.2) mg/dL Total Protein (6.3-8.2) g/dL Albumin (3.5-5.0) g/dL 02/28/20 02/28/20 02/28/20 Range/Units 06:01 10:58 11:32 WBC (3.8-10.6) k/uL RBC (3.80-5.40) m/uL Hgb (11.4-16.0) gm/dL Hct (34.0-46.0) % RDW (11.5-15.5) % Neutrophils # (Manual) (1.3-7.7) k/uL Lymphocytes # (Manual) (1.0-4.8) k/uL ABG pO2 (83-108) mmHg ABG HCO3 (21-25) mmol/L ABG Total CO2 (19-24) mmol/L ABG O2 Saturation (94-97) % Chloride 109 H (98-107) mmol/L BUN 91 H (7-17) mg/dL Creatinine 2.04 H (0.52-1.04) mg/dL Glucose 100 H (74-99) mg/dL POC Glucose (mg/dL) 123 H 104 H (75-99) mg/dL Calcium 8.2 L (8.4-10.2) mg/dL Total Protein 3.9 L (6.3-8.2) g/dL Albumin 2.0 L (3.5-5.0) g/dL 02/28/20 02/28/20 Range/Units 11:32 11:46 WBC 15.2 H (3.8-10.6) k/uL RBC 2.65 L (3.80-5.40) m/uL Hgb 8.0 L (11.4-16.0) gm/dL Hct 24.9 L (34.0-46.0) % RDW 16.0 H (11.5-15.5) % Neutrophils # (Manual) 13.60 H (1.3-7.7) k/uL Lymphocytes # (Manual) 0.30 L (1.0-4.8) k/uL ABG pO2 111 H (83-108) mmHg ABG HCO3 26 H (21-25) mmol/L ABG Total CO2 27 H (19-24) mmol/L ABG O2 Saturation 99.5 H (94-97) % Chloride (98-107) mmol/L BUN (7-17) mg/dL Creatinine (0.52-1.04) mg/dL Glucose (74-99) mg/dL POC Glucose (mg/dL) (75-99) mg/dL Calcium (8.4-10.2) mg/dL Total Protein (6.3-8.2) g/dL Albumin (3.5-5.0) g/dL Microbiology - Last 24 Hours (Table) 02/26/20 12:00 Urine Culture - Final Urine,Voided Assessment and Plan Assessment: -Acute hypoxic respiratory failure/ secondary to sepsis and encephalopathy. Patient was extubated on 02/25/2020 -Toxic encephalopathy: Secondary to sepsis most probably from urinary tract infection Pablo catheter will be changed patient has Pseudomonas in the urine patient is presently on cefepime although patient hasn't remitted susceptibility to cefepime as well as Zosyn. We will repeat urine analysis since the Pablo catheter was replaced patient may or may not need antibiotics we'll make the decision depending on urinalysis results. Infectious disease was consulted. -Pseudomonal UTI -Sepsis secondary to UTI -Chronic kidney disease: Nephrology is following the patient IV fluids as per nephrology. Patient blood pressure is low normal at this time. Patient is also receiving albumin aspirin nephrology -Type 2 diabetes mellitus. -Recent Covid 19 infection. -Hyperlipidemia -Dysphagia for which patient has a PEG tube -DVT prophylaxis: Subcutaneous heparin
--- NOTE | 2020-02-29 16:20 | P.PN ---
Subjective Progress Note Date: 02/29/20 02/27/2020 patient is seen and evaluated in room with RN at bedside, patient was transferred out of intensive care unit yesterday; patient is quite encephalopathic and only opens eyes to vigorous stimulation however she is not verbally responding, her pulse ox was 95% on room air, however she is tachypneic, and breathing very shallowly, vital signs have been stable, she's been afebrile. chest x-ray has been reviewed showing worsening bilateral multifocal edema and/or infiltrates. Today's labs showed an increasing white count up to 21.8, from previous 19.7 on yesterday's labs, hemoglobin is 9.3, sodium is 150, potassium is 3.7, chloride is 112, anion gap has increased To 14.1, BUN is 90 creatinine is 2.0, renal function has worsened, patient is being nourished via her PEG tube, and is currently receiving Nepro tube feedings at 35, nephrology is following and have increased to 50 mL of free water through the PEG tube every 4 hours. She has not been able to take anything by mouth in view of current dysphagia and aspiration. Patient will be placed on BiPAP support. She is already on antibiotics for pseudomonal urinary tract infection. Called patient's daughter Char Morales at [phone] and give her a detailed account of patient's declining condition; daughter wants to continue with aggressive treatment that possible re-intubation if needed 02/28/2020 Patient is seen and follow-up on the regular medical floor. She continues to have issues with waxing and waning mentation. She remains on BiPAP 12/428% FiO2. Blood gases were drawn and a pO2 of 111, CO2 38 and a pH of 7.43. No evidence of hypercapnia or hypoxemia and sodium is improved to 141. Creatinine 2.04. White count 15.2. Hemoglobin 8.0. She is status post 1 unit of packed red blood cells this admission. She remains on DuoNeb inhalations, Pulmicort i nhalations, antibiotics in the form of meropenem. Urine culture was positive for pseudomonas aeruginosa. Patient's oxygenation continues to wax and wane; ABGs done revealed pCO2 of 38; boring mill operator for metal service recommending CT of the head without contrast with neurology consult 02/29/2020 Patient is seen and evaluated in follow-up on the regular medical floor. She does open her eyes to verbal stimuli. She is following some simple commands today. Computed tomography scan of the brain revealed no acute intracranial abnormalities. Await further recommendations from neurology She is remaining on BiPAP 12 over 4 and 28% FiO2. O2 saturations up to 100%. Blood glucose 118. Continued on bronchodilators and meropenem. Objective - Vital Signs Vital signs: Vital Signs Temp 98.1 F 02/29/20 14:00 Pulse 91 02/29/20 14:00 Resp 26 H 02/29/20 14:00 BP 111/66 02/29/20 14:00 Pulse Ox 100 02/29/20 14:00 Intake & Output 02/28/20 02/29/20 02/29/20 18:59 06:59 18:59 Intake Total 770 420 560 Output Total 175 580 290 Balance 595 -160 270 Weight 103 kg Intake: Oral 0 0 Tube Feeding 770 420 560 Output: Urine 175 580 290 Uretheral (Pablo) 75 290 Other: Voiding Method Indwelling Catheter Indwelling Catheter Indwelling Catheter # Voids 1 1 # Bowel Movements 1 1 1 - Exam GENERAL EXAM: Quite drowsy, 75-year-old white female, on room air, breathing shallowly, and respirations are tachypneic, daily responding to tactile stimulation HEAD: Normocephalic/atraumatic. EYES: Normal reaction of pupils, equal size. Conjunctiva pink, sclera white. NOSE: Clear with pink turbinates. THROAT: No erythema or exudates. NECK: No masses, no JVD, no thyroid enlargement, no adenopathy. CHEST: No chest wall deformity. Symmetrical expansion. LUNGS: Equal air entry with diminished breath sounds, CVS: Regular rate and rhythm, normal S1 and S2, no gallops, no murmurs, no rubs ABDOMEN: Soft, nontender. No hepatosplenomegaly, normal bowel sounds, no guarding or rigidity. EXTREMITIES: No clubbing, no edema, no cyanosis, 2+ pulses and upper and lower extremities. - Labs CBC & Chem 7: 02/28/20 11:32 02/28/20 11:32 Labs: Abnormal Lab Results - Last 24 Hours (Table) 02/28/20 02/28/20 02/29/20 Range/Units 17:20 20:52 00:17 POC Glucose (mg/dL) 135 H 137 H 153 H (75-99) mg/dL 02/29/20 Range/Units 11:23 POC Glucose (mg/dL) 118 H (75-99) mg/dL Microbiology - Last 24 Hours (Table) 02/27/20 15:51 Blood Culture - Preliminary Blood No Growth after 24 hours Assessment and Plan Assessment: -Acute hypoxic respiratory failure/ secondary to sepsis and encephalopathy. Patient was extubated on 02/25/2020 -Toxic encephalopathy: Secondary to sepsis most probably from urinary tract infection Pablo catheter will be changed patient has Pseudomonas in the urine patient is presently on cefepime although patient hasn't remitted susceptibility to cefepime as well as Zosyn. We will repeat urine analysis since the Pablo catheter was replaced patient may or may not need antibiotics we'll make the decision depending on urinalysis results. Infectious disease was consulted. -Pseudomonal UTI -Sepsis secondary to UTI -Chronic kidney disease: Nephrology is following the patient IV fluids as per nephrology. Patient blood pressure is low normal at this time. Patient is also receiving albumin aspirin nephrology -Type 2 diabetes mellitus. -Recent Covid 19 infection. -Hyperlipidemia -Dysphagia for which patient has a PEG tube -DVT prophylaxis: Subcutaneous heparin
[2020-02-29 17:20] LABS: Glucose,Whole Blood 125 mg/dL (75-99)
[2020-02-29] MEDS: INSULIN DETEMIR (LEVEMIR) 100 UNIT/ML SYR SQ SCH (21:42)
[2020-02-29 21:46] LABS: Glucose,Whole Blood 163 mg/dL (75-99)
--- NOTE | 2020-02-29 21:55 | PN ---
PROGRESS NOTE DATE OF SERVICE: 02/29/2020 REASON FOR FOLLOWUP: Pseudomonas UTI and question of pneumonia. INTERVAL HISTORY: The patient is currently afebrile. The patient remains lethargic and BiPAP- dependent. She is hemodynamically stable, not on any pressor support. No vomiting, diarrhea or any other changes reported by the nursing staff. PHYSICAL EXAMINATION: Blood pressure 111/66, pulse of 85, temperature 98.1. She is 100% on BiPAP. General description is an elderly female lying in bed in no distress. RESPIRATORY SYSTEM: Unlabored breathing with decreased breath sounds at the base. No wheeze. HEART: S1, S2. Regular rate and rhythm. ABDOMEN: Soft. No tenderness. LABS: No new labs have been obtained today. DIAGNOSTIC IMPRESSION AND PLAN: Patient with Pseudomonas aeruginosa urinary tract infection and respiratory distress, concern for possible aspiration pneumonitis. Patient is currently covered with meropenem in view of the resistant pattern of this pathogen and continue supportive care. MMODL / IJN: [id number] / MTDD
[2020-02-29 23:52] LABS: Glucose,Whole Blood 161 mg/dL (75-99)
[2020-03-01] MEDS: INSULIN ASPART (NovoLOG) 100 UNIT/ML VIAL SQ SCH ×10 (00:01→23:40)
[2020-03-01 05:50] LABS: Glucose,Whole Blood 92 mg/dL (75-99)
[2020-03-01] MEDS: CHOLECALCIFEROL 1,000 UNIT TAB PO SCH (07:57)
[2020-03-01] MEDS: MEROPENEM 1 GM in SODIUM CHLORIDE 0.9% 100 ML IVPB SCH ×2 (07:57→20:24)
[2020-03-01] MEDS: ASCORBIC ACID 500 MG TAB PO SCH ×2 (08:01→20:25)
[2020-03-01] MEDS: MULTIVITAMINS, THERA 1 EACH TAB PO SCH (08:01)
[2020-03-01] MEDS: METOPROLOL TARTRATE 50 MG TAB PO SCH ×2 (08:01→18:04)
[2020-03-01] MEDS: HEPARIN SODIUM,PORCINE 5,000 UNIT/ML 1 ML VIAL SQ SCH ×2 (08:02→20:23)
[2020-03-01] MEDS: ZINC SULFATE 220 MG CAP PO SCH (08:02)
[2020-03-01] MEDS: BUDESONIDE 0.5 MG/2 ML NEBU INHALATION SCH ×2 (09:23→21:20)
[2020-03-01] MEDS: IPRATROPIUM-ALBUTEROL 3 ML NEB INHALATION SCH ×4 (09:23→21:21)
[2020-03-01 09:35] LABS: African American GFR (CKD) 17.4 (60.0-200.0); Anion Gap 14.7 mmol/L (4.00-12.00); BUN/Creat Ratio 35.86 Ratio (12.00-20.00); Calcium 7.9 mg/dL (8.7-10.3); Carbon Dioxide 22.3 mmol/L (21.6-31.8); Potassium 4.5 mmol/L (3.5-5.5)
[2020-03-01 11:30] LABS: Glucose,Whole Blood 142 mg/dL (75-99)
[2020-03-01] MEDS: FOLIC ACID 1 MG TAB PO SCH (12:52)
[2020-03-01] MEDS: THIAMINE 100 MG TAB PO SCH (14:19)
[2020-03-01] MEDS: SODIUM CHLORIDE 0.45% 1,000 ML IV SCH (14:19)
--- NOTE | 2020-03-01 15:29 | PN ---
PROGRESS NOTE Patient is seen for followup for acute kidney injury. She currently has an indwelling Pablo catheter. Patient is awake. She has answered simple questions. There is no acute distress. She is not on any IV fluids. Her renal function has worsened with creatinine increased to 2.9 and BUN of 104 from 2.0 yesterday on the creatinine. PHYSICAL EXAMINATION: On examination today, blood pressure was 128/85, heart rate 86 per minute. She is afebrile. EXAMINATION OF THE HEART: S1, S2. EXAMINATION OF THE LUNGS: Decreased breath sounds at bases. ABDOMEN: Soft, distended, nontender. Examination of lower extremities shows edema 1+, upper and lower extremities with chronic skin changes. 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 LABS: Labs show sodium 142, potassium 4.5, chloride 105, CO2 is 22.3, BUN 104, serum creatinine 2.9. ASSESSMENT: 1. Acute kidney injury appears to be prerenal. No evidence of obstruction as patient has indwelling Pablo catheter. Start gentle IV hydration. Repeat labs in a.m. Continue to avoid any nephrotoxic agents. 2. Chronic kidney disease stage 3B secondary to nephrosclerosis. Baseline creatinine about 1.5. 3. Pseudomonas urinary tract infection. 4. Anemia with chronic disease. 5. Urine retention currently with indwelling Pablo catheter. 6. Metabolic bone disease. 7. Anemia of chronic disease, maintained on Aranesp. No active bleeding noted at this time. PLAN: Start half-normal saline at 50 mL an hour. Encourage increased oral intake. Repeat labs in a.m. MMODL / IJN: [id number] /
--- NOTE | 2020-03-01 16:18 | P.PN ---
Subjective Progress Note Date: 03/01/20 Principal diagnosis: Acute hypoxic respiratory failure and acute healthcare acquired pneumonia This is a 75-year-old female, familiar to my service, patient was recently at [facility], and she was initially admitted on 01/05/20. She was eventually discharged to a rehab facility on 02/19/20. Patient had many medical problems during her last admission included acute GI bleeding, acute on chronic diastolic congestive heart failure, acute covid 19 pneumonitis, H influenza pneumonia, and recurrent urinary tract infection. chronic kidney disease, hypertension, hypoxic respiratory failure secondary to pneumonia, obesity with BMI of 35.9, patient required PEG tube placement while she was in the hospital. She was seen by many consultants during her last hospital admission. Patient was eventually discharged to rehab facility on 02/19/20. However the patient was in the rehab facility for less than one day, apparently she developed worsening mental status, worsening shortness of breath. Hence the patient was transferred to [facility] in [facility], admitted for few days, and she continued to worsen, there was a concern about ongoing GI blood losses and hemoglobin. There is also a concern about her worsening pulmonary status, patient was transferred to [facility] and this consult was initiated. Apparently the day of her transferred to [facility], patient was intubated and required mechanical ventilation. Upon my evaluation the patient today in the ICU, patient is on assist control rate of 14, tidal volume is 480, FiO2 45% and PEEP of 5. ABG showed a pO2 of 130 pCO2 of 33 pH of 7.47. After reviewing the ABG, her ventilator settings were changed to tolerate volume is 450 assist-control rate 18 and kept her on 45% FiO2. Chest x-ray showed minimal bilateral infiltrates. Urinalysis is consistent with pyuria and bacteriuria. Hemoglobin is noted to be 7.3. WBC count is 19.9. And BUN is 78 creatinine 1.47. Patient was empirically started on cefepime for presumptive urinary tract infection and pneumonia patient had previous pseudomonal urinary tract infection. Not much history could be obtained from the patient most of the information obtained so far is from the chart Patient was reevaluated today on 02/25/2020, remains in the ICU, intubated and mechanically ventilated. She is on assist control rate of 18 tidal volume 455- 45% PEEP of 5. ABG showed a pO2 of 166 pCO2 of 32 pH of 7.49. On propofol at 30 mcg/kg/m, IV fluid 0.9 normal saline at 65 mL per hour. Remains on enteral feeding. She is also on cefepime empirically for presumptive pneumonia and urinary tract infection. We'll culture so far is showing gram-negative bacilli. Labs today were reviewed, WBC count is 20.2 hemoglobin is 7.2. Basic metabolic profile is unremarkable except for BUN of 79 creatinine of 1.49. Chest x-ray showed multifocal infiltrates bilaterally. Reevaluated today on 02/26/2020, patient remains in the ICU, she was weaned and extubated yesterday. She is now on room air with O2 saturation 96%, IV fluid is at KVO, patient is in sinus rhythm, she is hemodynamically stable, urine culture s are positive for gram-negative bacilli, final identification is pending. Patient did receive 1 unit of blood since she was admitted to the hospital. No active bleeding is noted. Patient was extubated yesterday, and she seems to have tolerated the extubation quite well. My plan is to transfer the patient today to a regular medical floor. Continues to have leukocytosis with WBC count of 19.7. Renal functioning remains borderline, creatinine is 1.61. On 02/27/2020 patient seen in follow-up on medical floor, patient was transferred out of intensive care unit yesterday, on today's exam she is quite encephalopathic, she opens eyes to vigorous stimulation however she is not verbally responding, her pulse ox was 95% on room air, however she is tachypneic, and breathing very shallowly, vital signs have been stable, she's been afebrile. Today's chest x-ray has been reviewed showing worsening bilateral multifocal edema and/or infiltrates. Today's labs showed an increasing white count up to 21.8, from previous 19.7 on yesterday's labs, hemoglobin is 9.3, sodium is 150, potassium is 3.7, chloride is 112, anion gap has increased To 14.1, B1 is 90 creatinine is 2.0, renal function has worsened, patient is being nourished via her PEG tube, and is currently receiving Nepro tube feedings at 35, however she is only receiving 30 mL of free water through the PEG tube every 4 hours. She has not been able to take anything by mouth in view of current dysphagia and aspiration. Patient will be placed on BiPAP support. She is already on antibiotics for pseudomonal urinary tract infection. On 03/01/2020 patient seen in follow-up on general medical floor, she remains on BiPAP, currently with pressures of 12 over 4, and FiO2 of 28%, her pulse ox is 100%, she remains encephalopathic, drowsy, but opens eyes to voice, follows simple commands, but not consistently, appears weak. But no acute distress was noted, low-grade fever this afternoon, with a temp of 99.7F. Urine culture was positive for pseudomonas aeruginosa, blood cultures have been negative. Today's labs have been reviewed, there has been further worsening of her renal function, with B1 up to 104, and creatinine of 2.9, electrolytes were within normal limits. Patient is being nourished via her PEG tube, she is receiving Nepro at 35 ML per hour, and for water flushes at 300 mg every 4 hours. She remains on meropenem, ID service is following, he is on bronchodilators, she is on vitamin C, vitamin D, zinc supplement, and she is receiving half-normal saline at a rate of 50 ML per hour. Objective - Vital Signs Vital signs: Vital Signs Temp 99.7 F H 03/01/20 13:01 Pulse 86 03/01/20 13:01 Resp 20 03/01/20 13:01 BP 128/85 03/01/20 13:01 Pulse Ox 100 03/01/20 13:01 Intake & Output 02/29/20 03/01/20 03/01/20 18:59 06:59 18:59 Intake Total 560 210 Output Total 490 100 Balance 70 110 Weight 106.2 kg 106.2 kg Intake: Oral 0 Tube Feeding 560 210 Output: Urine 490 100 Uretheral (Pablo) 100 Other: Voiding Method Indwelling Catheter Indwelling Catheter Indwelling Catheter # Voids 1 # Bowel Movements 1 1 - Exam GENERAL EXAM: Quite drowsy, 75-year-old white female, on room air, there is a generally weak, not consistently following verbal command, remains on BiPAP, currently with pressures of 12 and poor, and FiO2 of 28% HEAD: Normocephalic/atraumatic. EYES: Normal reaction of pupils, equal size. Conjunctiva pink, sclera white. NOSE: Clear with pink turbinates. THROAT: No erythema or exudates. NECK: No masses, no JVD, no thyroid enlargement, no adenopathy. CHEST: No chest wall deformity. Symmetrical expansion. LUNGS: Equal air entry with diminished breath sounds, CVS: Regular rate and rhythm, normal S1 and S2, no gallops, no murmurs, no rubs ABDOMEN: Soft, nontender. No hepatosplenomegaly, normal bowel sounds, no guarding or rigidity. PEG tube is in place, and patient is receiving Nepro at 35 ML per hour, with 300 mL of water flushes every 4 hours EXTREMITIES: No clubbing, no edema, no cyanosis, 2+ pulses and upper and lower extremities. MUSCULOSKELETAL: Muscle strength and tone normal. SPINE: No scoliosis or deformity SKIN: No rashes CENTRAL NERVOUS SYSTEM: Drowsy, opens eyes but does not verbally respond. No focal deficits, tone is normal in all 4 extremities. - Labs CBC & Chem 7: 02/28/20 11:32 03/01/20 06:07 Labs: Abnormal Lab Results - Last 24 Hours (Table) 02/29/20 02/29/20 02/29/20 Range/Units 17:18 21:41 23:51 Anion Gap (4.00-12.00) mmol/L BUN (9.0-27.0) mg/dL Creatinine (0.6-1.5) mg/dL Est GFR (CKD-EPI)AfAm (60.0-200.0) Est GFR (CKD-EPI)NonAf (60.0-200.0) BUN/Creatinine Ratio (12.00-20.00) Ratio POC Glucose (mg/dL) 125 H 163 H 161 H (75-99) mg/dL Calcium (8.7-10.3) mg/dL 03/01/20 03/01/20 Range/Units 06:07 11:28 Anion Gap 14.70 H (4.00-12.00) mmol/L BUN 104.0 H* (9.0-27.0) mg/dL Creatinine 2.9 H (0.6-1.5) mg/dL Est GFR (CKD-EPI)AfAm 17.4 L (60.0-200.0) Est GFR (CKD-EPI)NonAf 15.0 L (60.0-200.0) BUN/Creatinine Ratio 35.86 H (12.00-20.00) Ratio POC Glucose (mg/dL) 142 H (75-99) mg/dL Calcium 7.9 L (8.7-10.3) mg/dL Microbiology - Last 24 Hours (Table) 02/27/20 15:51 Blood Culture - Preliminary Blood No Growth after 48 hours Assessment and Plan Plan: Assessment: #1. Acute hypoxic respiratory failure secondary to debility of healthcare acquired pneumonia, recent required intubation and placement on mechanical ventilator, was successfully weaned and extubated on 02/25/2020, transfer out of intensive care unit on 02/26/2020. #2. Acute metabolic encephalopathy #3. Acute urinary tract infection with urine cultures positive for pseudomonas aeruginosa, currently on meropenem #4. Acute kidney injury #6. Hypernatremia related to free water deficit, improved #7. Type 2 diabetes mellitus #8. Recent history of hospitalization related to COVID 19 related pneumonia, and GI bleeding #9. History of dysphagia requiring PEG tube placement #10. Dyslipidemia #11. History of chronic diastolic congestive heart failure #12. History of chronic GI blood loss and positive Hemoccult stools, exact etiology is not clear, to be investigated by gastroenterology #13. Chronic anemia possibly related to chronic renal failure #14. Generalized edema secondary to hypoalbuminemia #15. 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 Plan: Continue BiPAP support, patient mentation continues to be altered, she was weak, drowsy, maintain aspiration precautions, patient remains on PEG tube feedings. In view of her mentation in general medical debility patient remains BiPAP dependent, may offer nasal cannula trials, there has been worsening of her renal function on today's labs. She is receiving IV hydration, and free water flushes in addition to nutritional support, continue antibiotics per ID service recommendations, obtain follow-up blood work in the morning, and follow-up chest x-ray. Had the bed up at least 30 at all times, continue nebulized bronchodilators, vitamins, GI and DVT prophylaxis, long-term prognosis is quite guarded and poor, her CODE STATUS may have to be revisited I performed a history & physical examination of the patient and discussed their management with my nurse practitioner, Anna Brown. I reviewed the nurse practitioner's note and agree with the documented findings and plan of care. Lung sounds are positive for diminished breath sounds. The findings and the impression was discussed with the patient. I attest to the documentation by the nurse practitioner. Time with Patient: Less than 30
[2020-03-01 17:18] LABS: Glucose,Whole Blood 126 mg/dL (75-99)
[2020-03-01] MEDS ORDERED: FUROSEMIDE 10 MG/ML 4 ML VIAL IV STA (18:37)
--- NOTE | 2020-03-01 19:42 | P.PN ---
Subjective Progress Note Date: 03/01/20 Principal diagnosis: Acute hypoxic respiratory failure and acute healthcare acquired pneumonia patient is seen and evaluated in room with RN at bedside, patient was transferred out of intensive care unit yesterday; patient is quite encephalopathic and only opens eyes to vigorous stimulation however she is not verbally responding, her pulse ox was 95% on room air, however she is tachypneic, and breathing very shallowly, vital signs have been stable, she's been afebrile. chest x-ray has been reviewed showing worsening bilateral multifocal edema and/or infiltrates. Today's labs showed an increasing white count up to 21.8, from previous 19.7 on yesterday's labs, hemoglobin is 9.3, sodium is 150, potassium is 3.7, chloride is 112, anion gap has increased To 14.1, BUN is 90 creatinine is 2.0, renal function has worsened, patient is being nourished via her PEG tube, and is currently receiving Nepro tube feedings at 35, nephrology is following and have increased to 50 mL of free water through the PEG tube every 4 hours. She has not been able to take anything by mouth in view of current dysphagia and aspiration. Patient will be placed on BiPAP support. She is already on antibiotics for pseudomonal urinary tract infection. Called patient's daughter Char Morales at [phone] and give her a detailed account of patient's declining condition; daughter wants to continue with aggressive treatment that possible re-intubation if needed 02/28/2020 Patient is seen and follow-up on the regular medical floor. She continues to have issues with waxing and waning mentation. She remains on BiPAP 12/428% FiO2. Blood gases were drawn and a pO2 of 111, CO2 38 and a pH of 7.43. No evidence of hypercapnia or hypoxemia and sodium is improved to 141. Creatinine 2.04. White count 15.2. Hemoglobin 8.0. She is status post 1 unit of packed red blood cells this admission. She remains on DuoNeb inhalations, Pulmicort inhalations, antibiotics in the form of meropenem. Urine culture was positive for pseudomonas aeruginosa. Patient's oxygenation continues to wax and wane; ABGs done revealed pCO2 of 38; ergonomics consultant service recommending CT of the head without contrast with neurology consult 02/29/2020 Patient is seen and evaluated in follow-up on the regular medical floor. She does open her eyes to verbal stimuli. She is following some simple commands today. Computed tomography scan of the brain revealed no acute intracranial abnormalities. Await further recommendations from neurology She is remaining on BiPAP 12 over 4 and 28% FiO2. O2 saturations up to 100%. Blood glucose 118. Continued on bronchodilators and meropenem. 03/01/2020 Patient is currently lying in the bed remains on BiPAP. Patient is drowsy and lethargic and encephalopathic. Was able to open her eyes with verbal stimuli. Blood pressure is stable. Laboratory data showed sodium 142 and percussion 4.5, BUN 104 and creatinine 2.9 Patient is being continued on antibiotics in the form of meropenem for pseudomonas urinary tract infection. Patient is being continued on breathing treatments and Pulmicort inhalation. Pulmonary, ID and nephrology is on board Current medications reviewed. Objective - Vital Signs Vital signs: Vital Signs Temp 98.0 F 03/01/20 19:24 Pulse 67 03/01/20 19:24 Resp 18 03/01/20 19:24 BP 110/58 03/01/20 19:24 Pulse Ox 99 03/01/20 19:24 Intake & Output 03/01/20 03/01/20 03/02/20 06:59 18:59 06:59 Intake Total 210 2135 Output Total 100 62 Balance 110 2073 Weight 106.2 kg 106.2 kg Intake: IV 510 Sodium Chloride 0.9% 1, 510 000 ml @ 20 mls/hr IV . Q24H [facility] Rx#:[id number] Tube Feeding 210 425 Other 1200 Output: Urine 100 60 Stool 2 Other: Voiding Method Indwelling Catheter Indwelling Catheter # Bowel Movements 1 - Exam GENERAL EXAM: Quite drowsy, 75-year-old white female, on BIPAP, breathing shallowly, and respirations are tachypneic, daily responding to tactile stimulation HEAD: Normocephalic/atraumatic. EYES: Normal reaction of pupils, equal size. Conjunctiva pink, sclera white. NOSE: Clear with pink turbinates. THROAT: No erythema or exudates. NECK: No masses, no JVD, no thyroid enlargement, no adenopathy. CHEST: No chest wall deformity. Symmetrical expansion. LUNGS: Equal air entry with diminished breath sounds, CVS: Regular rate and rhythm, normal S1 and S2, no gallops, no murmurs, no rubs ABDOMEN: Soft, nontender. No hepatosplenomegaly, normal bowel sounds, no guarding or rigidity. EXTREMITIES: No clubbing, no edema, no cyanosis, 2+ pulses and upper and lower extremities. - Labs CBC & Chem 7: 02/28/20 11:32 03/01/20 06:07 Labs: Abnormal Lab Results - Last 24 Hours (Table) 02/29/20 02/29/20 03/01/20 Range/Units 21:41 23:51 06:07 Anion Gap 14.70 H (4.00-12.00) mmol/L BUN 104.0 H* (9.0-27.0) mg/dL Creatinine 2.9 H (0.6-1.5) mg/dL Est GFR (CKD-EPI)AfAm 17.4 L (60.0-200.0) Est GFR (CKD-EPI)NonAf 15.0 L (60.0-200.0) BUN/Creatinine Ratio 35.86 H (12.00-20.00) Ratio POC Glucose (mg/dL) 163 H 161 H (75-99) mg/dL Calcium 7.9 L (8.7-10.3) mg/dL 03/01/20 03/01/20 Range/Units 11:28 17:16 Anion Gap (4.00-12.00) mmol/L BUN (9.0-27.0) mg/dL Creatinine (0.6-1.5) mg/dL Est GFR (CKD-EPI)AfAm (60.0-200.0) Est GFR (CKD-EPI)NonAf (60.0-200.0) BUN/Creatinine Ratio (12.00-20.00) Ratio POC Glucose (mg/dL) 142 H 126 H (75-99) mg/dL Calcium (8.7-10.3) mg/dL Microbiology - Last 24 Hours (Table) 02/27/20 15:51 Blood Culture - Preliminary Blood No Growth after 72 hours Assessment and Plan Assessment: -Acute hypoxic respiratory failure/ secondary to sepsis and encephalopathy. Patient was extubated on 02/25/2020. Currently on BiPAP. -Toxic encephalopathy: Secondary to sepsis most probably from urinary tract infection Pablo catheter will be changed patient has Pseudomonas in the urine patient is presently on cefepime although patient hasn't remitted susceptibility to cefepime as well as Zosyn. We will repeat urine analysis since the Pablo catheter was replaced patient may or may not need antibiotics we'll make the decision depending on urinalysis results. Infectious disease was consulted. -Pseudomonal UTI -Sepsis secondary to UTI -Acute on Chronic kidney disease stage IIIB: Nephrology is following the patient IV fluids as per nephrology. Patient blood pressure is low normal at this time. Patient is also receiving albumin,epogen as per nephrology -Type 2 diabetes mellitus. -Recent Covid 19 infection. -Hyperlipidemia -Dysphagia for which patient has a PEG tube -DVT prophylaxis: Subcutaneous heparin Time with Patient: Greater than 30
[2020-03-01] MEDS: ACETAMINOPHEN ORAL SUSP (PEDS) 3,840 MG/120 ML BOTTLE PO PRN (20:29)
--- NOTE | 2020-03-01 22:07 | PN ---
PROGRESS NOTE DATE OF SERVICE: 03/01/2020 REASON FOR FOLLOWUP: Pseudomonas UTI and aspiration pneumonia. INTERVAL HISTORY: The patient did have a low-grade fever of 99.7 today. The patient remains BiPAP- dependent. The patient is hemodynamically stable, not on any pressor support. No vomiting, diarrhea or any other changes reported by the nursing staff. PHYSICAL EXAMINATION: Her blood pressure is 110/58 with a pulse of 67, temperature 98. She is 99% on BiPAP. General description is an elderly female lying in bed in no distress. RESPIRATORY SYSTEM: Unlabored breathing with decreased breath sounds at the base. No wheeze. HEART: S1, S2. Regular rate and rhythm. ABDOMEN: Soft. No tenderness. LABS: BUN of 104, creatinine is 2.9. DIAGNOSTIC IMPRESSION AND PLAN: Patient with pseudomonas urinary tract infection and possible pneumonia, covered with meropenem because of her ANTIBIOTIC ALLERGIES; to continue while monitoring her clinical course closely. Continue supportive care. MMODL / IJN: [id number] /
[2020-03-01 23:31] LABS: Glucose,Whole Blood 158 mg/dL (75-99)
[2020-03-01] MEDS: INSULIN DETEMIR (LEVEMIR) 100 UNIT/ML SYR SQ SCH (23:40)
[2020-03-02 06:44] LABS: Glucose,Whole Blood 125 mg/dL (75-99)
[2020-03-02] MEDS: BUDESONIDE 0.5 MG/2 ML NEBU INHALATION SCH ×2 (06:59→19:19)
[2020-03-02] MEDS: IPRATROPIUM-ALBUTEROL 3 ML NEB INHALATION SCH ×4 (06:59→19:19)
[2020-03-02 07:33] LABS: HCT 28.2 % (34.0-46.0); HGB 8.9 gm/dL (11.4-16.0); Hypochromasia Slight; MCH 29.6 pg (25.0-35.0); MCHC 31.5 g/dL (31.0-37.0); MCV 94.1 fL (80.0-100.0); Mean Platelet Volume 8.7; Platelet Count 211 k/uL (150-450); WBC 15.1 k/uL (3.8-10.6)
[2020-03-02] MEDS: INSULIN ASPART (NovoLOG) 100 UNIT/ML VIAL SQ SCH ×6 (08:24→17:02)
[2020-03-02] MEDS: MULTIVITAMINS, THERA 1 EACH TAB PO SCH (08:37)
[2020-03-02] MEDS: CHOLECALCIFEROL 1,000 UNIT TAB PO SCH (08:37)
[2020-03-02] MEDS: ZINC SULFATE 220 MG CAP PO SCH (08:37)
[2020-03-02] MEDS: MEROPENEM 1 GM in SODIUM CHLORIDE 0.9% 100 ML IVPB SCH ×2 (08:37→21:23)
[2020-03-02] MEDS: HEPARIN SODIUM,PORCINE 5,000 UNIT/ML 1 ML VIAL SQ SCH ×2 (08:38→19:32)
[2020-03-02] MEDS: SODIUM CHLORIDE 0.45% 1,000 ML IV SCH (08:38)
[2020-03-02] MEDS: METOPROLOL TARTRATE 50 MG TAB PO SCH ×2 (08:38→17:01)
[2020-03-02] MEDS: ASCORBIC ACID 500 MG TAB PO SCH ×2 (08:38→19:32)
[2020-03-02 08:54] LABS: Band Neutrophils % 1 %; Monocytes # (M) 0.45 k/uL (0-1.0); Neutrophils % (M) 90 %; Nucleated Red Blood Cells 0 /100 WBC (0-0); Total Cells Counted 100
[2020-03-02 08:55] LABS: Anisocytosis (M) Present; Poikilocytosis (M) Present; Polychromasia Present
--- NOTE | 2020-03-02 09:51 | XR ---
EXAMINATION TYPE: XR chest 1V portable DATE OF EXAM: 03/02/2020 Comparison: 02/27/2020 Clinical History: 75-year-old female with hypoxic respiratory failure Findings: Low lung volumes. Heart upper limits of normal in size. Patchy peripheral interstitial opacities pers ist but are showing improvement. End-stage degenerative change at both shoulders. Right PICC tip with in the right atrium. Impression: Hypoventilatory changes. Patchy peripheral interstitial infiltrates persist but are showing improveme nt.
[2020-03-02 10:29] LABS: African American GFR (CKD) 15.4 (60.0-200.0); Anion Gap 10.4 mmol/L (4.00-12.00); BUN/Creat Ratio 33.75 Ratio (12.00-20.00); Carbon Dioxide 22.6 mmol/L (21.6-31.8); Non-African American GFR(CKD) 13.3 (60.0-200.0); Potassium 4.2 mmol/L (3.5-5.5)
[2020-03-02] MEDS ORDERED: ALBUMIN HUMAN 25% 50 ML in EMPTY BAG 1 BAG IVPB ONE (10:48)
[2020-03-02] MEDS ORDERED: FUROSEMIDE 10 MG/ML 4 ML VIAL IV STA (10:49)
[2020-03-02 11:37] LABS: Glucose,Whole Blood 104 mg/dL (75-99)
[2020-03-02] MEDS: THIAMINE 100 MG TAB PO SCH (11:46)
[2020-03-02] MEDS: FOLIC ACID 1 MG TAB PO SCH (11:47)
[2020-03-02] MEDS: DARBEPOETIN ALFA 40 MCG/0.4 ML SYRINGE SQ SCH (13:34)
--- NOTE | 2020-03-02 15:12 | P.PN ---
Subjective Progress Note Date: 03/02/20 Principal diagnosis: Acute hypoxic respiratory failure and acute healthcare acquired pneumonia This is a 75-year-old female, familiar to my service, patient was recently at [facility], and she was initially admitted on 01/05/20. She was eventually discharged to a rehab facility on 02/19/20. Patient had many medical problems during her last admission included acute GI bleeding, acute on chronic diastolic congestive heart failure, acute covid 19 pneumonitis, H influenza pneumonia, and recurrent urinary tract infection. chronic kidney disease, hypertension, hypoxic respiratory failure secondary to pneumonia, obesity with BMI of 35.9, patient required PEG tube placement while she was in the hospital. She was seen by many consultants during her last hospital admission. Patient was eventually discharged to rehab facility on 02/19/20. However the patient was in the rehab facility for less than one day, apparently she developed worsening mental status, worsening shortness of breath. Hence the patient was transferred to [facility] in [facility], admitted for few days, and she continued to worsen, there was a concern about ongoing GI blood losses and hemoglobin. There is also a concern about her worsening pulmonary status, patient was transferred to [facility] and this consult was initiated. Apparently the day of her transferred to [facility], patient was intubated and required mechanical ventilation. Upon my evaluation the patient today in the ICU, patient is on assist control rate of 14, tidal volume is 480, FiO2 45% and PEEP of 5. ABG showed a pO2 of 130 pCO2 of 33 pH of 7.47. After reviewing the ABG, her ventilator settings were changed to tolerate volume is 450 assist-control rate 18 and kept her on 45% FiO2. Chest x-ray showed minimal bilateral infiltrates. Urinalysis is consistent with pyuria and bacteriuria. Hemoglobin is noted to be 7.3. WBC count is 19.9. And BUN is 78 creatinine 1.47. Patient was empirically started on cefepime for presumptive urinary tract infection and pneumonia patient had previous pseudomonal urinary tract infection. Not much history could be obtained from the patient most of the information obtained so far is from the chart Patient was reevaluated today on 02/25/2020, remains in the ICU, intubated and mechanically ventilated. She is on assist control rate of 18 tidal volume 455- 45% PEEP of 5. ABG showed a pO2 of 166 pCO2 of 32 pH of 7.49. On propofol at 30 mcg/kg/m, IV fluid 0.9 normal saline at 65 mL per hour. Remains on enteral feeding. She is also on cefepime empirically for presumptive pneumonia and urinary tract infection. We'll culture so far is showing gram-negative bacilli. Labs today were reviewed, WBC count is 20.2 hemoglobin is 7.2. Basic metabolic profile is unremarkable except for BUN of 79 creatinine of 1.49. Chest x-ray showed multifocal infiltrates bilaterally. Reevaluated today on 02/26/2020, patient remains in the ICU, she was weaned and extubated yesterday. She is now on room air with O2 saturation 96%, IV fluid is at KVO, patient is in sinus rhythm, she is hemodynamically stable, urine culture s are positive for gram-negative bacilli, final identification is pending. Patient did receive 1 unit of blood since she was admitted to the hospital. No active bleeding is noted. Patient was extubated yesterday, and she seems to have tolerated the extubation quite well. My plan is to transfer the patient today to a regular medical floor. Continues to have leukocytosis with WBC count of 19.7. Renal functioning remains borderline, creatinine is 1.61. On 02/27/2020 patient seen in follow-up on medical floor, patient was transferred out of intensive care unit yesterday, on today's exam she is quite encephalopathic, she opens eyes to vigorous stimulation however she is not verbally responding, her pulse ox was 95% on room air, however she is tachypneic, and breathing very shallowly, vital signs have been stable, she's been afebrile. Today's chest x-ray has been reviewed showing worsening bilateral multifocal edema and/or infiltrates. Today's labs showed an increasing white count up to 21.8, from previous 19.7 on yesterday's labs, hemoglobin is 9.3, sodium is 150, potassium is 3.7, chloride is 112, anion gap has increased To 14.1, B1 is 90 creatinine is 2.0, renal function has worsened, patient is being nourished via her PEG tube, and is currently receiving Nepro tube feedings at 35, however she is only receiving 30 mL of free water through the PEG tube every 4 hours. She has not been able to take anything by mouth in view of current dysphagia and aspiration. Patient will be placed on BiPAP support. She is already on antibiotics for pseudomonal urinary tract infection. On 03/01/2020 patient seen in follow-up on general medical floor, she remains on BiPAP, currently with pressures of 12 over 4, and FiO2 of 28%, her pulse ox is 100%, she remains encephalopathic, drowsy, but opens eyes to voice, follows simple commands, but not consistently, appears weak. But no acute distress was noted, low-grade fever this afternoon, with a temp of 99.7F. Urine culture was positive for pseudomonas aeruginosa, blood cultures have been negative. Today's labs have been reviewed, there has been further worsening of her renal function, with B1 up to 104, and creatinine of 2.9, electrolytes were within normal limits. Patient is being nourished via her PEG tube, she is receiving Nepro at 35 ML per hour, and for water flushes at 300 mg every 4 hours. She remains on meropenem, ID service is following, he is on bronchodilators, she is on vitamin C, vitamin D, zinc supplement, and she is receiving half-normal saline at a rate of 50 ML per hour. On 03/02/2020 patient seen in follow-up on medical floor, mentation is improved today, more awake, responsive, she is currently off BiPAP, she is on 2 L of oxygen pulse ox of 90%, hemodynamically stable, she has been afebrile, hemodynamics she's been stable, chest x-ray today shows hypoventilatory changes, patchy peripheral interstitial infiltrates but are slowing improvement. Today's lab work is been reviewed, with blood cell count is 15.1, hemoglobin is 8.9, and nitrites within normal limits, renal profile has worsened, and BUN is 108, and creatinine is 3.2. He continues on meropenem, and she continues on half-normal seen at a rate of 50 ML per hour, she is receiving enteral feedings through her PEG tube. Objective - Vital Signs Vital signs: Vital Signs Temp 98.2 F 03/02/20 14:00 Pulse 92 03/02/20 14:00 Resp 22 03/02/20 14:00 BP 138/87 03/02/20 14:00 Pulse Ox 98 03/02/20 14:00 Intake & Output 03/01/20 03/02/20 03/02/20 18:59 06:59 18:59 Intake Total 2135 425 Output Total 62 100 102 Balance 2073 325 -102 Weight 106.2 kg 106.8 kg Intake: IV 510 Sodium Chloride 0.9% 1, 510 000 ml @ 20 mls/hr IV . Q24H [facility] Rx#:[id number] Oral 0 Tube Feeding 425 425 Other 1200 Output: Urine 60 100 100 Stool 2 2 Other: Voiding Method Indwelling Catheter Indwelling Catheter Indwelling Catheter # Voids 1 - Exam GENERAL EXAM: Awake and alert today's exam, 75-year-old white female, on 2 L of oxygen a pulse ox of 98% HEAD: Normocephalic/atraumatic. EYES: Normal reaction of pupils, equal size. Conjunctiva pink, sclera white. NOSE: Clear with pink turbinates. THROAT: No erythema or exudates. NECK: No masses, no JVD, no thyroid enlargement, no adenopathy. CHEST: No chest wall deformity. Symmetrical expansion. LUNGS: Equal air entry with diminished breath sounds, CVS: Regular rate and rhythm, normal S1 and S2, no gallops, no murmurs, no rubs ABDOMEN: Soft, nontender. No hepatosplenomegaly, normal bowel sounds, no guarding or rigidity. PEG tube is in place, and patient is receiving Nepro at 35 ML per hour, with 300 mL of water flushes every 4 hours EXTREMITIES: No clubbing, no edema, no cyanosis, 2+ pulses and upper and lower extremities. MUSCULOSKELETAL: Muscle strength and tone normal. SPINE: No scoliosis or deformity SKIN: No rashes CENTRAL NERVOUS SYSTEM: Drowsy, opens eyes but does not verbally respond. No focal deficits, tone is normal in all 4 extremities. - Labs CBC & Chem 7: 03/02/20 06:19 03/02/20 06:19 Labs: Abnormal Lab Results - Last 24 Hours (Table) 03/01/20 03/01/20 03/02/20 Range/Units 17:16 23:30 06:19 WBC 15.1 H (3.8-10.6) k/uL RBC 3.00 L (3.80-5.40) m/uL Hgb 8.9 L (11.4-16.0) gm/dL Hct 28.2 L (34.0-46.0) % RDW 16.0 H (11.5-15.5) % Neutrophils # (Manual) 13.70 H (1.3-7.7) k/uL Lymphocytes # (Manual) 0.30 L (1.0-4.8) k/uL BUN (9.0-27.0) mg/dL Creatinine (0.6-1.5) mg/dL Est GFR (CKD-EPI)AfAm (60.0-200.0) Est GFR (CKD-EPI)NonAf (60.0-200.0) BUN/Creatinine Ratio (12.00-20.00) Ratio POC Glucose (mg/dL) 126 H 158 H (75-99) mg/dL Calcium (8.7-10.3) mg/dL 03/02/20 03/02/20 03/02/20 Range/Units 06:19 06:41 11:29 WBC (3.8-10.6) k/uL RBC (3.80-5.40) m/uL Hgb (11.4-16.0) gm/dL Hct (34.0-46.0) % RDW (11.5-15.5) % Neutrophils # (Manual) (1.3-7.7) k/uL Lymphocytes # (Manual) (1.0-4.8) k/uL BUN 108.0 H* (9.0-27.0) mg/dL Creatinine 3.2 H (0.6-1.5) mg/dL Est GFR (CKD-EPI)AfAm 15.4 L (60.0-200.0) Est GFR (CKD-EPI)NonAf 13.3 L (60.0-200.0) BUN/Creatinine Ratio 33.75 H (12.00-20.00) Ratio POC Glucose (mg/dL) 125 H 104 H (75-99) mg/dL Calcium 8.0 L (8.7-10.3) mg/dL Microbiology - Last 24 Hours (Table) 02/27/20 15:51 Blood Culture - Preliminary Blood No Growth after 72 hours Assessment and Plan Plan: Assessment: #1. Acute hypoxic respiratory failure secondary to debility of healthcare acquired pneumonia, recent required intubation and placement on mechanical ventilator, was successfully weaned and extubated on 02/25/2020, transfer out of intensive care unit on 02/26/2020. #2. Acute metabolic encephalopathy #3. Acute urinary tract infection with urine cultures positive for pseudomonas aeruginosa, currently on meropenem #4. Acute kidney injury #6. Hypernatremia related to free water deficit, improved #7. Type 2 diabetes mellitus #8. Recent history of hospitalization related to COVID 19 related pneumonia, and GI bleeding #9. History of dysphagia requiring PEG tube placement #10. Dyslipidemia #11. History of chronic diastolic congestive heart failure #12. History of chronic GI blood loss and positive Hemoccult stools, exact etiology is not clear, to be investigated by gastroenterology #13. Chronic anemia possibly related to chronic renal failure #14. Generalized edema secondary to hypoalbuminemia #15. 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 Plan: Continue antibiotics per ID service recommendations, mentation has improved today, she is off BiPAP support, weaning FiO2, maintain aspiration precautions, nephrology is on, patient's renal profile has worsened, but a signs have been stable, afebrile. Hemodynamically stable. Continue supportive care, we'll continue to follow. I performed a history & physical examination of the patient and discussed their management with my nurse practitioner, Anna Brown. I reviewed the nurse practitioner's note and agree with the documented findings and plan of care. Lung sounds are positive for diminished breath sounds. The findings and the impression was discussed with the patient. I attest to the documentation by the nurse practitioner. Time with Patient: Less than 30
[2020-03-02 16:26] LABS: Glucose,Whole Blood 183 mg/dL (75-99)
--- NOTE | 2020-03-02 16:30 | PN ---
PROGRESS NOTE The patient is seen for followup for acute kidney injury. Her urine output had dropped yesterday and the Pablo catheter was changed. However, she still had low urine output, with documented output at about 590 mL for 24 hours. The patient did get a dose of IV Lasix yesterday. Her blood pressure remains around 130 mmHg, although it was low at 101 earlier this morning. Patient remains with significant edema. She was started on normal saline at 50 mL/hour yesterday. On examination today, blood pressure was 114/76, heart rate of 92 per minute. Patient is afebrile. EXAMINATION OF THE HEART: S1 and S2. EXAMINATION OF LUNGS: Decreased breath sounds at bases. ABDOMEN: Soft, obese, non-tender. Examination of lower extremities shows edema 2+ bilaterally, upper and lower extremities. RAG WASHER exam cannot be examined in detail. Labs show hemoglobin 8.9, WBCs 15.1. Sodium 136, potassium 4.2, BUN 108, serum creatinine 3.2 mg/dL, glucose 100. ASSESSMENT: 1. Acute kidney injury, acute tubular necrosis, currently oliguric. Will give a dose of albumin followed by Lasix. Chest x-ray shows bilateral peripheral infiltrates, which are slightly better. Respiratory status is currently stable. 2. Hypernatremia, now stable. Patient is maintained on half-normal saline, which I will continue for now. 3. Hypotension, now resolved. 4. Anemia. No active bleeding noted. 5. Urinary tract infection. 6. History of sepsis and recent acute hypoxic respiratory failure requiring intubation on her previous admission. 7. History of COVID-19 pneumonia during a recent hospitalization. PLAN: IV albumin and Lasix today. Repeat labs in a.m. Encourage increased oral intake. Continue the antibiotics for now. The patient has a Pablo catheter; therefore there is no underlying obstructive uropathy. MMODL / IJN: [id number] /
[2020-03-02] MEDS: ACETAMINOPHEN ORAL SUSP (PEDS) 3,840 MG/120 ML BOTTLE PO PRN (19:32)
[2020-03-02] MEDS: INSULIN DETEMIR (LEVEMIR) 100 UNIT/ML SYR SQ SCH (21:23)
[2020-03-02 21:25] LABS: Glucose,Whole Blood 137 mg/dL (75-99)
--- NOTE | 2020-03-02 22:24 | PN ---
PROGRESS NOTE DATE OF SERVICE: 03/11/2020 REASON FOR FOLLOWUP: Pseudomonas urinary tract infection and pneumonia. INTERVAL HISTORY: The patient is currently afebrile. The patient is currently off the BiPAP and is on 2 L nasal cannula. The patient remains lethargic and was not able to provide any history. No vomiting, diarrhea or any other changes reported by the nursing staff. PHYSICAL EXAMINATION: Blood pressure 138/87 with a pulse of 98, temperature 98.2. She is 98% on 2 L nasal cannula. General description is an elderly female lying in bed in no distress. RESPIRATORY SYSTEM: Unlabored breathing with decreased intensity of breath sounds. No wheeze. HEART: S1, S2. Regular rate and rhythm. ABDOMEN: Soft. No tenderness. LABS: Hemoglobin is 8.9, white count 15.1. BUN of 108, creatinine 3.2. DIAGNOSTIC IMPRESSION AND PLAN: Patient with a component of Pseudomonas aeruginosa urinary tract infection plus/minus component of pneumonia, for which the patient is currently covered with meropenem because of the sensitivity pattern; to continue and monitor clinical course closely. Prognosis remains guarded. MMODL / IJN: [id number] /
[2020-03-03] MEDS: INSULIN ASPART (NovoLOG) 100 UNIT/ML VIAL SQ SCH ×8 (02:20→18:20)
[2020-03-03 07:10] LABS: Glucose,Whole Blood 177 mg/dL (75-99)
[2020-03-03] MEDS: MEROPENEM 1 GM in SODIUM CHLORIDE 0.9% 100 ML IVPB SCH ×2 (08:55→21:01)
[2020-03-03] MEDS: ZINC SULFATE 220 MG CAP PO SCH (08:56)
[2020-03-03] MEDS: METOPROLOL TARTRATE 50 MG TAB PO SCH ×2 (08:56→18:02)
[2020-03-03] MEDS: SODIUM CHLORIDE 0.45% 1,000 ML IV SCH (08:56)
[2020-03-03] MEDS: MULTIVITAMINS, THERA 1 EACH TAB PO SCH (08:56)
[2020-03-03] MEDS: CHOLECALCIFEROL 1,000 UNIT TAB PO SCH (08:56)
[2020-03-03] MEDS: THIAMINE 100 MG TAB PO SCH (08:56)
[2020-03-03 08:58] LABS: Glucose,Whole Blood 165 mg/dL (75-99)
[2020-03-03] MEDS: HEPARIN SODIUM,PORCINE 5,000 UNIT/ML 1 ML VIAL SQ SCH ×2 (08:58→21:01)
[2020-03-03] MEDS: ASCORBIC ACID 500 MG TAB PO SCH ×2 (08:58→21:25)
[2020-03-03] MEDS: FOLIC ACID 1 MG TAB PO SCH (08:58)
[2020-03-03] MEDS: IPRATROPIUM-ALBUTEROL 3 ML NEB INHALATION SCH ×4 (09:02→19:37)
[2020-03-03] MEDS: BUDESONIDE 0.5 MG/2 ML NEBU INHALATION SCH ×2 (09:02→19:37)
[2020-03-03 11:43] LABS: Glucose,Whole Blood 132 mg/dL (75-99)
[2020-03-03] MEDS: FUROSEMIDE 100 MG in SODIUM CHLORIDE 0.9% 90 ML IV SCH ×2 (12:00→21:25)
[2020-03-03 12:56] LABS: African American GFR (CKD) 17 (>60 ml/min/1.73 sqM); Anion Gap 13 mmol/L; Calcium 8.3 mg/dL (8.4-10.2); Carbon Dioxide 18 mmol/L (22-30); Chloride 101 mmol/L (98-107); Glucose 114 mg/dL (74-99); Non-African American GFR(CKD) 14 (>60 ml/min/1.73 sqM); Potassium 4.3 mmol/L (3.5-5.1); Sodium 132 mmol/L (137-145)
[2020-03-03 13:03] LABS: Blood Urea Nitrogen 107 mg/dL (7-17)
--- NOTE | 2020-03-03 14:43 | PN ---
PROGRESS NOTE Patient is seen for followup for acute kidney injury. Her renal function continues to deteriorate. The patient has had very low urine output since yesterday. A 24-hour urine output documented at only about 160 mL. This morning patient's respiratory status worsened. She was hypoxic and tachypneic and is currently maintained on BiPAP. PHYSICAL EXAMINATION: Blood pressure was 117/80. Patient is afebrile. Heart rate 82 per minute. EXAMINATION OF THE HEART S1, S2. EXAMINATION OF LUNGS: Decreased breath sounds at bases. Bilateral basal crackles are heard. Abdomen is soft. Morbidly obese. Examination of lower extremities shows edema 2+, upper and lower extremities. [employer]ER exam cannot be done in detail; however, patient has been moving her extremities. LABS: Labs from today show sodium 132, potassium 4.3, chloride 101, CO2 is 18. BUN 107, serum creatinine 3.0. ASSESSMENT: 1. Acute kidney injury with worsening creatinine as of yesterday. However, the serum creatinine has improved today. Given the decrease in the creatinine, I am not sure if the urine output is accurate. I did discuss with the nurse and I have asked her to flush the Pablo catheter and check a bladder scan and check for any leakage around the catheter as we may not be getting accurate urine output. In the meantime, given her significant oliguria and volume overload, I have started her on Lasix drip. 2. Volume overload, status post IV Lasix last couple of days. I will add Lasix drip for a few hours and monitor urine output. 3. Metabolic acidosis associated with renal failure. 4. Pseudomonas urinary tract infection, maintained on antibiotics, meropenem. 5. Possible pneumonia, maintained on antibiotics. 6. History of COVID-19 pneumonia during a recent hospitalization. PLAN: Flush Pablo catheter and check urine output accurately. Monitor for any leakage around the catheter site as creatinine has improved since yesterday with significant oliguria documented with urine output only at 162 from the Pablo catheter for 24 hours. Add Lasix drip for a few hours. Check chest x-ray and repeat labs in a.m. MMODL / IJN: [id number] /
--- NOTE | 2020-03-03 16:07 | XR ---
EXAMINATION TYPE: XR chest 1V DATE OF EXAM: 03/03/2020 CLINICAL HISTORY: Difficulty breathing progress study. TECHNIQUE: Single AP portable upright view of the chest is obtained. COMPARISON: Chest x-ray from one day earlier and older studies. FINDINGS: Stable right-sided PICC line. Cardiac silhouette size stable and upper limits of normal wi th atherosclerotic thoracic aorta. Patient more rotated to right on current study. Increased reticula r opacities lateral left lung and right upper lung remain present. Advanced degenerative change bilat eral shoulders redemonstrated. IMPRESSION: Left greater than right multifocal acute infiltrates, no significant change from most rec ent x-ray.
--- NOTE | 2020-03-03 16:22 | P.PN ---
Subjective Progress Note Date: 03/03/20 Principal diagnosis: Acute hypoxic respiratory failure secondary to acute healthcare acquired pneumonia This is a 75-year-old female, familiar to my service, patient was recently at [facility], and she was initially admitted on 01/05/20. She was eventually discharged to a rehab facility on 02/19/20. Patient had many medical problems during her last admission included acute GI bleeding, acute on chronic diastolic congestive heart failure, acute covid 19 pneumonitis, H influenza pneumonia, and recurrent urinary tract infection. chronic kidney disease, hypertension, hypoxic respiratory failure secondary to pneumonia, obesity with BMI of 35.9, patient required PEG tube placement while she was in the hospital. She was seen by many consultants during her last hospital admission. Patient was eventually discharged to rehab facility on 02/19/20. However the patient was in the rehab facility for less than one day, apparently she developed worsening mental status, worsening shortness of breath. Hence the patient was transferred to [facility] in [facility], admitted for few days, and she continued to worsen, there was a concern about ongoing GI blood losses and hemoglobin. There is also a concern about her worsening pulmonary status, patient was transferred to [facility] and this consult was initiated. Apparently the day of her transferred to [facility], patient was intubated and required mechanical ventilation. Upon my evaluation the patient today in the ICU, patient is on assist control rate of 14, tidal volume is 480, FiO2 45% and PEEP of 5. ABG showed a pO2 of 130 pCO2 of 33 pH of 7.47. After reviewing the ABG, her ventilator settings were changed to tolerate volume is 450 assist-control rate 18 and kept her on 45% FiO2. Chest x-ray showed minimal bilateral infiltrates. Urinalysis is consistent with pyuria and bacteriuria. Hemoglobin is noted to be 7.3. WBC count is 19.9. And BUN is 78 creatinine 1.47. Patient was empirically started on cefepime for presumptive urinary tract infection and pneumonia patient had previous pseudomonal urinary tract infection. Not much history could be obtained from the patient most of the information obtained so far is from the chart Patient was reevaluated today on 02/25/2020, remains in the ICU, intubated and mechanically ventilated. She is on assist control rate of 18 tidal volume 455- 45% PEEP of 5. ABG showed a pO2 of 166 pCO2 of 32 pH of 7.49. On propofol at 30 mcg/kg/m, IV fluid 0.9 normal saline at 65 mL per hour. Remains on enteral feeding. She is also on cefepime empirically for presumptive pneumonia and urinary tract infection. We'll culture so far is showing gram-negative bacilli. Labs today were reviewed, WBC count is 20.2 hemoglobin is 7.2. Basic metabolic profile is unremarkable except for BUN of 79 creatinine of 1.49. Chest x-ray showed multifocal infiltrates bilaterally. Reevaluated today on 02/26/2020, patient remains in the ICU, she was weaned and extubated yesterday. She is now on room air with O2 saturation 96%, IV fluid is at KVO, patient is in sinus rhythm, she is hemodynamically stable, urine cultures are positive for gram-negative bacilli, final identification is pending. Patient did receive 1 unit of blood since she was admitted to the hospital. No active bleeding is noted. Patient was extubated yesterday, and she seems to have tolerated the extubation quite well. My plan is to transfer the patient today to a regular medical floor. Continues to have leukocytosis with WBC count of 19.7. Renal functioning remains borderline, creatinine is 1.61. On 02/27/2020 patient seen in follow-up on medical floor, patient was transferred out of intensive care unit yesterday, on today's exam she is quite encephalopathic, she opens eyes to vigorous stimulation however she is not verba lly responding, her pulse ox was 95% on room air, however she is tachypneic, and breathing very shallowly, vital signs have been stable, she's been afebrile. Today's chest x-ray has been reviewed showing worsening bilateral multifocal edema and/or infiltrates. Today's labs showed an increasing white count up to 21.8, from previous 19.7 on yesterday's labs, hemoglobin is 9.3, sodium is 150, potassium is 3.7, chloride is 112, anion gap has increased To 14.1, B1 is 90 creatinine is 2.0, renal function has worsened, patient is being nourished via her PEG tube, and is currently receiving Nepro tube feedings at 35, however she is only receiving 30 mL of free water through the PEG tube every 4 hours. She has not been able to take anything by mouth in view of current dysphagia and aspiration. Patient will be placed on BiPAP support. She is already on antibiotics for pseudomonal urinary tract infection. The patient is seen today 07/28/2020 follow-up on the regular medical floor. She continues to have issues with waxing and waning mentation. She remains on BiPAP 12/428% FiO2. Blood gases were drawn and a pO2 of 111, CO2 38 and a pH of 7.43. No evidence of hypercapnia or hypoxemia and sodium is improved to 141. Creatinine 2.04. White count 15.2. Hemoglobin 8.0. She is status post 1 unit of packed red blood cells this admission. She remains on DuoNeb inhalations, Pulmicort inhalations, antibiotics in the form of meropenem. Urine culture was positive for pseudomonas aeruginosa. The patient is seen today 02/29/2020 in follow-up on the regular medical floor. She does open her eyes to verbal stimuli. She is following some simple commands today. Computed tomography scan of the brain revealed no acute intracranial abnormalities. She is remaining on BiPAP 12 over 4 and 28% FiO2. O2 saturations up to 100%. Blood glucose 118. Continued on bronchodilators and meropenem. The patient is seen today 03/03/2020 follow-up on the regular medical floor. She is currently resting fairly comfortably in bed. She is on BiPAP, 12 over 4 and 28% FiO2. O2 saturations remaining in the 90s. Arousable. Status post 1 unit of packed red blood cells this admission. Current hemoglobin 8.9. Sodium 132. Potassium 4.3. Bicarb 18. BUN 107. Creatinine 3.00. Remains on b ronchodilators, antibiotics in the form of meropenem. She's been initiated on a Lasix drip at 10 mg per hour. Minimal urine output. Chest x-ray continues to show multifocal acute infiltrates left greater than right, no significant change compared to previous. Objective - Vital Signs Vital signs: Vital Signs Temp 98 F 03/03/20 14:00 Pulse 79 03/03/20 14:00 Resp 24 03/03/20 14:00 BP 99/51 03/03/20 14:00 Pulse Ox 100 03/03/20 14:00 Intake & Output 03/02/20 03/03/20 03/03/20 18:59 06:59 18:59 Intake Total 425 Output Total 102 75 Balance -102 350 Weight 110.5 kg Intake: Oral 0 Tube Feeding 425 Output: Urine 100 75 Stool 2 Other: Voiding Method Indwelling Catheter Indwelling Catheter # Voids 1 # Bowel Movements 1 1 - Exam GENERAL EXAM: Quite drowsy, 75-year-old female patient, on BiPAP 12 over 4 and 28% FiO2, currently comfortable in no apparent distress. HEAD: Normocephalic/atraumatic. EYES: Normal reaction of pupils, equal size. Conjunctiva pink, sclera white. NOSE: Clear with pink turbinates. THROAT: No erythema or exudates. NECK: No masses, no JVD, no thyroid enlargement, no adenopathy. CHEST: No chest wall deformity. Symmetrical expansion. LUNGS: Equal air entry with crackles in the bilateral posterior bases, diminished breath sounds, CVS: Regular rate and rhythm, normal S1 and S2, no gallops, no murmurs, no rubs ABDOMEN: Soft, nontender. No hepatosplenomegaly, normal bowel sounds, no guarding or rigidity. EXTREMITIES: No clubbing, no edema, no cyanosis, 2+ pulses and upper and lower extremities. MUSCULOSKELETAL: Muscle strength and tone normal. SPINE: No scoliosis or deformity SKIN: No rashes CENTRAL NERVOUS SYSTEM: Drowsy, opens eyes but does not verbally respond. No focal deficits, tone is normal in all 4 extremities. - Labs CBC & Chem 7: 03/02/20 06:19 03/03/20 12:22 Labs: Abnormal Lab Results - Last 24 Hours (Table) 03/02/20 03/02/20 03/03/20 Range/Units 16:22 21:22 07:08 Sodium (137-145) mmol/L Carbon Dioxide (22-30) mmol/L BUN (7-17) mg/dL Creatinine (0.52-1.04) mg/dL Glucose (74-99) mg/dL POC Glucose (mg/dL) 183 H 137 H 177 H (75-99) mg/dL Calcium (8.4-10.2) mg/dL 03/03/20 03/03/20 03/03/20 Range/Units 08:56 11:37 12:22 Sodium 132 L (137-145) mmol/L Carbon Dioxide 18 L (22-30) mmol/L BUN 107 H* (7-17) mg/dL Creatinine 3.00 H (0.52-1.04) mg/dL Glucose 114 H (74-99) mg/dL POC Glucose (mg/dL) 165 H 132 H (75-99) mg/dL Calcium 8.3 L (8.4-10.2) mg/dL Microbiology - Last 24 Hours (Table) 02/27/20 15:51 Blood Culture - Preliminary Blood No Growth after 96 hours Assessment and Plan Assessment: 1 Acute hypoxic respiratory failure secondary to debility of healthcare acquired pneumonia, recent required intubation and placement on mechanical ventilator, was successfully weaned and extubated on 02/25/2020, transfer out of intensive care unit on 02/26/2020. Currently on BiPAP 12 over 4 and 28%. 2 Altered mental status of unclear etiology, computed tomography scan of the brain revealed no acute intracranial abnormalities 3 Acute urinary tract infection with urine cultures positive for pseudomonas aeruginosa, currently on meropenem 4 Acute kidney injury, worsening, current creatinine 3.0 6 Hyperkalemia related to free water deficit 7 Type 2 diabetes mellitus 8 Recent history of hospitalization related to COVID 19 related pneumonia, and GI bleeding 9 History of dysphagia requiring PEG tube placement 10 Dyslipidemia 11 History of chronic diastolic congestive heart failure 12 History of chronic GI blood loss and positive Hemoccult stools, exact e tiology is not clear, to be investigated by gastroenterology 13 Chronic anemia possibly related to chronic renal failure 14 Generalized edema secondary to hypoalbuminemia 15 Severe sepsis, 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 Plan: The patient was seen and evaluated by Dr. Leon Chest x-ray and labs reviewed Her mentation continues to wax and wane Neurology consulted Worsening renal failure, nephrology is on the case Utilizing BiPAP at night and during the day while napping twice on 2 L nasal cannula Prognosis remains guarded and poor We will continue to follow and make further recommendations based on her clinical status I, the cosigning physician, performed a history & physical examination of the patient. Lungs sounds with faint crackles in the posterior bases. Maintaining good O2 saturations in the 90s on 28% FiO2 via BiPAP. I discussed the asse ssment and plan of care with my nurse practitioner, Candi Horton. I attest to the above note as dictated by her.
[2020-03-03 18:07] LABS: Glucose,Whole Blood 131 mg/dL (75-99)
--- NOTE | 2020-03-03 18:15 | US ---
EXAMINATION TYPE: US venous doppler duplex UE LT DATE OF EXAM: 03/03/2020 COMPARISON: NONE CLINICAL HISTORY: edema. Exam limited due to body habitus and patient couldn't move arm well. SIDE PERFORMED: Left Left Arm: Basilic Vein not visualized. Superficial clot seen in the cephalic vein. Otherwise no throm bosis of the visualized left subclavian, axillary, brachial, radial and ulnar veins. IMPRESSION: Thrombophlebitis of the cephalic vein. Otherwise no DVT of the left upper extremity.
[2020-03-03] MEDS: INSULIN DETEMIR (LEVEMIR) 100 UNIT/ML SYR SQ SCH (21:25)
--- NOTE | 2020-03-03 22:55 | PN ---
PROGRESS NOTE DATE OF SERVICE: 03/03/2020 REASON FOR FOLLOWUP: Pseudomonas UTI and concern for aspiration pneumonia. INTERVAL HISTORY: The patient is currently afebrile. The patient remains BiPAP-dependent off and on. The patient is hemodynamically stable. She remains lethargic and unable to provide any history. No diarrhea has been reported. PHYSICAL EXAMINATION: Blood pressure 99/51 with pulse of 69, temperature 98.2. She is 100% on non-rebreather. General description is an elderly female lying in bed in no distress. RESPIRATORY SYSTEM: Unlabored breathing with decreased breath sounds at the base. No wheeze. HEART: S1, S2. Regular rate and rhythm. ABDOMEN: Soft. No tenderness. LABS/IMAGING: Creatinine is up to 3. Chest x-ray with bilateral infiltrates concerning for pneumonia, left greater than right. DIAGNOSTIC IMPRESSION AND PLAN: Patient with Pseudomonas aeruginosa urinary tract infection, also concern about aspiration pneumonia. Patient is covered with meropenem. Overall prognosis remains guarded. Continue with supportive care. MMODL / IJN: [id number] /
[2020-03-04 00:01] LABS: Glucose,Whole Blood 129 mg/dL (75-99)
[2020-03-04] MEDS: INSULIN ASPART (NovoLOG) 100 UNIT/ML VIAL SQ SCH ×8 (00:11→17:14)
[2020-03-04] MEDS: SODIUM CHLORIDE 0.45% 1,000 ML IV SCH ×2 (07:27→21:52)
[2020-03-04 07:39] LABS: Glucose,Whole Blood 139 mg/dL (75-99)
[2020-03-04] MEDS: IPRATROPIUM-ALBUTEROL 3 ML NEB INHALATION SCH ×4 (08:10→20:06)
[2020-03-04] MEDS: BUDESONIDE 0.5 MG/2 ML NEBU INHALATION SCH ×2 (08:10→20:06)
[2020-03-04] MEDS: METOPROLOL TARTRATE 50 MG TAB PO SCH ×2 (08:17→17:14)
[2020-03-04] MEDS: ZINC SULFATE 220 MG CAP PO SCH (08:17)
[2020-03-04] MEDS: ASCORBIC ACID 500 MG TAB PO SCH ×2 (08:17→21:51)
[2020-03-04] MEDS: CHOLECALCIFEROL 1,000 UNIT TAB PO SCH (08:17)
[2020-03-04] MEDS: MEROPENEM 1 GM in SODIUM CHLORIDE 0.9% 100 ML IVPB SCH ×2 (08:17→21:51)
[2020-03-04] MEDS: MULTIVITAMINS, THERA 1 EACH TAB PO SCH (08:17)
[2020-03-04] MEDS: HEPARIN SODIUM,PORCINE 5,000 UNIT/ML 1 ML VIAL SQ SCH ×2 (08:17→21:51)
[2020-03-04] MEDS: FUROSEMIDE 100 MG in SODIUM CHLORIDE 0.9% 90 ML IV SCH (09:22)
[2020-03-04 11:11] LABS: HGB 7.6 gm/dL (11.4-16.0); Hypochromasia Moderate; MCH 30.1 pg (25.0-35.0); MCHC 31.8 g/dL (31.0-37.0); MCV 94.5 fL (80.0-100.0); Platelet Count 218 k/uL (150-450); RBC 2.54 m/uL (3.80-5.40); RDW 15.7 % (11.5-15.5); WBC 15.1 k/uL (3.8-10.6)
[2020-03-04 11:12] LABS: Glucose,Whole Blood 133 mg/dL (75-99)
[2020-03-04 11:18] LABS: African American GFR (CKD) 16 (>60 ml/min/1.73 sqM); Anion Gap 11 mmol/L; Calcium 8.2 mg/dL (8.4-10.2); Carbon Dioxide 18 mmol/L (22-30); Chloride 100 mmol/L (98-107); Glucose 109 mg/dL (74-99); Non-African American GFR(CKD) 14 (>60 ml/min/1.73 sqM); Potassium 4.4 mmol/L (3.5-5.1); Sodium 129 mmol/L (137-145)
[2020-03-04] MEDS: THIAMINE 100 MG TAB PO SCH (11:24)
[2020-03-04] MEDS: FOLIC ACID 1 MG TAB PO SCH (11:24)
[2020-03-04 11:29] LABS: Blood Urea Nitrogen 111 mg/dL (7-17)
--- NOTE | 2020-03-04 16:39 | PN ---
PROGRESS NOTE The patient is seen for followup for acute kidney injury. Patient has had low urine output for about 2 days now. She was started on Lasix drip yesterday. However, there has not been any increase in her urine output. She remains on the BiPAP. The patient has been tolerating her tube feedings. Serum creatinine is staying at about 3 mg/dL. No nausea or vomiting. The patient has not had any diarrhea. The Pablo catheter was changed, and flushed and there was no change in the urine output. A bladder scan was also performed and no significant amount of urine was noted. I did speak with the daughter today regarding her renal function and at this time family wants to continue with aggressive care including renal replacement therapy if indicated. PHYSICAL EXAMINATION: On examination today, patient is on BiPAP. She is comfortable. Blood pressure this morning was 105/64, heart rate 81 per minute. She is afebrile. EXAMINATION OF THE HEART: S1, S2. EXAMINATION OF THE LUNGS: Decreased breath sounds at bases. Abdomen is soft. Morbidly obese. Examination of lower extremities shows edema 3+ bilaterally upper and lower extremities. [employer] exam is difficult to perform. However, patient did nod her head and open her eyes to verbal stimuli. LABS: Labs show sodium 129, potassium 4.4, chloride 100, CO2 is 18, BUN 111, serum creatinine 3.1. ASSESSMENT: 1. Acute kidney injury, acute tubular necrosis, oliguric with no response to Lasix drip. The patient also has significant edema. I discussed with her daughter, Char, and at this time they would like to proceed with dialysis if indicated. Since respiratory status is stable, I will hold off on dialysis today. We will continue to assess her on a daily basis. I will discontinue the Lasix drip. 2. Pseudomonas urinary tract infection. 3. Possible pneumonia. 4. Anemia multifactorial including anemia of chronic disease, maintained on Aranesp. 5. Volume overload with significant edema, upper and lower extremities. No response to Lasix drip. Respiratory status is stable. 6. Metabolic acidosis associated with renal failure. 7. History of COVID-19 pneumonia. PLAN: Discontinue Lasix drip. Repeat labs in a.m. Will evaluate on a daily basis for need for renal replacement therapy. Chest x-ray from yesterday shows no significant change. Overall prognosis is guarded. MMODL / IJN: [id number] /
[2020-03-04 17:08] LABS: Glucose,Whole Blood 119 mg/dL (75-99)
--- NOTE | 2020-03-04 17:18 | P.PN ---
Subjective Progress Note Date: 03/04/20 Principal diagnosis: Acute hypoxic respiratory failure and acute healthcare acquired pneumonia This is a 75-year-old female, familiar to my service, patient was recently at [facility], and she was initially admitted on 01/05/20. She was eventually discharged to a rehab facility on 02/19/20. Patient had many medical problems during her last admission included acute GI bleeding, acute on chronic diastolic congestive heart failure, acute covid 19 pneumonitis, H influenza pneumonia, and recurrent urinary tract infection. chronic kidney disease, hypertension, hypoxic respiratory failure secondary to pneumonia, obesity with BMI of 35.9, patient required PEG tube placement while she was in the hospital. She was seen by many consultants during her last hospital admission. Patient was eventually discharged to rehab facility on 02/19/20. However the patient was in the rehab facility for less than one day, apparently she developed worsening mental status, worsening shortness of breath. Hence the patient was transferred to [facility] in [facility], admitted for few days, and she continued to worsen, there was a concern about ongoing GI blood losses and hemoglobin. There is also a concern about her worsening pulmonary status, patient was transferred to [facility] and this consult was initiated. Apparently the day of her transferred to [facility], patient was intubated and required mechanical ventilation. Upon my evaluation the patient today in the ICU, patient is on assist control rate of 14, tidal volume is 480, FiO2 45% and PEEP of 5. ABG showed a pO2 of 130 pCO2 of 33 pH of 7.47. After reviewing the ABG, her ventilator settings were changed to tolerate volume is 450 assist-control rate 18 and kept her on 45% FiO2. Chest x-ray showed minimal bilateral infiltrates. Urinalysis is consistent with pyuria and bacteriuria. Hemoglobin is noted to be 7.3. WBC count is 19.9. And BUN is 78 creatinine 1.47. Patient was empirically started on cefepime for presumptive urinary tract infection and pneumonia patient had previous pseudomonal urinary tract infection. Not much history could be obtained from the patient most of the information obtained so far is from the chart Patient was reevaluated today on 02/25/2020, remains in the ICU, intubated and mechanically ventilated. She is on assist control rate of 18 tidal volume 455- 45% PEEP of 5. ABG showed a pO2 of 166 pCO2 of 32 pH of 7.49. On propofol at 30 mcg/kg/m, IV fluid 0.9 normal saline at 65 mL per hour. Remains on enteral feeding. She is also on cefepime empirically for presumptive pneumonia and urinary tract infection. We'll culture so far is showing gram-negative bacilli. Labs today were reviewed, WBC count is 20.2 hemoglobin is 7.2. Basic metabolic profile is unremarkable except for BUN of 79 creatinine of 1.49. Chest x-ray showed multifocal infiltrates bilaterally. Reevaluated today on 02/26/2020, patient remains in the ICU, she was weaned and extubated yesterday. She is now on room air with O2 saturation 96%, IV fluid is at KVO, patient is in sinus rhythm, she is hemodynamically stable, urine culture s are positive for gram-negative bacilli, final identification is pending. Patient did receive 1 unit of blood since she was admitted to the hospital. No active bleeding is noted. Patient was extubated yesterday, and she seems to have tolerated the extubation quite well. My plan is to transfer the patient today to a regular medical floor. Continues to have leukocytosis with WBC count of 19.7. Renal functioning remains borderline, creatinine is 1.61. On 02/27/2020 patient seen in follow-up on medical floor, patient was transferred out of intensive care unit yesterday, on today's exam she is quite encephalopathic, she opens eyes to vigorous stimulation however she is not verbally responding, her pulse ox was 95% on room air, however she is tachypneic, and breathing very shallowly, vital signs have been stable, she's been afebrile. Today's chest x-ray has been reviewed showing worsening bilateral multifocal edema and/or infiltrates. Today's labs showed an increasing white count up to 21.8, from previous 19.7 on yesterday's labs, hemoglobin is 9.3, sodium is 150, potassium is 3.7, chloride is 112, anion gap has increased To 14.1, B1 is 90 creatinine is 2.0, renal function has worsened, patient is being nourished via her PEG tube, and is currently receiving Nepro tube feedings at 35, however she is only receiving 30 mL of free water through the PEG tube every 4 hours. She has not been able to take anything by mouth in view of current dysphagia and aspiration. Patient will be placed on BiPAP support. She is already on antibiotics for pseudomonal urinary tract infection. On 03/01/2020 patient seen in follow-up on general medical floor, she remains on BiPAP, currently with pressures of 12 over 4, and FiO2 of 28%, her pulse ox is 100%, she remains encephalopathic, drowsy, but opens eyes to voice, follows simple commands, but not consistently, appears weak. But no acute distress was noted, low-grade fever this afternoon, with a temp of 99.7F. Urine culture was positive for pseudomonas aeruginosa, blood cultures have been negative. Today's labs have been reviewed, there has been further worsening of her renal function, with B1 up to 104, and creatinine of 2.9, electrolytes were within normal limits. Patient is being nourished via her PEG tube, she is receiving Nepro at 35 ML per hour, and for water flushes at 300 mg every 4 hours. She remains on meropenem, ID service is following, he is on bronchodilators, she is on vitamin C, vitamin D, zinc supplement, and she is receiving half-normal saline at a rate of 50 ML per hour. On 03/02/2020 patient seen in follow-up on medical floor, mentation is improved today, more awake, responsive, she is currently off BiPAP, she is on 2 L of oxygen pulse ox of 90%, hemodynamically stable, she has been afebrile, hemodynamics she's been stable, chest x-ray today shows hypoventilatory changes, patchy peripheral interstitial infiltrates but are slowing improvement. Today's lab work is been reviewed, with blood cell count is 15.1, hemoglobin is 8.9, and nitrites within normal limits, renal profile has worsened, and BUN is 108, and creatinine is 3.2. He continues on meropenem, and she continues on half-normal seen at a rate of 50 ML per hour, she is receiving enteral feedings through her PEG tube. On 03/04/2020 patient seen in follow-up on medical floor, she is currently on BiPAP support, pressures of 12.4, and FiO2 of 20%, she is awake, seems to be breathing comfortably, she is answering simple questions, she denies any worsening dyspnea, no completes of chest pain. Lung sounds reveal diminished breath sounds bilaterally, no crackles or wheezing. Patient is tolerating tube feedings, however apparently she became very oliguric and she has only produced 20 mL of turbid looking urine in the last 12 hours. Nephrology is following, and considering hemodialysis initiation. Apparently Dr. Fine spoke to patient's daughter to discuss patient's condition and prognosis, and to discuss palliative care versus a full code and hemodialysis in the patient's daughter would like to continue with full CODE STATUS and will consider hemodialysis. For now she is breathing comfortably, however in view of worsening renal function she will likely require BiPAP support, and if respiratory status d eclines may need intubation. Last chest x-ray was done yesterday showing left greater than right multifocal acute infiltrates. She has significant amount of generalized swelling in upper and lower extremities. She is on tube feedings, with Nepro via her PEG tube at 35 with a goal of 35. Today's labs have been reviewed, showing white blood cell count of 15.1, hemoglobin is 7.6, sodium is 129, potassium is 4.4, B1 is 111, creatinine is 3.12 Objective - Vital Signs Vital signs: Vital Signs Temp 98.9 F 03/04/20 13:01 Pulse 75 03/04/20 15:15 Resp 23 03/04/20 13:01 BP 131/85 03/04/20 13:01 Pulse Ox 100 03/04/20 13:01 Intake & Output 03/03/20 03/04/20 03/04/20 18:59 06:59 18:59 Intake Total 1050 94.167 380 Output Total 57 25 0 Balance 993 69.167 380 Weight 110.5 kg Intake: Intake, IV Titration 630 94.167 100 Amount Furosemide 100 mg In 30 94.167 100 Sodium Chloride 0.9% 90 ml @ 10 MG/HR 10 mls/hr IV .Q10H ANDREA Rx#: [id number] Sodium Chloride 0.45% 1, 600 000 ml @ 50 mls/hr IV . Q20H ANDREA Rx#:[id number] Tube Feeding 420 280 Output: Urine 55 25 0 Uretheral (Pablo) 25 Stool 2 Other: Voiding Method Indwelling Catheter Indwelling Catheter # Bowel Movements 1 - Exam GENERAL EXAM: Awake and alert today's exam, 75-year-old white female, BiPAP support with pressures of 12 over 4 and FiO2 of 28% HEAD: Normocephalic/atraumatic. EYES: Normal reaction of pupils, equal size. Conjunctiva pink, sclera white. NOSE: Clear with pink turbinates. THROAT: No erythema or exudates. NECK: No masses, no JVD, no thyroid enlargement, no adenopathy. CHEST: No chest wall deformity. Symmetrical expansion. LUNGS: Equal air entry with diminished breath sounds, CVS: Regular rate and rhythm, normal S1 and S2, no gallops, no murmurs, no rubs ABDOMEN: Soft, nontender. No hepatosplenomegaly, normal bowel sounds, no guarding or rigidity. PEG tube is in place, and patient is receiving Nepro at 35 ML per hour, with 300 mL of water flushes every 4 hours EXTREMITIES: No clubbing, no edema, no cyanosis, 2+ pulses and upper and lower extremities. MUSCULOSKELETAL: Muscle strength and tone normal. SPINE: No scoliosis or deformity SKIN: No rashes CENTRAL NERVOUS SYSTEM: Drowsy, opens eyes but does not verbally respond. No focal deficits, tone is normal in all 4 extremities. - Labs CBC & Chem 7: 03/04/20 10:57 03/04/20 10:57 Labs: Abnormal Lab Results - Last 24 Hours (Table) 03/03/20 03/03/20 03/04/20 Range/Units 18:05 23:58 07:37 WBC (3.8-10.6) k/uL RBC (3.80-5.40) m/uL Hgb (11.4-16.0) gm/dL Hct (34.0-46.0) % RDW (11.5-15.5) % Sodium (137-145) mmol/L Carbon Dioxide (22-30) mmol/L BUN (7-17) mg/dL Creatinine (0.52-1.04) mg/dL Glucose (74-99) mg/dL POC Glucose (mg/dL) 131 H 129 H 139 H (75-99) mg/dL Calcium (8.4-10.2) mg/dL 03/04/20 03/04/20 03/04/20 Range/Units 10:57 10:57 11:11 WBC 15.1 H (3.8-10.6) k/uL RBC 2.54 L (3.80-5.40) m/uL Hgb 7.6 L (11.4-16.0) gm/dL Hct 24.0 L (34.0-46.0) % RDW 15.7 H (11.5-15.5) % Sodium 129 L (137-145) mmol/L Carbon Dioxide 18 L (22-30) mmol/L BUN 111 H* (7-17) mg/dL Creatinine 3.12 H (0.52-1.04) mg/dL Glucose 109 H (74-99) mg/dL POC Glucose (mg/dL) 133 H (75-99) mg/dL Calcium 8.2 L (8.4-10.2) mg/dL Microbiology - Last 24 Hours (Table) 02/27/20 15:51 Blood Culture - Preliminary Blood No Growth after 120 hours Assessment and Plan Plan: Assessment: #1. Acute hypoxic respiratory failure secondary to debility of healthcare acquired pneumonia, recent required intubation and placement on mechanical ventilator, was successfully weaned and extubated on 02/25/2020, transfer out of intensive care unit on 02/26/2020. #2. Acute metabolic encephalopathy #3. Acute urinary tract infection with urine cultures positive for pseudomonas aeruginosa, currently on meropenem #4. Acute kidney injury #6. Hypernatremia related to free water deficit, improved #7. Type 2 diabetes mellitus #8. Recent history of hospitalization related to COVID 19 related pneumonia, and GI bleeding #9. History of dysphagia requiring PEG tube placement #10. Dyslipidemia #11. History of chronic diastolic congestive heart failure #12. History of chronic GI blood loss and positive Hemoccult stools, exact etiology is not clear, to be investigated by gastroenterology #13. Chronic anemia possibly related to chronic renal failure #14. Generalized edema secondary to hypoalbuminemia #15. 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 Plan: Continue BiPAP support at 12 and 4 and FiO2 to keep O2 sat at 90% or above as needed and at bedtime. We will obtain follow-up chest x-ray tomorrow, may give the patient a break and place her on nasal cannula titrate FiO2 to keep O2 sat at greater than 90%. Patient has become very oliguric, she is very generally fluid overloaded. Nursing staff reports patient's daughter was updated on patient's condition, and patient remains a full code, daughter will consider hemodialysis if her renal function continues to decline. We will continue to follow the patient, there is a likelihood patient's respiratory status may decline, obtain follow-up chest x-ray in the morning. I performed a history & physical examination of the patient and discussed their management with my nurse practitioner, Anna Brown. I reviewed the nurse practitioner's note and agree with the documented findings and plan of care. Lung sounds are positive for diminished breath sounds. The findings and the impression was discussed with the patient. I attest to the documentation by the nurse practitioner. Time with Patient: Less than 30
--- NOTE | 2020-03-04 18:59 | P.CNNES ---
History of Present Illness Consult date: 03/04/20 Requesting physician: Candi Horton Reason for Consult: Altered mental status History of Present Illness: Patient is a 75-year-old female well known to me from previous admission to the hospital when she had suffered from Covid infection. Patient was discharged on 02/19/2020. Patient apparently was readmitted on 02/24/2020 with GI bleed. Patient underwent extensive workup and there was no evidence for active GI bleed at this time. Patient continues to be encephalopathic, which prompted this neurology consultation. Patient's blood test shows WBC 15.1, hemoglobin 7.6, platelets 218. Sodium is 129 potassium 4.4, BUN 111, creatinine 3.12. Patient does have chronic renal insufficiency, but is worse. Her hemoglobin A1c was 5.4 on 02/07/2020. Hepatic panel normal, total cholesterol 101, LDL 47, HDL 28, triglycerides 129. Patient has been diagnosed with pseudomonas aeruginosa UTI and possible aspiration pneu monia. Patient's left upper extremity ultrasound showed thrombophlebitis of the cephalic vein. Chest x-ray from 03/03/2020 showed left greater than right multifocal acute infiltrates, no significant change from most recent x-ray. Patient continues to be encephalopathic. She does not offer any complaints. She is very quiet. She appears tachypneic, significantly swollen. Review of Systems ROS unobtainable: due to mental status Past Medical History Past Medical History: Hyperlipidemia, Hypertension, Renal Disease Additional Past Medical History / Comment(s): Covid, Anemia ; Chronic kidney disease; ARDS History of Any Multi-Drug Resistant Organisms: None Reported Past Surgical History: Orthopedic Surgery Additional Past Surgical History / Comment(s): Peg tube Past Psychological History: No Psychological Hx Reported Smoking Status: Never smoker Past Alcohol Use History: None Reported Past Drug Use History: None Reported - Past Family History Father Family Medical History: Pulmonary Embolus Additional Family Medical History / Comment(s): Mother History Unknown: Yes Additional Family Medical History / Comment(s): " from old age" age 93 Daughter(s) Family Medical History: Hypertension Medications and Allergies Home Medications Medication Instructions Recorded Confirmed Type Albuterol Sulfate [Proventil Hfa] 1 puff INHALATION RT-Q6H PRN 01/05/20 02/24/20 History Ascorbic Acid [Vitamin C] 500 mg PO BID tab 01/29/20 02/24/20 Rx Cholecalciferol [Vitamin D3 (25 5,000 unit PO DAILY tab 01/29/20 02/24/20 Rx Mcg = 1000 Iu)] Insulin Detemir (Levemir) [Levemir] 10 unit SQ HS syr 01/29/20 02/24/20 Rx Zinc Sulfate [Orazinc] 220 mg PO DAILY cap 01/29/20 02/24/20 Rx Acetaminophen Tab [Tylenol] 650 mg PO Q6HR PRN 02/06/20 02/24/20 History Glucerna 1.2 Oren 240 ml PO QID@03,09,15,21 02/06/20 02/24/20 History Heparin Sodium,Porcine [Heparin 5,000 unit SQ BID@0800,2000 02/06/20 02/24/20 History Sodium] Loperamide [Imodium] 2 - 4 mg PO Q3H PRN 02/06/20 02/24/20 History Metoprolol Tartrate [Lopressor] 50 mg PO BID@0800,1600 02/06/20 02/24/20 History Folic Acid 1 mg PO DAILY@1200 tab 02/19/20 02/24/20 Rx Furosemide [Lasix] 40 mg PO BID #60 tablet 02/19/20 02/24/20 Rx Thiamine [Vitamin B-1] 100 mg PO DAILY@1200 tab 02/19/20 02/24/20 Rx INSULIN ASPART (NovoLOG) [NovoLOG 4 unit SQ ACHS 02/24/20 02/24/20 History (formulary)] Lansoprazole [Prevacid] 30 mg PO DAILY 02/24/20 02/24/20 History Multivitamins, Thera [Multivitamin 1 tab PO DAILY 02/24/20 02/24/20 History (formulary)] Ondansetron Odt [Zofran Odt] 4 mg PO Q4H PRN 02/24/20 02/24/20 History Allergies Allergy/AdvReac Type Severity Reaction Status Date / Time No Known Allergies Allergy Verified 02/24/20 08:25 Physical Examination - Vital Signs Vital Signs: Vital Signs Temp Pulse Pulse Resp BP BP Pulse Ox 03/04/20 13:01 98.9 F 81 23 131/85 100 03/04/20 12:07 82 03/04/20 11:57 82 03/04/20 08:23 80 03/04/20 08:11 80 03/04/20 08:00 28 H 03/04/20 07:31 98.4 F 83 28 H 105/64 03/04/20 02:00 94 24 166/95 03/03/20 23:50 73 30 H 112/77 99 03/03/20 21:00 98.5 F 62 20 133/95 99 03/03/20 19:47 76 03/03/20 19:40 75 03/03/20 17:20 84 116/73 Intake and Output 03/03/20 03/04/20 03/04/20 22:59 06:59 14:59 Intake Total 1144.167 380 Output Total 55 25 0 Balance 1089.167 -25 380 Intake: Intake, IV Titration 724.167 100 Amount Furosemide 100 mg In 124.167 100 Sodium Chloride 0.9% 90 ml @ 10 MG/HR 10 mls/hr IV .Q10H ANDREA Rx#: [id number] Sodium Chloride 0.45% 1, 600 000 ml @ 50 mls/hr IV . Q20H ANDREA Rx#:[id number] Tube Feeding 420 280 Output: Urine 55 25 0 Uretheral (Pablo) 25 Other: Voiding Method Indwelling Catheter Weight 110.5 kg On examination patient is an elderly female, who is laying in the bed, appears somewhat tachypneic, slightly short of breath. Patient was appears obviously encephalopathic. Patient able to tell me her name, states is 46 years old, and that she is in [place]. Speech was clear with no aphasia. Patient would not cooperate, appears very encephalopathic. Her pupils are round and reactive to light, visual kaiser could not be tested although she does blink to visual threat. Face is symmetric, patient did not protrude her tongue, could not tell about facial sensations. Hearing not able to be checked. Patient did not cooperate for shoulder shrug testing. On muscle strength testing, her director surface transportation is about 3, biceps 3+. She is able to pull her arms over to the head to try to adjust her nasal cannula. Patient would not cooperate to check for deltoid however. Patient did wiggle her feet well, but did not cooperate for exact muscle strength testing. Cannot lift her leg. Patient is severely swollen all over. Reflexes are trace to absent. Plantars are flat. Tone and bulk of muscles equal. Patient not ambulatory at this time. Patient has significant swelling all over. Patient has some ecchymosis. P atient abdomen is soft and nontender. S1 and S2 audible. No obvious bruit. Results - Laboratory Findings CBC and BMP: 03/04/20 10:57 03/04/20 10:57 Abnormal Lab Findings: Abnormal Labs 02/24/20 02/24/20 02/24/20 01:11 01:50 02:43 WBC RBC Hgb Hct MCV MCHC RDW Neutrophils # (Manual) Lymphocytes # (Manual) Metamyelocytes # (Man) ABG pH 7.47 H ABG pCO2 33 L ABG pO2 130 H ABG HCO3 ABG Total CO2 25 H ABG O2 Saturation 100.0 H Sodium Chloride 110 H Carbon Dioxide Anion Gap BUN 78 H Creatinine 1.47 H Est GFR (CKD-EPI)AfAm Est GFR (CKD-EPI)NonAf BUN/Creatinine Ratio Glucose 221 H POC Glucose (mg/dL) 262 H Calcium 7.5 L Phosphorus Troponin I Total Protein 3.7 L Albumin 1.9 L Globulin Urine Appearance Urine Protein Urine Ketones Urine Blood Urine Nitrite Ur Leukocyte Esterase Urine RBC Urine WBC Urine WBC Clumps Urine Bacteria Urine Mucus Urine Yeast (Budding) Crossmatch 02/24/20 02/24/20 02/24/20 02:43 02:43 05:22 WBC 19.9 H RBC 2.44 L Hgb 7.3 L Hct 24.7 L MCV 101.4 H D MCHC 29.6 L RDW 16.4 H Neutrophils # (Manual) 19.90 H Lymphocytes # (Manual) Metamyelocytes # (Man) ABG pH ABG pCO2 ABG pO2 ABG HCO3 ABG Total CO2 ABG O2 Saturation Sodium Chloride Carbon Dioxide Anion Gap BUN Creatinine Est GFR (CKD-EPI)AfAm Est GFR (CKD-EPI)NonAf BUN/Creatinine Ratio Glucose POC Glucose (mg/dL) Calcium Phosphorus Troponin I 0.060 H* 0.067 H* Total Protein Albumin Globulin Urine Appearance Urine Protein Urine Ketones Urine Blood Urine Nitrite Ur Leukocyte Esterase Urine RBC Urine WBC Urine WBC Clumps Urine Bacteria Urine Mucus Urine Yeast (Budding) Crossmatch 02/24/20 02/24/20 02/24/20 05:22 06:06 06:24 WBC RBC Hgb Hct MCV MCHC RDW Neutrophils # (Manual) Lymphocytes # (Manual) Metamyelocytes # (Man) ABG pH ABG pCO2 ABG pO2 ABG HCO3 ABG Total CO2 ABG O2 Saturation Sodium Chloride Carbon Dioxide Anion Gap BUN Creatinine Est GFR (CKD-EPI)AfAm Est GFR (CKD-EPI)NonAf BUN/Creatinine Ratio Glucose POC Glucose (mg/dL) 251 H Calcium Phosphorus 4.8 H Troponin I Total Protein Albumin Globulin Urine Appearance Cloudy H Urine Protein 1+ H Urine Ketones 1+ H Urine Blood Moderate H Urine Nitrite Positive H Ur Leukocyte Esterase Large H Urine RBC 59 H Urine WBC >182 H Urine WBC Clumps Many H Urine Bacteria Rare H Urine Mucus Rare H Urine Yeast (Budding) Moderate H Crossmatch 02/24/20 02/24/20 02/24/20 11:00 15:05 17:02 WBC RBC Hgb Hct MCV MCHC RDW Neutrophils # (Manual) Lymphocytes # (Manual) Metamyelocytes # (Man) ABG pH ABG pCO2 ABG pO2 ABG HCO3 ABG Total CO2 ABG O2 Saturation Sodium Chloride Carbon Dioxide Anion Gap BUN Creatinine Est GFR (CKD-EPI)AfAm Est GFR (CKD-EPI)NonAf BUN/Creatinine Ratio Glucose POC Glucose (mg/dL) 168 H 128 H Calcium Phosphorus Troponin I Total Protein Albumin Globulin Urine Appearance Urine Protein Urine Ketones Urine Blood Urine Nitrite Ur Leukocyte Esterase Urine RBC Urine WBC Urine WBC Clumps Urine Bacteria Urine Mucus Urine Yeast (Budding) Crossmatch See Detail 02/24/20 02/24/20 02/25/20 22:12 23:17 03:20 WBC 20.2 H RBC 2.46 L Hgb 7.2 L Hct 24.0 L MCV MCHC 30.1 L RDW 16.3 H Neutrophils # (Manual) 19.30 H Lymphocytes # (Manual) 0.40 L Metamyelocytes # (Man) ABG pH ABG pCO2 ABG pO2 ABG HCO3 ABG Total CO2 ABG O2 Saturation Sodium Chloride Carbon Dioxide Anion Gap BUN Creatinine Est GFR (CKD-EPI)AfAm Est GFR (CKD-EPI)NonAf BUN/Creatinine Ratio Glucose POC Glucose (mg/dL) 145 H 146 H Calcium Phosphorus Troponin I Total Protein Albumin Globulin Urine Appearance Urine Protein Urine Ketones Urine Blood Urine Nitrite Ur Leukocyte Esterase Urine RBC Urine WBC Urine WBC Clumps Urine Bacteria Urine Mucus Urine Yeast (Budding) Crossmatch 01/08/0902/25/20 02/25/20 03:20 05:05 12:39 WBC RBC Hgb Hct MCV MCHC RDW Neutrophils # (Manual) Lymphocytes # (Manual) Metamyelocytes # (Man) ABG pH 7.49 H ABG pCO2 32 L ABG pO2 166 H ABG HCO3 ABG Total CO2 25 H ABG O2 Saturation 100.0 H Sodium Chloride 113 H Carbon Dioxide Anion Gap BUN 79 H Creatinine 1.49 H Est GFR (CKD-EPI)AfAm Est GFR (CKD-EPI)NonAf BUN/Creatinine Ratio Glucose POC Glucose (mg/dL) 107 H Calcium 8.0 L Phosphorus 4.7 H Troponin I Total Protein Albumin Globulin Urine Appearance Urine Protein Urine Ketones Urine Blood Urine Nitrite Ur Leukocyte Esterase Urine RBC Urine WBC Urine WBC Clumps Urine Bacteria Urine Mucus Urine Yeast (Budding) Crossmatch 02/25/20 02/25/20 02/26/20 17:22 23:29 03:43 WBC 19.7 H RBC 3.04 L Hgb 8.9 L D Hct 28.8 L MCV MCHC RDW 16.5 H Neutrophils # (Manual) 17.70 H Lymphocytes # (Manual) 0.99 L Metamyelocytes # (Man) 0.39 H ABG pH ABG pCO2 ABG pO2 ABG HCO3 ABG Total CO2 ABG O2 Saturation Sodium Chloride Carbon Dioxide Anion Gap BUN Creatinine Est GFR (CKD-EPI)AfAm Est GFR (CKD-EPI)NonAf BUN/Creatinine Ratio Glucose POC Glucose (mg/dL) 110 H 122 H Calcium Phosphorus Troponin I Total Protein Albumin Globulin Urine Appearance Urine Protein Urine Ketones Urine Blood Urine Nitrite Ur Leukocyte Esterase Urine RBC Urine WBC Urine WBC Clumps Urine Bacteria Urine Mucus Urine Yeast (Budding) Crossmatch 02/26/20 02/26/20 02/26/20 03:43 06:32 11:21 WBC RBC Hgb Hct MCV MCHC RDW Neutrophils # (Manual) Lymphocytes # (Manual) Metamyelocytes # (Man) ABG pH ABG pCO2 ABG pO2 ABG HCO3 ABG Total CO2 ABG O2 Saturation Sodium Chloride 111 H Carbon Dioxide Anion Gap BUN 81 H Creatinine 1.61 H Est GFR (CKD-EPI)AfAm Est GFR (CKD-EPI)NonAf BUN/Creatinine Ratio Glucose 102 H POC Glucose (mg/dL) 116 H 144 H Calcium 7.9 L Phosphorus Troponin I Total Protein Albumin Globulin Urine Appearance Urine Protein Urine Ketones Urine Blood Urine Nitrite Ur Leukocyte Esterase Urine RBC Urine WBC Urine WBC Clumps Urine Bacteria Urine Mucus Urine Yeast (Budding) Crossmatch 02/26/20 02/26/20 02/26/20 12:00 17:03 22:40 WBC RBC Hgb Hct MCV MCHC RDW Neutrophils # (Manual) Lymphocytes # (Manual) Metamyelocytes # (Man) ABG pH ABG pCO2 ABG pO2 ABG HCO3 ABG Total CO2 ABG O2 Saturation Sodium Chloride Carbon Dioxide Anion Gap BUN Creatinine Est GFR (CKD-EPI)AfAm Est GFR (CKD-EPI)NonAf BUN/Creatinine Ratio Glucose POC Glucose (mg/dL) 132 H 204 H Calcium Phosphorus Troponin I Total Protein Albumin Globulin Urine Appearance Urine Protein 1+ H Urine Ketones Urine Blood Urine Nitrite Ur Leukocyte Esterase Moderate H Urine RBC Urine WBC 26 H Urine WBC Clumps Urine Bacteria Rare H Urine Mucus Rare H Urine Yeast (Budding) Crossmatch 02/27/20 02/27/20 02/27/20 05:20 06:25 06:25 WBC 21.8 H RBC 3.04 L Hgb 9.3 L Hct 28.6 L MCV MCHC RDW 16.1 H Neutrophils # (Manual) Lymphocytes # (Manual) Metamyelocytes # (Man) ABG pH ABG pCO2 ABG pO2 ABG HCO3 ABG Total CO2 ABG O2 Saturation Sodium 150 H Chloride 112 H Carbon Dioxide Anion Gap 14.10 H BUN 90.0 H Creatinine 2.0 H Est GFR (CKD-EPI)AfAm 27.2 L Est GFR (CKD-EPI)NonAf 23.5 L BUN/Creatinine Ratio 45.00 H Glucose 151 H POC Glucose (mg/dL) 198 H Calcium 7.8 L Phosphorus Troponin I Total Protein 3.9 L Albumin 2.80 L Globulin 1.1 L Urine Appearance Urine Protein Urine Ketones Urine Blood Urine Nitrite Ur Leukocyte Esterase Urine RBC Urine WBC Urine WBC Clumps Urine Bacteria Urine Mucus Urine Yeast (Budding) Crossmatch 02/27/20 02/27/20 02/27/20 11:40 18:08 21:02 WBC RBC Hgb Hct MCV MCHC RDW Neutrophils # (Manual) Lymphocytes # (Manual) Metamyelocytes # (Man) ABG pH ABG pCO2 ABG pO2 ABG HCO3 ABG Total CO2 ABG O2 Saturation Sodium Chloride Carbon Dioxide Anion Gap BUN Creatinine Est GFR (CKD-EPI)AfAm Est GFR (CKD-EPI)NonAf BUN/Creatinine Ratio Glucose POC Glucose (mg/dL) 160 H 175 H 151 H Calcium Phosphorus Troponin I Total Protein Albumin Globulin Urine Appearance Urine Protein Urine Ketones Urine Blood Urine Nitrite Ur Leukocyte Esterase Urine RBC Urine WBC Urine WBC Clumps Urine Bacteria Urine Mucus Urine Yeast (Budding) Crossmatch 02/28/20 02/28/20 02/28/20 00:37 06:01 10:58 WBC RBC Hgb Hct MCV MCHC RDW Neutrophils # (Manual) Lymphocytes # (Manual) Metamyelocytes # (Man) ABG pH ABG pCO2 ABG pO2 ABG HCO3 ABG Total CO2 ABG O2 Saturation Sodium Chloride Carbon Dioxide Anion Gap BUN Creatinine Est GFR (CKD-EPI)AfAm Est GFR (CKD-EPI)NonAf BUN/Creatinine Ratio Glucose POC Glucose (mg/dL) 155 H 123 H 104 H Calcium Phosphorus Troponin I Total Protein Albumin Globulin Urine Appearance Urine Protein Urine Ketones Urine Blood Urine Nitrite Ur Leukocyte Esterase Urine RBC Urine WBC Urine WBC Clumps Urine Bacteria Urine Mucus Urine Yeast (Budding) Crossmatch 02/28/20 02/28/20 02/28/20 11:32 11:32 11:46 WBC 15.2 H RBC 2.65 L Hgb 8.0 L Hct 24.9 L MCV MCHC RDW 16.0 H Neutrophils # (Manual) 13.60 H Lymphocytes # (Manual) 0.30 L Metamyelocytes # (Man) ABG pH ABG pCO2 ABG pO2 111 H ABG HCO3 26 H ABG Total CO2 27 H ABG O2 Saturation 99.5 H Sodium Chloride 109 H Carbon Dioxide Anion Gap BUN 91 H Creatinine 2.04 H Est GFR (CKD-EPI)AfAm Est GFR (CKD-EPI)NonAf BUN/Creatinine Ratio Glucose 100 H POC Glucose (mg/dL) Calcium 8.2 L Phosphorus Troponin I Total Protein 3.9 L Albumin 2.0 L Globulin Urine Appearance Urine Protein Urine Ketones Urine Blood Urine Nitrite Ur Leukocyte Esterase Urine RBC Urine WBC Urine WBC Clumps Urine Bacteria Urine Mucus Urine Yeast (Budding) Crossmatch 02/28/20 02/28/20 02/29/20 17:20 20:52 00:17 WBC RBC Hgb Hct MCV MCHC RDW Neutrophils # (Manual) Lymphocytes # (Manual) Metamyelocytes # (Man) ABG pH ABG pCO2 ABG pO2 ABG HCO3 ABG Total CO2 ABG O2 Saturation Sodium Chloride Carbon Dioxide Anion Gap BUN Creatinine Est GFR (CKD-EPI)AfAm Est GFR (CKD-EPI)NonAf BUN/Creatinine Ratio Glucose POC Glucose (mg/dL) 135 H 137 H 153 H Calcium Phosphorus Troponin I Total Protein Albumin Globulin Urine Appearance Urine Protein Urine Ketones Urine Blood Urine Nitrite Ur Leukocyte Esterase Urine RBC Urine WBC Urine WBC Clumps Urine Bacteria Urine Mucus Urine Yeast (Budding) Crossmatch 02/29/20 02/29/20 02/29/20 11:23 17:18 21:41 WBC RBC Hgb Hct MCV MCHC RDW Neutrophils # (Manual) Lymphocytes # (Manual) Metamyelocytes # (Man) ABG pH ABG pCO2 ABG pO2 ABG HCO3 ABG Total CO2 ABG O2 Saturation Sodium Chloride Carbon Dioxide Anion Gap BUN Creatinine Est GFR (CKD-EPI)AfAm Est GFR (CKD-EPI)NonAf BUN/Creatinine Ratio Glucose POC Glucose (mg/dL) 118 H 125 H 163 H Calcium Phosphorus Troponin I Total Protein Albumin Globulin Urine Appearance Urine Protein Urine Ketones Urine Blood Urine Nitrite Ur Leukocyte Esterase Urine RBC Urine WBC Urine WBC Clumps Urine Bacteria Urine Mucus Urine Yeast (Budding) Crossmatch 02/29/20 03/01/20 03/01/20 23:51 06:07 11:28 WBC RBC Hgb Hct MCV MCHC RDW Neutrophils # (Manual) Lymphocytes # (Manual) Metamyelocytes # (Man) ABG pH ABG pCO2 ABG pO2 ABG HCO3 ABG Total CO2 ABG O2 Saturation Sodium Chloride Carbon Dioxide Anion Gap 14.70 H BUN 104.0 H* Creatinine 2.9 H Est GFR (CKD-EPI)AfAm 17.4 L Est GFR (CKD-EPI)NonAf 15.0 L BUN/Creatinine Ratio 35.86 H Glucose POC Glucose (mg/dL) 161 H 142 H Calcium 7.9 L Phosphorus Troponin I Total Protein Albumin Globulin Urine Appearance Urine Protein Urine Ketones Urine Blood Urine Nitrite Ur Leukocyte Esterase Urine RBC Urine WBC Urine WBC Clumps Urine Bacteria Urine Mucus Urine Yeast (Budding) Crossmatch 03/01/20 03/01/20 03/02/20 17:16 23:30 06:19 WBC 15.1 H RBC 3.00 L Hgb 8.9 L Hct 28.2 L MCV MCHC RDW 16.0 H Neutrophils # (Manual) 13.70 H Lymphocytes # (Manual) 0.30 L Metamyelocytes # (Man) ABG pH ABG pCO2 ABG pO2 ABG HCO3 ABG Total CO2 ABG O2 Saturation Sodium Chloride Carbon Dioxide Anion Gap BUN Creatinine Est GFR (CKD-EPI)AfAm Est GFR (CKD-EPI)NonAf BUN/Creatinine Ratio Glucose POC Glucose (mg/dL) 126 H 158 H Calcium Phosphorus Troponin I Total Protein Albumin Globulin Urine Appearance Urine Protein Urine Ketones Urine Blood Urine Nitrite Ur Leukocyte Esterase Urine RBC Urine WBC Urine WBC Clumps Urine Bacteria Urine Mucus Urine Yeast (Budding) Crossmatch 03/02/20 03/02/20 03/02/20 06:19 06:41 11:29 WBC RBC Hgb Hct MCV MCHC RDW Neutrophils # (Manual) Lymphocytes # (Manual) Metamyelocytes # (Man) ABG pH ABG pCO2 ABG pO2 ABG HCO3 ABG Total CO2 ABG O2 Saturation Sodium Chloride Carbon Dioxide Anion Gap BUN 108.0 H* Creatinine 3.2 H Est GFR (CKD-EPI)AfAm 15.4 L Est GFR (CKD-EPI)NonAf 13.3 L BUN/Creatinine Ratio 33.75 H Glucose POC Glucose (mg/dL) 125 H 104 H Calcium 8.0 L Phosphorus Troponin I Total Protein Albumin Globulin Urine Appearance Urine Protein Urine Ketones Urine Blood Urine Nitrite Ur Leukocyte Esterase Urine RBC Urine WBC Urine WBC Clumps Urine Bacteria Urine Mucus Urine Yeast (Budding) Crossmatch 03/02/20 03/02/20 03/03/20 16:22 21:22 07:08 WBC RBC Hgb Hct MCV MCHC RDW Neutrophils # (Manual) Lymphocytes # (Manual) Metamyelocytes # (Man) ABG pH ABG pCO2 ABG pO2 ABG HCO3 ABG Total CO2 ABG O2 Saturation Sodium Chloride Carbon Dioxide Anion Gap BUN Creatinine Est GFR (CKD-EPI)AfAm Est GFR (CKD-EPI)NonAf BUN/Creatinine Ratio Glucose POC Glucose (mg/dL) 183 H 137 H 177 H Calcium Phosphorus Troponin I Total Protein Albumin Globulin Urine Appearance Urine Protein Urine Ketones Urine Blood Urine Nitrite Ur Leukocyte Esterase Urine RBC Urine WBC Urine WBC Clumps Urine Bacteria Urine Mucus Urine Yeast (Budding) Crossmatch 03/03/20 03/03/20 03/03/20 08:56 11:37 12:22 WBC RBC Hgb Hct MCV MCHC RDW Neutrophils # (Manual) Lymphocytes # (Manual) Metamyelocytes # (Man) ABG pH ABG pCO2 ABG pO2 ABG HCO3 ABG Total CO2 ABG O2 Saturation Sodium 132 L Chloride Carbon Dioxide 18 L Anion Gap BUN 107 H* Creatinine 3.00 H Est GFR (CKD-EPI)AfAm Est GFR (CKD-EPI)NonAf BUN/Creatinine Ratio Glucose 114 H POC Glucose (mg/dL) 165 H 132 H Calcium 8.3 L Phosphorus Troponin I Total Protein Albumin Globulin Urine Appearance Urine Protein Urine Ketones Urine Blood Urine Nitrite Ur Leukocyte Esterase Urine RBC Urine WBC Urine WBC Clumps Urine Bacteria Urine Mucus Urine Yeast (Budding) Crossmatch 03/03/20 03/03/20 03/04/20 18:05 23:58 07:37 WBC RBC Hgb Hct MCV MCHC RDW Neutrophils # (Manual) Lymphocytes # (Manual) Metamyelocytes # (Man) ABG pH ABG pCO2 ABG pO2 ABG HCO3 ABG Total CO2 ABG O2 Saturation Sodium Chloride Carbon Dioxide Anion Gap BUN Creatinine Est GFR (CKD-EPI)AfAm Est GFR (CKD-EPI)NonAf BUN/Creatinine Ratio Glucose POC Glucose (mg/dL) 131 H 129 H 139 H Calcium Phosphorus Troponin I Total Protein Albumin Globulin Urine Appearance Urine Protein Urine Ketones Urine Blood Urine Nitrite Ur Leukocyte Esterase Urine RBC Urine WBC Urine WBC Clumps Urine Bacteria Urine Mucus Urine Yeast (Budding) Crossmatch 03/04/20 03/04/20 03/04/20 10:57 10:57 11:11 WBC 15.1 H RBC 2.54 L Hgb 7.6 L Hct 24.0 L MCV MCHC RDW 15.7 H Neutrophils # (Manual) Lymphocytes # (Manual) Metamyelocytes # (Man) ABG pH ABG pCO2 ABG pO2 ABG HCO3 ABG Total CO2 ABG O2 Saturation Sodium 129 L Chloride Carbon Dioxide 18 L Anion Gap BUN 111 H* Creatinine 3.12 H Est GFR (CKD-EPI)AfAm Est GFR (CKD-EPI)NonAf BUN/Creatinine Ratio Glucose 109 H POC Glucose (mg/dL) 133 H Calcium 8.2 L Phosphorus Troponin I Total Protein Albumin Globulin Urine Appearance Urine Protein Urine Ketones Urine Blood Urine Nitrite Ur Leukocyte Esterase Urine RBC Urine WBC Urine WBC Clumps Urine Bacteria Urine Mucus Urine Yeast (Budding) Crossmatch Assessment and Plan Assessment: * Altered mental status, likely due to toxic metabolic encephalopathy. * Acute on chronic renal failure * Anemia * Pseudomonas UTI, * Aspiration pneumonia recent history of COVID-19 pneumonia * Severe generalized deconditioning. * Generalized edema * Diabetes * Dysphagia status post PEG placement. Plan: * Patient's altered mental status is likely due to toxic metabolic encephalopathy. * Patient has multiple EEGs in the past, which all showed generalized slowing consistent with encephalopathy. * No other neurological workup indicated. * Medical management as per IM, pulmonary and nephrology.
[2020-03-04] MEDS: INSULIN DETEMIR (LEVEMIR) 100 UNIT/ML SYR SQ SCH (21:51)
[2020-03-04 21:56] LABS: Glucose,Whole Blood 111 mg/dL (75-99)
--- NOTE | 2020-03-04 22:59 | PN ---
PROGRESS NOTE DATE OF SERVICE: 03/04/2020 REASON FOR FOLLOWUP: Pneumonia and UTI. INTERVAL HISTORY: The patient is currently afebrile. The patient is currently on the BiPAP. Remains lethargic and is unable to provide any history. No vomiting, diarrhea or any other changes reported by the nursing staff. PHYSICAL EXAMINATION: Blood pressure 171/85, pulse of 81, temperature 98.9. General description is an elderly female lying in bed in no distress. RESPIRATORY SYSTEM: Unlabored breathing with decreased breath sounds at the base. No wheeze. HEART: S1, S2. Regular rate and rhythm. ABDOMEN: Soft. No tenderness. LABS: Hemoglobin 7.6, white count 15.1, creatinine 3.12. DIAGNOSTIC IMPRESSION AND PLAN: Patient with a pseudomonas urinary tract infection plus/minus component of pneumonia. Patient is covered with meropenem. Did have worsening of her kidney function. Continue with meropenem at this point while waiting for condition to stabilize and continue supportive care. MMODL / IJN: [id number] /
[2020-03-05 01:07] LABS: Glucose,Whole Blood 107 mg/dL (75-99)
[2020-03-05] MEDS: INSULIN ASPART (NovoLOG) 100 UNIT/ML VIAL SQ SCH ×8 (01:07→17:18)
[2020-03-05 04:46] LABS: Glucose,Whole Blood 107 mg/dL (75-99)
--- NOTE | 2020-03-05 07:11 | XR ---
EXAMINATION TYPE: XR chest 1V portable DATE OF EXAM: 03/05/2020 CLINICAL HISTORY: Difficulty breathing and weakness progress study. TECHNIQUE: Single AP portable upright view of the chest is obtained. COMPARISON: Chest x-ray from 2 days earlier and older studies. FINDINGS: Stable right-sided PICC line. Cardiac silhouette size stable and mildly enlarged with atherosclerotic thoracic aorta causing right- sided tracheal deviation. Persistent low lung volumes. Increased reticular opacities bilaterally grea ter on the left lung redemonstrated. Small to tiny left greater than right pleural effusions better s een on current study. Advanced degenerative change bilateral shoulders redemonstrated. IMPRESSION: Left greater than right multifocal acute infiltrates on background mild cardiomegaly and low lung volumes redemonstrated. Perhaps new mild interstitial edema and small to tiny left greater t vivar right pleural effusions suggesting fluid component on background chronic changes. Correlate clini hair.
[2020-03-05 07:39] LABS: Glucose,Whole Blood 111 mg/dL (75-99)
[2020-03-05] MEDS: IPRATROPIUM-ALBUTEROL 3 ML NEB INHALATION SCH ×4 (07:50→19:14)
[2020-03-05] MEDS: ZINC SULFATE 220 MG CAP PO SCH (08:33)
[2020-03-05] MEDS: MULTIVITAMINS, THERA 1 EACH TAB PO SCH (08:34)
[2020-03-05] MEDS: METOPROLOL TARTRATE 50 MG TAB PO SCH ×2 (08:35→16:47)
[2020-03-05] MEDS: HEPARIN SODIUM,PORCINE 5,000 UNIT/ML 1 ML VIAL SQ SCH ×2 (08:35→20:07)
[2020-03-05] MEDS: CHOLECALCIFEROL 1,000 UNIT TAB PO SCH (08:35)
[2020-03-05] MEDS: ASCORBIC ACID 500 MG TAB PO SCH ×2 (08:35→20:08)
[2020-03-05] MEDS: MEROPENEM 1 GM in SODIUM CHLORIDE 0.9% 100 ML IVPB SCH ×2 (09:22→20:08)
[2020-03-05 11:46] LABS: Glucose,Whole Blood 134 mg/dL (75-99)
[2020-03-05 12:05] LABS: African American GFR (CKD) 16 (>60 ml/min/1.73 sqM); Anion Gap 10 mmol/L; Calcium 7.4 mg/dL (8.4-10.2); Carbon Dioxide 17 mmol/L (22-30); Chloride 102 mmol/L (98-107); Glucose 101 mg/dL (74-99); Non-African American GFR(CKD) 14 (>60 ml/min/1.73 sqM); Potassium 3.8 mmol/L (3.5-5.1); Sodium 129 mmol/L (137-145)
[2020-03-05 12:07] LABS: Blood Urea Nitrogen 103 mg/dL (7-17)
[2020-03-05] MEDS: THIAMINE 100 MG TAB PO SCH (12:08)
[2020-03-05] MEDS: FOLIC ACID 1 MG TAB PO SCH (12:08)
[2020-03-05] MEDS ORDERED: FUROSEMIDE 10 MG/ML 10 ML VIAL IV STA (12:42)
--- NOTE | 2020-03-05 13:02 | US ---
EXAMINATION TYPE: US kidneys/renal and bladder DATE OF EXAM: 03/05/2020 COMPARISON: US 02/07 CLINICAL HISTORY: renal failure. Renal failure EXAM MEASUREMENTS: Right Kidney: 10.2 x 4.5 x 4.1 cm Left Kidney: 8.1 X 4.9 X 4.8 cm Right Kidney: No evidence of hydro, multicystic with largest cyst lateral/lower pole as seen on previ ous= 2.8 x 2.5 x 2.2 cm Left Kidney: Limited views due to morbid obesity, kidney small in size, no evidence of hydro, multicy stic with largest cyst measured= 1.7 cm Bladder: Unable to visualize due to large pt body habitus Incidental finding, enlarged spleen Incidental finding mild ascites present Increased cortical echogenicity bilaterally with few small simple appearing thin-walled cysts in both kidneys. (With product of chronic medical renal disease. Small amount of intraperitoneal ascites gre atest in the right flank noted. Splenomegaly is appreciated. Bladder collapsed. IMPRESSION: Evidence of chronic medical renal disease. No hydronephrosis noted bilaterally. Underlyin g cirrhosis and portal venous hypertension suspected, correlate clinically.
--- NOTE | 2020-03-05 15:09 | P.PN ---
Subjective Progress Note Date: 03/05/20 Principal diagnosis: Acute hypoxic respiratory failure secondary to acute healthcare acquired pneumonia This is a 75-year-old female, familiar to my service, patient was recently at [facility], and she was initially admitted on 01/05/20. She was eventually discharged to a rehab facility on 02/19/20. Patient had many medical problems during her last admission included acute GI bleeding, acute on chronic diastolic congestive heart failure, acute covid 19 pneumonitis, H influenza pneumonia, and recurrent urinary tract infection. chronic kidney disease, hypertension, hypoxic respiratory failure secondary to pneumonia, obesity with BMI of 35.9, patient required PEG tube placement while she was in the hospital. She was seen by many consultants during her last hospital admission. Patient was eventually discharged to rehab facility on 02/19/20. However the patient was in the rehab facility for less than one day, apparently she developed worsening mental status, worsening shortness of breath. Hence the patient was transferred to [facility] in [facility], admitted for few days, and she continued to worsen, there was a concern about ongoing GI blood losses and hemoglobin. There is also a concern about her worsening pulmonary status, patient was transferred to [facility] and this consult was initiated. Apparently the day of her transferred to [facility], patient was intubated and required mechanical ventilation. Upon my evaluation the patient today in the ICU, patient is on assist control rate of 14, tidal volume is 480, FiO2 45% and PEEP of 5. ABG showed a pO2 of 130 pCO2 of 33 pH of 7.47. After reviewing the ABG, her ventilator settings were changed to tolerate volume is 450 assist-control rate 18 and kept her on 45% FiO2. Chest x-ray showed minimal bilateral infiltrates. Urinalysis is consistent with pyuria and bacteriuria. Hemoglobin is noted to be 7.3. WBC count is 19.9. And BUN is 78 creatinine 1.47. Patient was empirically started on cefepime for presumptive urinary tract infection and pneumonia patient had previous pseudomonal urinary tract infection. Not much history could be obtained from the patient most of the information obtained so far is from the chart Patient was reevaluated today on 02/25/2020, remains in the ICU, intubated and mechanically ventilated. She is on assist control rate of 18 tidal volume 455- 45% PEEP of 5. ABG showed a pO2 of 166 pCO2 of 32 pH of 7.49. On propofol at 30 mcg/kg/m, IV fluid 0.9 normal saline at 65 mL per hour. Remains on enteral feeding. She is also on cefepime empirically for presumptive pneumonia and urinary tract infection. We'll culture so far is showing gram-negative bacilli. Labs today were reviewed, WBC count is 20.2 hemoglobin is 7.2. Basic metabolic profile is unremarkable except for BUN of 79 creatinine of 1.49. Chest x-ray showed multifocal infiltrates bilaterally. Reevaluated today on 02/26/2020, patient remains in the ICU, she was weaned and extubated yesterday. She is now on room air with O2 saturation 96%, IV fluid is at KVO, patient is in sinus rhythm, she is hemodynamically stable, urine cultures are positive for gram-negative bacilli, final identification is pending. Patient did receive 1 unit of blood since she was admitted to the hospital. No active bleeding is noted. Patient was extubated yesterday, and she seems to have tolerated the extubation quite well. My plan is to transfer the patient today to a regular medical floor. Continues to have leukocytosis with WBC count of 19.7. Renal functioning remains borderline, creatinine is 1.61. On 02/27/2020 patient seen in follow-up on medical floor, patient was transferred out of intensive care unit yesterday, on today's exam she is quite encephalopathic, she opens eyes to vigorous stimulation however she is not verba lly responding, her pulse ox was 95% on room air, however she is tachypneic, and breathing very shallowly, vital signs have been stable, she's been afebrile. Today's chest x-ray has been reviewed showing worsening bilateral multifocal edema and/or infiltrates. Today's labs showed an increasing white count up to 21.8, from previous 19.7 on yesterday's labs, hemoglobin is 9.3, sodium is 150, potassium is 3.7, chloride is 112, anion gap has increased To 14.1, B1 is 90 creatinine is 2.0, renal function has worsened, patient is being nourished via her PEG tube, and is currently receiving Nepro tube feedings at 35, however she is only receiving 30 mL of free water through the PEG tube every 4 hours. She has not been able to take anything by mouth in view of current dysphagia and aspiration. Patient will be placed on BiPAP support. She is already on antibiotics for pseudomonal urinary tract infection. The patient is seen today 07/28/2020 follow-up on the regular medical floor. She continues to have issues with waxing and waning mentation. She remains on BiPAP 12/428% FiO2. Blood gases were drawn and a pO2 of 111, CO2 38 and a pH of 7.43. No evidence of hypercapnia or hypoxemia and sodium is improved to 141. Creatinine 2.04. White count 15.2. Hemoglobin 8.0. She is status post 1 unit of packed red blood cells this admission. She remains on DuoNeb inhalations, Pulmicort inhalations, antibiotics in the form of meropenem. Urine culture was positive for pseudomonas aeruginosa. The patient is seen today 02/29/2020 in follow-up on the regular medical floor. She does open her eyes to verbal stimuli. She is following some simple commands today. Computed tomography scan of the brain revealed no acute intracranial abnormalities. She is remaining on BiPAP 12 over 4 and 28% FiO2. O2 saturations up to 100%. Blood glucose 118. Continued on bronchodilators and meropenem. The patient is seen today 03/03/2020 follow-up on the regular medical floor. She is currently resting fairly comfortably in bed. She is on BiPAP, 12 over 4 and 28% FiO2. O2 saturations remaining in the 90s. Arousable. Status post 1 unit of packed red blood cells this admission. Current hemoglobin 8.9. Sodium 132. Potassium 4.3. Bicarb 18. BUN 107. Creatinine 3.00. Remains on b ronchodilators, antibiotics in the form of meropenem. She's been initiated on a Lasix drip at 10 mg per hour. Minimal urine output. Chest x-ray continues to show multifocal acute infiltrates left greater than right, no significant change compared to previous. The patient is seen today 03/05/2020 follow-up on the regular medical floor. She is currently resting comfortably in bed. Maintaining O2 saturations up to 100% on 3 L/m per nasal cannula. She's afebrile. Hemodynamically stable. Sod ium 129. Potassium 3.8. BUN 103. Creatinine 3.13. Currently on 0.5% normal saline at 50 MLS per hour. Lasix drip has been discontinued. This x-ray continues to reveal left greater than right multifocal acute infiltrates on background mild cardiomegaly and low lung volumes. Mild interstitial edema and small tiny bilateral pleural effusions. Abdominal ultrasound reveals chronic medical renal disease. No hydronephrosis. Underlying cirrhosis and portal venous hypertension suspected. Mild ascites. Splenomegaly. She remains on meropenem, bronchodilators. Objective - Vital Signs Vital signs: Vital Signs Temp 98.0 F 03/05/20 14:00 Pulse 85 03/05/20 14:00 Resp 20 03/05/20 14:00 BP 128/69 03/05/20 14:00 Pulse Ox 100 03/05/20 14:00 Intake & Output 03/04/20 03/05/20 03/05/20 18:59 06:59 18:59 Intake Total 380 1620 210 Output Total 35 10 Balance 345 1610 210 Weight 110.5 kg Intake: IV 600 Sodium Chloride 0.9% 1, 600 000 ml @ 20 mls/hr IV . Q24H ANDREA Rx#:[id number] Intake, IV Titration 100 Amount Furosemide 100 mg In 100 Sodium Chloride 0.9% 90 ml @ 10 MG/HR 10 mls/hr IV .Q10H ANDREA Rx#: [id number] Tube Feeding 280 420 210 Other 600 Output: Urine 35 10 Uretheral (Pablo) 10 Other: Voiding Method Indwelling Catheter Indwelling Catheter Indwelling Catheter # Bowel Movements 1 - Exam GENERAL EXAM: Awake, alert, 75-year-old female patient, on 3 L/m per nasal cannula, currently comfortable in no apparent distress. HEAD: Normocephalic/atraumatic. EYES: Normal reaction of pupils, equal size. Conjunctiva pink, sclera white. NOSE: Clear with pink turbinates. THROAT: No erythema or exudates. NECK: No masses, no JVD, no thyroid enlargement, no adenopathy. CHEST: No chest wall deformity. Symmetrical expansion. LUNGS: Equal air entry with crackles in the bilateral posterior bases, diminished breath sounds, CVS: Regular rate and rhythm, normal S1 and S2, no gallops, no murmurs, no rubs ABDOMEN: Soft, nontender. No hepatosplenomegaly, normal bowel sounds, no guarding or rigidity. EXTREMITIES: No clubbing, no edema, no cyanosis, 2+ pulses and upper and lower extremities. MUSCULOSKELETAL: Muscle strength and tone normal. SPINE: No scoliosis or deformity SKIN: No rashes CENTRAL NERVOUS SYSTEM: No focal deficits, tone is normal in all 4 extremities. - Labs CBC & Chem 7: 03/04/20 10:57 03/05/20 11:26 Labs: Abnormal Lab Results - Last 24 Hours (Table) 03/04/20 03/04/20 03/05/20 Range/Units 17:07 21:31 01:05 Sodium (137-145) mmol/L Carbon Dioxide (22-30) mmol/L BUN (7-17) mg/dL Creatinine (0.52-1.04) mg/dL Glucose (74-99) mg/dL POC Glucose (mg/dL) 119 H 111 H 107 H (75-99) mg/dL Calcium (8.4-10.2) mg/dL 03/05/20 03/05/20 03/05/20 Range/Units 04:41 07:36 11:26 Sodium 129 L (137-145) mmol/L Carbon Dioxide 17 L (22-30) mmol/L BUN 103 H* (7-17) mg/dL Creatinine 3.13 H (0.52-1.04) mg/dL Glucose 101 H (74-99) mg/dL POC Glucose (mg/dL) 107 H 111 H (75-99) mg/dL Calcium 7.4 L (8.4-10.2) mg/dL 03/05/20 Range/Units 11:44 Sodium (137-145) mmol/L Carbon Dioxide (22-30) mmol/L BUN (7-17) mg/dL Creatinine (0.52-1.04) mg/dL Glucose (74-99) mg/dL POC Glucose (mg/dL) 134 H (75-99) mg/dL Calcium (8.4-10.2) mg/dL Microbiology - Last 24 Hours (Table) 02/27/20 15:51 Blood Culture - Final Blood No Growth after 144 hours Assessment and Plan Assessment: 1 Acute hypoxic respiratory failure secondary to debility of healthcare acquired pneumonia, recent required intubation and placement on mechanical v entilator, was successfully weaned and extubated on 02/25/2020, transfer out of intensive care unit on 02/26/2020. Currently on 3 L/m per nasal cannula with O2 saturation at 100 %. 2 Altered mental status of unclear etiology, computed tomography scan of the brain revealed no acute intracranial abnormalities, most likely toxic metabolic encephalopathy 3 Acute urinary tract infection with urine cultures positive for pseudomonas aeruginosa, currently on meropenem 4 Acute kidney injury, worsening, current creatinine 3.13 6 Hyperkalemia related to free water deficit 7 Type 2 diabetes mellitus 8 Recent history of hospitalization related to COVID 19 related pneumonia, and GI bleeding 9 History of dysphagia requiring PEG tube placement 10 Dyslipidemia 11 History of chronic diastolic congestive heart failure 12 History of chronic GI blood loss and positive Hemoccult stools, exact etiology is not clear, to be investigated by gastroenterology 13 Chronic anemia possibly related to chronic renal failure, current hemoglobin 7.6 14 Generalized edema secondary to hypoalbuminemia 15 Severe sepsis, UTI secondary to pseudomonas aeruginosa. Plan: The patient was seen and evaluated by Dr. Leon Chest x-ray and labs reviewed Lasix 60 mg IVP 1 Worsening renal failure, nephrology is on the case Considering renal replacement therapy Her mentation continues to wax and wane Neurology consulted, toxic metabolic encephalopathy Prognosis remains guarded and poor We will continue to follow and make further recommendations based on her clinical status I, the cosigning physician, performed a history & physical examination of the patient. Lungs sounds with faint crackles in the posterior bases. Maintaining good O2 saturations in the 90s on 3 L/m per nasal cannula. I discussed the assessment and plan of care with my nurse practitioner, Cadni Horton. I attest to the above note as dictated by her.
--- NOTE | 2020-03-05 16:23 | PN ---
PROGRESS NOTE The patient is seen for followup for acute kidney injury. Over the past few days, patient's urine output has declined significantly with only about 50-60 mL noted for 24 hours. Patient has an indwelling Pablo catheter. Her creatinine, however, has been staying around 3 with no further worsening. The Pablo catheter has been changed multiple times and the bladder scan as well, did not show any significant urine retention. I have discussed with the family, her daughter, and the patient's family would like to proceed with renal replacement therapy when indicated. Respiratory status has been fairly stable. Patient's O2 sats have been 100% on 3 L nasal cannula and her other electrolytes are stable. Therefore, we will continue to monitor on a daily basis for need for renal replacement therapy. PHYSICAL EXAMINATION: On examination today, patient is comfortable. Blood pressure 128/69, heart rate 85 per minute. She answers to simple questions. She has had some oral intake. EXAMINATION OF THE HEART: S1, S2. EXAMINATION OF THE LUNGS: Bilateral breath sounds are heard. Abdomen is soft. Morbidly obese. Examination of lower extremities shows edema 2 to 3+, upper and lower extremities. RECREATIONAL SPORTS DIRECTOR exam shows patient has been moving all 4 extremities. LABS: Labs show sodium 129, potassium 3.8, chloride 102, CO2 is 17, BUN 103, serum creatinine 3.1. ASSESSMENT: 1. Acute kidney injury oliguric renal failure, most likely acute tubular necrosis with UA fairly benign on 02/26/2020 with 1+ protein. No evidence of obstructive uropathy. Patient has a Pablo catheter. Serum creatinine has been fairly stable for the last 3 days. Therefore, we are continuing to monitor for now. Family has agreed for dialysis if needed. 2. Hypervolemic hyponatremia. The patient was maintained on Lasix drip for a couple of days, but she had no improvement in her urine output. Sodium is fairly stable at this point. 3. Recent COVID-19 pneumonia. 4. Anemia of chronic disease, maintained on Aranesp. No active bleeding noted. 5. Hypernatremia, now resolved. PLAN: Continue off Lasix drip. Continue off IV fluids. Encourage increased oral intake. Check daily labs for possibly starting dialysis with worsening renal failure or worsening volume status. At this time patient's respiratory status is fairly stable. MMODL / IJN: [id number] /
[2020-03-05 17:20] LABS: Glucose,Whole Blood 129 mg/dL (75-99)
[2020-03-05] MEDS: BUDESONIDE 0.5 MG/2 ML NEBU INHALATION SCH (19:14)
[2020-03-05] MEDS: INSULIN DETEMIR (LEVEMIR) 100 UNIT/ML SYR SQ SCH (20:08)
[2020-03-05] MEDS: ACETAMINOPHEN ORAL SUSP (PEDS) 3,840 MG/120 ML BOTTLE PO PRN (20:08)
--- NOTE | 2020-03-05 22:40 | PN ---
PROGRESS NOTE DATE OF SERVICE: 03/05/2020 REASON FOR FOLLOWUP: Pseudomonas urinary tract infection and pneumonia. INTERVAL HISTORY: The patient is currently afebrile. She seems to be slightly more awake and alert. Did answer some simple questions. Denies having any chest pain or cough. No abdominal pain or diarrhea. PHYSICAL EXAMINATION: BP 124/79, pulse of 93, temperature 99.5. She is 99% on 4 L nasal cannula. General description is an elderly female lying in bed in no distress. RESPIRATORY SYSTEM: Unlabored breathing. Clear to auscultation anteriorly. HEART: S1, S2. Regular rate and rhythm. ABDOMEN: Soft. No tenderness. LABS: Creatinine is up to 3.13. DIAGNOSTIC IMPRESSION AND PLAN: Patient with pseudomonas urinary tract infection with concern for possible pneumonia in this patient currently covered with meropenem; to continue while monitoring clinical course closely. Continue with supportive care. MMODL / IJN: [id number] /
[2020-03-06 04:22] LABS: Glucose,Whole Blood 125 mg/dL (75-99)
[2020-03-06] MEDS: INSULIN ASPART (NovoLOG) 100 UNIT/ML VIAL SQ SCH ×10 (04:28→23:37)
[2020-03-06 06:04] LABS: Glucose,Whole Blood 178 mg/dL (75-99)
[2020-03-06] MEDS: BUDESONIDE 0.5 MG/2 ML NEBU INHALATION SCH ×2 (07:31→19:30)
[2020-03-06] MEDS: IPRATROPIUM-ALBUTEROL 3 ML NEB INHALATION SCH ×4 (07:31→19:30)
[2020-03-06] MEDS: HEPARIN SODIUM,PORCINE 5,000 UNIT/ML 1 ML VIAL SQ SCH ×2 (09:12→23:27)
[2020-03-06] MEDS: METOPROLOL TARTRATE 50 MG TAB PO SCH ×2 (09:12→17:49)
[2020-03-06] MEDS: CHOLECALCIFEROL 1,000 UNIT TAB PO SCH (09:13)
[2020-03-06] MEDS: ASCORBIC ACID 500 MG TAB PO SCH ×2 (09:13→23:27)
[2020-03-06] MEDS: ZINC SULFATE 220 MG CAP PO SCH (09:13)
[2020-03-06] MEDS: MULTIVITAMINS, THERA 1 EACH TAB PO SCH (09:13)
[2020-03-06] MEDS: MEROPENEM 1 GM in SODIUM CHLORIDE 0.9% 100 ML IVPB SCH ×2 (09:19→23:40)
--- NOTE | 2020-03-06 10:39 | P.PN ---
Subjective Progress Note Date: 03/02/20 Principal diagnosis: Acute hypoxic respiratory failure and acute healthcare acquired pneumonia patient is seen and evaluated in room with RN at bedside, patient was transferred out of intensive care unit yesterday; patient is quite encephalopathic and only opens eyes to vigorous stimulation however she is not verbally responding, her pulse ox was 95% on room air, however she is tachypneic, and breathing very shallowly, vital signs have been stable, she's been afebrile. chest x-ray has been reviewed showing worsening bilateral multifocal edema and/or infiltrates. Today's labs showed an increasing white count up to 21.8, from previous 19.7 on yesterday's labs, hemoglobin is 9.3, sodium is 150, potassium is 3.7, chloride is 112, anion gap has increased To 14.1, BUN is 90 creatinine is 2.0, renal function has worsened, patient is being nourished via her PEG tube, and is currently receiving Nepro tube feedings at 35, nephrology is following and have increased to 50 mL of free water through the PEG tube every 4 hours. She has not been able to take anything by mouth in view of current dysphagia and aspiration. Patient will be placed on BiPAP support. She is already on antibiotics for pseudomonal urinary tract infection. Called patient's daughter Char Morales at [phone] and give her a detailed account of patient's declining condition; daughter wants to continue with aggressive treatment that possible re-intubation if needed 02/28/2020 Patient is seen and follow-up on the regular medical floor. She continues to have issues with waxing and waning mentation. She remains on BiPAP 12/428% FiO2. Blood gases were drawn and a pO2 of 111, CO2 38 and a pH of 7.43. No evidence of hypercapnia or hypoxemia and sodium is improved to 141. Creatinine 2.04. White count 15.2. Hemoglobin 8.0. She is status post 1 unit of packed red blood cells this admission. She remains on DuoNeb inhalations, Pulmicort inhalations, antibiotics in the form of meropenem. Urine culture was positive for pseudomonas aeruginosa. Patient's oxygenation continues to wax and wane; ABGs done revealed pCO2 of 38; oil well cable tool driller service recommending CT of the head without contrast with neurology consult 02/29/2020 Patient is seen and evaluated in follow-up on the regular medical floor. She does open her eyes to verbal stimuli. She is following some simple commands today. Computed tomography scan of the brain revealed no acute intracranial abnormalities. Await further recommendations from neurology She is remaining on BiPAP 12 over 4 and 28% FiO2. O2 saturations up to 100%. Blood glucose 118. Continued on bronchodilators and meropenem. 03/01/2020 Patient is currently lying in the bed remains on BiPAP. Patient is drowsy and lethargic and encephalopathic. Was able to open her eyes with verbal stimuli. Blood pressure is stable. Laboratory data showed sodium 142 and percussion 4.5, BUN 104 and creatinine 2.9 Patient is being continued on antibiotics in the form of meropenem for pseudomonas urinary tract infection. Patient is being continued on breathing treatments and Pulmicort inhalation. Pulmonary, ID and nephrology is on board 03/02/2020 Patient is currently on BiPAP. Saturating at 90% on 2 L oxygen. Next and chest x-ray showed hypoventilatory changes and patchy peripheral interstitial infiltrates with slow improvement. WBC 15.1, hemoglobin 8.9 and BUN 108 and creatinine 3.2. Patient is afebrile. Patient is on meropenem and is on IV hydration with half normal saline.. Currently on PEG tube feeding. Current medications reviewed. Objective - Vital Signs Vital signs: Vital Signs Temp 98.2 F 03/02/20 20:00 Pulse 95 03/02/20 20:00 Resp 16 03/02/20 20:00 BP 109/77 03/02/20 20:00 Pulse Ox 99 03/02/20 20:00 Intake & Output 03/02/20 03/02/20 03/03/20 06:59 18:59 06:59 Intake Total 425 Output Total 100 102 Balance 325 -102 Weight 106.8 kg Intake: Oral 0 Tube Feeding 425 Output: Urine 100 100 Stool 2 Other: Voiding Method Indwelling Catheter Indwelling Catheter # Voids 1 # Bowel Movements 1 - Exam GENERAL EXAM: Quite drowsy, 75-year-old white female, on BIPAP, breathing s hallowly, and respirations are tachypneic, daily responding to tactile stimulation HEAD: Normocephalic/atraumatic. EYES: Normal reaction of pupils, equal size. Conjunctiva pink, sclera white. NOSE: Clear with pink turbinates. THROAT: No erythema or exudates. NECK: No masses, no JVD, no thyroid enlargement, no adenopathy. CHEST: No chest wall deformity. Symmetrical expansion. LUNGS: Equal air entry with diminished breath sounds, CVS: Regular rate and rhythm, normal S1 and S2, no gallops, no murmurs, no rubs ABDOMEN: Soft, nontender. No hepatosplenomegaly, normal bowel sounds, no guarding or rigidity. EXTREMITIES: No clubbing, no edema, no cyanosis, 2+ pulses and upper and lower extremities. - Labs CBC & Chem 7: 03/04/20 10:57 03/05/20 11:26 Labs: Abnormal Lab Results - Last 24 Hours (Table) 03/02/20 03/02/20 03/02/20 Range/Units 06:19 06:19 06:41 WBC 15.1 H (3.8-10.6) k/uL RBC 3.00 L (3.80-5.40) m/uL Hgb 8.9 L (11.4-16.0) gm/dL Hct 28.2 L (34.0-46.0) % RDW 16.0 H (11.5-15.5) % Neutrophils # (Manual) 13.70 H (1.3-7.7) k/uL Lymphocytes # (Manual) 0.30 L (1.0-4.8) k/uL BUN 108.0 H* (9.0-27.0) mg/dL Creatinine 3.2 H (0.6-1.5) mg/dL Est GFR (CKD-EPI)AfAm 15.4 L (60.0-200.0) Est GFR (CKD-EPI)NonAf 13.3 L (60.0-200.0) BUN/Creatinine Ratio 33.75 H (12.00-20.00) Ratio POC Glucose (mg/dL) 125 H (75-99) mg/dL Calcium 8.0 L (8.7-10.3) mg/dL 03/02/20 03/02/20 03/02/20 Range/Units 11:29 16:22 21:22 WBC (3.8-10.6) k/uL RBC (3.80-5.40) m/uL Hgb (11.4-16.0) gm/dL Hct (34.0-46.0) % RDW (11.5-15.5) % Neutrophils # (Manual) (1.3-7.7) k/uL Lymphocytes # (Manual) (1.0-4.8) k/uL BUN (9.0-27.0) mg/dL Creatinine (0.6-1.5) mg/dL Est GFR (CKD-EPI)AfAm (60.0-200.0) Est GFR (CKD-EPI)NonAf (60.0-200.0) BUN/Creatinine Ratio (12.00-20.00) Ratio POC Glucose (mg/dL) 104 H 183 H 137 H (75-99) mg/dL Calcium (8.7-10.3) mg/dL Microbiology - Last 24 Hours (Table) 02/27/20 15:51 Blood Culture - Preliminary Blood No Growth after 96 hours Assessment and Plan Assessment: -Acute hypoxic respiratory failure/ secondary to sepsis and encephalopathy. Patient was extubated on 02/25/2020. Currently on BiPAP. -Toxic encephalopathy: Secondary to sepsis most probably from urinary tract infection Pablo catheter will be changed patient has Pseudomonas in the urine patient is presently on cefepime although patient hasn't remitted susceptibility to cefepime as well as Zosyn. We will repeat urine analysis since the Pabol catheter was replaced patient may or may not need antibiotics we'll make the decision depending on urinalysis results. Infectious disease was consulted. -Pseudomonal UTI -Sepsis secondary to UTI -Acute on Chronic kidney disease stage IIIB: Nephrology is following the patient IV fluids as per nephrology. Patient blood pressure is low normal at this time. Patient is also receiving albumin,epogen as per nephrology -Type 2 diabetes mellitus. -Recent Covid 19 infection. -Hyperlipidemia -Dysphagia for which patient has a PEG tube -DVT prophylaxis: Subcutaneous heparin Time with Patient: Greater than 30
--- NOTE | 2020-03-06 10:41 | P.PN ---
Subjective Progress Note Date: 03/03/20 Principal diagnosis: Acute hypoxic respiratory failure and acute healthcare acquired pneumonia patient is seen and evaluated in room with RN at bedside, patient was transferred out of intensive care unit yesterday; patient is quite encephalopathic and only opens eyes to vigorous stimulation however she is not verbally responding, her pulse ox was 95% on room air, however she is tachypneic, and breathing very shallowly, vital signs have been stable, she's been afebrile. chest x-ray has been reviewed showing worsening bilateral multifocal edema and/or infiltrates. Today's labs showed an increasing white count up to 21.8, from previous 19.7 on yesterday's labs, hemoglobin is 9.3, sodium is 150, potassium is 3.7, chloride is 112, anion gap has increased To 14.1, BUN is 90 creatinine is 2.0, renal function has worsened, patient is being nourished via her PEG tube, and is currently receiving Nepro tube feedings at 35, nephrology is following and have increased to 50 mL of free water through the PEG tube every 4 hours. She has not been able to take anything by mouth in view of current dysphagia and aspiration. Patient will be placed on BiPAP support. She is already on antibiotics for pseudomonal urinary tract infection. Called patient's daughter Char Morales at [phone] and give her a detailed account of patient's declining condition; daughter wants to continue with aggressive treatment that possible re-intubation if needed 02/28/2020 Patient is seen and follow-up on the regular medical floor. She continues to have issues with waxing and waning mentation. She remains on BiPAP 12/428% FiO2. Blood gases were drawn and a pO2 of 111, CO2 38 and a pH of 7.43. No evidence of hypercapnia or hypoxemia and sodium is improved to 141. Creatinine 2.04. White count 15.2. Hemoglobin 8.0. She is status post 1 unit of packed red blood cells this admission. She remains on DuoNeb inhalations, Pulmicort inhalations, antibiotics in the form of meropenem. Urine culture was positive for pseudomonas aeruginosa. 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 She does open her eyes to verbal stimuli. She is following some simple commands today. Computed tomography scan of the brain revealed no acute intracranial abnormalities. Await further recommendations from neurology She is remaining on BiPAP 12 over 4 and 28% FiO2. O2 saturations up to 100%. Blood glucose 118. Continued on bronchodilators and meropenem. 03/01/2020 Patient is currently lying in the bed remains on BiPAP. Patient is drowsy and lethargic and encephalopathic. Was able to open her eyes with verbal stimuli. Blood pressure is stable. Laboratory data showed sodium 142 and percussion 4.5, BUN 104 and creatinine 2.9 Patient is being continued on antibiotics in the form of meropenem for pseudomonas urinary tract infection. Patient is being continued on breathing treatments and Pulmicort inhalation. Pulmonary, ID and nephrology is on board 03/02/2020 Patient is currently on BiPAP. Saturating at 90% on 2 L oxygen. Next and chest x-ray showed hypoventilatory changes and patchy peripheral interstitial infiltrates with slow improvement. WBC 15.1, hemoglobin 8.9 and BUN 108 and creatinine 3.2. Patient is afebrile. Patient is on meropenem and is on IV hydration with half normal saline.. Currently on PEG tube feeding. 03/03/2020 Patient is on BiPAP 12 x 4. Patient is able to open her eyes. Afebrile. Laboratory data showed sodium 132, potassium 4.3, BUN 107 and creatinine 3.0 Continue on PEG feeding and supportive care. Chest x-ray showed no significant change. Pulmonary and nephrology is on board. Current medications reviewed. Objective - Vital Signs Vital signs: Vital Signs Temp 98 F 03/03/20 14:00 Pulse 84 03/03/20 17:20 Resp 24 03/03/20 14:00 BP 116/73 03/03/20 17:20 Pulse Ox 100 03/03/20 14:00 Intake & Output 03/02/20 03/03/20 03/03/20 18:59 06:59 18:59 Intake Total 425 Output Total 102 75 Balance -102 350 Weight 110.5 kg Intake: Oral 0 Tube Feeding 425 Output: Urine 100 75 Stool 2 Other: Voiding Method Indwelling Catheter Indwelling Catheter # Voids 1 # Bowel Movements 1 1 - Exam GENERAL EXAM: Quite drowsy, 75-year-old white female, on BIPAP, breathing shallowly, and respirations are tachypneic, daily responding to tactile stimulation HEAD: Normocephalic/atraumatic. EYES: Normal reaction of pupils, equal size. Conjunctiva pink, sclera white. NOSE: Clear with pink turbinates. THROAT: No erythema or exudates. NECK: No masses, no JVD, no thyroid enlargement, no adenopathy. CHEST: No chest wall deformity. Symmetrical expansion. LUNGS: Equal air entry with diminished breath sounds, CVS: Regular rate and rhythm, normal S1 and S2, no gallops, no murmurs, no rubs ABDOMEN: Soft, nontender. No hepatosplenomegaly, normal bowel sounds, no guarding or rigidity. EXTREMITIES: No clubbing, no edema, no cyanosis, 2+ pulses and upper and lower extremities. - Labs CBC & Chem 7: 03/04/20 10:57 03/05/20 11:26 Labs: Abnormal Lab Results - Last 24 Hours (Table) 03/02/20 03/03/20 03/03/20 Range/Units 21:22 07:08 08:56 Sodium (137-145) mmol/L Carbon Dioxide (22-30) mmol/L BUN (7-17) mg/dL Creatinine (0.52-1.04) mg/dL Glucose (74-99) mg/dL POC Glucose (mg/dL) 137 H 177 H 165 H (75-99) mg/dL Calcium (8.4-10.2) mg/dL 03/03/20 03/03/20 Range/Units 11:37 12:22 Sodium 132 L (137-145) mmol/L Carbon Dioxide 18 L (22-30) mmol/L BUN 107 H* (7-17) mg/dL Creatinine 3.00 H (0.52-1.04) mg/dL Glucose 114 H (74-99) mg/dL POC Glucose (mg/dL) 132 H (75-99) mg/dL Calcium 8.3 L (8.4-10.2) mg/dL Microbiology - Last 24 Hours (Table) 02/27/20 15:51 Blood Culture - Preliminary Blood No Growth after 96 hours Assessment and Plan Assessment: -Acute hypoxic respiratory failure/ secondary to sepsis and encephalopathy. Isac rosana was extubated on 02/25/2020. Currently on BiPAP. -Toxic encephalopathy: Secondary to sepsis most probably from urinary tract infection Pablo catheter will be changed patient has Pseudomonas in the urine patient is presently on cefepime although patient hasn't remitted susceptibility to cefepime as well as Zosyn. We will repeat urine analysis since the Pablo catheter was replaced patient may or may not need antibiotics we'll make the decision depending on urinalysis results. Infectious disease was consulted. -Pseudomonal UTI -Sepsis secondary to UTI -Acute on Chronic kidney disease stage IIIB: Nephrology is following the patient IV fluids as per nephrology. Patient blood pressure is low normal at this time. Patient is also receiving albumin,epogen as per nephrology -Type 2 diabetes mellitus. -Recent Covid 19 infection. -Hyperlipidemia -Dysphagia for which patient has a PEG tube -DVT prophylaxis: Subcutaneous heparin Time with Patient: Greater than 30
--- NOTE | 2020-03-06 10:44 | P.PN ---
Subjective Progress Note Date: 03/04/20 Principal diagnosis: Acute hypoxic respiratory failure and acute healthcare acquired pneumonia patient is seen and evaluated in room with RN at bedside, patient was transferred out of intensive care unit yesterday; patient is quite encephalopathic and only opens eyes to vigorous stimulation however she is not verbally responding, her pulse ox was 95% on room air, however she is tachypneic, and breathing very shallowly, vital signs have been stable, she's been afebrile. chest x-ray has been reviewed showing worsening bilateral multifocal edema and/or infiltrates. Today's labs showed an increasing white count up to 21.8, from previous 19.7 on yesterday's labs, hemoglobin is 9.3, sodium is 150, potassium is 3.7, chloride is 112, anion gap has increased To 14.1, BUN is 90 creatinine is 2.0, renal function has worsened, patient is being nourished via her PEG tube, and is currently receiving Nepro tube feedings at 35, nephrology is following and have increased to 50 mL of free water through the PEG tube every 4 hours. She has not been able to take anything by mouth in view of current dysphagia and aspiration. Patient will be placed on BiPAP support. She is already on antibiotics for pseudomonal urinary tract infection. Called patient's daughter Char Morales at [phone] and give her a detailed account of patient's declining condition; daughter wants to continue with aggressive treatment that possible re-intubation if needed 02/28/2020 Patient is seen and follow-up on the regular medical floor. She continues to have issues with waxing and waning mentation. She remains on BiPAP 12/428% FiO2. Blood gases were drawn and a pO2 of 111, CO2 38 and a pH of 7.43. No evidence of hypercapnia or hypoxemia and sodium is improved to 141. Creatinine 2.04. White count 15.2. Hemoglobin 8.0. She is status post 1 unit of packed red blood cells this admission. She remains on DuoNeb inhalations, Pulmicort inhalations, antibiotics in the form of meropenem. Urine culture was positive for pseudomonas aeruginosa. 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 She does open her eyes to verbal stimuli. She is following some simple commands today. Computed tomography scan of the brain revealed no acute intracranial abnormalities. Await further recommendations from neurology She is remaining on BiPAP 12 over 4 and 28% FiO2. O2 saturations up to 100%. Blood glucose 118. Continued on bronchodilators and meropenem. 03/01/2020 Patient is currently lying in the bed remains on BiPAP. Patient is drowsy and lethargic and encephalopathic. Was able to open her eyes with verbal stimuli. Blood pressure is stable. Laboratory data showed sodium 142 and percussion 4.5, BUN 104 and creatinine 2.9 Patient is being continued on antibiotics in the form of meropenem for pseudomonas urinary tract infection. Patient is being continued on breathing treatments and Pulmicort inhalation. Pulmonary, ID and nephrology is on board 03/02/2020 Patient is currently on BiPAP. Saturating at 90% on 2 L oxygen. Next and chest x-ray showed hypoventilatory changes and patchy peripheral interstitial infiltrates with slow improvement. WBC 15.1, hemoglobin 8.9 and BUN 108 and creatinine 3.2. Patient is afebrile. Patient is on meropenem and is on IV hydration with half normal saline.. Currently on PEG tube feeding. 03/03/2020 Patient is on BiPAP 12 x 4. Patient is able to open her eyes. Afebrile. Laboratory data showed sodium 132, potassium 4.3, BUN 107 and creatinine 3.0 Continue on PEG feeding and supportive care. Chest x-ray showed no significant change. Pulmonary and nephrology is on board. 03/04/2020 Patient remained on BiPAP support with FiO2 28%. Patient is awake and open her eyes. Breathing comfortably at this time. Denied any complaints of chest pain. Tolerating PEG tube feeding. Otherwise laboratory data showed BUN 111 and creatinine 3.12. Nephrology is on board. patient's daughter wants to continue on full CODE STATUS. Considering hemodialysis as per nephrology. Laboratory data showed WBC 15.1, hemoglobin 7.6 and sodium 129 and potassium 4.4 Pulmonary and nephrology is on board. Current medications reviewed. Objective - Vital Signs Vital signs: Vital Signs Temp 98.9 F 03/04/20 13:01 Pulse 75 03/04/20 15:15 Resp 23 03/04/20 13:01 BP 131/85 03/04/20 13:01 Pulse Ox 100 03/04/20 13:01 Intake & Output 03/03/20 03/04/20 03/04/20 18:59 06:59 18:59 Intake Total 1050 94.167 380 Output Total 57 25 0 Balance 993 69.167 380 Weight 110.5 kg Intake: Intake, IV Titration 630 94.167 100 Amount Furosemide 100 mg In 30 94.167 100 Sodium Chloride 0.9% 90 ml @ 10 MG/HR 10 mls/hr IV .Q10H ANDREA Rx#: [id number] Sodium Chloride 0.45% 1, 600 000 ml @ 50 mls/hr IV . Q20H ANDREA Rx#:[id number] Tube Feeding 420 280 Output: Urine 55 25 0 Uretheral (Pablo) 25 Stool 2 Other: Voiding Method Indwelling Catheter Indwelling Catheter # Bowel Movements 1 - Exam GENERAL EXAM: Quite drowsy, 75-year-old white female, on BIPAP, breathing shallowly, and respirations are tachypneic, daily responding to tactile stimul ation HEAD: Normocephalic/atraumatic. EYES: Normal reaction of pupils, equal size. Conjunctiva pink, sclera white. NOSE: Clear with pink turbinates. THROAT: No erythema or exudates. NECK: No masses, no JVD, no thyroid enlargement, no adenopathy. CHEST: No chest wall deformity. Symmetrical expansion. LUNGS: Equal air entry with diminished breath sounds, CVS: Regular rate and rhythm, normal S1 and S2, no gallops, no murmurs, no rubs ABDOMEN: Soft, nontender. No hepatosplenomegaly, normal bowel sounds, no guarding or rigidity. EXTREMITIES: No clubbing, no edema, no cyanosis, 2+ pulses and upper and lower extremities. - Labs CBC & Chem 7: 03/04/20 10:57 03/05/20 11:26 Labs: Abnormal Lab Results - Last 24 Hours (Table) 03/03/20 03/03/20 03/04/20 Range/Units 18:05 23:58 07:37 WBC (3.8-10.6) k/uL RBC (3.80-5.40) m/uL Hgb (11.4-16.0) gm/dL Hct (34.0-46.0) % RDW (11.5-15.5) % Sodium (137-145) mmol/L Carbon Dioxide (22-30) mmol/L BUN (7-17) mg/dL Creatinine (0.52-1.04) mg/dL Glucose (74-99) mg/dL POC Glucose (mg/dL) 131 H 129 H 139 H (75-99) mg/dL Calcium (8.4-10.2) mg/dL 03/04/20 03/04/20 03/04/20 Range/Units 10:57 10:57 11:11 WBC 15.1 H (3.8-10.6) k/uL RBC 2.54 L (3.80-5.40) m/uL Hgb 7.6 L (11.4-16.0) gm/dL Hct 24.0 L (34.0-46.0) % RDW 15.7 H (11.5-15.5) % Sodium 129 L (137-145) mmol/L Carbon Dioxide 18 L (22-30) mmol/L BUN 111 H* (7-17) mg/dL Creatinine 3.12 H (0.52-1.04) mg/dL Glucose 109 H (74-99) mg/dL POC Glucose (mg/dL) 133 H (75-99) mg/dL Calcium 8.2 L (8.4-10.2) mg/dL 03/04/20 Range/Units 17:07 WBC (3.8-10.6) k/uL RBC (3.80-5.40) m/uL Hgb (11.4-16.0) gm/dL Hct (34.0-46.0) % RDW (11.5-15.5) % Sodium (137-145) mmol/L Carbon Dioxide (22-30) mmol/L BUN (7-17) mg/dL Creatinine (0.52-1.04) mg/dL Glucose (74-99) mg/dL POC Glucose (mg/dL) 119 H (75-99) mg/dL Calcium (8.4-10.2) mg/dL Microbiology - Last 24 Hours (Table) 02/27/20 15:51 Blood Culture - Preliminary Blood No Growth after 120 hours Assessment and Plan Assessment: -Acute hypoxic respiratory failure/ secondary to sepsis and encephalopathy. Patient was extubated on 02/25/2020. Currently on BiPAP. -Toxic encephalopathy: Secondary to sepsis most probably from urinary tract infection Pablo catheter will be changed patient has Pseudomonas in the urine patient is presently on cefepime although patient hasn't remitted susceptibility to cefepime as well as Zosyn. We will repeat urine analysis since the Pablo catheter was replaced patient may or may not need antibiotics we'll make the decision depending on urinalysis results. Infectious disease was consulted. -Pseudomonal UTI -Sepsis secondary to UTI -Acute on Chronic kidney disease stage IIIB: Nephrology is following the patient IV fluids as per nephrology. Patient blood pressure is low normal at this time. Patient is also receiving albumin,epogen as per nephrology -Type 2 diabetes mellitus. -Recent Covid 19 infection. -Hyperlipidemia -Dysphagia for which patient has a PEG tube -DVT prophylaxis: Subcutaneous heparin Time with Patient: Greater than 30
--- NOTE | 2020-03-06 10:49 | P.PN ---
Subjective Progress Note Date: 03/05/20 Principal diagnosis: Acute hypoxic respiratory failure and acute healthcare acquired pneumonia patient is seen and evaluated in room with RN at bedside, patient was transferred out of intensive care unit yesterday; patient is quite encephalopathic and only opens eyes to vigorous stimulation however she is not verbally responding, her pulse ox was 95% on room air, however she is tachypneic, and breathing very shallowly, vital signs have been stable, she's been afebrile. chest x-ray has been reviewed showing worsening bilateral multifocal edema and/or infiltrates. Today's labs showed an increasing white count up to 21.8, from previous 19.7 on yesterday's labs, hemoglobin is 9.3, sodium is 150, potassium is 3.7, chloride is 112, anion gap has increased To 14.1, BUN is 90 creatinine is 2.0, renal function has worsened, patient is being nourished via her PEG tube, and is currently receiving Nepro tube feedings at 35, nephrology is following and have increased to 50 mL of free water through the PEG tube every 4 hours. She has not been able to take anything by mouth in view of current dysphagia and aspiration. Patient will be placed on BiPAP support. She is already on antibiotics for pseudomonal urinary tract infection. Called patient's daughter Char Morales at [phone] and give her a detailed account of patient's declining condition; daughter wants to continue with aggressive treatment that possible re-intubation if needed 02/28/2020 Patient is seen and follow-up on the regular medical floor. She continues to have issues with waxing and waning mentation. She remains on BiPAP 12/428% FiO2. Blood gases were drawn and a pO2 of 111, CO2 38 and a pH of 7.43. No evidence of hypercapnia or hypoxemia and sodium is improved to 141. Creatinine 2.04. White count 15.2. Hemoglobin 8.0. She is status post 1 unit of packed red blood cells this admission. She remains on DuoNeb inhalations, Pulmicort inhalations, antibiotics in the form of meropenem. Urine culture was positive for pseudomonas aeruginosa. Patient's oxygenation continues to wax and wane; ABGs done revealed pCO2 of 38; puppet developer service recommending CT of the head without contrast with neurology consult 02/29/2020 Patient is seen and evaluated in follow-up on the regular medical floor. She does open her eyes to verbal stimuli. She is following some simple commands today. Computed tomography scan of the brain revealed no acute intracranial abnormalities. Await further recommendations from neurology She is remaining on BiPAP 12 over 4 and 28% FiO2. O2 saturations up to 100%. Blood glucose 118. Continued on bronchodilators and meropenem. 03/01/2020 Patient is currently lying in the bed remains on BiPAP. Patient is drowsy and lethargic and encephalopathic. Was able to open her eyes with verbal stimuli. Blood pressure is stable. Laboratory data showed sodium 142 and percussion 4.5, BUN 104 and creatinine 2.9 Patient is being continued on antibiotics in the form of meropenem for pseudomonas urinary tract infection. Patient is being continued on breathing treatments and Pulmicort inhalation. Pulmonary, ID and nephrology is on board 03/02/2020 Patient is currently on BiPAP. Saturating at 90% on 2 L oxygen. Next and chest x-ray showed hypoventilatory changes and patchy peripheral interstitial infiltrates with slow improvement. WBC 15.1, hemoglobin 8.9 and BUN 108 and creatinine 3.2. Patient is afebrile. Patient is on meropenem and is on IV hydration with half normal saline.. Currently on PEG tube feeding. 03/03/2020 Patient is on BiPAP 12 x 4. Patient is able to open her eyes. Afebrile. Laboratory data showed sodium 132, potassium 4.3, BUN 107 and creatinine 3.0 Continue on PEG feeding and supportive care. Chest x-ray showed no significant change. Pulmonary and nephrology is on board. 03/04/2020 Patient remained on BiPAP support with FiO2 28%. Patient is awake and open her eyes. Breathing comfortably at this time. Denied any complaints of chest pain. Tolerating PEG tube feeding. Otherwise laboratory data showed BUN 111 and creatinine 3.12. Nephrology is on board. patient's daughter wants to continue on full CODE STATUS. Considering hemodialysis as per nephrology. Laboratory data showed WBC 15.1, hemoglobin 7.6 and sodium 129 and potassium 4.4 Pulmonary and nephrology is on board. 03/05/2020 Patient is currently resting in the bed comfortably. On oxygen with another cannula. Patient has been afebrile. No complaints of chest pain or worsening shortness of breath. Chest x-ray showed left greater than right multifocal acute infiltrates on the background mild cardiomegaly and low lung volumes redemonstrated. Perhaps new mild interstitial edema and small to tiny left greater than right pleural effusions assisting fluid component on the background of chronic changes. Ultrasound of the abdomen showed evidence of chronic medical renal disease. No hydronephrosis noted bilaterally. Underlying cirrhosis and portal hypertension suspected. Patient was given a dose of IV Lasix. IV Fluids on hold. Laboratory data showed BUN 103 and creatinine 3.13 and calcium 7.4, sodium 129 and potassium 3.8 Nephrology and pulmonary is on board. Patient remained on antibiotics in form of meropenem. Current medications reviewed. Objective - Vital Signs Vital signs: Vital Signs Temp 98.0 F 03/05/20 14:00 Pulse 84 03/05/20 15:33 Resp 20 03/05/20 14:00 BP 128/69 03/05/20 14:00 Pulse Ox 100 03/05/20 14:00 Intake & Output 03/04/20 03/05/20 03/05/20 18:59 06:59 18:59 Intake Total 380 1620 210 Output Total 35 10 Balance 345 1610 210 Weight 110.5 kg 115 kg Intake: IV 600 Sodium Chloride 0.9% 1, 600 000 ml @ 20 mls/hr IV . Q24H [facility] Rx#:[id number] Intake, IV Titration 100 Amount Furosemide 100 mg In 100 Sodium Chloride 0.9% 90 ml @ 10 MG/HR 10 mls/hr IV .Q10H [facility] Rx#: [id number] Tube Feeding 280 420 210 Other 600 Output: Urine 35 10 Uretheral (Pablo) 10 Other: Voiding Method Indwelling Catheter Indwelling Catheter Indwelling Catheter # Bowel Movements 1 - Exam GENERAL EXAM: Quite drowsy, 75-year-old white female, on nasal cannula. Awake alert. HEAD: Normocephalic/atraumatic. EYES: Normal reaction of pupils, equal size. Conjunctiva pink, sclera white. NOSE: Clear with pink turbinates. THROAT: No erythema or exudates. NECK: No masses, no JVD, no thyroid enlargement, no adenopathy. CHEST: No chest wall deformity. Symmetrical expansion. Bibasilar diminished air entry. LUNGS: Equal air entry with diminished breath sounds, CVS: Regular rate and rhythm, normal S1 and S2, no gallops, no murmurs, no rubs ABDOMEN: Soft, nontender. No hepatosplenomegaly, normal bowel sounds, no guarding or rigidity. EXTREMITIES: No clubbing, no edema, no cyanosis, 2+ pulses and upper and lower extremities. - Labs CBC & Chem 7: 03/04/20 10:57 03/05/20 11:26 Labs: Abnormal Lab Results - Last 24 Hours (Table) 03/04/20 03/04/20 03/05/20 Range/Units 17:07 21:31 01:05 Sodium (137-145) mmol/L Carbon Dioxide (22-30) mmol/L BUN (7-17) mg/dL Creatinine (0.52-1.04) mg/dL Glucose (74-99) mg/dL POC Glucose (mg/dL) 119 H 111 H 107 H (75-99) mg/dL Calcium (8.4-10.2) mg/dL 03/05/20 03/05/20 03/05/20 Range/Units 04:41 07:36 11:26 Sodium 129 L (137-145) mmol/L Carbon Dioxide 17 L (22-30) mmol/L BUN 103 H* (7-17) mg/dL Creatinine 3.13 H (0.52-1.04) mg/dL Glucose 101 H (74-99) mg/dL POC Glucose (mg/dL) 107 H 111 H (75-99) mg/dL Calcium 7.4 L (8.4-10.2) mg/dL 03/05/20 Range/Units 11:44 Sodium (137-145) mmol/L Carbon Dioxide (22-30) mmol/L BUN (7-17) mg/dL Creatinine (0.52-1.04) mg/dL Glucose (74-99) mg/dL POC Glucose (mg/dL) 134 H (75-99) mg/dL Calcium (8.4-10.2) mg/dL Microbiology - Last 24 Hours (Table) 02/27/20 15:51 Blood Culture - Final Blood No Growth after 144 hours Assessment and Plan Assessment: -Acute hypoxic respiratory failure/ secondary to sepsis and encephalopathy. Patient was extubated on 02/25/2020. Currently on BiPAP. Transition to nasal cannula. -Toxic encephalopathy: Secondary to sepsis most probably from urinary tract infection Pablo catheter will be changed patient has Pseudomonas in the urine patient is presently on cefepime although patient hasn't remitted susceptibility to cefepime as well as Zosyn. We will repeat urine analysis since the Pablo catheter was replaced patient may or may not need antibiotics we'll make the decision depending on urinalysis results. Infectious disease was consulted. -Pseudomonal UTI -Sepsis secondary to UTI -Acute on Chronic kidney disease stage IIIB: Nephrology is following the patient IV fluids as per nephrology. Patient blood pressure is low normal at this time. Patient is also receiving albumin,epogen as per nephrology -Type 2 diabetes mellitus. -Recent Covid 19 infection. -Hyperlipidemia -Dysphagia for which patient has a PEG tube -DVT prophylaxis: Subcutaneous heparin Time with Patient: Greater than 30
--- NOTE | 2020-03-06 11:49 | P.PN ---
Subjective Patient is seen in follow-up for acute kidney injury on chronic kidney disease. Patient has chronic kidney disease stage III with baseline creatinine near 1.5. Urine output remains low. About 50 mL in the last 24 hours. She did receive a dose of IV Lasix yesterday. She is receiving to pitting. Quite edematous. On 4 L nasal cannula. Vital signs are stable. General: The patient appeared well nourished and normally developed. HEENT: Head exam is unremarkable. Neck is without jugular venous distension. LUNGS: Breath sounds decreased. HEART: Rate and Rhythm are regular. ABDOMEN: Soft, nontender. EXTREMITITES: 2+ edema. Objective - Vital Signs Vital signs: Vital Signs Temp 98.3 F 03/06/20 08:00 Pulse 93 03/06/20 10:58 Resp 18 03/06/20 08:00 BP 117/79 03/06/20 08:00 Pulse Ox 99 03/06/20 08:00 Intake & Output 03/05/20 03/06/20 03/06/20 18:59 06:59 18:59 Intake Total 710 240 Output Total 5 52 2 Balance 705 188 -2 Intake: IV 500 Sodium Chloride 0.45% 1, 500 000 ml @ 50 mls/hr IV . Q20H [facility] Rx#:[id number] Oral 0 Tube Feeding 210 240 Output: Urine 5 50 Stool 2 2 Other: Voiding Method Indwelling Catheter Indwelling Catheter Indwelling Catheter - Labs CBC & Chem 7: 03/04/20 10:57 03/05/20 11:26 Labs: Abnormal Lab Results - Last 24 Hours (Table) 03/05/20 03/05/20 03/05/20 Range/Units 11:26 11:44 17:16 Sodium 129 L (137-145) mmol/L Carbon Dioxide 17 L (22-30) mmol/L BUN 103 H* (7-17) mg/dL Creatinine 3.13 H (0.52-1.04) mg/dL Glucose 101 H (74-99) mg/dL POC Glucose (mg/dL) 134 H 129 H (75-99) mg/dL Calcium 7.4 L (8.4-10.2) mg/dL 03/06/20 03/06/20 Range/Units 04:20 06:01 Sodium (137-145) mmol/L Carbon Dioxide (22-30) mmol/L BUN (7-17) mg/dL Creatinine (0.52-1.04) mg/dL Glucose (74-99) mg/dL POC Glucose (mg/dL) 125 H 178 H (75-99) mg/dL Calcium (8.4-10.2) mg/dL Assessment and Plan Plan: Assessment: 1. Chronic kidney disease stage IIIB secondary to nephrosclerosis with baseline creatinine near 1.5. No hydronephrosis noted on kidney ultrasound done in January 2020. Left kidney wasn't visualized. Right kidney was small in size. 2. Hypervolemic hyponatremia. 3. Anemia of chronic kidney disease. No active bleeding noted. She does have history of GI bleed. Status post blood transfusion this admission. On Aranesp. 4. Generalized edema partially due to hypoalbuminemia causing third spacing. 5. Diabetes mellitus. 6. Acute kidney injury secondary to ATN secondary to infection. Also component of infection. No evidence of hydronephrosis noted on kidney ultrasound. 7. UTI. Urine culture positive for Pseudomonas maintained on antibiotics. 8. Metabolic acidosis secondary to acute kidney injury. Plan: Maintain tube feeding. 25 g IV albumin 2 doses today. Lasix 60 mg IV once to be given 1 hour after first dose of albumin completed. Avoid nephrotoxins. Continue to monitor renal function and urine output. Repeat electrolytes in the morning. Add oral bicarb. Continue to assess for renal replacement therapy on a daily basis. AM labs pending.
[2020-03-06 12:06] LABS: Glucose,Whole Blood 170 mg/dL (75-99)
[2020-03-06] MEDS: ALBUMIN HUMAN 25% 50 ML in EMPTY BAG 1 BAG IVPB SCH ×4 (12:53→20:43)
[2020-03-06] MEDS: FOLIC ACID 1 MG TAB PO SCH (12:55)
[2020-03-06] MEDS: THIAMINE 100 MG TAB PO SCH (12:55)
[2020-03-06] MEDS: SODIUM BICARBONATE TAB 650 MG TAB PO SCH ×3 (12:56→23:28)
[2020-03-06 13:38] LABS: ALT 11 U/L (4-34); African American GFR (CKD) 14 (>60 ml/min/1.73 sqM); Albumin 2.1 g/dL (3.5-5.0); Albumin/Globulin Ratio 1.1; Anion Gap 12 mmol/L; Calcium 8.5 mg/dL (8.4-10.2); Carbon Dioxide 16 mmol/L (22-30); Chloride 99 mmol/L (98-107); Glucose 130 mg/dL (74-99); Non-African American GFR(CKD) 12 (>60 ml/min/1.73 sqM); Phosphorus 6.4 mg/dL (2.5-4.5); Sodium 127 mmol/L (137-145); Total Bilirubin 0.6 mg/dL (0.2-1.3); Total Protein 4.1 g/dL (6.3-8.2)
[2020-03-06 13:46] LABS: Blood Urea Nitrogen 126 mg/dL (7-17); Potassium 4.8 mmol/L (3.5-5.1)
[2020-03-06 13:47] LABS: AST 26 U/L (14-36); Alkaline Phosphatase 48 U/L (38-126); Magnesium 1.9 mg/dL (1.6-2.3)
--- NOTE | 2020-03-06 13:53 | P.PN ---
Subjective Progress Note Date: 03/06/20 Principal diagnosis: Acute hypoxic respiratory failure secondary to acute healthcare acquired pneumonia This is a 75-year-old female, familiar to my service, patient was recently at [facility], and she was initially admitted on 01/05/20. She was eventually discharged to a rehab facility on 02/19/20. Patient had many medical problems during her last admission included acute GI bleeding, acute on chronic diastolic congestive heart failure, acute covid 19 pneumonitis, H influenza pneumonia, and recurrent urinary tract infection. chronic kidney disease, hypertension, hypoxic respiratory failure secondary to pneumonia, obesity with BMI of 35.9, patient required PEG tube placement while she was in the hospital. She was seen by many consultants during her last hospital admission. Patient was eventually discharged to rehab facility on 02/19/20. However the patient was in the rehab facility for less than one day, apparently she developed worsening mental status, worsening shortness of breath. Hence the patient was transferred to [facility] in [facility], admitted for few days, and she continued to worsen, there was a concern about ongoing GI blood losses and hemoglobin. There is also a concern about her worsening pulmonary status, patient was transferred to [facility] and this consult was initiated. Apparently the day of her transferred to [facility], patient was intubated and required mechanical ventilation. Upon my evaluation the patient today in the ICU, patient is on assist control rate of 14, tidal volume is 480, FiO2 45% and PEEP of 5. ABG showed a pO2 of 130 pCO2 of 33 pH of 7.47. After reviewing the ABG, her ventilator settings were changed to tolerate volume is 450 assist-control rate 18 and kept her on 45% FiO2. Chest x-ray showed minimal bilateral infiltrates. Urinalysis is consistent with pyuria and bacteriuria. Hemoglobin is noted to be 7.3. WBC count is 19.9. And BUN is 78 creatinine 1.47. Patient was empirically started on cefepime for presumptive urinary tract infection and pneumonia patient had previous pseudomonal urinary tract infection. Not much history could be obtained from the patient most of the information obtained so far is from the chart Patient was reevaluated today on 02/25/2020, remains in the ICU, intubated and mechanically ventilated. She is on assist control rate of 18 tidal volume 455- 45% PEEP of 5. ABG showed a pO2 of 166 pCO2 of 32 pH of 7.49. On propofol at 30 mcg/kg/m, IV fluid 0.9 normal saline at 65 mL per hour. Remains on enteral feeding. She is also on cefepime empirically for presumptive pneumonia and urinary tract infection. We'll culture so far is showing gram-negative bacilli. Labs today were reviewed, WBC count is 20.2 hemoglobin is 7.2. Basic metabolic profile is unremarkable except for BUN of 79 creatinine of 1.49. Chest x-ray showed multifocal infiltrates bilaterally. Reevaluated today on 02/26/2020, patient remains in the ICU, she was weaned and extubated yesterday. She is now on room air with O2 saturation 96%, IV fluid is at KVO, patient is in sinus rhythm, she is hemodynamically stable, urine cultures are positive for gram-negative bacilli, final identification is pending. Patient did receive 1 unit of blood since she was admitted to the hospital. No active bleeding is noted. Patient was extubated yesterday, and she seems to have tolerated the extubation quite well. My plan is to transfer the patient today to a regular medical floor. Continues to have leukocytosis with WBC count of 19.7. Renal functioning remains borderline, creatinine is 1.61. On 02/27/2020 patient seen in follow-up on medical floor, patient was transferred out of intensive care unit yesterday, on today's exam she is quite encephalopathic, she opens eyes to vigorous stimulation however she is not verba lly responding, her pulse ox was 95% on room air, however she is tachypneic, and breathing very shallowly, vital signs have been stable, she's been afebrile. Today's chest x-ray has been reviewed showing worsening bilateral multifocal edema and/or infiltrates. Today's labs showed an increasing white count up to 21.8, from previous 19.7 on yesterday's labs, hemoglobin is 9.3, sodium is 150, potassium is 3.7, chloride is 112, anion gap has increased To 14.1, B1 is 90 creatinine is 2.0, renal function has worsened, patient is being nourished via her PEG tube, and is currently receiving Nepro tube feedings at 35, however she is only receiving 30 mL of free water through the PEG tube every 4 hours. She has not been able to take anything by mouth in view of current dysphagia and aspiration. Patient will be placed on BiPAP support. She is already on antibiotics for pseudomonal urinary tract infection. The patient is seen today 07/28/2020 follow-up on the regular medical floor. She continues to have issues with waxing and waning mentation. She remains on BiPAP 12/428% FiO2. Blood gases were drawn and a pO2 of 111, CO2 38 and a pH of 7.43. No evidence of hypercapnia or hypoxemia and sodium is improved to 141. Creatinine 2.04. White count 15.2. Hemoglobin 8.0. She is status post 1 unit of packed red blood cells this admission. She remains on DuoNeb inhalations, Pulmicort inhalations, antibiotics in the form of meropenem. Urine culture was positive for pseudomonas aeruginosa. The patient is seen today 02/29/2020 in follow-up on the regular medical floor. She does open her eyes to verbal stimuli. She is following some simple commands today. Computed tomography scan of the brain revealed no acute intracranial abnormalities. She is remaining on BiPAP 12 over 4 and 28% FiO2. O2 saturations up to 100%. Blood glucose 118. Continued on bronchodilators and meropenem. The patient is seen today 03/03/2020 follow-up on the regular medical floor. She is currently resting fairly comfortably in bed. She is on BiPAP, 12 over 4 and 28% FiO2. O2 saturations remaining in the 90s. Arousable. Status post 1 unit of packed red blood cells this admission. Current hemoglobin 8.9. Sodium 132. Potassium 4.3. Bicarb 18. BUN 107. Creatinine 3.00. Remains on b ronchodilators, antibiotics in the form of meropenem. She's been initiated on a Lasix drip at 10 mg per hour. Minimal urine output. Chest x-ray continues to show multifocal acute infiltrates left greater than right, no significant change compared to previous. The patient is seen today 03/05/2020 follow-up on the regular medical floor. She is currently resting comfortably in bed. Maintaining O2 saturations up to 100% on 3 L/m per nasal cannula. She's afebrile. Hemodynamically stable. Sod ium 129. Potassium 3.8. BUN 103. Creatinine 3.13. Currently on 0.5% normal saline at 50 MLS per hour. Lasix drip has been discontinued. This x-ray continues to reveal left greater than right multifocal acute infiltrates on background mild cardiomegaly and low lung volumes. Mild interstitial edema and small tiny bilateral pleural effusions. Abdominal ultrasound reveals chronic medical renal disease. No hydronephrosis. Underlying cirrhosis and portal venous hypertension suspected. Mild ascites. Splenomegaly. She remains on meropenem, bronchodilators. The patient is seen today 03/06/2020 in follow-up on the regular medical floor. She is currently laying in bed. Awake and alert in no acute distress. Maintaining O2 saturations in the 90s on 4 L/m per nasal cannula. 2 feedings co ntinue. She's had very minimal urine output. Nephrology is following. To be given albumin today in addition to Lasix. Sodium 127. Potassium 4.8. BUN 126. Creatinine 3.48. Glucose 1:30. She remains on bronchodilators, meropenem, heparin for DVT prophylaxis. Objective - Vital Signs Vital signs: Vital Signs Temp 98.3 F 03/06/20 08:00 Pulse 93 03/06/20 10:58 Resp 18 03/06/20 08:00 BP 117/79 03/06/20 08:00 Pulse Ox 99 03/06/20 08:00 Intake & Output 03/05/20 03/06/20 03/06/20 18:59 06:59 18:59 Intake Total 710 240 Output Total 5 52 2 Balance 705 188 -2 Intake: IV 500 Sodium Chloride 0.45% 1, 500 000 ml @ 50 mls/hr IV . Q20H [facility] Rx#:[id number] Oral 0 Tube Feeding 210 240 Output: Urine 5 50 Stool 2 2 Other: Voiding Method Indwelling Catheter Indwelling Catheter Indwelling Catheter - Exam GENERAL EXAM: Awake, alert, 75-year-old female patient, on 5 L/m per nasal cannula, currently comfortable in no apparent distress. HEAD: Normocephalic/atraumatic. EYES: Normal reaction of pupils, equal size. Conjunctiva pink, sclera white. NOSE: Clear with pink turbinates. THROAT: No erythema or exudates. NECK: No masses, no JVD, no thyroid enlargement, no adenopathy. CHEST: No chest wall deformity. Symmetrical expansion. LUNGS: Equal air entry with crackles in the bilateral posterior bases, diminished breath sounds, CVS: Regular rate and rhythm, normal S1 and S2, no gallops, no murmurs, no rubs ABDOMEN: Soft, nontender. No hepatosplenomegaly, normal bowel sounds, no guarding or rigidity. EXTREMITIES: No clubbing, 2+ edema, no cyanosis, 2+ pulses and upper and lower extremities. MUSCULOSKELETAL: Muscle strength and tone normal. SPINE: No scoliosis or deformity SKIN: No rashes or significant lower extremity edema CENTRAL NERVOUS SYSTEM: No focal deficits, tone is normal in all 4 extremities. - Labs CBC & Chem 7: 03/04/20 10:57 03/05/20 11:26 Labs: Abnormal Lab Results - Last 24 Hours (Table) 03/05/20 03/06/20 03/06/20 Range/Units 17:16 04:20 06:01 POC Glucose (mg/dL) 129 H 125 H 178 H (75-99) mg/dL 03/06/20 Range/Units 12:04 POC Glucose (mg/dL) 170 H (75-99) mg/dL Assessment and Plan Assessment: 1 Acute hypoxic respiratory failure secondary to debility of healthcare acquired pneumonia, recent required intubation and placement on mechanical ventilator, was successfully weaned and extubated on 02/25/2020, transfer out of intensive care unit on 02/26/2020. Currently on 4 L/m per nasal cannula with O2 saturation at 99 %. 2 Altered mental status of unclear etiology, computed tomography scan of the brain revealed no acute intracranial abnormalities, most likely toxic metabolic encephalopathy 3 Acute urinary tract infection with urine cultures positive for pseudomonas aeruginosa, currently on meropenem 4 Acute kidney injury, worsening, current creatinine 3.48 6 Hyperkalemia related to free water deficit 7 Type 2 diabetes mellitus 8 Recent history of hospitalization related to COVID 19 related pneumonia, and GI bleeding 9 History of dysphagia requiring PEG tube placement 10 Dyslipidemia 11 History of chronic diastolic congestive heart failure 12 History of chronic GI blood loss and positive Hemoccult stools, exact etiology is not clear, to be investigated by gastroenterology 13 Chronic anemia possibly related to chronic renal failure, current hemoglobin 7.6 14 Generalized edema secondary to hypoalbuminemia 15 Severe sepsis, UTI secondary to pseudomonas aeruginosa. 16 Poor overall functional performance based on the above-mentioned multiple comorbidities Plan: The patient was seen and evaluated by Dr. Leon Chest x-ray and labs reviewed To receive albumin and Lasix per nephrology Considering renal replacement therapy Her mentation continues to wax and wane Prognosis remains guarded and poor We will continue to follow and make further recommendations based on her clinical status I, the cosigning physician, performed a history & physical examination of the patient. Lungs sounds with faint crackles in the posterior bases. Maintaining good O2 saturations in the 90s on 4 L/m per nasal cannula. I discussed the assessment and plan of care with my nurse practitioner, Candi Horton. I attest to the above note as dictated by her.
[2020-03-06] MEDS ORDERED: FUROSEMIDE 10 MG/ML 10 ML VIAL IV ONE (14:00)
--- NOTE | 2020-03-06 17:19 | PN ---
PROGRESS NOTE DATE OF SERVICE: 03/06/2020 REASON FOR FOLLOWUP: Pseudomonas urinary tract infection and pneumonia. INTERVAL HISTORY: The patient is currently afebrile. She has been slightly more awake and alert. She is currently off the BiPAP. Unable to provide any history. No vomiting or diarrhea or any other changes reported by nursing staff. PHYSICAL EXAMINATION: Blood pressure 117/77 with pulse of 89, temperature 98.3. She is 100% on 5 L nasal cannula. General description is an elderly female lying in bed in no distress. Respiratory system: Unlabored breathing, some coarse breath sounds bilaterally. No wheeze. Heart S1, S2. Regular rate and rhythm. Abdomen soft, no tenderness. LABS: BUN of 126, creatinine 3.48. DIAGNOSTIC IMPRESSION AND PLAN: Patient with Pseudomonas aeruginosa urinary tract infection, concern for possible pneumonia. Patient is covered with meropenem. Overall prognosis remains to be guarded. Hospice may be a better option in view of worsening renal failure and continue supportive care. MMODL / IJN: [id number] /
[2020-03-06 17:43] LABS: Glucose,Whole Blood 145 mg/dL (75-99)
[2020-03-06 23:20] LABS: Glucose,Whole Blood 131 mg/dL (75-99)
[2020-03-06] MEDS: ACETAMINOPHEN ORAL SUSP (PEDS) 3,840 MG/120 ML BOTTLE PO PRN (23:28)
[2020-03-06] MEDS: INSULIN DETEMIR (LEVEMIR) 100 UNIT/ML SYR SQ SCH (23:37)
[2020-03-07] MEDS: INSULIN ASPART (NovoLOG) 100 UNIT/ML VIAL SQ SCH ×6 (05:49→18:44)
[2020-03-07 05:50] LABS: Glucose,Whole Blood 106 mg/dL (75-99)
[2020-03-07] MEDS: BUDESONIDE 0.5 MG/2 ML NEBU INHALATION SCH ×2 (08:20→19:13)
[2020-03-07] MEDS: IPRATROPIUM-ALBUTEROL 3 ML NEB INHALATION SCH ×4 (08:20→19:13)
[2020-03-07] MEDS: HEPARIN SODIUM,PORCINE 5,000 UNIT/ML 1 ML VIAL SQ SCH ×2 (09:00→20:26)
[2020-03-07] MEDS: ASCORBIC ACID 500 MG TAB PO SCH ×2 (09:02→20:26)
[2020-03-07] MEDS: FOLIC ACID 1 MG TAB PO SCH (09:02)
[2020-03-07] MEDS: CHOLECALCIFEROL 1,000 UNIT TAB PO SCH (09:02)
[2020-03-07] MEDS: MULTIVITAMINS, THERA 1 EACH TAB PO SCH (09:02)
[2020-03-07] MEDS: SODIUM BICARBONATE TAB 650 MG TAB PO SCH ×2 (09:02→20:26)
[2020-03-07] MEDS: METOPROLOL TARTRATE 50 MG TAB PO SCH ×2 (09:03→17:40)
[2020-03-07] MEDS: MEROPENEM 1 GM in SODIUM CHLORIDE 0.9% 100 ML IVPB SCH (09:27)
[2020-03-07 09:47] LABS: ALT <8 U/L (8-44); AST 16 U/L (13-35); African American GFR (CKD) 10.8 (60.0-200.0); Albumin/Globulin Ratio 2.64 (1.60-3.17); Alkaline Phosphatase 51 U/L (41-126); BUN/Creat Ratio 32.79 Ratio (12.00-20.00); Calcium 8.7 mg/dL (8.7-10.3); Carbon Dioxide 18.8 mmol/L (21.6-31.8); Chloride 99 mmol/L (96-109); Globulin 1.1 g/dL (1.6-3.3); Glucose 89 mg/dL (70-110); Magnesium 1.9 mg/dL (1.5-2.4); Non-African American GFR(CKD) 9.3 (60.0-200.0); Potassium 4.3 mmol/L (3.5-5.5); Sodium 132 mmol/L (135-145); Total Bilirubin 0.2 mg/dL (0.2-1.2)
--- NOTE | 2020-03-07 10:33 | P.PN ---
Subjective Patient is seen in follow-up for acute kidney injury on chronic kidney disease. Patient has chronic kidney disease stage III with baseline creatinine near 1.5. Remains oliguric despite albumin and IV Lasix. Maintained on tube feeds. Quite edematous. Currently on BiPAP. Vital signs are stable. General: The patient appeared well nourished and normally developed. HEENT: Head exam is unremarkable. Neck is without jugular venous distension. LUNGS: Breath sounds decreased. HEART: Rate and Rhythm are regular. ABDOMEN: Soft, nontender. EXTREMITITES: 2+ edema. Objective - Vital Signs Vital signs: Vital Signs Temp 97.7 F 03/07/20 08:00 Pulse 84 03/07/20 08:39 Resp 24 03/07/20 08:00 BP 101/68 03/07/20 08:00 Pulse Ox 100 03/07/20 08:00 Intake & Output 03/06/20 03/07/20 03/07/20 18:59 06:59 18:59 Intake Total 350 Output Total 2 77 Balance -2 273 Weight 115 kg Intake: IV 30 Sodium Chloride 0.9% 1, 30 000 ml @ 20 mls/hr IV . Q24H ANDREA Rx#:[id number] Intake, IV Titration 200 Amount Albumin Human 25% 50 ml 50 In Empty Bag 1 bag @ 50 mls/hr IVPB Q1H ANDREA Rx#: [id number] Albumin Human 25% 50 ml 50 In Empty Bag 1 bag @ 50 mls/hr IVPB Q1H ANDREA Rx#: [id number] Meropenem 1 gm In Sodium 100 Chloride 0.9% 100 ml @ 33 .3 mls/hr IVPB Q12HR ANDREA Rx#:[id number] Oral 0 Tube Feeding 120 Output: Urine 75 Uretheral (Pablo) 75 Stool 2 2 Other: Voiding Method Indwelling Catheter Indwelling Catheter Indwelling Catheter - Labs CBC & Chem 7: 03/04/20 10:57 03/07/20 05:12 Labs: Abnormal Lab Results - Last 24 Hours (Table) 03/06/20 03/06/20 03/06/20 Range/Units 12:04 13:08 17:40 Sodium 127 L (137-145) mmol/L Carbon Dioxide 16 L (22-30) mmol/L Anion Gap (4.00-12.00) mmol/L BUN 126 H* (7-17) mg/dL Creatinine 3.48 H (0.52-1.04) mg/dL Est GFR (CKD-EPI)AfAm (60.0-200.0) Est GFR (CKD-EPI)NonAf (60.0-200.0) BUN/Creatinine Ratio (12.00-20.00) Ratio Glucose 130 H (74-99) mg/dL POC Glucose (mg/dL) 170 H 145 H (75-99) mg/dL Phosphorus 6.4 H (2.5-4.5) mg/dL ALT (8-44) U/L Total Protein 4.1 L (6.3-8.2) g/dL Albumin 2.1 L (3.5-5.0) g/dL Globulin (1.6-3.3) g/dL 03/06/20 03/07/20 03/07/20 Range/Units 23:04 05:12 05:46 Sodium 132 L (137-145) mmol/L Carbon Dioxide 18.8 L (22-30) mmol/L Anion Gap 14.20 H (4.00-12.00) mmol/L BUN 141.0 H* (7-17) mg/dL Creatinine 4.3 H (0.52-1.04) mg/dL Est GFR (CKD-EPI)AfAm 10.8 L (60.0-200.0) Est GFR (CKD-EPI)NonAf 9.3 L (60.0-200.0) BUN/Creatinine Ratio 32.79 H (12.00-20.00) Ratio Glucose (74-99) mg/dL POC Glucose (mg/dL) 131 H 106 H (75-99) mg/dL Phosphorus (2.5-4.5) mg/dL ALT <8 L (8-44) U/L Total Protein 4.0 L (6.3-8.2) g/dL Albumin 2.90 L (3.5-5.0) g/dL Globulin 1.1 L (1.6-3.3) g/dL Assessment and Plan Plan: Assessment: 1. Chronic kidney disease stage IIIB secondary to nephrosclerosis with baseline creatinine near 1.5. No hydronephrosis noted on kidney ultrasound done in January 2020. Left kidney wasn't visualized. Right kidney was small in size. 2. Hypervolemic hyponatremia. 3. Anemia of chronic kidney disease. No active bleeding noted. She does have history of GI bleed. Status post blood transfusion this admission. On Aranesp. 4. Generalized edema partially due to hypoalbuminemia causing third spacing. 5. Diabetes mellitus. 6. Acute kidney injury secondary to ATN secondary to infection. Also component of cardiorenal. No evidence of hydronephrosis noted on kidney ultrasound. Renal function worsening. Creatinine 4.3 today. Not on steroids. Check cbc today. 7. UTI. Urine culture positive for Pseudomonas maintained on antibiotics. 8. Metabolic acidosis secondary to acute kidney injury. Maintained on oral bicarbonate. Better. Plan: Maintain tube feeding. Status post IV Lasix and IV albumin March 06. Avoid nephrotoxins. Continue to monitor renal function and urine output. Check CBC today. With worsening renal failure, volume overload and oliguria, initiated renal replacement therapy. Consult vascular surgery for dialysis catheter placement. Check chest x-ray as well.
--- NOTE | 2020-03-07 10:38 | XR ---
EXAMINATION TYPE: XR chest 1V DATE OF EXAM: 03/07/2020 COMPARISON: Chest x-ray 03/05/2020 HISTORY: Wheezing TECHNIQUE: Single frontal view of the chest is obtained. FINDINGS: Patchy densities present in the bilateral lungs, progression in the right lung with bandli ke areas of probable atelectatic change, there may be some associated groundglass opacity. Cardiac me diastinal silhouette is stable. There is no evident pneumothorax or sizable effusion. Technique somew hat apical lordotic, lung volumes are low. Patient is rotated. There is arthropathy in the shoulders. IMPRESSION: Possible atelectatic changes, scarring, correlate to exclude pneumonia. Follow-up sugges elbert. Expiratory rotated exam.
[2020-03-07 11:04] LABS: Anisocytosis Slight; HCT 20.1 % (34.0-46.0); Hypochromasia Slight; MCH 29.5 pg (25.0-35.0); MCHC 32.6 g/dL (31.0-37.0); MCV 90.6 fL (80.0-100.0); Mean Platelet Volume 8.5; Platelet Count 236 k/uL (150-450); RBC 2.21 m/uL (3.80-5.40); RDW 16.2 % (11.5-15.5); WBC 15.4 k/uL (3.8-10.6)
[2020-03-07 11:22] LABS: HGB 6.5 gm/dL (11.4-16.0)
[2020-03-07 11:51] LABS: Glucose,Whole Blood 115 mg/dL (75-99)
--- NOTE | 2020-03-07 12:44 | P.GSHP ---
History of Present Illness 75-year-old white female patient has history of acute kidney injury and patient also has a hemoglobin is low patient is on BiPAP shortness of breath I was consulted for urgent placement of dialysis catheter on examination patient is on BiPAP and also patient has a gastric tube feeding Neck is supple no bruit appreciated Chest patient has decreased breath sounds bilateral with BiPAP Abdomen nontender Vascular femorals are not palpable Plan is placement of dialysis catheter risk and complication discussed thank you Past Medical History Past Medical History: Hyperlipidemia, Hypertension, Renal Disease Additional Past Medical History / Comment(s): Covid, Anemia ; Chronic kidney disease; ARDS History of Any Multi-Drug Resistant Organisms: None Reported Past Surgical History: Orthopedic Surgery Additional Past Surgical History / Comment(s): Peg tube Past Psychological History: No Psychological Hx Reported Smoking Status: Never smoker Past Alcohol Use History: None Reported Past Drug Use History: None Reported - Past Family History Father Family Medical History: Pulmonary Embolus Additional Family Medical History / Comment(s): Mother History Unknown: Yes Additional Family Medical History / Comment(s): " from old age" age 93 Daughter(s) Family Medical History: Hypertension Medications and Allergies Home Medications Medication Instructions Recorded Confirmed Type Albuterol Sulfate [Proventil Hfa] 1 puff INHALATION RT-Q6H PRN 01/05/20 02/24/20 History Ascorbic Acid [Vitamin C] 500 mg PO BID tab 01/29/20 02/24/20 Rx Cholecalciferol [Vitamin D3 (25 5,000 unit PO DAILY tab 01/29/20 02/24/20 Rx Mcg = 1000 Iu)] Insulin Detemir (Levemir) [Levemir] 10 unit SQ HS syr 01/29/20 02/24/20 Rx Zinc Sulfate [Orazinc] 220 mg PO DAILY cap 01/29/20 02/24/20 Rx Acetaminophen Tab [Tylenol] 650 mg PO Q6HR PRN 02/06/20 02/24/20 History Glucerna 1.2 Oren 240 ml PO QID@03,09,15,21 02/06/20 02/24/20 History Heparin Sodium,Porcine [Heparin 5,000 unit SQ BID@0800,2000 02/06/20 02/24/20 History Sodium] Loperamide [Imodium] 2 - 4 mg PO Q3H PRN 02/06/20 02/24/20 History Metoprolol Tartrate [Lopressor] 50 mg PO BID@0800,1600 02/06/20 02/24/20 History Folic Acid 1 mg PO DAILY@1200 tab 02/19/20 02/24/20 Rx Furosemide [Lasix] 40 mg PO BID #60 tablet 02/19/20 02/24/20 Rx Thiamine [Vitamin B-1] 100 mg PO DAILY@1200 tab 02/19/20 02/24/20 Rx INSULIN ASPART (NovoLOG) [NovoLOG 4 unit SQ ACHS 02/24/20 02/24/20 History (formulary)] Lansoprazole [Prevacid] 30 mg PO DAILY 02/24/20 02/24/20 History Multivitamins, Thera [Multivitamin 1 tab PO DAILY 02/24/20 02/24/20 History (formulary)] Ondansetron Odt [Zofran Odt] 4 mg PO Q4H PRN 02/24/20 02/24/20 History Allergies Allergy/AdvReac Type Severity Reaction Status Date / Time No Known Allergies Allergy Verified 02/24/20 08:25 Surgical - Exam Vital Signs Pulse Resp 90 29 H 02/24/20 01:11 02/24/20 01:11 Results - Labs 03/07/20 10:41 03/07/20 05:12 Abnormal Lab Results - Last 24 Hours (Table) 03/06/20 03/06/20 03/06/20 Range/Units 13:08 17:40 23:04 WBC (3.8-10.6) k/uL RBC (3.80-5.40) m/uL Hgb (11.4-16.0) gm/dL Hct (34.0-46.0) % RDW (11.5-15.5) % Sodium 127 L (137-145) mmol/L Carbon Dioxide 16 L (22-30) mmol/L Anion Gap (4.00-12.00) mmol/L BUN 126 H* (7-17) mg/dL Creatinine 3.48 H (0.52-1.04) mg/dL Est GFR (CKD-EPI)AfAm (60.0-200.0) Est GFR (CKD-EPI)NonAf (60.0-200.0) BUN/Creatinine Ratio (12.00-20.00) Ratio Glucose 130 H (74-99) mg/dL POC Glucose (mg/dL) 145 H 131 H (75-99) mg/dL Phosphorus 6.4 H (2.5-4.5) mg/dL ALT (8-44) U/L Total Protein 4.1 L (6.3-8.2) g/dL Albumin 2.1 L (3.5-5.0) g/dL Globulin (1.6-3.3) g/dL 03/07/20 03/07/20 03/07/20 Range/Units 05:12 05:46 10:41 WBC 15.4 H (3.8-10.6) k/uL RBC 2.21 L (3.80-5.40) m/uL Hgb 6.5 L* (11.4-16.0) gm/dL Hct 20.1 L (34.0-46.0) % RDW 16.2 H (11.5-15.5) % Sodium 132 L (137-145) mmol/L Carbon Dioxide 18.8 L (22-30) mmol/L Anion Gap 14.20 H (4.00-12.00) mmol/L BUN 141.0 H* (7-17) mg/dL Creatinine 4.3 H (0.52-1.04) mg/dL Est GFR (CKD-EPI)AfAm 10.8 L (60.0-200.0) Est GFR (CKD-EPI)NonAf 9.3 L (60.0-200.0) BUN/Creatinine Ratio 32.79 H (12.00-20.00) Ratio Glucose (74-99) mg/dL POC Glucose (mg/dL) 106 H (75-99) mg/dL Phosphorus (2.5-4.5) mg/dL ALT <8 L (8-44) U/L Total Protein 4.0 L (6.3-8.2) g/dL Albumin 2.90 L (3.5-5.0) g/dL Globulin 1.1 L (1.6-3.3) g/dL 03/07/20 Range/Units 11:48 WBC (3.8-10.6) k/uL RBC (3.80-5.40) m/uL Hgb (11.4-16.0) gm/dL Hct (34.0-46.0) % RDW (11.5-15.5) % Sodium (137-145) mmol/L Carbon Dioxide (22-30) mmol/L Anion Gap (4.00-12.00) mmol/L BUN (7-17) mg/dL Creatinine (0.52-1.04) mg/dL Est GFR (CKD-EPI)AfAm (60.0-200.0) Est GFR (CKD-EPI)NonAf (60.0-200.0) BUN/Creatinine Ratio (12.00-20.00) Ratio Glucose (74-99) mg/dL POC Glucose (mg/dL) 115 H (75-99) mg/dL Phosphorus (2.5-4.5) mg/dL ALT (8-44) U/L Total Protein (6.3-8.2) g/dL Albumin (3.5-5.0) g/dL Globulin (1.6-3.3) g/dL Diabetes panel 03/06/20 03/07/20 Range/Units 13:08 05:12 Sodium 127 L 132 L (137-145) mmol/L Potassium 4.8 4.3 (3.5-5.1) mmol/L Chloride 99 99 (98-107) mmol/L Carbon Dioxide 16 L 18.8 L (22-30) mmol/L BUN 126 H* 141.0 H* (7-17) mg/dL Creatinine 3.48 H 4.3 H (0.52-1.04) mg/dL Glucose 130 H 89 (74-99) mg/dL Calcium 8.5 8.7 (8.4-10.2) mg/dL AST 26 16 (14-36) U/L ALT 11 <8 L (4-34) U/L Alkaline Phosphatase 48 51 (38-126) U/L Total Protein 4.1 L 4.0 L (6.3-8.2) g/dL Albumin 2.1 L 2.90 L (3.5-5.0) g/dL Calcium panel 03/06/20 03/07/20 Range/Units 13:08 05:12 Calcium 8.5 8.7 (8.4-10.2) mg/dL Phosphorus 6.4 H (2.5-4.5) mg/dL Albumin 2.1 L 2.90 L (3.5-5.0) g/dL Pituitary panel 03/06/20 03/07/20 Range/Units 13:08 05:12 Sodium 127 L 132 L (137-145) mmol/L Potassium 4.8 4.3 (3.5-5.1) mmol/L Chloride 99 99 (98-107) mmol/L Carbon Dioxide 16 L 18.8 L (22-30) mmol/L BUN 126 H* 141.0 H* (7-17) mg/dL Creatinine 3.48 H 4.3 H (0.52-1.04) mg/dL Glucose 130 H 89 (74-99) mg/dL Calcium 8.5 8.7 (8.4-10.2) mg/dL Adrenal panel 03/06/20 03/07/20 Range/Units 13:08 05:12 Sodium 127 L 132 L (137-145) mmol/L Potassium 4.8 4.3 (3.5-5.1) mmol/L Chloride 99 99 (98-107) mmol/L Carbon Dioxide 16 L 18.8 L (22-30) mmol/L BUN 126 H* 141.0 H* (7-17) mg/dL Creatinine 3.48 H 4.3 H (0.52-1.04) mg/dL Glucose 130 H 89 (74-99) mg/dL Calcium 8.5 8.7 (8.4-10.2) mg/dL Total Bilirubin 0.6 0.2 (0.2-1.3) mg/dL AST 26 16 (14-36) U/L ALT 11 <8 L (4-34) U/L Alkaline Phosphatase 48 51 (38-126) U/L Total Protein 4.1 L 4.0 L (6.3-8.2) g/dL Albumin 2.1 L 2.90 L (3.5-5.0) g/dL
[2020-03-07] MEDS ORDERED: MORPHINE SULFATE 2 MG/ML SYRINGE IVP STA (14:52)
--- NOTE | 2020-03-07 15:09 | P.PN ---
Subjective Progress Note Date: 03/07/20 Principal diagnosis: Acute hypoxic respiratory failure secondary to acute healthcare acquired pneumonia This is a 75-year-old female, familiar to my service, patient was recently at [facility], and she was initially admitted on 01/05/20. She was eventually discharged to a rehab facility on 02/19/20. Patient had many medical problems during her last admission included acute GI bleeding, acute on chronic diastolic congestive heart failure, acute covid 19 pneumonitis, H influenza pneumonia, and recurrent urinary tract infection. chronic kidney disease, hypertension, hypoxic respiratory failure secondary to pneumonia, obesity with BMI of 35.9, patient required PEG tube placement while she was in the hospital. She was seen by many consultants during her last hospital admission. Patient was eventually discharged to rehab facility on 02/19/20. However the patient was in the rehab facility for less than one day, apparently she developed worsening mental status, worsening shortness of breath. Hence the patient was transferred to [facility] in [facility], admitted for few days, and she continued to worsen, there was a concern about ongoing GI blood losses and hemoglobin. There is also a concern about her worsening pulmonary status, patient was transferred to [facility] and this consult was initiated. Apparently the day of her transferred to [facility], patient was intubated and required mechanical ventilation. Upon my evaluation the patient today in the ICU, patient is on assist control rate of 14, tidal volume is 480, FiO2 45% and PEEP of 5. ABG showed a pO2 of 130 pCO2 of 33 pH of 7.47. After reviewing the ABG, her ventilator settings were changed to tolerate volume is 450 assist-control rate 18 and kept her on 45% FiO2. Chest x-ray showed minimal bilateral infiltrates. Urinalysis is consistent with pyuria and bacteriuria. Hemoglobin is noted to be 7.3. WBC count is 19.9. And BUN is 78 creatinine 1.47. Patient was empirically started on cefepime for presumptive urinary tract infection and pneumonia patient had previous pseudomonal urinary tract infection. Not much history could be obtained from the patient most of the information obtained so far is from the chart Patient was reevaluated today on 02/25/2020, remains in the ICU, intubated and mechanically ventilated. She is on assist control rate of 18 tidal volume 455- 45% PEEP of 5. ABG showed a pO2 of 166 pCO2 of 32 pH of 7.49. On propofol at 30 mcg/kg/m, IV fluid 0.9 normal saline at 65 mL per hour. Remains on enteral feeding. She is also on cefepime empirically for presumptive pneumonia and urinary tract infection. We'll culture so far is showing gram-negative bacilli. Labs today were reviewed, WBC count is 20.2 hemoglobin is 7.2. Basic metabolic profile is unremarkable except for BUN of 79 creatinine of 1.49. Chest x-ray showed multifocal infiltrates bilaterally. Reevaluated today on 02/26/2020, patient remains in the ICU, she was weaned and extubated yesterday. She is now on room air with O2 saturation 96%, IV fluid is at KVO, patient is in sinus rhythm, she is hemodynamically stable, urine cultures are positive for gram-negative bacilli, final identification is pending. Patient did receive 1 unit of blood since she was admitted to the hospital. No active bleeding is noted. Patient was extubated yesterday, and she seems to have tolerated the extubation quite well. My plan is to transfer the patient today to a regular medical floor. Continues to have leukocytosis with WBC count of 19.7. Renal functioning remains borderline, creatinine is 1.61. On 02/27/2020 patient seen in follow-up on medical floor, patient was transferred out of intensive care unit yesterday, on today's exam she is quite encephalopathic, she opens eyes to vigorous stimulation however she is not verba lly responding, her pulse ox was 95% on room air, however she is tachypneic, and breathing very shallowly, vital signs have been stable, she's been afebrile. Today's chest x-ray has been reviewed showing worsening bilateral multifocal edema and/or infiltrates. Today's labs showed an increasing white count up to 21.8, from previous 19.7 on yesterday's labs, hemoglobin is 9.3, sodium is 150, potassium is 3.7, chloride is 112, anion gap has increased To 14.1, B1 is 90 creatinine is 2.0, renal function has worsened, patient is being nourished via her PEG tube, and is currently receiving Nepro tube feedings at 35, however she is only receiving 30 mL of free water through the PEG tube every 4 hours. She has not been able to take anything by mouth in view of current dysphagia and aspiration. Patient will be placed on BiPAP support. She is already on antibiotics for pseudomonal urinary tract infection. The patient is seen today 07/28/2020 follow-up on the regular medical floor. She continues to have issues with waxing and waning mentation. She remains on BiPAP 12/428% FiO2. Blood gases were drawn and a pO2 of 111, CO2 38 and a pH of 7.43. No evidence of hypercapnia or hypoxemia and sodium is improved to 141. Creatinine 2.04. White count 15.2. Hemoglobin 8.0. She is status post 1 unit of packed red blood cells this admission. She remains on DuoNeb inhalations, Pulmicort inhalations, antibiotics in the form of meropenem. Urine culture was positive for pseudomonas aeruginosa. The patient is seen today 02/29/2020 in follow-up on the regular medical floor. She does open her eyes to verbal stimuli. She is following some simple commands today. Computed tomography scan of the brain revealed no acute intracranial abnormalities. She is remaining on BiPAP 12 over 4 and 28% FiO2. O2 saturations up to 100%. Blood glucose 118. Continued on bronchodilators and meropenem. The patient is seen today 03/03/2020 follow-up on the regular medical floor. She is currently resting fairly comfortably in bed. She is on BiPAP, 12 over 4 and 28% FiO2. O2 saturations remaining in the 90s. Arousable. Status post 1 unit of packed red blood cells this admission. Current hemoglobin 8.9. Sodium 132. Potassium 4.3. Bicarb 18. BUN 107. Creatinine 3.00. Remains on b ronchodilators, antibiotics in the form of meropenem. She's been initiated on a Lasix drip at 10 mg per hour. Minimal urine output. Chest x-ray continues to show multifocal acute infiltrates left greater than right, no significant change compared to previous. The patient is seen today 03/05/2020 follow-up on the regular medical floor. She is currently resting comfortably in bed. Maintaining O2 saturations up to 100% on 3 L/m per nasal cannula. She's afebrile. Hemodynamically stable. Sod ium 129. Potassium 3.8. BUN 103. Creatinine 3.13. Currently on 0.5% normal saline at 50 MLS per hour. Lasix drip has been discontinued. This x-ray continues to reveal left greater than right multifocal acute infiltrates on background mild cardiomegaly and low lung volumes. Mild interstitial edema and small tiny bilateral pleural effusions. Abdominal ultrasound reveals chronic medical renal disease. No hydronephrosis. Underlying cirrhosis and portal venous hypertension suspected. Mild ascites. Splenomegaly. She remains on meropenem, bronchodilators. The patient is seen today 03/06/2020 in follow-up on the regular medical floor. She is currently laying in bed. Awake and alert in no acute distress. Maintaining O2 saturations in the 90s on 4 L/m per nasal cannula. 2 feedings co ntinue. She's had very minimal urine output. Nephrology is following. To be given albumin today in addition to Lasix. Sodium 127. Potassium 4.8. BUN 126. Creatinine 3.48. Glucose 1:30. She remains on bronchodilators, meropenem, heparin for DVT prophylaxis. The patient is seen today 03/07/2020 follow-up on the regular medical floor. She is currently resting comfortably in bed. Awake and alert. On BiPAP 12 over 4 at 35% FiO2. O2 saturations up to 100%. Chest x-ray reveals patchy densities in the bilateral lungs with bandlike areas of atelectasis. She's afebrile. Hemodynamically stable. White count 15.4. Hemoglobin dropped to 6.5. Sodium 132. Potassium 4.3. Creatinine 4.3. 2 units of packed red blood cells have been ordered. She also stated have a dialysis catheter placed for renal replacement therapy. She remains on tube feedings via her PEG tube at 35 ML's which is called. Objective - Vital Signs Vital signs: Vital Signs Temp 98.9 F 03/07/20 14:42 Pulse 84 03/07/20 14:42 Resp 24 03/07/20 14:42 BP 102/55 03/07/20 14:42 Pulse Ox 100 03/07/20 14:42 Intake & Output 03/06/20 03/07/20 03/07/20 18:59 06:59 18:59 Intake Total 350 0 Output Total 2 77 Balance -2 273 0 Weight 115 kg Intake: IV 30 Sodium Chloride 0.9% 1, 30 000 ml @ 20 mls/hr IV . Q24H ANDREA Rx#:[id number] Intake, IV Titration 200 Amount Albumin Human 25% 50 ml 50 In Empty Bag 1 bag @ 50 mls/hr IVPB Q1H ANDREA Rx#: [id number] Albumin Human 25% 50 ml 50 In Empty Bag 1 bag @ 50 mls/hr IVPB Q1H ANDREA Rx#: [id number] Meropenem 1 gm In Sodium 100 Chloride 0.9% 100 ml @ 33 .3 mls/hr IVPB Q12HR ANDREA Rx#:[id number] Oral 0 Tube Feeding 120 Blood Product 0 Rc As-1 Unit 0 [id number] Output: Urine 75 Uretheral (Pablo) 75 Stool 2 2 Other: Voiding Method Indwelling Catheter Indwelling Catheter Indwelling Catheter # Bowel Movements 1 - Exam GENERAL EXAM: Awake, alert, 75-year-old female patient, on BiPAP 12 over 4 and 35% FiO2, currently comfortable in no apparent distress. HEAD: Normocephalic/atraumatic. EYES: Normal reaction of pupils, equal size. Conjunctiva pink, sclera white. NOSE: Clear with pink turbinates. THROAT: No erythema or exudates. NECK: No masses, no JVD, no thyroid enlargement, no adenopathy. CHEST: No chest wall deformity. Symmetrical expansion. LUNGS: Equal air entry with crackles in the bilateral posterior bases, diminis hed breath sounds, CVS: Regular rate and rhythm, normal S1 and S2, no gallops, no murmurs, no rubs ABDOMEN: Soft, nontender. No hepatosplenomegaly, normal bowel sounds, no guarding or rigidity. EXTREMITIES: No clubbing, 2+ edema, no cyanosis, 2+ pulses and upper and lower extremities. MUSCULOSKELETAL: Muscle strength and tone normal. SPINE: No scoliosis or deformity SKIN: No rashes or significant lower extremity edema CENTRAL NERVOUS SYSTEM: No focal deficits, tone is normal in all 4 extremities. - Labs CBC & Chem 7: 03/07/20 10:41 03/07/20 05:12 Labs: Abnormal Lab Results - Last 24 Hours (Table) 03/06/20 03/06/20 03/07/20 Range/Units 17:40 23:04 05:12 WBC (3.8-10.6) k/uL RBC (3.80-5.40) m/uL Hgb (11.4-16.0) gm/dL Hct (34.0-46.0) % RDW (11.5-15.5) % Sodium 132 L (135-145) mmol/L Carbon Dioxide 18.8 L (21.6-31.8) mmol/L Anion Gap 14.20 H (4.00-12.00) mmol/L BUN 141.0 H* (9.0-27.0) mg/dL Creatinine 4.3 H (0.6-1.5) mg/dL Est GFR (CKD-EPI)AfAm 10.8 L (60.0-200.0) Est GFR (CKD-EPI)NonAf 9.3 L (60.0-200.0) BUN/Creatinine Ratio 32.79 H (12.00-20.00) Ratio POC Glucose (mg/dL) 145 H 131 H (75-99) mg/dL ALT <8 L (8-44) U/L Total Protein 4.0 L (6.2-8.2) g/dL Albumin 2.90 L (3.80-4.90) g/dL Globulin 1.1 L (1.6-3.3) g/dL Crossmatch 03/07/20 03/07/20 03/07/20 Range/Units 05:46 10:41 10:41 WBC 15.4 H (3.8-10.6) k/uL RBC 2.21 L (3.80-5.40) m/uL Hgb 6.5 L* (11.4-16.0) gm/dL Hct 20.1 L (34.0-46.0) % RDW 16.2 H (11.5-15.5) % Sodium (135-145) mmol/L Carbon Dioxide (21.6-31.8) mmol/L Anion Gap (4.00-12.00) mmol/L BUN (9.0-27.0) mg/dL Creatinine (0.6-1.5) mg/dL Est GFR (CKD-EPI)AfAm (60.0-200.0) Est GFR (CKD-EPI)NonAf (60.0-200.0) BUN/Creatinine Ratio (12.00-20.00) Ratio POC Glucose (mg/dL) 106 H (75-99) mg/dL ALT (8-44) U/L Total Protein (6.2-8.2) g/dL Albumin (3.80-4.90) g/dL Globulin (1.6-3.3) g/dL Crossmatch See Detail 03/07/20 Range/Units 11:48 WBC (3.8-10.6) k/uL RBC (3.80-5.40) m/uL Hgb (11.4-16.0) gm/dL Hct (34.0-46.0) % RDW (11.5-15.5) % Sodium (135-145) mmol/L Carbon Dioxide (21.6-31.8) mmol/L Anion Gap (4.00-12.00) mmol/L BUN (9.0-27.0) mg/dL Creatinine (0.6-1.5) mg/dL Est GFR (CKD-EPI)AfAm (60.0-200.0) Est GFR (CKD-EPI)NonAf (60.0-200.0) BUN/Creatinine Ratio (12.00-20.00) Ratio POC Glucose (mg/dL) 115 H (75-99) mg/dL ALT (8-44) U/L Total Protein (6.2-8.2) g/dL Albumin (3.80-4.90) g/dL Globulin (1.6-3.3) g/dL Crossmatch Assessment and Plan Assessment: 1 Acute hypoxic respiratory failure secondary to debility of healthcare acquired pneumonia, recent required intubation and placement on mechanical ventilator, was successfully weaned and extubated on 02/25/2020, transfer out of intensive care unit on 02/26/2020. Currently on BiPAP 12 over 4 and 35% FiO2 with O2 saturations up to 100%. 2 Altered mental status of unclear etiology, computed tomography scan of the brain revealed no acute intracranial abnormalities, most likely toxic metabolic encephalopathy 3 Acute urinary tract infection with urine cultures positive for pseudomonas aeruginosa, currently on meropenem 4 Acute kidney injury, worsening, current creatinine 4.3, plan is for catheter placement and renal replacement therapy 6 Hyperkalemia related to free water deficit 7 Type 2 diabetes mellitus 8 Recent history of hospitalization related to COVID 19 related pneumonia, and GI bleeding 9 History of dysphagia requiring PEG tube placement 10 Dyslipidemia 11 History of chronic diastolic congestive heart failure 12 History of chronic GI blood loss and positive Hemoccult stools, exact etiology is not clear, to be investigated by gastroenterology 13 Chronic anemia possibly related to chronic renal failure, current hemoglobin 7.6 14 Generalized edema secondary to hypoalbuminemia 15 Severe sepsis, UTI secondary to pseudomonas aeruginosa. 16 Poor overall functional performance based on the above-mentioned multiple comorbidities Plan: The patient was seen and evaluated by Dr. Leon Chest x-ray and labs reviewed Currently on BiPAP with O2 saturation up to 100% HD catheter placement today Renal replacement therapy Her mentation continues to wax and wane Prognosis remains guarded and poor We will continue to follow and make further recommendations based on her clinical status I, the cosigning physician, performed a history & physical examination of the patient. Lungs sounds with faint crackles in the posterior bases. Maintaining good O2 saturations in the 90s on BiPAP at 35% FiO2. I discussed the assessment and plan of care with my nurse practitioner, Candi Horton. I attest to the above note as dictated by her.
--- NOTE | 2020-03-07 15:39 | PCN ---
PROCEDURE NOTE PREOP DIAGNOSIS: Acute on chronic failure. POSTOP DIAGNOSIS: Acute on chronic renal failure. PROCEDURE PERFORMED: Ultrasound-guided 23 cm dialysis catheter placed right femoral approach. DESCRIPTION OF PROCEDURE: The patient was seen in her room. Right groin was prepped and drapes applied in a sterile manner. 1% lidocaine was infiltrated. Ultrasound-guided micropuncture introduced right common femoral vein. Micropuncture guidewire was passed and then we passed a regular guidewire. Then dilator was advanced. Then we passed a 30 cm dialysis catheter, flushed with heparin saline and hep-locked, secured with 3-0 nylon. Patient tolerated the procedure well. MMODL / IJN: [id number] /
[2020-03-07] MEDS: ZINC SULFATE 220 MG CAP PO SCH (17:40)
[2020-03-07 17:48] LABS: Glucose,Whole Blood 126 mg/dL (75-99)
[2020-03-07] MEDS ORDERED: FUROSEMIDE 10 MG/ML 4 ML VIAL IV ONE (19:00)
[2020-03-07] MEDS: THIAMINE 100 MG TAB PO SCH (21:27)
--- NOTE | 2020-03-07 22:31 | PN ---
PROGRESS NOTE DATE OF SERVICE: 03/07/2020 REASON FOR FOLLOWUP: Pseudomonas UTI and pneumonia. INTERVAL HISTORY: Patient is currently afebrile. The patient did have worsening kidney function. The patient did have a right groin dialysis access was undergoing dialysis at time of my evaluation. The patient was lethargic, unable to provide any history. No vomiting, diarrhea, or any other changes reported by the nursing staff. PHYSICAL EXAMINATION: Blood pressure 122/64 with a pulse of 80, temperature 98.2. General description is an elderly female lying in bed in no distress. Respiratory system: Unlabored breathing with decreased breath sounds in the bases. No wheeze. Heart S1, S2. Regular rate and rhythm. Abdomen soft. No tenderness. LABS: Hemoglobin 6.5, white count 15.4. BUN of 141, creatinine 4.3. DIAGNOSTIC IMPRESSION AND PLAN: Patient with elevated white count, multifactorial in this patient who did have urinary tract infection plus-minus pneumonia, now with worsening of her kidney functioning and being dialyzed. Overall prognosis remains to be poor. Covered with Meropenem. Continue supportive care. MMODL / IJN: [id number] /
--- NOTE | 2020-03-07 22:37 | P.PN ---
Subjective Progress Note Date: 03/06/20 Principal diagnosis: Acute hypoxic respiratory failure and acute healthcare acquired pneumonia patient is seen and evaluated in room with RN at bedside, patient was transferred out of intensive care unit yesterday; patient is quite encephalopathic and only opens eyes to vigorous stimulation however she is not verbally responding, her pulse ox was 95% on room air, however she is tachypneic, and breathing very shallowly, vital signs have been stable, she's been afebrile. chest x-ray has been reviewed showing worsening bilateral multifocal edema and/or infiltrates. Today's labs showed an increasing white count up to 21.8, from previous 19.7 on yesterday's labs, hemoglobin is 9.3, sodium is 150, potassium is 3.7, chloride is 112, anion gap has increased To 14.1, BUN is 90 creatinine is 2.0, renal function has worsened, patient is being nourished via her PEG tube, and is currently receiving Nepro tube feedings at 35, nephrology is following and have increased to 50 mL of free water through the PEG tube every 4 hours. She has not been able to take anything by mouth in view of current dysphagia and aspiration. Patient will be placed on BiPAP support. She is already on antibiotics for pseudomonal urinary tract infection. Called patient's daughter Char Morales at [phone] and give her a detailed account of patient's declining condition; daughter wants to continue with aggressive treatment that possible re-intubation if needed 02/28/2020 Patient is seen and follow-up on the regular medical floor. She continues to have issues with waxing and waning mentation. She remains on BiPAP 12/428% FiO2. Blood gases were drawn and a pO2 of 111, CO2 38 and a pH of 7.43. No evidence of hypercapnia or hypoxemia and sodium is improved to 141. Creatinine 2.04. White count 15.2. Hemoglobin 8.0. She is status post 1 unit of packed red blood cells this admission. She remains on DuoNeb inhalations, Pulmicort inhalations, antibiotics in the form of meropenem. Urine culture was positive for pseudomonas aeruginosa. Patient's oxygenation continues to wax and wane; ABGs done revealed pCO2 of 38; fuel quality tech service recommending CT of the head without contrast with neurology consult 02/29/2020 Patient is seen and evaluated in follow-up on the regular medical floor. She does open her eyes to verbal stimuli. She is following some simple commands today. Computed tomography scan of the brain revealed no acute intracranial abnormalities. Await further recommendations from neurology She is remaining on BiPAP 12 over 4 and 28% FiO2. O2 saturations up to 100%. Blood glucose 118. Continued on bronchodilators and meropenem. 03/01/2020 Patient is currently lying in the bed remains on BiPAP. Patient is drowsy and lethargic and encephalopathic. Was able to open her eyes with verbal stimuli. Blood pressure is stable. Laboratory data showed sodium 142 and percussion 4.5, BUN 104 and creatinine 2.9 Patient is being continued on antibiotics in the form of meropenem for pseudomonas urinary tract infection. Patient is being continued on breathing treatments and Pulmicort inhalation. Pulmonary, ID and nephrology is on board 03/02/2020 Patient is currently on BiPAP. Saturating at 90% on 2 L oxygen. Next and chest x-ray showed hypoventilatory changes and patchy peripheral interstitial infiltrates with slow improvement. WBC 15.1, hemoglobin 8.9 and BUN 108 and creatinine 3.2. Patient is afebrile. Patient is on meropenem and is on IV hydration with half normal saline.. Currently on PEG tube feeding. 03/03/2020 Patient is on BiPAP 12 x 4. Patient is able to open her eyes. Afebrile. Laboratory data showed sodium 132, potassium 4.3, BUN 107 and creatinine 3.0 Continue on PEG feeding and supportive care. Chest x-ray showed no significant change. Pulmonary and nephrology is on board. 03/04/2020 Patient remained on BiPAP support with FiO2 28%. Patient is awake and open her eyes. Breathing comfortably at this time. Denied any complaints of chest pain. Tolerating PEG tube feeding. Otherwise laboratory data showed BUN 111 and creatinine 3.12. Nephrology is on board. patient's daughter wants to continue on full CODE STATUS. Considering hemodialysis as per nephrology. Laboratory data showed WBC 15.1, hemoglobin 7.6 and sodium 129 and potassium 4.4 Pulmonary and nephrology is on board. 03/05/2020 Patient is currently resting in the bed comfortably. On oxygen with another cannula. Patient has been afebrile. No complaints of chest pain or worsening shortness of breath. Chest x-ray showed left greater than right multifocal acute infiltrates on the background mild cardiomegaly and low lung volumes redemonstrated. Perhaps new mild interstitial edema and small to tiny left greater than right pleural effusions assisting fluid component on the background of chronic changes. Ultrasound of the abdomen showed evidence of chronic medical renal disease. No hydronephrosis noted bilaterally. Underlying cirrhosis and portal hypertension suspected. Patient was given a dose of IV Lasix. IV Fluids on hold. Laboratory data showed BUN 103 and creatinine 3.13 and calcium 7.4, sodium 129 and potassium 3.8 Nephrology and pulmonary is on board. Patient remained on antibiotics in form of meropenem. 03/06/2020 Patient is currently lying in the bed awake alert but not oriented. Currently on oxygen at 4 L via nasal cannula. Saturating at 90%. Continued on tube feeding. Patient does have very minimal urine output with creatinine level 3.48 and BUN 126. Patient is being followed by nephrology. Laboratory data showed sodium level 126 and potassium 4.8. Continue bronchodilators and DVT prophylaxis. Also on meropenem for Pseudomonas urinary tract infection. Pulmonary is on board. Current medications reviewed. Current medications reviewed. Objective - Vital Signs Vital signs: Vital Signs Temp 97 F L 03/06/20 20:00 Pulse 97 03/06/20 20:00 Resp 16 03/06/20 20:00 BP 117/81 03/06/20 20:00 Pulse Ox 100 03/06/20 20:00 Intake & Output 03/06/20 03/06/20 03/07/20 06:59 18:59 06:59 Intake Total 240 Output Total 52 2 2 Balance 188 -2 -2 Intake: Oral 0 Tube Feeding 240 Output: Urine 50 Stool 2 2 2 Other: Voiding Method Indwelling Catheter Indwelling Catheter Indwelling Catheter - Exam GENERAL EXAM: Quite drowsy, 75-year-old white female, on nasal cannula. Awake alert. HEAD: Normocephalic/atraumatic. EYES: Normal reaction of pupils, equal size. Conjunctiva pink, sclera white. NOSE: Clear with pink turbinates. THROAT: No erythema or exudates. NECK: No masses, no JVD, no thyroid enlargement, no adenopathy. CHEST: No chest wall deformity. Symmetrical expansion. Bibasilar diminished air entry. LUNGS: Equal air entry with diminished breath sounds, CVS: Regular rate and rhythm, normal S1 and S2, no gallops, no murmurs, no rubs ABDOMEN: Soft, nontender. No hepatosplenomegaly, normal bowel sounds, no guarding or rigidity. EXTREMITIES: No clubbing, no edema, no cyanosis, 2+ pulses and upper and lower extremities. - Labs CBC & Chem 7: 03/07/20 10:41 03/07/20 05:12 Labs: Abnormal Lab Results - Last 24 Hours (Table) 03/06/20 03/06/20 03/06/20 Range/Units 04:20 06:01 12:04 Sodium (137-145) mmol/L Carbon Dioxide (22-30) mmol/L BUN (7-17) mg/dL Creatinine (0.52-1.04) mg/dL Glucose (74-99) mg/dL POC Glucose (mg/dL) 125 H 178 H 170 H (75-99) mg/dL Phosphorus (2.5-4.5) mg/dL Total Protein (6.3-8.2) g/dL Albumin (3.5-5.0) g/dL 03/06/20 03/06/20 Range/Units 13:08 17:40 Sodium 127 L (137-145) mmol/L Carbon Dioxide 16 L (22-30) mmol/L BUN 126 H* (7-17) mg/dL Creatinine 3.48 H (0.52-1.04) mg/dL Glucose 130 H (74-99) mg/dL POC Glucose (mg/dL) 145 H (75-99) mg/dL Phosphorus 6.4 H (2.5-4.5) mg/dL Total Protein 4.1 L (6.3-8.2) g/dL Albumin 2.1 L (3.5-5.0) g/dL Assessment and Plan Assessment: -Acute hypoxic respiratory failure/ secondary to sepsis and encephalopathy. Patient was extubated on 02/25/2020. Currently on BiPAP. Transition to nasal cannula. -Toxic encephalopathy: Secondary to sepsis most probably from urinary tract infection Palbo catheter will be changed patient has Pseudomonas in the urine patient is presently on cefepime although patient hasn't remitted susceptibility to cefepime as well as Zosyn. We will repeat urine analysis since the Pablo catheter was replaced patient may or may not need antibiotics we'll make the decision depending on urinalysis results. Infectious disease was consulted. -Pseudomonal UTI -Sepsis secondary to UTI -Acute on Chronic kidney disease stage IIIB: Nephrology is following the patient IV fluids as per nephrology. Patient blood pressure is low normal at this time. Patient is also receiving albumin,epogen as per nephrology -Type 2 diabetes mellitus. -Recent Covid 19 infection. -Hyperlipidemia -Dysphagia for which patient has a PEG tube -DVT prophylaxis: Subcutaneous heparin Time with Patient: Greater than 30
--- NOTE | 2020-03-07 22:44 | P.PN ---
Subjective Progress Note Date: 03/07/20 Principal diagnosis: Acute hypoxic respiratory failure and acute healthcare acquired pneumonia patient is seen and evaluated in room with RN at bedside, patient was transferred out of intensive care unit yesterday; patient is quite encephalopathic and only opens eyes to vigorous stimulation however she is not verbally responding, her pulse ox was 95% on room air, however she is tachypneic, and breathing very shallowly, vital signs have been stable, she's been afebrile. chest x-ray has been reviewed showing worsening bilateral multifocal edema and/or infiltrates. Today's labs showed an increasing white count up to 21.8, from previous 19.7 on yesterday's labs, hemoglobin is 9.3, sodium is 150, potassium is 3.7, chloride is 112, anion gap has increased To 14.1, BUN is 90 creatinine is 2.0, renal function has worsened, patient is being nourished via her PEG tube, and is currently receiving Nepro tube feedings at 35, nephrology is following and have increased to 50 mL of free water through the PEG tube every 4 hours. She has not been able to take anything by mouth in view of current dysphagia and aspiration. Patient will be placed on BiPAP support. She is already on antibiotics for pseudomonal urinary tract infection. Called patient's daughter Char Morales at [phone] and give her a detailed account of patient's declining condition; daughter wants to continue with aggressive treatment that possible re-intubation if needed 02/28/2020 Patient is seen and follow-up on the regular medical floor. She continues to have issues with waxing and waning mentation. She remains on BiPAP 12/428% FiO2. Blood gases were drawn and a pO2 of 111, CO2 38 and a pH of 7.43. No evidence of hypercapnia or hypoxemia and sodium is improved to 141. Creatinine 2.04. White count 15.2. Hemoglobin 8.0. She is status post 1 unit of packed red blood cells this admission. She remains on DuoNeb inhalations, Pulmicort inhalations, antibiotics in the form of meropenem. Urine culture was positive for pseudomonas aeruginosa. Patient's oxygenation continues to wax and wane; ABGs done revealed pCO2 of 38; feather edger service recommending CT of the head without contrast with neurology consult 02/29/2020 Patient is seen and evaluated in follow-up on the regular medical floor. She does open her eyes to verbal stimuli. She is following some simple commands today. Computed tomography scan of the brain revealed no acute intracranial abnormalities. Await further recommendations from neurology She is remaining on BiPAP 12 over 4 and 28% FiO2. O2 saturations up to 100%. Blood glucose 118. Continued on bronchodilators and meropenem. 03/01/2020 Patient is currently lying in the bed remains on BiPAP. Patient is drowsy and lethargic and encephalopathic. Was able to open her eyes with verbal stimuli. Blood pressure is stable. Laboratory data showed sodium 142 and percussion 4.5, BUN 104 and creatinine 2.9 Patient is being continued on antibiotics in the form of meropenem for pseudomonas urinary tract infection. Patient is being continued on breathing treatments and Pulmicort inhalation. Pulmonary, ID and nephrology is on board 03/02/2020 Patient is currently on BiPAP. Saturating at 90% on 2 L oxygen. Next and chest x-ray showed hypoventilatory changes and patchy peripheral interstitial infiltrates with slow improvement. WBC 15.1, hemoglobin 8.9 and BUN 108 and creatinine 3.2. Patient is afebrile. Patient is on meropenem and is on IV hydration with half normal saline.. Currently on PEG tube feeding. 03/03/2020 Patient is on BiPAP 12 x 4. Patient is able to open her eyes. Afebrile. Laboratory data showed sodium 132, potassium 4.3, BUN 107 and creatinine 3.0 Continue on PEG feeding and supportive care. Chest x-ray showed no significant change. Pulmonary and nephrology is on board. 03/04/2020 Patient remained on BiPAP support with FiO2 28%. Patient is awake and open her eyes. Breathing comfortably at this time. Denied any complaints of chest pain. Tolerating PEG tube feeding. Otherwise laboratory data showed BUN 111 and creatinine 3.12. Nephrology is on board. patient's daughter wants to continue on full CODE STATUS. Considering hemodialysis as per nephrology. Laboratory data showed WBC 15.1, hemoglobin 7.6 and sodium 129 and potassium 4.4 Pulmonary and nephrology is on board. 03/05/2020 Patient is currently resting in the bed comfortably. On oxygen with another cannula. Patient has been afebrile. No complaints of chest pain or worsening shortness of breath. Chest x-ray showed left greater than right multifocal acute infiltrates on the background mild cardiomegaly and low lung volumes redemonstrated. Perhaps new mild interstitial edema and small to tiny left greater than right pleural effusions assisting fluid component on the background of chronic changes. Ultrasound of the abdomen showed evidence of chronic medical renal disease. No hydronephrosis noted bilaterally. Underlying cirrhosis and portal hypertension suspected. Patient was given a dose of IV Lasix. IV Fluids on hold. Laboratory data showed BUN 103 and creatinine 3.13 and calcium 7.4, sodium 129 and potassium 3.8 Nephrology and pulmonary is on board. Patient remained on antibiotics in form of meropenem. 03/06/2020 Patient is currently lying in the bed awake alert but not oriented. Currently on oxygen at 4 L via nasal cannula. Saturating at 90%. Continued on tube feeding. Patient does have very minimal urine output with creatinine level 3.48 and BUN 126. Patient is being followed by nephrology. Laboratory data showed sodium level 126 and potassium 4.8. Continue bronchodilators and DVT prophylaxis. Also on meropenem for Pseudomonas urinary tract infection. Pulmonary is on board. 03/07/2020 Patient is BiPAP now. Chest x-ray showed patchy densities in the bilateral lungs with bandlike areas of atelectasis. Patient remains afebrile. Tube feeding is being tolerated. Via PEG tube. Laboratory test showed sodium at 132, potassium 4.3 and BUN 141 creatinine 4.3. Patient does have very minimal urine output. Hemoglobin is 6.5 and is being transfused with 1 unit of PRBC. WBC 15.4. Nephrology is planning for hemodialysis and vascular surgery was consulted for Aden catheter placement. Prognosis remains poor at this time. Currently full code. Current medications reviewed. Objective - Vital Signs Vital signs: Vital Signs Temp 98.9 F 03/07/20 14:42 Pulse 84 03/07/20 14:42 Resp 24 03/07/20 14:42 BP 102/55 03/07/20 14:42 Pulse Ox 100 03/07/20 14:42 Intake & Output 03/06/20 03/07/20 03/07/20 18:59 06:59 18:59 Intake Total 350 0 Output Total 2 77 Balance -2 273 0 Weight 115 kg Intake: IV 30 Sodium Chloride 0.9% 1, 30 000 ml @ 20 mls/hr IV . Q24H ANDREA Rx#:[id number] Intake, IV Titration 200 Amount Albumin Human 25% 50 ml 50 In Empty Bag 1 bag @ 50 mls/hr IVPB Q1H ANDREA Rx#: [id number] Albumin Human 25% 50 ml 50 In Empty Bag 1 bag @ 50 mls/hr IVPB Q1H ANDREA Rx#: [id number] Meropenem 1 gm In Sodium 100 Chloride 0.9% 100 ml @ 33 .3 mls/hr IVPB Q12HR ANDREA Rx#:[id number] Oral 0 Tube Feeding 120 Blood Product 0 Rc As-1 Unit 0 [id number] Output: Urine 75 Uretheral (Pablo) 75 Stool 2 2 Other: Voiding Method Indwelling Catheter Indwelling Catheter Indwelling Catheter # Bowel Movements 1 - Exam GENERAL EXAM: Quite drowsy, 75-year-old white female, on nasal cannula. Awake alert. HEAD: Normocephalic/atraumatic. EYES: Normal reaction of pupils, equal size. Conjunctiva pink, sclera white. NOSE: Clear with pink turbinates. THROAT: No erythema or exudates. NECK: No masses, no JVD, no thyroid enlargement, no adenopathy. CHEST: No chest wall deformity. Symmetrical expansion. Bibasilar diminished air entry. LUNGS: Equal air entry with diminished breath sounds, CVS: Regular rate and rhythm, normal S1 and S2, no gallops, no murmurs, no rubs ABDOMEN: Soft, nontender. No hepatosplenomegaly, normal bowel sounds, no guarding or rigidity. EXTREMITIES: No clubbing, no edema, no cyanosis, 2+ pulses and upper and lower extremities. - Labs CBC & Chem 7: 03/07/20 10:41 03/07/20 05:12 Labs: Abnormal Lab Results - Last 24 Hours (Table) 03/06/20 03/06/20 03/07/20 Range/Units 17:40 23:04 05:12 WBC (3.8-10.6) k/uL RBC (3.80-5.40) m/uL Hgb (11.4-16.0) gm/dL Hct (34.0-46.0) % RDW (11.5-15.5) % Sodium 132 L (135-145) mmol/L Carbon Dioxide 18.8 L (21.6-31.8) mmol/L Anion Gap 14.20 H (4.00-12.00) mmol/L BUN 141.0 H* (9.0-27.0) mg/dL Creatinine 4.3 H (0.6-1.5) mg/dL Est GFR (CKD-EPI)AfAm 10.8 L (60.0-200.0) Est GFR (CKD-EPI)NonAf 9.3 L (60.0-200.0) BUN/Creatinine Ratio 32.79 H (12.00-20.00) Ratio POC Glucose (mg/dL) 145 H 131 H (75-99) mg/dL ALT <8 L (8-44) U/L Total Protein 4.0 L (6.2-8.2) g/dL Albumin 2.90 L (3.80-4.90) g/dL Globulin 1.1 L (1.6-3.3) g/dL Crossmatch 03/07/20 03/07/20 03/07/20 Range/Units 05:46 10:41 10:41 WBC 15.4 H (3.8-10.6) k/uL RBC 2.21 L (3.80-5.40) m/uL Hgb 6.5 L* (11.4-16.0) gm/dL Hct 20.1 L (34.0-46.0) % RDW 16.2 H (11.5-15.5) % Sodium (135-145) mmol/L Carbon Dioxide (21.6-31.8) mmol/L Anion Gap (4.00-12.00) mmol/L BUN (9.0-27.0) mg/dL Creatinine (0.6-1.5) mg/dL Est GFR (CKD-EPI)AfAm (60.0-200.0) Est GFR (CKD-EPI)NonAf (60.0-200.0) BUN/Creatinine Ratio (12.00-20.00) Ratio POC Glucose (mg/dL) 106 H (75-99) mg/dL ALT (8-44) U/L Total Protein (6.2-8.2) g/dL Albumin (3.80-4.90) g/dL Globulin (1.6-3.3) g/dL Crossmatch See Detail 03/07/20 Range/Units 11:48 WBC (3.8-10.6) k/uL RBC (3.80-5.40) m/uL Hgb (11.4-16.0) gm/dL Hct (34.0-46.0) % RDW (11.5-15.5) % Sodium (135-145) mmol/L Carbon Dioxide (21.6-31.8) mmol/L Anion Gap (4.00-12.00) mmol/L BUN (9.0-27.0) mg/dL Creatinine (0.6-1.5) mg/dL Est GFR (CKD-EPI)AfAm (60.0-200.0) Est GFR (CKD-EPI)NonAf (60.0-200.0) BUN/Creatinine Ratio (12.00-20.00) Ratio POC Glucose (mg/dL) 115 H (75-99) mg/dL ALT (8-44) U/L Total Protein (6.2-8.2) g/dL Albumin (3.80-4.90) g/dL Globulin (1.6-3.3) g/dL Crossmatch Assessment and Plan Assessment: -Acute hypoxic respiratory failure/ secondary to sepsis and encephalopathy. Patient was extubated on 02/25/2020. Currently on BiPAP. Transition to nasal cannula. -Toxic encephalopathy: Secondary to sepsis most probably from urinary tract infection Pablo catheter will be changed patient has Pseudomonas in the urine patient is presently on cefepime although patient hasn't remitted susceptibility to cefepime as well as Zosyn. We will repeat urine analysis since the Pablo catheter was replaced patient may or may not need antibiotics we'll make the decision depending on urinalysis results. Infectious disease was consulted. -Pseudomonal UTI -Sepsis secondary to UTI -Acute on Chronic kidney disease stage IIIB: Nephrology is following the patient IV fluids as per nephrology. Patient blood pressure is low normal at this time. Patient is also receiving albumin,epogen as per nephrology -Type 2 diabetes mellitus. -Recent Covid 19 infection. -Hyperlipidemia -Dysphagia for which patient has a PEG tube -DVT prophylaxis: Subcutaneous heparin Time with Patient: Greater than 30
--- NOTE | 2020-03-07 22:44 | P.PN ---
Subjective Progress Note Date: 03/05/20 Late entery: This note is actually for 03/05/2020. Patient denies any new symptoms. Patient denies any headache. Objective - Vital Signs Vital signs: Vital Signs Temp 97.5 F L 03/07/20 20:00 Pulse 81 03/07/20 20:00 Resp 30 H 03/07/20 20:00 BP 94/63 03/07/20 20:00 Pulse Ox 95 03/07/20 20:00 Intake & Output 03/07/20 03/07/20 03/08/20 06:59 18:59 06:59 Intake Total 350 300 Output Total 77 2300 Balance 273 -2000 Weight 115 kg 115 kg Intake: IV 30 Sodium Chloride 0.9% 1, 30 000 ml @ 20 mls/hr IV . Q24H ANDREA Rx#:[id number] Intake, IV Titration 200 Amount Albumin Human 25% 50 ml 50 In Empty Bag 1 bag @ 50 mls/hr IVPB Q1H ANDREA Rx#: [id number] Albumin Human 25% 50 ml 50 In Empty Bag 1 bag @ 50 mls/hr IVPB Q1H ANDREA Rx#: [id number] Meropenem 1 gm In Sodium 100 Chloride 0.9% 100 ml @ 33 .3 mls/hr IVPB Q12HR ANDREA Rx#:[id number] Oral 0 Tube Feeding 120 Blood Product 0 Rc As-1 Unit 0 [id number] Hemodialysis 300 Output: Urine 75 Uretheral (Pablo) 75 Stool 2 Hemodialysis 2300 Other: Voiding Method Indwelling Catheter Indwelling Catheter # Bowel Movements 1 - Exam Patient alert and awake, slow mentation, states is in [facility], states is Nov could not tell the year. Patient makes eye contact, smiles at times. Speaks slowly and Patients face is symmetric, pupils round and reacting, tongue protrudes to the midline. 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 Did not cooperate for testing of the biceps or the deltoid, although brings hands up in air and adjusts the nasal canula. Wiggles feet at the ADF well. Patient has significant peripheral edema. Tone is equal and DTR are hypeactive and symmetric, planters flat. Abdomen soft and nontender. - Labs CBC & Chem 7: 03/07/20 10:41 03/07/20 05:12 Labs: Abnormal Lab Results - Last 24 Hours (Table) 03/06/20 03/07/20 03/07/20 Range/Units 23:04 05:12 05:46 WBC (3.8-10.6) k/uL RBC (3.80-5.40) m/uL Hgb (11.4-16.0) gm/dL Hct (34.0-46.0) % RDW (11.5-15.5) % Sodium 132 L (135-145) mmol/L Carbon Dioxide 18.8 L (21.6-31.8) mmol/L Anion Gap 14.20 H (4.00-12.00) mmol/L BUN 141.0 H* (9.0-27.0) mg/dL Creatinine 4.3 H (0.6-1.5) mg/dL Est GFR (CKD-EPI)AfAm 10.8 L (60.0-200.0) Est GFR (CKD-EPI)NonAf 9.3 L (60.0-200.0) BUN/Creatinine Ratio 32.79 H (12.00-20.00) Ratio POC Glucose (mg/dL) 131 H 106 H (75-99) mg/dL ALT <8 L (8-44) U/L Total Protein 4.0 L (6.2-8.2) g/dL Albumin 2.90 L (3.80-4.90) g/dL Globulin 1.1 L (1.6-3.3) g/dL Crossmatch 03/07/20 03/07/20 03/07/20 Range/Units 10:41 10:41 11:48 WBC 15.4 H (3.8-10.6) k/uL RBC 2.21 L (3.80-5.40) m/uL Hgb 6.5 L* (11.4-16.0) gm/dL Hct 20.1 L (34.0-46.0) % RDW 16.2 H (11.5-15.5) % Sodium (135-145) mmol/L Carbon Dioxide (21.6-31.8) mmol/L Anion Gap (4.00-12.00) mmol/L BUN (9.0-27.0) mg/dL Creatinine (0.6-1.5) mg/dL Est GFR (CKD-EPI)AfAm (60.0-200.0) Est GFR (CKD-EPI)NonAf (60.0-200.0) BUN/Creatinine Ratio (12.00-20.00) Ratio POC Glucose (mg/dL) 115 H (75-99) mg/dL ALT (8-44) U/L Total Protein (6.2-8.2) g/dL Albumin (3.80-4.90) g/dL Globulin (1.6-3.3) g/dL Crossmatch See Detail 03/07/20 Range/Units 17:46 WBC (3.8-10.6) k/uL RBC (3.80-5.40) m/uL Hgb (11.4-16.0) gm/dL Hct (34.0-46.0) % RDW (11.5-15.5) % Sodium (135-145) mmol/L Carbon Dioxide (21.6-31.8) mmol/L Anion Gap (4.00-12.00) mmol/L BUN (9.0-27.0) mg/dL Creatinine (0.6-1.5) mg/dL Est GFR (CKD-EPI)AfAm (60.0-200.0) Est GFR (CKD-EPI)NonAf (60.0-200.0) BUN/Creatinine Ratio (12.00-20.00) Ratio POC Glucose (mg/dL) 126 H (75-99) mg/dL ALT (8-44) U/L Total Protein (6.2-8.2) g/dL Albumin (3.80-4.90) g/dL Globulin (1.6-3.3) g/dL Crossmatch Assessment and Plan Assessment: * Altered mental status, likely due to toxic metabolic encephalopathy. * Acute on chronic renal failure * Anemia * Pseudomonas UTI, * Aspiration pneumonia with recent history of COVID-19 pneumonia * Severe generalized deconditioning. * Generalized edema * Diabetes * Dysphagia status post PEG placement. Plan: * Patient's altered mental status is likely due to toxic metabolic encephalopathy. * Patient has multiple EEGs in the past, which all showed generalized slowing consistent with encephalopathy. * No other neurological workup indicated. * Medical management as per IM, pulmonary and nephrology. * Patient is stable clinically. * Neurology will sign off. Please call neurology if any other concerns.
[2020-03-07 23:52] LABS: Hepatitis B Surface AB- Quant 177.8 mIU/mL; Hepatitis B Surface Antibody Reactive (Non-Reactive); Hepatitis B Surface Antigen Non-Reactive (Non-Reactive)
[2020-03-08] MEDS: INSULIN ASPART (NovoLOG) 100 UNIT/ML VIAL SQ SCH ×8 (00:14→21:18)
[2020-03-08 00:15] LABS: Glucose,Whole Blood 116 mg/dL (75-99)
[2020-03-08] MEDS: INSULIN DETEMIR (LEVEMIR) 100 UNIT/ML SYR SQ SCH ×2 (00:16→21:14)
[2020-03-08 03:25] LABS: Glucose,Whole Blood 127 mg/dL (75-99)
[2020-03-08 05:51] LABS: Glucose,Whole Blood 115 mg/dL (75-99)
[2020-03-08 07:01] LABS: Anisocytosis Slight; HCT 24.1 % (34.0-46.0); HGB 7.8 gm/dL (11.4-16.0); Hypochromasia Slight; MCH 29.1 pg (25.0-35.0); MCHC 32.3 g/dL (31.0-37.0); MCV 90.1 fL (80.0-100.0); Platelet Count 228 k/uL (150-450); Poikilocytosis Slight; RBC 2.67 m/uL (3.80-5.40); RDW 16.6 % (11.5-15.5)
[2020-03-08] MEDS: SODIUM BICARBONATE TAB 650 MG TAB PO SCH ×2 (08:24→21:13)
[2020-03-08] MEDS: ZINC SULFATE 220 MG CAP PO SCH (08:24)
[2020-03-08] MEDS: METOPROLOL TARTRATE 50 MG TAB PO SCH ×2 (08:24→16:40)
[2020-03-08] MEDS: ASCORBIC ACID 500 MG TAB PO SCH ×2 (08:25→21:13)
[2020-03-08] MEDS: HEPARIN SODIUM,PORCINE 5,000 UNIT/ML 1 ML VIAL SQ SCH ×2 (08:25→21:13)
[2020-03-08] MEDS: CHOLECALCIFEROL 1,000 UNIT TAB PO SCH (08:25)
[2020-03-08] MEDS: MULTIVITAMINS, THERA 1 EACH TAB PO SCH (08:25)
[2020-03-08] MEDS: MEROPENEM 1 GM in SODIUM CHLORIDE 0.9% 100 ML IVPB SCH (08:27)
[2020-03-08 09:02] LABS: Basophils # (M) 0.14 k/uL (0-0.2); Eosinophils # (M) 0.84 k/uL (0-0.7); Lymphocytes # (M) 0.42 k/uL (1.0-4.8); Metamyelocytes # (M) 0.14 k/uL (0); Metamyelocytes % 1 %; Monocytes # (M) 0.56 k/uL (0-1.0); Myelocytes # (M) 0.14 k/uL (0); Myelocytes % 1 %; Neutrophils # (M) 12.04 k/uL (1.3-7.7); Neutrophils % (M) 86 %; Nucleated Red Blood Cells 0 /100 WBC (0-0); Total Cells Counted 200
[2020-03-08 09:25] LABS: African American GFR (CKD) 12.5 (60.0-200.0); Albumin 2.6 g/dL (3.80-4.90); Albumin/Globulin Ratio 2.36 (1.60-3.17); Anion Gap 13.1 mmol/L (4.00-12.00); Calcium 8.4 mg/dL (8.7-10.3); Carbon Dioxide 22.9 mmol/L (21.6-31.8); Globulin 1.1 g/dL (1.6-3.3); Magnesium 1.9 mg/dL (1.5-2.4); Non-African American GFR(CKD) 10.8 (60.0-200.0); Potassium 4.2 mmol/L (3.5-5.5); Total Bilirubin 0.4 mg/dL (0.2-1.2); Total Protein 3.7 g/dL (6.2-8.2)
[2020-03-08] MEDS: IPRATROPIUM-ALBUTEROL 3 ML NEB INHALATION SCH ×4 (09:30→19:44)
[2020-03-08] MEDS: BUDESONIDE 0.5 MG/2 ML NEBU INHALATION SCH ×2 (09:30→19:43)
[2020-03-08 09:46] LABS: BUN/Creat Ratio 28.95 Ratio (12.00-20.00)
--- NOTE | 2020-03-08 10:34 | P.PN ---
Subjective Patient is seen in follow-up for acute kidney injury on chronic kidney disease. Patient has chronic kidney disease stage III with baseline creatinine near 1.5. Remains oliguric despite albumin and IV Lasix. Maintained on tube feeds. Quite edematous. Currently on BiPAP. Started on hemodialysis March 07. Tolerated 2 L ultrafiltration yesterday. Vital signs are stable. General: The patient appeared well nourished and normally developed. HEENT: Head exam is unremarkable. Neck is without jugular venous distension. LUNGS: Breath sounds decreased. HEART: Rate and Rhythm are regular. ABDOMEN: Soft, nontender. EXTREMITITES: 2+ edema. Objective - Vital Signs Vital signs: Vital Signs Temp 99.2 F 03/08/20 07:26 Pulse 94 03/08/20 09:50 Resp 26 H 03/08/20 07:56 BP 96/50 03/08/20 07:26 Pulse Ox 100 03/08/20 07:26 Intake & Output 03/07/20 03/08/20 03/08/20 18:59 06:59 18:59 Intake Total 300 Output Total 2300 0 2 Balance -1999 0 -2 Weight 115 kg 113.5 kg Intake: Blood Product 0 Rc As-1 Unit 0 [id number] Hemodialysis 300 Output: Urine 0 Uretheral (Pablo) 0 Stool 2 Hemodialysis 2300 Other: Voiding Method Indwelling Catheter Indwelling Catheter Indwelling Catheter # Bowel Movements 1 2 - Labs CBC & Chem 7: 03/08/20 06:34 03/08/20 06:34 Labs: Abnormal Lab Results - Last 24 Hours (Table) 03/05/20 03/07/20 03/07/20 Range/Units 11:26 10:41 10:41 WBC 15.4 H (3.8-10.6) k/uL RBC 2.21 L (3.80-5.40) m/uL Hgb 6.5 L* (11.4-16.0) gm/dL Hct 20.1 L (34.0-46.0) % RDW 16.2 H (11.5-15.5) % Neutrophils # (Manual) (1.3-7.7) k/uL Lymphocytes # (Manual) (1.0-4.8) k/uL Eosinophils # (Manual) (0-0.7) k/uL Metamyelocytes # (Man) (0) k/uL Myelocytes # (Manual) (0) k/uL Sodium (135-145) mmol/L Anion Gap (4.00-12.00) mmol/L BUN (9.0-27.0) mg/dL Creatinine (0.6-1.5) mg/dL Est GFR (CKD-EPI)AfAm (60.0-200.0) Est GFR (CKD-EPI)NonAf (60.0-200.0) BUN/Creatinine Ratio (12.00-20.00) Ratio Glucose (70-110) mg/dL POC Glucose (mg/dL) (75-99) mg/dL Calcium (8.7-10.3) mg/dL Total Protein (6.2-8.2) g/dL Albumin (3.80-4.90) g/dL Globulin (1.6-3.3) g/dL Hep Bs Antibody Reactive A (Non-Reactive) Crossmatch See Detail 03/07/20 03/07/20 03/08/20 Range/Units 11:48 17:46 00:13 WBC (3.8-10.6) k/uL RBC (3.80-5.40) m/uL Hgb (11.4-16.0) gm/dL Hct (34.0-46.0) % RDW (11.5-15.5) % Neutrophils # (Manual) (1.3-7.7) k/uL Lymphocytes # (Manual) (1.0-4.8) k/uL Eosinophils # (Manual) (0-0.7) k/uL Metamyelocytes # (Man) (0) k/uL Myelocytes # (Manual) (0) k/uL Sodium (135-145) mmol/L Anion Gap (4.00-12.00) mmol/L BUN (9.0-27.0) mg/dL Creatinine (0.6-1.5) mg/dL Est GFR (CKD-EPI)AfAm (60.0-200.0) Est GFR (CKD-EPI)NonAf (60.0-200.0) BUN/Creatinine Ratio (12.00-20.00) Ratio Glucose (70-110) mg/dL POC Glucose (mg/dL) 115 H 126 H 116 H (75-99) mg/dL Calcium (8.7-10.3) mg/dL Total Protein (6.2-8.2) g/dL Albumin (3.80-4.90) g/dL Globulin (1.6-3.3) g/dL Hep Bs Antibody (Non-Reactive) Crossmatch 03/08/20 03/08/20 03/08/20 Range/Units 03:24 05:49 06:34 WBC (3.8-10.6) k/uL RBC (3.80-5.40) m/uL Hgb (11.4-16.0) gm/dL Hct (34.0-46.0) % RDW (11.5-15.5) % Neutrophils # (Manual) (1.3-7.7) k/uL Lymphocytes # (Manual) (1.0-4.8) k/uL Eosinophils # (Manual) (0-0.7) k/uL Metamyelocytes # (Man) (0) k/uL Myelocytes # (Manual) (0) k/uL Sodium 134 L (135-145) mmol/L Anion Gap 13.10 H (4.00-12.00) mmol/L BUN 110.0 H* (9.0-27.0) mg/dL Creatinine 3.8 H (0.6-1.5) mg/dL Est GFR (CKD-EPI)AfAm 12.5 L (60.0-200.0) Est GFR (CKD-EPI)NonAf 10.8 L (60.0-200.0) BUN/Creatinine Ratio 28.95 H (12.00-20.00) Ratio Glucose 120 H (70-110) mg/dL POC Glucose (mg/dL) 127 H 115 H (75-99) mg/dL Calcium 8.4 L (8.7-10.3) mg/dL Total Protein 3.7 L (6.2-8.2) g/dL Albumin 2.60 L (3.80-4.90) g/dL Globulin 1.1 L (1.6-3.3) g/dL Hep Bs Antibody (Non-Reactive) Crossmatch 03/08/20 Range/Units 06:34 WBC 14.0 H (3.8-10.6) k/uL RBC 2.67 L (3.80-5.40) m/uL Hgb 7.8 L (11.4-16.0) gm/dL Hct 24.1 L (34.0-46.0) % RDW 16.6 H (11.5-15.5) % Neutrophils # (Manual) 12.04 H (1.3-7.7) k/uL Lymphocytes # (Manual) 0.42 L (1.0-4.8) k/uL Eosinophils # (Manual) 0.84 H (0-0.7) k/uL Metamyelocytes # (Man) 0.14 H (0) k/uL Myelocytes # (Manual) 0.14 H (0) k/uL Sodium (135-145) mmol/L Anion Gap (4.00-12.00) mmol/L BUN (9.0-27.0) mg/dL Creatinine (0.6-1.5) mg/dL Est GFR (CKD-EPI)AfAm (60.0-200.0) Est GFR (CKD-EPI)NonAf (60.0-200.0) BUN/Creatinine Ratio (12.00-20.00) Ratio Glucose (70-110) mg/dL POC Glucose (mg/dL) (75-99) mg/dL Calcium (8.7-10.3) mg/dL Total Protein (6.2-8.2) g/dL Albumin (3.80-4.90) g/dL Globulin (1.6-3.3) g/dL Hep Bs Antibody (Non-Reactive) Crossmatch Assessment and Plan Plan: Assessment: 1. Chronic kidney disease stage IIIB secondary to nephrosclerosis with baseline creatinine near 1.5. No hydronephrosis noted on kidney ultrasound done in January 2020. Left kidney wasn't visualized. Right kidney was small in size. 2. Hypervolemic hyponatremia. Better. 3. Anemia of chronic kidney disease. Maintained on Aranesp. Hemoglobin 6.5 yesterday and received a unit of blood. Better today. No active bleeding noted. 4. Generalized edema partially due to hypoalbuminemia causing third spacing. 5. Diabetes mellitus. 6. Acute kidney injury secondary to ATN secondary to infection. Also component of cardiorenal. No evidence of hydronephrosis noted on kidney ultrasound. Renal function worsening. Creatinine peaked at 4.3 this admission. Started on hemodialysis March 07 due to volume overload and oliguria. Not on steroids. BUN elevated due to acute kidney injury as well as GI bleed. 7. UTI. Urine culture positive for Pseudomonas maintained on antibiotics. 8. Metabolic acidosis secondary to acute kidney injury. Maintained on oral bicarbonate. Better. Plan: Maintain tube feeding. Status post IV Lasix and IV albumin March 06. Avoid nephrotoxins. Continue to monitor renal function and urine output. Monitor hemoglobin and transfuse as needed. Currently seen while undergoing hemodialysis. Third treatment tomorrow.
[2020-03-08] MEDS: FOLIC ACID 1 MG TAB PO SCH (12:55)
[2020-03-08] MEDS: THIAMINE 100 MG TAB PO SCH (12:55)
--- NOTE | 2020-03-08 13:22 | P.PN ---
Subjective Progress Note Date: 03/08/20 Acute hypoxic respiratory failure secondary to acute healthcare acquired pneumonia This is a 75-year-old female, familiar to my service, patient was recently at [facility], and she was initially admitted on 01/05/20. She was eventually discharged to a rehab facility on 02/19/20. Patient had many medical problems during her last admission included acute GI bleeding, acute on chronic diastolic congestive heart failure, acute covid 19 pneumonitis, H influenza pneumonia, and recurrent urinary tract infection. chronic kidney disease, hypertension, hypoxic respiratory failure secondary to pneumonia, obesity with BMI of 35.9, patient required PEG tube placement while she was in the hospital. She was seen by many consultants during her last hospital admission. Patient was eventually discharged to rehab facility on 02/19/20. However the patient was in the rehab facility for less than one day, apparently she developed worsening mental status, worsening shortness of breath. Hence the patient was transferred to [facility] in [facility], admitted for few days, and she continued to worsen, there was a concern about ongoing GI blood losses and hemoglobin. There is also a concern about her worsening pulmonary status, patient was transferred to [facility] and this consult was initiated. Apparently the day of her transferred to [facility], patient was intubated and required mechanical ventilation. Upon my evaluation the patient today in the ICU, patient is on assist control rate of 14, tidal volume is 480, FiO2 45% and PEEP of 5. ABG showed a pO2 of 130 pCO2 of 33 pH of 7.47. After reviewing the ABG, her ventilator settings were changed to tolerate volume is 450 assist-control rate 18 and kept her on 45% FiO2. Chest x-ray showed minimal bilateral infiltrates. Urinalysis is consistent with pyuria and bacteriuria. Hemoglobin is noted to be 7.3. WBC count is 19.9. And BUN is 78 creatinine 1.47. Patient was empirically started on cefepime for presumptive urinary tract infection and pneumonia patient had previous pseudomonal urinary tract infection. Not much history could be obtained from the patient most of the information obtained so far is from the chart Patient was reevaluated today on 02/25/2020, remains in the ICU, intubated and mechanically ventilated. She is on assist control rate of 18 tidal volume 455- 45% PEEP of 5. ABG showed a pO2 of 166 pCO2 of 32 pH of 7.49. On propofol at 30 mcg/kg/m, IV fluid 0.9 normal saline at 65 mL per hour. Remains on enteral feeding. She is also on cefepime empirically for presumptive pneumonia and urinary tract infection. We'll culture so far is showing gram-negative bacilli. Labs today were reviewed, WBC count is 20.2 hemoglobin is 7.2. Basic metabolic profile is unremarkable except for BUN of 79 creatinine of 1.49. Chest x-ray showed multifocal infiltrates bilaterally. Reevaluated today on 02/26/2020, patient remains in the ICU, she was weaned and extubated yesterday. She is now on room air with O2 saturation 96%, IV fluid is at KVO, patient is in sinus rhythm, she is hemodynamically stable, urine cultures are positive for gram-negative bacilli, final identification is pending. Patient did receive 1 unit of blood since she was admitted to the hospital. No active bleeding is noted. Patient was extubated yesterday, and she seems to have tolerated the extubation quite well. My plan is to transfer the patient today to a regular medical floor. Continues to have leukocytosis with WBC count of 19.7. Renal functioning remains borderline, creatinine is 1.61. On 02/27/2020 patient seen in follow-up on medical floor, patient was trans ferred out of intensive care unit yesterday, on today's exam she is quite encephalopathic, she opens eyes to vigorous stimulation however she is not verbally responding, her pulse ox was 95% on room air, however she is tachypneic, and breathing very shallowly, vital signs have been stable, she's been afebrile. Today's chest x-ray has been reviewed showing worsening bilateral multifocal edema and/or infiltrates. Today's labs showed an increasing white count up to 21.8, from previous 19.7 on yesterday's labs, hemoglobin is 9.3, sodium is 150, potassium is 3.7, chloride is 112, anion gap has increased To 14.1, B1 is 90 creatinine is 2.0, renal function has worsened, patient is being nourished via her PEG tube, and is currently receiving Nepro tube feedings at 35, however she is only receiving 30 mL of free water through the PEG tube every 4 hours. She has not been able to take anything by mouth in view of current dysphagia and aspiration. Patient will be placed on BiPAP support. She is already on antibiotics for pseudomonal urinary tract infection. The patient is seen today 07/28/2020 follow-up on the regular medical floor. She continues to have issues with waxing and waning mentation. She remains on BiPAP 12/428% FiO2. Blood gases were drawn and a pO2 of 111, CO2 38 and a pH of 7.43. No evidence of hypercapnia or hypoxemia and sodium is improved to 141. Creatinine 2.04. White count 15.2. Hemoglobin 8.0. She is status post 1 unit of packed red blood cells this admission. She remains on DuoNeb inhalations, Pulmicort inhalations, antibiotics in the form of meropenem. Urine culture was positive for pseudomonas aeruginosa. The patient is seen today 02/29/2020 in follow-up on the regular medical floor. She does open her eyes to verbal stimuli. She is following some simple commands today. Computed tomography scan of the brain revealed no acute intracranial abnormalities. She is remaining on BiPAP 12 over 4 and 28% FiO2. O2 saturations up to 100%. Blood glucose 118. Continued on bronchodilators and meropenem. The patient is seen today 03/03/2020 follow-up on the regular medical floor. She is currently resting fairly comfortably in bed. She is on BiPAP, 12 over 4 and 28% FiO2. O2 saturations remaining in the 90s. Arousable. Status post 1 unit of packed red blood cells this admission. Current hemoglobin 8.9. Sodium 132. Potassium 4.3. Bicarb 18. BUN 107. Creatinine 3.00. Remains on bronchodilators, antibiotics in the form of meropenem. She's been initiated on a Lasix drip at 10 mg per hour. Minimal urine output. Chest x-ray continues to show multifocal acute infiltrates left greater than right, no significant change compared to previous. The patient is seen today 03/05/2020 follow-up on the regular medical floor. She is currently resting comfortably in bed. Maintaining O2 saturations up to 100% on 3 L/m per nasal cannula. She's afebrile. Hemodynamically stable. Sodium 129. Potassium 3.8. BUN 103. Creatinine 3.13. Currently on 0.5% normal saline at 50 MLS per hour. Lasix drip has been discontinued. This x-ray continues to reveal left greater than right multifocal acute infiltrates on background mild cardiomegaly and low lung volumes. Mild interstitial edema and small tiny bilateral pleural effusions. Abdominal ultrasound reveals chronic medical renal disease. No hydronephrosis. Underlying cirrhosis and portal venous hypertension suspected. Mild ascites. Splenomegaly. She remains on meropenem, bronchodilators. The patient is seen today 03/06/2020 in follow-up on the regular medical floor. She is currently laying in bed. Awake and alert in no acute distress. Maintaining O2 saturations in the 90s on 4 L/m per nasal cannula. 2 feedings continue. She's had very minimal urine output. Nephrology is following. To be given albumin today in addition to Lasix. Sodium 127. Potassium 4.8. BUN 126. Creatinine 3.48. Glucose 1:30. She remains on bronchodilators, meropenem, heparin for DVT prophylaxis. The patient is seen today 03/07/2020 follow-up on the regular medical floor. S he is currently resting comfortably in bed. Awake and alert. On BiPAP 12 over 4 at 35% FiO2. O2 saturations up to 100%. Chest x-ray reveals patchy densities in the bilateral lungs with bandlike areas of atelectasis. She's afebrile. Hemodynamically stable. White count 15.4. Hemoglobin dropped to 6.5. Sodium 132. Potassium 4.3. Creatinine 4.3. 2 units of packed red blood cells have been ordered. She also stated have a dialysis catheter placed for renal replacement therapy. She remains on tube feedings via her PEG tube at 35 ML's which is called. On 03/08/2020, the patient is doing poorly. She is very much lethargic. She is very much BiPAP dependent. She still on a BiPAP pressure of 12 over 4 cm of water with an FiO2 of 35%. She is maintaining her pulse ox above 90%. Upon repeated stimulation, the patient would wake up and open up her eyes. Nevertheless, she is not following any commands. She continues to be altered. Her chest x-ray showed patchy bilateral pulmonary infiltrates from yesterday and there was a area of bandlike atelectasis in the right upper lobe. The patient is tolerating a full face BiPAP mask. The patient is tolerating enteral feeding for nutritional support with PEG tube. She does have advanced edema in all 4 extremities and the patient is undergoing dialysis on a daily basis. Her last bout of dialysis was today and the patient had a total of 4 L of fluid being ultrafiltration. Her current labs show a BUN of 110 and a creatinine of 4.3. Urine output is minimal at this point in time probably less than 5 mL as the patient is a Pablo catheter in place. CAT scan of the brain that was done last week was negative for any acute abnormalities. Objective - Vital Signs Vital signs: Vital Signs Temp 98.2 F 03/08/20 12:26 Pulse 84 03/08/20 13:06 Resp 22 03/08/20 12:26 BP 109/60 03/08/20 12:26 Pulse Ox 100 03/08/20 07:26 Intake & Output 03/07/20 03/08/20 03/08/20 18:59 06:59 18:59 Intake Total 300 420 Output Total 2300 0 2322 Balance -1999 0 -1902 Weight 115 kg 113.5 kg Intake: Oral 0 Tube Feeding 120 Blood Product 0 Rc As-1 Unit 0 [id number] Hemodialysis 300 300 Output: Urine 0 20 Uretheral (Pablo) 0 20 Stool 2 Hemodialysis 2300 2300 Other: Voiding Method Indwelling Catheter Indwelling Catheter Indwelling Catheter # Bowel Movements 1 2 - Exam GENERAL EXAM: Awake, alert, 75-year-old female patient, on BiPAP 12 over 4 and 35% FiO2, currently comfortable in no apparent distress. HEAD: Normocephalic/atraumatic. EYES: Normal reaction of pupils, equal size. Conjunctiva pink, sclera white. NOSE: Clear with pink turbinates. THROAT: No erythema or exudates. NECK: No masses, no JVD, no thyroid enlargement, no adenopathy. CHEST: No chest wall deformity. Symmetrical expansion. LUNGS: Equal air entry with crackles in the bilateral posterior bases, diminished breath sounds, CVS: Regular rate and rhythm, normal S1 and S2, no gallops, no murmurs, no rubs ABDOMEN: Soft, nontender. No hepatosplenomegaly, normal bowel sounds, no guarding or rigidity. EXTREMITIES: No clubbing, 2+ edema, no cyanosis, 2+ pulses and upper and lower extremities. MUSCULOSKELETAL: Muscle strength and tone normal. SPINE: No scoliosis or deformity SKIN: No rashes or significant lower extremity edema CENTRAL NERVOUS SYSTEM: No focal deficits, tone is normal in all 4 extremities. - Labs CBC & Chem 7: 03/08/20 06:34 03/08/20 06:34 Labs: Abnormal Lab Results - Last 24 Hours (Table) 03/05/20 03/07/20 03/07/20 Range/Units 11:26 05:12 10:41 WBC (3.8-10.6) k/uL RBC (3.80-5.40) m/uL Hgb (11.4-16.0) gm/dL Hct (34.0-46.0) % RDW (11.5-15.5) % Neutrophils # (Manual) (1.3-7.7) k/uL Lymphocytes # (Manual) (1.0-4.8) k/uL Eosinophils # (Manual) (0-0.7) k/uL Metamyelocytes # (Man) (0) k/uL Myelocytes # (Manual) (0) k/uL Sodium (135-145) mmol/L Anion Gap (4.00-12.00) mmol/L BUN 141.0 H* (9.0-27.0) mg/dL Creatinine (0.6-1.5) mg/dL Est GFR (CKD-EPI)AfAm (60.0-200.0) Est GFR (CKD-EPI)NonAf (60.0-200.0) BUN/Creatinine Ratio (12.00-20.00) Ratio Glucose (70-110) mg/dL POC Glucose (mg/dL) (75-99) mg/dL Calcium (8.7-10.3) mg/dL Total Protein (6.2-8.2) g/dL Albumin (3.80-4.90) g/dL Globulin (1.6-3.3) g/dL Hep Bs Antibody Reactive A (Non-Reactive) Crossmatch See Detail 03/07/20 03/08/20 03/08/20 Range/Units 17:46 00:13 03:24 WBC (3.8-10.6) k/uL RBC (3.80-5.40) m/uL Hgb (11.4-16.0) gm/dL Hct (34.0-46.0) % RDW (11.5-15.5) % Neutrophils # (Manual) (1.3-7.7) k/uL Lymphocytes # (Manual) (1.0-4.8) k/uL Eosinophils # (Manual) (0-0.7) k/uL Metamyelocytes # (Man) (0) k/uL Myelocytes # (Manual) (0) k/uL Sodium (135-145) mmol/L Anion Gap (4.00-12.00) mmol/L BUN (9.0-27.0) mg/dL Creatinine (0.6-1.5) mg/dL Est GFR (CKD-EPI)AfAm (60.0-200.0) Est GFR (CKD-EPI)NonAf (60.0-200.0) BUN/Creatinine Ratio (12.00-20.00) Ratio Glucose (70-110) mg/dL POC Glucose (mg/dL) 126 H 116 H 127 H (75-99) mg/dL Calcium (8.7-10.3) mg/dL Total Protein (6.2-8.2) g/dL Albumin (3.80-4.90) g/dL Globulin (1.6-3.3) g/dL Hep Bs Antibody (Non-Reactive) Crossmatch 03/08/20 03/08/20 03/08/20 Range/Units 05:49 06:34 06:34 WBC 14.0 H (3.8-10.6) k/uL RBC 2.67 L (3.80-5.40) m/uL Hgb 7.8 L (11.4-16.0) gm/dL Hct 24.1 L (34.0-46.0) % RDW 16.6 H (11.5-15.5) % Neutrophils # (Manual) 12.04 H (1.3-7.7) k/uL Lymphocytes # (Manual) 0.42 L (1.0-4.8) k/uL Eosinophils # (Manual) 0.84 H (0-0.7) k/uL Metamyelocytes # (Man) 0.14 H (0) k/uL Myelocytes # (Manual) 0.14 H (0) k/uL Sodium 134 L (135-145) mmol/L Anion Gap 13.10 H (4.00-12.00) mmol/L BUN 110.0 H* (9.0-27.0) mg/dL Creatinine 3.8 H (0.6-1.5) mg/dL Est GFR (CKD-EPI)AfAm 12.5 L (60.0-200.0) Est GFR (CKD-EPI)NonAf 10.8 L (60.0-200.0) BUN/Creatinine Ratio 28.95 H (12.00-20.00) Ratio Glucose 120 H (70-110) mg/dL POC Glucose (mg/dL) 115 H (75-99) mg/dL Calcium 8.4 L (8.7-10.3) mg/dL Total Protein 3.7 L (6.2-8.2) g/dL Albumin 2.60 L (3.80-4.90) g/dL Globulin 1.1 L (1.6-3.3) g/dL Hep Bs Antibody (Non-Reactive) Crossmatch Assessment and Plan Plan: 1 Acute hypoxic respiratory failure secondary to debility of healthcare acquired pneumonia, recent required intubation and placement on mechanical ventilator, was successfully weaned and extubated on 02/25/2020, transfer out of intensive care unit on 02/26/2020. Currently on BiPAP 12 over 4 and 35% FiO2 with O2 saturations up to 100%. Her overall pulmonary status is unchanged compared to yesterday and the patient is going to have another test x-ray today. . The patient was dialyzed and she completed a total of 2 L of ultrafiltration. 2 Altered mental status of unclear etiology, computed tomography scan of the brain revealed no acute intracranial abnormalities, most likely toxic metabolic encephalopathy. The patient remains to be quite lethargic. Arousable. Is not following a significant commands. 3 Acute urinary tract infection with urine cultures positive for pseudomonas aeruginosa, currently on meropenem 4 Acute kidney injury, currently on hemodialysis and underwent 2 sessions of hemodialysis 6 Hyperkalemia related to free water deficit 7 Type 2 diabetes mellitus 8 Recent history of hospitalization related to COVID 19 related pneumonia, and GI bleeding 9 History of dysphagia requiring PEG tube placement 10 Dyslipidemia 11 History of chronic diastolic congestive heart failure 12 History of chronic GI blood loss and positive Hemoccult stools, exact etiology is not clear, to be investigated by gastroenterology 13 Chronic anemia possibly related to chronic renal failure, current hemoglobin 7.8 and the patient received a unit of packed RBC. 14 Generalized edema secondary to hypoalbuminemia 15 Severe sepsis, UTI secondary to pseudomonas aeruginosa. 16 Poor overall functional performance based on the above-mentioned multiple comorbidities Plan: Much debilitated. Very much altered mentally and encephalopathic. No clear cause for her encephalopathy other than metabolic encephalopathy. She did the same thing a month ago when she got hospitalized to the intensive care unit with Covid 19. She is arousable. Does not following any commands. Currently on BiPAP pressure of 12/14 FiO2 of 35% HD per nephrology last bout of renal replacement therapy was today Chest x-ray today Continue enteral feeding for nutritional support Urologist reevaluate the patient's mental status Nephrology is on the case regarding Renal replacement therapy
--- NOTE | 2020-03-08 13:55 | XR ---
EXAMINATION TYPE: XR chest 1V DATE OF EXAM: 03/08/2020 COMPARISON: 03/07/2020 HISTORY: 75 year-old female respiratory failure TECHNIQUE: Single frontal view of the chest is obtained. FINDINGS: Heart upper limits of normal in size. Bilateral interstitial opacities persist. Possible small left e ffusion. Overall lung volumes are slightly improved from 03/07/2020. Right PICC tip in the right atriu m. IMPRESSION: Continued patchy bilateral interstitial infiltrates but with improved lung volumes as compared to 02/19.
--- NOTE | 2020-03-08 14:05 | PN ---
PROGRESS NOTE DATE OF SERVICE: 03/08/2020 REASON FOR FOLLOWUP: Pseudomonas urinary tract infection and pneumonia. INTERVAL HISTORY: The patient is currently afebrile. She was undergoing hemodialysis. She did have second dialysis today with removal of 2 L yesterday and plan for the same today. The patient remains to be on BiPAP. Remains to be lethargic though did open eyes to her name but did not provide any further history. No other changes reported by nursing staff. PHYSICAL EXAMINATION: Her blood pressure 109/60 with a pulse of 100, temperature 98.2. General description is an elderly female lying in bed in no distress. RESPIRATORY SYSTEM: Unlabored breathing with decreased breath sounds at the bases. No wheeze. HEART: S1, S2. Regular rate and rhythm. ABDOMEN: Soft, no tenderness. LABS: Hemoglobin 7.8, white count 14,000. BUN of 110, creatinine 3.8. DIAGNOSTIC IMPRESSION AND PLAN: Patient with Pseudomonas urinary tract infection along with pneumonia also have renal failure requiring dialysis. The patient is covered with meropenem to continue. Overall prognosis remains to be guarded. MMODL / IJN: [id number] /
[2020-03-08] MEDS: ACETAMINOPHEN ORAL SUSP (PEDS) 3,840 MG/120 ML BOTTLE PO PRN (17:17)
[2020-03-08 18:27] LABS: Glucose,Whole Blood 155 mg/dL (75-99)
[2020-03-08 20:00] LABS: Glucose,Whole Blood 126 mg/dL (75-99)
[2020-03-08 20:41] LABS: Glucose,Whole Blood 153 mg/dL (75-99)
[2020-03-09 01:53] LABS: Glucose,Whole Blood 131 mg/dL (75-99)
[2020-03-09] MEDS: INSULIN ASPART (NovoLOG) 100 UNIT/ML VIAL SQ SCH ×8 (02:03→18:17)
[2020-03-09 06:53] LABS: Glucose,Whole Blood 129 mg/dL (75-99)
[2020-03-09] MEDS: BUDESONIDE 0.5 MG/2 ML NEBU INHALATION SCH ×2 (07:30→20:19)
[2020-03-09] MEDS: IPRATROPIUM-ALBUTEROL 3 ML NEB INHALATION SCH ×4 (07:30→20:19)
[2020-03-09 07:33] LABS: Anisocytosis Slight; HCT 25.3 % (34.0-46.0); HGB 8.4 gm/dL (11.4-16.0); Hypochromasia Slight; MCH 29.7 pg (25.0-35.0); MCHC 33.1 g/dL (31.0-37.0); MCV 89.7 fL (80.0-100.0); Mean Platelet Volume 8.7; Platelet Count 257 k/uL (150-450); Poikilocytosis Slight; RBC 2.82 m/uL (3.80-5.40); RDW 16.1 % (11.5-15.5); WBC 14.6 k/uL (3.8-10.6)
[2020-03-09] MEDS: METOPROLOL TARTRATE 50 MG TAB PO SCH ×2 (07:53→15:56)
[2020-03-09 08:38] LABS: Eosinophils # (M) 0.44 k/uL (0-0.7); Lymphocytes # (M) 0.29 k/uL (1.0-4.8); Monocytes # (M) 0.15 k/uL (0-1.0); Neutrophils # (M) 13.72 k/uL (1.3-7.7); Neutrophils % (M) 94 %; Nucleated Red Blood Cells 0 /100 WBC (0-0); Total Cells Counted 100
[2020-03-09 08:40] LABS: Polychromasia Present
[2020-03-09] MEDS: HEPARIN SODIUM,PORCINE 5,000 UNIT/ML 1 ML VIAL SQ SCH ×2 (08:41→19:40)
[2020-03-09] MEDS: CHOLECALCIFEROL 1,000 UNIT TAB PO SCH (08:41)
[2020-03-09] MEDS: MULTIVITAMINS, THERA 1 EACH TAB PO SCH (08:41)
[2020-03-09] MEDS: ASCORBIC ACID 500 MG TAB PO SCH ×2 (08:41→19:39)
[2020-03-09] MEDS: MEROPENEM 1 GM in SODIUM CHLORIDE 0.9% 100 ML IVPB SCH ×2 (08:41→19:36)
[2020-03-09] MEDS: SODIUM BICARBONATE TAB 650 MG TAB PO SCH ×2 (08:42→19:39)
[2020-03-09] MEDS: ZINC SULFATE 220 MG CAP PO SCH (08:42)
[2020-03-09 09:41] LABS: African American GFR (CKD) 16.7 (60.0-200.0); Albumin 2.8 g/dL (3.80-4.90); Albumin/Globulin Ratio 2.33 (1.60-3.17); Anion Gap 13.4 mmol/L (4.00-12.00); BUN/Creat Ratio 25.67 Ratio (12.00-20.00); Calcium 8.5 mg/dL (8.7-10.3); Carbon Dioxide 25.6 mmol/L (21.6-31.8); Globulin 1.2 g/dL (1.6-3.3); Magnesium 1.8 mg/dL (1.5-2.4); Non-African American GFR(CKD) 14.4 (60.0-200.0); Phosphorus 4.3 mg/dL (2.4-5.1); Potassium 3.9 mmol/L (3.5-5.5); Total Bilirubin 0.4 mg/dL (0.3-1.2)
--- NOTE | 2020-03-09 11:03 | P.PN ---
Subjective Patient is seen in follow-up for acute kidney injury on chronic kidney disease. Patient has chronic kidney disease stage III with baseline creatinine near 1.5. Remains oliguric despite albumin and IV Lasix. Maintained on tube feeds. Quite edematous. Currently on 5 L high flow. Started on hemodialysis March 07. Tolerated 2 L ultrafiltration yesterday. Vital signs are stable. General: The patient appeared well nourished and normally developed. HEENT: Head exam is unremarkable. Neck is without jugular venous distension. LUNGS: Breath sounds decreased. HEART: Rate and Rhythm are regular. ABDOMEN: Soft, nontender. EXTREMITITES: 2+ edema. Objective - Vital Signs Vital signs: Vital Signs Temp 98.0 F 03/09/20 07:38 Pulse 106 H 03/09/20 07:47 Resp 30 H 03/09/20 07:38 BP 99/63 03/09/20 07:38 Pulse Ox 99 03/09/20 08:20 Intake & Output 03/08/20 03/09/20 03/09/20 18:59 06:59 18:59 Intake Total 420 470 Output Total 2399 82 20 -1978 388 -20 Weight 108.5 kg Intake: Oral 0 0 Tube Feeding 120 370 Hemodialysis 300 Other 100 Output: Urine 95 82 20 Uretheral (Pablo) 40 80 10 Stool 4 0 0 Hemodialysis 2300 Other: Voiding Method Indwelling Catheter Indwelling Catheter Indwelling Catheter # Voids 1 1 # Bowel Movements 2 - Labs CBC & Chem 7: 03/09/20 05:57 03/09/20 05:57 Labs: Abnormal Lab Results - Last 24 Hours (Table) 03/08/20 03/08/20 03/08/20 Range/Units 06:34 11:36 18:25 WBC (3.8-10.6) k/uL RBC (3.80-5.40) m/uL Hgb (11.4-16.0) gm/dL Hct (34.0-46.0) % RDW (11.5-15.5) % Neutrophils # (Manual) (1.3-7.7) k/uL Lymphocytes # (Manual) (1.0-4.8) k/uL Sodium (135-145) mmol/L Chloride (96-109) mmol/L Anion Gap (4.00-12.00) mmol/L BUN 110.0 H* (9.0-27.0) mg/dL Creatinine (0.6-1.5) mg/dL Est GFR (CKD-EPI)AfAm (60.0-200.0) Est GFR (CKD-EPI)NonAf (60.0-200.0) BUN/Creatinine Ratio (12.00-20.00) Ratio POC Glucose (mg/dL) 126 H 155 H (75-99) mg/dL Calcium (8.7-10.3) mg/dL Total Protein (6.2-8.2) g/dL Albumin (3.80-4.90) g/dL Globulin (1.6-3.3) g/dL 03/08/20 03/09/20 03/09/20 Range/Units 20:40 01:51 05:57 WBC (3.8-10.6) k/uL RBC (3.80-5.40) m/uL Hgb (11.4-16.0) gm/dL Hct (34.0-46.0) % RDW (11.5-15.5) % Neutrophils # (Manual) (1.3-7.7) k/uL Lymphocytes # (Manual) (1.0-4.8) k/uL Sodium 133 L (135-145) mmol/L Chloride 94 L (96-109) mmol/L Anion Gap 13.40 H (4.00-12.00) mmol/L BUN 77.0 H (9.0-27.0) mg/dL Creatinine 3.0 H (0.6-1.5) mg/dL Est GFR (CKD-EPI)AfAm 16.7 L (60.0-200.0) Est GFR (CKD-EPI)NonAf 14.4 L (60.0-200.0) BUN/Creatinine Ratio 25.67 H (12.00-20.00) Ratio POC Glucose (mg/dL) 153 H 131 H (75-99) mg/dL Calcium 8.5 L (8.7-10.3) mg/dL Total Protein 4.0 L (6.2-8.2) g/dL Albumin 2.80 L (3.80-4.90) g/dL Globulin 1.2 L (1.6-3.3) g/dL 03/09/20 03/09/20 Range/Units 05:57 06:51 WBC 14.6 H (3.8-10.6) k/uL RBC 2.82 L (3.80-5.40) m/uL Hgb 8.4 L (11.4-16.0) gm/dL Hct 25.3 L (34.0-46.0) % RDW 16.1 H (11.5-15.5) % Neutrophils # (Manual) 13.72 H (1.3-7.7) k/uL Lymphocytes # (Manual) 0.29 L (1.0-4.8) k/uL Sodium (135-145) mmol/L Chloride (96-109) mmol/L Anion Gap (4.00-12.00) mmol/L BUN (9.0-27.0) mg/dL Creatinine (0.6-1.5) mg/dL Est GFR (CKD-EPI)AfAm (60.0-200.0) Est GFR (CKD-EPI)NonAf (60.0-200.0) BUN/Creatinine Ratio (12.00-20.00) Ratio POC Glucose (mg/dL) 129 H (75-99) mg/dL Calcium (8.7-10.3) mg/dL Total Protein (6.2-8.2) g/dL Albumin (3.80-4.90) g/dL Globulin (1.6-3.3) g/dL Assessment and Plan Plan: Assessment: 1. Chronic kidney disease stage IIIB secondary to nephrosclerosis with baseline creatinine near 1.5. No hydronephrosis noted on kidney ultrasound done in January 2020. Left kidney wasn't visualized. Right kidney was small in size. 2. Hypervolemic hyponatremia. Stable. 3. Anemia of chronic kidney disease. Maintained on Aranesp. Hemoglobin 6.5 y esterday and received a unit of blood. Better today. No active bleeding noted. 4. Generalized edema partially due to hypoalbuminemia causing third spacing. 5. Diabetes mellitus. 6. Acute kidney injury secondary to ATN secondary to infection. Also component of cardiorenal. No evidence of hydronephrosis noted on kidney ultrasound. Renal function worsening. Creatinine peaked at 4.3 this admission. Started on hemodialysis March 07 due to volume overload and oliguria. Not on steroids. BUN elevated due to acute kidney injury as well as GI bleed. 7. UTI. Urine culture positive for Pseudomonas maintained on antibiotics. 8. Metabolic acidosis secondary to acute kidney injury. Maintained on oral bicarbonate. Better. Plan: Maintain tube feeding. Status post IV Lasix and IV albumin March 06. Avoid nephrotoxins. Continue to monitor renal function and urine output. Monitor hemoglobin and transfuse as needed. Third treatment of hemodialysis today.
[2020-03-09] MEDS: THIAMINE 100 MG TAB PO SCH (11:05)
[2020-03-09] MEDS: FOLIC ACID 1 MG TAB PO SCH (11:05)
[2020-03-09] MEDS: DARBEPOETIN ALFA 40 MCG/0.4 ML SYRINGE SQ SCH (11:05)
[2020-03-09 11:54] LABS: Glucose,Whole Blood 154 mg/dL (75-99)
--- NOTE | 2020-03-09 12:43 | P.PN ---
Subjective Progress Note Date: 03/09/20 Principal diagnosis: Acute hypoxic respiratory failure and acute healthcare acquired pneumonia This is a 75-year-old female, familiar to my service, patient was recently at [facility], and she was initially admitted on 01/05/20. She was eventually discharged to a rehab facility on 02/19/20. Patient had many medical problems during her last admission included acute GI bleeding, acute on chronic diastolic congestive heart failure, acute covid 19 pneumonitis, H influenza pneumonia, and recurrent urinary tract infection. chronic kidney disease, hypertension, hypoxic respiratory failure secondary to pneumonia, obesity with BMI of 35.9, patient required PEG tube placement while she was in the hospital. She was seen by many consultants during her last hospital admission. Patient was eventually discharged to rehab facility on 02/19/20. However the patient was in the rehab facility for less than one day, apparently she developed worsening mental status, worsening shortness of breath. Hence the patient was transferred to [facility] in [facility], admitted for few days, and she continued to worsen, there was a concern about ongoing GI blood losses and hemoglobin. There is also a concern about her worsening pulmonary status, patient was transferred to [facility] and this consult was initiated. Apparently the day of her transferred to [facility], patient was intubated and required mechanical ventilation. Upon my evaluation the patient today in the ICU, patient is on assist control rate of 14, tidal volume is 480, FiO2 45% and PEEP of 5. ABG showed a pO2 of 130 pCO2 of 33 pH of 7.47. After reviewing the ABG, her ventilator settings were changed to tolerate volume is 450 assist-control rate 18 and kept her on 45% FiO2. Chest x-ray showed minimal bilateral infiltrates. Urinalysis is consistent with pyuria and bacteriuria. Hemoglobin is noted to be 7.3. WBC count is 19.9. And BUN is 78 creatinine 1.47. Patient was empirically started on cefepime for presumptive urinary tract infection and pneumonia patient had previous pseudomonal urinary tract infection. Not much history could be obtained from the patient most of the information obtained so far is from the chart Patient was reevaluated today on 02/25/2020, remains in the ICU, intubated and mechanically ventilated. She is on assist control rate of 18 tidal volume 455- 45% PEEP of 5. ABG showed a pO2 of 166 pCO2 of 32 pH of 7.49. On propofol at 30 mcg/kg/m, IV fluid 0.9 normal saline at 65 mL per hour. Remains on enteral feeding. She is also on cefepime empirically for presumptive pneumonia and urinary tract infection. We'll culture so far is showing gram-negative bacilli. Labs today were reviewed, WBC count is 20.2 hemoglobin is 7.2. Basic metabolic profile is unremarkable except for BUN of 79 creatinine of 1.49. Chest x-ray showed multifocal infiltrates bilaterally. Reevaluated today on 02/26/2020, patient remains in the ICU, she was weaned and extubated yesterday. She is now on room air with O2 saturation 96%, IV fluid is at KVO, patient is in sinus rhythm, she is hemodynamically stable, urine culture s are positive for gram-negative bacilli, final identification is pending. Patient did receive 1 unit of blood since she was admitted to the hospital. No active bleeding is noted. Patient was extubated yesterday, and she seems to have tolerated the extubation quite well. My plan is to transfer the patient today to a regular medical floor. Continues to have leukocytosis with WBC count of 19.7. Renal functioning remains borderline, creatinine is 1.61. On 02/27/2020 patient seen in follow-up on medical floor, patient was transferred out of intensive care unit yesterday, on today's exam she is quite encephalopathic, she opens eyes to vigorous stimulation however she is not verbally responding, her pulse ox was 95% on room air, however she is tachypneic, and breathing very shallowly, vital signs have been stable, she's been afebrile. Today's chest x-ray has been reviewed showing worsening bilateral multifocal edema and/or infiltrates. Today's labs showed an increasing white count up to 21.8, from previous 19.7 on yesterday's labs, hemoglobin is 9.3, sodium is 150, potassium is 3.7, chloride is 112, anion gap has increased To 14.1, B1 is 90 creatinine is 2.0, renal function has worsened, patient is being nourished via her PEG tube, and is currently receiving Nepro tube feedings at 35, however she is only receiving 30 mL of free water through the PEG tube every 4 hours. She has not been able to take anything by mouth in view of current dysphagia and aspiration. Patient will be placed on BiPAP support. She is already on antibiotics for pseudomonal urinary tract infection. On 03/01/2020 patient seen in follow-up on general medical floor, she remains on BiPAP, currently with pressures of 12 over 4, and FiO2 of 28%, her pulse ox is 100%, she remains encephalopathic, drowsy, but opens eyes to voice, follows simple commands, but not consistently, appears weak. But no acute distress was noted, low-grade fever this afternoon, with a temp of 99.7F. Urine culture was positive for pseudomonas aeruginosa, blood cultures have been negative. Today's labs have been reviewed, there has been further worsening of her renal function, with B1 up to 104, and creatinine of 2.9, electrolytes were within normal limits. Patient is being nourished via her PEG tube, she is receiving Nepro at 35 ML per hour, and for water flushes at 300 mg every 4 hours. She remains on meropenem, ID service is following, he is on bronchodilators, she is on vitamin C, vitamin D, zinc supplement, and she is receiving half-normal saline at a rate of 50 ML per hour. On 03/02/2020 patient seen in follow-up on medical floor, mentation is improved today, more awake, responsive, she is currently off BiPAP, she is on 2 L of oxygen pulse ox of 90%, hemodynamically stable, she has been afebrile, hemodynamics she's been stable, chest x-ray today shows hypoventilatory changes, patchy peripheral interstitial infiltrates but are slowing improvement. Today's lab work is been reviewed, with blood cell count is 15.1, hemoglobin is 8.9, and nitrites within normal limits, renal profile has worsened, and BUN is 108, and creatinine is 3.2. He continues on meropenem, and she continues on half-normal seen at a rate of 50 ML per hour, she is receiving enteral feedings through her PEG tube. On 03/04/2020 patient seen in follow-up on medical floor, she is currently on BiPAP support, pressures of 12.4, and FiO2 of 20%, she is awake, seems to be breathing comfortably, she is answering simple questions, she denies any worsening dyspnea, no completes of chest pain. Lung sounds reveal diminished breath sounds bilaterally, no crackles or wheezing. Patient is tolerating tube feedings, however apparently she became very oliguric and she has only produced 20 mL of turbid looking urine in the last 12 hours. Nephrology is following, and considering hemodialysis initiation. Apparently Dr. Fine spoke to patient's daughter to discuss patient's condition and prognosis, and to discuss palliative care versus a full code and hemodialysis in the patient's daughter would like to continue with full CODE STATUS and will consider hemodialysis. For now she is breathing comfortably, however in view of worsening renal function she will likely require BiPAP support, and if respiratory status d eclines may need intubation. Last chest x-ray was done yesterday showing left greater than right multifocal acute infiltrates. She has significant amount of generalized swelling in upper and lower extremities. She is on tube feedings, with Nepro via her PEG tube at 35 with a goal of 35. Today's labs have been reviewed, showing white blood cell count of 15.1, hemoglobin is 7.6, sodium is 129, potassium is 4.4, B1 is 111, creatinine is 3.12 On 03/09/2020 is seen in follow-up on medical floor, much more awake today, she is disoriented to place and time, but able to answer simple questions, she is currently off BiPAP support, she is on 5 L of oxygen a pulse ox of 99%, she has been afebrile, she denies any shortness of breath, chest pain, no cough or congestion, she has been nothing by mouth, she is getting tube feedings with Nepro at 35 ML per hour, patient gets free water flushes per the PEG tube as well, abdomen is soft, patient has had no nausea vomiting or diarrhea. Ration had hemodialysis on 03/07/2020 with removal of 2.3 L of fluid and again yesterday on 03/08/2020 with removal of 2.3 L of fluid, generalized edema persists although improved. Lung sounds are diminished, no rhonchi or wheezing. These labs have been reviewed showing white blood cell count is relatively sta ble at 14.6, hemoglobin is 8.4, sodium is 133, potassium 3.9, chloride is 94, BUN is 77, creatinine is 3.0, renal profile has improved. Yesterday's chest x- ray showed bilateral interstitial infiltrates that were improved in the appearance Objective - Vital Signs Vital signs: Vital Signs Temp 98.0 F 03/09/20 07:38 Pulse 107 H 03/09/20 11:13 Resp 30 H 03/09/20 07:38 BP 99/63 03/09/20 07:38 Pulse Ox 99 03/09/20 08:20 Intake & Output 03/08/20 03/09/20 03/09/20 18:59 06:59 18:59 Intake Total 420 470 250 Output Total 2399 82 25 Balance -1978 388 225 Weight 108.5 kg Intake: Oral 0 0 0 Tube Feeding 120 370 250 Hemodialysis 300 Other 100 Output: Urine 95 82 25 Uretheral (Pablo) 40 80 15 Stool 4 0 0 Hemodialysis 2300 Other: Voiding Method Indwelling Catheter Indwelling Catheter Indwelling Catheter # Voids 1 1 # Bowel Movements 2 - Exam GENERAL EXAM: Awake and alert today's exam, 75-year-old white female, off BiPAP support with pressures of 12 over 4 and FiO2 of 28%, Patient is currently on 5 L of oxygen HEAD: Normocephalic/atraumatic. EYES: Normal reaction of pupils, equal size. Conjunctiva pink, sclera white. NOSE: Clear with pink turbinates. THROAT: No erythema or exudates. NECK: No masses, no JVD, no thyroid enlargement, no adenopathy. CHEST: No chest wall deformity. Symmetrical expansion. LUNGS: Equal air entry with diminished breath sounds, CVS: Regular rate and rhythm, normal S1 and S2, no gallops, no murmurs, no rubs ABDOMEN: Soft, nontender. No hepatosplenomegaly, normal bowel sounds, no guarding or rigidity. PEG tube is in place, and patient is receiving Nepro at 35 ML per hour, with 300 mL of water flushes every 4 hours EXTREMITIES: No clubbing, no edema, no cyanosis, 2+ pulses and upper and lower extremities. MUSCULOSKELETAL: Muscle strength and tone normal. SPINE: No scoliosis or deformity SKIN: No rashes CENTRAL NERVOUS SYSTEM: Drowsy, opens eyes but does not verbally respond. No focal deficits, tone is normal in all 4 extremities. - Labs CBC & Chem 7: 03/09/20 05:57 03/09/20 05:57 Labs: Abnormal Lab Results - Last 24 Hours (Table) 03/08/20 03/08/2003/08/21 Range/Units 11:36 18:25 20:40 WBC (3.8-10.6) k/uL RBC (3.80-5.40) m/uL Hgb (11.4-16.0) gm/dL Hct (34.0-46.0) % RDW (11.5-15.5) % Neutrophils # (Manual) (1.3-7.7) k/uL Lymphocytes # (Manual) (1.0-4.8) k/uL Sodium (135-145) mmol/L Chloride (96-109) mmol/L Anion Gap (4.00-12.00) mmol/L BUN (9.0-27.0) mg/dL Creatinine (0.6-1.5) mg/dL Est GFR (CKD-EPI)AfAm (60.0-200.0) Est GFR (CKD-EPI)NonAf (60.0-200.0) BUN/Creatinine Ratio (12.00-20.00) Ratio POC Glucose (mg/dL) 126 H 155 H 153 H (75-99) mg/dL Calcium (8.7-10.3) mg/dL Total Protein (6.2-8.2) g/dL Albumin (3.80-4.90) g/dL Globulin (1.6-3.3) g/dL 03/09/20 03/09/20 03/09/20 Range/Units 01:51 05:57 05:57 WBC 14.6 H (3.8-10.6) k/uL RBC 2.82 L (3.80-5.40) m/uL Hgb 8.4 L (11.4-16.0) gm/dL Hct 25.3 L (34.0-46.0) % RDW 16.1 H (11.5-15.5) % Neutrophils # (Manual) 13.72 H (1.3-7.7) k/uL Lymphocytes # (Manual) 0.29 L (1.0-4.8) k/uL Sodium 133 L (135-145) mmol/L Chloride 94 L (96-109) mmol/L Anion Gap 13.40 H (4.00-12.00) mmol/L BUN 77.0 H (9.0-27.0) mg/dL Creatinine 3.0 H (0.6-1.5) mg/dL Est GFR (CKD-EPI)AfAm 16.7 L (60.0-200.0) Est GFR (CKD-EPI)NonAf 14.4 L (60.0-200.0) BUN/Creatinine Ratio 25.67 H (12.00-20.00) Ratio POC Glucose (mg/dL) 131 H (75-99) mg/dL Calcium 8.5 L (8.7-10.3) mg/dL Total Protein 4.0 L (6.2-8.2) g/dL Albumin 2.80 L (3.80-4.90) g/dL Globulin 1.2 L (1.6-3.3) g/dL 03/09/20 03/09/20 Range/Units 06:51 11:53 WBC (3.8-10.6) k/uL RBC (3.80-5.40) m/uL Hgb (11.4-16.0) gm/dL Hct (34.0-46.0) % RDW (11.5-15.5) % Neutrophils # (Manual) (1.3-7.7) k/uL Lymphocytes # (Manual) (1.0-4.8) k/uL Sodium (135-145) mmol/L Chloride (96-109) mmol/L Anion Gap (4.00-12.00) mmol/L BUN (9.0-27.0) mg/dL Creatinine (0.6-1.5) mg/dL Est GFR (CKD-EPI)AfAm (60.0-200.0) Est GFR (CKD-EPI)NonAf (60.0-200.0) BUN/Creatinine Ratio (12.00-20.00) Ratio POC Glucose (mg/dL) 129 H 154 H (75-99) mg/dL Calcium (8.7-10.3) mg/dL Total Protein (6.2-8.2) g/dL Albumin (3.80-4.90) g/dL Globulin (1.6-3.3) g/dL Assessment and Plan Plan: Assessment: #1. Acute hypoxic respiratory failure secondary to debility of healthcare acquired pneumonia, recent required intubation and placement on mechanical ventilator, was successfully weaned and extubated on 02/25/2020, transfer out of intensive care unit on 02/26/2020. #2. Acute metabolic encephalopathy, improving #3. Acute urinary tract infection with urine cultures positive for pseudomonas aeruginosa, currently on meropenem #4. Acute kidney injury was initiated on renal replacement therapy On 03/07/2020 #6. Hypernatremia related to free water deficit, improved #7. Type 2 diabetes mellitus #8. Recent history of hospitalization related to COVID 19 related pneumonia, and GI bleeding #9. History of dysphagia requiring PEG tube placement #10. Dyslipidemia #11. History of chronic diastolic congestive heart failure #12. History of chronic GI blood loss and positive Hemoccult stools, exact etiology is not clear, to be investigated by gastroenterology #13. Chronic anemia possibly related to chronic renal failure #14. Generalized edema secondary to hypoalbuminemia #15. 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 #16. Fluid overload, anasarca, improving with hemodialysis Plan: Continue current medical treatment, patient's mentation improved with hemodialysis, yesterday chest x-ray showed improvement some bilateral infiltrates. FiO2, BiPAP support is needed, patient is much more awake and responsive on today's exam, continue tube feedings interstitial support, maintain aspiration precautions. Follow-up chest x-ray in the morning. We'll continue to follow I performed a history & physical examination of the patient and discussed their management with my nurse practitioner, Anna Brown. I reviewed the nurse practitioner's note and agree with the documented findings and plan of care. Lung sounds are positive for diminished breath sounds. The findings and the impression was discussed with the patient. I attest to the documentation by the nurse practitioner. Time with Patient: Less than 30
--- NOTE | 2020-03-09 16:32 | PN ---
PROGRESS NOTE DATE OF SERVICE: 03/09/2020 REASON FOR FOLLOWUP: Pseudomonas UTI and pneumonia. INTERVAL HISTORY: The patient is currently afebrile. The patient is currently undergoing hemodialysis. The patient is slightly sleepy, lethargic; did open eyes to the name but did not provide a reliable history. No vomiting, no diarrhea. No other changes reported by the nursing staff. PHYSICAL EXAMINATION: Blood pressure is 112/55 with a pulse of 107, temperature 97.9. She is 98% on 5 L nasal cannula. General description is an elderly female lying in bed in no distress. RESPIRATORY SYSTEM: Unlabored breathing. Clear to auscultation anteriorly. HEART: S1, S2. Regular rate and rhythm. ABDOMEN: Soft. No tenderness. EXTREMITIES: Trace edema of feet. LABS: Hemoglobin is 8.4, white count 14.6, BUN of 77, creatinine 3.0. DIAGNOSTIC IMPRESSION AND PLAN: Patient admitted to hospital with sepsis, multifactorial, in this patient who did have a component of urinary tract infection and pneumonia. Currently on meropenem; to continue while monitoring clinical course closely. Continue with supportive care. MMODL / IJN: [id number] /
[2020-03-09 18:11] LABS: Glucose,Whole Blood 150 mg/dL (75-99)
[2020-03-09 19:37] LABS: Glucose,Whole Blood 170 mg/dL (75-99)
[2020-03-09] MEDS: INSULIN DETEMIR (LEVEMIR) 100 UNIT/ML SYR SQ SCH (19:40)
[2020-03-10 00:12] LABS: Glucose,Whole Blood 153 mg/dL (75-99)
[2020-03-10] MEDS: INSULIN ASPART (NovoLOG) 100 UNIT/ML VIAL SQ SCH ×8 (00:14→16:47)
[2020-03-10 06:19] LABS: Glucose,Whole Blood 143 mg/dL (75-99)
[2020-03-10 06:57] LABS: Glucose,Whole Blood 133 mg/dL (75-99)
[2020-03-10] MEDS: HEPARIN SODIUM,PORCINE 5,000 UNIT/ML 1 ML VIAL SQ SCH ×2 (09:04→21:33)
[2020-03-10] MEDS: CHOLECALCIFEROL 25 MCG (1000 IU) TABLET PO SCH (09:30)
[2020-03-10] MEDS: MULTIVITAMINS, THERA 1 EACH TAB PO SCH (09:30)
[2020-03-10] MEDS: METOPROLOL TARTRATE 50 MG TAB PO SCH ×2 (09:30→16:10)
[2020-03-10] MEDS: ASCORBIC ACID 500 MG TAB PO SCH ×2 (09:30→21:24)
[2020-03-10] MEDS: SODIUM BICARBONATE TAB 650 MG TAB PO SCH ×2 (09:30→21:24)
[2020-03-10] MEDS: ZINC SULFATE 220 MG CAP PO SCH (09:30)
[2020-03-10] MEDS: FOLIC ACID 1 MG TAB PO SCH (09:30)
[2020-03-10] MEDS: BUDESONIDE 0.5 MG/2 ML NEBU INHALATION SCH ×2 (09:37→19:32)
[2020-03-10] MEDS: IPRATROPIUM-ALBUTEROL 3 ML NEB INHALATION SCH ×4 (09:37→19:32)
--- NOTE | 2020-03-10 10:07 | XR ---
EXAMINATION TYPE: XR chest 1V portable DATE OF EXAM: 03/10/2020 COMPARISON: 03/08/2020 INDICATION: Shortness of breath TECHNIQUE: Single frontal view of the chest is obtained. FINDINGS: The heart size is normal. The pulmonary vasculature is normal. Small left pleural effusion is present. Stranding is present in the upper lung kaiser bilaterally. Th is is more evident in the left upper lobe currently. Some developing atelectasis or pneumonia could b e considered. Increasing lung markings are at the right base as well. IMPRESSION: 1. Worsening nonspecific infiltrates with small increasing left pleural effusion. Continued follow-up is recommended.
--- NOTE | 2020-03-10 10:15 | P.PN ---
Subjective Progress Note Date: 03/10/20 Principal diagnosis: Acute hypoxic respiratory failure and acute healthcare acquired pneumonia This is a 75-year-old female, familiar to my service, patient was recently at [facility], and she was initially admitted on 01/05/20. She was eventually discharged to a rehab facility on 02/19/20. Patient had many medical problems during her last admission included acute GI bleeding, acute on chronic diastolic congestive heart failure, acute covid 19 pneumonitis, H influenza pneumonia, and recurrent urinary tract infection. chronic kidney disease, hypertension, hypoxic respiratory failure secondary to pneumonia, obesity with BMI of 35.9, patient required PEG tube placement while she was in the hospital. She was seen by many consultants during her last hospital admission. Patient was eventually discharged to rehab facility on 02/19/20. However the patient was in the rehab facility for less than one day, apparently she developed worsening mental status, worsening shortness of breath. Hence the patient was transferred to [facility] in [facility], admitted for few days, and she continued to worsen, there was a concern about ongoing GI blood losses and hemoglobin. There is also a concern about her worsening pulmonary status, patient was transferred to [facility] and this consult was initiated. Apparently the day of her transferred to [facility], patient was intubated and required mechanical ventilation. Upon my evaluation the patient today in the ICU, patient is on assist control rate of 14, tidal volume is 480, FiO2 45% and PEEP of 5. ABG showed a pO2 of 130 pCO2 of 33 pH of 7.47. After reviewing the ABG, her ventilator settings were changed to tolerate volume is 450 assist-control rate 18 and kept her on 45% FiO2. Chest x-ray showed minimal bilateral infiltrates. Urinalysis is consistent with pyuria and bacteriuria. Hemoglobin is noted to be 7.3. WBC count is 19.9. And BUN is 78 creatinine 1.47. Patient was empirically started on cefepime for presumptive urinary tract infection and pneumonia patient had previous pseudomonal urinary tract infection. Not much history could be obtained from the patient most of the information obtained so far is from the chart Patient was reevaluated today on 02/25/2020, remains in the ICU, intubated and mechanically ventilated. She is on assist control rate of 18 tidal volume 455- 45% PEEP of 5. ABG showed a pO2 of 166 pCO2 of 32 pH of 7.49. On propofol at 30 mcg/kg/m, IV fluid 0.9 normal saline at 65 mL per hour. Remains on enteral feeding. She is also on cefepime empirically for presumptive pneumonia and urinary tract infection. We'll culture so far is showing gram-negative bacilli. Labs today were reviewed, WBC count is 20.2 hemoglobin is 7.2. Basic metabolic profile is unremarkable except for BUN of 79 creatinine of 1.49. Chest x-ray showed multifocal infiltrates bilaterally. Reevaluated today on 02/26/2020, patient remains in the ICU, she was weaned and extubated yesterday. She is now on room air with O2 saturation 96%, IV fluid is at KVO, patient is in sinus rhythm, she is hemodynamically stable, urine culture s are positive for gram-negative bacilli, final identification is pending. Patient did receive 1 unit of blood since she was admitted to the hospital. No active bleeding is noted. Patient was extubated yesterday, and she seems to have tolerated the extubation quite well. My plan is to transfer the patient today to a regular medical floor. Continues to have leukocytosis with WBC count of 19.7. Renal functioning remains borderline, creatinine is 1.61. On 02/27/2020 patient seen in follow-up on medical floor, patient was transferred out of intensive care unit yesterday, on today's exam she is quite encephalopathic, she opens eyes to vigorous stimulation however she is not verbally responding, her pulse ox was 95% on room air, however she is tachypneic, and breathing very shallowly, vital signs have been stable, she's been afebrile. Today's chest x-ray has been reviewed showing worsening bilateral multifocal edema and/or infiltrates. Today's labs showed an increasing white count up to 21.8, from previous 19.7 on yesterday's labs, hemoglobin is 9.3, sodium is 150, potassium is 3.7, chloride is 112, anion gap has increased To 14.1, B1 is 90 creatinine is 2.0, renal function has worsened, patient is being nourished via her PEG tube, and is currently receiving Nepro tube feedings at 35, however she is only receiving 30 mL of free water through the PEG tube every 4 hours. She has not been able to take anything by mouth in view of current dysphagia and aspiration. Patient will be placed on BiPAP support. She is already on antibiotics for pseudomonal urinary tract infection. On 03/01/2020 patient seen in follow-up on general medical floor, she remains on BiPAP, currently with pressures of 12 over 4, and FiO2 of 28%, her pulse ox is 100%, she remains encephalopathic, drowsy, but opens eyes to voice, follows simple commands, but not consistently, appears weak. But no acute distress was noted, low-grade fever this afternoon, with a temp of 99.7F. Urine culture was positive for pseudomonas aeruginosa, blood cultures have been negative. Today's labs have been reviewed, there has been further worsening of her renal function, with B1 up to 104, and creatinine of 2.9, electrolytes were within normal limits. Patient is being nourished via her PEG tube, she is receiving Nepro at 35 ML per hour, and for water flushes at 300 mg every 4 hours. She remains on meropenem, ID service is following, he is on bronchodilators, she is on vitamin C, vitamin D, zinc supplement, and she is receiving half-normal saline at a rate of 50 ML per hour. On 03/02/2020 patient seen in follow-up on medical floor, mentation is improved today, more awake, responsive, she is currently off BiPAP, she is on 2 L of oxygen pulse ox of 90%, hemodynamically stable, she has been afebrile, hemodynamics she's been stable, chest x-ray today shows hypoventilatory changes, patchy peripheral interstitial infiltrates but are slowing improvement. Today's lab work is been reviewed, with blood cell count is 15.1, hemoglobin is 8.9, and nitrites within normal limits, renal profile has worsened, and BUN is 108, and creatinine is 3.2. He continues on meropenem, and she continues on half-normal seen at a rate of 50 ML per hour, she is receiving enteral feedings through her PEG tube. On 03/04/2020 patient seen in follow-up on medical floor, she is currently on BiPAP support, pressures of 12.4, and FiO2 of 20%, she is awake, seems to be breathing comfortably, she is answering simple questions, she denies any worsening dyspnea, no completes of chest pain. Lung sounds reveal diminished breath sounds bilaterally, no crackles or wheezing. Patient is tolerating tube feedings, however apparently she became very oliguric and she has only produced 20 mL of turbid looking urine in the last 12 hours. Nephrology is following, and considering hemodialysis initiation. Apparently Dr. Fine spoke to patient's daughter to discuss patient's condition and prognosis, and to discuss palliative care versus a full code and hemodialysis in the patient's daughter would like to continue with full CODE STATUS and will consider hemodialysis. For now she is breathing comfortably, however in view of worsening renal function she will likely require BiPAP support, and if respiratory status d eclines may need intubation. Last chest x-ray was done yesterday showing left greater than right multifocal acute infiltrates. She has significant amount of generalized swelling in upper and lower extremities. She is on tube feedings, with Nepro via her PEG tube at 35 with a goal of 35. Today's labs have been reviewed, showing white blood cell count of 15.1, hemoglobin is 7.6, sodium is 129, potassium is 4.4, B1 is 111, creatinine is 3.12 On 03/09/2020 is seen in follow-up on medical floor, much more awake today, she is disoriented to place and time, but able to answer simple questions, she is currently off BiPAP support, she is on 5 L of oxygen a pulse ox of 99%, she has been afebrile, she denies any shortness of breath, chest pain, no cough or congestion, she has been nothing by mouth, she is getting tube feedings with Nepro at 35 ML per hour, patient gets free water flushes per the PEG tube as well, abdomen is soft, patient has had no nausea vomiting or diarrhea. Ration had hemodialysis on 03/07/2020 with removal of 2.3 L of fluid and again yesterday on 03/08/2020 with removal of 2.3 L of fluid, generalized edema persists although improved. Lung sounds are diminished, no rhonchi or wheezing. These labs have been reviewed showing white blood cell count is relatively sta ble at 14.6, hemoglobin is 8.4, sodium is 133, potassium 3.9, chloride is 94, BUN is 77, creatinine is 3.0, renal profile has improved. Yesterday's chest x- ray showed bilateral interstitial infiltrates that were improved in the appearance On March 10, 2020 patient seen in follow-up on selective care unit, she was transferred to the monitored bed on selective care unit apparently related to requiring extensive assistance with all ADLs and the room better set up for hemodialysis. She is lethargic this morning, less responsive on today's exam that she was yesterday, however she does open her eyes to verbal stimulation, she is currently on BiPAP support of 12 over 4, and 28%, O2 saturation is 100%, appears to be breathing comfortably, no cough, lung sounds are clear, diminished at the bases, she had a hemodialysis session yesterday would removal of 3.2 L of fluid, fluid volume status has improved, her chest x-ray was stable bilateral interstitial infiltrates with improvement in lung volumes compared to previous exams. Lower extremity edema remains, swelling and upper arms has improved, patient remains on nutritional support with Nepro at 35. This membranes appear dry, patient has been nothing by mouth related to her altered mental status. Abdomen is soft, nontender. No new labs today, yesterday's labs showed improving renal profile. Vital signs have been stable, she's had no fever, she remains on meropenem for evidence of pseudomonal urinary tract infection Objective - Vital Signs Vital signs: Vital Signs Temp 98.8 F 03/10/20 08:00 Pulse 96 03/10/20 09:49 Resp 22 03/10/20 08:00 BP 95/67 03/10/20 08:00 Pulse Ox 100 03/10/20 08:00 Intake & Output 03/09/20 03/10/20 03/10/20 18:59 06:59 18:59 Intake Total 250 530 Output Total 3245 10 Balance -2995 520 Weight 113.5 kg Intake: Oral 0 Tube Feeding 250 530 Output: Urine 45 10 Uretheral (Pablo) 25 10 Stool 0 0 Hemodialysis 3200 Other: Voiding Method Indwelling Catheter Indwelling Catheter # Voids 1 - Exam GENERAL EXAM: On today's exam More somnolent but opens eyes to repeated verbal stimulation, back off to sleep 75-year-old white female, on BiPAP support with pressures of 12 over 4 and FiO2 of 28%, her pulse ox is 100% HEAD: Normocephalic/atraumatic. EYES: Normal reaction of pupils, equal size. Conjunctiva pink, sclera white. NOSE: Clear with pink turbinates. THROAT: No erythema or exudates. NECK: No masses, no JVD, no thyroid enlargement, no adenopathy. CHEST: No chest wall deformity. Symmetrical expansion. LUNGS: Equal air entry with diminished breath sounds, CVS: Regular rate and rhythm, normal S1 and S2, no gallops, no murmurs, no rubs ABDOMEN: Soft, nontender. No hepatosplenomegaly, normal bowel sounds, no guarding or rigidity. PEG tube is in place, and patient is receiving Nepro at 35 ML per hour, with 300 mL of water flushes every 4 hours EXTREMITIES: No clubbing, no edema, no cyanosis, 2+ pulses and upper and lower extremities. MUSCULOSKELETAL: Muscle strength and tone normal. SPINE: No scoliosis or deformity SKIN: No rashes CENTRAL NERVOUS SYSTEM: Drowsy, opens eyes but does not verbally respond. No focal deficits, tone is normal in all 4 extremities. - Labs CBC & Chem 7: 03/09/20 05:57 03/09/20 05:57 Labs: Abnormal Lab Results - Last 24 Hours (Table) 03/09/20 03/09/20 03/09/20 Range/Units 11:53 18:10 19:35 POC Glucose (mg/dL) 154 H 150 H 170 H (75-99) mg/dL 03/10/20 03/10/20 03/10/20 Range/Units 00:11 06:18 06:55 POC Glucose (mg/dL) 153 H 143 H 133 H (75-99) mg/dL Assessment and Plan Plan: Assessment: #1. Acute hypoxic respiratory failure secondary to debility of healthcare acquired pneumonia, recent required intubation and placement on mechanical ventilator, was successfully weaned and extubated on 02/25/2020, transfer out of intensive care unit on 02/26/2020. #2. Acute metabolic encephalopathy, waxing and waning #3. Acute urinary tract infection with urine cultures positive for pseudomonas aeruginosa, currently on meropenem #4. Acute kidney injury was initiated on renal replacement therapy On 03/07/2020 #6. Hypernatremia related to free water deficit, improved #7. Type 2 diabetes mellitus #8. Recent history of hospitalization related to COVID 19 related pneumonia, and GI bleeding #9. History of dysphagia requiring PEG tube placement #10. Dyslipidemia #11. History of chronic diastolic congestive heart failure #12. History of chronic GI blood loss and positive Hemoccult stools, exact etiology is not clear, to be investigated by gastroenterology #13. Chronic anemia possibly related to chronic renal failure #14. Generalized edema secondary to hypoalbuminemia #15. 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 #16. Fluid overload, anasarca, improving with hemodialysis Plan: Today's chest x-ray has been reviewed, continues to have interstitial infiltrates, but overall improved from couple of days ago, patient has been getting daily hemodialysis treatment, still significantly fluid overloaded, stable, patient has been afebrile, remains on meropenem for pseudomonal urinary tract infection, we'll send a urinalysis, maintain aspiration precautions, patient can be switched over to nasal cannula, BiPAP support as needed at bedtime as needed. Prognosis is extremely guarded. Continue to follow I performed a history & physical examination of the patient and discussed their management with my nurse practitioner, Anna Brown. I reviewed the nurse practitioner's note and agree with the documented findings and plan of care. Lung sounds are positive for diminished breath sounds. The findings and the impression was discussed with the patient. I attest to the documentation by the nurse practitioner. Time with Patient: Less than 30
[2020-03-10] MEDS: MEROPENEM 1 GM in SODIUM CHLORIDE 0.9% 100 ML IVPB SCH (10:58)
--- NOTE | 2020-03-10 11:32 | P.PN ---
Subjective Patient is seen in follow-up for acute kidney injury on chronic kidney disease. Patient has chronic kidney disease stage III with baseline creatinine near 1.5. Remains oliguric despite albumin and IV Lasix. Maintained on tube feeds. Quite edematous. Currently on 5 L nasal cannula. Started on hemodialysis March 07. Tolerated 3.2 L ultrafiltration yesterday. Vital signs are stable. General: The patient appeared well nourished and normally developed. HEENT: Head exam is unremarkable. Neck is without jugular venous distension. LUNGS: Breath sounds decreased. HEART: Rate and Rhythm are regular. ABDOMEN: Soft, nontender. EXTREMITITES: 2+ edema. Objective - Vital Signs Vital signs: Vital Signs Temp 99.5 F 03/10/20 11:03 Pulse 80 03/10/20 11:03 Resp 22 03/10/20 11:04 BP 113/72 03/10/20 11:03 Pulse Ox 100 03/10/20 11:04 Intake & Output 03/09/20 03/10/20 03/10/20 18:59 06:59 18:59 Intake Total 250 530 Output Total 3245 10 Balance -2995 520 Weight 113.5 kg 113.5 kg Intake: Oral 0 Tube Feeding 250 530 Output: Urine 45 10 Uretheral (Pablo) 25 10 Stool 0 0 Hemodialysis 3200 Other: Voiding Method Indwelling Catheter Indwelling Catheter # Voids 1 - Labs CBC & Chem 7: 03/09/20 05:57 03/09/20 05:57 Labs: Abnormal Lab Results - Last 24 Hours (Table) 03/09/20 03/09/20 03/09/20 Range/Units 11:53 18:10 19:35 POC Glucose (mg/dL) 154 H 150 H 170 H (75-99) mg/dL 03/10/20 03/10/20 03/10/20 Range/Units 00:11 06:18 06:55 POC Glucose (mg/dL) 153 H 143 H 133 H (75-99) mg/dL Assessment and Plan Plan: Assessment: 1. Chronic kidney disease stage IIIB secondary to nephrosclerosis with baseline creatinine near 1.5. No hydronephrosis noted on kidney ultrasound done in January 2020. Left kidney wasn't visualized. Right kidney was small in size. 2. Hypervolemic hyponatremia. Stable. 3. Anemia of chronic kidney disease. Maintained on Aranesp. Status post blood transfusion this admission. Stable. 4. Generalized edema partially due to hypoalbuminemia causing third spacing. 5. Diabetes mellitus. 6. Acute kidney injury secondary to ATN secondary to infection. Also component of cardiorenal. No evidence of hydronephrosis noted on kidney ultrasound. Renal function worsening. Creatinine peaked at 4.3 this admission. Started on hemodialysis March 07 due to volume overload and oliguria. Not on steroids. BUN elevated due to acute kidney injury as well as GI bleed. 7. UTI. Urine culture positive for Pseudomonas maintained on antibiotics. 8. Metabolic acidosis secondary to acute kidney injury. Maintained on oral bicarbonate. Better. Plan: Maintain tube feeding. Status post IV Lasix and IV albumin March 06. Avoid nephrotoxins. Continue to monitor renal function and urine output. Monitor hemoglobin and transfuse as needed. Hemodialysis today mostly for ultrafiltration. Continue with daily dialysis due to volume overload.
[2020-03-10 11:54] LABS: Glucose,Whole Blood 111 mg/dL (75-99)
--- NOTE | 2020-03-10 12:21 | P.CONS ---
History of Present Illness - Reason for Consult Consult date: 03/10/20 wound care - History of Present Illness this is a 75-year-old patient been seen on [facility] for nonhealing ulcerations to the sacrum posterior bilateral lower extremities. Patient has a stage II pressure ulcer to the sacrum cluster of 3 with fat layer exposure. Wound bed has significant slough throughout with ecchymosis and minimal granulation. Wound edges are attached to the wound base. There is no tunneling or under mining noted. The periwound shows excoriation and maceration. Bilateral posterior lower extremities have stage II pressure ulcers Limited to skin breakdown. They are weeping. Wound edges are attached no undermining or tunneling noted. Granulation seen throughout the wound with minimal slough no elbert. Patient is bedbound. She is currently on TPN. should past medical history significant for hyperlipidemia, hypertension, renal disease, anemia, chronic kidney disease to placement. She has never smoked. Denies diabetes. Review Of Systems: Integumentary:reports wounds, no lesions. No rash or pruritus. No unusual bruising. No change in hair or nails. Physical exam: General Appearance: Alert, cooperative, no distress, appears stated age. Skin: See HPI all other Skin color, texture, tugor normal, no rashes or lesions. Neurologic: Alert oriented x3 Past Medical History Past Medical History: Hyperlipidemia, Hypertension, Renal Disease Additional Past Medical History / Comment(s): Covid, Anemia ; Chronic kidney disease; ARDS History of Any Multi-Drug Resistant Organisms: None Reported Past Surgical History: Orthopedic Surgery Additional Past Surgical History / Comment(s): Peg tube Past Psychological History: No Psychological Hx Reported Smoking Status: Never smoker Past Alcohol Use History: None Reported Past Drug Use History: None Reported - Past Family History Father Family Medical History: Pulmonary Embolus Additional Family Medical History / Comment(s): Mother History Unknown: Yes Additional Family Medical History / Comment(s): " from old age" age 93 Daughter(s) Family Medical History: Hypertension Medications and Allergies Home Medications Medication Instructions Recorded Confirmed Type Albuterol Sulfate [Proventil Hfa] 1 puff INHALATION RT-Q6H PRN 01/05/20 02/24/20 History Ascorbic Acid [Vitamin C] 500 mg PO BID tab 01/29/20 02/24/20 Rx Cholecalciferol [Vitamin D3 (25 5,000 unit PO DAILY tab 01/29/20 02/24/20 Rx Mcg = 1000 Iu)] Insulin Detemir (Levemir) [Levemir] 10 unit SQ HS syr 01/29/20 02/24/20 Rx Zinc Sulfate [Orazinc] 220 mg PO DAILY cap 01/29/20 02/24/20 Rx Acetaminophen Tab [Tylenol] 650 mg PO Q6HR PRN 02/06/20 02/24/20 History Glucerna 1.2 Oren 240 ml PO QID@03,,,02/06/20 02/24/20 History Heparin Sodium,Porcine [Heparin 5,000 unit SQ BID@0800,2000 02/06/20 02/24/20 History Sodium] Loperamide [Imodium] 2 - 4 mg PO Q3H PRN 02/06/20 02/24/20 History Metoprolol Tartrate [Lopressor] 50 mg PO BID@0800,1600 02/06/20 02/24/20 History Folic Acid 1 mg PO DAILY@1200 tab 02/19/20 02/24/20 Rx Furosemide [Lasix] 40 mg PO BID #60 tablet 02/19/20 02/24/20 Rx Thiamine [Vitamin B-1] 100 mg PO DAILY@1200 tab 02/19/20 02/24/20 Rx INSULIN ASPART (NovoLOG) [NovoLOG 4 unit SQ ACHS 02/24/20 02/24/20 History (formulary)] Lansoprazole [Prevacid] 30 mg PO DAILY 02/24/20 02/24/20 History Multivitamins, Thera [Multivitamin 1 tab PO DAILY 02/24/20 02/24/20 History (formulary)] Ondansetron Odt [Zofran Odt] 4 mg PO Q4H PRN 02/24/20 02/24/20 History Allergies Allergy/AdvReac Type Severity Reaction Status Date / Time No Known Allergies Allergy Verified 02/24/20 08:25 Physical Exam Vitals: Vital Signs Temp Pulse Pulse Resp BP BP Pulse Ox 03/10/20 11:04 22 100 03/10/20 11:03 99.5 F 80 22 113/72 100 03/10/20 09:49 96 03/10/20 09:38 92 03/10/20 08:00 98.8 F 96 22 95/67 100 03/10/20 04:00 97.5 F L 90 28 H 97/63 97 03/10/20 01:26 109 H 28 H 03/09/20 20:35 103 H 03/09/20 20:21 103 H 03/09/20 20:00 98.0 F 112 H 26 H 110/76 94 L 03/09/20 16:10 98.2 F 114 H 27 H 114/65 03/09/20 15:52 123 H 03/09/20 15:43 123 H 03/09/20 14:00 97.9 F 18 112/55 98 Intake and Output 03/09/20 03/10/20 03/10/20 22:59 06:59 14:59 Intake Total 530 Output Total 3230 0 Balance -3230 530 Intake: Tube Feeding 530 Output: Urine 30 0 Uretheral (Pablo) 20 0 Stool 0 Hemodialysis 3200 Other: Voiding Method Indwelling Catheter Indwelling Catheter Weight 113.5 kg 113.5 kg Results CBC & Chem 7: 03/09/20 05:57 03/09/20 05:57 Labs: Abnormal Lab Results - Last 24 Hours (Table) 03/09/20 03/09/20 03/10/20 Range/Units 18:10 19:35 00:11 POC Glucose (mg/dL) 150 H 170 H 153 H (75-99) mg/dL 03/10/20 03/10/20 03/10/20 Range/Units 06:18 06:55 11:53 POC Glucose (mg/dL) 143 H 133 H 111 H (75-99) mg/dL Assessment and Plan (1) Pressure ulcer of sacral region, stage 2 Current Visit: No Status: Acute Code(s): L89.152 - PRESSURE ULCER OF SACRAL REGION, STAGE 2 SNOMED Code(s): 856390883 (2) Pressure ulcer of right leg, stage 2 Current Visit: Yes Status: Acute Code(s): L89.892 - PRESSURE ULCER OF OTHER SITE, STAGE 2 SNOMED Code(s): 481404035 (3) Pressure ulcer of left leg, stage 2 Current Visit: Yes Status: Acute Code(s): L89.892 - PRESSURE ULCER OF OTHER SITE, STAGE 2 SNOMED Code(s): 573656935 Plan: Apply honey alginate, seemingly moistened gauze, sacrum border foam. Utilize skin prep. turn to 2 hours. Assess the surface algorithm for appropriate surface. bilateral posterior lower extremities apply zinc barrier cream daily. Thank you for the consultation any questions was contacted wound care center DNP note has been reviewed and discussed with Dr. Desai and the impression and plan of care has been directed as dictated.
[2020-03-10] MEDS: MIDODRINE 5 MG TAB PO PRN ×2 (12:50→16:11)
[2020-03-10] MEDS: THIAMINE 100 MG TAB PO SCH (16:11)
--- NOTE | 2020-03-10 16:21 | PN ---
PROGRESS NOTE DATE OF SERVICE: 03/10/2020 REASON FOR FOLLOWUP: Pseudomonas UTI and possible pneumonia. INTERVAL HISTORY: The patient is currently afebrile. The patient remains slightly sleepy and lethargic. Hemodynamically stable, though. No diarrhea has been reported. No other changes. The patient herself was unable to provide any history. PHYSICAL EXAMINATION: BP 113/70 with a pulse of 80, temperature 99.5. She is 100% on 5 L. General description is an elderly female lying in bed in no distress. RESPIRATORY SYSTEM: Unlabored breathing with decreased intensity of breath sounds. No wheeze. HEART: S1, S2. Regular rate and rhythm. ABDOMEN: Soft. No tenderness. LABS: No new labs have been obtained today. DIAGNOSTIC IMPRESSION AND PLAN: Patient with Pseudomonas urinary tract infection and possible pneumonia that has been adequately treated. The patient has completed her meropenem therapy, which has been discontinued. The patient will be monitored closely off antibiotic therapy and continue supportive care. MMODL / IJN: [id number] /
[2020-03-10 16:24] LABS: Hepatitis A Antibody IgM Non-Reactive (Non-Reactive); Hepatitis B Core IgM Non-Reactive (Non-Reactive); Hepatitis B Surface Antigen Non-Reactive (Non-Reactive); Hepatitis C IgG Antibody Non-Reactive (Non-Reactive)
[2020-03-10 16:42] LABS: Glucose,Whole Blood 132 mg/dL (75-99)
[2020-03-10] MEDS: INSULIN DETEMIR (LEVEMIR) 100 UNIT/ML SYR SQ SCH (21:34)
--- NOTE | 2020-03-10 21:34 | P.PN ---
Subjective Progress Note Date: 03/08/20 Principal diagnosis: Acute hypoxic respiratory failure and acute healthcare acquired pneumonia patient is seen and evaluated in room with RN at bedside, patient was transferred out of intensive care unit yesterday; patient is quite encephalopathic and only opens eyes to vigorous stimulation however she is not verbally responding, her pulse ox was 95% on room air, however she is tachypneic, and breathing very shallowly, vital signs have been stable, she's been afebrile. chest x-ray has been reviewed showing worsening bilateral multifocal edema and/or infiltrates. Today's labs showed an increasing white count up to 21.8, from previous 19.7 on yesterday's labs, hemoglobin is 9.3, sodium is 150, potassium is 3.7, chloride is 112, anion gap has increased To 14.1, BUN is 90 creatinine is 2.0, renal function has worsened, patient is being nourished via her PEG tube, and is currently receiving Nepro tube feedings at 35, nephrology is following and have increased to 50 mL of free water through the PEG tube every 4 hours. She has not been able to take anything by mouth in view of current dysphagia and aspiration. Patient will be placed on BiPAP support. She is already on antibiotics for pseudomonal urinary tract infection. Called patient's daughter Char Morales at [phone] and give her a detailed account of patient's declining condition; daughter wants to continue with aggressive treatment that possible re-intubation if needed 02/28/2020 Patient is seen and follow-up on the regular medical floor. She continues to have issues with waxing and waning mentation. She remains on BiPAP 12/428% FiO2. Blood gases were drawn and a pO2 of 111, CO2 38 and a pH of 7.43. No evidence of hypercapnia or hypoxemia and sodium is improved to 141. Creatinine 2.04. White count 15.2. Hemoglobin 8.0. She is status post 1 unit of packed red blood cells this admission. She remains on DuoNeb inhalations, Pulmicort inhalations, antibiotics in the form of meropenem. Urine culture was positive for pseudomonas aeruginosa. Patient's oxygenation continues to wax and wane; ABGs done revealed pCO2 of 38; forming machine adjuster service recommending CT of the head without contrast with neurology consult 02/29/2020 Patient is seen and evaluated in follow-up on the regular medical floor. She does open her eyes to verbal stimuli. She is following some simple commands today. Computed tomography scan of the brain revealed no acute intracranial abnormalities. Await further recommendations from neurology She is remaining on BiPAP 12 over 4 and 28% FiO2. O2 saturations up to 100%. Blood glucose 118. Continued on bronchodilators and meropenem. 03/01/2020 Patient is currently lying in the bed remains on BiPAP. Patient is drowsy and lethargic and encephalopathic. Was able to open her eyes with verbal stimuli. Blood pressure is stable. Laboratory data showed sodium 142 and percussion 4.5, BUN 104 and creatinine 2.9 Patient is being continued on antibiotics in the form of meropenem for pseudomonas urinary tract infection. Patient is being continued on breathing treatments and Pulmicort inhalation. Pulmonary, ID and nephrology is on board 03/02/2020 Patient is currently on BiPAP. Saturating at 90% on 2 L oxygen. Next and chest x-ray showed hypoventilatory changes and patchy peripheral interstitial infiltrates with slow improvement. WBC 15.1, hemoglobin 8.9 and BUN 108 and creatinine 3.2. Patient is afebrile. Patient is on meropenem and is on IV hydration with half normal saline.. Currently on PEG tube feeding. 03/03/2020 Patient is on BiPAP 12 x 4. Patient is able to open her eyes. Afebrile. Laboratory data showed sodium 132, potassium 4.3, BUN 107 and creatinine 3.0 Continue on PEG feeding and supportive care. Chest x-ray showed no significant change. Pulmonary and nephrology is on board. 03/04/2020 Patient remained on BiPAP support with FiO2 28%. Patient is awake and open her eyes. Breathing comfortably at this time. Denied any complaints of chest pain. Tolerating PEG tube feeding. Otherwise laboratory data showed BUN 111 and creatinine 3.12. Nephrology is on board. patient's daughter wants to continue on full CODE STATUS. Considering hemodialysis as per nephrology. Laboratory data showed WBC 15.1, hemoglobin 7.6 and sodium 129 and potassium 4.4 Pulmonary and nephrology is on board. 03/05/2020 Patient is currently resting in the bed comfortably. On oxygen with another cannula. Patient has been afebrile. No complaints of chest pain or worsening shortness of breath. Chest x-ray showed left greater than right multifocal acute infiltrates on the background mild cardiomegaly and low lung volumes redemonstrated. Perhaps new mild interstitial edema and small to tiny left greater than right pleural effusions assisting fluid component on the background of chronic changes. Ultrasound of the abdomen showed evidence of chronic medical renal disease. No hydronephrosis noted bilaterally. Underlying cirrhosis and portal hypertension suspected. Patient was given a dose of IV Lasix. IV Fluids on hold. Laboratory data showed BUN 103 and creatinine 3.13 and calcium 7.4, sodium 129 and potassium 3.8 Nephrology and pulmonary is on board. Patient remained on antibiotics in form of meropenem. 03/06/2020 Patient is currently lying in the bed awake alert but not oriented. Currently on oxygen at 4 L via nasal cannula. Saturating at 90%. Continued on tube feeding. Patient does have very minimal urine output with creatinine level 3.48 and BUN 126. Patient is being followed by nephrology. Laboratory data showed sodium level 126 and potassium 4.8. Continue bronchodilators and DVT prophylaxis. Also on meropenem for Pseudomonas urinary tract infection. Pulmonary is on board. 03/07/2020 Patient is BiPAP now. Chest x-ray showed patchy densities in the bilateral lungs with bandlike areas of atelectasis. Patient remains afebrile. Tube feeding is being tolerated. Via PEG tube. Laboratory test showed sodium at 132, potassium 4.3 and BUN 141 creatinine 4.3. Patient does have very minimal urine output. Hemoglobin is 6.5 and is being transfused with 1 unit of PRBC. WBC 15.4. Nephrology is planning for hemodialysis and vascular surgery was consulted for Aden catheter placement. Prognosis remains poor at this time. Currently full code. 03/08/2020 Patient is currently BiPAP with FiO2 35%. Patient is able to open her eyes but could not communicate. Chest x-ray showed patchy bilateral pulmonary infiltrates and bandlike atelectasis in the right upper lobe. Nephrology is on board and started hemodialysis with 2 L fluid ultrafiltration. BUN 110 and creatinine 4.3. Urine output is minimal. Patient has been afebrile. Continued on insulin sliding scale for better blood sugar control. Current medications reviewed. Objective - Vital Signs Vital signs: Vital Signs Temp 98.2 F 03/08/20 12:26 Pulse 84 03/08/20 13:06 Resp 22 03/08/20 12:26 BP 109/60 03/08/20 12:26 Pulse Ox 100 03/08/20 07:26 Intake & Output 03/07/20 03/08/20 03/08/20 18:59 06:59 18:59 Intake Total 300 420 Output Total 2300 0 2322 Balance -1999 0 -1902 Weight 115 kg 113.5 kg Intake: Oral 0 Tube Feeding 120 Blood Product 0 Rc As-1 Unit 0 [id number] Hemodialysis 300 300 Output: Urine 0 20 Uretheral (Pablo) 0 20 Stool 2 Hemodialysis 2300 2300 Other: Voiding Method Indwelling Catheter Indwelling Catheter Indwelling Catheter # Bowel Movements 1 2 - Exam GENERAL EXAM: Quite drowsy, 75-year-old white female, on nasal cannula. Awake alert. on BIpap HEAD: Normocephalic/atraumatic. EYES: Normal reaction of pupils, equal size. Conjunctiva pink, sclera white. NOSE: Clear with pink turbinates. THROAT: No erythema or exudates. NECK: No masses, no JVD, no thyroid enlargement, no adenopathy. CHEST: No chest wall deformity. Symmetrical expansion. Bibasilar diminished air entry. LUNGS: Equal air entry with diminished breath sounds, CVS: Regular rate and rhythm, normal S1 and S2, no gallops, no murmurs, no rubs ABDOMEN: Soft, nontender. No hepatosplenomegaly, normal bowel sounds, no guarding or rigidity. EXTREMITIES: No clubbing, no edema, no cyanosis, 2+ pulses and upper and lower extremities. - Labs CBC & Chem 7: 03/09/20 05:57 03/09/20 05:57 Labs: Abnormal Lab Results - Last 24 Hours (Table) 03/05/20 03/07/20 03/07/20 Range/Units 11:26 05:12 10:41 WBC (3.8-10.6) k/uL RBC (3.80-5.40) m/uL Hgb (11.4-16.0) gm/dL Hct (34.0-46.0) % RDW (11.5-15.5) % Neutrophils # (Manual) (1.3-7.7) k/uL Lymphocytes # (Manual) (1.0-4.8) k/uL Eosinophils # (Manual) (0-0.7) k/uL Metamyelocytes # (Man) (0) k/uL Myelocytes # (Manual) (0) k/uL Sodium (135-145) mmol/L Anion Gap (4.00-12.00) mmol/L BUN 141.0 H* (9.0-27.0) mg/dL Creatinine (0.6-1.5) mg/dL Est GFR (CKD-EPI)AfAm (60.0-200.0) Est GFR (CKD-EPI)NonAf (60.0-200.0) BUN/Creatinine Ratio (12.00-20.00) Ratio Glucose (70-110) mg/dL POC Glucose (mg/dL) (75-99) mg/dL Calcium (8.7-10.3) mg/dL Total Protein (6.2-8.2) g/dL Albumin (3.80-4.90) g/dL Globulin (1.6-3.3) g/dL Hep Bs Antibody Reactive A (Non-Reactive) Crossmatch See Detail 03/07/20 03/08/20 03/08/20 Range/Units 17:46 00:13 03:24 WBC (3.8-10.6) k/uL RBC (3.80-5.40) m/uL Hgb (11.4-16.0) gm/dL Hct (34.0-46.0) % RDW (11.5-15.5) % Neutrophils # (Manual) (1.3-7.7) k/uL Lymphocytes # (Manual) (1.0-4.8) k/uL Eosinophils # (Manual) (0-0.7) k/uL Metamyelocytes # (Man) (0) k/uL Myelocytes # (Manual) (0) k/uL Sodium (135-145) mmol/L Anion Gap (4.00-12.00) mmol/L BUN (9.0-27.0) mg/dL Creatinine (0.6-1.5) mg/dL Est GFR (CKD-EPI)AfAm (60.0-200.0) Est GFR (CKD-EPI)NonAf (60.0-200.0) BUN/Creatinine Ratio (12.00-20.00) Ratio Glucose (70-110) mg/dL POC Glucose (mg/dL) 126 H 116 H 127 H (75-99) mg/dL Calcium (8.7-10.3) mg/dL Total Protein (6.2-8.2) g/dL Albumin (3.80-4.90) g/dL Globulin (1.6-3.3) g/dL Hep Bs Antibody (Non-Reactive) Crossmatch 03/08/20 03/08/20 03/08/20 Range/Units 05:49 06:34 06:34 WBC 14.0 H (3.8-10.6) k/uL RBC 2.67 L (3.80-5.40) m/uL Hgb 7.8 L (11.4-16.0) gm/dL Hct 24.1 L (34.0-46.0) % RDW 16.6 H (11.5-15.5) % Neutrophils # (Manual) 12.04 H (1.3-7.7) k/uL Lymphocytes # (Manual) 0.42 L (1.0-4.8) k/uL Eosinophils # (Manual) 0.84 H (0-0.7) k/uL Metamyelocytes # (Man) 0.14 H (0) k/uL Myelocytes # (Manual) 0.14 H (0) k/uL Sodium 134 L (135-145) mmol/L Anion Gap 13.10 H (4.00-12.00) mmol/L BUN 110.0 H* (9.0-27.0) mg/dL Creatinine 3.8 H (0.6-1.5) mg/dL Est GFR (CKD-EPI)AfAm 12.5 L (60.0-200.0) Est GFR (CKD-EPI)NonAf 10.8 L (60.0-200.0) BUN/Creatinine Ratio 28.95 H (12.00-20.00) Ratio Glucose 120 H (70-110) mg/dL POC Glucose (mg/dL) 115 H (75-99) mg/dL Calcium 8.4 L (8.7-10.3) mg/dL Total Protein 3.7 L (6.2-8.2) g/dL Albumin 2.60 L (3.80-4.90) g/dL Globulin 1.1 L (1.6-3.3) g/dL Hep Bs Antibody (Non-Reactive) Crossmatch Assessment and Plan Assessment: -Acute hypoxic respiratory failure/ secondary to sepsis and encephalopathy. Patient was extubated on 02/25/2020. Currently on BiPAP. Transition to nasal cannula. -Acute on Chronic kidney disease stage IIIB: Nephrology is following .Requiring hemodialysis started on 03/08/2020 Patient blood pressure is low normal at this time. Patient is also receiving epogen as per nephrology -Toxic encephalopathy: Secondary to sepsis most probably from urinary tract infection Pablo catheter will be changed patient has Pseudomonas in the urine patient is presently on Meropenem. -Pseudomonal UTI -Sepsis secondary to UTI -Type 2 diabetes mellitus. -Recent Covid 19 infection. -Hyperlipidemia -Dysphagia for which patient has a PEG tube -DVT prophylaxis: Subcutaneous heparin Time with Patient: Greater than 30
--- NOTE | 2020-03-10 21:36 | P.PN ---
Subjective Progress Note Date: 03/09/20 Principal diagnosis: Acute hypoxic respiratory failure and acute healthcare acquired pneumonia patient is seen and evaluated in room with RN at bedside, patient was transferred out of intensive care unit yesterday; patient is quite encephalopathic and only opens eyes to vigorous stimulation however she is not verbally responding, her pulse ox was 95% on room air, however she is tachypneic, and breathing very shallowly, vital signs have been stable, she's been afebrile. chest x-ray has been reviewed showing worsening bilateral multifocal edema and/or infiltrates. Today's labs showed an increasing white count up to 21.8, from previous 19.7 on yesterday's labs, hemoglobin is 9.3, sodium is 150, potassium is 3.7, chloride is 112, anion gap has increased To 14.1, BUN is 90 creatinine is 2.0, renal function has worsened, patient is being nourished via her PEG tube, and is currently receiving Nepro tube feedings at 35, nephrology is following and have increased to 50 mL of free water through the PEG tube every 4 hours. She has not been able to take anything by mouth in view of current dysphagia and aspiration. Patient will be placed on BiPAP support. She is already on antibiotics for pseudomonal urinary tract infection. Called patient's daughter Char Morales at [phone] and give her a detailed account of patient's declining condition; daughter wants to continue with aggressive treatment that possible re-intubation if needed 02/28/2020 Patient is seen and follow-up on the regular medical floor. She continues to have issues with waxing and waning mentation. She remains on BiPAP 12/428% FiO2. Blood gases were drawn and a pO2 of 111, CO2 38 and a pH of 7.43. No evidence of hypercapnia or hypoxemia and sodium is improved to 141. Creatinine 2.04. White count 15.2. Hemoglobin 8.0. She is status post 1 unit of packed red blood cells this admission. She remains on DuoNeb inhalations, Pulmicort inhalations, antibiotics in the form of meropenem. Urine culture was positive for pseudomonas aeruginosa. Patient's oxygenation continues to wax and wane; ABGs done revealed pCO2 of 38; field secretary service recommending CT of the head without contrast with neurology consult 02/29/2020 Patient is seen and evaluated in follow-up on the regular medical floor. She does open her eyes to verbal stimuli. She is following some simple commands today. Computed tomography scan of the brain revealed no acute intracranial abnormalities. Await further recommendations from neurology She is remaining on BiPAP 12 over 4 and 28% FiO2. O2 saturations up to 100%. Blood glucose 118. Continued on bronchodilators and meropenem. 03/01/2020 Patient is currently lying in the bed remains on BiPAP. Patient is drowsy and lethargic and encephalopathic. Was able to open her eyes with verbal stimuli. Blood pressure is stable. Laboratory data showed sodium 142 and percussion 4.5, BUN 104 and creatinine 2.9 Patient is being continued on antibiotics in the form of meropenem for pseudomonas urinary tract infection. Patient is being continued on breathing treatments and Pulmicort inhalation. Pulmonary, ID and nephrology is on board 03/02/2020 Patient is currently on BiPAP. Saturating at 90% on 2 L oxygen. Next and chest x-ray showed hypoventilatory changes and patchy peripheral interstitial infiltrates with slow improvement. WBC 15.1, hemoglobin 8.9 and BUN 108 and creatinine 3.2. Patient is afebrile. Patient is on meropenem and is on IV hydration with half normal saline.. Currently on PEG tube feeding. 03/03/2020 Patient is on BiPAP 12 x 4. Patient is able to open her eyes. Afebrile. Laboratory data showed sodium 132, potassium 4.3, BUN 107 and creatinine 3.0 Continue on PEG feeding and supportive care. Chest x-ray showed no significant change. Pulmonary and nephrology is on board. 03/04/2020 Patient remained on BiPAP support with FiO2 28%. Patient is awake and open her eyes. Breathing comfortably at this time. Denied any complaints of chest pain. Tolerating PEG tube feeding. Otherwise laboratory data showed BUN 111 and creatinine 3.12. Nephrology is on board. patient's daughter wants to continue on full CODE STATUS. Considering hemodialysis as per nephrology. Laboratory data showed WBC 15.1, hemoglobin 7.6 and sodium 129 and potassium 4.4 Pulmonary and nephrology is on board. 03/05/2020 Patient is currently resting in the bed comfortably. On oxygen with another cannula. Patient has been afebrile. No complaints of chest pain or worsening shortness of breath. Chest x-ray showed left greater than right multifocal acute infiltrates on the background mild cardiomegaly and low lung volumes redemonstrated. Perhaps new mild interstitial edema and small to tiny left greater than right pleural effusions assisting fluid component on the background of chronic changes. Ultrasound of the abdomen showed evidence of chronic medical renal disease. No hydronephrosis noted bilaterally. Underlying cirrhosis and portal hypertension suspected. Patient was given a dose of IV Lasix. IV Fluids on hold. Laboratory data showed BUN 103 and creatinine 3.13 and calcium 7.4, sodium 129 and potassium 3.8 Nephrology and pulmonary is on board. Patient remained on antibiotics in form of meropenem. 03/06/2020 Patient is currently lying in the bed awake alert but not oriented. Currently on oxygen at 4 L via nasal cannula. Saturating at 90%. Continued on tube feeding. Patient does have very minimal urine output with creatinine level 3.48 and BUN 126. Patient is being followed by nephrology. Laboratory data showed sodium level 126 and potassium 4.8. Continue bronchodilators and DVT prophylaxis. Also on meropenem for Pseudomonas urinary tract infection. Pulmonary is on board. 03/07/2020 Patient is BiPAP now. Chest x-ray showed patchy densities in the bilateral lungs with bandlike areas of atelectasis. Patient remains afebrile. Tube feeding is being tolerated. Via PEG tube. Laboratory test showed sodium at 132, potassium 4.3 and BUN 141 creatinine 4.3. Patient does have very minimal urine output. Hemoglobin is 6.5 and is being transfused with 1 unit of PRBC. WBC 15.4. Nephrology is planning for hemodialysis and vascular surgery was consulted for Aden catheter placement. Prognosis remains poor at this time. Currently full code. 03/08/2020 Patient is currently BiPAP with FiO2 35%. Patient is able to open her eyes but could not communicate. Chest x-ray showed patchy bilateral pulmonary infiltrates and bandlike atelectasis in the right upper lobe. Nephrology is on board and started hemodialysis with 2 L fluid ultrafiltration. BUN 110 and creatinine 4.3. Urine output is minimal. Patient has been afebrile. Continued on insulin sliding scale for better blood sugar control. 03/09/2020 Patient is more awake and alert today. Confused and disoriented otherwise. Able to answer simple questions. Currently on oxygen via nasal cannula at 5 L. Denied any complaints of chest pain or worsening shortness of breath. Patient is getting hemodialysis again today. Tolerating PEG tube feeding. Laboratory test showed WBC 14.4, hemoglobin 8.4 and platelets 257 Sodium 133 potassium 3.9 chloride 94 BUN 77 creatinine 3.0 Hepatitis panel negative. Nephrology on pulmonary is on board. Current medications reviewed. Objective - Vital Signs Vital signs: Vital Signs Temp 98.0 F 03/09/20 20:00 Pulse 103 H 03/09/20 20:35 Resp 26 H 03/09/20 20:00 BP 110/76 03/09/20 20:00 Pulse Ox 94 L 03/09/20 20:00 Intake & Output 03/09/20 03/09/20 03/10/20 06:59 18:59 06:59 Intake Total 470 250 Output Total 82 3245 10 Balance 388 -2995 -10 Weight 108.5 kg Intake: Oral 0 0 Tube Feeding 370 250 Other 100 Output: Urine 82 45 10 Uretheral (Pablo) 80 25 10 Stool 0 0 0 Hemodialysis 3200 Other: Voiding Method Indwelling Catheter Indwelling Catheter Indwelling Catheter # Voids 1 # Bowel Movements 2 - Exam GENERAL EXAM: Quite drowsy, 75-year-old white female, on nasal cannula. Awake alert. on BIpap HEAD: Normocephalic/atraumatic. EYES: Normal reaction of pupils, equal size. Conjunctiva pink, sclera white. NOSE: Clear with pink turbinates. THROAT: No erythema or exudates. NECK: No masses, no JVD, no thyroid enlargement, no adenopathy. CHEST: No chest wall deformity. Symmetrical expansion. Bibasilar diminished air entry. LUNGS: Equal air entry with diminished breath sounds, CVS: Regular rate and rhythm, normal S1 and S2, no gallops, no murmurs, no rubs ABDOMEN: Soft, nontender. No hepatosplenomegaly, normal bowel sounds, no guarding or rigidity. EXTREMITIES: No clubbing, no edema, no cyanosis, 2+ pulses and upper and lower extremities. - Labs CBC & Chem 7: 03/09/20 05:57 03/09/20 05:57 Labs: Abnormal Lab Results - Last 24 Hours (Table) 03/09/20 03/09/20 03/09/20 Range/Units 01:51 05:57 05:57 WBC 14.6 H (3.8-10.6) k/uL RBC 2.82 L (3.80-5.40) m/uL Hgb 8.4 L (11.4-16.0) gm/dL Hct 25.3 L (34.0-46.0) % RDW 16.1 H (11.5-15.5) % Neutrophils # (Manual) 13.72 H (1.3-7.7) k/uL Lymphocytes # (Manual) 0.29 L (1.0-4.8) k/uL Sodium 133 L (135-145) mmol/L Chloride 94 L (96-109) mmol/L Anion Gap 13.40 H (4.00-12.00) mmol/L BUN 77.0 H (9.0-27.0) mg/dL Creatinine 3.0 H (0.6-1.5) mg/dL Est GFR (CKD-EPI)AfAm 16.7 L (60.0-200.0) Est GFR (CKD-EPI)NonAf 14.4 L (60.0-200.0) BUN/Creatinine Ratio 25.67 H (12.00-20.00) Ratio POC Glucose (mg/dL) 131 H (75-99) mg/dL Calcium 8.5 L (8.7-10.3) mg/dL Total Protein 4.0 L (6.2-8.2) g/dL Albumin 2.80 L (3.80-4.90) g/dL Globulin 1.2 L (1.6-3.3) g/dL 03/09/20 03/09/20 03/09/20 Range/Units 06:51 11:53 18:10 WBC (3.8-10.6) k/uL RBC (3.80-5.40) m/uL Hgb (11.4-16.0) gm/dL Hct (34.0-46.0) % RDW (11.5-15.5) % Neutrophils # (Manual) (1.3-7.7) k/uL Lymphocytes # (Manual) (1.0-4.8) k/uL Sodium (135-145) mmol/L Chloride (96-109) mmol/L Anion Gap (4.00-12.00) mmol/L BUN (9.0-27.0) mg/dL Creatinine (0.6-1.5) mg/dL Est GFR (CKD-EPI)AfAm (60.0-200.0) Est GFR (CKD-EPI)NonAf (60.0-200.0) BUN/Creatinine Ratio (12.00-20.00) Ratio POC Glucose (mg/dL) 129 H 154 H 150 H (75-99) mg/dL Calcium (8.7-10.3) mg/dL Total Protein (6.2-8.2) g/dL Albumin (3.80-4.90) g/dL Globulin (1.6-3.3) g/dL 03/09/20 Range/Units 19:35 WBC (3.8-10.6) k/uL RBC (3.80-5.40) m/uL Hgb (11.4-16.0) gm/dL Hct (34.0-46.0) % RDW (11.5-15.5) % Neutrophils # (Manual) (1.3-7.7) k/uL Lymphocytes # (Manual) (1.0-4.8) k/uL Sodium (135-145) mmol/L Chloride (96-109) mmol/L Anion Gap (4.00-12.00) mmol/L BUN (9.0-27.0) mg/dL Creatinine (0.6-1.5) mg/dL Est GFR (CKD-EPI)AfAm (60.0-200.0) Est GFR (CKD-EPI)NonAf (60.0-200.0) BUN/Creatinine Ratio (12.00-20.00) Ratio POC Glucose (mg/dL) 170 H (75-99) mg/dL Calcium (8.7-10.3) mg/dL Total Protein (6.2-8.2) g/dL Albumin (3.80-4.90) g/dL Globulin (1.6-3.3) g/dL Assessment and Plan Assessment: -Acute hypoxic respiratory failure/ secondary to sepsis and encephalopathy. Patient was extubated on 02/25/2020. Currently on BiPAP. Transition to nasal cannula. -Acute on Chronic kidney disease stage IIIB: Nephrology is following .Requiring hemodialysis started on 03/07/2020 Patient blood pressure is low normal at this time. Patient is also receiving epogen as per nephrology -Toxic encephalopathy: Secondary to sepsis most probably from urinary tract infection Pablo catheter will be changed patient has Pseudomonas in the urine patient is presently on Meropenem. -Pseudomonal UTI -Sepsis secondary to UTI -Type 2 diabetes mellitus. -Recent Covid 19 infection. -Hyperlipidemia -Dysphagia for which patient has a PEG tube -DVT prophylaxis: Subcutaneous heparin Time with Patient: Greater than 30
--- NOTE | 2020-03-10 21:39 | P.PN ---
Subjective Progress Note Date: 03/10/20 Principal diagnosis: Acute hypoxic respiratory failure and acute healthcare acquired pneumonia patient is seen and evaluated in room with RN at bedside, patient was transferred out of intensive care unit yesterday; patient is quite encephalopathic and only opens eyes to vigorous stimulation however she is not verbally responding, her pulse ox was 95% on room air, however she is tachypneic, and breathing very shallowly, vital signs have been stable, she's been afebrile. chest x-ray has been reviewed showing worsening bilateral multifocal edema and/or infiltrates. Today's labs showed an increasing white count up to 21.8, from previous 19.7 on yesterday's labs, hemoglobin is 9.3, sodium is 150, potassium is 3.7, chloride is 112, anion gap has increased To 14.1, BUN is 90 creatinine is 2.0, renal function has worsened, patient is being nourished via her PEG tube, and is currently receiving Nepro tube feedings at 35, nephrology is following and have increased to 50 mL of free water through the PEG tube every 4 hours. She has not been able to take anything by mouth in view of current dysphagia and aspiration. Patient will be placed on BiPAP support. She is already on antibiotics for pseudomonal urinary tract infection. Called patient's daughter Char Morales at [phone] and give her a detailed account of patient's declining condition; daughter wants to continue with aggressive treatment that possible re-intubation if needed 02/28/2020 Patient is seen and follow-up on the regular medical floor. She continues to have issues with waxing and waning mentation. She remains on BiPAP 12/428% FiO2. Blood gases were drawn and a pO2 of 111, CO2 38 and a pH of 7.43. No evidence of hypercapnia or hypoxemia and sodium is improved to 141. Creatinine 2.04. White count 15.2. Hemoglobin 8.0. She is status post 1 unit of packed red blood cells this admission. She remains on DuoNeb inhalations, Pulmicort inhalations, antibiotics in the form of meropenem. Urine culture was positive for pseudomonas aeruginosa. Patient's oxygenation continues to wax and wane; ABGs done revealed pCO2 of 38; hospital insurance clerk service recommending CT of the head without contrast with neurology consult 02/29/2020 Patient is seen and evaluated in follow-up on the regular medical floor. She does open her eyes to verbal stimuli. She is following some simple commands today. Computed tomography scan of the brain revealed no acute intracranial abnormalities. Await further recommendations from neurology She is remaining on BiPAP 12 over 4 and 28% FiO2. O2 saturations up to 100%. Blood glucose 118. Continued on bronchodilators and meropenem. 03/01/2020 Patient is currently lying in the bed remains on BiPAP. Patient is drowsy and lethargic and encephalopathic. Was able to open her eyes with verbal stimuli. Blood pressure is stable. Laboratory data showed sodium 142 and percussion 4.5, BUN 104 and creatinine 2.9 Patient is being continued on antibiotics in the form of meropenem for pseudomonas urinary tract infection. Patient is being continued on breathing treatments and Pulmicort inhalation. Pulmonary, ID and nephrology is on board 03/02/2020 Patient is currently on BiPAP. Saturating at 90% on 2 L oxygen. Next and chest x-ray showed hypoventilatory changes and patchy peripheral interstitial infiltrates with slow improvement. WBC 15.1, hemoglobin 8.9 and BUN 108 and creatinine 3.2. Patient is afebrile. Patient is on meropenem and is on IV hydration with half normal saline.. Currently on PEG tube feeding. 03/03/2020 Patient is on BiPAP 12 x 4. Patient is able to open her eyes. Afebrile. Laboratory data showed sodium 132, potassium 4.3, BUN 107 and creatinine 3.0 Continue on PEG feeding and supportive care. Chest x-ray showed no significant change. Pulmonary and nephrology is on board. 03/04/2020 Patient remained on BiPAP support with FiO2 28%. Patient is awake and open her eyes. Breathing comfortably at this time. Denied any complaints of chest pain. Tolerating PEG tube feeding. Otherwise laboratory data showed BUN 111 and creatinine 3.12. Nephrology is on board. patient's daughter wants to continue on full CODE STATUS. Considering hemodialysis as per nephrology. Laboratory data showed WBC 15.1, hemoglobin 7.6 and sodium 129 and potassium 4.4 Pulmonary and nephrology is on board. 03/05/2020 Patient is currently resting in the bed comfortably. On oxygen with another cannula. Patient has been afebrile. No complaints of chest pain or worsening shortness of breath. Chest x-ray showed left greater than right multifocal acute infiltrates on the background mild cardiomegaly and low lung volumes redemonstrated. Perhaps new mild interstitial edema and small to tiny left greater than right pleural effusions assisting fluid component on the background of chronic changes. Ultrasound of the abdomen showed evidence of chronic medical renal disease. No hydronephrosis noted bilaterally. Underlying cirrhosis and portal hypertension suspected. Patient was given a dose of IV Lasix. IV Fluids on hold. Laboratory data showed BUN 103 and creatinine 3.13 and calcium 7.4, sodium 129 and potassium 3.8 Nephrology and pulmonary is on board. Patient remained on antibiotics in form of meropenem. 03/06/2020 Patient is currently lying in the bed awake alert but not oriented. Currently on oxygen at 4 L via nasal cannula. Saturating at 90%. Continued on tube feeding. Patient does have very minimal urine output with creatinine level 3.48 and BUN 126. Patient is being followed by nephrology. Laboratory data showed sodium level 126 and potassium 4.8. Continue bronchodilators and DVT prophylaxis. Also on meropenem for Pseudomonas urinary tract infection. Pulmonary is on board. 03/07/2020 Patient is BiPAP now. Chest x-ray showed patchy densities in the bilateral lungs with bandlike areas of atelectasis. Patient remains afebrile. Tube feeding is being tolerated. Via PEG tube. Laboratory test showed sodium at 132, potassium 4.3 and BUN 141 creatinine 4.3. Patient does have very minimal urine output. Hemoglobin is 6.5 and is being transfused with 1 unit of PRBC. WBC 15.4. Nephrology is planning for hemodialysis and vascular surgery was consulted for Aden catheter placement. Prognosis remains poor at this time. Currently full code. 03/08/2020 Patient is currently BiPAP with FiO2 35%. Patient is able to open her eyes but could not communicate. Chest x-ray showed patchy bilateral pulmonary infiltrates and bandlike atelectasis in the right upper lobe. Nephrology is on board and started hemodialysis with 2 L fluid ultrafiltration. BUN 110 and creatinine 4.3. Urine output is minimal. Patient has been afebrile. Continued on insulin sliding scale for better blood sugar control. 03/09/2020 Patient is more awake and alert today. Confused and disoriented otherwise. Able to answer simple questions. Currently on oxygen via nasal cannula at 5 L. Denied any complaints of chest pain or worsening shortness of breath. Patient is getting hemodialysis again today. Tolerating PEG tube feeding. Laboratory test showed WBC 14.4, hemoglobin 8.4 and platelets 257 Sodium 133 potassium 3.9 chloride 94 BUN 77 creatinine 3.0 Hepatitis panel negative. Nephrology on pulmonary is on board. 03/10/2020 Patient is encephalopathic and drowsy and lethargic today. Patient was started back on BiPAP yesterday and was transferred to telemetry unit. Currently on 28% FiO2 and saturating at 100%. Patient had 3.2 L of fluid ultrafiltration yesterday. Chest x-ray today showed worsening nonspecific infiltrates with small increasing left pleural effusion. Continued follow-up is recommended. Patient is PEG tube feeding. Patient is being continued on meropenem for Pseudomonas urinary tract infection. Current medications reviewed. Objective - Vital Signs Vital signs: Vital Signs Temp 97.9 F 03/10/20 18:05 Pulse 90 03/10/20 19:45 Resp 22 03/10/20 18:05 BP 119/83 03/10/20 19:05 Pulse Ox 100 03/10/20 16:43 Intake & Output 03/10/20 03/10/20 03/11/20 06:59 18:59 06:59 Intake Total 530 280 Output Total 10 2500 Balance 520 -2220 Weight 113.5 kg 113.5 kg Intake: Tube Feeding 530 280 Output: Urine 10 Uretheral (Pablo) 10 Stool 0 0 Hemodialysis 2500 Other: Voiding Method Indwelling Catheter Indwelling Catheter - Exam GENERAL EXAM: Quite drowsy, 75-year-old white female, on nasal cannula. Awake alert. lethargic . on BIpap HEAD: Normocephalic/atraumatic. EYES: Normal reaction of pupils, equal size. Conjunctiva pink, sclera white. NOSE: Clear with pink turbinates. THROAT: No erythema or exudates. NECK: No masses, no JVD, no thyroid enlargement, no adenopathy. CHEST: No chest wall deformity. Symmetrical expansion. Bibasilar diminished air entry. LUNGS: Equal air entry with diminished breath sounds, CVS: Regular rate and rhythm, normal S1 and S2, no gallops, no murmurs, no rubs ABDOMEN: Soft, nontender. No hepatosplenomegaly, normal bowel sounds, no guarding or rigidity. EXTREMITIES: No clubbing, no edema, no cyanosis, 2+ pulses and upper and lower extremities. - Labs CBC & Chem 7: 03/09/20 05:57 03/09/20 05:57 Labs: Abnormal Lab Results - Last 24 Hours (Table) 03/10/20 03/10/20 03/10/20 Range/Units 00:11 06:18 06:55 POC Glucose (mg/dL) 153 H 143 H 133 H (75-99) mg/dL 03/10/20 03/10/20 Range/Units 11:53 16:40 POC Glucose (mg/dL) 111 H 132 H (75-99) mg/dL Microbiology - Last 24 Hours (Table) 03/09/20 14:05 Blood Culture - Preliminary Blood No Growth after 24 hours Assessment and Plan Assessment: -Acute hypoxic respiratory failure/ secondary to sepsis and encephalopathy. Patient was extubated on 02/25/2020. Currently on BiPAP. Transition to nasal cannula. -Acute on Chronic kidney disease stage IIIB: Nephrology is following .Requiring hemodialysis started on 03/07/2020 Patient blood pressure is low normal at this time. Patient is also receiving epogen as per nephrology -Toxic encephalopathy: Secondary to sepsis most probably from urinary tract infection Pablo catheter will be changed patient has Pseudomonas in the urine patient is presently on Meropenem. -Pseudomonal UTI -Sepsis secondary to UTI -Type 2 diabetes mellitus. -Recent Covid 19 infection. -Hyperlipidemia -Dysphagia for which patient has a PEG tube - Decub ulcer stage II in the sacral region and bilateral heel area. -DVT prophylaxis: Subcutaneous heparin Time with Patient: Greater than 30
[2020-03-11 00:25] LABS: Glucose,Whole Blood 128 mg/dL (75-99)
[2020-03-11] MEDS: INSULIN ASPART (NovoLOG) 100 UNIT/ML VIAL SQ SCH ×8 (00:31→16:39)
[2020-03-11 05:55] LABS: Glucose,Whole Blood 112 mg/dL (75-99)
[2020-03-11 08:08] LABS: HCT 25.8 % (34.0-46.0); HGB 7.9 gm/dL (11.4-16.0); Hypochromasia Marked; MCH 29.1 pg (25.0-35.0); MCHC 30.8 g/dL (31.0-37.0); MCV 94.2 fL (80.0-100.0); Mean Platelet Volume 7.4; Platelet Count 266 k/uL (150-450); Poikilocytosis Slight; RBC 2.73 m/uL (3.80-5.40); RDW 15.8 % (11.5-15.5); WBC 13.7 k/uL (3.8-10.6)
[2020-03-11] MEDS: BUDESONIDE 0.5 MG/2 ML NEBU INHALATION SCH ×2 (08:24→19:41)
[2020-03-11] MEDS: IPRATROPIUM-ALBUTEROL 3 ML NEB INHALATION SCH ×4 (08:24→19:40)
[2020-03-11 08:27] LABS: Calcium 8.6 mg/dL (8.4-10.2); Potassium 3.4 mmol/L (3.5-5.1)
[2020-03-11] MEDS: CHOLECALCIFEROL 25 MCG (1000 IU) TABLET PO SCH (08:35)
[2020-03-11] MEDS: ZINC SULFATE 220 MG CAP PO SCH (08:36)
[2020-03-11] MEDS: ASCORBIC ACID 500 MG TAB PO SCH ×2 (08:36→23:19)
[2020-03-11] MEDS: THIAMINE 100 MG TAB PO SCH (08:36)
[2020-03-11] MEDS: SODIUM BICARBONATE TAB 650 MG TAB PO SCH ×2 (08:36→23:19)
[2020-03-11] MEDS: HEPARIN SODIUM,PORCINE 5,000 UNIT/ML 1 ML VIAL SQ SCH ×2 (08:36→23:18)
[2020-03-11] MEDS: MULTIVITAMINS, THERA 1 EACH TAB PO SCH (08:36)
[2020-03-11] MEDS: FOLIC ACID 1 MG TAB PO SCH (08:36)
[2020-03-11] MEDS: METOPROLOL TARTRATE 50 MG TAB PO SCH ×3 (08:37→16:27)
[2020-03-11] MEDS: MIDODRINE 5 MG TAB PO PRN ×2 (08:43→12:23)
[2020-03-11] MEDS ORDERED: POTASSIUM CHLORIDE ER 20 MEQ TAB.ER PO STA (09:18)
--- NOTE | 2020-03-11 09:21 | P.PN ---
Subjective Patient is seen in follow-up for acute kidney injury on chronic kidney disease. Patient has chronic kidney disease stage III with baseline creatinine near 1.5. Remains oliguric despite albumin and IV Lasix. Maintained on tube feeds. Edema improving with ultrafiltration. Currently on 5 L nasal cannula. Started on hemodialysis March 07. Tolerated 2.5 L ultrafiltration yesterday. Vital signs are stable. General: The patient appeared well nourished and normally developed. HEENT: Head exam is unremarkable. Neck is without jugular venous distension. LUNGS: Breath sounds decreased. HEART: Rate and Rhythm are regular. ABDOMEN: Soft, nontender. EXTREMITITES: 2+ edema. Objective - Vital Signs Vital signs: Vital Signs Temp 99.5 F 03/11/20 08:33 Pulse 96 03/11/20 08:38 Resp 16 03/11/20 08:33 BP 126/85 03/11/20 08:33 Pulse Ox 100 03/11/20 08:33 Intake & Output 03/10/20 03/11/20 03/11/20 18:59 06:59 18:59 Intake Total 280 595 Output Total 2500 0 Balance -2220 595 Weight 113.5 kg 110.9 kg Intake: Tube Feeding 280 595 Output: Urine 0 Stool 0 Hemodialysis 2500 Other: Voiding Method Indwelling Catheter Indwelling Catheter - Labs CBC & Chem 7: 03/11/20 07:26 03/11/20 07:26 Labs: Abnormal Lab Results - Last 24 Hours (Table) 03/10/20 03/10/20 03/11/20 Range/Units 11:53 16:40 00:23 WBC (3.8-10.6) k/uL RBC (3.80-5.40) m/uL Hgb (11.4-16.0) gm/dL Hct (34.0-46.0) % MCHC (31.0-37.0) g/dL RDW (11.5-15.5) % Sodium (137-145) mmol/L Potassium (3.5-5.1) mmol/L BUN (7-17) mg/dL Creatinine (0.52-1.04) mg/dL Glucose (74-99) mg/dL POC Glucose (mg/dL) 111 H 132 H 128 H (75-99) mg/dL 03/11/20 03/11/20 03/11/20 Range/Units 05:53 07:26 07:26 WBC 13.7 H (3.8-10.6) k/uL RBC 2.73 L (3.80-5.40) m/uL Hgb 7.9 L (11.4-16.0) gm/dL Hct 25.8 L (34.0-46.0) % MCHC 30.8 L (31.0-37.0) g/dL RDW 15.8 H (11.5-15.5) % Sodium 136 L (137-145) mmol/L Potassium 3.4 L (3.5-5.1) mmol/L BUN 46 H (7-17) mg/dL Creatinine 1.83 H (0.52-1.04) mg/dL Glucose 113 H (74-99) mg/dL POC Glucose (mg/dL) 112 H (75-99) mg/dL Microbiology - Last 24 Hours (Table) 03/09/20 14:05 Blood Culture - Preliminary Blood No Growth after 24 hours Assessment and Plan Plan: Assessment: 1. Chronic kidney disease stage IIIB secondary to nephrosclerosis with baseline creatinine near 1.5. No hydronephrosis noted on kidney ultrasound done in January 2020. Left kidney wasn't visualized. Right kidney was small in size. 2. Hypervolemic hyponatremia. Improved. 3. Anemia of chronic kidney disease. Maintained on Aranesp. Status post blood transfusion this admission. Stable. 4. Generalized edema partially due to hypoalbuminemia causing third spacing. Improving with ultrafiltration. 5. Diabetes mellitus. 6. Acute kidney injury secondary to ATN secondary to infection. Also component of cardiorenal. No evidence of hydronephrosis noted on kidney ultrasound. Renal function worsening. Creatinine peaked at 4.3 this admission. Started on hemodialysis March 07 due to volume overload and oliguria. 7. UTI. Urine culture positive for Pseudomonas s/p antibiotics. 8. Metabolic acidosis secondary to acute kidney injury. Maintained on oral bicarbonate. Plan: Maintain tube feeding. Status post IV Lasix and IV albumin March 06. Avoid nephrotoxins. Continue to monitor renal function and urine output. Monitor hemoglobin and transfuse as needed. Continue with daily dialysis mostly for ultrafiltration.
--- NOTE | 2020-03-11 10:07 | P.PN ---
Subjective Progress Note Date: 03/11/20 Principal diagnosis: Acute hypoxic respiratory failure and acute healthcare acquired pneumonia This is a 75-year-old female, familiar to my service, patient was recently at [facility], and she was initially admitted on 01/05/20. She was eventually discharged to a rehab facility on 02/19/20. Patient had many medical problems during her last admission included acute GI bleeding, acute on chronic diastolic congestive heart failure, acute covid 19 pneumonitis, H influenza pneumonia, and recurrent urinary tract infection. chronic kidney disease, hypertension, hypoxic respiratory failure secondary to pneumonia, obesity with BMI of 35.9, patient required PEG tube placement while she was in the hospital. She was seen by many consultants during her last hospital admission. Patient was eventually discharged to rehab facility on 02/19/20. However the patient was in the rehab facility for less than one day, apparently she developed worsening mental status, worsening shortness of breath. Hence the patient was transferred to [facility] in [facility], admitted for few days, and she continued to worsen, there was a concern about ongoing GI blood losses and hemoglobin. There is also a concern about her worsening pulmonary status, patient was transferred to [facility] and this consult was initiated. Apparently the day of her transferred to [facility], patient was intubated and required mechanical ventilation. Upon my evaluation the patient today in the ICU, patient is on assist control rate of 14, tidal volume is 480, FiO2 45% and PEEP of 5. ABG showed a pO2 of 130 pCO2 of 33 pH of 7.47. After reviewing the ABG, her ventilator settings were changed to tolerate volume is 450 assist-control rate 18 and kept her on 45% FiO2. Chest x-ray showed minimal bilateral infiltrates. Urinalysis is consistent with pyuria and bacteriuria. Hemoglobin is noted to be 7.3. WBC count is 19.9. And BUN is 78 creatinine 1.47. Patient was empirically started on cefepime for presumptive urinary tract infection and pneumonia patient had previous pseudomonal urinary tract infection. Not much history could be obtained from the patient most of the information obtained so far is from the chart Patient was reevaluated today on 02/25/2020, remains in the ICU, intubated and mechanically ventilated. She is on assist control rate of 18 tidal volume 455- 45% PEEP of 5. ABG showed a pO2 of 166 pCO2 of 32 pH of 7.49. On propofol at 30 mcg/kg/m, IV fluid 0.9 normal saline at 65 mL per hour. Remains on enteral feeding. She is also on cefepime empirically for presumptive pneumonia and urinary tract infection. We'll culture so far is showing gram-negative bacilli. Labs today were reviewed, WBC count is 20.2 hemoglobin is 7.2. Basic metabolic profile is unremarkable except for BUN of 79 creatinine of 1.49. Chest x-ray showed multifocal infiltrates bilaterally. Reevaluated today on 02/26/2020, patient remains in the ICU, she was weaned and extubated yesterday. She is now on room air with O2 saturation 96%, IV fluid is at KVO, patient is in sinus rhythm, she is hemodynamically stable, urine culture s are positive for gram-negative bacilli, final identification is pending. Patient did receive 1 unit of blood since she was admitted to the hospital. No active bleeding is noted. Patient was extubated yesterday, and she seems to have tolerated the extubation quite well. My plan is to transfer the patient today to a regular medical floor. Continues to have leukocytosis with WBC count of 19.7. Renal functioning remains borderline, creatinine is 1.61. On 02/27/2020 patient seen in follow-up on medical floor, patient was transferred out of intensive care unit yesterday, on today's exam she is quite encephalopathic, she opens eyes to vigorous stimulation however she is not verbally responding, her pulse ox was 95% on room air, however she is tachypneic, and breathing very shallowly, vital signs have been stable, she's been afebrile. Today's chest x-ray has been reviewed showing worsening bilateral multifocal edema and/or infiltrates. Today's labs showed an increasing white count up to 21.8, from previous 19.7 on yesterday's labs, hemoglobin is 9.3, sodium is 150, potassium is 3.7, chloride is 112, anion gap has increased To 14.1, B1 is 90 creatinine is 2.0, renal function has worsened, patient is being nourished via her PEG tube, and is currently receiving Nepro tube feedings at 35, however she is only receiving 30 mL of free water through the PEG tube every 4 hours. She has not been able to take anything by mouth in view of current dysphagia and aspiration. Patient will be placed on BiPAP support. She is already on antibiotics for pseudomonal urinary tract infection. On 03/01/2020 patient seen in follow-up on general medical floor, she remains on BiPAP, currently with pressures of 12 over 4, and FiO2 of 28%, her pulse ox is 100%, she remains encephalopathic, drowsy, but opens eyes to voice, follows simple commands, but not consistently, appears weak. But no acute distress was noted, low-grade fever this afternoon, with a temp of 99.7F. Urine culture was positive for pseudomonas aeruginosa, blood cultures have been negative. Today's labs have been reviewed, there has been further worsening of her renal function, with B1 up to 104, and creatinine of 2.9, electrolytes were within normal limits. Patient is being nourished via her PEG tube, she is receiving Nepro at 35 ML per hour, and for water flushes at 300 mg every 4 hours. She remains on meropenem, ID service is following, he is on bronchodilators, she is on vitamin C, vitamin D, zinc supplement, and she is receiving half-normal saline at a rate of 50 ML per hour. On 03/02/2020 patient seen in follow-up on medical floor, mentation is improved today, more awake, responsive, she is currently off BiPAP, she is on 2 L of oxygen pulse ox of 90%, hemodynamically stable, she has been afebrile, hemodynamics she's been stable, chest x-ray today shows hypoventilatory changes, patchy peripheral interstitial infiltrates but are slowing improvement. Today's lab work is been reviewed, with blood cell count is 15.1, hemoglobin is 8.9, and nitrites within normal limits, renal profile has worsened, and BUN is 108, and creatinine is 3.2. He continues on meropenem, and she continues on half-normal seen at a rate of 50 ML per hour, she is receiving enteral feedings through her PEG tube. On 03/04/2020 patient seen in follow-up on medical floor, she is currently on BiPAP support, pressures of 12.4, and FiO2 of 20%, she is awake, seems to be breathing comfortably, she is answering simple questions, she denies any worsening dyspnea, no completes of chest pain. Lung sounds reveal diminished breath sounds bilaterally, no crackles or wheezing. Patient is tolerating tube feedings, however apparently she became very oliguric and she has only produced 20 mL of turbid looking urine in the last 12 hours. Nephrology is following, and considering hemodialysis initiation. Apparently Dr. Fine spoke to patient's daughter to discuss patient's condition and prognosis, and to discuss palliative care versus a full code and hemodialysis in the patient's daughter would like to continue with full CODE STATUS and will consider hemodialysis. For now she is breathing comfortably, however in view of worsening renal function she will likely require BiPAP support, and if respiratory status d eclines may need intubation. Last chest x-ray was done yesterday showing left greater than right multifocal acute infiltrates. She has significant amount of generalized swelling in upper and lower extremities. She is on tube feedings, with Nepro via her PEG tube at 35 with a goal of 35. Today's labs have been reviewed, showing white blood cell count of 15.1, hemoglobin is 7.6, sodium is 129, potassium is 4.4, B1 is 111, creatinine is 3.12 On 03/09/2020 is seen in follow-up on medical floor, much more awake today, she is disoriented to place and time, but able to answer simple questions, she is currently off BiPAP support, she is on 5 L of oxygen a pulse ox of 99%, she has been afebrile, she denies any shortness of breath, chest pain, no cough or congestion, she has been nothing by mouth, she is getting tube feedings with Nepro at 35 ML per hour, patient gets free water flushes per the PEG tube as well, abdomen is soft, patient has had no nausea vomiting or diarrhea. Ration had hemodialysis on 03/07/2020 with removal of 2.3 L of fluid and again yesterday on 03/08/2020 with removal of 2.3 L of fluid, generalized edema persists although improved. Lung sounds are diminished, no rhonchi or wheezing. These labs have been reviewed showing white blood cell count is relatively sta ble at 14.6, hemoglobin is 8.4, sodium is 133, potassium 3.9, chloride is 94, BUN is 77, creatinine is 3.0, renal profile has improved. Yesterday's chest x- ray showed bilateral interstitial infiltrates that were improved in the appearance On March 10, 2020 patient seen in follow-up on selective care unit, she was transferred to the monitored bed on selective care unit apparently related to requiring extensive assistance with all ADLs and the room better set up for hemodialysis. She is lethargic this morning, less responsive on today's exam that she was yesterday, however she does open her eyes to verbal stimulation, she is currently on BiPAP support of 12 over 4, and 28%, O2 saturation is 100%, appears to be breathing comfortably, no cough, lung sounds are clear, diminished at the bases, she had a hemodialysis session yesterday would removal of 3.2 L of fluid, fluid volume status has improved, her chest x-ray was stable bilateral interstitial infiltrates with improvement in lung volumes compared to previous exams. Lower extremity edema remains, swelling and upper arms has improved, patient remains on nutritional support with Nepro at 35. This membranes appear dry, patient has been nothing by mouth related to her altered mental status. Abdomen is soft, nontender. No new labs today, yesterday's labs showed improving renal profile. Vital signs have been stable, she's had no fever, she remains on meropenem for evidence of pseudomonal urinary tract infection On 03/11/2020 patient seen in follow-up on selective care unit, she is a bit more awake on today's exam, although very confused, she is disoriented 3. 5 L of oxygen her pulse ox 100%, FiO2 is dropped down to 2 L, she is breathing comfortably, did not require BiPAP support overnight, lung sounds are clear, d iminished at the bases, patient is having another hemodialysis treatment today, she has been dialyzed every day for last 5 days, yesterday 300 mL of fluid was removed with hemodialysis, today's labs have been reviewed with blood cell count 13.7, hemoglobin is 7.9, file is improving, BUN is down to 46 and creatinine is 1.83, generalized edema has significantly improved, patient remains on tube feed ings with Nepro at 35 ML per hour tolerating them well, no nausea vomiting or diarrhea, yesterday's chest x-ray showed persistence of bilateral infiltrates with increasing left pleural effusion. Overall fluid balance status has improved. Objective - Vital Signs Vital signs: Vital Signs Temp 99.5 F 03/11/20 08:33 Pulse 96 03/11/20 08:38 Resp 16 03/11/20 08:33 BP 126/85 03/11/20 08:33 Pulse Ox 100 03/11/20 08:33 Intake & Output 03/10/20 03/11/20 03/11/20 18:59 06:59 18:59 Intake Total 280 595 Output Total 2500 0 Balance -2220 595 Weight 113.5 kg 110.9 kg Intake: Tube Feeding 280 595 Output: Urine 0 Stool 0 Hemodialysis 2500 Other: Voiding Method Indwelling Catheter Indwelling Catheter - Exam GENERAL EXAM: On today's exam, patient is more awake, but confused 75-year-old white female, on oxygen her pulse ox is 100% HEAD: Normocephalic/atraumatic. EYES: Normal reaction of pupils, equal size. Conjunctiva pink, sclera white. NOSE: Clear with pink turbinates. THROAT: No erythema or exudates. NECK: No masses, no JVD, no thyroid enlargement, no adenopathy. CHEST: No chest wall deformity. Symmetrical expansion. LUNGS: Equal air entry with diminished breath sounds, CVS: Regular rate and rhythm, normal S1 and S2, no gallops, no murmurs, no rubs ABDOMEN: Soft, nontender. No hepatosplenomegaly, normal bowel sounds, no guarding or rigidity. PEG tube is in place, and patient is receiving Nepro at 3 5 ML per hour, with 300 mL of water flushes every 4 hours EXTREMITIES: No clubbing, no edema, no cyanosis, 2+ pulses and upper and lower extremities. MUSCULOSKELETAL: Muscle strength and tone normal. SPINE: No scoliosis or deformity SKIN: No rashes CENTRAL NERVOUS SYSTEM: Drowsy, opens eyes but does not verbally respond. No focal deficits, tone is normal in all 4 extremities. - Labs CBC & Chem 7: 03/11/20 07:26 03/11/20 07:26 Labs: Abnormal Lab Results - Last 24 Hours (Table) 03/10/20 03/10/20 03/11/20 Range/Units 11:53 16:40 00:23 WBC (3.8-10.6) k/uL RBC (3.80-5.40) m/uL Hgb (11.4-16.0) gm/dL Hct (34.0-46.0) % MCHC (31.0-37.0) g/dL RDW (11.5-15.5) % Sodium (137-145) mmol/L Potassium (3.5-5.1) mmol/L BUN (7-17) mg/dL Creatinine (0.52-1.04) mg/dL Glucose (74-99) mg/dL POC Glucose (mg/dL) 111 H 132 H 128 H (75-99) mg/dL 03/11/20 03/11/20 03/11/20 Range/Units 05:53 07:26 07:26 WBC 13.7 H (3.8-10.6) k/uL RBC 2.73 L (3.80-5.40) m/uL Hgb 7.9 L (11.4-16.0) gm/dL Hct 25.8 L (34.0-46.0) % MCHC 30.8 L (31.0-37.0) g/dL RDW 15.8 H (11.5-15.5) % Sodium 136 L (137-145) mmol/L Potassium 3.4 L (3.5-5.1) mmol/L BUN 46 H (7-17) mg/dL Creatinine 1.83 H (0.52-1.04) mg/dL Glucose 113 H (74-99) mg/dL POC Glucose (mg/dL) 112 H (75-99) mg/dL Microbiology - Last 24 Hours (Table) 03/09/20 14:05 Blood Culture - Preliminary Blood No Growth after 24 hours Assessment and Plan Plan: Assessment: #1. Acute hypoxic respiratory failure secondary to debility of healthcare acquired pneumonia, recent required intubation and placement on mechanical ventilator, was successfully weaned and extubated on 02/25/2020, transfer out of intensive care unit on 02/26/2020. #2. Acute metabolic encephalopathy, waxing and waning #3. Acute urinary tract infection with urine cultures positive for pseudomonas aeruginosa, currently on meropenem #4. Acute kidney injury was initiated on renal replacement therapy On 03/07/2020, improving with daily hemodialysis #6. Hypernatremia related to free water deficit, improved #7. Type 2 diabetes mellitus #8. Recent history of hospitalization related to COVID 19 related pneumonia, and GI bleeding #9. History of dysphagia requiring PEG tube placement #10. Dyslipidemia #11. History of chronic diastolic congestive heart failure #12. History of chronic GI blood loss and positive Hemoccult stools, exact etiology is not clear, to be investigated by gastroenterology #13. Chronic anemia possibly related to chronic renal failure #14. Generalized edema secondary to hypoalbuminemia #15. 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 #16. Fluid overload, anasarca, improving with hemodialysis Plan: Weaning FiO2, 2 L, no evidence of respiratory distress, patient is more awake alert, although still confused. No fever or chills, overall fluid volume status is improving, patient is having on the hemodialysis treatment today, generalized edema has significantly improved, obtain follow-up chest x-ray tomorrow, continue tube feedings for nutritional support, renal profile is improving, nephrology is following, no evidence of respiratory difficulty, may discontinue BiPAP I performed a history & physical examination of the patient and discussed their management with my nurse practitioner, Anna Brown. I reviewed the nurse practitioner's note and agree with the documented findings and plan of care. Lung sounds are positive for diminished breath sounds. The findings and the impression was discussed with the patient. I attest to the documentation by the nurse practitioner. Time with Patient: Less than 30
[2020-03-11 11:08] LABS: Lymphocytes # (M) 0.14 k/uL (1.0-4.8); Monocytes # (M) 0.69 k/uL (0-1.0); Neutrophils # (M) 11.78 k/uL (1.3-7.7); Neutrophils % (M) 86 %; Nucleated Red Blood Cells 0 /100 WBC (0-0); Total Cells Counted 100
[2020-03-11 11:09] LABS: Poikilocytosis (M) Present; Polychromasia Present
[2020-03-11 11:10] LABS: Anisocytosis (M) Present
[2020-03-11 11:40] LABS: Glucose,Whole Blood 84 mg/dL (75-99)
[2020-03-11 16:39] LABS: Glucose,Whole Blood 136 mg/dL (75-99)
--- NOTE | 2020-03-11 21:49 | PN ---
PROGRESS NOTE DATE OF SERVICE: 03/11/2020 REASON FOR FOLLOWUP: UTI and pneumonia. INTERVAL HISTORY: The patient is currently afebrile. The patient is breathing comfortably, currently on nasal cannula oxygen. She was undergoing hemodialysis at the time of my evaluation. She was unable to provide a reliable history. No vomiting, diarrhea or any other changes reported. PHYSICAL EXAMINATION: Blood pressure 129/84, pulse of 79, temperature 99.1. She is 97% on room air. General description is an elderly female lying in bed in no distress. RESPIRATORY SYSTEM: Unlabored breathing. Clear to auscultation anteriorly. HEART: S1, S2. Regular rate and rhythm. ABDOMEN: Soft. No tenderness. LABS: Hemoglobin is 7.9, white count 13.7, BUN of 46, creatinine 1.83. DIAGNOSTIC IMPRESSION AND PLAN: Patient with pseudomonas urinary tract infection and pneumonia. Underlying infection has been adequately treated. The patient is currently being monitored closely off antibiotic therapy. White count is slightly elevated. Will continue to monitor. Continue with supportive care. MMODL / IJN: [id number] /
[2020-03-11] MEDS: INSULIN DETEMIR (LEVEMIR) 100 UNIT/ML SYR SQ SCH (23:19)
[2020-03-12 00:43] LABS: Glucose,Whole Blood 142 mg/dL (75-99)
[2020-03-12] MEDS: INSULIN ASPART (NovoLOG) 100 UNIT/ML VIAL SQ SCH ×9 (00:46→18:23)
--- NOTE | 2020-03-12 00:47 | P.PN ---
Subjective Progress Note Date: 03/11/20 Principal diagnosis: Acute hypoxic respiratory failure and acute healthcare acquired pneumonia Acute kidney injury requiring hemodialysis. patient is seen and evaluated in room with RN at bedside, patient was transferred out of intensive care unit yesterday; patient is quite enc ephalopathic and only opens eyes to vigorous stimulation however she is not verbally responding, her pulse ox was 95% on room air, however she is tachypneic, and breathing very shallowly, vital signs have been stable, she's been afebrile. chest x-ray has been reviewed showing worsening bilateral multifocal edema and/or infiltrates. Today's labs showed an increasing white count up to 21.8, from previous 19.7 on yesterday's labs, hemoglobin is 9.3, sodium is 150, potassium is 3.7, chloride is 112, anion gap has increased To 14.1, BUN is 90 creatinine is 2.0, renal function has worsened, patient is being nourished via her PEG tube, and is currently receiving Nepro tube feedings at 35, nephrology is following and have increased to 50 mL of free water through the PEG tube every 4 hours. She has not been able to take anything by mouth in view of current dysphagia and aspiration. Patient will be placed on BiPAP support. She is already on antibiotics for pseudomonal urinary tract infection. Called patient's daughter Char Morales at [phone] and give her a detailed account of patient's declining condition; daughter wants to continue with aggressive treatment that possible re-intubation if needed 02/28/2020 Patient is seen and follow-up on the regular medical floor. She continues to have issues with waxing and waning mentation. She remains on BiPAP 12/428% FiO2. Blood gases were drawn and a pO2 of 111, CO2 38 and a pH of 7.43. No evidence of hypercapnia or hypoxemia and sodium is improved to 141. Creatinine 2.04. White count 15.2. Hemoglobin 8.0. She is status post 1 unit of packed red blood cells this admission. She remains on DuoNeb inhalations, Pulmicort inhalations, antibiotics in the form of meropenem. Urine culture was positive for pseudomonas aeruginosa. Patient's oxygenation continues to wax and wane; ABGs done revealed pCO2 of 38; punch out crew member service recommending CT of the head without contrast with neurology consult 02/29/2020 Patient is seen and evaluated in follow-up on the regular medical floor. She does open her eyes to verbal stimuli. She is following some simple commands today. Computed tomography scan of the brain revealed no acute intracranial abnormalities. Await further recommendations from neurology She is remaining on BiPAP 12 over 4 and 28% FiO2. O2 saturations up to 100%. Blood glucose 118. Continued on bronchodilators and meropenem. 03/01/2020 Patient is currently lying in the bed remains on BiPAP. Patient is drowsy and lethargic and encephalopathic. Was able to open her eyes with verbal stimuli. Blood pressure is stable. Laboratory data showed sodium 142 and percussion 4.5, BUN 104 and creatinine 2.9 Patient is being continued on antibiotics in the form of meropenem for pseudomonas urinary tract infection. Patient is being continued on breathing treatments and Pulmicort inhalation. Pulmonary, ID and nephrology is on board 03/02/2020 Patient is currently on BiPAP. Saturating at 90% on 2 L oxygen. Next and chest x-ray showed hypoventilatory changes and patchy peripheral interstitial infiltrates with slow improvement. WBC 15.1, hemoglobin 8.9 and BUN 108 and creatinine 3.2. Patient is afebrile. Patient is on meropenem and is on IV hydration with half normal saline.. Currently on PEG tube feeding. 03/03/2020 Patient is on BiPAP 12 x 4. Patient is able to open her eyes. Afebrile. Laboratory data showed sodium 132, potassium 4.3, BUN 107 and creatinine 3.0 Continue on PEG feeding and supportive care. Chest x-ray showed no significant change. Pulmonary and nephrology is on board. 03/04/2020 Patient remained on BiPAP support with FiO2 28%. Patient is awake and open her eyes. Breathing comfortably at this time. Denied any complaints of chest pain. Tolerating PEG tube feeding. Otherwise laboratory data showed BUN 111 and creatinine 3.12. Nephrology is on board. patient's daughter wants to continue on full CODE STATUS. Considering hemodialysis as per nephrology. Laboratory data showed WBC 15.1, hemoglobin 7.6 and sodium 129 and potassium 4.4 Pulmonary and nephrology is on board. 03/05/2020 Patient is currently resting in the bed comfortably. On oxygen with another cannula. Patient has been afebrile. No complaints of chest pain or worsening shortness of breath. Chest x-ray showed left greater than right multifocal acute infiltrates on the background mild cardiomegaly and low lung volumes redemonstrated. Perhaps new mild interstitial edema and small to tiny left greater than right pleural effusions assisting fluid component on the background of chronic changes. Ultrasound of the abdomen showed evidence of chronic medical renal disease. No hydronephrosis noted bilaterally. Underlying cirrhosis and portal hypertension suspected. Patient was given a dose of IV Lasix. IV Fluids on hold. Laboratory data showed BUN 103 and creatinine 3.13 and calcium 7.4, sodium 129 and potassium 3.8 Nephrology and pulmonary is on board. Patient remained on antibiotics in form of meropenem. 03/06/2020 Patient is currently lying in the bed awake alert but not oriented. Currently on oxygen at 4 L via nasal cannula. Saturating at 90%. Continued on tube feeding. Patient does have very minimal urine output with creatinine level 3.48 and BUN 126. Patient is being followed by nephrology. Laboratory data showed sodium level 126 and potassium 4.8. Continue bronchodilators and DVT prophylaxis. Also on meropenem for Pseudomonas urinary tract infection. Pulmonary is on board. 03/07/2020 Patient is BiPAP now. Chest x-ray showed patchy densities in the bilateral lungs with bandlike areas of atelectasis. Patient remains afebrile. Tube feeding is being tolerated. Via PEG tube. Laboratory test showed sodium at 132, potassium 4.3 and BUN 141 creatinine 4.3. Patient does have very minimal urine output. Hemoglobin is 6.5 and is being transfused with 1 unit of PRBC. WBC 15.4. Nephrology is planning for hemodialysis and vascular surgery was consulted for Aden catheter placement. Prognosis remains poor at this time. Currently full code. 03/08/2020 Patient is currently BiPAP with FiO2 35%. Patient is able to open her eyes but could not communicate. Chest x-ray showed patchy bilateral pulmonary infiltrates and bandlike atelectasis in the right upper lobe. Nephrology is on board and started hemodialysis with 2 L fluid ultrafiltration. BUN 110 and creatinine 4.3. Urine output is minimal. Patient has been afebrile. Continued on insulin sliding scale for better blood sugar control. 03/09/2020 Patient is more awake and alert today. Confused and disoriented otherwise. Able to answer simple questions. Currently on oxygen via nasal cannula at 5 L. Denied any complaints of chest pain or worsening shortness of breath. Patient is getting hemodialysis again today. Tolerating PEG tube feeding. Laboratory test showed WBC 14.4, hemoglobin 8.4 and platelets 257 Sodium 133 potassium 3.9 chloride 94 BUN 77 creatinine 3.0 Hepatitis panel negative. Nephrology on pulmonary is on board. 03/10/2020 Patient is encephalopathic and drowsy and lethargic today. Patient was started back on BiPAP yesterday and was transferred to telemetry unit. Currently on 28% FiO2 and saturating at 100%. Patient had 3.2 L of fluid ultrafiltration yesterday. Chest x-ray today showed worsening nonspecific infiltrates with small increasing left pleural effusion. Continued follow-up is recommended. Patient is PEG tube feeding. Patient is being continued on meropenem for Pseudomonas urinary tract infection. 03/11/2020 Patient is currently resting in the bed comfortably. Seems to be more awake and alert today. Able to say simple words. Still disoriented otherwise. Patient is having another hemodialysis session today. Laboratory data showed WBC 13.7, hemoglobin 7.9 and platelets 266 Sodium 136 potassium 3.4 BUN 46 and creatinine 1.83 Patient has been afebrile currently oxygen via nasal cannula. Chest x-ray showed on 03/10/2020 worsening nonspecific infiltrates with small increasing left pleural effusion. Current medications reviewed. Objective - Vital Signs Vital signs: Vital Signs Temp 99.1 F 03/11/20 15:15 Pulse 79 03/11/20 19:41 Resp 18 03/11/20 16:00 BP 129/84 03/11/20 15:15 Pulse Ox 97 03/11/20 15:15 Intake & Output 03/11/20 03/11/20 03/12/20 06:59 18:59 06:59 Intake Total 595 870 Output Total 0 1999 Balance 595 -1130 Weight 110.9 kg Intake: Oral 30 Tube Feeding 595 840 Output: Urine 0 0 Stool 0 Hemodialysis 1999 Other: Voiding Method Indwelling Catheter Indwelling Catheter - Exam GENERAL EXAM: Quite drowsy, 75-year-old white female, on nasal cannula. Awake alert. Disoriented. On oxygen via nasal cannula. HEAD: Normocephalic/atraumatic. EYES: Normal reaction of pupils, equal size. Conjunctiva pink, sclera white. NOSE: Clear with pink turbinates. THROAT: No erythema or exudates. NECK: No masses, no JVD, no thyroid enlargement, no adenopathy. CHEST: No chest wall deformity. Symmetrical expansion. Bibasilar diminished air entry. LUNGS: Equal air entry with diminished breath sounds, CVS: Regular rate and rhythm, normal S1 and S2, no gallops, no murmurs, no rubs ABDOMEN: Soft, nontender. No hepatosplenomegaly, normal bowel sounds, no guarding or rigidity. EXTREMITIES: No clubbing, no edema, no cyanosis, 2+ pulses and upper and lower extremities. - Labs CBC & Chem 7: 03/11/20 07:26 03/11/20 07:26 Labs: Abnormal Lab Results - Last 24 Hours (Table) 03/11/20 03/11/20 03/11/20 Range/Units 00:23 05:53 07:26 WBC 13.7 H (3.8-10.6) k/uL RBC 2.73 L (3.80-5.40) m/uL Hgb 7.9 L (11.4-16.0) gm/dL Hct 25.8 L (34.0-46.0) % MCHC 30.8 L (31.0-37.0) g/dL RDW 15.8 H (11.5-15.5) % Neutrophils # (Manual) 11.78 H (1.3-7.7) k/uL Lymphocytes # (Manual) 0.14 L (1.0-4.8) k/uL Eosinophils # (Manual) 1.10 H (0-0.7) k/uL Sodium (137-145) mmol/L Potassium (3.5-5.1) mmol/L BUN (7-17) mg/dL Creatinine (0.52-1.04) mg/dL Glucose (74-99) mg/dL POC Glucose (mg/dL) 128 H 112 H (75-99) mg/dL 03/11/20 03/11/20 Range/Units 07:26 16:37 WBC (3.8-10.6) k/uL RBC (3.80-5.40) m/uL Hgb (11.4-16.0) gm/dL Hct (34.0-46.0) % MCHC (31.0-37.0) g/dL RDW (11.5-15.5) % Neutrophils # (Manual) (1.3-7.7) k/uL Lymphocytes # (Manual) (1.0-4.8) k/uL Eosinophils # (Manual) (0-0.7) k/uL Sodium 136 L (137-145) mmol/L Potassium 3.4 L (3.5-5.1) mmol/L BUN 46 H (7-17) mg/dL Creatinine 1.83 H (0.52-1.04) mg/dL Glucose 113 H (74-99) mg/dL POC Glucose (mg/dL) 136 H (75-99) mg/dL Microbiology - Last 24 Hours (Table) 03/09/20 14:05 Blood Culture - Preliminary Blood No Growth after 48 hours Assessment and Plan Assessment: -Acute hypoxic respiratory failure/ secondary to sepsis and encephalopathy. Patient was extubated on 02/25/2020. Currently on BiPAP. Transition to nasal cannula. -Acute on Chronic kidney disease stage IIIB: Nephrology is following .Requiring hemodialysis started on 03/07/2020 Patient blood pressure is low normal at this time. Patient is also receiving epogen as per nephrology -Toxic encephalopathy: Secondary to sepsis most probably from urinary tract infection Pablo catheter will be changed patient has Pseudomonas in the urine patient is presently on Meropenem. -Pseudomonal UTI -Sepsis secondary to UTI -Type 2 diabetes mellitus. -Recent Covid 19 infection. -Hyperlipidemia -Dysphagia for which patient has a PEG tube - Decub ulcer stage II in the sacral region and bilateral heel area. -DVT prophylaxis: Subcutaneous heparin Time with Patient: Greater than 30
[2020-03-12 06:02] LABS: Glucose,Whole Blood 138 mg/dL (75-99)
[2020-03-12] MEDS: IPRATROPIUM-ALBUTEROL 3 ML NEB INHALATION SCH ×4 (08:11→20:20)
[2020-03-12] MEDS: BUDESONIDE 0.5 MG/2 ML NEBU INHALATION SCH ×2 (08:11→20:20)
--- NOTE | 2020-03-12 08:12 | XR ---
EXAMINATION TYPE: XR chest 1V portable DATE OF EXAM: 03/12/2020 COMPARISON: 03/10/2020 HISTORY: Shortness of breath TECHNIQUE: Single frontal view of the chest is obtained. FINDINGS: Bilateral infiltrate and pleural effusion greater on the left stable. PICC line is also st able. No pneumothorax. Arthropathy of the shoulders. Heart size normal. Limited inspiration. IMPRESSION: 1. Stable bilateral pleural-parenchymal changes unchanged from the prior exam. Correlate for underlyi ng pneumonia.
[2020-03-12] MEDS: SODIUM BICARBONATE TAB 650 MG TAB PO SCH ×2 (08:40→21:28)
[2020-03-12] MEDS: ZINC SULFATE 220 MG CAP PO SCH (08:40)
[2020-03-12] MEDS: MULTIVITAMINS, THERA 1 EACH TAB PO SCH (08:41)
[2020-03-12] MEDS: ASCORBIC ACID 500 MG TAB PO SCH ×2 (08:41→21:28)
[2020-03-12] MEDS: CHOLECALCIFEROL 25 MCG (1000 IU) TABLET PO SCH (08:41)
[2020-03-12] MEDS: METOPROLOL TARTRATE 50 MG TAB PO SCH ×2 (08:41→16:58)
[2020-03-12] MEDS: HEPARIN SODIUM,PORCINE 5,000 UNIT/ML 1 ML VIAL SQ SCH ×2 (08:41→21:28)
--- NOTE | 2020-03-12 11:21 | P.PN ---
Subjective Patient is seen in follow-up for acute kidney injury on chronic kidney disease. Patient has chronic kidney disease stage III with baseline creatinine near 1.5. Remains oliguric despite albumin and IV Lasix. Maintained on tube feeds. Edema improving with ultrafiltration. Currently on room air. Started on hemodialysis March 07. Tolerated 2 L ultrafiltration yesterday. More awake and alert today. Vital signs are stable. General: The patient appeared well nourished and normally developed. HEENT: Head exam is unremarkable. Neck is without jugular venous distension. LUNGS: Breath sounds decreased. HEART: Rate and Rhythm are regular. ABDOMEN: Soft, nontender. EXTREMITITES: 2+ edema. Objective - Vital Signs Vital signs: Vital Signs Temp 99 F 03/12/20 08:00 Pulse 82 03/12/20 08:27 Resp 20 03/12/20 08:00 BP 127/79 03/12/20 08:00 Pulse Ox 98 03/12/20 08:00 Intake & Output 03/11/20 03/12/20 03/12/20 18:59 06:59 18:59 Intake Total 870 840 Output Total 2000 0 Balance -1130 840 Weight 108 kg Intake: Oral 30 Tube Feeding 840 840 Output: Urine 0 0 Stool 0 0 Hemodialysis 1999 Other: Voiding Method Indwelling Catheter Indwelling Catheter Indwelling Catheter - Labs CBC & Chem 7: 03/11/20 07:26 03/11/20 07:26 Labs: Abnormal Lab Results - Last 24 Hours (Table) 03/11/20 03/12/20 03/12/20 Range/Units 16:37 00:41 06:01 POC Glucose (mg/dL) 136 H 142 H 138 H (75-99) mg/dL Microbiology - Last 24 Hours (Table) 03/09/20 14:05 Blood Culture - Preliminary Blood No Growth after 48 hours Assessment and Plan Plan: Assessment: 1. Chronic kidney disease stage IIIB secondary to nephrosclerosis with baseline creatinine near 1.5. No hydronephrosis noted on kidney ultrasound done in January 2020. Left kidney wasn't visualized. Right kidney was small in size. 2. Hypervolemic hyponatremia. Improved. 3. Anemia of chronic kidney disease. Maintained on Aranesp. Status post blood transfusion this admission. Stable. 4. Generalized edema partially due to hypoalbuminemia causing third spacing. Improving with ultrafiltration. 5. Diabetes mellitus. 6. Acute kidney injury secondary to ATN secondary to infection. Also component of cardiorenal. No evidence of hydronephrosis noted on kidney ultrasound. Renal function worsening. Creatinine peaked at 4.3 this admission. Started on hemodialysis March 07 due to volume overload and oliguria. 7. UTI. Urine culture positive for Pseudomonas s/p antibiotics. 8. Metabolic acidosis secondary to acute kidney injury. Maintained on oral bicarbonate. Plan: Maintain tube feeding. Status post IV Lasix and IV albumin March 06. Avoid nephrotoxins. Continue to monitor renal function and urine output. Continue with daily dialysis mostly for ultrafiltration. manager field investigations setting up outpatient hemodialysis. Needs permacath insertion and removal of groin catheter prior to discharge.
[2020-03-12 11:35] LABS: Glucose,Whole Blood 107 mg/dL (75-99)
[2020-03-12] MEDS: THIAMINE 100 MG TAB PO SCH (12:24)
[2020-03-12] MEDS: FOLIC ACID 1 MG TAB PO SCH (12:24)
--- NOTE | 2020-03-12 12:51 | P.PN ---
Subjective Progress Note Date: 03/12/20 Principal diagnosis: Acute hypoxic respiratory failure secondary to acute healthcare acquired pneumonia This is a 75-year-old female, familiar to my service, patient was recently at [facility], and she was initially admitted on 01/05/20. She was eventually discharged to a rehab facility on 02/19/20. Patient had many medical problems during her last admission included acute GI bleeding, acute on chronic diastolic congestive heart failure, acute covid 19 pneumonitis, H influenza pneumonia, and recurrent urinary tract infection. chronic kidney disease, hypertension, hypoxic respiratory failure secondary to pneumonia, obesity with BMI of 35.9, patient required PEG tube placement while she was in the hospital. She was seen by many consultants during her last hospital admission. Patient was eventually discharged to rehab facility on 02/19/20. However the patient was in the rehab facility for less than one day, apparently she developed worsening mental status, worsening shortness of breath. Hence the patient was transferred to [facility] in [facility], admitted for few days, and she continued to worsen, there was a concern about ongoing GI blood losses and hemoglobin. There is also a concern about her worsening pulmonary status, patient was transferred to [facility] and this consult was initiated. Apparently the day of her transferred to [facility], patient was intubated and required mechanical ventilation. Upon my evaluation the patient today in the ICU, patient is on assist control rate of 14, tidal volume is 480, FiO2 45% and PEEP of 5. ABG showed a pO2 of 130 pCO2 of 33 pH of 7.47. After reviewing the ABG, her ventilator settings were changed to tolerate volume is 450 assist-control rate 18 and kept her on 45% FiO2. Chest x-ray showed minimal bilateral infiltrates. Urinalysis is consistent with pyuria and bacteriuria. Hemoglobin is noted to be 7.3. WBC count is 19.9. And BUN is 78 creatinine 1.47. Patient was empirically started on cefepime for presumptive urinary tract infection and pneumonia patient had previous pseudomonal urinary tract infection. Not much history could be obtained from the patient most of the information obtained so far is from the chart Patient was reevaluated today on 02/25/2020, remains in the ICU, intubated and mechanically ventilated. She is on assist control rate of 18 tidal volume 455- 45% PEEP of 5. ABG showed a pO2 of 166 pCO2 of 32 pH of 7.49. On propofol at 30 mcg/kg/m, IV fluid 0.9 normal saline at 65 mL per hour. Remains on enteral feeding. She is also on cefepime empirically for presumptive pneumonia and urinary tract infection. We'll culture so far is showing gram-negative bacilli. Labs today were reviewed, WBC count is 20.2 hemoglobin is 7.2. Basic metabolic profile is unremarkable except for BUN of 79 creatinine of 1.49. Chest x-ray showed multifocal infiltrates bilaterally. Reevaluated today on 02/26/2020, patient remains in the ICU, she was weaned and extubated yesterday. She is now on room air with O2 saturation 96%, IV fluid is at KVO, patient is in sinus rhythm, she is hemodynamically stable, urine cultures are positive for gram-negative bacilli, final identification is pending. Patient did receive 1 unit of blood since she was admitted to the hospital. No active bleeding is noted. Patient was extubated yesterday, and she seems to have tolerated the extubation quite well. My plan is to transfer the patient today to a regular medical floor. Continues to have leukocytosis with WBC count of 19.7. Renal functioning remains borderline, creatinine is 1.61. On 02/27/2020 patient seen in follow-up on medical floor, patient was transferred out of intensive care unit yesterday, on today's exam she is quite encephalopathic, she opens eyes to vigorous stimulation however she is not verba lly responding, her pulse ox was 95% on room air, however she is tachypneic, and breathing very shallowly, vital signs have been stable, she's been afebrile. Today's chest x-ray has been reviewed showing worsening bilateral multifocal edema and/or infiltrates. Today's labs showed an increasing white count up to 21.8, from previous 19.7 on yesterday's labs, hemoglobin is 9.3, sodium is 150, potassium is 3.7, chloride is 112, anion gap has increased To 14.1, B1 is 90 creatinine is 2.0, renal function has worsened, patient is being nourished via her PEG tube, and is currently receiving Nepro tube feedings at 35, however she is only receiving 30 mL of free water through the PEG tube every 4 hours. She has not been able to take anything by mouth in view of current dysphagia and aspiration. Patient will be placed on BiPAP support. She is already on antibiotics for pseudomonal urinary tract infection. The patient is seen today 07/28/2020 follow-up on the regular medical floor. She continues to have issues with waxing and waning mentation. She remains on BiPAP 12/428% FiO2. Blood gases were drawn and a pO2 of 111, CO2 38 and a pH of 7.43. No evidence of hypercapnia or hypoxemia and sodium is improved to 141. Creatinine 2.04. White count 15.2. Hemoglobin 8.0. She is status post 1 unit of packed red blood cells this admission. She remains on DuoNeb inhalations, Pulmicort inhalations, antibiotics in the form of meropenem. Urine culture was positive for pseudomonas aeruginosa. The patient is seen today 02/29/2020 in follow-up on the regular medical floor. She does open her eyes to verbal stimuli. She is following some simple commands today. Computed tomography scan of the brain revealed no acute intracranial abnormalities. She is remaining on BiPAP 12 over 4 and 28% FiO2. O2 saturations up to 100%. Blood glucose 118. Continued on bronchodilators and meropenem. The patient is seen today 03/03/2020 follow-up on the regular medical floor. She is currently resting fairly comfortably in bed. She is on BiPAP, 12 over 4 and 28% FiO2. O2 saturations remaining in the 90s. Arousable. Status post 1 unit of packed red blood cells this admission. Current hemoglobin 8.9. Sodium 132. Potassium 4.3. Bicarb 18. BUN 107. Creatinine 3.00. Remains on b ronchodilators, antibiotics in the form of meropenem. She's been initiated on a Lasix drip at 10 mg per hour. Minimal urine output. Chest x-ray continues to show multifocal acute infiltrates left greater than right, no significant change compared to previous. The patient is seen today 03/05/2020 follow-up on the regular medical floor. She is currently resting comfortably in bed. Maintaining O2 saturations up to 100% on 3 L/m per nasal cannula. She's afebrile. Hemodynamically stable. Sod ium 129. Potassium 3.8. BUN 103. Creatinine 3.13. Currently on 0.5% normal saline at 50 MLS per hour. Lasix drip has been discontinued. This x-ray continues to reveal left greater than right multifocal acute infiltrates on background mild cardiomegaly and low lung volumes. Mild interstitial edema and small tiny bilateral pleural effusions. Abdominal ultrasound reveals chronic medical renal disease. No hydronephrosis. Underlying cirrhosis and portal venous hypertension suspected. Mild ascites. Splenomegaly. She remains on meropenem, bronchodilators. The patient is seen today 03/06/2020 in follow-up on the regular medical floor. She is currently laying in bed. Awake and alert in no acute distress. Maintaining O2 saturations in the 90s on 4 L/m per nasal cannula. 2 feedings co ntinue. She's had very minimal urine output. Nephrology is following. To be given albumin today in addition to Lasix. Sodium 127. Potassium 4.8. BUN 126. Creatinine 3.48. Glucose 1:30. She remains on bronchodilators, meropenem, heparin for DVT prophylaxis. The patient is seen today 03/07/2020 follow-up on the regular medical floor. She is currently resting comfortably in bed. Awake and alert. On BiPAP 12 over 4 at 35% FiO2. O2 saturations up to 100%. Chest x-ray reveals patchy densities in the bilateral lungs with bandlike areas of atelectasis. She's afebrile. Hemodynamically stable. White count 15.4. Hemoglobin dropped to 6.5. Sodium 132. Potassium 4.3. Creatinine 4.3. 2 units of packed red blood cells have been ordered. She also stated have a dialysis catheter placed for renal replacement therapy. She remains on tube feedings via her PEG tube at 35 ML's which is called. The patient is seen today 03/12/2020 in follow-up on the regular medical floor. She is currently awake. Oriented times one. Her level of mentation continues to wax and wane. She has been maintaining good O2 saturations in the mid to upper 90s on room air. Chest x-ray reveals stable bilateral pleural parenchymal changes unchanged compared to previous. Urine cultures were positive for pseudomonas aeruginosa. Blood cultures revealed no growth. She did require 2 units of packed red blood cells this admission. Most recent hemoglobin 7.9. She remains on DuoNeb inhalations, Pulmicort. She is nourished via PEG tube feedings. Plan is for permacath placement for continued hemodialysis and subsequently transferred to [facility] Objective - Vital Signs Vital signs: Vital Signs Temp 99 F 03/12/20 08:00 Pulse 80 03/12/20 11:46 Resp 20 03/12/20 08:00 BP 127/79 03/12/20 08:00 Pulse Ox 98 03/12/20 08:00 Intake & Output 03/11/20 03/12/20 03/12/20 18:59 06:59 18:59 Intake Total 870 840 Output Total 1999 0 Balance -1130 840 Weight 108 kg Intake: Oral 30 Tube Feeding 840 840 Output: Urine 0 0 Stool 0 0 Hemodialysis 1999 Other: Voiding Method Indwelling Catheter Indwelling Catheter Indwelling Catheter - Exam GENERAL EXAM: Awake, alert, oriented times one, 75-year-old female patient, on room air with O2 saturations greater than 90%, currently comfortable in no apparent distress. HEAD: Normocephalic/atraumatic. EYES: Normal reaction of pupils, equal size. Conjunctiva pink, sclera white. NOSE: Clear with pink turbinates. THROAT: No erythema or exudates. NECK: No masses, no JVD, no thyroid enlargement, no adenopathy. CHEST: No chest wall deformity. Symmetrical expansion. LUNGS: Equal air entry with crackles in the bilateral posterior bases, diminished breath sounds, CVS: Regular rate and rhythm, normal S1 and S2, no gallops, no murmurs, no rubs ABDOMEN: Soft, nontender. No hepatosplenomegaly, normal bowel sounds, no guarding or rigidity. EXTREMITIES: No clubbing, 2+ edema, no cyanosis, 2+ pulses and upper and lower extremities. MUSCULOSKELETAL: Muscle strength and tone normal. SPINE: No scoliosis or deformity SKIN: No rashes or significant lower extremity edema CENTRAL NERVOUS SYSTEM: Mental status, continues to wax and wane. No focal deficits, tone is normal in all 4 extremities. - Labs CBC & Chem 7: 03/11/20 07:26 03/11/20 07:26 Labs: Abnormal Lab Results - Last 24 Hours (Table) 03/11/20 03/12/20 03/12/20 Range/Units 16:37 00:41 06:01 POC Glucose (mg/dL) 136 H 142 H 138 H (75-99) mg/dL 03/12/20 Range/Units 11:34 POC Glucose (mg/dL) 107 H (75-99) mg/dL Microbiology - Last 24 Hours (Table) 03/09/20 14:05 Blood Culture - Preliminary Blood No Growth after 48 hours Assessment and Plan Assessment: 1 Acute hypoxic respiratory failure secondary to debility of healthcare acquired pneumonia, recent required intubation and placement on mechanical ventilator, was successfully weaned and extubated on 02/25/2020, transfer out of intensive care unit on 02/26/2020. Currently on room air intermittently alternating with BiPAP 12 over 4 and 35% FiO2 with O2 saturations up to 100%. 2 Altered mental status of unclear etiology, computed tomography scan of the brain revealed no acute intracranial abnormalities, most likely toxic metabolic encephalopathy 3 Acute urinary tract infection with urine cultures positive for pseudomonas aeruginosa, completed a course of meropenem 4 Acute kidney injury, now receiving renal replacement therapy, current creatinine 1.83, plan is for permacath catheter placement and continued renal replacement therapy 6 Hyperkalemia related to free water deficit, improved 7 Type 2 diabetes mellitus 8 Recent history of hospitalization related to COVID 19 related pneumonia, and GI bleeding. Did require 2 units of packed red blood cells this admission. Current hemoglobin 7.9. 9 History of dysphagia requiring PEG tube placement 10 Dyslipidemia 11 History of chronic diastolic congestive heart failure 12 History of chronic GI blood loss and positive Hemoccult stools, exact etiology is not clear, to be investigated by gastroenterology 13 Chronic anemia possibly related to chronic renal failure, current hemoglobin 7.9 14 Generalized edema secondary to hypoalbuminemia 15 Severe sepsis, UTI secondary to pseudomonas aeruginosa. 16 Poor overall functional performance based on the above-mentioned multiple comorbidities Plan: The patient was seen and evaluated by Dr. Chavis Currently stable from the pulmonary standpoint, on room air with O2 saturations greater than 90% Alternate with BiPAP as needed To receive permacatheter for ongoing renal replacement therapy Her mentation continues to wax and wane Prognosis remains guarded and poor Plan is for transfer to [facility] upon discharge We will continue to follow and make further recommendations based on her clinical status I, the cosigning physician, performed a history & physical examination of the patient. Lungs sounds with faint crackles in the posterior bases. Maintaining good O2 saturations in the 90s on room air. I discussed the assessment and plan of care with my nurse practitioner, Candi Horton. I attest to the above note as dictated by her.
--- NOTE | 2020-03-12 16:28 | PN ---
PROGRESS NOTE DATE OF SERVICE: 03/12/2020 REASON FOR FOLLOWUP: UTI and pneumonia. INTERVAL HISTORY: The patient is currently afebrile. The patient is breathing comfortably on room air. She is undergoing dialysis and has been tolerating her dialysis so far. No vomiting, diarrhea or any other changes by the nursing staff. PHYSICAL EXAMINATION: Blood pressure 129/81 with a pulse of 87, temperature 98.9. She is 97% on room air. General description is an elderly female lying in bed in no distress. RESPIRATORY SYSTEM: Unlabored breathing, decreased breath sounds at the bases. No wheeze. HEART: S1, S2. Regular rate and rhythm. ABDOMEN: Soft. No tenderness. LABS: No new labs have been obtained today. DIAGNOSTIC IMPRESSION AND PLAN: Patient with Pseudomonas urinary tract infection with a component of pneumonia that has been adequately treated. The patient has completed her antibiotic therapy. The patient is currently being monitored closely off antibiotics. White count will be repeat tomorrow and continue with supportive care. MMODL / IJN: [id number] /
[2020-03-12 16:32] LABS: Glucose,Whole Blood 88 mg/dL (75-99)
[2020-03-12 18:17] LABS: Glucose,Whole Blood 173 mg/dL (75-99)
[2020-03-12 20:55] LABS: Glucose,Whole Blood 90 mg/dL (75-99)
[2020-03-12] MEDS: INSULIN DETEMIR (LEVEMIR) 100 UNIT/ML SYR SQ SCH (21:10)
[2020-03-12] MEDS: ACETAMINOPHEN ORAL SUSP (PEDS) 3,840 MG/120 ML BOTTLE PO PRN (23:32)
[2020-03-13 00:05] LABS: Glucose,Whole Blood 129 mg/dL (75-99)
[2020-03-13] MEDS: INSULIN ASPART (NovoLOG) 100 UNIT/ML VIAL SQ SCH ×10 (00:06→23:43)
[2020-03-13 06:16] LABS: Glucose,Whole Blood 167 mg/dL (75-99)
[2020-03-13] MEDS: MIDODRINE 5 MG TAB PO PRN (07:50)
[2020-03-13] MEDS: BUDESONIDE 0.5 MG/2 ML NEBU INHALATION SCH ×2 (07:58→20:08)
[2020-03-13] MEDS: IPRATROPIUM-ALBUTEROL 3 ML NEB INHALATION SCH ×4 (07:58→20:08)
--- NOTE | 2020-03-13 09:35 | P.PN ---
Subjective Progress Note Date: 03/13/20 Principal diagnosis: Acute hypoxic respiratory failure secondary to acute healthcare acquired pneumonia This is a 75-year-old female, familiar to my service, patient was recently at [facility], and she was initially admitted on 01/05/20. She was eventually discharged to a rehab facility on 02/19/20. Patient had many medical problems during her last admission included acute GI bleeding, acute on chronic diastolic congestive heart failure, acute covid 19 pneumonitis, H influenza pneumonia, and recurrent urinary tract infection. chronic kidney disease, hypertension, hypoxic respiratory failure secondary to pneumonia, obesity with BMI of 35.9, patient required PEG tube placement while she was in the hospital. She was seen by many consultants during her last hospital admission. Patient was eventually discharged to rehab facility on 02/19/20. However the patient was in the rehab facility for less than one day, apparently she developed worsening mental status, worsening shortness of breath. Hence the patient was transferred to [facility] in [facility], admitted for few days, and she continued to worsen, there was a concern about ongoing GI blood losses and hemoglobin. There is also a concern about her worsening pulmonary status, patient was transferred to [facility] and this consult was initiated. Apparently the day of her transferred to [facility], patient was intubated and required mechanical ventilation. Upon my evaluation the patient today in the ICU, patient is on assist control rate of 14, tidal volume is 480, FiO2 45% and PEEP of 5. ABG showed a pO2 of 130 pCO2 of 33 pH of 7.47. After reviewing the ABG, her ventilator settings were changed to tolerate volume is 450 assist-control rate 18 and kept her on 45% FiO2. Chest x-ray showed minimal bilateral infiltrates. Urinalysis is consistent with pyuria and bacteriuria. Hemoglobin is noted to be 7.3. WBC count is 19.9. And BUN is 78 creatinine 1.47. Patient was empirically started on cefepime for presumptive urinary tract infection and pneumonia patient had previous pseudomonal urinary tract infection. Not much history could be obtained from the patient most of the information obtained so far is from the chart Patient was reevaluated today on 02/25/2020, remains in the ICU, intubated and mechanically ventilated. She is on assist control rate of 18 tidal volume 455- 45% PEEP of 5. ABG showed a pO2 of 166 pCO2 of 32 pH of 7.49. On propofol at 30 mcg/kg/m, IV fluid 0.9 normal saline at 65 mL per hour. Remains on enteral feeding. She is also on cefepime empirically for presumptive pneumonia and urinary tract infection. We'll culture so far is showing gram-negative bacilli. Labs today were reviewed, WBC count is 20.2 hemoglobin is 7.2. Basic metabolic profile is unremarkable except for BUN of 79 creatinine of 1.49. Chest x-ray showed multifocal infiltrates bilaterally. Reevaluated today on 02/26/2020, patient remains in the ICU, she was weaned and extubated yesterday. She is now on room air with O2 saturation 96%, IV fluid is at KVO, patient is in sinus rhythm, she is hemodynamically stable, urine cultures are positive for gram-negative bacilli, final identification is pending. Patient did receive 1 unit of blood since she was admitted to the hospital. No active bleeding is noted. Patient was extubated yesterday, and she seems to have tolerated the extubation quite well. My plan is to transfer the patient today to a regular medical floor. Continues to have leukocytosis with WBC count of 19.7. Renal functioning remains borderline, creatinine is 1.61. On 02/27/2020 patient seen in follow-up on medical floor, patient was transferred out of intensive care unit yesterday, on today's exam she is quite encephalopathic, she opens eyes to vigorous stimulation however she is not verba lly responding, her pulse ox was 95% on room air, however she is tachypneic, and breathing very shallowly, vital signs have been stable, she's been afebrile. Today's chest x-ray has been reviewed showing worsening bilateral multifocal edema and/or infiltrates. Today's labs showed an increasing white count up to 21.8, from previous 19.7 on yesterday's labs, hemoglobin is 9.3, sodium is 150, potassium is 3.7, chloride is 112, anion gap has increased To 14.1, B1 is 90 creatinine is 2.0, renal function has worsened, patient is being nourished via her PEG tube, and is currently receiving Nepro tube feedings at 35, however she is only receiving 30 mL of free water through the PEG tube every 4 hours. She has not been able to take anything by mouth in view of current dysphagia and aspiration. Patient will be placed on BiPAP support. She is already on antibiotics for pseudomonal urinary tract infection. The patient is seen today 07/28/2020 follow-up on the regular medical floor. She continues to have issues with waxing and waning mentation. She remains on BiPAP 12/428% FiO2. Blood gases were drawn and a pO2 of 111, CO2 38 and a pH of 7.43. No evidence of hypercapnia or hypoxemia and sodium is improved to 141. Creatinine 2.04. White count 15.2. Hemoglobin 8.0. She is status post 1 unit of packed red blood cells this admission. She remains on DuoNeb inhalations, Pulmicort inhalations, antibiotics in the form of meropenem. Urine culture was positive for pseudomonas aeruginosa. The patient is seen today 02/29/2020 in follow-up on the regular medical floor. She does open her eyes to verbal stimuli. She is following some simple commands today. Computed tomography scan of the brain revealed no acute intracranial abnormalities. She is remaining on BiPAP 12 over 4 and 28% FiO2. O2 saturations up to 100%. Blood glucose 118. Continued on bronchodilators and meropenem. The patient is seen today 03/03/2020 follow-up on the regular medical floor. She is currently resting fairly comfortably in bed. She is on BiPAP, 12 over 4 and 28% FiO2. O2 saturations remaining in the 90s. Arousable. Status post 1 unit of packed red blood cells this admission. Current hemoglobin 8.9. Sodium 132. Potassium 4.3. Bicarb 18. BUN 107. Creatinine 3.00. Remains on b ronchodilators, antibiotics in the form of meropenem. She's been initiated on a Lasix drip at 10 mg per hour. Minimal urine output. Chest x-ray continues to show multifocal acute infiltrates left greater than right, no significant change compared to previous. The patient is seen today 03/05/2020 follow-up on the regular medical floor. She is currently resting comfortably in bed. Maintaining O2 saturations up to 100% on 3 L/m per nasal cannula. She's afebrile. Hemodynamically stable. Sod ium 129. Potassium 3.8. BUN 103. Creatinine 3.13. Currently on 0.5% normal saline at 50 MLS per hour. Lasix drip has been discontinued. This x-ray continues to reveal left greater than right multifocal acute infiltrates on background mild cardiomegaly and low lung volumes. Mild interstitial edema and small tiny bilateral pleural effusions. Abdominal ultrasound reveals chronic medical renal disease. No hydronephrosis. Underlying cirrhosis and portal venous hypertension suspected. Mild ascites. Splenomegaly. She remains on meropenem, bronchodilators. The patient is seen today 03/06/2020 in follow-up on the regular medical floor. She is currently laying in bed. Awake and alert in no acute distress. Maintaining O2 saturations in the 90s on 4 L/m per nasal cannula. 2 feedings co ntinue. She's had very minimal urine output. Nephrology is following. To be given albumin today in addition to Lasix. Sodium 127. Potassium 4.8. BUN 126. Creatinine 3.48. Glucose 1:30. She remains on bronchodilators, meropenem, heparin for DVT prophylaxis. The patient is seen today 03/07/2020 follow-up on the regular medical floor. She is currently resting comfortably in bed. Awake and alert. On BiPAP 12 over 4 at 35% FiO2. O2 saturations up to 100%. Chest x-ray reveals patchy densities in the bilateral lungs with bandlike areas of atelectasis. She's afebrile. Hemodynamically stable. White count 15.4. Hemoglobin dropped to 6.5. Sodium 132. Potassium 4.3. Creatinine 4.3. 2 units of packed red blood cells have been ordered. She also stated have a dialysis catheter placed for renal replacement therapy. She remains on tube feedings via her PEG tube at 35 ML's which is called. The patient is seen today 03/12/2020 in follow-up on the regular medical floor. She is currently awake. Oriented times one. Her level of mentation continues to wax and wane. She has been maintaining good O2 saturations in the mid to upper 90s on room air. Chest x-ray reveals stable bilateral pleural parenchymal changes unchanged compared to previous. Urine cultures were positive for pseudomonas aeruginosa. Blood cultures revealed no growth. She did require 2 units of packed red blood cells this admission. Most recent hemoglobin 7.9. She remains on DuoNeb inhalations, Pulmicort. She is nourished via PEG tube feedings. Plan is for permacath placement for continued hemodialysis and subsequently transferred to [facility]. The patient is seen today 03/13/20. She is currently awake. Oriented times one. Her level of mentation continues to wax and wane. She has been maintaining good O2 saturations in the mid to upper 90s on room air. Currently receiving hemodialysis. Urine cultures were positive for pseudomonas aeruginosa. Blood cultures revealed no growth. She did require 2 units of packed red blood cells this admission. Objective - Vital Signs Vital signs: Vital Signs Temp 97.6 F 03/13/20 07:50 Pulse 90 03/13/20 07:50 Resp 16 03/13/20 07:50 BP 130/75 03/13/20 07:50 Pulse Ox 99 03/13/20 07:50 Intake & Output 03/12/20 03/13/20 03/13/20 18:59 06:59 18:59 Intake Total 625 0 Output Total 2306 Balance -1681 0 Weight 105.1 kg Intake: Oral 325 0 Hemodialysis 300 Output: Urine 6 Hemodialysis 2300 Other: Voiding Method Indwelling Catheter Indwelling Catheter - Exam GENERAL EXAM: Awake, alert, oriented times one, 75-year-old female patient, on room air with O2 saturations greater than 90%, currently comfortable in no apparent distress. HEAD: Normocephalic/atraumatic. EYES: Normal reaction of pupils, equal size. Conjunctiva pink, sclera white. NOSE: Clear with pink turbinates. THROAT: No erythema or exudates. NECK: No masses, no JVD, no thyroid enlargement, no adenopathy. CHEST: No chest wall deformity. Symmetrical expansion. LUNGS: Equal air entry with crackles in the bilateral posterior bases, diminished breath sounds, CVS: Regular rate and rhythm, normal S1 and S2, no gallops, no murmurs, no rubs ABDOMEN: Soft, nontender. No hepatosplenomegaly, normal bowel sounds, no guarding or rigidity. EXTREMITIES: No clubbing, 2+ edema, no cyanosis, 2+ pulses and upper and lower extremities. MUSCULOSKELETAL: Muscle strength and tone normal. SPINE: No scoliosis or deformity SKIN: No rashes or significant lower extremity edema CENTRAL NERVOUS SYSTEM: Mental status, continues to wax and wane. No focal deficits, tone is normal in all 4 extremities. - Labs CBC & Chem 7: 03/11/20 07:26 03/11/20 07:26 Labs: Abnormal Lab Results - Last 24 Hours (Table) 03/12/20 03/12/20 03/13/20 Range/Units 11:34 18:15 00:03 POC Glucose (mg/dL) 107 H 173 H 129 H (75-99) mg/dL 03/13/20 Range/Units 06:15 POC Glucose (mg/dL) 167 H (75-99) mg/dL Microbiology - Last 24 Hours (Table) 03/09/20 14:05 Blood Culture - Preliminary Blood No Growth after 72 hours Assessment and Plan Assessment: 1 Acute hypoxic respiratory failure secondary to debility of healthcare acquired pneumonia, recent required intubation and placement on mechanical ventilator, was successfully weaned and extubated on 02/25/2020, transfer out of intensive care unit on 02/26/2020. Currently on room air intermittently alternating with BiPAP 12 over 4 and 35% FiO2 with O2 saturations up to 100%. 2 Altered mental status of unclear etiology, computed tomography scan of the brain revealed no acute intracranial abnormalities, most likely toxic metabolic encephalopathy 3 Acute urinary tract infection with urine cultures positive for pseudomonas aeruginosa, completed a course of meropenem 4 Acute kidney injury, now receiving renal replacement therapy, current creatinine 1.83, plan is for permacath catheter placement and continued renal replacement therapy 6 Hyperkalemia related to free water deficit, improved 7 Type 2 diabetes mellitus 8 Recent history of hospitalization related to COVID 19 related pneumonia, and GI bleeding. Did require 2 units of packed red blood cells this admission. Current hemoglobin 7.9. 9 History of dysphagia requiring PEG tube placement 10 Dyslipidemia 11 History of chronic diastolic congestive heart failure 12 History of chronic GI blood loss and positive Hemoccult stools, exact etiology is not clear, to be investigated by gastroenterology 13 Chronic anemia possibly related to chronic renal failure, current hemoglobin 7.9 14 Generalized edema secondary to hypoalbuminemia 15 Severe sepsis, UTI secondary to pseudomonas aeruginosa. 16 Poor overall functional performance based on the above-mentioned multiple comorbidities Plan: The patient was seen and evaluated by Dr. Chavis Currently stable from the pulmonary standpoint, on room air with O2 saturations greater than 90% Receiving hemodialysis today Prognosis remains guarded and poor Plan is for transfer to [facility] upon discharge We will follow as needed. I, the cosigning physician, performed a history & physical examination of the patient. Lungs sounds with faint crackles in the posterior bases. Maintaining good O2 saturations in the 90s on room air. I discussed the assessment and plan of care with my nurse practitioner, Candi Horton. I attest to the above note as dictated by her.
[2020-03-13 09:56] LABS: Calcium 8.5 mg/dL (8.4-10.2); Potassium 3.6 mmol/L (3.5-5.1)
[2020-03-13 10:05] LABS: HCT 24.1 % (34.0-46.0); HGB 7.5 gm/dL (11.4-16.0); Hypochromasia Moderate; MCH 28.3 pg (25.0-35.0); MCHC 31.3 g/dL (31.0-37.0); MCV 90.2 fL (80.0-100.0); Mean Platelet Volume 8.5; Platelet Count 243 k/uL (150-450); Poikilocytosis Slight; RBC 2.67 m/uL (3.80-5.40); RDW 15.6 % (11.5-15.5); WBC 11.2 k/uL (3.8-10.6)
[2020-03-13 10:19] LABS: Band Neutrophils % 1 %; Eosinophils # (M) 0.34 k/uL (0-0.7); Lymphocytes # (M) 0.34 k/uL (1.0-4.8); Metamyelocytes # (M) 0.11 k/uL (0); Metamyelocytes % 1 %; Monocytes # (M) 1.01 k/uL (0-1.0); Neutrophils % (M) 85 %; Nucleated Red Blood Cells 0 /100 WBC (0-0); Total Cells Counted 200
[2020-03-13] MEDS: METOPROLOL TARTRATE 50 MG TAB PO SCH ×2 (10:55→16:05)
[2020-03-13] MEDS: MULTIVITAMINS, THERA 1 EACH TAB PO SCH (10:56)
[2020-03-13] MEDS: ZINC SULFATE 220 MG CAP PO SCH (10:56)
[2020-03-13] MEDS: SODIUM BICARBONATE TAB 650 MG TAB PO SCH (10:56)
[2020-03-13] MEDS: ASCORBIC ACID 500 MG TAB PO SCH ×2 (10:56→21:37)
[2020-03-13] MEDS: CHOLECALCIFEROL 25 MCG (1000 IU) TABLET PO SCH (10:56)
[2020-03-13] MEDS: FOLIC ACID 1 MG TAB PO SCH (10:57)
[2020-03-13] MEDS: THIAMINE 100 MG TAB PO SCH (10:57)
[2020-03-13 11:51] LABS: Glucose,Whole Blood 128 mg/dL (75-99)
[2020-03-13] MEDS: HEPARIN SODIUM,PORCINE 5,000 UNIT/ML 1 ML VIAL SQ SCH ×2 (12:40→21:37)
[2020-03-13] MEDS ORDERED: LIDOCAINE 1% INJ 10MG/ML (20 ML MDV) SQ ONE ×3 (14:01→14:10)
[2020-03-13] MEDS ORDERED: fentaNYL (PF) 50 MCG/ML 2 ML AMP IV ONE (14:12)
--- NOTE | 2020-03-13 15:09 | PN ---
PROGRESS NOTE Patient is seen for followup for acute kidney injury. She remains hemodialysis dependent. The patient is being dialyzed. She has had very poor urine output. Volume status has improved. PHYSICAL EXAMINATION: On examination today, blood pressure was 126/77, heart rate 100 per minute, patient is afebrile. Examination of the heart S1, S2. Examination of the lungs, decreased breath sounds at bases. Abdomen is soft. Morbidly obese. Examination of lower extremities shows chronic skin changes. Edema has improved. EMBLEM MAKER exam shows patient is moving her upper extremities. She is not able to carry on a conversation. LAB: Show hemoglobin 7.5, sodium 136, potassium 3.6, BUN 30, creatinine 1.34. ASSESSMENT: 1. Acute kidney injury, currently hemodialysis dependent. Seen on hemodialysis, tolerating treatment well. 2. Significant hyperkalemia, now improved with dialysis. 3. Chronic kidney disease stage 3B, secondary to nephrosclerosis. Baseline creatinine around 1.5. No obstruction noted on ultrasound. Left kidney was not visualized and right kidney is on the smaller side. 4. Urinary tract infection with Pseudomonas, status post antibiotics. 5. Metabolic acidosis, improved with dialysis. PLAN: Discontinue sodium bicarb. Maintain renal replacement therapy. Overall prognosis is guarded. MMODL / IJN: [id number] /
--- NOTE | 2020-03-13 15:11 | XR ---
EXAMINATION TYPE: XR chest 1V portable DATE OF EXAM: 03/13/2020 COMPARISON: 03/12/2020 HISTORY: Catheter placement TECHNIQUE: FINDINGS: There is right jugular catheter with tip in the superior vena cava. There is some mild atel ectasis in the left midlung field. There is no heart failure. Heart is enlarged. There is significant arthritic disease in the shoulder joints. IMPRESSION: There is improvement in the atelectasis and pleural reaction in the left lung compared to yesterday.
--- NOTE | 2020-03-13 15:30 | PCN ---
PROCEDURE NOTE PREOPERATIVE DIAGNOSIS: Acute on chronic renal failure. POSTOPERATIVE DIAGNOSIS: Acute on chronic renal failure. PROCEDURE: 1. Ultrasound-guided 19 cm dialysis catheter placed right jugular approach. 2. Removal of the dialysis catheter right femoral approach. 3. SEDATION TIME: 20 minutes. PROCEDURE IN DETAIL: This patient was brought to the custodial laborer. Right chest and groin was prepped and draped in a sterile manner. 1% lidocaine plain infiltrated in the neck and chest area. After that, ultrasound-guided micropuncture into the right jugular vein. Micropuncture guidewire was passed and a 4 Macedonian dilator was advanced on top of the guidewire. After that a tunnel was created, through the tunnel we brought 19 cm dialysis catheter through the neck incision area. After that, dilator was advanced on top of the guidewire. Then sheath was advanced. Through the sheath we introduced the dialysis catheter. Tip of the catheter in superior vena cava, atrial junction. Flushed with heparin saline and secured with 3-0 nylon. Dressing applied. Patient tolerated the procedure well. MMODL / IJN: [id number] /
--- NOTE | 2020-03-13 16:27 | P.PN ---
Subjective Progress Note Date: 03/12/20 Principal diagnosis: Acute hypoxic respiratory failure and acute healthcare acquired pneumonia Acute kidney injury requiring hemodialysis. 02/27/2020 patient is seen and evaluated in room with RN at bedside, patient was transferred out of intensive care unit yesterday; patient is quite encephalopathic and only opens eyes to vigorous stimulation however she is not verbally responding, her pulse ox was 95% on room air, however she is tachypneic, and breathing very shallowly, vital signs have been stable, she's been afebrile. chest x-ray has been reviewed showing worsening bilateral multifocal edema and/or infiltrates. Today's labs showed an increasing white count up to 21.8, from previous 19.7 on yesterday's labs, hemoglobin is 9.3, sodium is 150, potassium is 3.7, chloride is 112, anion gap has increased To 14.1, BUN is 90 creatinine is 2.0, renal function has worsened, patient is being nourished via her PEG tube, and is currently receiving Nepro tube feedings at 35, nephrology is following and have increased to 50 mL of free water through the PEG tube every 4 hours. She has not been able to take anything by mouth in view of current dysphagia and aspiration. Patient will be placed on BiPAP support. She is already on antibiotics for pseudomonal urinary tract infection. Called patient's daughter Char Morales at [phone] and give her a detailed account of patient's declining condition; daughter wants to continue with aggressive treatment that possible re-intubation if needed 02/28/2020 Patient is seen and follow-up on the regular medical floor. She continues to have issues with waxing and waning mentation. She remains on BiPAP 12/428% FiO2. Blood gases were drawn and a pO2 of 111, CO2 38 and a pH of 7.43. No evidence of hypercapnia or hypoxemia and sodium is improved to 141. Creatinine 2.04. White count 15.2. Hemoglobin 8.0. She is status post 1 unit of packed red blood cells this admission. She remains on DuoNeb inhalations, Pulmicort inhalations, antibiotics in the form of meropenem. Urine culture was positive for pseudomonas aeruginosa. Patient's oxygenation continues to wax and wane; ABGs done revealed pCO2 of 38; telephone information clerk service recommending CT of the head without contrast with neurology consult 02/29/2020 Patient is seen and evaluated in follow-up on the regular medical floor. She does open her eyes to verbal stimuli. She is following some simple commands today. Computed tomography scan of the brain revealed no acute intracranial abnormalities. Await further recommendations from neurology She is remaining on BiPAP 12 over 4 and 28% FiO2. O2 saturations up to 100%. Blood glucose 118. Continued on bronchodilators and meropenem. 03/12/2020 Patient is seen and evaluated in follow-up on the regular medical floor. She is currently awake. Oriented times one. Her level of mentation continues to wax and wane. She has been maintaining good O2 saturations in the mid to upper 90s on room air. Chest x-ray reveals stable bilateral pleural parenchymal changes unchanged compared to previous. Urine cultures were positive for pseudomonas aeruginosa. Blood cultures revealed no growth. She did require 2 units of packed red blood cells this admission. Most recent hemoglobin 7.9. She remains on DuoNeb inhalations, Pulmicort. She is nourished via PEG tube feedings. Plan is for permacath placement for continued hemodialysis and subsequently transferred to [facility] Objective - Vital Signs Vital signs: Vital Signs Temp 99 F 03/12/20 08:00 Pulse 80 03/12/20 11:46 Resp 20 03/12/20 08:00 BP 127/79 03/12/20 08:00 Pulse Ox 98 03/12/20 08:00 Intake & Output 03/11/20 03/12/20 03/12/20 18:59 06:59 18:59 Intake Total 870 840 Output Total 1999 0 Balance -1130 840 Weight 108 kg Intake: Oral 30 Tube Feeding 840 840 Output: Urine 0 0 Stool 0 0 Hemodialysis 1999 Other: Voiding Method Indwelling Catheter Indwelling Catheter Indwelling Catheter - Exam GENERAL EXAM: Quite drowsy, 75-year-old white female, on room air, breathing shallowly, and respirations are tachypneic, daily responding to tactile s timulation HEAD: Normocephalic/atraumatic. EYES: Normal reaction of pupils, equal size. Conjunctiva pink, sclera white. NOSE: Clear with pink turbinates. THROAT: No erythema or exudates. NECK: No masses, no JVD, no thyroid enlargement, no adenopathy. CHEST: No chest wall deformity. Symmetrical expansion. LUNGS: Equal air entry with diminished breath sounds, CVS: Regular rate and rhythm, normal S1 and S2, no gallops, no murmurs, no rubs ABDOMEN: Soft, nontender. No hepatosplenomegaly, normal bowel sounds, no guarding or rigidity. EXTREMITIES: No clubbing, no edema, no cyanosis, 2+ pulses and upper and lower extremities. - Labs CBC & Chem 7: 03/11/20 07:26 03/11/20 07:26 Labs: Abnormal Lab Results - Last 24 Hours (Table) 03/11/20 03/12/20 03/12/20 Range/Units 16:37 00:41 06:01 POC Glucose (mg/dL) 136 H 142 H 138 H (75-99) mg/dL 03/12/20 Range/Units 11:34 POC Glucose (mg/dL) 107 H (75-99) mg/dL Microbiology - Last 24 Hours (Table) 03/09/20 14:05 Blood Culture - Preliminary Blood No Growth after 48 hours Assessment and Plan Assessment: -Acute hypoxic respiratory failure/ secondary to sepsis and encephalopathy. Patient was extubated on 02/25/2020 -Toxic encephalopathy: Secondary to sepsis most probably from urinary tract infection Pablo catheter will be changed patient has Pseudomonas in the urine patient is presently on cefepime although patient hasn't remitted susceptibility to cefepime as well as Zosyn. We will repeat urine analysis since the Pablo catheter was replaced patient may or may not need antibiotics we'll make the decision depending on urinalysis results. Infectious disease was consulted. -Pseudomonal UTI -Sepsis secondary to UTI -Chronic kidney disease: Nephrology is following the patient IV fluids as per nephrology. Patient blood pressure is low normal at this time. Patient is also receiving albumin aspirin nephrology -Type 2 diabetes mellitus. -Recent Covid 19 infection. -Hyperlipidemia -Dysphagia for which patient has a PEG tube -DVT prophylaxis: Subcutaneous heparin
--- NOTE | 2020-03-13 16:29 | P.PN ---
Subjective Progress Note Date: 03/13/20 Principal diagnosis: Acute hypoxic respiratory failure and acute healthcare acquired pneumonia Acute kidney injury requiring hemodialysis. 02/27/2020 patient is seen and evaluated in room with RN at bedside, patient was transferred out of intensive care unit yesterday; patient is quite encephalopathic and only opens eyes to vigorous stimulation however she is not verbally responding, her pulse ox was 95% on room air, however she is tachypneic, and breathing very shallowly, vital signs have been stable, she's been afebrile. chest x-ray has been reviewed showing worsening bilateral multifocal edema and/or infiltrates. Today's labs showed an increasing white count up to 21.8, from previous 19.7 on yesterday's labs, hemoglobin is 9.3, sodium is 150, potassium is 3.7, chloride is 112, anion gap has increased To 14.1, BUN is 90 creatinine is 2.0, renal function has worsened, patient is being nourished via her PEG tube, and is currently receiving Nepro tube feedings at 35, nephrology is following and have increased to 50 mL of free water through the PEG tube every 4 hours. She has not been able to take anything by mouth in view of current dysphagia and aspiration. Patient will be placed on BiPAP support. She is already on antibiotics for pseudomonal urinary tract infection. Called patient's daughter Char Morales at [phone] and give her a detailed account of patient's declining condition; daughter wants to continue with aggressive treatment that possible re-intubation if needed 02/28/2020 Patient is seen and follow-up on the regular medical floor. She continues to have issues with waxing and waning mentation. She remains on BiPAP 12/428% FiO2. Blood gases were drawn and a pO2 of 111, CO2 38 and a pH of 7.43. No evidence of hypercapnia or hypoxemia and sodium is improved to 141. Creatinine 2.04. White count 15.2. Hemoglobin 8.0. She is status post 1 unit of packed red blood cells this admission. She remains on DuoNeb inhalations, Pulmicort inhalations, antibiotics in the form of meropenem. Urine culture was positive for pseudomonas aeruginosa. 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 She does open her eyes to verbal stimuli. She is following some simple commands today. Computed tomography scan of the brain revealed no acute intracranial abnormalities. Await further recommendations from neurology She is remaining on BiPAP 12 over 4 and 28% FiO2. O2 saturations up to 100%. Blood glucose 118. Continued on bronchodilators and meropenem. 03/12/2020 Patient is seen and evaluated in follow-up on the regular medical floor. She is currently awake. Oriented times one. Her level of mentation continues to wax and wane. She has been maintaining good O2 saturations in the mid to upper 90s on room air. Chest x-ray reveals stable bilateral pleural parenchymal changes unchanged compared to previous. Urine cultures were positive for pseudomonas aeruginosa. Blood cultures revealed no growth. She did require 2 units of packed red blood cells this admission. Most recent hemoglobin 7.9. She remains on DuoNeb inhalations, Pulmicort. She is nourished via PEG tube feedings. Plan is for permacath placement for continued hemodialysis and subsequently transferred to [facility] 03/13/2020. She is currently awake. Oriented times one. Her level of mentation continues to wax and wane. She has been maintaining good O2 saturations in the mid to upper 90s on room air. Currently receiving hemodialysis. Urine cultures were positive for pseudomonas aeruginosa. Blood cultures revealed no growth. She did require 2 units of packed red blood cells this admission. Patient is status post dialysis catheter placement and right IJ Patient is status post hemodialysis; plan is to transfer to [facility] upon discharge ; patient's outpatient dialysis chair times starts 03/17/2020; case management on board for discharge planning Objective - Vital Signs Vital signs: Vital Signs Temp 97.6 F 03/13/20 07:50 Pulse 104 H 03/13/20 11:24 Resp 22 03/13/20 11:05 BP 126/77 03/13/20 11:05 Pulse Ox 97 03/13/20 11:05 Intake & Output 03/12/20 03/13/20 03/13/20 18:59 06:59 18:59 Intake Total 625 0 Output Total 2306 Balance -1681 0 Weight 105.1 kg Intake: Oral 325 0 Hemodialysis 300 Output: Urine 6 Hemodialysis 2300 Other: Voiding Method Indwelling Catheter Indwelling Catheter Indwelling Catheter - Exam GENERAL EXAM: Quite drowsy, 75-year-old white female, on room air, breathing sh allowly, and respirations are tachypneic, daily responding to tactile stimulation HEAD: Normocephalic/atraumatic. EYES: Normal reaction of pupils, equal size. Conjunctiva pink, sclera white. NOSE: Clear with pink turbinates. THROAT: No erythema or exudates. NECK: No masses, no JVD, no thyroid enlargement, no adenopathy. CHEST: No chest wall deformity. Symmetrical expansion. LUNGS: Equal air entry with diminished breath sounds, CVS: Regular rate and rhythm, normal S1 and S2, no gallops, no murmurs, no rubs ABDOMEN: Soft, nontender. No hepatosplenomegaly, normal bowel sounds, no guarding or rigidity. EXTREMITIES: No clubbing, no edema, no cyanosis, 2+ pulses and upper and lower extremities. - Labs CBC & Chem 7: 03/13/20 09:40 03/13/20 09:40 Labs: Abnormal Lab Results - Last 24 Hours (Table) 03/12/20 03/13/20 03/13/20 Range/Units 18:15 00:03 06:15 WBC (3.8-10.6) k/uL RBC (3.80-5.40) m/uL Hgb (11.4-16.0) gm/dL Hct (34.0-46.0) % RDW (11.5-15.5) % Neutrophils # (Manual) (1.3-7.7) k/uL Lymphocytes # (Manual) (1.0-4.8) k/uL Monocytes # (Manual) (0-1.0) k/uL Metamyelocytes # (Man) (0) k/uL Sodium (137-145) mmol/L BUN (7-17) mg/dL Creatinine (0.52-1.04) mg/dL Glucose (74-99) mg/dL POC Glucose (mg/dL) 173 H 129 H 167 H (75-99) mg/dL 03/13/20 03/13/20 03/13/20 Range/Units 09:40 09:40 11:41 WBC 11.2 H (3.8-10.6) k/uL RBC 2.67 L (3.80-5.40) m/uL Hgb 7.5 L (11.4-16.0) gm/dL Hct 24.1 L (34.0-46.0) % RDW 15.6 H (11.5-15.5) % Neutrophils # (Manual) 9.60 H (1.3-7.7) k/uL Lymphocytes # (Manual) 0.34 L (1.0-4.8) k/uL Monocytes # (Manual) 1.01 H (0-1.0) k/uL Metamyelocytes # (Man) 0.11 H (0) k/uL Sodium 136 L (137-145) mmol/L BUN 30 H (7-17) mg/dL Creatinine 1.34 H (0.52-1.04) mg/dL Glucose 118 H (74-99) mg/dL POC Glucose (mg/dL) 128 H (75-99) mg/dL Microbiology - Last 24 Hours (Table) 03/09/20 14:05 Blood Culture - Preliminary Blood No Growth after 72 hours Assessment and Plan Assessment: -Acute hypoxic respiratory failure/ secondary to sepsis and encephalopathy. Patient was extubated on 02/25/2020 -Toxic encephalopathy: Secondary to sepsis most probably from urinary tract infection Pablo catheter will be changed patient has Pseudomonas in the urine patient is presently on cefepime although patient hasn't remitted susceptibility to cefepime as well as Zosyn. We will repeat urine analysis since the Pablo cat heter was replaced patient may or may not need antibiotics we'll make the decision depending on urinalysis results. Infectious disease was consulted. -Pseudomonal UTI -Sepsis secondary to UTI -Chronic kidney disease: Nephrology is following the patient IV fluids as per nephrology. Patient blood pressure is low normal at this time. Patient is also receiving albumin aspirin nephrology -Type 2 diabetes mellitus. -Recent Covid 19 infection. -Hyperlipidemia -Dysphagia for which patient has a PEG tube -DVT prophylaxis: Subcutaneous heparin
[2020-03-13 17:14] LABS: Glucose,Whole Blood 128 mg/dL (75-99)
[2020-03-13 23:42] LABS: Glucose,Whole Blood 140 mg/dL (75-99)
[2020-03-13] MEDS: INSULIN DETEMIR (LEVEMIR) 100 UNIT/ML SYR SQ SCH (23:42)
[2020-03-14 06:21] LABS: Glucose,Whole Blood 119 mg/dL (75-99)
[2020-03-14] MEDS: INSULIN ASPART (NovoLOG) 100 UNIT/ML VIAL SQ SCH ×6 (06:30→18:13)
[2020-03-14] MEDS: IPRATROPIUM-ALBUTEROL 3 ML NEB INHALATION SCH ×4 (08:07→19:24)
[2020-03-14] MEDS: BUDESONIDE 0.5 MG/2 ML NEBU INHALATION SCH ×2 (08:07→19:24)
[2020-03-14 08:14] LABS: Hypochromasia Marked; MCH 28.8 pg (25.0-35.0); MCHC 31.9 g/dL (31.0-37.0); MCV 90.4 fL (80.0-100.0); Mean Platelet Volume 7.4; Platelet Count 266 k/uL (150-450); Poikilocytosis Slight; RBC 2.77 m/uL (3.80-5.40); RDW 15.7 % (11.5-15.5); WBC 15.1 k/uL (3.8-10.6)
[2020-03-14] MEDS: HEPARIN SODIUM,PORCINE 5,000 UNIT/ML 1 ML VIAL SQ SCH ×2 (08:14→20:47)
[2020-03-14] MEDS: METOPROLOL TARTRATE 50 MG TAB PO SCH ×2 (08:14→16:10)
[2020-03-14] MEDS: ZINC SULFATE 220 MG CAP PO SCH (08:15)
[2020-03-14] MEDS: FOLIC ACID 1 MG TAB PO SCH (08:15)
[2020-03-14] MEDS: CHOLECALCIFEROL 25 MCG (1000 IU) TABLET PO SCH (08:15)
[2020-03-14] MEDS: THIAMINE 100 MG TAB PO SCH (08:15)
[2020-03-14] MEDS: MULTIVITAMINS, THERA 1 EACH TAB PO SCH (08:15)
[2020-03-14] MEDS: ASCORBIC ACID 500 MG TAB PO SCH ×2 (08:15→20:47)
[2020-03-14 08:21] LABS: Potassium 3.7 mmol/L (3.5-5.1)
[2020-03-14 08:49] LABS: Nucleated Red Blood Cells 0 /100 WBC (0-0)
[2020-03-14 09:08] LABS: Band Neutrophils % 2 %; Eosinophils # (M) 0.45 k/uL (0-0.7); Lymphocytes # (M) 0.15 k/uL (1.0-4.8); Monocytes # (M) 0.76 k/uL (0-1.0); Myelocytes # (M) 0.15 k/uL (0); Myelocytes % 1 %; Neutrophils % (M) 90 %; Total Cells Counted 200
--- NOTE | 2020-03-14 09:11 | P.PN ---
Subjective Progress Note Date: 03/14/20 This is a 75-year-old female, familiar to my service, patient was recently at [facility], and she was initially admitted on 01/05/20. She was eventually discharged to a rehab facility on 02/19/20. Patient had many medical problems during her last admission included acute GI bleeding, acute on chronic diastolic congestive heart failure, acute covid 19 pneumonitis, H influenza pneumonia, and recurrent urinary tract infection. chronic kidney disease, hypertension, hypoxic respiratory failure secondary to pneumonia, obesity with BMI of 35.9, patient required PEG tube placement while she was in the hospital. She was seen by many consultants during her last hospital admission. Patient was eventually discharged to rehab facility on 02/19/20. However the patient was in the rehab facility for less than one day, apparently she developed worsening mental status, worsening shortness of breath. Hence the patient was transferred to [facility] in [facility], admitted for few days, and she continued to worsen, there was a concern about ongoing GI blood losses and hemoglobin. There is also a concern about her worsening pulmonary status, patient was transferred to [facility] and this consult was initiated. Apparently the day of her transferred to [facility], patient was intubated and required mechanical ventilation. Upon my evaluation the patient today in the ICU, patient is on assist control rate of 14, tidal volume is 480, FiO2 45% and PEEP of 5. ABG showed a pO2 of 130 pCO2 of 33 pH of 7.47. After reviewing the ABG, her ventilator settings were changed to tolerate volume is 450 assist-control rate 18 and kept her on 45% FiO2. Chest x-ray showed minimal bilateral infiltrates. Urinalysis is consistent with pyuria and bacteriuria. Hemoglobin is noted to be 7.3. WBC count is 19.9. And BUN is 78 creatinine 1.47. Patient was empirically started on cefepime for presumptive urinary tract infection and pneumonia patient had previous pseudomonal urinary tract infection. Not much history could be obtained from the patient most of the information obtained so far is from the chart Patient was reevaluated today on 02/25/2020, remains in the ICU, intubated and mechanically ventilated. She is on assist control rate of 18 tidal volume 455- 45% PEEP of 5. ABG showed a pO2 of 166 pCO2 of 32 pH of 7.49. On propofol at 30 mcg/kg/m, IV fluid 0.9 normal saline at 65 mL per hour. Remains on enteral feeding. She is also on cefepime empirically for presumptive pneumonia and urinary tract infection. We'll culture so far is showing gram-negative bacilli. Labs today were reviewed, WBC count is 20.2 hemoglobin is 7.2. Basic metabolic profile is unremarkable except for BUN of 79 creatinine of 1.49. Chest x-ray showed multifocal infiltrates bilaterally. Reevaluated today on 02/26/2020, patient remains in the ICU, she was weaned and extubated yesterday. She is now on room air with O2 saturation 96%, IV fluid is at KVO, patient is in sinus rhythm, she is hemodynamically stable, urine cultures are positive for gram-negative bacilli, final identification is pending. Patient did receive 1 unit of blood since she was admitted to the hospital. No active bleeding is noted. Patient was extubated yesterday, and she seems to have tolerated the extubation quite well. My plan is to transfer the patient today to a regular medical floor. Continues to have leukocytosis with WBC count of 19.7. Renal functioning remains borderline, creatinine is 1.61. On 02/27/2020 patient seen in follow-up on medical floor, patient was transferred out of intensive care unit yesterday, on today's exam she is quite encephalopathic, she opens eyes to vigorous stimulation however she is not verbally responding, her pulse ox was 95% on room air, however she is tachypneic, and breathing very shallowly, vital signs have been stable, she's been afebrile. Today's chest x-ray has been reviewed showing worsening bilateral multifocal edema and/or infiltrates. Today's labs showed an increasing white count up to 21.8, from previous 19.7 on yesterday's labs, hemoglobin is 9.3, sodium is 150, potassium is 3.7, chloride is 112, anion gap has increased To 14.1, B1 is 90 creatinine is 2.0, renal function has worsened, patient is being nourished via her PEG tube, and is currently receiving Nepro tube feedings at 35, however she is only receiving 30 mL of free water through the PEG tube every 4 hours. She has not been able to take anything by mouth in view of current dysphagia and aspiration. Patient will be placed on BiPAP support. She is already on antibiotics for pseudomonal urinary tract infection. The patient is seen today 07/28/2020 follow-up on the regular medical floor. She continues to have issues with waxing and waning mentation. She remains on BiPAP 12/428% FiO2. Blood gases were drawn and a pO2 of 111, CO2 38 and a pH of 7.43. No evidence of hypercapnia or hypoxemia and sodium is improved to 141. Creatinine 2.04. White count 15.2. Hemoglobin 8.0. She is status post 1 unit of packed red blood cells this admission. She remains on DuoNeb inhalations, Pulmicort inhalations, antibiotics in the form of meropenem. Urine culture was positive for pseudomonas aeruginosa. The patient is seen today 02/29/2020 in follow-up on the regular medical floor. She does open her eyes to verbal stimuli. She is following some simple commands today. Computed tomography scan of the brain revealed no acute intracranial abnormalities. She is remaining on BiPAP 12 over 4 and 28% FiO2. O2 saturations up to 100%. Blood glucose 118. Continued on bronchodilators and meropenem. The patient is seen today 03/03/2020 follow-up on the regular medical floor. She is currently resting fairly comfortably in bed. She is on BiPAP, 12 over 4 and 28% FiO2. O2 saturations remaining in the 90s. Arousable. Status post 1 unit of packed red blood cells this admission. Current hemoglobin 8.9. Sodium 132. Potassium 4.3. Bicarb 18. BUN 107. Creatinine 3.00. Remains on bronchodilators, antibiotics in the form of meropenem. She's been initiated on a Lasix drip at 10 mg per hour. Minimal urine output. Chest x-ray continues to show multifocal acute infiltrates left greater than right, no significant change compared to previous. The patient is seen today 03/05/2020 follow-up on the regular medical floor. She is currently resting comfortably in bed. Maintaining O2 saturations up to 100% on 3 L/m per nasal cannula. She's afebrile. Hemodynamically stable. Sodium 129. Potassium 3.8. BUN 103. Creatinine 3.13. Currently on 0.5% normal saline at 50 MLS per hour. Lasix drip has been discontinued. This x-ray continues to reveal left greater than right multifocal acute infiltrates on b ackground mild cardiomegaly and low lung volumes. Mild interstitial edema and small tiny bilateral pleural effusions. Abdominal ultrasound reveals chronic medical renal disease. No hydronephrosis. Underlying cirrhosis and portal venous hypertension suspected. Mild ascites. Splenomegaly. She remains on meropenem, bronchodilators. The patient is seen today 03/06/2020 in follow-up on the regular medical floor. She is currently laying in bed. Awake and alert in no acute distress. Maintaining O2 saturations in the 90s on 4 L/m per nasal cannula. 2 feedings continue. She's had very minimal urine output. Nephrology is following. To be given albumin today in addition to Lasix. Sodium 127. Potassium 4.8. BUN 126. Creatinine 3.48. Glucose 1:30. She remains on bronchodilators, meropenem, heparin for DVT prophylaxis. The patient is seen today 03/07/2020 follow-up on the regular medical floor. She is currently resting comfortably in bed. Awake and alert. On BiPAP 12 over 4 at 35% FiO2. O2 saturations up to 100%. Chest x-ray reveals patchy densities in the bilateral lungs with bandlike areas of atelectasis. She's afebrile. Hemodynamically stable. White count 15.4. Hemoglobin dropped to 6.5. Sodium 132. Potassium 4.3. Creatinine 4.3. 2 units of packed red blood cells have been ordered. She also stated have a dialysis catheter placed for renal replacement therapy. She remains on tube feedings via her PEG tube at 35 ML's which is called. The patient is seen today 03/12/2020 in follow-up on the regular medical floor. She is currently awake. Oriented times one. Her level of mentation continues to wax and wane. She has been maintaining good O2 saturations in the mid to upper 90s on room air. Chest x-ray reveals stable bilateral pleural parenchymal changes unchanged compared to previous. Urine cultures were positive for pseudomonas aeruginosa. Blood cultures revealed no growth. She did require 2 units of packed red blood cells this admission. Most recent hemoglobin 7.9. She remains on DuoNeb inhalations, Pulmicort. She is nourished via PEG tube feedings. Plan is for permacath placement for continued hemodialysis and subsequently transferred to [facility]. The patient is seen today 03/13/20. She is currently awake. Oriented times one. Her level of mentation continues to wax and wane. She has been maintaining good O2 saturations in the mid to upper 90s on room air. Currently receiving hemodialysis. Urine cultures were positive for pseudomonas aeruginosa. Blood cultures revealed no growth. She did require 2 units of packed red blood cells this admission. 03/14/2020, the patient is awake on room air oxygen. No signs of any respi ratory distress. As mentioned earlier, her mentation is still waxing and waning. Overall, he is able to open up her eyes and communicate briefly. No focal neurological deficits. She underwent hemodialysis yesterday. She underwent a permacath insertion yesterday without any complications. Pablo catheter still in place with significantly diminished urine output. She is receiving enteral feeding for nutritional support and she has a PEG tube in place and the tube feedings in the form of Nepro at the rate of 35 mL an hour. No abdominal distention. No emesis. Objective - Vital Signs Vital signs: Vital Signs Temp 97.6 F 03/14/20 08:00 Pulse 99 03/14/20 08:20 Resp 18 03/14/20 08:00 BP 146/80 03/14/20 08:00 Pulse Ox 97 03/14/20 08:00 Intake & Output 03/13/20 03/14/20 03/14/20 18:59 06:59 18:59 Intake Total 0 0 Output Total 2300 0 Balance -2300 0 0 Weight 103.3 kg Intake: Oral 0 0 Output: Stool 0 Hemodialysis 2300 Other: Voiding Method Indwelling Catheter Indwelling Catheter Indwelling Catheter # Bowel Movements 2 1 - Exam GENERAL EXAM: Awake, alert, oriented times one, 75-year-old female patient, on room air with O2 saturations greater than 90%, currently comfortable in no apparent distress. HEAD: Normocephalic/atraumatic. EYES: Normal reaction of pupils, equal size. Conjunctiva pink, sclera white. NOSE: Clear with pink turbinates. THROAT: No erythema or exudates. NECK: No masses, no JVD, no thyroid enlargement, no adenopathy. CHEST: No chest wall deformity. Symmetrical expansion. LUNGS: Equal air entry with crackles in the bilateral posterior bases, diminished breath sounds, CVS: Regular rate and rhythm, normal S1 and S2, no gallops, no murmurs, no rubs ABDOMEN: Soft, nontender. No hepatosplenomegaly, normal bowel sounds, no guarding or rigidity. EXTREMITIES: No clubbing, 2+ edema, no cyanosis, 2+ pulses and upper and lower extremities. MUSCULOSKELETAL: Muscle strength and tone normal. SPINE: No scoliosis or deformity SKIN: No rashes or significant lower extremity edema CENTRAL NERVOUS SYSTEM: Mental status, continues to wax and wane. No focal deficits, tone is normal in all 4 extremities - Labs CBC & Chem 7: 03/14/20 07:47 03/14/20 07:47 Labs: Abnormal Lab Results - Last 24 Hours (Table) 03/13/20 03/13/20 03/13/20 Range/Units 09:40 09:40 11:41 WBC 11.2 H (3.8-10.6) k/uL RBC 2.67 L (3.80-5.40) m/uL Hgb 7.5 L (11.4-16.0) gm/dL Hct 24.1 L (34.0-46.0) % RDW 15.6 H (11.5-15.5) % Neutrophils # (Manual) 9.60 H (1.3-7.7) k/uL Lymphocytes # (Manual) 0.34 L (1.0-4.8) k/uL Monocytes # (Manual) 1.01 H (0-1.0) k/uL Metamyelocytes # (Man) 0.11 H (0) k/uL Sodium 136 L (137-145) mmol/L BUN 30 H (7-17) mg/dL Creatinine 1.34 H (0.52-1.04) mg/dL Glucose 118 H (74-99) mg/dL POC Glucose (mg/dL) 128 H (75-99) mg/dL 03/13/20 03/13/20 03/14/20 Range/Units 17:09 23:41 06:12 WBC (3.8-10.6) k/uL RBC (3.80-5.40) m/uL Hgb (11.4-16.0) gm/dL Hct (34.0-46.0) % RDW (11.5-15.5) % Neutrophils # (Manual) (1.3-7.7) k/uL Lymphocytes # (Manual) (1.0-4.8) k/uL Monocytes # (Manual) (0-1.0) k/uL Metamyelocytes # (Man) (0) k/uL Sodium (137-145) mmol/L BUN (7-17) mg/dL Creatinine (0.52-1.04) mg/dL Glucose (74-99) mg/dL POC Glucose (mg/dL) 128 H 140 H 119 H (75-99) mg/dL 03/14/20 03/14/20 Range/Units 07:47 07:47 WBC 15.1 H (3.8-10.6) k/uL RBC 2.77 L (3.80-5.40) m/uL Hgb 8.0 L (11.4-16.0) gm/dL Hct 25.0 L (34.0-46.0) % RDW 15.7 H (11.5-15.5) % Neutrophils # (Manual) (1.3-7.7) k/uL Lymphocytes # (Manual) (1.0-4.8) k/uL Monocytes # (Manual) (0-1.0) k/uL Metamyelocytes # (Man) (0) k/uL Sodium (137-145) mmol/L BUN 32 H (7-17) mg/dL Creatinine 1.56 H (0.52-1.04) mg/dL Glucose 103 H (74-99) mg/dL POC Glucose (mg/dL) (75-99) mg/dL Microbiology - Last 24 Hours (Table) 03/09/20 14:05 Blood Culture - Preliminary Blood No Growth after 96 hours Assessment and Plan Plan: 1 Acute hypoxic respiratory failure secondary to debility of healthcare acquired pneumonia, recent required intubation and placement on mechanical ventilator, was successfully weaned and extubated on 02/25/2020, transfer out of intensive care unit on 02/26/2020. Currently on room air has recovered well and no signs of any respiratory distress, 2 Altered mental status of unclear etiology, computed tomography scan of the brain revealed no acute intracranial abnormalities, most likely toxic metabolic encephalopathy,the patient's gradually improving, and the patient has no focal neurological deficits for now 3 Acute urinary tract infection with urine cultures positive for pseudomonas aeruginosa, completed a course of meropenem , currently on no antibiotics 4 Acute kidney injury, now receiving renal replacement therapy, and the cath was inserted 6 Hyperkalemia related to free water deficit, improved 7 Type 2 diabetes mellitus 8 Recent history of hospitalization related to COVID 19 related pneumonia, and GI bleeding. Did require 2 units of packed red blood cells this admission. Current hemoglobin 8.0 9 History of dysphagia requiring PEG tube placement 10 Dyslipidemia 11 History of chronic diastolic congestive heart failure 12 History of chronic GI blood loss and positive Hemoccult stools, exact etiology is not clear, to be investigated by gastroenterology 13 Chronic anemia possibly related to chronic renal failure, current hemoglobin 7.9 14 Generalized edema secondary to hypoalbuminemia 15 Severe sepsis, UTI secondary to pseudomonas aeruginosa. Did 16 Poor overall functional performance based on the above-mentioned multiple comorbidities Plan: The permacath has been inserted Receiving enteral feeding for nutritional support No signs of any respiratory insufficiency and the patient has recovered from the Covid 19 related pneumonia and respiratory failure Currently stable from the pulmonary standpoint, on room air with O2 saturations greater than 90% Receiving hemodialysis today Prognosis remains guarded and poor Plan is for transfer to [facility] upon discharge We will follow as needed.
[2020-03-14 12:22] LABS: Glucose,Whole Blood 126 mg/dL (75-99)
--- NOTE | 2020-03-14 14:59 | PN ---
PROGRESS NOTE The patient is seen for followup for acute kidney injury, currently hemodialysis dependent. This morning patient is awake, comfortable. She is communicating fairly well. Patient has also tried some oral intake. She does have the tube feeds as well. PHYSICAL EXAMINATION: On examination today, blood pressure was 113/74, heart rate 83 per minute, she is afebrile. Examination of the heart S1, S2. Examination of the lungs, decreased breath sounds at bases. Abdomen is soft, obese, nontender. Examination of lower extremities shows edema 2+ bilaterally upper and lower extremities. SQL ENGINEER exam shows patient is moving her upper extremities. She does not move her legs as much. LABS: Show sodium of 139, potassium 3.7, chloride 105, BUN 32, creatinine 1.56, hemoglobin 8.0 g/dL. ASSESSMENT: 1. Acute kidney injury, acute tubular necrosis, currently oliguric and hemodialysis dependent. We will arrange for hemodialysis tomorrow. 2. Volume overload, slowly improving. 3. Urinary tract infection with Pseudomonas, status post antibiotics. 4. Chronic kidney disease stage 3B, secondary to nephrosclerosis. Previous creatinine around 1.5 with evidence of smallish right kidney and the left kidney was not visualized on the ultrasound. 5. Hyperkalemia, improved post dialysis. PLAN: Hemodialysis in a.m. The patient will need outpatient placement. MMODL / IJN: [id number] /
--- NOTE | 2020-03-14 16:38 | P.PN ---
Subjective Progress Note Date: 03/14/20 Principal diagnosis: Acute hypoxic respiratory failure and acute healthcare acquired pneumonia Acute kidney injury requiring hemodialysis. 02/27/2020 patient is seen and evaluated in room with RN at bedside, patient was transferred out of intensive care unit yesterday; patient is quite encephalopathic and only opens eyes to vigorous stimulation however she is not verbally responding, her pulse ox was 95% on room air, however she is tachypneic, and breathing very shallowly, vital signs have been stable, she's been afebrile. chest x-ray has been reviewed showing worsening bilateral multifocal edema and/or infiltrates. Today's labs showed an increasing white count up to 21.8, from previous 19.7 on yesterday's labs, hemoglobin is 9.3, sodium is 150, potassium is 3.7, chloride is 112, anion gap has increased To 14.1, BUN is 90 creatinine is 2.0, renal function has worsened, patient is being nourished via her PEG tube, and is currently receiving Nepro tube feedings at 35, nephrology is following and have increased to 50 mL of free water through the PEG tube every 4 hours. She has not been able to take anything by mouth in view of current dysphagia and aspiration. Patient will be placed on BiPAP support. She is already on antibiotics for pseudomonal urinary tract infection. Called patient's daughter Char Morales at [phone] and give her a detailed account of patient's declining condition; daughter wants to continue with aggressive treatment that possible re-intubation if needed 02/28/2020 Patient is seen and follow-up on the regular medical floor. She continues to have issues with waxing and waning mentation. She remains on BiPAP 12/428% FiO2. Blood gases were drawn and a pO2 of 111, CO2 38 and a pH of 7.43. No evidence of hypercapnia or hypoxemia and sodium is improved to 141. Creatinine 2.04. White count 15.2. Hemoglobin 8.0. She is status post 1 unit of packed red blood cells this admission. She remains on DuoNeb inhalations, Pulmicort inhalations, antibiotics in the form of meropenem. Urine culture was positive for pseudomonas aeruginosa. Patient's oxygenation continues to wax and wane; ABGs done revealed pCO2 of 38; advanced manufacturing engineer service recommending CT of the head without contrast with neurology consult 02/29/2020 Patient is seen and evaluated in follow-up on the regular medical floor. She does open her eyes to verbal stimuli. She is following some simple commands today. Computed tomography scan of the brain revealed no acute intracranial abnormalities. Await further recommendations from neurology She is remaining on BiPAP 12 over 4 and 28% FiO2. O2 saturations up to 100%. Blood glucose 118. Continued on bronchodilators and meropenem. 03/12/2020 Patient is seen and evaluated in follow-up on the regular medical floor. She is currently awake. Oriented times one. Her level of mentation continues to wax and wane. She has been maintaining good O2 saturations in the mid to upper 90s on room air. Chest x-ray reveals stable bilateral pleural parenchymal changes unchanged compared to previous. Urine cultures were positive for pseudomonas aeruginosa. Blood cultures revealed no growth. She did require 2 units of packed red blood cells this admission. Most recent hemoglobin 7.9. She remains on DuoNeb inhalations, Pulmicort. She is nourished via PEG tube feedings. Plan is for permacath placement for continued hemodialysis and subsequently transferred to [facility] 03/13/2020. She is currently awake. Oriented times one. Her level of mentation continues to wax and wane. She has been maintaining good O2 saturations in the mid to upper 90s on room air. Currently receiving hemodialysis. Urine cultures were positive for pseudomonas aeruginosa. Blood cultures revealed no growth. She did require 2 units of packed red blood cells this admission. Patient is status post dialysis catheter placement and right IJ Patient is status post hemodialysis; plan is to transfer to [facility] upon discharge ; patient's outpatient dialysis chair times starts 03/17/2020; case management on board for discharge planning 03/14/2020 patient is seen and evaluated in room at bedside; remains stable on room air oxygen. No signs of any respiratory distress; mentation is still waxing and waning. She underwent hemodialysis yesterday. She underwent a permacath insertion yesterday without any complications. Pablo catheter still in place with significantly diminished urine output. She is receiving enteral feeding for nutritional support and she has a PEG tube in place and the tube feedings in the form of Nepro at the rate of 35 mL an hour. No abdominal distention. No emesis. Plan is for transfer to [facility] upon discharge Objective - Vital Signs Vital signs: Vital Signs Temp 97.6 F 03/14/20 08:00 Pulse 83 03/14/20 16:01 Resp 18 03/14/20 15:28 BP 103/61 03/14/20 15:28 Pulse Ox 98 03/14/20 15:28 Intake & Output 03/13/20 03/14/20 03/14/20 18:59 06:59 18:59 Intake Total 0 0 Output Total 2300 0 Balance -2300 0 0 Weight 103.3 kg Intake: Oral 0 0 Output: Stool 0 Hemodialysis 2300 Other: Voiding Method Indwelling Catheter Indwelling Catheter Indwelling Catheter # Bowel Movements 2 1 2 - Exam GENERAL EXAM: Quite drowsy, 75-year-old white female, on room air, breathing shallowly, and respirations are tachypneic, daily responding to tactile stimulation HEAD: Normocephalic/atraumatic. EYES: Normal reaction of pupils, equal size. Conjunctiva pink, sclera white. NOSE: Clear with pink turbinates. THROAT: No erythema or exudates. NECK: No masses, no JVD, no thyroid enlargement, no adenopathy. CHEST: No chest wall deformity. Symmetrical expansion. LUNGS: Equal air entry with diminished breath sounds, CVS: Regular rate and rhythm, normal S1 and S2, no gallops, no murmurs, no rubs ABDOMEN: Soft, nontender. No hepatosplenomegaly, normal bowel sounds, no guarding or rigidity. EXTREMITIES: No clubbing, no edema, no cyanosis, 2+ pulses and upper and lower extremities. - Labs CBC & Chem 7: 03/14/20 07:47 03/14/20 07:47 Labs: Abnormal Lab Results - Last 24 Hours (Table) 03/13/20 03/13/20 03/14/20 Range/Units 17:09 23:41 06:12 WBC (3.8-10.6) k/uL RBC (3.80-5.40) m/uL Hgb (11.4-16.0) gm/dL Hct (34.0-46.0) % RDW (11.5-15.5) % Neutrophils # (Manual) (1.3-7.7) k/uL Lymphocytes # (Manual) (1.0-4.8) k/uL Myelocytes # (Manual) (0) k/uL BUN (7-17) mg/dL Creatinine (0.52-1.04) mg/dL Glucose (74-99) mg/dL POC Glucose (mg/dL) 128 H 140 H 119 H (75-99) mg/dL 03/14/20 03/14/20 03/14/20 Range/Units 07:47 07:47 11:48 WBC 15.1 H (3.8-10.6) k/uL RBC 2.77 L (3.80-5.40) m/uL Hgb 8.0 L (11.4-16.0) gm/dL Hct 25.0 L (34.0-46.0) % RDW 15.7 H (11.5-15.5) % Neutrophils # (Manual) 13.80 H (1.3-7.7) k/uL Lymphocytes # (Manual) 0.15 L (1.0-4.8) k/uL Myelocytes # (Manual) 0.15 H (0) k/uL BUN 32 H (7-17) mg/dL Creatinine 1.56 H (0.52-1.04) mg/dL Glucose 103 H (74-99) mg/dL POC Glucose (mg/dL) 126 H (75-99) mg/dL Microbiology - Last 24 Hours (Table) 03/09/20 14:05 Blood Culture - Preliminary Blood No Growth after 120 hours Assessment and Plan Assessment: -Acute hypoxic respiratory failure/ secondary to sepsis and encephalopathy. Patient was extubated on 02/25/2020 -Toxic encephalopathy: Secondary to sepsis most probably from urinary tract infection Pablo catheter will be changed patient has Pseudomonas in the urine patient is presently on cefepime although patient hasn't remitted susceptibility to cefepime as well as Zosyn. We will repeat urine analysis since the Pablo catheter was replaced patient may or may not need antibiotics we'll make the decision depending on urinalysis results. Infectious disease was consulted. -Pseudomonal UTI -Sepsis secondary to UTI -Chronic kidney disease: Nephrology is following the patient IV fluids as per nephrology. Patient blood pressure is low normal at this time. Patient is also receiving albumin aspirin nephrology -Type 2 diabetes mellitus. -Recent Covid 19 infection. -Hyperlipidemia -Dysphagia for which patient has a PEG tube -DVT prophylaxis: Subcutaneous heparin
[2020-03-14 17:10] LABS: Glucose,Whole Blood 129 mg/dL (75-99)
[2020-03-14] MEDS ORDERED: FLUCONAZOLE 100 MG TAB PO ONE (17:27)
--- NOTE | 2020-03-14 19:24 | PN ---
PROGRESS NOTE DATE OF SERVICE: 03/14/2020 REASON FOR FOLLOWUP: Infection and leukocytosis. INTERVAL HISTORY: Patient is currently afebrile. The patient is more awake and alert. She is currently on room air. Denies any chest pain. No cough and no diarrhea has been reported. The patient is not a very good historian. PHYSICAL EXAMINATION: Blood pressure 103/61 with pulse of 61, temperature is 97.6. She is 98% on room air. General description is an elderly female lying in bed in no distress. Respiratory system: Unlabored breathing. Clear to auscultation anteriorly. Heart S1, S2. Regular rate and rhythm. Abdomen: Soft, no tenderness. LABS: White count of 15,000. DIAGNOSTIC IMPRESSION AND PLAN: Patient with Pseudomonas urinary tract infection that has been also with component of pneumonia that has been adequately treated. Patient noted to have worsening of the white count possible oropharyngeal candidiasis. The patient antibiotic and high risk for it. We will give her a dose of Diflucan and see clinical response to it and monitor clinical course closely. MMODL / IJN: [id number] / MTDD
[2020-03-14 21:09] LABS: Glucose,Whole Blood 175 mg/dL (75-99)
[2020-03-14] MEDS: INSULIN DETEMIR (LEVEMIR) 100 UNIT/ML SYR SQ SCH (22:06)
[2020-03-15] MEDS: INSULIN ASPART (NovoLOG) 100 UNIT/ML VIAL SQ SCH ×8 (00:24→18:31)
[2020-03-15 00:25] LABS: Glucose,Whole Blood 148 mg/dL (75-99)
[2020-03-15 06:08] LABS: Glucose,Whole Blood 121 mg/dL (75-99)
[2020-03-15] MEDS: IPRATROPIUM-ALBUTEROL 3 ML NEB INHALATION SCH ×4 (08:07→19:45)
[2020-03-15] MEDS: BUDESONIDE 0.5 MG/2 ML NEBU INHALATION SCH ×2 (08:07→19:46)
--- NOTE | 2020-03-15 08:16 | IR ---
Fluoroscopy HISTORY: Dialysis catheter placement 0.8 minutes fluoroscopy time supplied to the referring clinician. 116 intraoperative C-arm images do cument the procedure. See dictated report from vascular surgery.
[2020-03-15] MEDS: METOPROLOL TARTRATE 50 MG TAB PO SCH ×2 (09:10→18:41)
[2020-03-15] MEDS: MIDODRINE 5 MG TAB PO PRN (09:25)
[2020-03-15] MEDS: HEPARIN SODIUM,PORCINE 5,000 UNIT/ML 1 ML VIAL SQ SCH ×2 (09:34→20:02)
[2020-03-15 11:20] LABS: HCT 26.6 % (34.0-46.0); HGB 8.3 gm/dL (11.4-16.0); Hypochromasia Marked; MCHC 31.1 g/dL (31.0-37.0); MCV 90.1 fL (80.0-100.0); Mean Platelet Volume 7.9; Platelet Count 282 k/uL (150-450); Poikilocytosis Slight; RBC 2.95 m/uL (3.80-5.40); RDW 15.9 % (11.5-15.5)
[2020-03-15 12:03] LABS: Glucose,Whole Blood 100 mg/dL (75-99)
[2020-03-15 12:04] LABS: Band Neutrophils % 2 %; Eosinophils # (M) 0.16 k/uL (0-0.7); Lymphocytes # (M) 0.16 k/uL (1.0-4.8); Monocytes # (M) 0.48 k/uL (0-1.0); Neutrophils % (M) 93 %; Nucleated Red Blood Cells 0 /100 WBC (0-0); Total Cells Counted 100
[2020-03-15 12:06] LABS: Polychromasia Present
--- NOTE | 2020-03-15 12:34 | P.PN ---
Subjective 75-year-old female was transferred from a [facility] for GI bleed. Patient had a history of GI bleed in the past patient underwent extensive workup there is no evidence of active GI bleed at this time. Patient then subsequently went into respiratory failure and was treated for of healthcare associated pneumonia intubated extubated and got reintubated again Although patient apparently became appended later yesterday at the other hospital and patient has to be intubated. Patient started having fevers does have significantly abnormal lo oking urine patient does have a Pablo catheter which will be replaced and the patient has a pseudomonas in the urine patient was initially on Rocephin which is being changed to cefepime patient was recently diagnosed with colon with had a long the hospitalization stay here after which patient was subsequently discharged to a facility where she stayed only for few hours after that she ended up in the hospital for possible GI bleed. Her recent Covid was negative. was extubated and was reintubated patient is was receiving cefepime. Patient is presently on hemodialysis her white blood cell count started going up again because of which patient was started on flucanazole. Her white blood cell count is bit worse today. Patient is also on hemodialysis presently undergoing hemodialysis. Patient has a Pablo catheter and has a PICC line as well. She doesn't have any fevers. PICC line has been there for about a month PICC line will be discontinued, will be sent for culture. Patient's cefepime was discontinued patient received the about 3 weeks of this antibiotic. She has a PEG tube in place as well. Patient is scheduled to be discharged to subacute rehabitation today. Patient does have decubitus ulcers. Apart from the right arm PICC line patient also has a subclavian Aden catheter for hemodialysis. Constitutional: Denied any fatigue denied any fever. Cardio vascular: denied any chest pain, palpitations Gastrointestinal denied any nausea vomiting Pulmonary: Denied any shortness of breath cough Neurologic denied any new focal deficits All inpatient medications were reviewed and appropriate changes in these medications as dictated in the interval history and assessment and plan. Objective - Vital Signs Vital signs: Vital Signs Temp 98.1 F 03/15/20 04:00 Pulse 90 03/15/20 08:17 Resp 18 03/15/20 08:17 BP 146/72 03/15/20 04:00 Pulse Ox 99 03/15/20 08:07 Intake & Output 03/14/20 03/15/20 03/15/20 18:59 06:59 18:59 Intake Total 90 280 Output Total 0 Balance 90 280 Weight 103.8 kg Intake: Oral 90 Tube Feeding 280 Output: Urine 0 Other: Voiding Method Indwelling Catheter Indwelling Catheter # Bowel Movements 2 1 - Exam PHYSICAL EXAMINATION: GENERAL: The patient is alert and able to assess his orientation as patient doesn't talk much, not in any acute distress. Well developed, well nourished. HEENT: Pupils are round and equally reacting to light. EOMI. No scleral icterus. No conjunctival pallor. Normocephalic, atraumatic. No pharyngeal erythema. No thyromegaly. CARDIOVASCULAR: S1 and S2 present. No murmurs, rubs, or gallops. PULMONARY: Chest is clear to auscultation, no wheezing or crackles. ABDOMEN: Soft, nontender, nondistended, normoactive bowel sounds. No palpable organomegaly. PEG tube in place MUSCULOSKELETAL: No joint swelling or deformity. EXTREMITIES: No cyanosis, clubbing, or pedal edema. NEUROLOGICAL: Gross neurological examination did not reveal any new focal deficits. If he can't generalized weakness because of prolonged hospitalizatio n. SKIN: No rashes. - Labs CBC & Chem 7: 03/15/20 11:02 03/14/20 07:47 Labs: Abnormal Lab Results - Last 24 Hours (Table) 03/14/20 03/14/20 03/15/20 Range/Units 16:52 21:07 00:23 WBC (3.8-10.6) k/uL RBC (3.80-5.40) m/uL Hgb (11.4-16.0) gm/dL Hct (34.0-46.0) % RDW (11.5-15.5) % Neutrophils # (Manual) (1.3-7.7) k/uL Lymphocytes # (Manual) (1.0-4.8) k/uL POC Glucose (mg/dL) 129 H 175 H 148 H (75-99) mg/dL 03/15/20 03/15/20 03/15/20 Range/Units 06:07 11:02 12:02 WBC 16.0 H (3.8-10.6) k/uL RBC 2.95 L (3.80-5.40) m/uL Hgb 8.3 L (11.4-16.0) gm/dL Hct 26.6 L (34.0-46.0) % RDW 15.9 H (11.5-15.5) % Neutrophils # (Manual) 15.20 H (1.3-7.7) k/uL Lymphocytes # (Manual) 0.16 L (1.0-4.8) k/uL POC Glucose (mg/dL) 121 H 100 H (75-99) mg/dL Microbiology - Last 24 Hours (Table) 03/09/20 14:05 Blood Culture - Preliminary Blood No Growth after 120 hours Assessment and Plan Plan: -Acute hypoxic respiratory failure/ secondary to sepsis and encephalopathy. Patient was extubated on 02/25/2020 -Toxic encephalopathy: Secondary to sepsis most probably from urinary tract infection Pablo catheter will be changed patient has Pseudomonas, completed antibiotic to be presently not on any antibiotics except for flucanazole for o ropharyngeal candidiasis. - leukocytosis probably because of the PICC line this will be discontinued and will recheck BMP and a CBC tomorrow catheter tip will be sent for cultures -Pseudomonal UTI -Sepsis secondary to UTI -Chronic kidney disease stage IV patient is presently on hemodialysis: Nephkamaljit gutiérrez is following the patient IV fluids as per nephrology. -Type 2 diabetes mellitus. -Hyperlipidemia -Dysphagia for which patient has a PEG tube -DVT prophylaxis: Subcutaneous heparin
--- NOTE | 2020-03-15 12:38 | PN ---
PROGRESS NOTE The patient is seen for followup for acute kidney injury currently hemodialysis dependent. She is awake, comfortable, not in any acute distress. PHYSICAL EXAMINATION: Blood pressure this morning was 146/72, heart rate 95 per minute, she is afebrile. Examination of the heart S1, S2. Examination of the lungs, bilateral breath sounds are heard. Abdomen is soft, nontender. Examination of the lower extremity shows edema 1+ bilaterally. Both lower extremities are wrapped. The patient answer to simple questions. LABS: Show hemoglobin 8.3 g/dL today. On 03/14/2020, sodium was 139, potassium 3.7, BUN 32, creatinine 1.56. ASSESSMENT: 1. Acute kidney injury hemodialysis dependent currently with no significant urine output. We will arrange for hemodialysis today. 2. Generalized debility. 3. Urinary tract infection, status post antibiotics. 4. Acute hypoxic respiratory failure and pneumonia. 5. Chronic kidney disease, NKF stage III, with previous creatinine as low as 1.5 and 1.3 mg/dL. 6. Metabolic acidosis, currently improved with dialysis. 7. Hyperkalemia, resolved with dialysis. PLAN: Continue hemodialysis 3 times a week. Continue to encourage increased oral intake. The patient does have tube feedings as well. Continue the Aranesp for anemia. MMODL / IJN: [id number] /
--- NOTE | 2020-03-15 14:47 | P.PN ---
Subjective Progress Note Date: 03/15/20 Principal diagnosis: Acute hypoxic respiratory failure and acute healthcare acquired pneumonia This is a 75-year-old female, familiar to my service, patient was recently at [facility], and she was initially admitted on 01/05/20. She was eventually discharged to a rehab facility on 02/19/20. Patient had many medical problems during her last admission included acute GI bleeding, acute on chronic diastolic congestive heart failure, acute covid 19 pneumonitis, H influenza pneumonia, and recurrent urinary tract infection. chronic kidney disease, hypertension, hypoxic respiratory failure secondary to pneumonia, obesity with BMI of 35.9, patient required PEG tube placement while she was in the hospital. She was seen by many consultants during her last hospital admission. Patient was eventually discharged to rehab facility on 02/19/20. However the patient was in the rehab facility for less than one day, apparently she developed worsening mental status, worsening shortness of breath. Hence the patient was transferred to [facility] in [facility], admitted for few days, and she continued to worsen, there was a concern about ongoing GI blood losses and hemoglobin. There is also a concern about her worsening pulmonary status, patient was transferred to [facility] and this consult was initiated. Apparently the day of her transferred to [facility], patient was intubated and required mechanical ventilation. Upon my evaluation the patient today in the ICU, patient is on assist control rate of 14, tidal volume is 480, FiO2 45% and PEEP of 5. ABG showed a pO2 of 130 pCO2 of 33 pH of 7.47. After reviewing the ABG, her ventilator settings were changed to tolerate volume is 450 assist-control rate 18 and kept her on 45% FiO2. Chest x-ray showed minimal bilateral infiltrates. Urinalysis is consistent with pyuria and bacteriuria. Hemoglobin is noted to be 7.3. WBC count is 19.9. And BUN is 78 creatinine 1.47. Patient was empirically started on cefepime for presumptive urinary tract infection and pneumonia patient had previous pseudomonal urinary tract infection. Not much history could be obtained from the patient most of the information obtained so far is from the chart Patient was reevaluated today on 02/25/2020, remains in the ICU, intubated and mechanically ventilated. She is on assist control rate of 18 tidal volume 455- 45% PEEP of 5. ABG showed a pO2 of 166 pCO2 of 32 pH of 7.49. On propofol at 30 mcg/kg/m, IV fluid 0.9 normal saline at 65 mL per hour. Remains on enteral feeding. She is also on cefepime empirically for presumptive pneumonia and urinary tract infection. We'll culture so far is showing gram-negative bacilli. Labs today were reviewed, WBC count is 20.2 hemoglobin is 7.2. Basic metabolic profile is unremarkable except for BUN of 79 creatinine of 1.49. Chest x-ray showed multifocal infiltrates bilaterally. Reevaluated today on 02/26/2020, patient remains in the ICU, she was weaned and extubated yesterday. She is now on room air with O2 saturation 96%, IV fluid is at KVO, patient is in sinus rhythm, she is hemodynamically stable, urine culture s are positive for gram-negative bacilli, final identification is pending. Patient did receive 1 unit of blood since she was admitted to the hospital. No active bleeding is noted. Patient was extubated yesterday, and she seems to have tolerated the extubation quite well. My plan is to transfer the patient today to a regular medical floor. Continues to have leukocytosis with WBC count of 19.7. Renal functioning remains borderline, creatinine is 1.61. Reevaluated today on 03/15/2020, patient is on room air, she is undergoing hemodialysis. Patient does not seem in distress, she is on room air. And my understanding is the patient will be discharged back to ECF sometime later today. Labs today were reviewed including his CBC. Electrolytes are normal BUN is 32 creatinine is 1.56 Objective - Vital Signs Vital signs: Vital Signs Temp 98.2 F 03/15/20 08:00 Pulse 90 03/15/20 08:17 Resp 18 03/15/20 08:17 BP 115/61 03/15/20 08:00 Pulse Ox 99 03/15/20 08:07 Intake & Output 03/14/20 03/15/20 03/15/20 18:59 06:59 18:59 Intake Total 90 280 Output Total 0 Balance 90 280 Weight 103.8 kg Intake: Oral 90 Tube Feeding 280 Output: Urine 0 Other: Voiding Method Indwelling Catheter Indwelling Catheter # Bowel Movements 2 1 - Exam Physical Exam: Revealed a 75-year-old female, obese, on room air. In no distress. Head: Atraumatic, normocephalic. HEENT:[Neck is supple.] [No neck masses.] [No thyromegaly.] [No JVD.] Chest: [Diminished breath sounds and crackles at the bases. Cardiac Exam: [Normal S1 and S2, no S3 gallop, no murmur.] Abdomen: [Soft, nontender, no megaly, no rebound, no guarding, normal bowel sounds.] PEG tube is noted and seems to be intact. Extremities: [No clubbing, trace of bipedal edema, no cyanosis.] Neurological Exam: Arousable but confused, follows simple instructions Psychiatric: Blunted mood and affect, extremely slow, confused Skin: No rashes. - Labs CBC & Chem 7: 03/15/20 11:02 03/14/20 07:47 Labs: Abnormal Lab Results - Last 24 Hours (Table) 03/14/20 03/14/20 03/15/20 Range/Units 16:52 21:07 00:23 WBC (3.8-10.6) k/uL RBC (3.80-5.40) m/uL Hgb (11.4-16.0) gm/dL Hct (34.0-46.0) % RDW (11.5-15.5) % Neutrophils # (Manual) (1.3-7.7) k/uL Lymphocytes # (Manual) (1.0-4.8) k/uL POC Glucose (mg/dL) 129 H 175 H 148 H (75-99) mg/dL 03/15/20 03/15/20 03/15/20 Range/Units 06:07 11:02 12:02 WBC 16.0 H (3.8-10.6) k/uL RBC 2.95 L (3.80-5.40) m/uL Hgb 8.3 L (11.4-16.0) gm/dL Hct 26.6 L (34.0-46.0) % RDW 15.9 H (11.5-15.5) % Neutrophils # (Manual) 15.20 H (1.3-7.7) k/uL Lymphocytes # (Manual) 0.16 L (1.0-4.8) k/uL POC Glucose (mg/dL) 121 H 100 H (75-99) mg/dL Microbiology - Last 24 Hours (Table) 03/09/20 14:05 Blood Culture - Preliminary Blood No Growth after 120 hours Assessment and Plan Assessment: Impression: Acute hypoxic respiratory failure, secondary to pneumonia as noted below. Acute healthcare acquired pneumonia Acute metabolic encephalopathy Acute urinary tract infection most likely secondary to pseudomonas Chronic kidney disease Type 2 diabetes. Recent history of cough related 19 infection and pneumonia Dyslipidemia History of dysphagia requiring PEG tube placement. Obesity with BMI of 35.9. History of chronic diastolic congestive heart failure History of chronic GI blood losses , addressed by gastroenterology. Chronic anemia secondary to chronic GI blood losses. And secondary to chronic renal failure. Generalized edema secondary to hypoalbuminemia. Acute urinary tract infection secondary to pseudomonas aeruginosa Severe sepsis secondary to above/urinary tract infection/Pseudomonas aeruginosa. Recommendation: Hemodialysis as per nephrology on the case. Continue enteral feeding. No signs of respiratory distress today, and the patient seems to have fully recovers from her covid 19 pneumonia. Agree with discharge planning to ECF. Long-term prognosis exams extremely poor and guarded Time with Patient: Less than 30
[2020-03-15] MEDS: THIAMINE 100 MG TAB PO SCH (15:39)
[2020-03-15] MEDS: ASCORBIC ACID 500 MG TAB PO SCH ×2 (15:39→20:02)
[2020-03-15] MEDS: CHOLECALCIFEROL 25 MCG (1000 IU) TABLET PO SCH (15:39)
[2020-03-15] MEDS: FLUCONAZOLE 100 MG TAB PO SCH (15:40)
[2020-03-15] MEDS: ZINC SULFATE 220 MG CAP PO SCH (15:40)
[2020-03-15] MEDS: FOLIC ACID 1 MG TAB PO SCH (15:40)
[2020-03-15] MEDS: MULTIVITAMINS, THERA 1 EACH TAB PO SCH (15:40)
[2020-03-15 16:28] LABS: Calcium 8.9 mg/dL (8.4-10.2)
--- NOTE | 2020-03-15 17:02 | XR ---
EXAMINATION TYPE: XR chest 1V portable DATE OF EXAM: 03/15/2020 COMPARISON: 03/13/2020 HISTORY: Short of breath TECHNIQUE: FINDINGS: There is right side central venous catheter with tip in the superior vena cava. There is co arse interstitial density and subsegmental atelectasis in the left lung. Heart size is fairly normal. There is no heart failure. There is some mild interstitial density in the right lung. IMPRESSION: Interstitial fibrotic changes and atelectasis is not significantly different than recent exam. There is no heart failure.
[2020-03-15 17:06] LABS: Glucose,Whole Blood 153 mg/dL (75-99)
[2020-03-15 18:15] LABS: Glucose,Whole Blood 154 mg/dL (75-99)
[2020-03-15] MEDS: ACETAMINOPHEN ORAL SUSP (PEDS) 3,840 MG/120 ML BOTTLE PO PRN (20:02)
[2020-03-15] MEDS: INSULIN DETEMIR (LEVEMIR) 100 UNIT/ML SYR SQ SCH (20:38)
--- NOTE | 2020-03-15 22:35 | PN ---
PROGRESS NOTE DATE OF SERVICE: 03/15/2020 REASON FOR FOLLOWUP: Leukocytosis and low-grade fever. INTERVAL HISTORY: The patient did spike a low-grade fever of 99.9 this afternoon. The patient is hemodynamically stable. She is breathing comfortably, currently on room air. No vomiting, diarrhea or any other changes reported by nursing staff. Patient herself was unable to provide any history. PHYSICAL EXAMINATION: Blood pressure 113/71 with a pulse of 100, temperature 99.9. She is 100% on 2 L nasal cannula. General description is an elderly female lying in bed in no distress. RESPIRATORY SYSTEM: Unlabored breathing with decreased breath sounds at the base. No wheeze. HEART: S1, S2. Regular rate and rhythm. ABDOMEN: Soft. No tenderness. LABS: Chest x-ray did show some interstitial fibrotic changes. DIAGNOSTIC IMPRESSION AND PLAN: Patient with elevated white count and now with a low-grade fever; concern for possibly line-related. The patient's PICC line has been discontinued. With the new fever, blood cultures will be obtained. PICC line has been discontinued and the tip has been sent for culture. Will adjust antibiotics further on the basis of these reports. Continue with supportive care. MMODL / IJN: [id number] /
[2020-03-15 23:59] LABS: Glucose,Whole Blood 168 mg/dL (75-99)
[2020-03-16] MEDS: PIPERACILLIN-TAZOBACTAM 3.375 GM in SODIUM CHLORIDE 0.9% 100 ML IVPB SCH ×3 (01:00→17:24)
[2020-03-16] MEDS: INSULIN ASPART (NovoLOG) 100 UNIT/ML VIAL SQ SCH ×8 (01:00→18:45)
[2020-03-16 06:24] LABS: Glucose,Whole Blood 116 mg/dL (75-99)
[2020-03-16 07:44] LABS: HCT 24.8 % (34.0-46.0); HGB 7.7 gm/dL (11.4-16.0); Hypochromasia Marked; MCH 28.2 pg (25.0-35.0); MCV 91.1 fL (80.0-100.0); Mean Platelet Volume 7.6; Platelet Count 239 k/uL (150-450); Poikilocytosis Slight; RBC 2.72 m/uL (3.80-5.40); RDW 15.8 % (11.5-15.5); WBC 15.1 k/uL (3.8-10.6)
[2020-03-16 08:03] LABS: Calcium 8.6 mg/dL (8.4-10.2); Potassium 3.9 mmol/L (3.5-5.1)
[2020-03-16] MEDS: IPRATROPIUM-ALBUTEROL 3 ML NEB INHALATION SCH ×4 (08:29→19:47)
[2020-03-16] MEDS: BUDESONIDE 0.5 MG/2 ML NEBU INHALATION SCH ×2 (08:29→19:47)
[2020-03-16] MEDS: METOPROLOL TARTRATE 50 MG TAB PO SCH ×2 (08:35→16:33)
[2020-03-16] MEDS: ASCORBIC ACID 500 MG TAB PO SCH ×2 (08:37→20:54)
[2020-03-16] MEDS: MULTIVITAMINS, THERA 1 EACH TAB PO SCH (08:37)
[2020-03-16] MEDS: ZINC SULFATE 220 MG CAP PO SCH (08:37)
[2020-03-16] MEDS: CHOLECALCIFEROL 25 MCG (1000 IU) TABLET PO SCH (08:37)
[2020-03-16] MEDS: HEPARIN SODIUM,PORCINE 5,000 UNIT/ML 1 ML VIAL SQ SCH ×2 (08:39→20:53)
[2020-03-16] MEDS: FLUCONAZOLE 100 MG TAB PO SCH (08:41)
--- NOTE | 2020-03-16 11:28 | P.PN ---
Subjective 75-year-old female was transferred from a [facility] for GI bleed. Patient had a history of GI bleed in the past patient underwent extensive workup there is no evidence of active GI bleed at this time. Patient then subsequently went into respiratory failure and was treated for of healthcare associated pneumonia intubated extubated and got reintubated again Although patient apparently became appended later yesterday at the other hospital and patient has to be intubated. Patient started having fevers does have significantly abnormal lo oking urine patient does have a Pablo catheter which will be replaced and the patient has a pseudomonas in the urine patient was initially on Rocephin which is being changed to cefepime patient was recently diagnosed with colon with had a long the hospitalization stay here after which patient was subsequently discharged to a facility where she stayed only for few hours after that she ended up in the hospital for possible GI bleed. Her recent Covid was negative. was extubated and was reintubated patient is was receiving cefepime. Patient is presently on hemodialysis her white blood cell count started going up again because of which patient was started on flucanazole. Her white blood cell count is bit worse today. Patient is also on hemodialysis presently undergoing hemodialysis. Patient has a Pablo catheter and has a PICC line as well. She doesn't have any fevers. PICC line has been there for about a month PICC line will be discontinued, will be sent for culture. Patient's cefepime was discontinued patient received the about 3 weeks of this antibiotic. She has a PEG tube in place as well. Patient is scheduled to be discharged to subacute rehabitation today. Patient does have decubitus ulcers. Apart from the right arm PICC line patient also has a subclavian Aden catheter for hemodialysis. 03/16/2020 and patient started having fevers as today was tachycardic blood cultures were obtained possible source of infection being PICC line PICC line was removed will just monitor her without any antibiotics at this time patient creatinine went up at hemodialysis yesterday patient is bit tachycardic as well. Review of systems: Unable to assess All inpatient medications were reviewed and appropriate changes in these medications as dictated in the interval history and assessment and plan. Objective - Vital Signs Vital signs: Vital Signs Temp 98.0 F 03/16/20 08:00 Pulse 104 H 03/16/20 09:00 Resp 28 H 03/16/20 09:00 BP 124/62 03/16/20 08:00 Pulse Ox 98 03/16/20 08:30 Intake & Output 03/15/20 03/16/20 03/16/20 18:59 06:59 18:59 Intake Total 720 810 270 Output Total 2300 20 400 Balance -1580 790 -130 Weight 102 kg Intake: Oral 0 240 Tube Feeding 420 700 30 Hemodialysis 300 Other 110 Output: Urine 20 400 Stool 0 Hemodialysis 2300 Other: Voiding Method Indwelling Catheter Indwelling Catheter Indwelling Catheter # Bowel Movements 1 1 - Exam PHYSICAL EXAMINATION: GENERAL: The patient is drowsy and unable to to assess his orientation as patient doesn't talk much, not in any acute distress. Well developed, well nourished. HEENT: Pupils are round and equally reacting to light. EOMI. No scleral icterus. No conjunctival pallor. Normocephalic, atraumatic. No pharyngeal erythema. No thyromegaly. CARDIOVASCULAR: S1 and S2 present. No murmurs, rubs, or gallops. PULMONARY: Chest is clear to auscultation, no wheezing or crackles. ABDOMEN: Soft, nontender, nondistended, normoactive bowel sounds. No palpable organomegaly. PEG tube in place MUSCULOSKELETAL: No joint swelling or deformity. EXTREMITIES: No cyanosis, clubbing, or pedal edema. NEUROLOGICAL: Gross neurological examination did not reveal any new focal deficits. If he can't generalized weakness because of prolonged hospitalization. SKIN: No rashes. - Labs CBC & Chem 7: 03/16/20 07:22 03/16/20 07:22 Labs: Abnormal Lab Results - Last 24 Hours (Table) 03/15/20 03/15/20 03/15/20 Range/Units 11:02 12:02 16:01 WBC 16.0 H (3.8-10.6) k/uL RBC 2.95 L (3.80-5.40) m/uL Hgb 8.3 L (11.4-16.0) gm/dL Hct 26.6 L (34.0-46.0) % RDW 15.9 H (11.5-15.5) % Neutrophils # (Manual) 15.20 H (1.3-7.7) k/uL Lymphocytes # (Manual) 0.16 L (1.0-4.8) k/uL Sodium (137-145) mmol/L BUN 25 H (7-17) mg/dL Creatinine 1.28 H (0.52-1.04) mg/dL Glucose 161 H (74-99) mg/dL POC Glucose (mg/dL) 100 H (75-99) mg/dL 03/15/20 03/15/20 03/15/20 Range/Units 17:05 18:14 23:57 WBC (3.8-10.6) k/uL RBC (3.80-5.40) m/uL Hgb (11.4-16.0) gm/dL Hct (34.0-46.0) % RDW (11.5-15.5) % Neutrophils # (Manual) (1.3-7.7) k/uL Lymphocytes # (Manual) (1.0-4.8) k/uL Sodium (137-145) mmol/L BUN (7-17) mg/dL Creatinine (0.52-1.04) mg/dL Glucose (74-99) mg/dL POC Glucose (mg/dL) 153 H 154 H 168 H (75-99) mg/dL 03/16/20 03/16/20 03/16/20 Range/Units 06:22 07:22 07:22 WBC 15.1 H (3.8-10.6) k/uL RBC 2.72 L (3.80-5.40) m/uL Hgb 7.7 L (11.4-16.0) gm/dL Hct 24.8 L (34.0-46.0) % RDW 15.8 H (11.5-15.5) % Neutrophils # (Manual) (1.3-7.7) k/uL Lymphocytes # (Manual) (1.0-4.8) k/uL Sodium 136 L (137-145) mmol/L BUN 34 H (7-17) mg/dL Creatinine 1.89 H (0.52-1.04) mg/dL Glucose 105 H (74-99) mg/dL POC Glucose (mg/dL) 116 H (75-99) mg/dL Microbiology - Last 24 Hours (Table) 03/15/20 15:45 Catheter Tip Culture - Preliminary Picc Line 03/09/20 14:05 Blood Culture - Final Blood No Growth after 144 hours Assessment and Plan Plan: -Acute hypoxic respiratory failure/ secondary to sepsis and encephalopathy. Patient was extubated on 02/25/2020 -Fever blood cultures were obtained possible source of infection being PICC line which was removed, patient was started on Zosyn chest x-ray did not show pne umonia but did show some atelectasis -Toxic encephalopathy: Secondary to sepsis most probably from urinary tract infection Pablo catheter will be changed patient has Pseudomonas, completed antibiotic to be presently not on any antibiotics except for flucanazole for oropharyngeal candidiasis. - leukocytosis probably because of the PICC line this will be discontinued and will recheck BMP and a CBC tomorrow catheter tip will be sent for cultures -Pseudomonal UTI -Sepsis secondary to UTI -Chronic kidney disease stage IV patient is presently on hemodialysis: Nephrology is following the patient IV fluids as per nephrology. -Type 2 diabetes mellitus. -Hyperlipidemia -Dysphagia for which patient has a PEG tube -DVT prophylaxis: Subcutaneous heparin
[2020-03-16 12:08] LABS: Glucose,Whole Blood 114 mg/dL (75-99)
[2020-03-16] MEDS: THIAMINE 100 MG TAB PO SCH (12:52)
[2020-03-16] MEDS: DARBEPOETIN ALFA 40 MCG/0.4 ML SYRINGE SQ SCH (12:52)
[2020-03-16] MEDS: FOLIC ACID 1 MG TAB PO SCH (12:52)
[2020-03-16 14:07] VITALS: BMI 39.8
--- NOTE | 2020-03-16 15:29 | PN ---
PROGRESS NOTE Patient is seen for followup for acute kidney injury, currently hemodialysis-dependent. She is maintained on a Sunday, Sunday, Sunday schedule. Patient will be dialyzed tomorrow. She tolerated her treatment fairly well yesterday. This morning patient is awake. She denies any significant complaints. She has been confused. Blood pressure was 124/62, heart rate 98 per minute. Patient is afebrile. EXAMINATION OF THE HEART: S1 and S2. EXAMINATION OF LUNGS: Decreased breath sounds at bases. ABDOMEN: Soft, non-tender, obese. Examination of lower extremities shows bilateral extremities to be currently wrapped. Edema has improved. Labs show sodium 136, potassium 3.9, BUN 34, creatinine 1.89, hemoglobin 7.7 g/dL. ASSESSMENT: 1. Acute kidney injury, acute tubular necrosis, currently hemodialysis-dependent. We will arrange for hemodialysis in a.m. 2. Recent pneumonia and hypoxic respiratory failure, currently improved. 3. Severe volume overload, improved with dialysis and ultrafiltration. 4. Acute urinary tract infection, status post antibiotics. 5. Generalized debility. PLAN: Hemodialysis in a.m. MMODL / IJN: [id number] /
--- NOTE | 2020-03-16 16:31 | PN ---
PROGRESS NOTE DATE OF SERVICE: 03/16/2020 REASON FOR FOLLOWUP: Fever. INTERVAL HISTORY: Patient did spike a low-grade fever yesterday of 100.8. The patient did have blood cultures drawn. Chest x-ray was done. She has been started on Zosyn by the on-call physician last night. As of this morning, the patient is afebrile. The patient is more awake, alert. She is breathing comfortably on room air. No vomiting has been reported. She did have diarrhea but no worsening. Did have a Pablo catheter, though no significant urine output. PHYSICAL EXAMINATION: Blood pressure 104/66, pulse of 90, temperature 98.7. She is 99% on room air. General description is an elderly female lying in bed in no distress. RESPIRATORY SYSTEM: Unlabored breathing, decreased breath sounds in the bases. No wheeze. HEART: S1, S2. Regular rate and rhythm. ABDOMEN: Soft, no tenderness. LABS: Hemoglobin 7.7, white count 15.1, BUN of 34, creatinine is 1.89. DIAGNOSTIC IMPRESSION AND PLAN: Patient with new fever, source possibly related to her Pablo catheter, was advised to discontinue the Pablo catheter. She hardly makes any urine. Urine culture will be obtained. In view of clinical response, to continue while waiting for the culture to finalize. Continue with supportive care. MMODL / IJN: [id number] /
[2020-03-16] MEDS ORDERED: ACETAMINOPHEN TAB 325 MG TAB PO PRN (17:14)
[2020-03-16] MEDS: ACETAMINOPHEN ORAL SUSP (PEDS) 3,840 MG/120 ML BOTTLE PO PRN (17:21)
[2020-03-16 17:57] LABS: Glucose,Whole Blood 184 mg/dL (75-99)
[2020-03-16] MEDS: INSULIN DETEMIR (LEVEMIR) 100 UNIT/ML SYR SQ SCH (20:54)
[2020-03-17] MEDS: PIPERACILLIN-TAZOBACTAM 3.375 GM in SODIUM CHLORIDE 0.9% 100 ML IVPB SCH ×2 (00:03→13:39)
[2020-03-17 00:07] LABS: Glucose,Whole Blood 151 mg/dL (75-99)
[2020-03-17] MEDS: INSULIN ASPART (NovoLOG) 100 UNIT/ML VIAL SQ SCH ×6 (00:18→13:39)
[2020-03-17 06:17] LABS: Glucose,Whole Blood 106 mg/dL (75-99)
[2020-03-17 07:50] LABS: HGB 7.5 gm/dL (11.4-16.0); Hypochromasia Marked; MCH 27.2 pg (25.0-35.0); MCHC 29.9 g/dL (31.0-37.0); MCV 90.9 fL (80.0-100.0); Platelet Count 259 k/uL (150-450); Poikilocytosis Slight; RBC 2.75 m/uL (3.80-5.40); RDW 15.7 % (11.5-15.5); WBC 13.7 k/uL (3.8-10.6)
[2020-03-17] MEDS: BUDESONIDE 0.5 MG/2 ML NEBU INHALATION SCH (07:52)
[2020-03-17] MEDS: IPRATROPIUM-ALBUTEROL 3 ML NEB INHALATION SCH ×3 (07:52→15:34)
[2020-03-17 08:29] LABS: Calcium 8.6 mg/dL (8.4-10.2); Potassium 4.2 mmol/L (3.5-5.1)
--- NOTE | 2020-03-17 11:51 | P.DS ---
Providers Date of admission: 02/24/20 01:06 Attending physician: Sharita Abreu Consults: 02/24/20 02:00 Consult Physician Routine Consulting Provider: Holger Arguelles Consult Reason/Comments: ICU management Do you want consulting provider notified?: Yes, Notify in am Placement Type Exists?: Yes 02/24/20 10:47 Consult Physician Stat Consulting Provider: Lior Nunez Consult Reason/Comments: Low GFR Do you want consulting provider notified?: Already Contacted 02/26/20 11:24 Consult Physician Routine Consulting Provider: Filiberto Zavala Consult Reason/Comments: UTI Pseudomonas Do you want consulting provider notified?: Yes 03/03/20 16:23 Consult Physician Urgent Consulting Provider: Alfred Leon Consult Reason/Comments: AMS Do you want consulting provider notified?: Yes 03/07/20 10:07 Consult Physician Routine Consulting Provider: George Pappas Consult Reason/Comments: DIALYSIS CATH Do you want consulting provider notified?: Yes Primary care physician: Stated None Hospital Course: 75-year-old female was transferred from [facility] for GI bleed. Patient had a history of GI bleed in the past patient underwent extensive workup there is no evidence of active GI bleed at this time. Patient then subsequently went into respiratory failure and was treated for of healthcare associated pneumonia intubated extubated and got reintubated again Although patient apparently became appended later yesterday at the other hospital and patient has to be intubated. Patient started having fevers does have significantly abnormal looking urine patient does have a Pablo catheter which will be replaced and the patient has a pseudomonas in the urine patient was initially on Rocephin which is being changed to cefepime patient was recently diagnosed with colon with had a long the hospitalization stay here after which patient was subsequently discharged to a facility where she stayed only for few hours after that she ended up in the hospital for possible GI bleed. Her recent Covid was negative. was extubated and was reintubated patient is was receiving cefepime. Patient is presently on hemodialysis her white blood cell count started going up again because of which patient was started on flucanazole. Her white blood cell count is bit worse today. Patient is also on hemodialysis presently undergoing hemodialysis. Patient has a Pablo catheter and has a PICC line as well. She doesn't have any fevers. PICC line has been there for about a month PICC line will be discontinued, will be sent for culture. Patient's cefepime was discontinued patient received the about 3 weeks of this antibiotic. She has a PEG tube in place as well. Patient is scheduled to be discharged to subacute rehabitation today. Patient does have decubitus ulcers. Apart from the right arm PICC line patient also has a subclavian Aden catheter for hemodialysis. 03/16/2020 and patient started having fevers as today was tachycardic blood cultures were obtained possible source of infection being PICC line PICC line was removed will just monitor her without any antibiotics at this time patient creatinine went up at hemodialysis yesterday patient is bit tachycardic as well. 03/17/2020 Patient is afebrile today patient is status appears weight at her baseline today and patient is undergoing hemodialysis today barely makes any urine patient was receiving Zosyn. white blood cell count breath, and came down patient PICC line was removed and PICC line cultures are so were negative patient has a Pablo catheter may be source of infection will catheter will be removed today. Patient may not require any antibiotics but will discuss in with infectious disease regarding this if needed patient the will need straight catheterization after bladder scan. Patient doesn't make much urine. Patient is undergoing hemodialysis today. PHYSICAL EXAMINATION: GENERAL: The patient is drowsy and unable to to assess his orientation as patient doesn't talk much, not in any acute distress. Well developed, well nourished. HEENT: Pupils are round and equally reacting to light. EOMI. No scleral icterus. No conjunctival pallor. Normocephalic, atraumatic. No pharyngeal erythema. No thyromegaly. CARDIOVASCULAR: S1 and S2 present. No murmurs, rubs, or gallops. PULMONARY: Chest is clear to auscultation, no wheezing or crackles. ABDOMEN: Soft, nontender, nondistended, normoactive bowel sounds. No palpable organomegaly. PEG tube in place MUSCULOSKELETAL: No joint swelling or deformity. EXTREMITIES: No cyanosis, clubbing, or pedal edema. NEUROLOGICAL: Gross neurological examination did not reveal any new focal deficits. If he can't generalized weakness because of prolonged hospitalization. SKIN: No rashes. Assessment and Plan Plan: -Acute hypoxic respiratory failure/ secondary to sepsis and encephalopathy. Patient was extubated on 02/25/2020 -Fever : Resolved and the there is a new fever is probably related to her Pablo catheter which will be removed. Patient may not require any antibiotics. She was also treated with flucanazole for oropharyngeal candidiasis and patient was treated for pseudomonal UTI during this hospitalization -Toxic encephalopathy: - leukocytosis probably because of the PICC line this will be discontinued and will recheck BMP and a CBC tomorrow catheter tip will be sent for cultures -Pseudomonal UTI -Chronic kidney disease stage IV patient is presently on hemodialysis: Nephrology is following the patient IV fluids as per nephrology. -Type 2 diabetes mellitus. -Hyperlipidemia -Dysphagia for which patient has a PEG tube -DVT prophylaxis: Subcutaneous heparin Plan - Discharge Summary New Discharge Prescriptions: New Darbepoetin Dean [Aranesp] 40 mcg SQ Q7D syringe Midodrine [ProAmatine] 10 mg PO BID PRN #30 tab PRN Reason: hypotension Continue Albuterol Sulfate [Proventil Hfa] 1 puff INHALATION RT-Q6H PRN PRN Reason: Wheezing Insulin Detemir (Levemir) [Levemir] 10 unit SQ HS syr Zinc Sulfate [Orazinc] 220 mg PO DAILY cap Ascorbic Acid [Vitamin C] 500 mg PO BID tab Cholecalciferol [Vitamin D3 (25 Mcg = 1000 Iu)] 5,000 unit PO DAILY tab Acetaminophen Tab [Tylenol] 650 mg PO Q6HR PRN PRN Reason: Fever Heparin Sodium,Porcine [Heparin Sodium] 5,000 unit SQ BID@0800,2000 Metoprolol Tartrate [Lopressor] 50 mg PO BID@0800,1600 Loperamide [Imodium] 2 - 4 mg PO Q3H PRN PRN Reason: Diarrhea Folic Acid 1 mg PO DAILY@1200 tab Thiamine [Vitamin B-1] 100 mg PO DAILY@1200 tab INSULIN ASPART (NovoLOG) [NovoLOG (formulary)] 4 unit SQ ACHS Lansoprazole [Prevacid] 30 mg PO DAILY Multivitamins, Thera [Multivitamin (formulary)] 1 tab PO DAILY Ondansetron Odt [Zofran ODT] 4 mg PO Q4H PRN PRN Reason: Nausea Changed Glucerna 1.2 Oren 240 ml PO BID #0 Discontinued Furosemide [Lasix] 40 mg PO BID #60 tablet Discharge Medication List Albuterol Sulfate [Proventil Hfa] 1 puff INHALATION RT-Q6H PRN 01/05/20 [History] Ascorbic Acid [Vitamin C] 500 mg PO BID tab 01/29/20 [Rx] Cholecalciferol [Vitamin D3 (25 Mcg = 1000 Iu)] 5,000 unit PO DAILY tab 01/29/20 [Rx] Insulin Detemir (Levemir) [Levemir] 10 unit SQ HS syr 01/29/20 [Rx] Zinc Sulfate [Orazinc] 220 mg PO DAILY cap 01/29/20 [Rx] Acetaminophen Tab [Tylenol] 650 mg PO Q6HR PRN 02/06/20 [History] Heparin Sodium,Porcine [Heparin Sodium] 5,000 unit SQ BID@0800,2000 02/06/20 [History] Loperamide [Imodium] 2 - 4 mg PO Q3H PRN 02/06/20 [History] Metoprolol Tartrate [Lopressor] 50 mg PO BID@0800,1600 02/06/20 [History] Folic Acid 1 mg PO DAILY@1200 tab 02/19/20 [Rx] Thiamine [Vitamin B-1] 100 mg PO DAILY@1200 tab 02/19/20 [Rx] INSULIN ASPART (NovoLOG) [NovoLOG (formulary)] 4 unit SQ ACHS 02/24/20 [History] Lansoprazole [Prevacid] 30 mg PO DAILY 02/24/20 [History] Multivitamins, Thera [Multivitamin (formulary)] 1 tab PO DAILY 02/24/20 [History] Ondansetron Odt [Zofran ODT] 4 mg PO Q4H PRN 02/24/20 [History] Darbepoetin Dean [Aranesp] 40 mcg SQ Q7D syringe 03/17/20 [Rx] Glucerna 1.2 Oren 240 ml PO BID #0 03/17/20 [Rx] Midodrine [ProAmatine] 10 mg PO BID PRN #30 tab 03/17/20 [Rx] Activity/Diet/Wound Care/Special Instructions: [facility] - Sunday, Sunday, Sunday @0500
[2020-03-17 12:04] LABS: Appearance,Urine Turbid (Clear); Bilirubin,Urine Negative (Negative); Blood,Urine Moderate (Negative); Budding Yeast,Urine Few /hpf; Color,Urine Dark Brown; Glucose,Urine (UA) Negative (Negative); Ketones,Urine Negative (Negative); Leukocyte Esterase,Urine Large (Negative); Nitrite,Urine Negative (Negative); Protein,Urine 3+ (Negative); RBC,Urine 54 /hpf (0-5); Specific Gravity,Urine 1.022 (1.001-1.035); WBC,Urine >182 /hpf (0-5)
[2020-03-17 12:28] LABS: Glucose,Whole Blood 146 mg/dL (75-99)
[2020-03-17 12:38] VITALS: BP 117/63; RESP 30; TEMP 99
[2020-03-17] MEDS: HEPARIN SODIUM,PORCINE 5,000 UNIT/ML 1 ML VIAL SQ SCH (12:42)
--- NOTE | 2020-03-17 13:16 | PN ---
PROGRESS NOTE Patient is seen for followup for acute kidney injury, which is hemodialysis dependent. Patient is seen on hemodialysis. She is tolerating her treatment fairly well. Blood pressure is slightly on the lower side. Patient continues to have no significant urine output. Plan is for discharge to [facility]. PHYSICAL EXAMINATION: On examination today, blood pressure 104/62, heart rate 103 per minute. Patient is afebrile. Examination shows improved edema of lower extremities. Abdomen is soft, obese, nontender. EXAMINATION OF THE HEART: S1, S2. EXAMINATION OF THE LUNGS: Decreased breath sounds at bases. DECK HAND exam shows patient has been moving her extremities. She did answer simple questions. LABS: Labs show sodium 139, potassium 4.2, serum creatinine 2.16, BUN 47, hemoglobin 7.5 g/dL. ASSESSMENT: 1. Acute kidney injury, currently hemodialysis dependent. We will continue to maintain patient on Sunday, Sunday, Sunday schedule for now. 2. Generalized debility. 3. Recent pneumonia with hypoxic respiratory failure, currently improved. 4. Anemia with no active bleeding noted at this time, maintained on Aranesp. 5. Urinary tract infection, status post antibiotics. PLAN: Maintain hemodialysis on a Sunday, Sunday, Sunday schedule as outpatient. MMODL / IJN: [id number] /
[2020-03-17] MEDS: METOPROLOL TARTRATE 50 MG TAB PO SCH ×2 (14:03→16:29)
[2020-03-17] MEDS: ZINC SULFATE 220 MG CAP PO SCH (14:03)
[2020-03-17] MEDS: ASCORBIC ACID 500 MG TAB PO SCH (14:03)
[2020-03-17] MEDS: CHOLECALCIFEROL 25 MCG (1000 IU) TABLET PO SCH (14:03)
[2020-03-17] MEDS: FOLIC ACID 1 MG TAB PO SCH (14:04)
[2020-03-17] MEDS: MULTIVITAMINS, THERA 1 EACH TAB PO SCH (14:04)
[2020-03-17] MEDS: FLUCONAZOLE 100 MG TAB PO SCH (14:04)
[2020-03-17] MEDS: THIAMINE 100 MG TAB PO SCH (14:04)
--- NOTE | 2020-03-17 14:55 | PN ---
PROGRESS NOTE DATE OF SERVICE: 03/17/2020 REASON FOR FOLLOWUP: Leukocytosis. INTERVAL HISTORY: The patient is currently afebrile. The patient has been breathing comfortably on room air. Denies having any chest pain. No cough. No abdominal pain. No nausea or diarrhea has been reported. UA was requested yesterday not done. PHYSICAL EXAMINATION: Blood pressure 104/62 with a pulse of 64, temperature 97.8. General description is an elderly female lying in bed in no distress. RESPIRATORY SYSTEM: Unlabored breathing with decreased breath sounds at the bases. No wheeze . HEART: S1, S2. Regular rate and rhythm. ABDOMEN: Soft no tenderness. LABS: Hemoglobin 7.5, white count 13.7. Urine did show large leukocyte esterase and budding yeast. DIAGNOSTIC IMPRESSION AND PLAN: Patient with fever and leukocytosis could be related to catheter associated urinary tract infection. Urine did show yeast. Will consider a one week course of oral Diflucan and the Pablo catheter should be discontinued. Discussed with the admitting physician. MMODL / IJN: [id number] /
[2020-03-17 15:48] VITALS: PULSE 80
[2020-03-18] MEDS ORDERED: PIPERACILLIN-TAZOBACTAM 3.375 GM in SODIUM CHLORIDE 0.9% 100 ML IVPB SCH (02:00)
== END 2020-03-17 16:45 | DRG 871 ==
LOC: 2SICU 02-24 01:06 → 5NMEDONC 02-26 18:32 → UNDODISIN 03-09 12:17 → 3SCARD 03-09 22:07
PROVIDERS: ADMIT Internal Medicine; ATTEND Internal Medicine
PROC: 5A1945Z Respiratory Ventilation, 24-96 Consecutive Hours (ICD-10-PCS; principal; 2020-02-24 10:40)
PROC: 0BH17EZ Insertion of Endotracheal Airway into Trachea, Via Natural or Artificial Opening (ICD-10-PCS; principal; 2020-02-24 10:40)
PROC: 5A09557 Assistance with Respiratory Ventilation, Greater than 96 Consecutive Hours, Continuous Positive Airway Pressure (ICD-10-PCS; 2020-02-25)
PROC: 30233N1 Transfusion of Nonautologous Red Blood Cells into Peripheral Vein, Percutaneous Approach (ICD-10-PCS; 2020-02-25)
PROC: 02HV33Z Insertion of Infusion Device into Superior Vena Cava, Percutaneous Approach (ICD-10-PCS; 2020-02-25)
PROC: 06HY33Z Insertion of Infusion Device into Lower Vein, Percutaneous Approach (ICD-10-PCS; 2020-03-07)
PROC: 06PYX3Z Removal of Infusion Device from Lower Vein, External Approach (ICD-10-PCS; 2020-03-13)
PROC: 0JH63XZ Insertion of Tunneled Vascular Access Device into Chest Subcutaneous Tissue and Fascia, Percutaneous Approach (ICD-10-PCS; 2020-03-13)
PROC: 05HM33Z Insertion of Infusion Device into Right Internal Jugular Vein, Percutaneous Approach (ICD-10-PCS; 2020-03-13)
DX: A41.52 Sepsis due to Pseudomonas (principal); G92 Toxic encephalopathy; T83.518A Infection and inflammatory reaction due to other urinary catheter, initial encounter; J96.01 Acute respiratory failure with hypoxia; N17.0 Acute kidney failure with tubular necrosis; N39.0 Urinary tract infection, site not specified; Z68.41 Body mass index [BMI] 40.0-44.9, adult; E87.1 Hypo-osmolality and hyponatremia; E87.0 Hyperosmolality and hypernatremia; E87.2 Acidosis; I13.0 Hypertensive heart and chronic kidney disease with heart failure and stage 1 through stage 4 chronic kidney disease, or unspecified chronic kidney disease; I50.32 Chronic diastolic (congestive) heart failure; Z16.24 Resistance to multiple antibiotics; N18.4 Chronic kidney disease, stage 4 (severe); B37.0 Candidal stomatitis; B37.89 Other sites of candidiasis; K76.6 Portal hypertension; K92.2 Gastrointestinal hemorrhage, unspecified; J98.11 Atelectasis; R18.8 Other ascites; R13.10 Dysphagia, unspecified; Z86.16 Personal history of COVID-19; I80.8 Phlebitis and thrombophlebitis of other sites; R65.20 Severe sepsis without septic shock; L89.152 Pressure ulcer of sacral region, stage 2; K74.60 Unspecified cirrhosis of liver; E78.5 Hyperlipidemia, unspecified; E11.22 Type 2 diabetes mellitus with diabetic chronic kidney disease; D63.1 Anemia in chronic kidney disease; E66.9 Obesity, unspecified; E87.5 Hyperkalemia; E88.09 Other disorders of plasma-protein metabolism, not elsewhere classified; F03.90 Unspecified dementia, unspecified severity, without behavioral disturbance, psychotic disturbance, mood disturbance, and anxiety; Z82.49 Family history of ischemic heart disease and other diseases of the circulatory system; Z79.899 Other long term (current) drug therapy; Z79.4 Long term (current) use of insulin; Z87.01 Personal history of pneumonia (recurrent); Z87.440 Personal history of urinary (tract) infections; Z99.2 Dependence on renal dialysis; Z93.1 Gastrostomy status; Z74.01 Bed confinement status; Z68.35 Body mass index [BMI] 35.0-35.9, adult
CPT/HCPCS: 36571; 36573; 36600; 70450; 71045; 76770; 76937; 77001; 80048; 80053; 80074; 81001; 82533; 82805; 83605; 83735; 84100; 84484; 85025; 85027; 85610; 85730; 86704; 86706; 86850; 86870; 86880; 86900; 86901; 86920; 87040; 87070; 87077; 87086; 87186; 87324; 87340; 90935; 94002; 94003; 94640; 94660; 94760

== ENCOUNTER 2020-05-13 14:51 | Emergency (ER) | payer MEDICARE ==
--- NOTE | 2020-05-13 15:53 | ED ---
General Adult HPI - General Chief complaint: Recheck/Abnormal Lab/Rx Stated complaint: Abd labs Time Seen by Provider: 05/13/20 15:03 Source: patient, EMS, RN notes reviewed Mode of arrival: EMS Limitations: no limitations - History of Present Illness Initial comments: Dictation was produced using [employer] dictation software. please excuse any gramma tical, word or spelling errors. This patient was cared for during a federal and state declared state of emergency secondary to Covid 19 Chief Complaint: 75-year-old female with past medical history of dyslipidemia hypertension renal disease presents to the emergency department for hyponatremia and leukocytosis. History of Present Illness: Current resident at [facility]. She was sent from [facility] [address] for hyponatremia and elevated white blood cell,. Patient denies any complaints at this time. Chest history of chronic kidney disease. She does not know why she is here except that she needs to give blood. Patient denies any nausea vomiting. No fevers. No constitutional symptoms. No respiratory symptoms. Has an indwelling Pablo catheter that she states has been in place for several months. The ROS documented in this emergency department record has been reviewed and confirmed by me. Those systems with pertinent positive or negative responses have been documented in the HPI. All other systems are other negative and/or noncontributory. PHYSICAL EXAM: General Impression: Alert and oriented x3, not in acute distress HEENT: Normocephalic atraumatic, extra-ocular movements intact, pupils equal and reactive to light bilaterally, mucous membranes moist. Cardiovascular: Heart regular rate and rhythm Chest: Able to complete full sentences, no retractions, no tachypnea Abdomen: abdomen soft, voluntary guarding, diffuse abdominal tenderness with palpation, ostomy in place to the right lower quadrant, no skin changes Musculoskeletal: Pulses present and equal in all extremities, no peripheral edema Motor: no focal deficits noted Neurological: CN II-XII grossly intact, no focal motor or sensory deficits noted Skin: Intact with no visualized rashes, indwelling Pablo catheter, urine in the Pablo catheter placed be clear yellow without any signs of purulence, stage IV decubitus ulcer to the posterior coccyx. There is fibrinous tissue without surrounding erythema. Total ulcer measures approximately 14 x 14 cm Psych: Normal affect and mood ED course: 75-year-old female brought to the emergency department for abnormal outpatient labs of hyponatremia and leukocytosis. Patient denies any localizing symptoms. She does however have tenderness with palpation to the abdomen. Does feel slightly rigid though she is voluntarily guarding. She denies any GI symptoms. Transfer documentation was reviewed. There is no documentation of what patient' s white count or sodium level was why she was sent here. EKG interpretation: Ventricular rate 71, sinus rhythm,. Interval to 10, QRS 106, QTC 456. No IA prolongation, no QTC prolongation, no ST or T-wave changes noted. EKG compared to 02/06/2020 showing no changes. Overall, this EKG is unremarkable After evaluation obtained. No leukocytosis. White blood cell count is 9.6. Hemoglobin is 9.3 this appears to be improved from March 17. Rest of CBC is unremarkable. Metabolic panel shows an 127. Renal markers are at baseline. The slightly elevated. Rest of metabolic panel is negative. Urinalysis shows findings to suggest any tract infection however this is likely colonization from indwelling Pablo catheter. Chronic virus is negative. Given patient's abdominal symptoms a CT of the abdomen and pelvis was obtained. CT suggests that there is confluent edema about the right lateral abdominal wall correlate for cellulitis. On physical exam she does not have any erythema the skin. It's not indurated or tender to palpation. Furthermore she is not having any infect ious signs or symptoms. Patient's hyponatremia is likely secondary to dehydration per she is given some intravenous fluids and she'll be discharge back to [facility]. Patient was observed in the emergency department for approximately 5 hours and 30 minutes with no acute events. - Related Data Home Medications Medication Instructions Recorded Confirmed Acetaminophen Tab [Tylenol] 650 mg PEG/G-TUBE Q6HR PRN 02/06/20 05/13/20 Loperamide [Imodium] 2 mg PEG/G-TUBE Q4H PRN MDD 16MG 02/06/20 05/13/20 Metoprolol Tartrate [Lopressor] 50 mg PEG/G-TUBE BID 02/06/20 05/13/20 INSULIN ASPART (NovoLOG) [NovoLOG See Protocol SQ ACHS 02/24/20 05/13/20 (formulary)] Multivitamins, Thera [Multivitamin 1 tab PEG/G-TUBE DAILY 02/24/20 05/13/20 (formulary)] Ascorbic Acid [Vitamin C] 500 mg PEG/G-TUBE BID 05/13/20 05/13/20 Aspirin [[place] Aspirin EC] 81 mg PEG/G-TUBE DAILY 05/13/20 05/13/20 Cholecalciferol [Vitamin D3 (25 25 mcg PEG/G-TUBE DAILY 05/13/20 05/13/20 Mcg = 1000 Iu)] Folic Acid 1 mg PEG/G-TUBE DAILY 05/13/20 05/13/20 Furosemide [Lasix] 80 mg PEG/G-TUBE BID 05/13/20 05/13/20 Insulin Detemir (Levemir) [Levemir] 5 unit SQ HS 05/13/20 05/13/20 Ipratropium-Albuterol Nebulize 3 ml INHALATION RT-Q6H PRN 05/13/20 05/13/20 [Duoneb 0.5 mg-3 mg/3 ml Soln] Miconazole Nitrate [Desenex] 1 applic TOPICAL BID 05/13/20 05/13/20 Omeprazole Suspension 2mg/Ml 20 mg PEG/G-TUBE DAILY 05/13/20 05/13/20 Ondansetron [Zofran] 4 mg PEG/G-TUBE Q6H PRN 05/13/20 05/13/20 Thiamine [Vitamin B-1] 100 mg PEG/G-TUBE DAILY 05/13/20 05/13/20 metroNIDAZOLE [Flagyl] 500 mg PEG/G-TUBE TID 05/13/20 05/13/20 Allergies Allergy/AdvReac Type Severity Reaction Status Date / Time No Known Allergies Allergy Verified 05/13/20 16:25 Review of Systems ROS Statement: Those systems with pertinent positive or pertinent negative responses have been documented in the HPI. ROS Other: All systems not noted in ROS Statement are negative. Past Medical History Past Medical History: Hyperlipidemia, Hypertension, Renal Disease Additional Past Medical History / Comment(s): Covid, Anemia ; Chronic kidney disease; ARDS History of Any Multi-Drug Resistant Organisms: VRE Date of last positivie culture/infection: 03/17/20 MDRO Source:: VRE URINE Past Surgical History: Orthopedic Surgery Additional Past Surgical History / Comment(s): Peg tube Past Psychological History: No Psychological Hx Reported Smoking Status: Never smoker Past Alcohol Use History: None Reported Past Drug Use History: None Reported - Past Family History Father Family Medical History: Pulmonary Embolus Additional Family Medical History / Comment(s): Mother History Unknown: Yes Additional Family Medical History / Comment(s): " from old age" age 93 Daughter(s) Family Medical History: Hypertension General Exam Limitations: no limitations Course Vital Signs 05/13/20 05/13/20 14:57 18:21 Temperature 97.8 F Pulse Rate 71 73 Respiratory 20 16 Rate Blood Pressure 143/68 194/76 O2 Sat by Pulse 97 100 Oximetry Medical Decision Making - Lab Data Result diagrams: 05/13/20 16:01 05/13/20 16:01 Lab Results 05/13/20 05/13/20 05/13/20 Range/Units 16:01 16:01 16:01 WBC 9.6 (3.8-10.6) k/uL RBC 3.45 L (3.80-5.40) m/uL Hgb 9.3 L D (11.4-16.0) gm/dL Hct 29.8 L (34.0-46.0) % MCV 86.2 (80.0-100.0) fL MCH 27.0 (25.0-35.0) pg MCHC 31.3 (31.0-37.0) g/dL RDW 17.4 H (11.5-15.5) % Plt Count 319 (150-450) k/uL MPV 7.1 Neutrophils % (Manual) 84 % Lymphocytes % (Manual) 9 % Monocytes % (Manual) 3 % Eosinophils % (Manual) 4 % Neutrophils # (Manual) 8.06 H (1.3-7.7) k/uL Lymphocytes # (Manual) 0.86 L (1.0-4.8) k/uL Monocytes # (Manual) 0.29 (0-1.0) k/uL Eosinophils # (Manual) 0.38 (0-0.7) k/uL Nucleated RBCs 0 (0-0) /100 WBC Manual Slide Review Performed Hypochromasia Slight Poikilocytosis (manual Present Anisocytosis Slight Sodium 127 L (137-145) mmol/L Potassium 4.6 (3.5-5.1) mmol/L Chloride 89 L (98-107) mmol/L Carbon Dioxide 35 H (22-30) mmol/L Anion Gap 3 mmol/L BUN 33 H (7-17) mg/dL Creatinine 2.11 H (0.52-1.04) mg/dL Est GFR (CKD-EPI)AfAm 26 (>60 ml/min/1.73 sqM) Est GFR (CKD-EPI)NonAf 22 (>60 ml/min/1.73 sqM) Glucose 104 H (74-99) mg/dL Plasma Lactic Acid Nico 0.8 (0.7-2.0) mmol/L Calcium 9.1 (8.4-10.2) mg/dL Magnesium 2.0 (1.6-2.3) mg/dL Total Bilirubin 0.4 (0.2-1.3) mg/dL AST 32 (14-36) U/L ALT 13 (4-34) U/L Alkaline Phosphatase 89 (38-126) U/L Total Protein 5.0 L (6.3-8.2) g/dL Albumin 2.7 L (3.5-5.0) g/dL Urine Color Urine Appearance (Clear) Urine pH (5.0-8.0) Ur Specific Ryder (1.001-1.035) Urine Protein (Negative) Urine Glucose (UA) (Negative) Urine Ketones (Negative) Urine Blood (Negative) Urine Nitrite (Negative) Urine Bilirubin (Negative) Urine Urobilinogen (<2.0) mg/dL Ur Leukocyte Esterase (Negative) Urine RBC (0-5) /hpf Urine WBC (0-5) /hpf Urine WBC Clumps (None) /hpf Ur Squamous Epith Cells (0-4) /hpf Coronavirus (PCR) (Not Detectd) 05/13/20 05/13/20 Range/Units 16:27 18:21 WBC (3.8-10.6) k/uL RBC (3.80-5.40) m/uL Hgb (11.4-16.0) gm/dL Hct (34.0-46.0) % MCV (80.0-100.0) fL MCH (25.0-35.0) pg MCHC (31.0-37.0) g/dL RDW (11.5-15.5) % Plt Count (150-450) k/uL MPV Neutrophils % (Manual) % Lymphocytes % (Manual) % Monocytes % (Manual) % Eosinophils % (Manual) % Neutrophils # (Manual) (1.3-7.7) k/uL Lymphocytes # (Manual) (1.0-4.8) k/uL Monocytes # (Manual) (0-1.0) k/uL Eosinophils # (Manual) (0-0.7) k/uL Nucleated RBCs (0-0) /100 WBC Manual Slide Review Hypochromasia Poikilocytosis (manual Anisocytosis Sodium (137-145) mmol/L Potassium (3.5-5.1) mmol/L Chloride (98-107) mmol/L Carbon Dioxide (22-30) mmol/L Anion Gap mmol/L BUN (7-17) mg/dL Creatinine (0.52-1.04) mg/dL Est GFR (CKD-EPI)AfAm (>60 ml/min/1.73 sqM) Est GFR (CKD-EPI)NonAf (>60 ml/min/1.73 sqM) Glucose (74-99) mg/dL Plasma Lactic Acid Nico (0.7-2.0) mmol/L Calcium (8.4-10.2) mg/dL Magnesium (1.6-2.3) mg/dL Total Bilirubin (0.2-1.3) mg/dL AST (14-36) U/L ALT (4-34) U/L Alkaline Phosphatase (38-126) U/L Total Protein (6.3-8.2) g/dL Albumin (3.5-5.0) g/dL Urine Color Yellow Urine Appearance Turbid H (Clear) Urine pH 7.5 (5.0-8.0) Ur Specific Ryder 1.015 (1.001-1.035) Urine Protein 2+ H (Negative) Urine Glucose (UA) Negative (Negative) Urine Ketones Negative (Negative) Urine Blood Moderate H (Negative) Urine Nitrite Negative (Negative) Urine Bilirubin Negative (Negative) Urine Urobilinogen <2.0 (<2.0) mg/dL Ur Leukocyte Esterase Large H (Negative) Urine RBC 75 H (0-5) /hpf Urine WBC >182 H (0-5) /hpf Urine WBC Clumps Moderate H (None) /hpf Ur Squamous Epith Cells 9 H (0-4) /hpf Coronavirus (PCR) Not Detected (Not Detectd) Disposition Clinical Impression: Abnormal laboratory test result Disposition: HOME SELF-CARE Condition: Good Instructions (If sedation given, give patient instructions): Hyponatremia (ED) Is patient prescribed a controlled substance at d/c from ED?: No Referrals: Jordan Forde MD [Primary Care Provider] - 1-2 days Time of Disposition: 20:18
[2020-05-13 16:11] LABS: Anisocytosis Slight; HCT 29.8 % (34.0-46.0); HGB 9.3 gm/dL (11.4-16.0); Hypochromasia Slight; MCHC 31.3 g/dL (31.0-37.0); MCV 86.2 fL (80.0-100.0); Mean Platelet Volume 7.1; Platelet Count 319 k/uL (150-450); RBC 3.45 m/uL (3.80-5.40); RDW 17.4 % (11.5-15.5); WBC 9.6 k/uL (3.8-10.6)
[2020-05-13 16:20] LABS: Albumin 2.7 g/dL (3.5-5.0); Calcium 9.1 mg/dL (8.4-10.2); Potassium 4.6 mmol/L (3.5-5.1); Total Bilirubin 0.4 mg/dL (0.2-1.3)
[2020-05-13 16:53] LABS: Eosinophils # (M) 0.38 k/uL (0-0.7); Lymphocytes # (M) 0.86 k/uL (1.0-4.8); Monocytes # (M) 0.29 k/uL (0-1.0); Neutrophils # (M) 8.06 k/uL (1.3-7.7); Neutrophils % (M) 84 %; Nucleated Red Blood Cells 0 /100 WBC (0-0); Poikilocytosis (M) Present; Total Cells Counted 100
--- NOTE | 2020-05-13 18:36 | CT ---
EXAMINATION TYPE: CT abdomen pelvis wo con DATE OF EXAM: 05/13/2020 COMPARISON: None available. HISTORY: Generalized pain. CT DLP: 1596.2 mGycm Automated exposure control for dose reduction was used. TECHNIQUE: Helical acquisition of images was performed from the lung bases through the pelvis. FINDINGS: LUNG BASES: Bilateral small pleural effusions with adjacent atelectasis. Additional mild hazy opaciti es in the lung bases. LIVER/GB: No significant abnormality is appreciated. PANCREAS: No significant abnormality is seen. SPLEEN: No significant abnormality is seen. Small splenule is seen. ADRENALS: No significant abnormality is seen. KIDNEYS: No hydronephrosis or nephrolithiasis. There are multiple simple appearing, bilateral renal c ysts measuring up to 2.7 cm. FREE AIR: No free air is visualized RETROPERITONEAL ADENOPATHY: None visualized REPRODUCTIVE ORGANS: No significant abnormality is seen URINARY BLADDER: Urinary bladder is decompressed by Pablo catheter. PELVIC ADENOPATHY: None visualized. OSSEOUS STRUCTURES: No significant abnormality is seen. BOWEL: There is demonstration of a G-tube. Also note of right ostomy with partially imaged short cat heter terminating within the ostomy. Additional right peritoneal pigtail catheter terminating in the lower pelvis is seen. No bowel obstruction. Colonic diverticulosis is seen. OTHER: Moderate confluent edema about the right lateral abdominal wall subcutaneous soft tissues. Add itional mild to moderate anasarca about the abdomen/pelvis. No evidence of soft tissue gas. Sacral de cubitus ulcer with mild presacral edema, probably chronic. IMPRESSION: CONFLUENT EDEMA ABOUT THE RIGHT LATERAL ABDOMINAL WALL SUBCUTANEOUS SOFT TISSUES. NO SOFT TISSUE GAS. CORRELATE FOR CELLULITIS. ADDITIONAL ANASARCA. SMALL TO MODERATE BILATERAL PLEURAL EFFUSIONS WITH ADJACENT OPACITIES. NO DEFINITE ACUTE ABNORMALITY OF THE ABDOMEN/PELVIS. CHRONIC FINDINGS ABOVE.
[2020-05-13 18:45] LABS: Appearance,Urine Turbid (Clear); Bilirubin,Urine Negative (Negative); Blood,Urine Moderate (Negative); Color,Urine Yellow; Glucose,Urine (UA) Negative (Negative); Ketones,Urine Negative (Negative); Leukocyte Esterase,Urine Large (Negative); Nitrite,Urine Negative (Negative); PH, Urine 7.5 (5.0-8.0); Protein,Urine 2+ (Negative); RBC,Urine 75 /hpf (0-5); Specific Gravity,Urine 1.015 (1.001-1.035); Squamous Epithelial Cell,Urine 9 /hpf (0-4); Urobilinogen,Urine <2.0 mg/dL (<2.0); WBC,Urine >182 /hpf (0-5)
[2020-05-13] MEDS ORDERED: SODIUM CHLORIDE 0.9% 1,000 ML IV STA (20:16)
[2020-05-13 20:58] VITALS: BP 156/76; PULSE 74; RESP 18; TEMP 98.3
== END 2020-05-13 22:57 | disposition home or self-care (01) ==
LOC: EC 14:51
DX: R79.9 Abnormal finding of blood chemistry, unspecified (principal); I12.9 Hypertensive chronic kidney disease with stage 1 through stage 4 chronic kidney disease, or unspecified chronic kidney disease; N18.9 Chronic kidney disease, unspecified; E78.5 Hyperlipidemia, unspecified; Z79.4 Long term (current) use of insulin; Z79.899 Other long term (current) drug therapy; Z79.82 Long term (current) use of aspirin; Z20.822 Contact with and (suspected) exposure to COVID-19
CPT/HCPCS: 36415; 74176; 80053; 81001; 83605; 83690; 83735; 85025; 87086; 87635; 93005; 96360; 99284